=== PATIENT | female | born 1945 | race Caucasian/White ===

== ENCOUNTER 2021-04-21 22:18 | Inpatient (IN) | payer MEDICARE, SELFPAY ==
[2021-04-22 00:30] VITALS: BMI 25.9
[2021-04-22] MEDS: traZODone HCL 50 MG TABLET PO (00:40)
--- NOTE | 2021-04-22 01:36 | PC.ADMIT ---
Admitted a 75 year old female patient dressed in a kimberly per stretcher accompanied by ambulance staff.Patient signs the CV and all other consents.Patient is alert and oriented x4,pleasant on approach and cooperative with the admission process.Patient came from [facility] presented in ED for concern about being home alone and is admitted to hospital.Patient w/ chronic depression and recurring suicidal ideation,although She is currently no active SI and worried if she goes home she would have worse SI and possibly become active.She also doesn't have anyone there to help her at home w/ medication access as it is in a lock box.Patient denies pain or medical concerns.Patient skin is good,no bruises or open areas.No acute SOB, abdomen soft non tender w/ positive bowel sound in 4 quadrants and no edema noted.Patient is independent w/ ADL'S.Patient said she sometimes uses a cane when ambulating since her balance is sometimes not good.She wears eyeglasses and has upper dentures.Patient denies SI/AH/VH.patient contract for safety
[2021-04-22 06:22] LABS: MANUAL DIFF FLAG NO
[2021-04-22 06:24] LABS: Basophils Absolute Auto 0.1 X10*3/uL (0.0-0.2); Basophils Percent Auto 0.8 % (0-2); Eosinophils Absolute Auto 0.3 X10*3/uL (0.0-0.4); Eosinophils Percent Auto 3.3 % (0-4); Hematocrit 41.9 % (37-47); Hemoglobin 14.5 g/dl (12.0-16.0); Imm Gran Abs Auto 0.05 X10*3/uL (0.00-0.03); Imm Gran Pct Auto 0.6 % (0.0-0.4); Lymphocytes Absolute Auto 1.2 X10*3/uL (1.2-4.9); Lymphocytes Percent Auto 15.4 % (20-40); Mean Corpuscular HGB Conc 34.6 g/dl (31.0-35.0); Mean Corpuscular Hemoglobin 30.7 pg (27.0-33.0); Mean Corpuscular Volume 88.8 fL (80-98); Mean Platelet Volume 9.7 fL (9.4-12.3); Monocytes Absolute Auto 0.8 X10*3/uL (0.1-1.2); Monocytes Percent Auto 10.3 % (2-11); Neutrophils Absolute Auto 5.5 X10*3/uL (2.0-8.3); Neutrophils Percent Auto 69.6 % (45-73); Platelet Count 297 X10*3/uL (160-400); Red Blood Count 4.72 X10*6/uL (4.20-5.50); Red Cell Distribution Width 13.8 % (11.0-16.0); White Blood Count 7.9 X10*3/uL (4.8-10.8)
[2021-04-22 06:59] LABS: Alanine Aminotransferase 10 U/L (0-31); Albumin Level 4.1 g/dL (3.5-5.0); Alkaline Phosphatase 53 U/L (39-117); Anion Gap 14 (12-20); Aspartate Amino Transferase 13 U/L (5-31); Bilirubin Total 0.4 mg/dL (0.0-1.0); Blood Urea Nitrogen 14 mg/dL (9-16); Calcium 9.5 mg/dL (8.4-10.2); Carbon Dioxide 22 mmol/L (22-29); Chloride 105 mmol/L (96-108); Cholesterol 167 mg/dL; Creatinine Clr Calc Pharmacy 70.5; Estimated Glomerular Filt Rate > 60; Glucose Fasting 125 mg/dL (60-99); HDL Cholesterol 38 mg/dL; LDL Cholesterol Calculated 103 mg/dl; Potassium 4.1 mmol/L (3.3-5.1); Sodium 137 mmol/L (135-145); Total Protein 6.9 g/dL (6.5-8.0); Triglycerides 132 mg/dL
[2021-04-22 07:19] LABS: Estimated Average Glucose 134 mg/dL; Hemoglobin A1c % 6.3 %
[2021-04-22 07:25] VITALS: BP 184/84; PULSE 66; RESP 17; TEMP 36.4; O2SAT 94
[2021-04-22] MEDS: FLUoxetine HCl 20 MG CAPSULE 60 MG PO (09:48)
[2021-04-22] MEDS: risperiDONE 1 MG TABLET PO (09:50)
[2021-04-22 10:34] VITALS: BP 116/58; PULSE 109
[2021-04-22] MEDS: cloNIDine HCL 0.2 MG TABLET PO (10:34)
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
[2021-04-22 18:00] VITALS: BP 127/93; PULSE 99; RESP 16; TEMP 35.9; O2SAT 97
[2021-04-22] MEDS: Atorvastatin Calcium 20 MG TABLET PO (20:29)
[2021-04-22] MEDS: chlorproMAZINE HCl 25 MG TABLET PO (20:29)
[2021-04-22] MEDS: risperiDONE 2 MG TABLET PO (20:29)
[2021-04-23] MEDS: chlorproMAZINE HCl 25 MG TABLET PO ×3 (03:29→21:12)
[2021-04-23 06:00] VITALS: BP 115/71; PULSE 101; RESP 16; TEMP 37.1; O2SAT 98
[2021-04-23 07:43] LABS: Estimated Average Glucose 137 mg/dL; Hemoglobin A1c % 6.4 %
[2021-04-23 07:48] LABS: Cholesterol 171 mg/dL; HDL Cholesterol 38 mg/dL; LDL Cholesterol Calculated 114 mg/dl; Triglycerides 97 mg/dL
[2021-04-23 08:06] LABS: TSH reflex Free T4 0.53 uIU/mL (0.32-4.0)
[2021-04-23 08:26] LABS: Reflex LDLD? No
[2021-04-23] MEDS: FLUoxetine HCl 20 MG CAPSULE 60 MG PO (09:10)
[2021-04-23] MEDS: risperiDONE 1 MG TABLET PO (09:11)
[2021-04-23 09:12] VITALS: BP 115/71; PULSE 101
[2021-04-23] MEDS: Metoprolol Succinate ER 12.5 MG HALFTAB.ER.24H PO (09:12)
[2021-04-23] MEDS: Fluticasone/Vilanterol 100/25 BLST.W.DEV 1 PUFF INHALE (09:13)
--- NOTE | 2021-04-23 09:51 | P.CNHOSGPS_ITS ---
History of Present Illness Data of Consult Service Date: 04/23/21 Requesting physician: [facility] Psychiatry Primary Care Provider: Josiah Mora MD HPI Reason for consult: medical H+P Medical H+P requested for this 75yo F with COPD, HTN, hx TIA, hx hyperCA/hyperPTH s/p PTX, hx multiple colectomies with eventual reanastomosis for multiple precancerous polyps, s/p PPM for arrhythmia, prediabetes, depression, and PTSD admitted [facility] for SI after her was hospitalized at [facility] for [facility]. Currently denies fever, chills, cough, dyspnea, chest pain, palpitations, abdominal pain, nausea, or vomiting. Review of Systems Review of Systems: Yes all other systems are reviewed and are negative [facility] Medical History COPD (chronic obstructive pulmonary disease) Depression Essential hypertension Hyperlipidemia Prediabetes PTSD (post-traumatic stress disorder) TIA (transient ischemic attack) Tobacco abuse Pertinent family history: mother and father had CHF Surgical History History of colectomy History of parathyroidectomy Social History Household Members: Spouse Housing: Apartment Do you presently have visiting nurse or other home services: No Patient Tobacco Use Status: Current everyday Tobacco user Tobacco use type: Cigarette Smoked in Last 30 Days: Yes e-Cigarette/Vaping Use: Currently Using Patient Interested in Nicotine Replacement: No Patient Given Instructions on How to Stop Smoking: Yes Date Education Initiated: 04/21/21 Second Hand Smoke Exposure: No Use of substances other than those prescribed or required for medical reasons: No Substance Use Type: Prescription Drugs and Caffiene Currently Displaying Signs/Symptoms of Drug Intoxication Withdrawal: No Any prior treatment program specific to substance use: No Have you been hit, kicked, punched, or otherwise hurt by someone within the past year? If so, by whom?: No Do you feel safe in your current relationship?: Yes Is there a partner from a previous relationship who is making you feel unsafe now?: No Are you made to feel afraid or neglected: No Restorationist Healthcare Practices: restoration Advance Directives: No Advance Directives Information Provided: No Do you have thoughts of harming others: None Do you have a plan to hurt others: No Plan Recently lost weight without trying: No How much weight loss: Not applicable Eating poorly because of decreased appetite: No Nutrition screen score: 0 Nutrition Risks: No Nutritional Risk Patient : No : No Poor oral hygiene: No Meds Allergies Allergy/AdvReac Type Severity Reaction Status Date / Time adhesive AdvReac Unknown Verified 04/21/21 23:21 aspirin AdvReac Unknown Verified 04/21/21 23:20 epinephrine AdvReac Unknown Verified 04/21/21 23:21 Active Medications: Current Medications Acetaminophen (Acetaminophen 325 Mg Tablet) 650 mg PO Q6H PRN PRN Reason: Headache/Pain Mild Scale (1-3) Al Hydroxide/Mg Hydroxide (Magnesium Hydrox/Alum Hydrox 30 Ml Oral.Susp) 30 ml PO Q6H PRN PRN Reason: Heartburn/Nausea Atorvastatin Calcium (Atorvastatin Calcium 20 Mg Tablet) 20 mg PO BEDTIME [facility] Last Admin: 04/22/21 20:29 Dose: 20 mg Documented by: Chlorpromazine HCl (Chlorpromazine Hcl 25 Mg Tablet) 25 mg PO Q6H PRN PRN Reason: anxiety Last Admin: 04/23/21 03:29 Dose: 25 mg Documented by: Clonidine HCl (Clonidine Hcl 0.2 Mg Tablet) 0.2 mg PO BID PRN; Protocol PRN Reason: anxiety Last Admin: 04/22/21 10:34 Dose: 0.2 mg Documented by: Fluoxetine HCl (Fluoxetine Hcl 20 Mg Capsule) 60 mg PO DAILY [facility] Last Admin: 04/23/21 09:10 Dose: 60 mg Documented by: Fluticasone/Vilanterol (Fluticasone/Vilanterol 100/25 Blst.W.Dev) 1 puff INHALE RDAILY [facility] Last Admin: 04/23/21 09:13 Dose: 1 puff Documented by: Hydroxyzine HCl (Hydroxyzine Hcl 25 Mg Tablet) 25 mg PO Q6H PRN PRN Reason: Anxiety Magnesium Hydroxide (Milk Of Magnesia 30 Ml Oral.Susp) 30 ml PO DAILY PRN PRN Reason: Constipation Metoprolol Succinate (Metoprolol Succinate Er 12.5 Mg Halftab.Er.24h) 12.5 mg PO DAILY [facility]; Protocol Last Admin: 04/23/21 09:12 Dose: 12.5 mg Documented by: Risperidone (Risperidone 2 Mg Tablet) 2 mg PO BEDTIME [facility] Last Admin: 04/22/21 20:29 Dose: 2 mg Documented by: Risperidone (Risperidone 1 Mg Tablet) 1 mg PO DAILY [facility] Last Admin: 04/23/21 09:11 Dose: 1 mg Documented by: Tiotropium Brady (Tiotropium Brady 18 Mcg Cap.W.Dev) 2 puff INHALE RDAILY [facility] Last Admin: 04/23/21 09:15 Dose: 2 puff Documented by: Trazodone HCl (Trazodone Hcl 50 Mg Tablet) 50 mg PO BEDTIME PRN PRN Reason: Insomnia Last Admin: 04/22/21 00:40 Dose: 50 mg Documented by: Home Medications Medication Instructions Recorded Confirmed Last Taken Type acetaminophen 325 mg tablet 325 mg PO MDD Q 6 HOURS 04/22/21 Unknown History aspirin 81 mg tablet 81 mg PO DAILY 04/22/21 04/22/21 Unknown History clonazepam 0.5 mg tablet 0.5 mg PO DAILY 04/22/21 04/22/21 Unknown History fluoxetine 60 mg tablet 60 mg PO QAM 04/22/21 04/22/21 Unknown History metoprolol tartrate 25 mg tablet 12.5 mg PO DAILY 04/22/21 04/22/21 Unknown History risperidone 1 mg tablet 1 mg PO DAILY 04/22/21 04/22/21 Unknown History risperidone 2 mg tablet 2 mg PO BEDTIME 04/22/21 04/22/21 Unknown History rosuvastatin 10 mg tablet 10 mg PO DAILY 04/22/21 04/22/21 Unknown History tiotropium bromide 1.25 INHALATION DAILY [facility] 2 puffs 04/22/21 Unknown History mcg/actuation mist for inhalation Results Labs CBC and Chem 7: 04/22/21 06:06 04/22/21 06:06 Labs: Laboratory Results - last 24 hr 04/23/21 04/23/21 04/23/21 07:05 07:05 07:05 Estimat Average Glucose 137 Hemoglobin A1c % 6.4 Triglycerides 97 Cholesterol 171 LDL Cholesterol, Calc 114 HDL Cholesterol 38 TSH 0.53 Assessment and Plan (1) COPD (chronic obstructive pulmonary disease): Status: Acute 75yo F with COPD, HTN, hx TIA, hx hyperCA/hyperPTH s/p PTX, hx multiple colectomies with eventual reanastomosis for multiple precancerous polyps, s/p PPM for arrhythmia, prediabetes, depression, and PTSD admitted to [facility] for SI # COPD - continue Spiriva, Breo; add prn albuterol # HTN - continue metoprolol # HLD # hx TIA - continue statin # tobacco abuse - smokes 6-8 cig/d; declines NRT # depression/PTSD - medications as per psychiatry team Thank you for this consultation. We are signing off for now. Please get in touch with us if any new medical issues arise. Physical Exam Vital Signs: Last Vital Signs Temp 96.7 F L 04/22/21 18:00 Pulse 101 H 04/23/21 09:12 Resp 16 04/22/21 18:00 BP 115/71 04/23/21 09:12 Pulse Ox 97 04/22/21 18:00 Body Mass Index 25.9 Gen: in no acute distress HEENT: sclera anicteric, moist mucus membranes Neck: supple, no LAD or goiter Lungs: clear to auscultation bilaterally Heart: regular rate and rhythm, no murmurs Abd: soft, non-tender, non-distended Ext: no edema Skin: warm/well-perfused Neuro: alert and oriented x3, no focal findings Psych: appropriate affect Neuro Cranial nerves: Yes CN's II-XII intact bilaterally
--- NOTE | 2021-04-23 12:58 | P.PNPSI_ITS ---
Subjective Subjective Date of Service: 04/23/21 Reason For Visit: depressive disorder Interim History: Patient seen and discussed with team. Patient evaluated this morning and upon interview she reports she is feeling better. Found out her is now at [facility] and the blood clot is dissipating, he is breathing better. Daughter is coming to visit them both, should be in [place] today. Says the thorazine helps, im feeling okay. Says sleep was poor, I had a rough night, woke up from a terrible dream and felt very disoriented. Discussed that she is adjusting to a new environment, wants to trial melatonin as she has a friend who uses it. Still worrying about her , as he may need surgery. In the milieu, patient is safe and appropriate in behavior. Denies SI/SIB/HI upon inquiry. Denies irritability or assaultive ideation. Says she feels safe. Medication Compliance: Yes Side effects from medications: No Attending Groups: Yes Review of Systems Acute medical concerns: No Medical Review of Systems: unchanged Mental Status Exam Mental Status Exam Narrative: A&O. Well groomed, good hygiene, normal body habitus. Good eye contact, attentive. No Tics or Tremors. No abnormal involuntary movements. Calm, cooperative, engaged. Non-pressured speech, spontaneous with regular rate and rhythm, normal volume and prosody. No prolonged speech latency or dysarthria. Mood is ?depressed,? affect is anxious, nervous. Endorses SI with plan to OD on medications and intent if she is discharged home. Denies SIB/HI upon inquiry. Denies A/VH or delusional thought content. Thoughts are coherent, organized. No known cognitive or memory impairment. Insight/ Judgment fair and adequate. Diagnostics Vital Signs (24Hr): Vital Signs - 24 hr 04/22/21 18:00 04/23/21 06:00 04/23/21 09:12 Temperature 96.7 F L 98.8 F Pulse Rate 99 101 H 101 H Respiratory Rate 16 16 Blood Pressure 127/93 H 115/71 115/71 Pulse Oximetry 97 98 Body Mass Index 25.9 Labs Results: 04/22/21 06:06 04/22/21 06:06 Labs: Laboratory Results - last 48 hr 04/22/21 04/22/21 04/22/21 06:06 06:06 06:06 WBC 7.9 RBC 4.72 Hgb 14.5 Hct 41.9 MCV 88.8 MCH 30.7 MCHC 34.6 RDW 13.8 Plt Count 297 MPV 9.7 Immature Gran % (Auto) 0.6 H Neut % (Auto) 69.6 Lymph % (Auto) 15.4 L Roberts % (Auto) 10.3 Eos % (Auto) 3.3 Baso % (Auto) 0.8 Lymph # (Auto) 1.2 Roberts # (Auto) 0.8 Eos # (Auto) 0.3 Baso # (Auto) 0.1 Abs Immat Gran (auto) 0.05 H Absolute Neuts (auto) 5.5 Absolute Nucleated RBC 0.000 Nucleated RBC % (auto) 0.0 Sodium 137 Potassium 4.1 Chloride 105 Carbon Dioxide 22 Anion Gap 14 BUN 14 Creatinine 0.72 Estim Creat Clear Calc 70.5 Estimated GFR > 60 Fasting Glucose 125 H Estimat Average Glucose 134 Hemoglobin A1c % 6.3 Calcium 9.5 Total Bilirubin 0.4 AST 13 ALT 10 Alkaline Phosphatase 53 Total Protein 6.9 Albumin 4.1 Triglycerides 132 Cholesterol 167 LDL Cholesterol, Calc 103 HDL Cholesterol 38 TSH 04/23/21 04/23/21 04/23/21 07:05 07:05 07:05 WBC RBC Hgb Hct MCV MCH MCHC RDW Plt Count MPV Immature Gran % (Auto) Neut % (Auto) Lymph % (Auto) Roberts % (Auto) Eos % (Auto) Baso % (Auto) Lymph # (Auto) Roberts # (Auto) Eos # (Auto) Baso # (Auto) Abs Immat Gran (auto) Absolute Neuts (auto) Absolute Nucleated RBC Nucleated RBC % (auto) Sodium Potassium Chloride Carbon Dioxide Anion Gap BUN Creatinine Estim Creat Clear Calc Estimated GFR Fasting Glucose Estimat Average Glucose 137 Hemoglobin A1c % 6.4 Calcium Total Bilirubin AST ALT Alkaline Phosphatase Total Protein Albumin Triglycerides 97 Cholesterol 171 LDL Cholesterol, Calc 114 HDL Cholesterol 38 TSH 0.53 Medications Medications Current Medications Acetaminophen (Acetaminophen 325 Mg Tablet) 650 mg PO Q6H PRN PRN Reason: Headache/Pain Mild Scale (1-3) Al Hydroxide/Mg Hydroxide (Magnesium Hydrox/Alum Hydrox 30 Ml Oral.Susp) 30 ml PO Q6H PRN PRN Reason: Heartburn/Nausea Albuterol Sulfate (Albuterol Sulfate 90 Mcg 8 Gm Inhaler) 2 puff INHALE Q4H PRN PRN Reason: Shortness of Breath/Wheezing Atorvastatin Calcium (Atorvastatin Calcium 20 Mg Tablet) 20 mg PO BEDTIME [facility]JA Last Admin: 04/22/21 20:29 Dose: 20 mg Documented by: Chlorpromazine HCl (Chlorpromazine Hcl 25 Mg Tablet) 25 mg PO Q6H PRN PRN Reason: anxiety Last Admin: 04/23/21 03:29 Dose: 25 mg Documented by: Clonidine HCl (Clonidine Hcl 0.2 Mg Tablet) 0.2 mg PO BID PRN; Protocol PRN Reason: anxiety Last Admin: 04/22/21 10:34 Dose: 0.2 mg Documented by: Fluoxetine HCl (Fluoxetine Hcl 20 Mg Capsule) 60 mg PO DAILY [facility] Last Admin: 04/23/21 09:10 Dose: 60 mg Documented by: Fluticasone/Vilanterol (Fluticasone/Vilanterol 100/25 Blst.W.Dev) 1 puff INHALE RDAILY [facility] Last Admin: 04/23/21 09:13 Dose: 1 puff Documented by: Hydroxyzine HCl (Hydroxyzine Hcl 25 Mg Tablet) 25 mg PO Q6H PRN PRN Reason: Anxiety Magnesium Hydroxide (Milk Of Magnesia 30 Ml Oral.Susp) 30 ml PO DAILY PRN PRN Reason: Constipation Melatonin (Melatonin 3 Mg Tablet) 3 mg PO BEDTIME [facility] Metoprolol Succinate (Metoprolol Succinate Er 12.5 Mg Halftab.Er.24h) 12.5 mg PO DAILY [facility]; Protocol Last Admin: 04/23/21 09:12 Dose: 12.5 mg Documented by: Risperidone (Risperidone 2 Mg Tablet) 2 mg PO BEDTIME [facility] Last Admin: 04/22/21 20:29 Dose: 2 mg Documented by: Risperidone (Risperidone 1 Mg Tablet) 1 mg PO DAILY [facility] Last Admin: 04/23/21 09:11 Dose: 1 mg Documented by: Tiotropium [place] (Tiotropium [place] 18 Mcg Cap.W.Dev) 2 puff INHALE RDAILY [facility] Last Admin: 04/23/21 09:15 Dose: 2 puff Documented by: Trazodone HCl (Trazodone Hcl 50 Mg Tablet) 50 mg PO BEDTIME PRN PRN Reason: Insomnia Last Admin: 04/22/21 00:40 Dose: 50 mg Documented by: Allergies Allergies Allergy/AdvReac Type Severity Reaction Status Date / Time adhesive AdvReac Unknown Verified 04/21/21 23:21 aspirin AdvReac Unknown Verified 04/21/21 23:20 epinephrine AdvReac Unknown Verified 04/21/21 23:21 Assessment & Plan Assessment & Plan (1) MDD (major depressive disorder), recurrent episode, moderate: Status: Acute Code(s): F33.1 - Major depressive disorder, recurrent, moderate (2) PTSD (post-traumatic stress disorder): Status: Acute Code(s): F43.10 - Post-traumatic stress disorder, unspecified Assessment and Plan: Pt is a 75 y.o. Who carries a dx of MDD recurrent and PTSD. She presented to [facility] on 04/[facility]21 after her contacted [facility] to do a wellness check on her after he was hospitalized at [place] for thrombosis. Katheryn endorsed sx of SI without plan or intent and increased anxiety. She current presents with sx of anxiety, SI with plan to OD on medication and intent and depressed mood. Has long hx of chronic depression, feelings of guilt and hopelessness. Hx of multiple hospitalizations for SI and plan to OD on medications. Meds are kept in locked box at home. No substance use or alcohol abuse reported. Plan: Continue OP regimen of risperidone, prozac, and PRN clonidine due to reported benefit for mood and anxiety sx. Start thorazine 25 mg Q6H PRN for anxiety, perseverative suicidal thoughts as she reports past benefit on this medication. Pt reports feeling safe in the hospital. Start melatonin 3 mg QHS for sleep maintenance. Monitor response to medications. Monitor for safety in the milieu. Discharge on stabilization. Patient seen. Chart reviewed. Discussed with team. Obtain collateral contact info?as needed Greater than 50% of the session was spent on counseling and/or coordination of care Reason for contiued inpatient stay Substantial Risk for: harm to self, rapid decompensation and med/psych decompensation
[2021-04-23 18:00] VITALS: BP 127/63; PULSE 80; RESP 20; TEMP 36.3; O2SAT 98
[2021-04-23] MEDS: risperiDONE 2 MG TABLET PO (21:08)
[2021-04-23] MEDS: Atorvastatin Calcium 20 MG TABLET PO (21:08)
[2021-04-23] MEDS: Melatonin 3 MG TABLET PO (21:08)
[2021-04-24 06:00] VITALS: BP 130/67; PULSE 104; RESP 14; TEMP 36.7; O2SAT 94
[2021-04-24] MEDS: risperiDONE 1 MG TABLET PO (08:02)
[2021-04-24] MEDS: FLUoxetine HCl 20 MG CAPSULE 60 MG PO (08:03)
[2021-04-24 09:05] VITALS: BP 130/67; PULSE 104
[2021-04-24] MEDS: Metoprolol Succinate ER 12.5 MG HALFTAB.ER.24H PO (09:05)
--- NOTE | 2021-04-24 14:05 | HO.PSYCHPN ---
Subjective Subjective Date of Service: 04/24/21 Reason For Visit: depressive disorder Subjective Notes: Conditional Voluntary Interim History: The nursing staff reported the patient slept well, she was able participating a few groups. On interview, the patient denies new symptoms she feels anxious and dysphoric but she is able to contract for safety. She reported that she is anxious since her is going for a procedure today at [facility]. She agreed to continue treatment. Medication Compliance: Yes Side effects from medications: No Attending Groups: Yes Review of Systems Acute medical concerns: No Medical Review of Systems: unchanged Mental Status Exam Mental Status Exam Patient Appearance: Well Grooomed Patient Orientation: Person and Situation Level of Consciousness: Awake and Appropriate Patient Behavior: Cooperative Mood Description: Depressed Affect Description: Constricted Patient Cognition Impaired: No Ability to Follow Directions: Good Speech Pattern: Clear Hallucinations: None Delusions: Not Present Thought Process: Goal Oriented Thought Content: positive for Circumstantial Depressive Symptoms: Increased Anxiety, Difficulty Sleeping and Changes in Appetite Judgement: Fair Diagnostics Vital Signs (24Hr): Vital Signs - 24 hr 04/23/21 18:00 04/24/21 06:00 04/24/21 09:05 Temperature 97.3 F 98.0 F Pulse Rate 80 104 H 104 H Respiratory Rate 20 14 Blood Pressure 127/63 130/67 130/67 Pulse Oximetry 98 94 Body Mass Index 25.9 Labs Results: 04/22/21 06:06 04/22/21 06:06 Labs: Laboratory Results - last 48 hr 04/23/21 04/23/21 04/23/21 07:05 07:05 07:05 Estimat Average Glucose 137 Hemoglobin A1c % 6.4 Triglycerides 97 Cholesterol 171 LDL Cholesterol, Calc 114 HDL Cholesterol 38 TSH 0.53 Medications Medications Current Medications Acetaminophen (Acetaminophen 325 Mg Tablet) 650 mg PO Q6H PRN PRN Reason: Headache/Pain Mild Scale (1-3) Al Hydroxide/Mg Hydroxide (Magnesium Hydrox/Alum Hydrox 30 Ml Oral.Susp) 30 ml PO Q6H PRN PRN Reason: Heartburn/Nausea Albuterol Sulfate (Albuterol Sulfate 90 Mcg 8 Gm Inhaler) 2 puff INHALE Q4H PRN PRN Reason: Shortness of Breath/Wheezing Atorvastatin Calcium (Atorvastatin Calcium 20 Mg Tablet) 20 mg PO BEDTIME [facility] Last Admin: 04/23/21 21:08 Dose: 20 mg Documented by: Chlorpromazine HCl (Chlorpromazine Hcl 25 Mg Tablet) 25 mg PO Q6H PRN PRN Reason: anxiety Last Admin: 04/23/21 21:12 Dose: 25 mg Documented by: Clonidine HCl (Clonidine Hcl 0.2 Mg Tablet) 0.2 mg PO BID PRN; Protocol PRN Reason: anxiety Last Admin: 04/22/21 10:34 Dose: 0.2 mg Documented by: Fluoxetine HCl (Fluoxetine Hcl 20 Mg Capsule) 60 mg PO DAILY [facility] Last Admin: 04/24/21 08:03 Dose: 60 mg Documented by: Fluticasone/Vilanterol (Fluticasone/Vilanterol 100/25 Blst.W.Dev) 1 puff INHALE RDAILY [facility] Last Admin: 04/23/21 09:13 Dose: 1 puff Documented by: Hydroxyzine HCl (Hydroxyzine Hcl 25 Mg Tablet) 25 mg PO Q6H PRN PRN Reason: Anxiety Magnesium Hydroxide (Milk Of Magnesia 30 Ml Oral.Susp) 30 ml PO DAILY PRN PRN Reason: Constipation Melatonin (Melatonin 3 Mg Tablet) 3 mg PO BEDTIME [facility] Last Admin: 04/23/21 21:08 Dose: 3 mg Documented by: Metoprolol Succinate (Metoprolol Succinate Er 12.5 Mg Halftab.Er.24h) 12.5 mg PO DAILY [facility]; Protocol Last Admin: 04/24/21 09:05 Dose: 12.5 mg Documented by: Risperidone (Risperidone 2 Mg Tablet) 2 mg PO BEDTIME [facility] Last Admin: 04/23/21 21:08 Dose: 2 mg Documented by: Risperidone (Risperidone 1 Mg Tablet) 1 mg PO DAILY [facility] Last Admin: 04/24/21 08:02 Dose: 1 mg Documented by: Tiotropium [place] (Tiotropium [place] 18 Mcg Cap.W.Dev) 2 puff INHALE RDAILY [facility] Last Admin: 04/23/21 09:15 Dose: 2 puff Documented by: Trazodone HCl (Trazodone Hcl 50 Mg Tablet) 50 mg PO BEDTIME PRN PRN Reason: Insomnia Last Admin: 04/22/21 00:40 Dose: 50 mg Documented by: Allergies Allergies Allergy/AdvReac Type Severity Reaction Status Date / Time adhesive AdvReac Unknown Verified 04/21/21 23:21 aspirin AdvReac Unknown Verified 04/21/21 23:20 epinephrine AdvReac Unknown Verified 04/21/21 23:21 Assessment & Plan Assessment & Plan (1) MDD (major depressive disorder), recurrent episode, moderate: Status: Acute Code(s): F33.1 - Major depressive disorder, recurrent, moderate (2) PTSD (post-traumatic stress disorder): Status: Acute Code(s): F43.10 - Post-traumatic stress disorder, unspecified Assessment and Plan: Pt is a 75 y.o. Who carries a dx of MDD recurrent and PTSD. She presented to [facility] crisis on 04/20/21 after her contacted [facility] to do a wellness check on her after he was hospitalized at [place] for thrombosis. Katheryn endorsed sx of SI without plan or intent and increased anxiety. She current presents with sx of anxiety, SI with plan to OD on medication and intent and depressed mood. Has long hx of chronic depression, feelings of guilt and hopelessness. Hx of multiple hospitalizations for SI and plan to OD on medications. Meds are kept in locked box at home. No substance use or alcohol abuse reported. Plan: Continue OP regimen of risperidone, prozac, and PRN clonidine due to reported benefit for mood and anxiety sx. Start thorazine 25 mg Q6H PRN for anxiety, perseverative suicidal thoughts as she reports past benefit on this medication. Pt reports feeling safe in the hospital. Start melatonin 3 mg QHS for sleep maintenance. Monitor response to medications. Monitor for safety in the milieu. Discharge on stabilization. Patient seen. Chart reviewed. Discussed with team. Obtain collateral contact info?as needed Greater than 50% of the session was spent on counseling and/or coordination of care Reason for contiued inpatient stay Substantial Risk for: harm to self, inability to function, rapid decompensation and med/psych decompensation
--- NOTE | 2021-04-24 15:06 | MHC.CLN ---
NUTRITION DIET=REGULAR. DIETARY SUPPLEMENT PER PROVIDER ENSURE BID TO PROVIDE 700 KCAL, 40 G PROTEIN. SUSPECT DECLINE IN RECENT INTAKE WITH 'S HOSPITALIZATION.
[2021-04-24 18:00] VITALS: BP 183/88; PULSE 80; RESP 18; TEMP 36.9; O2SAT 94
[2021-04-24] MEDS: Melatonin 3 MG TABLET PO (20:25)
[2021-04-24] MEDS: Atorvastatin Calcium 20 MG TABLET PO (20:26)
[2021-04-24] MEDS: risperiDONE 2 MG TABLET PO (20:26)
[2021-04-24] MEDS: chlorproMAZINE HCl 25 MG TABLET PO (21:13)
[2021-04-24 23:23] VITALS: BP 174/83; PULSE 76
[2021-04-24] MEDS: traZODone HCL 50 MG TABLET PO (23:23)
[2021-04-24] MEDS: cloNIDine HCL 0.2 MG TABLET PO (23:23)
[2021-04-25] MEDS: risperiDONE 1 MG TABLET PO (07:56)
[2021-04-25] MEDS: FLUoxetine HCl 20 MG CAPSULE 60 MG PO (07:56)
[2021-04-25] MEDS: Metoprolol Succinate ER 12.5 MG HALFTAB.ER.24H PO (07:56)
[2021-04-25] MEDS: Fluticasone/Vilanterol 100/25 BLST.W.DEV 1 PUFF INHALE (08:19)
[2021-04-25 08:27] VITALS: BP 111/60; PULSE 80; RESP 16; TEMP 36.6; O2SAT 99
--- NOTE | 2021-04-25 15:03 | P.PNPSI_ITS ---
Subjective Subjective Date of Service: 04/25/21 Reason For Visit: depressive disorder Interim History: The nursing staff reported that the patient slept well. But later she needed cleaning and trazodone for sleep at 23:30. She was pleasant out for breakfast and apparently historically she did well with ECT at [facility] but she does not want to have this treatment at this facility. On interview the patient denies new symptoms she stated that her is not going through the surgery and she feels relieved. The director of social work reported that the patient is dependent upon her elderly for all her tasks. We will get a family meeting soon Mental Status Exam Mental Status Exam Patient Appearance: Well Grooomed Patient Orientation: Person Level of Consciousness: Awake Patient Behavior: Appropriate Mood Description: Calm Affect Description: Depressed Patient Cognition Impaired: Yes Ability to Follow Directions: Good Speech Pattern: Clear Memory Description: Intact Hallucinations: None Delusions: Not Present Thought Content: positive for Poverty of Content Depressive Symptoms: Increased Anxiety Judgement: Fair Diagnostics Vital Signs (24Hr): Vital Signs - 24 hr 04/24/21 18:00 04/24/21 23:23 04/25/21 08:27 Temperature 98.5 F 97.9 F Pulse Rate 80 76 80 Respiratory Rate 18 16 Blood Pressure 183/88 H 174/83 H 111/60 Pulse Oximetry 94 99 Body Mass Index 25.9 Labs Results: 04/22/21 06:06 04/22/21 06:06 Medications Medications Current Medications Acetaminophen (Acetaminophen 325 Mg Tablet) 650 mg PO Q6H PRN PRN Reason: Headache/Pain Mild Scale (1-3) Al Hydroxide/Mg Hydroxide (Magnesium Hydrox/Alum Hydrox 30 Ml Oral.Susp) 30 ml PO Q6H PRN PRN Reason: Heartburn/Nausea Albuterol Sulfate (Albuterol Sulfate 90 Mcg 8 Gm Inhaler) 2 puff INHALE Q4H PRN PRN Reason: Shortness of Breath/Wheezing Atorvastatin Calcium (Atorvastatin Calcium 20 Mg Tablet) 20 mg PO BEDTIME [facility] Last Admin: 04/24/21 20:26 Dose: 20 mg Documented by: Chlorpromazine HCl (Chlorpromazine Hcl 25 Mg Tablet) 25 mg PO Q6H PRN PRN Reason: anxiety Last Admin: 04/24/21 21:13 Dose: 25 mg Documented by: Clonidine HCl (Clonidine Hcl 0.2 Mg Tablet) 0.2 mg PO BID PRN; Protocol PRN Reason: anxiety Last Admin: 04/24/21 23:23 Dose: 0.2 mg Documented by: Fluoxetine HCl (Fluoxetine Hcl 20 Mg Capsule) 60 mg PO DAILY [facility] Last Admin: 04/25/21 07:56 Dose: 60 mg Documented by: Fluticasone/Vilanterol (Fluticasone/Vilanterol 100/25 Blst.W.Dev) 1 puff INHALE RDAILY [facility] Last Admin: 04/25/21 08:19 Dose: 1 puff Documented by: Hydroxyzine HCl (Hydroxyzine Hcl 25 Mg Tablet) 25 mg PO Q6H PRN PRN Reason: Anxiety Magnesium Hydroxide (Milk Of Magnesia 30 Ml Oral.Susp) 30 ml PO DAILY PRN PRN Reason: Constipation Melatonin (Melatonin 3 Mg Tablet) 3 mg PO BEDTIME [facility] Last Admin: 04/24/21 20:25 Dose: 3 mg Documented by: Metoprolol Succinate (Metoprolol Succinate Er 12.5 Mg Halftab.Er.24h) 12.5 mg PO DAILY [facility]; Protocol Last Admin: 04/25/21 07:56 Dose: 12.5 mg Documented by: Risperidone (Risperidone 2 Mg Tablet) 2 mg PO BEDTIME [facility] Last Admin: 04/24/21 20:26 Dose: 2 mg Documented by: Risperidone (Risperidone 1 Mg Tablet) 1 mg PO DAILY [facility] Last Admin: 04/25/21 07:56 Dose: 1 mg Documented by: Tiotropium [place] (Tiotropium [place] 18 Mcg Cap.W.Dev) 2 puff INHALE RDAILY [facility] Last Admin: 04/25/21 08:19 Dose: 2 puff Documented by: Trazodone HCl (Trazodone Hcl 50 Mg Tablet) 50 mg PO BEDTIME PRN PRN Reason: Insomnia Last Admin: 04/24/21 23:23 Dose: 50 mg Documented by: Allergies Allergies Allergy/AdvReac Type Severity Reaction Status Date / Time adhesive AdvReac Unknown Verified 04/21/21 23:21 aspirin AdvReac Unknown Verified 04/21/21 23:20 epinephrine AdvReac Unknown Verified 04/21/21 23:21 Assessment & Plan Assessment & Plan (1) MDD (major depressive disorder), recurrent episode, moderate: Status: Acute Code(s): F33.1 - Major depressive disorder, recurrent, moderate (2) PTSD (post-traumatic stress disorder): Status: Acute Code(s): F43.10 - Post-traumatic stress disorder, unspecified Assessment and Plan: Pt is a 75 y.o. Who carries a dx of MDD recurrent and PTSD. [facility] after her contacted [place] [employer] to do a wellness check on her after he was hospitalized at [place] for thrombosis. Katheryn endorsed sx of SI without plan or intent and increased anxiety. She current presents with sx of anxiety, SI with plan to OD on medication and intent and depressed mood. Has long hx of chronic depression, feelings of guilt and hopelessness. Hx of multiple hospitalizations for SI and plan to OD on medications. Meds are kept in locked box at home. No substance use or alcohol abuse reported. Plan: Continue OP regimen of risperidone, prozac, and PRN clonidine due to reported benefit for mood and anxiety sx. Start thorazine 25 mg Q6H PRN for anxiety, perseverative suicidal thoughts as she reports past benefit on this medication. Pt reports feeling safe in the hospital. Start melatonin 3 mg QHS for sleep maintenance. Monitor response to medications. Monitor for safety in the milieu. Discharge on stabilization. Patient seen. Chart reviewed. Discussed with team. Obtain collateral contact info?as needed I spent minutes with the patient and/or on the patient floor today, greater than?50% of which was spent counseling/coordinating care. Reason for contiued inpatient stay Substantial Risk for: harm to others, rapid decompensation and med/psych decompensation
[2021-04-25] MEDS: Melatonin 3 MG TABLET PO (20:20)
[2021-04-25] MEDS: Atorvastatin Calcium 20 MG TABLET PO (20:20)
[2021-04-25] MEDS: risperiDONE 2 MG TABLET PO (20:20)
[2021-04-25 20:26] VITALS: PULSE 89; TEMP 37.4; O2SAT 99
[2021-04-25] MEDS: chlorproMAZINE HCl 25 MG TABLET PO (20:54)
[2021-04-26 08:23] VITALS: BP 123/62; PULSE 88; RESP 16; TEMP 36.8; O2SAT 92
[2021-04-26] MEDS: Fluticasone/Vilanterol 100/25 BLST.W.DEV 1 PUFF INHALE (09:31)
[2021-04-26] MEDS: FLUoxetine HCl 20 MG CAPSULE 60 MG PO (09:31)
[2021-04-26] MEDS: risperiDONE 1 MG TABLET PO (09:32)
[2021-04-26 09:33] VITALS: BP 123/62; PULSE 88
[2021-04-26] MEDS: Metoprolol Succinate ER 12.5 MG HALFTAB.ER.24H PO (09:33)
--- NOTE | 2021-04-26 15:18 | HO.PSYCHPN ---
Subjective Subjective Date of Service: 04/26/21 Reason For Visit: depressive disorder Subjective Notes: Conditional Voluntary Interim History: The nursing staff reported that the patient slept well she had Thorazine p.r.n. with for improvement. She also reported that she is a smoker but she does not want to use the nicotine gum. The social services director reported that her daughter was going to come to visit her today. On interview, the patient reports that her mood is better she is worried because she is going to have ECT next Saturday at [facility] and she does not want to miss that appointment. We discussed that in the eventuality that she is not discharged yet we can do the treatment here. We will contact Dr. Mejia at [facility]. Review of Systems Acute medical concerns: No Medical Review of Systems: unchanged Mental Status Exam Mental Status Exam Patient Appearance: Well Grooomed Patient Orientation: Person and Situation Level of Consciousness: Awake and Appropriate Patient Behavior: Cooperative Mood Description: Depressed Affect Description: Constricted Patient Cognition Impaired: Yes Ability to Follow Directions: Good Speech Pattern: Clear Delusions: Not Present Thought Process: Linear Thought Content: positive for Circumstantial and positive for Preoccupation Judgement: Fair Diagnostics Vital Signs (24Hr): Vital Signs - 24 hr 04/25/21 20:26 04/26/21 08:23 04/26/21 09:33 Temperature 99.4 F 98.2 F Pulse Rate 89 88 88 Respiratory Rate 16 Blood Pressure 123/62 123/62 Pulse Oximetry 99 92 Body Mass Index 25.9 Labs Results: 04/22/21 06:06 04/22/21 06:06 Medications Medications Current Medications Acetaminophen (Acetaminophen 325 Mg Tablet) 650 mg PO Q6H PRN PRN Reason: Headache/Pain Mild Scale (1-3) Al Hydroxide/Mg Hydroxide (Magnesium Hydrox/Alum Hydrox 30 Ml Oral.Susp) 30 ml PO Q6H PRN PRN Reason: Heartburn/Nausea Albuterol Sulfate (Albuterol Sulfate 90 Mcg 8 Gm Inhaler) 2 puff INHALE Q4H PRN PRN Reason: Shortness of Breath/Wheezing Atorvastatin Calcium (Atorvastatin Calcium 20 Mg Tablet) 20 mg PO BEDTIME [facility] Last Admin: 04/25/21 20:20 Dose: 20 mg Documented by: Chlorpromazine HCl (Chlorpromazine Hcl 25 Mg Tablet) 25 mg PO Q6H PRN PRN Reason: anxiety Last Admin: 04/25/21 20:54 Dose: 25 mg Documented by: Clonidine HCl (Clonidine Hcl 0.2 Mg Tablet) 0.2 mg PO BID PRN; Protocol PRN Reason: anxiety Last Admin: 04/24/21 23:23 Dose: 0.2 mg Documented by: Fluoxetine HCl (Fluoxetine Hcl 20 Mg Capsule) 60 mg PO DAILY [facility] Last Admin: 04/26/21 09:31 Dose: 60 mg Documented by: Fluticasone/Vilanterol (Fluticasone/Vilanterol 100/25 Blst.W.Dev) 1 puff INHALE RDAILY [facility] Last Admin: 04/26/21 09:31 Dose: 1 puff Documented by: Hydroxyzine HCl (Hydroxyzine Hcl 25 Mg Tablet) 25 mg PO Q6H PRN PRN Reason: Anxiety Magnesium Hydroxide (Milk Of Magnesia 30 Ml Oral.Susp) 30 ml PO DAILY PRN PRN Reason: Constipation Melatonin (Melatonin 3 Mg Tablet) 3 mg PO BEDTIME [facility] Last Admin: 04/25/21 20:20 Dose: 3 mg Documented by: Metoprolol Succinate (Metoprolol Succinate Er 12.5 Mg Halftab.Er.24h) 12.5 mg PO DAILY [facility]; Protocol Last Admin: 04/26/21 09:33 Dose: 12.5 mg Documented by: Risperidone (Risperidone 2 Mg Tablet) 2 mg PO BEDTIME [facility] Last Admin: 04/25/21 20:20 Dose: 2 mg Documented by: Risperidone (Risperidone 1 Mg Tablet) 1 mg PO DAILY [facility] Last Admin: 04/26/21 09:32 Dose: 1 mg Documented by: Tiotropium [place] (Tiotropium [place] 18 Mcg Cap.W.Dev) 2 puff INHALE RDAILY [facility] Last Admin: 04/26/21 09:31 Dose: 2 puff Documented by: Trazodone HCl (Trazodone Hcl 50 Mg Tablet) 50 mg PO BEDTIME PRN PRN Reason: Insomnia Last Admin: 04/24/21 23:23 Dose: 50 mg Documented by: Allergies Allergies Allergy/AdvReac Type Severity Reaction Status Date / Time adhesive AdvReac Unknown Verified 04/21/21 23:21 aspirin AdvReac Unknown Verified 04/21/21 23:20 epinephrine AdvReac Unknown Verified 04/21/21 23:21 Assessment & Plan Assessment & Plan (1) MDD (major depressive disorder), recurrent episode, moderate: Status: Acute Code(s): F33.1 - Major depressive disorder, recurrent, moderate (2) PTSD (post-traumatic stress disorder): Status: Acute Code(s): F43.10 - Post-traumatic stress disorder, unspecified Assessment and Plan: Pt is a 75 y.o. Who carries a dx of MDD recurrent and PTSD. She presented to [facility] on 04/20/21 after her contacted [facility] to do a wellness check on her after he was hospitalized at [place] for thrombosis. Katheryn endorsed sx of SI without plan or intent and increased anxiety. She current presents with sx of anxiety, SI with plan to OD on medication and intent and depressed mood. Has long hx of chronic depression, feelings of guilt and hopelessness. Hx of multiple hospitalizations for SI and plan to OD on medications. Meds are kept in locked box at home. No substance use or alcohol abuse reported. Plan: Continue same treatment. Gather collateral information I spent minutes with the patient and/or on the patient floor today, greater than?50% of which was spent counseling/coordinating care. Reason for contiued inpatient stay Substantial Risk for: harm to self, inability to function, rapid decompensation and med/psych decompensation
[2021-04-26 18:00] VITALS: BP 166/76; PULSE 79; RESP 19; TEMP 36.2; O2SAT 95
[2021-04-26] MEDS: risperiDONE 2 MG TABLET PO (20:46)
[2021-04-26] MEDS: Atorvastatin Calcium 20 MG TABLET PO (20:46)
[2021-04-26] MEDS: Melatonin 3 MG TABLET PO (20:46)
[2021-04-26] MEDS: chlorproMAZINE HCl 25 MG TABLET PO (20:48)
[2021-04-27 06:00] VITALS: BP 141/63; PULSE 94; RESP 16; TEMP 36; O2SAT 97
[2021-04-27 07:00] VITALS: BMI 26.2
[2021-04-27] MEDS: FLUoxetine HCl 20 MG CAPSULE 60 MG PO (09:24)
[2021-04-27 09:25] VITALS: BP 141/63; PULSE 94
[2021-04-27] MEDS: risperiDONE 1 MG TABLET PO (09:25)
[2021-04-27] MEDS: Metoprolol Succinate ER 12.5 MG HALFTAB.ER.24H PO (09:25)
[2021-04-27] MEDS: Fluticasone/Vilanterol 100/25 BLST.W.DEV 1 PUFF INHALE (09:26)
--- NOTE | 2021-04-27 12:02 | P.PNPSI_ITS ---
Subjective Subjective Date of Service: 04/27/21 Reason For Visit: depressive disorder Subjective Notes: Conditional Voluntary Interim History: The nursing staff reported that the patient is pleasant and cooperative, very independent to her ADL less. Last night she to her Thorazine and it helps to sleep. Yesterday, her daughter reported that her will go to rehab and the patient is scheduled for ECT and we [facility] next Saturday but most likely if she is here, will have the procedure here. On interview, the patient denies new symptoms she looks pleasantly confused with minimal dysphoria Medication Compliance: Yes Side effects from medications: No Attending Groups: Yes Review of Systems Acute medical concerns: No Medical Review of Systems: unchanged Mental Status Exam Mental Status Exam Patient Appearance: Well Grooomed Patient Orientation: Person Level of Consciousness: Awake and Appropriate Patient Behavior: Cooperative and Good Eye Contact Mood Description: Depressed Affect Description: Constricted Patient Cognition Impaired: Yes Ability to Follow Directions: Good Speech Pattern: Clear Memory Description: Intact Hallucinations: None Delusions: Not Present Thought Process: Goal Oriented Thought Content: positive for Circumstantial Depressive Symptoms: Increased Anxiety and Insomnia Judgement: Fair Diagnostics Vital Signs (24Hr): Vital Signs - 24 hr 04/26/21 18:00 04/27/21 06:00 04/27/21 09:25 Temperature 97.2 F 96.8 F Pulse Rate 79 94 94 Respiratory Rate 19 16 Blood Pressure 166/76 H 141/63 H 141/63 H Pulse Oximetry 95 97 Body Mass Index 26.2 Labs Results: 04/22/21 06:06 04/22/21 06:06 Medications Medications Current Medications Acetaminophen (Acetaminophen 325 Mg Tablet) 650 mg PO Q6H PRN PRN Reason: Headache/Pain Mild Scale (1-3) Al Hydroxide/Mg Hydroxide (Magnesium Hydrox/Alum Hydrox 30 Ml Oral.Susp) 30 ml PO Q6H PRN PRN Reason: Heartburn/Nausea Albuterol Sulfate (Albuterol Sulfate 90 Mcg 8 Gm Inhaler) 2 puff INHALE Q4H PRN PRN Reason: Shortness of Breath/Wheezing Atorvastatin Calcium (Atorvastatin Calcium 20 Mg Tablet) 20 mg PO BEDTIME [facility] Last Admin: 04/26/21 20:46 Dose: 20 mg Documented by: Chlorpromazine HCl (Chlorpromazine Hcl 25 Mg Tablet) 25 mg PO Q6H PRN PRN Reason: anxiety Last Admin: 04/26/21 20:48 Dose: 25 mg Documented by: Clonidine HCl (Clonidine Hcl 0.2 Mg Tablet) 0.2 mg PO BID PRN; Protocol PRN Reason: anxiety Last Admin: 04/24/21 23:23 Dose: 0.2 mg Documented by: Fluoxetine HCl (Fluoxetine Hcl 20 Mg Capsule) 60 mg PO DAILY [facility] Last Admin: 04/27/21 09:24 Dose: 60 mg Documented by: Fluticasone/Vilanterol (Fluticasone/Vilanterol 100/25 Blst.W.Dev) 1 puff INHALE RDAILY [facility] Last Admin: 04/27/21 09:26 Dose: 1 puff Documented by: Hydroxyzine HCl (Hydroxyzine Hcl 25 Mg Tablet) 25 mg PO Q6H PRN PRN Reason: Anxiety Magnesium Hydroxide (Milk Of Magnesia 30 Ml Oral.Susp) 30 ml PO DAILY PRN PRN Reason: Constipation Melatonin (Melatonin 3 Mg Tablet) 3 mg PO BEDTIME [facility] Last Admin: 04/26/21 20:46 Dose: 3 mg Documented by: Metoprolol Succinate (Metoprolol Succinate Er 12.5 Mg Halftab.Er.24h) 12.5 mg PO DAILY [facility]; Protocol Last Admin: 04/27/21 09:25 Dose: 12.5 mg Documented by: Nicotine Polacrilex (Nicotine Polacrilex 2 Mg Gum) 2 mg BUCCAL Q2H PRN PRN Reason: smoking cravings Risperidone (Risperidone 2 Mg Tablet) 2 mg PO BEDTIME [facility]PL[facility] Last Admin: 04/26/21 20:46 Dose: 2 mg Documented by: Risperidone (Risperidone 1 Mg Tablet) 1 mg PO DAILY [facility] Last Admin: 04/27/21 09:25 Dose: 1 mg Documented by: Tiotropium [place] (Tiotropium [place] 18 Mcg Cap.W.Dev) 2 puff INHALE RDAILY [facility] Last Admin: 04/27/21 09:26 Dose: 2 puff Documented by: Trazodone HCl (Trazodone Hcl 50 Mg Tablet) 50 mg PO BEDTIME PRN PRN Reason: Insomnia Last Admin: 04/24/21 23:23 Dose: 50 mg Documented by: Allergies Allergies Allergy/AdvReac Type Severity Reaction Status Date / Time adhesive AdvReac Unknown Verified 04/21/21 23:21 aspirin AdvReac Unknown Verified 04/21/21 23:20 epinephrine AdvReac Unknown Verified 04/21/21 23:21 Assessment & Plan Assessment & Plan (1) MDD (major depressive disorder), recurrent episode, moderate: Status: Acute Code(s): F33.1 - Major depressive disorder, recurrent, moderate (2) PTSD (post-traumatic stress disorder): Status: Acute Code(s): F43.10 - Post-traumatic stress disorder, unspecified Assessment and Plan: Pt is a 75 y.o. Who carries a dx of MDD recurrent and PTSD. She presented to [facility] on 04/[facility]21 after her contacted [facility] to do a wellness check on her after he was hospitalized at [place] for thrombosis. Katheryn endorsed sx of SI without plan or intent and increased anxiety. She current presents with sx of anxiety, SI with plan to OD on medication and intent and depressed mood. Has long hx of chronic depression, feelings of guilt and hopelessness. Hx of multiple hospitalizations for SI and plan to OD on medications. Meds are kept in locked box at home. No substance use or alcohol abuse reported. Plan: Continue same treatment. Gather collateral information I spent minutes with the patient and/or on the patient floor today, greater than?50% of which was spent counseling/coordinating care. Reason for contiued inpatient stay Substantial Risk for: inability to function, rapid decompensation and med/psych decompensation
[2021-04-27] MEDS: Melatonin 3 MG TABLET PO (20:52)
[2021-04-27] MEDS: risperiDONE 2 MG TABLET PO (20:52)
[2021-04-27] MEDS: chlorproMAZINE HCl 25 MG TABLET PO (20:52)
[2021-04-27] MEDS: Atorvastatin Calcium 20 MG TABLET PO (20:52)
[2021-04-27 22:11] VITALS: BP 131/78; PULSE 82; RESP 18; TEMP 36.8; O2SAT 96
[2021-04-28 06:00] VITALS: BP 131/77; PULSE 84; RESP 16; TEMP 36.6; O2SAT 95
[2021-04-28 10:37] VITALS: BP 131/77; PULSE 84
[2021-04-28] MEDS: FLUoxetine HCl 20 MG CAPSULE 60 MG PO (10:37)
[2021-04-28] MEDS: Metoprolol Succinate ER 12.5 MG HALFTAB.ER.24H PO (10:37)
[2021-04-28] MEDS: risperiDONE 1 MG TABLET PO (10:37)
[2021-04-28] MEDS: Fluticasone/Vilanterol 100/25 BLST.W.DEV 1 PUFF INHALE (10:48)
--- NOTE | 2021-04-28 11:18 | P.PNPSI_ITS ---
Subjective Subjective Date of Service: 04/28/21 Reason For Visit: depressive disorder Subjective Notes: Conditional Voluntary Interim History: The nursing staff reported the patient has been social with the peers pleasant and cooperative. Last night she took Thorazine and it seems that she likes effect of this medication. On interview, the patient denies new symptoms she is future oriented and she is aware that her is better Review of Systems Review of Systems Yes all other systems are reviewed and are negative Mental Status Exam Mental Status Exam Patient Appearance: Well Grooomed and Appropriate Patient Orientation: Person and Situation Level of Consciousness: Awake and Appropriate Patient Behavior: Cooperative Mood Description: Calm Affect Description: Constricted Patient Cognition Impaired: No Ability to Follow Directions: Good Speech Pattern: Clear Hallucinations: None Delusions: Not Present Thought Process: Intact Thought Content: positive for Circumstantial Judgement: Fair Diagnostics Vital Signs (24Hr): Vital Signs - 24 hr 04/27/21 22:11 04/28/21 10:37 Temperature 98.3 F Pulse Rate 82 84 Respiratory Rate 18 Blood Pressure 131/78 131/77 Pulse Oximetry 96 Body Mass Index 26.2 Labs Results: 04/22/21 06:06 04/22/21 06:06 Medications Medications Current Medications Acetaminophen (Acetaminophen 325 Mg Tablet) 650 mg PO Q6H PRN PRN Reason: Headache/Pain Mild Scale (1-3) Al Hydroxide/Mg Hydroxide (Magnesium Hydrox/Alum Hydrox 30 Ml Oral.Susp) 30 ml PO Q6H PRN PRN Reason: Heartburn/Nausea Albuterol Sulfate (Albuterol Sulfate 90 Mcg 8 Gm Inhaler) 2 puff INHALE Q4H PRN PRN Reason: Shortness of Breath/Wheezing Atorvastatin Calcium (Atorvastatin Calcium 20 Mg Tablet) 20 mg PO BEDTIME [facility] Last Admin: 04/27/21 20:52 Dose: 20 mg Documented by: Chlorpromazine HCl (Chlorpromazine Hcl 25 Mg Tablet) 25 mg PO Q6H PRN PRN Reason: anxiety Last Admin: 04/27/21 20:52 Dose: 25 mg Documented by: Clonidine HCl (Clonidine Hcl 0.2 Mg Tablet) 0.2 mg PO BID PRN; Protocol PRN Reason: anxiety Last Admin: 04/24/21 23:23 Dose: 0.2 mg Documented by: Fluoxetine HCl (Fluoxetine Hcl 20 Mg Capsule) 60 mg PO DAILY [facility] Last Admin: 04/28/21 10:37 Dose: 60 mg Documented by: Fluticasone/Vilanterol (Fluticasone/Vilanterol 100/25 Blst.W.Dev) 1 puff INHALE RDAILY [facility] Last Admin: 04/28/21 10:48 Dose: 1 puff Documented by: Hydroxyzine HCl (Hydroxyzine Hcl 25 Mg Tablet) 25 mg PO Q6H PRN PRN Reason: Anxiety Magnesium Hydroxide (Milk Of Magnesia 30 Ml Oral.Susp) 30 ml PO DAILY PRN PRN Reason: Constipation Melatonin (Melatonin 3 Mg Tablet) 3 mg PO BEDTIME [facility] Last Admin: 04/27/21 20:52 Dose: 3 mg Documented by: Metoprolol Succinate (Metoprolol Succinate Er 12.5 Mg Halftab.Er.24h) 12.5 mg PO DAILY [facility]; Protocol Last Admin: 04/28/21 10:37 Dose: 12.5 mg Documented by: Nicotine Polacrilex (Nicotine Polacrilex 2 Mg Gum) 2 mg BUCCAL Q2H PRN PRN Reason: smoking cravings Risperidone (Risperidone 2 Mg Tablet) 2 mg PO BEDTIME [facility] Last Admin: 04/27/21 20:52 Dose: 2 mg Documented by: Risperidone (Risperidone 1 Mg Tablet) 1 mg PO DAILY [facility] Last Admin: 04/28/21 10:37 Dose: 1 mg Documented by: Tiotropium [place] (Tiotropium [place] 18 Mcg Cap.W.Dev) 2 puff INHALE RDAILY [facility] Last Admin: 04/28/21 10:47 Dose: Not Given Documented by: Trazodone HCl (Trazodone Hcl 50 Mg Tablet) 50 mg PO BEDTIME PRN PRN Reason: Insomnia Last Admin: 04/24/21 23:23 Dose: 50 mg Documented by: Allergies Allergies Allergy/AdvReac Type Severity Reaction Status Date / Time adhesive AdvReac Unknown Verified 04/21/21 23:21 aspirin AdvReac Unknown Verified 04/21/21 23:20 epinephrine AdvReac Unknown Verified 04/21/21 23:21 Assessment & Plan Assessment & Plan (1) MDD (major depressive disorder), recurrent episode, moderate: Status: Acute Code(s): F33.1 - Major depressive disorder, recurrent, moderate (2) PTSD (post-traumatic stress disorder): Status: Acute Code(s): F43.10 - Post-traumatic stress disorder, unspecified Assessment and Plan: Pt is a 75 y.o. Who carries a dx of MDD recurrent and PTSD. She presented to [facility] on 04/20/21 after her contacted [facility] to do a wellness check on her after he was hospitalized at [place] for thrombosis. Katheryn endorsed sx of SI without plan or intent and increased anxiety. She current presents with sx of anxiety, SI with plan to OD on medication and intent and depressed mood. Has long hx of chronic depression, feelings of guilt and hopelessness. Hx of multiple hospitalizations for SI and plan to OD on medications. Meds are kept in locked box at home. No substance use or alcohol abuse reported. Plan: Continue same treatment. Gather collateral information Waiting for placement I spent minutes with the patient and/or on the patient floor today, greater than?50% of which was spent counseling/coordinating care. Reason for contiued inpatient stay Substantial Risk for: inability to function, rapid decompensation and med/psych decompensation
[2021-04-28] MEDS: chlorproMAZINE HCl 25 MG TABLET PO (20:14)
[2021-04-28 20:16] VITALS: BP 177/79; PULSE 84
[2021-04-28] MEDS: cloNIDine HCL 0.2 MG TABLET PO (20:16)
[2021-04-28 20:52] VITALS: BP 177/79; PULSE 84; RESP 17; TEMP 36.8; O2SAT 95
[2021-04-28] MEDS: Atorvastatin Calcium 20 MG TABLET PO (21:07)
[2021-04-28] MEDS: Melatonin 3 MG TABLET PO (21:07)
[2021-04-28] MEDS: risperiDONE 2 MG TABLET PO (21:07)
[2021-04-28] MEDS: LORazepam 1 MG TABLET PO (21:35)
[2021-04-28] MEDS: traZODone HCL 50 MG TABLET PO (22:31)
[2021-04-28] MEDS: hydrOXYzine HCL 25 MG TABLET PO (22:31)
[2021-04-29 08:08] VITALS: BP 124/59; PULSE 88
[2021-04-29] MEDS: Metoprolol Succinate ER 12.5 MG HALFTAB.ER.24H PO (08:08)
[2021-04-29] MEDS: FLUoxetine HCl 20 MG CAPSULE 60 MG PO (08:08)
[2021-04-29] MEDS: risperiDONE 1 MG TABLET PO (08:08)
[2021-04-29] MEDS: Fluticasone/Vilanterol 100/25 BLST.W.DEV 1 PUFF INHALE (08:25)
[2021-04-29 08:52] VITALS: BP 124/59; PULSE 88; RESP 14; TEMP 36.5; O2SAT 98
--- NOTE | 2021-04-29 11:59 | HO.PSYCHPN ---
Subjective Subjective Date of Service: 04/29/21 Reason For Visit: depressive disorder Interim History: The nursing staff reported the patient has been social with the peers pleasant and cooperative. She is asking her Thorazine PRN is increased. She still has anxiety at night. On interview, the patient denies new symptoms she is future oriented. Medication Compliance: Yes Side effects from medications: No Attending Groups: Yes Review of Systems Acute medical concerns: No Medical Review of Systems: unchanged Review of Systems Review of Systems CVS: No c/o chest pain, palpitations, no SOB FINANCIAL ANALYSIS ADVISOR: No c/o dizziness, headache GI: No c/o Nausea, Vomiting, diarrhea, constipation or heartburn Yes all other systems are reviewed and are negative Mental Status Exam Mental Status Exam Patient Appearance: Well Grooomed and Appropriate Patient Orientation: Person and Situation Level of Consciousness: Awake and Appropriate Patient Behavior: Appropriate and Cooperative Mood Description: Calm and Anxious Affect Description: Calm, Constricted and Nervous Patient Cognition Impaired: No Ability to Follow Directions: Good Speech Pattern: Clear and Appropriate Memory Description: Intact Hallucinations: None Thought Process: Intact, Goal Oriented and Linear Depressive Symptoms: Increased Anxiety, Feelings of Worthlessness and Unhappiness Judgement: Fair Diagnostics Vital Signs (24Hr): Vital Signs - 24 hr 04/28/21 20:16 04/28/21 20:52 04/29/21 08:08 Temperature 98.2 F Pulse Rate 84 84 88 Respiratory Rate 17 Blood Pressure 177/79 H 177/79 H 124/59 L Pulse Oximetry 95 04/29/21 08:52 Temperature 97.7 F Pulse Rate 88 Respiratory Rate 14 Blood Pressure 124/59 L Pulse Oximetry 98 Body Mass Index 26.2 Labs Results: 04/22/21 06:06 04/22/21 06:06 Medications Medications Current Medications Acetaminophen (Acetaminophen 325 Mg Tablet) 650 mg PO Q6H PRN PRN Reason: Headache/Pain Mild Scale (1-3) Al Hydroxide/Mg Hydroxide (Magnesium Hydrox/Alum Hydrox 30 Ml Oral.Susp) 30 ml PO Q6H PRN PRN Reason: Heartburn/Nausea Albuterol Sulfate (Albuterol Sulfate 90 Mcg 8 Gm Inhaler) 2 puff INHALE Q4H PRN PRN Reason: Shortness of Breath/Wheezing Atorvastatin Calcium (Atorvastatin Calcium 20 Mg Tablet) 20 mg PO BEDTIME [facility] Last Admin: 04/28/21 21:07 Dose: 20 mg Documented by: Chlorpromazine HCl (Chlorpromazine Hcl 25 Mg Tablet) 25 mg PO Q6H PRN PRN Reason: anxiety Last Admin: 04/28/21 20:14 Dose: 25 mg Documented by: Clonidine HCl (Clonidine Hcl 0.2 Mg Tablet) 0.2 mg PO BID PRN; Protocol PRN Reason: anxiety Last Admin: 04/28/21 20:16 Dose: 0.2 mg Documented by: Fluoxetine HCl (Fluoxetine Hcl 20 Mg Capsule) 60 mg PO DAILY [facility] Last Admin: 04/29/21 08:08 Dose: 60 mg Documented by: Fluticasone/Vilanterol (Fluticasone/Vilanterol 100/25 Blst.W.Dev) 1 puff INHALE RDAILY [facility] Last Admin: 04/29/21 08:25 Dose: 1 puff Documented by: Hydroxyzine HCl (Hydroxyzine Hcl 25 Mg Tablet) 25 mg PO Q6H PRN PRN Reason: Anxiety Last Admin: 04/28/21 22:31 Dose: 25 mg Documented by: Magnesium Hydroxide (Milk Of Magnesia 30 Ml Oral.Susp) 30 ml PO DAILY PRN PRN Reason: Constipation Melatonin (Melatonin 3 Mg Tablet) 3 mg PO BEDTIME [facility] Last Admin: 04/28/21 21:07 Dose: 3 mg Documented by: Metoprolol Succinate (Metoprolol Succinate Er 12.5 Mg Halftab.Er.24h) 12.5 mg PO DAILY [facility]; Protocol Last Admin: 04/29/21 08:08 Dose: 12.5 mg Documented by: Nicotine Polacrilex (Nicotine Polacrilex 2 Mg Gum) 2 mg BUCCAL Q2H PRN PRN Reason: smoking cravings Risperidone (Risperidone 2 Mg Tablet) 2 mg PO BEDTIME [facility] Last Admin: 04/28/21 21:07 Dose: 2 mg Documented by: Risperidone (Risperidone 1 Mg Tablet) 1 mg PO DAILY [facility] Last Admin: 04/29/21 08:08 Dose: 1 mg Documented by: Tiotropium [place] (Tiotropium [place] 18 Mcg Cap.W.Dev) 2 puff INHALE RDAILY [facility] Last Admin: 04/28/21 10:47 Dose: Not Given Documented by: Trazodone HCl (Trazodone Hcl 50 Mg Tablet) 50 mg PO BEDTIME PRN PRN Reason: Insomnia Last Admin: 04/28/21 22:31 Dose: 50 mg Documented by: Allergies Allergies Allergy/AdvReac Type Severity Reaction Status Date / Time adhesive AdvReac Unknown Verified 04/21/21 23:21 aspirin AdvReac Unknown Verified 04/21/21 23:20 epinephrine AdvReac Unknown Verified 04/21/21 23:21 Assessment & Plan Assessment & Plan (1) MDD (major depressive disorder), recurrent episode, moderate: Status: Acute Code(s): F33.1 - Major depressive disorder, recurrent, moderate (2) PTSD (post-traumatic stress disorder): Status: Acute Code(s): F43.10 - Post-traumatic stress disorder, unspecified Assessment and Plan: Pt is a 75 y.o. Who carries a dx of MDD recurrent and PTSD. She presented to [facility] on 04/20/21 after her contacted [facility] to do a wellness check on her after he was hospitalized at [place] for thrombosis. Katheryn endorsed sx of SI without plan or intent and increased anxiety. She current presents with sx of anxiety, SI with plan to OD on medication and intent and depressed mood. Has long hx of chronic depression, feelings of guilt and hopelessness. Hx of multiple hospitalizations for SI and plan to OD on medications. Meds are kept in locked box at home. No substance use or alcohol abuse reported. Plan: Continue same treatment. Gather collateral information Waiting for placement Increase HS Thorazine to 50 mg standing dose. I spent minutes with the patient and/or on the patient floor today, greater than?50% of which was spent counseling/coordinating care. Reason for contiued inpatient stay Substantial Risk for: harm to self and rapid decompensation
[2021-04-29 20:29] VITALS: BP 153/70; PULSE 76; RESP 18; TEMP 36.4; O2SAT 96
[2021-04-29] MEDS: Melatonin 3 MG TABLET PO (20:57)
[2021-04-29] MEDS: traZODone HCL 50 MG TABLET PO (20:58)
[2021-04-29] MEDS: Atorvastatin Calcium 20 MG TABLET PO (20:58)
[2021-04-29] MEDS: risperiDONE 2 MG TABLET PO (20:58)
[2021-04-29] MEDS: chlorproMAZINE HCl 25 MG TABLET 50 MG PO (20:59)
[2021-04-30 07:46] VITALS: BP 124/64; PULSE 80
[2021-04-30] MEDS: FLUoxetine HCl 20 MG CAPSULE 60 MG PO (07:46)
[2021-04-30] MEDS: Metoprolol Succinate ER 12.5 MG HALFTAB.ER.24H PO (07:46)
[2021-04-30] MEDS: risperiDONE 1 MG TABLET PO (07:47)
[2021-04-30] MEDS: Fluticasone/Vilanterol 100/25 BLST.W.DEV 1 PUFF INHALE (08:12)
[2021-04-30 08:47] VITALS: BP 124/64; PULSE 80; RESP 18; TEMP 36.7; O2SAT 94
--- NOTE | 2021-04-30 18:00 | HO.PSYCHPN ---
Subjective Subjective Date of Service: 04/30/21 Reason For Visit: depressive disorder Interim History: The nursing staff reported the patient has been social with peers pleasant and cooperative. Feels less anxious today. She reports she is enjoying the company of another patient. On interview, the patient denies new symptoms she is future oriented. 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 Well groomed, good hygiene, normal body habitus. Good eye contact, attentive. No Tics or Tremors. No abnormal involuntary movements. Calm, cooperative, engaged. Non-pressured speech, spontaneous with regular rate and rhythm, normal volume and prosody. No prolonged speech latency or dysarthria. Mood is ?depressed,? affect is anxious, nervous. Endorses SI with plan to OD on medications and intent if she is discharged home. Denies SIB/HI upon inquiry. Denies A/VH or delusional thought content. Thoughts are coherent, organized. No known cognitive or memory impairment. Insight/ Judgment fair and adequate. Patient Appearance: Well Grooomed and Appropriate Patient Orientation: Person and Situation Level of Consciousness: Awake and Appropriate Patient Behavior: Appropriate and Cooperative Mood Description: Calm and Anxious Affect Description: Calm, Constricted and Nervous Patient Cognition Impaired: No Ability to Follow Directions: Good Speech Pattern: Clear and Appropriate Memory Description: Intact Diagnostics Vital Signs (24Hr): Vital Signs - 24 hr 04/29/21 20:29 04/30/21 07:46 04/30/21 08:47 Temperature 97.5 F 98.0 F Pulse Rate 76 80 80 Respiratory Rate 18 18 Blood Pressure 153/70 H 124/64 124/64 Pulse Oximetry 96 94 Body Mass Index 26.2 Labs Results: 04/22/21 06:06 04/22/21 06:06 Medications Medications Current Medications Acetaminophen (Acetaminophen 325 Mg Tablet) 650 mg PO Q6H PRN PRN Reason: Headache/Pain Mild Scale (1-3) Al Hydroxide/Mg Hydroxide (Magnesium Hydrox/Alum Hydrox 30 Ml Oral.Susp) 30 ml PO Q6H PRN PRN Reason: Heartburn/Nausea Albuterol Sulfate (Albuterol Sulfate 90 Mcg 8 Gm Inhaler) 2 puff INHALE Q4H PRN PRN Reason: Shortness of Breath/Wheezing Atorvastatin Calcium (Atorvastatin Calcium 20 Mg Tablet) 20 mg PO BEDTIME [facility] Last Admin: 04/29/21 20:58 Dose: 20 mg Documented by: Chlorpromazine HCl (Chlorpromazine Hcl 25 Mg Tablet) 25 mg PO BID PRN PRN Reason: anxiety Chlorpromazine HCl (Chlorpromazine Hcl 25 Mg Tablet) 50 mg PO BEDTIME [facility] Last Admin: 04/29/21 20:59 Dose: 50 mg Documented by: Clonidine HCl (Clonidine Hcl 0.2 Mg Tablet) 0.2 mg PO BID PRN; Protocol PRN Reason: anxiety Last Admin: 04/28/21 20:16 Dose: 0.2 mg Documented by: Fluoxetine HCl (Fluoxetine Hcl 20 Mg Capsule) 60 mg PO DAILY [facility] Last Admin: 04/30/21 07:46 Dose: 60 mg Documented by: Fluticasone/Vilanterol (Fluticasone/Vilanterol 100/25 Blst.W.Dev) 1 puff INHALE RDAILY [facility] Last Admin: 04/30/21 08:12 Dose: 1 puff Documented by: Hydroxyzine HCl (Hydroxyzine Hcl 25 Mg Tablet) 25 mg PO Q6H PRN PRN Reason: Anxiety Last Admin: 04/28/21 22:31 Dose: 25 mg Documented by: Magnesium Hydroxide (Milk Of Magnesia 30 Ml Oral.Susp) 30 ml PO DAILY PRN PRN Reason: Constipation Melatonin (Melatonin 3 Mg Tablet) 3 mg PO BEDTIME [facility] Last Admin: 04/29/21 20:57 Dose: 3 mg Documented by: Metoprolol Succinate (Metoprolol Succinate Er 12.5 Mg Halftab.Er.24h) 12.5 mg PO DAILY [facility]; Protocol Last Admin: 04/30/21 07:46 Dose: 12.5 mg Documented by: Nicotine Polacrilex (Nicotine Polacrilex 2 Mg Gum) 2 mg BUCCAL Q2H PRN PRN Reason: smoking cravings Risperidone (Risperidone 2 Mg Tablet) 2 mg PO BEDTIME [facility] Last Admin: 04/29/21 20:58 Dose: 2 mg Documented by: Risperidone (Risperidone 1 Mg Tablet) 1 mg PO DAILY [facility] Last Admin: 04/30/21 07:47 Dose: 1 mg Documented by: Tiotropium [place] (Tiotropium [place] 18 Mcg Cap.W.Dev) 2 puff INHALE RDAILY [facility] Last Admin: 04/30/21 08:12 Dose: 2 puff Documented by: Trazodone HCl (Trazodone Hcl 50 Mg Tablet) 50 mg PO BEDTIME PRN PRN Reason: Insomnia Last Admin: 04/29/21 20:58 Dose: 50 mg Documented by: Allergies Allergies Allergy/AdvReac Type Severity Reaction Status Date / Time adhesive AdvReac Unknown Verified 04/21/21 23:21 aspirin AdvReac Unknown Verified 04/21/21 23:20 epinephrine AdvReac Unknown Verified 04/21/21 23:21 Assessment & Plan Assessment & Plan (1) MDD (major depressive disorder), recurrent episode, moderate: Status: Acute Code(s): F33.1 - Major depressive disorder, recurrent, moderate (2) PTSD (post-traumatic stress disorder): Status: Acute Code(s): F43.10 - Post-traumatic stress disorder, unspecified Assessment and Plan: Pt is a 75 y.o. Who carries a dx of MDD recurrent and PTSD. She presented to [facility] crisis on 04/20/21 after her contacted [facility] to do a wellness check on her after he was hospitalized at [place] for thrombosis. Katheryn endorsed sx of SI without plan or intent and increased anxiety. She current presents with sx of anxiety, SI with plan to OD on medication and intent and depressed mood. Has long hx of chronic depression, feelings of guilt and hopelessness. Hx of multiple hospitalizations for SI and plan to OD on medications. Meds are kept in locked box at home. No substance use or alcohol abuse reported. Plan: Continue same treatment. Gather collateral information Waiting for placement Continue Thorazine to 50 mg standing dose. I spent minutes with the patient and/or on the patient floor today, greater than?50% of which was spent counseling/coordinating care. Reason for contiued inpatient stay Substantial Risk for: harm to self and inability to function
[2021-04-30] MEDS: Melatonin 3 MG TABLET PO (19:57)
[2021-04-30] MEDS: Atorvastatin Calcium 20 MG TABLET PO (19:58)
[2021-04-30] MEDS: chlorproMAZINE HCl 25 MG TABLET 50 MG PO (19:58)
[2021-04-30] MEDS: risperiDONE 2 MG TABLET PO (19:58)
[2021-04-30 20:53] VITALS: BP 144/80; PULSE 76; RESP 18; TEMP 36.4; O2SAT 96
--- NOTE | 2021-05-01 | ECG_ITS ---
Test Reason : pre ect Blood Pressure : / mmHG Vent. Rate : 078 BPM Atrial Rate : 078 BPM P-R Int : 164 ms QRS Dur : 130 ms QT Int : 448 ms P-R-T Axes : 054 025 088 degrees QTc Int : 510 ms Sinus rhythm with Premature supraventricular complexes Left bundle branch block Abnormal ECG No previous ECGs available Referred By: James Garcia Electronically Signed By:ROSARIO HERR MD
[2021-05-01 06:00] VITALS: BP 147/80; PULSE 91; RESP 14; TEMP 36.8; O2SAT 94
[2021-05-01 08:06] VITALS: BP 147/80; PULSE 91
[2021-05-01] MEDS: Metoprolol Succinate ER 12.5 MG HALFTAB.ER.24H PO (08:06)
[2021-05-01] MEDS: FLUoxetine HCl 20 MG CAPSULE 60 MG PO (08:06)
[2021-05-01] MEDS: Fluticasone/Vilanterol 100/25 BLST.W.DEV 1 PUFF INHALE (08:24)
[2021-05-01] MEDS: risperiDONE 1 MG TABLET PO (09:52)
--- NOTE | 2021-05-01 12:12 | HO.PSYCHPN ---
Subjective Subjective Date of Service: 05/01/21 Reason For Visit: depressive disorder Subjective Notes: Conditional Voluntary Interim History: The nursing staff reports that the patient is sleeping well, she takes Thorazine 50 mg at HS and she is eating very well. She is very visible in the unit. She feels overwhelmed sings a [place] tries to talk with her all the time. On interview, the patient denies new symptoms she was worried because her next ECT will be on these Saturday and most likely she will not be discharged to that date. Mental Status Exam Mental Status Exam Patient Appearance: Well Grooomed Patient Orientation: Person, Place and Situation Level of Consciousness: Awake and Appropriate Patient Behavior: Cooperative Mood Description: Calm and Constricted Affect Description: Constricted Patient Cognition Impaired: Yes Ability to Follow Directions: Good Speech Pattern: Clear Memory Description: Intact Hallucinations: None Delusions: Not Present Thought Process: Goal Oriented Thought Content: positive for Circumstantial Judgement: Fair Diagnostics Vital Signs (24Hr): Vital Signs - 24 hr 04/30/21 20:53 05/01/21 06:00 05/01/21 08:06 Temperature 97.6 F 98.2 F Pulse Rate 76 91 91 Respiratory Rate 18 14 Blood Pressure 144/80 H 147/80 H 147/80 H Pulse Oximetry 96 94 Body Mass Index 26.2 Labs Results: 04/22/21 06:06 04/22/21 06:06 Medications Medications Current Medications Acetaminophen (Acetaminophen 325 Mg Tablet) 650 mg PO Q6H PRN PRN Reason: Headache/Pain Mild Scale (1-3) Al Hydroxide/Mg Hydroxide (Magnesium Hydrox/Alum Hydrox 30 Ml Oral.Susp) 30 ml PO Q6H PRN PRN Reason: Heartburn/Nausea Albuterol Sulfate (Albuterol Sulfate 90 Mcg 8 Gm Inhaler) 2 puff INHALE Q4H PRN PRN Reason: Shortness of Breath/Wheezing Atorvastatin Calcium (Atorvastatin Calcium 20 Mg Tablet) 20 mg PO BEDTIME [facility] Last Admin: 04/30/21 19:58 Dose: 20 mg Documented by: Chlorpromazine HCl (Chlorpromazine Hcl 25 Mg Tablet) 25 mg PO BID PRN PRN Reason: anxiety Chlorpromazine HCl (Chlorpromazine Hcl 25 Mg Tablet) 50 mg PO BEDTIME [facility] Last Admin: 04/30/21 19:58 Dose: 50 mg Documented by: Clonidine HCl (Clonidine Hcl 0.2 Mg Tablet) 0.2 mg PO BID PRN; Protocol PRN Reason: anxiety Last Admin: 04/28/21 20:16 Dose: 0.2 mg Documented by: Fluoxetine HCl (Fluoxetine Hcl 20 Mg Capsule) 60 mg PO DAILY [facility] Last Admin: 05/01/21 08:06 Dose: 60 mg Documented by: Fluticasone/Vilanterol (Fluticasone/Vilanterol 100/25 Blst.W.Dev) 1 puff INHALE RDAILY [facility] Last Admin: 05/01/21 08:24 Dose: 1 puff Documented by: Hydroxyzine HCl (Hydroxyzine Hcl 25 Mg Tablet) 25 mg PO Q6H PRN PRN Reason: Anxiety Last Admin: 04/28/21 22:31 Dose: 25 mg Documented by: Magnesium Hydroxide (Milk Of Magnesia 30 Ml Oral.Susp) 30 ml PO DAILY PRN PRN Reason: Constipation Melatonin (Melatonin 3 Mg Tablet) 3 mg PO BEDTIME [facility] Last Admin: 04/30/21 19:57 Dose: 3 mg Documented by: Metoprolol Succinate (Metoprolol Succinate Er 12.5 Mg Halftab.Er.24h) 12.5 mg PO DAILY [facility]; Protocol Last Admin: 05/01/21 08:06 Dose: 12.5 mg Documented by: Nicotine Polacrilex (Nicotine Polacrilex 2 Mg Gum) 2 mg BUCCAL Q2H PRN PRN Reason: smoking cravings Risperidone (Risperidone 2 Mg Tablet) 2 mg PO BEDTIME [facility] Last Admin: 04/30/21 19:58 Dose: 2 mg Documented by: Risperidone (Risperidone 1 Mg Tablet) 1 mg PO DAILY [facility] Last Admin: 05/01/21 09:52 Dose: 1 mg Documented by: Tiotropium [place] (Tiotropium [place] 18 Mcg Cap.W.Dev) 2 puff INHALE RDAILY [facility] Last Admin: 05/01/21 08:24 Dose: 2 puff Documented by: Trazodone HCl (Trazodone Hcl 50 Mg Tablet) 50 mg PO BEDTIME PRN PRN Reason: Insomnia Last Admin: 04/29/21 20:58 Dose: 50 mg Documented by: Allergies Allergies Allergy/AdvReac Type Severity Reaction Status Date / Time adhesive AdvReac Unknown Verified 04/21/21 23:21 aspirin AdvReac Unknown Verified 04/21/21 23:20 epinephrine AdvReac Unknown Verified 04/21/21 23:21 Assessment & Plan Assessment & Plan (1) MDD (major depressive disorder), recurrent episode, moderate: Status: Acute Code(s): F33.1 - Major depressive disorder, recurrent, moderate (2) PTSD (post-traumatic stress disorder): Status: Acute Code(s): F43.10 - Post-traumatic stress disorder, unspecified Assessment and Plan: Pt is a 75 y.o. Who carries a dx of MDD recurrent and PTSD. She presented to [facility] on 04/20/21 after her contacted [facility] to do a wellness check on her after he was hospitalized at [place] for thrombosis. Katheryn endorsed sx of SI without plan or intent and increased anxiety. She current presents with sx of anxiety, SI with plan to OD on medication and intent and depressed mood. Has long hx of chronic depression, feelings of guilt and hopelessness. Hx of multiple hospitalizations for SI and plan to OD on medications. Meds are kept in locked box at home. No substance use or alcohol abuse reported. Plan: Continue same treatment. Gather collateral information Waiting for placement Continue Thorazine to 50 mg standing dose. I spent minutes with the patient and/or on the patient floor today, greater than?50% of which was spent counseling/coordinating care. Reason for contiued inpatient stay Substantial Risk for: inability to function, rapid decompensation and med/psych decompensation
--- NOTE | 2021-05-01 15:16 | MHC.CLN ---
F/U PER MD NOTE, PATIENT IS EATING WELL. NUTRITION TO FOLLOW UP IF CONSULT.
[2021-05-01 20:05] VITALS: BP 178/93; PULSE 99; RESP 20; TEMP 37.1; O2SAT 97
[2021-05-01] MEDS: chlorproMAZINE HCl 25 MG TABLET 50 MG PO (21:20)
[2021-05-01] MEDS: risperiDONE 2 MG TABLET PO (21:20)
[2021-05-01] MEDS: Melatonin 3 MG TABLET PO (21:20)
[2021-05-01] MEDS: Atorvastatin Calcium 20 MG TABLET PO (21:20)
[2021-05-01] MEDS: traZODone HCL 50 MG TABLET PO (23:18)
[2021-05-02] MEDS: FLUoxetine HCl 20 MG CAPSULE 60 MG PO (08:23)
[2021-05-02] MEDS: risperiDONE 1 MG TABLET PO (08:24)
[2021-05-02 08:25] VITALS: BP 108/57; PULSE 99
[2021-05-02] MEDS: Metoprolol Succinate ER 12.5 MG HALFTAB.ER.24H PO (08:25)
[2021-05-02] MEDS: Fluticasone/Vilanterol 100/25 BLST.W.DEV 1 PUFF INHALE (08:26)
[2021-05-02 09:22] VITALS: BP 108/57; PULSE 99; RESP 14; TEMP 36.3; O2SAT 92
[2021-05-02] MEDS: chlorproMAZINE HCl 25 MG TABLET PO ×2 (12:03→21:52)
--- NOTE | 2021-05-02 15:40 | HO.PSYCHPN ---
Subjective Subjective Date of Service: 05/02/21 Reason For Visit: depressive disorder Subjective Notes: Conditional Voluntary Interim History: The nursing staff reports the patient slept well, she is fully compliant with medications. On interview the patient reports that she is doing fine, she is waiting for placement Review of Systems Acute medical concerns: No Medical Review of Systems: unchanged Mental Status Exam Mental Status Exam Patient Appearance: Well Grooomed Patient Orientation: Person Level of Consciousness: Awake Patient Behavior: Cooperative Mood Description: Constricted Affect Description: Constricted Patient Cognition Impaired: No Ability to Follow Directions: Good Speech Pattern: Clear Hallucinations: None Delusions: Not Present Thought Process: Intact Thought Content: positive for Circumstantial Depressive Symptoms: Increased Anxiety Judgement: Fair Diagnostics Vital Signs (24Hr): Vital Signs - 24 hr 05/01/21 20:05 05/02/21 08:25 05/02/21 09:22 Temperature 98.7 F 97.3 F Pulse Rate 99 99 99 Respiratory Rate 20 14 Blood Pressure 178/93 H 108/57 L 108/57 L Pulse Oximetry 97 92 Body Mass Index 26.2 Labs Results: 04/22/21 06:06 04/22/21 06:06 Medications Medications Current Medications Acetaminophen (Acetaminophen 325 Mg Tablet) 650 mg PO Q6H PRN PRN Reason: Headache/Pain Mild Scale (1-3) Al Hydroxide/Mg Hydroxide (Magnesium Hydrox/Alum Hydrox 30 Ml Oral.Susp) 30 ml PO Q6H PRN PRN Reason: Heartburn/Nausea Albuterol Sulfate (Albuterol Sulfate 90 Mcg 8 Gm Inhaler) 2 puff INHALE Q4H PRN PRN Reason: Shortness of Breath/Wheezing Atorvastatin Calcium (Atorvastatin Calcium 20 Mg Tablet) 20 mg PO BEDTIME [facility] Last Admin: 05/01/21 21:20 Dose: 20 mg Documented by: Chlorpromazine HCl (Chlorpromazine Hcl 25 Mg Tablet) 25 mg PO BID PRN PRN Reason: anxiety Last Admin: 05/02/21 12:03 Dose: 25 mg Documented by: Chlorpromazine HCl (Chlorpromazine Hcl 25 Mg Tablet) 50 mg PO BEDTIME [facility] Last Admin: 05/01/21 21:20 Dose: 50 mg Documented by: Clonidine HCl (Clonidine Hcl 0.2 Mg Tablet) 0.2 mg PO BID PRN; Protocol PRN Reason: anxiety Last Admin: 04/28/21 20:16 Dose: 0.2 mg Documented by: Fluoxetine HCl (Fluoxetine Hcl 20 Mg Capsule) 60 mg PO DAILY [facility] Last Admin: 05/02/21 08:23 Dose: 60 mg Documented by: Fluticasone/Vilanterol (Fluticasone/Vilanterol 100/25 Blst.W.Dev) 1 puff INHALE RDAILY [facility] Last Admin: 05/02/21 08:26 Dose: 1 puff Documented by: Hydroxyzine HCl (Hydroxyzine Hcl 25 Mg Tablet) 25 mg PO Q6H PRN PRN Reason: Anxiety Last Admin: 04/28/21 22:31 Dose: 25 mg Documented by: Magnesium Hydroxide (Milk Of Magnesia 30 Ml Oral.Susp) 30 ml PO DAILY PRN PRN Reason: Constipation Melatonin (Melatonin 3 Mg Tablet) 3 mg PO BEDTIME [facility] Last Admin: 05/01/21 21:20 Dose: 3 mg Documented by: Metoprolol Succinate (Metoprolol Succinate Er 12.5 Mg Halftab.Er.24h) 12.5 mg PO DAILY [facility]; Protocol Last Admin: 05/02/21 08:25 Dose: 12.5 mg Documented by: Nicotine Polacrilex (Nicotine Polacrilex 2 Mg Gum) 2 mg BUCCAL Q2H PRN PRN Reason: smoking cravings Risperidone (Risperidone 2 Mg Tablet) 2 mg PO BEDTIME [facility] Last Admin: 05/01/21 21:20 Dose: 2 mg Documented by: Risperidone (Risperidone 1 Mg Tablet) 1 mg PO DAILY [facility] Last Admin: 05/02/21 08:24 Dose: 1 mg Documented by: Tiotropium [place] (Tiotropium [place] 18 Mcg Cap.W.Dev) 2 puff INHALE RDAILY [facility] Last Admin: 05/02/21 08:26 Dose: 2 puff Documented by: Trazodone HCl (Trazodone Hcl 50 Mg Tablet) 50 mg PO BEDTIME PRN PRN Reason: Insomnia Last Admin: 05/01/21 23:18 Dose: 50 mg Documented by: Allergies Allergies Allergy/AdvReac Type Severity Reaction Status Date / Time adhesive AdvReac Unknown Verified 04/21/21 23:21 aspirin AdvReac Unknown Verified 04/21/21 23:20 epinephrine AdvReac Unknown Verified 04/21/21 23:21 Assessment & Plan Assessment & Plan (1) MDD (major depressive disorder), recurrent episode, moderate: Status: Acute Code(s): F33.1 - Major depressive disorder, recurrent, moderate (2) PTSD (post-traumatic stress disorder): Status: Acute Code(s): F43.10 - Post-traumatic stress disorder, unspecified Assessment and Plan: Pt is a 75 y.o. Who carries a dx of MDD recurrent and PTSD. She presented to [facility] on 04/20/21 after her contacted [facility] to do a wellness check on her after he was hospitalized at [place] for thrombosis. Katheryn endorsed sx of SI without plan or intent and increased anxiety. She current presents with sx of anxiety, SI with plan to OD on medication and intent and depressed mood. Has long hx of chronic depression, feelings of guilt and hopelessness. Hx of multiple hospitalizations for SI and plan to OD on medications. Meds are kept in locked box at home. No substance use or alcohol abuse reported. Plan: Continue same treatment. Gather collateral information Waiting for placement Continue Thorazine to 50 mg standing dose. I spent minutes with the patient and/or on the patient floor today, greater than?50% of which was spent counseling/coordinating care. Reason for contiued inpatient stay Substantial Risk for: inability to function, rapid decompensation and med/psych decompensation
[2021-05-02 18:00] VITALS: BP 152/75; PULSE 95; TEMP 36.2; O2SAT 96
[2021-05-02] MEDS: chlorproMAZINE HCl 25 MG TABLET 50 MG PO (20:58)
[2021-05-02] MEDS: Melatonin 3 MG TABLET PO (20:59)
[2021-05-02] MEDS: Atorvastatin Calcium 20 MG TABLET PO (20:59)
[2021-05-02] MEDS: risperiDONE 2 MG TABLET PO (20:59)
[2021-05-03] MEDS: Fluticasone/Vilanterol 100/25 BLST.W.DEV 1 PUFF INHALE (08:23)
[2021-05-03 08:24] VITALS: BP 123/63; PULSE 99
[2021-05-03] MEDS: FLUoxetine HCl 20 MG CAPSULE 60 MG PO (08:24)
[2021-05-03] MEDS: Metoprolol Succinate ER 12.5 MG HALFTAB.ER.24H PO (08:24)
[2021-05-03] MEDS: risperiDONE 1 MG TABLET PO (08:25)
[2021-05-03 11:22] VITALS: BP 123/63; PULSE 99; RESP 14; TEMP 35.6; O2SAT 93
--- NOTE | 2021-05-03 11:30 | HO.PSYCHPN ---
Subjective Subjective Date of Service: 05/03/21 Reason For Visit: depressive disorder Subjective Notes: Conditional Voluntary Interim History: The nursing staff reported the patient has been doing well, she is sleeping, she has good appetite. The occupational therapy reported that she attended to groups, at times she feels overwhelmed by appear. I called her ECT psychiatrist at the [facility] and he agreed to reschedule her when she is discharged. On interview, the patient reports that she is doing fine, she is waiting for placement. Review of Systems Acute medical concerns: No Medical Review of Systems: unchanged Mental Status Exam Mental Status Exam Patient Appearance: Well Grooomed Patient Orientation: Person Level of Consciousness: Awake and Appropriate Patient Behavior: Appropriate and Cooperative Mood Description: Constricted Affect Description: Constricted Patient Cognition Impaired: No Ability to Follow Directions: Good Speech Pattern: Clear Memory Description: Intact Hallucinations: None Delusions: Not Present Thought Process: Intact Thought Content: positive for Circumstantial Judgement: Fair Diagnostics Vital Signs (24Hr): Vital Signs - 24 hr 05/02/21 18:00 05/03/21 08:24 05/03/21 11:22 Temperature 97.2 F 96.1 F L Pulse Rate 95 99 99 Respiratory Rate 14 Blood Pressure 152/75 H 123/63 123/63 Pulse Oximetry 96 93 Body Mass Index 26.2 Labs Results: 04/22/21 06:06 04/22/21 06:06 Medications Medications Current Medications Acetaminophen (Acetaminophen 325 Mg Tablet) 650 mg PO Q6H PRN PRN Reason: Headache/Pain Mild Scale (1-3) Al Hydroxide/Mg Hydroxide (Magnesium Hydrox/Alum Hydrox 30 Ml Oral.Susp) 30 ml PO Q6H PRN PRN Reason: Heartburn/Nausea Albuterol Sulfate (Albuterol Sulfate 90 Mcg 8 Gm Inhaler) 2 puff INHALE Q4H PRN PRN Reason: Shortness of Breath/Wheezing Atorvastatin Calcium (Atorvastatin Calcium 20 Mg Tablet) 20 mg PO BEDTIME [facility] Last Admin: 05/02/21 20:59 Dose: 20 mg Documented by: Chlorpromazine HCl (Chlorpromazine Hcl 25 Mg Tablet) 25 mg PO BID PRN PRN Reason: anxiety Last Admin: 05/02/21 21:52 Dose: 25 mg Documented by: Chlorpromazine HCl (Chlorpromazine Hcl 25 Mg Tablet) 50 mg PO BEDTIME [facility] Last Admin: 05/02/21 20:58 Dose: 50 mg Documented by: Clonidine HCl (Clonidine Hcl 0.2 Mg Tablet) 0.2 mg PO BID PRN; Protocol PRN Reason: anxiety Last Admin: 04/28/21 20:16 Dose: 0.2 mg Documented by: Fluoxetine HCl (Fluoxetine Hcl 20 Mg Capsule) 60 mg PO DAILY [facility] Last Admin: 05/03/21 08:24 Dose: 60 mg Documented by: Fluticasone/Vilanterol (Fluticasone/Vilanterol 100/25 Blst.W.Dev) 1 puff INHALE RDAILY [facility] Last Admin: 05/03/21 08:23 Dose: 1 puff Documented by: Hydroxyzine HCl (Hydroxyzine Hcl 25 Mg Tablet) 25 mg PO Q6H PRN PRN Reason: Anxiety Last Admin: 04/28/21 22:31 Dose: 25 mg Documented by: Magnesium Hydroxide (Milk Of Magnesia 30 Ml Oral.Susp) 30 ml PO DAILY PRN PRN Reason: Constipation Melatonin (Melatonin 3 Mg Tablet) 3 mg PO BEDTIME [facility] Last Admin: 05/02/21 20:59 Dose: 3 mg Documented by: Metoprolol Succinate (Metoprolol Succinate Er 12.5 Mg Halftab.Er.24h) 12.5 mg PO DAILY [facility]; Protocol Last Admin: 05/03/21 08:24 Dose: 12.5 mg Documented by: Nicotine Polacrilex (Nicotine Polacrilex 2 Mg Gum) 2 mg BUCCAL Q2H PRN PRN Reason: smoking cravings Risperidone (Risperidone 2 Mg Tablet) 2 mg PO BEDTIME [facility] Last Admin: 05/02/21 20:59 Dose: 2 mg Documented by: Risperidone (Risperidone 1 Mg Tablet) 1 mg PO DAILY [facility] Last Admin: 05/03/21 08:25 Dose: 1 mg Documented by: Tiotropium [place] (Tiotropium [place] 18 Mcg Cap.W.Dev) 2 puff INHALE RDAILY [facility] Last Admin: 05/03/21 08:24 Dose: 2 puff Documented by: Trazodone HCl (Trazodone Hcl 50 Mg Tablet) 50 mg PO BEDTIME PRN PRN Reason: Insomnia Last Admin: 05/01/21 23:18 Dose: 50 mg Documented by: Allergies Allergies Allergy/AdvReac Type Severity Reaction Status Date / Time adhesive AdvReac Unknown Verified 04/21/21 23:21 aspirin AdvReac Unknown Verified 04/21/21 23:20 epinephrine AdvReac Unknown Verified 04/21/21 23:21 Assessment & Plan Assessment & Plan (1) MDD (major depressive disorder), recurrent episode, moderate: Status: Acute Code(s): F33.1 - Major depressive disorder, recurrent, moderate (2) PTSD (post-traumatic stress disorder): Status: Acute Code(s): F43.10 - Post-traumatic stress disorder, unspecified Assessment and Plan: Pt is a 75 y.o. Who carries a dx of MDD recurrent and PTSD. She presented to [facility] on 04/20/21 after her contacted [facility] to do a wellness check on her after he was hospitalized at [place] for thrombosis. Katheryn endorsed sx of SI without plan or intent and increased anxiety. She current presents with sx of anxiety, SI with plan to OD on medication and intent and depressed mood. Has long hx of chronic depression, feelings of guilt and hopelessness. Hx of multiple hospitalizations for SI and plan to OD on medications. Meds are kept in locked box at home. No substance use or alcohol abuse reported. Plan: Continue same treatment. Gather collateral information Waiting for placement Continue Thorazine to 50 mg standing dose. I spent minutes with the patient and/or on the patient floor today, greater than?50% of which was spent counseling/coordinating care. Reason for contiued inpatient stay Substantial Risk for: inability to function, rapid decompensation and med/psych decompensation
[2021-05-03 18:00] VITALS: BP 130/62; PULSE 85; RESP 18; TEMP 36.6; O2SAT 96
[2021-05-03] MEDS: risperiDONE 2 MG TABLET PO (20:47)
[2021-05-03] MEDS: Atorvastatin Calcium 20 MG TABLET PO (20:48)
[2021-05-03] MEDS: chlorproMAZINE HCl 25 MG TABLET 50 MG PO (20:48)
[2021-05-03] MEDS: Melatonin 3 MG TABLET PO (20:48)
[2021-05-03] MEDS: traZODone HCL 50 MG TABLET PO (22:50)
[2021-05-04 06:00] VITALS: BP 113/58; PULSE 77; RESP 16; TEMP 36.1; O2SAT 96
[2021-05-04 07:00] VITALS: BMI 26.2
[2021-05-04] MEDS: FLUoxetine HCl 20 MG CAPSULE 60 MG PO (09:31)
[2021-05-04 09:32] VITALS: BP 113/58; PULSE 77
[2021-05-04] MEDS: Metoprolol Succinate ER 12.5 MG HALFTAB.ER.24H PO (09:32)
[2021-05-04] MEDS: risperiDONE 1 MG TABLET PO (09:32)
[2021-05-04] MEDS: Fluticasone/Vilanterol 100/25 BLST.W.DEV 1 PUFF INHALE (09:32)
--- NOTE | 2021-05-04 15:47 | P.PNPSI_ITS ---
Subjective Subjective Date of Service: 05/04/21 Reason For Visit: depressive disorder Subjective Notes: Conditional Voluntary Interim History: The nursing staff reported that the patient is doing fine, she sleeps well and has good appetite. On interview the patient denies feeling depressed at this moment and she is able to contract for safety. She complained of a sporadic insomnia and I advised her to use p.r.n. trazodone. Mental Status Exam Mental Status Exam Patient Appearance: Well Grooomed Patient Orientation: Person Level of Consciousness: Awake Patient Behavior: Cooperative Mood Description: Calm Affect Description: Constricted Patient Cognition Impaired: No Ability to Follow Directions: Good Speech Pattern: Appropriate Hallucinations: None Delusions: Not Present Thought Process: Goal Oriented Thought Content: positive for Circumstantial Judgement: Fair Diagnostics Vital Signs (24Hr): Vital Signs - 24 hr 05/03/21 18:00 05/04/21 06:00 05/04/21 09:32 Temperature 97.9 F 97.0 F Pulse Rate 85 77 77 Respiratory Rate 18 16 Blood Pressure 130/62 113/58 L 113/58 L Pulse Oximetry 96 96 Body Mass Index 26.2 Labs Results: 04/22/21 06:06 04/22/21 06:06 Medications Medications Current Medications Acetaminophen (Acetaminophen 325 Mg Tablet) 650 mg PO Q6H PRN PRN Reason: Headache/Pain Mild Scale (1-3) Al Hydroxide/Mg Hydroxide (Magnesium Hydrox/Alum Hydrox 30 Ml Oral.Susp) 30 ml PO Q6H PRN PRN Reason: Heartburn/Nausea Albuterol Sulfate (Albuterol Sulfate 90 Mcg 8 Gm Inhaler) 2 puff INHALE Q4H PRN PRN Reason: Shortness of Breath/Wheezing Atorvastatin Calcium (Atorvastatin Calcium 20 Mg Tablet) 20 mg PO BEDTIME [facility] Last Admin: 05/03/21 20:48 Dose: 20 mg Documented by: Chlorpromazine HCl (Chlorpromazine Hcl 25 Mg Tablet) 25 mg PO BID PRN PRN Reason: anxiety Last Admin: 05/02/21 21:52 Dose: 25 mg Documented by: Chlorpromazine HCl (Chlorpromazine Hcl 25 Mg Tablet) 50 mg PO BEDTIME [facility] Last Admin: 05/03/21 20:48 Dose: 50 mg Documented by: Clonidine HCl (Clonidine Hcl 0.2 Mg Tablet) 0.2 mg PO BID PRN; Protocol PRN Reason: anxiety Last Admin: 04/28/21 20:16 Dose: 0.2 mg Documented by: Fluoxetine HCl (Fluoxetine Hcl 20 Mg Capsule) 60 mg PO DAILY [facility] Last Admin: 05/04/21 09:31 Dose: 60 mg Documented by: Fluticasone/Vilanterol (Fluticasone/Vilanterol 100/25 Blst.W.Dev) 1 puff INHALE RDAILY [facility] Last Admin: 05/04/21 09:32 Dose: 1 puff Documented by: Hydroxyzine HCl (Hydroxyzine Hcl 25 Mg Tablet) 25 mg PO Q6H PRN PRN Reason: Anxiety Last Admin: 04/28/21 22:31 Dose: 25 mg Documented by: Magnesium Hydroxide (Milk Of Magnesia 30 Ml Oral.Susp) 30 ml PO DAILY PRN PRN Reason: Constipation Melatonin (Melatonin 3 Mg Tablet) 3 mg PO BEDTIME [facility] Last Admin: 05/03/21 20:48 Dose: 3 mg Documented by: Metoprolol Succinate (Metoprolol Succinate Er 12.5 Mg Halftab.Er.24h) 12.5 mg PO DAILY [facility]; Protocol Last Admin: 05/04/21 09:32 Dose: 12.5 mg Documented by: Nicotine Polacrilex (Nicotine Polacrilex 2 Mg Gum) 2 mg BUCCAL Q2H PRN PRN Reason: smoking cravings Risperidone (Risperidone 2 Mg Tablet) 2 mg PO BEDTIME [facility] Last Admin: 05/03/21 20:47 Dose: 2 mg Documented by: Risperidone (Risperidone 1 Mg Tablet) 1 mg PO DAILY [facility] Last Admin: 05/04/21 09:32 Dose: 1 mg Documented by: Tiotropium [place] (Tiotropium [place] 18 Mcg Cap.W.Dev) 2 puff INHALE RDAILY [facility] Last Admin: 05/04/21 12:10 Dose: 2 puff Documented by: Trazodone HCl (Trazodone Hcl 50 Mg Tablet) 50 mg PO BEDTIME PRN PRN Reason: Insomnia Last Admin: 05/03/21 22:50 Dose: 50 mg Documented by: Allergies Allergies Allergy/AdvReac Type Severity Reaction Status Date / Time adhesive AdvReac Unknown Verified 04/21/21 23:21 aspirin AdvReac Unknown Verified 04/21/21 23:20 epinephrine AdvReac Unknown Verified 04/21/21 23:21 Assessment & Plan Assessment & Plan (1) MDD (major depressive disorder), recurrent episode, moderate: Status: Acute Code(s): F33.1 - Major depressive disorder, recurrent, moderate (2) PTSD (post-traumatic stress disorder): Status: Acute Code(s): F43.10 - Post-traumatic stress disorder, unspecified Assessment and Plan: Pt is a 75 y.o. Who carries a dx of MDD recurrent and PTSD. She presented to [facility] on 04/20/21 after her contacted [facility] to do a wellness check on her after he was hospitalized at [place] for thrombosis. Katheryn endorsed sx of SI without plan or intent and increased anxiety. She current presents with sx of anxiety, SI with plan to OD on medication and intent and depressed mood. Has long hx of chronic depression, feelings of guilt and hopelessness. Hx of multiple hospitalizations for SI and plan to OD on medications. Meds are kept in locked box at home. No substance use or alcohol abuse reported. Plan: Continue same treatment. Gather collateral information Waiting for placement. Most likely discharge on Saturday Continue Thorazine to 50 mg standing dose. I spent minutes with the patient and/or on the patient floor today, greater than?50% of which was spent counseling/coordinating care. Reason for contiued inpatient stay Substantial Risk for: inability to function, rapid decompensation and med/psych decompensation
[2021-05-04] MEDS: chlorproMAZINE HCl 25 MG TABLET PO (17:44)
[2021-05-04 20:00] VITALS: BP 207/104; PULSE 82; RESP 20; TEMP 37.1; O2SAT 95
[2021-05-04] MEDS: Atorvastatin Calcium 20 MG TABLET PO (20:38)
[2021-05-04] MEDS: hydrOXYzine HCL 25 MG TABLET PO (20:38)
[2021-05-04] MEDS: risperiDONE 2 MG TABLET PO (20:38)
[2021-05-04] MEDS: Melatonin 3 MG TABLET PO (20:38)
[2021-05-04 21:00] VITALS: BP 179/83; PULSE 83
[2021-05-04] MEDS: chlorproMAZINE HCl 25 MG TABLET 50 MG PO (21:20)
[2021-05-05 08:15] VITALS: BP 148/69; PULSE 85; RESP 15; TEMP 36.4; O2SAT 94
[2021-05-05] MEDS: Fluticasone/Vilanterol 100/25 BLST.W.DEV 1 PUFF INHALE (08:22)
[2021-05-05 08:23] VITALS: BP 148/69; PULSE 85
[2021-05-05] MEDS: risperiDONE 1 MG TABLET PO (08:23)
[2021-05-05] MEDS: FLUoxetine HCl 20 MG CAPSULE 60 MG PO (08:23)
[2021-05-05] MEDS: Metoprolol Succinate ER 12.5 MG HALFTAB.ER.24H PO (08:23)
--- NOTE | 2021-05-05 13:56 | P.PNPSI_ITS ---
Subjective Subjective Date of Service: 05/05/21 Reason For Visit: depressive disorder Subjective Notes: Conditional Voluntary Interim History: The nursing staff reported the patient had been with normal vital signs, pleasant and cooperative but she gets upset with a peer who follows her everywhere. The social media assistant reported that in the past she had in-home services but she is extremely codependent to her . Today the social media assistant on interview reported that she had chronic suicidal ideation and being discharged to herself could put a risk on her. On interview, the patient reports chronic dysphoria and chronic suicidal ideation and she stated that she has never been alone by herself in her apartment. We will discuss with the team about appropriate discharge plan Medication Compliance: Yes Side effects from medications: No Attending Groups: Yes Review of Systems Acute medical concerns: No Medical Review of Systems: unchanged Mental Status Exam Mental Status Exam Patient Appearance: Well Grooomed Patient Orientation: Person and Situation Level of Consciousness: Awake and Appropriate Patient Behavior: Dependent, Cooperative and Passive Mood Description: Depressed Affect Description: Constricted Patient Cognition Impaired: No Ability to Follow Directions: Good Speech Pattern: Clear Hallucinations: None Delusions: Not Present Thought Process: Linear Thought Content: positive for Circumstantial, positive for Perseveration and positive for Poverty of Content Judgement: Fair Diagnostics Vital Signs (24Hr): Vital Signs - 24 hr 05/04/21 20:00 05/04/21 21:00 05/05/21 08:15 Temperature 98.8 F 97.5 F Pulse Rate 82 83 85 Respiratory Rate 20 15 Blood Pressure 207/104 H 179/83 H 148/69 H Pulse Oximetry 95 94 05/05/21 08:23 Temperature Pulse Rate 85 Respiratory Rate Blood Pressure 148/69 H Pulse Oximetry Body Mass Index 26.2 Labs Results: 04/22/21 06:06 04/22/21 06:06 Medications Medications Current Medications Acetaminophen (Acetaminophen 325 Mg Tablet) 650 mg PO Q6H PRN PRN Reason: Headache/Pain Mild Scale (1-3) Al Hydroxide/Mg Hydroxide (Magnesium Hydrox/Alum Hydrox 30 Ml Oral.Susp) 30 ml PO Q6H PRN PRN Reason: Heartburn/Nausea Albuterol Sulfate (Albuterol Sulfate 90 Mcg 8 Gm Inhaler) 2 puff INHALE Q4H PRN PRN Reason: Shortness of Breath/Wheezing Atorvastatin Calcium (Atorvastatin Calcium 20 Mg Tablet) 20 mg PO BEDTIME [facility] Last Admin: 05/04/21 20:38 Dose: 20 mg Documented by: Chlorpromazine HCl (Chlorpromazine Hcl 25 Mg Tablet) 25 mg PO BID PRN PRN Reason: anxiety Last Admin: 05/04/21 17:44 Dose: 25 mg Documented by: Chlorpromazine HCl (Chlorpromazine Hcl 25 Mg Tablet) 50 mg PO BEDTIME [facility] Last Admin: 05/04/21 21:20 Dose: 50 mg Documented by: Clonidine HCl (Clonidine Hcl 0.2 Mg Tablet) 0.2 mg PO BID PRN; Protocol PRN Reason: anxiety Last Admin: 04/28/21 20:16 Dose: 0.2 mg Documented by: Fluoxetine HCl (Fluoxetine Hcl 20 Mg Capsule) 60 mg PO DAILY [facility] Last Admin: 05/05/21 08:23 Dose: 60 mg Documented by: Fluticasone/Vilanterol (Fluticasone/Vilanterol 100/25 Blst.W.Dev) 1 puff INHALE RDAILY [facility] Last Admin: 05/05/21 08:22 Dose: 1 puff Documented by: Hydroxyzine HCl (Hydroxyzine Hcl 25 Mg Tablet) 25 mg PO Q6H PRN PRN Reason: Anxiety Last Admin: 05/04/21 20:38 Dose: 25 mg Documented by: Magnesium Hydroxide (Milk Of Magnesia 30 Ml Oral.Susp) 30 ml PO DAILY PRN PRN Reason: Constipation Melatonin (Melatonin 3 Mg Tablet) 3 mg PO BEDTIME [facility] Last Admin: 05/04/21 20:38 Dose: 3 mg Documented by: Metoprolol Succinate (Metoprolol Succinate Er 12.5 Mg Halftab.Er.24h) 12.5 mg PO DAILY [facility]; Protocol Last Admin: 05/05/21 08:23 Dose: 12.5 mg Documented by: Nicotine Polacrilex (Nicotine Polacrilex 2 Mg Gum) 2 mg BUCCAL Q2H PRN PRN Reason: smoking cravings Risperidone (Risperidone 2 Mg Tablet) 2 mg PO BEDTIME [facility] Last Admin: 05/04/21 20:38 Dose: 2 mg Documented by: Risperidone (Risperidone 1 Mg Tablet) 1 mg PO DAILY [facility] Last Admin: 05/05/21 08:23 Dose: 1 mg Documented by: Tiotropium [place] (Tiotropium [place] 18 Mcg Cap.W.Dev) 2 puff INHALE RDAILY [facility] Last Admin: 05/05/21 08:22 Dose: 2 puff Documented by: Trazodone HCl (Trazodone Hcl 50 Mg Tablet) 50 mg PO BEDTIME PRN PRN Reason: Insomnia Last Admin: 05/03/21 22:50 Dose: 50 mg Documented by: Allergies Allergies Allergy/AdvReac Type Severity Reaction Status Date / Time adhesive AdvReac Unknown Verified 04/21/21 23:21 aspirin AdvReac Unknown Verified 04/21/21 23:20 epinephrine AdvReac Unknown Verified 04/21/21 23:21 Assessment & Plan Assessment & Plan (1) MDD (major depressive disorder), recurrent episode, moderate: Status: Acute Code(s): F33.1 - Major depressive disorder, recurrent, moderate (2) PTSD (post-traumatic stress disorder): Status: Acute Code(s): F43.10 - Post-traumatic stress disorder, unspecified Assessment and Plan: Pt is a 75 y.o. Who carries a dx of MDD recurrent and PTSD. She presented to [facility] crisis on 04/20/21 after her contacted [facility] to do a wellness check on her after he was hospitalized at [place] for thrombosis. Katheryn endorsed sx of SI without plan or intent and increased anxiety. She current presents with sx of anxiety, SI with plan to OD on medication and intent and depressed mood. Has long hx of chronic depression, feelings of guilt and hopelessness. Hx of multiple hospitalizations for SI and plan to OD on medications. Meds are kept in locked box at home. No substance use or alcohol abuse reported. Plan: Continue same treatment. Gather collateral information Waiting for placement. Most likely discharge on Saturday or early next week Continue Thorazine to 50 mg standing dose. I spent minutes with the patient and/or on the patient floor today, greater than?50% of which was spent counseling/coordinating care. Reason for contiued inpatient stay Substantial Risk for: inability to function, rapid decompensation and med/psych decompensation
[2021-05-05] MEDS: chlorproMAZINE HCl 25 MG TABLET 50 MG PO (20:05)
[2021-05-05] MEDS: Atorvastatin Calcium 20 MG TABLET PO (20:05)
[2021-05-05] MEDS: risperiDONE 2 MG TABLET PO (20:05)
[2021-05-05] MEDS: Melatonin 3 MG TABLET PO (20:05)
[2021-05-05 20:11] VITALS: BP 173/78; PULSE 74; RESP 17; TEMP 36.6; O2SAT 93
[2021-05-05 22:35] VITALS: BP 138/94; PULSE 67
[2021-05-05] MEDS: cloNIDine HCL 0.2 MG TABLET PO (22:35)
[2021-05-06] MEDS: Acetaminophen 325 MG TABLET 650 MG PO (04:16)
[2021-05-06 08:07] VITALS: BP 122/59; PULSE 84; RESP 17; TEMP 36.2; O2SAT 94
[2021-05-06] MEDS: FLUoxetine HCl 20 MG CAPSULE 60 MG PO (08:11)
[2021-05-06 08:12] VITALS: BP 122/59; PULSE 84
[2021-05-06] MEDS: Metoprolol Succinate ER 12.5 MG HALFTAB.ER.24H PO (08:12)
[2021-05-06] MEDS: risperiDONE 1 MG TABLET PO (08:13)
[2021-05-06] MEDS: Fluticasone/Vilanterol 100/25 BLST.W.DEV 1 PUFF INHALE (08:27)
[2021-05-06] MEDS: Throat Lozenge, Medicated LOZENGE 1 LOZENGE MUCOUS MEM ×2 (14:10→21:13)
[2021-05-06] MEDS: chlorproMAZINE HCl 25 MG TABLET PO (16:28)
[2021-05-06] MEDS: hydrOXYzine HCL 25 MG TABLET PO (16:28)
--- NOTE | 2021-05-06 16:58 | HO.PSYCHPN ---
Subjective Subjective Date of Service: 05/06/21 Reason For Visit: depressive disorder Interim History: pt reports her mood is pretty good. she denies SI since yesterday. she has no questions, concerns, or complaints. per staff, pleasant and med-compliant. slept well last night, eating well. expressed SI to hang herself with bed sheet yesterday. Mental Status Exam Mental Status Exam Patient Appearance: Well Grooomed Patient Orientation: Person and Situation Level of Consciousness: Awake and Appropriate Patient Behavior: Dependent, Cooperative and Passive Mood Description: Depressed Affect Description: Constricted Patient Cognition Impaired: No Ability to Follow Directions: Good Speech Pattern: Clear Hallucinations: None Delusions: Not Present Thought Process: Linear Thought Content: positive for Circumstantial, positive for Perseveration and positive for Poverty of Content Judgement: Fair Diagnostics Vital Signs (24Hr): Vital Signs - 24 hr 05/05/21 20:11 05/05/21 22:35 05/06/21 08:07 Temperature 97.8 F 97.1 F Pulse Rate 74 67 84 Respiratory Rate 17 17 Blood Pressure 173/78 H 138/94 H 122/59 L Pulse Oximetry 93 94 05/06/21 08:12 Temperature Pulse Rate 84 Respiratory Rate Blood Pressure 122/59 L Pulse Oximetry Body Mass Index 26.2 Labs Results: 04/22/21 06:06 04/22/21 06:06 Medications Medications Current Medications Acetaminophen (Acetaminophen 325 Mg Tablet) 650 mg PO Q6H PRN PRN Reason: Headache/Pain Mild Scale (1-3) Last Admin: 05/06/21 04:16 Dose: 650 mg Documented by: Al Hydroxide/Mg Hydroxide (Magnesium Hydrox/Alum Hydrox 30 Ml Oral.Susp) 30 ml PO Q6H PRN PRN Reason: Heartburn/Nausea Albuterol Sulfate (Albuterol Sulfate 90 Mcg 8 Gm Inhaler) 2 puff INHALE Q4H PRN PRN Reason: Shortness of Breath/Wheezing Atorvastatin Calcium (Atorvastatin Calcium 20 Mg Tablet) 20 mg PO BEDTIME [facility] Last Admin: 05/05/21 20:05 Dose: 20 mg Documented by: Benzocaine (Throat Lozenge, Medicated Lozenge) 1 lozenge MUCOUS MEM Q2H PRN PRN Reason: Sore Throat Last Admin: 05/06/21 14:10 Dose: 1 lozenge Documented by: Chlorpromazine HCl (Chlorpromazine Hcl 25 Mg Tablet) 25 mg PO BID PRN PRN Reason: anxiety Last Admin: 05/06/21 16:28 Dose: 25 mg Documented by: Chlorpromazine HCl (Chlorpromazine Hcl 25 Mg Tablet) 50 mg PO BEDTIME [facility] Last Admin: 05/05/21 20:05 Dose: 50 mg Documented by: Clonidine HCl (Clonidine Hcl 0.2 Mg Tablet) 0.2 mg PO BID PRN; Protocol PRN Reason: anxiety Last Admin: 05/05/21 22:35 Dose: 0.2 mg Documented by: Fluoxetine HCl (Fluoxetine Hcl 20 Mg Capsule) 60 mg PO DAILY [facility] Last Admin: 05/06/21 08:11 Dose: 60 mg Documented by: Fluticasone/Vilanterol (Fluticasone/Vilanterol 100/25 Blst.W.Dev) 1 puff INHALE RDAILY [facility] Last Admin: 05/06/21 08:27 Dose: 1 puff Documented by: Hydroxyzine HCl (Hydroxyzine Hcl 25 Mg Tablet) 25 mg PO Q6H PRN PRN Reason: Anxiety Last Admin: 05/06/21 16:28 Dose: 25 mg Documented by: Magnesium Hydroxide (Milk Of Magnesia 30 Ml Oral.Susp) 30 ml PO DAILY PRN PRN Reason: Constipation Melatonin (Melatonin 3 Mg Tablet) 3 mg PO BEDTIME [facility] Last Admin: 05/05/21 20:05 Dose: 3 mg Documented by: Metoprolol Succinate (Metoprolol Succinate Er 12.5 Mg Halftab.Er.24h) 12.5 mg PO DAILY [facility]; Protocol Last Admin: 05/06/21 08:12 Dose: 12.5 mg Documented by: Nicotine Polacrilex (Nicotine Polacrilex 2 Mg Gum) 2 mg BUCCAL Q2H PRN PRN Reason: smoking cravings Risperidone (Risperidone 2 Mg Tablet) 2 mg PO BEDTIME [facility] Last Admin: 05/05/21 20:05 Dose: 2 mg Documented by: Risperidone (Risperidone 1 Mg Tablet) 1 mg PO DAILY [facility] Last Admin: 05/06/21 08:13 Dose: 1 mg Documented by: Tiotropium [place] (Tiotropium [place] 18 Mcg Cap.W.Dev) 2 puff INHALE RDAILY [facility] Last Admin: 05/06/21 08:27 Dose: 2 puff Documented by: Trazodone HCl (Trazodone Hcl 50 Mg Tablet) 50 mg PO BEDTIME PRN PRN Reason: Insomnia Last Admin: 05/03/21 22:50 Dose: 50 mg Documented by: Allergies Allergies Allergy/AdvReac Type Severity Reaction Status Date / Time adhesive AdvReac Unknown Verified 04/21/21 23:21 aspirin AdvReac Unknown Verified 04/21/21 23:20 epinephrine AdvReac Unknown Verified 04/21/21 23:21 Assessment & Plan Assessment & Plan (1) MDD (major depressive disorder), recurrent episode, moderate: Status: Acute Code(s): F33.1 - Major depressive disorder, recurrent, moderate (2) PTSD (post-traumatic stress disorder): Status: Acute Code(s): F43.10 - Post-traumatic stress disorder, unspecified Assessment and Plan: Pt is a 75 y.o. Who carries a dx of MDD recurrent and PTSD. She presented to [facility] on 04/20/21 after her contacted [facility] to do a wellness check on her after he was hospitalized at [place] for thrombosis. Katheryn endorsed sx of SI without plan or intent and increased anxiety. She current presents with sx of anxiety, SI with plan to OD on medication and intent and depressed mood. Has long hx of chronic depression, feelings of guilt and hopelessness. Hx of multiple hospitalizations for SI and plan to OD on medications. Meds are kept in locked box at home. No substance use or alcohol abuse reported. Plan: Continue same treatment. Gather collateral information Waiting for placement. Most likely discharge on Saturday or early next week Continue Thorazine to 50 mg standing dose. I spent minutes with the patient and/or on the patient floor today, greater than?50% of which was spent counseling/coordinating care. Reason for contiued inpatient stay Substantial Risk for: harm to self
[2021-05-06 20:50] VITALS: BP 139/77; PULSE 62; RESP 17; TEMP 37.3; O2SAT 92
[2021-05-06] MEDS: risperiDONE 2 MG TABLET PO (21:05)
[2021-05-06] MEDS: chlorproMAZINE HCl 25 MG TABLET 50 MG PO (21:05)
[2021-05-06] MEDS: Melatonin 3 MG TABLET PO (21:05)
[2021-05-06] MEDS: Atorvastatin Calcium 20 MG TABLET PO (21:05)
[2021-05-07] MEDS: FLUoxetine HCl 20 MG CAPSULE 60 MG PO (09:13)
[2021-05-07] MEDS: hydrOXYzine HCL 25 MG TABLET PO (09:13)
[2021-05-07] MEDS: risperiDONE 1 MG TABLET PO (09:13)
[2021-05-07] MEDS: Fluticasone/Vilanterol 100/25 BLST.W.DEV 1 PUFF INHALE (09:22)
[2021-05-07 10:05] VITALS: BP 110/58; PULSE 81; RESP 16; TEMP 36.6; O2SAT 96
[2021-05-07 10:10] VITALS: BP 110/58; PULSE 81
[2021-05-07] MEDS: Metoprolol Succinate ER 12.5 MG HALFTAB.ER.24H PO (10:10)
--- NOTE | 2021-05-07 14:35 | P.PNPSI_ITS ---
Subjective Subjective Date of Service: 05/07/21 Reason For Visit: depressive disorder Interim History: pt reports her mood is OK today. she has had SI sometime in the past 2 days, however. she is interested in discharge as soon as tomorrow. per staff, pt has become distressed regarding an intrusive peer who seems to have fixated upon her. taking meds, eating and sleeping well. Mental Status Exam Mental Status Exam Patient Appearance: Well Grooomed Patient Orientation: Person and Situation Level of Consciousness: Awake and Appropriate Patient Behavior: Dependent, Cooperative and Passive Mood Description: Depressed Affect Description: Constricted Patient Cognition Impaired: No Ability to Follow Directions: Good Speech Pattern: Clear Hallucinations: None Delusions: Not Present Thought Process: Linear Thought Content: positive for Circumstantial, positive for Perseveration and positive for Poverty of Content Judgement: Fair Diagnostics Vital Signs (24Hr): Vital Signs - 24 hr 05/06/21 20:50 05/07/21 10:05 05/07/21 10:10 Temperature 99.1 F 97.8 F Pulse Rate 62 81 81 Respiratory Rate 17 16 Blood Pressure 139/77 110/58 L 110/58 L Pulse Oximetry 92 96 Body Mass Index 26.2 Labs Results: 04/22/21 06:06 04/22/21 06:06 Medications Medications Current Medications Acetaminophen (Acetaminophen 325 Mg Tablet) 650 mg PO Q6H PRN PRN Reason: Headache/Pain Mild Scale (1-3) Last Admin: 05/06/21 04:16 Dose: 650 mg Documented by: Al Hydroxide/Mg Hydroxide (Magnesium Hydrox/Alum Hydrox 30 Ml Oral.Susp) 30 ml PO Q6H PRN PRN Reason: Heartburn/Nausea Albuterol Sulfate (Albuterol Sulfate 90 Mcg 8 Gm Inhaler) 2 puff INHALE Q4H PRN PRN Reason: Shortness of Breath/Wheezing Atorvastatin Calcium (Atorvastatin Calcium 20 Mg Tablet) 20 mg PO BEDTIME [facility] Last Admin: 05/06/21 21:05 Dose: 20 mg Documented by: Benzocaine (Throat Lozenge, Medicated Lozenge) 1 lozenge MUCOUS MEM Q2H PRN PRN Reason: Sore Throat Last Admin: 05/06/21 21:13 Dose: 1 lozenge Documented by: Chlorpromazine HCl (Chlorpromazine Hcl 25 Mg Tablet) 25 mg PO BID PRN PRN Reason: anxiety Last Admin: 05/06/21 16:28 Dose: 25 mg Documented by: Chlorpromazine HCl (Chlorpromazine Hcl 25 Mg Tablet) 50 mg PO BEDTIME [facility] Last Admin: 05/06/21 21:05 Dose: 50 mg Documented by: Clonidine HCl (Clonidine Hcl 0.2 Mg Tablet) 0.2 mg PO BID PRN; Protocol PRN Reason: anxiety Last Admin: 05/05/21 22:35 Dose: 0.2 mg Documented by: Fluoxetine HCl (Fluoxetine Hcl 20 Mg Capsule) 60 mg PO DAILY [facility] Last Admin: 05/07/21 09:13 Dose: 60 mg Documented by: Fluticasone/Vilanterol (Fluticasone/Vilanterol 100/25 Blst.W.Dev) 1 puff INHALE RDAILY [facility] Last Admin: 05/07/21 09:22 Dose: 1 puff Documented by: Hydroxyzine HCl (Hydroxyzine Hcl 25 Mg Tablet) 25 mg PO Q6H PRN PRN Reason: Anxiety Last Admin: 05/07/21 09:13 Dose: 25 mg Documented by: Magnesium Hydroxide (Milk Of Magnesia 30 Ml Oral.Susp) 30 ml PO DAILY PRN PRN Reason: Constipation Melatonin (Melatonin 3 Mg Tablet) 3 mg PO BEDTIME [facility] Last Admin: 05/06/21 21:05 Dose: 3 mg Documented by: Metoprolol Succinate (Metoprolol Succinate Er 12.5 Mg Halftab.Er.24h) 12.5 mg PO DAILY [facility]; Protocol Last Admin: 05/07/21 10:10 Dose: 12.5 mg Documented by: Nicotine Polacrilex (Nicotine Polacrilex 2 Mg Gum) 2 mg BUCCAL Q2H PRN PRN Reason: smoking cravings Risperidone (Risperidone 2 Mg Tablet) 2 mg PO BEDTIME [facility] Last Admin: 05/06/21 21:05 Dose: 2 mg Documented by: Risperidone (Risperidone 1 Mg Tablet) 1 mg PO DAILY [facility] Last Admin: 05/07/21 09:13 Dose: 1 mg Documented by: Tiotropium [place] (Tiotropium [place] 18 Mcg Cap.W.Dev) 2 puff INHALE RDAILY [facility] Last Admin: 05/07/21 09:16 Dose: 2 puff Documented by: Trazodone HCl (Trazodone Hcl 50 Mg Tablet) 50 mg PO BEDTIME PRN PRN Reason: Insomnia Last Admin: 05/03/21 22:50 Dose: 50 mg Documented by: Allergies Allergies Allergy/AdvReac Type Severity Reaction Status Date / Time adhesive AdvReac Unknown Verified 04/21/21 23:21 aspirin AdvReac Unknown Verified 04/21/21 23:20 epinephrine AdvReac Unknown Verified 04/21/21 23:21 Assessment & Plan Assessment & Plan (1) MDD (major depressive disorder), recurrent episode, moderate: Status: Acute Code(s): F33.1 - Major depressive disorder, recurrent, moderate (2) PTSD (post-traumatic stress disorder): Status: Acute Code(s): F43.10 - Post-traumatic stress disorder, unspecified Assessment and Plan: Pt is a 75 y.o. Who carries a dx of MDD recurrent and PTSD. She presented to [facility] crisis on 04/20/21 after her contacted [facility] to do a wellness check on her after he was hospitalized at [place] for thrombosis. Katheryn endorsed sx of SI without plan or intent and increased anxiety. She current presents with sx of anxiety, SI with plan to OD on medication and intent and depressed mood. Has long hx of chronic depression, feelings of guilt and hopelessness. Hx of multiple hospitalizations for SI and plan to OD on medications. Meds are kept in locked box at home. No substance use or alcohol abuse reported. Plan: Continue same treatment. Gather collateral information Waiting for placement. Continue Thorazine to 50 mg standing dose. I spent minutes with the patient and/or on the patient floor today, greater than?50% of which was spent counseling/coordinating care. Reason for contiued inpatient stay Substantial Risk for: inability to function
[2021-05-07] MEDS: Throat Lozenge, Medicated LOZENGE 1 LOZENGE MUCOUS MEM (18:32)
[2021-05-07 20:17] VITALS: BP 133/75; PULSE 69; RESP 18; TEMP 36.4; O2SAT 95
[2021-05-07 20:39] VITALS: BP 133/75; PULSE 69
[2021-05-07] MEDS: risperiDONE 2 MG TABLET PO (20:39)
[2021-05-07] MEDS: cloNIDine HCL 0.2 MG TABLET PO (20:39)
[2021-05-07] MEDS: chlorproMAZINE HCl 25 MG TABLET 50 MG PO (20:39)
[2021-05-07] MEDS: Atorvastatin Calcium 20 MG TABLET PO (20:40)
[2021-05-07] MEDS: Melatonin 3 MG TABLET PO (20:40)
[2021-05-08 06:00] VITALS: BP 126/67; PULSE 73; O2SAT 95
[2021-05-08] MEDS: Metoprolol Succinate ER 12.5 MG HALFTAB.ER.24H PO (08:45)
[2021-05-08] MEDS: FLUoxetine HCl 20 MG CAPSULE 60 MG PO (08:45)
[2021-05-08] MEDS: Fluticasone/Vilanterol 100/25 BLST.W.DEV 1 PUFF INHALE (08:46)
[2021-05-08] MEDS: risperiDONE 1 MG TABLET PO (08:46)
[2021-05-08] MEDS: Throat Lozenge, Medicated LOZENGE 1 LOZENGE MUCOUS MEM ×2 (11:14→15:35)
--- NOTE | 2021-05-08 15:28 | P.PNPSI_ITS ---
Subjective Subjective Date of Service: 05/08/21 Reason For Visit: depressive disorder Subjective Notes: Conditional Voluntary Interim History: The nursing staff reported that over the weekend the patient was actively participating in groups, symptoms she was asked isolated in her room but mostly okay. The family is going to have several meetings regarding disposition. Historically, the patient is very labile and needs support. Last weekend she verbalized ADL hanging herself if she goes by herself alone. On interview, the patient was pleasant. But dysphoric, she would need for ancillary staff for ADL is Mental Status Exam Mental Status Exam Patient Appearance: Well Grooomed Patient Orientation: Person Level of Consciousness: Awake Patient Behavior: Cooperative Mood Description: Constricted Affect Description: Constricted Patient Cognition Impaired: Yes Ability to Follow Directions: Good Speech Pattern: Clear Memory Description: Intact Hallucinations: None Thought Process: Goal Oriented Thought Content: positive for Circumstantial Judgement: Fair Diagnostics Vital Signs (24Hr): Vital Signs - 24 hr 05/07/21 20:17 05/07/21 20:39 05/08/21 06:00 Temperature 97.6 F Pulse Rate 69 69 73 Respiratory Rate 18 Blood Pressure 133/75 133/75 126/67 Pulse Oximetry 95 95 Body Mass Index 26.2 Labs Results: 04/22/21 06:06 04/22/21 06:06 Medications Medications Current Medications Acetaminophen (Acetaminophen 325 Mg Tablet) 650 mg PO Q6H PRN PRN Reason: Headache/Pain Mild Scale (1-3) Last Admin: 05/06/21 04:16 Dose: 650 mg Documented by: Al Hydroxide/Mg Hydroxide (Magnesium Hydrox/Alum Hydrox 30 Ml Oral.Susp) 30 ml PO Q6H PRN PRN Reason: Heartburn/Nausea Albuterol Sulfate (Albuterol Sulfate 90 Mcg 8 Gm Inhaler) 2 puff INHALE Q4H PRN PRN Reason: Shortness of Breath/Wheezing Atorvastatin Calcium (Atorvastatin Calcium 20 Mg Tablet) 20 mg PO BEDTIME [facility] Last Admin: 05/07/21 20:40 Dose: 20 mg Documented by: Benzocaine (Throat Lozenge, Medicated Lozenge) 1 lozenge MUCOUS MEM Q2H PRN PRN Reason: Sore Throat Last Admin: 05/08/21 11:14 Dose: 1 lozenge Documented by: Chlorpromazine HCl (Chlorpromazine Hcl 25 Mg Tablet) 25 mg PO BID PRN PRN Reason: anxiety Last Admin: 05/06/21 16:28 Dose: 25 mg Documented by: Chlorpromazine HCl (Chlorpromazine Hcl 25 Mg Tablet) 50 mg PO BEDTIME [facility] Last Admin: 05/07/21 20:39 Dose: 50 mg Documented by: Clonidine HCl (Clonidine Hcl 0.2 Mg Tablet) 0.2 mg PO BID PRN; Protocol PRN Reason: anxiety Last Admin: 05/07/21 20:39 Dose: 0.2 mg Documented by: Fluoxetine HCl (Fluoxetine Hcl 20 Mg Capsule) 60 mg PO DAILY [facility] Last Admin: 05/08/21 08:45 Dose: 60 mg Documented by: Fluticasone/Vilanterol (Fluticasone/Vilanterol 100/25 Blst.W.Dev) 1 puff INHALE RDAILY [facility] Last Admin: 05/08/21 08:46 Dose: 1 puff Documented by: Hydroxyzine HCl (Hydroxyzine Hcl 25 Mg Tablet) 25 mg PO Q6H PRN PRN Reason: Anxiety Last Admin: 05/07/21 09:13 Dose: 25 mg Documented by: Magnesium Hydroxide (Milk Of Magnesia 30 Ml Oral.Susp) 30 ml PO DAILY PRN PRN Reason: Constipation Melatonin (Melatonin 3 Mg Tablet) 3 mg PO BEDTIME [facility] Last Admin: 05/07/21 20:40 Dose: 3 mg Documented by: Metoprolol Succinate (Metoprolol Succinate Er 12.5 Mg Halftab.Er.24h) 12.5 mg PO DAILY [facility]; Protocol Last Admin: 05/08/21 08:45 Dose: 12.5 mg Documented by: Nicotine Polacrilex (Nicotine Polacrilex 2 Mg Gum) 2 mg BUCCAL Q2H PRN PRN Reason: smoking cravings Risperidone (Risperidone 2 Mg Tablet) 2 mg PO BEDTIME [facility] Last Admin: 05/07/21 20:39 Dose: 2 mg Documented by: Risperidone (Risperidone 1 Mg Tablet) 1 mg PO DAILY [facility] Last Admin: 05/08/21 08:46 Dose: 1 mg Documented by: Tiotropium Calvin (Tiotropium Calvin 18 Mcg Cap.W.Dev) 2 puff INHALE RDAILY [facility] Last Admin: 05/08/21 08:46 Dose: 2 puff Documented by: Trazodone HCl (Trazodone Hcl 50 Mg Tablet) 50 mg PO BEDTIME PRN PRN Reason: Insomnia Last Admin: 05/03/21 22:50 Dose: 50 mg Documented by: Allergies Allergies Allergy/AdvReac Type Severity Reaction Status Date / Time adhesive AdvReac Unknown Verified 04/21/21 23:21 aspirin AdvReac Unknown Verified 04/21/21 23:20 epinephrine AdvReac Unknown Verified 04/21/21 23:21 Assessment & Plan Assessment & Plan (1) MDD (major depressive disorder), recurrent episode, moderate: Status: Acute Code(s): F33.1 - Major depressive disorder, recurrent, moderate (2) PTSD (post-traumatic stress disorder): Status: Acute Code(s): F43.10 - Post-traumatic stress disorder, unspecified Assessment and Plan: Pt is a 75 y.o. Who carries a dx of MDD recurrent and PTSD. She presented to [facility] crisis on 04/20/21 after her contacted [facility] to do a wellness check on her after he was hospitalized at [place] for thrombosis. Katheryn endorsed sx of SI without plan or intent and increased anxiety. She current presents with sx of anxiety, SI with plan to OD on medication and intent and depressed mood. Has long hx of chronic depression, feelings of guilt and hopelessness. Hx of multiple hospitalizations for SI and plan to OD on medications. Meds are kept in locked box at home. No substance use or alcohol abuse reported. Plan: Continue same treatment. Gather collateral information Waiting for placement. Continue Thorazine to 50 mg standing dose. I spent minutes with the patient and/or on the patient floor today, g reater than?50% of which was spent counseling/coordinating care. Reason for contiued inpatient stay Substantial Risk for: harm to self, inability to function, rapid decompensation and med/psych decompensation
[2021-05-08 17:55] VITALS: BP 135/79; PULSE 79; RESP 18; TEMP 36.4; O2SAT 95
[2021-05-08] MEDS: chlorproMAZINE HCl 25 MG TABLET PO (18:17)
[2021-05-08] MEDS: Atorvastatin Calcium 20 MG TABLET PO (20:54)
[2021-05-08] MEDS: chlorproMAZINE HCl 25 MG TABLET 50 MG PO (20:55)
[2021-05-08] MEDS: Melatonin 3 MG TABLET PO (20:58)
[2021-05-08] MEDS: risperiDONE 2 MG TABLET PO (20:58)
[2021-05-08 21:43] VITALS: BP 135/79; PULSE 79
[2021-05-08] MEDS: cloNIDine HCL 0.2 MG TABLET PO (21:43)
[2021-05-09 06:00] VITALS: BP 106/60; PULSE 66; RESP 16; TEMP 36; O2SAT 95
[2021-05-09 08:13] VITALS: BP 106/60; PULSE 66
[2021-05-09] MEDS: FLUoxetine HCl 20 MG CAPSULE 60 MG PO (08:13)
[2021-05-09] MEDS: Metoprolol Succinate ER 12.5 MG HALFTAB.ER.24H PO (08:13)
[2021-05-09] MEDS: risperiDONE 1 MG TABLET PO (08:14)
[2021-05-09] MEDS: Fluticasone/Vilanterol 100/25 BLST.W.DEV 1 PUFF INHALE (08:16)
[2021-05-09] MEDS: Throat Lozenge, Medicated LOZENGE 1 LOZENGE MUCOUS MEM ×2 (13:14→18:15)
--- NOTE | 2021-05-09 14:23 | P.PNPSI_ITS ---
Subjective Subjective Date of Service: 05/09/21 Reason For Visit: depressive disorder Subjective Notes: Conditional Voluntary Interim History: The nursing staff reported that the patient has been compliant with treatment, she is eating her meals and she participated in groups. On interview, the patient reports anxiety, she says scared that her could be see current and she believes. We will be discussing with the high school social studies teacher with the possibility of discharge with services but since she historically tried to commit suicide when she was alone a safe discharge plan is still unclear Review of Systems Acute medical concerns: No Medical Review of Systems: unchanged Mental Status Exam Mental Status Exam Patient Appearance: Well Grooomed Patient Orientation: Person and Situation Level of Consciousness: Appropriate Patient Behavior: Cooperative Mood Description: Constricted Affect Description: Constricted Patient Cognition Impaired: Yes Ability to Follow Directions: Good Speech Pattern: Clear Memory Description: Intact Hallucinations: None Delusions: Paranoid Ideation Thought Process: Intact Thought Content: positive for Circumstantial Depressive Symptoms: Loss of Int. in Activity Judgement: Fair Diagnostics Vital Signs (24Hr): Vital Signs - 24 hr 05/08/21 17:55 05/08/21 21:43 05/09/21 06:00 Temperature 97.6 F 96.8 F Pulse Rate 79 79 66 Respiratory Rate 18 16 Blood Pressure 135/79 135/79 106/60 Pulse Oximetry 95 95 05/09/21 08:13 Temperature Pulse Rate 66 Respiratory Rate Blood Pressure 106/60 Pulse Oximetry Body Mass Index 26.2 Labs Results: 04/22/21 06:06 04/22/21 06:06 Medications Medications Current Medications Acetaminophen (Acetaminophen 325 Mg Tablet) 650 mg PO Q6H PRN PRN Reason: Headache/Pain Mild Scale (1-3) Last Admin: 05/06/21 04:16 Dose: 650 mg Documented by: Al Hydroxide/Mg Hydroxide (Magnesium Hydrox/Alum Hydrox 30 Ml Oral.Susp) 30 ml PO Q6H PRN PRN Reason: Heartburn/Nausea Albuterol Sulfate (Albuterol Sulfate 90 Mcg 8 Gm Inhaler) 2 puff INHALE Q4H PRN PRN Reason: Shortness of Breath/Wheezing Atorvastatin Calcium (Atorvastatin Calcium 20 Mg Tablet) 20 mg PO BEDTIME [facility] Last Admin: 05/08/21 20:54 Dose: 20 mg Documented by: Benzocaine (Throat Lozenge, Medicated Lozenge) 1 lozenge MUCOUS MEM Q2H PRN PRN Reason: Sore Throat Last Admin: 05/09/21 13:14 Dose: 1 lozenge Documented by: Chlorpromazine HCl (Chlorpromazine Hcl 25 Mg Tablet) 25 mg PO BID PRN PRN Reason: anxiety Last Admin: 05/08/21 18:17 Dose: 25 mg Documented by: Chlorpromazine HCl (Chlorpromazine Hcl 25 Mg Tablet) 50 mg PO BEDTIME [facility] Last Admin: 05/08/21 20:55 Dose: 50 mg Documented by: Clonidine HCl (Clonidine Hcl 0.2 Mg Tablet) 0.2 mg PO BID PRN; Protocol PRN Reason: anxiety Last Admin: 05/08/21 21:43 Dose: 0.2 mg Documented by: Fluoxetine HCl (Fluoxetine Hcl 20 Mg Capsule) 60 mg PO DAILY [facility] Last Admin: 05/09/21 08:13 Dose: 60 mg Documented by: Fluticasone/Vilanterol (Fluticasone/Vilanterol 100/25 Blst.W.Dev) 1 puff INHALE RDAILY [facility] Last Admin: 05/09/21 08:16 Dose: 1 puff Documented by: Hydroxyzine HCl (Hydroxyzine Hcl 25 Mg Tablet) 25 mg PO Q6H PRN PRN Reason: Anxiety Last Admin: 05/07/21 09:13 Dose: 25 mg Documented by: Magnesium Hydroxide (Milk Of Magnesia 30 Ml Oral.Susp) 30 ml PO DAILY PRN PRN Reason: Constipation Melatonin (Melatonin 3 Mg Tablet) 3 mg PO BEDTIME [facility] Last Admin: 05/08/21 20:58 Dose: 3 mg Documented by: Metoprolol Succinate (Metoprolol Succinate Er 12.5 Mg Halftab.Er.24h) 12.5 mg PO DAILY [facility]; Protocol Last Admin: 05/09/21 08:13 Dose: 12.5 mg Documented by: Nicotine Polacrilex (Nicotine Polacrilex 2 Mg Gum) 2 mg BUCCAL Q2H PRN PRN Reason: smoking cravings Risperidone (Risperidone 2 Mg Tablet) 2 mg PO BEDTIME [facility] Last Admin: 05/08/21 20:58 Dose: 2 mg Documented by: Risperidone (Risperidone 1 Mg Tablet) 1 mg PO DAILY [facility] Last Admin: 05/09/21 08:14 Dose: 1 mg Documented by: Tiotropium [place] (Tiotropium [place] 18 Mcg Cap.W.Dev) 2 puff INHALE [facility] Last Admin: 05/09/21 08:14 Dose: 2 puff Documented by: Trazodone HCl (Trazodone Hcl 50 Mg Tablet) 50 mg PO BEDTIME PRN PRN Reason: Insomnia Last Admin: 05/03/21 22:50 Dose: 50 mg Documented by: Allergies Allergies Allergy/AdvReac Type Severity Reaction Status Date / Time adhesive AdvReac Unknown Verified 04/21/21 23:21 aspirin AdvReac Unknown Verified 04/21/21 23:20 epinephrine AdvReac Unknown Verified 04/21/21 23:21 Assessment & Plan Assessment & Plan (1) MDD (major depressive disorder), recurrent episode, moderate: Status: Acute Code(s): F33.1 - Major depressive disorder, recurrent, moderate (2) PTSD (post-traumatic stress disorder): Status: Acute Code(s): F43.10 - Post-traumatic stress disorder, unspecified Assessment and Plan: Pt is a 75 y.o. Who carries a dx of MDD recurrent and PTSD. She presented to [facility] crisis on 04/20/21 after her contacted [facility] to do a wellness check on her after he was hospitalized at [place] for thrombosis. Katheryn endorsed sx of SI without plan or intent and increased anxiety. She current presents with sx of anxiety, SI with plan to OD on medication and intent and depressed mood. Has long hx of chronic depression, feelings of guilt and hopelessness. Hx of multiple hospitalizations for SI and plan to OD on medications. Meds are kept in locked box at home. No substance use or alcohol abuse reported. Plan: Continue same treatment. Gather collateral information Waiting for placement. Continue Thorazine to 50 mg standing dose. I spent minutes with the patient and/or on the patient floor today, greater than?50% of which was spent counseling/coordinating care. Reason for contiued inpatient stay Substantial Risk for: inability to function, rapid decompensation and med/psych decompensation
[2021-05-09] MEDS: Atorvastatin Calcium 20 MG TABLET PO (20:57)
[2021-05-09] MEDS: Melatonin 3 MG TABLET PO (20:57)
[2021-05-09] MEDS: risperiDONE 2 MG TABLET PO (20:57)
[2021-05-09] MEDS: chlorproMAZINE HCl 25 MG TABLET 50 MG PO (20:57)
[2021-05-09 21:05] VITALS: BP 128/65; PULSE 67; RESP 16; TEMP 36.6; O2SAT 95
[2021-05-09 21:07] VITALS: BP 128/65; PULSE 67
[2021-05-09] MEDS: cloNIDine HCL 0.2 MG TABLET PO (21:07)
[2021-05-09] MEDS: traZODone HCL 50 MG TABLET PO (22:01)
[2021-05-10 08:24] VITALS: BP 110/55; PULSE 73
[2021-05-10] MEDS: Metoprolol Succinate ER 12.5 MG HALFTAB.ER.24H PO (08:24)
[2021-05-10] MEDS: risperiDONE 1 MG TABLET PO (08:24)
[2021-05-10] MEDS: FLUoxetine HCl 20 MG CAPSULE 60 MG PO (08:24)
[2021-05-10 08:37] VITALS: BP 110/55; PULSE 73; RESP 14; TEMP 36.6; O2SAT 97
[2021-05-10] MEDS: Fluticasone/Vilanterol 100/25 BLST.W.DEV 1 PUFF INHALE (11:10)
--- NOTE | 2021-05-10 12:00 | P.PNPSI_ITS ---
Subjective Subjective Date of Service: 05/10/21 Reason For Visit: depressive disorder Subjective Notes: Conditional Voluntary Interim History: The nursing staff reported that she is doing fine, is sleeping during the night and having all her meals, fully compliant with treatment. On interview the patient denies new symptoms. On team, the social worker clinical reported that she is going to have a VNA who will control her medications upon discharge since she has overdosed on those Mental Status Exam Mental Status Exam Patient Appearance: Well Grooomed Patient Orientation: Person and Situation Level of Consciousness: Awake and Appropriate Patient Behavior: Cooperative Mood Description: Constricted Affect Description: Constricted Patient Cognition Impaired: No Ability to Follow Directions: Good Speech Pattern: Clear Hallucinations: None Delusions: Not Present Thought Process: Linear Thought Content: positive for Circumstantial Judgement: Fair Diagnostics Vital Signs (24Hr): Vital Signs - 24 hr 05/09/21 21:05 05/09/21 21:07 05/10/21 08:24 Temperature 97.9 F Pulse Rate 67 67 73 Respiratory Rate 16 Blood Pressure 128/65 128/65 110/55 L Pulse Oximetry 95 05/10/21 08:37 Temperature 97.8 F Pulse Rate 73 Respiratory Rate 14 Blood Pressure 110/55 L Pulse Oximetry 97 Body Mass Index 26.2 Labs Results: 04/22/21 06:06 04/22/21 06:06 Medications Medications Current Medications Acetaminophen (Acetaminophen 325 Mg Tablet) 650 mg PO Q6H PRN PRN Reason: Headache/Pain Mild Scale (1-3) Last Admin: 05/06/21 04:16 Dose: 650 mg Documented by: Al Hydroxide/Mg Hydroxide (Magnesium Hydrox/Alum Hydrox 30 Ml Oral.Susp) 30 ml PO Q6H PRN PRN Reason: Heartburn/Nausea Albuterol Sulfate (Albuterol Sulfate 90 Mcg 8 Gm Inhaler) 2 puff INHALE Q4H PRN PRN Reason: Shortness of Breath/Wheezing Atorvastatin Calcium (Atorvastatin Calcium 20 Mg Tablet) 20 mg PO BEDTIME [facility] Last Admin: 05/09/21 20:57 Dose: 20 mg Documented by: Benzocaine (Throat Lozenge, Medicated Lozenge) 1 lozenge MUCOUS MEM Q2H PRN PRN Reason: Sore Throat Last Admin: 05/09/21 18:15 Dose: 1 lozenge Documented by: Chlorpromazine HCl (Chlorpromazine Hcl 25 Mg Tablet) 25 mg PO BID PRN PRN Reason: anxiety Last Admin: 05/08/21 18:17 Dose: 25 mg Documented by: Chlorpromazine HCl (Chlorpromazine Hcl 25 Mg Tablet) 50 mg PO BEDTIME [facility] Last Admin: 05/09/21 20:57 Dose: 50 mg Documented by: Clonidine HCl (Clonidine Hcl 0.2 Mg Tablet) 0.2 mg PO BID PRN; Protocol PRN Reason: anxiety Last Admin: 05/09/21 21:07 Dose: 0.2 mg Documented by: Fluoxetine HCl (Fluoxetine Hcl 20 Mg Capsule) 60 mg PO DAILY [facility] Last Admin: 05/10/21 08:24 Dose: 60 mg Documented by: Fluticasone/Vilanterol (Fluticasone/Vilanterol 100/25 Blst.W.Dev) 1 puff INHALE RDAILY [facility] Last Admin: 05/10/21 11:10 Dose: 1 puff Documented by: Hydroxyzine HCl (Hydroxyzine Hcl 25 Mg Tablet) 25 mg PO Q6H PRN PRN Reason: Anxiety Last Admin: 05/07/21 09:13 Dose: 25 mg Documented by: Magnesium Hydroxide (Milk Of Magnesia 30 Ml Oral.Susp) 30 ml PO DAILY PRN PRN Reason: Constipation Melatonin (Melatonin 3 Mg Tablet) 3 mg PO BEDTIME [facility] Last Admin: 05/09/21 20:57 Dose: 3 mg Documented by: Metoprolol Succinate (Metoprolol Succinate Er 12.5 Mg Halftab.Er.24h) 12.5 mg PO DAILY [facility]; Protocol Last Admin: 05/10/21 08:24 Dose: 12.5 mg Documented by: Nicotine Polacrilex (Nicotine Polacrilex 2 Mg Gum) 2 mg BUCCAL Q2H PRN PRN Reason: smoking cravings Risperidone (Risperidone 2 Mg Tablet) 2 mg PO BEDTIME [facility] Last Admin: 05/09/21 20:57 Dose: 2 mg Documented by: Risperidone (Risperidone 1 Mg Tablet) 1 mg PO DAILY [facility] Last Admin: 05/10/21 08:24 Dose: 1 mg Documented by: Tiotropium [place] (Tiotropium [place] 18 Mcg Cap.W.Dev) 2 puff INHALE RDAILY [facility] Last Admin: 05/09/21 08:14 Dose: 2 puff Documented by: Trazodone HCl (Trazodone Hcl 50 Mg Tablet) 50 mg PO BEDTIME PRN PRN Reason: Insomnia Last Admin: 05/09/21 22:01 Dose: 50 mg Documented by: Allergies Allergies Allergy/AdvReac Type Severity Reaction Status Date / Time adhesive AdvReac Unknown Verified 04/21/21 23:21 aspirin AdvReac Unknown Verified 04/21/21 23:20 epinephrine AdvReac Unknown Verified 04/21/21 23:21 Assessment & Plan Assessment & Plan (1) MDD (major depressive disorder), recurrent episode, moderate: Status: Acute Code(s): F33.1 - Major depressive disorder, recurrent, moderate (2) PTSD (post-traumatic stress disorder): Status: Acute Code(s): F43.10 - Post-traumatic stress disorder, unspecified Assessment and Plan: Pt is a 75 y.o. Who carries a dx of MDD recurrent and PTSD. She presented to [facility] on 04/20/21 after her contacted [facility] to do a wellness check on her after he was hospitalized at [place] for thrombosis. Katheryn endorsed sx of SI without plan or intent and increased anxiety. She current presents with sx of anxiety, SI with plan to OD on medication and intent and depressed mood. Has long hx of chronic depression, feelings of guilt and hopelessness. Hx of multiple hospitalizations for SI and plan to OD on medications. Meds are kept in locked box at home. No substance use or alcohol abuse reported. Plan: Continue same treatment. Gather collateral information Waiting for placement. Continue Thorazine to 50 mg standing dose. Possible discharge by the end of the week I spent minutes with the patient and/or on the patient floor today, greater than?50% of which was spent counseling/coordinating care. Reason for contiued inpatient stay Substantial Risk for: inability to function, rapid decompensation and med/psych decompensation
[2021-05-10] MEDS: hydrOXYzine HCL 25 MG TABLET PO (16:45)
[2021-05-10 20:29] VITALS: BP 140/64; PULSE 70; RESP 17; TEMP 36.8; O2SAT 96
[2021-05-10 20:36] VITALS: BP 140/64; PULSE 70
[2021-05-10] MEDS: Atorvastatin Calcium 20 MG TABLET PO (20:36)
[2021-05-10] MEDS: risperiDONE 2 MG TABLET PO (20:36)
[2021-05-10] MEDS: Melatonin 3 MG TABLET PO (20:36)
[2021-05-10] MEDS: cloNIDine HCL 0.2 MG TABLET PO (20:36)
[2021-05-10] MEDS: chlorproMAZINE HCl 25 MG TABLET 50 MG PO (20:36)
[2021-05-11 06:00] VITALS: BP 118/65; PULSE 68; RESP 14; TEMP 36.9; O2SAT 97
[2021-05-11 07:00] VITALS: BMI 26.1
[2021-05-11] MEDS: FLUoxetine HCl 20 MG CAPSULE 60 MG PO (10:08)
[2021-05-11 10:09] VITALS: BP 118/65; PULSE 68
[2021-05-11] MEDS: Metoprolol Succinate ER 12.5 MG HALFTAB.ER.24H PO (10:09)
[2021-05-11] MEDS: risperiDONE 1 MG TABLET PO (10:09)
[2021-05-11] MEDS: Fluticasone/Vilanterol 100/25 BLST.W.DEV 1 PUFF INHALE (10:09)
[2021-05-11] MEDS: Throat Lozenge, Medicated LOZENGE 1 LOZENGE MUCOUS MEM (12:21)
--- NOTE | 2021-05-11 14:47 | HO.PSYCHPN ---
Subjective Subjective Date of Service: 05/11/21 Reason For Visit: depressive disorder Subjective Notes: Conditional Voluntary Interim History: The nursing staff reports the patient is cooperative and pleasant, she is still depressed and dysphoric at times but she is fully compliant with treatment and she eats her meals in the common areas. The family welfare social work professor has pointed out to the patient is totally dependent on her and he is actively seek. Discharging her to home without services will be unsafe since she historically has tried to commit suicide. On interview, the patient denies new symptoms she is waiting for placement Mental Status Exam Mental Status Exam Patient Appearance: Well Grooomed Patient Orientation: Person and Situation Level of Consciousness: Awake and Appropriate Patient Behavior: Cooperative and Passive Mood Description: Depressed Affect Description: Constricted Patient Cognition Impaired: No Ability to Follow Directions: Good Speech Pattern: Clear Hallucinations: None Delusions: Not Present Thought Process: Evasive Thought Content: positive for [place], positive for Circumstantial and positive for Poverty of Content Judgement: Fair Diagnostics Vital Signs (24Hr): Vital Signs - 24 hr 05/10/21 20:29 05/10/21 20:36 05/11/21 06:00 Temperature 98.2 F 98.4 F Pulse Rate 70 70 68 Respiratory Rate 17 14 Blood Pressure 140/64 H 140/64 H 118/65 Pulse Oximetry 96 97 05/11/21 10:09 Temperature Pulse Rate 68 Respiratory Rate Blood Pressure 118/65 Pulse Oximetry Body Mass Index 26.2 Labs Results: 04/22/21 06:06 04/22/21 06:06 Medications Medications Current Medications Acetaminophen (Acetaminophen 325 Mg Tablet) 650 mg PO Q6H PRN PRN Reason: Headache/Pain Mild Scale (1-3) Last Admin: 05/06/21 04:16 Dose: 650 mg Documented by: Al Hydroxide/Mg Hydroxide (Magnesium Hydrox/Alum Hydrox 30 Ml Oral.Susp) 30 ml PO Q6H PRN PRN Reason: Heartburn/Nausea Albuterol Sulfate (Albuterol Sulfate 90 Mcg 8 Gm Inhaler) 2 puff INHALE Q4H PRN PRN Reason: Shortness of Breath/Wheezing Atorvastatin Calcium (Atorvastatin Calcium 20 Mg Tablet) 20 mg PO BEDTIME [facility] Last Admin: 05/10/21 20:36 Dose: 20 mg Documented by: Benzocaine (Throat Lozenge, Medicated Lozenge) 1 lozenge MUCOUS MEM Q2H PRN PRN Reason: Sore Throat Last Admin: 05/11/21 12:21 Dose: 1 lozenge Documented by: Chlorpromazine HCl (Chlorpromazine Hcl 25 Mg Tablet) 25 mg PO BID PRN PRN Reason: anxiety Last Admin: 05/08/21 18:17 Dose: 25 mg Documented by: Chlorpromazine HCl (Chlorpromazine Hcl 25 Mg Tablet) 50 mg PO BEDTIME [facility] Last Admin: 05/10/21 20:36 Dose: 50 mg Documented by: Clonidine HCl (Clonidine Hcl 0.2 Mg Tablet) 0.2 mg PO BID PRN; Protocol PRN Reason: anxiety Last Admin: 05/10/21 20:36 Dose: 0.2 mg Documented by: Fluoxetine HCl (Fluoxetine Hcl 20 Mg Capsule) 60 mg PO DAILY [facility] Last Admin: 05/11/21 10:08 Dose: 60 mg Documented by: Fluticasone/Vilanterol (Fluticasone/Vilanterol 100/25 Blst.W.Dev) 1 puff INHALE RDAILY [facility] Last Admin: 05/11/21 10:09 Dose: 1 puff Documented by: Hydroxyzine HCl (Hydroxyzine Hcl 25 Mg Tablet) 25 mg PO Q6H PRN PRN Reason: Anxiety Last Admin: 05/10/21 16:45 Dose: 25 mg Documented by: Magnesium Hydroxide (Milk Of Magnesia 30 Ml Oral.Susp) 30 ml PO DAILY PRN PRN Reason: Constipation Melatonin (Melatonin 3 Mg Tablet) 3 mg PO BEDTIME [facility] Last Admin: 05/10/21 20:36 Dose: 3 mg Documented by: Metoprolol Succinate (Metoprolol Succinate Er 12.5 Mg Halftab.Er.24h) 12.5 mg PO DAILY [facility]; Protocol Last Admin: 05/11/21 10:09 Dose: 12.5 mg Documented by: Nicotine Polacrilex (Nicotine Polacrilex 2 Mg Gum) 2 mg BUCCAL Q2H PRN PRN Reason: smoking cravings Risperidone (Risperidone 2 Mg Tablet) 2 mg PO BEDTIME [facility] Last Admin: 05/10/21 20:36 Dose: 2 mg Documented by: Risperidone (Risperidone 1 Mg Tablet) 1 mg PO DAILY [facility] Last Admin: 05/11/21 10:09 Dose: 1 mg Documented by: Tiotropium Springer (Tiotropium [place] 18 Mcg Cap.W.Dev) 2 puff INHALE [facility]DRAP[facility]EL [facility] Last Admin: 05/11/21 10:09 Dose: 2 puff Documented by: Trazodone HCl (Trazodone Hcl 50 Mg Tablet) 50 mg PO BEDTIME PRN PRN Reason: Insomnia Last Admin: 05/09/21 22:01 Dose: 50 mg Documented by: Allergies Allergies Allergy/AdvReac Type Severity Reaction Status Date / Time adhesive AdvReac Unknown Verified 04/21/21 23:21 aspirin AdvReac Unknown Verified 04/21/21 23:20 epinephrine AdvReac Unknown Verified 04/21/21 23:21 Assessment & Plan Assessment & Plan (1) MDD (major depressive disorder), recurrent episode, moderate: Status: Acute Code(s): F33.1 - Major depressive disorder, recurrent, moderate (2) PTSD (post-traumatic stress disorder): Status: Acute Code(s): F43.10 - Post-traumatic stress disorder, unspecified Assessment and Plan: Pt is a 75 y.o. Who carries a dx of MDD recurrent and PTSD. She presented to [facility] crisis on 04/20/21 after her contacted [facility] to do a wellness check on her after he was hospitalized at [place] for thrombosis. Katheryn endorsed sx of SI without plan or intent and increased anxiety. She current presents with sx of anxiety, SI with plan to OD on medication and intent and depressed mood. Has long hx of chronic depression, feelings of guilt and hopelessness. Hx of multiple hospitalizations for SI and plan to OD on medications. Meds are kept in locked box at home. No substance use or alcohol abuse reported. Plan: Continue same treatment. Gather collateral information Waiting for placement. Continue Thorazine to 50 mg standing dose. Possible discharge by the end of the week I spent minutes with the patient and/or on the patient floor today, greater than?50% of which was spent counseling/coordinating care. Reason for contiued inpatient stay Substantial Risk for: inability to function, rapid decompensation and med/psych decompensation
[2021-05-11] MEDS: chlorproMAZINE HCl 25 MG TABLET 50 MG PO (20:48)
[2021-05-11] MEDS: Melatonin 3 MG TABLET PO (20:48)
[2021-05-11] MEDS: Atorvastatin Calcium 20 MG TABLET PO (20:48)
[2021-05-11] MEDS: risperiDONE 2 MG TABLET PO (20:49)
[2021-05-11 21:30] VITALS: BP 123/69; PULSE 60; RESP 17; TEMP 36.4; O2SAT 96
[2021-05-11 21:54] VITALS: BP 123/69; PULSE 60
[2021-05-11] MEDS: cloNIDine HCL 0.2 MG TABLET PO (21:54)
[2021-05-12 06:00] VITALS: BP 120/60; PULSE 66; RESP 12; TEMP 36.9; O2SAT 94
[2021-05-12] MEDS: FLUoxetine HCl 20 MG CAPSULE 60 MG PO (08:19)
[2021-05-12] MEDS: risperiDONE 1 MG TABLET PO (08:19)
[2021-05-12] MEDS: Metoprolol Succinate ER 12.5 MG HALFTAB.ER.24H PO (08:19)
[2021-05-12] MEDS: Fluticasone/Vilanterol 100/25 BLST.W.DEV 1 PUFF INHALE (08:19)
--- NOTE | 2021-05-12 12:04 | P.DS_ITS ---
DS: Providers Provider Date of Service: 05/12/21 Date of admission: 04/21/21 22:18 Date of discharge: 05/12/21 Primary care physician: Josiah Mroa MD Consults: 04/22/21 15:26 Consult to Hospitalist Routine Consulting Provider: Hospitalist Reason For Exam: new admit from [place], untreated COPD Attending physician on discharge: James Garcia DS: Diagnosis Discharge Diagnosis (1) MDD (major depressive disorder), recurrent episode, moderate: Status: Acute (2) PTSD (post-traumatic stress disorder): Status: Acute DS: Medications Discharge Medications Home Medications: Home Medications Medication Instructions Recorded Confirmed acetaminophen 325 mg tablet (Pain 325 mg PO DIRECTED PRN MDD Q 6 04/22/21 04/25/21 Reliever (acetaminophen)) HOURS aspirin 81 mg tablet 81 mg PO DAILY 04/22/21 04/22/21 clonazepam 0.5 mg tablet 0.5 mg PO DAILY 04/22/21 04/22/21 fluoxetine 60 mg tablet 60 mg PO QAM 04/22/21 04/22/21 metoprolol tartrate 25 mg tablet 12.5 mg PO DAILY 04/22/21 04/22/21 risperidone 1 mg tablet 1 mg PO DAILY 04/22/21 04/22/21 risperidone 2 mg tablet 2 mg PO BEDTIME 04/22/21 04/22/21 rosuvastatin 10 mg tablet 10 mg PO DAILY 04/22/21 04/22/21 tiotropium bromide 1.25 18 mcg INHALATION DAILY MDD 2 puffs 04/22/21 04/25/21 mcg/actuation mist for inhalation (Spiriva Respimat) Mental Status Exam Mental Status Exam Patient Appearance: Well Grooomed Patient Orientation: Person Level of Consciousness: Awake Patient Behavior: Cooperative Mood Description: Calm Affect Description: Constricted Patient Cognition Impaired: Yes Ability to Follow Directions: Good Speech Pattern: Clear Hallucinations: None Delusions: Not Present Thought Process: Goal Oriented Thought Content: positive for Intact and positive for Poverty of Content Judgement: Fair DS: Summary Hospital Course Hospital Course: The patient was initially admitted for exacerbation of depressive symptoms in the context of acute illness of her has meant that needed to be admitted into [facility]. Please see HPI over the admission note for more details. On intake, the patient was restarted on her regular medications. She was very dysphoric and stressed out due to the condition of her . She complained of depressed mood, anhedonia, lack of energy, feelings of hopelessness and worthlessness and passive suicidal ideation. She was able to contract for safety. We continue with her regular medications since her dysphoria was on correlation with her acute stressors. Eventually, her mood improved, she was able to contract for safety and she was able to participate in group activities. Since there were no safety concerns, discharge planning was discussed. The director social service found out that the patient was totally dependent on her . She has previously tried to commit suicide whenever she is alone and dysphoric. We arranged ancillary services such as VNA to avoid the possibility of overdosing. At the moment of the discharge, there were no safety concerns Time spent discussing smoking cessation with patient: 3 to 10 minutes Status at Discharge Cognitive/behavioral status at discharge: At baseline Functional status at discharge: independent ambulation Overall status at discharge: patient is back to baseline Time Spent with Patient Time attestation: Total time spent providing and/or coordinating discharge services: Time spent: Less than 30 minutes Discharge Plan Discharge Patient Disposition: Home, Self-Care Discharge Diagnosis: Major depressive disorder recurrent episode severe Referrals: BHUPINDER WARE, MEDICATION PERSCRIBER [Other] - 06/07/21 2:30 pm (TELEHEALTH appointment scheduled for Monday, June 07, 2021 @ 2:30 pm.) [facility] Billy Bee (therapists) [Other] - 05/19/21 10:00 am (Appointment scheduled for 05/19/21 @ 10 AM telehealth.) Tara Kelly RN [Other] - 05/13/21 ( ) [facility] [Other] - 05/16/21 (Please call and follow up in three days if nurse case manager has not contacted you or if you have not received meals on wheels.) Jorge Mora MD [Primary Care Provider] - 1 Week Discharge Medications: New albuterol sulfate [Ventolin HFA] 90 mcg/actuation Hfa Aerosol Inhaler 2 puff inhalation Q4H PRN (Reason: Shortness Of Breath/Wheezing) 30 Days Qty: 1 RF: 0 trazodone 50 mg Tablet 50 mg PO BEDTIME PRN (Reason: Insomnia) 30 Days Qty: 30 RF: 0 melatonin 3 mg Tablet 3 mg PO BEDTIME 30 Days Qty: 30 RF: 0 clonidine HCl 0.2 mg Tablet 0.2 mg PO BID PRN (Reason: anxiety) 30 Days Qty: 60 RF: 0 Breo Ellipta 100-25 mcg/dose Blister With Device 1 puff inhalation RDAILY 30 Days Qty: 1 RF: 0 chlorpromazine 50 mg tablet 50 mg PO .qhs 30 Days Qty: 30 RF: 0 Continued Spiriva Respimat 1.25 mcg/actuation Mist 18 mcg inhalation DAILY MDD 2 puffs RF: 0 risperidone 2 mg Tablet 2 mg PO BEDTIME RF: 0 risperidone 1 mg Tablet 1 mg PO DAILY RF: 0 aspirin 81 mg Tablet 81 mg PO DAILY RF: 0 acetaminophen [Pain Reliever (acetaminophen)] 325 mg Tablet 325 mg PO DIRECTED MDD Q 6 HOURS PRN (Reason: Pain, Mild) 30 Days Qty: 30 RF: 0 clonazepam 0.5 mg Tablet 0.5 mg PO DAILY 30 Days Qty: 30 RF: 0 rosuvastatin 10 mg Tablet 10 mg PO DAILY 30 Days Qty: 30 RF: 0 metoprolol tartrate 25 mg Tablet 12.5 mg PO DAILY 30 Days Qty: 15 RF: 0 fluoxetine 60 mg Tablet 60 mg PO QAM 30 Days Qty: 30 RF: 0 Discharge Orders: Discharge Order (Routine); Ordered 05/12/21 Ordered By: James Garcia Diet: advance to usual diet Activity on Discharge: As tolerated Stand Alone Forms: Patient Portal Discharge page Care Plan Goals: Care plan goals achieved in the unit Health Concerns: Continue treatment with primary care physician Plan of Treatment: Medication management by prescriber at [facility] Assessment: Elderly female with a long history of major depressive disorder admitted for exacerbation of depression. Currently stable and she is safe in the community
== END 2021-05-12 16:20 | disposition home or self-care (01) | DRG 885 ==
PROVIDERS: Registered Nurse; Admitting Provider Psychiatry & Neurology Psychiatry; PCP Internal Medicine; Visit Provider Psychiatry & Neurology Psychiatry
DX: F33.1 Major depressive disorder, recurrent, moderate (principal); R45.851 Suicidal ideations; E78.5 Hyperlipidemia, unspecified; F43.10 Post-traumatic stress disorder, unspecified; F17.210 Nicotine dependence, cigarettes, uncomplicated; Z71.6 Tobacco abuse counseling; G47.30 Sleep apnea, unspecified; Z95.0 Presence of cardiac pacemaker; J44.9 Chronic obstructive pulmonary disease, unspecified; Z86.73 Personal history of transient ischemic attack (TIA), and cerebral infarction without residual deficits; Z88.6 Allergy status to analgesic agent; Z79.82 Long term (current) use of aspirin; Z79.51 Long term (current) use of inhaled steroids; Z79.899 Other long term (current) drug therapy
CPT/HCPCS: 36415; 80053; 80061; 83036; 84443; 85025; 93005

== ENCOUNTER 2021-11-24 23:16 | Inpatient (IN) | payer MEDICARE, SELFPAY ==
--- NOTE | ~2021-11-24 | CT_ITS ---
EXAMINATION: CT HEAD WITHOUT CONTRAST CLINICAL INFORMATION: TIA. Transient facial weakness. COMPARISON: None TECHNIQUE: Contiguous axial imaging was performed from the skull base to vertex without intravenous administration of contrast. This CT examination was performed using dose optimization techniques as appropriate, variously including the following: *Automated exposure control *Adjustment of mA and/or kV according to patient size (this includes techniques or standardized protocols for targeted exams where dose is matched to indication/reason for exam; i.e. extremities or head) *Use of iterative reconstruction technique DLP: 655 mGy-cm FINDINGS: There is no evidence of acute intracranial hemorrhage or territorial infarction. No abnormal mass effect or midline shift is seen. Melissa to white matter differentiation is well preserved. No extra-axial fluid collections are identified. The ventricles are normal in size. There is no abnormal attenuation within the brain parenchyma. The osseous structures and soft tissues are normal. The mastoid air cells and visualized portions of the paranasal sinuses are well aerated. CT/CT head/brain wo con IMPRESSION: No acute intracranial process seen
--- NOTE | ~2021-11-24 | US_ITS ---
EXAMINATION: US EXTRACRANIAL CAROTID DUPLEX, BILATERAL CLINICAL INFORMATION: Recent TIA COMPARISON: None TECHNIQUE: Real-time ultrasound and Doppler techniques (integrating B-mode 2-D vascular images, Doppler spectral analysis and color-flow Doppler imaging) were utilized to interrogate the extracranial carotid arteries, the vertebral arteries and proximal subclavian arteries bilaterally. The degree of stenosis is determined by criteria similar to NASCET. FINDINGS: Right Side: 1. There is mild atherosclerotic plaque seen in the bifurcation/proximal ICA region. 2. The common carotid artery PSV proximally is 58 cm/s and distally 59 cm/s. 3. The proximal internal carotid artery velocities are 116 cm/s systolic and 30 cm/s diastolic. 4. The proximal external carotid artery PSV is 121 cm/s. 5. The vertebral artery shows antegrade flow. 6. The subclavian artery waveforms are normal. Left Side: 1. There is mild atherosclerotic plaque seen in the bifurcation/proximal ICA region. 2. The common carotid artery PSV proximally is 58 cm/s and distally 56 cm/s. 3. The proximal internal carotid artery velocities are 82 cm/s systolic and 22 cm/s diastolic. 4. The proximal external carotid artery PSV is 80 cm/s. 5. The vertebral artery shows antegrade flow. 6. The subclavian artery waveforms are normal. US/US carotid duplex BI IMPRESSION: 1. RIGHT: Minimal, non-hemodynamically significant stenosis of the proximal right internal carotid artery corresponding to a 0-49% stenosis by velocity criteria. 2. LEFT: Minimal, non-hemodynamically significant stenosis of the proximal left internal carotid artery corresponding to a 0-49% stenosis by velocity criteria.
[2021-11-25 01:20] VITALS: BMI 25.9
--- NOTE | 2021-11-25 02:40 | PC.ADMIT ---
Admitted these 76 female patient from [facility] per stretcher accompanied by ambulance staff with presenting problem of Depression and SI w/ plan to overdose medication. She has history of a Major depressive disorder, several suicide attempts and has found relief with ECT.Upon arrival in the unit, patient is alert and oriented x4, Memory appears intact.Patient signed the CV and all consents to release information.Patient is very pleasant and cooperative w/ admission process.Skin is warm,no open areas or bruises. W/ old scar on L. forearm and mid abdomen.Patient wears eyeglasses for reading but not w/ patient.Patient has upper dentures and has a skin tag on the right face.Patient has a pacemaker in the upper l side of chest.Patient has no edema and said she is incontinent at times and wears depends.Patient is independent in ambulation.Patient said she has medical hx of HTN and COPD and smokes cigarettes but refused Nicotine patch. Patient at present denies SI/pain and contract for safety.Rubi Choe informed and made the orders.Chelly WEBSTER informed for hospitalist consult.
[2021-11-25 07:37] LABS: MANUAL DIFF FLAG NO
[2021-11-25 07:42] LABS: Basophils Absolute Auto 0.1 X10*3/uL (0.0-0.2); Basophils Percent Auto 0.6 % (0-2); Eosinophils Absolute Auto 0.2 X10*3/uL (0.0-0.4); Eosinophils Percent Auto 2.6 % (0-4); Hematocrit 41.5 % (37.0-47.0); Hemoglobin 13.9 g/dl (12.0-16.0); Imm Gran Abs Auto 0.04 X10*3/uL (0.00-0.03); Imm Gran Pct Auto 0.4 % (0.0-0.4); Lymphocytes Absolute Auto 1.5 X10*3/uL (1.2-4.9); Lymphocytes Percent Auto 16.3 % (20-40); Mean Corpuscular HGB Conc 33.5 g/dl (31.0-35.0); Mean Corpuscular Hemoglobin 30.3 pg (27.0-33.0); Mean Corpuscular Volume 90.4 fL (80.0-98.0); Mean Platelet Volume 9.9 fL (9.4-12.3); Monocytes Absolute Auto 0.8 X10*3/uL (0.1-1.2); Monocytes Percent Auto 8.3 % (2-11); Neutrophils Absolute Auto 6.7 x10*3/uL (2.0-8.3); Neutrophils Percent Auto 71.8 % (45-73); Platelet Count 282 X10*3/uL (160-400); Red Blood Count 4.59 X10*6/uL (4.20-5.50); Red Cell Distribution Width 13.9 % (11.0-16.0); White Blood Count 9.3 X10*3/uL (4.8-10.8)
[2021-11-25 08:06] LABS: Alanine Aminotransferase 11 U/L (0-31); Albumin Level 3.9 g/dL (3.5-5.0); Alkaline Phosphatase 56 U/L (39-117); Anion Gap 15 (12-20); Aspartate Amino Transferase 15 U/L (5-31); Bilirubin Direct < 0.2 mg/dL (0.0-0.5); Bilirubin Total 0.3 mg/dL (0.0-1.0); Blood Urea Nitrogen 14 mg/dL (9-16); Calcium 9.2 mg/dL (8.4-10.2); Carbon Dioxide 25 mmol/L (22-29); Chloride 105 mmol/L (96-108); Cholesterol 175 mg/dL; Creatinine Clr Calc Pharmacy 64.1; Estimated Glomerular Filt Rate > 60; Glucose Fasting 120 mg/dL (60-99); HDL Cholesterol 41 mg/dL; LDL Cholesterol Calculated 103 mg/dl; Magnesium 2.1 mg/dL (1.6-2.6); Potassium 4.7 mmol/L (3.3-5.1); Sodium 140 mmol/L (135-145); Total Protein 6.6 g/dL (6.5-8.0); Triglycerides 155 mg/dL
[2021-11-25 08:13] LABS: Estimated Average Glucose 137 mg/dL; Hemoglobin A1c % 6.4 %
[2021-11-25 08:28] LABS: Free T4 (Free Thyroxine) 1.02 ng/dL (0.71-1.85); Thyroid Stimulating Hormone 0.63 uIU/mL (0.32-4.0)
[2021-11-25 08:41] VITALS: BP 139/59; PULSE 103; RESP 17; TEMP 36.4; O2SAT 92
[2021-11-25] MEDS: cloNIDine HCL 0.1 MG TABLET PO ×2 (08:42→20:58)
[2021-11-25] MEDS: Pravastatin Sodium 20 MG TABLET PO (08:42)
[2021-11-25] MEDS: risperiDONE 1 MG TABLET PO (08:42)
[2021-11-25] MEDS: FLUoxetine HCl Oral Solution 20 MG/5 ML SOLUTION 60 MG PO (08:42)
[2021-11-25] MEDS: Fluticasone/Vilanterol 100/25 BLST.W.DEV 1 PUFF INHALE (08:43)
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
--- NOTE | 2021-11-25 14:14 | P.CNHOSGPS_ITS ---
History of Present Illness Data of Consult Service Date: 11/25/21 Requesting physician: Rubi Choe Primary Care Provider: Unknown Physician HPI Reason for consult: new admission from [place] This is a 76 year female was admitted to the geriatric psychiatric unit for management of depression with suicidal ideation. The hospitalists were asked to see her in consultation for routine medical consult as she was transferred from outside facility. Patient reports an episode of chest pain yesterday while at [facility], she thinks this was secondary to stress. Note from [place] was reviewed and does not indicate any report of chest pain. She has had no further episodes since. She denies any shortness of breath, cough, abdominal pain, nausea, vomiting. She has had ECT in the past with no adverse effects. Review of Systems Review of Systems: Yes all other systems are reviewed and are negative Constitutional: Constitutional: Denies chills and Denies fever(s) ENT: Denies dizziness Cardiovascular: Cardiovascular: Denies chest pain, Denies palpitations and Denies dyspnea Respiratory: Respiratory: Denies cough and Denies dyspnea Gastrointestinal: Gastrointestinal: Denies abdominal pain, Denies nausea and Denies vomiting Neurologic: Denies dizziness Endocrine: Endocrine: Denies palpitations [facility] Medical History (Updated 11/25/21 @ 14:33 by BRANDI Irvin) COPD (chronic obstructive pulmonary disease) Depression Essential hypertension Hyperlipidemia Mitral valve prolapse Prediabetes PTSD (post-traumatic stress disorder) TIA (transient ischemic attack) Tobacco abuse Functional capacity: independent ambulation Pertinent family history: pt reports family history of heart disease, DM and mental illness Surgical History History of colectomy History of parathyroidectomy Social History Household Members: Spouse Housing: Apartment Do you presently have visiting nurse or other home services: No Patient Tobacco Use Status: Current everyday Tobacco user Tobacco use type: Cigarette Cigarettes Per Day: 6 Years Smoked: 25 yrs. Smoked in Last 30 Days: Yes e-Cigarette/Vaping Use: Never Used Patient Interested in Nicotine Replacement: No Patient Given Instructions on How to Stop Smoking: Yes Date Education Initiated: 11/25/21 Second Hand Smoke Exposure: Yes Use of substances other than those prescribed or required for medical reasons: No Substance Use Type: Prescription Drugs and Caffiene Currently Displaying Signs/Symptoms of Drug Intoxication Withdrawal: No Any prior treatment program specific to substance use: No Have you been hit, kicked, punched, or otherwise hurt by someone within the past year? If so, by whom?: No Do you feel safe in your current relationship?: Yes Is there a partner from a previous relationship who is making you feel unsafe now?: No Advance Directives: No Advance Directives Information Provided: No Advance Directives on File: No Do you have thoughts of harming others: None Do you have a plan to hurt others: No Plan Recently lost weight without trying: No Eating poorly because of decreased appetite: No Nutrition Risks: No Nutritional Risk Patient : No : No Poor oral hygiene: No service: No Sexual orientation: Straight/Heterosexual Meds Allergies Allergy/AdvReac Type Severity Reaction Status Date / Time adhesive AdvReac Unknown Verified 04/21/21 23:21 aspirin AdvReac Unknown Verified 04/21/21 23:20 epinephrine AdvReac Unknown Verified 04/21/21 23:21 Active Medications: Current Medications Acetaminophen (Acetaminophen 325 Mg Tablet) 650 mg PO Q6H PRN PRN Reason: Headache/Pain Mild Scale (1-3) Al Hydroxide/Mg Hydroxide (Magnesium Hydrox/Alum Hydrox 30 Ml Oral.Susp) 30 ml PO Q6H PRN PRN Reason: Heartburn/Nausea Clonazepam (Clonazepam 0.5 Mg Tablet) 0.5 mg PO BID PRN PRN Reason: anxiety Clonidine HCl (Clonidine Hcl 0.1 Mg Tablet) 0.1 mg PO BID [facility]; Protocol Last Admin: 11/25/21 08:42 Dose: 0.1 mg Documented by: Fluoxetine HCl (Fluoxetine Hcl Oral Solution 20 Mg/5 Ml Solution) 60 mg PO DAILY [facility] Last Admin: 11/25/21 08:42 Dose: 60 mg Documented by: Fluticasone/Vilanterol (Fluticasone/Vilanterol 100/25 Blst.W.Dev) 1 puff INHALE RDAILY [facility] Last Admin: 11/25/21 08:43 Dose: 1 puff Documented by: Hydroxyzine HCl (Hydroxyzine Hcl 25 Mg Tablet) 25 mg PO BEDTIME PRN PRN Reason: Anxiety Magnesium Hydroxide (Milk Of Magnesia 30 Ml Oral.Susp) 30 ml PO DAILY PRN PRN Reason: Constipation Melatonin (Melatonin 3 Mg Tablet) 3 mg PO BEDTIME [facility] Mirtazapine (Mirtazapine 15 Mg Tablet) 15 mg PO BEDTIME [facility] Pravastatin Sodium (Pravastatin Sodium 20 Mg Tablet) 20 mg PO DAILY [facility] Last Admin: 11/25/21 08:42 Dose: 20 mg Documented by: Risperidone (Risperidone 2 Mg Tablet) 2 mg PO BEDTIME [facility] Risperidone (Risperidone 1 Mg Tablet) 1 mg PO DAILY [facility] Last Admin: 11/25/21 08:42 Dose: 1 mg Documented by: Trazodone HCl (Trazodone Hcl 50 Mg Tablet) 50 mg PO BEDTIME PRN PRN Reason: Insomnia Home Medications Medication Instructions Recorded Confirmed Last Taken Type aspirin 81 mg tablet 81 mg PO DAILY 04/22/21 04/22/21 Unknown History risperidone 1 mg tablet 1 mg PO DAILY 04/22/21 04/22/21 Unknown History risperidone 2 mg tablet 2 mg PO BEDTIME 04/22/21 04/22/21 Unknown History tiotropium bromide 1.25 18 mcg INHALATION DAILY MDD 2 puffs 04/22/21 04/25/21 Unknown History mcg/actuation mist for inhalation (Spiriva Respimat) Results Labs CBC and Chem 7: 11/25/21 06:52 11/25/21 06:52 Labs: Laboratory Results - last 24 hr 11/25/21 11/25/21 11/25/21 06:52 06:52 06:52 MCV 90.4 MCH 30.3 MCHC 33.5 RDW 13.9 Plt Count 282 MPV 9.9 Immature Gran % (Auto) 0.4 Neut % (Auto) 71.8 Lymph % (Auto) 16.3 L [place] % (Auto) 8.3 Eos % (Auto) 2.6 Baso % (Auto) 0.6 Lymph # (Auto) 1.5 [place] # (Auto) 0.8 Eos # (Auto) 0.2 Baso # (Auto) 0.1 Abs Immat Gran (auto) 0.04 H Absolute Neuts (auto) 6.7 Absolute Nucleated RBC 0.000 Nucleated RBC % (auto) 0.0 Anion Gap 15 Estim Creat Clear Calc 64.1 Estimated GFR > 60 Fasting Glucose 120 H Estimat Average Glucose 137 Hemoglobin A1c % 6.4 Calcium 9.2 Magnesium 2.1 Total Bilirubin 0.3 Direct Bilirubin < 0.2 AST 15 ALT 11 Alkaline Phosphatase 56 Total Protein 6.6 Albumin 3.9 Triglycerides 155 Cholesterol 175 LDL Cholesterol, Calc 103 HDL Cholesterol 41 TSH 0.63 Free T4 1.02 Assessment and Plan (1) MDD (major depressive disorder), recurrent episode, moderate: Status: Acute Plan This is a?75yo F with COPD, HTN, hx TIA, hx hyperCA/hyperPTH s/p PTX, hx multiple colectomies with eventual reanastomosis for multiple precancerous polyps, s/p PPM for arrhythmia, prediabetes, depression, and PTSD admitted to [facility] ECT - patient has had ECT before with no previous adverse outcomes. benefits likely outweigh any risks given depression/SI. Obtain EKG prior to any planned ECT No medication reconciliation has been done at this point. COPD continue Breo, previously on spiriva but no med rec done prn albuterol HTN previously on metoprolol ? d/c due to starting clonidine follow blood pressure HLD/hx TIA - continue statin tobacco abuse - smokes 6 cig/d; declines NRT depression/PTSD - medications as per psychiatry team Thank you for allowing us to participate in the care of this patient. Attending - dr. briones Physical Exam Vital Signs: Last Vital Signs Temp 97.5 F 11/25/21 08:41 Pulse 103 H 11/25/21 08:41 Resp 17 11/25/21 08:41 BP 139/59 L 11/25/21 08:41 Pulse Ox 92 11/25/21 08:41 BMI result Body Mass Index 25.9 Const General: cooperative, comfortable, no acute distress, alert and awake Resp Effort & Inspection: normal respiratory effort and able to speak in complete sentences Auscultation: clear to auscultation bilaterally Neuro Cranial nerves: Yes CN's II-XII intact bilaterally
[2021-11-25 18:00] VITALS: BP 152/74; PULSE 79; RESP 19; TEMP 36.9; O2SAT 94
[2021-11-25] MEDS: Melatonin 3 MG TABLET PO (20:59)
[2021-11-25] MEDS: risperiDONE 2 MG TABLET PO (20:59)
[2021-11-25] MEDS: Mirtazapine 15 MG TABLET PO (20:59)
[2021-11-26 09:19] VITALS: BP 111/59; PULSE 98; RESP 17; TEMP 36.8; O2SAT 94
[2021-11-26] MEDS: cloNIDine HCL 0.1 MG TABLET PO ×2 (09:21→19:47)
[2021-11-26] MEDS: Fluticasone/Vilanterol 100/25 BLST.W.DEV 1 PUFF INHALE (09:21)
[2021-11-26] MEDS: FLUoxetine HCl Oral Solution 20 MG/5 ML SOLUTION 60 MG PO (09:22)
[2021-11-26] MEDS: Pravastatin Sodium 20 MG TABLET PO (09:22)
[2021-11-26] MEDS: risperiDONE 1 MG TABLET PO (09:22)
[2021-11-26 13:51] VITALS: BP 101/55; PULSE 70
--- NOTE | 2021-11-26 14:38 | P.PNPSI_ITS ---
Subjective Subjective Date of Service: 11/26/21 Reason For Visit: depression and thoughts of Medical Problems Affecting Mental Status: No Interim History: overall continues to report concerns regarding anxiety and depression. Intermittent hopelessness. No active SI. Hopeful she can be evaluated for ECT as this has been helpful in the past. She did discuss having some physical symptoms when stressed and give the example of talking with her who was at [facility] yesterday and that feeling dizzy. Otherwise slept okay. Appetite okay. No medication concerns. Medication Compliance: Yes Side effects from medications: No Attending Groups: Yes Review of Systems Acute medical concerns: No Review of Systems Review of Systems Yes all other systems are reviewed and are negative Mental Status Exam Mental Status Exam Narrative: pleasant and engaged. Appropriately dressed. Fair hygiene. Anxious. Organized. Articulate. Depressed. Hopeless with thoughts of . No active SI. No HI. No agitation. No psychosis. Insight judgment okay Diagnostics Vital Signs (24Hr): Vital Signs - 24 hr 11/25/21 18:00 11/26/21 09:19 11/26/21 13:51 Temperature 98.4 F 98.2 F Pulse Rate 79 98 70 Respiratory Rate 19 17 Blood Pressure 152/74 H 111/59 L 101/55 L Pulse Oximetry 94 94 BMI result Body Mass Index 25.9 Labs Results: 11/25/21 06:52 11/25/21 06:52 Labs: Laboratory Results - last 48 hr 11/25/21 11/25/21 11/25/21 06:52 06:52 06:52 WBC 9.3 RBC 4.59 Hgb 13.9 Hct 41.5 MCV 90.4 MCH 30.3 MCHC 33.5 RDW 13.9 Plt Count 282 MPV 9.9 Immature Gran % (Auto) 0.4 Neut % (Auto) 71.8 Lymph % (Auto) 16.3 L [place] % (Auto) 8.3 Eos % (Auto) 2.6 Baso % (Auto) 0.6 Lymph # (Auto) 1.5 [place] # (Auto) 0.8 Eos # (Auto) 0.2 Baso # (Auto) 0.1 Abs Immat Gran (auto) 0.04 H Absolute Neuts (auto) 6.7 Absolute Nucleated RBC 0.000 Nucleated RBC % (auto) 0.0 Sodium 140 Potassium 4.7 Chloride 105 Carbon Dioxide 25 Anion Gap 15 BUN 14 Creatinine 0.78 Estim Creat Clear Calc 64.1 Estimated GFR > 60 Fasting Glucose 120 H Estimat Average Glucose 137 Hemoglobin A1c % 6.4 Calcium 9.2 Magnesium 2.1 Total Bilirubin 0.3 Direct Bilirubin < 0.2 AST 15 ALT 11 Alkaline Phosphatase 56 Total Protein 6.6 Albumin 3.9 Triglycerides 155 Cholesterol 175 LDL Cholesterol, Calc 103 HDL Cholesterol 41 TSH 0.63 Free T4 1.02 Medications Medications Current Medications Acetaminophen (Acetaminophen 325 Mg Tablet) 650 mg PO Q6H PRN PRN Reason: Headache/Pain Mild Scale (1-3) Al Hydroxide/Mg Hydroxide (Magnesium Hydrox/Alum Hydrox 30 Ml Oral.Susp) 30 ml PO Q6H PRN PRN Reason: Heartburn/Nausea Albuterol Sulfate (Albuterol Sulfate (0.083%) 2.5 Mg/3 Ml Vial.Neb) 2.5 mg INHALE Q6H PRN PRN Reason: Shortness of Breath/Wheezing Clonazepam (Clonazepam 0.5 Mg Tablet) 0.5 mg PO BID PRN PRN Reason: anxiety Clonidine HCl (Clonidine Hcl 0.1 Mg Tablet) 0.1 mg PO BID [facility]; Protocol Last Admin: 11/26/21 09:21 Dose: 0.1 mg Documented by: Fluoxetine HCl (Fluoxetine Hcl Oral Solution 20 Mg/5 Ml Solution) 60 mg PO DAILY [facility] Last Admin: 11/26/21 09:22 Dose: 60 mg Documented by: Fluticasone/Vilanterol (Fluticasone/Vilanterol 100/25 Blst.W.Dev) 1 puff INHALE RDAILY [facility] Last Admin: 11/26/21 09:21 Dose: 1 puff Documented by: Hydroxyzine HCl (Hydroxyzine Hcl 25 Mg Tablet) 25 mg PO BEDTIME PRN PRN Reason: Anxiety Magnesium Hydroxide (Milk Of Magnesia 30 Ml Oral.Susp) 30 ml PO DAILY PRN PRN Reason: Constipation Melatonin (Melatonin 3 Mg Tablet) 3 mg PO BEDTIME [facility] Last Admin: 11/25/21 20:59 Dose: 3 mg Documented by: Metoprolol Succinate (Metoprolol Succinate Er 12.5 Mg Halftab.Er.24h) 12.5 mg PO DAILY [facility]; Protocol Last Admin: 11/26/21 13:51 Dose: Not Given Documented by: Mirtazapine (Mirtazapine 15 Mg Tablet) 15 mg PO BEDTIME [facility] Last Admin: 11/25/21 20:59 Dose: 15 mg Documented by: Pravastatin Sodium (Pravastatin Sodium 20 Mg Tablet) 20 mg PO DAILY [facility] Last Admin: 11/26/21 09:22 Dose: 20 mg Documented by: Risperidone (Risperidone 2 Mg Tablet) 2 mg PO BEDTIME [facility] Last Admin: 11/25/21 20:59 Dose: 2 mg Documented by: Risperidone (Risperidone 1 Mg Tablet) 1 mg PO DAILY [facility] Last Admin: 11/26/21 09:22 Dose: 1 mg Documented by: Trazodone HCl (Trazodone Hcl 50 Mg Tablet) 50 mg PO BEDTIME PRN PRN Reason: Insomnia Allergies Allergies Allergy/AdvReac Type Severity Reaction Status Date / Time adhesive AdvReac Unknown Verified 04/21/21 23:21 aspirin AdvReac Unknown Verified 04/21/21 23:20 epinephrine AdvReac Unknown Verified 04/21/21 23:21 Assessment & Plan Assessment & Plan (1) MDD (major depressive disorder), recurrent episode, moderate: Status: Acute Code(s): F33.1 - Major depressive disorder, recurrent, moderate Assessment and Plan: Presents with major depression without psychosis. Significant impact on ability to function. Stress around 's well-being and support. will discuss with primary team potential for starting ECT again. Noted hospitalist consult. No med changes for now Plan This is a?75yo F with COPD, HTN, hx TIA, hx hyperCA/hyperPTH s/p PTX, hx multiple colectomies with eventual reanastomosis for multiple precancerous polyps, s/p PPM for arrhythmia, prediabetes, depression, and PTSD admitted to [facility] for SI ECT - patient has had ECT before with no previous adverse outcomes. benefits likely outweigh any risks given depression/SI. Obtain EKG prior to any planned ECT No medication reconciliation has been done at this point. COPD continue Breo, previously on spiriva but no med rec done prn albuterol HTN previously on metoprolol ? d/c due to starting clonidine follow blood pressure HLD/hx TIA - continue statin tobacco abuse - smokes 6 cig/d; declines NRT depression/PTSD - medications as per psychiatry team Thank you for allowing us to participate in the care of this patient. Attending - dr. briones I spent minutes with the patient and/or on the patient floor today, greater than?50% of which was spent counseling/coordinating care. Reason for contiued inpatient stay Substantial Risk for: inability to function
[2021-11-26 18:00] VITALS: BP 135/76; PULSE 71; RESP 14; TEMP 36.3; O2SAT 95
[2021-11-26] MEDS: Acetaminophen 325 MG TABLET 650 MG PO (19:46)
[2021-11-26] MEDS: risperiDONE 2 MG TABLET PO (19:47)
[2021-11-26] MEDS: Melatonin 3 MG TABLET PO (19:47)
[2021-11-26] MEDS: Mirtazapine 15 MG TABLET PO (19:47)
[2021-11-27 05:57] LABS: Folate 13.6 ng/mL (> or = 4.0); Vitamin B12 412 pg/mL (200-900)
[2021-11-27 08:00] VITALS: BP 140/77; PULSE 92; RESP 18; TEMP 36.3; O2SAT 94
[2021-11-27] MEDS: Fluticasone/Vilanterol 100/25 BLST.W.DEV 1 PUFF INHALE (08:16)
[2021-11-27] MEDS: FLUoxetine HCl Oral Solution 20 MG/5 ML SOLUTION 60 MG PO (08:17)
[2021-11-27] MEDS: cloNIDine HCL 0.1 MG TABLET PO ×2 (08:19→20:48)
[2021-11-27] MEDS: risperiDONE 1 MG TABLET PO (08:19)
[2021-11-27] MEDS: Metoprolol Succinate ER 12.5 MG HALFTAB.ER.24H PO (08:20)
[2021-11-27] MEDS: Pravastatin Sodium 20 MG TABLET PO (08:20)
[2021-11-27] MEDS: Acetaminophen 325 MG TABLET 650 MG PO (09:03)
--- NOTE | 2021-11-27 09:09 | P.PNPSI_ITS ---
Subjective Subjective Date of Service: 11/27/21 Reason For Visit: depression and thoughts of Subjective Notes: Conditional Voluntary Guardianship: No Interim History: previously. Review with staff reveals patient very reactively changing to be alone fears of abandonment unclear if ECT beneficial need to clarify patient is asking for active ECT Mental Status Exam Mental Status Exam Patient Appearance: Well Grooomed Patient Orientation: Person Level of Consciousness: Awake Patient Behavior: Cooperative Mood Description: Calm Affect Description: Constricted Patient Cognition Impaired: Yes Ability to Follow Directions: Good Speech Pattern: Clear Hallucinations: None Delusions: Not Present Thought Process: Goal Oriented Thought Content: positive for Intact and positive for Poverty of Content Judgement: Fair Diagnostics Vital Signs (24Hr): Vital Signs - 24 hr 11/26/21 09:19 11/26/21 13:51 11/26/21 18:00 Temperature 98.2 F 97.4 F Pulse Rate 98 70 71 Respiratory Rate 17 14 Blood Pressure 111/59 L 101/55 L 135/76 Pulse Oximetry 94 95 BMI result Body Mass Index 25.9 Labs Results: 11/25/21 06:52 11/25/21 06:52 Labs: Laboratory Results - last 48 hr 11/25/21 06:52 Vitamin B12 412 Folate 13.6 Medications Medications Current Medications Acetaminophen (Acetaminophen 325 Mg Tablet) 650 mg PO Q6H PRN PRN Reason: Headache/Pain Mild Scale (1-3) Last Admin: 11/27/21 09:03 Dose: 650 mg Documented by: Al Hydroxide/Mg Hydroxide (Magnesium Hydrox/Alum Hydrox 30 Ml Oral.Susp) 30 ml PO Q6H PRN PRN Reason: Heartburn/Nausea Albuterol Sulfate (Albuterol Sulfate (0.083%) 2.5 Mg/3 Ml Vial.Neb) 2.5 mg INHALE Q6H PRN PRN Reason: Shortness of Breath/Wheezing Clonazepam (Clonazepam 0.5 Mg Tablet) 0.5 mg PO BID PRN PRN Reason: anxiety Clonidine HCl (Clonidine Hcl 0.1 Mg Tablet) 0.1 mg PO BID [facility]; Protocol Last Admin: 11/27/21 08:19 Dose: 0.1 mg Documented by: Fluoxetine HCl (Fluoxetine Hcl Oral Solution 20 Mg/5 Ml Solution) 60 mg PO DAILY [facility] Last Admin: 11/27/21 08:17 Dose: 60 mg Documented by: Fluticasone/Vilanterol (Fluticasone/Vilanterol 100/25 Blst.W.Dev) 1 puff INHALE RDAILY [facility] Last Admin: 11/27/21 08:16 Dose: 1 puff Documented by: Hydroxyzine HCl (Hydroxyzine Hcl 25 Mg Tablet) 25 mg PO BEDTIME PRN PRN Reason: Anxiety Magnesium Hydroxide (Milk Of Magnesia 30 Ml Oral.Susp) 30 ml PO DAILY PRN PRN Reason: Constipation Melatonin (Melatonin 3 Mg Tablet) 3 mg PO BEDTIME [facility] Last Admin: 11/26/21 19:47 Dose: 3 mg Documented by: Metoprolol Succinate (Metoprolol Succinate Er 12.5 Mg Halftab.Er.24h) 12.5 mg PO DAILY [facility]; Protocol Last Admin: 11/27/21 08:20 Dose: 12.5 mg Documented by: Mirtazapine (Mirtazapine 15 Mg Tablet) 15 mg PO BEDTIME [facility] Last Admin: 11/26/21 19:47 Dose: 15 mg Documented by: Pravastatin Sodium (Pravastatin Sodium 20 Mg Tablet) 20 mg PO DAILY [facility] Last Admin: 11/27/21 08:20 Dose: 20 mg Documented by: Risperidone (Risperidone 2 Mg Tablet) 2 mg PO BEDTIME [facility] Last Admin: 11/26/21 19:47 Dose: 2 mg Documented by: Risperidone (Risperidone 1 Mg Tablet) 1 mg PO DAILY [facility] Last Admin: 11/27/21 08:19 Dose: 1 mg Documented by: Trazodone HCl (Trazodone Hcl 50 Mg Tablet) 50 mg PO BEDTIME PRN PRN Reason: Insomnia Allergies Allergies Allergy/AdvReac Type Severity Reaction Status Date / Time adhesive AdvReac Unknown Verified 04/21/21 23:21 aspirin AdvReac Unknown Verified 04/21/21 23:20 epinephrine AdvReac Unknown Verified 04/21/21 23:21 Assessment & Plan Assessment & Plan (1) MDD (major depressive disorder), recurrent episode, moderate: Status: Acute Code(s): F33.1 - Major depressive disorder, recurrent, moderate Assessment and Plan: Presents with major depression without psychosis. Significant impact on ability to function. Stress around 's well-being and support. will discuss with primary team potential for starting ECT again. Noted hospitalist consult. No med changes for now 11/27/2021 will discuss with treatment team consider ECT question of recurrent depression question of addition of borderline pathology Plan This is a?75yo F with COPD, HTN, hx TIA, hx hyperCA/hyperPTH s/p PTX, hx multiple colectomies with eventual reanastomosis for multiple precancerous polyps, s/p PPM for arrhythmia, prediabetes, depression, and PTSD admitted to [facility] for SI ECT - patient has had ECT before with no previous adverse outcomes. benefits likely outweigh any risks given depression/SI. Obtain EKG prior to any planned ECT No medication reconciliation has been done at this point. COPD continue Breo, previously on spiriva but no med rec done prn albuterol HTN previously on metoprolol ? d/c due to starting clonidine follow blood pressure HLD/hx TIA - continue statin tobacco abuse - smokes 6 cig/d; declines NRT depression/PTSD - medications as per psychiatry team Thank you for allowing us to participate in the care of this patient. Attending - dr. briones I spent minutes with the patient and/or on the patient floor today, greater than?50% of which was spent counseling/coordinating care. Reason for contiued inpatient stay Substantial Risk for: harm to self
[2021-11-27 18:00] VITALS: BP 135/80; PULSE 62; RESP 16; TEMP 36.5; O2SAT 96
[2021-11-27] MEDS: Loperamide HCl 2 MG CAPSULE 4 MG PO (20:47)
[2021-11-27] MEDS: Melatonin 3 MG TABLET PO (20:49)
[2021-11-27] MEDS: Mirtazapine 15 MG TABLET PO (20:52)
[2021-11-27] MEDS: risperiDONE 2 MG TABLET PO (20:52)
[2021-11-27] MEDS: clonazePAM 0.5 MG TABLET PO (23:22)
[2021-11-28 07:30] VITALS: BP 122/78; PULSE 81; RESP 17; TEMP 36.2; O2SAT 96
[2021-11-28] MEDS: Pravastatin Sodium 20 MG TABLET PO (08:57)
[2021-11-28] MEDS: Metoprolol Succinate ER 12.5 MG HALFTAB.ER.24H PO (08:57)
[2021-11-28] MEDS: cloNIDine HCL 0.1 MG TABLET PO ×2 (08:57→21:05)
[2021-11-28] MEDS: FLUoxetine HCl Oral Solution 20 MG/5 ML SOLUTION 60 MG PO (08:57)
[2021-11-28] MEDS: risperiDONE 1 MG TABLET PO (08:57)
--- NOTE | 2021-11-28 11:31 | PM.EVENT ---
Event Note Date of Service: 11/28/21 Event Note: EKG reviewed. Chronic left bundle branch block noted since last Apr 2021. can go ahead with planned ECT unless other concerns.
--- NOTE | 2021-11-28 11:43 | P.PNPSI_ITS ---
Subjective Subjective Date of Service: 11/28/21 Reason For Visit: depression and thoughts of Subjective Notes: Conditional Voluntary Guardianship: No Medical Problems Affecting Mental Status: No Interim History: pt depressed hopeless helpless wishes to proceed with ect reviewed with hospitalist servive ekg Mental Status Exam Mental Status Exam Patient Appearance: Well Grooomed Patient Orientation: Person Level of Consciousness: Awake Patient Behavior: Cooperative Mood Description: Withdrawn, Constricted and Depressed Affect Description: Constricted and Depressed Patient Cognition Impaired: Yes Ability to Follow Directions: Good Speech Pattern: Clear Hallucinations: None Delusions: Not Present Thought Process: Goal Oriented Thought Content: positive for Intact and positive for Poverty of Content Depressive Symptoms: Hopelessness and Thoughts of /Suicide (denies active si) Judgement: Fair Diagnostics Vital Signs (24Hr): Vital Signs - 24 hr 11/27/21 18:00 11/28/21 07:30 Temperature 97.7 F 97.1 F Pulse Rate 62 81 Respiratory Rate 16 17 Blood Pressure 135/80 122/78 Pulse Oximetry 96 96 BMI result Body Mass Index 25.9 Labs Results: 11/25/21 06:52 11/25/21 06:52 Labs: Laboratory Results - last 48 hr 11/25/21 06:52 Vitamin B12 412 Folate 13.6 Medications Medications Current Medications Acetaminophen (Acetaminophen 325 Mg Tablet) 650 mg PO Q6H PRN PRN Reason: Headache/Pain Mild Scale (1-3) Last Admin: 11/27/21 09:03 Dose: 650 mg Documented by: Al Hydroxide/Mg Hydroxide (Magnesium Hydrox/Alum Hydrox 30 Ml Oral.Susp) 30 ml PO Q6H PRN PRN Reason: Heartburn/Nausea Albuterol Sulfate (Albuterol Sulfate (0.083%) 2.5 Mg/3 Ml Vial.Neb) 2.5 mg INHALE Q6H PRN PRN Reason: Shortness of Breath/Wheezing Clonazepam (Clonazepam 0.5 Mg Tablet) 0.5 mg PO BID PRN PRN Reason: anxiety Last Admin: 11/27/21 23:22 Dose: 0.5 mg Documented by: Clonidine HCl (Clonidine Hcl 0.1 Mg Tablet) 0.1 mg PO BID [facility]; Protocol Last Admin: 11/28/21 08:57 Dose: 0.1 mg Documented by: Fluoxetine HCl (Fluoxetine Hcl Oral Solution 20 Mg/5 Ml Solution) 60 mg PO DAILY [facility] Last Admin: 11/28/21 08:57 Dose: 60 mg Documented by: Fluticasone/Vilanterol (Fluticasone/Vilanterol 100/25 Blst.W.Dev) 1 puff INHALE RDAILY [facility] Last Admin: 11/27/21 08:16 Dose: 1 puff Documented by: Hydroxyzine HCl (Hydroxyzine Hcl 25 Mg Tablet) 25 mg PO BEDTIME PRN PRN Reason: Anxiety Loperamide HCl (Loperamide Hcl 2 Mg Capsule) 2 mg PO Q6H PRN PRN Reason: diarrhea Magnesium Hydroxide (Milk Of Magnesia 30 Ml Oral.Susp) 30 ml PO DAILY PRN PRN Reason: Constipation Melatonin (Melatonin 3 Mg Tablet) 3 mg PO BEDTIME [facility] Last Admin: 11/27/21 20:49 Dose: 3 mg Documented by: Metoprolol Succinate (Metoprolol Succinate Er 12.5 Mg Halftab.Er.24h) 12.5 mg PO DAILY [facility]; Protocol Last Admin: 11/28/21 08:57 Dose: 12.5 mg Documented by: Mirtazapine (Mirtazapine 15 Mg Tablet) 15 mg PO BEDTIME [facility] Last Admin: 11/27/21 20:52 Dose: 15 mg Documented by: Pravastatin Sodium (Pravastatin Sodium 20 Mg Tablet) 20 mg PO DAILY [facility] Last Admin: 11/28/21 08:57 Dose: 20 mg Documented by: Risperidone (Risperidone 2 Mg Tablet) 2 mg PO BEDTIME [facility] Last Admin: 11/27/21 20:52 Dose: 2 mg Documented by: Risperidone (Risperidone 1 Mg Tablet) 1 mg PO DAILY [facility] Last Admin: 11/28/21 08:57 Dose: 1 mg Documented by: Trazodone HCl (Trazodone Hcl 50 Mg Tablet) 50 mg PO BEDTIME PRN PRN Reason: Insomnia Allergies Allergies Allergy/AdvReac Type Severity Reaction Status Date / Time adhesive AdvReac Unknown Verified 04/21/21 23:21 aspirin AdvReac Unknown Verified 04/21/21 23:20 epinephrine AdvReac Unknown Verified 04/21/21 23:21 Assessment & Plan Assessment & Plan (1) MDD (major depressive disorder), recurrent episode, moderate: Status: Acute Code(s): F33.1 - Major depressive disorder, recurrent, moderate Assessment and Plan: Presents with major depression without psychosis. Significant impact on ability to function. Stress around 's well-being and support. will discuss with primary team potential for starting ECT again. Noted hospitalist consult. No med changes for now 11/27/2021 will discuss with treatment team consider ECT question of recurrent depression question of addition of borderline pathology 11/28/21 Pt seen chart reviewed mood severely depressed has responded to ect but also has severe anxiety re being alone ekg rbbb Plan This is a?75yo F with COPD, HTN, hx TIA, hx hyperCA/hyperPTH s/p PTX, hx multiple colectomies with eventual reanastomosis for multiple precancerous polyps, s/p PPM for arrhythmia, prediabetes, depression, and PTSD admitted to [facility] for SI ECT - patient has had ECT before with no previous adverse outcomes. benefits likely outweigh any risks given depression/SI. Obtain EKG prior to any planned ECT No medication reconciliation has been done at this point. COPD continue Breo, previously on spiriva but no med rec done prn albuterol HTN previously on metoprolol ? d/c due to starting clonidine follow blood pressure HLD/hx TIA - continue statin tobacco abuse - smokes 6 cig/d; declines NRT depression/PTSD - medications as per psychiatry team Thank you for allowing us to participate in the care of this patient. Attending - dr. briones I spent minutes with the patient and/or on the patient floor today, greater than?50% of which was spent counseling/coordinating care. Reason for contiued inpatient stay Substantial Risk for: harm to self
[2021-11-28] MEDS: clonazePAM 0.5 MG TABLET PO ×2 (12:30→21:04)
[2021-11-28 16:25] VITALS: BP 123/61; PULSE 62; RESP 16; TEMP 36.4; O2SAT 95
[2021-11-28 16:26] VITALS: BP 103/55; PULSE 61; RESP 16; O2SAT 96
--- NOTE | 2021-11-28 17:36 | P.PNPSI_ITS ---
Subjective Subjective Date of Service: 11/28/21 Reason For Visit: depression and thoughts of Subjective Notes: Conditional Voluntary Guardianship: No Medical Problems Affecting Mental Status: Yes Interim History: pt states had transient fascial weakness transient confusion remains depressed hopeless helpless asking about ect Medication Compliance: Yes Attending Groups: Yes Review of Systems Acute medical concerns: Yes Mental Status Exam Mental Status Exam Patient Appearance: Well Grooomed Patient Orientation: Person Level of Consciousness: Awake Patient Behavior: Appropriate and Cooperative Mood Description: Withdrawn, Constricted and Depressed Affect Description: Constricted and Depressed Patient Cognition Impaired: Yes Ability to Follow Directions: Good Speech Pattern: Clear Hallucinations: None Delusions: Not Present Thought Process: Goal Oriented Thought Content: positive for Intact and positive for Poverty of Content Depressive Symptoms: Hopelessness and Thoughts of /Suicide (denies active si) Judgement: Fair Diagnostics Vital Signs (24Hr): Vital Signs - 24 hr 11/27/21 18:00 11/28/21 07:30 11/28/21 16:25 Temperature 97.7 F 97.1 F 97.6 F Pulse Rate 62 81 62 Respiratory Rate 16 17 16 Blood Pressure 135/80 122/78 123/61 Pulse Oximetry 96 96 95 11/28/21 16:26 Temperature Pulse Rate 61 Respiratory Rate 16 Blood Pressure 103/55 L Pulse Oximetry 96 BMI result Body Mass Index 25.9 Labs Results: 11/25/21 06:52 11/25/21 06:52 Labs: Laboratory Results - last 48 hr 11/25/21 06:52 Vitamin B12 412 Folate 13.6 EKG EKG: reviewed EKG Comment: LBBB Medications Medications Current Medications Acetaminophen (Acetaminophen 325 Mg Tablet) 650 mg PO Q6H PRN PRN Reason: Headache/Pain Mild Scale (1-3) Last Admin: 11/27/21 09:03 Dose: 650 mg Documented by: Al Hydroxide/Mg Hydroxide (Magnesium Hydrox/Alum Hydrox 30 Ml Oral.Susp) 30 ml PO Q6H PRN PRN Reason: Heartburn/Nausea Albuterol Sulfate (Albuterol Sulfate (0.083%) 2.5 Mg/3 Ml Vial.Neb) 2.5 mg INHALE Q6H PRN PRN Reason: Shortness of Breath/Wheezing Clonazepam (Clonazepam 0.5 Mg Tablet) 0.5 mg PO BID PRN PRN Reason: anxiety Last Admin: 11/28/21 12:30 Dose: 0.5 mg Documented by: Clonidine HCl (Clonidine Hcl 0.1 Mg Tablet) 0.1 mg PO BID [facility]; Protocol Last Admin: 11/28/21 08:57 Dose: 0.1 mg Documented by: Fluoxetine HCl (Fluoxetine Hcl Oral Solution 20 Mg/5 Ml Solution) 60 mg PO DAILY [facility] Last Admin: 11/28/21 08:57 Dose: 60 mg Documented by: Fluticasone/Vilanterol (Fluticasone/Vilanterol 100/25 Blst.W.Dev) 1 puff INHALE RDAILY [facility] Last Admin: 11/27/21 08:16 Dose: 1 puff Documented by: Hydroxyzine HCl (Hydroxyzine Hcl 25 Mg Tablet) 25 mg PO BEDTIME PRN PRN Reason: Anxiety Loperamide HCl (Loperamide Hcl 2 Mg Capsule) 2 mg PO Q6H PRN PRN Reason: diarrhea Magnesium Hydroxide (Milk Of Magnesia 30 Ml Oral.Susp) 30 ml PO DAILY PRN PRN Reason: Constipation Melatonin (Melatonin 3 Mg Tablet) 3 mg PO BEDTIME [facility] Last Admin: 11/27/21 20:49 Dose: 3 mg Documented by: Metoprolol Succinate (Metoprolol Succinate Er 12.5 Mg Halftab.Er.24h) 12.5 mg PO DAILY [facility]; Protocol Last Admin: 11/28/21 08:57 Dose: 12.5 mg Documented by: Mirtazapine (Mirtazapine 30 Mg Tablet) 30 mg PO BEDTIME [facility] Pravastatin Sodium (Pravastatin Sodium 20 Mg Tablet) 20 mg PO DAILY [facility] Last Admin: 11/28/21 08:57 Dose: 20 mg Documented by: Risperidone (Risperidone 2 Mg Tablet) 2 mg PO BEDTIME [facility] Last Admin: 11/27/21 20:52 Dose: 2 mg Documented by: Risperidone (Risperidone 1 Mg Tablet) 1 mg PO DAILY [facility] Last Admin: 11/28/21 08:57 Dose: 1 mg Documented by: Trazodone HCl (Trazodone Hcl 50 Mg Tablet) 50 mg PO BEDTIME PRN PRN Reason: Insomnia Allergies Allergies Allergy/AdvReac Type Severity Reaction Status Date / Time adhesive AdvReac Unknown Verified 04/21/21 23:21 aspirin AdvReac Unknown Verified 04/21/21 23:20 epinephrine AdvReac Unknown Verified 10/15/21 23:21 Assessment & Plan Assessment & Plan (1) MDD (major depressive disorder), recurrent episode, moderate: Status: Acute Code(s): F33.1 - Major depressive disorder, recurrent, moderate Assessment and Plan: Presents with major depression without psychosis. Significant impact on ability to function. Stress around 's well-being and support. will discuss with primary team potential for starting ECT again. Noted hospitalist consult. No med changes for now 11/27/2021 will discuss with treatment team consider ECT question of recurrent depression question of addition of borderline pathology 11/28/21 Pt seen chart reviewed mood severely depressed has responded to ect but also has severe anxiety re being alone ekg rbbb Has c/o transient weakness confusion ? tia neuro consult head ct hold ect till neuro eval consider change risp to abilify Plan This is a?75yo F with COPD, HTN, hx TIA, hx hyperCA/hyperPTH s/p PTX, hx multiple colectomies with eventual reanastomosis for multiple precancerous polyps, s/p PPM for arrhythmia, prediabetes, depression, and PTSD admitted to [facility] for SI ECT - patient has had ECT before with no previous adverse outcomes. benefits likely outweigh any risks given depression/SI. Obtain EKG prior to any planned ECT No medication reconciliation has been done at this point. COPD continue Breo, previously on spiriva but no med rec done prn albuterol HTN previously on metoprolol ? d/c due to starting clonidine follow blood pressure HLD/hx TIA - continue statin tobacco abuse - smokes 6 cig/d; declines NRT depression/PTSD - medications as per psychiatry team Thank you for allowing us to participate in the care of this patient. Attending - dr. briones I spent minutes with the patient and/or on the patient floor today, greater than?50% of which was spent counseling/coordinating care. Reason for contiued inpatient stay Substantial Risk for: harm to self
--- NOTE | 2021-11-28 18:52 | PM.EVENT ---
Event Note Date of Service: 11/28/21 Event Note: spoke with nurse regarding Odessa Caryl there is a concern that patient had neurological deficit therefore CT head was ordered by Dr. Moore no new neuro deficit at this time, they recommended us to follow CT head report.
[2021-11-28 21:00] VITALS: BP 125/66; PULSE 60; RESP 16; TEMP 36.4; O2SAT 95
[2021-11-28] MEDS: Melatonin 3 MG TABLET PO (21:04)
[2021-11-28] MEDS: Sulfamethox/Trimeth 800/160 TABLET 1 TAB PO (21:05)
[2021-11-28] MEDS: Mirtazapine 30 MG TABLET PO (21:05)
[2021-11-28] MEDS: risperiDONE 2 MG TABLET PO (21:05)
[2021-11-28 22:15] VITALS: BP 127/61; PULSE 55
[2021-11-29 08:00] VITALS: BP 113/67; PULSE 75; RESP 17; TEMP 36; O2SAT 94
[2021-11-29] MEDS: FLUoxetine HCl Oral Solution 20 MG/5 ML SOLUTION 60 MG PO (08:24)
[2021-11-29] MEDS: Pravastatin Sodium 20 MG TABLET PO (08:25)
[2021-11-29] MEDS: cloNIDine HCL 0.1 MG TABLET PO ×2 (08:25→21:17)
[2021-11-29] MEDS: Metoprolol Succinate ER 12.5 MG HALFTAB.ER.24H PO (08:25)
[2021-11-29] MEDS: Sulfamethox/Trimeth 800/160 TABLET 1 TAB PO ×2 (08:25→21:17)
[2021-11-29] MEDS: risperiDONE 1 MG TABLET PO (08:25)
[2021-11-29] MEDS: Fluticasone/Vilanterol 100/25 BLST.W.DEV 1 PUFF INHALE (11:24)
[2021-11-29 13:00] VITALS: BP 126/65; PULSE 71
--- NOTE | 2021-11-29 15:50 | HO.PSYCHPN ---
Subjective Subjective Date of Service: 11/29/21 Reason For Visit: depression and thoughts of Subjective Notes: Conditional Voluntary Healthcare Proxy: Yes Interim History: pt carotid us not significant thyroid nodules noted pt depressed ruminating wishes to reconsider ect passive si anxious ruminating Medication Compliance: Yes Mental Status Exam Mental Status Exam Patient Appearance: Well Grooomed Patient Orientation: Person Level of Consciousness: Awake Patient Behavior: Appropriate and Cooperative Mood Description: Withdrawn, Constricted and Depressed Affect Description: Constricted and Depressed Patient Cognition Impaired: Yes Ability to Follow Directions: Good Speech Pattern: Clear Hallucinations: None Delusions: Not Present Thought Process: Goal Oriented Thought Content: positive for Intact and positive for Poverty of Content Depressive Symptoms: Hopelessness and Thoughts of /Suicide (denies active si) Judgement: Fair Diagnostics Vital Signs (24Hr): Vital Signs - 24 hr 11/28/21 16:25 11/28/21 16:26 11/28/21 21:00 Temperature 97.6 F 97.6 F Pulse Rate 62 61 60 Respiratory Rate 16 16 16 Blood Pressure 123/61 103/55 L 125/66 Pulse Oximetry 95 96 95 11/28/21 22:15 11/29/21 08:00 11/29/21 13:00 Temperature 96.8 F Pulse Rate 55 75 71 Respiratory Rate 17 Blood Pressure 127/61 113/67 126/65 Pulse Oximetry 94 BMI result Body Mass Index 25.9 Labs Results: 11/25/21 06:52 11/25/21 06:52 Imaging Radiology Impressions: ITS Impressions Head CT 11/28/21 20:53 IMPRESSION: No acute intracranial process seen Carotid Doppler Study 11/29/21 11:47 IMPRESSION: 1. RIGHT: Minimal, non-hemodynamically significant stenosis of the proximal right internal carotid artery corresponding to a 0-49% stenosis by velocity criteria. 2. LEFT: Minimal, non-hemodynamically significant stenosis of the proximal left internal carotid artery corresponding to a 0-49% stenosis by velocity criteria. Medications Medications Current Medications Acetaminophen (Acetaminophen 325 Mg Tablet) 650 mg PO Q6H PRN PRN Reason: Headache/Pain Mild Scale (1-3) Last Admin: 11/27/21 09:03 Dose: 650 mg Documented by: Al Hydroxide/Mg Hydroxide (Magnesium Hydrox/Alum Hydrox 30 Ml Oral.Susp) 30 ml PO Q6H PRN PRN Reason: Heartburn/Nausea Albuterol Sulfate (Albuterol Sulfate (0.083%) 2.5 Mg/3 Ml Vial.Neb) 2.5 mg INHALE Q6H PRN PRN Reason: Shortness of Breath/Wheezing Clonazepam (Clonazepam 0.5 Mg Tablet) 0.5 mg PO BID PRN PRN Reason: anxiety Last Admin: 11/28/21 21:04 Dose: 0.5 mg Documented by: Clonidine HCl (Clonidine Hcl 0.1 Mg Tablet) 0.1 mg PO BID [facility]; Protocol Last Admin: 11/29/21 08:25 Dose: 0.1 mg Documented by: Fluoxetine HCl (Fluoxetine Hcl Oral Solution 20 Mg/5 Ml Solution) 60 mg PO DAILY [facility] Last Admin: 11/29/21 08:24 Dose: 60 mg Documented by: Fluticasone/Vilanterol (Fluticasone/Vilanterol 100/25 Blst.W.Dev) 1 puff INHALE RDAILY [facility] Last Admin: 11/29/21 11:24 Dose: 1 puff Documented by: Hydroxyzine HCl (Hydroxyzine Hcl 25 Mg Tablet) 25 mg PO BEDTIME PRN PRN Reason: Anxiety Loperamide HCl (Loperamide Hcl 2 Mg Capsule) 2 mg PO Q6H PRN PRN Reason: diarrhea Magnesium Hydroxide (Milk Of Magnesia 30 Ml Oral.Susp) 30 ml PO DAILY PRN PRN Reason: Constipation Melatonin (Melatonin 3 Mg Tablet) 3 mg PO BEDTIME [facility] Last Admin: 11/28/21 21:04 Dose: 3 mg Documented by: Metoprolol Succinate (Metoprolol Succinate Er 12.5 Mg Halftab.Er.24h) 12.5 mg PO DAILY [facility]; Protocol Last Admin: 11/29/21 08:25 Dose: 12.5 mg Documented by: Mirtazapine (Mirtazapine 30 Mg Tablet) 30 mg PO BEDTIME [facility] Last Admin: 11/28/21 21:05 Dose: 30 mg Documented by: Pravastatin Sodium (Pravastatin Sodium 20 Mg Tablet) 20 mg PO DAILY [facility] Last Admin: 11/29/21 08:25 Dose: 20 mg Documented by: Risperidone (Risperidone 2 Mg Tablet) 2 mg PO BEDTIME [facility] Last Admin: 11/28/21 21:05 Dose: 2 mg Documented by: Risperidone (Risperidone 1 Mg Tablet) 1 mg PO DAILY [facility] Last Admin: 11/29/21 08:25 Dose: 1 mg Documented by: Trazodone HCl (Trazodone Hcl 50 Mg Tablet) 50 mg PO BEDTIME PRN PRN Reason: Insomnia Trimethoprim/Sulfamethoxazole (Sulfamethox/Trimeth 800/160 Tablet) 1 tab PO Q12H [facility] Stop: 12/01/21 08:01 Last Admin: 11/29/21 08:25 Dose: 1 tab Documented by: Allergies Allergies Allergy/AdvReac Type Severity Reaction Status Date / Time adhesive AdvReac Unknown Verified 04/21/21 23:21 aspirin AdvReac Unknown Verified 04/21/21 23:20 epinephrine AdvReac Unknown Verified 04/21/21 23:21 Assessment & Plan Assessment & Plan (1) MDD (major depressive disorder), recurrent episode, moderate: Status: Acute Code(s): F33.1 - Major depressive disorder, recurrent, moderate Assessment and Plan: Presents with major depression without psychosis. Significant impact on ability to function. Stress around 's well-being and support. will discuss with primary team potential for starting ECT again. Noted hospitalist consult. No med changes for now 11/27/2021 will discuss with treatment team consider ECT question of recurrent depression question of addition of borderline pathology 11/28/21 Pt seen chart reviewed mood severely depressed has responded to ect but also has severe anxiety re being alone ekg rbbb Has c/o transient weakness confusion ? tia neuro consult head ct hold ect till neuro eval consider change risp to abilify 11/29/21 ect restart abilify 2 mg daily Plan This is a?75yo F with COPD, HTN, hx TIA, hx hyperCA/hyperPTH s/p PTX, hx multiple colectomies with eventual reanastomosis for multiple precancerous polyps, s/p PPM for arrhythmia, prediabetes, depression, and PTSD admitted to [facility] for SI ECT - patient has had ECT before with no previous adverse outcomes. benefits likely outweigh any risks given depression/SI. Obtain EKG prior to any planned ECT No medication reconciliation has been done at this point. COPD continue Breo, previously on spiriva but no med rec done prn albuterol HTN previously on metoprolol ? d/c due to starting clonidine follow blood pressure HLD/hx TIA - continue statin tobacco abuse - smokes 6 cig/d; declines NRT depression/PTSD - medications as per psychiatry team Thank you for allowing us to participate in the care of this patient. Attending - dr. briones I spent minutes with the patient and/or on the patient floor today, greater than?50% of which was spent counseling/coordinating care. Reason for contiued inpatient stay Substantial Risk for: harm to self
--- NOTE | 2021-11-29 15:50 | PM.NEUROCN ---
History of Present Illness Data of Consult Service Date: 11/29/21 Primary Care Provider: Unknown Physician HPI Reason for consult: ?TIA 76 yr woman admitted for possible ECT as she was getting more depressed, thoughts of not wanting to continue with life.? Motivation and energy low.? Not caring for herself.? Appetite was getting poor.? Was getting some paranoia.? Reports Risperdal normally helps with this.? Sleep has been okay.? Reports her main stressor is her 's physical well-being and her needing to care for him at home and him being unable to drive her.? Reports this has limited her ability to have outpatient ECT- reported getting ECT back in the fall of 2020.?I was asked to see her as she thought she had a few second TIA 48 hrs earlier. She was talking to another patient when suddenly she felt that her face moved and her eyes momentarily weren't focused. There was no dizziness she was able to continue talking. Her face did not droop and there was no lateralized weakness or numbness. There was no slurring of her speech. It cleared within 5 seconds. She's never had a stroke or TIA in the past. Stroke risk factors include cardiaac pacemaker, hypertension and hyperlipidemia Review of Systems Review of Systems: Yes all other systems are reviewed and are negative Constitutional: Constitutional: Denies chills and Denies fever(s) ENT: Denies dizziness Cardiovascular: Cardiovascular: Denies chest pain, Denies palpitations and Denies dyspnea Respiratory: Respiratory: Denies cough and Denies dyspnea Gastrointestinal: Gastrointestinal: Denies abdominal pain, Denies nausea and Denies vomiting Neurologic: Denies dizziness Endocrine: Endocrine: Denies palpitations [facility] Past Medical History Medical History (Updated 11/25/21 @ 14:33 by BRANDI Irvin) COPD (chronic obstructive pulmonary disease) Depression Essential hypertension Hyperlipidemia Mitral valve prolapse Prediabetes PTSD (post-traumatic stress disorder) TIA (transient ischemic attack) Tobacco abuse Functional capacity: independent ambulation Family History Pertinent family history: pt reports family history of heart disease, DM and mental illness Surgical History Surgical History History of colectomy History of parathyroidectomy Social History Social History Household Members: Spouse Housing: Apartment Do you presently have visiting nurse or other home services: No Patient Tobacco Use Status: Current everyday Tobacco user Tobacco use type: Cigarette Cigarettes Per Day: 6 Years Smoked: 25 yrs. Smoked in Last 30 Days: Yes e-Cigarette/Vaping Use: Never Used Patient Interested in Nicotine Replacement: No Patient Given Instructions on How to Stop Smoking: Yes Date Education Initiated: 11/25/21 Second Hand Smoke Exposure: Yes Use of substances other than those prescribed or required for medical reasons: No Substance Use Type: Prescription Drugs and Caffiene Currently Displaying Signs/Symptoms of Drug Intoxication Withdrawal: No Any prior treatment program specific to substance use: No Have you been hit, kicked, punched, or otherwise hurt by someone within the past year? If so, by whom?: No Do you feel safe in your current relationship?: Yes Is there a partner from a previous relationship who is making you feel unsafe now?: No Advance Directives: No Advance Directives Information Provided: No Advance Directives on File: No [place] Symptoms: Anxiety and Hopelessness Access to Firearms: No Do you have thoughts of harming others: None Do you have a plan to hurt others: No Plan Recently lost weight without trying: No Eating poorly because of decreased appetite: No Nutrition Risks: No Nutritional Risk Patient : No : No Poor oral hygiene: No service: No Sexual orientation: Straight/Heterosexual Meds Allergies Allergy/AdvReac Type Severity Reaction Status Date / Time adhesive AdvReac Unknown Verified 04/21/21 23:21 aspirin AdvReac Unknown Verified 04/21/21 23:20 epinephrine AdvReac Unknown Verified 04/21/21 23:21 Active Medications: Current Medications Acetaminophen (Acetaminophen 325 Mg Tablet) 650 mg PO Q6H PRN PRN Reason: Headache/Pain Mild Scale (1-3) Last Admin: 11/27/21 09:03 Dose: 650 mg Documented by: Al Hydroxide/Mg Hydroxide (Magnesium Hydrox/Alum Hydrox 30 Ml Oral.Susp) 30 ml PO Q6H PRN PRN Reason: Heartburn/Nausea Albuterol Sulfate (Albuterol Sulfate (0.083%) 2.5 Mg/3 Ml Vial.Neb) 2.5 mg INHALE Q6H PRN PRN Reason: Shortness of Breath/Wheezing Clonazepam (Clonazepam 0.5 Mg Tablet) 0.5 mg PO BID PRN PRN Reason: anxiety Last Admin: 11/28/21 21:04 Dose: 0.5 mg Documented by: Clonidine HCl (Clonidine Hcl 0.1 Mg Tablet) 0.1 mg PO BID [facility]; Protocol Last Admin: 11/29/21 08:25 Dose: 0.1 mg Documented by: Fluoxetine HCl (Fluoxetine Hcl Oral Solution 20 Mg/5 Ml Solution) 60 mg PO DAILY [facility] Last Admin: 11/29/21 08:24 Dose: 60 mg Documented by: Fluticasone/Vilanterol (Fluticasone/Vilanterol 100/25 Blst.W.Dev) 1 puff INHALE RDAILY [facility] Last Admin: 11/29/21 11:24 Dose: 1 puff Documented by: Hydroxyzine HCl (Hydroxyzine Hcl 25 Mg Tablet) 25 mg PO BEDTIME PRN PRN Reason: Anxiety Loperamide HCl (Loperamide Hcl 2 Mg Capsule) 2 mg PO Q6H PRN PRN Reason: diarrhea Magnesium Hydroxide (Milk Of Magnesia 30 Ml Oral.Susp) 30 ml PO DAILY PRN PRN Reason: Constipation Melatonin (Melatonin 3 Mg Tablet) 3 mg PO BEDTIME [facility] Last Admin: 11/28/21 21:04 Dose: 3 mg Documented by: Metoprolol Succinate (Metoprolol Succinate Er 12.5 Mg Halftab.Er.24h) 12.5 mg PO DAILY [facility]; Protocol Last Admin: 11/29/21 08:25 Dose: 12.5 mg Documented by: Mirtazapine (Mirtazapine 30 Mg Tablet) 30 mg PO BEDTIME [facility] Last Admin: 11/28/21 21:05 Dose: 30 mg Documented by: Pravastatin Sodium (Pravastatin Sodium 20 Mg Tablet) 20 mg PO DAILY [facility] Last Admin: 11/29/21 08:25 Dose: 20 mg Documented by: Risperidone (Risperidone 2 Mg Tablet) 2 mg PO BEDTIME [facility] Last Admin: 11/28/21 21:05 Dose: 2 mg Documented by: Risperidone (Risperidone 1 Mg Tablet) 1 mg PO DAILY [facility] Last Admin: 11/29/21 08:25 Dose: 1 mg Documented by: Trazodone HCl (Trazodone Hcl 50 Mg Tablet) 50 mg PO BEDTIME PRN PRN Reason: Insomnia Trimethoprim/Sulfamethoxazole (Sulfamethox/Trimeth 800/160 Tablet) 1 tab PO Q12H [facility] Stop: 12/01/21 08:01 Last Admin: 11/29/21 08:25 Dose: 1 tab Documented by: Home Medications Medication Instructions Recorded Confirmed Last Taken Type aspirin 81 mg tablet 81 mg PO DAILY 04/22/21 04/22/21 Unknown History risperidone 1 mg tablet 1 mg PO DAILY 04/22/21 04/22/21 Unknown History risperidone 2 mg tablet 2 mg PO BEDTIME 04/22/21 04/22/21 Unknown History tiotropium bromide 1.25 18 mcg INHALATION DAILY MDD 2 puffs 04/22/21 04/25/21 Unknown History mcg/actuation mist for inhalation (Spiriva Respimat) Physical Exam Vital Signs: Vital Signs: Last Vital Signs Temp 96.8 F 11/29/21 08:00 Pulse 71 11/29/21 13:00 Resp 17 11/29/21 08:00 BP 126/65 11/29/21 13:00 Pulse Ox 94 11/29/21 08:00 BMI result Body Mass Index 25.9 Const: General: cooperative, comfortable, no acute distress, alert and awake Resp: Effort & Inspection: normal respiratory effort and able to speak in complete sentences Auscultation: clear to auscultation bilaterally Neuro: Other: Normal neurological examination Cranial nerves: Yes CN's II-XII intact bilaterally Results Labs CBC & Chem 7: 11/25/21 06:52 11/25/21 06:52 Microbiology Microbiology Results: Microbiology 11/25/21 09:30 Urine clean catch - Urine ceron top Urine Culture - Final Escherichia coli Assessment and Plan (1) MDD (major depressive disorder), recurrent episode, moderate: Status: Acute Presents with major depression without psychosis. Significant impact on ability to function. Stress around 's well-being and support. will discuss with primary team potential for starting ECT again. Noted hospitalist consult. No med changes for now 11/27/2021 will discuss with treatment team consider ECT question of recurrent depression question of addition of borderline pathology 11/28/21 Pt seen chart reviewed mood severely depressed has responded to ect but also has severe anxiety re being alone ekg rbbb Has c/o transient weakness confusion ? tia neuro consult head ct hold ect till neuro eval consider change risp to abilify (2) TIA (transient ischemic attack): Status: Acute Her symptoms are atypical and unlikely to be a TIA, however, in view of her stroke risk factors it is appropriate to do a carotid Doppler. CT scan of the brain was normal. Procedures Date of Service Date of Service: 11/29/21
[2021-11-29 18:00] VITALS: BP 128/66; PULSE 58
[2021-11-29 21:15] VITALS: BP 122/60; PULSE 63; TEMP 36.4; O2SAT 95
[2021-11-29] MEDS: Melatonin 3 MG TABLET PO (21:17)
[2021-11-29] MEDS: risperiDONE 2 MG TABLET PO (21:17)
[2021-11-29] MEDS: Mirtazapine 30 MG TABLET PO (21:17)
[2021-11-29] MEDS: clonazePAM 0.5 MG TABLET PO (21:20)
[2021-11-29] MEDS: Acetaminophen 325 MG TABLET 650 MG PO (23:01)
[2021-11-30] MEDS: Pravastatin Sodium 20 MG TABLET PO (08:41)
[2021-11-30] MEDS: Metoprolol Succinate ER 12.5 MG HALFTAB.ER.24H PO (08:41)
[2021-11-30] MEDS: ARIPiprazole 2 MG TABLET PO (08:41)
[2021-11-30] MEDS: Sulfamethox/Trimeth 800/160 TABLET 1 TAB PO ×2 (08:41→21:50)
[2021-11-30] MEDS: FLUoxetine HCl Oral Solution 20 MG/5 ML SOLUTION 60 MG PO (08:41)
[2021-11-30] MEDS: cloNIDine HCL 0.1 MG TABLET PO ×2 (08:42→21:50)
[2021-11-30] MEDS: Fluticasone/Vilanterol 100/25 BLST.W.DEV 1 PUFF INHALE (10:16)
[2021-11-30 14:54] LABS: COVID-19 Test Positive (Negative)
[2021-11-30 16:00] VITALS: BP 110/73; PULSE 66; RESP 18; TEMP 36.4; O2SAT 95
--- NOTE | 2021-11-30 18:21 | PM.EVENT ---
Event Note Date of Service: 11/30/21 Event Note: Tested positive for covid before ECT, has some cough but no shortness of breah and otherwise feels fine, lungs CTA, O2 sat 95 room air. At moment no indication of r steroid, remdesevir. Will monitor clinically
--- NOTE | 2021-11-30 18:26 | PC.NURSE ---
pt to dayroom today with c/o increased coughing and pain during db and cough. pt sat in day room. lungs evaluated and clear bilat. o2 sat 95% on room air States having productive cough of yellow thick secretions and nasal congestion. tc to dr mitchell with orders received for covid testing which returned test was positive. Pt placed to room for isolation and given increased fluids. dr hanna here to see pt. orders received pt to have q4 vs and resp assessment
[2021-11-30 21:00] VITALS: BP 175/81; PULSE 63; RESP 18; TEMP 36.6; O2SAT 96
[2021-11-30] MEDS: risperiDONE 2 MG TABLET PO (21:50)
[2021-11-30] MEDS: Albuterol Sulfate 90 MCG 8 GM INHALER 2 PUFF INHALE (21:50)
[2021-11-30] MEDS: Melatonin 3 MG TABLET PO (21:50)
[2021-11-30] MEDS: Mirtazapine 30 MG TABLET PO (21:50)
--- NOTE | 2021-11-30 22:01 | HO.PSYCHPN ---
Subjective Subjective Date of Service: 11/30/21 Reason For Visit: depression and thoughts of Subjective Notes: Conditional Voluntary Healthcare Proxy: Yes (not activated ) Guardianship: No Interim History: Patient seen in psychiatric follow-up. Patient was scheduled for ECT in a.m. unfortunately developed cough productive sputum COVID tested and was positive. Patient on isolation. Patient not actively suicidal not in physical distress outside of cough sputum tolerated abilify 2 mg Mental Status Exam Mental Status Exam Patient Appearance: Well Grooomed Patient Orientation: Person Level of Consciousness: Awake Patient Behavior: Appropriate and Cooperative Mood Description: Withdrawn, Constricted and Depressed Affect Description: Constricted and Depressed Patient Cognition Impaired: Yes Ability to Follow Directions: Good Speech Pattern: Clear Hallucinations: None Delusions: Not Present Thought Process: Goal Oriented Thought Content: positive for Intact and positive for Poverty of Content Depressive Symptoms: Hopelessness and Thoughts of /Suicide (denies active si) Judgement: Fair Diagnostics Vital Signs (24Hr): Vital Signs - 24 hr 11/30/21 16:00 Temperature 97.5 F Pulse Rate 66 Respiratory Rate 18 Blood Pressure 110/73 Pulse Oximetry 95 BMI result Body Mass Index 25.9 Labs Results: 11/25/21 06:52 11/25/21 06:52 Labs: Laboratory Results - last 48 hr 11/30/21 14:40 COVID-19 (LANE) Positive A COVID-19 Clin Com See Note Imaging Radiology Impressions: ITS Impressions Head CT 11/28/21 20:53 IMPRESSION: No acute intracranial process seen Carotid Doppler Study 11/29/21 11:47 IMPRESSION: 1. RIGHT: Minimal, non-hemodynamically significant stenosis of the proximal right internal carotid artery corresponding to a 0-49% stenosis by velocity criteria. 2. LEFT: Minimal, non-hemodynamically significant stenosis of the proximal left internal carotid artery corresponding to a 0-49% stenosis by velocity criteria. Medications Medications Current Medications Acetaminophen (Acetaminophen 325 Mg Tablet) 650 mg PO Q6H PRN PRN Reason: Headache/Pain Mild Scale (1-3) Last Admin: 11/29/21 23:01 Dose: 650 mg Documented by: Al Hydroxide/Mg Hydroxide (Magnesium Hydrox/Alum Hydrox 30 Ml Oral.Susp) 30 ml PO Q6H PRN PRN Reason: Heartburn/Nausea Albuterol Sulfate (Albuterol Sulfate (0.083%) 2.5 Mg/3 Ml Vial.Neb) 2.5 mg INHALE Q6H PRN PRN Reason: Shortness of Breath/Wheezing Albuterol Sulfate (Albuterol Sulfate 90 Mcg 8 Gm Inhaler) 2 puff INHALE RQ4H PRN PRN Reason: shortness of breath or wheezin Aripiprazole (Aripiprazole 2 Mg Tablet) 2 mg PO DAILY [facility] Last Admin: 11/30/21 08:41 Dose: 2 mg Documented by: Clonidine HCl (Clonidine Hcl 0.1 Mg Tablet) 0.1 mg PO BID [facility]; Protocol Last Admin: 11/30/21 08:42 Dose: 0.1 mg Documented by: Fluoxetine HCl (Fluoxetine Hcl Oral Solution 20 Mg/5 Ml Solution) 60 mg PO DAILY [facility] Last Admin: 11/30/21 08:41 Dose: 60 mg Documented by: Fluticasone/Vilanterol (Fluticasone/Vilanterol 100/25 Blst.W.Dev) 1 puff INHALE RDAILY [facility] Last Admin: 11/30/21 10:16 Dose: 1 puff Documented by: Guaifenesin (Guaifenesin 100 Mg/5 Ml Liquid) 5 ml PO Q4H PRN PRN Reason: Cough Hydroxyzine HCl (Hydroxyzine Hcl 25 Mg Tablet) 25 mg PO BEDTIME PRN PRN Reason: Anxiety Loperamide HCl (Loperamide Hcl 2 Mg Capsule) 2 mg PO Q6H PRN PRN Reason: diarrhea Magnesium Hydroxide (Milk Of Magnesia 30 Ml Oral.Susp) 30 ml PO DAILY PRN PRN Reason: Constipation Melatonin (Melatonin 3 Mg Tablet) 3 mg PO BEDTIME [facility] Last Admin: 11/29/21 21:17 Dose: 3 mg Documented by: Metoprolol Succinate (Metoprolol Succinate Er 12.5 Mg Halftab.Er.24h) 12.5 mg PO DAILY [facility]; Protocol Last Admin: 11/30/21 08:41 Dose: 12.5 mg Documented by: Mirtazapine (Mirtazapine 30 Mg Tablet) 30 mg PO BEDTIME [facility] Last Admin: 11/29/21 21:17 Dose: 30 mg Documented by: Pravastatin Sodium (Pravastatin Sodium 20 Mg Tablet) 20 mg PO DAILY [facility] Last Admin: 11/30/21 08:41 Dose: 20 mg Documented by: Risperidone (Risperidone 2 Mg Tablet) 2 mg PO BEDTIME [facility] Last Admin: 11/29/21 21:17 Dose: 2 mg Documented by: Trazodone HCl (Trazodone Hcl 50 Mg Tablet) 50 mg PO BEDTIME PRN PRN Reason: Insomnia Trimethoprim/Sulfamethoxazole (Sulfamethox/Trimeth 800/160 Tablet) 1 tab PO Q12H [facility] Stop: 12/01/21 08:01 Last Admin: 11/30/21 08:41 Dose: 1 tab Documented by: Allergies Allergies Allergy/AdvReac Type Severity Reaction Status Date / Time adhesive AdvReac Unknown Verified 04/21/21 23:21 aspirin AdvReac Unknown Verified 04/21/21 23:20 epinephrine AdvReac Unknown Verified 04/21/21 23:21 Assessment & Plan Assessment & Plan (1) MDD (major depressive disorder), recurrent episode, moderate: Status: Acute Code(s): F33.1 - Major depressive disorder, recurrent, moderate Assessment and Plan: Presents with major depression without psychosis. Significant impact on ability to function. Stress around 's well-being and support. will discuss with primary team potential for starting ECT again. Noted hospitalist consult. No med changes for now 11/27/2021 will discuss with treatment team consider ECT question of recurrent depression question of addition of borderline pathology 11/28/21 Pt seen chart reviewed mood severely depressed has responded to ect but also has severe anxiety re being alone ekg rbbb Has c/o transient weakness confusion ? tia neuro consult head ct hold ect till neuro eval consider change risp to abilify 11/29/21 ect restart abilify 2 mg daily 11/30/2021 COVID positive patient on isolation hospitalist consult id. Monitor for exacerbation of symptoms so to 95% continue Abilify lower Prozac increase mirtazapine as tolerated. Hold off on ECT currently Plan This is a?75yo F with COPD, HTN, hx TIA, hx hyperCA/hyperPTH s/p PTX, hx multiple colectomies with eventual reanastomosis for multiple precancerous polyps, s/p PPM for arrhythmia, prediabetes, depression, and PTSD admitted to [facility] for SI ECT - patient has had ECT before with no previous adverse outcomes. benefits likely outweigh any risks given depression/SI. Obtain EKG prior to any planned ECT No medication reconciliation has been done at this point. COPD continue Breo, previously on spiriva but no med rec done prn albuterol HTN previously on metoprolol ? d/c due to starting clonidine follow blood pressure HLD/hx TIA - continue statin tobacco abuse - smokes 6 cig/d; declines NRT depression/PTSD - medications as per psychiatry team Thank you for allowing us to participate in the care of this patient. Attending - dr. briones I spent minutes with the patient and/or on the patient floor today, greater than?50% of which was spent counseling/coordinating care. Reason for contiued inpatient stay Substantial Risk for: harm to self and rapid decompensation
--- NOTE | 2021-11-30 22:27 | HO.PSYCHPN ---
Subjective Subjective Date of Service: 11/30/21 Reason For Visit: depression and thoughts of Diagnostics Vital Signs (24Hr): Vital Signs - 24 hr 11/30/21 16:00 Temperature 97.5 F Pulse Rate 66 Respiratory Rate 18 Blood Pressure 110/73 Pulse Oximetry 95 BMI result Body Mass Index 25.9 Labs Results: 11/25/21 06:52 11/25/21 06:52 Labs: Laboratory Results - last 48 hr 11/30/21 14:40 COVID-19 (LANE) Positive A COVID-19 Clin Com See Note Imaging Radiology Impressions: ITS Impressions Head CT 11/28/21 20:53 IMPRESSION: No acute intracranial process seen Carotid Doppler Study 11/29/21 11:47 IMPRESSION: 1. RIGHT: Minimal, non-hemodynamically significant stenosis of the proximal right internal carotid artery corresponding to a 0-49% stenosis by velocity criteria. 2. LEFT: Minimal, non-hemodynamically significant stenosis of the proximal left internal carotid artery corresponding to a 0-49% stenosis by velocity criteria. Medications Medications Current Medications Acetaminophen (Acetaminophen 325 Mg Tablet) 650 mg PO Q6H PRN PRN Reason: Headache/Pain Mild Scale (1-3) Last Admin: 11/29/21 23:01 Dose: 650 mg Documented by: Al Hydroxide/Mg Hydroxide (Magnesium Hydrox/Alum Hydrox 30 Ml Oral.Susp) 30 ml PO Q6H PRN PRN Reason: Heartburn/Nausea Albuterol Sulfate (Albuterol Sulfate (0.083%) 2.5 Mg/3 Ml Vial.Neb) 2.5 mg INHALE Q6H PRN PRN Reason: Shortness of Breath/Wheezing Albuterol Sulfate (Albuterol Sulfate 90 Mcg 8 Gm Inhaler) 2 puff INHALE RQ4H PRN PRN Reason: shortness of breath or wheezin Last Admin: 11/30/21 21:50 Dose: 2 puff Documented by: Aripiprazole (Aripiprazole 2 Mg Tablet) 2 mg PO DAILY [facility] Last Admin: 11/30/21 08:41 Dose: 2 mg Documented by: Clonidine HCl (Clonidine Hcl 0.1 Mg Tablet) 0.1 mg PO BID [facility]; Protocol Last Admin: 11/30/21 21:50 Dose: 0.1 mg Documented by: Fluoxetine HCl (Fluoxetine Hcl Oral Solution 20 Mg/5 Ml Solution) 40 mg PO DAILY [facility] Fluticasone/Vilanterol (Fluticasone/Vilanterol 100/25 Blst.W.Dev) 1 puff INHALE RDAILY [facility] Last Admin: 11/30/21 10:16 Dose: 1 puff Documented by: Guaifenesin (Guaifenesin 100 Mg/5 Ml Liquid) 5 ml PO Q4H PRN PRN Reason: Cough Hydroxyzine HCl (Hydroxyzine Hcl 25 Mg Tablet) 25 mg PO BEDTIME PRN PRN Reason: Anxiety Loperamide HCl (Loperamide Hcl 2 Mg Capsule) 2 mg PO Q6H PRN PRN Reason: diarrhea Magnesium Hydroxide (Milk Of Magnesia 30 Ml Oral.Susp) 30 ml PO DAILY PRN PRN Reason: Constipation Melatonin (Melatonin 3 Mg Tablet) 3 mg PO BEDTIME [facility] Last Admin: 11/30/21 21:50 Dose: 3 mg Documented by: Metoprolol Succinate (Metoprolol Succinate Er 12.5 Mg Halftab.Er.24h) 12.5 mg PO DAILY [facility]; Protocol Last Admin: 11/30/21 08:41 Dose: 12.5 mg Documented by: Mirtazapine (Mirtazapine 30 Mg Tablet) 30 mg PO BEDTIME [facility] Last Admin: 11/30/21 21:50 Dose: 30 mg Documented by: Pravastatin Sodium (Pravastatin Sodium 20 Mg Tablet) 20 mg PO DAILY [facility] Last Admin: 11/30/21 08:41 Dose: 20 mg Documented by: Risperidone (Risperidone 2 Mg Tablet) 2 mg PO BEDTIME [facility] Last Admin: 11/30/21 21:50 Dose: 2 mg Documented by: Trazodone HCl (Trazodone Hcl 50 Mg Tablet) 50 mg PO BEDTIME PRN PRN Reason: Insomnia Trimethoprim/Sulfamethoxazole (Sulfamethox/Trimeth 800/160 Tablet) 1 tab PO Q12H [facility] Stop: 12/01/21 08:01 Last Admin: 11/30/21 21:50 Dose: 1 tab Documented by: Allergies Allergies Allergy/AdvReac Type Severity Reaction Status Date / Time adhesive AdvReac Unknown Verified 04/21/21 23:21 aspirin AdvReac Unknown Verified 04/21/21 23:20 epinephrine AdvReac Unknown Verified 04/21/21 23:21 Assessment & Plan Assessment & Plan (1) MDD (major depressive disorder), recurrent episode, moderate: Status: Acute Code(s): F33.1 - Major depressive disorder, recurrent, moderate Assessment and Plan: Presents with major depression without psychosis. Significant impact on ability to function. Stress around 's well-being and support. will discuss with primary team potential for starting ECT again. Noted hospitalist consult. No med changes for now 11/27/2021 will discuss with treatment team consider ECT question of recurrent depression question of addition of borderline pathology 11/28/21 Pt seen chart reviewed mood severely depressed has responded to ect but also has severe anxiety re being alone ekg rbbb Has c/o transient weakness confusion ? tia neuro consult head ct hold ect till neuro eval consider change risp to abilify 11/29/21 ect restart abilify 2 mg daily 11/30/2021 COVID positive patient on isolation hospitalist consult id. Monitor for exacerbation of symptoms so to 95% continue Abilify lower Prozac increase mirtazapine as tolerated. Hold off on ECT currently Plan This is a?75yo F with COPD, HTN, hx TIA, hx hyperCA/hyperPTH s/p PTX, hx multiple colectomies with eventual reanastomosis for multiple precancerous polyps, s/p PPM for arrhythmia, prediabetes, depression, and PTSD admitted to [facility] for SI ECT - patient has had ECT before with no previous adverse outcomes. benefits likely outweigh any risks given depression/SI. Obtain EKG prior to any planned ECT No medication reconciliation has been done at this point. COPD continue Breo, previously on spiriva but no med rec done prn albuterol HTN previously on metoprolol ? d/c due to starting clonidine follow blood pressure HLD/hx TIA - continue statin tobacco abuse - smokes 6 cig/d; declines NRT depression/PTSD - medications as per psychiatry team Thank you for allowing us to participate in the care of this patient. Attending - dr. briones I spent minutes with the patient and/or on the patient floor today, greater than?50% of which was spent counseling/coordinating care. Reason for contiued inpatient stay Substantial Risk for: harm to self and rapid decompensation
[2021-12-01 05:00] VITALS: BP 130/71; PULSE 58; RESP 18; TEMP 35.7; O2SAT 93
[2021-12-01 09:00] VITALS: BP 130/61; PULSE 70; RESP 18; TEMP 35.9; O2SAT 94
[2021-12-01] MEDS: FLUoxetine HCl Oral Solution 20 MG/5 ML SOLUTION 40 MG PO (09:10)
[2021-12-01] MEDS: Pravastatin Sodium 20 MG TABLET PO (09:11)
[2021-12-01] MEDS: Metoprolol Succinate ER 12.5 MG HALFTAB.ER.24H PO (09:11)
[2021-12-01] MEDS: Albuterol Sulfate 90 MCG 8 GM INHALER 2 PUFF INHALE (09:11)
[2021-12-01] MEDS: cloNIDine HCL 0.1 MG TABLET PO ×2 (09:11→20:44)
[2021-12-01] MEDS: ARIPiprazole 2 MG TABLET PO (09:11)
[2021-12-01] MEDS: Sulfamethox/Trimeth 800/160 TABLET 1 TAB PO (09:11)
[2021-12-01] MEDS: Fluticasone/Vilanterol 100/25 BLST.W.DEV 1 PUFF INHALE (09:13)
[2021-12-01 13:00] VITALS: BP 149/67; PULSE 59; RESP 18; TEMP 36.1; O2SAT 97
[2021-12-01 18:04] VITALS: BP 148/68; PULSE 66; RESP 18; TEMP 36.2; O2SAT 96
[2021-12-01] MEDS: risperiDONE 2 MG TABLET PO (20:44)
[2021-12-01] MEDS: Melatonin 3 MG TABLET PO (20:44)
[2021-12-01] MEDS: Mirtazapine 30 MG TABLET PO (20:45)
[2021-12-01 22:00] VITALS: BP 156/70; PULSE 64; RESP 16; TEMP 36.3; O2SAT 94
--- NOTE | 2021-12-01 22:25 | P.PNPSI_ITS ---
Subjective Subjective Date of Service: 12/01/21 Reason For Visit: depression and thoughts of Subjective Notes: Conditional Voluntary Guardianship: No Medical Problems Affecting Mental Status: No Interim History: pt covid pos in isolation but not overly ill patient depressed but improved from admission denies active self-harm some cough but no significant shortness of breath agreeable to increasing Abilify tolerating 2 mg some decrease anxiety with mirtazapine 30 mg Mental Status Exam Mental Status Exam Patient Appearance: Well Grooomed Patient Orientation: Person, Place, Time and Situation Level of Consciousness: Awake Patient Behavior: Appropriate and Cooperative Mood Description: Withdrawn, Constricted, Depressed and Apprehensive Affect Description: Constricted and Depressed Patient Cognition Impaired: Yes Ability to Follow Directions: Good Speech Pattern: Clear Hallucinations: None Delusions: Not Present Thought Process: Goal Oriented Thought Content: positive for Intact and positive for Poverty of Content Depressive Symptoms: Increased Anxiety, Hopelessness and Thoughts of /Suicide (denies active si) Judgement: Fair Diagnostics Vital Signs (24Hr): Vital Signs - 24 hr 12/01/21 05:00 12/01/21 09:00 12/01/21 13:00 Temperature 96.2 F L 96.6 F L 97 F Pulse Rate 58 70 59 Respiratory Rate 18 18 18 Blood Pressure 130/71 130/61 149/67 H Pulse Oximetry 93 94 97 12/01/21 18:04 Temperature 97.2 F Pulse Rate 66 Respiratory Rate 18 Blood Pressure 148/68 H Pulse Oximetry 96 BMI result Body Mass Index 25.9 Labs Results: 11/25/21 06:52 11/25/21 06:52 Labs: Laboratory Results - last 48 hr 11/30/21 14:40 COVID-19 (LANE) Positive A COVID-19 Clin Com See Note Imaging Radiology Impressions: ITS Impressions Head CT 11/28/21 20:53 IMPRESSION: No acute intracranial process seen Carotid Doppler Study 11/29/21 11:47 IMPRESSION: 1. RIGHT: Minimal, non-hemodynamically significant stenosis of the proximal right internal carotid artery corresponding to a 0-49% stenosis by velocity criteria. 2. LEFT: Minimal, non-hemodynamically significant stenosis of the proximal left internal carotid artery corresponding to a 0-49% stenosis by velocity criteria. Medications Medications Current Medications Acetaminophen (Acetaminophen 325 Mg Tablet) 650 mg PO Q6H PRN PRN Reason: Headache/Pain Mild Scale (1-3) Last Admin: 11/29/21 23:01 Dose: 650 mg Documented by: Al Hydroxide/Mg Hydroxide (Magnesium Hydrox/Alum Hydrox 30 Ml Oral.Susp) 30 ml PO Q6H PRN PRN Reason: Heartburn/Nausea Albuterol Sulfate (Albuterol Sulfate (0.083%) 2.5 Mg/3 Ml Vial.Neb) 2.5 mg INHALE Q6H PRN PRN Reason: Shortness of Breath/Wheezing Albuterol Sulfate (Albuterol Sulfate 90 Mcg 8 Gm Inhaler) 2 puff INHALE RQ4H PRN PRN Reason: shortness of breath or wheezin Last Admin: 12/01/21 09:11 Dose: 2 puff Documented by: Aripiprazole (Aripiprazole 2 Mg Tablet) 2 mg PO DAILY [facility] Last Admin: 12/01/21 09:11 Dose: 2 mg Documented by: Clonidine HCl (Clonidine Hcl 0.1 Mg Tablet) 0.1 mg PO BID [facility]; Protocol Last Admin: 12/01/21 20:44 Dose: 0.1 mg Documented by: Fluoxetine HCl (Fluoxetine Hcl Oral Solution 20 Mg/5 Ml Solution) 40 mg PO DAILY [facility] Last Admin: 12/01/21 09:10 Dose: 40 mg Documented by: Fluticasone/Vilanterol (Fluticasone/Vilanterol 100/25 Blst.W.Dev) 1 puff INHALE RDAILY [facility] Last Admin: 12/01/21 09:13 Dose: 1 puff Documented by: Guaifenesin (Guaifenesin 100 Mg/5 Ml Liquid) 5 ml PO Q4H PRN PRN Reason: Cough Hydroxyzine HCl (Hydroxyzine Hcl 25 Mg Tablet) 25 mg PO BEDTIME PRN PRN Reason: Anxiety Loperamide HCl (Loperamide Hcl 2 Mg Capsule) 2 mg PO Q6H PRN PRN Reason: diarrhea Magnesium Hydroxide (Milk Of Magnesia 30 Ml Oral.Susp) 30 ml PO DAILY PRN PRN Reason: Constipation Melatonin (Melatonin 3 Mg Tablet) 3 mg PO BEDTIME [facility] Last Admin: 12/01/21 20:44 Dose: 3 mg Documented by: Metoprolol Succinate (Metoprolol Succinate Er 12.5 Mg Halftab.Er.24h) 12.5 mg PO DAILY [facility]; Protocol Last Admin: 12/01/21 09:11 Dose: 12.5 mg Documented by: Mirtazapine (Mirtazapine 30 Mg Tablet) 30 mg PO BEDTIME [facility] Last Admin: 12/01/21 20:45 Dose: 30 mg Documented by: Pravastatin Sodium (Pravastatin Sodium 20 Mg Tablet) 20 mg PO DAILY [facility] Last Admin: 12/01/21 09:11 Dose: 20 mg Documented by: Risperidone (Risperidone 2 Mg Tablet) 2 mg PO BEDTIME [facility] Last Admin: 12/01/21 20:44 Dose: 2 mg Documented by: Trazodone HCl (Trazodone Hcl 50 Mg Tablet) 50 mg PO BEDTIME PRN PRN Reason: Insomnia Allergies Allergies Allergy/AdvReac Type Severity Reaction Status Date / Time adhesive AdvReac Unknown Verified 04/21/21 23:21 aspirin AdvReac Unknown Verified 04/21/21 23:20 epinephrine AdvReac Unknown Verified 04/21/21 23:21 Assessment & Plan Assessment & Plan (1) MDD (major depressive disorder), recurrent episode, moderate: Status: Acute Code(s): F33.1 - Major depressive disorder, recurrent, moderate Assessment and Plan: Presents with major depression without psychosis. Significant impact on ability to function. Stress around 's well-being and support. will discuss with primary team potential for starting ECT again. Noted hospitalist consult. No med changes for now 11/27/2021 will discuss with treatment team consider ECT question of recurrent depression question of addition of borderline pathology 11/28/21 Pt seen chart reviewed mood severely depressed has responded to ect but also has severe anxiety re being alone ekg rbbb Has c/o transient weakness confusion ? tia neuro consult head ct hold ect till neuro eval consider change risp to abilify 11/29/21 ect restart abilify 2 mg daily 11/30/2021 COVID positive patient on isolation hospitalist consult id. Monitor for exacerbation of symptoms so to 95% continue Abilify lower Prozac increase mirtazapine as tolerated. Hold off on ECT currently 12/01/2021 Patient seen in psychiatric follow-up patient isolation secondary to COVID has been tolerating this. No fever shortness of breath pulse oxygen remains stable. Increase Abilify to 4 mg daily ECT on hold continue to encourage coping strategies regarding managing her feelings about being isolated while at home feeling dependent on her who was in a rehab setting denies active self- harm Plan This is a?75yo F with COPD, HTN, hx TIA, hx hyperCA/hyperPTH s/p PTX, hx multiple colectomies with eventual reanastomosis for multiple precancerous poly ps, s/p PPM for arrhythmia, prediabetes, depression, and PTSD admitted to [facility] for SI ECT - patient has had ECT before with no previous adverse outcomes. benefits likely outweigh any risks given depression/SI. Obtain EKG prior to any planned ECT No medication reconciliation has been done at this point. COPD continue Breo, previously on spiriva but no med rec done prn albuterol HTN previously on metoprolol ? d/c due to starting clonidine follow blood pressure HLD/hx TIA - continue statin tobacco abuse - smokes 6 cig/d; declines NRT depression/PTSD - medications as per psychiatry team Thank you for allowing us to participate in the care of this patient. Attending - dr. briones I spent minutes with the patient and/or on the patient floor today, greater than?50% of which was spent counseling/coordinating care. Reason for contiued inpatient stay Substantial Risk for: harm to self, inability to function and rapid decompensation
[2021-12-02 02:00] VITALS: RESP 16
[2021-12-02 06:00] VITALS: BP 142/66; PULSE 58; RESP 16; TEMP 36.6; O2SAT 94
--- NOTE | 2021-12-02 08:16 | P.PNPSI_ITS ---
Subjective Subjective Date of Service: 12/02/21 Reason For Visit: depression and thoughts of Subjective Notes: Conditional Voluntary Interim History: The nursing staff reported the patient has been pleasant and cooperative. Her vital signs have been stable, afebrile with mild symptoms of COVID-19. On interview the patient denies new symptoms she feels okay, no side effects with increase of Abilify yesterday. She looked on good spirits. Medication Compliance: Yes Side effects from medications: No Review of Systems Acute medical concerns: Yes COVID-19 positive, with symptoms but stable Medical Review of Systems: changed Review of Systems: Upper respiratory symptoms Mental Status Exam Mental Status Exam Patient Appearance: Appropriate Patient Orientation: Person and Situation Level of Consciousness: Awake Patient Behavior: Cooperative Mood Description: Withdrawn Affect Description: Constricted Ability to Follow Directions: Good Speech Pattern: Clear Hallucinations: None Delusions: Not Present Thought Process: Linear Thought Content: positive for [place] and positive for Poverty of Content Judgement: Fair Diagnostics Vital Signs (24Hr): Vital Signs - 24 hr 12/01/21 09:00 12/01/21 13:00 12/01/21 18:04 Temperature 96.6 F L 97 F 97.2 F Pulse Rate 70 59 66 Respiratory Rate 18 18 18 Blood Pressure 130/61 149/67 H 148/68 H Pulse Oximetry 94 97 96 12/01/21 22:00 12/02/21 02:00 12/02/21 06:00 Temperature 97.4 F 97.8 F Pulse Rate 64 58 Respiratory Rate 16 16 16 Blood Pressure 156/70 H 142/66 H Pulse Oximetry 94 94 BMI result Body Mass Index 25.9 Labs Results: 11/25/21 06:52 11/25/21 06:52 Labs: Laboratory Results - last 48 hr 11/30/21 14:40 COVID-19 (LANE) Positive A COVID-19 Clin Com See Note Imaging Radiology Impressions: ITS Impressions Head CT 11/28/21 20:53 IMPRESSION: No acute intracranial process seen Carotid Doppler Study 11/29/21 11:47 IMPRESSION: 1. RIGHT: Minimal, non-hemodynamically significant stenosis of the proximal right internal carotid artery corresponding to a 0-49% stenosis by velocity criteria. 2. LEFT: Minimal, non-hemodynamically significant stenosis of the proximal left internal carotid artery corresponding to a 0-49% stenosis by velocity criteria. Medications Medications Current Medications Acetaminophen (Acetaminophen 325 Mg Tablet) 650 mg PO Q6H PRN PRN Reason: Headache/Pain Mild Scale (1-3) Last Admin: 11/29/21 23:01 Dose: 650 mg Documented by: Al Hydroxide/Mg Hydroxide (Magnesium Hydrox/Alum Hydrox 30 Ml Oral.Susp) 30 ml PO Q6H PRN PRN Reason: Heartburn/Nausea Albuterol Sulfate (Albuterol Sulfate (0.083%) 2.5 Mg/3 Ml Vial.Neb) 2.5 mg INHALE Q6H PRN PRN Reason: Shortness of Breath/Wheezing Albuterol Sulfate (Albuterol Sulfate 90 Mcg 8 Gm Inhaler) 2 puff INHALE RQ4H PRN PRN Reason: shortness of breath or wheezin Last Admin: 12/01/21 09:11 Dose: 2 puff Documented by: Aripiprazole (Aripiprazole 2 Mg Tablet) 4 mg PO DAILY [facility] Clonidine HCl (Clonidine Hcl 0.1 Mg Tablet) 0.1 mg PO BID [facility]; Protocol Last Admin: 12/01/21 20:44 Dose: 0.1 mg Documented by: Fluoxetine HCl (Fluoxetine Hcl Oral Solution 20 Mg/5 Ml Solution) 40 mg PO DAILY [facility] Last Admin: 12/01/21 09:10 Dose: 40 mg Documented by: Fluticasone/Vilanterol (Fluticasone/Vilanterol 100/25 Blst.W.Dev) 1 puff INHALE RDAILY [facility] Last Admin: 12/01/21 09:13 Dose: 1 puff Documented by: Guaifenesin (Guaifenesin 100 Mg/5 Ml Liquid) 5 ml PO Q4H PRN PRN Reason: Cough Hydroxyzine HCl (Hydroxyzine Hcl 25 Mg Tablet) 25 mg PO BEDTIME PRN PRN Reason: Anxiety Loperamide HCl (Loperamide Hcl 2 Mg Capsule) 2 mg PO Q6H PRN PRN Reason: diarrhea Magnesium Hydroxide (Milk Of Magnesia 30 Ml Oral.Susp) 30 ml PO DAILY PRN PRN Reason: Constipation Melatonin (Melatonin 3 Mg Tablet) 3 mg PO BEDTIME [facility] Last Admin: 12/01/21 20:44 Dose: 3 mg Documented by: Metoprolol Succinate (Metoprolol Succinate Er 12.5 Mg Halftab.Er.24h) 12.5 mg PO DAILY [facility]; Protocol Last Admin: 12/01/21 09:11 Dose: 12.5 mg Documented by: Mirtazapine (Mirtazapine 30 Mg Tablet) 30 mg PO BEDTIME [facility] Last Admin: 12/01/21 20:45 Dose: 30 mg Documented by: Pravastatin Sodium (Pravastatin Sodium 20 Mg Tablet) 20 mg PO DAILY [facility] Last Admin: 12/01/21 09:11 Dose: 20 mg Documented by: Risperidone (Risperidone 2 Mg Tablet) 2 mg PO BEDTIME [facility] Last Admin: 12/01/21 20:44 Dose: 2 mg Documented by: Trazodone HCl (Trazodone Hcl 50 Mg Tablet) 50 mg PO BEDTIME PRN PRN Reason: Insomnia Allergies Allergies Allergy/AdvReac Type Severity Reaction Status Date / Time adhesive AdvReac Unknown Verified 04/21/21 23:21 aspirin AdvReac Unknown Verified 04/21/21 23:20 epinephrine AdvReac Unknown Verified 04/21/21 23:21 Assessment & Plan Assessment & Plan (1) MDD (major depressive disorder), recurrent episode, moderate: Status: Acute Code(s): F33.1 - Major depressive disorder, recurrent, moderate Assessment and Plan: Presents with major depression without psychosis. Significant impact on ability to function. Stress around 's well-being and support. will discuss with primary team potential for starting ECT again. Noted hospitalist consult. No med changes for now 11/27/2021 will discuss with treatment team consider ECT question of recurrent depression question of addition of borderline pathology 11/28/21 Pt seen chart reviewed mood severely depressed has responded to ect but also has severe anxiety re being alone ekg rbbb Has c/o transient weakness confusion ? tia neuro consult head ct hold ect till neuro eval consider change risp to abilify 11/29/21 ect restart abilify 2 mg daily 11/30/2021 COVID positive patient on isolation hospitalist consult id. Monitor for exacerbation of symptoms so to 95% continue Abilify lower Prozac increase mirtazapine as tolerated. Hold off on ECT currently 12/01/2021 Patient seen in psychiatric follow-up patient isolation secondary to COVID has been tolerating this. No fever shortness of breath pulse oxygen remains stable. Increase Abilify to 4 mg daily ECT on hold continue to encourage coping strategies regarding managing her feelings about being isolated while at home feeling dependent on her who was in a rehab setting denies active self- harm Plan This is a?75yo F with COPD, HTN, hx TIA, hx hyperCA/hyperPTH s/p PTX, hx multiple colectomies with eventual reanastomosis for multiple precancerous polyps, s/p PPM for arrhythmia, prediabetes, depression, and PTSD admitted to [facility] for SI ECT - patient has had ECT before with no previous adverse outcomes. benefits likely outweigh any risks given depression/SI. Obtain EKG prior to any planned ECT No medication reconciliation has been done at this point. COPD continue Breo, previously on spiriva but no med rec done prn albuterol HTN previously on metoprolol ? d/c due to starting clonidine follow blood pressure HLD/hx TIA - continue statin tobacco abuse - smokes 6 cig/d; declines NRT depression/PTSD - medications as per psychiatry team Plan: 1. Keep same treatment. 2. ECT on hold until she clears of COVID-19. I spent ___20___ minutes with the patient and/or on the patient floor today, greater than?50% of which was spent counseling/coordinating care. Reason for contiued inpatient stay Substantial Risk for: inability to function, rapid decompensation and med/psych decompensation
[2021-12-02] MEDS: Albuterol Sulfate 90 MCG 8 GM INHALER 2 PUFF INHALE (09:05)
[2021-12-02] MEDS: Fluticasone/Vilanterol 100/25 BLST.W.DEV 1 PUFF INHALE (09:05)
[2021-12-02] MEDS: cloNIDine HCL 0.1 MG TABLET PO ×2 (09:06→21:19)
[2021-12-02] MEDS: ARIPiprazole 2 MG TABLET 4 MG PO (09:06)
[2021-12-02] MEDS: FLUoxetine HCl Oral Solution 20 MG/5 ML SOLUTION 40 MG PO (09:06)
[2021-12-02] MEDS: Pravastatin Sodium 20 MG TABLET PO (09:06)
[2021-12-02] MEDS: Metoprolol Succinate ER 12.5 MG HALFTAB.ER.24H PO (09:06)
[2021-12-02 10:00] VITALS: BP 146/67; PULSE 60; RESP 16; TEMP 36.1; O2SAT 95
[2021-12-02 14:00] VITALS: BP 160/74; PULSE 54; RESP 18; TEMP 35.5; O2SAT 93
[2021-12-02 18:00] VITALS: BP 147/78; PULSE 56; RESP 16; TEMP 36.1; O2SAT 95
[2021-12-02] MEDS: hydrOXYzine HCL 25 MG TABLET PO (21:19)
[2021-12-02] MEDS: risperiDONE 2 MG TABLET PO (21:19)
[2021-12-02] MEDS: Melatonin 3 MG TABLET PO (21:20)
[2021-12-02] MEDS: Mirtazapine 30 MG TABLET PO (21:20)
[2021-12-02] MEDS: guaiFENesin 100 MG/5 ML LIQUID PO (21:26)
[2021-12-02 22:00] VITALS: RESP 16
[2021-12-03 02:00] VITALS: RESP 14
[2021-12-03] MEDS: Acetaminophen 325 MG TABLET 650 MG PO (02:55)
[2021-12-03 09:15] VITALS: BP 140/67; PULSE 60; RESP 18; TEMP 35.9; O2SAT 95
[2021-12-03] MEDS: FLUoxetine HCl Oral Solution 20 MG/5 ML SOLUTION 40 MG PO (09:16)
[2021-12-03] MEDS: Albuterol Sulfate 90 MCG 8 GM INHALER 2 PUFF INHALE (09:16)
[2021-12-03] MEDS: Metoprolol Succinate ER 12.5 MG HALFTAB.ER.24H PO (09:16)
[2021-12-03] MEDS: Fluticasone/Vilanterol 100/25 BLST.W.DEV 1 PUFF INHALE (09:16)
[2021-12-03] MEDS: guaiFENesin 100 MG/5 ML LIQUID PO ×3 (09:17→16:37)
[2021-12-03] MEDS: Pravastatin Sodium 20 MG TABLET PO (09:17)
[2021-12-03] MEDS: ARIPiprazole 2 MG TABLET 4 MG PO (09:17)
[2021-12-03] MEDS: cloNIDine HCL 0.1 MG TABLET PO ×2 (09:17→20:35)
--- NOTE | 2021-12-03 09:56 | HO.PSYCHPN ---
Subjective Subjective Date of Service: 12/03/21 Reason For Visit: depression and thoughts of Subjective Notes: Conditional Voluntary Interim History: The nursing staff reported the patient starts feeling better, she still have upper respiratory symptoms. She slept well last night her vital signs and saturations are okay. On interview the patient reports that she is feeling fine, she stated that she is worried about her and her other duties when she is in the community. Mental Status Exam Mental Status Exam Patient Appearance: Well Grooomed Patient Orientation: Person and Situation Level of Consciousness: Awake Patient Behavior: Guarded Mood Description: Constricted Affect Description: Calm Ability to Follow Directions: Good Speech Pattern: Clear Hallucinations: None Delusions: Not Present Thought Process: Distracted and Linear Thought Content: positive for Goal Oriented Judgement: Fair Diagnostics Vital Signs (24Hr): Vital Signs - 24 hr 12/02/21 10:00 12/02/21 14:00 12/02/21 18:00 Temperature 97 F 96 F L 97 F Pulse Rate 60 54 56 Respiratory Rate 16 18 16 Blood Pressure 146/67 H 160/74 H 147/78 H Pulse Oximetry 95 93 95 12/02/21 22:00 12/03/21 02:00 Temperature Pulse Rate Respiratory Rate 16 14 Blood Pressure Pulse Oximetry BMI result Body Mass Index 25.9 Labs Results: 11/25/21 06:52 11/25/21 06:52 Imaging Radiology Impressions: ITS Impressions Head CT 11/28/21 20:53 IMPRESSION: No acute intracranial process seen Carotid Doppler Study 11/29/21 11:47 IMPRESSION: 1. RIGHT: Minimal, non-hemodynamically significant stenosis of the proximal right internal carotid artery corresponding to a 0-49% stenosis by velocity criteria. 2. LEFT: Minimal, non-hemodynamically significant stenosis of the proximal left internal carotid artery corresponding to a 0-49% stenosis by velocity criteria. Medications Medications Current Medications Acetaminophen (Acetaminophen 325 Mg Tablet) 650 mg PO Q6H PRN PRN Reason: Headache/Pain Mild Scale (1-3) Last Admin: 12/03/21 02:55 Dose: 650 mg Documented by: Al Hydroxide/Mg Hydroxide (Magnesium Hydrox/Alum Hydrox 30 Ml Oral.Susp) 30 ml PO Q6H PRN PRN Reason: Heartburn/Nausea Albuterol Sulfate (Albuterol Sulfate 90 Mcg 8 Gm Inhaler) 2 puff INHALE RQ4H PRN PRN Reason: shortness of breath or wheezin Last Admin: 12/02/21 09:05 Dose: 2 puff Documented by: Aripiprazole (Aripiprazole 2 Mg Tablet) 4 mg PO DAILY [facility] Last Admin: 12/02/21 09:06 Dose: 4 mg Documented by: Clonidine HCl (Clonidine Hcl 0.1 Mg Tablet) 0.1 mg PO BID [facility]; Protocol Last Admin: 12/02/21 21:19 Dose: 0.1 mg Documented by: Fluoxetine HCl (Fluoxetine Hcl Oral Solution 20 Mg/5 Ml Solution) 40 mg PO DAILY [facility] Last Admin: 12/02/21 09:06 Dose: 40 mg Documented by: Fluticasone/Vilanterol (Fluticasone/Vilanterol 100/25 Blst.W.Dev) 1 puff INHALE RDAILY [facility] Last Admin: 12/02/21 09:05 Dose: 1 puff Documented by: Guaifenesin (Guaifenesin 100 Mg/5 Ml Liquid) 5 ml PO Q4H PRN PRN Reason: Cough Last Admin: 12/02/21 21:26 Dose: 5 ml Documented by: Hydroxyzine HCl (Hydroxyzine Hcl 25 Mg Tablet) 25 mg PO BEDTIME PRN PRN Reason: Anxiety Last Admin: 12/02/21 21:19 Dose: 25 mg Documented by: Loperamide HCl (Loperamide Hcl 2 Mg Capsule) 2 mg PO Q6H PRN PRN Reason: diarrhea Magnesium Hydroxide (Milk Of Magnesia 30 Ml Oral.Susp) 30 ml PO DAILY PRN PRN Reason: Constipation Melatonin (Melatonin 3 Mg Tablet) 3 mg PO BEDTIME [facility] Last Admin: 12/02/21 21:20 Dose: 3 mg Documented by: Metoprolol Succinate (Metoprolol Succinate Er 12.5 Mg Halftab.Er.24h) 12.5 mg PO DAILY [facility]; Protocol Last Admin: 12/02/21 09:06 Dose: 12.5 mg Documented by: Mirtazapine (Mirtazapine 30 Mg Tablet) 30 mg PO BEDTIME [facility] Last Admin: 12/02/21 21:20 Dose: 30 mg Documented by: Pravastatin Sodium (Pravastatin Sodium 20 Mg Tablet) 20 mg PO DAILY [facility] Last Admin: 12/02/21 09:06 Dose: 20 mg Documented by: Risperidone (Risperidone 2 Mg Tablet) 2 mg PO BEDTIME [facility] Last Admin: 12/02/21 21:19 Dose: 2 mg Documented by: Trazodone HCl (Trazodone Hcl 50 Mg Tablet) 50 mg PO BEDTIME PRN PRN Reason: Insomnia Allergies Allergies Allergy/AdvReac Type Severity Reaction Status Date / Time adhesive AdvReac Unknown Verified 04/21/21 23:21 aspirin AdvReac Unknown Verified 04/21/21 23:20 epinephrine AdvReac Unknown Verified 04/21/21 23:21 Assessment & Plan Assessment & Plan (1) MDD (major depressive disorder), recurrent episode, moderate: Status: Acute Code(s): F33.1 - Major depressive disorder, recurrent, moderate Assessment and Plan: Presents with major depression without psychosis. Significant impact on ability to function. Stress around 's well-being and support. will discuss with primary team potential for starting ECT again. Noted hospitalist consult. No med changes for now 11/27/2021 will discuss with treatment team consider ECT question of recurrent depression question of addition of borderline pathology 11/28/21 Pt seen chart reviewed mood severely depressed has responded to ect but also has severe anxiety re being alone ekg rbbb Has c/o transient weakness confusion ? tia neuro consult head ct hold ect till neuro eval consider change risp to abilify 11/29/21 ect restart abilify 2 mg daily 11/30/2021 COVID positive patient on isolation hospitalist consult id. Monitor for exacerbation of symptoms so to 95% continue Abilify lower Prozac increase mirtazapine as tolerated. Hold off on ECT currently 12/01/2021 Patient seen in psychiatric follow-up patient isolation secondary to COVID has been tolerating this. No fever shortness of breath pulse oxygen remains stable. Increase Abilify to 4 mg daily ECT on hold continue to encourage coping strategies regarding managing her feelings about being isolated while at home feeling dependent on her who was in a rehab setting denies active self-harm Plan This is a?75yo F with COPD, HTN, hx TIA, hx hyperCA/hyperPTH s/p PTX, hx multiple colectomies with eventual reanastomosis for multiple precancerous polyps, s/p PPM for arrhythmia, prediabetes, depression, and PTSD admitted to [facility] for SI ECT - patient has had ECT before with no previous adverse outcomes. benefits likely outweigh any risks given depression/SI. Obtain EKG prior to any planned ECT No medication reconciliation has been done at this point. COPD continue Breo, previously on spiriva but no med rec done prn albuterol HTN previously on metoprolol ? d/c due to starting clonidine follow blood pressure HLD/hx TIA - continue statin tobacco abuse - smokes 6 cig/d; declines NRT depression/PTSD - medications as per psychiatry team Plan: 1. Keep same treatment. 2. ECT on hold until she clears of COVID-19. I spent __20____ minutes with the patient and/or on the patient floor today, greater than?50% of which was spent counseling/coordinating care. Reason for contiued inpatient stay Substantial Risk for: inability to function, rapid decompensation and med/psych decompensation
[2021-12-03] MEDS: hydrOXYzine HCL 25 MG TABLET PO ×2 (12:48→20:35)
[2021-12-03 15:00] VITALS: BP 148/74; PULSE 55; RESP 16; TEMP 36.5; O2SAT 95
[2021-12-03 19:00] VITALS: BP 130/77; PULSE 60; RESP 16; TEMP 36.1; O2SAT 95
[2021-12-03] MEDS: Melatonin 3 MG TABLET PO (20:34)
[2021-12-03] MEDS: Mirtazapine 30 MG TABLET PO (20:34)
[2021-12-03] MEDS: risperiDONE 2 MG TABLET PO (20:35)
--- NOTE | 2021-12-04 08:11 | HO.PSYCHPN ---
Subjective Subjective Date of Service: 12/04/21 Reason For Visit: depression and thoughts of Subjective Notes: Conditional Voluntary Interim History: The nursing staff reported the patient has been pleasant and cooperative, she denies suicidal ideation, she reports that her mood is better. It was seen by the staff that she has very mild productive cough, her vital signs are stable her saturation is over 98%. On interview the patient complains of mild dysphoria but she feels better since Abilify was increased. She stated that yesterday that she spoke with her over the phone and he is doing much better. She feels happy that he is doing better. Review of Systems Medical Review of Systems: unchanged Mental Status Exam Mental Status Exam Patient Appearance: Well Grooomed Patient Orientation: Person and Situation Level of Consciousness: Awake Patient Behavior: Cooperative Mood Description: Appropriate Affect Description: Constricted Patient Cognition Impaired: No Ability to Follow Directions: Good Speech Pattern: Clear Hallucinations: None Delusions: Not Present Thought Process: Distracted Thought Content: positive for [place] and positive for Circumstantial Judgement: Fair Diagnostics Vital Signs (24Hr): Vital Signs - 24 hr 12/03/21 09:15 12/03/21 15:00 12/03/21 19:00 Temperature 96.6 F L 97.7 F 96.9 F Pulse Rate 60 55 60 Respiratory Rate 18 16 16 Blood Pressure 140/67 H 148/74 H 130/77 Pulse Oximetry 95 95 95 BMI result Body Mass Index 25.9 Labs Results: 11/25/21 06:52 11/25/21 06:52 Imaging Radiology Impressions: ITS Impressions Head CT 11/28/21 20:53 IMPRESSION: No acute intracranial process seen Carotid Doppler Study 11/29/21 11:47 IMPRESSION: 1. RIGHT: Minimal, non-hemodynamically significant stenosis of the proximal right internal carotid artery corresponding to a 0-49% stenosis by velocity criteria. 2. LEFT: Minimal, non-hemodynamically significant stenosis of the proximal left internal carotid artery corresponding to a 0-49% stenosis by velocity criteria. Medications Medications Current Medications Acetaminophen (Acetaminophen 325 Mg Tablet) 650 mg PO Q6H PRN PRN Reason: Headache/Pain Mild Scale (1-3) Last Admin: 12/03/21 02:55 Dose: 650 mg Documented by: Al Hydroxide/Mg Hydroxide (Magnesium Hydrox/Alum Hydrox 30 Ml Oral.Susp) 30 ml PO Q6H PRN PRN Reason: Heartburn/Nausea Albuterol Sulfate (Albuterol Sulfate 90 Mcg 8 Gm Inhaler) 2 puff INHALE RQ4H PRN PRN Reason: shortness of breath or wheezin Last Admin: 12/03/21 09:16 Dose: 2 puff Documented by: Aripiprazole (Aripiprazole 2 Mg Tablet) 4 mg PO DAILY [facility] Last Admin: 12/03/21 09:17 Dose: 4 mg Documented by: Clonidine HCl (Clonidine Hcl 0.1 Mg Tablet) 0.1 mg PO BID [facility]; Protocol Last Admin: 12/03/21 20:35 Dose: 0.1 mg Documented by: Fluoxetine HCl (Fluoxetine Hcl 20 Mg Capsule) 40 mg PO DAILY [facility] Fluticasone/Vilanterol (Fluticasone/Vilanterol 100/25 Blst.W.Dev) 1 puff INHALE RDAILY [facility] Last Admin: 12/03/21 09:16 Dose: 1 puff Documented by: Guaifenesin (Guaifenesin 100 Mg/5 Ml Liquid) 5 ml PO Q4H PRN PRN Reason: Cough Last Admin: 12/03/21 16:37 Dose: 5 ml Documented by: Hydroxyzine HCl (Hydroxyzine Hcl 25 Mg Tablet) 25 mg PO BEDTIME PRN PRN Reason: Anxiety Last Admin: 12/03/21 20:35 Dose: 25 mg Documented by: Loperamide HCl (Loperamide Hcl 2 Mg Capsule) 2 mg PO Q6H PRN PRN Reason: diarrhea Magnesium Hydroxide (Milk Of Magnesia 30 Ml Oral.Susp) 30 ml PO DAILY PRN PRN Reason: Constipation Melatonin (Melatonin 3 Mg Tablet) 3 mg PO BEDTIME [facility] Last Admin: 12/03/21 20:34 Dose: 3 mg Documented by: Metoprolol Succinate (Metoprolol Succinate Er 12.5 Mg Halftab.Er.24h) 12.5 mg PO DAILY [facility]; Protocol Last Admin: 12/03/21 09:16 Dose: 12.5 mg Documented by: Mirtazapine (Mirtazapine 30 Mg Tablet) 30 mg PO BEDTIME [facility] Last Admin: 12/03/21 20:34 Dose: 30 mg Documented by: Pravastatin Sodium (Pravastatin Sodium 20 Mg Tablet) 20 mg PO DAILY [facility] Last Admin: 12/03/21 09:17 Dose: 20 mg Documented by: Risperidone (Risperidone 2 Mg Tablet) 2 mg PO BEDTIME [facility] Last Admin: 12/03/21 20:35 Dose: 2 mg Documented by: Trazodone HCl (Trazodone Hcl 50 Mg Tablet) 50 mg PO BEDTIME PRN PRN Reason: Insomnia Allergies Allergies Allergy/AdvReac Type Severity Reaction Status Date / Time adhesive AdvReac Unknown Verified 04/21/21 23:21 aspirin AdvReac Unknown Verified 04/21/21 23:20 epinephrine AdvReac Unknown Verified 04/21/21 23:21 Assessment & Plan Assessment & Plan (1) MDD (major depressive disorder), recurrent episode, moderate: Status: Acute Code(s): F33.1 - Major depressive disorder, recurrent, moderate Assessment and Plan: Presents with major depression without psychosis. Significant impact on ability to function. Stress around 's well-being and support. will discuss with primary team potential for starting ECT again. Noted hospitalist consult. No med changes for now 11/27/2021 will discuss with treatment team consider ECT question of recurrent depression question of addition of borderline pathology 11/28/21 Pt seen chart reviewed mood severely depressed has responded to ect but also has severe anxiety re being alone ekg rbbb Has c/o transient weakness confusion ? tia neuro consult head ct hold ect till neuro eval consider change risp to abilify 11/29/21 ect restart abilify 2 mg daily 11/30/2021 COVID positive patient on isolation hospitalist consult id. Monitor for exacerbation of symptoms so to 95% continue Abilify lower Prozac increase mirtazapine as tolerated. Hold off on ECT currently 12/01/2021 Patient seen in psychiatric follow-up patient isolation secondary to COVID has been tolerating this. No fever shortness of breath pulse oxygen remains stable. Increase Abilify to 4 mg daily ECT on hold continue to encourage coping strategies regarding managing her feelings about being isolated while at home feeling dependent on her who was in a rehab setting denies active self-harm Over the weekned of 12/01 - 12/04, she remained in good spirits, the increase of Abilify helped her. Physically, she is healing of COVID-19 infection without any problems. Plan This is a?75yo F with COPD, HTN, hx TIA, hx hyperCA/hyperPTH s/p PTX, hx multiple colectomies with eventual reanastomosis for multiple precancerous polyps, s/p PPM for arrhythmia, prediabetes, depression, and PTSD admitted to [facility] for [facility] ECT - patient has had ECT before with no previous adverse outcomes. benefits likely outweigh any risks given depression/SI. Obtain EKG prior to any planned ECT No medication reconciliation has been done at this point. COPD continue Breo, previously on spiriva but no med rec done prn albuterol HTN previously on metoprolol ? d/c due to starting clonidine follow blood pressure HLD/hx TIA - continue statin tobacco abuse - smokes 6 cig/d; declines NRT depression/PTSD - medications as per psychiatry team Plan: 1. Keep same treatment. 2. ECT on hold until she clears of COVID-19. I spent ___20___ minutes with the patient and/or on the patient floor today, greater than?50% of which was spent counseling/coordinating care. Reason for contiued inpatient stay Substantial Risk for: inability to function, rapid decompensation and med/psych decompensation
[2021-12-04] MEDS: Fluticasone/Vilanterol 100/25 BLST.W.DEV 1 PUFF INHALE (09:25)
[2021-12-04] MEDS: FLUoxetine HCl 20 MG CAPSULE 40 MG PO (09:25)
[2021-12-04] MEDS: ARIPiprazole 2 MG TABLET 4 MG PO (09:25)
[2021-12-04] MEDS: Metoprolol Succinate ER 12.5 MG HALFTAB.ER.24H PO (09:25)
[2021-12-04] MEDS: cloNIDine HCL 0.1 MG TABLET PO ×2 (09:26→21:09)
[2021-12-04 09:45] VITALS: BP 139/69; PULSE 67; RESP 16; TEMP 36.6; O2SAT 95
[2021-12-04] MEDS: Pravastatin Sodium 20 MG TABLET PO (10:29)
[2021-12-04] MEDS: hydrOXYzine HCL 25 MG TABLET PO (11:36)
[2021-12-04 14:44] VITALS: BP 141/67; PULSE 61; RESP 16; TEMP 36.8; O2SAT 96
[2021-12-04 18:00] VITALS: BP 141/64; PULSE 52; RESP 18; TEMP 36.2; O2SAT 96
[2021-12-04] MEDS: Mirtazapine 30 MG TABLET PO (21:09)
[2021-12-04] MEDS: Melatonin 3 MG TABLET PO (21:09)
[2021-12-04] MEDS: risperiDONE 2 MG TABLET PO (21:10)
[2021-12-04 21:52] VITALS: BP 141/64; PULSE 52; RESP 18; TEMP 36.2; O2SAT 96
[2021-12-05 07:50] VITALS: BP 114/57; PULSE 65; RESP 16; O2SAT 95
[2021-12-05] MEDS: ARIPiprazole 2 MG TABLET 4 MG PO (08:45)
[2021-12-05] MEDS: cloNIDine HCL 0.1 MG TABLET PO ×2 (08:45→20:02)
[2021-12-05] MEDS: Metoprolol Succinate ER 12.5 MG HALFTAB.ER.24H PO (08:45)
[2021-12-05] MEDS: Pravastatin Sodium 20 MG TABLET PO (08:46)
[2021-12-05] MEDS: FLUoxetine HCl 20 MG CAPSULE 40 MG PO (08:46)
[2021-12-05 11:00] VITALS: BP 146/63; PULSE 55; RESP 18; TEMP 36.6; O2SAT 93
[2021-12-05 15:00] VITALS: BP 143/86; PULSE 67; RESP 18; TEMP 36.4; O2SAT 97
--- NOTE | 2021-12-05 17:03 | P.PNPSI_ITS ---
Subjective Subjective Date of Service: 12/05/21 Reason For Visit: depression and thoughts of Subjective Notes: Conditional Voluntary Guardianship: No Interim History: pt anxious dysphoric but improving some nausea with abilify on isolation with covid Medication Compliance: Yes Side effects from medications: No Attending Groups: No (isolation) Mental Status Exam Mental Status Exam Patient Appearance: Well Grooomed Patient Orientation: Person and Situation Level of Consciousness: Awake Patient Behavior: Cooperative Mood Description: Appropriate Affect Description: Constricted Patient Cognition Impaired: No Ability to Follow Directions: Good Speech Pattern: Clear Hallucinations: None Delusions: Not Present Thought Process: Distracted Thought Content: positive for [place], positive for Circumstantial and positive for [place] Depressive Symptoms: Increased Anxiety and Hopelessness (improved) Judgement: Fair Diagnostics Vital Signs (24Hr): Vital Signs - 24 hr 12/04/21 18:00 12/04/21 21:52 12/05/21 07:50 Temperature 97.1 F 97.1 F Pulse Rate 52 52 65 Respiratory Rate 18 18 16 Blood Pressure 141/64 H 141/64 H 114/57 L Pulse Oximetry 96 96 95 12/05/21 11:00 12/05/21 15:00 Temperature 97.9 F 97.5 F Pulse Rate 55 67 Respiratory Rate 18 18 Blood Pressure 146/63 H 143/86 H Pulse Oximetry 93 97 BMI result Body Mass Index 25.9 Labs Results: 11/25/21 06:52 11/25/21 06:52 Imaging Radiology Impressions: ITS Impressions Head CT 11/28/21 20:53 IMPRESSION: No acute intracranial process seen Carotid Doppler Study 11/29/21 11:47 IMPRESSION: 1. RIGHT: Minimal, non-hemodynamically significant stenosis of the proximal right internal carotid artery corresponding to a 0-49% stenosis by velocity criteria. 2. LEFT: Minimal, non-hemodynamically significant stenosis of the proximal left internal carotid artery corresponding to a 0-49% stenosis by velocity criteria. Medications Medications Current Medications Acetaminophen (Acetaminophen 325 Mg Tablet) 650 mg PO Q6H PRN PRN Reason: Headache/Pain Mild Scale (1-3) Last Admin: 12/03/21 02:55 Dose: 650 mg Documented by: Al Hydroxide/Mg Hydroxide (Magnesium Hydrox/Alum Hydrox 30 Ml Oral.Susp) 30 ml PO Q6H PRN PRN Reason: Heartburn/Nausea Albuterol Sulfate (Albuterol Sulfate 90 Mcg 8 Gm Inhaler) 2 puff INHALE RQ4H PRN PRN Reason: shortness of breath or wheezin Last Admin: 12/03/21 09:16 Dose: 2 puff Documented by: Aripiprazole (Aripiprazole 5 Mg Tablet) 5 mg PO DAILY [facility] Clonidine HCl (Clonidine Hcl 0.1 Mg Tablet) 0.1 mg PO BID [facility]; Protocol Last Admin: 12/05/21 08:45 Dose: 0.1 mg Documented by: Fluoxetine HCl (Fluoxetine Hcl 20 Mg Capsule) 20 mg PO DAILY [facility] Fluticasone/Vilanterol (Fluticasone/Vilanterol 100/25 Blst.W.Dev) 1 puff INHALE RDAILY [facility] Last Admin: 12/05/21 10:51 Dose: Not Given Documented by: Guaifenesin (Guaifenesin 100 Mg/5 Ml Liquid) 5 ml PO Q4H PRN PRN Reason: Cough Last Admin: 12/03/21 16:37 Dose: 5 ml Documented by: Hydroxyzine HCl (Hydroxyzine Hcl 25 Mg Tablet) 25 mg PO BEDTIME PRN PRN Reason: Anxiety Last Admin: 12/03/21 20:35 Dose: 25 mg Documented by: Hydroxyzine HCl (Hydroxyzine Hcl 25 Mg Tablet) 25 mg PO TID PRN PRN Reason: Anxiety Last Admin: 12/04/21 11:36 Dose: 25 mg Documented by: Loperamide HCl (Loperamide Hcl 2 Mg Capsule) 2 mg PO Q6H PRN PRN Reason: diarrhea Magnesium Hydroxide (Milk Of Magnesia 30 Ml Oral.Susp) 30 ml PO DAILY PRN PRN Reason: Constipation Melatonin (Melatonin 3 Mg Tablet) 3 mg PO BEDTIME [facility] Last Admin: 12/04/21 21:09 Dose: 3 mg Documented by: Metoprolol Succinate (Metoprolol Succinate Er 12.5 Mg Halftab.Er.24h) 12.5 mg PO DAILY [facility]; Protocol Last Admin: 12/05/21 08:45 Dose: 12.5 mg Documented by: Mirtazapine (Mirtazapine 30 Mg Tablet) 30 mg PO BEDTIME [facility] Last Admin: 12/04/21 21:09 Dose: 30 mg Documented by: Pravastatin Sodium (Pravastatin Sodium 20 Mg Tablet) 20 mg PO DAILY [facility] Last Admin: 12/05/21 08:46 Dose: 20 mg Documented by: Risperidone (Risperidone 1 Mg Tablet) 1 mg PO BEDTIME [facility] Trazodone HCl (Trazodone Hcl 50 Mg Tablet) 50 mg PO BEDTIME PRN PRN Reason: Insomnia Allergies Allergies Allergy/AdvReac Type Severity Reaction Status Date / Time adhesive AdvReac Unknown Verified 04/21/21 23:21 aspirin AdvReac Unknown Verified 04/21/21 23:20 epinephrine AdvReac Unknown Verified 04/21/21 23:21 Assessment & Plan Assessment & Plan (1) MDD (major depressive disorder), recurrent episode, moderate: Status: Acute Code(s): F33.1 - Major depressive disorder, recurrent, moderate Assessment and Plan: Presents with major depression without psychosis. Significant impact on ability to function. Stress around 's well-being and support. will discuss with primary team potential for starting ECT again. Noted hospitalist consult. No med changes for now 11/27/2021 will discuss with treatment team consider ECT question of recurrent depression question of addition of borderline pathology 11/28/21 Pt seen chart reviewed mood severely depressed has responded to ect but also has severe anxiety re being alone ekg rbbb Has c/o transient weakness confusion ? tia neuro consult head ct hold ect till neuro eval consider change risp to abilify 11/29/21 ect restart abilify 2 mg daily 11/30/2021 COVID positive patient on isolation hospitalist consult id. Monitor for exacerbation of symptoms so to 95% continue Abilify lower Prozac increase mirtazapine as tolerated. Hold off on ECT currently 12/01/2021 Patient seen in psychiatric follow-up patient isolation secondary to COVID has been tolerating this. No fever shortness of breath pulse oxygen remains stable. Increase Abilify to 4 mg daily ECT on hold continue to encourage coping strategies regarding managing her feelings about being isolated while at home feeling dependent on her who was in a rehab setting denies active self- harm 12/05/21 Pt without serious med consequences to covid pulse ox ok doing better with abilify taper risperadol hold off ect for now coping skills for isolation fears Plan This is a?75yo F with COPD, HTN, hx TIA, hx hyperCA/hyperPTH s/p PTX, hx multiple colectomies with eventual reanastomosis for multiple precancerous polyps, s/p PPM for arrhythmia, prediabetes, depression, and PTSD admitted to [facility] for SI ECT - patient has had ECT before with no previous adverse outcomes. benefits likely outweigh any risks given depression/SI. Obtain EKG prior to any planned ECT No medication reconciliation has been done at this point. COPD continue Breo, previously on spiriva but no med rec done prn albuterol HTN previously on metoprolol ? d/c due to starting clonidine follow blood pressure HLD/hx TIA - continue statin tobacco abuse - smokes 6 cig/d; declines NRT depression/PTSD - medications as per psychiatry team Thank you for allowing us to participate in the care of this patient. Attending - dr. briones I spent minutes with the patient and/or on the patient floor today, greater than?50% of which was spent counseling/coordinating care. Reason for contiued inpatient stay Substantial Risk for: harm to self and rapid decompensation
[2021-12-05 20:01] VITALS: BP 140/66; PULSE 59; RESP 16; TEMP 36.8; O2SAT 92
[2021-12-05] MEDS: Melatonin 3 MG TABLET PO (20:02)
[2021-12-05] MEDS: Mirtazapine 30 MG TABLET PO (20:03)
[2021-12-05] MEDS: risperiDONE 1 MG TABLET PO (20:03)
[2021-12-05] MEDS: hydrOXYzine HCL 25 MG TABLET PO (21:17)
[2021-12-06] MEDS: traZODone HCL 50 MG TABLET PO (03:50)
[2021-12-06 04:00] VITALS: O2SAT 93
[2021-12-06 08:00] VITALS: BP 116/89; PULSE 73; RESP 16; TEMP 36.7; O2SAT 95
[2021-12-06] MEDS: Pravastatin Sodium 20 MG TABLET PO (09:45)
[2021-12-06] MEDS: cloNIDine HCL 0.1 MG TABLET PO ×2 (09:45→20:03)
[2021-12-06] MEDS: ARIPiprazole 5 MG TABLET PO (09:45)
[2021-12-06] MEDS: FLUoxetine HCl 20 MG CAPSULE PO (09:45)
[2021-12-06] MEDS: Metoprolol Succinate ER 12.5 MG HALFTAB.ER.24H PO (09:45)
[2021-12-06] MEDS: Fluticasone/Vilanterol 100/25 BLST.W.DEV 1 PUFF INHALE (09:49)
--- NOTE | 2021-12-06 14:22 | MHC.SHP ---
Pre-Procedural Eval Section A Date of Service: 12/06/21 The patient is an INPATIENT: Yes Changes since office visit: Yes Cold of Flu in the past 2 weeks The History & Physical has been completed within 30 days and I have reviewed it.: Yes Section B Chief Complaint: depression and thoughts of Details of Present Illness: Admitted for exacerbation of depression. Slightly better since Abily was increased. Relevant Family History (Specify if Yes): No Relevant Social History: None Present Medications: see Short Stay Collaborative assessment Medical History: No relevant PMH History of Previous Operations: No relevant previous surgery Allergies: Allergies Allergy/AdvReac Type Severity Reaction Status Date / Time adhesive AdvReac Unknown Verified 04/21/21 23:21 aspirin AdvReac Unknown Verified 04/21/21 23:20 epinephrine AdvReac Unknown Verified 04/21/21 23:21 Review of Systems Sugical H&P ROS: Negative: Constitution, Cardiovascular, Respiratory, Neurological, Psychiatric, Hem-Onc, Allergic/Immunologic, Gastrointestinal, Genitourinary, Musculoskeletal, Integumentary, Endocrine and Eyes/Ears/Nose/Throat Exam Surgical H&P Exam: Normal: HEENT, Normal: Heart, Normal: Lungs, Normal: Extremities, Normal: Abdomen, Normal: Skin and Normal: Neurological Plan Diagnosis/Plan: Unchanged I have reviewed the history and physical and performed a pertinent physical examination on my patient. No changes have occurred unless specified.
[2021-12-06 16:00] VITALS: BP 143/67; PULSE 61; RESP 16; TEMP 36.5; O2SAT 96
[2021-12-06 20:00] VITALS: BP 119/57; PULSE 59; RESP 18; TEMP 36.3; O2SAT 96
[2021-12-06] MEDS: Melatonin 3 MG TABLET PO (20:03)
[2021-12-06] MEDS: Mirtazapine 15 MG TABLET 45 MG PO (20:04)
[2021-12-06] MEDS: risperiDONE 1 MG TABLET PO (20:04)
--- NOTE | 2021-12-06 22:25 | HO.PSYCHPN ---
Subjective Subjective Date of Service: 12/06/21 Reason For Visit: depression and thoughts of Subjective Notes: Conditional Voluntary Healthcare Proxy: No Guardianship: No Medical Problems Affecting Mental Status: Yes (covid) Interim History: Patient cooperative with isolation protocols. No worsening of respiratory status. Does feel fatigued. Patient feeling somewhat more blue ruminating Mental Status Exam Mental Status Exam Patient Appearance: Well Grooomed Patient Orientation: Person and Situation Level of Consciousness: Awake Patient Behavior: Cooperative Mood Description: Appropriate and Depressed Affect Description: Withdrawn, Constricted and Apprehensive Patient Cognition Impaired: No Ability to Follow Directions: Good Speech Pattern: Clear Hallucinations: None Delusions: Not Present Thought Process: Distracted Thought Content: positive for [place], positive for Circumstantial and positive for Perseveration Depressive Symptoms: Increased Anxiety and Hopelessness (improved) Judgement: Good Diagnostics Vital Signs (24Hr): Vital Signs - 24 hr 12/06/21 04:00 12/06/21 08:00 12/06/21 16:00 Temperature 98.0 F 97.7 F Pulse Rate 73 61 Respiratory Rate 16 16 Blood Pressure 116/89 143/67 H Pulse Oximetry 93 95 96 12/06/21 20:00 Temperature 97.3 F Pulse Rate 59 Respiratory Rate 18 Blood Pressure 119/57 L Pulse Oximetry 96 BMI result Body Mass Index 25.9 Labs Results: 11/25/21 06:52 11/25/21 06:52 Imaging Radiology Impressions: ITS Impressions Head CT 11/28/21 20:53 IMPRESSION: No acute intracranial process seen Carotid Doppler Study 11/29/21 11:47 IMPRESSION: 1. RIGHT: Minimal, non-hemodynamically significant stenosis of the proximal right internal carotid artery corresponding to a 0-49% stenosis by velocity criteria. 2. LEFT: Minimal, non-hemodynamically significant stenosis of the proximal left internal carotid artery corresponding to a 0-49% stenosis by velocity criteria. Medications Medications Current Medications Acetaminophen (Acetaminophen 325 Mg Tablet) 650 mg PO Q6H PRN PRN Reason: Headache/Pain Mild Scale (1-3) Last Admin: 12/03/21 02:55 Dose: 650 mg Documented by: Al Hydroxide/Mg Hydroxide (Magnesium Hydrox/Alum Hydrox 30 Ml Oral.Susp) 30 ml PO Q6H PRN PRN Reason: Heartburn/Nausea Albuterol Sulfate (Albuterol Sulfate 90 Mcg 8 Gm Inhaler) 2 puff INHALE RQ4H PRN PRN Reason: shortness of breath or wheezin Last Admin: 12/03/21 09:16 Dose: 2 puff Documented by: Aripiprazole (Aripiprazole 5 Mg Tablet) 5 mg PO DAILY [facility] Last Admin: 12/06/21 09:45 Dose: 5 mg Documented by: Clonidine HCl (Clonidine Hcl 0.1 Mg Tablet) 0.1 mg PO BID [facility]; Protocol Last Admin: 12/06/21 20:03 Dose: 0.1 mg Documented by: Fluoxetine HCl (Fluoxetine Hcl 20 Mg Capsule) 20 mg PO DAILY [facility] Last Admin: 12/06/21 09:45 Dose: 20 mg Documented by: Fluticasone/Vilanterol (Fluticasone/Vilanterol 100/25 Blst.W.Dev) 1 puff INHALE RDAILY [facility] Last Admin: 12/06/21 09:49 Dose: 1 puff Documented by: Guaifenesin (Guaifenesin 100 Mg/5 Ml Liquid) 5 ml PO Q4H PRN PRN Reason: Cough Last Admin: 12/03/21 16:37 Dose: 5 ml Documented by: Hydroxyzine HCl (Hydroxyzine Hcl 25 Mg Tablet) 25 mg PO BEDTIME PRN PRN Reason: Anxiety Last Admin: 12/05/21 21:17 Dose: 25 mg Documented by: Hydroxyzine HCl (Hydroxyzine Hcl 25 Mg Tablet) 25 mg PO TID PRN PRN Reason: Anxiety Last Admin: 12/04/21 11:36 Dose: 25 mg Documented by: Loperamide HCl (Loperamide Hcl 2 Mg Capsule) 2 mg PO Q6H PRN PRN Reason: diarrhea Magnesium Hydroxide (Milk Of Magnesia 30 Ml Oral.Susp) 30 ml PO DAILY PRN PRN Reason: Constipation Melatonin (Melatonin 3 Mg Tablet) 3 mg PO BEDTIME [facility] Last Admin: 12/06/21 20:03 Dose: 3 mg Documented by: Metoprolol Succinate (Metoprolol Succinate Er 12.5 Mg Halftab.Er.24h) 12.5 mg PO DAILY [facility]; Protocol Last Admin: 12/06/21 09:45 Dose: 12.5 mg Documented by: Mirtazapine (Mirtazapine 15 Mg Tablet) 45 mg PO BEDTIME [facility] Last Admin: 12/06/21 20:04 Dose: 45 mg Documented by: Pravastatin Sodium (Pravastatin Sodium 20 Mg Tablet) 20 mg PO DAILY [facility] Last Admin: 12/06/21 09:45 Dose: 20 mg Documented by: Risperidone (Risperidone 1 Mg Tablet) 1 mg PO BEDTIME [facility] Last Admin: 12/06/21 20:04 Dose: 1 mg Documented by: Trazodone HCl (Trazodone Hcl 50 Mg Tablet) 50 mg PO BEDTIME PRN PRN Reason: Insomnia Last Admin: 12/06/21 03:50 Dose: 50 mg Documented by: Allergies Allergies Allergy/AdvReac Type Severity Reaction Status Date / Time adhesive AdvReac Unknown Verified 04/21/21 23:21 aspirin AdvReac Unknown Verified 04/21/21 23:20 epinephrine AdvReac Unknown Verified 04/21/21 23:21 Assessment & Plan Assessment & Plan (1) MDD (major depressive disorder), recurrent episode, moderate: Status: Acute Code(s): F33.1 - Major depressive disorder, recurrent, moderate Assessment and Plan: Presents with major depression without psychosis. Significant impact on ability to function. Stress around 's well-being and support. will discuss with primary team potential for starting ECT again. Noted hospitalist consult. No med changes for now 11/27/2021 will discuss with treatment team consider ECT question of recurrent depression question of addition of borderline pathology 11/28/21 Pt seen chart reviewed mood severely depressed has responded to ect but also has severe anxiety re being alone ekg rbbb Has c/o transient weakness confusion ? tia neuro consult head ct hold ect till neuro eval consider change risp to abilify 11/29/21 ect restart abilify 2 mg daily 11/30/2021 COVID positive patient on isolation hospitalist consult id. Monitor for exacerbation of symptoms so to 95% continue Abilify lower Prozac increase mirtazapine as tolerated. Hold off on ECT currently 12/01/2021 Patient seen in psychiatric follow-up patient isolation secondary to COVID has been tolerating this. No fever shortness of breath pulse oxygen remains stable. Increase Abilify to 4 mg daily ECT on hold continue to encourage coping strategies regarding managing her feelings about being isolated while at home feeling dependent on her who was in a rehab setting denies active self-harm 12/05/21 Pt without serious med consequences to covid pulse ox ok doing better with abilify taper risperadol hold off ect for now coping skills for isolation fears 12/06/2021 Patient seen in psychiatric follow-up. Patient withdrawn somewhat flatter in more depressed. Has been more ruminating again worried about what life be like without her . Abilify increased to 5 mg mirtazapine increased to 45 mg some degree of passive SI and hopelessness pleasant cooperative has good psychological understanding but remains fearful and despondent Plan This is a?75yo F with COPD, HTN, hx TIA, hx hyperCA/hyperPTH s/p PTX, hx multiple colectomies with eventual reanastomosis for multiple precancerous polyps, s/p PPM for arrhythmia, prediabetes, depression, and PTSD admitted to [facility] for SI ECT - patient has had ECT before with no previous adverse outcomes. benefits likely outweigh any risks given depression/SI. Obtain EKG prior to any planned ECT No medication reconciliation has been done at this point. COPD continue Breo, previously on spiriva but no med rec done prn albuterol HTN previously on metoprolol ? d/c due to starting clonidine follow blood pressure HLD/hx TIA - continue statin tobacco abuse - smokes 6 cig/d; declines NRT depression/PTSD - medications as per psychiatry team Thank you for allowing us to participate in the care of this patient. Attending - dr. briones I spent minutes with the patient and/or on the patient floor today, greater than?50% of which was spent counseling/coordinating care. Reason for contiued inpatient stay Substantial Risk for: harm to self and rapid decompensation
[2021-12-07 08:00] VITALS: BP 133/61; PULSE 60; RESP 17; TEMP 36.2; O2SAT 96
[2021-12-07] MEDS: Pravastatin Sodium 20 MG TABLET PO (08:35)
[2021-12-07] MEDS: Metoprolol Succinate ER 12.5 MG HALFTAB.ER.24H PO (08:35)
[2021-12-07] MEDS: ARIPiprazole 5 MG TABLET PO (08:35)
[2021-12-07] MEDS: cloNIDine HCL 0.1 MG TABLET PO ×2 (08:35→20:31)
[2021-12-07] MEDS: FLUoxetine HCl 20 MG CAPSULE PO (08:35)
[2021-12-07] MEDS: Fluticasone/Vilanterol 100/25 BLST.W.DEV 1 PUFF INHALE (08:36)
[2021-12-07 12:00] VITALS: BP 116/57; PULSE 63; RESP 16; TEMP 36.4; O2SAT 95
--- NOTE | 2021-12-07 12:36 | PC.NURSE ---
Pt seen this date for individual OT tx session with focus on building coping skills for combating depression pt engages in worksheet Coping with major depressive disorder . Pt is able to appropriately identify and differentiate between toxic and supportive relationships in her life and strategies for coping. Pt reports deep breathing, water coloring, and talking with supportive friends as three coping mechanisms that she often uses. Pt is provided with additional educational material or healthy habits and coping skills. Pt is receptive, pleasant, and an active participant in tx session this date.
--- NOTE | 2021-12-07 18:09 | P.PNPSI_ITS ---
Subjective Subjective Date of Service: 12/07/21 Reason For Visit: depression and thoughts of Interim History: Patient seen and discussed with team. Non-adherent with BP medication. Patient evaluated today and upon interview she reports she feels Pretty good. Likewise says her sleep is pretty good. Pt says she feels depressed because her is in the hospital, worried about him. Talked to him on the phone tonight. Eating okay. Energy is not so good, feels weary. ? In the milieu, patient is safe in behavior. Says she feels safe. Mental Status Exam Mental Status Exam Narrative: Patient Appearance:?Well Grooomed Patient Orientation:?Person and Situation Level of Consciousness:?Awake Patient Behavior:?Cooperative Mood Description:?Appropriate and Depressed Affect Description:?Withdrawn, Constricted and Apprehensive Patient Cognition Impaired:?No Ability to Follow Directions:?Good Speech Pattern:?Clear Hallucinations:?None Delusions:?Not Present Thought Process:?Distracted Thought Content:?positive for [place], positive for Circumstantial and positive for Perseveration Depressive Symptoms:?Increased Anxiety and Hopelessness (improved) Judgment:?Good Diagnostics Vital Signs (24Hr): Vital Signs - 24 hr 12/06/21 20:00 12/07/21 08:00 12/07/21 12:00 Temperature 97.3 F 97.1 F 97.5 F Pulse Rate 59 60 63 Respiratory Rate 18 17 16 Blood Pressure 119/57 L 133/61 116/57 L Pulse Oximetry 96 96 95 BMI result Body Mass Index 25.9 Labs Results: 11/25/21 06:52 11/25/21 06:52 Imaging Radiology Impressions: ITS Impressions Head CT 11/28/21 20:53 IMPRESSION: No acute intracranial process seen Carotid Doppler Study 11/29/21 11:47 IMPRESSION: 1. RIGHT: Minimal, non-hemodynamically significant stenosis of the proximal right internal carotid artery corresponding to a 0-49% stenosis by velocity criteria. 2. LEFT: Minimal, non-hemodynamically significant stenosis of the proximal left internal carotid artery corresponding to a 0-49% stenosis by velocity criteria. Medications Medications Current Medications Acetaminophen (Acetaminophen 325 Mg Tablet) 650 mg PO Q6H PRN PRN Reason: Headache/Pain Mild Scale (1-3) Last Admin: 12/03/21 02:55 Dose: 650 mg Documented by: Al Hydroxide/Mg Hydroxide (Magnesium Hydrox/Alum Hydrox 30 Ml Oral.Susp) 30 ml PO Q6H PRN PRN Reason: Heartburn/Nausea Albuterol Sulfate (Albuterol Sulfate 90 Mcg 8 Gm Inhaler) 2 puff INHALE RQ4H PRN PRN Reason: shortness of breath or wheezin Last Admin: 12/03/21 09:16 Dose: 2 puff Documented by: Aripiprazole (Aripiprazole 5 Mg Tablet) 5 mg PO DAILY [facility] Last Admin: 12/07/21 08:35 Dose: 5 mg Documented by: Clonidine HCl (Clonidine Hcl 0.1 Mg Tablet) 0.1 mg PO BID [facility]; Protocol Last Admin: 12/07/21 08:35 Dose: 0.1 mg Documented by: Fluoxetine HCl (Fluoxetine Hcl 20 Mg Capsule) 20 mg PO DAILY [facility] Last Admin: 12/07/21 08:35 Dose: 20 mg Documented by: Fluticasone/Vilanterol (Fluticasone/Vilanterol 100/25 Blst.W.Dev) 1 puff INHALE RDAILY [facility] Last Admin: 12/07/21 08:36 Dose: 1 puff Documented by: Guaifenesin (Guaifenesin 100 Mg/5 Ml Liquid) 5 ml PO Q4H PRN PRN Reason: Cough Last Admin: 12/03/21 16:37 Dose: 5 ml Documented by: Hydroxyzine HCl (Hydroxyzine Hcl 25 Mg Tablet) 25 mg PO BEDTIME PRN PRN Reason: Anxiety Last Admin: 12/05/21 21:17 Dose: 25 mg Documented by: Hydroxyzine HCl (Hydroxyzine Hcl 25 Mg Tablet) 25 mg PO TID PRN PRN Reason: Anxiety Last Admin: 12/04/21 11:36 Dose: 25 mg Documented by: Loperamide HCl (Loperamide Hcl 2 Mg Capsule) 2 mg PO Q6H PRN PRN Reason: diarrhea Magnesium Hydroxide (Milk Of Magnesia 30 Ml Oral.Susp) 30 ml PO DAILY PRN PRN Reason: Constipation Melatonin (Melatonin 3 Mg Tablet) 3 mg PO BEDTIME [facility] Last Admin: 12/06/21 20:03 Dose: 3 mg Documented by: Metoprolol Succinate (Metoprolol Succinate Er 12.5 Mg Halftab.Er.24h) 12.5 mg PO DAILY [facility]; Protocol Last Admin: 12/07/21 08:35 Dose: 12.5 mg Documented by: Mirtazapine (Mirtazapine 15 Mg Tablet) 45 mg PO BEDTIME [facility] Last Admin: 12/06/21 20:04 Dose: 45 mg Documented by: Pravastatin Sodium (Pravastatin Sodium 20 Mg Tablet) 20 mg PO DAILY [facility] Last Admin: 12/07/21 08:35 Dose: 20 mg Documented by: Risperidone (Risperidone 1 Mg Tablet) 1 mg PO BEDTIME [facility] Last Admin: 12/06/21 20:04 Dose: 1 mg Documented by: Trazodone HCl (Trazodone Hcl 50 Mg Tablet) 50 mg PO BEDTIME PRN PRN Reason: Insomnia Last Admin: 12/06/21 03:50 Dose: 50 mg Documented by: Allergies Allergies Allergy/AdvReac Type Severity Reaction Status Date / Time adhesive AdvReac Unknown Verified 04/21/21 23:21 aspirin AdvReac Unknown Verified 04/21/21 23:20 epinephrine AdvReac Unknown Verified 04/21/21 23:21 Assessment & Plan Assessment & Plan (1) MDD (major depressive disorder), recurrent episode, moderate: Status: Acute Code(s): F33.1 - Major depressive disorder, recurrent, moderate Assessment and Plan: Presents with major depression without psychosis. Significant impact on ability to function. Stress around 's well-being and support. will discuss with primary team potential for starting ECT again. Noted hospitalist consult. No med changes for now 11/27/2021 will discuss with treatment team consider ECT question of recurrent depression question of addition of borderline pathology 11/28/21 Pt seen chart reviewed mood severely depressed has responded to ect but also has severe anxiety re being alone ekg rbbb Has c/o transient weakness confusion ? tia neuro consult head ct hold ect till neuro eval consider change risp to abilify 11/29/21 ect restart abilify 2 mg daily 11/30/2021 COVID positive patient on isolation hospitalist consult id. Monitor for exacerbation of symptoms so to 95% continue Abilify lower Prozac increase mirtazapine as tolerated. Hold off on ECT currently 12/01/2021 Patient seen in psychiatric follow-up patient isolation secondary to COVID has been tolerating this. No fever shortness of breath pulse oxygen remains stable. Increase Abilify to 4 mg daily ECT on hold continue to encourage coping strategies regarding managing her feelings about being isolated while at home feeling dependent on her who was in a rehab setting denies active self- harm 12/05/21 Pt without serious med consequences to covid pulse ox ok doing better with abilify taper risperadol hold off ect for now coping skills for isolation fears 12/06/2021 Patient seen in psychiatric follow-up. Patient withdrawn somewhat flatter in more depressed. Has been more ruminating again worried about what life be like without her . Abilify increased to 5 mg mirtazapine increased to 45 mg some degree of passive SI and hopelessness pleasant cooperative has good psychological understanding but remains fearful and despondent 12/07/2021 Continue medication regimen, no changes, will monitor for benefit, ECT held Plan This is a?75yo F with COPD, HTN, hx TIA, hx hyperCA/hyperPTH s/p PTX, hx multiple colectomies with eventual reanastomosis for multiple precancerous polyps, s/p PPM for arrhythmia, prediabetes, depression, and PTSD admitted to [facility] for SI ECT - patient has had ECT before with no previous adverse outcomes. benefits likely outweigh any risks given depression/SI. Obtain EKG prior to any planned ECT No medication reconciliation has been done at this point. COPD continue Breo, previously on spiriva but no med rec done prn albuterol HTN previously on metoprolol ? d/c due to starting clonidine follow blood pressure HLD/hx TIA - continue statin tobacco abuse - smokes 6 cig/d; declines NRT depression/PTSD - medications as per psychiatry team Thank you for allowing us to participate in the care of this patient. Attending - dr. briones I spent minutes with the patient and/or on the patient floor today, greater than?50% of which was spent counseling/coordinating care. Reason for contiued inpatient stay Substantial Risk for: harm to self, inability to function, rapid decompensation and med/psych decompensation
[2021-12-07 20:00] VITALS: BP 118/58; PULSE 58; RESP 18; TEMP 36.4; O2SAT 96
[2021-12-07] MEDS: Mirtazapine 15 MG TABLET 45 MG PO (20:32)
[2021-12-07] MEDS: Melatonin 3 MG TABLET PO (20:32)
[2021-12-07] MEDS: risperiDONE 1 MG TABLET PO (20:32)
[2021-12-08 08:00] VITALS: BP 121/58; PULSE 62; RESP 17; TEMP 36.1; O2SAT 95
[2021-12-08] MEDS: Fluticasone/Vilanterol 100/25 BLST.W.DEV 1 PUFF INHALE (08:01)
[2021-12-08] MEDS: FLUoxetine HCl 20 MG CAPSULE PO (08:01)
[2021-12-08] MEDS: ARIPiprazole 5 MG TABLET PO (08:01)
[2021-12-08] MEDS: Pravastatin Sodium 20 MG TABLET PO (08:01)
[2021-12-08] MEDS: cloNIDine HCL 0.1 MG TABLET PO ×2 (08:01→20:22)
[2021-12-08] MEDS: guaiFENesin 100 MG/5 ML LIQUID PO ×2 (08:11→14:33)
--- NOTE | 2021-12-08 10:23 | P.PNPSI_ITS ---
Subjective Subjective Date of Service: 12/08/21 Reason For Visit: depression and thoughts of Subjective Notes: Conditional Voluntary Interim History: the nursing staff reported the patient has been pleasant and cooperative, no new symptoms. She acknowledged mild depression. The social services assistant reported they will have a family meeting for next Saturday. On interview the patient reports feeling fine no new symptoms Mental Status Exam Mental Status Exam Patient Appearance: Well Grooomed Patient Orientation: Person and Situation Level of Consciousness: Awake and Alert Patient Behavior: Cooperative Mood Description: Constricted Affect Description: Calm Patient Cognition Impaired: No Ability to Follow Directions: Good Speech Pattern: Clear Hallucinations: None Delusions: Not Present Thought Process: Linear Thought Content: positive for Circumstantial Judgement: Fair Diagnostics Vital Signs (24Hr): Vital Signs - 24 hr 12/07/21 12:00 12/07/21 20:00 12/08/21 08:00 Temperature 97.5 F 97.6 F 96.9 F Pulse Rate 63 58 62 Respiratory Rate 16 18 17 Blood Pressure 116/57 L 118/58 L 121/58 L Pulse Oximetry 95 96 95 BMI result Body Mass Index 25.9 Labs Results: 11/25/21 06:52 11/25/21 06:52 Imaging Radiology Impressions: ITS Impressions Head CT 11/28/21 20:53 IMPRESSION: No acute intracranial process seen Carotid Doppler Study 11/29/21 11:47 IMPRESSION: 1. RIGHT: Minimal, non-hemodynamically significant stenosis of the proximal right internal carotid artery corresponding to a 0-49% stenosis by velocity criteria. 2. LEFT: Minimal, non-hemodynamically significant stenosis of the proximal left internal carotid artery corresponding to a 0-49% stenosis by velocity criteria. Medications Medications Current Medications Acetaminophen (Acetaminophen 325 Mg Tablet) 650 mg PO Q6H PRN PRN Reason: Headache/Pain Mild Scale (1-3) Last Admin: 12/03/21 02:55 Dose: 650 mg Documented by: Al Hydroxide/Mg Hydroxide (Magnesium Hydrox/Alum Hydrox 30 Ml Oral.Susp) 30 ml PO Q6H PRN PRN Reason: Heartburn/Nausea Albuterol Sulfate (Albuterol Sulfate 90 Mcg 8 Gm Inhaler) 2 puff INHALE RQ4H PRN PRN Reason: shortness of breath or wheezin Last Admin: 12/03/21 09:16 Dose: 2 puff Documented by: Aripiprazole (Aripiprazole 5 Mg Tablet) 5 mg PO DAILY [facility] Last Admin: 12/08/21 08:01 Dose: 5 mg Documented by: Clonidine HCl (Clonidine Hcl 0.1 Mg Tablet) 0.1 mg PO BID [facility]; Protocol Last Admin: 12/08/21 08:01 Dose: 0.1 mg Documented by: Fluoxetine HCl (Fluoxetine Hcl 20 Mg Capsule) 20 mg PO DAILY [facility] Last Admin: 12/08/21 08:01 Dose: 20 mg Documented by: Fluticasone/Vilanterol (Fluticasone/Vilanterol 100/25 Blst.W.Dev) 1 puff INHALE RDAILY [facility] Last Admin: 12/08/21 08:01 Dose: 1 puff Documented by: Guaifenesin (Guaifenesin 100 Mg/5 Ml Liquid) 5 ml PO Q4H PRN PRN Reason: Cough Last Admin: 12/08/21 08:11 Dose: 5 ml Documented by: Hydroxyzine HCl (Hydroxyzine Hcl 25 Mg Tablet) 25 mg PO BEDTIME PRN PRN Reason: Anxiety Last Admin: 12/05/21 21:17 Dose: 25 mg Documented by: Hydroxyzine HCl (Hydroxyzine Hcl 25 Mg Tablet) 25 mg PO TID PRN PRN Reason: Anxiety Last Admin: 12/04/21 11:36 Dose: 25 mg Documented by: Loperamide HCl (Loperamide Hcl 2 Mg Capsule) 2 mg PO Q6H PRN PRN Reason: diarrhea Magnesium Hydroxide (Milk Of Magnesia 30 Ml Oral.Susp) 30 ml PO DAILY PRN PRN Reason: Constipation Melatonin (Melatonin 3 Mg Tablet) 3 mg PO BEDTIME [facility] Last Admin: 12/07/21 20:32 Dose: 3 mg Documented by: Metoprolol Succinate (Metoprolol Succinate Er 12.5 Mg Halftab.Er.24h) 12.5 mg PO DAILY [facility]; Protocol Last Admin: 12/08/21 08:38 Dose: Not Given Documented by: Mirtazapine (Mirtazapine 15 Mg Tablet) 45 mg PO BEDTIME [facility] Last Admin: 12/07/21 20:32 Dose: 45 mg Documented by: Pravastatin Sodium (Pravastatin Sodium 20 Mg Tablet) 20 mg PO DAILY [facility] Last Admin: 12/08/21 08:01 Dose: 20 mg Documented by: Risperidone (Risperidone 1 Mg Tablet) 1 mg PO BEDTIME [facility] Last Admin: 12/07/21 20:32 Dose: 1 mg Documented by: Trazodone HCl (Trazodone Hcl 50 Mg Tablet) 50 mg PO BEDTIME PRN PRN Reason: Insomnia Last Admin: 12/06/21 03:50 Dose: 50 mg Documented by: Allergies Allergies Allergy/AdvReac Type Severity Reaction Status Date / Time adhesive AdvReac Unknown Verified 04/21/21 23:21 aspirin AdvReac Unknown Verified 04/21/21 23:20 epinephrine AdvReac Unknown Verified 04/21/21 23:21 Assessment & Plan Assessment & Plan (1) MDD (major depressive disorder), recurrent episode, moderate: Status: Acute Code(s): F33.1 - Major depressive disorder, recurrent, moderate Assessment and Plan: Presents with major depression without psychosis. Significant impact on ability to function. Stress around 's well-being and support. will discuss with primary team potential for starting ECT again. Noted hospitalist consult. No med changes for now 11/27/2021 will discuss with treatment team consider ECT question of recurrent depression question of addition of borderline pathology 11/28/21 Pt seen chart reviewed mood severely depressed has responded to ect but also has severe anxiety re being alone ekg rbbb Has c/o transient weakness confusion ? tia neuro consult head ct hold ect till neuro eval consider change risp to abilify 11/29/21 ect restart abilify 2 mg daily 11/30/2021 COVID positive patient on isolation hospitalist consult id. Monitor for exacerbation of symptoms so to 95% continue Abilify lower Prozac increase mirtazapine as tolerated. Hold off on ECT currently 12/01/2021 Patient seen in psychiatric follow-up patient isolation secondary to COVID has been tolerating this. No fever shortness of breath pulse oxygen remains stable. Increase Abilify to 4 mg daily ECT on hold continue to encourage coping strategies regarding managing her feelings about being isolated while at home feeling dependent on her who was in a rehab setting denies active self- harm 12/05/21 Pt without serious med consequences to covid pulse ox ok doing better with abilify taper risperadol hold off ect for now coping skills for isolation fears 12/06/2021 Patient seen in psychiatric follow-up. Patient withdrawn somewhat flatter in more depressed. Has been more ruminating again worried about what life be like without her . Abilify increased to 5 mg mirtazapine increased to 45 mg some degree of passive SI and hopelessness pleasant cooperative has good psychological understanding but remains fearful and despondent 12/07/2021 Continue medication regimen, no changes, will monitor for benefit, ECT held Plan This is a?75yo F with COPD, HTN, hx TIA, hx hyperCA/hyperPTH s/p PTX, hx multiple colectomies with eventual reanastomosis for multiple precancerous polyps, s/p PPM for arrhythmia, prediabetes, depression, and PTSD admitted to [facility] for SI ECT - patient has had ECT before with no previous adverse outcomes. benefits likely outweigh any risks given depression/SI. Obtain EKG prior to any planned ECT No medication reconciliation has been done at this point. COPD continue Breo, previously on spiriva but no med rec done prn albuterol HTN previously on metoprolol ? d/c due to starting clonidine follow blood pressure HLD/hx TIA - continue statin tobacco abuse - smokes 6 cig/d; declines NRT depression/PTSD - medications as per psychiatry team Thank you for allowing us to participate in the care of this patient. Attending - dr. briones I spent __20____ minutes with the patient and/or on the patient floor today, greater than?50% of which was spent counseling/coordinating care. Reason for contiued inpatient stay Substantial Risk for: inability to function, rapid decompensation and med/psych decompensation
[2021-12-08 12:00] VITALS: BP 132/70; PULSE 59; RESP 16; TEMP 36; O2SAT 95
[2021-12-08 16:00] VITALS: BP 127/76; PULSE 60; RESP 14; TEMP 36.9; O2SAT 96
[2021-12-08 20:00] VITALS: RESP 20; TEMP 36.1; O2SAT 96
[2021-12-08] MEDS: Mirtazapine 15 MG TABLET 45 MG PO (20:22)
[2021-12-08] MEDS: risperiDONE 1 MG TABLET PO (20:22)
[2021-12-08] MEDS: Melatonin 3 MG TABLET PO (20:22)
[2021-12-08] MEDS: hydrOXYzine HCL 25 MG TABLET PO (20:27)
[2021-12-09 08:06] VITALS: BP 138/65; PULSE 86; RESP 16; TEMP 35.8; O2SAT 95
[2021-12-09] MEDS: Metoprolol Succinate ER 12.5 MG HALFTAB.ER.24H PO (08:08)
[2021-12-09] MEDS: Pravastatin Sodium 20 MG TABLET PO (08:08)
[2021-12-09] MEDS: ARIPiprazole 5 MG TABLET PO (08:08)
[2021-12-09] MEDS: FLUoxetine HCl 20 MG CAPSULE PO (08:08)
[2021-12-09] MEDS: Fluticasone/Vilanterol 100/25 BLST.W.DEV 1 PUFF INHALE (08:09)
[2021-12-09] MEDS: cloNIDine HCL 0.1 MG TABLET PO ×2 (08:09→20:56)
--- NOTE | 2021-12-09 10:57 | HO.PSYCHPN ---
Subjective Subjective Date of Service: 12/09/21 Reason For Visit: depression and thoughts of Subjective Notes: Conditional Voluntary Healthcare Proxy: No Guardianship: No Medical Problems Affecting Mental Status: Yes (COVID positive) Interim History: Patient was seen and discussed in rounds today. She has been visible in pleasant. She is on 15 minute checks. Some anxiety over her 's medical problems and recent diagnoses. Eating and sleeping adequately. No complaints or side effects. No changes were made. Still having some mild depression. Review of Systems Review of Systems Yes all other systems are reviewed and are negative Mental Status Exam Mental Status Exam Narrative: In today's visit she is alert, pleasant and interactive. Oriented to person and place. Speech is normal. Moderate eye contact. Affect is constricted. No signs of psychosis. Cognitively impaired. Judgment is marginal Diagnostics Vital Signs (24Hr): Vital Signs - 24 hr 12/08/21 12:00 12/08/21 16:00 12/08/21 20:00 Temperature 96.8 F 98.4 F 97 F Pulse Rate 59 60 Respiratory Rate 16 14 20 Blood Pressure 132/70 127/76 Pulse Oximetry 95 96 96 12/09/21 08:06 Temperature 96.4 F L Pulse Rate 86 Respiratory Rate 16 Blood Pressure 138/65 Pulse Oximetry 95 BMI result Body Mass Index 25.9 Labs Results: 11/25/21 06:52 11/25/21 06:52 Imaging Radiology Impressions: ITS Impressions Head CT 11/28/21 20:53 IMPRESSION: No acute intracranial process seen Carotid Doppler Study 11/29/21 11:47 IMPRESSION: 1. RIGHT: Minimal, non-hemodynamically significant stenosis of the proximal right internal carotid artery corresponding to a 0-49% stenosis by velocity criteria. 2. LEFT: Minimal, non-hemodynamically significant stenosis of the proximal left internal carotid artery corresponding to a 0-49% stenosis by velocity criteria. Medications Medications Current Medications Acetaminophen (Acetaminophen 325 Mg Tablet) 650 mg PO Q6H PRN PRN Reason: Headache/Pain Mild Scale (1-3) Last Admin: 12/03/21 02:55 Dose: 650 mg Documented by: Al Hydroxide/Mg Hydroxide (Magnesium Hydrox/Alum Hydrox 30 Ml Oral.Susp) 30 ml PO Q6H PRN PRN Reason: Heartburn/Nausea Albuterol Sulfate (Albuterol Sulfate 90 Mcg 8 Gm Inhaler) 2 puff INHALE RQ4H PRN PRN Reason: shortness of breath or wheezin Last Admin: 12/03/21 09:16 Dose: 2 puff Documented by: Aripiprazole (Aripiprazole 5 Mg Tablet) 5 mg PO DAILY [facility] Last Admin: 12/09/21 08:08 Dose: 5 mg Documented by: Clonidine HCl (Clonidine Hcl 0.1 Mg Tablet) 0.1 mg PO BID [facility]; Protocol Last Admin: 12/09/21 08:09 Dose: 0.1 mg Documented by: Fluoxetine HCl (Fluoxetine Hcl 20 Mg Capsule) 20 mg PO DAILY [facility] Last Admin: 12/09/21 08:08 Dose: 20 mg Documented by: Fluticasone/Vilanterol (Fluticasone/Vilanterol 100/25 Blst.W.Dev) 1 puff INHALE RDAILY [facility] Last Admin: 12/09/21 08:09 Dose: 1 puff Documented by: Guaifenesin (Guaifenesin 100 Mg/5 Ml Liquid) 5 ml PO Q4H PRN PRN Reason: Cough Last Admin: 12/08/21 14:33 Dose: 5 ml Documented by: Hydroxyzine HCl (Hydroxyzine Hcl 25 Mg Tablet) 25 mg PO BEDTIME PRN PRN Reason: Anxiety Last Admin: 12/08/21 20:27 Dose: 25 mg Documented by: Hydroxyzine HCl (Hydroxyzine Hcl 25 Mg Tablet) 25 mg PO TID PRN PRN Reason: Anxiety Last Admin: 12/04/21 11:36 Dose: 25 mg Documented by: Loperamide HCl (Loperamide Hcl 2 Mg Capsule) 2 mg PO Q6H PRN PRN Reason: diarrhea Magnesium Hydroxide (Milk Of Magnesia 30 Ml Oral.Susp) 30 ml PO DAILY PRN PRN Reason: Constipation Melatonin (Melatonin 3 Mg Tablet) 3 mg PO BEDTIME [facility] Last Admin: 12/08/21 20:22 Dose: 3 mg Documented by: Metoprolol Succinate (Metoprolol Succinate Er 12.5 Mg Halftab.Er.24h) 12.5 mg PO DAILY [facility]; Protocol Last Admin: 12/09/21 08:08 Dose: 12.5 mg Documented by: Mirtazapine (Mirtazapine 15 Mg Tablet) 45 mg PO BEDTIME [facility] Last Admin: 12/08/21 20:22 Dose: 45 mg Documented by: Pravastatin Sodium (Pravastatin Sodium 20 Mg Tablet) 20 mg PO DAILY [facility] Last Admin: 12/09/21 08:08 Dose: 20 mg Documented by: Risperidone (Risperidone 1 Mg Tablet) 1 mg PO BEDTIME [facility] Last Admin: 12/08/21 20:22 Dose: 1 mg Documented by: Trazodone HCl (Trazodone Hcl 50 Mg Tablet) 50 mg PO BEDTIME PRN PRN Reason: Insomnia Last Admin: 12/06/21 03:50 Dose: 50 mg Documented by: Allergies Allergies Allergy/AdvReac Type Severity Reaction Status Date / Time adhesive AdvReac Unknown Verified 04/21/21 23:21 aspirin AdvReac Unknown Verified 04/21/21 23:20 epinephrine AdvReac Unknown Verified 04/21/21 23:21 Assessment & Plan Assessment & Plan (1) MDD (major depressive disorder), recurrent episode, moderate: Status: Acute Code(s): F33.1 - Major depressive disorder, recurrent, moderate Assessment and Plan: Presents with major depression without psychosis. Significant impact on ability to function. Stress around 's well-being and support. will discuss with primary team potential for starting ECT again. Noted hospitalist consult. No med changes for now 11/27/2021 will discuss with treatment team consider ECT question of recurrent depression question of addition of borderline pathology 11/28/21 Pt seen chart reviewed mood severely depressed has responded to ect but also has severe anxiety re being alone ekg rbbb Has c/o transient weakness confusion ? tia neuro consult head ct hold ect till neuro eval consider change risp to abilify 11/29/21 ect restart abilify 2 mg daily 11/30/2021 COVID positive patient on isolation hospitalist consult id. Monitor for exacerbation of symptoms so to 95% continue Abilify lower Prozac increase mirtazapine as tolerated. Hold off on ECT currently 12/01/2021 Patient seen in psychiatric follow-up patient isolation secondary to COVID has been tolerating this. No fever shortness of breath pulse oxygen remains stable. Increase Abilify to 4 mg daily ECT on hold continue to encourage coping strategies regarding managing her feelings about being isolated while at home feeling dependent on her who was in a rehab setting denies active self-harm 12/05/21 Pt without serious med consequences to covid pulse ox ok doing better with abilify taper risperadol hold off ect for now coping skills for isolation fears 12/06/2021 Patient seen in psychiatric follow-up. Patient withdrawn somewhat flatter in more depressed. Has been more ruminating again worried about what life be like without her . Abilify increased to 5 mg mirtazapine increased to 45 mg some degree of passive SI and hopelessness pleasant cooperative has good psychological understanding but remains fearful and despondent 12/07/2021 Continue medication regimen, no changes, will monitor for benefit, ECT held 12/09: Continue current regimen and plans Plan This is a?75yo F with COPD, HTN, hx TIA, hx hyperCA/hyperPTH s/p PTX, hx multiple colectomies with eventual reanastomosis for multiple precancerous polyps, s/p PPM for arrhythmia, prediabetes, depression, and PTSD admitted to [facility] for SI ECT - patient has had ECT before with no previous adverse outcomes. benefits likely outweigh any risks given depression/SI. Obtain EKG prior to any planned ECT No medication reconciliation has been done at this point. COPD continue Breo, previously on spiriva but no med rec done prn albuterol HTN previously on metoprolol ? d/c due to starting clonidine follow blood pressure HLD/hx TIA - continue statin tobacco abuse - smokes 6 cig/d; declines NRT depression/PTSD - medications as per psychiatry team Thank you for allowing us to participate in the care of this patient. Attending - dr. briones I spent minutes with the patient and/or on the patient floor today, greater than?50% of which was spent counseling/coordinating care. Reason for contiued inpatient stay Substantial Risk for: inability to function
[2021-12-09 12:00] VITALS: BP 137/66; PULSE 70; RESP 16; TEMP 36.4; O2SAT 94
[2021-12-09] MEDS: Acetaminophen 325 MG TABLET 650 MG PO (15:59)
[2021-12-09 16:00] VITALS: PULSE 64; TEMP 36.1; O2SAT 96
[2021-12-09] MEDS: hydrOXYzine HCL 25 MG TABLET PO (19:22)
[2021-12-09 20:00] VITALS: BP 158/107; PULSE 62; RESP 16; TEMP 36.7; O2SAT 96
[2021-12-09] MEDS: risperiDONE 1 MG TABLET PO (20:56)
[2021-12-09] MEDS: Melatonin 3 MG TABLET PO (20:56)
[2021-12-09] MEDS: Mirtazapine 15 MG TABLET 45 MG PO (20:56)
[2021-12-10 04:00] VITALS: BP 147/73; PULSE 72; RESP 14; TEMP 36.6; O2SAT 96
[2021-12-10] MEDS: hydrOXYzine HCL 25 MG TABLET PO (04:32)
--- NOTE | 2021-12-10 05:40 | PC.NURSE ---
The pt was anxious and tearful through the shift and occasionally woke up from sleep,the pt endorsed anxiiety 02/14 d/t having found out that the had been intubated at another hospital, pt told t/w, If only I can hear his voice one more time! Pt was given some assurance,requested/received Atarax with some effectiveness.
[2021-12-10 08:00] VITALS: BP 149/70; PULSE 81; RESP 17; TEMP 36.5; O2SAT 96
[2021-12-10] MEDS: ARIPiprazole 5 MG TABLET PO (08:02)
[2021-12-10] MEDS: Fluticasone/Vilanterol 100/25 BLST.W.DEV 1 PUFF INHALE (08:02)
[2021-12-10] MEDS: FLUoxetine HCl 20 MG CAPSULE PO (08:02)
[2021-12-10] MEDS: Metoprolol Succinate ER 12.5 MG HALFTAB.ER.24H PO (08:02)
[2021-12-10] MEDS: Pravastatin Sodium 20 MG TABLET PO (08:02)
[2021-12-10] MEDS: cloNIDine HCL 0.1 MG TABLET PO ×2 (08:06→20:59)
--- NOTE | 2021-12-10 09:03 | HO.PSYCHPN ---
Subjective Subjective Date of Service: 12/10/21 Reason For Visit: depression and thoughts of Subjective Notes: Conditional Voluntary Healthcare Proxy: No Guardianship: No Medical Problems Affecting Mental Status: No Interim History: Patient was seen and discussed in rounds today. Records and plans were reviewed. She continues to be preoccupied and anxious about her who was taken to [facility] and is in the ICU, intubated. She is coping adequately. She is med compliant, pleasant and cooperative. She denies any side effects. No complaints. Eating and sleeping adequately. No changes were made Diagnostics Vital Signs (24Hr): Vital Signs - 24 hr 12/09/21 12:00 12/09/21 16:00 12/09/21 20:00 Temperature 97.5 F 97.0 F 98.0 F Pulse Rate 70 64 62 Respiratory Rate 16 16 Blood Pressure 137/66 158/107 H Pulse Oximetry 94 96 96 12/10/21 04:00 Temperature 97.9 F Pulse Rate 72 Respiratory Rate 14 Blood Pressure 147/73 H Pulse Oximetry 96 BMI result Body Mass Index 25.9 Labs Results: 11/25/21 06:52 11/25/21 06:52 Imaging Radiology Impressions: ITS Impressions Head CT 11/28/21 20:53 IMPRESSION: No acute intracranial process seen Carotid Doppler Study 11/29/21 11:47 IMPRESSION: 1. RIGHT: Minimal, non-hemodynamically significant stenosis of the proximal right internal carotid artery corresponding to a 0-49% stenosis by velocity criteria. 2. LEFT: Minimal, non-hemodynamically significant stenosis of the proximal left internal carotid artery corresponding to a 0-49% stenosis by velocity criteria. Medications Medications Current Medications Acetaminophen (Acetaminophen 325 Mg Tablet) 650 mg PO Q6H PRN PRN Reason: Headache/Pain Mild Scale (1-3) Last Admin: 12/09/21 15:59 Dose: 650 mg Documented by: Al Hydroxide/Mg Hydroxide (Magnesium Hydrox/Alum Hydrox 30 Ml Oral.Susp) 30 ml PO Q6H PRN PRN Reason: Heartburn/Nausea Albuterol Sulfate (Albuterol Sulfate 90 Mcg 8 Gm Inhaler) 2 puff INHALE RQ4H PRN PRN Reason: shortness of breath or wheezin Last Admin: 12/03/21 09:16 Dose: 2 puff Documented by: Aripiprazole (Aripiprazole 5 Mg Tablet) 5 mg PO DAILY [facility] Last Admin: 12/10/21 08:02 Dose: 5 mg Documented by: Clonidine HCl (Clonidine Hcl 0.1 Mg Tablet) 0.1 mg PO BID [facility]; Protocol Last Admin: 12/10/21 08:06 Dose: 0.1 mg Documented by: Fluoxetine HCl (Fluoxetine Hcl 20 Mg Capsule) 20 mg PO DAILY [facility] Last Admin: 12/10/21 08:02 Dose: 20 mg Documented by: Fluticasone/Vilanterol (Fluticasone/Vilanterol 100/25 Blst.W.Dev) 1 puff INHALE RDAILY [facility] Last Admin: 12/10/21 08:02 Dose: 1 puff Documented by: Guaifenesin (Guaifenesin 100 Mg/5 Ml Liquid) 5 ml PO Q4H PRN PRN Reason: Cough Last Admin: 12/08/21 14:33 Dose: 5 ml Documented by: Hydroxyzine HCl (Hydroxyzine Hcl 25 Mg Tablet) 25 mg PO BEDTIME PRN PRN Reason: Anxiety Last Admin: 12/10/21 04:32 Dose: 25 mg Documented by: Hydroxyzine HCl (Hydroxyzine Hcl 25 Mg Tablet) 25 mg PO TID PRN PRN Reason: Anxiety Last Admin: 12/09/21 19:22 Dose: 25 mg Documented by: Loperamide HCl (Loperamide Hcl 2 Mg Capsule) 2 mg PO Q6H PRN PRN Reason: diarrhea Magnesium Hydroxide (Milk Of Magnesia 30 Ml Oral.Susp) 30 ml PO DAILY PRN PRN Reason: Constipation Melatonin (Melatonin 3 Mg Tablet) 3 mg PO BEDTIME [facility] Last Admin: 12/09/21 20:56 Dose: 3 mg Documented by: Metoprolol Succinate (Metoprolol Succinate Er 12.5 Mg Halftab.Er.24h) 12.5 mg PO DAILY [facility]; Protocol Last Admin: 12/10/21 08:02 Dose: 12.5 mg Documented by: Mirtazapine (Mirtazapine 15 Mg Tablet) 45 mg PO BEDTIME [facility] Last Admin: 12/09/21 20:56 Dose: 45 mg Documented by: Pravastatin Sodium (Pravastatin Sodium 20 Mg Tablet) 20 mg PO DAILY [facility] Last Admin: 12/10/21 08:02 Dose: 20 mg Documented by: Risperidone (Risperidone 1 Mg Tablet) 1 mg PO BEDTIME [facility] Last Admin: 12/09/21 20:56 Dose: 1 mg Documented by: Trazodone HCl (Trazodone Hcl 50 Mg Tablet) 50 mg PO BEDTIME PRN PRN Reason: Insomnia Last Admin: 12/06/21 03:50 Dose: 50 mg Documented by: Allergies Allergies Allergy/AdvReac Type Severity Reaction Status Date / Time adhesive AdvReac Unknown Verified 04/21/21 23:21 aspirin AdvReac Unknown Verified 04/21/21 23:20 epinephrine AdvReac Unknown Verified 04/21/21 23:21 Assessment & Plan Assessment & Plan (1) MDD (major depressive disorder), recurrent episode, moderate: Status: Acute Code(s): F33.1 - Major depressive disorder, recurrent, moderate Assessment and Plan: Presents with major depression without psychosis. Significant impact on ability to function. Stress around 's well-being and support. will discuss with primary team potential for starting ECT again. Noted hospitalist consult. No med changes for now 11/27/2021 will discuss with treatment team consider ECT question of recurrent depression question of addition of borderline pathology 11/28/21 Pt seen chart reviewed mood severely depressed has responded to ect but also has severe anxiety re being alone ekg rbbb Has c/o transient weakness confusion ? tia neuro consult head ct hold ect till neuro eval consider change risp to abilify 11/29/21 ect restart abilify 2 mg daily 11/30/2021 COVID positive patient on isolation hospitalist consult id. Monitor for exacerbation of symptoms so to 95% continue Abilify lower Prozac increase mirtazapine as tolerated. Hold off on ECT currently 12/01/2021 Patient seen in psychiatric follow-up patient isolation secondary to COVID has been tolerating this. No fever shortness of breath pulse oxygen remains stable. Increase Abilify to 4 mg daily ECT on hold continue to encourage coping strategies regarding managing her feelings about being isolated while at home feeling dependent on her who was in a rehab setting denies active self-harm 12/05/21 Pt without serious med consequences to covid pulse ox ok doing better with abilify taper risperadol hold off ect for now coping skills for isolation fears 12/06/2021 Patient seen in psychiatric follow-up. Patient withdrawn somewhat flatter in more depressed. Has been more ruminating again worried about what life be like without her . Abilify increased to 5 mg mirtazapine increased to 45 mg some degree of passive SI and hopelessness pleasant cooperative has good psychological understanding but remains fearful and despondent 12/07/2021 Continue medication regimen, no changes, will monitor for benefit, ECT held 12/09: Continue current regimen and plans 12/10: Continue current plans and regimen Plan This is a?75yo F with COPD, HTN, hx TIA, hx hyperCA/hyperPTH s/p PTX, hx multiple colectomies with eventual reanastomosis for multiple precancerous polyps, s/p PPM for arrhythmia, prediabetes, depression, and PTSD admitted to [facility] for SI ECT - patient has had ECT before with no previous adverse outcomes. benefits likely outweigh any risks given depression/SI. Obtain EKG prior to any planned ECT No medication reconciliation has been done at this point. COPD continue Breo, previously on spiriva but no med rec done prn albuterol HTN previously on metoprolol ? d/c due to starting clonidine follow blood pressure HLD/hx TIA - continue statin tobacco abuse - smokes 6 cig/d; declines NRT depression/PTSD - medications as per psychiatry team Thank you for allowing us to participate in the care of this patient. Attending - dr. briones I spent minutes with the patient and/or on the patient floor today, greater than?50% of which was spent counseling/coordinating care. Reason for contiued inpatient stay Substantial Risk for: other
[2021-12-10 13:00] VITALS: PULSE 61; RESP 16; TEMP 37.1; O2SAT 95
[2021-12-10 17:00] VITALS: PULSE 80; RESP 16; TEMP 36.6; O2SAT 96
[2021-12-10 21:00] VITALS: BP 133/73; PULSE 70; RESP 19; TEMP 36.3; O2SAT 95
[2021-12-10] MEDS: Mirtazapine 15 MG TABLET 45 MG PO (21:00)
[2021-12-10] MEDS: Melatonin 3 MG TABLET PO (21:00)
[2021-12-10] MEDS: risperiDONE 1 MG TABLET PO (21:00)
[2021-12-11] MEDS: Pravastatin Sodium 20 MG TABLET PO (08:08)
[2021-12-11] MEDS: FLUoxetine HCl 20 MG CAPSULE PO (08:08)
[2021-12-11] MEDS: cloNIDine HCL 0.1 MG TABLET PO ×2 (08:08→20:24)
[2021-12-11] MEDS: Metoprolol Succinate ER 12.5 MG HALFTAB.ER.24H PO (08:08)
[2021-12-11] MEDS: ARIPiprazole 5 MG TABLET PO (08:09)
[2021-12-11] MEDS: Fluticasone/Vilanterol 100/25 BLST.W.DEV 1 PUFF INHALE (08:10)
[2021-12-11 09:00] VITALS: BP 132/64; PULSE 73; RESP 17; TEMP 35.8; O2SAT 95
[2021-12-11 13:00] VITALS: BP 99/51; PULSE 73; RESP 17; TEMP 37.7; O2SAT 96
--- NOTE | 2021-12-11 13:24 | P.PNPSI_ITS ---
Subjective Subjective Date of Service: 12/11/21 Reason For Visit: depression and thoughts of Subjective Notes: Conditional Voluntary Interim History: The nursing staff reported the patient has been pleasant, cooperative, attended a few groups. Today she has of COVID-19 precautions. The nursing staff also reported that her vital signs were stable no active symptoms of cough at this moment. The social media marketing analyst reported that we will have a family meeting pretty soon to discuss discharge planning. On interview the patient denies new symptoms she is pleasant and cooperative, she is aware that her has been extubated that he is doing fine. She feels better and she doesn't want to have ECT at this moment. Mental Status Exam Mental Status Exam Patient Appearance: Well Grooomed Patient Orientation: Person and Situation Level of Consciousness: Awake Patient Behavior: Cooperative Mood Description: Withdrawn Affect Description: Constricted Patient Cognition Impaired: No Ability to Follow Directions: Good Speech Pattern: Clear Hallucinations: None Delusions: Not Present Thought Process: Linear Thought Content: positive for [place] and positive for Circumstantial Judgement: Fair Diagnostics Vital Signs (24Hr): Vital Signs - 24 hr 12/10/21 17:00 12/10/21 21:00 Temperature 97.8 F 97.3 F Pulse Rate 80 70 Respiratory Rate 16 19 Blood Pressure 133/73 Pulse Oximetry 96 95 BMI result Body Mass Index 25.9 Labs Results: 11/25/21 06:52 11/25/21 06:52 Imaging Radiology Impressions: ITS Impressions Head CT 11/28/21 20:53 IMPRESSION: No acute intracranial process seen Carotid Doppler Study 11/29/21 11:47 IMPRESSION: 1. RIGHT: Minimal, non-hemodynamically significant stenosis of the proximal right internal carotid artery corresponding to a 0-49% stenosis by velocity criteria. 2. LEFT: Minimal, non-hemodynamically significant stenosis of the proximal left internal carotid artery corresponding to a 0-49% stenosis by velocity criteria. Medications Medications Current Medications Acetaminophen (Acetaminophen 325 Mg Tablet) 650 mg PO Q6H PRN PRN Reason: Headache/Pain Mild Scale (1-3) Last Admin: 12/09/21 15:59 Dose: 650 mg Documented by: Al Hydroxide/Mg Hydroxide (Magnesium Hydrox/Alum Hydrox 30 Ml Oral.Susp) 30 ml PO Q6H PRN PRN Reason: Heartburn/Nausea Albuterol Sulfate (Albuterol Sulfate 90 Mcg 8 Gm Inhaler) 2 puff INHALE RQ4H PRN PRN Reason: shortness of breath or wheezin Last Admin: 12/03/21 09:16 Dose: 2 puff Documented by: Aripiprazole (Aripiprazole 5 Mg Tablet) 5 mg PO DAILY [facility] Last Admin: 12/11/21 08:09 Dose: 5 mg Documented by: Clonidine HCl (Clonidine Hcl 0.1 Mg Tablet) 0.1 mg PO BID [facility]; Protocol Last Admin: 12/11/21 08:08 Dose: 0.1 mg Documented by: Fluoxetine HCl (Fluoxetine Hcl 20 Mg Capsule) 20 mg PO DAILY [facility] Last Admin: 12/11/21 08:08 Dose: 20 mg Documented by: Fluticasone/Vilanterol (Fluticasone/Vilanterol 100/25 Blst.W.Dev) 1 puff INHALE RDAILY [facility] Last Admin: 12/11/21 08:10 Dose: 1 puff Documented by: Guaifenesin (Guaifenesin 100 Mg/5 Ml Liquid) 5 ml PO Q4H PRN PRN Reason: Cough Last Admin: 12/08/21 14:33 Dose: 5 ml Documented by: Hydroxyzine HCl (Hydroxyzine Hcl 25 Mg Tablet) 25 mg PO BEDTIME PRN PRN Reason: Anxiety Last Admin: 12/10/21 04:32 Dose: 25 mg Documented by: Hydroxyzine HCl (Hydroxyzine Hcl 25 Mg Tablet) 25 mg PO TID PRN PRN Reason: Anxiety Last Admin: 12/09/21 19:22 Dose: 25 mg Documented by: Loperamide HCl (Loperamide Hcl 2 Mg Capsule) 2 mg PO Q6H PRN PRN Reason: diarrhea Magnesium Hydroxide (Milk Of Magnesia 30 Ml Oral.Susp) 30 ml PO DAILY PRN PRN Reason: Constipation Melatonin (Melatonin 3 Mg Tablet) 3 mg PO BEDTIME [facility] Last Admin: 12/10/21 21:00 Dose: 3 mg Documented by: Metoprolol Succinate (Metoprolol Succinate Er 12.5 Mg Halftab.Er.24h) 12.5 mg PO DAILY [facility]; Protocol Last Admin: 12/11/21 08:08 Dose: 12.5 mg Documented by: Mirtazapine (Mirtazapine 15 Mg Tablet) 45 mg PO BEDTIME [facility] Last Admin: 12/10/21 21:00 Dose: 45 mg Documented by: Pravastatin Sodium (Pravastatin Sodium 20 Mg Tablet) 20 mg PO DAILY [facility] Last Admin: 12/11/21 08:08 Dose: 20 mg Documented by: Risperidone (Risperidone 1 Mg Tablet) 1 mg PO BEDTIME [facility] Last Admin: 12/10/21 21:00 Dose: 1 mg Documented by: Trazodone HCl (Trazodone Hcl 50 Mg Tablet) 50 mg PO BEDTIME PRN PRN Reason: Insomnia Last Admin: 12/06/21 03:50 Dose: 50 mg Documented by: Allergies Allergies Allergy/AdvReac Type Severity Reaction Status Date / Time adhesive AdvReac Unknown Verified 04/21/21 23:21 aspirin AdvReac Unknown Verified 04/21/21 23:20 epinephrine AdvReac Unknown Verified 04/21/21 23:21 Assessment & Plan Assessment & Plan (1) MDD (major depressive disorder), recurrent episode, moderate: Status: Acute Code(s): F33.1 - Major depressive disorder, recurrent, moderate Assessment and Plan: Presents with major depression without psychosis. Significant impact on ability to function. Stress around 's well-being and support. will discuss with primary team potential for starting ECT again. Noted hospitalist consult. No med changes for now 11/27/2021 will discuss with treatment team consider ECT question of recurrent depression question of addition of borderline pathology 11/28/21 Pt seen chart reviewed mood severely depressed has responded to ect but also has severe anxiety re being alone ekg rbbb Has c/o transient weakness confusion ? tia neuro consult head ct hold ect till neuro eval consider change risp to abilify 11/29/21 ect restart abilify 2 mg daily 11/30/2021 COVID positive patient on isolation hospitalist consult id. Monitor for exacerbation of symptoms so to 95% continue Abilify lower Prozac increase mirtazapine as tolerated. Hold off on ECT currently 12/01/2021 Patient seen in psychiatric follow-up patient isolation secondary to COVID has been tolerating this. No fever shortness of breath pulse oxygen remains stable. Increase Abilify to 4 mg daily ECT on hold continue to encourage coping strategies regarding managing her feelings about being isolated while at home feeling dependent on her who was in a rehab setting denies active self- harm 12/05/21 Pt without serious med consequences to covid pulse ox ok doing better with abilify taper risperadol hold off ect for now coping skills for isolation fears 12/06/2021 Patient seen in psychiatric follow-up. Patient withdrawn somewhat flatter in more depressed. Has been more ruminating again worried about what life be like without her . Abilify increased to 5 mg mirtazapine increased to 45 mg some degree of passive SI and hopelessness pleasant cooperative has good psychological understanding but remains fearful and despondent 12/07/2021 Continue medication regimen, no changes, will monitor for benefit, ECT held 12/09: Continue current regimen and plans 12/10: Continue current plans and regimen. 12/11: Continue current plans and regimen Plan This is a?75yo F with COPD, HTN, hx TIA, hx hyperCA/hyperPTH s/p PTX, hx multiple colectomies with eventual reanastomosis for multiple precancerous polyps, s/p PPM for arrhythmia, prediabetes, depression, and PTSD admitted to [facility] for SI ECT - patient has had ECT before with no previous adverse outcomes. benefits likely outweigh any risks given depression/SI. Obtain EKG prior to any planned ECT No medication reconciliation has been done at this point. COPD continue Breo, previously on spiriva but no med rec done prn albuterol HTN previously on metoprolol ? d/c due to starting clonidine follow blood pressure HLD/hx TIA - continue statin tobacco abuse - smokes 6 cig/d; declines NRT depression/PTSD - medications as per psychiatry team Thank you for allowing us to participate in the care of this patient. Attending - dr. briones I spent __20____ minutes with the patient and/or on the patient floor today, greater than?50% of which was spent counseling/coordinating care. Reason for contiued inpatient stay Substantial Risk for: inability to function, rapid decompensation and med/psych decompensation
[2021-12-11 17:00] VITALS: BP 109/53; PULSE 71; RESP 18; TEMP 36.2; O2SAT 94
[2021-12-11 20:05] VITALS: BP 132/71; PULSE 77; RESP 17; TEMP 36.3; O2SAT 95
[2021-12-11] MEDS: risperiDONE 1 MG TABLET PO (20:23)
[2021-12-11] MEDS: hydrOXYzine HCL 25 MG TABLET PO (20:23)
[2021-12-11] MEDS: Mirtazapine 15 MG TABLET 45 MG PO (20:24)
[2021-12-11] MEDS: Melatonin 3 MG TABLET PO (20:25)
[2021-12-12] MEDS: Fluticasone/Vilanterol 100/25 BLST.W.DEV 1 PUFF INHALE (08:13)
[2021-12-12] MEDS: ARIPiprazole 5 MG TABLET PO (08:13)
[2021-12-12] MEDS: FLUoxetine HCl 20 MG CAPSULE PO (08:14)
[2021-12-12] MEDS: cloNIDine HCL 0.1 MG TABLET PO ×2 (08:14→20:04)
[2021-12-12] MEDS: Metoprolol Succinate ER 12.5 MG HALFTAB.ER.24H PO (08:14)
[2021-12-12] MEDS: Pravastatin Sodium 20 MG TABLET PO (08:14)
[2021-12-12 09:00] VITALS: BP 140/65; PULSE 73; RESP 17; TEMP 36.3; O2SAT 95
--- NOTE | 2021-12-12 15:22 | HO.PSYCHPN ---
Subjective Subjective Date of Service: 12/12/21 Reason For Visit: depression and thoughts of Subjective Notes: Conditional Voluntary Interim History: The nursing reported the patient has been isolative in her room. The nursing staff of the [address] [place] [id number] reported that the patient verbalized suicidal ideation. She was being telling us that she was doing well but she does not want to be discharged and be alone without her . We had a family meeting with her daughter and she stated that she does not feel suicidal here, she feels safe in this unit but she states that she is scared to go back to her home. She also admitted mood lability. We discussed risks, benefits, side-effects and alternatives and she agreed to titrate Abilify is a mood stabilizer. Mental Status Exam Mental Status Exam Patient Appearance: Well Grooomed Patient Orientation: Person and Situation Level of Consciousness: Awake Patient Behavior: Cooperative Mood Description: Withdrawn Affect Description: Constricted Patient Cognition Impaired: No Ability to Follow Directions: Good Speech Pattern: Clear Hallucinations: None Delusions: Not Present Thought Process: Linear Thought Content: positive for Circumstantial Depressive Symptoms: Increased Anxiety Judgement: Fair Diagnostics Vital Signs (24Hr): Vital Signs - 24 hr 12/11/21 17:00 12/11/21 20:05 12/12/21 09:00 Temperature 97.2 F 97.4 F 97.4 F Pulse Rate 71 77 73 Respiratory Rate 18 17 17 Blood Pressure 109/53 L 132/71 140/65 H Pulse Oximetry 94 95 95 BMI result Body Mass Index 25.9 Labs Results: 11/25/21 06:52 11/25/21 06:52 Imaging Radiology Impressions: ITS Impressions Head CT 11/28/21 20:53 IMPRESSION: No acute intracranial process seen Carotid Doppler Study 11/29/21 11:47 IMPRESSION: 1. RIGHT: Minimal, non-hemodynamically significant stenosis of the proximal right internal carotid artery corresponding to a 0-49% stenosis by velocity criteria. 2. LEFT: Minimal, non-hemodynamically significant stenosis of the proximal left internal carotid artery corresponding to a 0-49% stenosis by velocity criteria. Medications Medications Current Medications Acetaminophen (Acetaminophen 325 Mg Tablet) 650 mg PO Q6H PRN PRN Reason: Headache/Pain Mild Scale (1-3) Last Admin: 12/09/21 15:59 Dose: 650 mg Documented by: Al Hydroxide/Mg Hydroxide (Magnesium Hydrox/Alum Hydrox 30 Ml Oral.Susp) 30 ml PO Q6H PRN PRN Reason: Heartburn/Nausea Albuterol Sulfate (Albuterol Sulfate 90 Mcg 8 Gm Inhaler) 2 puff INHALE RQ4H PRN PRN Reason: shortness of breath or wheezin Last Admin: 12/03/21 09:16 Dose: 2 puff Documented by: Aripiprazole (Aripiprazole 5 Mg Tablet) 5 mg PO DAILY [facility] Last Admin: 12/12/21 08:13 Dose: 5 mg Documented by: Clonidine HCl (Clonidine Hcl 0.1 Mg Tablet) 0.1 mg PO BID [facility]; Protocol Last Admin: 12/12/21 08:14 Dose: 0.1 mg Documented by: Fluoxetine HCl (Fluoxetine Hcl 20 Mg Capsule) 20 mg PO DAILY [facility] Last Admin: 12/12/21 08:14 Dose: 20 mg Documented by: Fluticasone/Vilanterol (Fluticasone/Vilanterol 100/25 Blst.W.Dev) 1 puff INHALE RDAILY [facility] Last Admin: 12/12/21 08:13 Dose: 1 puff Documented by: Guaifenesin (Guaifenesin 100 Mg/5 Ml Liquid) 5 ml PO Q4H PRN PRN Reason: Cough Last Admin: 12/08/21 14:33 Dose: 5 ml Documented by: Hydroxyzine HCl (Hydroxyzine Hcl 25 Mg Tablet) 25 mg PO BEDTIME PRN PRN Reason: Anxiety Last Admin: 12/11/21 20:23 Dose: 25 mg Documented by: Hydroxyzine HCl (Hydroxyzine Hcl 25 Mg Tablet) 25 mg PO TID PRN PRN Reason: Anxiety Last Admin: 12/09/21 19:22 Dose: 25 mg Documented by: Loperamide HCl (Loperamide Hcl 2 Mg Capsule) 2 mg PO Q6H PRN PRN Reason: diarrhea Magnesium Hydroxide (Milk Of Magnesia 30 Ml Oral.Susp) 30 ml PO DAILY PRN PRN Reason: Constipation Melatonin (Melatonin 3 Mg Tablet) 3 mg PO BEDTIME [facility] Last Admin: 12/11/21 20:25 Dose: 3 mg Documented by: Metoprolol Succinate (Metoprolol Succinate Er 12.5 Mg Halftab.Er.24h) 12.5 mg PO DAILY [facility]; Protocol Last Admin: 06/07/22 08:14 Dose: 12.5 mg Documented by: Mirtazapine (Mirtazapine 15 Mg Tablet) 45 mg PO BEDTIME [facility] Last Admin: 12/11/21 20:24 Dose: 45 mg Documented by: Pravastatin Sodium (Pravastatin Sodium 20 Mg Tablet) 20 mg PO DAILY [facility] Last Admin: 12/12/21 08:14 Dose: 20 mg Documented by: Risperidone (Risperidone 1 Mg Tablet) 1 mg PO BEDTIME [facility] Last Admin: 12/11/21 20:23 Dose: 1 mg Documented by: Trazodone HCl (Trazodone Hcl 50 Mg Tablet) 50 mg PO BEDTIME PRN PRN Reason: Insomnia Last Admin: 12/06/21 03:50 Dose: 50 mg Documented by: Allergies Allergies Allergy/AdvReac Type Severity Reaction Status Date / Time adhesive AdvReac Unknown Verified 04/21/21 23:21 aspirin AdvReac Unknown Verified 04/21/21 23:20 epinephrine AdvReac Unknown Verified 04/21/21 23:21 Assessment & Plan Assessment & Plan (1) MDD (major depressive disorder), recurrent episode, moderate: Status: Acute Code(s): F33.1 - Major depressive disorder, recurrent, moderate Assessment and Plan: Presents with major depression without psychosis. Significant impact on ability to function. Stress around 's well-being and support. will discuss with primary team potential for starting ECT again. Noted hospitalist consult. No med changes for now 11/27/2021 will discuss with treatment team consider ECT question of recurrent depression question of addition of borderline pathology 11/28/21 Pt seen chart reviewed mood severely depressed has responded to ect but also has severe anxiety re being alone ekg rbbb Has c/o transient weakness confusion ? tia neuro consult head ct hold ect till neuro eval consider change risp to abilify 11/29/21 ect restart abilify 2 mg daily 11/30/2021 COVID positive patient on isolation hospitalist consult id. Monitor for exacerbation of symptoms so to 95% continue Abilify lower Prozac increase mirtazapine as tolerated. Hold off on ECT currently 12/01/2021 Patient seen in psychiatric follow-up patient isolation secondary to COVID has been tolerating this. No fever shortness of breath pulse oxygen remains stable. Increase Abilify to 4 mg daily ECT on hold continue to encourage coping strategies regarding managing her feelings about being isolated while at home feeling dependent on her who was in a rehab setting denies active self-harm 12/05/21 Pt without serious med consequences to covid pulse ox ok doing better with abilify taper risperadol hold off ect for now coping skills for isolation fears 12/06/2021 Patient seen in psychiatric follow-up. Patient withdrawn somewhat flatter in more depressed. Has been more ruminating again worried about what life be like without her . Abilify increased to 5 mg mirtazapine increased to 45 mg some degree of passive SI and hopelessness pleasant cooperative has good psychological understanding but remains fearful and despondent 12/07/2021 Continue medication regimen, no changes, will monitor for benefit, ECT held 12/09: Continue current regimen and plans 12/10: Continue current plans and regimen. 12/11: Continue current plans and regimen. 12/12 Increase Abilify up to 5 mg po daily. Plan This is a?75yo F with COPD, HTN, hx TIA, hx hyperCA/hyperPTH s/p PTX, hx multiple colectomies with eventual reanastomosis for multiple precancerous polyps, s/p PPM for arrhythmia, prediabetes, depression, and PTSD admitted to [facility] for SI ECT - patient has had ECT before with no previous adverse outcomes. benefits likely outweigh any risks given depression/SI. Obtain EKG prior to any planned ECT No medication reconciliation has been done at this point. COPD continue Breo, previously on spiriva but no med rec done prn albuterol HTN previously on metoprolol ? d/c due to starting clonidine follow blood pressure HLD/hx TIA - continue statin tobacco abuse - smokes 6 cig/d; declines NRT depression/PTSD - medications as per psychiatry team Thank you for allowing us to participate in the care of this patient. Attending - dr. briones I spent ___20___ minutes with the patient and/or on the patient floor today, greater than?50% of which was spent counseling/coordinating care. Reason for contiued inpatient stay Substantial Risk for: inability to function, rapid decompensation and med/psych decompensation
[2021-12-12 17:00] VITALS: BP 140/68; PULSE 80; TEMP 36.7; O2SAT 95
[2021-12-12] MEDS: Mirtazapine 15 MG TABLET 45 MG PO (20:04)
[2021-12-12] MEDS: risperiDONE 1 MG TABLET PO (20:04)
[2021-12-12] MEDS: Melatonin 3 MG TABLET PO (20:04)
[2021-12-12 21:00] VITALS: BP 141/83; PULSE 64; RESP 16; TEMP 37.1; O2SAT 95
[2021-12-13] MEDS: hydrOXYzine HCL 25 MG TABLET PO ×2 (03:02→20:56)
[2021-12-13] MEDS: traZODone HCL 50 MG TABLET PO (03:02)
[2021-12-13] MEDS: cloNIDine HCL 0.1 MG TABLET PO ×2 (08:35→20:50)
[2021-12-13] MEDS: Fluticasone/Vilanterol 100/25 BLST.W.DEV 1 PUFF INHALE (08:35)
[2021-12-13] MEDS: Metoprolol Succinate ER 12.5 MG HALFTAB.ER.24H PO (08:35)
[2021-12-13] MEDS: FLUoxetine HCl 20 MG CAPSULE PO (08:35)
[2021-12-13] MEDS: ARIPiprazole 5 MG TABLET PO (08:35)
[2021-12-13] MEDS: Pravastatin Sodium 20 MG TABLET PO (08:35)
[2021-12-13 08:45] VITALS: BP 146/75; PULSE 72; RESP 16; TEMP 36.3; O2SAT 99
--- NOTE | 2021-12-13 13:49 | HO.PSYCHPN ---
Subjective Subjective Date of Service: 12/13/21 Reason For Visit: depression and thoughts of Subjective Notes: Conditional Voluntary Interim History: the nursing staff reported the patient has verbalized that she does not feel ready for discharge. She woke up today at 03:00 o'clock in the morning needed. Medication to go back to sleep. Yesterday with have a family meeting with her daughter and we discussed aftercare. On interview the patient denies new symptoms but she reports that she is chronically dysphoric. She is willing to wait effect of Abilify to see if she will need ECT next week. Mental Status Exam Mental Status Exam Patient Appearance: Well Grooomed Patient Orientation: Person and Situation Level of Consciousness: Awake Patient Behavior: Cooperative Mood Description: Suspicious Affect Description: Labile Patient Cognition Impaired: No Ability to Follow Directions: Good Speech Pattern: Clear Hallucinations: None Delusions: Not Present Thought Process: Distracted and Linear Thought Content: positive for [place] and positive for Poverty of Content Judgement: Fair Diagnostics Vital Signs (24Hr): Vital Signs - 24 hr 12/12/21 17:00 12/12/21 21:00 12/13/21 08:45 Temperature 98.0 F 98.8 F 97.4 F Pulse Rate 80 64 72 Respiratory Rate 16 16 Blood Pressure 140/68 H 141/83 H 146/75 H Pulse Oximetry 95 95 99 BMI result Body Mass Index 25.9 Labs Results: 11/25/21 06:52 11/25/21 06:52 Imaging Radiology Impressions: ITS Impressions Head CT 11/28/21 20:53 IMPRESSION: No acute intracranial process seen Carotid Doppler Study 11/29/21 11:47 IMPRESSION: 1. RIGHT: Minimal, non-hemodynamically significant stenosis of the proximal right internal carotid artery corresponding to a 0-49% stenosis by velocity criteria. 2. LEFT: Minimal, non-hemodynamically significant stenosis of the proximal left internal carotid artery corresponding to a 0-49% stenosis by velocity criteria. Medications Medications Current Medications Acetaminophen (Acetaminophen 325 Mg Tablet) 650 mg PO Q6H PRN PRN Reason: Headache/Pain Mild Scale (1-3) Last Admin: 12/09/21 15:59 Dose: 650 mg Al Hydroxide/Mg Hydroxide (Magnesium Hydrox/Alum Hydrox 30 Ml Oral.Susp) 30 ml PO Q6H PRN PRN Reason: Heartburn/Nausea Albuterol Sulfate (Albuterol Sulfate 90 Mcg 8 Gm Inhaler) 2 puff INHALE RQ4H PRN PRN Reason: shortness of breath or wheezin Last Admin: 12/03/21 09:16 Dose: 2 puff Aripiprazole (Aripiprazole 5 Mg Tablet) 5 mg PO DAILY [facility] Last Admin: 12/13/21 08:35 Dose: 5 mg Clonidine HCl (Clonidine Hcl 0.1 Mg Tablet) 0.1 mg PO BID [facility]; Protocol Last Admin: 12/13/21 08:35 Dose: 0.1 mg Fluoxetine HCl (Fluoxetine Hcl 20 Mg Capsule) 20 mg PO DAILY [facility] Last Admin: 12/13/21 08:35 Dose: 20 mg Fluticasone/Vilanterol (Fluticasone/Vilanterol 100/25 Blst.W.Dev) 1 puff INHALE RDAILY [facility] Last Admin: 12/13/21 08:35 Dose: 1 puff Guaifenesin (Guaifenesin 100 Mg/5 Ml Liquid) 5 ml PO Q4H PRN PRN Reason: Cough Last Admin: 12/08/21 14:33 Dose: 5 ml Hydroxyzine HCl (Hydroxyzine Hcl 25 Mg Tablet) 25 mg PO BEDTIME PRN PRN Reason: Anxiety Last Admin: 12/11/21 20:23 Dose: 25 mg Hydroxyzine HCl (Hydroxyzine Hcl 25 Mg Tablet) 25 mg PO TID PRN PRN Reason: Anxiety Last Admin: 12/13/21 03:02 Dose: 25 mg Loperamide HCl (Loperamide Hcl 2 Mg Capsule) 2 mg PO Q6H PRN PRN Reason: diarrhea Magnesium Hydroxide (Milk Of Magnesia 30 Ml Oral.Susp) 30 ml PO DAILY PRN PRN Reason: Constipation Melatonin (Melatonin 3 Mg Tablet) 3 mg PO BEDTIME [facility] Last Admin: 12/12/21 20:04 Dose: 3 mg Metoprolol Succinate (Metoprolol Succinate Er 12.5 Mg Halftab.Er.24h) 12.5 mg PO DAILY [facility]; Protocol Last Admin: 12/13/21 08:35 Dose: 12.5 mg Mirtazapine (Mirtazapine 15 Mg Tablet) 45 mg PO BEDTIME [facility] Last Admin: 12/12/21 20:04 Dose: 45 mg Pravastatin Sodium (Pravastatin Sodium 20 Mg Tablet) 20 mg PO DAILY [facility] Last Admin: 12/13/21 08:35 Dose: 20 mg Risperidone (Risperidone 1 Mg Tablet) 1 mg PO BEDTIME [facility] Last Admin: 12/12/21 20:04 Dose: 1 mg Trazodone HCl (Trazodone Hcl 50 Mg Tablet) 50 mg PO BEDTIME PRN PRN Reason: Insomnia Last Admin: 12/13/21 03:02 Dose: 50 mg Allergies Allergies Allergy/AdvReac Type Severity Reaction Status Date / Time adhesive AdvReac Unknown Verified 04/21/21 23:21 aspirin AdvReac Unknown Verified 04/21/21 23:20 epinephrine AdvReac Unknown Verified 04/21/21 23:21 Assessment & Plan Assessment & Plan (1) MDD (major depressive disorder), recurrent episode, moderate: Status: Acute Code(s): F33.1 - Major depressive disorder, recurrent, moderate Assessment and Plan: Presents with major depression without psychosis. Significant impact on ability to function. Stress around 's well-being and support. will discuss with primary team potential for starting ECT again. Noted hospitalist consult. No med changes for now 11/27/2021 will discuss with treatment team consider ECT question of recurrent depression question of addition of borderline pathology 11/28/21 Pt seen chart reviewed mood severely depressed has responded to ect but also has severe anxiety re being alone ekg rbbb Has c/o transient weakness confusion ? tia neuro consult head ct hold ect till neuro eval consider change risp to abilify 11/29/21 ect restart abilify 2 mg daily 11/30/2021 COVID positive patient on isolation hospitalist consult id. Monitor for exacerbation of symptoms so to 95% continue Abilify lower Prozac increase mirtazapine as tolerated. Hold off on ECT currently 12/01/2021 Patient seen in psychiatric follow-up patient isolation secondary to COVID has been tolerating this. No fever shortness of breath pulse oxygen remains stable. Increase Abilify to 4 mg daily ECT on hold continue to encourage coping strategies regarding managing her feelings about being isolated while at home feeling dependent on her who was in a rehab setting denies active self-harm 12/05/21 Pt without serious med consequences to covid pulse ox ok doing better with abilify taper risperadol hold off ect for now coping skills for isolation fears 12/06/2021 Patient seen in psychiatric follow-up. Patient withdrawn somewhat flatter in more depressed. Has been more ruminating again worried about what life be like without her . Abilify increased to 5 mg mirtazapine increased to 45 mg some degree of passive SI and hopelessness pleasant cooperative has good psychological understanding but remains fearful and despondent 12/07/2021 Continue medication regimen, no changes, will monitor for benefit, ECT held 12/09: Continue current regimen and plans 12/10: Continue current plans and regimen. 12/11: Continue current plans and regimen. 12/12 Increase Abilify up to 5 mg po daily. 12/13: Keep same treatment. Plan This is a?75yo F with COPD, HTN, hx TIA, hx hyperCA/hyperPTH s/p PTX, hx multiple colectomies with eventual reanastomosis for multiple precancerous polyps, s/p PPM for arrhythmia, prediabetes, depression, and PTSD admitted to [facility] for SI ECT - patient has had ECT before with no previous adverse outcomes. benefits likely outweigh any risks given depression/SI. Obtain EKG prior to any planned ECT No medication reconciliation has been done at this point. COPD continue Breo, previously on spiriva but no med rec done prn albuterol HTN previously on metoprolol ? d/c due to starting clonidine follow blood pressure HLD/hx TIA - continue statin tobacco abuse - smokes 6 cig/d; declines NRT depression/PTSD - medications as per psychiatry team Thank you for allowing us to participate in the care of this patient. Attending - dr. briones I spent ___20___ minutes with the patient and/or on the patient floor today, greater than?50% of which was spent counseling/coordinating care. Reason for contiued inpatient stay Substantial Risk for: inability to function, rapid decompensation and med/psych decompensation
[2021-12-13 14:00] VITALS: BP 126/60; PULSE 68; RESP 16; TEMP 36.3; O2SAT 95
[2021-12-13 18:00] VITALS: BP 137/60; PULSE 69; RESP 18; TEMP 36.2; O2SAT 95
[2021-12-13] MEDS: risperiDONE 1 MG TABLET PO (20:50)
[2021-12-13] MEDS: Mirtazapine 15 MG TABLET 45 MG PO (20:50)
[2021-12-13] MEDS: Melatonin 3 MG TABLET PO (20:50)
[2021-12-14 07:45] VITALS: BP 137/63; PULSE 64; RESP 16; TEMP 36.8; O2SAT 96
[2021-12-14] MEDS: Pravastatin Sodium 20 MG TABLET PO (08:50)
[2021-12-14] MEDS: cloNIDine HCL 0.1 MG TABLET PO ×2 (08:50→20:34)
[2021-12-14] MEDS: ARIPiprazole 5 MG TABLET PO (08:50)
[2021-12-14] MEDS: FLUoxetine HCl 20 MG CAPSULE PO (08:50)
[2021-12-14] MEDS: Fluticasone/Vilanterol 100/25 BLST.W.DEV 1 PUFF INHALE (08:51)
[2021-12-14] MEDS: Metoprolol Succinate ER 12.5 MG HALFTAB.ER.24H PO (08:51)
[2021-12-14] MEDS: hydrOXYzine HCL 25 MG TABLET PO ×2 (12:12→22:28)
[2021-12-14 13:50] VITALS: BP 130/59; PULSE 66; RESP 16; TEMP 36.5; O2SAT 94
--- NOTE | 2021-12-14 15:13 | HO.PSYCHPN ---
Subjective Subjective Date of Service: 12/14/21 Reason For Visit: depression and thoughts of Subjective Notes: Conditional Voluntary Interim History: the nursing staff reported the patient has been fully compliant with treatment. She has been a stable reports that increase of Abilify has helped her. We will observe he will need to increased or at ECT Mental Status Exam Mental Status Exam Patient Appearance: Well Grooomed Patient Orientation: Person and Situation Level of Consciousness: Appropriate Patient Behavior: Cooperative Mood Description: Constricted Affect Description: Constricted Patient Cognition Impaired: Yes Ability to Follow Directions: Good Speech Pattern: Clear Hallucinations: None Delusions: Paranoid Ideation Thought Process: Distracted Thought Content: positive for Circumstantial Judgement: Fair Diagnostics Vital Signs (24Hr): Vital Signs - 24 hr 12/13/21 18:00 12/14/21 07:45 12/14/21 13:50 Temperature 97.1 F 98.3 F 97.7 F Pulse Rate 69 64 66 Respiratory Rate 18 16 16 Blood Pressure 137/60 137/63 130/59 L Pulse Oximetry 95 96 94 BMI result Body Mass Index 25.9 Labs Results: 11/25/21 06:52 11/25/21 06:52 Imaging Radiology Impressions: ITS Impressions Head CT 11/28/21 20:53 IMPRESSION: No acute intracranial process seen Carotid Doppler Study 11/29/21 11:47 IMPRESSION: 1. RIGHT: Minimal, non-hemodynamically significant stenosis of the proximal right internal carotid artery corresponding to a 0-49% stenosis by velocity criteria. 2. LEFT: Minimal, non-hemodynamically significant stenosis of the proximal left internal carotid artery corresponding to a 0-49% stenosis by velocity criteria. Medications Medications Current Medications Acetaminophen (Acetaminophen 325 Mg Tablet) 650 mg PO Q6H PRN PRN Reason: Headache/Pain Mild Scale (1-3) Last Admin: 12/09/21 15:59 Dose: 650 mg Al Hydroxide/Mg Hydroxide (Magnesium Hydrox/Alum Hydrox 30 Ml Oral.Susp) 30 ml PO Q6H PRN PRN Reason: Heartburn/Nausea Albuterol Sulfate (Albuterol Sulfate 90 Mcg 8 Gm Inhaler) 2 puff INHALE RQ4H PRN PRN Reason: shortness of breath or wheezin Last Admin: 12/03/21 09:16 Dose: 2 puff Aripiprazole (Aripiprazole 5 Mg Tablet) 5 mg PO DAILY [facility] Last Admin: 12/14/21 08:50 Dose: 5 mg Clonidine HCl (Clonidine Hcl 0.1 Mg Tablet) 0.1 mg PO BID [facility]; Protocol Last Admin: 12/14/21 08:50 Dose: 0.1 mg Fluoxetine HCl (Fluoxetine Hcl 20 Mg Capsule) 20 mg PO DAILY [facility] Last Admin: 12/14/21 08:50 Dose: 20 mg Fluticasone/Vilanterol (Fluticasone/Vilanterol 100/25 Blst.W.Dev) 1 puff INHALE RDAILY [facility] Last Admin: 12/14/21 08:51 Dose: 1 puff Guaifenesin (Guaifenesin 100 Mg/5 Ml Liquid) 5 ml PO Q4H PRN PRN Reason: Cough Last Admin: 12/08/21 14:33 Dose: 5 ml Hydroxyzine HCl (Hydroxyzine Hcl 25 Mg Tablet) 25 mg PO BEDTIME PRN PRN Reason: Anxiety Last Admin: 12/13/21 20:56 Dose: 25 mg Hydroxyzine HCl (Hydroxyzine Hcl 25 Mg Tablet) 25 mg PO TID PRN PRN Reason: Anxiety Last Admin: 12/14/21 12:12 Dose: 25 mg Loperamide HCl (Loperamide Hcl 2 Mg Capsule) 2 mg PO Q6H PRN PRN Reason: diarrhea Magnesium Hydroxide (Milk Of Magnesia 30 Ml Oral.Susp) 30 ml PO DAILY PRN PRN Reason: Constipation Melatonin (Melatonin 3 Mg Tablet) 3 mg PO BEDTIME [facility] Last Admin: 12/13/21 20:50 Dose: 3 mg Metoprolol Succinate (Metoprolol Succinate Er 12.5 Mg Halftab.Er.24h) 12.5 mg PO DAILY [facility]; Protocol Last Admin: 12/14/21 08:51 Dose: 12.5 mg Mirtazapine (Mirtazapine 15 Mg Tablet) 45 mg PO BEDTIME [facility] Last Admin: 12/13/21 20:50 Dose: 45 mg Pravastatin Sodium (Pravastatin Sodium 20 Mg Tablet) 20 mg PO DAILY [facility] Last Admin: 12/14/21 08:50 Dose: 20 mg Risperidone (Risperidone 1 Mg Tablet) 1 mg PO BEDTIME [facility] Last Admin: 12/13/21 20:50 Dose: 1 mg Trazodone HCl (Trazodone Hcl 50 Mg Tablet) 50 mg PO BEDTIME PRN PRN Reason: Insomnia Last Admin: 12/13/21 03:02 Dose: 50 mg Allergies Allergies Allergy/AdvReac Type Severity Reaction Status Date / Time adhesive AdvReac Unknown Verified 04/21/21 23:21 aspirin AdvReac Unknown Verified 04/21/21 23:20 epinephrine AdvReac Unknown Verified 04/21/21 23:21 Assessment & Plan Assessment & Plan (1) MDD (major depressive disorder), recurrent episode, moderate: Status: Acute Code(s): F33.1 - Major depressive disorder, recurrent, moderate Assessment and Plan: Presents with major depression without psychosis. Significant impact on ability to function. Stress around 's well-being and support. will discuss with primary team potential for starting ECT again. Noted hospitalist consult. No med changes for now 11/27/2021 will discuss with treatment team consider ECT question of recurrent depression question of addition of borderline pathology 11/28/21 Pt seen chart reviewed mood severely depressed has responded to ect but also has severe anxiety re being alone ekg rbbb Has c/o transient weakness confusion ? tia neuro consult head ct hold ect till neuro eval consider change risp to abilify 11/29/21 ect restart abilify 2 mg daily 11/30/2021 COVID positive patient on isolation hospitalist consult id. Monitor for exacerbation of symptoms so to 95% continue Abilify lower Prozac increase mirtazapine as tolerated. Hold off on ECT currently 12/01/2021 Patient seen in psychiatric follow-up patient isolation secondary to COVID has been tolerating this. No fever shortness of breath pulse oxygen remains stable. Increase Abilify to 4 mg daily ECT on hold continue to encourage coping strategies regarding managing her feelings about being isolated while at home feeling dependent on her who was in a rehab setting denies active self-harm 12/05/21 Pt without serious med consequences to covid pulse ox ok doing better with abilify taper risperadol hold off ect for now coping skills for isolation fears 12/06/2021 Patient seen in psychiatric follow-up. Patient withdrawn somewhat flatter in more depressed. Has been more ruminating again worried about what life be like without her . Abilify increased to 5 mg mirtazapine increased to 45 mg some degree of passive SI and hopelessness pleasant cooperative has good psychological understanding but remains fearful and despondent 12/07/2021 Continue medication regimen, no changes, will monitor for benefit, ECT held 12/09: Continue current regimen and plans 12/10: Continue current plans and regimen. 12/11: Continue current plans and regimen. 12/12 Increase Abilify up to 5 mg po daily. 12/13: Keep same treatment. 12/14: Keep same treatment. Plan This is a?75yo F with COPD, HTN, hx TIA, hx hyperCA/hyperPTH s/p PTX, hx multiple colectomies with eventual reanastomosis for multiple precancerous polyps, s/p PPM for arrhythmia, prediabetes, depression, and PTSD admitted to [facility] for SI ECT - patient has had ECT before with no previous adverse outcomes. benefits likely outweigh any risks given depression/SI. Obtain EKG prior to any planned ECT No medication reconciliation has been done at this point. COPD continue Breo, previously on spiriva but no med rec done prn albuterol HTN previously on metoprolol ? d/c due to starting clonidine follow blood pressure HLD/hx TIA - continue statin tobacco abuse - smokes 6 cig/d; declines NRT depression/PTSD - medications as per psychiatry team Thank you for allowing us to participate in the care of this patient. Attending - dr. briones I spent __20____ minutes with the patient and/or on the patient floor today, greater than?50% of which was spent counseling/coordinating care. Reason for contiued inpatient stay Substantial Risk for: inability to function, rapid decompensation and med/psych decompensation
[2021-12-14 17:00] VITALS: BP 124/58; PULSE 60; RESP 14; TEMP 36.4; O2SAT 96
[2021-12-14] MEDS: Mirtazapine 15 MG TABLET 45 MG PO (20:35)
[2021-12-14] MEDS: risperiDONE 1 MG TABLET PO (20:35)
[2021-12-14] MEDS: Melatonin 3 MG TABLET PO (20:35)
[2021-12-15 05:00] VITALS: BP 110/52; PULSE 62; RESP 18; TEMP 36.2; O2SAT 94
[2021-12-15] MEDS: Fluticasone/Vilanterol 100/25 BLST.W.DEV 1 PUFF INHALE (07:47)
[2021-12-15] MEDS: ARIPiprazole 5 MG TABLET PO (07:48)
[2021-12-15] MEDS: FLUoxetine HCl 20 MG CAPSULE PO (07:48)
[2021-12-15] MEDS: Metoprolol Succinate ER 12.5 MG HALFTAB.ER.24H PO (07:48)
[2021-12-15] MEDS: cloNIDine HCL 0.1 MG TABLET PO ×2 (07:49→20:41)
[2021-12-15] MEDS: Pravastatin Sodium 20 MG TABLET PO (07:49)
[2021-12-15 07:52] VITALS: BP 128/73; PULSE 61; RESP 15; TEMP 36.3; O2SAT 96
--- NOTE | 2021-12-15 11:41 | P.PNPSI_ITS ---
Subjective Subjective Date of Service: 12/15/21 Reason For Visit: depression and thoughts of Subjective Notes: Conditional Voluntary Interim History: the nursing staff reported the patient has been fully compliant with treatment, she reports that she is feeling better. Today we interview with the manager social responsibility she reports that she is feeling safe, we will discuss of discharge planning next week. Mental Status Exam Mental Status Exam Patient Appearance: Well Grooomed Patient Orientation: Person and Situation Level of Consciousness: Awake Patient Behavior: Cooperative Mood Description: Withdrawn Affect Description: Constricted Patient Cognition Impaired: No Ability to Follow Directions: Good Speech Pattern: Clear Hallucinations: None Delusions: Not Present Thought Process: Distracted Thought Content: positive for Circumstantial Judgement: Fair Diagnostics Vital Signs (24Hr): Vital Signs - 24 hr 12/14/21 13:50 12/14/21 17:00 12/15/21 05:00 Temperature 97.7 F 97.6 F 97.2 F Pulse Rate 66 60 62 Respiratory Rate 16 14 18 Blood Pressure 130/59 L 124/58 L 110/52 L Pulse Oximetry 94 96 94 12/15/21 07:52 Temperature 97.3 F Pulse Rate 61 Respiratory Rate 15 Blood Pressure 128/73 Pulse Oximetry 96 BMI result Body Mass Index 25.9 Labs Results: 11/25/21 06:52 11/25/21 06:52 Imaging Radiology Impressions: ITS Impressions Head CT 11/28/21 20:53 IMPRESSION: No acute intracranial process seen Carotid Doppler Study 11/29/21 11:47 IMPRESSION: 1. RIGHT: Minimal, non-hemodynamically significant stenosis of the proximal right internal carotid artery corresponding to a 0-49% stenosis by velocity criteria. 2. LEFT: Minimal, non-hemodynamically significant stenosis of the proximal left internal carotid artery corresponding to a 0-49% stenosis by velocity criteria. Medications Medications Current Medications Acetaminophen (Acetaminophen 325 Mg Tablet) 650 mg PO Q6H PRN PRN Reason: Headache/Pain Mild Scale (1-3) Last Admin: 12/09/21 15:59 Dose: 650 mg Al Hydroxide/Mg Hydroxide (Magnesium Hydrox/Alum Hydrox 30 Ml Oral.Susp) 30 ml PO Q6H PRN PRN Reason: Heartburn/Nausea Albuterol Sulfate (Albuterol Sulfate 90 Mcg 8 Gm Inhaler) 2 puff INHALE RQ4H PRN PRN Reason: shortness of breath or wheezin Last Admin: 12/03/21 09:16 Dose: 2 puff Aripiprazole (Aripiprazole 5 Mg Tablet) 5 mg PO DAILY [facility] Last Admin: 12/15/21 07:48 Dose: 5 mg Clonidine HCl (Clonidine Hcl 0.1 Mg Tablet) 0.1 mg PO BID [facility]; Protocol Last Admin: 12/15/21 07:49 Dose: 0.1 mg Fluoxetine HCl (Fluoxetine Hcl 20 Mg Capsule) 20 mg PO DAILY [facility] Last Admin: 12/15/21 07:48 Dose: 20 mg Fluticasone/Vilanterol (Fluticasone/Vilanterol 100/25 Blst.W.Dev) 1 puff INHALE RDAILY [facility] Last Admin: 12/15/21 07:47 Dose: 1 puff Guaifenesin (Guaifenesin 100 Mg/5 Ml Liquid) 5 ml PO Q4H PRN PRN Reason: Cough Last Admin: 12/08/21 14:33 Dose: 5 ml Hydroxyzine HCl (Hydroxyzine Hcl 25 Mg Tablet) 25 mg PO BEDTIME PRN PRN Reason: Anxiety Last Admin: 12/14/21 22:28 Dose: 25 mg Hydroxyzine HCl (Hydroxyzine Hcl 25 Mg Tablet) 25 mg PO TID PRN PRN Reason: Anxiety Last Admin: 12/14/21 12:12 Dose: 25 mg Loperamide HCl (Loperamide Hcl 2 Mg Capsule) 2 mg PO Q6H PRN PRN Reason: diarrhea Magnesium Hydroxide (Milk Of Magnesia 30 Ml Oral.Susp) 30 ml PO DAILY PRN PRN Reason: Constipation Melatonin (Melatonin 3 Mg Tablet) 3 mg PO BEDTIME [facility] Last Admin: 12/14/21 20:35 Dose: 3 mg Metoprolol Succinate (Metoprolol Succinate Er 12.5 Mg Halftab.Er.24h) 12.5 mg PO DAILY [facility]; Protocol Last Admin: 12/15/21 07:48 Dose: 12.5 mg Mirtazapine (Mirtazapine 15 Mg Tablet) 45 mg PO BEDTIME [facility] Last Admin: 12/14/21 20:35 Dose: 45 mg Pravastatin Sodium (Pravastatin Sodium 20 Mg Tablet) 20 mg PO DAILY [facility] Last Admin: 12/15/21 07:49 Dose: 20 mg Risperidone (Risperidone 1 Mg Tablet) 1 mg PO BEDTIME [facility] Last Admin: 12/14/21 20:35 Dose: 1 mg Trazodone HCl (Trazodone Hcl 50 Mg Tablet) 50 mg PO BEDTIME PRN PRN Reason: Insomnia Last Admin: 12/13/21 03:02 Dose: 50 mg Allergies Allergies Allergy/AdvReac Type Severity Reaction Status Date / Time adhesive AdvReac Unknown Verified 04/21/21 23:21 aspirin AdvReac Unknown Verified 04/21/21 23:20 epinephrine AdvReac Unknown Verified 04/21/21 23:21 Assessment & Plan Assessment & Plan (1) MDD (major depressive disorder), recurrent episode, moderate: Status: Acute Code(s): F33.1 - Major depressive disorder, recurrent, moderate Assessment and Plan: Presents with major depression without psychosis. Significant impact on ability to function. Stress around 's well-being and support. will discuss with primary team potential for starting ECT again. Noted hospitalist consult. No med changes for now 11/27/2021 will discuss with treatment team consider ECT question of recurrent depression question of addition of borderline pathology 11/28/21 Pt seen chart reviewed mood severely depressed has responded to ect but also has severe anxiety re being alone ekg rbbb Has c/o transient weakness confusion ? tia neuro consult head ct hold ect till neuro eval consider change risp to abilify 11/29/21 ect restart abilify 2 mg daily 11/30/2021 COVID positive patient on isolation hospitalist consult id. Monitor for exacerbation of symptoms so to 95% continue Abilify lower Prozac increase mirtazapine as tolerated. Hold off on ECT currently 12/01/2021 Patient seen in psychiatric follow-up patient isolation secondary to COVID has been tolerating this. No fever shortness of breath pulse oxygen remains stable. Increase Abilify to 4 mg daily ECT on hold continue to encourage coping strategies regarding managing her feelings about being isolated while at home feeling dependent on her who was in a rehab setting denies active self- harm 12/05/21 Pt without serious med consequences to covid pulse ox ok doing better with abilify taper risperadol hold off ect for now coping skills for isolation fears 12/06/2021 Patient seen in psychiatric follow-up. Patient withdrawn somewhat flatter in more depressed. Has been more ruminating again worried about what life be like without her . Abilify increased to 5 mg mirtazapine increased to 45 mg some degree of passive SI and hopelessness pleasant cooperative has good psychological understanding but remains fearful and despondent 12/07/2021 Continue medication regimen, no changes, will monitor for benefit, ECT held 12/09: Continue current regimen and plans 12/10: Continue current plans and regimen. 12/11: Continue current plans and regimen. 12/12 Increase Abilify up to 5 mg po daily. 12/13: Keep same treatment. 12/14: Keep same treatment. 12/15: Keep same treatment. Plan This is a?75yo F with COPD, HTN, hx TIA, hx hyperCA/hyperPTH s/p PTX, hx multiple colectomies with eventual reanastomosis for multiple precancerous polyps, s/p PPM for arrhythmia, prediabetes, depression, and PTSD admitted to [facility] for SI ECT - patient has had ECT before with no previous adverse outcomes. benefits likely outweigh any risks given depression/SI. Obtain EKG prior to any planned ECT No medication reconciliation has been done at this point. COPD continue Breo, previously on spiriva but no med rec done prn albuterol HTN previously on metoprolol ? d/c due to starting clonidine follow blood pressure HLD/hx TIA - continue statin tobacco abuse - smokes 6 cig/d; declines NRT depression/PTSD - medications as per psychiatry team Thank you for allowing us to participate in the care of this patient. Attending - dr. briones I spent ___20___ minutes with the patient and/or on the patient floor today, g reater than?50% of which was spent counseling/coordinating care. Reason for contiued inpatient stay Substantial Risk for: inability to function, rapid decompensation and med/psych decompensation
[2021-12-15 13:49] VITALS: BP 145/58; PULSE 66; RESP 16; TEMP 36.8; O2SAT 94
[2021-12-15 20:16] VITALS: PULSE 65; RESP 18; TEMP 36.4; O2SAT 96
[2021-12-15 20:32] VITALS: BP 139/63
[2021-12-15] MEDS: Mirtazapine 15 MG TABLET 45 MG PO (20:41)
[2021-12-15] MEDS: Melatonin 3 MG TABLET PO (20:42)
[2021-12-15] MEDS: risperiDONE 1 MG TABLET PO (20:42)
[2021-12-15] MEDS: hydrOXYzine HCL 25 MG TABLET PO (20:45)
[2021-12-16 08:00] VITALS: BP 159/70; PULSE 95; RESP 17; TEMP 36.8; O2SAT 97
[2021-12-16] MEDS: cloNIDine HCL 0.1 MG TABLET PO ×2 (08:43→21:02)
[2021-12-16] MEDS: ARIPiprazole 5 MG TABLET PO (08:43)
[2021-12-16] MEDS: FLUoxetine HCl 20 MG CAPSULE PO (08:43)
[2021-12-16] MEDS: Metoprolol Succinate ER 12.5 MG HALFTAB.ER.24H PO (08:43)
[2021-12-16] MEDS: Pravastatin Sodium 20 MG TABLET PO (08:43)
[2021-12-16] MEDS: Fluticasone/Vilanterol 100/25 BLST.W.DEV 1 PUFF INHALE (08:44)
--- NOTE | 2021-12-16 10:12 | HO.PSYCHPN ---
Subjective Subjective Date of Service: 12/16/21 Reason For Visit: depression and thoughts of Interim History: Pt reports feeling anxious. She reports her was at [facility], now transfer to [facility] care facility. She states she spoke with today and he sounded confused. Pt expresses sadness and anxiety thinking that she will be alone in her house without . She denies SI/HI. She states she is planned to be discharge early next week but now unsure of how she feels about it. Medication Compliance: Yes Side effects from medications: No Review of Systems Review of Systems Yes all other systems are reviewed and are negative Constitutional: Denies chills and Denies fever(s) Denies dizziness Cardiovascular: Denies chest pain, Denies palpitations and Denies dyspnea Respiratory: Denies cough and Denies dyspnea Gastrointestinal: Denies abdominal pain, Denies nausea and Denies vomiting Denies dizziness Endocrine: Denies palpitations Mental Status Exam Mental Status Exam Patient Appearance: Well Grooomed Patient Orientation: Person and Situation Level of Consciousness: Awake Patient Behavior: Cooperative Mood Description: Withdrawn Affect Description: Constricted Patient Cognition Impaired: No Ability to Follow Directions: Good Speech Pattern: Clear Diagnostics Vital Signs (24Hr): Vital Signs - 24 hr 12/17/21 08:00 12/17/21 20:45 Temperature 97.2 F 96.9 F Pulse Rate 63 59 Respiratory Rate 17 18 Blood Pressure 173/77 H 149/67 H Pulse Oximetry 96 96 BMI result Body Mass Index 25.9 Labs Results: 11/25/21 06:52 11/25/21 06:52 Imaging Radiology Impressions: ITS Impressions Head CT 11/28/21 20:53 IMPRESSION: No acute intracranial process seen Carotid Doppler Study 11/29/21 11:47 IMPRESSION: 1. RIGHT: Minimal, non-hemodynamically significant stenosis of the proximal right internal carotid artery corresponding to a 0-49% stenosis by velocity criteria. 2. LEFT: Minimal, non-hemodynamically significant stenosis of the proximal left internal carotid artery corresponding to a 0-49% stenosis by velocity criteria. Medications Medications Current Medications Acetaminophen (Acetaminophen 325 Mg Tablet) 650 mg PO Q6H PRN PRN Reason: Headache/Pain Mild Scale (1-3) Last Admin: 12/09/21 15:59 Dose: 650 mg Al Hydroxide/Mg Hydroxide (Magnesium Hydrox/Alum Hydrox 30 Ml Oral.Susp) 30 ml PO Q6H PRN PRN Reason: Heartburn/Nausea Albuterol Sulfate (Albuterol Sulfate 90 Mcg 8 Gm Inhaler) 2 puff INHALE RQ4H PRN PRN Reason: shortness of breath or wheezin Last Admin: 12/03/21 09:16 Dose: 2 puff Aripiprazole (Aripiprazole 5 Mg Tablet) 5 mg PO DAILY [facility] Last Admin: 12/17/21 08:32 Dose: 5 mg Clonidine HCl (Clonidine Hcl 0.1 Mg Tablet) 0.1 mg PO BID [facility]; Protocol Last Admin: 12/17/21 21:15 Dose: 0.1 mg Fluoxetine HCl (Fluoxetine Hcl 20 Mg Capsule) 20 mg PO DAILY [facility] Last Admin: 12/17/21 08:32 Dose: 20 mg Fluticasone/Vilanterol (Fluticasone/Vilanterol 100/25 Blst.W.Dev) 1 puff INHALE RDAILY [facility] Last Admin: 12/17/21 08:31 Dose: 1 puff Guaifenesin (Guaifenesin 100 Mg/5 Ml Liquid) 5 ml PO Q4H PRN PRN Reason: Cough Last Admin: 12/08/21 14:33 Dose: 5 ml Hydroxyzine HCl (Hydroxyzine Hcl 25 Mg Tablet) 25 mg PO BEDTIME PRN PRN Reason: Anxiety Last Admin: 12/17/21 21:16 Dose: 25 mg Hydroxyzine HCl (Hydroxyzine Hcl 25 Mg Tablet) 25 mg PO TID PRN PRN Reason: Anxiety Last Admin: 12/16/21 14:04 Dose: 25 mg Loperamide HCl (Loperamide Hcl 2 Mg Capsule) 2 mg PO Q6H PRN PRN Reason: diarrhea Magnesium Hydroxide (Milk Of Magnesia 30 Ml Oral.Susp) 30 ml PO DAILY PRN PRN Reason: Constipation Melatonin (Melatonin 3 Mg Tablet) 3 mg PO BEDTIME [facility] Last Admin: 12/17/21 21:16 Dose: 3 mg Metoprolol Succinate (Metoprolol Succinate Er 12.5 Mg Halftab.Er.24h) 12.5 mg PO DAILY [facility]; Protocol Last Admin: 12/17/21 08:32 Dose: 12.5 mg Mirtazapine (Mirtazapine 15 Mg Tablet) 45 mg PO BEDTIME [facility] Last Admin: 12/17/21 21:15 Dose: 45 mg Pravastatin Sodium (Pravastatin Sodium 20 Mg Tablet) 20 mg PO DAILY [facility] Last Admin: 12/17/21 08:32 Dose: 20 mg Risperidone (Risperidone 1 Mg Tablet) 1 mg PO BEDTIME [facility] Last Admin: 12/17/21 21:15 Dose: 1 mg Trazodone HCl (Trazodone Hcl 50 Mg Tablet) 50 mg PO BEDTIME PRN PRN Reason: Insomnia Last Admin: 12/13/21 03:02 Dose: 50 mg Allergies Allergies Allergy/AdvReac Type Severity Reaction Status Date / Time adhesive AdvReac Unknown Verified 04/21/21 23:21 aspirin AdvReac Unknown Verified 04/21/21 23:20 epinephrine AdvReac Unknown Verified 04/21/21 23:21 Assessment & Plan Assessment & Plan (1) MDD (major depressive disorder), recurrent episode, moderate: Status: Acute Code(s): F33.1 - Major depressive disorder, recurrent, moderate Assessment and Plan: Presents with major depression without psychosis. Significant impact on ability to function. Stress around 's well-being and support. will discuss with primary team potential for starting ECT again. Noted hospitalist consult. No med changes for now 11/27/2021 will discuss with treatment team consider ECT question of recurrent depression question of addition of borderline pathology 11/28/21 Pt seen chart reviewed mood severely depressed has responded to ect but also has severe anxiety re being alone ekg rbbb Has c/o transient weakness confusion ? tia neuro consult head ct hold ect till neuro eval consider change risp to abilify 11/29/21 ect restart abilify 2 mg daily 11/30/2021 COVID positive patient on isolation hospitalist consult id. Monitor for exacerbation of symptoms so to 95% continue Abilify lower Prozac increase mirtazapine as tolerated. Hold off on ECT currently 12/01/2021 Patient seen in psychiatric follow-up patient isolation secondary to COVID has been tolerating this. No fever shortness of breath pulse oxygen remains stable. Increase Abilify to 4 mg daily ECT on hold continue to encourage coping strategies regarding managing her feelings about being isolated while at home feeling dependent on her who was in a rehab setting denies active self-harm 12/05/21 Pt without serious med consequences to covid pulse ox ok doing better with abilify taper risperadol hold off ect for now coping skills for isolation fears 12/06/2021 Patient seen in psychiatric follow-up. Patient withdrawn somewhat flatter in more depressed. Has been more ruminating again worried about what life be like without her . Abilify increased to 5 mg mirtazapine increased to 45 mg some degree of passive SI and hopelessness pleasant cooperative has good psychological understanding but remains fearful and despondent 12/07/2021 Continue medication regimen, no changes, will monitor for benefit, ECT held 12/09: Continue current regimen and plans 12/10: Continue current plans and regimen. 12/11: Continue current plans and regimen. 12/12 Increase Abilify up to 5 mg po daily. 12/13: Keep same treatment. 12/14: Keep same treatment. 12/15: Keep same treatment. 12/16: continue current medications. Plan This is a?75yo F with COPD, HTN, hx TIA, hx hyperCA/hyperPTH s/p PTX, hx multiple colectomies with eventual reanastomosis for multiple precancerous polyps, s/p PPM for arrhythmia, prediabetes, depression, and PTSD admitted to [facility] for SI ECT - patient has had ECT before with no previous adverse outcomes. benefits likely outweigh any risks given depression/SI. Obtain EKG prior to any planned ECT No medication reconciliation has been done at this point. COPD continue Breo, previously on spiriva but no med rec done prn albuterol HTN previously on metoprolol ? d/c due to starting clonidine follow blood pressure HLD/hx TIA - continue statin tobacco abuse - smokes 6 cig/d; declines NRT depression/PTSD - medications as per psychiatry team Thank you for allowing us to participate in the care of this patient. Attending - dr. briones I spent minutes with the patient and/or on the patient floor today, greater than?50% of which was spent counseling/coordinating care. Reason for contiued inpatient stay Substantial Risk for: harm to self
[2021-12-16] MEDS: hydrOXYzine HCL 25 MG TABLET PO ×2 (14:04→21:01)
[2021-12-16 19:32] VITALS: BP 154/72; PULSE 59; RESP 16; TEMP 36.4; O2SAT 98
[2021-12-16] MEDS: Mirtazapine 15 MG TABLET 45 MG PO (21:00)
[2021-12-16] MEDS: risperiDONE 1 MG TABLET PO (21:00)
[2021-12-16] MEDS: Melatonin 3 MG TABLET PO (21:01)
[2021-12-17 08:00] VITALS: BP 173/77; PULSE 63; RESP 17; TEMP 36.2; O2SAT 96
[2021-12-17] MEDS: Fluticasone/Vilanterol 100/25 BLST.W.DEV 1 PUFF INHALE (08:31)
[2021-12-17] MEDS: Pravastatin Sodium 20 MG TABLET PO (08:32)
[2021-12-17] MEDS: Metoprolol Succinate ER 12.5 MG HALFTAB.ER.24H PO (08:32)
[2021-12-17] MEDS: cloNIDine HCL 0.1 MG TABLET PO ×2 (08:32→21:15)
[2021-12-17] MEDS: FLUoxetine HCl 20 MG CAPSULE PO (08:32)
[2021-12-17] MEDS: ARIPiprazole 5 MG TABLET PO (08:32)
--- NOTE | 2021-12-17 09:15 | HO.PSYCHPN ---
Subjective Subjective Date of Service: 12/17/21 Reason For Visit: depression and thoughts of Subjective Notes: Conditional Voluntary Interim History: Pt reports feeling less anxious. She reports sleeping and eating well. She continues to express concern about her whether or not he will return home or not. She denies SI/HI. Per nursing, pt visible on the unit. no behavioral concerns. Medication Compliance: Yes Side effects from medications: No Review of Systems Review of Systems Yes all other systems are reviewed and are negative Constitutional: Denies chills and Denies fever(s) Denies dizziness Cardiovascular: Denies chest pain, Denies palpitations and Denies dyspnea Respiratory: Denies cough and Denies dyspnea Gastrointestinal: Denies abdominal pain, Denies nausea and Denies vomiting Denies dizziness Endocrine: Denies palpitations Mental Status Exam Mental Status Exam Patient Appearance: Well Grooomed Patient Orientation: Person and Situation Level of Consciousness: Awake Patient Behavior: Cooperative Mood Description: Withdrawn Affect Description: Constricted Patient Cognition Impaired: No Ability to Follow Directions: Good Speech Pattern: Clear Diagnostics Vital Signs (24Hr): Vital Signs - 24 hr 12/17/21 08:00 12/17/21 20:45 Temperature 97.2 F 96.9 F Pulse Rate 63 59 Respiratory Rate 17 18 Blood Pressure 173/77 H 149/67 H Pulse Oximetry 96 96 BMI result Body Mass Index 25.9 Labs Results: 11/25/21 06:52 11/25/21 06:52 Imaging Radiology Impressions: ITS Impressions Head CT 11/28/21 20:53 IMPRESSION: No acute intracranial process seen Carotid Doppler Study 11/29/21 11:47 IMPRESSION: 1. RIGHT: Minimal, non-hemodynamically significant stenosis of the proximal right internal carotid artery corresponding to a 0-49% stenosis by velocity criteria. 2. LEFT: Minimal, non-hemodynamically significant stenosis of the proximal left internal carotid artery corresponding to a 0-49% stenosis by velocity criteria. Medications Medications Current Medications Acetaminophen (Acetaminophen 325 Mg Tablet) 650 mg PO Q6H PRN PRN Reason: Headache/Pain Mild Scale (1-3) Last Admin: 12/09/21 15:59 Dose: 650 mg Al Hydroxide/Mg Hydroxide (Magnesium Hydrox/Alum Hydrox 30 Ml Oral.Susp) 30 ml PO Q6H PRN PRN Reason: Heartburn/Nausea Albuterol Sulfate (Albuterol Sulfate 90 Mcg 8 Gm Inhaler) 2 puff INHALE RQ4H PRN PRN Reason: shortness of breath or wheezin Last Admin: 12/03/21 09:16 Dose: 2 puff Aripiprazole (Aripiprazole 5 Mg Tablet) 5 mg PO DAILY [facility] Last Admin: 12/17/21 08:32 Dose: 5 mg Clonidine HCl (Clonidine Hcl 0.1 Mg Tablet) 0.1 mg PO BID [facility]; Protocol Last Admin: 12/17/21 21:15 Dose: 0.1 mg Fluoxetine HCl (Fluoxetine Hcl 20 Mg Capsule) 20 mg PO DAILY [facility] Last Admin: 12/17/21 08:32 Dose: 20 mg Fluticasone/Vilanterol (Fluticasone/Vilanterol 100/25 Blst.W.Dev) 1 puff INHALE RDAILY [facility] Last Admin: 12/17/21 08:31 Dose: 1 puff Guaifenesin (Guaifenesin 100 Mg/5 Ml Liquid) 5 ml PO Q4H PRN PRN Reason: Cough Last Admin: 12/08/21 14:33 Dose: 5 ml Hydroxyzine HCl (Hydroxyzine Hcl 25 Mg Tablet) 25 mg PO BEDTIME PRN PRN Reason: Anxiety Last Admin: 12/17/21 21:16 Dose: 25 mg Hydroxyzine HCl (Hydroxyzine Hcl 25 Mg Tablet) 25 mg PO TID PRN PRN Reason: Anxiety Last Admin: 12/16/21 14:04 Dose: 25 mg Loperamide HCl (Loperamide Hcl 2 Mg Capsule) 2 mg PO Q6H PRN PRN Reason: diarrhea Magnesium Hydroxide (Milk Of Magnesia 30 Ml Oral.Susp) 30 ml PO DAILY PRN PRN Reason: Constipation Melatonin (Melatonin 3 Mg Tablet) 3 mg PO BEDTIME [facility] Last Admin: 12/17/21 21:16 Dose: 3 mg Metoprolol Succinate (Metoprolol Succinate Er 12.5 Mg Halftab.Er.24h) 12.5 mg PO DAILY [facility]; Protocol Last Admin: 12/17/21 08:32 Dose: 12.5 mg Mirtazapine (Mirtazapine 15 Mg Tablet) 45 mg PO BEDTIME [facility] Last Admin: 12/17/21 21:15 Dose: 45 mg Pravastatin Sodium (Pravastatin Sodium 20 Mg Tablet) 20 mg PO DAILY [facility] Last Admin: 06/12/22 08:32 Dose: 20 mg Risperidone (Risperidone 1 Mg Tablet) 1 mg PO BEDTIME [facility] Last Admin: 12/17/21 21:15 Dose: 1 mg Trazodone HCl (Trazodone Hcl 50 Mg Tablet) 50 mg PO BEDTIME PRN PRN Reason: Insomnia Last Admin: 12/13/21 03:02 Dose: 50 mg Allergies Allergies Allergy/AdvReac Type Severity Reaction Status Date / Time adhesive AdvReac Unknown Verified 04/21/21 23:21 aspirin AdvReac Unknown Verified 04/21/21 23:20 epinephrine AdvReac Unknown Verified 04/21/21 23:21 Assessment & Plan Assessment & Plan (1) MDD (major depressive disorder), recurrent episode, moderate: Status: Acute Code(s): F33.1 - Major depressive disorder, recurrent, moderate Assessment and Plan: Presents with major depression without psychosis. Significant impact on ability to function. Stress around 's well-being and support. will discuss with primary team potential for starting ECT again. Noted hospitalist consult. No med changes for now 11/27/2021 will discuss with treatment team consider ECT question of recurrent depression question of addition of borderline pathology 11/28/21 Pt seen chart reviewed mood severely depressed has responded to ect but also has severe anxiety re being alone ekg rbbb Has c/o transient weakness confusion ? tia neuro consult head ct hold ect till neuro eval consider change risp to abilify 11/29/21 ect restart abilify 2 mg daily 11/30/2021 COVID positive patient on isolation hospitalist consult id. Monitor for exacerbation of symptoms so to 95% continue Abilify lower Prozac increase mirtazapine as tolerated. Hold off on ECT currently 12/01/2021 Patient seen in psychiatric follow-up patient isolation secondary to COVID has been tolerating this. No fever shortness of breath pulse oxygen remains stable. Increase Abilify to 4 mg daily ECT on hold continue to encourage coping strategies regarding managing her feelings about being isolated while at home feeling dependent on her who was in a rehab setting denies active self-harm 12/05/21 Pt without serious med consequences to covid pulse ox ok doing better with abilify taper risperadol hold off ect for now coping skills for isolation fears 12/06/2021 Patient seen in psychiatric follow-up. Patient withdrawn somewhat flatter in more depressed. Has been more ruminating again worried about what life be like without her . Abilify increased to 5 mg mirtazapine increased to 45 mg some degree of passive SI and hopelessness pleasant cooperative has good psychological understanding but remains fearful and despondent 12/07/2021 Continue medication regimen, no changes, will monitor for benefit, ECT held 12/09: Continue current regimen and plans 12/10: Continue current plans and regimen. 12/11: Continue current plans and regimen. 12/12 Increase Abilify up to 5 mg po daily. 12/13: Keep same treatment. 12/14: Keep same treatment. 12/15: Keep same treatment. 12/16: continue current medications. continue current tx plan. Plan This is a?75yo F with COPD, HTN, hx TIA, hx hyperCA/hyperPTH s/p PTX, hx multiple colectomies with eventual reanastomosis for multiple precancerous polyps, s/p PPM for arrhythmia, prediabetes, depression, and PTSD admitted to [facility] for SI ECT - patient has had ECT before with no previous adverse outcomes. benefits likely outweigh any risks given depression/SI. Obtain EKG prior to any planned ECT No medication reconciliation has been done at this point. COPD continue Breo, previously on spiriva but no med rec done prn albuterol HTN previously on metoprolol ? d/c due to starting clonidine follow blood pressure HLD/hx TIA - continue statin tobacco abuse - smokes 6 cig/d; declines NRT depression/PTSD - medications as per psychiatry team Thank you for allowing us to participate in the care of this patient. Attending - dr. briones I spent minutes with the patient and/or on the patient floor today, greater than?50% of which was spent counseling/coordinating care. Reason for contiued inpatient stay Substantial Risk for: harm to self
[2021-12-17 20:45] VITALS: BP 149/67; PULSE 59; RESP 18; TEMP 36.1; O2SAT 96
[2021-12-17] MEDS: risperiDONE 1 MG TABLET PO (21:15)
[2021-12-17] MEDS: Mirtazapine 15 MG TABLET 45 MG PO (21:15)
[2021-12-17] MEDS: Melatonin 3 MG TABLET PO (21:16)
[2021-12-17] MEDS: hydrOXYzine HCL 25 MG TABLET PO (21:16)
[2021-12-18 08:00] VITALS: BP 148/78; PULSE 54; RESP 16; TEMP 36.2; O2SAT 95
[2021-12-18] MEDS: ARIPiprazole 5 MG TABLET PO (08:15)
[2021-12-18] MEDS: Fluticasone/Vilanterol 100/25 BLST.W.DEV 1 PUFF INHALE (08:15)
[2021-12-18] MEDS: FLUoxetine HCl 20 MG CAPSULE PO (08:15)
[2021-12-18] MEDS: Pravastatin Sodium 20 MG TABLET PO (08:15)
[2021-12-18] MEDS: cloNIDine HCL 0.1 MG TABLET PO ×2 (08:16→20:41)
--- NOTE | 2021-12-18 13:39 | P.PNPSI_ITS ---
Subjective Subjective Date of Service: 12/18/21 Reason For Visit: depression and thoughts of Subjective Notes: Conditional Voluntary Interim History: the nursing staff reported the patient has been compliant with treatment. The administrator social welfare reported that her has been transferred to [facility] nursing facility. The patient denies new symptoms, she denies active suicidal ideation. Mental Status Exam Mental Status Exam Patient Appearance: Well Grooomed Patient Orientation: Person and Situation Level of Consciousness: Awake Patient Behavior: Cooperative Mood Description: Constricted Affect Description: Depressed Patient Cognition Impaired: No Ability to Follow Directions: Good Speech Pattern: Clear Hallucinations: None Delusions: Not Present Thought Process: Linear Thought Content: positive for Intact Judgement: Fair Diagnostics Vital Signs (24Hr): Vital Signs - 24 hr 12/17/21 20:45 12/18/21 08:00 Temperature 96.9 F 97.2 F Pulse Rate 59 54 Respiratory Rate 18 16 Blood Pressure 149/67 H 148/78 H Pulse Oximetry 96 95 BMI result Body Mass Index 25.9 Labs Results: 11/25/21 06:52 11/25/21 06:52 Imaging Radiology Impressions: ITS Impressions Head CT 11/28/21 20:53 IMPRESSION: No acute intracranial process seen Carotid Doppler Study 11/29/21 11:47 IMPRESSION: 1. RIGHT: Minimal, non-hemodynamically significant stenosis of the proximal right internal carotid artery corresponding to a 0-49% stenosis by velocity criteria. 2. LEFT: Minimal, non-hemodynamically significant stenosis of the proximal left internal carotid artery corresponding to a 0-49% stenosis by velocity criteria. Medications Medications Current Medications Acetaminophen (Acetaminophen 325 Mg Tablet) 650 mg PO Q6H PRN PRN Reason: Headache/Pain Mild Scale (1-3) Last Admin: 12/09/21 15:59 Dose: 650 mg Al Hydroxide/Mg Hydroxide (Magnesium Hydrox/Alum Hydrox 30 Ml Oral.Susp) 30 ml PO Q6H PRN PRN Reason: Heartburn/Nausea Albuterol Sulfate (Albuterol Sulfate 90 Mcg 8 Gm Inhaler) 2 puff INHALE RQ4H PRN PRN Reason: shortness of breath or wheezin Last Admin: 12/03/21 09:16 Dose: 2 puff Aripiprazole (Aripiprazole 5 Mg Tablet) 5 mg PO DAILY [facility] Last Admin: 12/18/21 08:15 Dose: 5 mg Clonidine HCl (Clonidine Hcl 0.1 Mg Tablet) 0.1 mg PO BID [facility]; Protocol Last Admin: 12/18/21 08:16 Dose: 0.1 mg Fluoxetine HCl (Fluoxetine Hcl 20 Mg Capsule) 20 mg PO DAILY [facility] Last Admin: 12/18/21 08:15 Dose: 20 mg Fluticasone/Vilanterol (Fluticasone/Vilanterol 100/25 Blst.W.Dev) 1 puff INHALE RDAILY [facility] Last Admin: 12/18/21 08:15 Dose: 1 puff Guaifenesin (Guaifenesin 100 Mg/5 Ml Liquid) 5 ml PO Q4H PRN PRN Reason: Cough Last Admin: 12/08/21 14:33 Dose: 5 ml Hydroxyzine HCl (Hydroxyzine Hcl 25 Mg Tablet) 25 mg PO BEDTIME PRN PRN Reason: Anxiety Last Admin: 12/17/21 21:16 Dose: 25 mg Hydroxyzine HCl (Hydroxyzine Hcl 25 Mg Tablet) 25 mg PO TID PRN PRN Reason: Anxiety Last Admin: 12/16/21 14:04 Dose: 25 mg Loperamide HCl (Loperamide Hcl 2 Mg Capsule) 2 mg PO Q6H PRN PRN Reason: diarrhea Magnesium Hydroxide (Milk Of Magnesia 30 Ml Oral.Susp) 30 ml PO DAILY PRN PRN Reason: Constipation Melatonin (Melatonin 3 Mg Tablet) 3 mg PO BEDTIME [facility] Last Admin: 12/17/21 21:16 Dose: 3 mg Metoprolol Succinate (Metoprolol Succinate Er 12.5 Mg Halftab.Er.24h) 12.5 mg PO DAILY [facility]; Protocol Last Admin: 12/18/21 08:17 Dose: Not Given Mirtazapine (Mirtazapine 15 Mg Tablet) 45 mg PO BEDTIME [facility] Last Admin: 12/17/21 21:15 Dose: 45 mg Pravastatin Sodium (Pravastatin Sodium 20 Mg Tablet) 20 mg PO DAILY [facility] Last Admin: 12/18/21 08:15 Dose: 20 mg Risperidone (Risperidone 1 Mg Tablet) 1 mg PO BEDTIME [facility] Last Admin: 12/17/21 21:15 Dose: 1 mg Trazodone HCl (Trazodone Hcl 50 Mg Tablet) 50 mg PO BEDTIME PRN PRN Reason: Insomnia Last Admin: 12/13/21 03:02 Dose: 50 mg Allergies Allergies Allergy/AdvReac Type Severity Reaction Status Date / Time adhesive AdvReac Unknown Verified 04/21/21 23:21 aspirin AdvReac Unknown Verified 04/21/21 23:20 epinephrine AdvReac Unknown Verified 04/21/21 23:21 Assessment & Plan Assessment & Plan (1) MDD (major depressive disorder), recurrent episode, moderate: Status: Acute Code(s): F33.1 - Major depressive disorder, recurrent, moderate Assessment and Plan: Presents with major depression without psychosis. Significant impact on ability to function. Stress around 's well-being and support. will discuss with primary team potential for starting ECT again. Noted hospitalist consult. No med changes for now Plan Keep same treatment Plan This is a?75yo F with COPD, HTN, hx TIA, hx hyperCA/hyperPTH s/p PTX, hx multiple colectomies with eventual reanastomosis for multiple precancerous polyps, s/p PPM for arrhythmia, prediabetes, depression, and PTSD admitted to [facility] for SI ECT - patient has had ECT before with no previous adverse outcomes. benefits likely outweigh any risks given depression/SI. Obtain EKG prior to any planned ECT No medication reconciliation has been done at this point. COPD continue Breo, previously on spiriva but no med rec done prn albuterol HTN previously on metoprolol ? d/c due to starting clonidine follow blood pressure HLD/hx TIA - continue statin tobacco abuse - smokes 6 cig/d; declines NRT depression/PTSD - medications as per psychiatry team Thank you for allowing us to participate in the care of this patient. Attending - dr. briones I spent minutes with the patient and/or on the patient floor today, greater than?50% of which was spent counseling/coordinating care. Reason for contiued inpatient stay Substantial Risk for: inability to function, rapid decompensation and med/psych decompensation
[2021-12-18] MEDS: hydrOXYzine HCL 25 MG TABLET PO ×2 (15:59→21:14)
[2021-12-18 20:00] VITALS: BP 168/80; PULSE 68; TEMP 36.8; O2SAT 96
[2021-12-18] MEDS: Melatonin 3 MG TABLET PO (20:41)
[2021-12-18] MEDS: risperiDONE 1 MG TABLET PO (20:42)
[2021-12-18] MEDS: Mirtazapine 15 MG TABLET 45 MG PO (20:42)
[2021-12-19 07:30] VITALS: BP 133/63; PULSE 71; RESP 14; TEMP 36.4; O2SAT 93
[2021-12-19] MEDS: Metoprolol Succinate ER 12.5 MG HALFTAB.ER.24H PO (08:02)
[2021-12-19] MEDS: Fluticasone/Vilanterol 100/25 BLST.W.DEV 1 PUFF INHALE (08:02)
[2021-12-19] MEDS: Pravastatin Sodium 20 MG TABLET PO (08:02)
[2021-12-19] MEDS: cloNIDine HCL 0.1 MG TABLET PO ×2 (08:02→21:38)
[2021-12-19] MEDS: ARIPiprazole 5 MG TABLET PO (08:02)
[2021-12-19] MEDS: FLUoxetine HCl 20 MG CAPSULE PO (08:02)
[2021-12-19] MEDS: hydrOXYzine HCL 25 MG TABLET PO ×2 (13:54→21:39)
--- NOTE | 2021-12-19 16:00 | HO.PSYCHPN ---
Subjective Subjective Date of Service: 12/19/21 Reason For Visit: depression and thoughts of Subjective Notes: Conditional Voluntary Interim History: The nursing staff reported that the patient has been fully compliant with treatment. She denies active suicidal ideation. On interview the patient denies new symptoms, we start discussing about discharge planning. Mental Status Exam Mental Status Exam Patient Appearance: Well Grooomed Patient Orientation: Person and Situation Level of Consciousness: Awake Patient Behavior: Cooperative Mood Description: Constricted Affect Description: Depressed Patient Cognition Impaired: No Ability to Follow Directions: Good Speech Pattern: Clear Hallucinations: None Delusions: Not Present Thought Process: Linear Thought Content: positive for [place] Judgement: Fair Diagnostics Vital Signs (24Hr): Vital Signs - 24 hr 12/18/21 20:00 12/19/21 07:30 Temperature 98.2 F 97.5 F Pulse Rate 68 71 Respiratory Rate 14 Blood Pressure 168/80 H 133/63 Pulse Oximetry 96 93 BMI result Body Mass Index 25.9 Labs Results: 11/25/21 06:52 11/25/21 06:52 Imaging Radiology Impressions: ITS Impressions Head CT 11/28/21 20:53 IMPRESSION: No acute intracranial process seen Carotid Doppler Study 11/29/21 11:47 IMPRESSION: 1. RIGHT: Minimal, non-hemodynamically significant stenosis of the proximal right internal carotid artery corresponding to a 0-49% stenosis by velocity criteria. 2. LEFT: Minimal, non-hemodynamically significant stenosis of the proximal left internal carotid artery corresponding to a 0-49% stenosis by velocity criteria. Medications Medications Current Medications Acetaminophen (Acetaminophen 325 Mg Tablet) 650 mg PO Q6H PRN PRN Reason: Headache/Pain Mild Scale (1-3) Last Admin: 12/09/21 15:59 Dose: 650 mg Al Hydroxide/Mg Hydroxide (Magnesium Hydrox/Alum Hydrox 30 Ml Oral.Susp) 30 ml PO Q6H PRN PRN Reason: Heartburn/Nausea Albuterol Sulfate (Albuterol Sulfate 90 Mcg 8 Gm Inhaler) 2 puff INHALE RQ4H PRN PRN Reason: shortness of breath or wheezin Last Admin: 12/03/21 09:16 Dose: 2 puff Aripiprazole (Aripiprazole 5 Mg Tablet) 5 mg PO DAILY [facility] Last Admin: 12/19/21 08:02 Dose: 5 mg Clonidine HCl (Clonidine Hcl 0.1 Mg Tablet) 0.1 mg PO BID [facility]; Protocol Last Admin: 12/19/21 08:02 Dose: 0.1 mg Fluoxetine HCl (Fluoxetine Hcl 20 Mg Capsule) 20 mg PO DAILY [facility] Last Admin: 12/19/21 08:02 Dose: 20 mg Fluticasone/Vilanterol (Fluticasone/Vilanterol 100/25 Blst.W.Dev) 1 puff INHALE RDAILY [facility] Last Admin: 12/19/21 08:02 Dose: 1 puff Guaifenesin (Guaifenesin 100 Mg/5 Ml Liquid) 5 ml PO Q4H PRN PRN Reason: Cough Last Admin: 12/08/21 14:33 Dose: 5 ml Hydroxyzine HCl (Hydroxyzine Hcl 25 Mg Tablet) 25 mg PO BEDTIME PRN PRN Reason: Anxiety Last Admin: 12/18/21 21:14 Dose: 25 mg Hydroxyzine HCl (Hydroxyzine Hcl 25 Mg Tablet) 25 mg PO TID PRN PRN Reason: Anxiety Last Admin: 12/19/21 13:54 Dose: 25 mg Loperamide HCl (Loperamide Hcl 2 Mg Capsule) 2 mg PO Q6H PRN PRN Reason: diarrhea Magnesium Hydroxide (Milk Of Magnesia 30 Ml Oral.Susp) 30 ml PO DAILY PRN PRN Reason: Constipation Melatonin (Melatonin 3 Mg Tablet) 3 mg PO BEDTIME [facility] Last Admin: 12/18/21 20:41 Dose: 3 mg Metoprolol Succinate (Metoprolol Succinate Er 12.5 Mg Halftab.Er.24h) 12.5 mg PO DAILY [facility]; Protocol Last Admin: 12/19/21 08:02 Dose: 12.5 mg Mirtazapine (Mirtazapine 15 Mg Tablet) 45 mg PO BEDTIME [facility] Last Admin: 12/18/21 20:42 Dose: 45 mg Pravastatin Sodium (Pravastatin Sodium 20 Mg Tablet) 20 mg PO DAILY [facility] Last Admin: 12/19/21 08:02 Dose: 20 mg Risperidone (Risperidone 1 Mg Tablet) 1 mg PO BEDTIME [facility] Last Admin: 12/18/21 20:42 Dose: 1 mg Trazodone HCl (Trazodone Hcl 50 Mg Tablet) 50 mg PO BEDTIME PRN PRN Reason: Insomnia Last Admin: 12/13/21 03:02 Dose: 50 mg Allergies Allergies Allergy/AdvReac Type Severity Reaction Status Date / Time adhesive AdvReac Unknown Verified 04/21/21 23:21 aspirin AdvReac Unknown Verified 04/21/21 23:20 epinephrine AdvReac Unknown Verified 04/21/21 23:21 Assessment & Plan Assessment & Plan (1) MDD (major depressive disorder), recurrent episode, moderate: Status: Acute Code(s): F33.1 - Major depressive disorder, recurrent, moderate Assessment and Plan: Presents with major depression without psychosis. Significant impact on ability to function. Stress around 's well-being and support. will discuss with primary team potential for starting ECT again. Noted hospitalist consult. No med changes for now Plan Keep same treatment Plan This is a?75yo F with COPD, HTN, hx TIA, hx hyperCA/hyperPTH s/p PTX, hx multiple colectomies with eventual reanastomosis for multiple precancerous polyps, s/p PPM for arrhythmia, prediabetes, depression, and PTSD admitted [facility] ECT - patient has had ECT before with no previous adverse outcomes. benefits likely outweigh any risks given depression/SI. Obtain EKG prior to any planned ECT No medication reconciliation has been done at this point. COPD continue Breo, previously on spiriva but no med rec done prn albuterol HTN previously on metoprolol ? d/c due to starting clonidine follow blood pressure HLD/hx TIA - continue statin tobacco abuse - smokes 6 cig/d; declines NRT depression/PTSD - medications as per psychiatry team Thank you for allowing us to participate in the care of this patient. Attending - dr. briones I spent __20____ minutes with the patient and/or on the patient floor today, greater than?50% of which was spent counseling/coordinating care. Reason for contiued inpatient stay Substantial Risk for: inability to function, rapid decompensation and med/psych decompensation
[2021-12-19 20:00] VITALS: BP 135/65; PULSE 60; RESP 16; TEMP 35.9; O2SAT 94
[2021-12-19] MEDS: risperiDONE 1 MG TABLET PO (21:40)
[2021-12-19] MEDS: Mirtazapine 15 MG TABLET 45 MG PO (21:40)
[2021-12-19] MEDS: Melatonin 3 MG TABLET PO (21:41)
[2021-12-20 07:45] VITALS: BP 148/62; PULSE 72; RESP 17; TEMP 36.4; O2SAT 94
[2021-12-20] MEDS: Fluticasone/Vilanterol 100/25 BLST.W.DEV 1 PUFF INHALE (08:39)
[2021-12-20] MEDS: Metoprolol Succinate ER 12.5 MG HALFTAB.ER.24H PO (08:39)
[2021-12-20] MEDS: cloNIDine HCL 0.1 MG TABLET PO ×2 (08:39→21:28)
[2021-12-20] MEDS: ARIPiprazole 5 MG TABLET PO (08:40)
[2021-12-20] MEDS: Pravastatin Sodium 20 MG TABLET PO (08:40)
[2021-12-20] MEDS: FLUoxetine HCl 20 MG CAPSULE PO (08:40)
[2021-12-20] MEDS: hydrOXYzine HCL 25 MG TABLET PO ×3 (12:23→23:11)
--- NOTE | 2021-12-20 15:37 | PC.NURSE ---
Pt seen this day for individual OT session with focus on discharge planning. Pt states feeling Good about returning to home environment. She is to have VNA services as well as automatic medication dispenser, pt education provided with regard to keeping a 'medication diary for her own peace of mind pt is receptive and agreeable. Pt also intends to reconnect with her [facility] for social and volunteer opportunities.
--- NOTE | 2021-12-20 16:29 | P.PNPSI_ITS ---
Subjective Subjective Date of Service: 12/20/21 Reason For Visit: depression and thoughts of Subjective Notes: Conditional Voluntary Interim History: the nursing staff reported the patient has been compliant with treatment. She was seen in the common areas participating in group activities. On interview the patient denies suicidal ideation she is looking for a discharge pretty soon since there is no safety concerns at this moment Mental Status Exam Mental Status Exam Patient Appearance: Well Grooomed Patient Orientation: Person, Place and Situation Level of Consciousness: Awake Patient Behavior: Guarded and Cooperative Mood Description: Withdrawn Affect Description: Constricted Patient Cognition Impaired: No Ability to Follow Directions: Good Speech Pattern: Clear Hallucinations: None Delusions: Not Present Thought Process: Linear Thought Content: positive for [place] Judgement: Fair Diagnostics Vital Signs (24Hr): Vital Signs - 24 hr 12/19/21 20:00 12/20/21 07:45 Temperature 96.6 F L 97.5 F Pulse Rate 60 72 Respiratory Rate 16 17 Blood Pressure 135/65 148/62 H Pulse Oximetry 94 94 BMI result Body Mass Index 25.9 Labs Results: 11/25/21 06:52 11/25/21 06:52 Imaging Radiology Impressions: ITS Impressions Head CT 11/28/21 20:53 IMPRESSION: No acute intracranial process seen Carotid Doppler Study 11/29/21 11:47 IMPRESSION: 1. RIGHT: Minimal, non-hemodynamically significant stenosis of the proximal right internal carotid artery corresponding to a 0-49% stenosis by velocity criteria. 2. LEFT: Minimal, non-hemodynamically significant stenosis of the proximal left internal carotid artery corresponding to a 0-49% stenosis by velocity criteria. Medications Medications Current Medications Acetaminophen (Acetaminophen 325 Mg Tablet) 650 mg PO Q6H PRN PRN Reason: Headache/Pain Mild Scale (1-3) Last Admin: 12/09/21 15:59 Dose: 650 mg Al Hydroxide/Mg Hydroxide (Magnesium Hydrox/Alum Hydrox 30 Ml Oral.Susp) 30 ml PO Q6H PRN PRN Reason: Heartburn/Nausea Albuterol Sulfate (Albuterol Sulfate 90 Mcg 8 Gm Inhaler) 2 puff INHALE RQ4H PRN PRN Reason: shortness of breath or wheezin Last Admin: 12/03/21 09:16 Dose: 2 puff Aripiprazole (Aripiprazole 5 Mg Tablet) 5 mg PO DAILY [facility] Last Admin: 12/20/21 08:40 Dose: 5 mg Clonidine HCl (Clonidine Hcl 0.1 Mg Tablet) 0.1 mg PO BID [facility]; Protocol Last Admin: 12/20/21 08:39 Dose: 0.1 mg Fluoxetine HCl (Fluoxetine Hcl 20 Mg Capsule) 20 mg PO DAILY [facility] Last Admin: 12/20/21 08:40 Dose: 20 mg Fluticasone/Vilanterol (Fluticasone/Vilanterol 100/25 Blst.W.Dev) 1 puff INHALE RDAILY [facility] Last Admin: 12/20/21 08:39 Dose: 1 puff Guaifenesin (Guaifenesin 100 Mg/5 Ml Liquid) 5 ml PO Q4H PRN PRN Reason: Cough Last Admin: 12/08/21 14:33 Dose: 5 ml Hydroxyzine HCl (Hydroxyzine Hcl 25 Mg Tablet) 25 mg PO BEDTIME PRN PRN Reason: Anxiety Last Admin: 12/18/21 21:14 Dose: 25 mg Hydroxyzine HCl (Hydroxyzine Hcl 25 Mg Tablet) 25 mg PO TID PRN PRN Reason: Anxiety Last Admin: 12/20/21 12:23 Dose: 25 mg Loperamide HCl (Loperamide Hcl 2 Mg Capsule) 2 mg PO Q6H PRN PRN Reason: diarrhea Magnesium Hydroxide (Milk Of Magnesia 30 Ml Oral.Susp) 30 ml PO DAILY PRN PRN Reason: Constipation Melatonin (Melatonin 3 Mg Tablet) 3 mg PO BEDTIME [facility] Last Admin: 12/19/21 21:41 Dose: 3 mg Metoprolol Succinate (Metoprolol Succinate Er 12.5 Mg Halftab.Er.24h) 12.5 mg PO DAILY [facility]; Protocol Last Admin: 12/20/21 08:39 Dose: 12.5 mg Mirtazapine (Mirtazapine 15 Mg Tablet) 45 mg PO BEDTIME [facility] Last Admin: 12/19/21 21:40 Dose: 45 mg Pravastatin Sodium (Pravastatin Sodium 20 Mg Tablet) 20 mg PO DAILY [facility] Last Admin: 12/20/21 08:40 Dose: 20 mg Risperidone (Risperidone 1 Mg Tablet) 1 mg PO BEDTIME [facility] Last Admin: 12/19/21 21:40 Dose: 1 mg Trazodone HCl (Trazodone Hcl 50 Mg Tablet) 50 mg PO BEDTIME PRN PRN Reason: Insomnia Last Admin: 12/13/21 03:02 Dose: 50 mg Allergies Allergies Allergy/AdvReac Type Severity Reaction Status Date / Time adhesive AdvReac Unknown Verified 04/21/21 23:21 aspirin AdvReac Unknown Verified 04/21/21 23:20 epinephrine AdvReac Unknown Verified 04/21/21 23:21 Assessment & Plan Assessment & Plan (1) MDD (major depressive disorder), recurrent episode, moderate: Status: Acute Code(s): F33.1 - Major depressive disorder, recurrent, moderate Assessment and Plan: Presents with major depression without psychosis. Significant impact on ability to function. Stress around 's well-being and support. will discuss with primary team potential for starting ECT again. Noted hospitalist consult. No med changes for now Plan Keep same treatment Plan This is a?75yo F with COPD, HTN, hx TIA, hx hyperCA/hyperPTH s/p PTX, hx multiple colectomies with eventual reanastomosis for multiple precancerous polyps, s/p PPM for arrhythmia, prediabetes, depression, and PTSD admitted to [facility] for [facility] ECT - patient has had ECT before with no previous adverse outcomes. benefits likely outweigh any risks given depression/SI. Obtain EKG prior to any planned ECT No medication reconciliation has been done at this point. COPD continue Breo, previously on spiriva but no med rec done prn albuterol HTN previously on metoprolol ? d/c due to starting clonidine follow blood pressure HLD/hx TIA - continue statin tobacco abuse - smokes 6 cig/d; declines NRT depression/PTSD - medications as per psychiatry team Thank you for allowing us to participate in the care of this patient. Attending - dr. briones I spent ___20___ minutes with the patient and/or on the patient floor today, greater than?50% of which was spent counseling/coordinating care. Reason for contiued inpatient stay Substantial Risk for: inability to function, rapid decompensation and med/psych decompensation
[2021-12-20 20:00] VITALS: BP 178/90; PULSE 59; RESP 16; TEMP 36.4; O2SAT 97
[2021-12-20] MEDS: risperiDONE 1 MG TABLET PO (21:27)
[2021-12-20] MEDS: Melatonin 3 MG TABLET PO (21:27)
[2021-12-20] MEDS: Mirtazapine 15 MG TABLET 45 MG PO (21:29)
[2021-12-21 06:24] VITALS: BMI 26.2
[2021-12-21 08:00] VITALS: BP 143/71; PULSE 72; RESP 16; TEMP 36.2; O2SAT 97
[2021-12-21] MEDS: Metoprolol Succinate ER 12.5 MG HALFTAB.ER.24H PO (08:18)
[2021-12-21] MEDS: cloNIDine HCL 0.1 MG TABLET PO (08:18)
[2021-12-21] MEDS: Pravastatin Sodium 20 MG TABLET PO (08:18)
[2021-12-21] MEDS: ARIPiprazole 5 MG TABLET PO (08:20)
[2021-12-21] MEDS: Fluticasone/Vilanterol 100/25 BLST.W.DEV 1 PUFF INHALE (09:55)
--- NOTE | 2021-12-21 10:50 | P.DS_ITS ---
DS: Providers Provider Date of Service: 12/21/21 Date of admission: 11/24/21 23:16 Date of discharge: 12/21/21 Primary care physician: Unknown Physician Consults: 11/24/21 23:53 Consult to Hospitalist Routine Consulting Provider: Hospitalist Reason For Exam: new admit from [facility] 11/28/21 11:04 Consult to Hospitalist Routine Consulting Provider: Hospitalist Reason For Exam: med eval ect see ekg and prior eval 11/28/21 12:57 Consult to Neurology Routine Consulting Provider: [facility] Reason for consultation: ? tia unclear please advise pt pre opo for ect 11/30/21 10:58 Consult to Hospitalist NOW Consulting Provider: Hospitalist Reason For Exam: COVID-19 positive symptomatic 11/30/21 15:13 Consult to Hospitalist Routine Consulting Provider: Hospitalist Reason For Exam: covid pos cough productive sputum please advise tx Attending physician on discharge: James Garcia DS: Diagnosis Discharge Diagnosis (1) MDD (major depressive disorder), recurrent episode, moderate: Status: Acute DS: Medications Discharge Medications Home Medications: Home Medications Medication Instructions Recorded Confirmed aspirin 81 mg tablet 81 mg PO DAILY 04/22/21 04/22/21 risperidone 1 mg tablet 1 mg PO DAILY 04/22/21 04/22/21 risperidone 2 mg tablet 2 mg PO BEDTIME 04/22/21 04/22/21 tiotropium bromide 1.25 18 mcg inhalation DAILY asthma 04/22/21 04/25/21 mcg/actuation mist for inhalation (Spiriva Respimat) Previous Rx's Medication Instructions Recorded acetaminophen 325 mg tablet (Pain 325 mg PO DIRECTED PRN Pain, 05/12/21 Reliever (acetaminophen)) Mild 30 days #30 tabs albuterol sulfate 90 mcg/actuation 2 puff inhalation Q4H PRN 05/12/21 aerosol inhaler (Ventolin HFA) Shortness Of Breath/Wheezing 30 days #1 g chlorpromazine 50 mg tablet 50 mg PO .qhs 30 days #30 tabs 05/12/21 clonazepam 0.5 mg tablet 0.5 mg PO DAILY 30 days #30 tabs 05/12/21 clonidine HCl 0.2 mg tablet 0.2 mg PO BID PRN anxiety 30 days 05/12/21 #60 tabs fluoxetine 60 mg tablet 60 mg PO QAM 30 days #30 tabs 05/12/21 fluticasone furoate 100 1 puff inhalation RDAILY 30 days 05/12/21 mcg-vilanterol 25 mcg/dose #1 ea inhalation powder (Breo Ellipta) melatonin 3 mg tablet 3 mg PO BEDTIME 30 days #30 tabs 05/12/21 metoprolol tartrate 25 mg tablet 12.5 mg PO DAILY 30 days #15 tabs 05/12/21 rosuvastatin 10 mg tablet 10 mg PO DAILY 30 days #30 tabs 05/12/21 trazodone 50 mg tablet 50 mg PO BEDTIME PRN Insomnia 30 05/12/21 days #30 tabs chlorpromazine 50 mg tablet 50 mg PO .QHS #30 tabs 05/13/21 Mental Status Exam Mental Status Exam Patient Appearance: Well Grooomed Patient Orientation: Person, Place and Situation Level of Consciousness: Awake Patient Behavior: Appropriate Mood Description: Calm Affect Description: Constricted Patient Cognition Impaired: No Ability to Follow Directions: Good Speech Pattern: Clear Hallucinations: None Delusions: Not Present Thought Process: Linear Thought Content: positive for [place] and positive for [place] Judgement: Fair Data Data Completed and Pending Completed studies during hospitalization [Text1]: 11/25/21 09:30 Urine clean catch - Urine ceron top Urine Culture - Final Escherichia coli Imaging Diagnostic Imaging Impressions Head CT 11/28/21 20:53 IMPRESSION: No acute intracranial process seen Carotid Doppler Study 11/29/21 11:47 IMPRESSION: 1. RIGHT: Minimal, non-hemodynamically significant stenosis of the proximal right internal carotid artery corresponding to a 0-49% stenosis by velocity criteria. 2. LEFT: Minimal, non-hemodynamically significant stenosis of the proximal left internal carotid artery corresponding to a 0-49% stenosis by velocity criteria. DS: Summary Hospital Course Hospital Course: the patient was admitted for suicidal ideation and exacerbation of depression. She was admitted with the possibility of having the ECT. Please see HPI of the admission note for further details. The patient was continued on her regular antidepressants and Abilify was started as adjunctive therapy for depression. It was slowly titrated up to 5 mg p.o. daily. The patient's mood improved with the increase of Abilify. The patient later refused to have ECT. While she was admitted, she got infected with COVID- 19 and she was on COVID-19 restrictions that she coped well very assertively. While she was admitted 1 of the many stressors was the health of her who fortunately, improved after surgery and now he is in a subacute rehab. we discussed at length safety discharge plan in the community and since there were no safety concerns discharge plan was discussed. Time spent discussing smoking cessation with patient: 3 to 10 minutes Status at Discharge Cognitive/behavioral status at discharge: At baseline Functional status at discharge: independent ambulation Overall status at discharge: patient is back to baseline Time Spent with Patient Time attestation: Total time spent providing and/or coordinating discharge services: Time spent: Less than 30 minutes Discharge Plan Discharge Patient Disposition: Home, Self-Care Discharge Diagnosis: major depressive disorder recurrent episode severe without psychosis Referrals: Gage Amado. [employer]PERATIONS DIRECTOR [facility] [Other] - 01/01/22 3:15 pm (Your next appointment with Gage Amado is 01/01/22 at 3:15pm and this appointment is telehealth. ) Billy Bee [Other] - 12/28/21 10:00 am (Your next appointment with Dk is 12/28/21 at 10am. If you need to speak with him sooner please feel free to call him for phone check ins as needed. ) [facility] [Other] - 3-5 Days (Your services through [facility] services to resume on date of discharge. Your rehabilitation case coordinator will contact you at home. You have been referred for homemaking ad personal care services, and also once a week RN visits and med-minder box. RN to set up med minder once per week. ) Physician,Unknown J [Primary Care Provider] - 1 Week Discharge Medications: New clonidine HCl 0.1 mg Tablet 0.1 mg PO BID 30 Days Qty: 60 0RF Protocol: Hold for SBP< HOLD for SBP < : 90 albuterol sulfate [Ventolin HFA] 90 mcg/actuation Hfa Aerosol Inhaler 2 puff inhalation RQ4H PRN (Reason: shortness of breath or wheezin) 30 Days Qty: 1 0RF melatonin 3 mg Tablet 3 mg PO BEDTIME 30 Days Qty: 30 0RF hydroxyzine HCl 25 mg Tablet 25 mg PO TID PRN (Reason: Anxiety) 30 Days Qty: 90 0RF mirtazapine 15 mg Tablet 45 mg PO BEDTIME 30 Days Qty: 90 0RF fluoxetine 20 mg Capsule 20 mg PO DAILY 30 Days Qty: 30 0RF risperidone 1 mg Tablet 1 mg PO BEDTIME 30 Days Qty: 30 0RF aripiprazole [Abilify] 5 mg Tablet 5 mg PO DAILY 30 Days Qty: 30 0RF fluticasone furoate-vilanterol [Breo Ellipta] 100-25 mcg/dose Blister With Device 1 puff inhalation RDAILY 30 Days Qty: 1 0RF Continued rosuvastatin 10 mg Tablet 10 mg PO DAILY 30 Days Qty: 30 0RF metoprolol tartrate 25 mg Tablet 12.5 mg PO DAILY 30 Days Qty: 15 0RF Discontinued Spiriva Respimat 1.25 mcg/actuation Mist 18 mcg inhalation DAILY MDD 2 puffs Rx Instructions: 2 puffs daily risperidone 2 mg Tablet 2 mg PO BEDTIME risperidone 1 mg Tablet 1 mg PO DAILY aspirin 81 mg Tablet 81 mg PO DAILY albuterol sulfate [Ventolin HFA] 90 mcg/actuation Hfa Aerosol Inhaler 2 puff inhalation Q4H PRN (Reason: Shortness Of Breath/Wheezing) 30 Days Qty: 1 0RF trazodone 50 mg Tablet 50 mg PO BEDTIME PRN (Reason: Insomnia) 30 Days Qty: 30 0RF melatonin 3 mg Tablet 3 mg PO BEDTIME 30 Days Qty: 30 0RF clonidine HCl 0.2 mg Tablet 0.2 mg PO BID PRN (Reason: anxiety) 30 Days Qty: 60 0RF Protocol: Hold for SBP< HOLD for SBP < : 90 fluticasone furoate-vilanterol [Breo Ellipta] 100-25 mcg/dose Blister With Device 1 puff inhalation RDAILY 30 Days Qty: 1 0RF chlorpromazine 50 mg tablet 50 mg PO .qhs 30 Days Qty: 30 0RF acetaminophen [Pain Reliever (acetaminophen)] 325 mg Tablet 325 mg PO DIRECTED MDD Q 6 HOURS PRN (Reason: Pain, Mild) 30 Days Qty: 30 0RF clonazepam 0.5 mg Tablet 0.5 mg PO DAILY 30 Days Qty: 30 0RF fluoxetine 60 mg Tablet 60 mg PO QAM 30 Days Qty: 30 0RF chlorpromazine 50 mg tablet 50 mg PO .QHS Qty: 30 0RF Discharge Orders: Discharge Order (Routine); Ordered 12/21/21 Ordered By: James Garcia Diet: advance to usual diet Activity on Discharge: As tolerated Stand Alone Forms: Patient Portal Discharge page Care Plan Goals: care plan goals achieved in this admission Health Concerns: continue treatment as an outpatient with primary care physician Plan of Treatment: continue outpatient med treatment Assessment: elderly female with a long history of major depressive disorder admitted for exacerbation of symptoms in the context of several psychosocial stressors. At this moment safe for discharge
[2021-12-21] MEDS: FLUoxetine HCl 20 MG CAPSULE PO (12:58)
[2021-12-21] MEDS: hydrOXYzine HCL 25 MG TABLET PO (13:12)
== END 2021-12-21 16:45 | disposition home or self-care (01) | DRG 885 ==
PROVIDERS: Psychiatry & Neurology Psychiatry; Registered Nurse; Admitting Provider Psychiatry & Neurology Psychiatry; Visit Provider Psychiatry & Neurology Psychiatry
DX: F33.1 Major depressive disorder, recurrent, moderate (principal); U07.1 COVID-19; R45.851 Suicidal ideations; F43.10 Post-traumatic stress disorder, unspecified; Z86.73 Personal history of transient ischemic attack (TIA), and cerebral infarction without residual deficits; J44.9 Chronic obstructive pulmonary disease, unspecified; I10 Essential (primary) hypertension; E78.5 Hyperlipidemia, unspecified; F17.210 Nicotine dependence, cigarettes, uncomplicated; Z71.6 Tobacco abuse counseling; Z88.6 Allergy status to analgesic agent; Z88.8 Allergy status to other drugs, medicaments and biological substances; Z79.51 Long term (current) use of inhaled steroids; Z79.899 Other long term (current) drug therapy
CPT/HCPCS: 36415; 70450; 80053; 80061; 80076; 82607; 82746; 83036; 83735; 84439; 84443; 85025; 87086; 87088; 87186; 87635; 93880

== ENCOUNTER 2022-02-07 14:36 | Inpatient (IN) | payer MEDICARE, SELFPAY ==
[2022-02-07 14:49] VITALS: BP 158/90; PULSE 88; O2SAT 97
--- NOTE | 2022-02-07 15:13 | PC.NURSE ---
Pt is a section 12 bed search from the community by [facility]. Transported by [facility] on 12. Pt has had sPMH of 7 SI attempts in past with one requiring ICU hospitalization. Pt was recently D/c from . Per Andree from [facility], pt has access to home meds that she ?previously attempted on. No VNA services in place. Andree from [facility] evaluated pt on scene and wrote section 12. Contact phone number [phone]
[2022-02-07 15:21] LABS: MANUAL DIFF FLAG NO
[2022-02-07 15:38] LABS: IDNOW Serial# 16C4AD1C
[2022-02-07 15:39] LABS: Basophils Percent Auto 0.4 % (0-2); COVID-19 Test Negative (Negative); Eosinophils Absolute Auto 0.2 X10*3/uL (0.0-0.4); Eosinophils Percent Auto 1.9 % (0-4); Hematocrit 38.2 % (37.0-47.0); Hemoglobin 12.9 g/dl (12.0-16.0); Imm Gran Abs Auto 0.05 X10*3/uL (0.00-0.03); Imm Gran Pct Auto 0.5 % (0.0-0.4); Lymphocytes Absolute Auto 2.1 X10*3/uL (1.2-4.9); Lymphocytes Percent Auto 21.7 % (20-40); Mean Corpuscular HGB Conc 33.8 g/dl (31.0-35.0); Mean Corpuscular Hemoglobin 30.4 pg (27.0-33.0); Mean Corpuscular Volume 89.9 fL (80.0-98.0); Mean Platelet Volume 9.8 fL (9.4-12.3); Monocytes Absolute Auto 0.6 X10*3/uL (0.1-1.2); Monocytes Percent Auto 6.3 % (2-11); Neutrophils Absolute Auto 6.7 x10*3/uL (2.0-8.3); Neutrophils Percent Auto 69.2 % (45-73); Platelet Count 273 X10*3/uL (160-400); Red Blood Count 4.25 X10*6/uL (4.20-5.50); Red Cell Distribution Width 13.4 % (11.0-16.0); White Blood Count 9.6 X10*3/uL (4.8-10.8)
[2022-02-07 15:41] LABS: Alanine Aminotransferase 13 U/L (0-31); Albumin Level 4.1 g/dL (3.5-5.0); Alkaline Phosphatase 55 U/L (39-117); Anion Gap 15 (12-20); Aspartate Amino Transferase 17 U/L (5-31); Bilirubin Direct < 0.2 mg/dL (0.0-0.5); Bilirubin Total 0.3 mg/dL (0.0-1.0); Blood Urea Nitrogen 11 mg/dL (9-16); Carbon Dioxide 24 mmol/L (22-29); Chloride 106 mmol/L (96-108); Estimated Glomerular Filt Rate > 60; Ethanol < 10 mg/dL; Glucose Random 102 mg/dL (60-115); Potassium 4.2 mmol/L (3.3-5.1); Sodium 141 mmol/L (135-145); Total Protein 6.8 g/dL (6.5-8.0)
[2022-02-07 15:42] VITALS: BP 141/77; PULSE 77; RESP 18; TEMP 36.6; O2SAT 95; BMI 21.9
--- NOTE | 2022-02-07 15:44 | ED_ITS ---
HPI - Psych General Chief Complaint: Psychiatric Symptoms Stated Complaint: CRISIS Time Seen by Provider: 02/07/22 15:00 Source: patient and EMS Limitations: no limitations History of Present Illness HPI Narrative: Patient comes emergency room complaining of suicidal ideation. Patient was Section 12 in the community by [facility]. Patient has contemplated committing suicide by overdosing on pills or stabbing herself in the abdomen with scissors. Patient does have history of suicide attempts. Patient was recently discharged in December of this year for Behavioral Health. Patient states that she is not doing well at home, she is very overwhelmed taking care of her who was recently discharged from a hospital for a heart attack. Yesterday, patient's was incontinent of urine and stool, patient was very overwhelmed cleaning everything in the house. Related Data Previous Rx's Medication Instructions Recorded albuterol sulfate 90 mcg/actuation 2 puff inhalation RQ4H PRN 12/21/21 aerosol inhaler (Ventolin HFA) shortness of breath or wheezin 30 days #1 g aripiprazole 5 mg tablet (Abilify) 5 mg PO DAILY 30 days #30 tabs 12/21/21 clonidine HCl 0.1 mg tablet 0.1 mg PO BID 30 days #60 tabs 12/21/21 fluoxetine 20 mg capsule 20 mg PO DAILY 30 days #30 caps 12/21/21 fluticasone furoate 100 1 puff inhalation RDAILY 30 days 12/21/21 mcg-vilanterol 25 mcg/dose #1 ea inhalation powder (Breo Ellipta) hydroxyzine HCl 25 mg tablet 25 mg PO TID PRN Anxiety 30 days 12/21/21 #90 tabs melatonin 3 mg tablet 3 mg PO BEDTIME 30 days #30 tabs 12/21/21 metoprolol tartrate 25 mg tablet 12.5 mg PO DAILY 30 days #15 tabs 12/21/21 mirtazapine 15 mg tablet 45 mg PO BEDTIME 30 days #90 tabs 12/21/21 risperidone 1 mg tablet 1 mg PO BEDTIME 30 days #30 tabs 12/21/21 rosuvastatin 10 mg tablet 10 mg PO DAILY 30 days #30 tabs 12/21/21 Allergies Allergy/AdvReac Type Severity Reaction Status Date / Time adhesive AdvReac Unknown Verified 04/21/21 23:21 aspirin AdvReac Unknown Verified 04/21/21 23:20 epinephrine AdvReac Unknown Verified 04/21/21 23:21 Review of Systems Review of Systems: Constitutional : No Weight loss, No Fever, No Chills, No Night Sweats, No Fatigue, No Malaise ENT/Mouth : No Hearing loss, No Ear Pain, No Nasal Congestion, No Sinus Pain, No Hoarseness, No sore throat, No Rhinorrhea, No Swallowing Difficulty Eyes: No Eye Pain, No Swelling, No Redness, No Foreign Body, No Discharge, No Vision Changes Cardiovascular : No Chest Pain, No SOB, No Dyspnea on Exertion, No Orthopnea, No Edema, No Palpitations Respiratory : No Cough, No Sputum, No Wheezing, No Smoke Exposure, No Dyspnea Gastrointestinal : No Nausea, No Vomiting, No Diarrhea, No Constipation, No abdominal Pain, No Hematochezia, No Melena Genitourinary : no irregular bleeding, No Dysuria, No Urinary Frequency, No Hematuria, No Urinary Incontinence, No Urgency, No Flank Pain, No Urinary Flow Changes, No Hesitancy Musculoskeletal : No joint pain, No Myalgias, No Joint Swelling Skin : No Skin Lesions, No rash Neuro : No Weakness, No Numbness, No Paresthesias, No Loss of Consciousness, No Dizziness, No Headache Psych : Complaining of anxiety, depression, suicidal ideation, no homicidal ideation Heme/Lymph: No Bruising, No Bleeding,No Lymphadenopathy Endocrine : No Polyuria, No Polydipsia, No Temperature Intolerance PMFSH Past Medical History Medical History COPD (chronic obstructive pulmonary disease) Depression Essential hypertension Hyperlipidemia Mitral valve prolapse Prediabetes PTSD (post-traumatic stress disorder) TIA (transient ischemic attack) Tobacco abuse Surgical History History of colectomy History of parathyroidectomy Social History Social History Household Members: Spouse Housing: Apartment Do you presently have visiting nurse or other home services: No Alcohol intake: never Patient Tobacco Use Status: Current everyday Tobacco user Tobacco use type: Cigarette Cigarettes Per Day: 6 Years Smoked: 25 yrs. e-Cigarette/Vaping Use: Never Used Second Hand Smoke Exposure: Yes Use of substances other than those prescribed or required for medical reasons: No Substance Use Type: Prescription Drugs and Caffiene Advance Directives: No Advance Directives Information Provided: No service: No Sexual orientation: Straight/Heterosexual Physical Exam Vital Signs: Vital Signs: Last Vital Signs Temp 97.9 F 02/07/22 15:42 Pulse 77 02/07/22 15:42 Resp 18 02/07/22 15:42 BP 141/77 H 02/07/22 15:42 Pulse Ox 95 02/07/22 15:42 O2 Del Method 02/07/22 15:42 BMI result Body Mass Index 21.9 Const: Other: Appearance: Alert. Oriented X3. No acute distress. Eyes: Pupils equal, round and reactive to light. ENT: Pharynx normal. Neck: Normal inspection. Neck supple. No lymph nodes noted. No crepitus CVS: Normal heart rate and rhythm. Pulses normal. Normal S1 and S2 Respiratory: No respiratory distress. Breath sounds normal. No Wheezing. No rales Abdomen: Soft and nontender. No rigidity. No distention. Skin: Skin warm and dry. Normal skin color. Normal skin turgor. Extremities: No lower extremity edema. No Lacerations. No Rash Neuro: Oriented X 3. No motor deficit. No sensory deficit. Moving all extremities. No slurred speech. CN 2 through 12 grossly intact Psych: calm, cooperative, normal affect Course Course Course Narrative: Getting routine labs for the patient. Behavioral health network consult pending. Patient's is in the hospital as well the patient has, looking for placement for himself. N pending Physician observation started at 15:50 Patient's urine has +2 leukocyte esterase, also has squamous epithelial cells. At this time, will not be treating urinary tract infection. MDM - Psych Lab Data Result diagrams: 02/07/22 15:17 02/07/22 15:17 Labs: Lab Results 02/07/22 02/07/22 02/07/22 Range/Units 15:17 15:17 15:17 WBC 9.6 (4.8-10.8) X10*3/uL RBC 4.25 (4.20-5.50) X10*6/uL Hgb 12.9 (12.0-16.0) g/dl Hct 38.2 (37.0-47.0) % MCV 89.9 (80.0-98.0) fL MCH 30.4 (27.0-33.0) pg MCHC 33.8 (31.0-35.0) g/dl RDW 13.4 (11.0-16.0) % Plt Count 273 (160-400) X10*3/uL MPV 9.8 (9.4-12.3) fL Immature Gran % (Auto) 0.5 H (0.0-0.4) % Neut % (Auto) 69.2 (45-73) % Lymph % (Auto) 21.7 (20-40) % [place] % (Auto) 6.3 (2-11) % Eos % (Auto) 1.9 (0-4) % Baso % (Auto) 0.4 (0-2) % Lymph # (Auto) 2.1 (1.2-4.9) X10*3/uL [place] # (Auto) 0.6 (0.1-1.2) X10*3/uL Eos # (Auto) 0.2 (0.0-0.4) X10*3/uL Baso # (Auto) 0.0 (0.0-0.2) X10*3/uL Abs Immat Gran (auto) 0.05 H (0.00-0.03) X10*3/uL Absolute Neuts (auto) 6.7 (2.0-8.3) x10*3/uL Absolute Nucleated RBC 0.000 (0.0-0.012) X10*3/uL Nucleated RBC % (auto) 0.0 (0.0-0.2) /100WBC Sodium 141 (135-145) mmol/L Potassium 4.2 (3.3-5.1) mmol/L Chloride 106 (96-108) mmol/L Carbon Dioxide 24 (22-29) mmol/L Anion Gap 15 (12-20) BUN 11 (9-16) mg/dL Creatinine 0.90 (0.5-1.4) mg/dL Estim Creat Clear Calc TNP Estimated GFR > 60 Random Glucose 102 (60-115) mg/dL Calcium 9.0 (8.4-10.2) mg/dL Total Bilirubin 0.3 (0.0-1.0) mg/dL Direct Bilirubin < 0.2 (0.0-0.5) mg/dL AST 17 (5-31) U/L ALT 13 (0-31) U/L Alkaline Phosphatase 55 (39-117) U/L Total Protein 6.8 (6.5-8.0) g/dL Albumin 4.1 (3.5-5.0) g/dL Urine Color Urine Appearance Urine pH (5.0-8.0) Ur Specific [place] (1.005-1.025) Urine Protein (NEG-TRACE) MG/DL Urine Glucose (UA) (NEG) MG/DL Urine Ketones (NEG) MG/DL Urine Blood (NEG) Urine Nitrite (NEG) Ur Leukocyte Esterase (NEG) Urine RBC (0) /HPF Urine WBC (0-4) /HPF Ur Squamous Epith Cells /LPF Urine Bacteria /LPF Urine Opiates Screen (Not Detect) Urine Fentanyl Screen (Not Detect) Ur Barbiturates Screen (Not Detect) Ur Phencyclidine Scrn (Not Detect) Ur Amphetamines Screen (Not Detect) U Benzodiazepines Scrn (Not Detect) Urine Cocaine Screen (Not Detect) U Marijuana (THC) Screen (Not Detect) Ethyl Alcohol < 10 mg/dL COVID-19 (LANE) Negative (Negative) COVID-19 Clin Com See Note 02/07/22 02/07/22 Range/Units 17:16 17:16 WBC (4.8-10.8) X10*3/uL RBC (4.20-5.50) X10*6/uL Hgb (12.0-16.0) g/dl Hct (37.0-47.0) % MCV (80.0-98.0) fL MCH (27.0-33.0) pg MCHC (31.0-35.0) g/dl RDW (11.0-16.0) % Plt Count (160-400) X10*3/uL MPV (9.4-12.3) fL Immature Gran % (Auto) (0.0-0.4) % Neut % (Auto) (45-73) % Lymph % (Auto) (20-40) % [place] % (Auto) (2-11) % Eos % (Auto) (0-4) % Baso % (Auto) (0-2) % Lymph # (Auto) (1.2-4.9) X10*3/uL [place] # (Auto) (0.1-1.2) X10*3/uL Eos # (Auto) (0.0-0.4) X10*3/uL Baso # (Auto) (0.0-0.2) X10*3/uL Abs Immat Gran (auto) (0.00-0.03) X10*3/uL Absolute Neuts (auto) (2.0-8.3) x10*3/uL Absolute Nucleated RBC (0.0-0.012) X10*3/uL Nucleated RBC % (auto) (0.0-0.2) /100WBC Sodium (135-145) mmol/L Potassium (3.3-5.1) mmol/L Chloride (96-108) mmol/L Carbon Dioxide (22-29) mmol/L Anion Gap (12-20) BUN (9-16) mg/dL Creatinine (0.5-1.4) mg/dL Estim Creat Clear Calc Estimated GFR Random Glucose (60-115) mg/dL Calcium (8.4-10.2) mg/dL Total Bilirubin (0.0-1.0) mg/dL Direct Bilirubin (0.0-0.5) mg/dL AST (5-31) U/L ALT (0-31) U/L Alkaline Phosphatase (39-117) U/L Total Protein (6.5-8.0) g/dL Albumin (3.5-5.0) g/dL Urine Color YELLOW Urine Appearance CLEAR Urine pH 6.0 (5.0-8.0) Ur Specific [place] <= 1.005 (1.005-1.025) Urine Protein NEG (NEG-TRACE) MG/DL Urine Glucose (UA) NEG (NEG) MG/DL Urine Ketones NEG (NEG) MG/DL Urine Blood NEG (NEG) Urine Nitrite NEG (NEG) Ur Leukocyte Esterase 2+ H (NEG) Urine RBC 1-4 (0) /HPF Urine WBC 1-4 (0-4) /HPF Ur Squamous Epith Cells 1+ /LPF Urine Bacteria 1+ /LPF Urine Opiates Screen Not Detected (Not Detect) Urine Fentanyl Screen Not Detected (Not Detect) Ur Barbiturates Screen Not Detected (Not Detect) Ur Phencyclidine Scrn Not Detected (Not Detect) Ur Amphetamines Screen Not Detected (Not Detect) U Benzodiazepines Scrn Not Detected (Not Detect) Urine Cocaine Screen Not Detected (Not Detect) U Marijuana (THC) Screen Not Detected (Not Detect) Ethyl Alcohol mg/dL COVID-19 (LANE) (Negative) COVID-19 Clin Com Discharge Plan Discharge Clinical Impression: Suicidal ideation Patient Disposition: Still a Patient Prescriptions: No Action clonidine HCl 0.1 mg Tablet 0.1 mg PO BID 30 Days Qty: 60 0RF Protocol: Hold for SBP< HOLD for SBP < : 90 albuterol sulfate [Ventolin HFA] 90 mcg/actuation Hfa Aerosol Inhaler 2 puff inhalation RQ4H PRN (Reason: shortness of breath or wheezin) 30 Days Qty: 1 0RF melatonin 3 mg Tablet 3 mg PO BEDTIME 30 Days Qty: 30 0RF hydroxyzine HCl 25 mg Tablet 25 mg PO TID PRN (Reason: Anxiety) 30 Days Qty: 90 0RF mirtazapine 15 mg Tablet 45 mg PO BEDTIME 30 Days Qty: 90 0RF fluoxetine 20 mg Capsule 20 mg PO DAILY 30 Days Qty: 30 0RF risperidone 1 mg Tablet 1 mg PO BEDTIME 30 Days Qty: 30 0RF aripiprazole [Abilify] 5 mg Tablet 5 mg PO DAILY 30 Days Qty: 30 0RF fluticasone furoate-vilanterol [Breo Ellipta] 100-25 mcg/dose Blister With Device 1 puff inhalation RDAILY 30 Days Qty: 1 0RF rosuvastatin 10 mg Tablet 10 mg PO DAILY 30 Days Qty: 30 0RF metoprolol tartrate 25 mg Tablet 12.5 mg PO DAILY 30 Days Qty: 15 0RF
[2022-02-07 17:26] LABS: Appearance Urine CLEAR; Color Urine YELLOW; Glucose Urine UA NEG (NEG); Leukocyte Esterase Urine 2+ (NEG); Nitrite Urine NEG (NEG); Specific Gravity - Urine <= 1.005 (1.005-1.025); UACC Culture Trigger YES; Urine Blood NEG (NEG); Urine Ketones NEG (NEG); Urine Protein NEG (NEG-TRACE)
[2022-02-07 17:34] LABS: Amphetamine Screen Urine Not Detected (Not Detect); Barbiturates, Urine Not Detected (Not Detect); Benzodiazepines Screen Urine Not Detected (Not Detect); Cannabinoid Screen Urine Not Detected (Not Detect); Cocaine Screen Urine Not Detected (Not Detect); Fentanyl, urine Not Detected (Not Detect); Opiate Screen Urine Not Detected (Not Detect); Phencyclidine Screen Urine Not Detected (Not Detect)
[2022-02-07 17:36] LABS: Bacteria Urine 1+ /LPF; Squamous Epithelial Cell Urine 1+ /LPF
--- NOTE | 2022-02-07 17:45 | MHC.CM.ED ---
CM met with patient pending N crisis evaluation for SI/depression as patients is also a pt in the ED. Pt feels she needs inpatient psych hospitalization and her will need placement while she is hospitalized, as she is the primary caregiver. Pt tells CM that her has many medical issues and needs constant care. She has been considering the [facility], but has not reached out to the facility. Tells CM her is vet connected. Pt tells CM her has been at [facility], facilities in [place], and [facility] in the past. Has requested these facilities for her . Vax/boosted/ Moderna. HCP is daughter, Lindsey Cali ([phone]), but she lives in [place] and is unable to provide any assistance. Pt is awaiting [facility] evaluation. CM will provide updates regarding husbands work-up and placement.
[2022-02-07 20:00] VITALS: RESP 16
[2022-02-07] MEDS: Melatonin 3 MG TABLET PO (23:32)
[2022-02-07] MEDS: Atorvastatin Calcium 40 MG TABLET PO (23:32)
[2022-02-07] MEDS: Mirtazapine 15 MG TABLET PO (23:32)
--- NOTE | 2022-02-08 | ECG_ITS ---
Test Reason : MEDICAL CLEARANCE Blood Pressure : / mmHG Vent. Rate : 076 BPM Atrial Rate : 076 BPM P-R Int : 152 ms QRS Dur : 128 ms QT Int : 442 ms P-R-T Axes : -12 037 -01 degrees QTc Int : 497 ms Normal sinus rhythm Left bundle branch block Abnormal ECG When compared with ECG of 25-NOV-2021 17:38, T wave amplitude has decreased in Anterior leads T wave inversion no longer evident in Lateral leads Referred By: Nery Villalba Electronically Signed By:CEDRIC ZHANG MD
[2022-02-08 03:29] VITALS: BP 132/76; PULSE 81; RESP 15; TEMP 36.4; O2SAT 95
--- NOTE | 2022-02-08 06:12 | PC.NURSE ---
Patient slept through the night, no distress observed/reported, behavior pleasant and non concerning, medication compliant, disposition per [facility] from community is section 12 inpatient bed search, will continue to monitor.
--- NOTE | 2022-02-08 07:19 | PC.NURSE ---
patient appears to remain asleep at present respirations are even and [id number] patient appears in no distress
[2022-02-08] MEDS: Metoprolol Succinate ER 12.5 MG HALFTAB.ER.24H PO (08:44)
[2022-02-08] MEDS: risperiDONE 1 MG TABLET PO (08:48)
[2022-02-08] MEDS: FLUoxetine HCl 20 MG CAPSULE 60 MG PO (08:48)
[2022-02-08 10:03] VITALS: BP 115/68; PULSE 85; RESP 16; TEMP 36.3; O2SAT 97
[2022-02-08 15:55] VITALS: BP 136/68; PULSE 85; RESP 16; TEMP 36.2; O2SAT 95
--- NOTE | 2022-02-08 17:55 | PC.NURSE ---
Pt is a COVID-negative 76-year-old female who presented to [facility] ED with depression/SI with no plan. Recent life stressors, hx PTSD. During assessment pt is A&O, INAD, very pleasant and cooperative, responds appropriately, uses humor. Appears depressed; affect appropriate to context. Pt at home has been caring for who requires total care and experiencing caregiver role strain. Poor sleep and appetite.? MedicalHx: Major abdominal surgery, has no large intestine or colon, leading to intermittent incontinence; degenerative disk disease; one fall in last six months; HIGH fall risk. PsycheHx: MDD, SI, PTSD, history of trauma.
[2022-02-08] MEDS: Atorvastatin Calcium 40 MG TABLET PO (20:31)
[2022-02-08] MEDS: clonazePAM 0.5 MG TABLET PO (20:31)
[2022-02-08] MEDS: Melatonin 3 MG TABLET PO (20:31)
[2022-02-08] MEDS: Mirtazapine 15 MG TABLET PO (20:31)
[2022-02-08 20:35] VITALS: BP 134/64
[2022-02-09] MEDS: Metoprolol Succinate ER 12.5 MG HALFTAB.ER.24H PO (08:05)
[2022-02-09] MEDS: FLUoxetine HCl 20 MG CAPSULE 60 MG PO (08:05)
[2022-02-09] MEDS: risperiDONE 1 MG TABLET PO (08:05)
[2022-02-09 08:08] VITALS: BP 139/71; PULSE 76; RESP 17; TEMP 36.3; O2SAT 95
[2022-02-09 09:32] LABS: Estimated Average Glucose 131 mg/dL; Hemoglobin A1c % 6.2 %
[2022-02-09 10:02] LABS: Alanine Aminotransferase 12 U/L (0-31); Albumin Level 4.1 g/dL (3.5-5.0); Alkaline Phosphatase 59 U/L (39-117); Anion Gap 16 (12-20); Aspartate Amino Transferase 15 U/L (5-31); Bilirubin Total 0.5 mg/dL (0.0-1.0); Blood Urea Nitrogen 12 mg/dL (9-16); Calcium 9.1 mg/dL (8.4-10.2); Carbon Dioxide 24 mmol/L (22-29); Chloride 104 mmol/L (96-108); Cholesterol 170 mg/dL; Creatinine Clr Calc Pharmacy 55.6; Estimated Glomerular Filt Rate > 60; Glucose Fasting 144 mg/dL (60-99); HDL Cholesterol 48 mg/dL; LDL Cholesterol Calculated 93 mg/dl; Sodium 139 mmol/L (135-145); Total Protein 6.9 g/dL (6.5-8.0); Triglycerides 146 mg/dL
[2022-02-09 10:24] LABS: Thyroid Stimulating Hormone 0.68 uIU/mL (0.32-4.0)
[2022-02-09 11:07] LABS: Folate 9.2 ng/mL (> or = 4.0); Vitamin B12 401 pg/mL (200-900)
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
[2022-02-09] MEDS: clonazePAM 0.5 MG TABLET PO ×2 (17:35→21:46)
[2022-02-09 18:00] VITALS: BP 151/83; PULSE 80; RESP 18; TEMP 36.1; O2SAT 96
[2022-02-09 18:55] VITALS: BMI 25.4
[2022-02-09 21:41] VITALS: BP 173/82; PULSE 80; RESP 16; TEMP 35.9; O2SAT 97
[2022-02-09] MEDS: Melatonin 3 MG TABLET PO (21:42)
[2022-02-09] MEDS: Atorvastatin Calcium 40 MG TABLET PO (21:42)
[2022-02-09] MEDS: Mirtazapine 30 MG TABLET PO (21:42)
[2022-02-09] MEDS: cloNIDine HCL 0.1 MG TABLET PO (21:43)
--- NOTE | 2022-02-10 | ECG_ITS ---
Test Reason : ABNORMAL QTC Blood Pressure : / mmHG Vent. Rate : 073 BPM Atrial Rate : 073 BPM P-R Int : 180 ms QRS Dur : 130 ms QT Int : 460 ms P-R-T Axes : 117 059 063 degrees QTc Int : 506 ms Normal sinus rhythm Left bundle branch block Abnormal ECG When compared with ECG of 08-FEB-2022 10:21, No significant change was found Referred By: Jaime Ayala Electronically Signed By:CEDRIC ZHANG MD
[2022-02-10] MEDS: hydrOXYzine HCL 25 MG TABLET PO (04:25)
[2022-02-10 08:45] VITALS: BP 132/70; PULSE 72; RESP 20; TEMP 36.3; O2SAT 95
[2022-02-10] MEDS: FLUoxetine HCl 20 MG CAPSULE 60 MG PO (08:51)
[2022-02-10] MEDS: Metoprolol Succinate ER 12.5 MG HALFTAB.ER.24H PO (08:51)
[2022-02-10] MEDS: cloNIDine HCL 0.1 MG TABLET PO ×2 (08:52→20:35)
[2022-02-10] MEDS: risperiDONE 1 MG TABLET PO (08:52)
--- NOTE | 2022-02-10 14:32 | PC.NURSE ---
Late entry: 1420- EKG completed and sent to .
--- NOTE | 2022-02-10 14:53 | HO.PSYCHPN ---
Subjective Subjective Date of Service: 02/10/22 Reason For Visit: SI Interim History: Patient seen. She reports she feels somewhat agitated today. She reports she didn't sleep well last night. She woke up a couple of times. She took PRN medications when she woke up in the middle of the night. She repots she is otherwise well. Denies SI. Denies AVH. Her QTc was prolonged to 497ms. Will repeat. Medication Compliance: Yes Review of Systems Review of Systems Constitutional : No Weight loss, No Fever, No Chills, No Night Sweats, No Fatigue, No Malaise ENT/Mouth : No Hearing loss, No Ear Pain, No Nasal Congestion, No Sinus Pain, No Hoarseness, No sore throat, No Rhinorrhea, No Swallowing Difficulty Eyes: No Eye Pain, No Swelling, No Redness, No Foreign Body, No Discharge, No Vision Changes Cardiovascular : No Chest Pain, No SOB, No Dyspnea on Exertion, No Orthopnea, No Edema, No Palpitations Respiratory : No Cough, No Sputum, No Wheezing, No Smoke Exposure, No Dyspnea Gastrointestinal : No Nausea, No Vomiting, No Diarrhea, No Constipation, No abdominal Pain, No Hematochezia, No Melena Genitourinary : no irregular bleeding, No Dysuria, No Urinary Frequency, No Hematuria, No Urinary Incontinence, No Urgency, No Flank Pain, No Urinary Flow Changes, No Hesitancy Musculoskeletal : No joint pain, No Myalgias, No Joint Swelling Skin : No Skin Lesions, No rash Neuro : No Weakness, No Numbness, No Paresthesias, No Loss of Consciousness, No Dizziness, No Headache Psych : Complaining of anxiety, depression, suicidal ideation, no homicidal ideation Heme/Lymph: No Bruising, No Bleeding,No Lymphadenopathy Endocrine : No Polyuria, No Polydipsia, No Temperature Intolerance Mental Status Exam Mental Status Exam Narrative: Appearance: casually groomed, fair hygiene in NAD Behavior:cooperative psychomotor: no agitation or retardation noted Speech:clear, normal rate/rhythm/volume, spontaneous Thought process:linear Thought content: no signs of psychosis, thinking is better for to go to facility accepting this. Mood: overwhelmed Affect: congruent SI:passive no plan or intent HI:none VH/AH:none Delusions:none Insight/judgment:fair x 2. Memory/cog: alert, oriented x 3. not formally tested. grossly intact to conversational testing. Diagnostics Vital Signs (24Hr): Vital Signs - 24 hr 02/09/22 21:41 02/10/22 08:45 02/10/22 18:00 Temperature 96.7 F L 97.4 F 97.8 F Pulse Rate 80 72 61 Respiratory Rate 16 20 16 Blood Pressure 173/82 H 132/70 119/58 L Pulse Oximetry 97 95 97 Oxygen Delivery Method Room Air Room Air Room Air BMI result Body Mass Index 25.4 Labs Results: 02/07/22 15:17 02/09/22 08:18 Labs: Laboratory Results - last 48 hr 02/09/22 02/09/22 02/09/22 08:18 08:18 08:18 Sodium 139 Potassium 5.0 Chloride 104 Carbon Dioxide 24 Anion Gap 16 BUN 12 Creatinine 0.85 Estim Creat Clear Calc 55.6 Estimated GFR > 60 Fasting Glucose 144 H Estimat Average Glucose 131 Hemoglobin A1c % 6.2 Calcium 9.1 Total Bilirubin 0.5 AST 15 ALT 12 Alkaline Phosphatase 59 Total Protein 6.9 Albumin 4.1 Triglycerides 146 Cholesterol 170 LDL Cholesterol, Calc 93 HDL Cholesterol 48 Vitamin B12 401 Folate 9.2 TSH 0.68 Free T4 1.00 Medications Medications Current Medications Acetaminophen (Acetaminophen 325 Mg Tablet) 650 mg PO Q6H PRN PRN Reason: Headache/Pain Mild Scale (1-3) Al Hydroxide/Mg Hydroxide (Magnesium Hydrox/Alum Hydrox 30 Ml Oral.Susp) 30 ml PO Q6H PRN PRN Reason: Heartburn/Nausea Atorvastatin Calcium (Atorvastatin Calcium 40 Mg Tablet) 40 mg PO BEDTIME [facility] Last Admin: 02/09/22 21:42 Dose: 40 mg Clonazepam (Clonazepam 0.5 Mg Tablet) 0.5 mg PO BID PRN PRN Reason: anxiety attack Last Admin: 02/09/22 21:46 Dose: 0.5 mg Clonidine HCl (Clonidine Hcl 0.1 Mg Tablet) 0.1 mg PO BID [facility]; Protocol Last Admin: 02/10/22 08:52 Dose: 0.1 mg Fluoxetine HCl (Fluoxetine Hcl 20 Mg Capsule) 60 mg PO DAILY [facility] Last Admin: 02/10/22 08:51 Dose: 60 mg Hydroxyzine HCl (Hydroxyzine Hcl 25 Mg Tablet) 25 mg PO Q6H PRN PRN Reason: Anxiety Last Admin: 02/10/22 04:25 Dose: 25 mg Magnesium Hydroxide (Milk Of Magnesia 30 Ml Oral.Susp) 30 ml PO DAILY PRN PRN Reason: Constipation Melatonin (Melatonin 3 Mg Tablet) 3 mg PO BEDTIME [facility] Last Admin: 02/09/22 21:42 Dose: 3 mg Metoprolol Succinate (Metoprolol Succinate Er 12.5 Mg Halftab.Er.24h) 12.5 mg PO DAILY [facility]; Protocol Last Admin: 02/10/22 08:51 Dose: 12.5 mg Mirtazapine (Mirtazapine 30 Mg Tablet) 30 mg PO BEDTIME [facility] Last Admin: 02/09/22 21:42 Dose: 30 mg Risperidone (Risperidone 1 Mg Tablet) 1 mg PO DAILY [facility] Last Admin: 02/10/22 08:52 Dose: 1 mg Allergies Allergies Allergy/AdvReac Type Severity Reaction Status Date / Time adhesive AdvReac Unknown Verified 04/21/21 23:21 aspirin AdvReac Unknown Verified 04/21/21 23:20 epinephrine AdvReac Unknown Verified 04/21/21 23:21 Assessment & Plan Assessment & Plan (1) MDD (major depressive disorder), recurrent episode, moderate: Status: Acute Code(s): F33.1 - Major depressive disorder, recurrent, moderate Plan Mrs. Hutson is a 76 year-old woman with hx of MDD, and suicide attempts, and ECT. Came to hospital at suggestion of disability case manager from [facility] due to pt reporting feeling more overwhelm due to caring for who requires 24/7 care. Pt in agreement to have go to long distance operator facility. Pt reports although overwhelmed and depressed, not as severe at other times. She has done well with ECT. At this time, she reports she wants to wait before deciding on ECT as depression situational. We discussed risks, benefits and alternative treatment options and she agrees to increase remeron from 15mg po qhs to 30mg po qhs. PLAN 1. Admit to M3, 15 minutes checks for safety. 2. increase remeron 30mg po qhs- pt also on prozac, will monitor for execissive serotonin avoid trazodone. 3. obtain collateral information 4. aftercare planning. 02/10: Repeat EKG shows QTc 506. Will consider med adjustments and consulting with cardiology. I spent minutes with the patient and/or on the patient floor today, greater than?50% of which was spent counseling/coordinating care. Reason for contiued inpatient stay Substantial Risk for: inability to function and rapid decompensation
--- NOTE | 2022-02-10 15:22 | PC.NURSE ---
report to DEBRA Arce
[2022-02-10 18:00] VITALS: BP 119/58; PULSE 61; RESP 16; TEMP 36.6; O2SAT 97
[2022-02-10] MEDS: Melatonin 3 MG TABLET PO (20:35)
[2022-02-10] MEDS: Mirtazapine 30 MG TABLET PO (20:35)
[2022-02-10] MEDS: Atorvastatin Calcium 40 MG TABLET PO (20:35)
[2022-02-11] MEDS: hydrOXYzine HCL 25 MG TABLET PO ×2 (03:57→21:28)
[2022-02-11] MEDS: Metoprolol Succinate ER 12.5 MG HALFTAB.ER.24H PO (09:04)
[2022-02-11] MEDS: cloNIDine HCL 0.1 MG TABLET PO ×2 (09:04→20:35)
[2022-02-11 09:05] VITALS: BP 144/64; PULSE 64; RESP 20; TEMP 36.4; O2SAT 95
[2022-02-11] MEDS: FLUoxetine HCl 20 MG CAPSULE 60 MG PO (09:05)
[2022-02-11] MEDS: risperiDONE 1 MG TABLET PO (09:05)
--- NOTE | 2022-02-11 14:55 | HO.PSYCHPN ---
Subjective Subjective Date of Service: 02/11/22 Reason For Visit: SI Interim History: Patient seen. She reports she is feeling well today. Repeat EKG showed a QTc of 506 ms. Patient reports she sees a process controller for mitral valve prolapse and also has a pacemaker. Dr. Dejesus is her process controller. Denies SI. Denies AVH. Review of Systems Review of Systems Constitutional : No Weight loss, No Fever, No Chills, No Night Sweats, No Fatigue, No Malaise ENT/Mouth : No Hearing loss, No Ear Pain, No Nasal Congestion, No Sinus Pain, No Hoarseness, No sore throat, No Rhinorrhea, No Swallowing Difficulty Eyes: No Eye Pain, No Swelling, No Redness, No Foreign Body, No Discharge, No Vision Changes Cardiovascular : No Chest Pain, No SOB, No Dyspnea on Exertion, No Orthopnea, No Edema, No Palpitations Respiratory : No Cough, No Sputum, No Wheezing, No Smoke Exposure, No Dyspnea Gastrointestinal : No Nausea, No Vomiting, No Diarrhea, No Constipation, No abdominal Pain, No Hematochezia, No Melena Genitourinary : no irregular bleeding, No Dysuria, No Urinary Frequency, No Hematuria, No Urinary Incontinence, No Urgency, No Flank Pain, No Urinary Flow Changes, No Hesitancy Musculoskeletal : No joint pain, No Myalgias, No Joint Swelling Skin : No Skin Lesions, No rash Neuro : No Weakness, No Numbness, No Paresthesias, No Loss of Consciousness, No Dizziness, No Headache Psych : Complaining of anxiety, depression, suicidal ideation, no homicidal ideation Heme/Lymph: No Bruising, No Bleeding,No Lymphadenopathy Endocrine : No Polyuria, No Polydipsia, No Temperature Intolerance Mental Status Exam Mental Status Exam Narrative: Appearance: casually groomed, fair hygiene in NAD Behavior:cooperative psychomotor: no agitation or retardation noted Speech:clear, normal rate/rhythm/volume, spontaneous Thought process:linear Thought content: no signs of psychosis, thinking is better for to go to facility accepting this. Mood: OK Affect: congruent SI:passive no plan or intent HI:none VH/AH:none Delusions:none Insight/judgment:fair x 2. Memory/cog: alert, oriented x 3. not formally tested. grossly intact to conversational testing. Diagnostics Vital Signs (24Hr): Vital Signs - 24 hr 02/11/22 09:05 02/11/22 18:00 02/11/22 20:42 Temperature 97.5 F 97.8 F Pulse Rate 64 76 Respiratory Rate 20 16 Blood Pressure 144/64 H 123/58 L 150/72 H Pulse Oximetry 95 96 Oxygen Delivery Method Room Air Room Air BMI result Body Mass Index 25.4 Labs Results: 02/07/22 15:17 02/09/22 08:18 Medications Medications Current Medications Acetaminophen (Acetaminophen 325 Mg Tablet) 650 mg PO Q6H PRN PRN Reason: Headache/Pain Mild Scale (1-3) Al Hydroxide/Mg Hydroxide (Magnesium Hydrox/Alum Hydrox 30 Ml Oral.Susp) 30 ml PO Q6H PRN PRN Reason: Heartburn/Nausea Atorvastatin Calcium (Atorvastatin Calcium 40 Mg Tablet) 40 mg PO BEDTIME [facility] Last Admin: 02/11/22 20:34 Dose: 40 mg Clonazepam (Clonazepam 0.5 Mg Tablet) 0.5 mg PO BID PRN PRN Reason: anxiety attack Last Admin: 02/09/22 21:46 Dose: 0.5 mg Clonidine HCl (Clonidine Hcl 0.1 Mg Tablet) 0.1 mg PO BID [facility]; Protocol Last Admin: 02/11/22 20:35 Dose: 0.1 mg Fluoxetine HCl (Fluoxetine Hcl 20 Mg Capsule) 60 mg PO DAILY [facility] Last Admin: 02/11/22 09:05 Dose: 60 mg Hydroxyzine HCl (Hydroxyzine Hcl 25 Mg Tablet) 25 mg PO Q6H PRN PRN Reason: Anxiety Last Admin: 02/11/22 03:57 Dose: 25 mg Magnesium Hydroxide (Milk Of Magnesia 30 Ml Oral.Susp) 30 ml PO DAILY PRN PRN Reason: Constipation Melatonin (Melatonin 3 Mg Tablet) 3 mg PO BEDTIME [facility] Last Admin: 02/11/22 20:34 Dose: 3 mg Metoprolol Succinate (Metoprolol Succinate Er 12.5 Mg Halftab.Er.24h) 12.5 mg PO DAILY [facility]; Protocol Last Admin: 02/11/22 09:04 Dose: 12.5 mg Mirtazapine (Mirtazapine 30 Mg Tablet) 30 mg PO BEDTIME [facility] Last Admin: 02/10/22 20:35 Dose: 30 mg Risperidone (Risperidone 1 Mg Tablet) 1 mg PO DAILY [facility] Last Admin: 02/11/22 09:05 Dose: 1 mg Allergies Allergies Allergy/AdvReac Type Severity Reaction Status Date / Time adhesive AdvReac Unknown Verified 04/21/21 23:21 aspirin AdvReac Unknown Verified 04/21/21 23:20 epinephrine AdvReac Unknown Verified 04/21/21 23:21 Assessment & Plan Assessment & Plan (1) MDD (major depressive disorder), recurrent episode, moderate: Status: Acute Code(s): F33.1 - Major depressive disorder, recurrent, moderate Plan Mrs. Hutson is a 76 year-old woman with hx of MDD, and suicide attempts, and ECT. Came to hospital at suggestion of manager rn case from [facility] due to pt reporting feeling more overwhelm due to caring for who requires /7 care. Pt in agreement to have go to intermediate facility. Pt reports although overwhelmed and depressed, not as severe at other times. She has done well with ECT. At this time, she reports she wants to wait before deciding on ECT as depression situational. We discussed risks, benefits and alternative treatment options and she agrees to increase remeron from 15mg po qhs to 30mg po qhs. PLAN 1. Admit to M3, 15 minutes checks for safety. 2. increase remeron 30mg po qhs- pt also on prozac, will monitor for execissive serotonin avoid trazodone. 3. obtain collateral information 4. aftercare planning. 02/10: Repeat EKG shows QTc 506. Will consider med adjustments and consulting with cardiology. 02/11: Hold Risperidone. Would recommend contact with patient's OP process controller and discussing vs switching to an alternative antipsychotic. I spent minutes with the patient and/or on the patient floor today, greater than?50% of which was spent counseling/coordinating care. Patient educated on: medication risk/benefits Informed Consent: understands Reason for contiued inpatient stay Substantial Risk for: inability to function and rapid decompensation
--- NOTE | 2022-02-11 15:28 | PC.NURSE ---
Report to DEBRA Arce
[2022-02-11 18:00] VITALS: BP 123/58; PULSE 76; RESP 16; TEMP 36.6; O2SAT 96
[2022-02-11] MEDS: Atorvastatin Calcium 40 MG TABLET PO (20:34)
[2022-02-11] MEDS: Melatonin 3 MG TABLET PO (20:34)
[2022-02-11 20:42] VITALS: BP 150/72
[2022-02-11] MEDS: clonazePAM 0.5 MG TABLET PO (21:28)
[2022-02-11] MEDS: Mirtazapine 30 MG TABLET PO (22:26)
[2022-02-12 08:28] VITALS: BP 129/71; PULSE 74; RESP 16; TEMP 36.1; O2SAT 97
[2022-02-12] MEDS: FLUoxetine HCl 20 MG CAPSULE 60 MG PO (08:30)
[2022-02-12] MEDS: Metoprolol Succinate ER 12.5 MG HALFTAB.ER.24H PO (08:31)
[2022-02-12] MEDS: Acetaminophen 325 MG TABLET 650 MG PO (08:31)
[2022-02-12] MEDS: cloNIDine HCL 0.1 MG TABLET PO ×2 (08:32→20:03)
--- NOTE | 2022-02-12 14:03 | HO.PSYCHPN ---
Subjective Subjective Date of Service: 02/12/22 Reason For Visit: SI Subjective Notes: Conditional Voluntary Interim History: The patient was transfer from [address] and [facility] psychiatry unit for continuation of care. On interview the patient denies active suicidal ideation, she reports anxiety and depression due to her who severely seeking she cannot take care of him. We discussed treatment options and she agreed to continue with the current regimen. Mental Status Exam Mental Status Exam Patient Appearance: Well Grooomed Patient Orientation: Person and Situation Level of Consciousness: Awake Patient Behavior: Cooperative Mood Description: Calm Affect Description: Constricted Patient Cognition Impaired: No Ability to Follow Directions: Good Speech Pattern: Clear Memory Description: Intact Hallucinations: None Delusions: Not Present Thought Process: Distracted Thought Content: positive for [place] and positive for Circumstantial Judgement: Fair Diagnostics Vital Signs (24Hr): Vital Signs - 24 hr 02/11/22 18:00 02/11/22 20:42 02/12/22 08:28 Temperature 97.8 F 97 F Pulse Rate 76 74 Respiratory Rate 16 16 Blood Pressure 123/58 L 150/72 H 129/71 Pulse Oximetry 96 97 Oxygen Delivery Method Room Air Room Air BMI result Body Mass Index 25.4 Labs Results: 02/07/22 15:17 02/09/22 08:18 Medications Medications Current Medications Acetaminophen (Acetaminophen 325 Mg Tablet) 650 mg PO Q6H PRN PRN Reason: Headache/Pain Mild Scale (1-3) Last Admin: 02/12/22 08:31 Dose: 650 mg Al Hydroxide/Mg Hydroxide (Magnesium Hydrox/Alum Hydrox 30 Ml Oral.Susp) 30 ml PO Q6H PRN PRN Reason: Heartburn/Nausea Atorvastatin Calcium (Atorvastatin Calcium 40 Mg Tablet) 40 mg PO BEDTIME [facility] Last Admin: 02/11/22 20:34 Dose: 40 mg Clonazepam (Clonazepam 0.5 Mg Tablet) 0.5 mg PO BID PRN PRN Reason: anxiety attack Last Admin: 02/11/22 21:28 Dose: 0.5 mg Clonidine HCl (Clonidine Hcl 0.1 Mg Tablet) 0.1 mg PO BID [facility]; Protocol Last Admin: 02/12/22 08:32 Dose: 0.1 mg Fluoxetine HCl (Fluoxetine Hcl 20 Mg Capsule) 60 mg PO DAILY [facility] Last Admin: 02/12/22 08:30 Dose: 60 mg Hydroxyzine HCl (Hydroxyzine Hcl 25 Mg Tablet) 25 mg PO Q6H PRN PRN Reason: Anxiety Last Admin: 02/11/22 21:28 Dose: 25 mg Magnesium Hydroxide (Milk Of Magnesia 30 Ml Oral.Susp) 30 ml PO DAILY PRN PRN Reason: Constipation Melatonin (Melatonin 3 Mg Tablet) 3 mg PO BEDTIME [facility] Last Admin: 02/11/22 20:34 Dose: 3 mg Metoprolol Succinate (Metoprolol Succinate Er 12.5 Mg Halftab.Er.24h) 12.5 mg PO DAILY [facility]; Protocol Last Admin: 02/12/22 08:31 Dose: 12.5 mg Mirtazapine (Mirtazapine 30 Mg Tablet) 30 mg PO BEDTIME [facility] Last Admin: 02/11/22 22:26 Dose: 30 mg Risperidone (Risperidone 1 Mg Tablet) 1 mg PO DAILY [facility] Last Admin: 02/11/22 09:05 Dose: 1 mg Allergies Allergies Allergy/AdvReac Type Severity Reaction Status Date / Time adhesive AdvReac Unknown Verified 04/21/21 23:21 aspirin AdvReac Unknown Verified 04/21/21 23:20 epinephrine AdvReac Unknown Verified 04/21/21 23:21 Assessment & Plan Assessment & Plan (1) MDD (major depressive disorder), recurrent episode, moderate: Status: Acute Code(s): F33.1 - Major depressive disorder, recurrent, moderate Plan Mrs. Hutson is a 76 year-old woman with hx of MDD, and suicide attempts, and ECT. Came to hospital at suggestion of special education case manager from [facility] due to pt reporting feeling more overwhelm due to caring for who requires 24/7 care. Pt in agreement to have go to long term care administrator facility. Pt reports although overwhelmed and depressed, not as severe at other times. She has done well with ECT. At this time, she reports she wants to wait before deciding on ECT as depression situational. We discussed risks, benefits and alternative treatment options and she agrees to increase remeron from 15mg po qhs to 30mg po qhs. PLAN 1. Transferred to Geriatric Psychiatry. 2. Continue with the same treatment I spent _20 minutes with the patient and/or on the patient floor today, greater than?50% of which was spent counseling/coordinating care. Reason for contiued inpatient stay Substantial Risk for: inability to function, rapid decompensation and med/psych decompensation
[2022-02-12 18:00] VITALS: BP 135/62; PULSE 61; TEMP 36.7; O2SAT 98
[2022-02-12] MEDS: Atorvastatin Calcium 40 MG TABLET PO (20:02)
[2022-02-12] MEDS: Mirtazapine 30 MG TABLET PO (20:03)
[2022-02-12] MEDS: Melatonin 3 MG TABLET PO (20:03)
[2022-02-13 07:38] VITALS: BP 162/71; PULSE 70; RESP 18; TEMP 36.4; O2SAT 93
[2022-02-13] MEDS: Metoprolol Succinate ER 12.5 MG HALFTAB.ER.24H PO (07:40)
[2022-02-13] MEDS: FLUoxetine HCl 20 MG CAPSULE 60 MG PO (07:41)
[2022-02-13] MEDS: cloNIDine HCL 0.1 MG TABLET PO ×2 (07:41→21:06)
--- NOTE | 2022-02-13 12:20 | HO.PSYCHPN ---
Subjective Subjective Date of Service: 02/13/22 Reason For Visit: SI Subjective Notes: Conditional Voluntary Interim History: The nursing staff reported the patient has been compliant with treatment, she slept well but apparently she woke up at 04:00 o'clock in the morning. Her appetite is normal. On interview the patient reports that she has not self destructive as before but still she is dysphoric due to her several psychosocial stressors, no new symptoms Mental Status Exam Mental Status Exam Patient Appearance: Well Grooomed Patient Orientation: Person and Situation Level of Consciousness: Awake Patient Behavior: Cooperative Mood Description: Depressed Affect Description: Constricted Patient Cognition Impaired: No Ability to Follow Directions: Good Speech Pattern: Clear Hallucinations: None Delusions: Not Present Thought Process: Linear Thought Content: positive for Circumstantial Judgement: Fair Diagnostics Vital Signs (24Hr): Vital Signs - 24 hr 02/12/22 18:00 02/13/22 07:38 Temperature 98.0 F 97.6 F Pulse Rate 61 70 Respiratory Rate 18 Blood Pressure 135/62 162/71 H Pulse Oximetry 98 93 Oxygen Delivery Method Room Air BMI result Body Mass Index 25.4 Labs Results: 02/07/22 15:17 02/09/22 08:18 Medications Medications Current Medications Acetaminophen (Acetaminophen 325 Mg Tablet) 650 mg PO Q6H PRN PRN Reason: Headache/Pain Mild Scale (1-3) Last Admin: 02/12/22 08:31 Dose: 650 mg Al Hydroxide/Mg Hydroxide (Magnesium Hydrox/Alum Hydrox 30 Ml Oral.Susp) 30 ml PO Q6H PRN PRN Reason: Heartburn/Nausea Atorvastatin Calcium (Atorvastatin Calcium 40 Mg Tablet) 40 mg PO BEDTIME [facility] Last Admin: 02/12/22 20:02 Dose: 40 mg Clonazepam (Clonazepam 0.5 Mg Tablet) 0.5 mg PO BID PRN PRN Reason: anxiety attack Last Admin: 02/11/22 21:28 Dose: 0.5 mg Clonidine HCl (Clonidine Hcl 0.1 Mg Tablet) 0.1 mg PO BID [facility]; Protocol Last Admin: 02/13/22 07:41 Dose: 0.1 mg Fluoxetine HCl (Fluoxetine Hcl 20 Mg Capsule) 60 mg PO DAILY [facility] Last Admin: 02/13/22 07:41 Dose: 60 mg Hydroxyzine HCl (Hydroxyzine Hcl 25 Mg Tablet) 25 mg PO Q6H PRN PRN Reason: Anxiety Last Admin: 02/11/22 21:28 Dose: 25 mg Magnesium Hydroxide (Milk Of Magnesia 30 Ml Oral.Susp) 30 ml PO DAILY PRN PRN Reason: Constipation Melatonin (Melatonin 3 Mg Tablet) 3 mg PO BEDTIME [facility] Last Admin: 02/12/22 20:03 Dose: 3 mg Metoprolol Succinate (Metoprolol Succinate Er 12.5 Mg Halftab.Er.24h) 12.5 mg PO DAILY [facility]; Protocol Last Admin: 02/13/22 07:40 Dose: 12.5 mg Mirtazapine (Mirtazapine 30 Mg Tablet) 30 mg PO BEDTIME [facility] Last Admin: 02/12/22 20:03 Dose: 30 mg Risperidone (Risperidone 1 Mg Tablet) 1 mg PO DAILY [facility] Last Admin: 02/11/22 09:05 Dose: 1 mg Allergies Allergies Allergy/AdvReac Type Severity Reaction Status Date / Time adhesive AdvReac Unknown Verified 04/21/21 23:21 aspirin AdvReac Unknown Verified 04/21/21 23:20 epinephrine AdvReac Unknown Verified 04/21/21 23:21 Assessment & Plan Assessment & Plan (1) MDD (major depressive disorder), recurrent episode, moderate: Status: Acute Code(s): F33.1 - Major depressive disorder, recurrent, moderate Plan Mrs. Hutson is a 76 year-old woman with hx of MDD, and suicide attempts, and ECT. Came to hospital at suggestion of case packer from [facility] due to pt reporting feeling more overwhelm due to caring for who requires 24/7 care. Pt in agreement to have go to skilled nursing facility. Pt reports although overwhelmed and depressed, not as severe at other times. She has done well with ECT. At this time, she reports she wants to wait before deciding on ECT as depression situational. We discussed risks, benefits and alternative treatment options and she agrees to increase remeron from 15mg po qhs to 30mg po qhs. PLAN 1. Continue with the same treatment I spent ___20___ minutes with the patient and/or on the patient floor today, greater than?50% of which was spent counseling/coordinating care. Reason for contiued inpatient stay Substantial Risk for: inability to function, rapid decompensation and med/psych decompensation
[2022-02-13] MEDS: Acetaminophen 325 MG TABLET 650 MG PO (14:31)
[2022-02-13] MEDS: hydrOXYzine HCL 25 MG TABLET PO (18:32)
[2022-02-13 20:07] VITALS: BP 149/72; PULSE 61; RESP 15; TEMP 36.4; O2SAT 97
[2022-02-13] MEDS: Mirtazapine 30 MG TABLET PO (21:06)
[2022-02-13] MEDS: Atorvastatin Calcium 40 MG TABLET PO (21:06)
[2022-02-13] MEDS: Melatonin 3 MG TABLET PO (21:06)
[2022-02-14] MEDS: traZODone HCL 50 MG TABLET PO (03:33)
[2022-02-14 07:44] VITALS: BP 127/60; PULSE 61; RESP 17; TEMP 36.7; O2SAT 96
[2022-02-14] MEDS: FLUoxetine HCl 20 MG CAPSULE 60 MG PO (08:08)
[2022-02-14] MEDS: Metoprolol Succinate ER 12.5 MG HALFTAB.ER.24H PO (08:09)
[2022-02-14] MEDS: cloNIDine HCL 0.1 MG TABLET PO ×2 (08:10→20:06)
[2022-02-14] MEDS: Acetaminophen 325 MG TABLET 650 MG PO ×2 (10:46→20:04)
--- NOTE | 2022-02-14 13:01 | HO.PSYCHPN ---
Subjective Subjective Date of Service: 02/14/22 Reason For Visit: SI Subjective Notes: Conditional Voluntary Interim History: The nursing staff reported that the patient slept poorly last night. The secondary social studies teacher explained that the patient wants to go back to her apartment, she is fully aware that her needs more help. On interview the patient denies active suicidal ideation but she looks dysphoric, needs encouragement for ADLs. Mental Status Exam Mental Status Exam Patient Appearance: Well Grooomed Patient Orientation: Person and Situation Level of Consciousness: Awake Patient Behavior: Cooperative Mood Description: Constricted Affect Description: Constricted Patient Cognition Impaired: Yes Ability to Follow Directions: Good Speech Pattern: Clear Hallucinations: None Delusions: Not Present Thought Process: Goal Oriented Thought Content: positive for [place] and positive for Circumstantial Judgement: Fair Diagnostics Vital Signs (24Hr): Vital Signs - 24 hr 02/13/22 20:07 02/14/22 07:44 Temperature 97.6 F 98.0 F Pulse Rate 61 61 Respiratory Rate 15 17 Blood Pressure 149/72 H 127/60 Pulse Oximetry 97 96 Oxygen Delivery Method Room Air Room Air BMI result Body Mass Index 25.4 Labs Results: 02/07/22 15:17 02/09/22 08:18 Medications Medications Current Medications Acetaminophen (Acetaminophen 325 Mg Tablet) 650 mg PO Q6H PRN PRN Reason: Headache/Pain Mild Scale (1-3) Last Admin: 02/14/22 10:46 Dose: 650 mg Al Hydroxide/Mg Hydroxide (Magnesium Hydrox/Alum Hydrox 30 Ml Oral.Susp) 30 ml PO Q6H PRN PRN Reason: Heartburn/Nausea Atorvastatin Calcium (Atorvastatin Calcium 40 Mg Tablet) 40 mg PO BEDTIME [facility] Last Admin: 02/13/22 21:06 Dose: 40 mg Clonazepam (Clonazepam 0.5 Mg Tablet) 0.5 mg PO BID PRN PRN Reason: anxiety attack Last Admin: 02/11/22 21:28 Dose: 0.5 mg Clonidine HCl (Clonidine Hcl 0.1 Mg Tablet) 0.1 mg PO BID [facility]; Protocol Last Admin: 02/14/22 08:10 Dose: 0.1 mg Fluoxetine HCl (Fluoxetine Hcl 20 Mg Capsule) 60 mg PO DAILY [facility] Last Admin: 02/14/22 08:08 Dose: 60 mg Hydroxyzine HCl (Hydroxyzine Hcl 25 Mg Tablet) 25 mg PO Q6H PRN PRN Reason: Anxiety Last Admin: 02/13/22 18:32 Dose: 25 mg Magnesium Hydroxide (Milk Of Magnesia 30 Ml Oral.Susp) 30 ml PO DAILY PRN PRN Reason: Constipation Melatonin (Melatonin 3 Mg Tablet) 3 mg PO BEDTIME [facility] Last Admin: 02/13/22 21:06 Dose: 3 mg Metoprolol Succinate (Metoprolol Succinate Er 12.5 Mg Halftab.Er.24h) 12.5 mg PO DAILY [facility]; Protocol Last Admin: 02/14/22 08:09 Dose: 12.5 mg Mirtazapine (Mirtazapine 30 Mg Tablet) 30 mg PO BEDTIME [facility] Last Admin: 02/13/22 21:06 Dose: 30 mg Risperidone (Risperidone 1 Mg Tablet) 1 mg PO DAILY [facility] Last Admin: 02/11/22 09:05 Dose: 1 mg Trazodone HCl (Trazodone Hcl 50 Mg Tablet) 50 mg PO BEDTIME PRN PRN Reason: insomnia Last Admin: 02/14/22 03:33 Dose: 50 mg Allergies Allergies Allergy/AdvReac Type Severity Reaction Status Date / Time adhesive AdvReac Unknown Verified 04/21/21 23:21 aspirin AdvReac Unknown Verified 04/21/21 23:20 epinephrine AdvReac Unknown Verified 04/21/21 23:21 Assessment & Plan Assessment & Plan (1) MDD (major depressive disorder), recurrent episode, moderate: Status: Acute Code(s): F33.1 - Major depressive disorder, recurrent, moderate Plan Mrs. Hutson is a 76 year-old woman with hx of MDD, and suicide attempts, and ECT. Came to hospital at suggestion of hospice case manager from [facility] due to pt reporting feeling more overwhelm due to caring for who requires 24/7 care. Pt in agreement to have go to terminal supervisor facility. Pt reports although overwhelmed and depressed, not as severe at other times. She has done well with ECT. At this time, she reports she wants to wait before deciding on ECT as depression situational. We discussed risks, benefits and alternative treatment options and she agrees to increase remeron from 15mg po qhs to 30mg po qhs. PLAN 1. Continue with the same treatment I spent ___20___ minutes with the patient and/or on the patient floor today, greater than?50% of which was spent counseling/coordinating care. Reason for contiued inpatient stay Substantial Risk for: inability to function, rapid decompensation and med/psych decompensation
[2022-02-14 18:00] VITALS: BP 129/63; PULSE 60; RESP 16; TEMP 36.8; O2SAT 95
[2022-02-14] MEDS: Melatonin 3 MG TABLET PO (20:04)
[2022-02-14] MEDS: Atorvastatin Calcium 40 MG TABLET PO (20:04)
[2022-02-14] MEDS: Mirtazapine 30 MG TABLET PO (20:06)
[2022-02-14] MEDS: traZODone HCL 100 MG TABLET PO (20:25)
[2022-02-15 07:35] VITALS: BP 116/60; PULSE 60; RESP 17; TEMP 36.3; O2SAT 93
[2022-02-15] MEDS: Metoprolol Succinate ER 12.5 MG HALFTAB.ER.24H PO (08:37)
[2022-02-15] MEDS: cloNIDine HCL 0.1 MG TABLET PO ×2 (08:37→20:49)
[2022-02-15] MEDS: FLUoxetine HCl 20 MG CAPSULE 60 MG PO (08:37)
[2022-02-15 13:04] LABS: Appearance Urine CLEAR; Color Urine YELLOW; Glucose Urine UA NEG (NEG); Leukocyte Esterase Urine NEG (NEG); Nitrite Urine NEG (NEG); Urine Blood NEG (NEG); Urine Ketones NEG (NEG); Urine Protein NEG (NEG-TRACE)
--- NOTE | 2022-02-15 13:11 | P.PNPSI_ITS ---
Subjective Subjective Date of Service: 02/15/22 Reason For Visit: SI Subjective Notes: Conditional Voluntary Interim History: The nursing staff reported the patient slept well she has been compliant with medications. She was incontinent of urine, but something that is very unusual in her since she is highly functional. The social media community manager contact her daughter and probably they will be working on an early discharge plan on Saturday. OT did a [place] test and she scored 25/30 and he has an cognitive test is 4.8. On interview the patient denies new symptoms she states that she has not self destructive as before. Still dysphoric. New UA came back negative Mental Status Exam Mental Status Exam Patient Appearance: Well Grooomed Patient Orientation: Person and Situation Level of Consciousness: Awake Patient Behavior: Cooperative Mood Description: Calm Affect Description: Constricted Patient Cognition Impaired: No Ability to Follow Directions: Good Speech Pattern: Clear Hallucinations: None Delusions: Not Present Thought Process: Linear Thought Content: positive for Intact Judgement: Fair Diagnostics Vital Signs (24Hr): Vital Signs - 24 hr 02/14/22 18:00 02/15/22 07:35 Temperature 98.2 F 97.3 F Pulse Rate 60 60 Respiratory Rate 16 17 Blood Pressure 129/63 116/60 Pulse Oximetry 95 93 Oxygen Delivery Method Room Air Room Air BMI result Body Mass Index 25.4 Labs Results: 02/07/22 15:17 02/09/22 08:18 Labs: Laboratory Results - last 48 hr 02/15/22 12:30 Urine Color YELLOW Urine Appearance CLEAR Urine pH 6.0 Ur Specific [place] 1.020 Urine Protein NEG Urine Glucose (UA) NEG Urine Ketones NEG Urine Blood NEG Urine Nitrite NEG Ur Leukocyte Esterase NEG Medications Medications Current Medications Acetaminophen (Acetaminophen 325 Mg Tablet) 650 mg PO Q6H PRN PRN Reason: Headache/Pain Mild Scale (1-3) Last Admin: 02/14/22 20:04 Dose: 650 mg Al Hydroxide/Mg Hydroxide (Magnesium Hydrox/Alum Hydrox 30 Ml Oral.Susp) 30 ml PO Q6H PRN PRN Reason: Heartburn/Nausea Atorvastatin Calcium (Atorvastatin Calcium 40 Mg Tablet) 40 mg PO BEDTIME [facility] Last Admin: 02/14/22 20:04 Dose: 40 mg Clonazepam (Clonazepam 0.5 Mg Tablet) 0.5 mg PO BID PRN PRN Reason: anxiety attack Last Admin: 02/11/22 21:28 Dose: 0.5 mg Clonidine HCl (Clonidine Hcl 0.1 Mg Tablet) 0.1 mg PO BID [facility]; Protocol Last Admin: 02/15/22 08:37 Dose: 0.1 mg Fluoxetine HCl (Fluoxetine Hcl 20 Mg Capsule) 60 mg PO DAILY [facility] Last Admin: 02/15/22 08:37 Dose: 60 mg Hydroxyzine HCl (Hydroxyzine Hcl 25 Mg Tablet) 25 mg PO Q6H PRN PRN Reason: Anxiety Last Admin: 02/13/22 18:32 Dose: 25 mg Magnesium Hydroxide (Milk Of Magnesia 30 Ml Oral.Susp) 30 ml PO DAILY PRN PRN Reason: Constipation Melatonin (Melatonin 3 Mg Tablet) 3 mg PO BEDTIME [facility] Last Admin: 02/14/22 20:04 Dose: 3 mg Metoprolol Succinate (Metoprolol Succinate Er 12.5 Mg Halftab.Er.24h) 12.5 mg PO DAILY [facility]; Protocol Last Admin: 02/15/22 08:37 Dose: 12.5 mg Mirtazapine (Mirtazapine 30 Mg Tablet) 30 mg PO BEDTIME [facility] Last Admin: 02/14/22 20:06 Dose: 30 mg Risperidone (Risperidone 1 Mg Tablet) 1 mg PO DAILY [facility] Last Admin: 02/11/22 09:05 Dose: 1 mg Trazodone HCl (Trazodone Hcl 100 Mg Tablet) 100 mg PO BEDTIME PRN PRN Reason: insomnia Last Admin: 02/14/22 20:25 Dose: 100 mg Allergies Allergies Allergy/AdvReac Type Severity Reaction Status Date / Time adhesive AdvReac Unknown Verified 04/21/21 23:21 aspirin AdvReac Unknown Verified 04/21/21 23:20 epinephrine AdvReac Unknown Verified 04/21/21 23:21 Assessment & Plan Assessment & Plan (1) MDD (major depressive disorder), recurrent episode, moderate: Status: Acute Code(s): F33.1 - Major depressive disorder, recurrent, moderate Plan Mrs. Hutson is a 76 year-old woman with hx of MDD, and suicide attempts, and ECT. Came to hospital at suggestion of correctional counselor/case manager from [facility] due to pt reporting feeling more overwhelm due to caring for who requires 24/7 care. Pt in agreement to have go to alf facility. Pt reports although overwhelmed and depressed, not as severe at other times. She has done well with ECT. At this time, she reports she wants to wait before deciding on ECT as depression situational. We discussed risks, benefits and alternative treatment options and she agrees to increase remeron from 15mg po qhs to 30mg po qhs. PLAN 1. Continue with the same treatment. 2. Start working on discharge planning I spent ___20___ minutes with the patient and/or on the patient floor today, gr eater than?50% of which was spent counseling/coordinating care. Reason for contiued inpatient stay Substantial Risk for: inability to function, rapid decompensation and med/psych decompensation
[2022-02-15] MEDS: Acetaminophen 325 MG TABLET 650 MG PO (15:46)
[2022-02-15 19:30] VITALS: BP 141/63; PULSE 63; TEMP 37.1
[2022-02-15] MEDS: Melatonin 3 MG TABLET PO (20:48)
[2022-02-15] MEDS: Mirtazapine 30 MG TABLET PO (20:48)
[2022-02-15] MEDS: Atorvastatin Calcium 40 MG TABLET PO (20:48)
[2022-02-15] MEDS: traZODone HCL 100 MG TABLET PO (20:48)
[2022-02-16] MEDS: hydrOXYzine HCL 25 MG TABLET PO (02:29)
[2022-02-16 08:10] VITALS: BP 111/55; PULSE 79; RESP 16; TEMP 36.3; O2SAT 94
[2022-02-16] MEDS: FLUoxetine HCl 20 MG CAPSULE 60 MG PO (08:11)
[2022-02-16] MEDS: Metoprolol Succinate ER 12.5 MG HALFTAB.ER.24H PO (08:12)
[2022-02-16] MEDS: cloNIDine HCL 0.1 MG TABLET PO ×2 (08:12→20:21)
[2022-02-16 13:53] VITALS: BMI 25.8
[2022-02-16] MEDS: Acetaminophen 325 MG TABLET 650 MG PO (16:06)
--- NOTE | 2022-02-16 17:33 | P.PNPSI_ITS ---
Subjective Subjective Date of Service: 02/16/22 Reason For Visit: SI Subjective Notes: Nielsen Warning Interim History: Pt seen and spoke with team. She is discharging on Saturday. Her will be discharging from his hospital as well, there for medical issues. I spoke with pt and she reports her mood has been good. Says she hasnt been eating too well, no appetite, but this has been going on for a while. drinks ensure. No GI concerns. Has a toothache, acting up every afternoon, tylenol helps. Sleep is not that good lately, will wake up about 2-3am in the morning and takes atarax and then goes back to sleep. Says trazodone helps. Daytime energy has been okay. Says anxiety today is okay. No med changes made today. Medication Compliance: Yes Side effects from medications: No Attending Groups: Yes Review of Systems Acute medical concerns: No Medical Review of Systems: unchanged Mental Status Exam Mental Status Exam Narrative: Patient Appearance: Well Grooomed Patient Orientation: Person and Situation Level of Consciousness: Awake Patient Behavior: Cooperative Mood Description: Calm Affect Description: Constricted Patient Cognition Impaired: No Ability to Follow Directions: Good Speech Pattern: Clear Hallucinations: None Delusions: Not Present Thought Process: Linear Thought Content: positive for Intact Judgement: Fair Diagnostics Vital Signs (24Hr): Vital Signs - 24 hr 02/15/22 19:30 02/16/22 08:10 Temperature 98.7 F 97.3 F Pulse Rate 63 79 Respiratory Rate 16 Blood Pressure 141/63 H 111/55 L Pulse Oximetry 94 Oxygen Delivery Method Room Air BMI result Body Mass Index 25.8 Labs Results: 02/07/22 15:17 02/09/22 08:18 Labs: Laboratory Results - last 48 hr 02/15/22 12:30 Urine Color YELLOW Urine Appearance CLEAR Urine pH 6.0 Ur Specific [place] 1.020 Urine Protein NEG Urine Glucose (UA) NEG Urine Ketones NEG Urine Blood NEG Urine Nitrite NEG Ur Leukocyte Esterase NEG Medications Medications Current Medications Acetaminophen (Acetaminophen 325 Mg Tablet) 650 mg PO Q6H PRN PRN Reason: Headache/Pain Mild Scale (1-3) Last Admin: 02/16/22 16:06 Dose: 650 mg Al Hydroxide/Mg Hydroxide (Magnesium Hydrox/Alum Hydrox 30 Ml Oral.Susp) 30 ml PO Q6H PRN PRN Reason: Heartburn/Nausea Atorvastatin Calcium (Atorvastatin Calcium 40 Mg Tablet) 40 mg PO BEDTIME [facility] Last Admin: 02/15/22 20:48 Dose: 40 mg Clonazepam (Clonazepam 0.5 Mg Tablet) 0.5 mg PO BID PRN PRN Reason: anxiety attack Last Admin: 02/11/22 21:28 Dose: 0.5 mg Clonidine HCl (Clonidine Hcl 0.1 Mg Tablet) 0.1 mg PO BID [facility]; Protocol Last Admin: 02/16/22 08:12 Dose: 0.1 mg Fluoxetine HCl (Fluoxetine Hcl 20 Mg Capsule) 60 mg PO DAILY [facility] Last Admin: 02/16/22 08:11 Dose: 60 mg Hydroxyzine HCl (Hydroxyzine Hcl 25 Mg Tablet) 25 mg PO Q6H PRN PRN Reason: Anxiety Last Admin: 02/16/22 02:29 Dose: 25 mg Magnesium Hydroxide (Milk Of Magnesia 30 Ml Oral.Susp) 30 ml PO DAILY PRN PRN Reason: Constipation Melatonin (Melatonin 3 Mg Tablet) 3 mg PO BEDTIME [facility] Last Admin: 02/15/22 20:48 Dose: 3 mg Metoprolol Succinate (Metoprolol Succinate Er 12.5 Mg Halftab.Er.24h) 12.5 mg PO DAILY [facility]; Protocol Last Admin: 02/16/22 08:12 Dose: 12.5 mg Mirtazapine (Mirtazapine 30 Mg Tablet) 30 mg PO BEDTIME [facility] Last Admin: 02/15/22 20:48 Dose: 30 mg Risperidone (Risperidone 1 Mg Tablet) 1 mg PO DAILY [facility] Last Admin: 02/11/22 09:05 Dose: 1 mg Trazodone HCl (Trazodone Hcl 100 Mg Tablet) 100 mg PO BEDTIME PRN PRN Reason: insomnia Last Admin: 02/15/22 20:48 Dose: 100 mg Allergies Allergies Allergy/AdvReac Type Severity Reaction Status Date / Time adhesive AdvReac Unknown Verified 04/21/21 23:21 aspirin AdvReac Unknown Verified 04/21/21 23:20 epinephrine AdvReac Unknown Verified 04/21/21 23:21 Assessment & Plan Assessment & Plan (1) MDD (major depressive disorder), recurrent episode, moderate: Status: Acute Code(s): F33.1 - Major depressive disorder, recurrent, moderate Plan Mrs. Hutson is a 76 year-old woman with hx of MDD, and suicide attempts, and ECT. Came to hospital at suggestion of medical case worker from [facility] due to pt reporting feeling more overwhelm due to caring for who req uires 28/01 care. Pt in agreement to have go to director of math facility. Pt reports although overwhelmed and depressed, not as severe at other times. She has done well with ECT. At this time, she reports she wants to wait before deciding on ECT as depression situational. We discussed risks, benefits and alternative treatment options and she agrees to increase remeron from 15mg po qhs to 30mg po qhs. PLAN 1. Continue with the same treatment. 2. Start working on discharge planning I spent minutes with the patient and/or on the patient floor today, greater than?50% of which was spent counseling/coordinating care. Patient educated on: therapeutic strategies Reason for contiued inpatient stay Substantial Risk for: med/psych decompensation
[2022-02-16 18:00] VITALS: BP 131/60; PULSE 58; RESP 18; TEMP 35.8; O2SAT 93
[2022-02-16] MEDS: Mirtazapine 30 MG TABLET PO (20:21)
[2022-02-16] MEDS: Melatonin 3 MG TABLET PO (20:21)
[2022-02-16] MEDS: traZODone HCL 100 MG TABLET PO (20:21)
[2022-02-16] MEDS: Atorvastatin Calcium 40 MG TABLET PO (20:21)
[2022-02-17 06:00] VITALS: BP 118/70; PULSE 56; RESP 18; TEMP 36.1; O2SAT 96
[2022-02-17] MEDS: cloNIDine HCL 0.1 MG TABLET PO ×2 (08:30→20:49)
[2022-02-17] MEDS: Metoprolol Succinate ER 12.5 MG HALFTAB.ER.24H PO (08:30)
[2022-02-17] MEDS: FLUoxetine HCl 20 MG CAPSULE 60 MG PO (08:30)
--- NOTE | 2022-02-17 13:46 | P.PNPSI_ITS ---
Subjective Subjective Date of Service: 02/17/22 Reason For Visit: SI Subjective Notes: Conditional Voluntary Medical Problems Affecting Mental Status: No Interim History: Pleasant and engaged. Reports relief that her is at [facility] getting cared for. Reports feeling overwhelmed when he is at home with 24 hour care needs and limited assistance. Feels supported in the hospital and feels that mood is gradually improving and hopeful for discharge after the weekend. sleep energy and appetite good. No medication concerns. Has been communicating with her 's by a clergy. Looking forward to visiting him in person after the weekend with the help of her daughter. Medication Compliance: Yes Side effects from medications: No Attending Groups: Yes Review of Systems Review of Systems Nothing acute Mental Status Exam Mental Status Exam Narrative: pleasant. Engaged. Watching television. Fairly presented. Euthymic. No SI. No HI. No agitation. No psychosis. Insight and judgment good Diagnostics Vital Signs (24Hr): Vital Signs - 24 hr 02/16/22 18:00 02/17/22 06:00 Temperature 96.5 F L 96.9 F Pulse Rate 58 56 Respiratory Rate 18 18 Blood Pressure 131/60 118/70 Pulse Oximetry 93 96 Oxygen Delivery Method Room Air Room Air BMI result Body Mass Index 25.8 Labs Results: 02/07/22 15:17 02/09/22 08:18 Medications Medications Current Medications Acetaminophen (Acetaminophen 325 Mg Tablet) 650 mg PO Q6H PRN PRN Reason: Headache/Pain Mild Scale (1-3) Last Admin: 02/16/22 16:06 Dose: 650 mg Al Hydroxide/Mg Hydroxide (Magnesium Hydrox/Alum Hydrox 30 Ml Oral.Susp) 30 ml PO Q6H PRN PRN Reason: Heartburn/Nausea Atorvastatin Calcium (Atorvastatin Calcium 40 Mg Tablet) 40 mg PO BEDTIME [facility] Last Admin: 02/16/22 20:21 Dose: 40 mg Clonazepam (Clonazepam 0.5 Mg Tablet) 0.5 mg PO BID PRN PRN Reason: anxiety attack Last Admin: 02/11/22 21:28 Dose: 0.5 mg Clonidine HCl (Clonidine Hcl 0.1 Mg Tablet) 0.1 mg PO BID [facility]; Protocol Last Admin: 02/17/22 08:30 Dose: 0.1 mg Fluoxetine HCl (Fluoxetine Hcl 20 Mg Capsule) 60 mg PO DAILY [facility] Last Admin: 02/17/22 08:30 Dose: 60 mg Hydroxyzine HCl (Hydroxyzine Hcl 25 Mg Tablet) 25 mg PO Q6H PRN PRN Reason: Anxiety Last Admin: 02/16/22 02:29 Dose: 25 mg Magnesium Hydroxide (Milk Of Magnesia 30 Ml Oral.Susp) 30 ml PO DAILY PRN PRN Reason: Constipation Melatonin (Melatonin 3 Mg Tablet) 3 mg PO BEDTIME [facility] Last Admin: 02/16/22 20:21 Dose: 3 mg Metoprolol Succinate (Metoprolol Succinate Er 12.5 Mg Halftab.Er.24h) 12.5 mg PO DAILY [facility]; Protocol Last Admin: 02/17/22 08:30 Dose: 12.5 mg Mirtazapine (Mirtazapine 30 Mg Tablet) 30 mg PO BEDTIME [facility] Last Admin: 02/16/22 20:21 Dose: 30 mg Risperidone (Risperidone 1 Mg Tablet) 1 mg PO DAILY [facility] Last Admin: 02/11/22 09:05 Dose: 1 mg Trazodone HCl (Trazodone Hcl 100 Mg Tablet) 100 mg PO BEDTIME PRN PRN Reason: insomnia Last Admin: 02/16/22 20:21 Dose: 100 mg Allergies Allergies Allergy/AdvReac Type Severity Reaction Status Date / Time adhesive AdvReac Unknown Verified 04/21/21 23:21 aspirin AdvReac Unknown Verified 04/21/21 23:20 epinephrine AdvReac Unknown Verified 04/21/21 23:21 Assessment & Plan Assessment & Plan (1) MDD (major depressive disorder), recurrent episode, moderate: Status: Acute Code(s): F33.1 - Major depressive disorder, recurrent, moderate Plan Mrs. Hutson is a 76 year-old woman with hx of MDD, and suicide attempts, and ECT. Came to hospital at suggestion of case operator from [facility] due to pt reporting feeling more overwhelm due to caring for who requires 24/7 care. Pt in agreement to have go to long-term facility. Pt reports although overwhelmed and depressed, not as severe at other times. She has done well with ECT. At this time, she reports she wants to wait before deciding on ECT as depression situational. We discussed risks, benefits and alternative treatment options and she agrees to increase remeron from 15mg po qhs to 30mg po qhs. PLAN 1. Continue with the same treatment. 2. Start working on discharge planning 02/17/2022: No changes. Planned discharge Saturday I spent minutes with the patient and/or on the patient floor today, grea ter than?50% of which was spent counseling/coordinating care. Reason for contiued inpatient stay Substantial Risk for: rapid decompensation
[2022-02-17 18:00] VITALS: BP 144/70; PULSE 61; RESP 16; TEMP 36.1; O2SAT 94
[2022-02-17] MEDS: traZODone HCL 100 MG TABLET PO (20:49)
[2022-02-17] MEDS: Melatonin 3 MG TABLET PO (20:49)
[2022-02-17] MEDS: Atorvastatin Calcium 40 MG TABLET PO (20:49)
[2022-02-17] MEDS: Mirtazapine 30 MG TABLET PO (20:49)
[2022-02-18 06:00] VITALS: BP 133/58; PULSE 63; RESP 18; TEMP 36.4; O2SAT 92
[2022-02-18] MEDS: Metoprolol Succinate ER 12.5 MG HALFTAB.ER.24H PO (07:57)
[2022-02-18] MEDS: cloNIDine HCL 0.1 MG TABLET PO ×2 (07:58→20:14)
[2022-02-18] MEDS: FLUoxetine HCl 20 MG CAPSULE 60 MG PO (07:58)
--- NOTE | 2022-02-18 09:58 | P.PNPSI_ITS ---
Subjective Subjective Date of Service: 02/18/22 Reason For Visit: SI Subjective Notes: Conditional Voluntary Interim History: Pleasant and engaged. Continues to feel supported in the hospital and mood is gradually improving and hopeful for discharge after the weekend- looks forward to visiting him in person after the weekend with the help of her daughter. Sleep and mood good. No concerns. Education given around trazodone- pt enquired about same. Medication Compliance: Yes Side effects from medications: No Attending Groups: Yes Review of Systems Acute medical concerns: No Review of Systems Review of Systems Nothing acute Mental Status Exam Mental Status Exam Narrative: Pleasant. Engaged. Watching television/attending groups. Fairly presented. Euthymic. No SI. No HI. No agitation. No psychosis. Insight and judgment good Diagnostics Vital Signs (24Hr): Vital Signs - 24 hr 02/17/22 18:00 02/18/22 06:00 Temperature 97 F 97.5 F Pulse Rate 61 63 Respiratory Rate 16 18 Blood Pressure 144/70 H 133/58 L Pulse Oximetry 94 92 Oxygen Delivery Method Room Air Room Air BMI result Body Mass Index 25.8 Labs Results: 02/07/22 15:17 02/09/22 08:18 Medications Medications Current Medications Acetaminophen (Acetaminophen 325 Mg Tablet) 650 mg PO Q6H PRN PRN Reason: Headache/Pain Mild Scale (1-3) Last Admin: 02/16/22 16:06 Dose: 650 mg Al Hydroxide/Mg Hydroxide (Magnesium Hydrox/Alum Hydrox 30 Ml Oral.Susp) 30 ml PO Q6H PRN PRN Reason: Heartburn/Nausea Atorvastatin Calcium (Atorvastatin Calcium 40 Mg Tablet) 40 mg PO BEDTIME [facility] Last Admin: 02/17/22 20:49 Dose: 40 mg Clonazepam (Clonazepam 0.5 Mg Tablet) 0.5 mg PO BID PRN PRN Reason: anxiety attack Last Admin: 02/11/22 21:28 Dose: 0.5 mg Clonidine HCl (Clonidine Hcl 0.1 Mg Tablet) 0.1 mg PO BID [facility]; Protocol Last Admin: 02/18/22 07:58 Dose: 0.1 mg Fluoxetine HCl (Fluoxetine Hcl 20 Mg Capsule) 60 mg PO DAILY [facility] Last Admin: 02/18/22 07:58 Dose: 60 mg Hydroxyzine HCl (Hydroxyzine Hcl 25 Mg Tablet) 25 mg PO Q6H PRN PRN Reason: Anxiety Last Admin: 02/16/22 02:29 Dose: 25 mg Magnesium Hydroxide (Milk Of Magnesia 30 Ml Oral.Susp) 30 ml PO DAILY PRN PRN Reason: Constipation Melatonin (Melatonin 3 Mg Tablet) 3 mg PO BEDTIME [facility] Last Admin: 02/17/22 20:49 Dose: 3 mg Metoprolol Succinate (Metoprolol Succinate Er 12.5 Mg Halftab.Er.24h) 12.5 mg PO DAILY [facility]; Protocol Last Admin: 02/18/22 07:57 Dose: 12.5 mg Mirtazapine (Mirtazapine 30 Mg Tablet) 30 mg PO BEDTIME [facility] Last Admin: 02/17/22 20:49 Dose: 30 mg Risperidone (Risperidone 1 Mg Tablet) 1 mg PO DAILY [facility] Last Admin: 02/11/22 09:05 Dose: 1 mg Trazodone HCl (Trazodone Hcl 100 Mg Tablet) 100 mg PO BEDTIME PRN PRN Reason: insomnia Last Admin: 02/17/22 20:49 Dose: 100 mg Allergies Allergies Allergy/AdvReac Type Severity Reaction Status Date / Time adhesive AdvReac Unknown Verified 04/21/21 23:21 aspirin AdvReac Unknown Verified 04/21/21 23:20 epinephrine AdvReac Unknown Verified 04/21/21 23:21 Assessment & Plan Assessment & Plan (1) MDD (major depressive disorder), recurrent episode, moderate: Status: Acute Code(s): F33.1 - Major depressive disorder, recurrent, moderate Plan Mrs. Hutson is a 76 year-old woman with hx of MDD, and suicide attempts, and ECT. Came to hospital at suggestion of comp field case manager from [facility] due to pt reporting feeling more overwhelm due to caring for who requires 24/7 care. Pt in agreement to have go to alf facility. Pt reports although overwhelmed and depressed, not as severe at other times. She has done well with ECT. At this time, she reports she wants to wait before deciding on ECT as depression situational. We discussed risks, benefits and alternative treatment options and she agrees to increase remeron from 15mg po qhs to 30mg po qhs. PLAN 1. Continue with the same treatment. 2. Start working on discharge planning 02/18/2022: No changes. Planned discharge Saturday I spent minutes with the patient and/or on the patient floor today, greater than?50% of which was spent counseling/coordinating care. Reason for contiued inpatient stay Substantial Risk for: rapid decompensation
[2022-02-18 20:05] VITALS: BP 124/54; PULSE 64; RESP 18; TEMP 36.3; O2SAT 94
[2022-02-18] MEDS: Mirtazapine 30 MG TABLET PO (20:14)
[2022-02-18] MEDS: traZODone HCL 100 MG TABLET PO (20:14)
[2022-02-18] MEDS: Atorvastatin Calcium 40 MG TABLET PO (20:14)
[2022-02-18] MEDS: Melatonin 3 MG TABLET PO (20:14)
[2022-02-19 07:30] VITALS: BP 113/60; PULSE 60; RESP 17; TEMP 36.1; O2SAT 96
--- NOTE | 2022-02-19 08:17 | P.DS_ITS ---
DS: Providers Provider Date of Service: 02/19/22 Date of admission: 02/08/22 15:28 Date of discharge: 02/19/22 Primary care physician: Josiah Mora MD Attending physician on discharge: James Garcia DS: Diagnosis Discharge Diagnosis (1) MDD (major depressive disorder), recurrent episode, moderate: Status: Acute DS: Medications Discharge Medications Home Medications: Home Medications Medication Instructions Recorded Confirmed clonazepam 0.5 mg tablet 1 tab PO BID PRN anxiety attack 02/07/22 02/07/22 fluoxetine 20 mg capsule 3 cap PO DAILY 02/07/22 02/07/22 melatonin 3 mg tablet 1 tab PO BEDTIME 02/07/22 02/07/22 metoprolol succinate 25 mg 0.5 tab PO DAILY 02/07/22 02/07/22 tablet,extended release 24 hr mirtazapine 15 mg tablet 1 tab PO BEDTIME 02/07/22 02/07/22 risperidone 1 mg tablet 1 tab PO QAM 02/07/22 02/07/22 rosuvastatin 10 mg tablet 1 tab PO BEDTIME 02/07/22 02/07/22 clonidine HCl 0.1 mg tablet 1 tab PO BID PRN panic attack 02/08/22 02/08/22 hydroxyzine HCl 1 caplet TID PRN Anxiety 02/08/22 02/08/22 risperidone 2 mg tablet 1 tab PO BEDTIME 02/08/22 02/08/22 Mental Status Exam Mental Status Exam Patient Appearance: Well Grooomed and Appropriate Patient Orientation: Person and Situation Level of Consciousness: Awake Patient Behavior: Cooperative Mood Description: Calm Affect Description: Calm Patient Cognition Impaired: No Ability to Follow Directions: Good Speech Pattern: Clear Memory Description: Intact Hallucinations: None Delusions: Not Present Thought Process: Intact and Goal Oriented Thought Content: positive for [place] and positive for Circumstantial Judgement: Fair Data Data Completed and Pending Completed studies during hospitalization [Text1]: 02/15/22 12:30 Urine Color YELLOW Urine Appearance CLEAR Urine pH 6.0 Ur Specific [place] 1.020 Urine Protein NEG Urine Glucose (UA) NEG Urine Ketones NEG Urine Blood NEG Urine Nitrite NEG Ur Leukocyte Esterase NEG 02/07/22 17:35 Urine clean catch - Urine ceron top Urine Culture - Final DS: Summary Hospital Course Hospital Course: The patient is very well known by the service since she has been admitted several times for exacerbation of depression with suicidal ideation. The patient carries a diagnosis of major depressive disorder recurrent episode severe without psychosis and usually the main stressor is her who has poor health. Please see the HPI on the admission note for further details. On admission will review her medications and we continue her antidepressants. We encouraged compliance and she was able to participate in therapeutic activities and groups. The patient's mood improved and since there were no safety concerns discharge planning was started. We discussed with the patient the possibility of transfer to a long-term facility but she decided to go back home. Time spent discussing smoking cessation with patient: 3 to 10 minutes Status at Discharge Cognitive/behavioral status at discharge: At baseline [place] 25/30 Functional status at discharge: independent ambulation Overall status at discharge: patient is back to baseline Time Spent with Patient Time attestation: Total time spent providing and/or coordinating discharge services: Time spent: Less than 30 minutes Discharge Plan Discharge Patient Disposition: Home, Self-Care Discharge Diagnosis: Major depressive disorder recurrent episode severe Referrals: Billy Bee [facility] [Other] - 02/23/22 10:00 am (Your next appointment with you therapist is scheduled for 02/23/22 at 10AM, via telehealth visit. ) Gage Amado APRN [facility] [Other] - 03/08/22 11:30 am (Your hospital discharge follow up appointment with baljinder Shaw [facility] in scheduled for 03/08/22 at 11:30am. ) [facility] [Other] - 02/19/22 (Your disease case manager rn Shirley will follow up with you following discharge and your personal care and homemaking with RN visits will resume from [facility] care following discharge as well as your home delivered meals. ) [facility] [Physician] - 02/20/22 10:00 am (Your appointment with DR Flores is scheduled for 02/20/22 at 10am via phone. ) Discharge Medications: New clonidine HCl 0.1 mg Tablet 30 mg PO BID Qty: 60 0RF Protocol: Hold for SBP< HOLD for SBP < : 90 trazodone 100 mg Tablet 100 mg PO BEDTIME PRN (Reason: insomnia) 30 Days Qty: 30 0RF Continued clonazepam 0.5 mg tablet 1 tab PO BID PRN (Reason: anxiety attack) 30 Days Qty: 60 0RF melatonin 3 mg tablet 1 tab PO BEDTIME 30 Days Qty: 30 0RF mirtazapine 15 mg tablet 1 tab PO BEDTIME 30 Days Qty: 30 0RF metoprolol succinate 25 mg tablet extended release 24 hr 0.5 tab PO DAILY 30 Days Qty: 15 0RF fluoxetine 20 mg capsule 3 cap PO DAILY 30 Days Qty: 90 0RF risperidone 1 mg tablet 1 tab PO QAM 30 Days Qty: 30 0RF rosuvastatin 10 mg tablet 1 tab PO BEDTIME 30 Days Qty: 30 0RF Changed hydroxyzine HCl 25 mg capsule 1 caplet PO TID PRN (Reason: Anxiety) 30 Days Qty: 90 0RF Discontinued clonidine HCl 0.1 mg tablet 1 tab PO BID PRN (Reason: panic attack) risperidone 2 mg tablet 1 tab PO BEDTIME Discharge Orders: Discharge Order (Routine); Ordered 02/19/22 Ordered By: James Garcia Diet: Advance to usual diet Activity on Discharge: As tolerated Stand Alone Forms: Patient Portal Discharge page Care Plan Goals: Care plan goals achieved and this admission Health Concerns: Continue treatment at the primary care physician Plan of Treatment: Continue treatment as an outpatient Assessment: Elderly female with a long history of major depressive disorder recurrent episode severe admitted for suicidal ideation currently stable ready for discharge.
[2022-02-19] MEDS: Metoprolol Succinate ER 12.5 MG HALFTAB.ER.24H PO (09:14)
[2022-02-19] MEDS: FLUoxetine HCl 20 MG CAPSULE 60 MG PO (09:15)
== END 2022-02-19 16:40 | disposition home or self-care (01) | DRG 885 ==
LOC: HO.ED 02-08 11:10 → HO.PADLT16 02-08 15:40 → HO.PGERI 02-12 13:43
PROVIDERS: Admitting Provider Psychiatry & Neurology Psychiatry; Emergency Provider Emergency Medicine; PCP Internal Medicine; Visit Provider Psychiatry & Neurology Psychiatry
DX: F33.1 Major depressive disorder, recurrent, moderate (principal); R45.851 Suicidal ideations; F17.210 Nicotine dependence, cigarettes, uncomplicated; Z71.6 Tobacco abuse counseling; Z20.822 Contact with and (suspected) exposure to COVID-19; Z86.73 Personal history of transient ischemic attack (TIA), and cerebral infarction without residual deficits; Z88.8 Allergy status to other drugs, medicaments and biological substances; Z79.899 Other long term (current) drug therapy
CPT/HCPCS: 36415; 80048; 80053; 80061; 80076; 80307; 81001; 81003; 82077; 82607; 82746; 83036; 84439; 84443; 85025; 87086; 87635; 93005; 99285

== ENCOUNTER 2022-02-26 19:27 | Inpatient (IN) | payer MEDICARE, SELFPAY ==
--- NOTE | ~2022-02-26 | US_ITS ---
EXAMINATION: US VENOUS ULTRASOUND WITH DOPPLER LOWER EXTREMITY, BILATERAL CLINICAL INFORMATION: Calf pain. COMPARISON: None TECHNIQUE: Ultrasound of the deep veins is performed from the hip to the calf with compression sonography and color and pulse Doppler assessment. Spectral analysis with color-flow imaging is performed. FINDINGS: RIGHT: There is normal venous compression and respiratory variation and augmented flow. The visualized common femoral vein, superficial femoral vein, profunda femoral vein, popliteal vein, and the trifurcation region shows no evidence of deep venous thrombosis. No popliteal cyst. The subcutaneous soft tissues are unremarkable. LEFT: There is normal venous compression and respiratory variation and augmented flow. The visualized common femoral vein, superficial femoral vein, profunda femoral vein, popliteal vein, and the trifurcation region shows no evidence of deep venous thrombosis. No popliteal cyst. The subcutaneous soft tissues are unremarkable. If the patient's symptoms persist, followup ultrasound in 5 days 7 days might be of value to exclude proximal propagation from a non-visualized calf vein. US/US venous duplex LE BI IMPRESSION: No evidence for deep venous thrombosis in the visualized veins of the bilateral lower extremities.
--- NOTE | ~2022-02-26 | US_ITS ---
EXAMINATION: COLOR-FLOW DUPLEX IMAGING OF THE BILATERAL LOWER EXTREMITY ARTERIAL SYSTEM. VELOCITY MEASUREMENTS THROUGHOUT THE FEMORAL ARTERIES WITH ANKLE-BRACHIAL PERIPHERAL ARTERIAL TESTING. Interventional Radiologist: Nima Motley M.D., F.S.I.R., F.A.C.R. CLINICAL INFORMATION: This is a 76-year-old female with bilateral claudication. Hypertension. Smoking. Hyperlipidemia. RIGHT FEMORAL RUNOFF VELOCITIES: The right common femoral artery measures 215 cm/s and triphasic. The right profunda femoral artery is 75 cm/s and is monophasic. Right proximal superficial femoral artery measures 114 cm/s and biphasic. Mid superficial femoral artery is 147 cm/s and triphasic. Distal right superficial femoral artery measures 84 cm/s and is biphasic. Right popliteal velocity measures 80 cm/s and is biphasic. The posterior tibial artery velocity measures 93 cm/s and was biphasic. LEFT FEMORAL RUNOFF VELOCITIES: The left common femoral artery measures 116 cm/s and monophasic. The left profunda femoral artery is 23 cm/s and is monophasic. Left proximal superficial femoral artery measures 62 cm/s and monophasic. Mid superficial femoral artery is 67 cm/s and monophasic. Distal left superficial femoral artery measures 34 cm/s and is monophasic. Left popliteal velocity measures 27 cm/s and is monophasic. The posterior tibial artery velocity measures 30 cm/s and was monophasic. US/US arterial duplex LE BI IMPRESSION: 1 RIGHT SIDE: There are elevated velocities in the right common femoral artery consistent with hemodynamically significant stenosis. The stenosis could be within the right external iliac artery. 2. LEFT SIDE: There are monophasic waveforms and low velocities throughout the left lower extremity. This is suspicious for an aortoiliac inflow stenosis. 3. This could be evaluated with a CAT scan angiogram of the pelvis.
--- NOTE | 2022-02-26 19:35 | ED_ITS ---
HPI - Psych General Stated Complaint: Section 12 Time Seen by Provider: 02/26/22 19:35 Source: patient, EMS and old records reviewed Mode of arrival: EMS Limitations: no limitations History of Present Illness HPI Narrative: 76 yo female with history of major depressive disorder, PTSD, COPD, HTN with recent admission here for recurrent depression/SI presents to the ER from home with suicidal ideation. She arrives on a section 12 from [facility] in the community. During her recent admission there was discussion of patient possibly transferring to a custodial care facility but she ultimately decided to go back home. complaint: suicidal ideation and feels depressed Duration: changing over time History of same: Yes Relieving factors: medication and therapy Exacerbating factors: none Associated psychiatric symptoms: depression and suicidal ideation Treatments prior to arrival: none and placed on mental health hold If self harm: admits thoughts of self harm Related Data Previous Rx's Medication Instructions Recorded clonazepam 0.5 mg tablet 1 tab PO BID PRN anxiety attack 30 02/19/22 days #60 tabs clonidine HCl 0.1 mg tablet 30 mg PO BID #60 tabs 02/19/22 fluoxetine 20 mg capsule 3 cap PO DAILY 30 days #90 caps 02/19/22 hydroxyzine HCl 1 caplet PO TID PRN Anxiety 30 02/19/22 days #90 caps melatonin 3 mg tablet 1 tab PO BEDTIME 30 days #30 tabs 02/19/22 metoprolol succinate 25 mg 0.5 tab PO DAILY 30 days #15 tabs 02/19/22 tablet,extended release 24 hr mirtazapine 15 mg tablet 1 tab PO BEDTIME 30 days #30 tabs 02/19/22 risperidone 1 mg tablet 1 tab PO QAM 30 days #30 tabs 02/19/22 rosuvastatin 10 mg tablet 1 tab PO BEDTIME 30 days #30 tabs 02/19/22 trazodone 100 mg tablet 100 mg PO BEDTIME PRN insomnia 30 02/19/22 days #30 tabs Allergies Allergy/AdvReac Type Severity Reaction Status Date / Time adhesive AdvReac Unknown Verified 04/21/21 23:21 aspirin AdvReac Unknown Verified 04/21/21 23:20 epinephrine AdvReac Unknown Verified 04/21/21 23:21 [facility] Past Medical History Medical History COPD (chronic obstructive pulmonary disease) Depression Essential hypertension Hyperlipidemia Mitral valve prolapse Prediabetes PTSD (post-traumatic stress disorder) TIA (transient ischemic attack) Tobacco abuse Surgical History History of colectomy History of parathyroidectomy Social History Social History Household Members: Spouse Housing: Apartment Do you presently have visiting nurse or other home services: Yes Alcohol intake: never Patient Tobacco Use Status: Current everyday Tobacco user Tobacco use type: Cigarette Cigarettes Per Day: 6 Years Smoked: 20 e-Cigarette/Vaping Use: Never Used Second Hand Smoke Exposure: Yes Substance Use Type: Prescription Drugs and Caffiene Advance Directives Date on File: 02/08/22 service: No Sexual orientation: Straight/Heterosexual Discharge Plan Discharge Prescriptions: No Action clonidine HCl 0.1 mg Tablet 30 mg PO BID Qty: 60 0RF Protocol: Hold for SBP< HOLD for SBP < : 90 trazodone 100 mg Tablet 100 mg PO BEDTIME PRN (Reason: insomnia) 30 Days Qty: 30 0RF clonazepam 0.5 mg tablet 1 tab PO BID PRN (Reason: anxiety attack) 30 Days Qty: 60 0RF melatonin 3 mg tablet 1 tab PO BEDTIME 30 Days Qty: 30 0RF mirtazapine 15 mg tablet 1 tab PO BEDTIME 30 Days Qty: 30 0RF metoprolol succinate 25 mg tablet extended release 24 hr 0.5 tab PO DAILY 30 Days Qty: 15 0RF fluoxetine 20 mg capsule 3 cap PO DAILY 30 Days Qty: 90 0RF risperidone 1 mg tablet 1 tab PO QAM 30 Days Qty: 30 0RF rosuvastatin 10 mg tablet 1 tab PO BEDTIME 30 Days Qty: 30 0RF hydroxyzine HCl 25 mg capsule 1 caplet PO TID PRN (Reason: Anxiety) 30 Days Qty: 90 0RF
[2022-02-26 19:39] VITALS: BMI 25.8
--- NOTE | 2022-02-26 19:40 | ED_ITS ---
HPI - Psych General Stated Complaint: Section 12 Time Seen by Provider: 02/26/22 19:35 Source: patient and EMS Mode of arrival: EMS Limitations: no limitations History of Present Illness HPI Narrative: Patient comes to the emergency room via ambulance on a Section 12. Patient called [facility], she was evaluated in her home, patient was Section 12, now an inpatient bed search. Patient has history of suicidal ideation and previous suicide attempts. Patient was discharged from this hospital, on 02/19/2022. Patient comes back this time, stating that yesterday she took for clonidine tablets and 1 Klonopin tablet with intention of hurting herself. Patient states that her lives currently at [facility]. She was informed today that her will be going home on hospice care possibly this week. Patient states that this is too much for her, she became overwhelmed and suicidal. Last time that patient was here, patient was overwhelmed about taking care of her at home and came to emergency room for evaluation for suicidal ideation. Patient states that her healthcare proxy and her 's health care proxy is stair daughter. At this time, they are not sure if the patient will be returning home on home hospice versus going to a place in as a warm for hospice. Patient states that her returning home is not an option since she cannot take care of him Related Data Home Medications Medication Instructions Recorded Confirmed clonidine HCl 0.1 mg tablet 0.1 mg PO BID 02/26/22 02/26/22 Previous Rx's Medication Instructions Recorded clonazepam 0.5 mg tablet 1 tab PO BID PRN anxiety attack 30 02/19/22 days #60 tabs fluoxetine 20 mg capsule 3 cap PO DAILY 30 days #90 caps 02/19/22 hydroxyzine HCl 1 caplet PO TID PRN Anxiety 30 02/19/22 days #90 caps melatonin 3 mg tablet 1 tab PO BEDTIME 30 days #30 tabs 02/19/22 metoprolol succinate 25 mg 0.5 tab PO DAILY 30 days #15 tabs 02/19/22 tablet,extended release 24 hr mirtazapine 15 mg tablet 1 tab PO BEDTIME 30 days #30 tabs 02/19/22 risperidone 1 mg tablet 1 tab PO QAM 30 days #30 tabs 02/19/22 rosuvastatin 10 mg tablet 1 tab PO BEDTIME 30 days #30 tabs 08/15/22 trazodone 100 mg tablet 100 mg PO BEDTIME PRN insomnia 30 02/19/22 days #30 tabs Allergies Allergy/AdvReac Type Severity Reaction Status Date / Time adhesive AdvReac Unknown Verified 04/21/21 23:21 aspirin AdvReac Unknown Verified 04/21/21 23:20 epinephrine AdvReac Unknown Verified 04/21/21 23:21 Review of Systems Review of Systems: Constitutional : No Weight loss, No Fever, No Chills, No Night Sweats, No Fatigue, No Malaise ENT/Mouth : No Hearing loss, No Ear Pain, No Nasal Congestion, No Sinus Pain, No Hoarseness, No sore throat, No Rhinorrhea, No Swallowing Difficulty Eyes: No Eye Pain, No Swelling, No Redness, No Foreign Body, No Discharge, No Vision Changes Cardiovascular : No Chest Pain, No SOB, No Dyspnea on Exertion, No Orthopnea, No Edema, No Palpitations Respiratory : No Cough, No Sputum, No Wheezing, No Smoke Exposure, No Dyspnea Gastrointestinal : No Nausea, No Vomiting, No Diarrhea, No Constipation, No abdominal Pain, No Hematochezia, No Melena Genitourinary : no irregular bleeding, No Dysuria, No Urinary Frequency, No Hematuria, No Urinary Incontinence, No Urgency, No Flank Pain, No Urinary Flow Changes, No Hesitancy Musculoskeletal : No joint pain, No Myalgias, No Joint Swelling Skin : No Skin Lesions, No rash Neuro : No Weakness, No Numbness, No Paresthesias, No Loss of Consciousness, No Dizziness, No Headache Psych : Complaining of anxiety, depression, suicidal ideation, no homicidal ideation Heme/Lymph: No Bruising, No Bleeding,No Lymphadenopathy Endocrine : No Polyuria, No Polydipsia, No Temperature Intolerance [facility] Past Medical History Medical History COPD (chronic obstructive pulmonary disease) Depression Essential hypertension Hyperlipidemia Mitral valve prolapse Prediabetes PTSD (post-traumatic stress disorder) TIA (transient ischemic attack) Tobacco abuse Surgical History History of colectomy History of parathyroidectomy Social History Social History Household Members: Spouse Housing: Apartment Do you presently have visiting nurse or other home services: Yes Alcohol intake: never Patient Tobacco Use Status: Current everyday Tobacco user Tobacco use type: Cigarette Cigarettes Per Day: 6 Years Smoked: 20 e-Cigarette/Vaping Use: Never Used Second Hand Smoke Exposure: Yes Substance Use Type: Prescription Drugs and Caffiene Advance Directives Date on File: 02/08/22 service: No Sexual orientation: Straight/Heterosexual Physical Exam Const: Other: Appearance: Alert. Oriented X3. No acute distress. Eyes: Pupils equal, round and reactive to light. ENT: Pharynx normal. Neck: Normal inspection. Neck supple. No lymph nodes noted. No crepitus CVS: Normal heart rate and rhythm. Pulses normal. Normal S1 and S2 Respiratory: No respiratory distress. Breath sounds normal. No Wheezing. No rales Abdomen: Soft and nontender. No rigidity. No distention. Skin: Skin warm and dry. Normal skin color. Normal skin turgor. Extremities: No lower extremity edema. No Lacerations. No Rash Neuro: Oriented X 3. No motor deficit. No sensory deficit. Moving all extremities. No slurred speech. CN 2 through 12 grossly intact Psych: calm, cooperative, normal affect, coherent Course Course Course Narrative: Patient is now on a Section 12 which was signed by [facility] in the community. Patient is in inpatient bed search. All labs pending. Physician observation started at 19:45 Discharge Plan Discharge Clinical Impression: MDD (major depressive disorder), recurrent episode, moderate, Suicidal ideation Patient Disposition: Still a Patient Prescriptions: No Action clonidine HCl 0.1 mg Tablet 30 mg PO BID Qty: 60 0RF Protocol: Hold for SBP< HOLD for SBP < : 90 trazodone 100 mg Tablet 100 mg PO BEDTIME PRN (Reason: insomnia) 30 Days Qty: 30 0RF clonazepam 0.5 mg tablet 1 tab PO BID PRN (Reason: anxiety attack) 30 Days Qty: 60 0RF melatonin 3 mg tablet 1 tab PO BEDTIME 30 Days Qty: 30 0RF mirtazapine 15 mg tablet 1 tab PO BEDTIME 30 Days Qty: 30 0RF metoprolol succinate 25 mg tablet extended release 24 hr 0.5 tab PO DAILY 30 Days Qty: 15 0RF fluoxetine 20 mg capsule 3 cap PO DAILY 30 Days Qty: 90 0RF risperidone 1 mg tablet 1 tab PO QAM 30 Days Qty: 30 0RF rosuvastatin 10 mg tablet 1 tab PO BEDTIME 30 Days Qty: 30 0RF hydroxyzine HCl 25 mg capsule 1 caplet PO TID PRN (Reason: Anxiety) 30 Days Qty: 90 0RF
--- NOTE | 2022-02-26 19:43 | ECG_ITS ---
Test Reason : CLEARANCE Blood Pressure : / mmHG Vent. Rate : 059 BPM Atrial Rate : 059 BPM P-R Int : 166 ms QRS Dur : 138 ms QT Int : 492 ms P-R-T Axes : -19 061 025 degrees QTc Int : 487 ms Sinus bradycardia Left bundle branch block Abnormal ECG When compared with ECG of 10-FEB-2022 14:12, Heart rate has decreased Referred By: Isadora Lui Electronically Signed By:ZACH CRAIG
[2022-02-26 19:49] VITALS: BP 142/61; PULSE 64; RESP 16; TEMP 36.6; O2SAT 96
--- NOTE | 2022-02-26 20:44 | MHC.CARE ---
CHAR evaluated pt in the community prior to arrival and she is a Section 12 in[facility] psych bedsearch.
[2022-02-26 20:47] LABS: COVID-19 Test Negative (Negative)
[2022-02-26 21:23] LABS: Basophils Absolute Auto 0.1 X10*3/uL (0.0-0.2); Basophils Percent Auto 0.7 % (0-2); Hemoglobin 12.6 g/dl (12.0-16.0); Mean Corpuscular Hemoglobin 30.3 pg (27.0-33.0); PLT CLUMP 1; Red Blood Count 4.16 X10*6/uL (4.20-5.50); SCAN SMEAR FLAG 1
[2022-02-26 21:25] LABS: Eosinophils Absolute Auto 0.3 X10*3/uL (0.0-0.4); Eosinophils Percent Auto 2.9 % (0-4); Hematocrit 37.2 % (37.0-47.0); Imm Gran Abs Auto 0.05 X10*3/uL (0.00-0.03); Imm Gran Pct Auto 0.5 % (0.0-0.4); Lymphocytes Absolute Auto 2.2 X10*3/uL (1.2-4.9); MANUAL DIFF FLAG SCAN; Mean Corpuscular HGB Conc 33.9 g/dl (31.0-35.0); Mean Corpuscular Volume 89.4 fL (80.0-98.0); Monocytes Absolute Auto 0.7 X10*3/uL (0.1-1.2); Monocytes Percent Auto 7.6 % (2-11); Neutrophils Absolute Auto 6.2 x10*3/uL (2.0-8.3); Neutrophils Percent Auto 65.3 % (45-73); Red Cell Distribution Width 13.3 % (11.0-16.0)
[2022-02-26 21:30] LABS: Prothrombin Time 11.8 SEC (10.0-13.1)
[2022-02-26 21:41] LABS: Ethanol < 10 mg/dL
[2022-02-26 22:09] LABS: Alanine Aminotransferase 12 U/L (0-31); Albumin Level 3.9 g/dL (3.5-5.0); Alkaline Phosphatase 68 U/L (39-117); Anion Gap 15 (12-20); Aspartate Amino Transferase 16 U/L (5-31); Bilirubin Direct < 0.2 mg/dL (0.0-0.5); Bilirubin Total 0.3 mg/dL (0.0-1.0); Blood Urea Nitrogen 17 mg/dL (9-16); Calcium 9.7 mg/dL (8.4-10.2); Carbon Dioxide 24 mmol/L (22-29); Chloride 101 mmol/L (96-108); Creatinine Clr Calc Pharmacy 52.4; Estimated Glomerular Filt Rate 55; Glucose Random 143 mg/dL (60-115); Potassium 5.1 mmol/L (3.3-5.1); Sodium 135 mmol/L (135-145); Total Protein 6.6 g/dL (6.5-8.0)
[2022-02-26 22:21] LABS: SLIDE REVIEW VERIFIED; White Blood Count 9.6 X10*3/uL (4.8-10.8)
[2022-02-26 22:25] LABS: Acetaminophen LAB < 1 mcg/mL (<30); Salicylate < 5.0 mg/dL (15-30)
[2022-02-27 02:08] VITALS: BP 120/53; PULSE 53; RESP 15; TEMP 36.6; O2SAT 95
[2022-02-27] MEDS: clonazePAM 1 MG TABLET PO (05:44)
--- NOTE | 2022-02-27 06:37 | PC.NURSE ---
Patient slept through the night, woke up at 0530 and reported feeling anxious Klonopin 1 mg PO administered as ordered at 0544 with + effect, behavior pleasant and non concerning, disposition per [facility] is section 12 inpatient bed search from the [facility], med rec completed/pending provider's approval, VSS, will continue to monitor.
--- NOTE | 2022-02-27 07:18 | PC.NURSE ---
patient appears to remain asleep at present respirations are even and unlabored patient appears in no distress
[2022-02-27 12:15] VITALS: BP 138/80; PULSE 67; RESP 18; TEMP 36.7; O2SAT 96
--- NOTE | 2022-02-27 12:37 | PC.ADMIT ---
Addendum entered by Arcelia Beard RN 02/27/22 17:09: PCP and daughter updated about pt.'s admission 1150. Original Note: Pt. escorted to unit from ED pod via WC accompanied by this medical writer and security. Pt. familiar to unit. Pt. rights, no smoking policy, and visitor policy explained. Pt. is A & O X 4 with intact memory. She ambulates independently without assistive devices, but reports she is having difficulty walking long distances. Pt had been evaluated by [facility] at her apartment for SI and brought to ED. Pt had been discharged home from unit for same 02/19, and had found it increasingly overwhelming to manage at home. Her is anticipated to return home on Hospice tomorrow and needs total care. She reports the apartment is in disarray due in part to her inability to housekeep as well as still having stacked unpacked boxes from last year when they had to pack everything due to bedbugs. She reports she sustained a fall a few days ago due to tripping over one of these boxes. Pt. reports she overmedicated herself the night before with thoughts of ending her life, but knew that what she was taking was not enough to kill her. She endorses continued feelings of hopelessness, but denies active SI at this time.
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
[2022-02-27 18:00] VITALS: BP 141/67; PULSE 62; RESP 15; TEMP 36.6; O2SAT 93
[2022-02-27] MEDS: cloNIDine HCL 0.1 MG TABLET PO (19:51)
[2022-02-27] MEDS: Atorvastatin Calcium 40 MG TABLET PO (19:52)
[2022-02-27] MEDS: Mirtazapine 15 MG TABLET PO (19:52)
[2022-02-27] MEDS: traZODone HCL 100 MG TABLET PO (20:10)
[2022-02-28 07:30] VITALS: BP 129/85; PULSE 62; RESP 17; TEMP 35.9; O2SAT 96
[2022-02-28] MEDS: risperiDONE 1 MG TABLET PO (08:09)
[2022-02-28] MEDS: Metoprolol Succinate ER 12.5 MG HALFTAB.ER.24H PO (08:09)
[2022-02-28] MEDS: FLUoxetine HCl 20 MG CAPSULE 60 MG PO (08:09)
[2022-02-28] MEDS: cloNIDine HCL 0.1 MG TABLET PO ×2 (08:10→20:16)
--- NOTE | 2022-02-28 14:11 | HO.PSYCHPN ---
Subjective Subjective Date of Service: 02/28/22 Reason For Visit: Depression/ SI Subjective Notes: Conditional Voluntary Interim History: The nursing staff reported the patient was crying last night. She had been fully compliant with treatment. On interview the patient reports that she feels very dysphoric, depressed and sad but able to contract for safety in the facility. I encourage her to attend to all the groups if she can. Mental Status Exam Mental Status Exam Patient Appearance: Well Grooomed Patient Orientation: Person and Situation Level of Consciousness: Awake Patient Behavior: Cooperative Mood Description: Withdrawn Affect Description: Depressed Patient Cognition Impaired: Yes Ability to Follow Directions: Good Speech Pattern: Clear Hallucinations: None Delusions: Not Present Thought Process: Distracted Thought Content: positive for [place] Judgement: Fair Diagnostics Vital Signs (24Hr): Vital Signs - 24 hr 02/27/22 18:00 02/28/22 07:30 Temperature 98 F 96.6 F L Pulse Rate 62 62 Respiratory Rate 15 17 Blood Pressure 141/67 H 129/85 Pulse Oximetry 93 96 Oxygen Delivery Method Room Air Room Air BMI result Body Mass Index 25.8 Labs Results: 02/26/22 21:15 02/26/22 21:15 Labs: Laboratory Results - last 48 hr 02/26/22 02/26/22 02/26/22 19:57 21:14 21:15 WBC 9.6 RBC 4.16 L Hgb 12.6 Hct 37.2 MCV 89.4 MCH 30.3 MCHC 33.9 RDW 13.3 Plt Count Not Reportable MPV Not Reportable Immature Gran % (Auto) 0.5 H Neut % (Auto) 65.3 Lymph % (Auto) 23.0 [place] % (Auto) 7.6 Eos % (Auto) 2.9 Baso % (Auto) 0.7 Lymph # (Auto) 2.2 [place] # (Auto) 0.7 Eos # (Auto) 0.3 Baso # (Auto) 0.1 Abs Immat Gran (auto) 0.05 H Absolute Neuts (auto) 6.2 Absolute Nucleated RBC 0.000 Nucleated RBC % (auto) 0.0 Smear Tech's Comments VERIFIED PT INR Sodium Potassium Chloride Carbon Dioxide Anion Gap BUN Creatinine Estim Creat Clear Calc Estimated GFR Random Glucose Calcium Total Bilirubin Direct Bilirubin AST ALT Alkaline Phosphatase Total Protein Albumin Salicylates Acetaminophen Ethyl Alcohol < 10 COVID-19 (LANE) Negative COVID-19 Clin Com See Note 02/26/22 02/26/22 21:15 21:15 WBC RBC Hgb Hct MCV MCH MCHC RDW Plt Count MPV Immature Gran % (Auto) Neut % (Auto) Lymph % (Auto) [place] % (Auto) Eos % (Auto) Baso % (Auto) Lymph # (Auto) [place] # (Auto) Eos # (Auto) Baso # (Auto) Abs Immat Gran (auto) Absolute Neuts (auto) Absolute Nucleated RBC Nucleated RBC % (auto) Smear Tech's Comments PT 11.8 INR 1.0 Sodium 135 Potassium 5.1 Chloride 101 Carbon Dioxide 24 Anion Gap 15 BUN 17 H Creatinine 0.98 Estim Creat Clear Calc 52.4 Estimated GFR 55 Random Glucose 143 H Calcium 9.7 D Total Bilirubin 0.3 Direct Bilirubin < 0.2 AST 16 ALT 12 Alkaline Phosphatase 68 Total Protein 6.6 Albumin 3.9 Salicylates < 5.0 L Acetaminophen < 1 Ethyl Alcohol COVID-19 (LANE) COVID-19 Clin Com Medications Medications Current Medications Acetaminophen (Acetaminophen 325 Mg Tablet) 650 mg PO Q6H PRN PRN Reason: Headache/Pain Mild Scale (1-3) Al Hydroxide/Mg Hydroxide (Magnesium Hydrox/Alum Hydrox 30 Ml Oral.Susp) 30 ml PO Q6H PRN PRN Reason: Heartburn/Nausea Atorvastatin Calcium (Atorvastatin Calcium 40 Mg Tablet) 40 mg PO BEDTIME [facility] Last Admin: 02/27/22 19:52 Dose: 40 mg Clonazepam (Clonazepam 0.5 Mg Tablet) 0.5 mg PO BID PRN PRN Reason: anxiety attack Clonidine HCl (Clonidine Hcl 0.1 Mg Tablet) 0.1 mg PO BID [facility]; Protocol Last Admin: 02/28/22 08:10 Dose: 0.1 mg Fluoxetine HCl (Fluoxetine Hcl 20 Mg Capsule) 60 mg PO DAILY [facility] Last Admin: 02/28/22 08:09 Dose: 60 mg Hydroxyzine HCl (Hydroxyzine Hcl 25 Mg Tablet) 25 mg PO Q6H PRN PRN Reason: Anxiety Magnesium Hydroxide (Milk Of Magnesia 30 Ml Oral.Susp) 30 ml PO DAILY PRN PRN Reason: Constipation Metoprolol Succinate (Metoprolol Succinate Er 12.5 Mg Halftab.Er.24h) 12.5 mg PO DAILY [facility]; Protocol Last Admin: 02/28/22 08:09 Dose: 12.5 mg Mirtazapine (Mirtazapine 15 Mg Tablet) 15 mg PO BEDTIME [facility] Last Admin: 02/27/22 19:52 Dose: 15 mg Risperidone (Risperidone 2 Mg Tablet) 2 mg PO BEDTIME [facility] Last Admin: 02/27/22 19:55 Dose: Not Given Risperidone (Risperidone 1 Mg Tablet) 1 mg PO DAILY [facility] Last Admin: 02/28/22 08:09 Dose: 1 mg Trazodone HCl (Trazodone Hcl 100 Mg Tablet) 100 mg PO BEDTIME PRN PRN Reason: insomnia Last Admin: 02/27/22 20:10 Dose: 100 mg Trazodone HCl (Trazodone Hcl 50 Mg Tablet) 50 mg PO BEDTIME PRN PRN Reason: Insomnia Allergies Allergies Allergy/AdvReac Type Severity Reaction Status Date / Time adhesive AdvReac Unknown Verified 04/21/21 23:21 aspirin AdvReac Unknown Verified 04/21/21 23:20 epinephrine AdvReac Unknown Verified 04/21/21 23:21 Assessment & Plan Assessment & Plan (1) MDD (major depressive disorder), recurrent episode, moderate: Status: Acute Code(s): F33.1 - Major depressive disorder, recurrent, moderate (2) COPD (chronic obstructive pulmonary disease): Status: Acute Code(s): J44.9 - Chronic obstructive pulmonary disease, unspecified (3) Tobacco abuse: Status: Acute Code(s): Z72.0 - Tobacco use (4) Prediabetes: Status: Acute Code(s): R73.03 - Prediabetes (5) Hyperlipidemia: Status: Acute Code(s): E78.5 - Hyperlipidemia, unspecified Plan Elderly female with a long history of 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 Plan 1. Gather collateral information. 2. Continue with the same treatment. 3. Continue with medical treatment I spent __20____ minutes with the patient and/or on the patient floor today, greater than?50% of which was spent counseling/coordinating care. Reason for contiued inpatient stay Substantial Risk for: harm to self, inability to function, rapid decompensation and med/psych decompensation
[2022-02-28 18:00] VITALS: BP 142/61; PULSE 67; RESP 16; TEMP 36.6; O2SAT 93
[2022-02-28] MEDS: Atorvastatin Calcium 40 MG TABLET PO (20:15)
[2022-02-28] MEDS: clonazePAM 0.5 MG TABLET PO (20:15)
[2022-02-28] MEDS: Mirtazapine 15 MG TABLET PO (20:15)
[2022-02-28] MEDS: traZODone HCL 100 MG TABLET PO (20:16)
[2022-02-28] MEDS: Acetaminophen 325 MG TABLET 650 MG PO (22:31)
[2022-02-28] MEDS: traZODone HCL 50 MG TABLET PO (22:32)
[2022-03-01 06:00] VITALS: BP 132/67; PULSE 66; RESP 17; TEMP 36; O2SAT 96
--- NOTE | 2022-03-01 09:22 | P.PNPSI_ITS ---
Subjective Subjective Date of Service: 03/01/22 Reason For Visit: Depression/ SI Subjective Notes: Conditional Voluntary Interim History: Pt reports feeling slightly less depressed, reports still intermittent suicidal ideation. Pt reports sleeping and eating well. She denies any physical concerns. Per nursing, pt has been visible, social with peers. No behavioral concerns. Medication Compliance: Yes Side effects from medications: No Attending Groups: Yes Review of Systems Review of Systems Constitutional : No Weight loss, No Fever, No Chills, No Night Sweats, No Fatigue, No Malaise ENT/Mouth : No Hearing loss, No Ear Pain, No Nasal Congestion, No Sinus Pain, No Hoarseness, No sore throat, No Rhinorrhea, No Swallowing Difficulty Eyes: No Eye Pain, No Swelling, No Redness, No Foreign Body, No Discharge, No Vi laine Changes Cardiovascular : No Chest Pain, No SOB, No Dyspnea on Exertion, No Orthopnea, No Edema, No Palpitations Respiratory : No Cough, No Sputum, No Wheezing, No Smoke Exposure, No Dyspnea Gastrointestinal : No Nausea, No Vomiting, No Diarrhea, No Constipation, No abdominal Pain, No Hematochezia, No Melena Genitourinary : no irregular bleeding, No Dysuria, No Urinary Frequency, No Hematuria, No Urinary Incontinence, No Urgency, No Flank Pain, No Urinary Flow Changes, No Hesitancy Musculoskeletal : No joint pain, No Myalgias, No Joint Swelling Skin : No Skin Lesions, No rash Neuro : No Weakness, No Numbness, No Paresthesias, No Loss of Consciousness, No Dizziness, No Headache Psych : Complaining of anxiety, depression, suicidal ideation, no homicidal ideation Heme/Lymph: No Bruising, No Bleeding,No Lymphadenopathy Endocrine : No Polyuria, No Polydipsia, No Temperature Intolerance Yes all other systems are reviewed and are negative Mental Status Exam Mental Status Exam Patient Appearance: Well Grooomed Patient Orientation: Person and Situation Level of Consciousness: Awake Patient Behavior: Cooperative Mood Description: Withdrawn Affect Description: Depressed Patient Cognition Impaired: Yes Ability to Follow Directions: Good Speech Pattern: Clear Diagnostics Vital Signs (24Hr): Vital Signs - 24 hr 03/01/22 18:00 03/02/22 08:17 Temperature 98.2 F 96.5 F L Pulse Rate 58 81 Respiratory Rate 17 17 Blood Pressure 123/58 L 104/57 L Pulse Oximetry 97 92 Oxygen Delivery Method Room Air Room Air BMI result Body Mass Index 25.8 Labs Results: 02/26/22 21:15 02/26/22 21:15 Medications Medications Current Medications Acetaminophen (Acetaminophen 325 Mg Tablet) 650 mg PO Q6H PRN PRN Reason: Headache/Pain Mild Scale (1-3) Last Admin: 02/28/22 22:31 Dose: 650 mg Al Hydroxide/Mg Hydroxide (Magnesium Hydrox/Alum Hydrox 30 Ml Oral.Susp) 30 ml PO Q6H PRN PRN Reason: Heartburn/Nausea Atorvastatin Calcium (Atorvastatin Calcium 40 Mg Tablet) 40 mg PO BEDTIME [facility] Last Admin: 03/01/22 20:23 Dose: 40 mg Clonazepam (Clonazepam 0.5 Mg Tablet) 0.5 mg PO BID PRN PRN Reason: anxiety attack Last Admin: 02/28/22 20:15 Dose: 0.5 mg Clonidine HCl (Clonidine Hcl 0.1 Mg Tablet) 0.1 mg PO BID [facility]; Protocol Last Admin: 03/02/22 09:05 Dose: Not Given Fluoxetine HCl (Fluoxetine Hcl 20 Mg Capsule) 60 mg PO DAILY [facility] Last Admin: 03/02/22 08:21 Dose: 60 mg Hydroxyzine HCl (Hydroxyzine Hcl 25 Mg Tablet) 25 mg PO Q6H PRN PRN Reason: Anxiety Magnesium Hydroxide (Milk Of Magnesia 30 Ml Oral.Susp) 30 ml PO DAILY PRN PRN Reason: Constipation Metoprolol Succinate (Metoprolol Succinate Er 12.5 Mg Halftab.Er.24h) 12.5 mg PO DAILY [facility]; Protocol Last Admin: 03/02/22 09:04 Dose: 12.5 mg Mirtazapine (Mirtazapine 15 Mg Tablet) 15 mg PO BEDTIME [facility] Last Admin: 03/01/22 20:23 Dose: 15 mg Risperidone (Risperidone 2 Mg Tablet) 2 mg PO BEDTIME [facility] Last Admin: 03/01/22 20:24 Dose: 2 mg Risperidone (Risperidone 1 Mg Tablet) 1 mg PO DAILY [facility] Last Admin: 03/02/22 08:22 Dose: 1 mg Trazodone HCl (Trazodone Hcl 100 Mg Tablet) 100 mg PO BEDTIME PRN PRN Reason: insomnia Last Admin: 03/01/22 20:30 Dose: 100 mg Trazodone HCl (Trazodone Hcl 50 Mg Tablet) 50 mg PO BEDTIME PRN PRN Reason: Insomnia Last Admin: 02/28/22 22:32 Dose: 50 mg Allergies Allergies Allergy/AdvReac Type Severity Reaction Status Date / Time adhesive AdvReac Unknown Verified 04/21/21 23:21 aspirin AdvReac Unknown Verified 04/21/21 23:20 epinephrine AdvReac Unknown Verified 04/21/21 23:21 Assessment & Plan Assessment & Plan (1) MDD (major depressive disorder), recurrent episode, moderate: Status: Acute Code(s): F33.1 - Major depressive disorder, recurrent, moderate (2) COPD (chronic obstructive pulmonary disease): Status: Acute Code(s): J44.9 - Chronic obstructive pulmonary disease, unspecified (3) Tobacco abuse: Status: Acute Code(s): Z72.0 - Tobacco use (4) Prediabetes: Status: Acute Code(s): R73.03 - Prediabetes (5) Hyperlipidemia: Status: Acute Code(s): E78.5 - Hyperlipidemia, unspecified Plan Elderly female with a long history of 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 Plan 1. Gather collateral information. 2. Continue with the same treatment. 3. Continue with medical treatment 03/01 continue current medications. I spent minutes with the patient and/or on the patient floor today, greater than?50% of which was spent counseling/coordinating care. Reason for contiued inpatient stay Substantial Risk for: harm to self
[2022-03-01] MEDS: risperiDONE 1 MG TABLET PO (09:45)
[2022-03-01] MEDS: FLUoxetine HCl 20 MG CAPSULE 60 MG PO (09:46)
[2022-03-01] MEDS: cloNIDine HCL 0.1 MG TABLET PO ×2 (09:46→20:23)
[2022-03-01] MEDS: Metoprolol Succinate ER 12.5 MG HALFTAB.ER.24H PO (09:46)
[2022-03-01 18:00] VITALS: BP 123/58; PULSE 58; RESP 17; TEMP 36.8; O2SAT 97
[2022-03-01] MEDS: Mirtazapine 15 MG TABLET PO (20:23)
[2022-03-01] MEDS: Atorvastatin Calcium 40 MG TABLET PO (20:23)
[2022-03-01] MEDS: risperiDONE 2 MG TABLET PO (20:24)
[2022-03-01] MEDS: traZODone HCL 100 MG TABLET PO (20:30)
[2022-03-02 08:17] VITALS: BP 104/57; PULSE 81; RESP 17; TEMP 35.8; O2SAT 92
[2022-03-02] MEDS: FLUoxetine HCl 20 MG CAPSULE 60 MG PO (08:21)
[2022-03-02] MEDS: risperiDONE 1 MG TABLET PO (08:22)
[2022-03-02] MEDS: Metoprolol Succinate ER 12.5 MG HALFTAB.ER.24H PO (09:04)
--- NOTE | 2022-03-02 11:17 | P.PNPSI_ITS ---
Subjective Subjective Date of Service: 03/02/22 Reason For Visit: Depression/ SI Subjective Notes: Conditional Voluntary Interim History: P.t Is depressed withdrawn anxious preoccupied hopeless hopeless denies active SI Medication Compliance: Yes Side effects from medications: No Attending Groups: Yes Mental Status Exam Mental Status Exam Patient Appearance: Well Grooomed Patient Orientation: Person and Situation Level of Consciousness: Awake Patient Behavior: Cooperative Mood Description: Withdrawn Affect Description: Depressed Patient Cognition Impaired: Yes Ability to Follow Directions: Good Speech Pattern: Clear Diagnostics Vital Signs (24Hr): Vital Signs - 24 hr 03/01/22 18:00 03/02/22 08:17 Temperature 98.2 F 96.5 F L Pulse Rate 58 81 Respiratory Rate 17 17 Blood Pressure 123/58 L 104/57 L Pulse Oximetry 97 92 Oxygen Delivery Method Room Air Room Air BMI result Body Mass Index 25.8 Labs Results: 02/26/22 21:15 02/26/22 21:15 Medications Medications Current Medications Acetaminophen (Acetaminophen 325 Mg Tablet) 650 mg PO Q6H PRN PRN Reason: Headache/Pain Mild Scale (1-3) Last Admin: 02/28/22 22:31 Dose: 650 mg Al Hydroxide/Mg Hydroxide (Magnesium Hydrox/Alum Hydrox 30 Ml Oral.Susp) 30 ml PO Q6H PRN PRN Reason: Heartburn/Nausea Atorvastatin Calcium (Atorvastatin Calcium 40 Mg Tablet) 40 mg PO BEDTIME [facility] Last Admin: 03/01/22 20:23 Dose: 40 mg Clonazepam (Clonazepam 0.5 Mg Tablet) 0.5 mg PO BID PRN PRN Reason: anxiety attack Last Admin: 02/28/22 20:15 Dose: 0.5 mg Clonidine HCl (Clonidine Hcl 0.1 Mg Tablet) 0.1 mg PO BID [facility]; Protocol Last Admin: 03/02/22 09:05 Dose: Not Given Fluoxetine HCl (Fluoxetine Hcl 20 Mg Capsule) 60 mg PO DAILY [facility] Last Admin: 03/02/22 08:21 Dose: 60 mg Hydroxyzine HCl (Hydroxyzine Hcl 25 Mg Tablet) 25 mg PO Q6H PRN PRN Reason: Anxiety Magnesium Hydroxide (Milk Of Magnesia 30 Ml Oral.Susp) 30 ml PO DAILY PRN PRN Reason: Constipation Metoprolol Succinate (Metoprolol Succinate Er 12.5 Mg Halftab.Er.24h) 12.5 mg PO DAILY [facility]; Protocol Last Admin: 03/02/22 09:04 Dose: 12.5 mg Mirtazapine (Mirtazapine 15 Mg Tablet) 15 mg PO BEDTIME [facility] Last Admin: 03/01/22 20:23 Dose: 15 mg Risperidone (Risperidone 2 Mg Tablet) 2 mg PO BEDTIME [facility] Last Admin: 03/01/22 20:24 Dose: 2 mg Risperidone (Risperidone 1 Mg Tablet) 1 mg PO DAILY [facility] Last Admin: 03/02/22 08:22 Dose: 1 mg Trazodone HCl (Trazodone Hcl 100 Mg Tablet) 100 mg PO BEDTIME PRN PRN Reason: insomnia Last Admin: 03/01/22 20:30 Dose: 100 mg Trazodone HCl (Trazodone Hcl 50 Mg Tablet) 50 mg PO BEDTIME PRN PRN Reason: Insomnia Last Admin: 02/28/22 22:32 Dose: 50 mg Allergies Allergies Allergy/AdvReac Type Severity Reaction Status Date / Time adhesive AdvReac Unknown Verified 04/21/21 23:21 aspirin AdvReac Unknown Verified 04/21/21 23:20 epinephrine AdvReac Unknown Verified 04/21/21 23:21 Assessment & Plan Assessment & Plan (1) MDD (major depressive disorder), recurrent episode, moderate: Status: Acute Code(s): F33.1 - Major depressive disorder, recurrent, moderate Assessment and Plan: Current note for 03/02/2022 Patient depressed withdrawn anxious and preoccupied. 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 Plan 1. Gather collateral information. 2. Continue with the same treatment. 3. Continue with medical treatment 03/01 continue current medications. I spent minutes with the patient and/or on the patient floor today, greater than?50% of which was spent counseling/coordinating care. Reason for contiued inpatient stay Substantial Risk for: harm to self
[2022-03-02 18:00] VITALS: BP 124/78; PULSE 58; RESP 16; TEMP 36.6; O2SAT 95
[2022-03-02] MEDS: Mirtazapine 15 MG TABLET PO (20:07)
[2022-03-02] MEDS: Atorvastatin Calcium 40 MG TABLET PO (20:07)
[2022-03-02] MEDS: cloNIDine HCL 0.1 MG TABLET PO (20:07)
[2022-03-02] MEDS: traZODone HCL 100 MG TABLET PO (20:07)
[2022-03-02] MEDS: risperiDONE 2 MG TABLET PO (20:07)
[2022-03-03 06:00] VITALS: BP 144/62; PULSE 62; RESP 16; TEMP 36.6; O2SAT 92
[2022-03-03] MEDS: FLUoxetine HCl 20 MG CAPSULE 60 MG PO (08:17)
[2022-03-03] MEDS: Metoprolol Succinate ER 12.5 MG HALFTAB.ER.24H PO (08:17)
[2022-03-03] MEDS: cloNIDine HCL 0.1 MG TABLET PO ×2 (08:18→20:36)
[2022-03-03] MEDS: Brexpiprazole 1 MG TABLET 0.5 MG PO (11:13)
--- NOTE | 2022-03-03 12:28 | HO.PSYCHPN ---
Subjective Subjective Date of Service: 03/03/22 Reason For Visit: Depression/ SI Subjective Notes: Conditional Voluntary Interim History: Patient was seen and discussed in rounds today. Records and plans were reviewed. She has been stable and continues to be cooperative. Placement continues to be an issue. Eating and sleeping adequately. No complaints. No changes were made today Medication Compliance: Yes Side effects from medications: No Review of Systems Review of Systems Yes all other systems are reviewed and are negative Diagnostics Vital Signs (24Hr): Vital Signs - 24 hr 03/02/22 18:00 03/03/22 06:00 Temperature 97.9 F 97.8 F Pulse Rate 58 62 Respiratory Rate 16 16 Blood Pressure 124/78 144/62 H Pulse Oximetry 95 92 Oxygen Delivery Method Room Air Room Air BMI result Body Mass Index 25.8 Labs Results: 02/26/22 21:15 02/26/22 21:15 Medications Medications Current Medications Acetaminophen (Acetaminophen 325 Mg Tablet) 650 mg PO Q6H PRN PRN Reason: Headache/Pain Mild Scale (1-3) Last Admin: 02/28/22 22:31 Dose: 650 mg Al Hydroxide/Mg Hydroxide (Magnesium Hydrox/Alum Hydrox 30 Ml Oral.Susp) 30 ml PO Q6H PRN PRN Reason: Heartburn/Nausea Atorvastatin Calcium (Atorvastatin Calcium 40 Mg Tablet) 40 mg PO BEDTIME [facility] Last Admin: 03/02/22 20:07 Dose: 40 mg Brexpiprazole (Brexpiprazole 1 Mg Tablet) 0.5 mg PO DAILY [facility] Last Admin: 03/03/22 11:13 Dose: 0.5 mg Clonazepam (Clonazepam 0.5 Mg Tablet) 0.5 mg PO BID PRN PRN Reason: anxiety attack Last Admin: 02/28/22 20:15 Dose: 0.5 mg Clonidine HCl (Clonidine Hcl 0.1 Mg Tablet) 0.1 mg PO BID [facility]; Protocol Last Admin: 03/03/22 08:18 Dose: 0.1 mg Fluoxetine HCl (Fluoxetine Hcl 20 Mg Capsule) 60 mg PO DAILY [facility] Last Admin: 03/03/22 08:17 Dose: 60 mg Hydroxyzine HCl (Hydroxyzine Hcl 25 Mg Tablet) 25 mg PO Q6H PRN PRN Reason: Anxiety Magnesium Hydroxide (Milk Of Magnesia 30 Ml Oral.Susp) 30 ml PO DAILY PRN PRN Reason: Constipation Metoprolol Succinate (Metoprolol Succinate Er 12.5 Mg Halftab.Er.24h) 12.5 mg PO DAILY [facility]; Protocol Last Admin: 03/03/22 08:17 Dose: 12.5 mg Mirtazapine (Mirtazapine 15 Mg Tablet) 15 mg PO BEDTIME [facility] Last Admin: 03/02/22 20:07 Dose: 15 mg Risperidone (Risperidone 2 Mg Tablet) 2 mg PO BEDTIME [facility] Last Admin: 03/02/22 20:07 Dose: 2 mg Trazodone HCl (Trazodone Hcl 100 Mg Tablet) 100 mg PO BEDTIME PRN PRN Reason: insomnia Last Admin: 03/02/22 20:07 Dose: 100 mg Trazodone HCl (Trazodone Hcl 50 Mg Tablet) 50 mg PO BEDTIME PRN PRN Reason: Insomnia Last Admin: 02/28/22 22:32 Dose: 50 mg Allergies Allergies Allergy/AdvReac Type Severity Reaction Status Date / Time adhesive AdvReac Unknown Verified 04/21/21 23:21 aspirin AdvReac Unknown Verified 04/21/21 23:20 epinephrine AdvReac Unknown Verified 04/21/21 23:21 Assessment & Plan Assessment & Plan (1) MDD (major depressive disorder), recurrent episode, moderate: Status: Acute Code(s): F33.1 - Major depressive disorder, recurrent, moderate Assessment and Plan: Current note for 03/02/2022 Patient depressed withdrawn anxious and preoccupied. Recurrent admission much of it related to stress being from her who is in a assisted facility (2) COPD (chronic obstructive pulmonary disease): Status: Acute Code(s): J44.9 - Chronic obstructive pulmonary disease, unspecified (3) Tobacco abuse: Status: Acute Code(s): Z72.0 - Tobacco use (4) Prediabetes: Status: Acute Code(s): R73.03 - Prediabetes (5) Hyperlipidemia: Status: Acute Code(s): E78.5 - Hyperlipidemia, unspecified Plan Elderly female with a long history of 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 Plan 1. Gather collateral information. 2. Continue with the same treatment. 3. Continue with medical treatment 03/01 continue current medications. 03/03: Continue current regimen and plans I spent minutes with the patient and/or on the patient floor today, greater than?50% of which was spent counseling/coordinating care. Reason for contiued inpatient stay Substantial Risk for: inability to function
[2022-03-03 18:00] VITALS: BP 140/65; PULSE 60; RESP 18; TEMP 35.8; O2SAT 95
[2022-03-03] MEDS: Mirtazapine 15 MG TABLET PO (20:36)
[2022-03-03] MEDS: traZODone HCL 100 MG TABLET PO (20:37)
[2022-03-03] MEDS: risperiDONE 2 MG TABLET PO (20:37)
[2022-03-03] MEDS: Atorvastatin Calcium 40 MG TABLET PO (20:37)
[2022-03-04 06:00] VITALS: BP 113/55; PULSE 63; RESP 14; TEMP 36; O2SAT 92
[2022-03-04] MEDS: Brexpiprazole 1 MG TABLET 0.5 MG PO (08:05)
[2022-03-04] MEDS: cloNIDine HCL 0.1 MG TABLET PO ×2 (08:06→20:28)
[2022-03-04] MEDS: Metoprolol Succinate ER 12.5 MG HALFTAB.ER.24H PO (08:06)
--- NOTE | 2022-03-04 10:27 | P.PNPSI_ITS ---
Subjective Subjective Date of Service: 03/04/22 Reason For Visit: Depression/ SI Subjective Notes: Conditional Voluntary Interim History: Patient was seen and discussed in rounds today. Records and plans were reviewed. She has been doing fairly well with no incidents. She is med compliant. Sleeping and eating adequately. No complaints. No changes were made. No dangerous behaviors reported. Medication Compliance: Yes Side effects from medications: No Review of Systems Review of Systems Yes all other systems are reviewed and are negative Diagnostics Vital Signs (24Hr): Vital Signs - 24 hr 03/03/22 18:00 03/04/22 06:00 Temperature 96.5 F L 96.8 F Pulse Rate 60 63 Respiratory Rate 18 14 Blood Pressure 140/65 H 113/55 L Pulse Oximetry 95 92 Oxygen Delivery Method Room Air Room Air BMI result Body Mass Index 25.8 Labs Results: 02/26/22 21:15 02/26/22 21:15 Medications Medications Current Medications Acetaminophen (Acetaminophen 325 Mg Tablet) 650 mg PO Q6H PRN PRN Reason: Headache/Pain Mild Scale (1-3) Last Admin: 02/28/22 22:31 Dose: 650 mg Al Hydroxide/Mg Hydroxide (Magnesium Hydrox/Alum Hydrox 30 Ml Oral.Susp) 30 ml PO Q6H PRN PRN Reason: Heartburn/Nausea Atorvastatin Calcium (Atorvastatin Calcium 40 Mg Tablet) 40 mg PO BEDTIME [facility] Last Admin: 03/03/22 20:37 Dose: 40 mg Brexpiprazole (Brexpiprazole 1 Mg Tablet) 0.5 mg PO DAILY [facility] Last Admin: 03/04/22 08:05 Dose: 0.5 mg Clonazepam (Clonazepam 0.5 Mg Tablet) 0.5 mg PO BID PRN PRN Reason: anxiety attack Last Admin: 02/28/22 20:15 Dose: 0.5 mg Clonidine HCl (Clonidine Hcl 0.1 Mg Tablet) 0.1 mg PO BID [facility]; Protocol Last Admin: 03/04/22 08:06 Dose: 0.1 mg Fluoxetine HCl (Fluoxetine Hcl 20 Mg Capsule) 60 mg PO DAILY [facility] Last Admin: 03/03/22 08:17 Dose: 60 mg Hydroxyzine HCl (Hydroxyzine Hcl 25 Mg Tablet) 25 mg PO Q6H PRN PRN Reason: Anxiety Magnesium Hydroxide (Milk Of Magnesia 30 Ml Oral.Susp) 30 ml PO DAILY PRN PRN Reason: Constipation Metoprolol Succinate (Metoprolol Succinate Er 12.5 Mg Halftab.Er.24h) 12.5 mg PO DAILY [facility]; Protocol Last Admin: 03/04/22 08:06 Dose: 12.5 mg Mirtazapine (Mirtazapine 15 Mg Tablet) 15 mg PO BEDTIME [facility] Last Admin: 03/03/22 20:36 Dose: 15 mg Risperidone (Risperidone 2 Mg Tablet) 2 mg PO BEDTIME [facility] Last Admin: 03/03/22 20:37 Dose: 2 mg Trazodone HCl (Trazodone Hcl 100 Mg Tablet) 100 mg PO BEDTIME PRN PRN Reason: insomnia Last Admin: 03/03/22 20:37 Dose: 100 mg Trazodone HCl (Trazodone Hcl 50 Mg Tablet) 50 mg PO BEDTIME PRN PRN Reason: Insomnia Last Admin: 02/28/22 22:32 Dose: 50 mg Allergies Allergies Allergy/AdvReac Type Severity Reaction Status Date / Time adhesive AdvReac Unknown Verified 04/21/21 23:21 aspirin AdvReac Unknown Verified 04/21/21 23:20 epinephrine AdvReac Unknown Verified 04/21/21 23:21 Assessment & Plan Assessment & Plan (1) MDD (major depressive disorder), recurrent episode, moderate: Status: Acute Code(s): F33.1 - Major depressive disorder, recurrent, moderate Assessment and Plan: Current note for 03/02/2022 Patient depressed withdrawn anxious and preoccupied. Recurrent admission much of it related to stress being from her who is in a prison facility (2) COPD (chronic obstructive pulmonary disease): Status: Acute Code(s): J44.9 - Chronic obstructive pulmonary disease, unspecified (3) Tobacco abuse: Status: Acute Code(s): Z72.0 - Tobacco use (4) Prediabetes: Status: Acute Code(s): R73.03 - Prediabetes (5) Hyperlipidemia: Status: Acute Code(s): E78.5 - Hyperlipidemia, unspecified Plan Elderly female with a long history of 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 Plan 1. Gather collateral information. 2. Continue with the same treatment. 3. Continue with medical treatment 03/01 continue current medications. 03/03: Continue current regimen and plans 03/04: Continue current plans and regimen I spent minutes with the patient and/or on the patient floor today, greater than?50% of which was spent counseling/coordinating care. Reason for contiued inpatient stay Substantial Risk for: inability to function
[2022-03-04] MEDS: FLUoxetine HCl 20 MG CAPSULE 60 MG PO (11:23)
[2022-03-04 18:00] VITALS: BP 143/66; PULSE 60; RESP 17; TEMP 36.4; O2SAT 97
[2022-03-04] MEDS: traZODone HCL 100 MG TABLET PO (20:26)
[2022-03-04] MEDS: Atorvastatin Calcium 40 MG TABLET PO (20:26)
[2022-03-04] MEDS: risperiDONE 2 MG TABLET PO (20:27)
[2022-03-04] MEDS: Mirtazapine 15 MG TABLET PO (20:28)
[2022-03-04] MEDS: clonazePAM 0.5 MG TABLET PO (20:28)
[2022-03-05 08:00] VITALS: BP 121/61; PULSE 88; RESP 16; TEMP 36.5; O2SAT 93
[2022-03-05] MEDS: Brexpiprazole 1 MG TABLET 0.5 MG PO (08:01)
[2022-03-05] MEDS: Metoprolol Succinate ER 12.5 MG HALFTAB.ER.24H PO (08:02)
[2022-03-05] MEDS: cloNIDine HCL 0.1 MG TABLET PO ×2 (08:02→21:33)
[2022-03-05] MEDS: FLUoxetine HCl 20 MG CAPSULE 60 MG PO (08:02)
--- NOTE | 2022-03-05 13:29 | HO.PSYCHPN ---
Subjective Subjective Date of Service: 03/05/22 Reason For Visit: Depression/ SI Subjective Notes: Conditional Voluntary Interim History: pt depressed insight that has difficulty with unstructured time passive si c/o calf bilat discomfort Medication Compliance: Yes Mental Status Exam Mental Status Exam Patient Appearance: Well Grooomed Patient Orientation: Person and Situation Level of Consciousness: Awake Patient Behavior: Cooperative Mood Description: Withdrawn Affect Description: Depressed, Anxious and Nervous Patient Cognition Impaired: Yes Ability to Follow Directions: Good Speech Pattern: Clear Diagnostics Vital Signs (24Hr): Vital Signs - 24 hr 03/04/22 18:00 03/05/22 08:00 Temperature 97.6 F 97.7 F Pulse Rate 60 88 Respiratory Rate 17 16 Blood Pressure 143/66 H 121/61 Pulse Oximetry 97 93 Oxygen Delivery Method Room Air Room Air BMI result Body Mass Index 25.8 Labs Results: 02/26/22 21:15 02/26/22 21:15 Medications Medications Current Medications Acetaminophen (Acetaminophen 325 Mg Tablet) 650 mg PO Q6H PRN PRN Reason: Headache/Pain Mild Scale (1-3) Last Admin: 02/28/22 22:31 Dose: 650 mg Al Hydroxide/Mg Hydroxide (Magnesium Hydrox/Alum Hydrox 30 Ml Oral.Susp) 30 ml PO Q6H PRN PRN Reason: Heartburn/Nausea Atorvastatin Calcium (Atorvastatin Calcium 40 Mg Tablet) 40 mg PO BEDTIME [facility] Last Admin: 03/04/22 20:26 Dose: 40 mg Brexpiprazole (Brexpiprazole 1 Mg Tablet) 1 mg PO DAILY [facility] Clonazepam (Clonazepam 0.5 Mg Tablet) 0.5 mg PO BID PRN PRN Reason: anxiety attack Last Admin: 03/04/22 20:28 Dose: 0.5 mg Clonidine HCl (Clonidine Hcl 0.1 Mg Tablet) 0.1 mg PO BID [facility]; Protocol Last Admin: 03/05/22 08:02 Dose: 0.1 mg Fluoxetine HCl (Fluoxetine Hcl 20 Mg Capsule) 60 mg PO DAILY [facility] Last Admin: 03/05/22 08:02 Dose: 60 mg Hydroxyzine HCl (Hydroxyzine Hcl 25 Mg Tablet) 25 mg PO Q6H PRN PRN Reason: Anxiety Magnesium Hydroxide (Milk Of Magnesia 30 Ml Oral.Susp) 30 ml PO DAILY PRN PRN Reason: Constipation Metoprolol Succinate (Metoprolol Succinate Er 12.5 Mg Halftab.Er.24h) 12.5 mg PO DAILY [facility]; Protocol Last Admin: 03/05/22 08:02 Dose: 12.5 mg Mirtazapine (Mirtazapine 15 Mg Tablet) 15 mg PO BEDTIME [facility] Last Admin: 03/04/22 20:28 Dose: 15 mg Risperidone (Risperidone 2 Mg Tablet) 2 mg PO BEDTIME [facility] Last Admin: 03/04/22 20:27 Dose: 2 mg Trazodone HCl (Trazodone Hcl 100 Mg Tablet) 100 mg PO BEDTIME PRN PRN Reason: insomnia Last Admin: 03/04/22 20:26 Dose: 100 mg Trazodone HCl (Trazodone Hcl 50 Mg Tablet) 50 mg PO BEDTIME PRN PRN Reason: Insomnia Last Admin: 02/28/22 22:32 Dose: 50 mg Allergies Allergies Allergy/AdvReac Type Severity Reaction Status Date / Time adhesive AdvReac Unknown Verified 04/21/21 23:21 aspirin AdvReac Unknown Verified 04/21/21 23:20 epinephrine AdvReac Unknown Verified 04/21/21 23:21 Assessment & Plan Assessment & Plan (1) MDD (major depressive disorder), recurrent episode, moderate: Status: Acute Code(s): F33.1 - Major depressive disorder, recurrent, moderate Assessment and Plan: Current note for 03/02/2022 Patient depressed withdrawn anxious and preoccupied. Recurrent admission much of it related to stress being from her who is in a jail facility 03/05/22 Pt depressed withdrawn c/o muscle discomfort x months will try cogentin (2) COPD (chronic obstructive pulmonary disease): Status: Acute Code(s): J44.9 - Chronic obstructive pulmonary disease, unspecified (3) Tobacco abuse: Status: Acute Code(s): Z72.0 - Tobacco use (4) Prediabetes: Status: Acute Code(s): R73.03 - Prediabetes (5) Hyperlipidemia: Status: Acute Code(s): E78.5 - Hyperlipidemia, unspecified Plan Elderly female with a long history of 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 Plan 1. Gather collateral information. 2. Continue with the same treatment. 3. Continue with medical treatment 03/01 continue current medications. 03/03: Continue current regimen and plans 03/04: Continue current plans and regimen I spent minutes with the patient and/or on the patient floor today, greater than?50% of which was spent counseling/coordinating care. Reason for contiued inpatient stay Substantial Risk for: harm to self, inability to function and rapid decompensation
[2022-03-05] MEDS: traZODone HCL 100 MG TABLET PO (21:32)
[2022-03-05] MEDS: Mirtazapine 15 MG TABLET PO (21:34)
[2022-03-05] MEDS: clonazePAM 0.5 MG TABLET PO (21:34)
[2022-03-05] MEDS: Atorvastatin Calcium 40 MG TABLET PO (21:35)
[2022-03-05 23:12] VITALS: BP 150/76; PULSE 101; RESP 18; TEMP 36.6; O2SAT 94
[2022-03-06] MEDS: cloNIDine HCL 0.1 MG TABLET PO ×2 (08:32→20:23)
[2022-03-06] MEDS: FLUoxetine HCl 20 MG CAPSULE 40 MG PO (08:33)
[2022-03-06] MEDS: Metoprolol Succinate ER 12.5 MG HALFTAB.ER.24H PO (08:33)
[2022-03-06] MEDS: Benztropine Mesylate 0.5 MG TABLET PO ×2 (08:33→20:22)
[2022-03-06] MEDS: Brexpiprazole 1 MG TABLET PO (08:33)
[2022-03-06 18:00] VITALS: BP 136/66; PULSE 55; RESP 18; TEMP 36.7; O2SAT 94
[2022-03-06] MEDS: Atorvastatin Calcium 40 MG TABLET PO (20:22)
[2022-03-06] MEDS: Mirtazapine 15 MG TABLET PO (20:23)
[2022-03-06] MEDS: risperiDONE 1 MG TABLET PO (20:23)
[2022-03-06] MEDS: Acetaminophen 325 MG TABLET 650 MG PO (20:24)
[2022-03-06] MEDS: traZODone HCL 50 MG TABLET PO (20:25)
[2022-03-06] MEDS: clonazePAM 0.5 MG TABLET PO (20:25)
--- NOTE | 2022-03-06 21:21 | P.PNPSI_ITS ---
Subjective Subjective Date of Service: 03/06/22 Reason For Visit: Depression/ SI Subjective Notes: Conditional Voluntary Healthcare Proxy: No Interim History: Patient is a 76-year-old female depressed ruminating feeling somewhat lost helpless hopeless difficulty seeing how she can not live without her discuss fear when going home overdosing not want to try rest home setting but depressed overwhelmed thought she would be better off . Reported past response to ECT. Was able to take information regarding TMS Describes intermittent claudication Review of Systems Intermittent claudication Mental Status Exam Mental Status Exam Patient Appearance: Well Grooomed Patient Orientation: Person and Situation Level of Consciousness: Awake Patient Behavior: Cooperative Mood Description: Withdrawn Affect Description: Depressed, Anxious and Nervous Patient Cognition Impaired: Yes Ability to Follow Directions: Good Speech Pattern: Clear Hallucinations: None Delusions: Not Present Depressive Symptoms: Increased Anxiety, Feelings of Worthlessness and Thoughts of /Suicide Diagnostics Vital Signs (24Hr): Vital Signs - 24 hr 03/05/22 23:12 03/06/22 18:00 Temperature 97.8 F 98.1 F Pulse Rate 101 H 55 Respiratory Rate 18 18 Blood Pressure 150/76 H 136/66 Pulse Oximetry 94 94 Oxygen Delivery Method Room Air Room Air BMI result Body Mass Index 25.8 Labs Results: 02/26/22 21:15 02/26/22 21:15 Medications Medications Current Medications Acetaminophen (Acetaminophen 325 Mg Tablet) 650 mg PO Q6H PRN PRN Reason: Headache/Pain Mild Scale (1-3) Last Admin: 03/06/22 20:24 Dose: 650 mg Al Hydroxide/Mg Hydroxide (Magnesium Hydrox/Alum Hydrox 30 Ml Oral.Susp) 30 ml PO Q6H PRN PRN Reason: Heartburn/Nausea Atorvastatin Calcium (Atorvastatin Calcium 40 Mg Tablet) 40 mg PO BEDTIME [facility] Last Admin: 03/06/22 20:22 Dose: 40 mg Benztropine Mesylate (Benztropine Mesylate 0.5 Mg Tablet) 0.5 mg PO BID [facility] Last Admin: 03/06/22 20:22 Dose: 0.5 mg Brexpiprazole (Brexpiprazole 1 Mg Tablet) 1 mg PO DAILY [facility] Last Admin: 03/06/22 08:33 Dose: 1 mg Clonazepam (Clonazepam 0.5 Mg Tablet) 0.5 mg PO BID PRN PRN Reason: anxiety attack Last Admin: 03/06/22 20:25 Dose: 0.5 mg Clonidine HCl (Clonidine Hcl 0.1 Mg Tablet) 0.1 mg PO BID [facility]; Protocol Last Admin: 03/06/22 20:23 Dose: 0.1 mg Fluoxetine HCl (Fluoxetine Hcl 20 Mg Capsule) 40 mg PO DAILY [facility] Last Admin: 03/06/22 08:33 Dose: 40 mg Hydroxyzine HCl (Hydroxyzine Hcl 25 Mg Tablet) 25 mg PO Q6H PRN PRN Reason: Anxiety Magnesium Hydroxide (Milk Of Magnesia 30 Ml Oral.Susp) 30 ml PO DAILY PRN PRN Reason: Constipation Metoprolol Succinate (Metoprolol Succinate Er 12.5 Mg Halftab.Er.24h) 12.5 mg PO DAILY [facility]; Protocol Last Admin: 03/06/22 08:33 Dose: 12.5 mg Mirtazapine (Mirtazapine 15 Mg Tablet) 15 mg PO BEDTIME [facility] Last Admin: 03/06/22 20:23 Dose: 15 mg Risperidone (Risperidone 1 Mg Tablet) 1 mg PO BEDTIME [facility] Last Admin: 03/06/22 20:23 Dose: 1 mg Trazodone HCl (Trazodone Hcl 50 Mg Tablet) 50 mg PO BEDTIME PRN PRN Reason: Insomnia Last Admin: 03/06/22 20:25 Dose: 50 mg Allergies Allergies Allergy/AdvReac Type Severity Reaction Status Date / Time adhesive AdvReac Unknown Verified 04/21/21 23:21 aspirin AdvReac Unknown Verified 04/21/21 23:20 epinephrine AdvReac Unknown Verified 04/21/21 23:21 Assessment & Plan Assessment & Plan (1) MDD (major depressive disorder), recurrent episode, moderate: Status: Acute Code(s): F33.1 - Major depressive disorder, recurrent, moderate Assessment and Plan: Current note for 03/02/2022 Patient depressed withdrawn anxious and preoccupied. Recurrent admission much of it related to stress being from her who is in a shelter facility 03/05/22 Pt depressed withdrawn c/o muscle discomfort x months will try cogentin 03/06/22 inc rexulti as tolerated ck LE flow sec to claudication ?tms outpt monitor safety limited executive fx (2) COPD (chronic obstructive pulmonary disease): Status: Acute Code(s): J44.9 - Chronic obstructive pulmonary disease, unspecified (3) Tobacco abuse: Status: Acute Code(s): Z72.0 - Tobacco use (4) Prediabetes: Status: Acute Code(s): R73.03 - Prediabetes (5) Hyperlipidemia: Status: Acute Code(s): E78.5 - Hyperlipidemia, unspecified Plan Elderly female with a long history of 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 Plan 1. Gather collateral information. 2. Continue with the same treatment. 3. Continue with medical treatment 03/01 continue current medications. 03/03: Continue current regimen and plans 03/04: Continue current plans and regimen I spent minutes with the patient and/or on the patient floor today, greater than?50% of which was spent counseling/coordinating care. Reason for contiued inpatient stay Substantial Risk for: harm to self, inability to function and rapid dec ompensation
[2022-03-07 06:00] VITALS: BP 143/71; PULSE 57; RESP 16; TEMP 37; O2SAT 93
[2022-03-07] MEDS: FLUoxetine HCl 20 MG CAPSULE 40 MG PO (08:10)
[2022-03-07] MEDS: Brexpiprazole 1 MG TABLET PO (08:10)
[2022-03-07] MEDS: Metoprolol Succinate ER 12.5 MG HALFTAB.ER.24H PO (08:10)
[2022-03-07] MEDS: Benztropine Mesylate 0.5 MG TABLET PO ×2 (08:11→21:17)
[2022-03-07] MEDS: cloNIDine HCL 0.1 MG TABLET PO ×2 (08:11→21:17)
--- NOTE | 2022-03-07 08:59 | HO.PSYCHPN ---
Subjective Subjective Date of Service: 03/07/22 Reason For Visit: Depression/ SI Subjective Notes: Conditional Voluntary Healthcare Proxy: Yes (Not invoke) Interim History: The patient has flat somewhat dysphoric feel safe in this setting does not feel safe to go home. Mentation is slowed difficulty with balance pain in her legs Feels sluggish sedated during the day. Patient does relate a few weeks ago she did have a concussion falling in the parking lot Medication Compliance: Yes Mental Status Exam Mental Status Exam Patient Appearance: Well Grooomed Patient Orientation: Person, Place and Situation Level of Consciousness: Awake Patient Behavior: Cooperative Behavior Comments: slowed Mood Description: Withdrawn Affect Description: Depressed, Anxious and Nervous Patient Cognition Impaired: Yes Ability to Follow Directions: Good Speech Pattern: Clear Hallucinations: None Delusions: Not Present Depressive Symptoms: Increased Anxiety, Feelings of Worthlessness and Thoughts of /Suicide Diagnostics Vital Signs (24Hr): Vital Signs - 24 hr 03/06/22 18:00 03/07/22 06:00 Temperature 98.1 F 98.6 F Pulse Rate 55 57 Respiratory Rate 18 16 Blood Pressure 136/66 143/71 H Pulse Oximetry 94 93 Oxygen Delivery Method Room Air Room Air BMI result Body Mass Index 25.8 Labs Results: 02/26/22 21:15 02/26/22 21:15 Medications Medications Current Medications Acetaminophen (Acetaminophen 325 Mg Tablet) 650 mg PO Q6H PRN PRN Reason: Headache/Pain Mild Scale (1-3) Last Admin: 03/06/22 20:24 Dose: 650 mg Al Hydroxide/Mg Hydroxide (Magnesium Hydrox/Alum Hydrox 30 Ml Oral.Susp) 30 ml PO Q6H PRN PRN Reason: Heartburn/Nausea Atorvastatin Calcium (Atorvastatin Calcium 40 Mg Tablet) 40 mg PO BEDTIME [facility] Last Admin: 03/06/22 20:22 Dose: 40 mg Benztropine Mesylate (Benztropine Mesylate 0.5 Mg Tablet) 0.5 mg PO BID [facility] Last Admin: 03/07/22 08:11 Dose: 0.5 mg Brexpiprazole (Brexpiprazole 1 Mg Tablet) 1 mg PO DAILY [facility] Last Admin: 03/07/22 08:10 Dose: 1 mg Clonazepam (Clonazepam 0.5 Mg Tablet) 0.5 mg PO BID PRN PRN Reason: anxiety attack Last Admin: 03/06/22 20:25 Dose: 0.5 mg Clonidine HCl (Clonidine Hcl 0.1 Mg Tablet) 0.1 mg PO BID [facility]; Protocol Last Admin: 03/07/22 08:11 Dose: 0.1 mg Fluoxetine HCl (Fluoxetine Hcl 20 Mg Capsule) 40 mg PO DAILY [facility] Last Admin: 03/07/22 08:10 Dose: 40 mg Hydroxyzine HCl (Hydroxyzine Hcl 25 Mg Tablet) 25 mg PO Q6H PRN PRN Reason: Anxiety Magnesium Hydroxide (Milk Of Magnesia 30 Ml Oral.Susp) 30 ml PO DAILY PRN PRN Reason: Constipation Metoprolol Succinate (Metoprolol Succinate Er 12.5 Mg Halftab.Er.24h) 12.5 mg PO DAILY [facility]; Protocol Last Admin: 03/07/22 08:10 Dose: 12.5 mg Mirtazapine (Mirtazapine 15 Mg Tablet) 15 mg PO BEDTIME [facility] Last Admin: 03/06/22 20:23 Dose: 15 mg Risperidone (Risperidone 1 Mg Tablet) 1 mg PO BEDTIME [facility] Last Admin: 03/06/22 20:23 Dose: 1 mg Trazodone HCl (Trazodone Hcl 50 Mg Tablet) 50 mg PO BEDTIME PRN PRN Reason: Insomnia Last Admin: 03/06/22 20:25 Dose: 50 mg Allergies Allergies Allergy/AdvReac Type Severity Reaction Status Date / Time adhesive AdvReac Unknown Verified 04/21/21 23:21 aspirin AdvReac Unknown Verified 04/21/21 23:20 epinephrine AdvReac Unknown Verified 04/21/21 23:21 Assessment & Plan Assessment & Plan (1) MDD (major depressive disorder), recurrent episode, moderate: Status: Acute Code(s): F33.1 - Major depressive disorder, recurrent, moderate Assessment and Plan: Current note for 03/02/2022 Patient depressed withdrawn anxious and preoccupied. Recurrent admission much of it related to stress being from her who is in a long term facility 03/05/22 Pt depressed withdrawn c/o muscle discomfort x months will try cogentin 03/06/22 inc rexulti as tolerated ck LE flow sec to claudication ?tms outpt monitor safety limited executive fx 03/07/2022 Patient depressed cognitively slowed question recent concussion. Check lower extremity Doppler change Rexulti to the evening in case sedating (2) COPD (chronic obstructive pulmonary disease): Status: Acute Code(s): J44.9 - Chronic obstructive pulmonary disease, unspecified (3) Tobacco abuse: Status: Acute Code(s): Z72.0 - Tobacco use (4) Prediabetes: Status: Acute Code(s): R73.03 - Prediabetes (5) Hyperlipidemia: Status: Acute Code(s): E78.5 - Hyperlipidemia, unspecified Plan Elderly female with a long history of 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 Plan 1. Gather collateral information. 2. Continue with the same treatment. 3. Continue with medical treatment 03/01 continue current medications. 03/03: Continue current regimen and plans 03/04: Continue current plans and regimen I spent minutes with the patient and/or on the patient floor today, greater than?50% of which was spent counseling/coordinating care. Reason for contiued inpatient stay Substantial Risk for: harm to self and inability to function
[2022-03-07 18:00] VITALS: BP 168/74; PULSE 61; RESP 18; TEMP 36.5; O2SAT 98
[2022-03-07] MEDS: Atorvastatin Calcium 40 MG TABLET PO (21:17)
[2022-03-07] MEDS: Mirtazapine 15 MG TABLET PO (21:18)
[2022-03-07] MEDS: risperiDONE 0.5 MG TABLET PO (21:18)
[2022-03-07] MEDS: traZODone HCL 50 MG TABLET PO (21:40)
[2022-03-07] MEDS: hydrOXYzine HCL 25 MG TABLET PO (21:40)
[2022-03-08 06:00] VITALS: BP 136/61; PULSE 62; RESP 14; TEMP 36.4; O2SAT 93
[2022-03-08] MEDS: FLUoxetine HCl 20 MG CAPSULE 40 MG PO (08:06)
[2022-03-08] MEDS: Benztropine Mesylate 0.5 MG TABLET PO ×2 (08:06→20:28)
[2022-03-08] MEDS: Metoprolol Succinate ER 12.5 MG HALFTAB.ER.24H PO (08:06)
[2022-03-08 08:16] VITALS: BP 168/74; PULSE 61; O2SAT 98
[2022-03-08] MEDS: Brexpiprazole 1 MG TABLET PO (16:31)
[2022-03-08] MEDS: Atorvastatin Calcium 40 MG TABLET PO (20:27)
[2022-03-08] MEDS: risperiDONE 0.5 MG TABLET PO (20:28)
[2022-03-08] MEDS: cloNIDine HCL 0.1 MG TABLET PO (20:28)
[2022-03-08] MEDS: Mirtazapine 15 MG TABLET PO (20:28)
[2022-03-08] MEDS: hydrOXYzine HCL 25 MG TABLET PO (20:32)
[2022-03-08] MEDS: traZODone HCL 50 MG TABLET PO (20:33)
[2022-03-08 20:45] VITALS: BMI 25.9
[2022-03-08 20:46] VITALS: BP 148/72; PULSE 62; RESP 18; TEMP 36.8; O2SAT 97
--- NOTE | 2022-03-08 22:20 | P.PNPSI_ITS ---
Subjective Subjective Date of Service: 03/08/22 Reason For Visit: Depression/ SI Subjective Notes: Conditional Voluntary Interim History: Unclear if she can be safe to return home although wishes to give it a try. The patient was noted to have continue the auction difficulty in the lower extremities Medication Compliance: Intermittent Mental Status Exam Mental Status Exam Patient Appearance: Well Grooomed Patient Orientation: Person, Place and Situation Level of Consciousness: Awake Patient Behavior: Cooperative Behavior Comments: slowed Mood Description: Withdrawn Affect Description: Depressed, Anxious and Nervous Patient Cognition Impaired: Yes Ability to Follow Directions: Good Speech Pattern: Clear Hallucinations: None Delusions: Not Present Depressive Symptoms: Increased Anxiety, Feelings of Worthlessness and Thoughts of /Suicide Diagnostics Vital Signs (24Hr): Vital Signs - 24 hr 03/08/22 08:16 03/08/22 06:00 03/08/22 20:46 Temperature 97.5 F 98.2 F Pulse Rate 61 62 62 Respiratory Rate 14 18 Blood Pressure 168/74 H 136/61 148/72 H Pulse Oximetry 98 93 97 Oxygen Delivery Method Room Air Room Air BMI result Body Mass Index 25.9 Labs Results: 02/26/22 21:15 02/26/22 21:15 Imaging Radiology Impressions: ITS Impressions Duplex Scan Lower Extremity Artery 03/07/22 19:45 IMPRESSION: 1 RIGHT SIDE: There are elevated velocities in the right common femoral artery consistent with hemodynamically significant stenosis. The stenosis could be within the right external iliac artery. 2. LEFT SIDE: There are monophasic waveforms and low velocities throughout the left lower extremity. This is suspicious for an aortoiliac inflow stenosis. 3. This could be evaluated with a CAT scan angiogram of the pelvis. Venous Duplex 03/07/22 19:45 IMPRESSION: No evidence for deep venous thrombosis in the visualized veins of the bilateral lower extremities. Medications Medications Current Medications Acetaminophen (Acetaminophen 325 Mg Tablet) 650 mg PO Q6H PRN PRN Reason: Headache/Pain Mild Scale (1-3) Last Admin: 03/06/22 20:24 Dose: 650 mg Al Hydroxide/Mg Hydroxide (Magnesium Hydrox/Alum Hydrox 30 Ml Oral.Susp) 30 ml PO Q6H PRN PRN Reason: Heartburn/Nausea Atorvastatin Calcium (Atorvastatin Calcium 40 Mg Tablet) 40 mg PO BEDTIME [facility] Last Admin: 03/08/22 20:27 Dose: 40 mg Benztropine Mesylate (Benztropine Mesylate 0.5 Mg Tablet) 0.5 mg PO BID [facility] Last Admin: 03/08/22 20:28 Dose: 0.5 mg Brexpiprazole (Brexpiprazole 1 Mg Tablet) 1 mg PO DAILY@1700 [facility] Last Admin: 03/08/22 16:31 Dose: 1 mg Clonidine HCl (Clonidine Hcl 0.1 Mg Tablet) 0.1 mg PO BEDTIME [facility]; Protocol Last Admin: 03/08/22 20:28 Dose: 0.1 mg Fluoxetine HCl (Fluoxetine Hcl 20 Mg Capsule) 40 mg PO DAILY [facility] Last Admin: 03/08/22 08:06 Dose: 40 mg Hydroxyzine HCl (Hydroxyzine Hcl 25 Mg Tablet) 25 mg PO Q6H PRN PRN Reason: Anxiety Last Admin: 03/08/22 20:32 Dose: 25 mg Magnesium Hydroxide (Milk Of Magnesia 30 Ml Oral.Susp) 30 ml PO DAILY PRN PRN Reason: Constipation Metoprolol Succinate (Metoprolol Succinate Er 12.5 Mg Halftab.Er.24h) 12.5 mg PO DAILY [facility]; Protocol Last Admin: 03/08/22 08:06 Dose: 12.5 mg Mirtazapine (Mirtazapine 15 Mg Tablet) 15 mg PO BEDTIME [facility] Last Admin: 03/08/22 20:28 Dose: 15 mg Risperidone (Risperidone 0.5 Mg Tablet) 0.5 mg PO BEDTIME [facility] Last Admin: 03/08/22 20:28 Dose: 0.5 mg Trazodone HCl (Trazodone Hcl 50 Mg Tablet) 50 mg PO BEDTIME PRN PRN Reason: Insomnia Last Admin: 03/08/22 20:33 Dose: 50 mg Allergies Allergies Allergy/AdvReac Type Severity Reaction Status Date / Time adhesive AdvReac Unknown Verified 04/21/21 23:21 aspirin AdvReac Unknown Verified 04/21/21 23:20 epinephrine AdvReac Unknown Verified 04/21/21 23:21 Assessment & Plan Assessment & Plan (1) MDD (major depressive disorder), recurrent episode, moderate: Status: Acute Code(s): F33.1 - Major depressive disorder, recurrent, moderate Assessment and Plan: Current note for 03/02/2022 Patient depressed withdrawn anxious and preoccupied. Recurrent admission much of it related to stress being from her who is in a [facility] facility 03/05/22 Pt depressed withdrawn c/o muscle discomfort x months will try cogentin 03/06/22 inc rexulti as tolerated ck LE flow sec to claudication ?tms outpt monitor safety limited executive fx 03/07/2022 Patient depressed cognitively slowed question recent concussion. Check lower extremity Doppler change Rexulti to the evening in case sedating 03/08/2022 Results of vascular study reviewed with patient. She also relates a history of post concussive syndrome and balance difficulties Pt consult ordered Risperdal tapered will discontinue Rexulti changed to evenings (2) COPD (chronic obstructive pulmonary disease): Status: Acute Code(s): J44.9 - Chronic obstructive pulmonary disease, unspecified (3) Tobacco abuse: Status: Acute Code(s): Z72.0 - Tobacco use (4) Prediabetes: Status: Acute Code(s): R73.03 - Prediabetes (5) Hyperlipidemia: Status: Acute Code(s): E78.5 - Hyperlipidemia, unspecified Plan Elderly female with a long history of 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 Plan 1. Gather collateral information. 2. Continue with the same treatment. 3. Continue with medical treatment 03/01 continue current medications. 03/03: Continue current regimen and plans 03/04: Continue current plans and regimen I spent minutes with the patient and/or on the patient floor today, greater than?50% of which was spent counseling/coordinating care. Reason for contiued inpatient stay Substantial Risk for: harm to self, inability to function and rapid decompensa tion
[2022-03-09 06:00] VITALS: BP 133/96; PULSE 71; RESP 16; TEMP 36.1; O2SAT 93
[2022-03-09] MEDS: Metoprolol Succinate ER 12.5 MG HALFTAB.ER.24H PO (08:12)
[2022-03-09] MEDS: Benztropine Mesylate 0.5 MG TABLET PO ×2 (08:12→21:21)
[2022-03-09] MEDS: FLUoxetine HCl 20 MG CAPSULE 40 MG PO (08:12)
[2022-03-09] MEDS: Brexpiprazole 1 MG TABLET PO (17:32)
[2022-03-09] MEDS: Atorvastatin Calcium 40 MG TABLET PO (21:21)
[2022-03-09] MEDS: cloNIDine HCL 0.1 MG TABLET PO (21:21)
[2022-03-09] MEDS: Mirtazapine 15 MG TABLET PO (21:21)
[2022-03-09] MEDS: risperiDONE 0.5 MG TABLET PO (21:26)
--- NOTE | 2022-03-09 22:17 | P.PNPSI_ITS ---
Subjective Subjective Date of Service: 03/09/22 Reason For Visit: Depression/ SI Subjective Notes: Conditional Voluntary Healthcare Proxy: Yes (Not invoked) Guardianship: No Interim History: Patient is flat dysphoric were realistic about concerns about living alone at home an open to more options including looking at living with daughter in [facility] [employer] or rest home setting. Patient does seem improved on Rexulti Risperdal discontinued Medication Compliance: Yes Review of Systems Lower extremity vascular insufficiency Medical Review of Systems: unchanged Mental Status Exam Mental Status Exam Narrative: Patient Appearance: Well Grooomed Patient Orientation: Person, Place and Situation Level of Consciousness: Awake Patient Behavior: Cooperative Behavior Comments: slowed Mood Description: Withdrawn Affect Description: Depressed, Anxious and Nervous Patient Cognition Impaired: Yes Ability to Follow Directions: Good Speech Pattern: Clear Hallucinations: None Delusions: Not Present Depressive Symptoms: Increased Anxiety, Feelings of Worthlessness and Thoughts of /Suicide Diagnostics Vital Signs (24Hr): Vital Signs - 24 hr 03/09/22 06:00 Temperature 96.9 F Pulse Rate 71 Respiratory Rate 16 Blood Pressure 133/96 H Pulse Oximetry 93 Oxygen Delivery Method Room Air BMI result Body Mass Index 25.9 Labs Results: 02/26/22 21:15 02/26/22 21:15 Imaging Radiology Impressions: ITS Impressions Duplex Scan Lower Extremity Artery 03/07/22 19:45 IMPRESSION: 1 RIGHT SIDE: There are elevated velocities in the right common femoral artery consistent with hemodynamically significant stenosis. The stenosis could be within the right external iliac artery. 2. LEFT SIDE: There are monophasic waveforms and low velocities throughout the left lower extremity. This is suspicious for an aortoiliac inflow stenosis. 3. This could be evaluated with a CAT scan angiogram of the pelvis. Venous Duplex 03/07/22 19:45 IMPRESSION: No evidence for deep venous thrombosis in the visualized veins of the bilateral lower extremities. Medications Medications Current Medications Acetaminophen (Acetaminophen 325 Mg Tablet) 650 mg PO Q6H PRN PRN Reason: Headache/Pain Mild Scale (1-3) Last Admin: 03/06/22 20:24 Dose: 650 mg Al Hydroxide/Mg Hydroxide (Magnesium Hydrox/Alum Hydrox 30 Ml Oral.Susp) 30 ml PO Q6H PRN PRN Reason: Heartburn/Nausea Atorvastatin Calcium (Atorvastatin Calcium 40 Mg Tablet) 40 mg PO BEDTIME [facility] Last Admin: 03/09/22 21:21 Dose: 40 mg Brexpiprazole (Brexpiprazole 1 Mg Tablet) 1 mg PO DAILY@1700 [facility] Last Admin: 03/09/22 17:32 Dose: 1 mg Clonidine HCl (Clonidine Hcl 0.1 Mg Tablet) 0.1 mg PO BEDTIME [facility]; Protocol Last Admin: 03/09/22 21:21 Dose: 0.1 mg Fluoxetine HCl (Fluoxetine Hcl 20 Mg Capsule) 40 mg PO DAILY [facility] Last Admin: 03/09/22 08:12 Dose: 40 mg Hydroxyzine HCl (Hydroxyzine Hcl 25 Mg Tablet) 25 mg PO Q6H PRN PRN Reason: Anxiety Last Admin: 03/08/22 20:32 Dose: 25 mg Magnesium Hydroxide (Milk Of Magnesia 30 Ml Oral.Susp) 30 ml PO DAILY PRN PRN Reason: Constipation Metoprolol Succinate (Metoprolol Succinate Er 12.5 Mg Halftab.Er.24h) 12.5 mg PO DAILY [facility]; Protocol Last Admin: 03/09/22 08:12 Dose: 12.5 mg Mirtazapine (Mirtazapine 15 Mg Tablet) 15 mg PO BEDTIME [facility] Last Admin: 03/09/22 21:21 Dose: 15 mg Trazodone HCl (Trazodone Hcl 50 Mg Tablet) 50 mg PO BEDTIME PRN PRN Reason: Insomnia Last Admin: 03/08/22 20:33 Dose: 50 mg Allergies Allergies Allergy/AdvReac Type Severity Reaction Status Date / Time adhesive AdvReac Unknown Verified 04/21/21 23:21 aspirin AdvReac Unknown Verified 04/21/21 23:20 epinephrine AdvReac Unknown Verified 04/21/21 23:21 Assessment & Plan Assessment & Plan (1) MDD (major depressive disorder), recurrent episode, moderate: Status: Acute Code(s): F33.1 - Major depressive disorder, recurrent, moderate Assessment and Plan: Current note for 03/02/2022 Patient depressed withdrawn anxious and preoccupied. Recurrent admission much of it related to stress being from her who is in a alf facility 03/05/22 Pt depressed withdrawn c/o muscle discomfort x months will try cogentin 03/06/22 inc rexulti as tolerated ck LE flow sec to claudication ?tms outpt monitor safety limited executive fx 03/07/2022 Patient depressed cognitively slowed question recent concussion. Check lower extremity Doppler change Rexulti to the evening in case sedating 03/08/2022 Results of vascular study reviewed with patient. She also relates a history of post concussive syndrome and balance difficulties Pt consult ordered Risperdal tapered will discontinue Rexulti changed to evenings -08/29 Patient seen in psychiatric follow-up case reviewed in treatment planning. Case also reviewed extensively with social work. Patient more open to change in discharge setting which have a lot to do with her frequent readmissions. Increase Rexulti. Risperdal monitor mood and safety consider ECT consider TMS but no clear practical way to get to the hospital on a regular basis (2) COPD (chronic obstructive pulmonary disease): Status: Acute Code(s): J44.9 - Chronic obstructive pulmonary disease, unspecified (3) Tobacco abuse: Status: Acute Code(s): Z72.0 - Tobacco use (4) Prediabetes: Status: Acute Code(s): R73.03 - Prediabetes (5) Hyperlipidemia: Status: Acute Code(s): E78.5 - Hyperlipidemia, unspecified Plan Elderly female with a long history of 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 Plan 1. Gather collateral information. 2. Continue with the same treatment. 3. Continue with medical treatment 03/01 continue current medications. 03/03: Continue current regimen and plans 03/04: Continue current plans and regimen I spent minutes with the patient and/or on the patient floor today, greater than?50% of which was spent counseling/coordinating care. Reason for contiued inpatient stay Substantial Risk for: harm to self, inability to function and rapid decompensation
[2022-03-09] MEDS: traZODone HCL 50 MG TABLET PO (23:23)
[2022-03-10 06:00] VITALS: BP 118/84; PULSE 60; RESP 17; TEMP 37.1; O2SAT 96
[2022-03-10] MEDS: Metoprolol Succinate ER 12.5 MG HALFTAB.ER.24H PO (09:06)
[2022-03-10] MEDS: FLUoxetine HCl 20 MG CAPSULE 40 MG PO (09:06)
--- NOTE | 2022-03-10 09:19 | HO.PSYCHPN ---
Subjective Subjective Date of Service: 03/10/22 Reason For Visit: Depression/ SI Subjective Notes: Nielsen Warning and Conditional Voluntary Interim History: I spoke with pt, she says her is going to have stay in detention, this will be an adjustment. She feels safe, says she feels better. She is considering assisted living, [facility]. She would like to go home but acknowledges im isolated where im at. Sleep is pretty good, but wakes up in the night, will add melatonin prn. Appetite is low, can only eat half a sandwich, feels she is getting enough nourishment. Has noticed SE of dry mouth, will continue to monitor. Medication Compliance: Yes Attending Groups: Yes Review of Systems Acute medical concerns: No Medical Review of Systems: unchanged Mental Status Exam Mental Status Exam Narrative: Patient Appearance: Well Grooomed Patient Orientation: Person, Place and Situation Level of Consciousness: Awake Patient Behavior: Cooperative Behavior Comments: slowed Mood Description: Withdrawn Affect Description: Depressed, Anxious and Nervous Patient Cognition Impaired: Yes Ability to Follow Directions: Good Speech Pattern: Clear Hallucinations: None Delusions: Not Present Depressive Symptoms: Increased Anxiety, Feelings of Worthlessness and Thoughts of /Suicide Diagnostics Vital Signs (24Hr): BMI result Body Mass Index 25.9 Labs Results: 02/26/22 21:15 02/26/22 21:15 Imaging Radiology Impressions: ITS Impressions Duplex Scan Lower Extremity Artery 03/07/22 19:45 IMPRESSION: 1 RIGHT SIDE: There are elevated velocities in the right common femoral artery consistent with hemodynamically significant stenosis. The stenosis could be within the right external iliac artery. 2. LEFT SIDE: There are monophasic waveforms and low velocities throughout the left lower extremity. This is suspicious for an aortoiliac inflow stenosis. 3. This could be evaluated with a CAT scan angiogram of the pelvis. Venous Duplex 03/07/22 19:45 IMPRESSION: No evidence for deep venous thrombosis in the visualized veins of the bilateral lower extremities. Medications Medications Current Medications Acetaminophen (Acetaminophen 325 Mg Tablet) 650 mg PO Q6H PRN PRN Reason: Headache/Pain Mild Scale (1-3) Last Admin: 03/06/22 20:24 Dose: 650 mg Al Hydroxide/Mg Hydroxide (Magnesium Hydrox/Alum Hydrox 30 Ml Oral.Susp) 30 ml PO Q6H PRN PRN Reason: Heartburn/Nausea Atorvastatin Calcium (Atorvastatin Calcium 40 Mg Tablet) 40 mg PO BEDTIME [facility] Last Admin: 03/09/22 21:21 Dose: 40 mg Brexpiprazole (Brexpiprazole 1 Mg Tablet) 1 mg PO DAILY@1700 [facility] Last Admin: 03/09/22 17:32 Dose: 1 mg Clonidine HCl (Clonidine Hcl 0.1 Mg Tablet) 0.1 mg PO BEDTIME [facility]; Protocol Last Admin: 03/09/22 21:21 Dose: 0.1 mg Fluoxetine HCl (Fluoxetine Hcl 20 Mg Capsule) 40 mg PO DAILY [facility] Last Admin: 03/10/22 09:06 Dose: 40 mg Hydroxyzine HCl (Hydroxyzine Hcl 25 Mg Tablet) 25 mg PO Q6H PRN PRN Reason: Anxiety Last Admin: 03/08/22 20:32 Dose: 25 mg Magnesium Hydroxide (Milk Of Magnesia 30 Ml Oral.Susp) 30 ml PO DAILY PRN PRN Reason: Constipation Metoprolol Succinate (Metoprolol Succinate Er 12.5 Mg Halftab.Er.24h) 12.5 mg PO DAILY [facility]; Protocol Last Admin: 03/10/22 09:06 Dose: 12.5 mg Mirtazapine (Mirtazapine 15 Mg Tablet) 15 mg PO BEDTIME [facility] Last Admin: 03/09/22 21:21 Dose: 15 mg Trazodone HCl (Trazodone Hcl 50 Mg Tablet) 50 mg PO BEDTIME PRN PRN Reason: Insomnia Last Admin: 03/09/22 23:23 Dose: 50 mg Allergies Allergies Allergy/AdvReac Type Severity Reaction Status Date / Time adhesive AdvReac Unknown Verified 04/21/21 23:21 aspirin AdvReac Unknown Verified 04/21/21 23:20 epinephrine AdvReac Unknown Verified 04/21/21 23:21 Assessment & Plan Assessment & Plan (1) MDD (major depressive disorder), recurrent episode, moderate: Status: Acute Code(s): F33.1 - Major depressive disorder, recurrent, moderate Assessment and Plan: Current note for 03/02/2022 Patient depressed withdrawn anxious and preoccupied. Recurrent admission much of it related to stress being from her who is in a snf facility 03/05/22 Pt depressed withdrawn c/o muscle discomfort x months will try cogentin 03/06/22 inc rexulti as tolerated ck LE flow sec to claudication ?tms outpt monitor safety limited executive fx 03/07/2022 Patient depressed cognitively slowed question recent concussion. Check lower extremity Doppler change Rexulti to the evening in case sedating 03/08/2022 Results of vascular study reviewed with patient. She also relates a history of post concussive syndrome and balance difficulties Pt consult ordered Risperdal tapered will discontinue Rexulti changed to evenings 03/10/2022 No medication changes (2) COPD (chronic obstructive pulmonary disease): Status: Acute Code(s): J44.9 - Chronic obstructive pulmonary disease, unspecified (3) Tobacco abuse: Status: Acute Code(s): Z72.0 - Tobacco use (4) Prediabetes: Status: Acute Code(s): R73.03 - Prediabetes (5) Hyperlipidemia: Status: Acute Code(s): E78.5 - Hyperlipidemia, unspecified Plan Elderly female with a long history of 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 Plan 1. Gather collateral information. 2. Continue with the same treatment. 3. Continue with medical treatment 03/01 continue current medications. 03/03: Continue current regimen and plans 03/04: Continue current plans and regimen I spent minutes with the patient and/or on the patient floor today, greater than?50% of which was spent counseling/coordinating care. Patient educated on: therapeutic strategies Reason for contiued inpatient stay Substantial Risk for: rapid decompensation and med/psych decompensation
[2022-03-10] MEDS: Brexpiprazole 1 MG TABLET PO (17:16)
[2022-03-10 21:05] VITALS: BP 126/62; PULSE 68; RESP 17; TEMP 36.1; O2SAT 95
[2022-03-10] MEDS: Melatonin 3 MG TABLET PO (21:20)
[2022-03-10] MEDS: Atorvastatin Calcium 40 MG TABLET PO (21:20)
[2022-03-10] MEDS: traZODone HCL 50 MG TABLET PO (21:20)
[2022-03-10] MEDS: cloNIDine HCL 0.1 MG TABLET PO (21:20)
[2022-03-10] MEDS: Mirtazapine 15 MG TABLET PO (21:20)
[2022-03-11 06:00] VITALS: BP 117/51; PULSE 61; RESP 17; TEMP 35.9; O2SAT 94
[2022-03-11] MEDS: Metoprolol Succinate ER 12.5 MG HALFTAB.ER.24H PO (08:15)
[2022-03-11] MEDS: FLUoxetine HCl 20 MG CAPSULE 40 MG PO (08:15)
--- NOTE | 2022-03-11 10:49 | P.PNPSI_ITS ---
Subjective Subjective Date of Service: 03/11/22 Reason For Visit: Depression/ SI Subjective Notes: Nielsen Warning and Conditional Voluntary Healthcare Proxy: No Guardianship: No Medical Problems Affecting Mental Status: No Interim History: I spoke with pt's team, she is pleasant, isolative at times but visible in milieu. I spoke with pt, she says she is anxious, making lists of where she wa nts to live and weighing benefits, slept well, energy is low, feels sedated, unsteady on my feet. Will continue to monitor and wait out potential SE on rexulti. Appetite is low, food doesnt appeal to me, eating a lot of sandwiches though and making sure she is eating enough. Has ensure ordered. Medication Compliance: Yes Attending Groups: Yes Review of Systems Acute medical concerns: No Medical Review of Systems: unchanged Mental Status Exam Mental Status Exam Narrative: Patient Appearance: Well Grooomed Patient Orientation: Person, Place and Situation Level of Consciousness: Awake Patient Behavior: Cooperative Behavior Comments: slowed Mood Description: Withdrawn Affect Description: Depressed, Anxious and Nervous Patient Cognition Impaired: Yes Ability to Follow Directions: Good Speech Pattern: Clear Hallucinations: None Delusions: Not Present Depressive Symptoms: Increased Anxiety, Feelings of Worthlessness and Thoughts of /Suicide Diagnostics Vital Signs (24Hr): Vital Signs - 24 hr 03/10/22 21:05 Temperature 96.9 F Pulse Rate 68 Respiratory Rate 17 Blood Pressure 126/62 Pulse Oximetry 95 Oxygen Delivery Method Room Air BMI result Body Mass Index 25.9 Labs Results: 02/26/22 21:15 02/26/22 21:15 Imaging Radiology Impressions: ITS Impressions Duplex Scan Lower Extremity Artery 03/07/22 19:45 IMPRESSION: 1 RIGHT SIDE: There are elevated velocities in the right common femoral artery consistent with hemodynamically significant stenosis. The stenosis could be within the right external iliac artery. 2. LEFT SIDE: There are monophasic waveforms and low velocities throughout the left lower extremity. This is suspicious for an aortoiliac inflow stenosis. 3. This could be evaluated with a CAT scan angiogram of the pelvis. Venous Duplex 03/07/22 19:45 IMPRESSION: No evidence for deep venous thrombosis in the visualized veins of the bilateral lower extremities. Medications Medications Current Medications Acetaminophen (Acetaminophen 325 Mg Tablet) 650 mg PO Q6H PRN PRN Reason: Headache/Pain Mild Scale (1-3) Last Admin: 03/06/22 20:24 Dose: 650 mg Al Hydroxide/Mg Hydroxide (Magnesium Hydrox/Alum Hydrox 30 Ml Oral.Susp) 30 ml PO Q6H PRN PRN Reason: Heartburn/Nausea Atorvastatin Calcium (Atorvastatin Calcium 40 Mg Tablet) 40 mg PO BEDTIME [facility] Last Admin: 03/10/22 21:20 Dose: 40 mg Brexpiprazole (Brexpiprazole 1 Mg Tablet) 1 mg PO DAILY@1700 [facility] Last Admin: 03/10/22 17:16 Dose: 1 mg Clonidine HCl (Clonidine Hcl 0.1 Mg Tablet) 0.1 mg PO BEDTIME [facility]; Protocol Last Admin: 03/10/22 21:20 Dose: 0.1 mg Fluoxetine HCl (Fluoxetine Hcl 20 Mg Capsule) 40 mg PO DAILY [facility] Last Admin: 03/11/22 08:15 Dose: 40 mg Hydroxyzine HCl (Hydroxyzine Hcl 25 Mg Tablet) 25 mg PO Q6H PRN PRN Reason: Anxiety Last Admin: 03/08/22 20:32 Dose: 25 mg Magnesium Hydroxide (Milk Of Magnesia 30 Ml Oral.Susp) 30 ml PO DAILY PRN PRN Reason: Constipation Melatonin (Melatonin 3 Mg Tablet) 3 mg PO BEDTIME PRN PRN Reason: insomnia Last Admin: 03/10/22 21:20 Dose: 3 mg Metoprolol Succinate (Metoprolol Succinate Er 12.5 Mg Halftab.Er.24h) 12.5 mg PO DAILY [facility]; Protocol Last Admin: 03/11/22 08:15 Dose: 12.5 mg Mirtazapine (Mirtazapine 15 Mg Tablet) 15 mg PO BEDTIME [facility] Last Admin: 03/10/22 21:20 Dose: 15 mg Trazodone HCl (Trazodone Hcl 50 Mg Tablet) 50 mg PO BEDTIME PRN PRN Reason: Insomnia Last Admin: 03/10/22 21:20 Dose: 50 mg Allergies Allergies Allergy/AdvReac Type Severity Reaction Status Date / Time adhesive AdvReac Unknown Verified 04/21/21 23:21 aspirin AdvReac Unknown Verified 04/21/21 23:20 epinephrine AdvReac Unknown Verified 04/21/21 23:21 Assessment & Plan Assessment & Plan (1) MDD (major depressive disorder), recurrent episode, moderate: Status: Acute Code(s): F33.1 - Major depressive disorder, recurrent, moderate Assessment and Plan: Current note for 03/02/2022 Patient depressed withdrawn anxious and preoccupied. Recurrent admission much of it related to stress being from her who is in a senior care facility 03/05/22 Pt depressed withdrawn c/o muscle discomfort x months will try cogentin 03/06/22 inc rexulti as tolerated ck LE flow sec to claudication ?tms outpt monitor safety limited executive fx 03/07/2022 Patient depressed cognitively slowed question recent concussion. Check lower extremity Doppler change Rexulti to the evening in case sedating 03/08/2022 Results of vascular study reviewed with patient. She also relates a history of post concussive syndrome and balance difficulties Pt consult ordered Risperdal tapered will discontinue Rexulti changed to evenings 03/10/2022 No changes except PRN melatonin 03/11/2022 No changes, monitor tolerability on rexulti (2) COPD (chronic obstructive pulmonary disease): Status: Acute Code(s): J44.9 - Chronic obstructive pulmonary disease, unspecified (3) Tobacco abuse: Status: Acute Code(s): Z72.0 - Tobacco use (4) Prediabetes: Status: Acute Code(s): R73.03 - Prediabetes (5) Hyperlipidemia: Status: Acute Code(s): E78.5 - Hyperlipidemia, unspecified Plan Elderly female with a long history of major depressive disorder recurrent episode severe without psychosis, admitted for exacerbation of depress ion in the context of psychosocial stressors, now with active suicidal ideation. Plan 1. Gather collateral information. 2. Continue with the same treatment. 3. Continue with medical treatment 03/01 continue current medications. 03/03: Continue current regimen and plans 03/04: Continue current plans and regimen I spent minutes with the patient and/or on the patient floor today, greater than?50% of which was spent counseling/coordinating care. Patient educated on: therapeutic strategies Reason for contiued inpatient stay Substantial Risk for: rapid decompensation and med/psych decompensation
[2022-03-11 18:00] VITALS: BP 116/71; PULSE 63; RESP 18; TEMP 35.8; O2SAT 95
[2022-03-11] MEDS: Atorvastatin Calcium 40 MG TABLET PO (20:26)
[2022-03-11] MEDS: cloNIDine HCL 0.1 MG TABLET PO (20:26)
[2022-03-11] MEDS: Mirtazapine 15 MG TABLET PO (20:26)
[2022-03-11] MEDS: traZODone HCL 50 MG TABLET PO (20:26)
[2022-03-12 06:00] VITALS: BP 132/67; PULSE 89; RESP 17; TEMP 36.1; O2SAT 95
[2022-03-12] MEDS: Metoprolol Succinate ER 12.5 MG HALFTAB.ER.24H PO (08:08)
[2022-03-12] MEDS: FLUoxetine HCl 20 MG CAPSULE 40 MG PO (08:08)
--- NOTE | 2022-03-12 14:14 | HO.PSYCHPN ---
Subjective Subjective Date of Service: 03/10/22 Reason For Visit: Depression/ SI Interim History: slept good until about 3 or 4 then I got up, went to bed early. spoke with her . medications help. where we're gonna be living, everything that is involved, moving is the worst. wants to go back home, i can see their point, i dont want to be in this position again and back to the hospital. interested in VNA. trying to digest that, [place] and [place], makes me anxious. Mental Status Exam Mental Status Exam Narrative: Patient Appearance: Well Grooomed Patient Orientation: Person, Place and Situation Level of Consciousness: Awake Patient Behavior: Cooperative Behavior Comments: slowed Mood Description: Withdrawn Affect Description: Depressed, Anxious and Nervous Patient Cognition Impaired: Yes Ability to Follow Directions: Good Speech Pattern: Clear Hallucinations: None Delusions: Not Present Depressive Symptoms: Increased Anxiety, Feelings of Worthlessness and Thoughts of /Suicide Diagnostics Vital Signs (24Hr): Vital Signs - 24 hr 03/11/22 18:00 03/12/22 06:00 Temperature 96.5 F L 97 F Pulse Rate 63 89 Respiratory Rate 18 17 Blood Pressure 116/71 132/67 Pulse Oximetry 95 95 Oxygen Delivery Method Room Air Room Air BMI result Body Mass Index 25.9 Labs Results: 02/26/22 21:15 02/26/22 21:15 Imaging Radiology Impressions: ITS Impressions Duplex Scan Lower Extremity Artery 03/07/22 19:45 IMPRESSION: 1 RIGHT SIDE: There are elevated velocities in the right common femoral artery consistent with hemodynamically significant stenosis. The stenosis could be within the right external iliac artery. 2. LEFT SIDE: There are monophasic waveforms and low velocities throughout the left lower extremity. This is suspicious for an aortoiliac inflow stenosis. 3. This could be evaluated with a CAT scan angiogram of the pelvis. Venous Duplex 03/07/22 19:45 IMPRESSION: No evidence for deep venous thrombosis in the visualized veins of the bilateral lower extremities. Medications Medications Current Medications Acetaminophen (Acetaminophen 325 Mg Tablet) 650 mg PO Q6H PRN PRN Reason: Headache/Pain Mild Scale (1-3) Last Admin: 03/06/22 20:24 Dose: 650 mg Al Hydroxide/Mg Hydroxide (Magnesium Hydrox/Alum Hydrox 30 Ml Oral.Susp) 30 ml PO Q6H PRN PRN Reason: Heartburn/Nausea Atorvastatin Calcium (Atorvastatin Calcium 40 Mg Tablet) 40 mg PO BEDTIME [facility] Last Admin: 03/11/22 20:26 Dose: 40 mg Brexpiprazole (Brexpiprazole 1 Mg Tablet) 1 mg PO DAILY@1700 [facility] Last Admin: 03/11/22 18:27 Dose: Not Given Clonidine HCl (Clonidine Hcl 0.1 Mg Tablet) 0.1 mg PO BEDTIME [facility]; Protocol Last Admin: 03/11/22 20:26 Dose: 0.1 mg Fluoxetine HCl (Fluoxetine Hcl 20 Mg Capsule) 40 mg PO DAILY [facility] Last Admin: 03/12/22 08:08 Dose: 40 mg Hydroxyzine HCl (Hydroxyzine Hcl 25 Mg Tablet) 25 mg PO Q6H PRN PRN Reason: Anxiety Last Admin: 03/08/22 20:32 Dose: 25 mg Magnesium Hydroxide (Milk Of Magnesia 30 Ml Oral.Susp) 30 ml PO DAILY PRN PRN Reason: Constipation Melatonin (Melatonin 3 Mg Tablet) 3 mg PO BEDTIME PRN PRN Reason: insomnia Last Admin: 03/10/22 21:20 Dose: 3 mg Metoprolol Succinate (Metoprolol Succinate Er 12.5 Mg Halftab.Er.24h) 12.5 mg PO DAILY [facility]; Protocol Last Admin: 03/12/22 08:08 Dose: 12.5 mg Mirtazapine (Mirtazapine 15 Mg Tablet) 15 mg PO BEDTIME [facility] Last Admin: 03/11/22 20:26 Dose: 15 mg Trazodone HCl (Trazodone Hcl 50 Mg Tablet) 50 mg PO BEDTIME PRN PRN Reason: Insomnia Last Admin: 03/11/22 20:26 Dose: 50 mg Allergies Allergies Allergy/AdvReac Type Severity Reaction Status Date / Time adhesive AdvReac Unknown Verified 04/21/21 23:21 aspirin AdvReac Unknown Verified 04/21/21 23:20 epinephrine AdvReac Unknown Verified 04/21/21 23:21 Assessment & Plan Assessment & Plan (1) MDD (major depressive disorder), recurrent episode, moderate: Status: Acute Code(s): F33.1 - Major depressive disorder, recurrent, moderate Assessment and Plan: Current note for 03/02/2022 Patient depressed withdrawn anxious and preoccupied. Recurrent admission much of it related to stress being from her who is in a group home facility 03/05/22 Pt depressed withdrawn c/o muscle discomfort x months will try cogentin 03/06/22 inc rexulti as tolerated ck LE flow sec to claudication ?tms outpt monitor safety limited executive fx 03/07/2022 Patient depressed cognitively slowed question recent concussion. Check lower extremity Doppler change Rexulti to the evening in case sedating 03/08/2022 Results of vascular study reviewed with patient. She also relates a history of post concussive syndrome and balance difficulties Pt consult ordered Risperdal tapered will discontinue Rexulti changed to evenings 03/10/2022 No changes to above plan other than add PRN melatonin (2) COPD (chronic obstructive pulmonary disease): Status: Acute Code(s): J44.9 - Chronic obstructive pulmonary disease, unspecified (3) Tobacco abuse: Status: Acute Code(s): Z72.0 - Tobacco use (4) Prediabetes: Status: Acute Code(s): R73.03 - Prediabetes (5) Hyperlipidemia: Status: Acute Code(s): E78.5 - Hyperlipidemia, unspecified Plan Elderly female with a long history of 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 Plan 1. Gather collateral information. 2. Continue with the same treatment. 3. Continue with medical treatment 03/01 continue current medications. 03/03: Continue current regimen and plans 03/04: Continue current plans and regimen I spent minutes with the patient and/or on the patient floor today, greater than?50% of which was spent counseling/coordinating care. Patient educated on: medication risk/benefits and therapeutic strategies Reason for contiued inpatient stay Substantial Risk for: med/psych decompensation
[2022-03-12] MEDS: Brexpiprazole 1 MG TABLET PO (14:43)
[2022-03-12] MEDS: hydrOXYzine HCL 25 MG TABLET PO (14:43)
[2022-03-12 19:37] VITALS: BP 174/74; PULSE 66; RESP 16; TEMP 36.6; O2SAT 95
[2022-03-12] MEDS: Atorvastatin Calcium 40 MG TABLET PO (19:38)
[2022-03-12] MEDS: Mirtazapine 15 MG TABLET PO (19:38)
[2022-03-12] MEDS: cloNIDine HCL 0.1 MG TABLET PO (19:38)
[2022-03-12] MEDS: traZODone HCL 50 MG TABLET PO (19:47)
[2022-03-13] MEDS: hydrOXYzine HCL 25 MG TABLET PO (03:13)
[2022-03-13 08:00] VITALS: BP 103/51; PULSE 62; RESP 16; TEMP 35.9; O2SAT 92
[2022-03-13] MEDS: FLUoxetine HCl 20 MG CAPSULE 40 MG PO (08:15)
[2022-03-13] MEDS: Metoprolol Succinate ER 12.5 MG HALFTAB.ER.24H PO (08:15)
--- NOTE | 2022-03-13 13:49 | P.PNPSI_ITS ---
Subjective Subjective Date of Service: 03/13/22 Reason For Visit: Depression/ SI Subjective Notes: Conditional Voluntary Interim History: The nursing staff reported that her affect was brighter after she spoke with her over the phone. She admitted that she has some anxiety she used p.r.n. medication. The drug abuse social worker reported the main concern and then most important were rear for discharge he is compliance. On interview the patient denies new symptoms she feels that she is feeling slightly better. Mental Status Exam Mental Status Exam Patient Appearance: Well Grooomed Patient Orientation: Person and Situation Level of Consciousness: Awake Patient Behavior: Appropriate and Cooperative Mood Description: Calm Affect Description: Anxious Patient Cognition Impaired: Yes Ability to Follow Directions: Good Speech Pattern: Clear Hallucinations: None Delusions: Not Present Thought Process: Linear Thought Content: positive for Circumstantial Judgement: Fair Diagnostics Vital Signs (24Hr): Vital Signs - 24 hr 03/12/22 19:37 03/13/22 08:00 Temperature 97.9 F 96.7 F L Pulse Rate 66 62 Respiratory Rate 16 16 Blood Pressure 174/74 H 103/51 L Pulse Oximetry 95 92 Oxygen Delivery Method Room Air Room Air BMI result Body Mass Index 25.9 Labs Results: 02/26/22 21:15 02/26/22 21:15 Imaging Radiology Impressions: ITS Impressions Duplex Scan Lower Extremity Artery 03/07/22 19:45 IMPRESSION: 1 RIGHT SIDE: There are elevated velocities in the right common femoral artery consistent with hemodynamically significant stenosis. The stenosis could be within the right external iliac artery. 2. LEFT SIDE: There are monophasic waveforms and low velocities throughout the left lower extremity. This is suspicious for an aortoiliac inflow stenosis. 3. This could be evaluated with a CAT scan angiogram of the pelvis. Venous Duplex 03/07/22 19:45 IMPRESSION: No evidence for deep venous thrombosis in the visualized veins of the bilateral lower extremities. Medications Medications Current Medications Acetaminophen (Acetaminophen 325 Mg Tablet) 650 mg PO Q6H PRN PRN Reason: Headache/Pain Mild Scale (1-3) Last Admin: 03/06/22 20:24 Dose: 650 mg Al Hydroxide/Mg Hydroxide (Magnesium Hydrox/Alum Hydrox 30 Ml Oral.Susp) 30 ml PO Q6H PRN PRN Reason: Heartburn/Nausea Atorvastatin Calcium (Atorvastatin Calcium 40 Mg Tablet) 40 mg PO BEDTIME [facility] Last Admin: 03/12/22 19:38 Dose: 40 mg Brexpiprazole (Brexpiprazole 1 Mg Tablet) 1 mg PO DAILY@1700 [facility] Last Admin: 03/12/22 14:43 Dose: 1 mg Clonidine HCl (Clonidine Hcl 0.1 Mg Tablet) 0.1 mg PO BEDTIME [facility]; Protocol Last Admin: 03/12/22 19:38 Dose: 0.1 mg Fluoxetine HCl (Fluoxetine Hcl 20 Mg Capsule) 40 mg PO DAILY [facility] Last Admin: 03/13/22 08:15 Dose: 40 mg Hydroxyzine HCl (Hydroxyzine Hcl 25 Mg Tablet) 25 mg PO Q6H PRN PRN Reason: Anxiety Last Admin: 03/13/22 03:13 Dose: 25 mg Magnesium Hydroxide (Milk Of Magnesia 30 Ml Oral.Susp) 30 ml PO DAILY PRN PRN Reason: Constipation Melatonin (Melatonin 3 Mg Tablet) 3 mg PO BEDTIME PRN PRN Reason: insomnia Last Admin: 03/10/22 21:20 Dose: 3 mg Metoprolol Succinate (Metoprolol Succinate Er 12.5 Mg Halftab.Er.24h) 12.5 mg PO DAILY [facility]; Protocol Last Admin: 03/13/22 08:15 Dose: 12.5 mg Mirtazapine (Mirtazapine 15 Mg Tablet) 15 mg PO BEDTIME [facility] Last Admin: 03/12/22 19:38 Dose: 15 mg Trazodone HCl (Trazodone Hcl 50 Mg Tablet) 50 mg PO BEDTIME PRN PRN Reason: Insomnia Last Admin: 03/12/22 19:47 Dose: 50 mg Allergies Allergies Allergy/AdvReac Type Severity Reaction Status Date / Time adhesive AdvReac Unknown Verified 04/21/21 23:21 aspirin AdvReac Unknown Verified 04/21/21 23:20 epinephrine AdvReac Unknown Verified 04/21/21 23:21 Assessment & Plan Assessment & Plan (1) MDD (major depressive disorder), recurrent episode, moderate: Status: Acute Code(s): F33.1 - Major depressive disorder, recurrent, moderate Assessment and Plan: Current note for 03/02/2022 Patient depressed withdrawn anxious and preoccupied. Recurrent admission much of it related to stress being from her who is in a senior living facility 03/05/22 Pt depressed withdrawn c/o muscle discomfort x months will try cogentin 03/06/22 inc rexulti as tolerated ck LE flow sec to claudication ?tms outpt monitor safety limited executive fx 03/07/2022 Patient depressed cognitively slowed question recent concussion. Check lower extremity Doppler change Rexulti to the evening in case sedating 03/08/2022 Results of vascular study reviewed with patient. She also relates a history of post concussive syndrome and balance difficulties Pt consult ordered Risperdal tapered will discontinue Rexulti changed to evenings 03/10/2022 No changes except PRN melatonin 03/11/2022 No changes, monitor tolerability on rexulti (2) COPD (chronic obstructive pulmonary disease): Status: Acute Code(s): J44.9 - Chronic obstructive pulmonary disease, unspecified (3) Tobacco abuse: Status: Acute Code(s): Z72.0 - Tobacco use (4) Prediabetes: Status: Acute Code(s): R73.03 - Prediabetes (5) Hyperlipidemia: Status: Acute Code(s): E78.5 - Hyperlipidemia, unspecified Plan Elderly female with a long history of 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 Plan 1. Gather collateral information. 2. Continue with the same treatment. 3. Continue with the same treatment now with the addition of Rexulti I spent ___20___ minutes with the patient and/or on the patient floor today, greater than?50% of which was spent counseling/coordinating care. Reason for contiued inpatient stay Substantial Risk for: harm to self, inability to function, rapid decompensation and med/psych decompensation
[2022-03-13] MEDS: Brexpiprazole 1 MG TABLET PO (16:47)
[2022-03-13 18:00] VITALS: BP 151/66; PULSE 58; RESP 18; TEMP 36.3; O2SAT 96
[2022-03-13] MEDS: Mirtazapine 15 MG TABLET PO (20:00)
[2022-03-13] MEDS: Melatonin 3 MG TABLET PO (20:00)
[2022-03-13] MEDS: Atorvastatin Calcium 40 MG TABLET PO (20:00)
[2022-03-13] MEDS: traZODone HCL 50 MG TABLET PO (20:01)
[2022-03-13] MEDS: cloNIDine HCL 0.1 MG TABLET PO (20:02)
[2022-03-14 07:30] VITALS: BP 120/65; PULSE 67; RESP 17; TEMP 36.2; O2SAT 93
[2022-03-14] MEDS: Metoprolol Succinate ER 12.5 MG HALFTAB.ER.24H PO (07:50)
[2022-03-14] MEDS: FLUoxetine HCl 20 MG CAPSULE 40 MG PO (07:51)
--- NOTE | 2022-03-14 15:01 | P.PNPSI_ITS ---
Subjective Subjective Date of Service: 03/14/22 Reason For Visit: Depression/ SI Subjective Notes: Conditional Voluntary Interim History: The nursing staff reported the patient has been fully compliant with treatment. She stated that she is worried about discharge for next week. On interview the patient denies side effects she is pleasant and cooperative slightly dysphoric. Mental Status Exam Mental Status Exam Patient Appearance: Well Grooomed Patient Orientation: Person and Situation Level of Consciousness: Awake Patient Behavior: Cooperative Mood Description: Constricted Affect Description: Withdrawn Patient Cognition Impaired: Yes Ability to Follow Directions: Good Speech Pattern: Clear Hallucinations: None Delusions: Not Present Thought Process: Distracted Thought Content: positive for Elroy and positive for Circumstantial Judgement: Fair Diagnostics Vital Signs (24Hr): Vital Signs - 24 hr 03/13/22 18:00 03/14/22 07:30 Temperature 97.4 F 97.1 F Pulse Rate 58 67 Respiratory Rate 18 17 Blood Pressure 151/66 H 120/65 Pulse Oximetry 96 93 Oxygen Delivery Method Room Air Room Air BMI result Body Mass Index 25.9 Labs Results: 02/26/22 21:15 02/26/22 21:15 Imaging Radiology Impressions: ITS Impressions Duplex Scan Lower Extremity Artery 03/07/22 19:45 IMPRESSION: 1 RIGHT SIDE: There are elevated velocities in the right common femoral artery consistent with hemodynamically significant stenosis. The stenosis could be within the right external iliac artery. 2. LEFT SIDE: There are monophasic waveforms and low velocities throughout the left lower extremity. This is suspicious for an aortoiliac inflow stenosis. 3. This could be evaluated with a CAT scan angiogram of the pelvis. Venous Duplex 03/07/22 19:45 IMPRESSION: No evidence for deep venous thrombosis in the visualized veins of the bilateral lower extremities. Medications Medications Current Medications Acetaminophen (Acetaminophen 325 Mg Tablet) 650 mg PO Q6H PRN PRN Reason: Headache/Pain Mild Scale (1-3) Last Admin: 03/06/22 20:24 Dose: 650 mg Al Hydroxide/Mg Hydroxide (Magnesium Hydrox/Alum Hydrox 30 Ml Oral.Susp) 30 ml PO Q6H PRN PRN Reason: Heartburn/Nausea Atorvastatin Calcium (Atorvastatin Calcium 40 Mg Tablet) 40 mg PO BEDTIME [facility] Last Admin: 03/13/22 20:00 Dose: 40 mg Brexpiprazole (Brexpiprazole 1 Mg Tablet) 1 mg PO DAILY@1700 [facility] Last Admin: 03/13/22 16:47 Dose: 1 mg Clonidine HCl (Clonidine Hcl 0.1 Mg Tablet) 0.1 mg PO BEDTIME [facility]; Protocol Last Admin: 03/13/22 20:02 Dose: 0.1 mg Fluoxetine HCl (Fluoxetine Hcl 20 Mg Capsule) 40 mg PO DAILY [facility] Last Admin: 03/14/22 07:51 Dose: 40 mg Hydroxyzine HCl (Hydroxyzine Hcl 25 Mg Tablet) 25 mg PO Q6H PRN PRN Reason: Anxiety Last Admin: 03/13/22 03:13 Dose: 25 mg Magnesium Hydroxide (Milk Of Magnesia 30 Ml Oral.Susp) 30 ml PO DAILY PRN PRN Reason: Constipation Melatonin (Melatonin 3 Mg Tablet) 3 mg PO BEDTIME PRN PRN Reason: insomnia Last Admin: 03/13/22 20:00 Dose: 3 mg Metoprolol Succinate (Metoprolol Succinate Er 12.5 Mg Halftab.Er.24h) 12.5 mg PO DAILY [facility]; Protocol Last Admin: 03/14/22 07:50 Dose: 12.5 mg Mirtazapine (Mirtazapine 15 Mg Tablet) 15 mg PO BEDTIME [facility] Last Admin: 03/13/22 20:00 Dose: 15 mg Trazodone HCl (Trazodone Hcl 50 Mg Tablet) 50 mg PO BEDTIME PRN PRN Reason: Insomnia Last Admin: 03/13/22 20:01 Dose: 50 mg Allergies Allergies Allergy/AdvReac Type Severity Reaction Status Date / Time adhesive AdvReac Unknown Verified 04/21/21 23:21 aspirin AdvReac Unknown Verified 04/21/21 23:20 epinephrine AdvReac Unknown Verified 04/21/21 23:21 Assessment & Plan Assessment & Plan (1) MDD (major depressive disorder), recurrent episode, moderate: Status: Acute Code(s): F33.1 - Major depressive disorder, recurrent, moderate Assessment and Plan: Current note for 03/02/2022 Patient depressed withdrawn anxious and preoccupied. Recurrent admission much of it related to stress being from her who is in a assisted facility 03/05/22 Pt depressed withdrawn c/o muscle discomfort x months will try cogentin 03/06/22 inc rexulti as tolerated ck LE flow sec to claudication ?tms outpt monitor safety limited executive fx 03/07/2022 Patient depressed cognitively slowed question recent concussion. Check lower extremity Doppler change Rexulti to the evening in case sedating 03/08/2022 Results of vascular study reviewed with patient. She also relates a history of post concussive syndrome and balance difficulties Pt consult ordered Risperdal tapered will discontinue Rexulti changed to evenings 03/10/2022 No changes except PRN melatonin 03/11/2022 No changes, monitor tolerability on rexulti (2) COPD (chronic obstructive pulmonary disease): Status: Acute Code(s): J44.9 - Chronic obstructive pulmonary disease, unspecified (3) Tobacco abuse: Status: Acute Code(s): Z72.0 - Tobacco use (4) Prediabetes: Status: Acute Code(s): R73.03 - Prediabetes (5) Hyperlipidemia: Status: Acute Code(s): E78.5 - Hyperlipidemia, unspecified Plan Elderly female with a long history of 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 Plan 1. Gather collateral information. 2. Continue with the same treatment. 3. Continue with the same treatment now with the addition of Rexulti I spent ___20___ minutes with the patient and/or on the patient floor today, greater than?50% of which was spent counseling/coordinating care. Reason for contiued inpatient stay Substantial Risk for: inability to function, rapid decompensation and med/psych decompensation
[2022-03-14] MEDS: Brexpiprazole 1 MG TABLET PO (16:48)
[2022-03-14] MEDS: Mirtazapine 15 MG TABLET PO (19:52)
[2022-03-14] MEDS: cloNIDine HCL 0.1 MG TABLET PO (19:52)
[2022-03-14] MEDS: Atorvastatin Calcium 40 MG TABLET PO (19:52)
[2022-03-14] MEDS: traZODone HCL 50 MG TABLET PO (19:53)
[2022-03-14 19:54] VITALS: BP 134/72; PULSE 64; RESP 16; TEMP 36.6; O2SAT 94
[2022-03-15 06:00] VITALS: BP 118/57; PULSE 70; RESP 17; TEMP 36.6; O2SAT 94
[2022-03-15] MEDS: Acetaminophen 325 MG TABLET 650 MG PO (06:15)
[2022-03-15 07:00] VITALS: BMI 25.5
[2022-03-15] MEDS: Metoprolol Succinate ER 12.5 MG HALFTAB.ER.24H PO (09:24)
[2022-03-15] MEDS: FLUoxetine HCl 20 MG CAPSULE 40 MG PO (09:24)
--- NOTE | 2022-03-15 13:10 | P.PNPSI_ITS ---
Subjective Subjective Date of Service: 03/15/22 Reason For Visit: Depression/ SI Subjective Notes: Conditional Voluntary Interim History: The nursing staff reported the patient has been sleeping very well, she has been anxious but able to cope with that. She has attended several groups. On interview the patient denies new symptoms she feels slightly better. Mental Status Exam Mental Status Exam Patient Appearance: Well Grooomed Patient Orientation: Person, Place and Situation Level of Consciousness: Awake and Appropriate Patient Behavior: Cooperative Mood Description: Constricted Affect Description: Calm Patient Cognition Impaired: Yes Ability to Follow Directions: Good Speech Pattern: Clear Hallucinations: None Delusions: Not Present Thought Process: Distracted and Linear Thought Content: positive for Intact Judgement: Fair Diagnostics Vital Signs (24Hr): Vital Signs - 24 hr 03/14/22 19:54 03/15/22 06:00 Temperature 97.8 F 97.8 F Pulse Rate 64 70 Respiratory Rate 16 17 Blood Pressure 134/72 118/57 L Pulse Oximetry 94 94 Oxygen Delivery Method Room Air Room Air BMI result Body Mass Index 25.9 Labs Results: 02/26/22 21:15 02/26/22 21:15 Imaging Radiology Impressions: ITS Impressions Duplex Scan Lower Extremity Artery 03/07/22 19:45 IMPRESSION: 1 RIGHT SIDE: There are elevated velocities in the right common femoral artery consistent with hemodynamically significant stenosis. The stenosis could be within the right external iliac artery. 2. LEFT SIDE: There are monophasic waveforms and low velocities throughout the left lower extremity. This is suspicious for an aortoiliac inflow stenosis. 3. This could be evaluated with a CAT scan angiogram of the pelvis. Venous Duplex 03/07/22 19:45 IMPRESSION: No evidence for deep venous thrombosis in the visualized veins of the bilateral lower extremities. Medications Medications Current Medications Acetaminophen (Acetaminophen 325 Mg Tablet) 650 mg PO Q6H PRN PRN Reason: Headache/Pain Mild Scale (1-3) Last Admin: 03/15/22 06:15 Dose: 650 mg Al Hydroxide/Mg Hydroxide (Magnesium Hydrox/Alum Hydrox 30 Ml Oral.Susp) 30 ml PO Q6H PRN PRN Reason: Heartburn/Nausea Atorvastatin Calcium (Atorvastatin Calcium 40 Mg Tablet) 40 mg PO BEDTIME [facility] Last Admin: 03/14/22 19:52 Dose: 40 mg Brexpiprazole (Brexpiprazole 1 Mg Tablet) 1 mg PO DAILY@1700 [facility] Last Admin: 03/14/22 16:48 Dose: 1 mg Clonidine HCl (Clonidine Hcl 0.1 Mg Tablet) 0.1 mg PO BEDTIME [facility]; Protocol Last Admin: 03/14/22 19:52 Dose: 0.1 mg Fluoxetine HCl (Fluoxetine Hcl 20 Mg Capsule) 40 mg PO DAILY [facility] Last Admin: 03/15/22 09:24 Dose: 40 mg Hydroxyzine HCl (Hydroxyzine Hcl 25 Mg Tablet) 25 mg PO Q6H PRN PRN Reason: Anxiety Last Admin: 03/13/22 03:13 Dose: 25 mg Magnesium Hydroxide (Milk Of Magnesia 30 Ml Oral.Susp) 30 ml PO DAILY PRN PRN Reason: Constipation Melatonin (Melatonin 3 Mg Tablet) 3 mg PO BEDTIME PRN PRN Reason: insomnia Last Admin: 03/13/22 20:00 Dose: 3 mg Metoprolol Succinate (Metoprolol Succinate Er 12.5 Mg Halftab.Er.24h) 12.5 mg PO DAILY [facility]; Protocol Last Admin: 03/15/22 09:24 Dose: 12.5 mg Mirtazapine (Mirtazapine 15 Mg Tablet) 15 mg PO BEDTIME [facility] Last Admin: 03/14/22 19:52 Dose: 15 mg Trazodone HCl (Trazodone Hcl 50 Mg Tablet) 50 mg PO BEDTIME PRN PRN Reason: Insomnia Last Admin: 03/14/22 19:53 Dose: 50 mg Allergies Allergies Allergy/AdvReac Type Severity Reaction Status Date / Time adhesive AdvReac Unknown Verified 04/21/21 23:21 aspirin AdvReac Unknown Verified 04/21/21 23:20 epinephrine AdvReac Unknown Verified 04/21/21 23:21 Assessment & Plan Assessment & Plan (1) MDD (major depressive disorder), recurrent episode, moderate: Status: Acute Code(s): F33.1 - Major depressive disorder, recurrent, moderate Assessment and Plan: The patient is a 76-year-old female, , admitted into the facility for major depressive disorder with suicidal ideation. The patient has been admitted into the hospital several times mostly due to suicidality no clear correlation with psychosocial stressors. Plan 1. Continue with the same treatment. 2. Start discharge planning for early next week (2) COPD (chronic obstructive pulmonary disease): Status: Acute Code(s): J44.9 - Chronic obstructive pulmonary disease, unspecified (3) Tobacco abuse: Status: Acute Code(s): Z72.0 - Tobacco use (4) Prediabetes: Status: Acute Code(s): R73.03 - Prediabetes (5) Hyperlipidemia: Status: Acute Code(s): E78.5 - Hyperlipidemia, unspecified Plan Elderly female with a long history of 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 Plan 1. Gather collateral information. 2. Continue with the same treatment. 3. Continue with the same treatment now with the addition of Rexulti I spent _20 minutes with the patient and/or on the patient floor today, greater than?50% of which was spent counseling/coordinating care. Reason for contiued inpatient stay Substantial Risk for: inability to function, rapid decompensation and med/psych decompensation
[2022-03-15] MEDS: Brexpiprazole 1 MG TABLET PO (17:07)
[2022-03-15] MEDS: hydrOXYzine HCL 25 MG TABLET PO (17:09)
[2022-03-15 18:00] VITALS: BP 178/81; PULSE 61; RESP 16; TEMP 36.8; O2SAT 94
[2022-03-15] MEDS: Atorvastatin Calcium 40 MG TABLET PO (20:29)
[2022-03-15] MEDS: Mirtazapine 15 MG TABLET PO (20:29)
[2022-03-15] MEDS: cloNIDine HCL 0.1 MG TABLET PO (20:29)
[2022-03-15] MEDS: traZODone HCL 50 MG TABLET PO (21:25)
[2022-03-15] MEDS: Melatonin 3 MG TABLET PO (21:25)
[2022-03-16 06:00] VITALS: BP 102/55; PULSE 60; RESP 17; TEMP 36.5; O2SAT 95
[2022-03-16] MEDS: FLUoxetine HCl 20 MG CAPSULE 40 MG PO (08:30)
[2022-03-16] MEDS: Metoprolol Succinate ER 12.5 MG HALFTAB.ER.24H PO (08:30)
--- NOTE | 2022-03-16 10:33 | P.PNPSI_ITS ---
Subjective Subjective Date of Service: 03/16/22 Reason For Visit: Depression/ SI Subjective Notes: Conditional Voluntary Interim History: The nursing staff reported that the patient was anxious yesterday and she reported 04/16. Apparently her was being moved to a different facility due to his medical problems. The patient needed p.r.n. and slept well last night. On interview the patient reports that she is feeling anxious but safe in the facility. Mental Status Exam Mental Status Exam Patient Appearance: Well Grooomed Patient Orientation: Person and Situation Level of Consciousness: Awake Patient Behavior: Cooperative Mood Description: Calm Affect Description: Constricted Patient Cognition Impaired: Yes Ability to Follow Directions: Good Speech Pattern: Clear Hallucinations: None Delusions: Not Present Thought Process: Linear Thought Content: positive for [place], positive for Obsessional Thoughts and positive for Circumstantial Judgement: Fair Diagnostics Vital Signs (24Hr): Vital Signs - 24 hr 03/15/22 18:00 Temperature 98.3 F Pulse Rate 61 Respiratory Rate 16 Blood Pressure 178/81 H Pulse Oximetry 94 Oxygen Delivery Method Room Air BMI result Body Mass Index 25.5 Labs Results: 02/26/22 21:15 02/26/22 21:15 Imaging Radiology Impressions: ITS Impressions Duplex Scan Lower Extremity Artery 03/07/22 19:45 IMPRESSION: 1 RIGHT SIDE: There are elevated velocities in the right common femoral artery consistent with hemodynamically significant stenosis. The stenosis could be within the right external iliac artery. 2. LEFT SIDE: There are monophasic waveforms and low velocities throughout the left lower extremity. This is suspicious for an aortoiliac inflow stenosis. 3. This could be evaluated with a CAT scan angiogram of the pelvis. Venous Duplex 03/07/22 19:45 IMPRESSION: No evidence for deep venous thrombosis in the visualized veins of the bilateral lower extremities. Medications Medications Current Medications Acetaminophen (Acetaminophen 325 Mg Tablet) 650 mg PO Q6H PRN PRN Reason: Headache/Pain Mild Scale (1-3) Last Admin: 03/15/22 06:15 Dose: 650 mg Al Hydroxide/Mg Hydroxide (Magnesium Hydrox/Alum Hydrox 30 Ml Oral.Susp) 30 ml PO Q6H PRN PRN Reason: Heartburn/Nausea Atorvastatin Calcium (Atorvastatin Calcium 40 Mg Tablet) 40 mg PO BEDTIME [facility] Last Admin: 03/15/22 20:29 Dose: 40 mg Brexpiprazole (Brexpiprazole 1 Mg Tablet) 1 mg PO DAILY@1700 [facility] Last Admin: 03/15/22 17:07 Dose: 1 mg Clonidine HCl (Clonidine Hcl 0.1 Mg Tablet) 0.1 mg PO BEDTIME [facility]; Protocol Last Admin: 03/15/22 20:29 Dose: 0.1 mg Fluoxetine HCl (Fluoxetine Hcl 20 Mg Capsule) 40 mg PO DAILY [facility] Last Admin: 03/16/22 08:30 Dose: 40 mg Hydroxyzine HCl (Hydroxyzine Hcl 25 Mg Tablet) 25 mg PO Q6H PRN PRN Reason: Anxiety Last Admin: 03/15/22 17:09 Dose: 25 mg Magnesium Hydroxide (Milk Of Magnesia 30 Ml Oral.Susp) 30 ml PO DAILY PRN PRN Reason: Constipation Melatonin (Melatonin 3 Mg Tablet) 3 mg PO BEDTIME PRN PRN Reason: insomnia Last Admin: 03/15/22 21:25 Dose: 3 mg Metoprolol Succinate (Metoprolol Succinate Er 12.5 Mg Halftab.Er.24h) 12.5 mg PO DAILY [facility]; Protocol Last Admin: 03/16/22 08:30 Dose: 12.5 mg Mirtazapine (Mirtazapine 15 Mg Tablet) 15 mg PO BEDTIME [facility] Last Admin: 03/15/22 20:29 Dose: 15 mg Trazodone HCl (Trazodone Hcl 50 Mg Tablet) 50 mg PO BEDTIME PRN PRN Reason: Insomnia Last Admin: 03/15/22 21:25 Dose: 50 mg Allergies Allergies Allergy/AdvReac Type Severity Reaction Status Date / Time adhesive AdvReac Unknown Verified 04/21/21 23:21 aspirin AdvReac Unknown Verified 04/21/21 23:20 epinephrine AdvReac Unknown Verified 04/21/21 23:21 Assessment & Plan Assessment & Plan (1) MDD (major depressive disorder), recurrent episode, moderate: Status: Acute Code(s): F33.1 - Major depressive disorder, recurrent, moderate Assessment and Plan: The patient is a 76-year-old female, , admitted into the facility for major depressive disorder with suicidal ideation. The patient has been admitted into the hospital several times mostly due to suicidality no clear correlation with psychosocial stressors. Plan 1. Continue with the same treatment. 2. Start discharge planning for early next week (2) COPD (chronic obstructive pulmonary disease): Status: Acute Code(s): J44.9 - Chronic obstructive pulmonary disease, unspecified (3) Tobacco abuse: Status: Acute Code(s): Z72.0 - Tobacco use (4) Prediabetes: Status: Acute Code(s): R73.03 - Prediabetes (5) Hyperlipidemia: Status: Acute Code(s): E78.5 - Hyperlipidemia, unspecified Plan Elderly female with a long history of 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 Plan 1. Gather collateral information. 2. Continue with the same treatment. 3. Continue with the same treatment now with the addition of Rexulti I spent ___20___ minutes with the patient and/or on the patient floor today, greater than?50% of which was spent counseling/coordinating care. Reason for contiued inpatient stay Substantial Risk for: inability to function, rapid decompensation and med/psych decompensation
[2022-03-16] MEDS: Brexpiprazole 1 MG TABLET PO (17:12)
[2022-03-16 20:10] VITALS: BP 133/63; PULSE 96; RESP 16; TEMP 36.6; O2SAT 91
[2022-03-16] MEDS: Mirtazapine 15 MG TABLET PO (20:10)
[2022-03-16] MEDS: Atorvastatin Calcium 40 MG TABLET PO (20:11)
[2022-03-16] MEDS: cloNIDine HCL 0.1 MG TABLET PO (20:11)
[2022-03-16] MEDS: traZODone HCL 50 MG TABLET PO (20:11)
[2022-03-16 22:47] VITALS: BP 133/63; PULSE 91; RESP 16; O2SAT 96
[2022-03-17 08:00] VITALS: BP 119/58; PULSE 64; RESP 14; TEMP 36.6; O2SAT 93
[2022-03-17] MEDS: FLUoxetine HCl 20 MG CAPSULE 40 MG PO (08:16)
[2022-03-17] MEDS: Metoprolol Succinate ER 12.5 MG HALFTAB.ER.24H PO (08:16)
--- NOTE | 2022-03-17 12:00 | P.PNPSI_ITS ---
Subjective Subjective Date of Service: 03/17/22 Reason For Visit: Depression/ SI Subjective Notes: Conditional Voluntary Interim History: The patient school strict anxious ruminating appropriately concerned about her who she is realizing is terminally ill and not able to come home. She has concerns about her own ability to function alone and fearful of self-harming behaviors she were to return home. Seems more accepting different living situation. Medication Compliance: Yes Mental Status Exam Mental Status Exam Patient Appearance: Well Grooomed Patient Orientation: Person and Situation Level of Consciousness: Awake Patient Behavior: Cooperative Mood Description: Calm and Depressed Affect Description: Constricted and Apprehensive Patient Cognition Impaired: Yes Ability to Follow Directions: Good Speech Pattern: Clear Hallucinations: None Delusions: Not Present Thought Process: Linear Thought Content: positive for [place], positive for Obsessional Thoughts and positive for Circumstantial Judgement: Fair Diagnostics Vital Signs (24Hr): Vital Signs - 24 hr 03/16/22 20:10 03/16/22 22:47 Temperature 97.9 F Pulse Rate 96 91 Respiratory Rate 16 16 Blood Pressure 133/63 133/63 Pulse Oximetry 91 L 96 Oxygen Delivery Method Room Air Room Air BMI result Body Mass Index 25.5 Labs Results: 02/26/22 21:15 02/26/22 21:15 Imaging Radiology Impressions: ITS Impressions Duplex Scan Lower Extremity Artery 03/07/22 19:45 IMPRESSION: 1 RIGHT SIDE: There are elevated velocities in the right common femoral artery consistent with hemodynamically significant stenosis. The stenosis could be within the right external iliac artery. 2. LEFT SIDE: There are monophasic waveforms and low velocities throughout the left lower extremity. This is suspicious for an aortoiliac inflow stenosis. 3. This could be evaluated with a CAT scan angiogram of the pelvis. Venous Duplex 03/07/22 19:45 IMPRESSION: No evidence for deep venous thrombosis in the visualized veins of the bilateral lower extremities. Medications Medications Current Medications Acetaminophen (Acetaminophen 325 Mg Tablet) 650 mg PO Q6H PRN PRN Reason: Headache/Pain Mild Scale (1-3) Last Admin: 03/15/22 06:15 Dose: 650 mg Al Hydroxide/Mg Hydroxide (Magnesium Hydrox/Alum Hydrox 30 Ml Oral.Susp) 30 ml PO Q6H PRN PRN Reason: Heartburn/Nausea Atorvastatin Calcium (Atorvastatin Calcium 40 Mg Tablet) 40 mg PO BEDTIME [facility] Last Admin: 03/16/22 20:11 Dose: 40 mg Brexpiprazole (Brexpiprazole 1 Mg Tablet) 1 mg PO DAILY@1700 [facility] Last Admin: 03/16/22 17:12 Dose: 1 mg Clonidine HCl (Clonidine Hcl 0.1 Mg Tablet) 0.1 mg PO BEDTIME [facility]; Protocol Last Admin: 03/16/22 20:11 Dose: 0.1 mg Fluoxetine HCl (Fluoxetine Hcl 20 Mg Capsule) 40 mg PO DAILY [facility] Last Admin: 03/17/22 08:16 Dose: 40 mg Hydroxyzine HCl (Hydroxyzine Hcl 25 Mg Tablet) 25 mg PO Q6H PRN PRN Reason: Anxiety Last Admin: 03/15/22 17:09 Dose: 25 mg Magnesium Hydroxide (Milk Of Magnesia 30 Ml Oral.Susp) 30 ml PO DAILY PRN PRN Reason: Constipation Melatonin (Melatonin 3 Mg Tablet) 3 mg PO BEDTIME PRN PRN Reason: insomnia Last Admin: 03/15/22 21:25 Dose: 3 mg Metoprolol Succinate (Metoprolol Succinate Er 12.5 Mg Halftab.Er.24h) 12.5 mg PO DAILY [facility]; Protocol Last Admin: 03/17/22 08:16 Dose: 12.5 mg Mirtazapine (Mirtazapine 15 Mg Tablet) 15 mg PO BEDTIME [facility] Last Admin: 03/16/22 20:10 Dose: 15 mg Trazodone HCl (Trazodone Hcl 50 Mg Tablet) 50 mg PO BEDTIME PRN PRN Reason: Insomnia Last Admin: 03/16/22 20:11 Dose: 50 mg Allergies Allergies Allergy/AdvReac Type Severity Reaction Status Date / Time adhesive AdvReac Unknown Verified 04/21/21 23:21 aspirin AdvReac Unknown Verified 04/21/21 23:20 epinephrine AdvReac Unknown Verified 04/21/21 23:21 Assessment & Plan Assessment & Plan (1) MDD (major depressive disorder), recurrent episode, moderate: Status: Acute Code(s): F33.1 - Major depressive disorder, recurrent, moderate Assessment and Plan: The patient is a 76-year-old female, , admitted into the facility for major depressive disorder with suicidal ideation. The patient has been admitted into the hospital several times mostly due to suicidality no clear correlation with psychosocial stressors. Plan 1. Continue with the same treatment. 2. Start discharge planning for early next week 03/17/2022 . Fluoxetine increase mirtazapine 30 mg at bedtime increase Rexulti 1.5 mg. Patient more insightful realize is her home situation not structured fearful of isolation fearful of self-harming behavior if she were to return home alone more open to it alternative discharge plans patient courage to speak with her daughter's (2) COPD (chronic obstructive pulmonary disease): Status: Acute Code(s): J44.9 - Chronic obstructive pulmonary disease, unspecified (3) Tobacco abuse: Status: Acute Code(s): Z72.0 - Tobacco use (4) Prediabetes: Status: Acute Code(s): R73.03 - Prediabetes (5) Hyperlipidemia: Status: Acute Code(s): E78.5 - Hyperlipidemia, unspecified Plan Elderly female with a long history of major depressive disorder r ecurrent episode severe without psychosis, admitted for exacerbation of depression in the context of psychosocial stressors, now with active suicidal ideation. Plan 1. Gather collateral information. 2. Continue with the same treatment. 3. Continue with the same treatment now with the addition of Rexulti I spent minutes with the patient and/or on the patient floor today, greater than?50% of which was spent counseling/coordinating care. Reason for contiued inpatient stay Substantial Risk for: harm to self
[2022-03-17] MEDS: Brexpiprazole 1 MG TABLET 1.5 MG PO (16:57)
[2022-03-17 18:00] VITALS: BP 150/73; PULSE 63; RESP 18; TEMP 36.9; O2SAT 93
[2022-03-17] MEDS: Atorvastatin Calcium 40 MG TABLET PO (20:32)
[2022-03-17] MEDS: Aspirin Enteric Coated 81 MG TABLET.DR PO (20:32)
[2022-03-17] MEDS: cloNIDine HCL 0.1 MG TABLET PO (20:32)
[2022-03-17] MEDS: Mirtazapine 30 MG TABLET PO (20:33)
[2022-03-17] MEDS: Melatonin 3 MG TABLET PO (20:38)
[2022-03-17] MEDS: traZODone HCL 50 MG TABLET PO (20:38)
[2022-03-17] MEDS: hydrOXYzine HCL 25 MG TABLET PO (20:39)
[2022-03-18 08:00] VITALS: BP 115/59; PULSE 74; RESP 16; TEMP 36.8; O2SAT 92
[2022-03-18] MEDS: Metoprolol Succinate ER 12.5 MG HALFTAB.ER.24H PO (08:11)
--- NOTE | 2022-03-18 16:05 | P.PNPSI_ITS ---
Subjective Subjective Date of Service: 03/18/22 Reason For Visit: Depression/ SI Subjective Notes: Conditional Voluntary Interim History: Pt seen feeling somewhat better does not fdeel she needs ect Mental Status Exam Mental Status Exam Patient Appearance: Well Grooomed Patient Orientation: Person, Place, Time and Situation Level of Consciousness: Awake Patient Behavior: Cooperative Mood Description: Constricted Affect Description: Calm Patient Cognition Impaired: Yes Ability to Follow Directions: Good Speech Pattern: Clear Hallucinations: None Delusions: Not Present Thought Process: Distracted Thought Content: positive for [place] and positive for Circumstantial Judgement: Fair Diagnostics Vital Signs (24Hr): Vital Signs - 24 hr 03/17/22 18:00 03/18/22 08:00 Temperature 98.5 F 98.3 F Pulse Rate 63 74 Respiratory Rate 18 16 Blood Pressure 150/73 H 115/59 L Pulse Oximetry 93 92 Oxygen Delivery Method Room Air Room Air BMI result Body Mass Index 25.5 Labs Results: 02/26/22 21:15 02/26/22 21:15 Imaging Radiology Impressions: ITS Impressions Duplex Scan Lower Extremity Artery 03/07/22 19:45 IMPRESSION: 1 RIGHT SIDE: There are elevated velocities in the right common femoral artery consistent with hemodynamically significant stenosis. The stenosis could be within the right external iliac artery. 2. LEFT SIDE: There are monophasic waveforms and low velocities throughout the left lower extremity. This is suspicious for an aortoiliac inflow stenosis. 3. This could be evaluated with a CAT scan angiogram of the pelvis. Venous Duplex 03/07/22 19:45 IMPRESSION: No evidence for deep venous thrombosis in the visualized veins of the bilateral lower extremities. Medications Medications Current Medications Acetaminophen (Acetaminophen 325 Mg Tablet) 650 mg PO Q6H PRN PRN Reason: Headache/Pain Mild Scale (1-3) Last Admin: 03/15/22 06:15 Dose: 650 mg Al Hydroxide/Mg Hydroxide (Magnesium Hydrox/Alum Hydrox 30 Ml Oral.Susp) 30 ml PO Q6H PRN PRN Reason: Heartburn/Nausea Aspirin (Aspirin Enteric Coated 81 Mg Tablet.Dr) 81 mg PO BEDTIME [facility] Last Admin: 03/17/22 20:32 Dose: 81 mg Atorvastatin Calcium (Atorvastatin Calcium 40 Mg Tablet) 40 mg PO BEDTIME [facility] Last Admin: 03/17/22 20:32 Dose: 40 mg Brexpiprazole (Brexpiprazole 1 Mg Tablet) 1.5 mg PO DAILY@1700 [facility] Last Admin: 03/17/22 16:57 Dose: 1.5 mg Clonidine HCl (Clonidine Hcl 0.1 Mg Tablet) 0.1 mg PO BEDTIME [facility]; Protocol Last Admin: 03/17/22 20:32 Dose: 0.1 mg Hydroxyzine HCl (Hydroxyzine Hcl 25 Mg Tablet) 25 mg PO Q6H PRN PRN Reason: Anxiety Last Admin: 03/17/22 20:39 Dose: 25 mg Magnesium Hydroxide (Milk Of Magnesia 30 Ml Oral.Susp) 30 ml PO DAILY PRN PRN Reason: Constipation Melatonin (Melatonin 3 Mg Tablet) 3 mg PO BEDTIME PRN PRN Reason: insomnia Last Admin: 03/17/22 20:38 Dose: 3 mg Metoprolol Succinate (Metoprolol Succinate Er 12.5 Mg Halftab.Er.24h) 12.5 mg PO DAILY [facility]; Protocol Last Admin: 03/18/22 08:11 Dose: 12.5 mg Mirtazapine (Mirtazapine 30 Mg Tablet) 30 mg PO BEDTIME [facility] Last Admin: 03/17/22 20:33 Dose: 30 mg Trazodone HCl (Trazodone Hcl 50 Mg Tablet) 50 mg PO BEDTIME PRN PRN Reason: Insomnia Last Admin: 03/17/22 20:38 Dose: 50 mg Allergies Allergies Allergy/AdvReac Type Severity Reaction Status Date / Time adhesive AdvReac Unknown Verified 04/21/21 23:21 aspirin AdvReac Unknown Verified 04/21/21 23:20 epinephrine AdvReac Unknown Verified 04/21/21 23:21 Assessment & Plan Assessment & Plan (1) MDD (major depressive disorder), recurrent episode, moderate: Status: Acute Code(s): F33.1 - Major depressive disorder, recurrent, moderate Assessment and Plan: The patient is a 76-year-old female, , admitted into the facility for major depressive disorder with suicidal ideation. The patient has been admitted into the hospital several times mostly due to suicidality no clear correlation with psychosocial stressors. Plan 1. Continue with the same treatment. 2. Start discharge planning for early next week 03/17/2022 . Fluoxetine increase mirtazapine 30 mg at bedtime increase Rexulti 1.5 mg. Patient more insightful realize is her home situation not structured fearful of isolation fearful of self-harming behavior if she were to return home alone more open to it alternative discharge plans patient courage to speak with her daughter's 03/18/22 continue plan of care (2) COPD (chronic obstructive pulmonary disease): Status: Acute Code(s): J44.9 - Chronic obstructive pulmonary disease, unspecified (3) Tobacco abuse: Status: Acute Code(s): Z72.0 - Tobacco use (4) Prediabetes: Status: Acute Code(s): R73.03 - Prediabetes (5) Hyperlipidemia: Status: Acute Code(s): E78.5 - Hyperlipidemia, unspecified Plan Elderly female with a long history of 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 Plan 1. Gather collateral information. 2. Continue with the same treatment. 3. Continue with the same treatment now with the addition of Rexulti I spent minutes with the patient and/or on the patient floor today, greater than?50% of which was spent counseling/coordinating care. Reason for contiued inpatient stay Substantial Risk for: harm to self
[2022-03-18] MEDS: Brexpiprazole 1 MG TABLET 1.5 MG PO (16:54)
[2022-03-18 20:05] VITALS: BP 129/82; PULSE 72; TEMP 36.7; O2SAT 92
[2022-03-18] MEDS: Mirtazapine 30 MG TABLET PO (20:18)
[2022-03-18] MEDS: cloNIDine HCL 0.1 MG TABLET PO (20:18)
[2022-03-18] MEDS: Atorvastatin Calcium 40 MG TABLET PO (20:18)
[2022-03-18] MEDS: traZODone HCL 50 MG TABLET PO ×2 (20:18→22:26)
[2022-03-18] MEDS: Aspirin Enteric Coated 81 MG TABLET.DR PO (20:19)
[2022-03-18] MEDS: Melatonin 3 MG TABLET PO (22:26)
[2022-03-19 06:00] VITALS: BP 112/59; PULSE 67; RESP 17; TEMP 36.2; O2SAT 97
[2022-03-19] MEDS: Metoprolol Succinate ER 12.5 MG HALFTAB.ER.24H PO (09:24)
--- NOTE | 2022-03-19 16:18 | P.PNPSI_ITS ---
Subjective Subjective Date of Service: 03/19/22 Reason For Visit: Depression/ SI Subjective Notes: Conditional Voluntary Interim History: The nursing staff reported the patient slept with trazodone last night. Apparently she spoke with the staff at the facility that her is and she is concerned. The social media content manager reported that they have spoken with even [facility] in probably discharge soon. On interview the patient denies new symptoms Mental Status Exam Mental Status Exam Patient Appearance: Well Grooomed Patient Orientation: Person and Situation Level of Consciousness: Awake Patient Behavior: Cooperative Mood Description: Constricted Affect Description: Calm Patient Cognition Impaired: Yes Ability to Follow Directions: Good Speech Pattern: Clear Hallucinations: None Delusions: Not Present Thought Process: Linear Thought Content: positive for Circumstantial Judgement: Fair Diagnostics Vital Signs (24Hr): Vital Signs - 24 hr 03/18/22 20:05 03/19/22 06:00 Temperature 98.1 F 97.1 F Pulse Rate 72 67 Respiratory Rate 17 Blood Pressure 129/82 112/59 L Pulse Oximetry 92 97 Oxygen Delivery Method Room Air Room Air BMI result Body Mass Index 25.5 Labs Results: 02/26/22 21:15 02/26/22 21:15 Imaging Radiology Impressions: ITS Impressions Duplex Scan Lower Extremity Artery 03/07/22 19:45 IMPRESSION: 1 RIGHT SIDE: There are elevated velocities in the right common femoral artery consistent with hemodynamically significant stenosis. The stenosis could be within the right external iliac artery. 2. LEFT SIDE: There are monophasic waveforms and low velocities throughout the left lower extremity. This is suspicious for an aortoiliac inflow stenosis. 3. This could be evaluated with a CAT scan angiogram of the pelvis. Venous Duplex 03/07/22 19:45 IMPRESSION: No evidence for deep venous thrombosis in the visualized veins of the bilateral lower extremities. Medications Medications Current Medications Acetaminophen (Acetaminophen 325 Mg Tablet) 650 mg PO Q6H PRN PRN Reason: Headache/Pain Mild Scale (1-3) Last Admin: 03/15/22 06:15 Dose: 650 mg Al Hydroxide/Mg Hydroxide (Magnesium Hydrox/Alum Hydrox 30 Ml Oral.Susp) 30 ml PO Q6H PRN PRN Reason: Heartburn/Nausea Aspirin (Aspirin Enteric Coated 81 Mg Tablet.Dr) 81 mg PO BEDTIME [facility] Last Admin: 03/18/22 20:19 Dose: 81 mg Atorvastatin Calcium (Atorvastatin Calcium 40 Mg Tablet) 40 mg PO BEDTIME [facility] Last Admin: 03/18/22 20:18 Dose: 40 mg Brexpiprazole (Brexpiprazole 1 Mg Tablet) 1.5 mg PO DAILY@1700 [facility] Last Admin: 03/18/22 16:54 Dose: 1.5 mg Clonidine HCl (Clonidine Hcl 0.1 Mg Tablet) 0.1 mg PO BEDTIME [facility]; Protocol Last Admin: 03/18/22 20:18 Dose: 0.1 mg Hydroxyzine HCl (Hydroxyzine Hcl 25 Mg Tablet) 25 mg PO Q6H PRN PRN Reason: Anxiety Last Admin: 03/17/22 20:39 Dose: 25 mg Magnesium Hydroxide (Milk Of Magnesia 30 Ml Oral.Susp) 30 ml PO DAILY PRN PRN Reason: Constipation Melatonin (Melatonin 3 Mg Tablet) 3 mg PO BEDTIME PRN PRN Reason: insomnia Last Admin: 03/18/22 22:26 Dose: 3 mg Metoprolol Succinate (Metoprolol Succinate Er 12.5 Mg Halftab.Er.24h) 12.5 mg PO DAILY [facility]; Protocol Last Admin: 03/19/22 09:24 Dose: 12.5 mg Mirtazapine (Mirtazapine 30 Mg Tablet) 30 mg PO BEDTIME [facility] Last Admin: 03/18/22 20:18 Dose: 30 mg Trazodone HCl (Trazodone Hcl 50 Mg Tablet) 50 mg PO BEDTIME PRN PRN Reason: Insomnia Last Admin: 03/18/22 22:26 Dose: 50 mg Allergies Allergies Allergy/AdvReac Type Severity Reaction Status Date / Time adhesive AdvReac Unknown Verified 04/21/21 23:21 aspirin AdvReac Unknown Verified 04/21/21 23:20 epinephrine AdvReac Unknown Verified 04/21/21 23:21 Assessment & Plan Assessment & Plan (1) MDD (major depressive disorder), recurrent episode, moderate: Status: Acute Code(s): F33.1 - Major depressive disorder, recurrent, moderate Assessment and Plan: The patient is a 76-year-old female, , admitted into the facility for major depressive disorder with suicidal ideation. The patient has been admitted into the hospital several times mostly due to suicidality no clear correlation with psychosocial stressors. Plan 1. Continue with the same treatment. 2. Start discharge planning for early next week 03/17/2022 . Fluoxetine increase mirtazapine 30 mg at bedtime increase Rexulti 1.5 mg. Patient more insightful realize is her home situation not structured fearful of isolation fearful of self-harming behavior if she were to return home alone more open to it alternative discharge plans patient courage to speak with her daughter's (2) COPD (chronic obstructive pulmonary disease): Status: Acute Code(s): J44.9 - Chronic obstructive pulmonary disease, unspecified (3) Tobacco abuse: Status: Acute Code(s): Z72.0 - Tobacco use (4) Prediabetes: Status: Acute Code(s): R73.03 - Prediabetes (5) Hyperlipidemia: Status: Acute Code(s): E78.5 - Hyperlipidemia, unspecified Plan Elderly female with a long history of 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 Plan 1. Gather collateral information. 2. Continue with the same treatment. 3. Continue with the same treatment now with the addition of Rexulti I spent ___20___ minutes with the patient and/or on the patient floor today, greater than?50% of which was spent counseling/coordinating care. Reason for contiued inpatient stay Substantial Risk for: inability to function, rapid decompensation and med/psych decompensation
[2022-03-19] MEDS: Brexpiprazole 1 MG TABLET 1.5 MG PO (17:40)
[2022-03-19 19:20] VITALS: BP 135/63; PULSE 73; RESP 16; TEMP 36.3; O2SAT 96
[2022-03-19] MEDS: Atorvastatin Calcium 40 MG TABLET PO (20:41)
[2022-03-19] MEDS: cloNIDine HCL 0.1 MG TABLET PO (20:41)
[2022-03-19] MEDS: Aspirin Enteric Coated 81 MG TABLET.DR PO (20:41)
[2022-03-19] MEDS: Mirtazapine 30 MG TABLET PO (20:41)
[2022-03-19] MEDS: Melatonin 3 MG TABLET PO (21:22)
[2022-03-19] MEDS: traZODone HCL 50 MG TABLET PO ×2 (21:22→22:46)
[2022-03-20 07:45] VITALS: BP 103/53; PULSE 69; RESP 17; TEMP 35.9; O2SAT 93
[2022-03-20] MEDS: Metoprolol Succinate ER 12.5 MG HALFTAB.ER.24H PO (07:52)
--- NOTE | 2022-03-20 11:57 | HO.PSYCHPN ---
Subjective Subjective Date of Service: 03/20/22 Reason For Visit: Depression/ SI Subjective Notes: Conditional Voluntary Interim History: The nursing staff reported the patient has been fully compliant with treatment. On interview the patient reports mild dysphoria she feels safe at this moment. Mental Status Exam Mental Status Exam Patient Appearance: Well Grooomed Patient Orientation: Person and Situation Level of Consciousness: Awake Patient Behavior: Cooperative Mood Description: Calm Affect Description: Constricted Patient Cognition Impaired: Yes Ability to Follow Directions: Good Speech Pattern: Clear Hallucinations: None Delusions: Not Present Thought Process: Distracted Thought Content: positive for [place] Judgement: Good Diagnostics Vital Signs (24Hr): Vital Signs - 24 hr 03/19/22 19:20 03/20/22 07:45 Temperature 97.4 F 96.7 F L Pulse Rate 73 69 Respiratory Rate 16 17 Blood Pressure 135/63 103/53 L Pulse Oximetry 96 93 Oxygen Delivery Method Room Air Room Air BMI result Body Mass Index 25.5 Labs Results: 02/26/22 21:15 02/26/22 21:15 Imaging Radiology Impressions: ITS Impressions Duplex Scan Lower Extremity Artery 03/07/22 19:45 IMPRESSION: 1 RIGHT SIDE: There are elevated velocities in the right common femoral artery consistent with hemodynamically significant stenosis. The stenosis could be within the right external iliac artery. 2. LEFT SIDE: There are monophasic waveforms and low velocities throughout the left lower extremity. This is suspicious for an aortoiliac inflow stenosis. 3. This could be evaluated with a CAT scan angiogram of the pelvis. Venous Duplex 03/07/22 19:45 IMPRESSION: No evidence for deep venous thrombosis in the visualized veins of the bilateral lower extremities. Medications Medications Current Medications Acetaminophen (Acetaminophen 325 Mg Tablet) 650 mg PO Q6H PRN PRN Reason: Headache/Pain Mild Scale (1-3) Last Admin: 03/15/22 06:15 Dose: 650 mg Al Hydroxide/Mg Hydroxide (Magnesium Hydrox/Alum Hydrox 30 Ml Oral.Susp) 30 ml PO Q6H PRN PRN Reason: Heartburn/Nausea Aspirin (Aspirin Enteric Coated 81 Mg Tablet.Dr) 81 mg PO BEDTIME HAJA Last Admin: 03/19/22 20:41 Dose: 81 mg Atorvastatin Calcium (Atorvastatin Calcium 40 Mg Tablet) 40 mg PO BEDTIME HAJA Last Admin: 03/19/22 20:41 Dose: 40 mg Brexpiprazole (Brexpiprazole 1 Mg Tablet) 1.5 mg PO DAILY@1700 HAJA Last Admin: 03/19/22 17:40 Dose: 1.5 mg Clonidine HCl (Clonidine Hcl 0.1 Mg Tablet) 0.1 mg PO BEDTIME HAJA; Protocol Last Admin: 03/19/22 20:41 Dose: 0.1 mg Hydroxyzine HCl (Hydroxyzine Hcl 25 Mg Tablet) 25 mg PO Q6H PRN PRN Reason: Anxiety Last Admin: 03/17/22 20:39 Dose: 25 mg Magnesium Hydroxide (Milk Of Magnesia 30 Ml Oral.Susp) 30 ml PO DAILY PRN PRN Reason: Constipation Melatonin (Melatonin 3 Mg Tablet) 3 mg PO BEDTIME PRN PRN Reason: insomnia Last Admin: 03/19/22 21:22 Dose: 3 mg Metoprolol Succinate (Metoprolol Succinate Er 12.5 Mg Halftab.Er.24h) 12.5 mg PO DAILY HAJA; Protocol Last Admin: 03/20/22 07:52 Dose: 12.5 mg Mirtazapine (Mirtazapine 30 Mg Tablet) 30 mg PO BEDTIME HAJA Last Admin: 03/19/22 20:41 Dose: 30 mg Trazodone HCl (Trazodone Hcl 50 Mg Tablet) 50 mg PO BEDTIME PRN PRN Reason: Insomnia Last Admin: 03/19/22 22:46 Dose: 50 mg Allergies Allergies Allergy/AdvReac Type Severity Reaction Status Date / Time adhesive AdvReac Unknown Verified 04/21/21 23:21 aspirin AdvReac Unknown Verified 04/21/21 23:20 epinephrine AdvReac Unknown Verified 04/21/21 23:21 Assessment & Plan Assessment & Plan (1) MDD (major depressive disorder), recurrent episode, moderate: Status: Acute Code(s): F33.1 - Major depressive disorder, recurrent, moderate Assessment and Plan: The patient is a 76-year-old female, , admitted into the facility for major depressive disorder with suicidal ideation. The patient has been admitted into the hospital several times mostly due to suicidality no clear correlation with psychosocial stressors. Plan 1. Continue with the same treatment. 2. Start discharge planning for early next week 03/17/2022 . Fluoxetine increase mirtazapine 30 mg at bedtime increase Rexulti 1.5 mg. Patient more insightful realize is her home situation not structured fearful of isolation fearful of self-harming behavior if she were to return home alone more open to it alternative discharge plans patient courage to speak with her daughter's (2) COPD (chronic obstructive pulmonary disease): Status: Acute Code(s): J44.9 - Chronic obstructive pulmonary disease, unspecified (3) Tobacco abuse: Status: Acute Code(s): Z72.0 - Tobacco use (4) Prediabetes: Status: Acute Code(s): R73.03 - Prediabetes (5) Hyperlipidemia: Status: Acute Code(s): E78.5 - Hyperlipidemia, unspecified Plan Elderly female with a long history of 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 Plan 1. Gather collateral information. 2. Continue with the same treatment. 3. Continue with the same treatment now with the addition of Rexulti I spent ___20___ minutes with the patient and/or on the patient floor today, greater than?50% of which was spent counseling/coordinating care. Reason for contiued inpatient stay Substantial Risk for: inability to function, rapid decompensation and med/psych decompensation
[2022-03-20 18:00] VITALS: BP 115/55; PULSE 70; RESP 16; TEMP 36.6; O2SAT 95
[2022-03-20] MEDS: Brexpiprazole 1 MG TABLET 1.5 MG PO (18:01)
[2022-03-20] MEDS: Atorvastatin Calcium 40 MG TABLET PO (20:25)
[2022-03-20] MEDS: Aspirin Enteric Coated 81 MG TABLET.DR PO (20:25)
[2022-03-20] MEDS: traZODone HCL 50 MG TABLET PO (20:26)
[2022-03-20] MEDS: Mirtazapine 30 MG TABLET PO (20:26)
[2022-03-20] MEDS: Melatonin 3 MG TABLET PO (20:26)
[2022-03-20] MEDS: cloNIDine HCL 0.1 MG TABLET PO (20:26)
[2022-03-21 07:45] VITALS: BP 125/62; PULSE 60; RESP 17; TEMP 35.8; O2SAT 96
[2022-03-21] MEDS: Metoprolol Succinate ER 12.5 MG HALFTAB.ER.24H PO (07:53)
--- NOTE | 2022-03-21 13:05 | HO.PSYCHPN ---
Subjective Subjective Date of Service: 03/21/22 Reason For Visit: Depression/ SI Subjective Notes: Conditional Voluntary Interim History: The nursing staff reported the patient has been apprehensive and slightly anxious but she slept 8 hours. She is anxious since her stay case willing discharge is for tomorrow and her daughter will pick her up. On interview the patient denies new symptoms. Anxious for discharge tomorrow. Mental Status Exam Mental Status Exam Patient Appearance: Well Grooomed Patient Orientation: Person and Situation Level of Consciousness: Awake Patient Behavior: Appropriate Mood Description: Withdrawn Affect Description: Constricted Patient Cognition Impaired: Yes Ability to Follow Directions: Good Speech Pattern: Clear Hallucinations: None Delusions: Not Present Thought Process: Distracted Thought Content: positive for [place] Judgement: Fair Diagnostics Vital Signs (24Hr): Vital Signs - 24 hr 03/20/22 18:00 03/21/22 07:45 Temperature 97.8 F 96.4 F L Pulse Rate 70 60 Respiratory Rate 16 17 Blood Pressure 115/55 L 125/62 Pulse Oximetry 95 96 Oxygen Delivery Method Room Air Room Air BMI result Body Mass Index 25.5 Labs Results: 02/26/22 21:15 02/26/22 21:15 Imaging Radiology Impressions: ITS Impressions Duplex Scan Lower Extremity Artery 03/07/22 19:45 IMPRESSION: 1 RIGHT SIDE: There are elevated velocities in the right common femoral artery consistent with hemodynamically significant stenosis. The stenosis could be within the right external iliac artery. 2. LEFT SIDE: There are monophasic waveforms and low velocities throughout the left lower extremity. This is suspicious for an aortoiliac inflow stenosis. 3. This could be evaluated with a CAT scan angiogram of the pelvis. Venous Duplex 03/07/22 19:45 IMPRESSION: No evidence for deep venous thrombosis in the visualized veins of the bilateral lower extremities. Medications Medications Current Medications Acetaminophen (Acetaminophen 325 Mg Tablet) 650 mg PO Q6H PRN PRN Reason: Headache/Pain Mild Scale (1-3) Last Admin: 03/15/22 06:15 Dose: 650 mg Al Hydroxide/Mg Hydroxide (Magnesium Hydrox/Alum Hydrox 30 Ml Oral.Susp) 30 ml PO Q6H PRN PRN Reason: Heartburn/Nausea Aspirin (Aspirin Enteric Coated 81 Mg Tablet.Dr) 81 mg PO BEDTIME HAJA Last Admin: 03/20/22 20:25 Dose: 81 mg Atorvastatin Calcium (Atorvastatin Calcium 40 Mg Tablet) 40 mg PO BEDTIME HAJA Last Admin: 03/20/22 20:25 Dose: 40 mg Brexpiprazole (Brexpiprazole 1 Mg Tablet) 1.5 mg PO DAILY@1700 HAJA Last Admin: 03/20/22 18:01 Dose: 1.5 mg Clonidine HCl (Clonidine Hcl 0.1 Mg Tablet) 0.1 mg PO BEDTIME HAJA; Protocol Last Admin: 03/20/22 20:26 Dose: 0.1 mg Hydroxyzine HCl (Hydroxyzine Hcl 25 Mg Tablet) 25 mg PO Q6H PRN PRN Reason: Anxiety Last Admin: 03/17/22 20:39 Dose: 25 mg Magnesium Hydroxide (Milk Of Magnesia 30 Ml Oral.Susp) 30 ml PO DAILY PRN PRN Reason: Constipation Melatonin (Melatonin 3 Mg Tablet) 3 mg PO BEDTIME PRN PRN Reason: insomnia Last Admin: 03/20/22 20:26 Dose: 3 mg Metoprolol Succinate (Metoprolol Succinate Er 12.5 Mg Halftab.Er.24h) 12.5 mg PO DAILY [facility]; Protocol Last Admin: 03/21/22 07:53 Dose: 12.5 mg Mirtazapine (Mirtazapine 30 Mg Tablet) 30 mg PO BEDTIME HAJA Last Admin: 03/20/22 20:26 Dose: 30 mg Trazodone HCl (Trazodone Hcl 50 Mg Tablet) 50 mg PO BEDTIME PRN PRN Reason: Insomnia Last Admin: 03/20/22 20:26 Dose: 50 mg Allergies Allergies Allergy/AdvReac Type Severity Reaction Status Date / Time adhesive AdvReac Unknown Verified 04/21/21 23:21 aspirin AdvReac Unknown Verified 04/21/21 23:20 epinephrine AdvReac Unknown Verified 04/21/21 23:21 Assessment & Plan Assessment & Plan (1) MDD (major depressive disorder), recurrent episode, moderate: Status: Acute Code(s): F33.1 - Major depressive disorder, recurrent, moderate Assessment and Plan: The patient is a 76-year-old female, , admitted into the facility for major depressive disorder with suicidal ideation. The patient has been admitted into the hospital several times mostly due to suicidality no clear correlation with psychosocial stressors. Plan 1. Continue with the same treatment. 2. Start discharge planning for early next week 03/17/2022 . Fluoxetine increase mirtazapine 30 mg at bedtime increase Rexulti 1.5 mg. Patient more insightful realize is her home situation not structured fearful of isolation fearful of self-harming behavior if she were to return home alone more open to it alternative discharge plans patient courage to speak with her daughter's (2) COPD (chronic obstructive pulmonary disease): Status: Acute Code(s): J44.9 - Chronic obstructive pulmonary disease, unspecified (3) Tobacco abuse: Status: Acute Code(s): Z72.0 - Tobacco use (4) Prediabetes: Status: Acute Code(s): R73.03 - Prediabetes (5) Hyperlipidemia: Status: Acute Code(s): E78.5 - Hyperlipidemia, unspecified Plan Elderly female with a long history of 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 Plan 1. Gather collateral information. 2. Continue with the same treatment. 3. Continue with the same treatment now with the addition of Rexulti I spent minutes with the patient and/or on the patient floor today, greater than?50% of which was spent counseling/coordinating care. Reason for contiued inpatient stay Substantial Risk for: inability to function, rapid decompensation and med/psych decompensation
[2022-03-21 18:00] VITALS: BP 148/67; PULSE 64; RESP 16; TEMP 36.3; O2SAT 94
[2022-03-21] MEDS: Brexpiprazole 1 MG TABLET 1.5 MG PO (18:38)
[2022-03-21] MEDS: Atorvastatin Calcium 40 MG TABLET PO (20:02)
[2022-03-21] MEDS: Mirtazapine 30 MG TABLET PO (20:02)
[2022-03-21] MEDS: traZODone HCL 50 MG TABLET PO (20:03)
[2022-03-21] MEDS: cloNIDine HCL 0.1 MG TABLET PO (20:03)
[2022-03-21] MEDS: Aspirin Enteric Coated 81 MG TABLET.DR PO (20:03)
[2022-03-22 07:00] VITALS: BMI 25.0
[2022-03-22 07:30] VITALS: BP 140/60; PULSE 68; TEMP 36.1; O2SAT 93
[2022-03-22] MEDS: Metoprolol Succinate ER 12.5 MG HALFTAB.ER.24H PO (08:15)
--- NOTE | 2022-03-22 11:38 | P.DS_ITS ---
DS: Providers Provider Date of Service: 03/22/22 Date of admission: 02/27/22 10:11 Date of discharge: 03/22/22 Primary care physician: Unknown Physician Consults: 02/26/22 19:52 BHN [Consult to Crisis] Stat Reason for consultation: si 03/12/22 19:56 Consult to Vascular Surgery Routine Consulting Provider: Sheng Valladares Reason for consultation: claudication/see flow studies ? rec Has provider been notified: No DS: Diagnosis Discharge Diagnosis (1) MDD (major depressive disorder), recurrent episode, moderate: Status: Acute (2) COPD (chronic obstructive pulmonary disease): Status: Acute (3) Tobacco abuse: Status: Acute (4) Prediabetes: Status: Acute (5) Hyperlipidemia: Status: Acute DS: Medications Discharge Medications Home Medications: Home Medications Medication Instructions Recorded Confirmed clonidine HCl 0.1 mg tablet 0.1 mg PO BID 02/26/22 02/26/22 risperidone 2 mg tablet 1 tab PO BEDTIME 02/27/22 02/27/22 Previous Rx's Medication Instructions Recorded clonazepam 0.5 mg tablet 1 tab PO BID PRN anxiety attack 30 02/19/22 days #60 tabs fluoxetine 20 mg capsule 3 cap PO DAILY 30 days #90 caps 02/19/22 hydroxyzine HCl 1 caplet PO TID PRN Anxiety 30 02/19/22 days #90 caps metoprolol succinate 25 mg 0.5 tab PO DAILY 30 days #15 tabs 02/19/22 tablet,extended release 24 hr mirtazapine 15 mg tablet 1 tab PO BEDTIME 30 days #30 tabs 02/19/22 risperidone 1 mg tablet 1 tab PO QAM 30 days #30 tabs 02/19/22 rosuvastatin 10 mg tablet 1 tab PO BEDTIME 30 days #30 tabs 02/19/22 trazodone 100 mg tablet 100 mg PO BEDTIME PRN insomnia 30 02/19/22 days #30 tabs Mental Status Exam Mental Status Exam Patient Appearance: Well Grooomed Patient Orientation: Person, Place, Time and Situation Level of Consciousness: Awake Patient Behavior: Cooperative Mood Description: Constricted Affect Description: Calm Patient Cognition Impaired: Yes Ability to Follow Directions: Good Speech Pattern: Clear Hallucinations: None Delusions: Not Present Thought Process: Distracted Thought Content: positive for [place] and positive for Circumstantial Judgement: Fair Data Imaging Diagnostic Imaging Impressions Duplex Scan Lower Extremity Artery 03/07/22 19:45 IMPRESSION: 1 RIGHT SIDE: There are elevated velocities in the right common femoral artery consistent with hemodynamically significant stenosis. The stenosis could be within the right external iliac artery. 2. LEFT SIDE: There are monophasic waveforms and low velocities throughout the left lower extremity. This is suspicious for an aortoiliac inflow stenosis. 3. This could be evaluated with a CAT scan angiogram of the pelvis. Venous Duplex 03/07/22 19:45 IMPRESSION: No evidence for deep venous thrombosis in the visualized veins of the bilateral lower extremities. DS: Summary Hospital Course Hospital Course: The patient was admitted for exacerbation of depressive symptoms in the context of psychosocial stressors such as the worsen health of her . Please see the H b.i.d. note for further details. On admission, we continue with her regular antidepressants. The patient remained depressive with neurovegetative symptoms of Rexulti was added up to 1.5 mg p.o. daily in order to address her dysphoria. She slowly improved with resolution of poor sleep and poor appetite. The patient was able to attend groups she was future oriented and there was no evidence of safety concerns. We discussed discharge planning since she improved. Time spent discussing smoking cessation with patient: 3 to 10 minutes Status at Discharge Cognitive/behavioral status at discharge: At baseline Functional status at discharge: independent ambulation Overall status at discharge: patient is back to baseline Time Spent with Patient Time attestation: Total time spent providing and/or coordinating discharge services: Time spent: Less than 30 minutes Discharge Plan Discharge Patient Disposition: Home, Self-Care Discharge Diagnosis: Major depressive disorder Referrals: [facility] [Other] - 03/23/22 (Referral for [facility] made and they will schedule home visit for assessment to enroll. Krys Marcos from [facility]'s enrollment will contact you on 03/23/22 to schedule home visit. ) Billy Bee [facility] [Other] - 03/23/22 10:00 am (Your next appointment with your therapist for telehealth is 03/23/22 at 10am. ) Gage Amado APRN [Other] - 04/06/22 11:45 am [facility] [Other] - 03/23/22 (Your binder caser's name is Krista Huang and her number is [phone]. She will reach out to you following discharge and your personal care and homemaking hours and weekly RN visits for med minder set up will resume once you are discharged. You have one hours of personal care on Mondays and 2 hours of Homemaking on Mondays, and home delivered meals. RN willl provide visit on Saturday for med minder set up. ) Dr Kim PCP [Other] - 1 Week (Your PCP s office will contact you directly to schedule appointment. ) Discharge Medications: New clonidine HCl 0.1 mg Tablet 0.1 mg PO BEDTIME 30 Days Qty: 30 0RF Protocol: Hold for SBP< HOLD for SBP < : 90 aspirin 81 mg Tablet,Delayed Release (Dr/Ec) 81 mg PO BEDTIME 30 Days Qty: 30 0RF mirtazapine 30 mg Tablet 30 mg PO BEDTIME 30 Days Qty: 30 0RF Rexulti 1 mg Tablet 1.5 mg PO DAILY@1700 30 Days Qty: 45 0RF melatonin 3 mg Tablet 3 mg PO BEDTIME PRN (Reason: insomnia) 30 Days Qty: 30 0RF Continued clonazepam 0.5 mg tablet 1 tab PO BID PRN (Reason: anxiety attack) 30 Days Qty: 60 0RF trazodone 100 mg Tablet 100 mg PO BEDTIME PRN (Reason: insomnia) 30 Days Qty: 30 0RF metoprolol succinate 25 mg tablet extended release 24 hr 0.5 tab PO DAILY 30 Days Qty: 15 0RF rosuvastatin 10 mg tablet 1 tab PO BEDTIME 30 Days Qty: 30 0RF hydroxyzine HCl 25 mg capsule 1 caplet PO TID PRN (Reason: Anxiety) 30 Days Qty: 90 0RF Discontinued clonidine HCl 0.1 mg tablet 0.1 mg PO BID Protocol: Hold for SBP< HOLD for SBP < : 90 risperidone 2 mg tablet 1 tab PO BEDTIME mirtazapine 15 mg tablet 1 tab PO BEDTIME 30 Days Qty: 30 0RF fluoxetine 20 mg capsule 3 cap PO DAILY 30 Days Qty: 90 0RF risperidone 1 mg tablet 1 tab PO QAM 30 Days Qty: 30 0RF Discharge Orders: Discharge Order (Routine); Ordered 03/22/22 Ordered By: James Garcia Diet: Advance to usual diet Activity on Discharge: As tolerated Stand Alone Forms: Patient Portal Discharge page Care Plan Goals: Care plan goals achieved in this admission Health Concerns: Continue treatment by primary care physician Plan of Treatment: Continue treatment with outpatient provider Assessment: Elderly female with major depressive disorder readmitted after suicidal ideation in the context of psychosocial stressors, currently safe to be discharged in the community.
== END 2022-03-22 14:20 | disposition home or self-care (01) | DRG 885 ==
LOC: HO.ED 21:00 → HO.PGERI 02-27 10:13
PROVIDERS: Admitting Provider Psychiatry & Neurology Psychiatry; Emergency Provider Emergency Medicine; Visit Provider Psychiatry & Neurology Psychiatry
DX: F33.1 Major depressive disorder, recurrent, moderate (principal); R45.851 Suicidal ideations; J44.9 Chronic obstructive pulmonary disease, unspecified; I10 Essential (primary) hypertension; E78.5 Hyperlipidemia, unspecified; F43.10 Post-traumatic stress disorder, unspecified; Z86.73 Personal history of transient ischemic attack (TIA), and cerebral infarction without residual deficits; R73.03 Prediabetes; F17.210 Nicotine dependence, cigarettes, uncomplicated; Z71.6 Tobacco abuse counseling; Z91.51 Personal history of suicidal behavior; Z20.822 Contact with and (suspected) exposure to COVID-19; Z88.6 Allergy status to analgesic agent; Z88.8 Allergy status to other drugs, medicaments and biological substances; Z79.82 Long term (current) use of aspirin; Z79.899 Other long term (current) drug therapy
CPT/HCPCS: 36415; 80048; 80076; 80143; 80179; 82077; 85025; 85610; 87635; 93005; 93925; 93970; 97161; 99285

== ENCOUNTER 2022-05-02 12:15 | Inpatient (IN) | payer MEDICARE, SELFPAY ==
[2022-05-02 12:36] VITALS: BP 119/64; PULSE 71; RESP 16; TEMP 36.7; O2SAT 96; BMI 24.2
--- NOTE | 2022-05-02 12:51 | ED.PSYCH ---
HPI - Psych General Chief Complaint: Psychiatric Symptoms Stated Complaint: DOES NOT KNOW IF SHE TOOK ALL HER MEDS THIS AM Time Seen by Provider: 05/02/22 12:18 Source: patient and EMS Mode of arrival: EMS Limitations: no limitations History of Present Illness HPI Narrative: This is a 76-year-old female with a history of depression, PTSD, COPD who presents with complaints of increasing depression over the last few weeks with suicidal thoughts to overdose on her home medications. Patient reports history of suicide attempt in the past with taking home medications. Patient has had several hospitalizations on M 5 most recently in March. She was discharged home on rexulti which she said helped but has she ran out of this medication about a week ago. She tells me that her daughter has been trying to get in contact with the pharmacist today and the prescriber in regards to this. No homicidal ideations. No hallucinations. No substance use. Patient reports depression because her is currently very ill. Patient had a total colectomy and has some diarrhea at baseline. However over the last few weeks she has had increasing diarrhea up to 10 episodes daily since being released from the hospital with no associated abdominal pain, fevers, nausea or vomiting. Related Data Home Medications Medication Instructions Recorded Confirmed aspirin 81 mg tablet,delayed 1 tab PO BEDTIME 05/02/22 05/02/22 release clonazepam 0.5 mg tablet 1 tab PO BID PRN anxiety attack 05/02/22 05/02/22 clonidine HCl 0.1 mg tablet 1 tab PO BID PRN panic attack 05/02/22 05/02/22 hydroxyzine pamoate 25 mg capsule 1 cap PO TID PRN anxiety 05/02/22 05/02/22 melatonin 3 mg tablet 1 tab PO BEDTIME 05/02/22 05/02/22 metoprolol succinate 25 mg 0.5 tab PO DAILY 05/02/22 05/02/22 tablet,extended release 24 hr mirtazapine 15 mg tablet 30 mg PO BEDTIME 05/02/22 05/02/22 rosuvastatin 10 mg tablet 1 tab PO BEDTIME 05/02/22 05/02/22 trazodone 100 mg tablet 1 tab PO BEDTIME PRN insomnia 05/02/22 05/02/22 Previous Rx's Medication Instructions Recorded brexpiprazole 1 mg tablet (Rexulti) 1.5 mg PO DAILY@1700 30 days #45 03/22/22 tabs Allergies Allergy/AdvReac Type Severity Reaction Status Date / Time adhesive AdvReac Unknown Verified 04/21/21 23:21 aspirin AdvReac Unknown Verified 04/21/21 23:20 epinephrine AdvReac Unknown Verified 04/21/21 23:21 Review of Systems Review of Systems: Yes all other systems are reviewed and are negative Constitutional: Constitutional: Reports no additional constitutional complaints, Denies body ache(s), Denies chills, Denies fever(s), Denies headache(s) and Denies weakness Eyes: Eyes: Reports no additional eye complaints and Denies change in vision ENT: Reports system reviewed and no additional complaints, except as documented, Denies dizziness, Denies headache(s), Denies nasal congestion, Denies nasal discharge and Denies neck pain Cardiovascular: Cardiovascular: Reports no additional cardiovascular complaints, Denies chest pain, Denies leg edema and Denies dyspnea Respiratory: Respiratory: Reports no additional respiratory complaints, Denies cough and Denies dyspnea Gastrointestinal: Gastrointestinal: Reports no additional gastrointestinal complaints, Denies abdominal pain, Denies diarrhea, Denies nausea and Denies vomiting Genitourinary: Genitourinary: Reports no additional female genitourinary complaints and Denies urinary incontinence Musculoskeletal: Musculoskeletal: Reports no additional musculoskeletal complaints, Denies back pain, Denies arthralgias, Denies joint swelling, Denies neck pain, Denies numbness and Denies tingling Integumentary/Breasts: Skin/Breast: Reports system reviewed and no additional complaints, except as docu and Denies rash Neurologic: Reports system reviewed and no additional complaints, except as documented, Denies Abnormal speech present, Denies dizziness, Denies headache(s), Denies numbness, Denies tingling and Denies weakness Psychiatric: Psychiatric: Reports depression, Denies visual hallucinations, Denies hallucinations, Denies homicidal ideation and Reports suicidal ideation [facility] Past Medical History Attestation statement: The following information was validated with the patient. Source: old records reviewed and nursing notes reviewed Medical History COPD (chronic obstructive pulmonary disease) Depression Essential hypertension Hyperlipidemia Mitral valve prolapse Prediabetes PTSD (post-traumatic stress disorder) TIA (transient ischemic attack) Tobacco abuse Surgical History History of colectomy History of parathyroidectomy Social History Social History Household Members: Spouse Housing: Apartment Do you presently have visiting nurse or other home services: Yes Alcohol intake: never Patient Tobacco Use Status: Current everyday Tobacco user Tobacco use type: Cigarette Cigarette Packs Per Day: 0.1 Cigarettes Per Day: 6 Years Smoked: 20 e-Cigarette/Vaping Use: Never Used Second Hand Smoke Exposure: Yes Substance Use Type: Prescription Drugs and Caffiene Advance Directives: Yes Advance Directives on File: Yes Advance Directives Date on File: 02/08/22 Healthcare Proxy: No Guardian: No service: No Sexual orientation: Straight/Heterosexual Physical Exam Vital Signs: Vital Signs: Last Vital Signs Temp 97.6 F 05/03/22 00:47 Pulse 69 05/03/22 00:47 Resp 16 05/03/22 00:47 BP 127/70 05/03/22 00:47 Pulse Ox 94 05/03/22 00:47 O2 Del Method 05/03/22 00:47 BMI result Body Mass Index 24.2 Const: General: cooperative, healthy appearing, comfortable and no acute distress Orientation/consciousness: patient oriented x3 Limitations: no limitations HEENT: Head: Yes normal to inspection Ears: hearing grossly normal bilaterally General nose exam: Normal external nose present Face and sinus: Yes normal facial exam Mouth: Normal oral and palatal mucosa present Throat: Yes posterior oropharynx normal Eyes: General: appearance normal, both eyes and all related structures Pupils: Equal, round and reactive pupils present Neck: Neck: Yes normal visual inspection Chest: Chest palpation & inspection: normal inspection of the chest Resp: Effort & Inspection: normal respiratory effort Auscultation: clear to auscultation bilaterally Cardio: Rate: regular rate Rhythm: regular rhythm Peripheral pulses: Peripheral pulses 2+ throughout GI: Inspection: Yes normal to inspection Palpation (GI): Soft to palpation and nontender Auscultation: normal bowel sounds Back/Spine/Pelvis: Thoracic/Lumbar Spine: thoracic and lumbar spine normal to inspection Skin: General skin exam: no rashes or lesions noted Neuro: General: patient oriented x3, no focal motor deficits and normal sensation to monofilament Cranial nerves: Yes CN's II-XII intact bilaterally and Yes Equal, round and reactive pupils present Cognition (Neuro): normal cognition Speech: No Abnormal speech present Gait exam (Neuro): Normal gait present Motor exam (neuro): 5/5 motor strength present throughout Extrem: General: Yes normal to inspection Course Course Course Narrative: Patient seen by care team. Plan for Section 12 bed search. This was signed and placed in chart Reevaluation(s) Reevaluation #1: 1800-patient placed in physician observation pending disposition. Sign at to night team pending above MDM - Psych MDM Narrative Medical decision making narrative: This is a 76-year-old female with a longstanding history of depression here with suicidal thoughts and plan to overdose on her home medications. Will sign Section 12 Patient will need labs including toxicology, COVID screen and a crisis consultation She is complaining of some diarrhea. She does have a history of a total colectomy and has some chronic diarrhea but this seems worse. Will check GI panel and C diff panel Medical Records Attestation: I reviewed the patient's medical records. Lab Data Attestation: I reviewed the patient's lab results. Result diagrams: 05/02/22 13:29 05/02/22 13:29 Labs: Lab Results 05/02/22 05/02/22 05/02/22 Range/Units 13:29 13:29 13:29 WBC 7.0 (4.8-10.8) X10*3/uL RBC 4.61 (4.20-5.50) X10*6/uL Hgb 13.7 (12.0-16.0) g/dl Hct 40.0 (37.0-47.0) % MCV 86.8 (80.0-98.0) fL MCH 29.7 (27.0-33.0) pg MCHC 34.3 (31.0-35.0) g/dl RDW 13.6 (11.0-16.0) % Plt Count 286 (160-400) X10*3/uL MPV 9.2 L (9.4-12.3) fL Immature Gran % (Auto) 0.4 (0.0-0.4) % Neut % (Auto) 56.2 (45-73) % Lymph % (Auto) 30.4 (20-40) % Reagan % (Auto) 8.6 (2-11) % Eos % (Auto) 3.4 (0-4) % Baso % (Auto) 1.0 (0-2) % Lymph # (Auto) 2.1 (1.2-4.9) X10*3/uL Reagan # (Auto) 0.6 (0.1-1.2) X10*3/uL Eos # (Auto) 0.2 (0.0-0.4) X10*3/uL Baso # (Auto) 0.1 (0.0-0.2) X10*3/uL Abs Immat Gran (auto) 0.03 (0.00-0.03) X10*3/uL Absolute Neuts (auto) 3.9 (2.0-8.3) x10*3/uL Absolute Nucleated RBC 0.000 (0.0-0.012) X10*3/uL Nucleated RBC % (auto) 0.0 (0.0-0.2) /100WBC Sodium 136 (135-145) mmol/L Potassium 4.8 (3.3-5.1) mmol/L Chloride 101 (96-108) mmol/L Carbon Dioxide 25 (22-29) mmol/L Anion Gap 15 (12-20) BUN 10 (9-16) mg/dL Creatinine 0.79 (0.5-1.4) mg/dL Estim Creat Clear Calc 59.8 Estimated GFR > 60 Random Glucose 98 (60-115) mg/dL Calcium 9.7 (8.4-10.2) mg/dL Total Bilirubin 0.3 (0.0-1.0) mg/dL Direct Bilirubin < 0.2 (0.0-0.5) mg/dL AST 14 (5-31) U/L ALT 10 (0-31) U/L Alkaline Phosphatase 57 (39-117) U/L Total Protein 6.7 (6.5-8.0) g/dL Albumin 4.0 (3.5-5.0) g/dL Urine Color Urine Appearance Urine pH (5.0-9.0) Ur Specific [place] (1.005-1.025) Urine Protein (Neg-Trace) mg/dL Urine Glucose (UA) (Negative) mg/dL Urine Ketones (Negative) mg/dL Urine Blood (Negative) Urine Nitrite (Negative) Ur Leukocyte Esterase (Negative) Urine RBC (0-2) /HPF Urine WBC (0-5) /HPF Ur Squamous Epith Cells (0-2) /HPF Urine Bacteria (None Seen) Hyaline Casts (0-2) /LPF Salicylates < 5.0 L (15-30) mg/dL Urine Opiates Screen (Not Detect) Urine Fentanyl Screen (Not Detect) Acetaminophen < 1 (<30) mcg/mL Ur Barbiturates Screen (Not Detect) Ur Phencyclidine Scrn (Not Detect) Ur Amphetamines Screen (Not Detect) U Benzodiazepines Scrn (Not Detect) Urine Cocaine Screen (Not Detect) U Marijuana (THC) Screen (Not Detect) Ethyl Alcohol < 10 mg/dL COVID-19 (LANE) Negative (Negative) COVID-19 Clin Com See Note 05/03/22 05/03/22 Range/Units 00:55 00:55 WBC (4.8-10.8) X10*3/uL RBC (4.20-5.50) X10*6/uL Hgb (12.0-16.0) g/dl Hct (37.0-47.0) % MCV (80.0-98.0) fL MCH (27.0-33.0) pg MCHC (31.0-35.0) g/dl RDW (11.0-16.0) % Plt Count (160-400) X10*3/uL MPV (9.4-12.3) fL Immature Gran % (Auto) (0.0-0.4) % Neut % (Auto) (45-73) % Lymph % (Auto) (20-40) % Reagan % (Auto) (2-11) % Eos % (Auto) (0-4) % Baso % (Auto) (0-2) % Lymph # (Auto) (1.2-4.9) X10*3/uL Reagan # (Auto) (0.1-1.2) X10*3/uL Eos # (Auto) (0.0-0.4) X10*3/uL Baso # (Auto) (0.0-0.2) X10*3/uL Abs Immat Gran (auto) (0.00-0.03) X10*3/uL Absolute Neuts (auto) (2.0-8.3) x10*3/uL Absolute Nucleated RBC (0.0-0.012) X10*3/uL Nucleated RBC % (auto) (0.0-0.2) /100WBC Sodium (135-145) mmol/L Potassium (3.3-5.1) mmol/L Chloride (96-108) mmol/L Carbon Dioxide (22-29) mmol/L Anion Gap (12-20) BUN (9-16) mg/dL Creatinine (0.5-1.4) mg/dL Estim Creat Clear Calc Estimated GFR Random Glucose (60-115) mg/dL Calcium (8.4-10.2) mg/dL Total Bilirubin (0.0-1.0) mg/dL Direct Bilirubin (0.0-0.5) mg/dL AST (5-31) U/L ALT (0-31) U/L Alkaline Phosphatase (39-117) U/L Total Protein (6.5-8.0) g/dL Albumin (3.5-5.0) g/dL Urine Color Yellow Urine Appearance Cloudy Urine pH 5.5 (5.0-9.0) Ur Specific [place] 1.010 (1.005-1.025) Urine Protein Negative (Neg-Trace) mg/dL Urine Glucose (UA) Negative (Negative) mg/dL Urine Ketones Negative (Negative) mg/dL Urine Blood Small (1+) H (Negative) Urine Nitrite Negative (Negative) Ur Leukocyte Esterase Large (3+) H (Negative) Urine RBC 0-2 (0-2) /HPF Urine WBC >50 H (0-5) /HPF Ur Squamous Epith Cells 3-5 (0-2) /HPF Urine Bacteria 1+ (None Seen) Hyaline Casts 0-2 (0-2) /LPF Salicylates (15-30) mg/dL Urine Opiates Screen Not Detected (Not Detect) Urine Fentanyl Screen Not Detected (Not Detect) Acetaminophen (<30) mcg/mL Ur Barbiturates Screen Not Detected (Not Detect) Ur Phencyclidine Scrn Not Detected (Not Detect) Ur Amphetamines Screen Not Detected (Not Detect) U Benzodiazepines Scrn Not Detected (Not Detect) Urine Cocaine Screen Not Detected (Not Detect) U Marijuana (THC) Screen Not Detected (Not Detect) Ethyl Alcohol mg/dL COVID-19 (LANE) (Negative) COVID-19 Clin Com Discharge Plan Discharge Clinical Impression: Depression Patient Disposition: Still a Patient Prescriptions: No Action Rexulti 1 mg Tablet 1.5 mg PO DAILY@1700 30 Days Qty: 45 0RF clonidine HCl 0.1 mg tablet 1 tab PO BID PRN (Reason: panic attack) clonazepam 0.5 mg tablet 1 tab PO BID PRN (Reason: anxiety attack) melatonin 3 mg tablet 1 tab PO BEDTIME aspirin 81 mg tablet,delayed release (DR/EC) 1 tab PO BEDTIME trazodone 100 mg tablet 1 tab PO BEDTIME PRN (Reason: insomnia) mirtazapine 15 mg tablet 30 mg PO BEDTIME metoprolol succinate 25 mg tablet extended release 24 hr 0.5 tab PO DAILY hydroxyzine pamoate 25 mg capsule 1 cap PO TID PRN (Reason: anxiety) rosuvastatin 10 mg tablet 1 tab PO BEDTIME
[2022-05-02 13:35] LABS: MANUAL DIFF FLAG NO
[2022-05-02 13:42] LABS: Basophils Absolute Auto 0.1 X10*3/uL (0.0-0.2); Eosinophils Absolute Auto 0.2 X10*3/uL (0.0-0.4); Eosinophils Percent Auto 3.4 % (0-4); Hemoglobin 13.7 g/dl (12.0-16.0); Imm Gran Abs Auto 0.03 X10*3/uL (0.00-0.03); Imm Gran Pct Auto 0.4 % (0.0-0.4); Lymphocytes Absolute Auto 2.1 X10*3/uL (1.2-4.9); Lymphocytes Percent Auto 30.4 % (20-40); Mean Corpuscular HGB Conc 34.3 g/dl (31.0-35.0); Mean Corpuscular Hemoglobin 29.7 pg (27.0-33.0); Mean Corpuscular Volume 86.8 fL (80.0-98.0); Mean Platelet Volume 9.2 fL (9.4-12.3); Monocytes Absolute Auto 0.6 X10*3/uL (0.1-1.2); Monocytes Percent Auto 8.6 % (2-11); Neutrophils Absolute Auto 3.9 x10*3/uL (2.0-8.3); Neutrophils Percent Auto 56.2 % (45-73); Platelet Count 286 X10*3/uL (160-400); Red Blood Count 4.61 X10*6/uL (4.20-5.50); Red Cell Distribution Width 13.6 % (11.0-16.0)
[2022-05-02 14:00] LABS: Alanine Aminotransferase 10 U/L (0-31); Alkaline Phosphatase 57 U/L (39-117); Anion Gap 15 (12-20); Aspartate Amino Transferase 14 U/L (5-31); Bilirubin Direct < 0.2 mg/dL (0.0-0.5); Bilirubin Total 0.3 mg/dL (0.0-1.0); Blood Urea Nitrogen 10 mg/dL (9-16); Calcium 9.7 mg/dL (8.4-10.2); Carbon Dioxide 25 mmol/L (22-29); Chloride 101 mmol/L (96-108); Creatinine Clr Calc Pharmacy 59.8; Estimated Glomerular Filt Rate > 60; Ethanol < 10 mg/dL; Glucose Random 98 mg/dL (60-115); Potassium 4.8 mmol/L (3.3-5.1); Sodium 136 mmol/L (135-145); Total Protein 6.7 g/dL (6.5-8.0)
[2022-05-02 14:05] LABS: COVID-19 Test Negative (Negative)
[2022-05-02 14:13] LABS: Acetaminophen LAB < 1 mcg/mL (<30); Salicylate < 5.0 mg/dL (15-30)
--- NOTE | 2022-05-02 14:50 | MHC.CARE ---
Care Team met with pt in ED 09. Pt stated her is currently at [facility] and resides alone. Pt stated she wants to and will attempt to kill her by overdosing on medications. Pt reported her gave there dtr [employer] debit card to purchase gas, however, it has been used inappropriately as the dtr has used $1300 to $2000 in purchases from [employer], [employer] and special dog food. Care Team filled online with [facility].
[2022-05-02 21:12] VITALS: BP 121/72; PULSE 70; RESP 18; TEMP 36.1; O2SAT 95
[2022-05-02] MEDS: Mirtazapine 30 MG TABLET PO (21:32)
[2022-05-02] MEDS: traZODone HCL 100 MG TABLET PO (21:32)
[2022-05-02] MEDS: clonazePAM 0.5 MG TABLET PO (21:32)
[2022-05-02] MEDS: Melatonin 3 MG TABLET PO (21:32)
--- NOTE | 2022-05-03 | ECG_ITS ---
Test Reason : MED CLEARANCE Blood Pressure : / mmHG Vent. Rate : 076 BPM Atrial Rate : 076 BPM P-R Int : 190 ms QRS Dur : 140 ms QT Int : 444 ms P-R-T Axes : -27 019 093 degrees QTc Int : 499 ms Normal sinus rhythm Left bundle branch block Abnormal ECG When compared with ECG of 26-FEB-2022 19:53, ST more depressed Lateral leads Referred By: Mary Zhang Electronically Signed By:ROSARIO HERR MD
[2022-05-03 00:47] VITALS: BP 127/70; PULSE 69; RESP 16; TEMP 36.4; O2SAT 94
[2022-05-03 01:08] LABS: Appearance Urine Cloudy; Color Urine Yellow; Glucose Urine UA Negative (Negative); Leukocyte Esterase Urine Large (3+) (Negative); Nitrite Urine Negative (Negative); PH 5.5 (5.0-9.0); UMIC TRIGGER UACC YES; Urine Blood Small (1+) (Negative); Urine Ketones Negative (Negative); Urine Protein Negative (Neg-Trace)
[2022-05-03 01:18] LABS: Amphetamine Screen Urine Not Detected (Not Detect); Barbiturates, Urine Not Detected (Not Detect); Benzodiazepines Screen Urine Not Detected (Not Detect); Cannabinoid Screen Urine Not Detected (Not Detect); Cocaine Screen Urine Not Detected (Not Detect); Fentanyl, urine Not Detected (Not Detect); Opiate Screen Urine Not Detected (Not Detect); Phencyclidine Screen Urine Not Detected (Not Detect)
[2022-05-03 01:23] LABS: Bacteria Urine 1+ (None Seen); Hyaline Casts Urine 0-2 /LPF (0-2); RBC Urine 0-2 /HPF (0-2); UACC Culture Trigger YES; WBC Urine >50 /HPF (0-5)
[2022-05-03] MEDS: cloNIDine HCL 0.1 MG TABLET PO ×2 (01:30→20:18)
--- NOTE | 2022-05-03 07:18 | PC.NURSE ---
Patient slept through the night, no distress observed/reported, medication compliant, patient is positive for UTI and she is being treated with ceftin 500 mg BID, Cdiff and GI panel lab order pending day shift RN made aware, dispostion per N is section 12 inpatient bed search, VSS, will continue to monitor.
[2022-05-03] MEDS: Metoprolol Succinate ER 12.5 MG HALFTAB.ER.24H PO (09:25)
--- NOTE | 2022-05-03 10:14 | PC.NURSE ---
PT resting quietly, medication given as documented. No apparent distress, no complaints.
[2022-05-03 11:21] VITALS: BP 153/74; PULSE 69; TEMP 36.6; O2SAT 94
--- NOTE | 2022-05-03 12:03 | PC.NURSE ---
Nurse to nurse given to Joy RN. PT aware of plan.
[2022-05-03 12:51] LABS: Campylobacter Not Detected (Not Detect.); E. coli EAEC Not Detected (Not Detect.); E. coli EPEC Not Detected (Not Detect.); E. coli ETEC Not Detected (Not Detect.); E. coli STEC Not Detected (Not Detect.); Plesiomonas shigelloides Not Detected (Not Detect.); Salmonella Not Detected (Not Detect.); Vibrio Not Detected (Not Detect.); Vibrio Cholerae Not Detected (Not Detect.); Yersinia enterocolitica Not Detected (Not Detect.)
[2022-05-03 12:52] LABS: Adenovirus F 40/41 Not Detected (Not Detect.); Astrovirus Not Detected (Not Detect.); Cryptosporidium Not Detected (Not Detect.); Cyclospora cayetanensis Not Detected (Not Detect.); Entamoeba histolytica Not Detected (Not Detect.); Giardia lamblia Not Detected (Not Detect.); Norovirus GI/GII Not Detected (Not Detect.); Rotavirus A Not Detected (Not Detect.); Sapovirus Not Detected (Not Detect.); Shigella sp./EIEC Not Detected (Not Detect.)
--- NOTE | 2022-05-03 13:39 | PC.NURSE ---
PT reports SI no plan while here, contracted for safety. Denies HI. States feeling very depressed . Meds given as documented. PT in shower at this time.
[2022-05-03 16:37] VITALS: BP 130/72; PULSE 71; RESP 16; TEMP 36.4; O2SAT 93
[2022-05-03] MEDS: Brexpiprazole 1 MG TABLET 1.5 MG PO (17:38)
--- NOTE | 2022-05-03 17:56 | PC.ADMIT ---
Patient admitted to on CV from ED via WC with diagnosis of Major Depressive Disorder. Patient known to this unit from previous admissions. Alert and oriented x4. Patient pleasant and cooperative. Affect is congruent with mood. Patient states she is depressed and wants to to be with her . Her is not yet . Patient endorses feeling overwhelmed at home and unable to attend to ADL's. Patient also endorses feelings of isolation due to having no means to leave the home. Insight, judgement, memory, focus and impulse control appear WNL. Patient is slightly disheveled. Engaged easily in admission process. PMH includes pacemaker, COPD (1 pack a day smoker with no intent to quit), HTN. Patient is being treated for UtI. Patient states her [employer] application is pending and should be in place by May 08, 2022. Patient reports she is compliant with her meds at home but is unable to manage them at this time. Patient also reports services that were put in place for her following last admission didn't work out. Patient resting comfortably in her room at this time.
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
[2022-05-03] MEDS: Melatonin 3 MG TABLET PO (20:17)
[2022-05-03] MEDS: Mirtazapine 30 MG TABLET PO (20:18)
[2022-05-03] MEDS: clonazePAM 0.5 MG TABLET PO (20:18)
[2022-05-03] MEDS: traZODone HCL 100 MG TABLET PO (20:22)
[2022-05-04 06:00] VITALS: BP 140/65; PULSE 64; RESP 17; TEMP 36.6; O2SAT 93
[2022-05-04 08:33] LABS: CDiff Gene PCR POSITIVE (Negative)
[2022-05-04] MEDS: Metoprolol Succinate ER 12.5 MG HALFTAB.ER.24H PO (08:57)
[2022-05-04 09:03] LABS: Alanine Aminotransferase 8 U/L (0-31); Albumin Level 3.9 g/dL (3.5-5.0); Alkaline Phosphatase 59 U/L (39-117); Anion Gap 15 (12-20); Aspartate Amino Transferase 14 U/L (5-31); Bilirubin Total 0.3 mg/dL (0.0-1.0); Blood Urea Nitrogen 10 mg/dL (9-16); Calcium 9.4 mg/dL (8.4-10.2); Carbon Dioxide 23 mmol/L (22-29); Chloride 104 mmol/L (96-108); Cholesterol 310 mg/dL; Creatinine Clr Calc Pharmacy 60.5; Estimated Glomerular Filt Rate > 60; Glucose Fasting 114 mg/dL (60-99); HDL Cholesterol 37 mg/dL; LDL Cholesterol Calculated 242 mg/dl; Potassium 4.5 mmol/L (3.3-5.1); Sodium 137 mmol/L (135-145); Total Protein 6.7 g/dL (6.5-8.0); Triglycerides 158 mg/dL
[2022-05-04] MEDS: clonazePAM 0.5 MG TABLET PO ×2 (09:16→23:29)
[2022-05-04 09:23] LABS: CDiff Toxin Negative (Negative)
[2022-05-04 09:24] LABS: CDIFF Internal ctrl Dots and bkg OK (V)
[2022-05-04] MEDS: cloNIDine HCL 0.1 MG TABLET PO (10:46)
--- NOTE | 2022-05-04 14:15 | P.PNPSI_ITS ---
Subjective Subjective Date of Service: 05/04/22 Reason For Visit: depression Subjective Notes: Conditional Voluntary Interim History: The patient was admitted for suicidal ideation and exacerbation of symptoms in the context of noncompliance of treatment. According to the nursing staff she slept well. The nephrology social worker reported that will try to contact collateral information to find details about her symptoms and circumstances. On interview, the patient reports that she is feeling dysphoric. She came positive to C diff and she will be started on antibiotics. She is aware that she has to be on isolation in the meantime. No side effects with current medications. Mental Status Exam Mental Status Exam Patient Appearance: Well Grooomed Patient Orientation: Person Level of Consciousness: Awake Patient Behavior: Cooperative Mood Description: Withdrawn Affect Description: Constricted Patient Cognition Impaired: Yes Ability to Follow Directions: Good Speech Pattern: Clear Hallucinations: None Delusions: Not Present Thought Process: Distracted Thought Content: positive for [place] Judgement: Fair Diagnostics Vital Signs (24Hr): Vital Signs - 24 hr 05/03/22 16:37 05/04/22 06:00 Temperature 97.5 F 97.8 F Pulse Rate 71 64 Respiratory Rate 16 17 Blood Pressure 130/72 140/65 H Pulse Oximetry 93 93 Oxygen Delivery Method Room Air Room Air BMI result Body Mass Index 24.2 Labs Results: 05/02/22 13:29 05/04/22 07:55 Labs: Laboratory Results - last 48 hr 05/03/22 05/03/22 05/03/22 00:55 00:55 08:17 Sodium Potassium Chloride Carbon Dioxide Anion Gap BUN Creatinine Estim Creat Clear Calc Estimated GFR Fasting Glucose Calcium Total Bilirubin AST ALT Alkaline Phosphatase Total Protein Albumin Triglycerides Cholesterol LDL Cholesterol, Calc HDL Cholesterol Urine Color Yellow Urine Appearance Cloudy Urine pH 5.5 Ur Specific [place] 1.010 Urine Protein Negative Urine Glucose (UA) Negative Urine Ketones Negative Urine Blood Small (1+) H Urine Nitrite Negative Ur Leukocyte Esterase Large (3+) H Urine RBC 0-2 Urine WBC >50 H Ur Squamous Epith Cells 3-5 Urine Bacteria 1+ Hyaline Casts 0-2 Stl C. cayetanensis PCR Not Detected Stool Rotavirus A PCR Not Detected Stl Adenov F 40/41 PCR Not Detected Stool Astrovirus (PCR) Not Detected Stool Campylobacter PCR Not Detected Stool Cryptosporidium PCR Not Detected Stl Sh Tox Pr E STEC PCR Not Detected Stool E coli O157 PCR Not applicable Stl Enterotoxigenic E PCR Not Detected Stool EPEC (PCR) Not Detected Stool EAEC (PCR) Not Detected Stl E. histolytica PCR Not Detected Stool Giardia Lamblia PCR Not Detected Stl P. shigelloides PCR Not Detected Stool Salmonella PCR Not Detected Stool Sapovirus (PCR) Not Detected Stl Shigella/EIEC PCR Not Detected St Y.enterocolitica PCR Not Detected Stool Vibrio (PCR) Not Detected Stl Vibrio cholerae PCR Not Detected Stl Norovirus GI/GII PCR Not Detected Urine Opiates Screen Not Detected Urine Fentanyl Screen Not Detected Ur Barbiturates Screen Not Detected Ur Phencyclidine Scrn Not Detected Ur Amphetamines Screen Not Detected U Benzodiazepines Scrn Not Detected Urine Cocaine Screen Not Detected U Marijuana (THC) Screen Not Detected C. difficile Tox B Gene C. difficile Toxin A&B C. difficile Interpret 05/03/22 05/04/22 Unknown 07:55 Sodium 137 Potassium 4.5 Chloride 104 Carbon Dioxide 23 Anion Gap 15 BUN 10 Creatinine 0.78 Estim Creat Clear Calc 60.5 Estimated GFR > 60 Fasting Glucose 114 H Calcium 9.4 Total Bilirubin 0.3 AST 14 ALT 8 Alkaline Phosphatase 59 Total Protein 6.7 Albumin 3.9 Triglycerides 158 Cholesterol 310 D LDL Cholesterol, Calc 242 HDL Cholesterol 37 D Urine Color Urine Appearance Urine pH Ur Specific [place] Urine Protein Urine Glucose (UA) Urine Ketones Urine Blood Urine Nitrite Ur Leukocyte Esterase Urine RBC Urine WBC Ur Squamous Epith Cells Urine Bacteria Hyaline Casts Stl C. cayetanensis PCR Stool Rotavirus A PCR Stl Adenov F 40/41 PCR Stool Astrovirus (PCR) Stool Campylobacter PCR Stool Cryptosporidium PCR Stl Sh Tox Pr E STEC PCR Stool E coli O157 PCR Stl Enterotoxigenic E PCR Stool EPEC (PCR) Stool EAEC (PCR) Stl E. histolytica PCR Stool Giardia Lamblia PCR Stl P. shigelloides PCR Stool Salmonella PCR Stool Sapovirus (PCR) Stl Shigella/EIEC PCR St Y.enterocolitica PCR Stool Vibrio (PCR) Stl Vibrio cholerae PCR Stl Norovirus GI/GII PCR Urine Opiates Screen Urine Fentanyl Screen Ur Barbiturates Screen Ur Phencyclidine Scrn Ur Amphetamines Screen U Benzodiazepines Scrn Urine Cocaine Screen U Marijuana (THC) Screen C. difficile Tox B Gene POSITIVE A* C. difficile Toxin A&B Negative C. difficile Interpret SEE NOTE Medications Medications Current Medications Acetaminophen (Acetaminophen 325 Mg Tablet) 650 mg PO Q6H PRN PRN Reason: Headache/Pain Mild Scale (1-3) Al Hydroxide/Mg Hydroxide (Magnesium Hydrox/Alum Hydrox 30 Ml Oral.Susp) 30 ml PO Q6H PRN PRN Reason: Heartburn/Nausea Brexpiprazole (Brexpiprazole 1 Mg Tablet) 1.5 mg PO DAILY@1700 [facility] Last Admin: 05/03/22 17:38 Dose: 1.5 mg Cefuroxime Axetil (Cefuroxime Axetil 500 Mg Tablet) 500 mg PO Q12H [facility] Last Admin: 05/04/22 01:28 Dose: 500 mg Clonazepam (Clonazepam 0.5 Mg Tablet) 0.5 mg PO BID PRN PRN Reason: anxiety attack Last Admin: 05/04/22 09:16 Dose: 0.5 mg Clonidine HCl (Clonidine Hcl 0.1 Mg Tablet) 0.1 mg PO BID PRN; Protocol PRN Reason: panic attack Last Admin: 05/04/22 10:46 Dose: 0.1 mg Hydroxyzine HCl (Hydroxyzine Hcl 25 Mg Tablet) 25 mg PO TID PRN PRN Reason: anxiety Hydroxyzine HCl (Hydroxyzine Hcl 25 Mg Tablet) 25 mg PO Q6H PRN PRN Reason: Anxiety Magnesium Hydroxide (Milk Of Magnesia 30 Ml Oral.Susp) 30 ml PO DAILY PRN PRN Reason: Constipation Melatonin (Melatonin 3 Mg Tablet) 3 mg PO BEDTIME [facility] Last Admin: 05/03/22 20:17 Dose: 3 mg Metoprolol Succinate (Metoprolol Succinate Er 12.5 Mg Halftab.Er.24h) 12.5 mg P O DAILY [facility]; Protocol Last Admin: 05/04/22 08:57 Dose: 12.5 mg Mirtazapine (Mirtazapine 30 Mg Tablet) 30 mg PO BEDTIME [facility] Last Admin: 05/03/22 20:18 Dose: 30 mg Pharmacy Consult (Consult Rx Perform Med Rec) 1 each MISCELLANE ONCE PRN PRN Reason: Consult order Trazodone HCl (Trazodone Hcl 100 Mg Tablet) 100 mg PO BEDTIME PRN PRN Reason: Insomnia Last Admin: 05/03/22 20:22 Dose: 100 mg Allergies Allergies Allergy/AdvReac Type Severity Reaction Status Date / Time adhesive AdvReac Unknown Verified 04/21/21 23:21 aspirin AdvReac Unknown Verified 04/21/21 23:20 epinephrine AdvReac Unknown Verified 04/21/21 23:21 Assessment & Plan Assessment & Plan (1) MDD (major depressive disorder), recurrent episode, moderate: Status: Acute Code(s): F33.1 - Major depressive disorder, recurrent, moderate (2) PTSD (post-traumatic stress disorder): Status: Acute Code(s): F43.10 - Post-traumatic stress disorder, unspecified Plan Katheryn is a 76 y.o. female with a history of MDD recurrent and PTSD. She presen teetee to [facility] ED on 05/02/22 worsening depression over the last few weeks and SI with plan to overdose on her home medications. She has been non-adherent with some of her meds, ran out of her rexulti a week ago. Hx of recent discharge from [facility]. She has not been attending to her ADLs. Precipitating factors include that her is dying and she is not sure if she will be able to see him prior to his passing. She is isolated and has limited supports. In the ED pt was found to have a UTI. Plan: Will continue home meds, pt contemplating [facility] facility at this time as she has not been attending to ADLs or managing her medications, has limited supports. Q15 min safety checks, CV Monitor response to medications. Monitor for safety in the milieu. Discharge on stabilization. Patient seen. Chart reviewed. Discussed with team. Obtain collateral contact info?as needed I spent __20____ minutes with the patient and/or on the patient floor today, greater than?50% of which was spent counseling/coordinating care. Reason for contiued inpatient stay Substantial Risk for: inability to function, rapid decompensation and med/psych decompensation
--- NOTE | 2022-05-04 15:08 | HO.PM.IMCN ---
History of Present Illness Data of Consult Service Date: 05/04/22 Primary Care Provider: Unknown Physician HPI Reason for consult: Positive C dif 76-year-old female with a history of depression, PTSD, COPD who was admitted through [facility] with depression and SI. Patient has history of total colectomy and some baseline diarrhea but over the last few weeks has been having incerasing diarrhea at times more than 10 a day. Stool sample is now positive for C dif. She is not hypotensive and recent electrolytes were within normal. It is of note that she has been treated for UTI with Cefuroxime. No known prior history of C dif Review of Systems Review of Systems: Gen: no fever Resp: no sob, no cough CV: no chest, no NEGRON, no leg edema GI: No n/v, no abd pain Neuro: No confusion Yes all other systems are reviewed and are negative [facility] Medical History (Updated 05/04/22 @ 15:43 by Balta Kern MD) C. difficile diarrhea COPD (chronic obstructive pulmonary disease) Depression Essential hypertension Hyperlipidemia Mitral valve prolapse Prediabetes PTSD (post-traumatic stress disorder) TIA (transient ischemic attack) Tobacco abuse Surgical History History of colectomy History of parathyroidectomy Social History Household Members: None Housing: Apartment Do you presently have visiting nurse or other home services: No Alcohol intake: never Patient Tobacco Use Status: Current everyday Tobacco user Tobacco use type: Cigarette Cigarette Packs Per Day: 0.1 Cigarettes Per Day: 6 Years Smoked: 20 Smoked in Last 30 Days: Yes e-Cigarette/Vaping Use: Currently Using Patient Interested in Nicotine Replacement: No Patient Given Instructions on How to Stop Smoking: No Second Hand Smoke Exposure: No Use of substances other than those prescribed or required for medical reasons: No Substance Use Type: Prescription Drugs and Caffiene Have you been hit, kicked, punched, or otherwise hurt by someone within the past year? If so, by whom?: No Do you feel safe in your current relationship?: Yes Is there a partner from a previous relationship who is making you feel unsafe now?: No Are you made to feel afraid or neglected: No Advance Directives: Yes Advance Directives on File: Yes Advance Directives Date on File: 02/08/22 Healthcare Proxy: No Guardian: No Do you have thoughts of harming others: None Do you have a plan to hurt others: No Plan Recently lost weight without trying: Yes How much weight loss: 2-13 pounds Eating poorly because of decreased appetite: Yes Nutrition screen score: 4 Nutrition Risks: No Nutritional Risk Patient : No : No Poor oral hygiene: No service: No Sexual orientation: Straight/Heterosexual Meds Allergies Allergy/AdvReac Type Severity Reaction Status Date / Time adhesive AdvReac Unknown Verified 04/21/21 23:21 aspirin AdvReac Unknown Verified 04/21/21 23:20 epinephrine AdvReac Unknown Verified 04/21/21 23:21 Active Medications: Current Medications Acetaminophen (Acetaminophen 325 Mg Tablet) 650 mg PO Q6H PRN PRN Reason: Headache/Pain Mild Scale (1-3) Al Hydroxide/Mg Hydroxide (Magnesium Hydrox/Alum Hydrox 30 Ml Oral.Susp) 30 ml PO Q6H PRN PRN Reason: Heartburn/Nausea Brexpiprazole (Brexpiprazole 1 Mg Tablet) 1.5 mg PO DAILY@1700 [facility] Last Admin: 05/03/22 17:38 Dose: 1.5 mg Cefuroxime Axetil (Cefuroxime Axetil 500 Mg Tablet) 500 mg PO Q12H [facility] Last Admin: 05/04/22 14:53 Dose: 500 mg Clonazepam (Clonazepam 0.5 Mg Tablet) 0.5 mg PO BID PRN PRN Reason: anxiety attack Last Admin: 05/04/22 09:16 Dose: 0.5 mg Clonidine HCl (Clonidine Hcl 0.1 Mg Tablet) 0.1 mg PO BID PRN; Protocol PRN Reason: panic attack Last Admin: 05/04/22 10:46 Dose: 0.1 mg Hydroxyzine HCl (Hydroxyzine Hcl 25 Mg Tablet) 25 mg PO TID PRN PRN Reason: anxiety Hydroxyzine HCl (Hydroxyzine Hcl 25 Mg Tablet) 25 mg PO Q6H PRN PRN Reason: Anxiety Magnesium Hydroxide (Milk Of Magnesia 30 Ml Oral.Susp) 30 ml PO DAILY PRN PRN Reason: Constipation Melatonin (Melatonin 3 Mg Tablet) 3 mg PO BEDTIME [facility] Last Admin: 05/03/22 20:17 Dose: 3 mg Metoprolol Succinate (Metoprolol Succinate Er 12.5 Mg Halftab.Er.24h) 12.5 mg PO DAILY [facility]; Protocol Last Admin: 05/04/22 08:57 Dose: 12.5 mg Mirtazapine (Mirtazapine 30 Mg Tablet) 30 mg PO BEDTIME [facility] Last Admin: 05/03/22 20:18 Dose: 30 mg Pharmacy Consult (Consult Rx Perform Med Rec) 1 each MISCELLANE ONCE PRN PRN Reason: Consult order Trazodone HCl (Trazodone Hcl 100 Mg Tablet) 100 mg PO BEDTIME PRN PRN Reason: Insomnia Last Admin: 05/03/22 20:22 Dose: 100 mg Home Medications Medication Instructions Recorded Confirmed Last Taken Type aspirin 81 mg tablet,delayed 1 tab PO BEDTIME 05/02/22 05/02/22 Unknown History release clonazepam 0.5 mg tablet 1 tab PO BID PRN anxiety attack 05/02/22 05/02/22 Unknown History clonidine HCl 0.1 mg tablet 1 tab PO BID PRN panic attack 05/02/22 05/02/22 Unknown History hydroxyzine pamoate 25 mg capsule 1 cap PO TID PRN anxiety 05/02/22 05/02/22 Unknown History melatonin 3 mg tablet 1 tab PO BEDTIME 05/02/22 05/02/22 Unknown History metoprolol succinate 25 mg 0.5 tab PO DAILY 05/02/22 05/02/22 Unknown History tablet,extended release 24 hr mirtazapine 15 mg tablet 30 mg PO BEDTIME 05/02/22 05/02/22 Unknown History rosuvastatin 10 mg tablet 1 tab PO BEDTIME 05/02/22 05/02/22 Unknown History trazodone 100 mg tablet 1 tab PO BEDTIME PRN insomnia 05/02/22 05/02/22 Unknown History Physical Exam Vital Signs and Narrative: Vital Signs: Last Vital Signs Temp 97.8 F 05/04/22 06:00 Pulse 64 05/04/22 06:00 Resp 17 05/04/22 06:00 BP 140/65 H 05/04/22 06:00 Pulse Ox 93 05/04/22 06:00 O2 Del Method 05/04/22 06:00 BMI result Body Mass Index 24.2 Const: Other: Constitutional: Alert, in no distress Mental Status: Oriented to person, place and time. Eyes: Pupils are equal, round and reactive to light. Ear, Nose and Throat: Oropharynx clear, mucous membranes moist. Ears and nose without eformities. Respiratory: Clear to auscultation. No wheezing, rales or rhonchi. Cardiovascular: S1 S2 regular. No murmurs, rubs or gallops. Gastrointestinal: Abdomen soft, non-tender, non-distended. Normal bowel sounds.? Neurologic: Cranial nerves II-XII grossly intact. No focal neurological deficits. Moves all extremities spontaneously.? Skin: No rashes or lesions.? Musculoskeletal: No cyanosis or clubbing. Psychiatric: Normal mood and affect? Results Labs CBC and Chem 7: 05/02/22 13:29 05/04/22 07:55 Labs: Laboratory Results - last 24 hr 05/03/22 05/04/22 Unknown 07:55 Anion Gap 15 Estim Creat Clear Calc 60.5 Estimated GFR > 60 Fasting Glucose 114 H Calcium 9.4 Total Bilirubin 0.3 AST 14 ALT 8 Alkaline Phosphatase 59 Total Protein 6.7 Albumin 3.9 Triglycerides 158 Cholesterol 310 D LDL Cholesterol, Calc 242 HDL Cholesterol 37 D C. difficile Tox B Gene POSITIVE A* C. difficile Toxin A&B Negative C. difficile Interpret SEE NOTE Assessment and Plan (1) C. difficile diarrhea: Status: Acute Plan 76 yo F with COPD, HTN, hx TIA, hx hyperCA/hyperPTH s/p PTX, hx total colectomies with eventual reanastomosis for multiple precancerous polyps, s/p PPM for arrhythmia, prediabetes, depression, and PTSD admitted to [facility] for Depression with SI and now found to hav C dif # C dif associated diarrhea--Present on admission -Start oral Vancomycin 250 mg QID -Contact precaution and Hand hygien (should use water and soap to watch hand before exiting room # h/o COPD - continue inhalers # HTN - continue metoprolol # HLD # hx TIA - continue statin #UTI--reduce Ceftin to 250 bid and stop aft 3 days # depression/PTSD - medications as per psychiatry team
[2022-05-04] MEDS: vancomycin HCL 125 MG CAPSULE 250 MG PO ×2 (17:33→23:22)
[2022-05-04] MEDS: Brexpiprazole 1 MG TABLET 1.5 MG PO (17:33)
[2022-05-04 18:00] VITALS: BP 119/94; PULSE 72; RESP 16; TEMP 36.6; O2SAT 95
[2022-05-04] MEDS: Melatonin 3 MG TABLET PO (21:33)
[2022-05-04] MEDS: Mirtazapine 30 MG TABLET PO (21:33)
[2022-05-04] MEDS: traZODone HCL 100 MG TABLET PO ×2 (21:33→23:31)
[2022-05-05] MEDS: vancomycin HCL 125 MG CAPSULE 250 MG PO ×4 (05:20→21:50)
[2022-05-05 06:00] VITALS: BP 119/54; PULSE 78; RESP 16; TEMP 36.6; O2SAT 96
[2022-05-05] MEDS: Metoprolol Succinate ER 12.5 MG HALFTAB.ER.24H PO (09:04)
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
[2022-05-05] MEDS: cloNIDine HCL 0.1 MG TABLET PO (14:45)
[2022-05-05] MEDS: Brexpiprazole 1 MG TABLET 1.5 MG PO (17:21)
[2022-05-05 18:00] VITALS: BP 137/75; PULSE 66; RESP 18; TEMP 36.4; O2SAT 92
[2022-05-05] MEDS: traZODone HCL 100 MG TABLET PO (21:50)
[2022-05-05] MEDS: clonazePAM 0.5 MG TABLET PO (21:50)
[2022-05-05] MEDS: hydrOXYzine HCL 25 MG TABLET PO (21:51)
[2022-05-05] MEDS: Melatonin 3 MG TABLET PO (21:51)
[2022-05-05] MEDS: Mirtazapine 30 MG TABLET PO (21:51)
[2022-05-06 06:00] VITALS: BP 141/73; PULSE 64; RESP 17; TEMP 36.5; O2SAT 94
[2022-05-06] MEDS: vancomycin HCL 125 MG CAPSULE 250 MG PO ×3 (06:07→17:49)
[2022-05-06] MEDS: Metoprolol Succinate ER 12.5 MG HALFTAB.ER.24H PO (08:21)
--- NOTE | 2022-05-06 12:01 | P.PNPSI_ITS ---
Subjective Subjective Date of Service: 05/06/22 Reason For Visit: depression Subjective Notes: Conditional Voluntary Interim History: Pt continues to report feeling depressed, hopeless, overhwelmed by fact that of 66 years is dying and she is not by his side. Pt reports passive SI, no plan or intent. Per staff she slept through the night. No behavioral co ncerns. Medication Compliance: Yes Side effects from medications: No Review of Systems Review of Systems Gen: no fever Resp: no sob, no cough CV: no chest, no NEGRON, no leg edema GI: No n/v, no abd pain Neuro: No confusion Yes all other systems are reviewed and are negative Constitutional: Reports no additional constitutional complaints, Denies body ache(s), Denies chills, Denies fever(s), Denies headache(s) and Denies weakness Eyes: Reports no additional eye complaints and Denies change in vision Reports system reviewed and no additional complaints, except as documented, Denies dizziness, Denies headache(s), Denies nasal congestion, Denies nasal discharge and Denies neck pain Cardiovascular: Reports no additional cardiovascular complaints, Denies chest pain, Denies leg edema and Denies dyspnea Respiratory: Reports no additional respiratory complaints, Denies cough and Denies dyspnea Gastrointestinal: Reports no additional gastrointestinal complaints, Denies abdominal pain, Denies diarrhea, Denies nausea and Denies vomiting Musculoskeletal: Reports no additional musculoskeletal complaints, Denies back pain, Denies arthralgias, Denies joint swelling, Denies neck pain, Denies numbness and Denies tingling Skin/Breast: Reports system reviewed and no additional complaints, except as docu and Denies rash Reports system reviewed and no additional complaints, except as documented, Denies Abnormal speech present, Denies dizziness, Denies headache(s), Denies numbness, Denies tingling and Denies weakness Psychiatric: Reports depression, Denies visual hallucinations, Denies hallucinations, Denies homicidal ideation and Reports suicidal ideation Mental Status Exam Mental Status Exam Narrative: Appearance: wearing hospital gown, fair hygiene in NAD Behavior:cooperative psychomotor: no agitation or retardation noted Speech: clear, normal rate/rhythm/volume, spontaneous Thought process:linear Thought content:no signs of psychosis, worried and saddened by thought of losing her of 66 years. Mood: depressed Affect: blunted SI:passive HI:none VH/AH:none Delusions:none Insight/judgment: fair x 2. Memory/cog: alert, oriented x 3. not formally tested. Diagnostics Vital Signs (24Hr): Vital Signs - 24 hr 05/06/22 18:00 Temperature 96.7 F L Pulse Rate 73 Respiratory Rate 18 Blood Pressure 129/75 Pulse Oximetry 94 Oxygen Delivery Method Room Air BMI result Body Mass Index 24.2 Labs Results: 05/02/22 13:29 05/04/22 07:55 Medications Medications Current Medications Acetaminophen (Acetaminophen 325 Mg Tablet) 650 mg PO Q6H PRN PRN Reason: Headache/Pain Mild Scale (1-3) Al Hydroxide/Mg Hydroxide (Magnesium Hydrox/Alum Hydrox 30 Ml Oral.Susp) 30 ml PO Q6H PRN PRN Reason: Heartburn/Nausea Brexpiprazole (Brexpiprazole 1 Mg Tablet) 1.5 mg PO DAILY@1700 [facility] Last Admin: 05/06/22 16:36 Dose: 1.5 mg Cefuroxime Axetil (Cefuroxime Axetil 500 Mg Tablet) 500 mg PO Q12H [facility] Last Admin: 05/06/22 20:50 Dose: 500 mg Clonazepam (Clonazepam 0.5 Mg Tablet) 0.5 mg PO BID PRN PRN Reason: anxiety attack Last Admin: 05/06/22 20:49 Dose: 0.5 mg Clonidine HCl (Clonidine Hcl 0.1 Mg Tablet) 0.1 mg PO BID PRN; Protocol PRN Reason: panic attack Last Admin: 05/06/22 16:36 Dose: 0.1 mg Hydroxyzine HCl (Hydroxyzine Hcl 25 Mg Tablet) 25 mg PO TID PRN PRN Reason: anxiety Last Admin: 05/06/22 20:50 Dose: 25 mg Hydroxyzine HCl (Hydroxyzine Hcl 25 Mg Tablet) 25 mg PO Q6H PRN PRN Reason: Anxiety Magnesium Hydroxide (Milk Of Magnesia 30 Ml Oral.Susp) 30 ml PO DAILY PRN PRN Reason: Constipation Melatonin (Melatonin 3 Mg Tablet) 3 mg PO BEDTIME [facility] Last Admin: 05/06/22 20:49 Dose: 3 mg Metoprolol Succinate (Metoprolol Succinate Er 12.5 Mg Halftab.Er.24h) 12.5 mg PO DAILY [facility]; Protocol Last Admin: 05/06/22 08:21 Dose: 12.5 mg Mirtazapine (Mirtazapine 30 Mg Tablet) 30 mg PO BEDTIME [facility] Last Admin: 05/06/22 20:49 Dose: 30 mg Pharmacy Consult (Consult Rx Perform Med Rec) 1 each MISCELLANE ONCE PRN PRN Reason: Consult order Trazodone HCl (Trazodone Hcl 100 Mg Tablet) 100 mg PO BEDTIME PRN PRN Reason: Insomnia Last Admin: 05/06/22 20:50 Dose: 100 mg Vancomycin HCl (Vancomycin Hcl 125 Mg Capsule) 250 mg PO Q6H [facility] Last Admin: 05/07/22 05:55 Dose: 250 mg Allergies Allergies Allergy/AdvReac Type Severity Reaction Status Date / Time adhesive AdvReac Unknown Verified 04/21/21 23:21 aspirin AdvReac Unknown Verified 04/21/21 23:20 epinephrine AdvReac Unknown Verified 04/21/21 23:21 Assessment & Plan Assessment & Plan (1) MDD (major depressive disorder), recurrent episode, moderate: Status: Acute Code(s): F33.1 - Major depressive disorder, recurrent, moderate Plan 76 yo F with COPD, HTN, hx TIA, hx hyperCA/hyperPTH s/p PTX, hx total colectomies with eventual reanastomosis for multiple precancerous polyps, s/p PPM for arrhythmia, prediabetes, depression, and PTSD admitted to [facility] for Depression with SI and now found to hav C dif # C dif associated diarrhea--Present on admission -Start oral Vancomycin 250 mg QID -Contact precaution and Hand hygien (should use water and soap to watch hand before exiting room # h/o COPD - continue inhalers # HTN - continue metoprolol # HLD # hx TIA - continue statin #UTI--reduce Ceftin to 250 bid and stop aft 3 days # depression/PTSD - medications as per psychiatry team PSYCH 05/05 continue current medications. 05/06 continue tx. I spent minutes with the patient and/or on the patient floor today, greater than?50% of which was spent counseling/coordinating care. Reason for contiued inpatient stay Substantial Risk for: harm to self
[2022-05-06] MEDS: Brexpiprazole 1 MG TABLET 1.5 MG PO (16:36)
[2022-05-06] MEDS: cloNIDine HCL 0.1 MG TABLET PO (16:36)
[2022-05-06 18:00] VITALS: BP 129/75; PULSE 73; RESP 18; TEMP 35.9; O2SAT 94
[2022-05-06] MEDS: Melatonin 3 MG TABLET PO (20:49)
[2022-05-06] MEDS: clonazePAM 0.5 MG TABLET PO (20:49)
[2022-05-06] MEDS: Mirtazapine 30 MG TABLET PO (20:49)
[2022-05-06] MEDS: hydrOXYzine HCL 25 MG TABLET PO (20:50)
[2022-05-06] MEDS: traZODone HCL 100 MG TABLET PO (20:50)
[2022-05-07] MEDS: vancomycin HCL 125 MG CAPSULE 250 MG PO ×4 (00:30→17:07)
[2022-05-07 06:00] VITALS: BP 144/65; PULSE 63; RESP 16; TEMP 36.6; O2SAT 92
[2022-05-07] MEDS: Metoprolol Succinate ER 12.5 MG HALFTAB.ER.24H PO (10:30)
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
[2022-05-07] MEDS: Brexpiprazole 1 MG TABLET 1.5 MG PO (16:15)
[2022-05-07 18:00] VITALS: BP 158/73; PULSE 84; RESP 16; TEMP 36.1; O2SAT 93
[2022-05-07] MEDS: Melatonin 3 MG TABLET PO (20:58)
[2022-05-07] MEDS: clonazePAM 0.5 MG TABLET PO (20:59)
[2022-05-07] MEDS: traZODone HCL 100 MG TABLET PO (20:59)
[2022-05-07] MEDS: hydrOXYzine HCL 25 MG TABLET PO (20:59)
[2022-05-07] MEDS: Mirtazapine 30 MG TABLET PO (20:59)
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
[2022-05-08] MEDS: vancomycin HCL 125 MG CAPSULE 250 MG PO ×5 (00:15→22:41)
[2022-05-08 08:30] VITALS: BP 116/76; PULSE 94; RESP 16; TEMP 36.2; O2SAT 94
[2022-05-08] MEDS: Metoprolol Succinate ER 12.5 MG HALFTAB.ER.24H PO (10:01)
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
[2022-05-08] MEDS: Brexpiprazole 1 MG TABLET 1.5 MG PO (17:47)
[2022-05-08 22:00] VITALS: BP 214/110; PULSE 90; RESP 16; TEMP 36.2; O2SAT 95
[2022-05-08 22:05] VITALS: BP 215/104; PULSE 90; RESP 16; TEMP 36.2; O2SAT 95
[2022-05-08] MEDS: clonazePAM 0.5 MG TABLET PO ×2 (22:20→22:54)
[2022-05-08] MEDS: Mirtazapine 30 MG TABLET PO (22:21)
[2022-05-08] MEDS: Melatonin 3 MG TABLET PO (22:21)
[2022-05-08] MEDS: hydrOXYzine HCL 25 MG TABLET PO (22:40)
[2022-05-08] MEDS: traZODone HCL 100 MG TABLET PO (22:41)
[2022-05-08 22:58] VITALS: BP 153/87; PULSE 90; RESP 16
[2022-05-08 23:42] VITALS: BP 124/64; PULSE 82; RESP 16
[2022-05-09] MEDS: cloNIDine HCL 0.2 MG TABLET PO (00:08)
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
[2022-05-09 06:00] VITALS: BP 97/68; PULSE 83; RESP 14; TEMP 36.4; O2SAT 95
[2022-05-09] MEDS: vancomycin HCL 125 MG CAPSULE 250 MG PO ×4 (07:38→23:52)
[2022-05-09] MEDS: Metoprolol Succinate ER 12.5 MG HALFTAB.ER.24H PO (08:01)
--- NOTE | 2022-05-09 11:44 | HO.PSYCHPN ---
Subjective Subjective Date of Service: 05/09/22 Reason For Visit: depression Subjective Notes: Conditional Voluntary Interim History: The nursing staff reported the patient slept well. She still contact isolation due to Clostridium diff easily, currently on vancomycin since May 06. The nursing staff reported the patient was apologetic after the day before yesterday she threw a tray to the staff because she was angry and frustrated. The staff reported that the patient has stated that she can get a gun when she is discharged and kill herself. She had been provocative and stating that she could have easy access to gun. On interview, we discussed that she still on contact precautions, we have spoken with infection control to seek when we can discontinue the contact precautions and they advised 24 hours without diarrhea. Today she had a loose stool at AM. She asked me if she can go visit her who is currently admitted in the ICU of this hospital I will ask the nursing harvest supervisor about this but I doubt that the visit will be feasible. Mental Status Exam Mental Status Exam Patient Appearance: Appropriate Patient Orientation: Person and Situation Level of Consciousness: Awake Patient Behavior: Guarded Mood Description: Withdrawn Affect Description: Calm Patient Cognition Impaired: Yes Ability to Follow Directions: Good Speech Pattern: Clear Hallucinations: None Delusions: Paranoid Ideation Thought Process: Distracted Thought Content: positive for Intact Judgement: Fair Diagnostics Vital Signs (24Hr): Vital Signs - 24 hr 05/08/22 22:00 05/08/22 22:05 05/08/22 22:58 Temperature 97.1 F 97.1 F Pulse Rate 90 90 90 Respiratory Rate 16 16 16 Blood Pressure 214/110 H 215/104 H 153/87 H Pulse Oximetry 95 95 Oxygen Delivery Method Room Air Room Air 05/08/22 23:42 05/09/22 06:00 Temperature 97.6 F Pulse Rate 82 83 Respiratory Rate 16 14 Blood Pressure 124/64 97/68 Pulse Oximetry 95 Oxygen Delivery Method Room Air BMI result Body Mass Index 24.2 Labs Results: 05/02/22 13:29 05/04/22 07:55 Medications Medications Current Medications Acetaminophen (Acetaminophen 325 Mg Tablet) 650 mg PO Q6H PRN PRN Reason: Headache/Pain Mild Scale (1-3) Al Hydroxide/Mg Hydroxide (Magnesium Hydrox/Alum Hydrox 30 Ml Oral.Susp) 30 ml PO Q6H PRN PRN Reason: Heartburn/Nausea Brexpiprazole (Brexpiprazole 1 Mg Tablet) 1.5 mg PO DAILY@1700 [facility] Last Admin: 05/08/22 17:47 Dose: 1.5 mg Cefuroxime Axetil (Cefuroxime Axetil 500 Mg Tablet) 500 mg PO Q12H [facility] Last Admin: 05/09/22 08:01 Dose: 500 mg Clonazepam (Clonazepam 0.5 Mg Tablet) 0.5 mg PO BID PRN PRN Reason: Anxiety Last Admin: 05/08/22 22:20 Dose: 0.5 mg Clonidine HCl (Clonidine Hcl 0.1 Mg Tablet) 0.1 mg PO BID PRN; Protocol PRN Reason: panic attack Last Admin: 05/06/22 16:36 Dose: 0.1 mg Hydroxyzine HCl (Hydroxyzine Hcl 25 Mg Tablet) 25 mg PO TID PRN PRN Reason: anxiety Last Admin: 05/08/22 22:40 Dose: 25 mg Hydroxyzine HCl (Hydroxyzine Hcl 25 Mg Tablet) 25 mg PO Q6H PRN PRN Reason: Anxiety Magnesium Hydroxide (Milk Of Magnesia 30 Ml Oral.Susp) 30 ml PO DAILY PRN PRN Reason: Constipation Melatonin (Melatonin 3 Mg Tablet) 3 mg PO BEDTIME [facility] Last Admin: 05/08/22 22:21 Dose: 3 mg Metoprolol Succinate (Metoprolol Succinate Er 12.5 Mg Halftab.Er.24h) 12.5 mg PO DAILY [facility]; Protocol Last Admin: 05/09/22 08:01 Dose: 12.5 mg Mirtazapine (Mirtazapine 30 Mg Tablet) 30 mg PO BEDTIME [facility] Last Admin: 05/08/22 22:21 Dose: 30 mg Pharmacy Consult (Consult Rx Perform Med Rec) 1 each MISCELLANE ONCE PRN PRN Reason: Consult order Trazodone HCl (Trazodone Hcl 100 Mg Tablet) 100 mg PO BEDTIME PRN PRN Reason: Insomnia Last Admin: 05/08/22 22:41 Dose: 100 mg Vancomycin HCl (Vancomycin Hcl 125 Mg Capsule) 250 mg PO Q6H [facility] Last Admin: 05/09/22 11:43 Dose: 250 mg Allergies Allergies Allergy/AdvReac Type Severity Reaction Status Date / Time adhesive AdvReac Unknown Verified 04/21/21 23:21 aspirin AdvReac Unknown Verified 04/21/21 23:20 epinephrine AdvReac Unknown Verified 04/21/21 23:21 Assessment & Plan Assessment & Plan (1) MDD (major depressive disorder), recurrent episode, moderate: Status: Acute Code(s): F33.1 - Major depressive disorder, recurrent, moderate Plan 76 yo F with COPD, HTN, hx TIA, hx hyperCA/hyperPTH s/p PTX, hx total colectomies with eventual reanastomosis for multiple precancerous polyps, s/p PPM for arrhythmia, prediabetes, depression, and PTSD admitted [facility] for Depression with SI and now found to hav C dif # C dif associated diarrhea--Present on admission -Start oral Vancomycin 250 mg QID -Contact precaution and Hand hygien (should use water and soap to watch hand before exiting room # h/o COPD - continue inhalers # HTN - continue metoprolol # HLD # hx TIA - continue statin #UTI--reduce Ceftin to 250 bid and stop aft 3 days # depression/PTSD - medications as per psychiatry team PSYCH Continue with current antidepressants and mood stabilizers. Contact precautions until tomorrow. Last diarrhea today AM. I spent ___20___ minutes with the patient and/or on the patient floor today, greater than?50% of which was spent counseling/coordinating care. Reason for contiued inpatient stay Substantial Risk for: inability to function, rapid decompensation and med/psych decompensation
[2022-05-09] MEDS: Brexpiprazole 1 MG TABLET 1.5 MG PO (16:49)
[2022-05-09 18:00] VITALS: BP 141/64; PULSE 67; RESP 16; TEMP 36.6; O2SAT 94
[2022-05-09] MEDS: traZODone HCL 100 MG TABLET PO (21:35)
[2022-05-09] MEDS: clonazePAM 0.5 MG TABLET PO (21:35)
[2022-05-09] MEDS: Mirtazapine 30 MG TABLET PO (21:35)
[2022-05-09] MEDS: Melatonin 3 MG TABLET PO (21:36)
[2022-05-10] MEDS: vancomycin HCL 125 MG CAPSULE 250 MG PO ×4 (06:10→23:28)
[2022-05-10] MEDS: Metoprolol Succinate ER 12.5 MG HALFTAB.ER.24H PO (07:43)
--- NOTE | 2022-05-10 13:08 | HO.PSYCHPN ---
Subjective Subjective Date of Service: 05/10/22 Reason For Visit: depression Subjective Notes: Conditional Voluntary Interim History: The nursing staff reported the patient looks much better. Medically, she had only 2 loose stools and her appetite is well. She slept well last night. Infections control came and took out of contact precautions. On interview the patient reports that she is feeling sad, she knows that her is admitted in the intensive care unit of this hospital and we will try to arrange the possibility to visit her because he is terminal. On interview the patient denies new symptoms she is dysphoric but redirectable. Mental Status Exam Mental Status Exam Patient Appearance: Well Grooomed Patient Orientation: Person and Situation Level of Consciousness: Awake Patient Behavior: Cooperative Mood Description: Constricted Affect Description: Calm Patient Cognition Impaired: Yes Ability to Follow Directions: Good Speech Pattern: Clear Hallucinations: None Delusions: Not Present Thought Process: Linear Thought Content: positive for [place] and positive for Circumstantial Judgement: Fair Diagnostics Vital Signs (24Hr): Vital Signs - 24 hr 05/09/22 18:00 Temperature 97.8 F Pulse Rate 67 Respiratory Rate 16 Blood Pressure 141/64 H Pulse Oximetry 94 Oxygen Delivery Method Room Air BMI result Body Mass Index 24.2 Labs Results: 05/02/22 13:29 05/04/22 07:55 Medications Medications Current Medications Acetaminophen (Acetaminophen 325 Mg Tablet) 650 mg PO Q6H PRN PRN Reason: Headache/Pain Mild Scale (1-3) Al Hydroxide/Mg Hydroxide (Magnesium Hydrox/Alum Hydrox 30 Ml Oral.Susp) 30 ml PO Q6H PRN PRN Reason: Heartburn/Nausea Brexpiprazole (Brexpiprazole 1 Mg Tablet) 1.5 mg PO DAILY@1700 [facility] Last Admin: 05/09/22 16:49 Dose: 1.5 mg Cefuroxime Axetil (Cefuroxime Axetil 500 Mg Tablet) 500 mg PO Q12H [facility] Last Admin: 05/10/22 07:43 Dose: 500 mg Clonazepam (Clonazepam 0.5 Mg Tablet) 0.5 mg PO BID PRN PRN Reason: Anxiety Last Admin: 05/09/22 21:35 Dose: 0.5 mg Clonidine HCl (Clonidine Hcl 0.1 Mg Tablet) 0.1 mg PO BID PRN; Protocol PRN Reason: panic attack Last Admin: 05/06/22 16:36 Dose: 0.1 mg Hydroxyzine HCl (Hydroxyzine Hcl 25 Mg Tablet) 25 mg PO TID PRN PRN Reason: anxiety Last Admin: 05/08/22 22:40 Dose: 25 mg Hydroxyzine HCl (Hydroxyzine Hcl 25 Mg Tablet) 25 mg PO Q6H PRN PRN Reason: Anxiety Magnesium Hydroxide (Milk Of Magnesia 30 Ml Oral.Susp) 30 ml PO DAILY PRN PRN Reason: Constipation Melatonin (Melatonin 3 Mg Tablet) 3 mg PO BEDTIME [facility] Last Admin: 05/09/22 21:36 Dose: 3 mg Metoprolol Succinate (Metoprolol Succinate Er 12.5 Mg Halftab.Er.24h) 12.5 mg PO DAILY [facility]; Protocol Last Admin: 05/10/22 07:43 Dose: 12.5 mg Mirtazapine (Mirtazapine 30 Mg Tablet) 30 mg PO BEDTIME [facility] Last Admin: 05/09/22 21:35 Dose: 30 mg Pharmacy Consult (Consult Rx Perform Med Rec) 1 each MISCELLANE ONCE PRN PRN Reason: Consult order Trazodone HCl (Trazodone Hcl 100 Mg Tablet) 100 mg PO BEDTIME PRN PRN Reason: Insomnia Last Admin: 05/09/22 21:35 Dose: 100 mg Vancomycin HCl (Vancomycin Hcl 125 Mg Capsule) 250 mg PO Q6H [facility] Last Admin: 05/10/22 12:02 Dose: 250 mg Allergies Allergies Allergy/AdvReac Type Severity Reaction Status Date / Time adhesive AdvReac Unknown Verified 04/21/21 23:21 aspirin AdvReac Unknown Verified 04/21/21 23:20 epinephrine AdvReac Unknown Verified 04/21/21 23:21 Assessment & Plan Assessment & Plan (1) MDD (major depressive disorder), recurrent episode, moderate: Status: Acute Code(s): F33.1 - Major depressive disorder, recurrent, moderate Plan 76 yo F with COPD, HTN, hx TIA, hx hyperCA/hyperPTH s/p PTX, hx total colectomies with eventual reanastomosis for multiple precancerous polyps, s/p PPM for arrhythmia, prediabetes, depression, and PTSD admitted [facility] for Depression with SI and now found to hav C dif # C dif associated diarrhea--Present on admission -Start oral Vancomycin 250 mg QID -Contact precaution and Hand hygien (should use water and soap to watch hand before exiting room # h/o COPD - continue inhalers # HTN - continue metoprolol # HLD # hx TIA - continue statin #UTI--reduce Ceftin to 250 bid and stop aft 3 days # depression/PTSD - medications as per psychiatry team PSYCH Continue with current antidepressants and mood stabilizers. Contact precautions relieved today by Infectious control. I spent ___20___ minutes with the patient and/or on the patient floor today, greater than?50% of which was spent counseling/coordinating care. Reason for contiued inpatient stay Substantial Risk for: inability to function, rapid decompensation and med/psych decompensation
[2022-05-10] MEDS: Brexpiprazole 1 MG TABLET 1.5 MG PO (17:13)
[2022-05-10 18:00] VITALS: BP 116/71; PULSE 75; RESP 19; TEMP 36.4; O2SAT 94
[2022-05-10] MEDS: LORazepam 1 MG TABLET 2 MG PO (19:59)
[2022-05-10] MEDS: Melatonin 3 MG TABLET PO (20:00)
[2022-05-10] MEDS: Mirtazapine 30 MG TABLET PO (20:00)
[2022-05-11] MEDS: traZODone HCL 100 MG TABLET PO (00:52)
[2022-05-11] MEDS: vancomycin HCL 125 MG CAPSULE 250 MG PO ×3 (06:16→17:29)
[2022-05-11 08:00] VITALS: BP 102/60; PULSE 107; RESP 16; O2SAT 93
[2022-05-11] MEDS: Metoprolol Succinate ER 12.5 MG HALFTAB.ER.24H PO (08:27)
--- NOTE | 2022-05-11 13:52 | P.PNPSI_ITS ---
Subjective Subjective Date of Service: 05/11/22 Reason For Visit: depression Subjective Notes: Conditional Voluntary Interim History: The nursing staff reported the patient could not sleep well even though that we prescribed last night lorazepam 2 mg. She is sedated distraught since her is very sick. According to the medical team he is terminal at this point. She reports anxiety and depression 04/16. On interview the patient was very grateful that we were allowed to have the visited she felt even relieved that she could see him. She is sure that he is going to tonight and she feels very sad. No active suicidal ideation at this moment. Mental Status Exam Mental Status Exam Patient Appearance: Appropriate Patient Orientation: Person and Situation Level of Consciousness: Awake Patient Behavior: Guarded and Passive Mood Description: Depressed Affect Description: Constricted Patient Cognition Impaired: Yes Ability to Follow Directions: Good Speech Pattern: Clear Hallucinations: None Delusions: Not Present Thought Process: Distracted Thought Content: positive for Circumstantial Judgement: Poor Diagnostics Vital Signs (24Hr): Vital Signs - 24 hr 05/10/22 18:00 05/11/22 08:00 Temperature 97.5 F Pulse Rate 75 107 H Respiratory Rate 19 16 Blood Pressure 116/71 102/60 Pulse Oximetry 94 93 Oxygen Delivery Method Room Air Room Air BMI result Body Mass Index 24.2 Labs Results: 05/02/22 13:29 05/04/22 07:55 Medications Medications Current Medications Acetaminophen (Acetaminophen 325 Mg Tablet) 650 mg PO Q6H PRN PRN Reason: Headache/Pain Mild Scale (1-3) Al Hydroxide/Mg Hydroxide (Magnesium Hydrox/Alum Hydrox 30 Ml Oral.Susp) 30 ml PO Q6H PRN PRN Reason: Heartburn/Nausea Brexpiprazole (Brexpiprazole 1 Mg Tablet) 1.5 mg PO DAILY@1700 [facility] Last Admin: 05/10/22 17:13 Dose: 1.5 mg Cefuroxime Axetil (Cefuroxime Axetil 500 Mg Tablet) 500 mg PO Q12H [facility] Last Admin: 05/11/22 08:27 Dose: 500 mg Clonazepam (Clonazepam 0.5 Mg Tablet) 0.5 mg PO BID PRN PRN Reason: Anxiety Last Admin: 05/09/22 21:35 Dose: 0.5 mg Clonidine HCl (Clonidine Hcl 0.1 Mg Tablet) 0.1 mg PO BID PRN; Protocol PRN Reason: panic attack Last Admin: 05/06/22 16:36 Dose: 0.1 mg Hydroxyzine HCl (Hydroxyzine Hcl 25 Mg Tablet) 25 mg PO TID PRN PRN Reason: anxiety Last Admin: 05/08/22 22:40 Dose: 25 mg Hydroxyzine HCl (Hydroxyzine Hcl 25 Mg Tablet) 25 mg PO Q6H PRN PRN Reason: Anxiety Magnesium Hydroxide (Milk Of Magnesia 30 Ml Oral.Susp) 30 ml PO DAILY PRN PRN Reason: Constipation Melatonin (Melatonin 3 Mg Tablet) 3 mg PO BEDTIME [facility] Last Admin: 05/10/22 20:00 Dose: 3 mg Metoprolol Succinate (Metoprolol Succinate Er 12.5 Mg Halftab.Er.24h) 12.5 mg PO DAILY [facility]; Protocol Last Admin: 05/11/22 08:27 Dose: 12.5 mg Mirtazapine (Mirtazapine 30 Mg Tablet) 30 mg PO BEDTIME [facility] Last Admin: 05/10/22 20:00 Dose: 30 mg Pharmacy Consult (Consult Rx Perform Med Rec) 1 each MISCELLANE ONCE PRN PRN Reason: Consult order Trazodone HCl (Trazodone Hcl 100 Mg Tablet) 100 mg PO BEDTIME PRN PRN Reason: Insomnia Last Admin: 05/11/22 00:52 Dose: 100 mg Vancomycin HCl (Vancomycin Hcl 125 Mg Capsule) 250 mg PO Q6H [facility] Last Admin: 05/11/22 11:49 Dose: 250 mg Allergies Allergies Allergy/AdvReac Type Severity Reaction Status Date / Time adhesive AdvReac Unknown Verified 04/21/21 23:21 aspirin AdvReac Unknown Verified 04/21/21 23:20 epinephrine AdvReac Unknown Verified 04/21/21 23:21 Assessment & Plan Assessment & Plan (1) MDD (major depressive disorder), recurrent episode, moderate: Status: Acute Code(s): F33.1 - Major depressive disorder, recurrent, moderate Plan 76 yo F with COPD, HTN, hx TIA, hx hyperCA/hyperPTH s/p PTX, hx total colectomies with eventual reanastomosis for multiple precancerous polyps, s/p PPM for arrhythmia, prediabetes, depression, and PTSD admitted to [facility] for Depression with SI and now found to hav C dif # C dif associated diarrhea--Present on admission -Start oral Vancomycin 250 mg QID -Contact precaution and Hand hygien (should use water and soap to watch hand before exiting room # h/o COPD - continue inhalers # HTN - continue metoprolol # HLD # hx TIA - continue statin #UTI--reduce Ceftin to 250 bid and stop aft 3 days # depression/PTSD - medications as per psychiatry team PSYCH Continue with current antidepressants and mood stabilizers. Contact precautions relieved today by Infectious control. Increase Remeron up to 45 mg p.o. q.h.s. on 05/11. Start Klonopin 2 mg p.o. q.h.s. on 05/11 to target insomnia and anxiety. I spent ___20___ minutes with the patient and/or on the patient floor today, greater than?50% of which was spent counseling/coordinating care. Reason for contiued inpatient stay Substantial Risk for: inability to function, rapid decompensation and med/psych decompensation
[2022-05-11] MEDS: Brexpiprazole 1 MG TABLET 1.5 MG PO (16:51)
[2022-05-11 18:00] VITALS: BP 140/67; PULSE 78; RESP 16; TEMP 37; O2SAT 95
[2022-05-11] MEDS: clonazePAM 1 MG TABLET 2 MG PO (19:47)
[2022-05-11] MEDS: Mirtazapine 15 MG TABLET 45 MG PO (19:48)
[2022-05-11] MEDS: Melatonin 3 MG TABLET PO (19:49)
[2022-05-12] MEDS: vancomycin HCL 125 MG CAPSULE 250 MG PO ×3 (06:23→16:51)
[2022-05-12 07:30] VITALS: BP 178/91; PULSE 78; RESP 16; TEMP 36; O2SAT 92
[2022-05-12] MEDS: Metoprolol Succinate ER 12.5 MG HALFTAB.ER.24H PO (08:28)
--- NOTE | 2022-05-12 11:49 | HO.PSYCHPN ---
Subjective Subjective Date of Service: 05/12/22 Reason For Visit: depression Interim History: The nursing staff report patient slept 8 hours last night.Remeron up to 45 mg p.o. q.h.s. on 05/11 with good effect and Klonopin 2 mg p.o. q.h.s. started on 05/11 to target insomnia and anxiet with good effect Pt still reports high depression She reports anxiety and depression 04/16. Pt was able to see this week and was grateful that we were allowed to have the visited she feels relieved that she could see him. She is sure that he is going to soon and she feels very sad. No active suicidal ideation at this moment. Medication Compliance: Yes Side effects from medications: No Review of Systems Acute medical concerns: No Medical Review of Systems: unchanged Review of Systems Review of Systems Gen: no fever Resp: no sob, no cough CV: no chest, no NEGRON, no leg edema GI: No n/v, no abd pain Neuro: No confusion Yes all other systems are reviewed and are negative Constitutional: Reports no additional constitutional complaints, Denies body ache(s), Denies chills, Denies fever(s), Denies headache(s) and Denies weakness Eyes: Reports no additional eye complaints and Denies change in vision Reports system reviewed and no additional complaints, except as documented, Denies dizziness, Denies headache(s), Denies nasal congestion, Denies nasal discharge and Denies neck pain Cardiovascular: Reports no additional cardiovascular complaints, Denies chest pain, Denies leg edema and Denies dyspnea Respiratory: Reports no additional respiratory complaints, Denies cough and Denies dyspnea Gastrointestinal: Reports no additional gastrointestinal complaints, Denies abdominal pain, Denies diarrhea, Denies nausea and Denies vomiting Musculoskeletal: Reports no additional musculoskeletal complaints, Denies back pain, Denies arthralgias, Denies joint swelling, Denies neck pain, Denies numbness and Denies tingling Skin/Breast: Reports system reviewed and no additional complaints, except as docu and Denies rash Reports system reviewed and no additional complaints, except as documented, Denies Abnormal speech present, Denies dizziness, Denies headache(s), Denies numbness, Denies tingling and Denies weakness Psychiatric: Reports depression, Denies visual hallucinations, Denies hallucinations, Denies homicidal ideation and Reports suicidal ideation Mental Status Exam Mental Status Exam Narrative: Appearance: wearing hospital gown, fair hygiene in NAD Behavior:cooperative psychomotor: no agitation or retardation noted Speech: clear, normal rate/rhythm/volume, spontaneous Thought process:linear Thought content:no signs of psychosis, worried and saddened by thought of losing her of 67 years. Mood: depressed Affect: blunted SI:passive HI:none VH/AH:none Delusions:none Insight/judgment: fair x 2. Memory/cog: alert, oriented x 3. not formally tested. Patient Appearance: Appropriate Patient Orientation: Person and Situation Level of Consciousness: Awake Patient Behavior: Guarded and Passive Mood Description: Depressed Affect Description: Constricted Patient Cognition Impaired: Yes Ability to Follow Directions: Good Speech Pattern: Clear Diagnostics Vital Signs (24Hr): Vital Signs - 24 hr 05/11/22 18:00 05/12/22 07:30 Temperature 98.6 F 96.8 F Pulse Rate 78 78 Respiratory Rate 16 16 Blood Pressure 140/67 H 178/91 H Pulse Oximetry 95 92 Oxygen Delivery Method Room Air Room Air BMI result Body Mass Index 24.2 Labs Results: 05/02/22 13:29 05/04/22 07:55 Medications Medications Current Medications Acetaminophen (Acetaminophen 325 Mg Tablet) 650 mg PO Q6H PRN PRN Reason: Headache/Pain Mild Scale (1-3) Al Hydroxide/Mg Hydroxide (Magnesium Hydrox/Alum Hydrox 30 Ml Oral.Susp) 30 ml PO Q6H PRN PRN Reason: Heartburn/Nausea Brexpiprazole (Brexpiprazole 1 Mg Tablet) 1.5 mg PO DAILY@1700 [facility] Last Admin: 05/11/22 16:51 Dose: 1.5 mg Cefuroxime Axetil (Cefuroxime Axetil 500 Mg Tablet) 500 mg PO Q12H [facility] Last Admin: 05/12/22 08:28 Dose: 500 mg Clonazepam (Clonazepam 0.5 Mg Tablet) 0.5 mg PO BID PRN PRN Reason: Anxiety Last Admin: 05/09/22 21:35 Dose: 0.5 mg Clonazepam (Clonazepam 1 Mg Tablet) 2 mg PO BEDTIME [facility] Last Admin: 05/11/22 19:47 Dose: 2 mg Clonidine HCl (Clonidine Hcl 0.1 Mg Tablet) 0.1 mg PO BID PRN; Protocol PRN Reason: panic attack Last Admin: 05/06/22 16:36 Dose: 0.1 mg Hydroxyzine HCl (Hydroxyzine Hcl 25 Mg Tablet) 25 mg PO Q6H PRN PRN Reason: Anxiety Magnesium Hydroxide (Milk Of Magnesia 30 Ml Oral.Susp) 30 ml PO DAILY PRN PRN Reason: Constipation Melatonin (Melatonin 3 Mg Tablet) 3 mg PO BEDTIME [facility] Last Admin: 05/11/22 19:49 Dose: 3 mg Metoprolol Succinate (Metoprolol Succinate Er 12.5 Mg Halftab.Er.24h) 12.5 mg PO DAILY [facility]; Protocol Last Admin: 05/12/22 08:28 Dose: 12.5 mg Mirtazapine (Mirtazapine 15 Mg Tablet) 45 mg PO BEDTIME [facility] Last Admin: 05/11/22 19:48 Dose: 45 mg Trazodone HCl (Trazodone Hcl 100 Mg Tablet) 100 mg PO BEDTIME PRN PRN Reason: Insomnia Last Admin: 05/11/22 00:52 Dose: 100 mg Vancomycin HCl (Vancomycin Hcl 125 Mg Capsule) 250 mg PO Q6H [facility] Last Admin: 05/12/22 06:23 Dose: 250 mg Allergies Allergies Allergy/AdvReac Type Severity Reaction Status Date / Time adhesive AdvReac Unknown Verified 04/21/21 23:21 aspirin AdvReac Unknown Verified 04/21/21 23:20 epinephrine AdvReac Unknown Verified 04/21/21 23:21 Assessment & Plan Assessment & Plan (1) MDD (major depressive disorder), recurrent episode, moderate: Status: Acute Code(s): F33.1 - Major depressive disorder, recurrent, moderate Plan 76 yo F with COPD, HTN, hx TIA, hx hyperCA/hyperPTH s/p PTX, hx total colectomies with eventual reanastomosis for multiple precancerous polyps, s/p PPM for arrhythmia, prediabetes, depression, and PTSD admitted to [facility] for Depression with SI and now found to hav C dif # C dif associated diarrhea--Present on admission -Start oral Vancomycin 250 mg QID -Contact precaution and Hand hygien (should use water and soap to watch hand before exiting room # h/o COPD - continue inhalers # HTN - continue metoprolol # HLD # hx TIA - continue statin #UTI--reduce Ceftin to 250 bid and stop aft 3 days # depression/PTSD - medications as per psychiatry team PSYCH Continue with current antidepressants and mood stabilizers. Contact precautions discontinued Remeron up to 45 mg p.o. q.h.s. on 05/11 with good effect Klonopin 2 mg p.o. q.h.s. started on 05/11 to target insomnia and anxiet with good effect I spent ___10___ minutes with the patient and/or on the patient floor today, greater than?50% of which was spent counseling/coordinating care. Reason for contiued inpatient stay Substantial Risk for: harm to self, inability to function and rapid decompensation
[2022-05-12] MEDS: clonazePAM 0.5 MG TABLET PO (14:30)
[2022-05-12] MEDS: Brexpiprazole 1 MG TABLET 1.5 MG PO (16:51)
[2022-05-12 18:00] VITALS: BP 134/73; PULSE 77; RESP 20; TEMP 36.8; O2SAT 93
[2022-05-12] MEDS: Mirtazapine 15 MG TABLET 45 MG PO (20:18)
[2022-05-12] MEDS: Melatonin 3 MG TABLET PO (20:18)
[2022-05-12] MEDS: clonazePAM 1 MG TABLET 2 MG PO (20:18)
[2022-05-13 06:00] VITALS: BP 150/67; PULSE 59; RESP 18; TEMP 36.7; O2SAT 94
[2022-05-13] MEDS: vancomycin HCL 125 MG CAPSULE 250 MG PO ×3 (06:14→16:51)
[2022-05-13] MEDS: Metoprolol Succinate ER 12.5 MG HALFTAB.ER.24H PO (08:28)
[2022-05-13] MEDS: hydrOXYzine HCL 25 MG TABLET PO (14:34)
--- NOTE | 2022-05-13 16:17 | P.PNPSI_ITS ---
Subjective Subjective Date of Service: 05/13/22 Reason For Visit: depression Interim History: The nursing staff report patient slept 8 hours last night. She is visiting with on medical floor and aware he is dying. She is sad and distressed at times. says she is going to go back to visist but then does. Remeron up to 45 mg p.o. q.h.s. on 05/11 with good effect and Klonopin 2 mg p.o. q.h.s. started on 05/11 to target insomnia and anxiety with good effect. Pt still reports high d epression She reports anxiety and depression 04/16. Pt denies active suicidal ideation at this moment. Medication Compliance: Yes Side effects from medications: No Attending Groups: Intermittent Review of Systems Acute medical concerns: No Review of Systems Review of Systems Gen: no fever Resp: no sob, no cough CV: no chest, no NEGRON, no leg edema GI: No n/v, no abd pain Neuro: No confusion Yes all other systems are reviewed and are negative Constitutional: Reports no additional constitutional complaints, Denies body ache(s), Denies chills, Denies fever(s), Denies headache(s) and Denies weakness Eyes: Reports no additional eye complaints and Denies change in vision Reports system reviewed and no additional complaints, except as documented, Denies dizziness, Denies headache(s), Denies nasal congestion, Denies nasal d ischarge and Denies neck pain Cardiovascular: Reports no additional cardiovascular complaints, Denies chest pain, Denies leg edema and Denies dyspnea Respiratory: Reports no additional respiratory complaints, Denies cough and Denies dyspnea Gastrointestinal: Reports no additional gastrointestinal complaints, Denies abdominal pain, Denies diarrhea, Denies nausea and Denies vomiting Musculoskeletal: Reports no additional musculoskeletal complaints, Denies back pain, Denies arthralgias, Denies joint swelling, Denies neck pain, Denies numbness and Denies tingling Skin/Breast: Reports system reviewed and no additional complaints, except as docu and Denies rash Reports system reviewed and no additional complaints, except as documented, Denies Abnormal speech present, Denies dizziness, Denies headache(s), Denies numbness, Denies tingling and Denies weakness Psychiatric: Reports depression, Denies visual hallucinations, Denies hallucinations, Denies homicidal ideation and Reports suicidal ideation Mental Status Exam Mental Status Exam Narrative: Appearance: wearing hospital gown, fair hygiene in NAD Behavior:cooperative psychomotor: no agitation or retardation noted Speech: clear, normal rate/rhythm/volume, spontaneous Thought process:linear Thought content:no signs of psychosis, worried and saddened by thought of losing her of 67 years. Mood: depressed Affect: blunted SI:passive HI:none VH/AH:none Delusions:none Insight/judgment: fair x 2. Memory/cog: alert, oriented x 3. not formally tested. Patient Appearance: Appropriate Patient Orientation: Person and Situation Level of Consciousness: Awake Patient Behavior: Guarded and Passive Mood Description: Depressed Affect Description: Constricted Patient Cognition Impaired: Yes Ability to Follow Directions: Good Speech Pattern: Clear Diagnostics Vital Signs (24Hr): Vital Signs - 24 hr 05/12/22 18:00 05/13/22 06:00 Temperature 98.3 F 98.1 F Pulse Rate 77 59 Respiratory Rate 20 18 Blood Pressure 134/73 150/67 H Pulse Oximetry 93 94 Oxygen Delivery Method Room Air Room Air BMI result Body Mass Index 24.2 Labs Results: 05/02/22 13:29 05/04/22 07:55 Medications Medications Current Medications Acetaminophen (Acetaminophen 325 Mg Tablet) 650 mg PO Q6H PRN PRN Reason: Headache/Pain Mild Scale (1-3) Al Hydroxide/Mg Hydroxide (Magnesium Hydrox/Alum Hydrox 30 Ml Oral.Susp) 30 ml PO Q6H PRN PRN Reason: Heartburn/Nausea Brexpiprazole (Brexpiprazole 1 Mg Tablet) 1.5 mg PO DAILY@1700 [facility] Last Admin: 05/12/22 16:51 Dose: 1.5 mg Cefuroxime Axetil (Cefuroxime Axetil 500 Mg Tablet) 500 mg PO Q12H [facility] Last Admin: 05/13/22 08:29 Dose: 500 mg Clonazepam (Clonazepam 1 Mg Tablet) 2 mg PO BEDTIME [facility] Last Admin: 05/12/22 20:18 Dose: 2 mg Clonidine HCl (Clonidine Hcl 0.1 Mg Tablet) 0.1 mg PO BID PRN; Protocol PRN Reason: panic attack Last Admin: 05/06/22 16:36 Dose: 0.1 mg Hydroxyzine HCl (Hydroxyzine Hcl 25 Mg Tablet) 25 mg PO Q6H PRN PRN Reason: Anxiety Last Admin: 05/13/22 14:34 Dose: 25 mg Magnesium Hydroxide (Milk Of Magnesia 30 Ml Oral.Susp) 30 ml PO DAILY PRN PRN Reason: Constipation Melatonin (Melatonin 3 Mg Tablet) 3 mg PO BEDTIME [facility] Last Admin: 05/12/22 20:18 Dose: 3 mg Metoprolol Succinate (Metoprolol Succinate Er 12.5 Mg Halftab.Er.24h) 12.5 mg PO DAILY [facility]; Protocol Last Admin: 05/13/22 08:28 Dose: 12.5 mg Mirtazapine (Mirtazapine 15 Mg Tablet) 45 mg PO BEDTIME [facility] Last Admin: 05/12/22 20:18 Dose: 45 mg Trazodone HCl (Trazodone Hcl 100 Mg Tablet) 100 mg PO BEDTIME PRN PRN Reason: Insomnia Last Admin: 05/11/22 00:52 Dose: 100 mg Vancomycin HCl (Vancomycin Hcl 125 Mg Capsule) 250 mg PO Q6H [facility] Last Admin: 05/13/22 12:03 Dose: 250 mg Allergies Allergies Allergy/AdvReac Type Severity Reaction Status Date / Time adhesive AdvReac Unknown Verified 04/21/21 23:21 aspirin AdvReac Unknown Verified 04/21/21 23:20 epinephrine AdvReac Unknown Verified 04/21/21 23:21 Assessment & Plan Assessment & Plan (1) MDD (major depressive disorder), recurrent episode, moderate: Status: Acute Code(s): F33.1 - Major depressive disorder, recurrent, moderate Plan 76 yo F with COPD, HTN, hx TIA, hx hyperCA/hyperPTH s/p PTX, hx total colectomies with eventual reanastomosis for multiple precancerous polyps, s/p PPM for arrhythmia, prediabetes, depression, and PTSD admitted to [facility] for Depression with SI and now found to hav C dif # C dif associated diarrhea--Present on admission -Start oral Vancomycin 250 mg QID -Contact precaution and Hand hygien (should use water and soap to watch hand before exiting room # h/o COPD - continue inhalers # HTN - continue metoprolol # HLD # hx TIA - continue statin #UTI--reduce Ceftin to 250 bid and stop aft 3 days # depression/PTSD - medications as per psychiatry team PSYCH Continue with current treatment plan: Remeron up to 45 mg p.o. q.h.s. on 05/11 with good effect Klonopin 2 mg p.o. q.h.s. started on 05/11 to target insomnia and anxiet with good effect I spent ___10___ minutes with the patient and/or on the patient floor today, greater than?50% of which was spent counseling/coordinating care. Guardian/Caregiver educated on: therapeutic strategies Informed Consent: understands and further education needed Reason for contiued inpatient stay Substantial Risk for: harm to self and rapid decompensation
[2022-05-13] MEDS: Brexpiprazole 1 MG TABLET 1.5 MG PO (16:51)
[2022-05-13 18:00] VITALS: BP 145/72; PULSE 93; RESP 14; TEMP 36.2; O2SAT 95
[2022-05-13] MEDS: cloNIDine HCL 0.1 MG TABLET PO (18:55)
[2022-05-13] MEDS: Mirtazapine 15 MG TABLET 45 MG PO (20:15)
[2022-05-13] MEDS: Melatonin 3 MG TABLET PO (20:15)
[2022-05-13] MEDS: clonazePAM 1 MG TABLET 2 MG PO (20:16)
[2022-05-14] MEDS: vancomycin HCL 125 MG CAPSULE 250 MG PO ×4 (01:39→17:11)
[2022-05-14 06:00] VITALS: BP 123/73; PULSE 60; RESP 16; TEMP 36.7; O2SAT 96
[2022-05-14] MEDS: Metoprolol Succinate ER 12.5 MG HALFTAB.ER.24H PO (08:56)
--- NOTE | 2022-05-14 11:28 | HO.PSYCHPN ---
Subjective Subjective Date of Service: 05/14/22 Reason For Visit: depression Subjective Notes: Conditional Voluntary Interim History: The nursing staff reported the patient remains depressed and anxious, her still alive and she had been visit today frequently. So far her appetite is for and she could sleep at night. She continue taking antibiotics for UTI and Clostridium difficile day. On interview the patient reports that she still dysphoric but no active suicidal ideation. Unsure of what it will be of her after the passing of her . Mental Status Exam Mental Status Exam Patient Appearance: Well Grooomed Patient Orientation: Person and Situation Level of Consciousness: Awake Patient Behavior: Guarded and Passive Mood Description: Withdrawn Affect Description: Constricted Patient Cognition Impaired: Yes Ability to Follow Directions: Good Speech Pattern: Clear Hallucinations: None Delusions: Not Present Thought Process: Distracted Thought Content: positive for [place] and positive for Circumstantial Judgement: Fair Diagnostics Vital Signs (24Hr): Vital Signs - 24 hr 05/13/22 18:00 Temperature 97.1 F Pulse Rate 93 Respiratory Rate 14 Blood Pressure 145/72 H Pulse Oximetry 95 Oxygen Delivery Method Room Air BMI result Body Mass Index 24.2 Labs Results: 05/02/22 13:29 05/04/22 07:55 Medications Medications Current Medications Acetaminophen (Acetaminophen 325 Mg Tablet) 650 mg PO Q6H PRN PRN Reason: Headache/Pain Mild Scale (1-3) Al Hydroxide/Mg Hydroxide (Magnesium Hydrox/Alum Hydrox 30 Ml Oral.Susp) 30 ml PO Q6H PRN PRN Reason: Heartburn/Nausea Brexpiprazole (Brexpiprazole 1 Mg Tablet) 1.5 mg PO DAILY@1700 [facility] Last Admin: 05/13/22 16:51 Dose: 1.5 mg Cefuroxime Axetil (Cefuroxime Axetil 500 Mg Tablet) 500 mg PO Q12H [facility] Last Admin: 05/14/22 08:56 Dose: 500 mg Clonazepam (Clonazepam 1 Mg Tablet) 2 mg PO BEDTIME [facility] Last Admin: 05/13/22 20:16 Dose: 2 mg Clonidine HCl (Clonidine Hcl 0.1 Mg Tablet) 0.1 mg PO BID PRN; Protocol PRN Reason: panic attack Last Admin: 05/13/22 18:55 Dose: 0.1 mg Hydroxyzine HCl (Hydroxyzine Hcl 25 Mg Tablet) 25 mg PO Q6H PRN PRN Reason: Anxiety Last Admin: 05/13/22 14:34 Dose: 25 mg Magnesium Hydroxide (Milk Of Magnesia 30 Ml Oral.Susp) 30 ml PO DAILY PRN PRN Reason: Constipation Melatonin (Melatonin 3 Mg Tablet) 3 mg PO BEDTIME [facility] Last Admin: 05/13/22 20:15 Dose: 3 mg Metoprolol Succinate (Metoprolol Succinate Er 12.5 Mg Halftab.Er.24h) 12.5 mg PO DAILY [facility]; Protocol Last Admin: 05/14/22 08:56 Dose: 12.5 mg Mirtazapine (Mirtazapine 15 Mg Tablet) 45 mg PO BEDTIME [facility] Last Admin: 05/13/22 20:15 Dose: 45 mg Trazodone HCl (Trazodone Hcl 100 Mg Tablet) 100 mg PO BEDTIME PRN PRN Reason: Insomnia Last Admin: 05/11/22 00:52 Dose: 100 mg Vancomycin HCl (Vancomycin Hcl 125 Mg Capsule) 250 mg PO Q6H [facility] Last Admin: 05/14/22 05:53 Dose: 250 mg Allergies Allergies Allergy/AdvReac Type Severity Reaction Status Date / Time adhesive AdvReac Unknown Verified 04/21/21 23:21 aspirin AdvReac Unknown Verified 04/21/21 23:20 epinephrine AdvReac Unknown Verified 04/21/21 23:21 Assessment & Plan Assessment & Plan (1) MDD (major depressive disorder), recurrent episode, moderate: Status: Acute Code(s): F33.1 - Major depressive disorder, recurrent, moderate Plan 76 yo F with COPD, HTN, hx TIA, hx hyperCA/hyperPTH s/p PTX, hx total colectomies with eventual reanastomosis for multiple precancerous polyps, s/p PPM for arrhythmia, prediabetes, depression, and PTSD admitted to [facility] for Depression with SI and now found to hav C dif # C dif associated diarrhea--Present on admission -Start oral Vancomycin 250 mg QID -Contact precaution and Hand hygien (should use water and soap to watch hand before exiting room # h/o COPD - continue inhalers # HTN - continue metoprolol # HLD # hx TIA - continue statin #UTI--reduce Ceftin to 250 bid and stop aft 3 days # depression/PTSD - medications as per psychiatry team PSYCH Continue with current treatment plan: Remeron up to 45 mg p.o. q.h.s. on 05/11 with good effect Klonopin 2 mg p.o. q.h.s. started on 05/11 to target insomnia and anxiet with good effect I spent ___20___ minutes with the patient and/or on the patient floor today, greater than?50% of which was spent counseling/coordinating care. Reason for contiued inpatient stay Substantial Risk for: inability to function, rapid decompensation and med/psych decompensation
[2022-05-14] MEDS: Brexpiprazole 1 MG TABLET 1.5 MG PO (16:01)
[2022-05-14] MEDS: Acetaminophen 325 MG TABLET 650 MG PO (16:01)
[2022-05-14 20:00] VITALS: BP 135/65; PULSE 71; RESP 18; TEMP 36; O2SAT 95
[2022-05-14] MEDS: Mirtazapine 15 MG TABLET 45 MG PO (20:32)
[2022-05-14] MEDS: Melatonin 3 MG TABLET PO (20:33)
[2022-05-14] MEDS: clonazePAM 1 MG TABLET 2 MG PO (20:33)
[2022-05-14] MEDS: traZODone HCL 100 MG TABLET PO (20:36)
[2022-05-15 06:00] VITALS: BP 120/76; PULSE 91; RESP 17; TEMP 36; O2SAT 95
[2022-05-15] MEDS: vancomycin HCL 125 MG CAPSULE 250 MG PO ×4 (06:20→17:05)
[2022-05-15] MEDS: Metoprolol Succinate ER 12.5 MG HALFTAB.ER.24H PO (08:38)
--- NOTE | 2022-05-15 16:01 | P.PNPSI_ITS ---
Subjective Subjective Date of Service: 05/15/22 Reason For Visit: depression Subjective Notes: Conditional Voluntary Interim History: The nursing staff reported the patient had been new tearful, she is aware that her is terminal. Today on interview, the patient reported that her today in the morning. She stated that now he is resting that he has suffered a lot. The patient is dysphoric but able to process her loss. Medically, she reported mucocyst since she has been on vancomycin and Ceftin. I explained her that I am going to give her Diflucan for that. No new symptoms Mental Status Exam Mental Status Exam Patient Appearance: Well Grooomed Patient Orientation: Person and Situation Level of Consciousness: Awake Patient Behavior: Cooperative Mood Description: Withdrawn and Depressed Affect Description: Constricted Patient Cognition Impaired: Yes Ability to Follow Directions: Good Speech Pattern: Clear Hallucinations: None Delusions: Not Present Thought Process: Linear and Evasive Thought Content: positive for Circumstantial Judgement: Fair Diagnostics Vital Signs (24Hr): Vital Signs - 24 hr 05/14/22 20:00 Temperature 96.8 F Pulse Rate 71 Respiratory Rate 18 Blood Pressure 135/65 Pulse Oximetry 95 Oxygen Delivery Method Room Air BMI result Body Mass Index 24.2 Labs Results: 05/02/22 13:29 05/04/22 07:55 Medications Medications Current Medications Acetaminophen (Acetaminophen 325 Mg Tablet) 650 mg PO Q6H PRN PRN Reason: Headache/Pain Mild Scale (1-3) Last Admin: 05/14/22 16:01 Dose: 650 mg Al Hydroxide/Mg Hydroxide (Magnesium Hydrox/Alum Hydrox 30 Ml Oral.Susp) 30 ml PO Q6H PRN PRN Reason: Heartburn/Nausea Brexpiprazole (Brexpiprazole 1 Mg Tablet) 1.5 mg PO DAILY@1700 [facility] Last Admin: 05/14/22 16:01 Dose: 1.5 mg Cefuroxime Axetil (Cefuroxime Axetil 500 Mg Tablet) 500 mg PO Q12H [facility] Last Admin: 05/15/22 08:38 Dose: 500 mg Clonazepam (Clonazepam 1 Mg Tablet) 2 mg PO BEDTIME [facility] Last Admin: 05/14/22 20:33 Dose: 2 mg Clonidine HCl (Clonidine Hcl 0.1 Mg Tablet) 0.1 mg PO BID PRN; Protocol PRN Reason: panic attack Last Admin: 05/13/22 18:55 Dose: 0.1 mg Hydroxyzine HCl (Hydroxyzine Hcl 25 Mg Tablet) 25 mg PO Q6H PRN PRN Reason: Anxiety Last Admin: 05/13/22 14:34 Dose: 25 mg Magnesium Hydroxide (Milk Of Magnesia 30 Ml Oral.Susp) 30 ml PO DAILY PRN PRN Reason: Constipation Melatonin (Melatonin 3 Mg Tablet) 3 mg PO BEDTIME [facility] Last Admin: 05/14/22 20:33 Dose: 3 mg Metoprolol Succinate (Metoprolol Succinate Er 12.5 Mg Halftab.Er.24h) 12.5 mg PO DAILY [facility]; Protocol Last Admin: 05/15/22 08:38 Dose: 12.5 mg Mirtazapine (Mirtazapine 15 Mg Tablet) 45 mg PO BEDTIME [facility] Last Admin: 05/14/22 20:32 Dose: 45 mg Trazodone HCl (Trazodone Hcl 100 Mg Tablet) 100 mg PO BEDTIME PRN PRN Reason: Insomnia Last Admin: 05/14/22 20:36 Dose: 100 mg Vancomycin HCl (Vancomycin Hcl 125 Mg Capsule) 250 mg PO Q6H [facility] Last Admin: 05/15/22 12:22 Dose: 250 mg Allergies Allergies Allergy/AdvReac Type Severity Reaction Status Date / Time adhesive AdvReac Unknown Verified 04/21/21 23:21 aspirin AdvReac Unknown Verified 04/21/21 23:20 epinephrine AdvReac Unknown Verified 04/21/21 23:21 Assessment & Plan Assessment & Plan (1) MDD (major depressive disorder), recurrent episode, moderate: Status: Acute Code(s): F33.1 - Major depressive disorder, recurrent, moderate Plan 76 yo F with COPD, HTN, hx TIA, hx hyperCA/hyperPTH s/p PTX, hx total colectomies with eventual reanastomosis for multiple precancerous polyps, s/p PPM for arrhythmia, prediabetes, depression, and PTSD admitted [facility] for Depression with SI and now found to hav C dif # C dif associated diarrhea--Present on admission -Start oral Vancomycin 250 mg QID -Contact precaution and Hand hygien (should use water and soap to watch hand before exiting room # h/o COPD - continue inhalers # HTN - continue metoprolol # HLD # hx TIA - continue statin #UTI--reduce Ceftin to 250 bid and stop aft 3 days # depression/PTSD - medications as per psychiatry team PSYCH Continue with current treatment plan: Remeron up to 45 mg p.o. q.h.s. on 05/11 with good effect Klonopin 2 mg p.o. q.h.s. started on 05/11 to target insomnia and anxiet with good effect Diflucan 1 dose po I spent ___20___ minutes with the patient and/or on the patient floor today, greater than?50% of which was spent counseling/coordinating care. Reason for contiued inpatient stay Substantial Risk for: inability to function, rapid decompensation and med/psych decompensation
[2022-05-15] MEDS: Brexpiprazole 1 MG TABLET 1.5 MG PO (17:05)
[2022-05-15 19:00] VITALS: BP 132/69; PULSE 84; RESP 14; TEMP 37; O2SAT 97
[2022-05-15] MEDS: traZODone HCL 100 MG TABLET PO (20:57)
[2022-05-15] MEDS: clonazePAM 1 MG TABLET 2 MG PO (20:57)
[2022-05-15] MEDS: Mirtazapine 15 MG TABLET 45 MG PO (20:57)
[2022-05-15] MEDS: Melatonin 3 MG TABLET PO (20:57)
[2022-05-16] MEDS: vancomycin HCL 125 MG CAPSULE 250 MG PO (00:53)
[2022-05-16] MEDS: Metoprolol Succinate ER 12.5 MG HALFTAB.ER.24H PO (08:45)
[2022-05-16] MEDS: cloNIDine HCL 0.1 MG TABLET PO (12:39)
--- NOTE | 2022-05-16 13:19 | P.PNPSI_ITS ---
Subjective Subjective Date of Service: 05/16/22 Reason For Visit: depression Subjective Notes: Conditional Voluntary Interim History: The nursing staff reported that the patient looks more stable than expected since her yesterday. She denies suicidal ideation she wants to go to the in person. The social welfare administrator spoke with the patient and she is willing to enroll to the [facility] in June. At this moment we have the same very years of discharge, there is no supervision of her medications and she has limited resources outside. On interview, the patient reports that she is feeling dysphoric but no suicidal able to contract for safety in the facility. Mental Status Exam Mental Status Exam Patient Appearance: Well Grooomed Patient Orientation: Person and Situation Level of Consciousness: Awake Patient Behavior: Cooperative Mood Description: Withdrawn Affect Description: Constricted Patient Cognition Impaired: Yes Ability to Follow Directions: Good Speech Pattern: Clear Hallucinations: None Delusions: Not Present Thought Process: Distracted Thought Content: positive for Circumstantial Judgement: Fair Diagnostics Vital Signs (24Hr): Vital Signs - 24 hr 05/15/22 19:00 Temperature 98.6 F Pulse Rate 84 Respiratory Rate 14 Blood Pressure 132/69 Pulse Oximetry 97 Oxygen Delivery Method Room Air BMI result Body Mass Index 24.2 Labs Results: 05/02/22 13:29 05/04/22 07:55 Medications Medications Current Medications Acetaminophen (Acetaminophen 325 Mg Tablet) 650 mg PO Q6H PRN PRN Reason: Headache/Pain Mild Scale (1-3) Last Admin: 05/14/22 16:01 Dose: 650 mg Al Hydroxide/Mg Hydroxide (Magnesium Hydrox/Alum Hydrox 30 Ml Oral.Susp) 30 ml PO Q6H PRN PRN Reason: Heartburn/Nausea Brexpiprazole (Brexpiprazole 1 Mg Tablet) 1.5 mg PO DAILY@1700 [facility] Last Admin: 05/15/22 17:05 Dose: 1.5 mg Clonazepam (Clonazepam 1 Mg Tablet) 2 mg PO BEDTIME [facility] Last Admin: 05/15/22 20:57 Dose: 2 mg Clonidine HCl (Clonidine Hcl 0.1 Mg Tablet) 0.1 mg PO BID PRN; Protocol PRN Reason: panic attack Last Admin: 05/16/22 12:39 Dose: 0.1 mg Hydroxyzine HCl (Hydroxyzine Hcl 25 Mg Tablet) 25 mg PO Q6H PRN PRN Reason: Anxiety Last Admin: 05/13/22 14:34 Dose: 25 mg Magnesium Hydroxide (Milk Of Magnesia 30 Ml Oral.Susp) 30 ml PO DAILY PRN PRN Reason: Constipation Melatonin (Melatonin 3 Mg Tablet) 3 mg PO BEDTIME [facility] Last Admin: 05/15/22 20:57 Dose: 3 mg Metoprolol Succinate (Metoprolol Succinate Er 12.5 Mg Halftab.Er.24h) 12.5 mg PO DAILY [facility]; Protocol Last Admin: 05/16/22 08:45 Dose: 12.5 mg Mirtazapine (Mirtazapine 15 Mg Tablet) 45 mg PO BEDTIME [facility] Last Admin: 05/15/22 20:57 Dose: 45 mg Trazodone HCl (Trazodone Hcl 100 Mg Tablet) 100 mg PO BEDTIME PRN PRN Reason: Insomnia Last Admin: 05/15/22 20:57 Dose: 100 mg Allergies Allergies Allergy/AdvReac Type Severity Reaction Status Date / Time adhesive AdvReac Unknown Verified 04/21/21 23:21 aspirin AdvReac Unknown Verified 04/21/21 23:20 epinephrine AdvReac Unknown Verified 04/21/21 23:21 Assessment & Plan Assessment & Plan (1) MDD (major depressive disorder), recurrent episode, moderate: Status: Acute Code(s): F33.1 - Major depressive disorder, recurrent, moderate Plan 76 yo F with COPD, HTN, hx TIA, hx hyperCA/hyperPTH s/p PTX, hx total colectomies with eventual reanastomosis for multiple precancerous polyps, s/p PPM for arrhythmia, prediabetes, depression, and PTSD admitted [facility] for Depression with SI and now found to hav C dif # C dif associated diarrhea--Present on admission -Start oral Vancomycin 250 mg QID -Contact precaution and Hand hygien (should use water and soap to watch hand before exiting room # h/o COPD - continue inhalers # HTN - continue metoprolol # HLD # hx TIA - continue statin #UTI--reduce Ceftin to 250 bid and stop aft 3 days # depression/PTSD - medications as per psychiatry team PSYCH Continue with current treatment plan: Remeron up to 45 mg p.o. q.h.s. on 05/11 with good effect Klonopin 2 mg p.o. q.h.s. started on 05/11 to target insomnia and anxiet with good effect Diflucan 1 dose po I spent ___20___ minutes with the patient and/or on the patient floor today, greater than?50% of which was spent counseling/coordinating care. Reason for contiued inpatient stay Substantial Risk for: inability to function, rapid decompensation and med/psych decompensation
[2022-05-16] MEDS: Brexpiprazole 1 MG TABLET 1.5 MG PO (16:48)
[2022-05-16 18:00] VITALS: BP 140/74; PULSE 80; RESP 16; TEMP 36.6; O2SAT 96
[2022-05-16] MEDS: Mirtazapine 15 MG TABLET 45 MG PO (20:28)
[2022-05-16] MEDS: clonazePAM 1 MG TABLET 2 MG PO (20:28)
[2022-05-16] MEDS: Melatonin 3 MG TABLET PO (20:28)
[2022-05-17 07:00] VITALS: BMI 24.0
[2022-05-17 08:30] VITALS: BP 115/67; PULSE 87; TEMP 36.2; O2SAT 93
[2022-05-17] MEDS: Metoprolol Succinate ER 12.5 MG HALFTAB.ER.24H PO (09:40)
--- NOTE | 2022-05-17 10:35 | HO.PSYCHPN ---
Subjective Subjective Date of Service: 05/17/22 Reason For Visit: depression Interim History: The nursing staff reported the patient had been fully compliant with treatment. She understands that there are some rules regarding discharged and passes, she is fully aware that with on 2 passes for home. She slept well last night. The case management social worker will talk with her daughter regarding the arrangements of her . On interview, the patient reports that she is feeling sad but she feels relieved since she knows that her is and he is not suffering anymore. We will try to find out the arrangements of the . At this moment, the patient is not suicidal, she is able to contract for safety. Mental Status Exam Mental Status Exam Patient Appearance: Well Grooomed Patient Orientation: Person and Situation Level of Consciousness: Awake Patient Behavior: Cooperative Mood Description: Withdrawn Affect Description: Constricted Patient Cognition Impaired: Yes Ability to Follow Directions: Good Speech Pattern: Clear Hallucinations: None Delusions: Not Present Thought Process: Distracted Thought Content: positive for Circumstantial Judgement: Fair Diagnostics Vital Signs (24Hr): Vital Signs - 24 hr 05/16/22 18:00 Temperature 97.9 F Pulse Rate 80 Respiratory Rate 16 Blood Pressure 140/74 H Pulse Oximetry 96 Oxygen Delivery Method Room Air BMI result Body Mass Index 24.2 Labs Results: 05/02/22 13:29 05/04/22 07:55 Medications Medications Current Medications Acetaminophen (Acetaminophen 325 Mg Tablet) 650 mg PO Q6H PRN PRN Reason: Headache/Pain Mild Scale (1-3) Last Admin: 05/14/22 16:01 Dose: 650 mg Al Hydroxide/Mg Hydroxide (Magnesium Hydrox/Alum Hydrox 30 Ml Oral.Susp) 30 ml PO Q6H PRN PRN Reason: Heartburn/Nausea Brexpiprazole (Brexpiprazole 1 Mg Tablet) 1.5 mg PO DAILY@1700 [facility] Last Admin: 05/16/22 16:48 Dose: 1.5 mg Clonidine HCl (Clonidine Hcl 0.1 Mg Tablet) 0.1 mg PO BID PRN; Protocol PRN Reason: panic attack Last Admin: 05/16/22 12:39 Dose: 0.1 mg Hydroxyzine HCl (Hydroxyzine Hcl 25 Mg Tablet) 25 mg PO Q6H PRN PRN Reason: Anxiety Last Admin: 05/13/22 14:34 Dose: 25 mg Magnesium Hydroxide (Milk Of Magnesia 30 Ml Oral.Susp) 30 ml PO DAILY PRN PRN Reason: Constipation Melatonin (Melatonin 3 Mg Tablet) 3 mg PO BEDTIME [facility] Last Admin: 05/16/22 20:28 Dose: 3 mg Metoprolol Succinate (Metoprolol Succinate Er 12.5 Mg Halftab.Er.24h) 12.5 mg PO DAILY [facility]; Protocol Last Admin: 05/17/22 09:40 Dose: 12.5 mg Mirtazapine (Mirtazapine 15 Mg Tablet) 45 mg PO BEDTIME [facility] Last Admin: 05/16/22 20:28 Dose: 45 mg Trazodone HCl (Trazodone Hcl 100 Mg Tablet) 100 mg PO BEDTIME PRN PRN Reason: Insomnia Last Admin: 05/15/22 20:57 Dose: 100 mg Allergies Allergies Allergy/AdvReac Type Severity Reaction Status Date / Time adhesive AdvReac Unknown Verified 04/21/21 23:21 aspirin AdvReac Unknown Verified 04/21/21 23:20 epinephrine AdvReac Unknown Verified 04/21/21 23:21 Assessment & Plan Assessment & Plan (1) MDD (major depressive disorder), recurrent episode, moderate: Status: Acute Code(s): F33.1 - Major depressive disorder, recurrent, moderate Plan 76 yo F with COPD, HTN, hx TIA, hx hyperCA/hyperPTH s/p PTX, hx total colectomies with eventual reanastomosis for multiple precancerous polyps, s/p PPM for arrhythmia, prediabetes, depression, and PTSD admitted [facility] for Depression with SI and now found to hav C dif # C dif associated diarrhea--Present on admission -Start oral Vancomycin 250 mg QID -Contact precaution and Hand hygien (should use water and soap to watch hand before exiting room # h/o COPD - continue inhalers # HTN - continue metoprolol # HLD # hx TIA - continue statin #UTI--reduce Ceftin to 250 bid and stop aft 3 days # depression/PTSD - medications as per psychiatry team PSYCH Continue with current treatment plan: Remeron up to 45 mg p.o. q.h.s. on 05/11 with good effect Klonopin 2 mg p.o. q.h.s. started on 05/11 to target insomnia and anxiet with good effect Diflucan 1 dose po I spent __20____ minutes with the patient and/or on the patient floor today, greater than?50% of which was spent counseling/coordinating care. Reason for contiued inpatient stay Substantial Risk for: inability to function, rapid decompensation and med/psych decompensation
[2022-05-17 11:07] VITALS: BP 130/80
[2022-05-17] MEDS: cloNIDine HCL 0.1 MG TABLET PO (11:08)
[2022-05-17] MEDS: Brexpiprazole 1 MG TABLET 1.5 MG PO (17:44)
[2022-05-17 19:00] VITALS: BP 119/56; PULSE 68; RESP 17; TEMP 36.7; O2SAT 93
[2022-05-17] MEDS: Melatonin 3 MG TABLET PO (20:44)
[2022-05-17] MEDS: clonazePAM 1 MG TABLET 2 MG PO (20:44)
[2022-05-17] MEDS: Mirtazapine 15 MG TABLET 45 MG PO (20:44)
[2022-05-17] MEDS: traZODone HCL 100 MG TABLET PO (21:02)
[2022-05-18 09:45] VITALS: BP 133/78; PULSE 86; RESP 18; TEMP 36.8; O2SAT 94
[2022-05-18] MEDS: Metoprolol Succinate ER 12.5 MG HALFTAB.ER.24H PO (10:10)
[2022-05-18] MEDS: Acetaminophen 325 MG TABLET 650 MG PO (13:11)
--- NOTE | 2022-05-18 14:33 | HO.PSYCHPN ---
Subjective Subjective Date of Service: 05/18/22 Reason For Visit: depression Subjective Notes: Conditional Voluntary Interim History: The nursing staff reported the patient has denies suicidal ideation. She remains dysphoric but mostly she feels relieved that her is not suffering anymore. The social media marketer contact her daughter and they are doing arrangements for the . Historically, the family has not gone through with the plans that we did for discharge. On interview, the patient denies new symptoms she still dysphoric but future oriented. Mental Status Exam Mental Status Exam Patient Appearance: Well Grooomed Patient Orientation: Person and Situation Level of Consciousness: Awake Patient Behavior: Appropriate Mood Description: Withdrawn Affect Description: Constricted Patient Cognition Impaired: Yes Ability to Follow Directions: Good Speech Pattern: Clear Hallucinations: None Delusions: Not Present Thought Process: Distracted Thought Content: positive for [place] and positive for Circumstantial Judgement: Fair Diagnostics Vital Signs (24Hr): Vital Signs - 24 hr 05/17/22 19:00 05/18/22 09:45 Temperature 98.1 F 98.3 F Pulse Rate 68 86 Respiratory Rate 17 18 Blood Pressure 119/56 L 133/78 Pulse Oximetry 93 94 Oxygen Delivery Method Room Air Room Air BMI result Body Mass Index 24.0 Labs Results: 05/02/22 13:29 05/04/22 07:55 Medications Medications Current Medications Acetaminophen (Acetaminophen 325 Mg Tablet) 650 mg PO Q6H PRN PRN Reason: Headache/Pain Mild Scale (1-3) Last Admin: 05/18/22 13:11 Dose: 650 mg Al Hydroxide/Mg Hydroxide (Magnesium Hydrox/Alum Hydrox 30 Ml Oral.Susp) 30 ml PO Q6H PRN PRN Reason: Heartburn/Nausea Brexpiprazole (Brexpiprazole 1 Mg Tablet) 1.5 mg PO DAILY@1700 [facility] Last Admin: 05/17/22 17:44 Dose: 1.5 mg Clonazepam (Clonazepam 1 Mg Tablet) 2 mg PO BEDTIME [facility] Last Admin: 05/17/22 20:44 Dose: 2 mg Clonazepam (Clonazepam 0.5 Mg Tablet) 0.5 mg PO BID PRN PRN Reason: Anxiety Clonidine HCl (Clonidine Hcl 0.1 Mg Tablet) 0.1 mg PO BID PRN; Protocol PRN Reason: panic attack Last Admin: 05/17/22 11:08 Dose: 0.1 mg Hydroxyzine HCl (Hydroxyzine Hcl 25 Mg Tablet) 25 mg PO Q6H PRN PRN Reason: Anxiety Last Admin: 05/13/22 14:34 Dose: 25 mg Magnesium Hydroxide (Milk Of Magnesia 30 Ml Oral.Susp) 30 ml PO DAILY PRN PRN Reason: Constipation Melatonin (Melatonin 3 Mg Tablet) 3 mg PO BEDTIME [facility] Last Admin: 05/17/22 20:44 Dose: 3 mg Metoprolol Succinate (Metoprolol Succinate Er 12.5 Mg Halftab.Er.24h) 12.5 mg PO DAILY [facility]; Protocol Last Admin: 05/18/22 10:10 Dose: 12.5 mg Mirtazapine (Mirtazapine 15 Mg Tablet) 45 mg PO BEDTIME [facility] Last Admin: 05/17/22 20:44 Dose: 45 mg Trazodone HCl (Trazodone Hcl 100 Mg Tablet) 100 mg PO BEDTIME PRN PRN Reason: Insomnia Last Admin: 05/17/22 21:02 Dose: 100 mg Allergies Allergies Allergy/AdvReac Type Severity Reaction Status Date / Time adhesive AdvReac Unknown Verified 04/21/21 23:21 aspirin AdvReac Unknown Verified 04/21/21 23:20 epinephrine AdvReac Unknown Verified 04/21/21 23:21 Assessment & Plan Assessment & Plan (1) MDD (major depressive disorder), recurrent episode, moderate: Status: Acute Code(s): F33.1 - Major depressive disorder, recurrent, moderate Plan 76 yo F with COPD, HTN, hx TIA, hx hyperCA/hyperPTH s/p PTX, hx total colectomies with eventual reanastomosis for multiple precancerous polyps, s/p PPM for arrhythmia, prediabetes, depression, and PTSD admitted to [facility] for Depression with SI and now found to hav C dif # C dif associated diarrhea--Present on admission -Start oral Vancomycin 250 mg QID -Contact precaution and Hand hygien (should use water and soap to watch hand before exiting room # h/o COPD - continue inhalers # HTN - continue metoprolol # HLD # hx TIA - continue statin #UTI--reduce Ceftin to 250 bid and stop aft 3 days # depression/PTSD - medications as per psychiatry team PSYCH Continue with current treatment plan: Remeron up to 45 mg p.o. q.h.s. on 05/11 with good effect Klonopin 2 mg p.o. q.h.s. started on 05/11 to target insomnia and anxiet with good effect Diflucan 1 dose po I spent __20____ minutes with the patient and/or on the patient floor today, greater than?50% of which was spent counseling/coordinating care. Reason for contiued inpatient stay Substantial Risk for: inability to function, rapid decompensation and med/psych decompensation
[2022-05-18] MEDS: Brexpiprazole 1 MG TABLET 1.5 MG PO (16:51)
[2022-05-18 19:00] VITALS: BP 162/83; PULSE 77; RESP 17; TEMP 36.6; O2SAT 95
[2022-05-18] MEDS: Melatonin 3 MG TABLET PO (20:46)
[2022-05-18] MEDS: Mirtazapine 15 MG TABLET 45 MG PO (20:46)
[2022-05-18] MEDS: clonazePAM 1 MG TABLET 2 MG PO (20:46)
[2022-05-18] MEDS: traZODone HCL 100 MG TABLET PO (21:15)
[2022-05-19 08:00] VITALS: BP 126/58; PULSE 86; RESP 17; TEMP 35.8; O2SAT 96
[2022-05-19] MEDS: Metoprolol Succinate ER 12.5 MG HALFTAB.ER.24H PO (08:35)
--- NOTE | 2022-05-19 11:20 | P.PNPSI_ITS ---
Subjective Subjective Date of Service: 05/19/22 Reason For Visit: depression Interim History: calm, cooperative. lucid, logical. states her several days ago, awaiting word from her children about arrangements. planning to attend the . states she has not had any SI in the hospital and now realizes she has wonderful family to live for, specifically mentioning her grandchildren. she states she won't do anything stupid after leaving the hospital. per staff, earlier in the week. planning to discharge home with supportive services, no concrete plan yet in place. Mental Status Exam Mental Status Exam Patient Appearance: Well Grooomed Patient Orientation: Person and Situation Level of Consciousness: Awake Patient Behavior: Appropriate Mood Description: Withdrawn Affect Description: Constricted Patient Cognition Impaired: Yes Ability to Follow Directions: Good Speech Pattern: Clear Hallucinations: None Delusions: Not Present Thought Process: Distracted Thought Content: positive for [place] and positive for Circumstantial Judgement: Fair Diagnostics Vital Signs (24Hr): Vital Signs - 24 hr 05/18/22 19:00 05/19/22 08:00 Temperature 97.9 F 96.5 F L Pulse Rate 77 86 Respiratory Rate 17 17 Blood Pressure 162/83 H 126/58 L Pulse Oximetry 95 96 Oxygen Delivery Method Room Air Room Air BMI result Body Mass Index 24.0 Labs Results: 05/02/22 13:29 05/04/22 07:55 Medications Medications Current Medications Acetaminophen (Acetaminophen 325 Mg Tablet) 650 mg PO Q6H PRN PRN Reason: Headache/Pain Mild Scale (1-3) Last Admin: 05/18/22 13:11 Dose: 650 mg Al Hydroxide/Mg Hydroxide (Magnesium Hydrox/Alum Hydrox 30 Ml Oral.Susp) 30 ml PO Q6H PRN PRN Reason: Heartburn/Nausea Brexpiprazole (Brexpiprazole 1 Mg Tablet) 1.5 mg PO DAILY@1700 [facility] Last Admin: 05/18/22 16:51 Dose: 1.5 mg Clonazepam (Clonazepam 1 Mg Tablet) 2 mg PO BEDTIME [facility] Last Admin: 05/18/22 20:46 Dose: 2 mg Clonazepam (Clonazepam 0.5 Mg Tablet) 0.5 mg PO BID PRN PRN Reason: Anxiety Clonidine HCl (Clonidine Hcl 0.1 Mg Tablet) 0.1 mg PO BID PRN; Protocol PRN Reason: panic attack Last Admin: 05/17/22 11:08 Dose: 0.1 mg Hydroxyzine HCl (Hydroxyzine Hcl 25 Mg Tablet) 25 mg PO Q6H PRN PRN Reason: Anxiety Last Admin: 05/13/22 14:34 Dose: 25 mg Magnesium Hydroxide (Milk Of Magnesia 30 Ml Oral.Susp) 30 ml PO DAILY PRN PRN Reason: Constipation Melatonin (Melatonin 3 Mg Tablet) 3 mg PO BEDTIME [facility] Last Admin: 05/18/22 20:46 Dose: 3 mg Metoprolol Succinate (Metoprolol Succinate Er 12.5 Mg Halftab.Er.24h) 12.5 mg PO DAILY [facility]; Protocol Last Admin: 05/19/22 08:35 Dose: 12.5 mg Mirtazapine (Mirtazapine 15 Mg Tablet) 45 mg PO BEDTIME [facility] Last Admin: 05/18/22 20:46 Dose: 45 mg Trazodone HCl (Trazodone Hcl 100 Mg Tablet) 100 mg PO BEDTIME PRN PRN Reason: Insomnia Last Admin: 05/18/22 21:15 Dose: 100 mg Allergies Allergies Allergy/AdvReac Type Severity Reaction Status Date / Time adhesive AdvReac Unknown Verified 04/21/21 23:21 aspirin AdvReac Unknown Verified 04/21/21 23:20 epinephrine AdvReac Unknown Verified 04/21/21 23:21 Assessment & Plan Assessment & Plan (1) MDD (major depressive disorder), recurrent episode, moderate: Status: Acute Code(s): F33.1 - Major depressive disorder, recurrent, moderate Plan 76 yo F with COPD, HTN, hx TIA, hx hyperCA/hyperPTH s/p PTX, hx total colectomies with eventual reanastomosis for multiple precancerous polyps, s/p PPM for arrhythmia, prediabetes, depression, and PTSD admitted [facility] for Depression with SI and now found to hav C dif # C dif associated diarrhea--Present on admission -Start oral Vancomycin 250 mg QID -Contact precaution and Hand hygien (should use water and soap to watch hand before exiting room # h/o COPD - continue inhalers # HTN - continue metoprolol # HLD # hx TIA - continue statin #UTI--reduce Ceftin to 250 bid and stop aft 3 days # depression/PTSD - medications as per psychiatry team PSYCH Continue with current treatment plan: Remeron up to 45 mg p.o. q.h.s. on 05/11 with good effect Klonopin 2 mg p.o. q.h.s. started on 05/11 to target insomnia and anxiet with good effect Diflucan 1 dose po 05/19: stable. continue current mgmt. I spent __20____ minutes with the patient and/or on the patient floor today, greater than?50% of which was spent counseling/coordinating care. Reason for contiued inpatient stay Substantial Risk for: inability to function and rapid decompensation
[2022-05-19] MEDS: Brexpiprazole 1 MG TABLET 1.5 MG PO (17:00)
[2022-05-19 19:00] VITALS: BP 138/63; PULSE 72; RESP 16; TEMP 36.3; O2SAT 94
[2022-05-19] MEDS: Mirtazapine 15 MG TABLET 45 MG PO (20:42)
[2022-05-19] MEDS: traZODone HCL 100 MG TABLET PO (20:42)
[2022-05-19] MEDS: Melatonin 3 MG TABLET PO (20:42)
[2022-05-19] MEDS: clonazePAM 1 MG TABLET 2 MG PO (20:42)
[2022-05-20 08:00] VITALS: BP 134/66; PULSE 96; RESP 17; TEMP 35.8; O2SAT 93
[2022-05-20] MEDS: Metoprolol Succinate ER 12.5 MG HALFTAB.ER.24H PO (08:20)
--- NOTE | 2022-05-20 12:08 | HO.PSYCHPN ---
Subjective Subjective Date of Service: 05/20/22 Reason For Visit: depression Interim History: pt calm, cooperative. feeling detached today. no word on arrangements yet, although she did speak with her daughter last night. per staff, not in pain. oriented. doing OK. Mental Status Exam Mental Status Exam Patient Appearance: Well Grooomed Patient Orientation: Person and Situation Level of Consciousness: Awake Patient Behavior: Appropriate Mood Description: Withdrawn Affect Description: Constricted Patient Cognition Impaired: Yes Ability to Follow Directions: Good Speech Pattern: Clear Hallucinations: None Delusions: Not Present Thought Process: Distracted Thought Content: positive for [place] and positive for Circumstantial Judgement: Fair Diagnostics Vital Signs (24Hr): Vital Signs - 24 hr 05/19/22 19:00 05/20/22 08:00 Temperature 97.3 F 96.5 F L Pulse Rate 72 96 Respiratory Rate 16 17 Blood Pressure 138/63 134/66 Pulse Oximetry 94 93 Oxygen Delivery Method Room Air Room Air BMI result Body Mass Index 24.0 Labs Results: 05/02/22 13:29 05/04/22 07:55 Medications Medications Current Medications Acetaminophen (Acetaminophen 325 Mg Tablet) 650 mg PO Q6H PRN PRN Reason: Headache/Pain Mild Scale (1-3) Last Admin: 05/18/22 13:11 Dose: 650 mg Al Hydroxide/Mg Hydroxide (Magnesium Hydrox/Alum Hydrox 30 Ml Oral.Susp) 30 ml PO Q6H PRN PRN Reason: Heartburn/Nausea Brexpiprazole (Brexpiprazole 1 Mg Tablet) 1.5 mg PO DAILY@1700 [facility] Last Admin: 05/19/22 17:00 Dose: 1.5 mg Clonazepam (Clonazepam 1 Mg Tablet) 2 mg PO BEDTIME [facility] Last Admin: 05/19/22 20:42 Dose: 2 mg Clonazepam (Clonazepam 0.5 Mg Tablet) 0.5 mg PO BID PRN PRN Reason: Anxiety Clonidine HCl (Clonidine Hcl 0.1 Mg Tablet) 0.1 mg PO BID PRN; Protocol PRN Reason: panic attack Last Admin: 05/17/22 11:08 Dose: 0.1 mg Hydroxyzine HCl (Hydroxyzine Hcl 25 Mg Tablet) 25 mg PO Q6H PRN PRN Reason: Anxiety Last Admin: 05/13/22 14:34 Dose: 25 mg Magnesium Hydroxide (Milk Of Magnesia 30 Ml Oral.Susp) 30 ml PO DAILY PRN PRN Reason: Constipation Melatonin (Melatonin 3 Mg Tablet) 3 mg PO BEDTIME [facility] Last Admin: 05/19/22 20:42 Dose: 3 mg Metoprolol Succinate (Metoprolol Succinate Er 12.5 Mg Halftab.Er.24h) 12.5 mg PO DAILY [facility]; Protocol Last Admin: 05/20/22 08:20 Dose: 12.5 mg Mirtazapine (Mirtazapine 15 Mg Tablet) 45 mg PO BEDTIME [facility] Last Admin: 05/19/22 20:42 Dose: 45 mg Trazodone HCl (Trazodone Hcl 100 Mg Tablet) 100 mg PO BEDTIME PRN PRN Reason: Insomnia Last Admin: 05/19/22 20:42 Dose: 100 mg Allergies Allergies Allergy/AdvReac Type Severity Reaction Status Date / Time adhesive AdvReac Unknown Verified 04/21/21 23:21 aspirin AdvReac Unknown Verified 04/21/21 23:20 epinephrine AdvReac Unknown Verified 04/21/21 23:21 Assessment & Plan Assessment & Plan (1) MDD (major depressive disorder), recurrent episode, moderate: Status: Acute Code(s): F33.1 - Major depressive disorder, recurrent, moderate Plan 76 yo F with COPD, HTN, hx TIA, hx hyperCA/hyperPTH s/p PTX, hx total colectomies with eventual reanastomosis for multiple precancerous polyps, s/p PPM for arrhythmia, prediabetes, depression, and PTSD admitted [facility] for Depression with SI and now found to hav C dif # C dif associated diarrhea--Present on admission -Start oral Vancomycin 250 mg QID -Contact precaution and Hand hygien (should use water and soap to watch hand before exiting room # h/o COPD - continue inhalers # HTN - continue metoprolol # HLD # hx TIA - continue statin #UTI--reduce Ceftin to 250 bid and stop aft 3 days # depression/PTSD - medications as per psychiatry team PSYCH Continue with current treatment plan: Remeron up to 45 mg p.o. q.h.s. on 05/11 with good effect Klonopin 2 mg p.o. q.h.s. started on 05/11 to target insomnia and anxiet with good effect Diflucan 1 dose po 05/19: stable. continue current mgmt. 11/13: no change. I spent ___20___ minutes with the patient and/or on the patient floor today, greater than?50% of which was spent counseling/coordinating care. Reason for contiued inpatient stay Substantial Risk for: inability to function and rapid decompensation
[2022-05-20] MEDS: Brexpiprazole 1 MG TABLET 1.5 MG PO (17:53)
[2022-05-20 18:00] VITALS: BP 175/83; PULSE 90; RESP 18; TEMP 36.2; O2SAT 97
[2022-05-20] MEDS: Mirtazapine 15 MG TABLET 45 MG PO (20:33)
[2022-05-20] MEDS: clonazePAM 1 MG TABLET 2 MG PO (20:33)
[2022-05-20] MEDS: traZODone HCL 100 MG TABLET PO (21:38)
[2022-05-20] MEDS: Melatonin 3 MG TABLET PO (22:49)
[2022-05-21 06:00] VITALS: BP 131/60; PULSE 74; RESP 14; TEMP 36.4; O2SAT 91
[2022-05-21] MEDS: Metoprolol Succinate ER 12.5 MG HALFTAB.ER.24H PO (08:27)
[2022-05-21] MEDS: Acetaminophen 325 MG TABLET 650 MG PO (14:08)
--- NOTE | 2022-05-21 15:04 | HO.PSYCHPN ---
Subjective Subjective Date of Service: 05/21/22 Reason For Visit: depression Subjective Notes: Conditional Voluntary Interim History: The nursing staff reported the patient had been dysphoric, morning her loss and grieving. She reported that she wanted to smoke and refused later on tobacco replacement treatment. The social service director reported that the daughter had asked surgery last Saturday and we could not check with her regarding the date of the .. On interview the patient denies active suicidal ideation she is dysphoric but able to contract for safety in the facility. We discussed at length and it seems that attending to the would give her closure. Mental Status Exam Mental Status Exam Patient Appearance: Well Grooomed Patient Orientation: Person and Situation Level of Consciousness: Awake Patient Behavior: Cooperative and Passive Mood Description: Withdrawn and Depressed Affect Description: Constricted Patient Cognition Impaired: Yes Ability to Follow Directions: Good Speech Pattern: Clear Hallucinations: None Delusions: Not Present Thought Process: Slowed Thinking Thought Content: positive for [place] and positive for Circumstantial Judgement: Fair Diagnostics Vital Signs (24Hr): Vital Signs - 24 hr 05/20/22 18:00 05/21/22 06:00 Temperature 97.1 F 97.6 F Pulse Rate 90 74 Respiratory Rate 18 14 Blood Pressure 175/83 H 131/60 Pulse Oximetry 97 91 L Oxygen Delivery Method Room Air Room Air BMI result Body Mass Index 24.0 Labs Results: 05/02/22 13:29 05/04/22 07:55 Medications Medications Current Medications Acetaminophen (Acetaminophen 325 Mg Tablet) 650 mg PO Q6H PRN PRN Reason: Headache/Pain Mild Scale (1-3) Last Admin: 05/21/22 14:08 Dose: 650 mg Al Hydroxide/Mg Hydroxide (Magnesium Hydrox/Alum Hydrox 30 Ml Oral.Susp) 30 ml PO Q6H PRN PRN Reason: Heartburn/Nausea Brexpiprazole (Brexpiprazole 1 Mg Tablet) 1.5 mg PO DAILY@1700 [facility] Last Admin: 05/20/22 17:53 Dose: 1.5 mg Clonazepam (Clonazepam 1 Mg Tablet) 2 mg PO BEDTIME [facility] Last Admin: 05/20/22 20:33 Dose: 2 mg Clonazepam (Clonazepam 0.5 Mg Tablet) 0.5 mg PO BID PRN PRN Reason: Anxiety Clonidine HCl (Clonidine Hcl 0.1 Mg Tablet) 0.1 mg PO BID PRN; Protocol PRN Reason: panic attack Last Admin: 05/17/22 11:08 Dose: 0.1 mg Hydroxyzine HCl (Hydroxyzine Hcl 25 Mg Tablet) 25 mg PO Q6H PRN PRN Reason: Anxiety Last Admin: 05/13/22 14:34 Dose: 25 mg Magnesium Hydroxide (Milk Of Magnesia 30 Ml Oral.Susp) 30 ml PO DAILY PRN PRN Reason: Constipation Melatonin (Melatonin 3 Mg Tablet) 3 mg PO BEDTIME [facility] Last Admin: 05/20/22 22:49 Dose: 3 mg Metoprolol Succinate (Metoprolol Succinate Er 12.5 Mg Halftab.Er.24h) 12.5 mg PO DAILY [facility]; Protocol Last Admin: 05/21/22 08:27 Dose: 12.5 mg Mirtazapine (Mirtazapine 15 Mg Tablet) 45 mg PO BEDTIME [facility] Last Admin: 05/20/22 20:33 Dose: 45 mg Trazodone HCl (Trazodone Hcl 100 Mg Tablet) 100 mg PO BEDTIME PRN PRN Reason: Insomnia Last Admin: 05/20/22 21:38 Dose: 100 mg Allergies Allergies Allergy/AdvReac Type Severity Reaction Status Date / Time adhesive AdvReac Unknown Verified 04/21/21 23:21 aspirin AdvReac Unknown Verified 04/21/21 23:20 epinephrine AdvReac Unknown Verified 04/21/21 23:21 Assessment & Plan Assessment & Plan (1) MDD (major depressive disorder), recurrent episode, moderate: Status: Acute Code(s): F33.1 - Major depressive disorder, recurrent, moderate Plan 76 yo F with COPD, HTN, hx TIA, hx hyperCA/hyperPTH s/p PTX, hx total colectomies with eventual reanastomosis for multiple precancerous polyps, s/p PPM for arrhythmia, prediabetes, depression, and PTSD admitted [facility] for Depression with SI and now found to hav C dif # C dif associated diarrhea--Present on admission -Start oral Vancomycin 250 mg QID -Contact precaution and Hand hygien (should use water and soap to watch hand before exiting room # h/o COPD - continue inhalers # HTN - continue metoprolol # HLD # hx TIA - continue statin #UTI--reduce Ceftin to 250 bid and stop aft 3 days # depression/PTSD - medications as per psychiatry team PSYCH Continue with current treatment plan: Remeron up to 45 mg p.o. q.h.s. on 05/11 with good effect Klonopin 2 mg p.o. q.h.s. started on 05/11 to target insomnia and anxiet with good effect Diflucan 1 dose po I spent __20____ minutes with the patient and/or on the patient floor today, greater than?50% of which was spent counseling/coordinating care. Reason for contiued inpatient stay Substantial Risk for: inability to function, rapid decompensation and med/psych decompensation
[2022-05-21] MEDS: Brexpiprazole 1 MG TABLET 1.5 MG PO (17:10)
[2022-05-21 19:00] VITALS: BP 138/68; PULSE 79; RESP 16; TEMP 36.8; O2SAT 93
[2022-05-21] MEDS: clonazePAM 1 MG TABLET 2 MG PO (20:19)
[2022-05-21] MEDS: Melatonin 3 MG TABLET PO (20:19)
[2022-05-21] MEDS: Mirtazapine 15 MG TABLET 45 MG PO (20:19)
[2022-05-21] MEDS: traZODone HCL 100 MG TABLET PO (20:19)
[2022-05-22 07:40] VITALS: BP 100/61; PULSE 106; RESP 16; TEMP 36.7; O2SAT 95
[2022-05-22] MEDS: Metoprolol Succinate ER 12.5 MG HALFTAB.ER.24H PO (07:43)
[2022-05-22 10:13] LABS: CDiff Gene PCR NEGATIVE (Negative)
--- NOTE | 2022-05-22 13:32 | HO.PSYCHPN ---
Subjective Subjective Date of Service: 05/22/22 Reason For Visit: depression Subjective Notes: Conditional Voluntary Interim History: The nursing staff reported the patient has been sad but pleasant and cooperative. Yesterday she had a shower and she attended a few groups. The social science research assistant spoke with her daughter and apparently there on agreement of discharge in next for the . Today in the morning the patient complained of diarrhea and we took a sample for Clostridium difficile. On interview the patient denies new symptoms she still dysphoric but future oriented. No evidence of suicidal ideation at this moment. Mental Status Exam Mental Status Exam Patient Appearance: Appropriate Patient Orientation: Person and Situation Level of Consciousness: Appropriate Patient Behavior: Cooperative and Passive Mood Description: Withdrawn Affect Description: Constricted Patient Cognition Impaired: Yes Ability to Follow Directions: Good Speech Pattern: Clear Hallucinations: None Delusions: Not Present Thought Process: Slowed Thinking Thought Content: positive for [place], positive for Circumstantial and positive for [place] of Content Judgement: Fair Diagnostics Vital Signs (24Hr): Vital Signs - 24 hr 05/21/22 19:00 05/22/22 07:40 Temperature 98.2 F 98.0 F Pulse Rate 79 106 H Respiratory Rate 16 16 Blood Pressure 138/68 100/61 Pulse Oximetry 93 95 Oxygen Delivery Method Room Air Room Air BMI result Body Mass Index 24.0 Labs Results: 05/02/22 13:29 05/04/22 07:55 Labs: Laboratory Results - last 48 hr 05/22/22 08:25 C. difficile Tox B Gene NEGATIVE Medications Medications Current Medications Acetaminophen (Acetaminophen 325 Mg Tablet) 650 mg PO Q6H PRN PRN Reason: Headache/Pain Mild Scale (1-3) Last Admin: 05/21/22 14:08 Dose: 650 mg Al Hydroxide/Mg Hydroxide (Magnesium Hydrox/Alum Hydrox 30 Ml Oral.Susp) 30 ml PO Q6H PRN PRN Reason: Heartburn/Nausea Brexpiprazole (Brexpiprazole 1 Mg Tablet) 1.5 mg PO DAILY@1700 [facility] Last Admin: 05/21/22 17:10 Dose: 1.5 mg Clonazepam (Clonazepam 1 Mg Tablet) 2 mg PO BEDTIME [facility] Last Admin: 05/21/22 20:19 Dose: 2 mg Clonidine HCl (Clonidine Hcl 0.1 Mg Tablet) 0.1 mg PO BID PRN; Protocol PRN Reason: panic attack Last Admin: 05/17/22 11:08 Dose: 0.1 mg Hydroxyzine HCl (Hydroxyzine Hcl 25 Mg Tablet) 25 mg PO Q6H PRN PRN Reason: Anxiety Last Admin: 05/13/22 14:34 Dose: 25 mg Magnesium Hydroxide (Milk Of Magnesia 30 Ml Oral.Susp) 30 ml PO DAILY PRN PRN Reason: Constipation Melatonin (Melatonin 3 Mg Tablet) 3 mg PO BEDTIME [facility] Last Admin: 05/21/22 20:19 Dose: 3 mg Metoprolol Succinate (Metoprolol Succinate Er 12.5 Mg Halftab.Er.24h) 12.5 mg PO DAILY [facility]; Protocol Last Admin: 05/22/22 07:43 Dose: 12.5 mg Mirtazapine (Mirtazapine 15 Mg Tablet) 45 mg PO BEDTIME [facility] Last Admin: 05/21/22 20:19 Dose: 45 mg Trazodone HCl (Trazodone Hcl 100 Mg Tablet) 100 mg PO BEDTIME PRN PRN Reason: Insomnia Last Admin: 05/21/22 20:19 Dose: 100 mg Allergies Allergies Allergy/AdvReac Type Severity Reaction Status Date / Time adhesive AdvReac Unknown Verified 04/21/21 23:21 aspirin AdvReac Unknown Verified 04/21/21 23:20 epinephrine AdvReac Unknown Verified 04/21/21 23:21 Assessment & Plan Assessment & Plan (1) MDD (major depressive disorder), recurrent episode, moderate: Status: Acute Code(s): F33.1 - Major depressive disorder, recurrent, moderate Plan 76 yo F with COPD, HTN, hx TIA, hx hyperCA/hyperPTH s/p PTX, hx total colectomies with eventual reanastomosis for multiple precancerous polyps, s/p PPM for arrhythmia, prediabetes, depression, and PTSD admitted [facility] for Depression with SI and now found to hav C dif # C dif associated diarrhea--Present on admission -Start oral Vancomycin 250 mg QID -Contact precaution and Hand hygien (should use water and soap to watch hand before exiting room # h/o COPD - continue inhalers # HTN - continue metoprolol # HLD # hx TIA - continue statin #UTI--reduce Ceftin to 250 bid and stop aft 3 days # depression/PTSD - medications as per psychiatry team PSYCH Continue with current treatment plan: Remeron up to 45 mg p.o. q.h.s. on 05/11 with good effect Klonopin 2 mg p.o. q.h.s. started on 05/11 to target insomnia and anxiet with good effect Diflucan 1 dose po Cluster in the facility test for today May 22. I spent ___20___ minutes with the patient and/or on the patient floor today, greater than?50% of which was spent counseling/coordinating care. Reason for contiued inpatient stay Substantial Risk for: inability to function, rapid decompensation and med/psych decompensation
[2022-05-22] MEDS: Brexpiprazole 1 MG TABLET 1.5 MG PO (17:34)
[2022-05-22 18:00] VITALS: BP 120/69; PULSE 78; RESP 16; TEMP 36.6; O2SAT 91
[2022-05-22] MEDS: Mirtazapine 15 MG TABLET 45 MG PO (20:45)
[2022-05-22] MEDS: Melatonin 3 MG TABLET PO (20:45)
[2022-05-22] MEDS: clonazePAM 1 MG TABLET 2 MG PO (20:45)
[2022-05-22] MEDS: traZODone HCL 100 MG TABLET PO (20:45)
[2022-05-23 06:00] VITALS: BP 132/66; PULSE 87; RESP 17; TEMP 35.7; O2SAT 97
[2022-05-23] MEDS: Metoprolol Succinate ER 12.5 MG HALFTAB.ER.24H PO (10:12)
[2022-05-23] MEDS: cloNIDine HCL 0.1 MG TABLET PO (12:35)
--- NOTE | 2022-05-23 15:46 | P.PNPSI_ITS ---
Subjective Subjective Date of Service: 05/23/22 Reason For Visit: depression Subjective Notes: Conditional Voluntary Interim History: The nursing staff reported the patient had been seen in common areas participating in groups. The neonatal social worker reported the [facility] case managing will help her and she will be discharged tomorrow with 34 On interview, the patient denies suicidal ideation, she is dysphoric but able to cope with the stressors of losing her . We discussed treatment options and she agreed to be discharged tomorrow. Mental Status Exam Mental Status Exam Patient Appearance: Well Grooomed Patient Orientation: Person, Place and Situation Level of Consciousness: Awake Patient Behavior: Cooperative Mood Description: Withdrawn and Depressed Affect Description: Constricted Patient Cognition Impaired: Yes Ability to Follow Directions: Good Speech Pattern: Clear Hallucinations: None Delusions: Not Present Thought Process: Distracted and Slowed Thinking Thought Content: positive for [place] and positive for Circumstantial Depressive Symptoms: Increased Anxiety and Crying Spells Judgement: Fair Diagnostics Vital Signs (24Hr): Vital Signs - 24 hr 05/22/22 18:00 05/23/22 06:00 Temperature 98 F 96.3 F L Pulse Rate 78 87 Respiratory Rate 16 17 Blood Pressure 120/69 132/66 Pulse Oximetry 91 L 97 Oxygen Delivery Method Room Air Room Air BMI result Body Mass Index 24.0 Labs Results: 05/02/22 13:29 05/04/22 07:55 Labs: Laboratory Results - last 48 hr 05/22/22 08:25 C. difficile Tox B Gene NEGATIVE Medications Medications Current Medications Acetaminophen (Acetaminophen 325 Mg Tablet) 650 mg PO Q6H PRN PRN Reason: Headache/Pain Mild Scale (1-3) Last Admin: 05/21/22 14:08 Dose: 650 mg Al Hydroxide/Mg Hydroxide (Magnesium Hydrox/Alum Hydrox 30 Ml Oral.Susp) 30 ml PO Q6H PRN PRN Reason: Heartburn/Nausea Brexpiprazole (Brexpiprazole 1 Mg Tablet) 1.5 mg PO DAILY@1700 [facility] Last Admin: 05/22/22 17:34 Dose: 1.5 mg Clonidine HCl (Clonidine Hcl 0.1 Mg Tablet) 0.1 mg PO BID PRN; Protocol PRN Reason: panic attack Last Admin: 05/17/22 11:08 Dose: 0.1 mg Hydroxyzine HCl (Hydroxyzine Hcl 25 Mg Tablet) 25 mg PO Q6H PRN PRN Reason: Anxiety Last Admin: 05/13/22 14:34 Dose: 25 mg Magnesium Hydroxide (Milk Of Magnesia 30 Ml Oral.Susp) 30 ml PO DAILY PRN PRN Reason: Constipation Melatonin (Melatonin 3 Mg Tablet) 3 mg PO BEDTIME [facility] Last Admin: 05/22/22 20:45 Dose: 3 mg Metoprolol Succinate (Metoprolol Succinate Er 12.5 Mg Halftab.Er.24h) 12.5 mg PO DAILY [facility]; Protocol Last Admin: 05/23/22 10:12 Dose: 12.5 mg Mirtazapine (Mirtazapine 15 Mg Tablet) 45 mg PO BEDTIME [facility] Last Admin: 05/22/22 20:45 Dose: 45 mg Trazodone HCl (Trazodone Hcl 100 Mg Tablet) 100 mg PO BEDTIME PRN PRN Reason: Insomnia Last Admin: 05/22/22 20:45 Dose: 100 mg Allergies Allergies Allergy/AdvReac Type Severity Reaction Status Date / Time adhesive AdvReac Unknown Verified 04/21/21 23:21 aspirin AdvReac Unknown Verified 04/21/21 23:20 epinephrine AdvReac Unknown Verified 04/21/21 23:21 Assessment & Plan Assessment & Plan (1) MDD (major depressive disorder), recurrent episode, moderate: Status: Acute Code(s): F33.1 - Major depressive disorder, recurrent, moderate Plan 76 yo F with COPD, HTN, hx TIA, hx hyperCA/hyperPTH s/p PTX, hx total colectomies with eventual reanastomosis for multiple precancerous polyps, s/p PPM for arrhythmia, prediabetes, depression, and PTSD admitted [facility] for Depression with SI and now found to hav C dif # C dif associated diarrhea--Present on admission -Start oral Vancomycin 250 mg QID -Contact precaution and Hand hygien (should use water and soap to watch hand before exiting room # h/o COPD - continue inhalers # HTN - continue metoprolol # HLD # hx TIA - continue statin #UTI--reduce Ceftin to 250 bid and stop aft 3 days # depression/PTSD - medications as per psychiatry team PSYCH Continue with current treatment plan: Remeron up to 45 mg p.o. q.h.s. on 05/11 with good effect Klonopin 2 mg p.o. q.h.s. started on 05/11 to target insomnia and anxiet with good effect Diflucan 1 dose po Discharge tomorrow I spent ___20___ minutes with the patient and/or on the patient floor today, greater than?50% of which was spent counseling/coordinating care. Reason for contiued inpatient stay Substantial Risk for: inability to function, rapid decompensation and med/psych decompensation
--- NOTE | 2022-05-23 15:49 | P.DS_ITS ---
DS: Providers Provider Date of Service: 05/24/22 Date of admission: 05/03/22 15:25 Date of discharge: 05/24/22 Primary care physician: Unknown Physician Consults: 05/04/22 15:00 Consult to Hospitalist Routine Consulting Provider: Hospitalist Reason For Exam: C.diff positive DS: Diagnosis Discharge Diagnosis (1) MDD (major depressive disorder), recurrent episode, moderate: Status: Acute DS: Medications Discharge Medications Home Medications: Home Medications Medication Instructions Recorded Confirmed aspirin 81 mg tablet,delayed 1 tab PO BEDTIME 05/02/22 05/02/22 release clonazepam 0.5 mg tablet 1 tab PO BID PRN anxiety attack 05/02/22 05/02/22 clonidine HCl 0.1 mg tablet 1 tab PO BID PRN panic attack 05/02/22 05/02/22 hydroxyzine pamoate 25 mg capsule 1 cap PO TID PRN anxiety 05/02/22 05/02/22 melatonin 3 mg tablet 1 tab PO BEDTIME 05/02/22 05/02/22 metoprolol succinate 25 mg 0.5 tab PO DAILY 05/02/22 05/02/22 tablet,extended release 24 hr mirtazapine 15 mg tablet 30 mg PO BEDTIME 05/02/22 05/02/22 rosuvastatin 10 mg tablet 1 tab PO BEDTIME 05/02/22 05/02/22 trazodone 100 mg tablet 1 tab PO BEDTIME PRN insomnia 05/02/22 05/02/22 Previous Rx's Medication Instructions Recorded brexpiprazole 1 mg tablet (Rexulti) 1.5 mg PO DAILY@1700 30 days #45 03/22/22 tabs Mental Status Exam Mental Status Exam Patient Appearance: Well Grooomed Patient Orientation: Person and Situation Level of Consciousness: Awake Patient Behavior: Cooperative Mood Description: Withdrawn and Depressed Affect Description: Constricted Patient Cognition Impaired: Yes Ability to Follow Directions: Good Speech Pattern: Clear Hallucinations: None Delusions: Not Present Thought Process: Distracted Thought Content: positive for [place] and positive for Circumstantial Depressive Symptoms: Increased Anxiety and Feelings of Worthlessness Judgement: Fair Data Data Completed and Pending Completed studies during hospitalization [Text1]: 05/22/22 08:25 C. difficile Tox B Gene NEGATIVE 05/03/22 00:00 Urine clean catch - Clean Catch Midstream Urine Culture - Final DS: Summary Hospital Course Hospital Course: The patient was admitted for exacerbation of depression with suicidal ideation in the context of her being more sick and at this moment terminal. Please see the HPI of the admission note for further details. The patient is very well known by this team since she has been admitted several times with a similar presentation. When she was in the unit, the patient admitted that she was feeling more dysphoric since her has been admitted to this facility and most likely he would thigh. Eventually her and she was able to visit him. The patient received psychotherapy and supportive treatment by the staff, even though that she was sad and depressed, mourning her loss, she was future oriented. She felt relieved that her was not suffering anymore. We increase Remeron up to 45 mg p.o. q.h.s. to target depression with for improvement and no evidence of side effects. We also added Klonopin 2 mg p.o. q.h.s. for sleep and anxiety. The patient was able to contract for safety and since there were no safety concerns discharge planning was discussed. The social work associate involved the family and Elder protective Services and other ancillary services for safety plan. [place] [facility] [place] mood depressed but donato affecrt will be with daugters help make arrangements pt to consider TMS Time spent discussing smoking cessation with patient: 3 to 10 minutes Status at Discharge Cognitive/behavioral status at discharge: At baseline Functional status at discharge: independent ambulation Overall status at discharge: patient is back to baseline Time Spent with Patient Time attestation: Total time spent providing and/or coordinating discharge services: Time spent: Less than 30 minutes Discharge Plan Discharge Anticipated Discharge Date/Time: 05/24/22 14:00 Patient Disposition: Home, Self-Care Discharge Diagnosis: Major depressive disorder recurrent episode severe without psychosis Referrals: Billy Bee [facility] [Other] - 05/25/22 10:00 am Gage Amado APRN [facility] [Other] - 06/21/22 11:30 am (Your next appointment with Gage Amado is scheduled for 06/21/22 at 11:30am. ) Dr Kim [Other] - 05/30/22 10:30 am [email or web address] [Other] - 1 Week ([facility] to follow up with you regarding enrollment and date for enrollment once requested documents have been received by [employer] ([email or web address]). ) [facility] [Other] - 05/24/22 3:30 pm Discharge Medications: New acetaminophen 325 mg Tablet 650 mg PO Q6H PRN (Reason: Headache/Pain Mild Scale (1-3)) 30 Days Qty: 60 0RF trazodone 100 mg Tablet 100 mg PO BEDTIME PRN (Reason: Insomnia) 30 Days Qty: 30 0RF mirtazapine 15 mg Tablet 45 mg PO BEDTIME 30 Days Qty: 90 0RF clonazepam [Klonopin] 2 mg tablet 2 mg PO BEDTIME Qty: 30 0RF Rx Instructions: administer 30 minutes before bedtime Continued clonidine HCl 0.1 mg tablet 1 tab PO BID PRN (Reason: panic attack) 30 Days Qty: 60 0RF clonazepam 0.5 mg tablet 1 tab PO BID PRN (Reason: anxiety attack) 30 Days Qty: 60 0RF melatonin 3 mg tablet 1 tab PO BEDTIME 30 Days Qty: 30 0RF aspirin 81 mg tablet,delayed release (DR/EC) 1 tab PO BEDTIME 30 Days Qty: 30 0RF metoprolol succinate 25 mg tablet extended release 24 hr 0.5 tab PO DAILY 30 Days Qty: 15 0RF rosuvastatin 10 mg tablet 1 tab PO BEDTIME 30 Days Qty: 30 0RF Rexulti 1 mg Tablet 1.5 mg PO DAILY@1700 30 Days Qty: 45 0RF Discontinued trazodone 100 mg tablet 1 tab PO BEDTIME PRN (Reason: insomnia) mirtazapine 15 mg tablet 30 mg PO BEDTIME hydroxyzine pamoate 25 mg capsule 1 cap PO TID PRN (Reason: anxiety) Discharge Orders: Discharge Order (Routine); Ordered 05/24/22 Ordered By: James Santos Diet: Advance to usual diet Activity on Discharge: As tolerated Stand Alone Forms: Patient Portal Discharge page Care Plan Goals: Care plan goals achieved in this admission Health Concerns: Continue treatment by primary care physician Plan of Treatment: Continue treatment as an outpatient Assessment: The patient is an elderly female very well known by the services she had been admitted several times to this facility who carries a diagnosis of major depressive disorder recurrent episode severe. She was admitted since she was more dysphoric and suicidal in the context of her being severely s ick. Eventually her but she was able to cope with the loss in assertive manner. Since there were no safety concerns discharge planning was discussed Discharge Date/Time: 05/24/22 13:00
[2022-05-23] MEDS: Brexpiprazole 1 MG TABLET 1.5 MG PO (16:54)
[2022-05-23 18:00] VITALS: BP 117/64; PULSE 86; RESP 12; TEMP 36.3; O2SAT 94
[2022-05-23] MEDS: Mirtazapine 15 MG TABLET 45 MG PO (20:12)
[2022-05-23] MEDS: Melatonin 3 MG TABLET PO (20:12)
[2022-05-23] MEDS: traZODone HCL 100 MG TABLET PO (20:52)
[2022-05-24] MEDS: Metoprolol Succinate ER 12.5 MG HALFTAB.ER.24H PO (09:27)
--- NOTE | 2022-05-24 13:26 | PC.NURSE ---
Patient alert and oriented. Expresses readiness for discharge. Denies SI/HI/AH/VH. Follow up appointments made. Patient verbalized understanding of instructions. All belongings accounted for. Patient escorted to front of hospital by staff.
== END 2022-05-24 13:00 | disposition home or self-care (01) | DRG 885 ==
LOC: HO.ED 05-03 10:00 → HO.PGERI 05-03 15:38
PROVIDERS: Nurse Practitioner Family; Admitting Provider Psychiatry & Neurology Psychiatry; Emergency Provider Emergency Medicine; PCP Internal Medicine; Visit Provider Psychiatry & Neurology Psychiatry
DX: F33.1 Major depressive disorder, recurrent, moderate (principal); R45.851 Suicidal ideations; N39.0 Urinary tract infection, site not specified; A04.72 Enterocolitis due to Clostridium difficile, not specified as recurrent; J44.9 Chronic obstructive pulmonary disease, unspecified; E78.5 Hyperlipidemia, unspecified; F43.10 Post-traumatic stress disorder, unspecified; F17.210 Nicotine dependence, cigarettes, uncomplicated; Z71.6 Tobacco abuse counseling; Z20.822 Contact with and (suspected) exposure to COVID-19; Z88.6 Allergy status to analgesic agent; Z88.8 Allergy status to other drugs, medicaments and biological substances; Z79.82 Long term (current) use of aspirin; Z79.899 Other long term (current) drug therapy
CPT/HCPCS: 36415; 80048; 80053; 80061; 80076; 80143; 80179; 80307; 81001; 81003; 82077; 85025; 87086; 87324; 87493; 87507; 87635; 90792; 93005; 99285

== ENCOUNTER 2022-05-29 20:20 | Emergency (ER) | payer MEDICARE, SELFPAY ==
--- NOTE | 2022-05-29 | ECG_ITS ---
Test Reason : MED CLEARANCE Blood Pressure : / mmHG Vent. Rate : 088 BPM Atrial Rate : 088 BPM P-R Int : 182 ms QRS Dur : 132 ms QT Int : 418 ms P-R-T Axes : -25 028 240 degrees QTc Int : 505 ms Normal sinus rhythm Left bundle branch block T-wave inversion in Inferior leads Abnormal ECG When compared with ECG of 03-MAY-2022 14:36, T wave inversion now evident in Inferior leads Referred By: Krista Alvarado Electronically Signed By:ROSARIO HERR MD
[2022-05-29 20:30] VITALS: BP 103/60; PULSE 93; RESP 16; TEMP 36.6; O2SAT 96; BMI 25.0
[2022-05-29 20:52] LABS: Appearance Urine Clear; Color Urine Yellow; Glucose Urine UA Negative (Negative); Leukocyte Esterase Urine Large (3+) (Negative); Nitrite Urine Negative (Negative); UMIC TRIGGER UA YES; Urine Blood Negative (Negative); Urine Ketones Negative (Negative); Urine Protein Negative (Neg-Trace)
[2022-05-29 20:54] LABS: Bacteria Urine None Seen (None Seen); Hyaline Casts Urine 0-2 /LPF (0-2); RBC Urine 0-2 /HPF (0-2); WBC Urine >50 /HPF (0-5)
--- NOTE | 2022-05-29 20:55 | ED_ITS ---
HPI - Psych General Chief Complaint: Psychiatric Symptoms Stated Complaint: crisis Time Seen by Provider: 05/29/22 20:36 Source: patient and EMS Mode of arrival: EMS Limitations: no limitations History of Present Illness HPI Narrative: 77 yo female with history of major depression, COPD, PTSD, C. diff, HTN, HLD who is been admitted to our psychiatric unit several times, most recently discharged on 05/23 who presents back to the ER for evaluation of worsening depression and suicidal ideation. She has a plan to overdose on her medications. During her last admission her . She has felt very overwhelmed and depressed. She was discharged on May 23 with plan for multiple services at home and multiple appointments in the community. She states a lot of them have fallen through and does not know why. She had a nurse come to the house today to set up her electronic pill legal office administrator, meds were refilled into the machine and the additional bottles with medications that could not fit were left under counter. She felt this was very tempting as a means for overdose. She went to her neighbor for help. She states she would never actually overdose on her medications because she would not want to cause her family the heart break, she has 2 daughters and a granddaughter. complaint: suicidal ideation and feels depressed Onset (ago): week(s) Duration: constant and changing over time History of same: Yes Relieving factors: none Exacerbating factors: none Associated psychiatric symptoms: depression and suicidal ideation Associated symptoms: denies other symptoms Treatments prior to arrival: placed on mental health hold If self harm: admits thoughts of self harm and has plan Details of plan: Overdose on her medications Related Data Home Medications Medication Instructions Recorded Confirmed fluoxetine 20 mg capsule 3 cap PO DAILY 05/29/22 05/29/22 risperidone 1 mg tablet 1 tab PO QAM 05/29/22 05/29/22 risperidone 2 mg tablet 1 tab PO BEDTIME 05/29/22 05/29/22 Previous Rx's Medication Instructions Recorded acetaminophen 325 mg tablet 650 mg PO Q6H PRN Headache/Pain 05/23/22 Mild Scale (1-3) 30 days #60 tabs aspirin 81 mg tablet,delayed 1 tab PO BEDTIME 30 days #30 tabs 05/23/22 release brexpiprazole 1 mg tablet (Rexulti) 1.5 mg PO DAILY@1700 30 days #45 05/23/22 tabs clonazepam 0.5 mg tablet 1 tab PO BID PRN anxiety attack 30 05/23/22 days #60 tabs clonazepam 2 mg tablet (Klonopin) 2 mg PO BEDTIME #30 tabs 05/23/22 clonidine HCl 0.1 mg tablet 1 tab PO BID PRN panic attack 30 05/23/22 days #60 tabs melatonin 3 mg tablet 1 tab PO BEDTIME 30 days #30 tabs 05/23/22 metoprolol succinate 25 mg 0.5 tab PO DAILY 30 days #15 tabs 05/23/22 tablet,extended release 24 hr mirtazapine 15 mg tablet 45 mg PO BEDTIME 30 days #90 tabs 05/23/22 rosuvastatin 10 mg tablet 1 tab PO BEDTIME 30 days #30 tabs 05/23/22 trazodone 100 mg tablet 100 mg PO BEDTIME PRN Insomnia 30 05/23/22 days #30 tabs Allergies Allergy/AdvReac Type Severity Reaction Status Date / Time adhesive AdvReac Unknown Verified 04/21/21 23:21 aspirin AdvReac Unknown Verified 04/21/21 23:20 epinephrine AdvReac Unknown Verified 04/21/21 23:21 Review of Systems Review of Systems: Constitutional: No Fever, No Chills ENT/Mouth: No sore throat, No Rhinorrhea, No Swallowing Difficulty Eyes: No Eye Pain, No Swelling, No Redness Cardiovascular: No Chest Pain, No SOB, No Orthopnea, No Edema Respiratory: No Cough, No Sputum, No Wheezing, No dyspnea Gastrointestinal: No Nausea, No Vomiting, No Diarrhea, No abdominal Pain Genitourinary: No Dysuria, No Urinary Frequency, No Hematuria Musculoskeletal: No joint pain, No Myalgias Skin: No Skin Lesions, No rash Neuro: No Weakness, No Numbness, No Dizziness, No Headache Psych: + Anxiety/Panic, +Depression, +SI, No HI, No VH, No AH Heme/Lymph: No Bruising, No Lymphadenopathy Endocrine: No Polyuria, No Polydipsia PMFSH Past Medical History Medical History (Updated 05/29/22 @ 22:54 by BRANDI Huff) C. difficile diarrhea COPD (chronic obstructive pulmonary disease) Depression Essential hypertension Hyperlipidemia Mitral valve prolapse Prediabetes PTSD (post-traumatic stress disorder) TIA (transient ischemic attack) Tobacco abuse Surgical History History of colectomy History of parathyroidectomy Social History Social History Household Members: None Housing: Apartment Do you presently have visiting nurse or other home services: No Alcohol intake: never Patient Tobacco Use Status: Current everyday Tobacco user Tobacco use type: Cigarette Cigarette Packs Per Day: 0.1 Cigarettes Per Day: 6 Years Smoked: 20 e-Cigarette/Vaping Use: Currently Using Second Hand Smoke Exposure: No Substance Use Type: Prescription Drugs and Caffiene Advance Directives: Yes Advance Directives on File: Yes Advance Directives Date on File: 02/08/22 service: No Sexual orientation: Straight/Heterosexual Physical Exam Vital Signs: Vital Signs: Last Vital Signs Temp 98 F 05/29/22 20:30 Pulse 93 05/29/22 20:30 Resp 16 05/29/22 20:30 BP 103/60 05/29/22 20:30 Pulse Ox 96 05/29/22 20:30 O2 Del Method 05/29/22 20:30 BMI result Body Mass Index 25.0 Appearance: Alert. Oriented X3. No acute distress. Eyes: Pupils equal, round and reactive to light. ENT: Pharynx normal. Neck: Normal inspection. Neck supple. CVS: Normal heart rate and rhythm. Pulses normal. Respiratory: No respiratory distress. Breath sounds normal. Abdomen: Soft and nontender. +BS x4 Skin: Skin warm and dry. Normal skin color. Normal skin turgor. No rashes. Extremities: No lower extremity edema. Neuro/psych: Oriented X 3. No motor deficit. No sensory deficit. CN II-XII intact. Depressed. answers questions appropriately. Course Course Course Narrative: 77-year-old female with history of major depressive disorder and recent admission for suicidal ideation in the setting of losing her of 62 years who presents to the ER with ongoing depression and suicidal ideation. She did have services in appointments fall through which have had a negative impact. Will get basic lab workup, UA, U tox and have crisis team evaluate her. Reevaluation(s) Reevaluation #1: Patient has a positive urinalysis. No dysuria, hematuria, urgency or frequency. Will empirically treat with Ceftin. She has a history of pansensitive E coli in the past. Lab workup was otherwise unremarkable. Patient seen and evaluated by the care team. Plan for re-evaluation in the morning. Hope is to talk to the S1 transition social worker to help arrange services outpatient. Hoping to avoid inpatient psych admission again but will reassess in the morning. Will place patient in physician observation at this time. Physician observation started at 10:51pm. Patient placed in physician observation because patient is awaiting re-evaluation by CARE team, transition social worker and family preservation caseworker involvement.. At the time observation was started patient's vital signs were stable. Patient is alert and oriented. Neuro exam is non-focal. CV: RRR and lungs are clear. Will continue to monitor. Medications Administered Generic Name Dose Route Start Last Admin Trade Name Freq PRN Reason Stop Dose Admin Cefuroxime Axetil 250 mg 05/29/22 21:00 05/29/22 21:14 Cefuroxime Axetil 250 Mg Tablet PO 250 mg BID HAJA Administration MDM - Psych Medical Records Attestation: I reviewed the patient's medical records. Lab Data Attestation: I reviewed the patient's lab results. Result diagrams: 05/29/22 21:26 05/29/22 21:26 Labs: Lab Results 05/29/22 05/29/22 05/29/22 Range/Units 20:45 20:45 20:45 WBC (4.8-10.8) X10*3/uL RBC (4.20-5.50) X10*6/uL Hgb (12.0-16.0) g/dl Hct (37.0-47.0) % MCV (80.0-98.0) fL MCH (27.0-33.0) pg MCHC (31.0-35.0) g/dl RDW (11.0-16.0) % Plt Count (160-400) X10*3/uL MPV (9.4-12.3) fL Immature Gran % (Auto) (0.0-0.4) % Neut % (Auto) (45-73) % Lymph % (Auto) (20-40) % [place] % (Auto) (2-11) % Eos % (Auto) (0-4) % Baso % (Auto) (0-2) % Lymph # (Auto) (1.2-4.9) X10*3/uL [place] # (Auto) (0.1-1.2) X10*3/uL Eos # (Auto) (0.0-0.4) X10*3/uL Baso # (Auto) (0.0-0.2) X10*3/uL Abs Immat Gran (auto) (0.00-0.03) X10*3/uL Absolute Neuts (auto) (2.0-8.3) x10*3/uL Absolute Nucleated RBC (0.0-0.012) X10*3/uL Nucleated RBC % (auto) (0.0-0.2) /100WBC Sodium (135-145) mmol/L Potassium (3.3-5.1) mmol/L Chloride (96-108) mmol/L Carbon Dioxide (22-29) mmol/L Anion Gap (12-20) BUN (9-16) mg/dL Creatinine (0.5-1.4) mg/dL Estim Creat Clear Calc Estimated GFR Random Glucose (60-115) mg/dL Calcium (8.4-10.2) mg/dL Total Bilirubin (0.0-1.0) mg/dL AST (5-31) U/L ALT (0-31) U/L Alkaline Phosphatase (39-117) U/L Total Protein (6.5-8.0) g/dL Albumin (3.5-5.0) g/dL Urine Color Yellow Urine Appearance Clear Urine pH 5.0 (5.0-9.0) Ur Specific [place] 1.010 (1.005-1.025) Urine Protein Negative (Neg-Trace) mg/dL Urine Glucose (UA) Negative (Negative) mg/dL Urine Ketones Negative (Negative) mg/dL Urine Blood Negative (Negative) Urine Nitrite Negative (Negative) Ur Leukocyte Esterase Large (3+) H (Negative) Urine RBC 0-2 (0-2) /HPF Urine WBC >50 H (0-5) /HPF Ur Squamous Epith Cells 3-5 (0-2) /HPF Urine Bacteria None Seen (None Seen) Hyaline Casts 0-2 (0-2) /LPF Urine Opiates Screen Not Detected (Not Detect) Urine Fentanyl Screen Not Detected (Not Detect) Ur Barbiturates Screen Not Detected (Not Detect) Ur Phencyclidine Scrn Not Detected (Not Detect) Ur Amphetamines Screen Not Detected (Not Detect) U Benzodiazepines Scrn Not Detected (Not Detect) Urine Cocaine Screen Not Detected (Not Detect) U Marijuana (THC) Screen Not Detected (Not Detect) COVID-19 (LANE) Negative (Negative) COVID-19 Clin Com See Note 05/29/22 05/29/22 Range/Units 21:26 21:26 WBC 9.3 (4.8-10.8) X10*3/uL RBC 4.03 L (4.20-5.50) X10*6/uL Hgb 12.2 (12.0-16.0) g/dl Hct 35.4 L (37.0-47.0) % MCV 87.8 (80.0-98.0) fL MCH 30.3 (27.0-33.0) pg MCHC 34.5 (31.0-35.0) g/dl RDW 13.8 (11.0-16.0) % Plt Count 280 (160-400) X10*3/uL MPV 9.9 (9.4-12.3) fL Immature Gran % (Auto) 0.3 (0.0-0.4) % Neut % (Auto) 61.1 (45-73) % Lymph % (Auto) 25.5 (20-40) % [place] % (Auto) 9.5 (2-11) % Eos % (Auto) 3.0 (0-4) % Baso % (Auto) 0.6 (0-2) % Lymph # (Auto) 2.4 (1.2-4.9) X10*3/uL [place] # (Auto) 0.9 (0.1-1.2) X10*3/uL Eos # (Auto) 0.3 (0.0-0.4) X10*3/uL Baso # (Auto) 0.1 (0.0-0.2) X10*3/uL Abs Immat Gran (auto) 0.03 (0.00-0.03) X10*3/uL Absolute Neuts (auto) 5.6 (2.0-8.3) x10*3/uL Absolute Nucleated RBC 0.000 (0.0-0.012) X10*3/uL Nucleated RBC % (auto) 0.0 (0.0-0.2) /100WBC Sodium 139 (135-145) mmol/L Potassium 3.5 D (3.3-5.1) mmol/L Chloride 105 (96-108) mmol/L Carbon Dioxide 23 (22-29) mmol/L Anion Gap 15 (12-20) BUN 11 (9-16) mg/dL Creatinine 0.81 (0.5-1.4) mg/dL Estim Creat Clear Calc 57.4 Estimated GFR > 60 Random Glucose 155 H (60-115) mg/dL Calcium 9.0 (8.4-10.2) mg/dL Total Bilirubin 0.3 (0.0-1.0) mg/dL AST 13 (5-31) U/L ALT 11 (0-31) U/L Alkaline Phosphatase 59 (39-117) U/L Total Protein 5.8 L (6.5-8.0) g/dL Albumin 3.5 (3.5-5.0) g/dL Urine Color Urine Appearance Urine pH (5.0-9.0) Ur Specific [place] (1.005-1.025) Urine Protein (Neg-Trace) mg/dL Urine Glucose (UA) (Negative) mg/dL Urine Ketones (Negative) mg/dL Urine Blood (Negative) Urine Nitrite (Negative) Ur Leukocyte Esterase (Negative) Urine RBC (0-2) /HPF Urine WBC (0-5) /HPF Ur Squamous Epith Cells (0-2) /HPF Urine Bacteria (None Seen) Hyaline Casts (0-2) /LPF Urine Opiates Screen (Not Detect) Urine Fentanyl Screen (Not Detect) Ur Barbiturates Screen (Not Detect) Ur Phencyclidine Scrn (Not Detect) Ur Amphetamines Screen (Not Detect) U Benzodiazepines Scrn (Not Detect) Urine Cocaine Screen (Not Detect) U Marijuana (THC) Screen (Not Detect) COVID-19 (LANE) (Negative) COVID-19 Clin Com ECG Data Attestation: I personally reviewed and interpreted this ECG as follows: ECG interpretation date: 05/29/22 ECG interpretation time: 22:52 Prior ECG tracings: available for review Interpretation: normal sinus rhythm, HR 88 bpm, normla PA interval, LBBB, T-wave inversions in lateral leads that were present on prior in April Critical Care Time Critical Care Time Critical Care Time: No Discharge Plan Discharge Clinical Impression: MDD (major depressive disorder), recurrent episode, moderate, Suicidal ideation Patient Disposition: Still a Patient Prescriptions: No Action acetaminophen 325 mg Tablet 650 mg PO Q6H PRN (Reason: Headache/Pain Mild Scale (1-3)) 30 Days Qty: 60 0 RF trazodone 100 mg Tablet 100 mg PO BEDTIME PRN (Reason: Insomnia) 30 Days Qty: 30 0RF mirtazapine 15 mg Tablet 45 mg PO BEDTIME 30 Days Qty: 90 0RF clonidine HCl 0.1 mg tablet 1 tab PO BID PRN (Reason: panic attack) 30 Days Qty: 60 0RF clonazepam 0.5 mg tablet 1 tab PO BID PRN (Reason: anxiety attack) 30 Days Qty: 60 0RF melatonin 3 mg tablet 1 tab PO BEDTIME 30 Days Qty: 30 0RF aspirin 81 mg tablet,delayed release (DR/EC) 1 tab PO BEDTIME 30 Days Qty: 30 0RF metoprolol succinate 25 mg tablet extended release 24 hr 0.5 tab PO DAILY 30 Days Qty: 15 0RF rosuvastatin 10 mg tablet 1 tab PO BEDTIME 30 Days Qty: 30 0RF Rexulti 1 mg Tablet 1.5 mg PO DAILY@1700 30 Days Qty: 45 0RF clonazepam [Klonopin] 2 mg tablet 2 mg PO BEDTIME Qty: 30 0RF Rx Instructions: administer 30 minutes before bedtime risperidone 2 mg tablet 1 tab PO BEDTIME fluoxetine 20 mg capsule 3 cap PO DAILY risperidone 1 mg tablet 1 tab PO QAM
[2022-05-29 21:03] LABS: COVID-19 Test Negative (Negative); IDNOW Serial# 16C4AD1C
[2022-05-29 21:13] LABS: Amphetamine Screen Urine Not Detected (Not Detect); Barbiturates, Urine Not Detected (Not Detect); Benzodiazepines Screen Urine Not Detected (Not Detect); Cannabinoid Screen Urine Not Detected (Not Detect); Cocaine Screen Urine Not Detected (Not Detect); Fentanyl, urine Not Detected (Not Detect); Opiate Screen Urine Not Detected (Not Detect); Phencyclidine Screen Urine Not Detected (Not Detect)
[2022-05-29 21:31] LABS: MANUAL DIFF FLAG NO
[2022-05-29 21:32] LABS: Basophils Absolute Auto 0.1 X10*3/uL (0.0-0.2); Basophils Percent Auto 0.6 % (0-2); Eosinophils Absolute Auto 0.3 X10*3/uL (0.0-0.4); Hematocrit 35.4 % (37.0-47.0); Hemoglobin 12.2 g/dl (12.0-16.0); Imm Gran Abs Auto 0.03 X10*3/uL (0.00-0.03); Imm Gran Pct Auto 0.3 % (0.0-0.4); Lymphocytes Absolute Auto 2.4 X10*3/uL (1.2-4.9); Lymphocytes Percent Auto 25.5 % (20-40); Mean Corpuscular HGB Conc 34.5 g/dl (31.0-35.0); Mean Corpuscular Hemoglobin 30.3 pg (27.0-33.0); Mean Corpuscular Volume 87.8 fL (80.0-98.0); Mean Platelet Volume 9.9 fL (9.4-12.3); Monocytes Absolute Auto 0.9 X10*3/uL (0.1-1.2); Monocytes Percent Auto 9.5 % (2-11); Neutrophils Absolute Auto 5.6 x10*3/uL (2.0-8.3); Neutrophils Percent Auto 61.1 % (45-73); Platelet Count 280 X10*3/uL (160-400); Red Blood Count 4.03 X10*6/uL (4.20-5.50); Red Cell Distribution Width 13.8 % (11.0-16.0); White Blood Count 9.3 X10*3/uL (4.8-10.8)
[2022-05-29 21:51] LABS: Alanine Aminotransferase 11 U/L (0-31); Albumin Level 3.5 g/dL (3.5-5.0); Alkaline Phosphatase 59 U/L (39-117); Anion Gap 15 (12-20); Aspartate Amino Transferase 13 U/L (5-31); Bilirubin Total 0.3 mg/dL (0.0-1.0); Blood Urea Nitrogen 11 mg/dL (9-16); Carbon Dioxide 23 mmol/L (22-29); Chloride 105 mmol/L (96-108); Creatinine Clr Calc Pharmacy 57.4; Estimated Glomerular Filt Rate > 60; Glucose Random 155 mg/dL (60-115); Potassium 3.5 mmol/L (3.3-5.1); Sodium 139 mmol/L (135-145); Total Protein 5.8 g/dL (6.5-8.0)
--- NOTE | 2022-05-30 05:09 | PC.NURSE ---
Patient slept through the night, no distress observed/reported, behavior non concerning at this time, med rec completed/SEP active, + UTI Ceftin 250 mg BID started/received her first dose yesterday evening, patient engaged well with care team, disposition elva follow up/patient will be reevaluated in the morning by care team, VSS, will continue to monitor.
[2022-05-30 05:38] VITALS: BP 132/75; PULSE 86; RESP 15; TEMP 36.3; O2SAT 95
[2022-05-30] MEDS: clonazePAM 0.5 MG TABLET PO (06:07)
--- NOTE | 2022-05-30 06:08 | PC.NURSE ---
Patient just woke up reported having racing thought, PRN Klonopin 0.5 mg administered at 0607/pending effect, will continue to monitor.
[2022-05-30 08:02] VITALS: BP 122/64; PULSE 70; RESP 16; TEMP 37.1; O2SAT 98
[2022-05-30] MEDS: FLUoxetine HCl 20 MG CAPSULE 60 MG PO (08:53)
[2022-05-30] MEDS: risperiDONE 1 MG TABLET PO (08:53)
[2022-05-30] MEDS: Metoprolol Succinate ER 12.5 MG HALFTAB.ER.24H PO (08:53)
--- NOTE | 2022-05-30 11:35 | MHC.CARE ---
Care Team left a voice message for [facility] Carpenter Apprentice Shirley ext [phone]. Purpose of call was to gain insight into pt services and if any concerns. Care Team had a telephonic encounter with [facility] Protective Washing Machine Repairer Keisha Vásquezkvngselma ext [phone]. Purpose of call was to gain insight onto pt and if any concerns. She reported not being aware of any concerns and stated pt's and pt's dtr reported they will provide missing documentation for [facility] application. which its required for the [facility] application.
--- NOTE | 2022-05-30 16:02 | MHC.CARE ---
Care Team received a call from [facility] ALIDA Watson and she reported pt receives HDM 5 days/wk for lunch and supper, Personal alarm (PERS), Be Safer at Home Visiting Nurses for medication management. Pt was referred to money management but its been difficult to schedule a visit with pt. CM reported visiting pt on May 24 to follow up with pt. She reported she discussed getting rid of 's medication due to recently passing away. She reported pt's dtr reported she will be helping pt with submitting financial documentation for [employer] application. She also stated pt meets once per week with therapist and WET MACHINE OPERATOR at [facility].
== END 2022-05-30 13:53 | disposition home or self-care (01) ==
PROVIDERS: Emergency Provider Emergency Medicine; PCP Internal Medicine
DX: F33.1 Major depressive disorder, recurrent, moderate (principal); R45.851 Suicidal ideations; I10 Essential (primary) hypertension; Z20.822 Contact with and (suspected) exposure to COVID-19; Z79.899 Other long term (current) drug therapy
CPT/HCPCS: 36415; 80053; 80307; 81001; 85025; 87635; 93005; 99284

== ENCOUNTER 2022-10-14 03:59 | Inpatient (IN) | payer MEDICARE, SELFPAY ==
--- NOTE | ~2022-10-14 | CT_ITS ---
CT HEAD WITHOUT CONTRAST CLINICAL INFORMATION: New onset kaylie. Question recent stroke. COMPARISON: Head CT 11/28/2021. TECHNIQUE: Contiguous axial imaging was performed from the skull base to vertex without intravenous administration of contrast. This CT examination was performed using dose optimization techniques as appropriate, variously including the following: *Automated exposure control *Adjustment of mA and/or kV according to patient size (this includes techniques or standardized protocols for targeted exams where dose is matched to indication/reason for exam; i.e. extremities or head) *Use of iterative reconstruction technique FINDINGS: There is global cerebral volume loss, there is mild to moderate chronic microangiopathy, and there is atherosclerotic calcification throughout the intracranial arterial vasculature. There is no intracranial hemorrhage, hydrocephalus, extra-axial surface collection, midline shift, or other herniation pattern. Melissa to white matter differentiation is diffusely maintained without evidence of an evolved acute territorial infarct. The basilar cisterns are preserved. No significant soft tissue abnormality. No acute osseous abnormality. The paranasal sinuses and the mastoid air cells are well aerated. CT/CT head/brain wo IV con IMPRESSION: - No acute intracranial abnormality. 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
--- NOTE | 2022-10-14 04:02 | ECG_ITS ---
Test Reason : WEAKNESS Blood Pressure : / mmHG Vent. Rate : 114 BPM Atrial Rate : 114 BPM P-R Int : 162 ms QRS Dur : 120 ms QT Int : 356 ms P-R-T Axes : -14 035 066 degrees QTc Int : 490 ms Sinus tachycardia Left ventricular hypertrophy with QRS widening and repolarization abnormality ( [place] product ) Abnormal ECG When compared with ECG of 29-MAY-2022 20:49, Left bundle branch block is no longer Present Referred By: Rachna Avila Electronically Signed By:Mati Emmanuel
[2022-10-14 04:09] VITALS: BP 120/80; BP 166/108; PULSE 104; PULSE 120; RESP 14; TEMP 36.6; O2SAT 96; O2SAT 98; BMI 22.7
[2022-10-14 04:39] LABS: Basophils Absolute Auto 0.1 X10*3/uL (0.0-0.2); Basophils Percent Auto 0.5 % (0-2); Eosinophils Absolute Auto 0.1 X10*3/uL (0.0-0.4); Hematocrit 44.2 % (37.0-47.0); Hemoglobin 15.7 g/dl (12.0-16.0); Imm Gran Abs Auto 0.04 X10*3/uL (0.00-0.03); Imm Gran Pct Auto 0.4 % (0.0-0.4); Lymphocytes Absolute Auto 1.9 X10*3/uL (1.2-4.9); Lymphocytes Percent Auto 17.6 % (20-40); MANUAL DIFF FLAG NO; Mean Corpuscular HGB Conc 35.5 g/dl (31.0-35.0); Mean Corpuscular Volume 84.4 fL (80.0-98.0); Mean Platelet Volume 9.4 fL (9.4-12.3); Monocytes Absolute Auto 0.9 X10*3/uL (0.1-1.2); Monocytes Percent Auto 8.3 % (2-11); Neutrophils Absolute Auto 7.8 x10*3/uL (2.0-8.3); Neutrophils Percent Auto 72.2 % (45-73); Platelet Count 292 X10*3/uL (160-400); Red Blood Count 5.24 X10*6/uL (4.20-5.50); Red Cell Distribution Width 13.2 % (11.0-16.0); White Blood Count 10.8 X10*3/uL (4.8-10.8)
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
[2022-10-14 04:55] LABS: Anion Gap 15 (12-20); Blood Urea Nitrogen 14 mg/dL (9-16); Calcium 9.6 mg/dL (8.4-10.2); Carbon Dioxide 22 mmol/L (22-29); Chloride 104 mmol/L (96-108); Creatinine Clr Calc Pharmacy 61.4; Estimated Glomerular Filt Rate > 60; Glucose Random 113 mg/dL (60-115); Sodium 137 mmol/L (135-145)
[2022-10-14 05:15] LABS: COVID-19 Test Negative (Negative); IDNOW Serial# 6674DD1D
[2022-10-14 05:26] LABS: Ethanol < 10 mg/dL
--- NOTE | 2022-10-14 05:42 | PC.NURSE ---
Patient just got transferred from main ED, no distress observed/reported, gait independent, med rec completed/pending provider's approval, patient unable to provide urine sample at this time but agreed to provide one when she needs to go, care consult ordered/pending care team evaluation, alert and oriented, coherent but depressed, behavior non concerning, will continue to monitor.
[2022-10-14] MEDS: clonazePAM 1 MG TABLET 2 MG PO ×2 (08:16→20:20)
--- NOTE | 2022-10-14 08:23 | PC.NURSE ---
pt reports a lot of anxiety, requesting med to help with this, klonopin 1mg given, 2mg ordered as she never got her night dose last night but 1mg given as she reports drunk when she takes 2mg , pt had episode of not being able to speak and was stuttering uncontrolled, this lasted for a few minutes and then passed, drinking her breakfast coffee,
--- NOTE | 2022-10-14 08:29 | PC.NURSE ---
pt states she was taken off the prozac retuxi and the remeron
--- NOTE | 2022-10-14 09:47 | PHA.MEDREC ---
Pharmacy Consult ? Medication Reconciliation Pharmacy has completed the medication reconciliation. Spoke to patient to confirm meds. Patient states that they stopped taking Mirtazapine 45mg, rosuvastatin 10mg, and fluoxetine 60mg for quite some time now. Patient states that Dr. Plascencia was made aware of patient's decision to stop these meds.
[2022-10-14 13:47] LABS: Appearance Urine Clear; Color Urine Yellow; Glucose Urine UA Negative (Negative); Leukocyte Esterase Urine Trace (Negative); Nitrite Urine Negative (Negative); Specific Gravity - Urine 1.015 (1.005-1.025); UMIC TRIGGER UACC YES; Urine Blood Negative (Negative); Urine Ketones 15 mg/dL (Negative); Urine Protein 30 (1+) mg/dL (Neg-Trace)
[2022-10-14] MEDS: clonazePAM 0.5 MG TABLET PO (13:48)
[2022-10-14 13:52] LABS: Bacteria Urine None Seen (None Seen); Hyaline Casts Urine 0-2 /LPF (0-2); RBC Urine 0-2 /HPF (0-2); Squamous Epithelial Cell Urine 0-2 /HPF (0-2); WBC Urine 0-5 /HPF (0-5)
[2022-10-14 13:56] LABS: Amphetamine Screen Urine Not Detected (Not Detect); Barbiturates, Urine Not Detected (Not Detect); Benzodiazepines Screen Urine Not Detected (Not Detect); Cannabinoid Screen Urine Not Detected (Not Detect); Cocaine Screen Urine Not Detected (Not Detect); Fentanyl, urine Not Detected (Not Detect); Opiate Screen Urine Not Detected (Not Detect); Phencyclidine Screen Urine Not Detected (Not Detect)
--- NOTE | 2022-10-14 14:09 | PC.NURSE ---
alert, steady gait, states that klonopin helped this morning but anxiety is back, prn klonopin given, pt spent some time talking about some recent stressful life events and back to room
[2022-10-14] MEDS: Brexpiprazole 1 MG TABLET 1.5 MG PO (17:07)
[2022-10-14 18:17] VITALS: BP 191/116; PULSE 103; RESP 18; TEMP 36.9; O2SAT 96
--- NOTE | 2022-10-14 18:17 | PC.NURSE ---
blood pressure continues to be high ,MD aware no new orders at this time
--- NOTE | 2022-10-14 19:01 | PC.NURSE ---
patient is resting comfortably on bed at this time, denies pain, no apparent distress. Eating dinner at this time
--- NOTE | 2022-10-14 19:09 | PC.NURSE ---
pts daughter called and spoke with this RN, wanted to pass message along to pt. Pt refused to speak with daughter on the phone
[2022-10-14] MEDS: Mirtazapine 15 MG TABLET 45 MG PO (20:20)
--- NOTE | 2022-10-14 21:42 | PC.NURSE ---
pt resting comfortably on bed at this time, denies pain, respirations even and unlabored, skin pwd
[2022-10-14 21:49] VITALS: BP 157/111; PULSE 114; RESP 18; TEMP 36.9; O2SAT 95
[2022-10-14] MEDS: Metoprolol Succinate ER 12.5 MG HALFTAB.ER.24H PO (22:05)
--- NOTE | 2022-10-14 22:09 | PC.NURSE ---
blood pressure continues to be high, this RN spoke with Malachi PAZ who decided to start pts metoprolol again to see if it helps bring the pressure and heart rate again
[2022-10-15 01:08] VITALS: BP 147/91; PULSE 101; RESP 18; O2SAT 94
--- NOTE | 2022-10-15 01:16 | PC.NURSE ---
vital signs have improved post metoprolol, patient is now sleeping, respirations even and unlabored, skin pwd, no apparent distress. continue plan of care for leroy-psych bedsearch
[2022-10-15 06:08] VITALS: BP 127/86; PULSE 94; TEMP 36.1; O2SAT 97
[2022-10-15] MEDS: Metoprolol Succinate ER 12.5 MG HALFTAB.ER.24H PO (09:30)
[2022-10-15] MEDS: FLUoxetine HCl 20 MG CAPSULE 60 MG PO (09:30)
[2022-10-15] MEDS: clonazePAM 0.5 MG TABLET PO (09:30)
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
--- NOTE | 2022-10-15 16:08 | PC.ADMIT ---
this is one of multiple admission to S[facility], arrived on unit at 1345 and placed on 5 minute safety checks, referred by [facility] team with diagnosis of Major depressive disorder, recurrent severe without psych features. Pt pleasant and cooperative during admission process. signed a CV. oriented to unit, presenting event: pt feeling suicidal due to missing late who in Jun 2022. pt is not at her baseline in functioning, not sleeping and eating, pt reports over 50LB weight loss. pt stated she looks for her around the house and even calls out his name. pt reports conflict with daughter Lindsey Cali, who is HCP, she rahman not want her to come visit or continue to be her HCP. Pt doesn't want her neighbor Trent Bautista to visit Cement Worker will update mold worker. Pt denies SI/HI/AVH,
[2022-10-15] MEDS: Brexpiprazole 1 MG TABLET 1.5 MG PO (17:58)
[2022-10-15 18:00] VITALS: BP 137/95; PULSE 98; RESP 18; TEMP 36.1; O2SAT 95
[2022-10-15] MEDS: Mirtazapine 15 MG TABLET 45 MG PO (20:40)
[2022-10-15] MEDS: clonazePAM 1 MG TABLET 2 MG PO (20:40)
[2022-10-15] MEDS: traZODone HCL 100 MG TABLET PO (20:41)
[2022-10-15] MEDS: Acetaminophen 325 MG TABLET 650 MG PO (20:41)
[2022-10-16 08:00] VITALS: BP 125/58; PULSE 99; RESP 16; TEMP 35.8; O2SAT 96
--- NOTE | 2022-10-16 08:02 | MHC.CARE ---
10/15/22:? CARE Team spoke with pt?s daughter, Lindsey Cali, who returned an earlier call made by the CARE Team. She reports that this is the first Easter without her Father and it has been difficult for pt.? She reports that after her inpatient stay, pt was doing ?very well?.? Pt was performing her ADLs, going out shopping a couple of days a week with a friend, socializing more, was taking music classes, painting with water colors, and had been experimenting with [place] language classes.? Pt .even had a trip planned which is coming up in the near future. Ms. Cali stated that pt has never been outgoing and has been engaging in solitary activities because of that but she is trying new things.? She reports her Father was ?Controlling? and now pt has far more freedom and has enjoyed shopping and exploring new past times. Ms. Cali reports that pt began acting ?manic? over the last week and then ?crashed?.? She reports that pt was ?compulsively shopping?, cleaning the house at 2:00AM, and went 2 days without sleep. Pt spoke to her prescriber regarding her medications as she believed that her medications were not working.? Her Doctor increased her dosage of Trazedone because she wasn?t sleeping.? Pt is also not eating well and has experienced weight loss.? By Ms. Cali?s report, pt?s doctore attributes this to lingering Covid. Pt was recently discharged from [facility] approximately 4 weeks ago for an alleged stroke.?
[2022-10-16] MEDS: FLUoxetine HCl 20 MG CAPSULE 60 MG PO (08:12)
[2022-10-16] MEDS: Metoprolol Succinate ER 12.5 MG HALFTAB.ER.24H PO (08:13)
[2022-10-16] MEDS: clonazePAM 0.5 MG TABLET PO (08:14)
[2022-10-16 08:26] LABS: Estimated Average Glucose 137 mg/dL; Hemoglobin A1c % 6.4 %
[2022-10-16 09:07] LABS: Alanine Aminotransferase 12 U/L (0-31); Alkaline Phosphatase 70 U/L (39-117); Anion Gap 16 (12-20); Aspartate Amino Transferase 21 U/L (5-31); Bilirubin Total 0.6 mg/dL (0.0-1.0); Blood Urea Nitrogen 17 mg/dL (9-16); Calcium 9.6 mg/dL (8.4-10.2); Carbon Dioxide 19 mmol/L (22-29); Chloride 104 mmol/L (96-108); Cholesterol 265 mg/dL; Creatinine Clr Calc Pharmacy 57.4; Estimated Glomerular Filt Rate > 60; Glucose Fasting 135 mg/dL (60-99); HDL Cholesterol 48 mg/dL; LDL Cholesterol Calculated 200 mg/dl; Potassium 4.7 mmol/L (3.3-5.1); Sodium 134 mmol/L (135-145); Thyroid Stimulating Hormone 0.65 uIU/mL (0.32-4.0); Total Protein 7.1 g/dL (6.5-8.0); Triglycerides 89 mg/dL
[2022-10-16 12:24] VITALS: BMI 22.7
--- NOTE | 2022-10-16 16:14 | PC.NURSE ---
Dr Garcia notified of abnormal labs.
--- NOTE | 2022-10-16 16:41 | HO.PSYCHPN ---
Subjective Subjective Date of Service: 10/16/22 Reason For Visit: SI Subjective Notes: Conditional Voluntary Interim History: The nursing staff reported the patient had been pleasant and cooperative, she reported weight loss. Apparently the patient was admitted at [facility] last month probably due to a stroke. On interview the patient reported that she slept well last night and she has been compliant with medications. We are ordering a new CT scan to figure it out if she had further neurological damage. According to collateral information the patient have shown manic symptoms in the community but we will try to gather collateral information. Mental Status Exam Mental Status Exam Patient Appearance: Well Grooomed and Appropriate Patient Orientation: Person and Situation Level of Consciousness: Awake and Appropriate Patient Behavior: Guarded and Passive Mood Description: Withdrawn Affect Description: Calm Patient Cognition Impaired: Yes Ability to Follow Directions: Good Speech Pattern: Clear and Spontaneous Speech Hallucinations: None Delusions: Not Present Thought Process: Distracted and Slowed Thinking Thought Content: positive for [place] and positive for Circumstantial Judgement: Fair Diagnostics Vital Signs (24Hr): Vital Signs - 24 hr 10/15/22 18:00 10/16/22 08:00 Temperature 96.9 F 96.4 F L Pulse Rate 98 99 Respiratory Rate 18 16 Blood Pressure 137/95 H 125/58 L Pulse Oximetry 95 96 Oxygen Delivery Method Room Air Room Air BMI result Body Mass Index 22.7 Labs 10/14/22 04:35 10/16/22 07:46 Labs: Laboratory Results - last 48 hr 10/16/22 10/16/22 10/16/22 07:46 07:46 08:54 Sodium 134 L Cancelled Potassium 4.7 Cancelled Chloride 104 Cancelled Carbon Dioxide 19 L Cancelled Anion Gap 16 Cancelled BUN 17 H Cancelled Creatinine 0.78 Cancelled Estim Creat Clear Calc 57.4 Cancelled Estimated GFR > 60 Cancelled Fasting Glucose 135 H Cancelled Estimat Average Glucose 137 Hemoglobin A1c % 6.4 Calcium 9.6 Cancelled Total Bilirubin 0.6 Cancelled AST 21 Cancelled ALT 12 Cancelled Alkaline Phosphatase 70 Cancelled Total Protein 7.1 Cancelled Albumin 4.0 Cancelled Triglycerides 89 Cancelled Cholesterol 265 Cancelled LDL Cholesterol, Calc 200 Cancelled HDL Cholesterol 48 Cancelled TSH 0.65 Imaging Radiology Impressions: ITS Impressions Head CT 10/16/22 09:26 IMPRESSION: - No acute intracranial abnormality. 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 Medications Medications Current Medications Acetaminophen (Acetaminophen 325 Mg Tablet) 650 mg PO Q6H PRN PRN Reason: Headache/Pain Mild Scale (1-3) Last Admin: 10/15/22 20:41 Dose: 650 mg Al Hydroxide/Mg Hydroxide (Magnesium Hydrox/Alum Hydrox 30 Ml Oral.Susp) 30 ml PO Q6H PRN PRN Reason: Heartburn/Nausea Brexpiprazole (Brexpiprazole 1 Mg Tablet) 1.5 mg PO DAILY@1700 [facility] Last Admin: 10/15/22 17:58 Dose: 1.5 mg Clonazepam (Clonazepam 0.5 Mg Tablet) 0.5 mg PO BID PRN PRN Reason: anxiety attack Last Admin: 10/16/22 08:14 Dose: 0.5 mg Clonazepam (Clonazepam 1 Mg Tablet) 2 mg PO BEDTIME [facility] Last Admin: 10/15/22 20:40 Dose: 2 mg Clonidine HCl (Clonidine Hcl 0.1 Mg Tablet) 0.1 mg PO BID PRN; Protocol PRN Reason: panic attack Fluoxetine HCl (Fluoxetine Hcl 20 Mg Capsule) 60 mg PO DAILY [facility] Last Admin: 10/16/22 08:12 Dose: 60 mg Hydroxyzine HCl (Hydroxyzine Hcl 25 Mg Tablet) 25 mg PO Q6H PRN PRN Reason: Anxiety Loperamide HCl (Loperamide Hcl 2 Mg Capsule) 2 mg PO Q6H PRN PRN Reason: Diarrhea Magnesium Hydroxide (Milk Of Magnesia 30 Ml Oral.Susp) 30 ml PO DAILY PRN PRN Reason: Constipation Metoprolol Succinate (Metoprolol Succinate Er 12.5 Mg Halftab.Er.24h) 12.5 mg PO DAILY [facility]; Protocol Last Admin: 10/16/22 08:13 Dose: 12.5 mg Mirtazapine (Mirtazapine 15 Mg Tablet) 45 mg PO BEDTIME [facility] Last Admin: 10/15/22 20:40 Dose: 45 mg Trazodone HCl (Trazodone Hcl 100 Mg Tablet) 100 mg PO BEDTIME PRN PRN Reason: Insomnia Trazodone HCl (Trazodone Hcl 100 Mg Tablet) 100 mg PO BEDTIME [facility] Last Admin: 10/15/22 20:41 Dose: 100 mg Allergies Allergies Allergy/AdvReac Type Severity Reaction Status Date / Time adhesive AdvReac Unknown Verified 10/14/22 04:34 aspirin AdvReac Unknown Verified 10/14/22 04:34 epinephrine AdvReac Unknown Verified 10/14/22 04:34 Assessment & Plan Assessment & Plan (1) COPD (chronic obstructive pulmonary disease): Status: Acute Code(s): J44.9 - Chronic obstructive pulmonary disease, unspecified (2) PTSD (post-traumatic stress disorder): Status: Acute Code(s): F43.10 - Post-traumatic stress disorder, unspecified (3) MDD (major depressive disorder), recurrent episode, moderate: Status: Acute Code(s): F33.1 - Major depressive disorder, recurrent, moderate (4) Suicidal ideation: Status: Acute Code(s): R45.851 - Suicidal ideations (5) Hyperlipidemia: Status: Acute Code(s): E78.5 - Hyperlipidemia, unspecified Plan The patient is an elderly female with a long history of major depressive disorder recurrent episode severe without psychosis, PTSD and other medical comorbidities, very well known by this team since she had been admitted several times for suicidal ideation. She recently lost her on June of 2022 and since then she had been more dysphoric. She is admitted for suicidal ideation in the context of inconsistent compliance. Plan 1. Gather collateral information. 2. Continue with Remeron Prozac and other medications. 3. Lipid panel, TSH, hemoglobin A1c and blood work for tomorrow a.m.. 4. Reassessment with results. 5. 5 minutes check for the 1st [address] scan head without contrast. 7. We will try to gather records from [facility] Reason for contiued inpatient stay Substantial Risk for: inability to function, rapid decompensation and med/psych decompensation Time Spent With Patient Time: Total time managing care of this patient today __20__ minutes.
[2022-10-16] MEDS: Brexpiprazole 1 MG TABLET 1.5 MG PO (17:07)
[2022-10-16 18:00] VITALS: BP 140/70; PULSE 86; RESP 18; TEMP 36.7; O2SAT 95
[2022-10-16] MEDS: clonazePAM 1 MG TABLET 2 MG PO (20:46)
[2022-10-16] MEDS: Mirtazapine 15 MG TABLET 45 MG PO (20:47)
[2022-10-16] MEDS: traZODone HCL 100 MG TABLET PO (20:47)
[2022-10-17 08:12] VITALS: BP 117/63; PULSE 106; RESP 20; TEMP 36.9; O2SAT 92
[2022-10-17] MEDS: FLUoxetine HCl 20 MG CAPSULE 60 MG PO (08:13)
[2022-10-17] MEDS: Metoprolol Succinate ER 12.5 MG HALFTAB.ER.24H PO (08:13)
--- NOTE | 2022-10-17 12:24 | HO.PSYCHPN ---
Subjective Subjective Date of Service: 10/17/22 Reason For Visit: SI Subjective Notes: Conditional Voluntary Interim History: The nursing staff reported the patient has been compliant with treatment, her sodium yesterday was 134. The nursing staff has also noticed that her appetite has improved since she is here and she has attended a few groups. Yesterday the secondary social studies teacher reported the patient did not want her daughter to be involved but later on she agreed to sign consent to release information. The occupational therapist will do a Estill test today and an Hari test for cognition. On interview, the patient reports some dysphoria, I ask about manic symptoms and she confirmed them. We will consider to increase of Rexulti Mental Status Exam Mental Status Exam Patient Appearance: Well Grooomed and Appropriate Patient Orientation: Person and Situation Level of Consciousness: Awake and Appropriate Patient Behavior: Guarded and Passive Mood Description: Calm Affect Description: Calm Patient Cognition Impaired: Yes Ability to Follow Directions: Good Speech Pattern: Clear Hallucinations: None Delusions: Not Present Thought Process: Linear Thought Content: positive for Circumstantial Judgement: Fair Diagnostics Vital Signs (24Hr): Vital Signs - 24 hr 10/16/22 18:00 10/17/22 08:12 Temperature 98.1 F 98.4 F Pulse Rate 86 106 H Respiratory Rate 18 20 Blood Pressure 140/70 H 117/63 Pulse Oximetry 95 92 Oxygen Delivery Method Room Air Room Air BMI result Body Mass Index 22.7 Labs 10/14/22 04:35 10/16/22 07:46 Labs: Laboratory Results - last 48 hr 10/16/22 10/16/22 10/16/22 07:46 07:46 08:54 Sodium 134 L Cancelled Potassium 4.7 Cancelled Chloride 104 Cancelled Carbon Dioxide 19 L Cancelled Anion Gap 16 Cancelled BUN 17 H Cancelled Creatinine 0.78 Cancelled Estim Creat Clear Calc 57.4 Cancelled Estimated GFR > 60 Cancelled Fasting Glucose 135 H Cancelled Estimat Average Glucose 137 Hemoglobin A1c % 6.4 Calcium 9.6 Cancelled Total Bilirubin 0.6 Cancelled AST 21 Cancelled ALT 12 Cancelled Alkaline Phosphatase 70 Cancelled Total Protein 7.1 Cancelled Albumin 4.0 Cancelled Triglycerides 89 Cancelled Cholesterol 265 Cancelled LDL Cholesterol, Calc 200 Cancelled HDL Cholesterol 48 Cancelled TSH 0.65 Imaging Radiology Impressions: ITS Impressions Head CT 10/16/22 09:26 IMPRESSION: - No acute intracranial abnormality. 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 Medications Medications Current Medications Acetaminophen (Acetaminophen 325 Mg Tablet) 650 mg PO Q6H PRN PRN Reason: Headache/Pain Mild Scale (1-3) Last Admin: 10/15/22 20:41 Dose: 650 mg Al Hydroxide/Mg Hydroxide (Magnesium Hydrox/Alum Hydrox 30 Ml Oral.Susp) 30 ml PO Q6H PRN PRN Reason: Heartburn/Nausea Brexpiprazole (Brexpiprazole 1 Mg Tablet) 1.5 mg PO DAILY@1700 [facility] Last Admin: 10/16/22 17:07 Dose: 1.5 mg Clonazepam (Clonazepam 0.5 Mg Tablet) 0.5 mg PO BID PRN PRN Reason: anxiety attack Last Admin: 10/16/22 08:14 Dose: 0.5 mg Clonazepam (Clonazepam 1 Mg Tablet) 2 mg PO BEDTIME [facility] Last Admin: 10/16/22 20:46 Dose: 2 mg Clonidine HCl (Clonidine Hcl 0.1 Mg Tablet) 0.1 mg PO BID PRN; Protocol PRN Reason: panic attack Fluoxetine HCl (Fluoxetine Hcl 20 Mg Capsule) 60 mg PO DAILY [facility] Last Admin: 10/17/22 08:13 Dose: 60 mg Hydroxyzine HCl (Hydroxyzine Hcl 25 Mg Tablet) 25 mg PO Q6H PRN PRN Reason: Anxiety Loperamide HCl (Loperamide Hcl 2 Mg Capsule) 2 mg PO Q6H PRN PRN Reason: Diarrhea Magnesium Hydroxide (Milk Of Magnesia 30 Ml Oral.Susp) 30 ml PO DAILY PRN PRN Reason: Constipation Metoprolol Succinate (Metoprolol Succinate Er 12.5 Mg Halftab.Er.24h) 12.5 mg PO DAILY [facility]; Protocol Last Admin: 10/17/22 08:13 Dose: 12.5 mg Mirtazapine (Mirtazapine 15 Mg Tablet) 45 mg PO BEDTIME [facility] Last Admin: 10/16/22 20:47 Dose: 45 mg Trazodone HCl (Trazodone Hcl 100 Mg Tablet) 100 mg PO BEDTIME PRN PRN Reason: Insomnia Trazodone HCl (Trazodone Hcl 100 Mg Tablet) 100 mg PO BEDTIME [facility] Last Admin: 04/11/23 20:47 Dose: 100 mg Allergies Allergies Allergy/AdvReac Type Severity Reaction Status Date / Time adhesive AdvReac Unknown Verified 10/14/22 04:34 aspirin AdvReac Unknown Verified 10/14/22 04:34 epinephrine AdvReac Unknown Verified 10/14/22 04:34 Assessment & Plan Assessment & Plan (1) COPD (chronic obstructive pulmonary disease): Status: Acute Code(s): J44.9 - Chronic obstructive pulmonary disease, unspecified (2) PTSD (post-traumatic stress disorder): Status: Acute Code(s): F43.10 - Post-traumatic stress disorder, unspecified (3) MDD (major depressive disorder), recurrent episode, moderate: Status: Acute Code(s): F33.1 - Major depressive disorder, recurrent, moderate (4) Suicidal ideation: Status: Acute Code(s): R45.851 - Suicidal ideations (5) Hyperlipidemia: Status: Acute Code(s): E78.5 - Hyperlipidemia, unspecified Plan The patient is an elderly female with a long history of major depressive disorder recurrent episode severe without psychosis, PTSD and other medical comorbidities, very well known by this team since she had been admitted several times for suicidal ideation. She recently lost her on June of 2022 and since then she had been more dysphoric. She is admitted for suicidal ideation in the context of inconsistent compliance. Plan 1. Gather collateral information. 2. Continue with Remeron Prozac and other medications. 3. Lipid panel, TSH, hemoglobin A1c and blood work for tomorrow a.m.. 4. Reassessment with results. 5. 5 minutes check for the 1st [address] scan head without contrast. No evidence of recent stroke as per CT scan of October 16, probably she had a TIA. 7. We will try to gather records from [facility] 8. Increase RExulti Reason for contiued inpatient stay Substantial Risk for: inability to function, rapid decompensation and med/psych decompensation Time Spent With Patient Time: Total time managing care of this patient today __20__ minutes.
[2022-10-17] MEDS: Brexpiprazole 2 MG TABLET PO (17:52)
[2022-10-17 18:00] VITALS: BP 151/72; PULSE 87; RESP 20; TEMP 36.3; O2SAT 94
[2022-10-17] MEDS: traZODone HCL 100 MG TABLET PO (21:06)
[2022-10-17] MEDS: Mirtazapine 15 MG TABLET 45 MG PO (21:06)
[2022-10-17] MEDS: clonazePAM 1 MG TABLET 2 MG PO (21:07)
[2022-10-17] MEDS: Acetaminophen 325 MG TABLET 650 MG PO (21:07)
[2022-10-18 07:00] VITALS: BMI 21.7
[2022-10-18] MEDS: FLUoxetine HCl 20 MG CAPSULE 60 MG PO (09:14)
[2022-10-18] MEDS: Metoprolol Succinate ER 12.5 MG HALFTAB.ER.24H PO (09:14)
[2022-10-18 09:43] VITALS: BP 132/66; PULSE 96; RESP 16; TEMP 36.6; O2SAT 93
--- NOTE | 2022-10-18 12:00 | PC.NURSE ---
Pt. with good balance and steady gait with wheeled walker. Safety awareness is good and bed alarm is not indicated.
--- NOTE | 2022-10-18 14:13 | HO.PSYCHPN ---
Subjective Subjective Date of Service: 10/18/22 Reason For Visit: SI Subjective Notes: Conditional Voluntary Interim History: the nursing staff reported the patient had been compliant with treatment, attending to groups, she denies pain. She looks depressed but she is not feeling as bad as before. The occupational therapist has assessed her. On interview the patient reports dysphoria but less anxiety. Mental Status Exam Mental Status Exam Patient Appearance: Well Grooomed and Appropriate Patient Orientation: Person and Situation Level of Consciousness: Awake and Appropriate Patient Behavior: Cooperative Mood Description: Withdrawn Affect Description: Depressed Patient Cognition Impaired: No Ability to Follow Directions: Good Speech Pattern: Clear Hallucinations: None Delusions: Not Present Thought Process: Linear Thought Content: positive for [place] and positive for Goal Oriented Judgement: Fair Diagnostics Vital Signs (24Hr): Vital Signs - 24 hr 10/17/22 18:00 10/18/22 09:43 Temperature 97.4 F 97.8 F Pulse Rate 87 96 Respiratory Rate 20 16 Blood Pressure 151/72 H 132/66 Pulse Oximetry 94 93 Oxygen Delivery Method Room Air Room Air BMI result Body Mass Index 21.7 Labs 10/14/22 04:35 10/16/22 07:46 Imaging Radiology Impressions: ITS Impressions Head CT 10/16/22 09:26 IMPRESSION: - No acute intracranial abnormality. 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 Medications Medications Current Medications Acetaminophen (Acetaminophen 325 Mg Tablet) 650 mg PO Q6H PRN PRN Reason: Headache/Pain Mild Scale (1-3) Last Admin: 10/17/22 21:07 Dose: 650 mg Al Hydroxide/Mg Hydroxide (Magnesium Hydrox/Alum Hydrox 30 Ml Oral.Susp) 30 ml PO Q6H PRN PRN Reason: Heartburn/Nausea Brexpiprazole (Brexpiprazole 2 Mg Tablet) 2 mg PO DAILY@1700 [facility] Last Admin: 10/17/22 17:52 Dose: 2 mg Clonazepam (Clonazepam 0.5 Mg Tablet) 0.5 mg PO BID PRN PRN Reason: anxiety attack Last Admin: 10/16/22 08:14 Dose: 0.5 mg Clonazepam (Clonazepam 1 Mg Tablet) 2 mg PO BEDTIME [facility] Last Admin: 10/17/22 21:07 Dose: 2 mg Clonidine HCl (Clonidine Hcl 0.1 Mg Tablet) 0.1 mg PO BID PRN; Protocol PRN Reason: panic attack Fluoxetine HCl (Fluoxetine Hcl 20 Mg Capsule) 60 mg PO DAILY [facility] Last Admin: 10/18/22 09:14 Dose: 60 mg Hydroxyzine HCl (Hydroxyzine Hcl 25 Mg Tablet) 25 mg PO Q6H PRN PRN Reason: Anxiety Loperamide HCl (Loperamide Hcl 2 Mg Capsule) 2 mg PO Q6H PRN PRN Reason: Diarrhea Magnesium Hydroxide (Milk Of Magnesia 30 Ml Oral.Susp) 30 ml PO DAILY PRN PRN Reason: Constipation Metoprolol Succinate (Metoprolol Succinate Er 12.5 Mg Halftab.Er.24h) 12.5 mg PO DAILY [facility]; Protocol Last Admin: 10/18/22 09:14 Dose: 12.5 mg Mirtazapine (Mirtazapine 15 Mg Tablet) 45 mg PO BEDTIME [facility] Last Admin: 10/17/22 21:06 Dose: 45 mg Nicotine Polacrilex (Nicotine Polacrilex 2 Mg Gum) 2 mg BUCCAL Q2H PRN PRN Reason: craving Trazodone HCl (Trazodone Hcl 100 Mg Tablet) 100 mg PO BEDTIME PRN PRN Reason: Insomnia Trazodone HCl (Trazodone Hcl 100 Mg Tablet) 100 mg PO BEDTIME [facility] Last Admin: 10/17/22 21:06 Dose: 100 mg Allergies Allergies Allergy/AdvReac Type Severity Reaction Status Date / Time adhesive AdvReac Unknown Verified 10/14/22 04:34 aspirin AdvReac Unknown Verified 10/14/22 04:34 epinephrine AdvReac Unknown Verified 10/14/22 04:34 Assessment & Plan Assessment & Plan (1) COPD (chronic obstructive pulmonary disease): Status: Acute Code(s): J44.9 - Chronic obstructive pulmonary disease, unspecified (2) PTSD (post-traumatic stress disorder): Status: Acute Code(s): F43.10 - Post-traumatic stress disorder, unspecified (3) MDD (major depressive disorder), recurrent episode, moderate: Status: Acute Code(s): F33.1 - Major depressive disorder, recurrent, moderate (4) Suicidal ideation: Status: Acute Code(s): R45.851 - Suicidal ideations (5) Hyperlipidemia: Status: Acute Code(s): E78.5 - Hyperlipidemia, unspecified Plan The patient is an elderly female with a long history of major depressive disorder recurrent episode severe without psychosis, PTSD and other medical comorbidities, very well known by this team since she had been admitted several times for suicidal ideation. She recently lost her on June of 2022 and since then she had been more dysphoric. She is admitted for suicidal ideation in the context of inconsistent compliance. Plan 1. Gather collateral information. 2. Continue with Remeron Prozac and other medications. 3. Lipid panel, TSH, hemoglobin A1c and blood work for tomorrow a.m.. 4. Reassessment with results. 5. 5 minutes check for the 1st [address] scan head without contrast. No evidence of recent stroke as per CT scan of October 16, probably she had a TIA. 7. We will try to gather records from [facility] 8. Increase RExulti Up to 2 mg p.o. daily Reason for contiued inpatient stay Substantial Risk for: inability to function, rapid decompensation and med/psych decompensation Time Spent With Patient Time: Total time managing care of this patient today __20__ minutes.
[2022-10-18] MEDS: Brexpiprazole 2 MG TABLET PO (17:18)
[2022-10-18 18:00] VITALS: BP 145/66; PULSE 78; TEMP 36.3; O2SAT 96
[2022-10-18] MEDS: traZODone HCL 100 MG TABLET PO (21:02)
[2022-10-18] MEDS: Mirtazapine 15 MG TABLET 45 MG PO (21:02)
[2022-10-18] MEDS: clonazePAM 1 MG TABLET 2 MG PO (21:02)
[2022-10-19 08:25] VITALS: BP 126/79; PULSE 87; RESP 16; TEMP 36.2; O2SAT 95
[2022-10-19] MEDS: Metoprolol Succinate ER 12.5 MG HALFTAB.ER.24H PO (08:27)
[2022-10-19] MEDS: FLUoxetine HCl 20 MG CAPSULE 60 MG PO (08:27)
--- NOTE | 2022-10-19 14:05 | HO.PSYCHPN ---
Subjective Subjective Date of Service: 10/19/22 Reason For Visit: SI Subjective Notes: Conditional Voluntary Interim History: The nursing staff reported the patient has been compliant with medications, eating well. The occupational therapist reported that on groups she reported that she feels more grounded. On interview the patient reports mild improvement of depression, she is in agreement of keeping Rexulti at this dose. Mental Status Exam Mental Status Exam Patient Appearance: Well Grooomed and Appropriate Patient Orientation: Person and Situation Level of Consciousness: Awake and Appropriate Patient Behavior: Appropriate and Passive Mood Description: Withdrawn and Depressed Affect Description: Constricted Patient Cognition Impaired: Yes Ability to Follow Directions: Good Speech Pattern: Clear Hallucinations: None Delusions: Not Present Thought Process: Distracted and Evasive Thought Content: positive for [place] and positive for Circumstantial Judgement: Fair Diagnostics Vital Signs (24Hr): Vital Signs - 24 hr 10/18/22 18:00 10/19/22 08:25 Temperature 97.4 F 97.1 F Pulse Rate 78 87 Respiratory Rate 16 Blood Pressure 145/66 H 126/79 Pulse Oximetry 96 95 Oxygen Delivery Method Room Air Room Air BMI result Body Mass Index 21.7 Labs 10/14/22 04:35 10/16/22 07:46 Imaging Radiology Impressions: ITS Impressions Head CT 10/16/22 09:26 IMPRESSION: - No acute intracranial abnormality. 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 Medications Medications Current Medications Acetaminophen (Acetaminophen 325 Mg Tablet) 650 mg PO Q6H PRN PRN Reason: Headache/Pain Mild Scale (1-3) Last Admin: 10/17/22 21:07 Dose: 650 mg Al Hydroxide/Mg Hydroxide (Magnesium Hydrox/Alum Hydrox 30 Ml Oral.Susp) 30 ml PO Q6H PRN PRN Reason: Heartburn/Nausea Brexpiprazole (Brexpiprazole 2 Mg Tablet) 2 mg PO DAILY@1700 [facility] Last Admin: 10/18/22 17:18 Dose: 2 mg Clonazepam (Clonazepam 0.5 Mg Tablet) 0.5 mg PO BID PRN PRN Reason: anxiety attack Last Admin: 10/16/22 08:14 Dose: 0.5 mg Clonazepam (Clonazepam 1 Mg Tablet) 2 mg PO BEDTIME [facility] Last Admin: 10/18/22 21:02 Dose: 2 mg Clonidine HCl (Clonidine Hcl 0.1 Mg Tablet) 0.1 mg PO BID PRN; Protocol PRN Reason: panic attack Fluoxetine HCl (Fluoxetine Hcl 20 Mg Capsule) 60 mg PO DAILY [facility] Last Admin: 10/19/22 08:27 Dose: 60 mg Hydroxyzine HCl (Hydroxyzine Hcl 25 Mg Tablet) 25 mg PO Q6H PRN PRN Reason: Anxiety Loperamide HCl (Loperamide Hcl 2 Mg Capsule) 2 mg PO Q6H PRN PRN Reason: Diarrhea Magnesium Hydroxide (Milk Of Magnesia 30 Ml Oral.Susp) 30 ml PO DAILY PRN PRN Reason: Constipation Metoprolol Succinate (Metoprolol Succinate Er 12.5 Mg Halftab.Er.24h) 12.5 mg PO DAILY [facility]; Protocol Last Admin: 10/19/22 08:27 Dose: 12.5 mg Mirtazapine (Mirtazapine 15 Mg Tablet) 45 mg PO BEDTIME [facility] Last Admin: 10/18/22 21:02 Dose: 45 mg Nicotine Polacrilex (Nicotine Polacrilex 2 Mg Gum) 2 mg BUCCAL Q2H PRN PRN Reason: craving Trazodone HCl (Trazodone Hcl 100 Mg Tablet) 100 mg PO BEDTIME PRN PRN Reason: Insomnia Trazodone HCl (Trazodone Hcl 100 Mg Tablet) 100 mg PO BEDTIME [facility] Last Admin: 10/18/22 21:02 Dose: 100 mg Allergies Allergies Allergy/AdvReac Type Severity Reaction Status Date / Time adhesive AdvReac Unknown Verified 10/14/22 04:34 aspirin AdvReac Unknown Verified 10/14/22 04:34 epinephrine AdvReac Unknown Verified 10/14/22 04:34 Assessment & Plan Assessment & Plan (1) COPD (chronic obstructive pulmonary disease): Status: Acute Code(s): J44.9 - Chronic obstructive pulmonary disease, unspecified (2) PTSD (post-traumatic stress disorder): Status: Acute Code(s): F43.10 - Post-traumatic stress disorder, unspecified (3) MDD (major depressive disorder), recurrent episode, moderate: Status: Acute Code(s): F33.1 - Major depressive disorder, recurrent, moderate (4) Suicidal ideation: Status: Acute Code(s): R45.851 - Suicidal ideations (5) Hyperlipidemia: Status: Acute Code(s): E78.5 - Hyperlipidemia, unspecified Plan The patient is an elderly female with a long history of major depressive disorder recurrent episode severe without psychosis, PTSD and other medical comorbidities, very well known by this team since she had been admitted several times for suicidal ideation. She recently lost her on June of 2022 and since then she had been more dysphoric. She is admitted for suicidal ideation in the context of inconsistent compliance. Plan 1. Gather collateral information. 2. Continue with Remeron Prozac and other medications. 3. Lipid panel, TSH, hemoglobin A1c and blood work for tomorrow a.m.. 4. Reassessment with results. 5. 5 minutes check for the 1st [address] scan head without contrast. No evidence of recent stroke as per CT scan of October 16, probably she had a TIA. 7. We will try to gather records from [facility] 8. Increase RExulti Up to 2 mg p.o. daily Reason for continued inpatient stay Substantial Risk for: inability to function, rapid decompensation and med/psych decompensation Time Spent With Patient Time: Total time managing care of this patient today __20__ minutes.
[2022-10-19] MEDS: Brexpiprazole 2 MG TABLET PO (15:37)
[2022-10-19 18:00] VITALS: BP 148/71; PULSE 81; RESP 17; TEMP 36.2; O2SAT 94
[2022-10-19] MEDS: clonazePAM 1 MG TABLET 2 MG PO (20:53)
[2022-10-19] MEDS: Mirtazapine 15 MG TABLET 45 MG PO (20:54)
[2022-10-19] MEDS: traZODone HCL 100 MG TABLET PO (20:54)
[2022-10-20 06:00] VITALS: BP 115/59; PULSE 91; RESP 16; TEMP 35.7; O2SAT 92
[2022-10-20] MEDS: Metoprolol Succinate ER 12.5 MG HALFTAB.ER.24H PO (08:40)
[2022-10-20] MEDS: FLUoxetine HCl 20 MG CAPSULE 60 MG PO (08:40)
--- NOTE | 2022-10-20 11:22 | HO.PSYCHPN ---
Subjective Subjective Date of Service: 10/20/22 Reason For Visit: SI Subjective Notes: Conditional Voluntary Interim History: The patient seems somewhat sedated depressed withdrawn. Denies current active self-harming thoughts Medication Compliance: Yes Mental Status Exam Mental Status Exam Patient Appearance: Well Grooomed and Appropriate Patient Orientation: Person and Situation Level of Consciousness: Awake and Appropriate Patient Behavior: Appropriate and Passive Mood Description: Withdrawn and Depressed Affect Description: Constricted Patient Cognition Impaired: Yes Ability to Follow Directions: Good Speech Pattern: Clear Hallucinations: None Delusions: Not Present Thought Process: Distracted and Evasive Thought Content: positive for [place] and positive for Circumstantial Judgement: Fair Diagnostics Vital Signs (24Hr): Vital Signs - 24 hr 10/19/22 18:00 10/20/22 06:00 Temperature 97.2 F 96.2 F L Pulse Rate 81 91 Respiratory Rate 17 16 Blood Pressure 148/71 H 115/59 L Pulse Oximetry 94 92 Oxygen Delivery Method Room Air Room Air BMI result Body Mass Index 21.7 Labs 10/14/22 04:35 10/16/22 07:46 Imaging Radiology Impressions: ITS Impressions Head CT 10/16/22 09:26 IMPRESSION: - No acute intracranial abnormality. 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 Medications Medications Current Medications Acetaminophen (Acetaminophen 325 Mg Tablet) 650 mg PO Q6H PRN PRN Reason: Headache/Pain Mild Scale (1-3) Last Admin: 10/17/22 21:07 Dose: 650 mg Al Hydroxide/Mg Hydroxide (Magnesium Hydrox/Alum Hydrox 30 Ml Oral.Susp) 30 ml PO Q6H PRN PRN Reason: Heartburn/Nausea Brexpiprazole (Brexpiprazole 2 Mg Tablet) 2 mg PO DAILY@1700 [facility] Last Admin: 10/19/22 15:37 Dose: 2 mg Clonazepam (Clonazepam 0.5 Mg Tablet) 0.5 mg PO BID PRN PRN Reason: anxiety attack Last Admin: 10/16/22 08:14 Dose: 0.5 mg Clonazepam (Clonazepam 1 Mg Tablet) 2 mg PO BEDTIME [facility] Last Admin: 10/19/22 20:53 Dose: 2 mg Clonidine HCl (Clonidine Hcl 0.1 Mg Tablet) 0.1 mg PO BID PRN; Protocol PRN Reason: panic attack Fluoxetine HCl (Fluoxetine Hcl 20 Mg Capsule) 60 mg PO DAILY [facility] Last Admin: 10/20/22 08:40 Dose: 60 mg Hydroxyzine HCl (Hydroxyzine Hcl 25 Mg Tablet) 25 mg PO Q6H PRN PRN Reason: Anxiety Loperamide HCl (Loperamide Hcl 2 Mg Capsule) 2 mg PO Q6H PRN PRN Reason: Diarrhea Magnesium Hydroxide (Milk Of Magnesia 30 Ml Oral.Susp) 30 ml PO DAILY PRN PRN Reason: Constipation Metoprolol Succinate (Metoprolol Succinate Er 12.5 Mg Halftab.Er.24h) 12.5 mg PO DAILY [facility]; Protocol Last Admin: 10/20/22 08:40 Dose: 12.5 mg Mirtazapine (Mirtazapine 15 Mg Tablet) 45 mg PO BEDTIME [facility] Last Admin: 10/19/22 20:54 Dose: 45 mg Nicotine Polacrilex (Nicotine Polacrilex 2 Mg Gum) 2 mg BUCCAL Q2H PRN PRN Reason: craving Trazodone HCl (Trazodone Hcl 100 Mg Tablet) 100 mg PO BEDTIME PRN PRN Reason: Insomnia Trazodone HCl (Trazodone Hcl 100 Mg Tablet) 100 mg PO BEDTIME [facility] Last Admin: 10/19/22 20:54 Dose: 100 mg Allergies Allergies Allergy/AdvReac Type Severity Reaction Status Date / Time adhesive AdvReac Unknown Verified 10/14/22 04:34 aspirin AdvReac Unknown Verified 10/14/22 04:34 epinephrine AdvReac Unknown Verified 10/14/22 04:34 Assessment & Plan Assessment & Plan (1) COPD (chronic obstructive pulmonary disease): Status: Acute Code(s): J44.9 - Chronic obstructive pulmonary disease, unspecified (2) PTSD (post-traumatic stress disorder): Status: Acute Code(s): F43.10 - Post-traumatic stress disorder, unspecified (3) MDD (major depressive disorder), recurrent episode, moderate: Status: Acute Code(s): F33.1 - Major depressive disorder, recurrent, moderate (4) Suicidal ideation: Status: Acute Code(s): R45.851 - Suicidal ideations (5) Hyperlipidemia: Status: Acute Code(s): E78.5 - Hyperlipidemia, unspecified Plan The patient is an elderly female with a long history of major depressive disorder recurrent episode severe without psychosis, PTSD and other medical comorbidities, very well known by this team since she had been admitted several times for suicidal ideation. She recently lost her on June of 2022 and since then she had been more dysphoric. She is admitted for suicidal ideation in the context of inconsistent compliance. Plan 1. Gather collateral information. 2. Continue with Remeron Prozac and other medications. 3. Lipid panel, TSH, hemoglobin A1c and blood work for tomorrow a.m.. 4. Reassessment with results. 5. 5 minutes check for the 1st [address] scan head without contrast. No evidence of recent stroke as per CT scan of October 16, probably she had a TIA. 7. We will try to gather records from [facility] 8. Increase RExulti Up to 2 mg p.o. daily 10/20/2022 Continue Rexulti fluoxetine encourage out of bed behavioral activity monitor for suicidality Patient educated on: medication risk/benefits Informed Consent: understands Reason for continued inpatient stay Substantial Risk for: harm to self, inability to function and rapid decompensation Time Spent With Patient Time: Total time managing care of this patient today ____ minutes.
[2022-10-20] MEDS: Brexpiprazole 2 MG TABLET PO (16:18)
[2022-10-20 18:00] VITALS: BP 114/59; PULSE 79; RESP 18; TEMP 37; O2SAT 94
[2022-10-20] MEDS: clonazePAM 1 MG TABLET 2 MG PO (20:33)
[2022-10-20] MEDS: Mirtazapine 15 MG TABLET 45 MG PO (20:33)
[2022-10-20] MEDS: traZODone HCL 100 MG TABLET PO (20:34)
[2022-10-21 08:05] VITALS: BP 116/69; PULSE 87; RESP 20; TEMP 36.6; O2SAT 97
[2022-10-21] MEDS: Metoprolol Succinate ER 12.5 MG HALFTAB.ER.24H PO (08:52)
[2022-10-21] MEDS: FLUoxetine HCl 20 MG CAPSULE 60 MG PO (08:52)
[2022-10-21] MEDS: Brexpiprazole 2 MG TABLET PO (17:12)
[2022-10-21 18:00] VITALS: BP 112/58; PULSE 80; RESP 18; TEMP 36.1; O2SAT 94
[2022-10-21] MEDS: clonazePAM 0.5 MG TABLET 1.5 MG PO (20:26)
[2022-10-21] MEDS: traZODone HCL 50 MG TABLET PO (20:26)
[2022-10-21] MEDS: Mirtazapine 15 MG TABLET 45 MG PO (20:27)
--- NOTE | 2022-10-21 22:56 | HO.PSYCHPN ---
Subjective Subjective Date of Service: 10/21/22 Reason For Visit: SI Subjective Notes: Conditional Voluntary Interim History: Patient somewhat flat and dysphoric patient has had increase sedation during the day Mental Status Exam Mental Status Exam Patient Appearance: Well Grooomed and Appropriate Patient Orientation: Person and Situation Level of Consciousness: Awake and Appropriate Patient Behavior: Guarded and Passive Mood Description: Withdrawn and Constricted Affect Description: Blunted Patient Cognition Impaired: Yes Ability to Follow Directions: Good Speech Pattern: Clear Hallucinations: None Delusions: Not Present Thought Content: positive for [place] Judgement: Fair Diagnostics Vital Signs (24Hr): Vital Signs - 24 hr 10/21/22 08:05 10/21/22 18:00 Temperature 97.9 F 96.9 F Pulse Rate 87 80 Respiratory Rate 20 18 Blood Pressure 116/69 112/58 L Pulse Oximetry 97 94 Oxygen Delivery Method Room Air Room Air BMI result Body Mass Index 21.7 Labs 10/14/22 04:35 10/16/22 07:46 Imaging Radiology Impressions: ITS Impressions Head CT 10/16/22 09:26 IMPRESSION: - No acute intracranial abnormality. 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 Medications Medications Current Medications Acetaminophen (Acetaminophen 325 Mg Tablet) 650 mg PO Q6H PRN PRN Reason: Headache/Pain Mild Scale (1-3) Last Admin: 10/17/22 21:07 Dose: 650 mg Al Hydroxide/Mg Hydroxide (Magnesium Hydrox/Alum Hydrox 30 Ml Oral.Susp) 30 ml PO Q6H PRN PRN Reason: Heartburn/Nausea Brexpiprazole (Brexpiprazole 2 Mg Tablet) 2 mg PO DAILY@1700 [facility] Last Admin: 10/21/22 17:12 Dose: 2 mg Clonazepam (Clonazepam 0.5 Mg Tablet) 0.5 mg PO BID PRN PRN Reason: anxiety attack Last Admin: 10/16/22 08:14 Dose: 0.5 mg Clonazepam (Clonazepam 0.5 Mg Tablet) 1.5 mg PO BEDTIME [facility] Last Admin: 10/21/22 20:26 Dose: 1.5 mg Clonidine HCl (Clonidine Hcl 0.1 Mg Tablet) 0.1 mg PO BID PRN; Protocol PRN Reason: panic attack Fluoxetine HCl (Fluoxetine Hcl 20 Mg Capsule) 60 mg PO DAILY [facility] Last Admin: 10/21/22 08:52 Dose: 60 mg Hydroxyzine HCl (Hydroxyzine Hcl 25 Mg Tablet) 25 mg PO Q6H PRN PRN Reason: Anxiety Loperamide HCl (Loperamide Hcl 2 Mg Capsule) 2 mg PO Q6H PRN PRN Reason: Diarrhea Magnesium Hydroxide (Milk Of Magnesia 30 Ml Oral.Susp) 30 ml PO DAILY PRN PRN Reason: Constipation Metoprolol Succinate (Metoprolol Succinate Er 12.5 Mg Halftab.Er.24h) 12.5 mg PO DAILY [facility]; Protocol Last Admin: 10/21/22 08:52 Dose: 12.5 mg Mirtazapine (Mirtazapine 15 Mg Tablet) 45 mg PO BEDTIME [facility] Last Admin: 10/21/22 20:27 Dose: 45 mg Nicotine Polacrilex (Nicotine Polacrilex 2 Mg Gum) 2 mg BUCCAL Q2H PRN PRN Reason: craving Trazodone HCl (Trazodone Hcl 100 Mg Tablet) 100 mg PO BEDTIME PRN PRN Reason: Insomnia Trazodone HCl (Trazodone Hcl 50 Mg Tablet) 50 mg PO BEDTIME [facility] Last Admin: 10/21/22 20:26 Dose: 50 mg Allergies Allergies Allergy/AdvReac Type Severity Reaction Status Date / Time adhesive AdvReac Unknown Verified 10/14/22 04:34 aspirin AdvReac Unknown Verified 10/14/22 04:34 epinephrine AdvReac Unknown Verified 10/14/22 04:34 Assessment & Plan Assessment & Plan (1) COPD (chronic obstructive pulmonary disease): Status: Acute Code(s): J44.9 - Chronic obstructive pulmonary disease, unspecified (2) PTSD (post-traumatic stress disorder): Status: Acute Code(s): F43.10 - Post-traumatic stress disorder, unspecified (3) MDD (major depressive disorder), recurrent episode, moderate: Status: Acute Code(s): F33.1 - Major depressive disorder, recurrent, moderate (4) Suicidal ideation: Status: Acute Code(s): R45.851 - Suicidal ideations (5) Hyperlipidemia: Status: Acute Code(s): E78.5 - Hyperlipidemia, unspecified Plan The patient is an elderly female with a long history of major depressive disorder recurrent episode severe without psychosis, PTSD and other medical comorbidities, very well known by this team since she had been admitted several times for suicidal ideation. She recently lost her on June of 2022 and since then she had been more dysphoric. She is admitted for suicidal ideation in the context of inconsistent compliance. Plan 1. Gather collateral information. 2. Continue with Remeron Prozac and other medications. 3. Lipid panel, TSH, hemoglobin A1c and blood work for tomorrow a.m.. 4. Reassessment with results. 5. 5 minutes check for the 1st [address] scan head without contrast. No evidence of recent stroke as per CT scan of October 16, probably she had a TIA. 7. We will try to gather records from [facility] 8. Increase RExulti Up to 2 mg p.o. daily 10/20/2022 Continue Rexulti fluoxetine encourage out of bed behavioral activity monitor for suicidality 10/21/2022 Patient sedated state excessive sleepiness during the day lower Klonopin lower trazodone Patient educated on: diagnosis and medication risk/benefits Informed Consent: understands Reason for continued inpatient stay Substantial Risk for: harm to self Time Spent With Patient Time: Total time managing care of this patient today ____ minutes.
[2022-10-22 08:10] VITALS: BP 126/73; PULSE 85; RESP 16; TEMP 36.2; O2SAT 96
[2022-10-22] MEDS: FLUoxetine HCl 20 MG CAPSULE 60 MG PO (08:34)
[2022-10-22] MEDS: Metoprolol Succinate ER 12.5 MG HALFTAB.ER.24H PO (08:36)
--- NOTE | 2022-10-22 10:09 | HO.PSYCHPN ---
Subjective Subjective Date of Service: 10/22/22 Reason For Visit: SI Subjective Notes: Conditional Voluntary Interim History: the nursing staff reported the patient was over-sedated so her Klonopin was lowered to 1.5 mg at night. The nursing staff also reported the patient looks weak care and sleepy isolative to her room. On interview the patient reports that she is feeling over-sedated. We will continue with the med changes done over the week Mental Status Exam Mental Status Exam Patient Appearance: Well Grooomed and Appropriate Patient Orientation: Person and Situation Level of Consciousness: Awake and Appropriate Patient Behavior: Guarded and Passive Mood Description: Withdrawn and Constricted Affect Description: Blunted Patient Cognition Impaired: Yes Ability to Follow Directions: Good Speech Pattern: Clear Hallucinations: None Delusions: Not Present Thought Content: positive for [place] Judgement: Fair Diagnostics Vital Signs (24Hr): Vital Signs - 24 hr 10/21/22 18:00 10/22/22 08:10 Temperature 96.9 F 97.2 F Pulse Rate 80 85 Respiratory Rate 18 16 Blood Pressure 112/58 L 126/73 Pulse Oximetry 94 96 Oxygen Delivery Method Room Air Room Air BMI result Body Mass Index 21.7 Labs 10/14/22 04:35 10/16/22 07:46 Imaging Radiology Impressions: ITS Impressions Head CT 10/16/22 09:26 IMPRESSION: - No acute intracranial abnormality. 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 Medications Medications Current Medications Acetaminophen (Acetaminophen 325 Mg Tablet) 650 mg PO Q6H PRN PRN Reason: Headache/Pain Mild Scale (1-3) Last Admin: 10/17/22 21:07 Dose: 650 mg Al Hydroxide/Mg Hydroxide (Magnesium Hydrox/Alum Hydrox 30 Ml Oral.Susp) 30 ml PO Q6H PRN PRN Reason: Heartburn/Nausea Brexpiprazole (Brexpiprazole 2 Mg Tablet) 2 mg PO DAILY@1700 [facility] Last Admin: 10/21/22 17:12 Dose: 2 mg Clonazepam (Clonazepam 0.5 Mg Tablet) 0.5 mg PO BID PRN PRN Reason: anxiety attack Last Admin: 10/16/22 08:14 Dose: 0.5 mg Clonazepam (Clonazepam 0.5 Mg Tablet) 1.5 mg PO BEDTIME [facility] Last Admin: 10/21/22 20:26 Dose: 1.5 mg Clonidine HCl (Clonidine Hcl 0.1 Mg Tablet) 0.1 mg PO BID PRN; Protocol PRN Reason: panic attack Fluoxetine HCl (Fluoxetine Hcl 20 Mg Capsule) 60 mg PO DAILY [facility] Last Admin: 10/22/22 08:34 Dose: 60 mg Hydroxyzine HCl (Hydroxyzine Hcl 25 Mg Tablet) 25 mg PO Q6H PRN PRN Reason: Anxiety Loperamide HCl (Loperamide Hcl 2 Mg Capsule) 2 mg PO Q6H PRN PRN Reason: Diarrhea Magnesium Hydroxide (Milk Of Magnesia 30 Ml Oral.Susp) 30 ml PO DAILY PRN PRN Reason: Constipation Metoprolol Succinate (Metoprolol Succinate Er 12.5 Mg Halftab.Er.24h) 12.5 mg PO DAILY [facility]; Protocol Last Admin: 10/22/22 08:36 Dose: 12.5 mg Mirtazapine (Mirtazapine 15 Mg Tablet) 45 mg PO BEDTIME [facility] Last Admin: 10/21/22 20:27 Dose: 45 mg Nicotine Polacrilex (Nicotine Polacrilex 2 Mg Gum) 2 mg BUCCAL Q2H PRN PRN Reason: craving Trazodone HCl (Trazodone Hcl 100 Mg Tablet) 100 mg PO BEDTIME PRN PRN Reason: Insomnia Trazodone HCl (Trazodone Hcl 50 Mg Tablet) 50 mg PO BEDTIME [facility] Last Admin: 10/21/22 20:26 Dose: 50 mg Allergies Allergies Allergy/AdvReac Type Severity Reaction Status Date / Time adhesive AdvReac Unknown Verified 10/14/22 04:34 aspirin AdvReac Unknown Verified 10/14/22 04:34 epinephrine AdvReac Unknown Verified 10/14/22 04:34 Assessment & Plan Assessment & Plan (1) COPD (chronic obstructive pulmonary disease): Status: Acute Code(s): J44.9 - Chronic obstructive pulmonary disease, unspecified (2) PTSD (post-traumatic stress disorder): Status: Acute Code(s): F43.10 - Post-traumatic stress disorder, unspecified (3) MDD (major depressive disorder), recurrent episode, moderate: Status: Acute Code(s): F33.1 - Major depressive disorder, recurrent, moderate (4) Suicidal ideation: Status: Acute Code(s): R45.851 - Suicidal ideations (5) Hyperlipidemia: Status: Acute Code(s): E78.5 - Hyperlipidemia, unspecified Plan The patient is an elderly female with a long history of major depressive disorder recurrent episode severe without psychosis, PTSD and other medical comorbidities, very well known by this team since she had been admitted several times for suicidal ideation. She recently lost her on June of 2022 and since then she had been more dysphoric. She is admitted for suicidal ideation in the context of inconsistent compliance. Plan 1. Gather collateral information. 2. Continue with Remeron Prozac and other medications. 3. Lipid panel, TSH, hemoglobin A1c and blood work for tomorrow a.m.. 4. Reassessment with results. 5. 5 minutes check for the 1st [address] scan head without contrast. No evidence of recent stroke as per CT scan of October 16, probably she had a TIA. 7. We will try to gather records from [facility] 8. Increase RExulti Up to 2 mg p.o. daily Reason for continued inpatient stay Substantial Risk for: inability to function, rapid decompensation and med/psych decompensation Time Spent With Patient Time: Total time managing care of this patient today __20__ minutes.
--- NOTE | 2022-10-22 14:19 | MHC.CLN ---
NUTRITION DIET=REGULAR WITH ENSURE BID. SUPPLEMENT PROVIDES ADDITIONAL 700 KCALS, 40 G PROTEIN. PATIENT REPORTED THAT SHE ATE WELL AT LUNCH TODAY. WEIGHT LOSS -4.5% SINCE ADMISSION. FOLLOW WEEKLY WEIGHTS. ENCOURAGE INTAKE OF MEALS, SNACKS, SUPPLEMENTS ABLE.
[2022-10-22] MEDS: Brexpiprazole 2 MG TABLET PO (17:08)
[2022-10-22 18:00] VITALS: BP 145/70; PULSE 82; RESP 18; TEMP 36.3; O2SAT 96
[2022-10-22] MEDS: traZODone HCL 50 MG TABLET PO (21:57)
[2022-10-22] MEDS: Mirtazapine 15 MG TABLET 45 MG PO (21:57)
[2022-10-22] MEDS: clonazePAM 0.5 MG TABLET 1.5 MG PO (21:58)
[2022-10-23 07:30] VITALS: BP 123/69; PULSE 80; RESP 18; TEMP 36.5; O2SAT 94
[2022-10-23] MEDS: Metoprolol Succinate ER 12.5 MG HALFTAB.ER.24H PO (07:59)
[2022-10-23] MEDS: FLUoxetine HCl 20 MG CAPSULE 60 MG PO (07:59)
--- NOTE | 2022-10-23 11:59 | P.PNPSI_ITS ---
Subjective Subjective Date of Service: 10/23/22 Reason For Visit: SI Subjective Notes: Conditional Voluntary Interim History: the nursing staff reported the patient had been compliant with treatment, she was seen in the common areas. She looks tired but she had been social and she have attended to groups. On interview the patient reports that she is feeling slightly better but still dysphoric, no new symptoms. So far we have lowered the Klonopin that made her too sedated. Mental Status Exam Mental Status Exam Patient Appearance: Appropriate Patient Orientation: Person and Situation Level of Consciousness: Awake and Appropriate Patient Behavior: Guarded and Passive Mood Description: Suspicious and Withdrawn Affect Description: Constricted Patient Cognition Impaired: Yes Ability to Follow Directions: Good Speech Pattern: Clear Hallucinations: None Delusions: Not Present Thought Process: Distracted and Evasive Thought Content: positive for [place], positive for [place]um[place] and positive for [place] of Content Judgement: Fair Diagnostics Vital Signs (24Hr): Vital Signs - 24 hr 10/22/22 18:00 10/22/22 18:00 10/23/22 07:30 Temperature 97.3 F 97.3 F 97.7 F Pulse Rate 82 82 80 Respiratory Rate 18 18 18 Blood Pressure 145/70 H 145/70 H 123/69 Pulse Oximetry 96 96 94 Oxygen Delivery Method Room Air Room Air Room Air BMI result Body Mass Index 21.7 Labs 10/14/22 04:35 10/16/22 07:46 Imaging Radiology Impressions: ITS Impressions Head CT 10/16/22 09:26 IMPRESSION: - No acute intracranial abnormality. 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 Medications Medications Current Medications Acetaminophen (Acetaminophen 325 Mg Tablet) 650 mg PO Q6H PRN PRN Reason: Headache/Pain Mild Scale (1-3) Last Admin: 10/17/22 21:07 Dose: 650 mg Al Hydroxide/Mg Hydroxide (Magnesium Hydrox/Alum Hydrox 30 Ml Oral.Susp) 30 ml PO Q6H PRN PRN Reason: Heartburn/Nausea Brexpiprazole (Brexpiprazole 2 Mg Tablet) 2 mg PO DAILY@1700 [facility] Last Admin: 10/22/22 17:08 Dose: 2 mg Clonazepam (Clonazepam 0.5 Mg Tablet) 0.5 mg PO BID PRN PRN Reason: anxiety attack Last Admin: 10/16/22 08:14 Dose: 0.5 mg Clonazepam (Clonazepam 0.5 Mg Tablet) 1.5 mg PO BEDTIME [facility] Last Admin: 10/22/22 21:58 Dose: 1.5 mg Clonidine HCl (Clonidine Hcl 0.1 Mg Tablet) 0.1 mg PO BID PRN; Protocol PRN Reason: panic attack Fluoxetine HCl (Fluoxetine Hcl 20 Mg Capsule) 60 mg PO DAILY [facility] Last Admin: 10/23/22 07:59 Dose: 60 mg Hydroxyzine HCl (Hydroxyzine Hcl 25 Mg Tablet) 25 mg PO Q6H PRN PRN Reason: Anxiety Loperamide HCl (Loperamide Hcl 2 Mg Capsule) 2 mg PO Q6H PRN PRN Reason: Diarrhea Magnesium Hydroxide (Milk Of Magnesia 30 Ml Oral.Susp) 30 ml PO DAILY PRN PRN Reason: Constipation Metoprolol Succinate (Metoprolol Succinate Er 12.5 Mg Halftab.Er.24h) 12.5 mg PO DAILY [facility]; Protocol Last Admin: 10/23/22 07:59 Dose: 12.5 mg Mirtazapine (Mirtazapine 15 Mg Tablet) 45 mg PO BEDTIME [facility] Last Admin: 10/22/22 21:57 Dose: 45 mg Nicotine Polacrilex (Nicotine Polacrilex 2 Mg Gum) 2 mg BUCCAL Q2H PRN PRN Reason: craving Trazodone HCl (Trazodone Hcl 100 Mg Tablet) 100 mg PO BEDTIME PRN PRN Reason: Insomnia Trazodone HCl (Trazodone Hcl 50 Mg Tablet) 50 mg PO BEDTIME [facility] Last Admin: 10/22/22 21:57 Dose: 50 mg Allergies Allergies Allergy/AdvReac Type Severity Reaction Status Date / Time adhesive AdvReac Unknown Verified 10/14/22 04:34 aspirin AdvReac Unknown Verified 10/14/22 04:34 epinephrine AdvReac Unknown Verified 10/14/22 04:34 Assessment & Plan Assessment & Plan (1) COPD (chronic obstructive pulmonary disease): Status: Acute Code(s): J44.9 - Chronic obstructive pulmonary disease, unspecified (2) PTSD (post-traumatic stress disorder): Status: Acute Code(s): F43.10 - Post-traumatic stress disorder, unspecified (3) MDD (major depressive disorder), recurrent episode, moderate: Status: Acute Code(s): F33.1 - Major depressive disorder, recurrent, moderate (4) Suicidal ideation: Status: Acute Code(s): R45.851 - Suicidal ideations (5) Hyperlipidemia: Status: Acute Code(s): E78.5 - Hyperlipidemia, unspecified Plan The patient is an elderly female with a long history of major depressive disorder recurrent episode severe without psychosis, PTSD and other medical comorbidities, very well known by this team since she had been admitted several times for suicidal ideation. She recently lost her on June of 2022 and since then she had been more dysphoric. She is admitted for suicidal ideation in the context of inconsistent compliance. Plan 1. Gather collateral information. 2. Continue with Remeron Prozac and other medications. 3. Lipid panel, TSH, hemoglobin A1c and blood work for tomorrow a.m.. 4. Reassessment with results. 5. 5 minutes check for the 1st [address] scan head without contrast. No evidence of recent stroke as per CT scan of October 16, probably she had a TIA. 7. We will try to gather records from [facility] 8. Increase RExulti Up to 2 mg p.o. daily 9. Klonopin was lowered to 1.5 p.o. q.h.s. due to over-sedation Reason for continued inpatient stay Substantial Risk for: inability to function, rapid decompensation and med/psych decompensation Time Spent With Patient Time: Total time managing care of this patient today _20___ minutes.
[2022-10-23] MEDS: Brexpiprazole 2 MG TABLET PO (16:14)
[2022-10-23 18:00] VITALS: BP 131/61; PULSE 77; RESP 16; TEMP 36.4; O2SAT 95
[2022-10-23] MEDS: Mirtazapine 15 MG TABLET 45 MG PO (20:52)
[2022-10-23] MEDS: clonazePAM 0.5 MG TABLET 1.5 MG PO (20:52)
[2022-10-23] MEDS: traZODone HCL 50 MG TABLET PO (20:53)
[2022-10-24 08:11] VITALS: BP 123/59; PULSE 80; RESP 16; TEMP 36.1; O2SAT 92
[2022-10-24] MEDS: FLUoxetine HCl 20 MG CAPSULE 60 MG PO (08:20)
[2022-10-24] MEDS: Metoprolol Succinate ER 12.5 MG HALFTAB.ER.24H PO (08:20)
--- NOTE | 2022-10-24 13:29 | P.PNPSI_ITS ---
Subjective Subjective Date of Service: 10/24/22 Reason For Visit: SI Subjective Notes: Conditional Voluntary Interim History: The nursing staff reported the patient had been compliant with treatment, yesterday she took a shower and she has attended to groups. The occupational therapist reported that even that she looks less depressed she still anxious in groups. On interview the patient reports mild improvement of dysphoria but still anxiety. Mental Status Exam Mental Status Exam Patient Appearance: Well Grooomed and Appropriate Patient Orientation: Person and Situation Level of Consciousness: Awake and Appropriate Patient Behavior: Guarded and Passive Mood Description: Withdrawn Affect Description: Constricted Patient Cognition Impaired: Yes Ability to Follow Directions: Good Speech Pattern: Clear Hallucinations: None Delusions: Not Present Thought Process: Distracted and Linear Thought Content: positive for [place] and positive for Circumstantial Judgement: Fair Diagnostics Vital Signs (24Hr): Vital Signs - 24 hr 10/23/22 18:00 10/24/22 08:11 Temperature 97.5 F 97.0 F Pulse Rate 77 80 Respiratory Rate 16 16 Blood Pressure 131/61 123/59 L Pulse Oximetry 95 92 Oxygen Delivery Method Room Air Room Air BMI result Body Mass Index 21.7 Labs 10/14/22 04:35 10/16/22 07:46 Imaging Radiology Impressions: ITS Impressions Head CT 10/16/22 09:26 IMPRESSION: - No acute intracranial abnormality. 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 Medications Medications Current Medications Acetaminophen (Acetaminophen 325 Mg Tablet) 650 mg PO Q6H PRN PRN Reason: Headache/Pain Mild Scale (1-3) Last Admin: 10/17/22 21:07 Dose: 650 mg Al Hydroxide/Mg Hydroxide (Magnesium Hydrox/Alum Hydrox 30 Ml Oral.Susp) 30 ml PO Q6H PRN PRN Reason: Heartburn/Nausea Brexpiprazole (Brexpiprazole 2 Mg Tablet) 2 mg PO DAILY@1700 [facility] Last Admin: 10/23/22 16:14 Dose: 2 mg Clonazepam (Clonazepam 0.5 Mg Tablet) 0.5 mg PO BID PRN PRN Reason: anxiety attack Last Admin: 10/16/22 08:14 Dose: 0.5 mg Clonazepam (Clonazepam 0.5 Mg Tablet) 1.5 mg PO BEDTIME [facility]JA Last Admin: 10/23/22 20:52 Dose: 1.5 mg Clonidine HCl (Clonidine Hcl 0.1 Mg Tablet) 0.1 mg PO BID PRN; Protocol PRN Reason: panic attack Fluoxetine HCl (Fluoxetine Hcl 20 Mg Capsule) 60 mg PO DAILY [facility] Last Admin: 10/24/22 08:20 Dose: 60 mg Hydroxyzine HCl (Hydroxyzine Hcl 25 Mg Tablet) 25 mg PO Q6H PRN PRN Reason: Anxiety Loperamide HCl (Loperamide Hcl 2 Mg Capsule) 2 mg PO Q6H PRN PRN Reason: Diarrhea Magnesium Hydroxide (Milk Of Magnesia 30 Ml Oral.Susp) 30 ml PO DAILY PRN PRN Reason: Constipation Metoprolol Succinate (Metoprolol Succinate Er 12.5 Mg Halftab.Er.24h) 12.5 mg PO DAILY [facility]; Protocol Last Admin: 10/24/22 08:20 Dose: 12.5 mg Mirtazapine (Mirtazapine 15 Mg Tablet) 45 mg PO BEDTIME [facility]JA Last Admin: 10/23/22 20:52 Dose: 45 mg Nicotine Polacrilex (Nicotine Polacrilex 2 Mg Gum) 2 mg BUCCAL Q2H PRN PRN Reason: craving Trazodone HCl (Trazodone Hcl 100 Mg Tablet) 100 mg PO BEDTIME PRN PRN Reason: Insomnia Trazodone HCl (Trazodone Hcl 50 Mg Tablet) 50 mg PO BEDTIME [facility] Last Admin: 10/23/22 20:53 Dose: 50 mg Allergies Allergies Allergy/AdvReac Type Severity Reaction Status Date / Time adhesive AdvReac Unknown Verified 10/14/22 04:34 aspirin AdvReac Unknown Verified 10/14/22 04:34 epinephrine AdvReac Unknown Verified 10/14/22 04:34 Assessment & Plan Assessment & Plan (1) COPD (chronic obstructive pulmonary disease): Status: Acute Code(s): J44.9 - Chronic obstructive pulmonary disease, unspecified (2) PTSD (post-traumatic stress disorder): Status: Acute Code(s): F43.10 - Post-traumatic stress disorder, unspecified (3) MDD (major depressive disorder), recurrent episode, moderate: Status: Acute Code(s): F33.1 - Major depressive disorder, recurrent, moderate (4) Suicidal ideation: Status: Acute Code(s): R45.851 - Suicidal ideations (5) Hyperlipidemia: Status: Acute Code(s): E78.5 - Hyperlipidemia, unspecified Plan The patient is an elderly female with a long history of major depres sive disorder recurrent episode severe without psychosis, PTSD and other medical comorbidities, very well known by this team since she had been admitted several times for suicidal ideation. She recently lost her on June of 2022 and since then she had been more dysphoric. She is admitted for suicidal ideation in the context of inconsistent compliance. Plan 1. Gather collateral information. 2. Continue with Remeron Prozac and other medications. 3. Lipid panel, TSH, hemoglobin A1c and blood work for tomorrow a.m.. 4. Reassessment with results. 5. 5 minutes check for the 1st [address] scan head without contrast. No evidence of recent stroke as per CT scan of October 16, probably she had a TIA. 7. We will try to gather records from [facility] 8. Increase RExulti Up to 2 mg p.o. daily 9. Klonopin was lowered to 1.5 p.o. q.h.s. due to over-sedation Reason for continued inpatient stay Substantial Risk for: inability to function, rapid decompensation and med/psych decompensation Time Spent With Patient Time: Total time managing care of this patient today __20__ minutes.
[2022-10-24] MEDS: Brexpiprazole 2 MG TABLET PO (17:08)
[2022-10-24 18:00] VITALS: BP 136/63; PULSE 75; RESP 18; TEMP 37; O2SAT 94
[2022-10-24] MEDS: Mirtazapine 15 MG TABLET 45 MG PO (20:23)
[2022-10-24] MEDS: traZODone HCL 50 MG TABLET PO (20:23)
[2022-10-24] MEDS: clonazePAM 0.5 MG TABLET 1.5 MG PO (20:23)
[2022-10-24] MEDS: Acetaminophen 325 MG TABLET 650 MG PO (20:24)
[2022-10-25 08:00] VITALS: BP 118/58; PULSE 86; RESP 18; TEMP 36.7; O2SAT 92
[2022-10-25] MEDS: FLUoxetine HCl 20 MG CAPSULE 60 MG PO (08:20)
[2022-10-25] MEDS: Metoprolol Succinate ER 12.5 MG HALFTAB.ER.24H PO (08:25)
[2022-10-25 11:01] VITALS: BMI 22.1
--- NOTE | 2022-10-25 13:56 | P.PNPSI_ITS ---
Subjective Subjective Date of Service: 10/25/22 Reason For Visit: SI Subjective Notes: Conditional Voluntary Interim History: THE NURSING STAFF REPORTED THE PATIENT HAS BEEN VISIBLE IN THE UNIT, ATTENDED TO GROUPS, SHE SLEPT WELL. SHE HAD BEEN 100% COMPLIANT WITH MEDICATIONS AND SHE LOOKS SLIGHTLY BETTER. ON INTERVIEW THE PATIENT REPORTS THAT SHE IS FEELING MUCH BETTER AND SHE IS WILLING TO BE DISCHARGED SOON. Mental Status Exam Mental Status Exam Patient Appearance: Well Grooomed and Appropriate Patient Orientation: Person, Place and Situation Level of Consciousness: Awake and Appropriate Patient Behavior: Guarded and Passive Mood Description: Constricted Affect Description: Calm Patient Cognition Impaired: Yes Ability to Follow Directions: Good Speech Pattern: Clear and Appropriate Hallucinations: None Delusions: Not Present Thought Process: Linear Thought Content: positive for [place] and positive for Circumstantial Judgement: Fair Diagnostics Vital Signs (24Hr): Vital Signs - 24 hr 10/24/22 18:00 10/25/22 08:00 Temperature 98.6 F 98.1 F Pulse Rate 75 86 Respiratory Rate 18 18 Blood Pressure 136/63 118/58 L Pulse Oximetry 94 92 Oxygen Delivery Method Room Air Room Air BMI result Body Mass Index 22.1 Labs 10/14/22 04:35 10/16/22 07:46 Imaging Radiology Impressions: ITS Impressions Head CT 10/16/22 09:26 IMPRESSION: - No acute intracranial abnormality. 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 Medications Medications Current Medications Acetaminophen (Acetaminophen 325 Mg Tablet) 650 mg PO Q6H PRN PRN Reason: Headache/Pain Mild Scale (1-3) Last Admin: 10/24/22 20:24 Dose: 650 mg Al Hydroxide/Mg Hydroxide (Magnesium Hydrox/Alum Hydrox 30 Ml Oral.Susp) 30 ml PO Q6H PRN PRN Reason: Heartburn/Nausea Brexpiprazole (Brexpiprazole 2 Mg Tablet) 2 mg PO DAILY@1700 [facility] Last Admin: 10/24/22 17:08 Dose: 2 mg Clonazepam (Clonazepam 0.5 Mg Tablet) 0.5 mg PO BID PRN PRN Reason: anxiety attack Last Admin: 10/16/22 08:14 Dose: 0.5 mg Clonazepam (Clonazepam 0.5 Mg Tablet) 1.5 mg PO BEDTIME [facility]JA Last Admin: 10/24/22 20:23 Dose: 1.5 mg Clonidine HCl (Clonidine Hcl 0.1 Mg Tablet) 0.1 mg PO BID PRN; Protocol PRN Reason: panic attack Fluoxetine HCl (Fluoxetine Hcl 20 Mg Capsule) 60 mg PO DAILY [facility] Last Admin: 10/25/22 08:20 Dose: 60 mg Hydroxyzine HCl (Hydroxyzine Hcl 25 Mg Tablet) 25 mg PO Q6H PRN PRN Reason: Anxiety Loperamide HCl (Loperamide Hcl 2 Mg Capsule) 2 mg PO Q6H PRN PRN Reason: Diarrhea Magnesium Hydroxide (Milk Of Magnesia 30 Ml Oral.Susp) 30 ml PO DAILY PRN PRN Reason: Constipation Metoprolol Succinate (Metoprolol Succinate Er 12.5 Mg Halftab.Er.24h) 12.5 mg PO DAILY [facility]; Protocol Last Admin: 10/25/22 08:25 Dose: 12.5 mg Mirtazapine (Mirtazapine 15 Mg Tablet) 45 mg PO BEDTIME [facility] Last Admin: 10/24/22 20:23 Dose: 45 mg Nicotine Polacrilex (Nicotine Polacrilex 2 Mg Gum) 2 mg BUCCAL Q2H PRN PRN Reason: craving Trazodone HCl (Trazodone Hcl 100 Mg Tablet) 100 mg PO BEDTIME PRN PRN Reason: Insomnia Trazodone HCl (Trazodone Hcl 50 Mg Tablet) 50 mg PO BEDTIME [facility] Last Admin: 10/24/22 20:23 Dose: 50 mg Allergies Allergies Allergy/AdvReac Type Severity Reaction Status Date / Time adhesive AdvReac Unknown Verified 10/14/22 04:34 aspirin AdvReac Unknown Verified 10/14/22 04:34 epinephrine AdvReac Unknown Verified 10/14/22 04:34 Assessment & Plan Assessment & Plan (1) COPD (chronic obstructive pulmonary disease): Status: Acute Code(s): J44.9 - Chronic obstructive pulmonary disease, unspecified (2) PTSD (post-traumatic stress disorder): Status: Acute Code(s): F43.10 - Post-traumatic stress disorder, unspecified (3) MDD (major depressive disorder), recurrent episode, moderate: Status: Acute Code(s): F33.1 - Major depressive disorder, recurrent, moderate (4) Suicidal ideation: Status: Acute Code(s): R45.851 - Suicidal ideations (5) Hyperlipidemia: Status: Acute Code(s): E78.5 - Hyperlipidemia, unspecified Plan The patient is an elderly female with a long history of major depressive disorder recurrent episode severe without psychosis, PTSD and other medical comorbidities, very well known by this team since she had been admitted several times for suicidal ideation. She recently lost her on June of 2022 and since then she had been more dysphoric. She is admitted for suicidal ideation in the context of inconsistent compliance. Plan 1. Gather collateral information. 2. Continue with Remeron Prozac and other medications. 3. Lipid panel, TSH, hemoglobin A1c and blood work for tomorrow a.m.. 4. Reassessment with results. 5. 5 minutes check for the 1st [address] scan head without contrast. No evidence of recent stroke as per CT scan of October 16, probably she had a TIA. 7. We will try to gather records from [facility] 8. Increase RExulti Up to 2 mg p.o. daily 9. Klonopin was lowered to 1.5 p.o. q.h.s. due to over-sedation Reason for continued inpatient stay Substantial Risk for: inability to function, rapid decompensation and med/psych decompensation Time Spent With Patient Time: Total time managing care of this patient today __20__ minutes.
[2022-10-25] MEDS: clonazePAM 0.5 MG TABLET PO (15:05)
[2022-10-25] MEDS: Brexpiprazole 2 MG TABLET PO (17:49)
[2022-10-25 18:00] VITALS: BP 153/79; PULSE 97; RESP 18; TEMP 36.6; O2SAT 95
[2022-10-25] MEDS: Mirtazapine 15 MG TABLET 45 MG PO (21:10)
[2022-10-25] MEDS: clonazePAM 0.5 MG TABLET 1.5 MG PO (21:11)
[2022-10-25] MEDS: traZODone HCL 50 MG TABLET PO (21:11)
[2022-10-25] MEDS: Acetaminophen 325 MG TABLET 650 MG PO (21:21)
[2022-10-26 07:50] VITALS: BP 144/87; PULSE 75; RESP 14; TEMP 36.7; O2SAT 94
--- NOTE | 2022-10-26 08:19 | PM.PSYDC ---
DS: Providers Provider Date of Service: 10/26/22 Date of admission: 10/15/22 13:05 Date of discharge: 10/26/22 Primary care physician: Naty Physician Attending physician on discharge: James Garcia DS: Diagnosis Discharge Diagnosis (1) MDD (major depressive disorder), recurrent episode, moderate: Status: Acute (2) PTSD (post-traumatic stress disorder): Status: Acute (3) Suicidal ideation: Status: Acute (4) COPD (chronic obstructive pulmonary disease): Status: Acute (5) Hyperlipidemia: Status: Acute DS: Medications Discharge Medications Home Medications: Home Medications Medication Instructions Recorded Confirmed acetaminophen 325 mg tablet 650 mg PO Q6H PRN Pain 10/14/22 10/14/22 aspirin 81 mg tablet,delayed 81 mg PO BEDTIME 10/14/22 10/14/22 release loperamide 2 mg capsule 2 mg PO Q6H PRN Diarrhea 10/14/22 10/14/22 metoprolol succinate 25 mg 12.5 mg PO DAILY 10/14/22 10/14/22 tablet,extended release 24 hr trazodone 100 mg tablet 100 mg PO BEDTIME 10/14/22 10/14/22 Previous Rx's Medication Instructions Recorded brexpiprazole 1 mg tablet (Rexulti) 1.5 mg PO DAILY@1700 30 days #45 05/23/22 tabs clonazepam 0.5 mg tablet 1 tab PO BID PRN anxiety attack 30 05/23/22 days #60 tabs clonazepam 2 mg tablet (Klonopin) 2 mg PO BEDTIME #30 tabs 05/23/22 clonidine HCl 0.1 mg tablet 1 tab PO BID PRN panic attack 30 05/23/22 days #60 tabs Mental Status Exam Mental Status Exam Patient Appearance: Well Grooomed and Appropriate Patient Orientation: Person, Place and Situation Level of Consciousness: Awake and Appropriate Patient Behavior: Appropriate, Cooperative and Passive Mood Description: Appropriate Affect Description: Constricted Patient Cognition Impaired: No Ability to Follow Directions: Good Speech Pattern: Clear Hallucinations: None Delusions: Not Present Thought Process: Linear Thought Content: positive for [place] and positive for Circumstantial Judgement: Fair Data Imaging Diagnostic Imaging Impressions Head CT 10/16/22 09:26 IMPRESSION: - No acute intracranial abnormality. 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 DS: Summary Hospital Course Hospital Course: The patient is a 77-year-old female with a long history of major depressive disorder and PTSD, very well known by the service. The patient was brought to the emergency room since she complained of suicidal ideation, she had been poorly compliant with her outpatient medications. Please see the HPI of the admission note for further details. On admission, we assessed her medications and also, we reviewed her medical problems. She reported, besides her chronic symptoms of dysphoria, sporadic episodes of increased energy, elated mood, shopping sprees and irritability. Usually, the patient does not have hypomanic symptoms and she stated the a few weeks ago she was diagnosed with a vascular problem and she was admitted at [facility]. New CT scans were ordered, no evidence of a new stroke but chronic microvascular disease. The patient was restarted on her regular medications, we increased her a typical antipsychotic that was used as augmentation for depression to a therapeutic dose as a mood stabilizer. Also, we lowered her Klonopin from 2 mg p.o. q.h.s. to 1.5 mg p.o. q.h.s. due to over-sedation. The patient was able to participate in groups, she was future oriented and she was able to contract for safety. Since there were no safety concerns discharge planning was discussed. Time spent discussing smoking cessation with patient: 3 to 10 minutes Status at Discharge Cognitive/behavioral status at discharge: At baseline Functional status at discharge: independent ambulation Overall status at discharge: patient is back to baseline Time Spent with Patient Time attestation: Total time managing care of this patient today __30__ minutes. Time spent: Less than 30 minutes Discharge Plan Discharge Anticipated Discharge Date/Time: 10/26/22 11:00 Patient Disposition: Home, Self-Care Discharge Diagnosis: Major depressive disorder recurrent severe without psychotic features. PTSD Referrals: Dk Bee [facility] [Other] - 10/30/22 10:00 am (Your next appointment is scheduled with your therapist on Saturday10/30/22 at 1000. Continue weekly therapy sessions.) Gage Amado APRN [facility] [Other] - 11/14/22 3:30 pm (Your next appointment with Gage Amado is scheduled for 11/14/22 at 3:30pm by telehealth. ) Dr. Josiah Mora [Other] - 1 Week [facility] [Other] - 10/30/22 (Please contact [facility] to restart laundry service.) Discharge Medications: New Rexulti 2 mg Tablet 2 mg PO DAILY@1700 30 Days Qty: 30 0RF trazodone 50 mg Tablet 50 mg PO BEDTIME 30 Days Qty: 30 0RF clonazepam 0.5 mg Tablet 1.5 mg PO BEDTIME 30 Days Qty: 90 0RF trazodone 100 mg Tablet 100 mg PO BEDTIME PRN (Reason: Insomnia) 30 Days Qty: 30 0RF mirtazapine 15 mg Tablet 45 mg PO BEDTIME 30 Days Qty: 90 0RF fluoxetine 20 mg Capsule 60 mg PO DAILY 30 Days Qty: 90 0RF Continued clonidine HCl 0.1 mg tablet 1 tab PO BID PRN (Reason: panic attack) 30 Days Qty: 60 0RF acetaminophen 325 mg tablet 650 mg PO Q6H PRN (Reason: Pain) 30 Days Qty: 30 0RF loperamide 2 mg Capsule 2 mg PO Q6H PRN (Reason: Diarrhea) 30 Days Qty: 30 0RF clonazepam 0.5 mg tablet 1 tab PO BID PRN (Reason: anxiety attack) 30 Days Qty: 60 0RF aspirin 81 mg tablet,delayed release (DR/EC) 81 mg PO BEDTIME 30 Days Qty: 30 0RF metoprolol succinate 25 mg tablet extended release 24 hr 12.5 mg PO DAILY 30 Days Qty: 15 0RF Discontinued Rexulti 1 mg Tablet 1.5 mg PO DAILY@1700 30 Days Qty: 45 0RF clonazepam [Klonopin] 2 mg tablet 2 mg PO BEDTIME Qty: 30 0RF Rx Instructions: administer 30 minutes before bedtime trazodone 100 mg tablet 100 mg PO BEDTIME Discharge Orders: Discharge Order (Routine); Ordered 10/26/22 Ordered By: James Garcia Diet: Advance to usual diet Activity on Discharge: As tolerated Stand Alone Forms: Patient Portal Discharge page Care Plan Goals: Care plan goals achieved in this admission Health Concerns: Continue treatment with primary care physician Plan of Treatment: Continue with outpatient providers for medication management and psychotherapy. Assessment: Elderly female with a long history of major depressive disorder and PTSD admitted for exacerbation of depression with suicidal ideation in the context of limited compliance. The patient was restarted on her medications, and she lytics were changed and Rexulti increased with for improvement. At this moment future oriented able to contract for safety, no safety concerns
[2022-10-26] MEDS: FLUoxetine HCl 20 MG CAPSULE 60 MG PO (09:33)
[2022-10-26] MEDS: Metoprolol Succinate ER 12.5 MG HALFTAB.ER.24H PO (09:33)
== END 2022-10-26 11:15 | disposition home or self-care (01) | DRG 885 ==
LOC: HO.ED 10-15 12:40 → HO.PGERI 10-15 13:20
PROVIDERS: Admitting Provider Psychiatry & Neurology Psychiatry; Emergency Provider Student in an Organized Health Care Education/Training Program; Visit Provider Psychiatry & Neurology Psychiatry
DX: F33.1 Major depressive disorder, recurrent, moderate (principal); R45.851 Suicidal ideations; J44.9 Chronic obstructive pulmonary disease, unspecified; E78.5 Hyperlipidemia, unspecified; F43.10 Post-traumatic stress disorder, unspecified; F17.210 Nicotine dependence, cigarettes, uncomplicated; Z20.822 Contact with and (suspected) exposure to COVID-19; Z71.6 Tobacco abuse counseling; Z86.73 Personal history of transient ischemic attack (TIA), and cerebral infarction without residual deficits; Z88.6 Allergy status to analgesic agent; Z88.8 Allergy status to other drugs, medicaments and biological substances; Z79.82 Long term (current) use of aspirin; Z79.899 Other long term (current) drug therapy
CPT/HCPCS: 36415; 70450; 80048; 80053; 80061; 80307; 81001; 82077; 83036; 84443; 85025; 87635; 93005; 99285; S9485

== ENCOUNTER 2023-04-24 10:46 | Inpatient (IN) | payer MEDICARE, SELFPAY ==
[2023-04-24 10:49] VITALS: BP 138/72; PULSE 92; O2SAT 96
--- NOTE | 2023-04-24 10:49 | ED.GENADULT ---
HPI - General Adult General Chief complaint: Psychiatric Symptoms Stated complaint: CRISIS EVAL/?MED ADUSTMENT PER EMS Time Seen by Provider: 04/24/23 10:49 Source: patient and EMS Mode of arrival: EMS Limitations: no limitations History of Present Illness HPI narrative: Patient is a 77 year old assigned female at with a history of MDD, PTSD, HTN, and COPD presenting to the emergency department today with chronic suicidal ideation and requesting medication adjustments. Patient states that she has an extensive psychiatric history and recently, multiple of her medications were stopped. Patient states that she wants to be admitted to our psychiatric unit to get her medications adjusted again. Patient states that she is suicidal all the time and this is not new for her. Patient denies any dizziness, lightheadedness, abdominal pain, nausea, vomiting, fever, chills, blurry vision, double vision, loss of vision, chest pain, difficulty breathing, shortness of breath, back pain, night sweats, pain with urination, increased urinary frequency, increased urinary urgency, blood in her urine or stool, syncope or a near syncopal episode, recent trauma or falls, bowel incontinence, bladder incontinence, bowel retention, bladder retention, or any other complaints at this time. Relieving factors: none Exacerbating factors: none Associated symptoms: denies other symptoms Treatments prior to arrival: none Related Data Previous Rx's Medication Instructions Recorded acetaminophen 325 mg tablet 650 mg (2 x 325 mg) PO Q6H PRN 10/26/22 Pain 30 days #30 tabs aspirin 81 mg tablet,delayed 81 mg PO BEDTIME 30 days #30 tabs 10/26/22 release brexpiprazole 2 mg tablet (Rexulti) 2 mg PO DAILY@1700 30 days #30 tabs 10/26/22 clonazepam 0.5 mg tablet 1 tab PO BID PRN anxiety attack 10/26/22 days #60 tabs clonazepam 0.5 mg tablet 1.5 mg (3 x 0.5 mg) PO BEDTIME 30 10/26/22 days #90 tabs clonidine HCl 0.1 mg tablet 1 tab PO BID PRN panic attack 30 10/26/22 days #60 tabs fluoxetine 20 mg capsule 60 mg (3 x 20 mg) PO DAILY 30 days 10/26/22 #90 caps loperamide 2 mg capsule 2 mg PO Q6H PRN Diarrhea 30 days 10/26/22 #30 caps metoprolol succinate 25 mg 12.5 mg (1/2 x 25 mg) PO DAILY 30 10/26/22 tablet,extended release 24 hr days #15 tabs mirtazapine 15 mg tablet 45 mg (3 x 15 mg) PO BEDTIME 30 10/26/22 days #90 tabs trazodone 100 mg tablet 100 mg PO BEDTIME PRN Insomnia 30 10/26/22 days #30 tabs trazodone 50 mg tablet 50 mg PO BEDTIME 30 days #30 tabs 10/26/22 Allergies Allergy/AdvReac Type Severity Reaction Status Date / Time adhesive AdvReac Unknown Verified 10/14/22 04:34 aspirin AdvReac Unknown Verified 10/14/22 04:34 epinephrine AdvReac Unknown Verified 10/14/22 04:34 Review of Systems Constitutional: Constitutional: Reports no additional constitutional complaints, Denies chills, Denies fever(s) and Denies night sweats Eyes: Eyes: Reports no additional eye complaints, Denies blurry vision, Denies change in vision, Denies diplopia, Denies eye discharge, Denies loss of vision and Denies eye pain ENT: Denies dizziness Cardiovascular: Cardiovascular: Reports no additional cardiovascular complaints, Denies chest pain, Denies lightheadedness, Denies Loss of Consciousness and Denies dyspnea Respiratory: Respiratory: Reports no additional respiratory complaints and Denies dyspnea Gastrointestinal: Gastrointestinal: Reports no additional gastrointestinal complaints, Denies abdominal pain, Denies melena, Denies hematochezia, Denies change in bowel habits and Denies change in stool character Genitourinary: Genitourinary: Denies hematuria, Denies urinary frequency, Denies dysuria, Denies urinary incontinence, Denies urinary hesitancy and Denies urinary urgency Musculoskeletal: Musculoskeletal: Reports no additional musculoskeletal complaints, Denies numbness and Denies tingling Neurologic: Denies dizziness, Denies loss of vision, Denies numbness and Denies tingling Psychiatric: Psychiatric: Reports depression and Reports suicidal ideation (chronically) Endocrine: Endocrine: Reports no additional endocrine complaints Hematologic/Lymphatic: Hematologic/Lymphatic: Reports no additional hematologic/lymphatic complaints Allergic/Immunologic: Allergic/Immunologic: Reports no additional allergic/immunologic complaints PMFSH Past Medical History Attestation statement: The following information was validated with the patient. Source: old records reviewed and nursing notes reviewed Medical History C. difficile diarrhea Mitral valve prolapse Tobacco abuse TIA (transient ischemic attack) Prediabetes Hyperlipidemia Depression PTSD (post-traumatic stress disorder) Essential hypertension COPD (chronic obstructive pulmonary disease) Surgical History History of parathyroidectomy History of colectomy Social History Social History Household Members: None Housing: Apartment Do you presently have visiting nurse or other home services: No Alcohol intake: current Alcohol intake frequency: a few times a month Patient Tobacco Use Status: Current everyday Tobacco user Tobacco use type: Cigarette Cigarette Packs Per Day: 0.1 Cigarettes Per Day: 10 Years Smoked: 15 years Smoked in Last 30 Days: Yes e-Cigarette/Vaping Use: Never Used Second Hand Smoke Exposure: Yes Use of substances other than those prescribed or required for medical reasons: No Substance Use Type: Prescription Drugs and Caffiene Advance Directives: Yes Advance Directives on File: Yes Advance Directives Date on File: 02/08/22 service: No Sexual orientation: Straight/Heterosexual Physical Exam ED Vital Signs: Vital Signs - 24 hr 04/24/23 10:59 04/24/23 12:13 Temperature 98.1 F 98.2 F Pulse Rate 88 87 Respiratory Rate 18 20 Blood Pressure 112/57 L 163/97 H Pulse Oximetry 95 Oxygen Delivery Method Room Air Room Air BMI result Body Mass Index 24.5 Const General: cooperative, no acute distress, alert and awake Nutritional Appearance: well nourished Orientation/consciousness: patient oriented x3 Limitations: no limitations HENMT Head: Yes normal to inspection and Yes atraumatic Ears: hearing grossly normal bilaterally and external ears normal General nose exam: Normal external nose present, no nasal discharge noted and no epistaxis Face and sinus: Yes normal facial exam, No abrasion and No laceration Mouth: Normal oral and palatal mucosa present, no drooling and no muffled voice Eyes General: appearance normal, both eyes and all related structures Periorbital: periorbital findings normal Eyelids: Yes eyelids normal Conjunctivae: conjunctivae normal Pupils: Equal, round and reactive pupils present EOM: EOMs intact bilaterally Neck Neck: Yes normal visual inspection, Yes full ROM and Yes no lymphadenopathy Chest Chest palpation & inspection: normal inspection of the chest Resp Effort & Inspection: normal respiratory effort and able to speak in complete sentences GI Inspection: Yes normal to inspection Neuro General: patient oriented x3 and moves all extremities Cranial nerves: Yes Equal, round and reactive pupils present Cognition (Neuro): normal cognition Motor exam (neuro): 5/5 motor strength present throughout Sensory Exam: Normal double simultaneous stimulation for sensation Coordination: [id number] test normal Extrem General: Yes normal to inspection, Yes full ROM and Yes capillary refill normal Psych Appearance: grossly normal Mental Status: mental status grossly normal Affect: normal affect Attitude: cooperative Thought process: Normal thought process present Thought content: Suicidality present Course Reevaluation(s) Reevaluation #1: CARE team has evaluated the patient and recommends psychiatric admission. Time: 15:39 Medical Decision Making Medical Decision Making [facility] Narrative: Patient is a 77 year old assigned female at with a history of PTSD, MDD, and COPD presenting to the emergency department today requesting psychiatric admission. Patient's physical exam was unremarkable. Patient's blood work was unremarkable. Patient's urine showed a possible urinary tract infection however, the patient denies any symptoms at this time. Will await culture result before initiating treatment. Patient's EKG was unremarkable. I explained my physical exam findings as well as all test results to the patient. I answered all questions asked by the patient. Patient is awaiting CARE team evaluation for disposition to be determined. Differential Diagnosis Differential Diagnoses: The differential diagnosis associated with the presentation includes Psychiatric evaluation Depression Suicidal ideation (chronic) Admission/Observation Consideration of admission/observation: Escalation of care including admission/observation considered Patient to be psychiatrically admitted. Consult Healthcare Provider Management of the patient was discussed with: Behavioral Health Provider (spoke with CARE team who recommended psychiatric admission.) Lab Data [facility] Lab Attestation statement: I reviewed the patient's lab results. My interpretation of these results are in the MDM Rationale portion of this note. 04/24/23 11:46 04/24/23 11:46 Labs: Lab Results 04/24/23 Range/Units 11:46 WBC 8.6 (4.8-10.8) X10*3/uL RBC 4.30 (4.20-5.50) X10*6/uL Hgb 13.2 (12.0-16.0) g/dl Hct 37.7 (37.0-47.0) % MCV 87.7 (80.0-98.0) fL MCH 30.7 (27.0-33.0) pg MCHC 35.0 (31.0-35.0) g/dl RDW 14.5 (11.0-16.0) % Plt Count 297 (160-400) X10*3/uL MPV 9.2 L (9.4-12.3) fL Immature Gran % (Auto) 0.5 H (0.0-0.4) % Neut % (Auto) 66.5 (45-73) % Lymph % (Auto) 21.2 (20-40) % [place] % (Auto) 8.8 (2-11) % Eos % (Auto) 2.3 (0-4) % Baso % (Auto) 0.7 (0-2) % Lymph # (Auto) 1.8 (1.2-4.9) X10*3/uL [place] # (Auto) 0.8 (0.1-1.2) X10*3/uL Eos # (Auto) 0.2 (0.0-0.4) X10*3/uL Baso # (Auto) 0.1 (0.0-0.2) X10*3/uL Abs Immat Gran (auto) 0.04 H (0.00-0.03) X10*3/uL Absolute Neuts (auto) 5.7 (2.0-8.3) x10*3/uL Absolute Nucleated RBC 0.000 (0.0-0.012) X10*3/uL Nucleated RBC % (auto) 0.0 (0.0-0.2) /100WBC Sodium 139 (135-145) mmol/L Potassium 3.8 (3.3-5.1) mmol/L Chloride 108 (96-108) mmol/L Carbon Dioxide 20 L (22-29) mmol/L Anion Gap 15 (12-20) BUN 13 (9-16) mg/dL Creatinine 0.74 (0.5-1.4) mg/dL Estim Creat Clear Calc 58.1 Estimated GFR > 60 Random Glucose 112 (60-115) mg/dL Calcium 9.6 (8.4-10.2) mg/dL Total Bilirubin 0.2 (0.0-1.0) mg/dL AST 22 (5-31) U/L ALT 13 (0-31) U/L Alkaline Phosphatase 81 (39-117) U/L Total Protein 7.2 (6.5-8.0) g/dL Albumin 3.9 (3.5-5.0) g/dL Urine Color Yellow Urine Appearance Clear Urine pH 6.0 (5.0-9.0) Ur Specific [place] 1.015 (1.005-1.025) Urine Protein 30 (1+) H (Neg-Trace) mg/dL Urine Glucose (UA) Negative (Negative) mg/dL Urine Ketones Negative (Negative) mg/dL Urine Blood Negative (Negative) Urine Nitrite Negative (Negative) Ur Leukocyte Esterase Moderate (2+) H (Negative) Urine RBC 3-5 H (0-2) /HPF Urine WBC 11-20 H (0-5) /HPF Ur Squamous Epith Cells 3-5 (0-2) /HPF Urine Bacteria 1+ (None Seen) Hyaline Casts 0-2 (0-2) /LPF Salicylates < 5.0 L (15-30) mg/dL Urine Opiates Screen Not Detected (Not Detect) Urine Fentanyl Screen Not Detected (Not Detect) Acetaminophen < 17 (<30) mcg/mL Ur Barbiturates Screen Not Detected (Not Detect) Ur Phencyclidine Scrn Not Detected (Not Detect) Ur Amphetamines Screen Not Detected (Not Detect) U Benzodiazepines Scrn Not Detected (Not Detect) Urine Cocaine Screen Not Detected (Not Detect) U Marijuana (THC) Screen Not Detected (Not Detect) Ethyl Alcohol < 10 mg/dL COVID-19 (LANE) Negative (Negative) COVID-19 Clin Com See Note Independent Interpretation I performed an independent interpretation of an: EKG Interpretation: Vent. Rate: 083 BPM Atrial Rate: 083 BPM P-R Int: 140 ms QRS Dur: 126 ms QT Int: 454 ms P-R-T Axes: -46 011 054 degrees QTc Int: 533 ms Unusual P axis, possible ectopic atrial rhythm with occasional Premature ventricular complexes in a pattern of bigeminy Left bundle branch block Abnormal ECG When compared with ECG of 14-OCT-2022 04:20, Ectopic atrial rhythm has replaced Sinus rhythm Left bundle branch block is now Present DD/ [id number] Independent Historian Clinical information obtained from an independent historian. History obtained from or confirmed by: EMS (EMS provided additional history and confirmed the history provided by the patient.) External Record Review External record reviewed: Inpatient record Critical Care Time Critical Care Time Critical Care Time: Yes Total Critical Care Time: 40 Attestation: I spent 40 minutes of Critical Care Time with this patient. This does not include time spent on separately reported billable procedures. Discharge Plan Discharge Clinical Impression: Depression, Suicidal ideation Patient Disposition: Still a Patient Prescriptions: No Action Rexulti 2 mg Tablet 2 mg PO DAILY@1700 30 Days Qty: 30 0RF trazodone 50 mg Tablet 50 mg PO BEDTIME 30 Days Qty: 30 0RF clonazepam 0.5 mg Tablet 1.5 mg PO BEDTIME 30 Days Qty: 90 0RF trazodone 100 mg Tablet 100 mg PO BEDTIME PRN (Reason: Insomnia) 30 Days Qty: 30 0RF mirtazapine 15 mg Tablet 45 mg PO BEDTIME 30 Days Qty: 90 0RF fluoxetine 20 mg Capsule 60 mg PO DAILY 30 Days Qty: 90 0RF clonidine HCl 0.1 mg tablet 1 tab PO BID PRN (Reason: panic attack) 30 Days Qty: 60 0RF acetaminophen 325 mg tablet 650 mg PO Q6H PRN (Reason: Pain) 30 Days Qty: 30 0RF loperamide 2 mg Capsule 2 mg PO Q6H PRN (Reason: Diarrhea) 30 Days Qty: 30 0RF clonazepam 0.5 mg tablet 1 tab PO BID PRN (Reason: anxiety attack) 30 Days Qty: 60 0RF aspirin 81 mg tablet,delayed release (DR/EC) 81 mg PO BEDTIME 30 Days Qty: 30 0RF metoprolol succinate 25 mg tablet extended release 24 hr 12.5 mg PO DAILY 30 Days Qty: 15 0RF
[2023-04-24 10:59] VITALS: BP 112/57; BP 180/87; PULSE 88; RESP 18; RESP 84; TEMP 36.7; O2SAT 93; O2SAT 95; BMI 24.5
--- NOTE | 2023-04-24 10:59 | ECG_ITS ---
Test Reason : Polypharmacy / Medical Clearance Blood Pressure : / mmHG Vent. Rate : 083 BPM Atrial Rate : 083 BPM P-R Int : 140 ms QRS Dur : 126 ms QT Int : 454 ms P-R-T Axes : -46 011 054 degrees QTc Int : 533 ms Unusual P axis, possible ectopic atrial rhythm with occasional Premature ventricular complexes in a pattern of bigeminy Left bundle branch block Abnormal ECG When compared with ECG of 14-OCT-2022 04:20, Ectopic atrial rhythm has replaced Sinus rhythm Left bundle branch block is now Present Heart rate has decreased Referred By: Nathalie Howell Electronically Signed By:ROSARIO HERR MD
[2023-04-24 11:51] LABS: MANUAL DIFF FLAG NO
[2023-04-24 11:53] LABS: Basophils Absolute Auto 0.1 X10*3/uL (0.0-0.2); Basophils Percent Auto 0.7 % (0-2); Eosinophils Absolute Auto 0.2 X10*3/uL (0.0-0.4); Eosinophils Percent Auto 2.3 % (0-4); Hematocrit 37.7 % (37.0-47.0); Hemoglobin 13.2 g/dl (12.0-16.0); Imm Gran Abs Auto 0.04 X10*3/uL (0.00-0.03); Imm Gran Pct Auto 0.5 % (0.0-0.4); Lymphocytes Absolute Auto 1.8 X10*3/uL (1.2-4.9); Lymphocytes Percent Auto 21.2 % (20-40); Mean Corpuscular Hemoglobin 30.7 pg (27.0-33.0); Mean Corpuscular Volume 87.7 fL (80.0-98.0); Mean Platelet Volume 9.2 fL (9.4-12.3); Monocytes Absolute Auto 0.8 X10*3/uL (0.1-1.2); Monocytes Percent Auto 8.8 % (2-11); Neutrophils Absolute Auto 5.7 x10*3/uL (2.0-8.3); Neutrophils Percent Auto 66.5 % (45-73); Platelet Count 297 X10*3/uL (160-400); Red Cell Distribution Width 14.5 % (11.0-16.0); White Blood Count 8.6 X10*3/uL (4.8-10.8)
[2023-04-24 11:54] LABS: Appearance Urine Clear; Color Urine Yellow; Glucose Urine UA Negative (Negative); Leukocyte Esterase Urine Moderate (2+) (Negative); Nitrite Urine Negative (Negative); Specific Gravity - Urine 1.015 (1.005-1.025); UMIC TRIGGER UA YES; Urine Blood Negative (Negative); Urine Ketones Negative (Negative); Urine Protein 30 (1+) mg/dL (Neg-Trace)
[2023-04-24 11:59] LABS: Bacteria Urine 1+ (None Seen); Hyaline Casts Urine 0-2 /LPF (0-2)
[2023-04-24 12:08] LABS: Acetaminophen LAB < 17 mcg/mL (<30); Alanine Aminotransferase 13 U/L (0-31); Albumin Level 3.9 g/dL (3.5-5.0); Alkaline Phosphatase 81 U/L (39-117); Anion Gap 15 (12-20); Aspartate Amino Transferase 22 U/L (5-31); Bilirubin Total 0.2 mg/dL (0.0-1.0); Blood Urea Nitrogen 13 mg/dL (9-16); Calcium 9.6 mg/dL (8.4-10.2); Carbon Dioxide 20 mmol/L (22-29); Chloride 108 mmol/L (96-108); Creatinine Clr Calc Pharmacy 58.1; Estimated Glomerular Filt Rate > 60; Ethanol < 10 mg/dL; Glucose Random 112 mg/dL (60-115); Potassium 3.8 mmol/L (3.3-5.1); Salicylate < 5.0 mg/dL (15-30); Sodium 139 mmol/L (135-145); Total Protein 7.2 g/dL (6.5-8.0)
[2023-04-24 12:13] VITALS: BP 163/97; PULSE 87; RESP 20; TEMP 36.8
[2023-04-24 12:16] LABS: COVID-19 Test Negative (Negative); IDNOW Serial# BCCEAD1C
[2023-04-24 15:06] LABS: Amphetamine Screen Urine Not Detected (Not Detect); Barbiturates, Urine Not Detected (Not Detect); Benzodiazepines Screen Urine Not Detected (Not Detect); Cannabinoid Screen Urine Not Detected (Not Detect); Cocaine Screen Urine Not Detected (Not Detect); Fentanyl, urine Not Detected (Not Detect); Opiate Screen Urine Not Detected (Not Detect); Phencyclidine Screen Urine Not Detected (Not Detect)
[2023-04-24 15:39] VITALS: BP 141/64; PULSE 79; RESP 18; O2SAT 95
--- NOTE | 2023-04-24 16:08 | PC.NURSE ---
patient has remained calm and cooperative, in hallway bed. denies HI/SI. patient has rings on her fingers due to not being able to take them off.
--- NOTE | 2023-04-24 16:43 | PC.NURSE ---
patient belongings in [place] [id number]
[2023-04-24] MEDS: LORazepam 1 MG TABLET 2 MG PO (16:53)
--- NOTE | 2023-04-24 17:04 | PC.NURSE ---
patient is hyper verbal, requested medication to help calm her. medicated pt per MAR, patient states she is not SI/HI, awaiting bed on [facility]
[2023-04-24 21:25] VITALS: BP 175/85; RESP 16; TEMP 36.9; O2SAT 93
[2023-04-24] MEDS: clonazePAM 1 MG TABLET PO (22:56)
[2023-04-24] MEDS: hydrOXYzine HCL 25 MG TABLET PO (22:57)
[2023-04-24] MEDS: OLANZapine ODT 10 MG TAB.RAPDIS TRANSLINGU (22:57)
[2023-04-24] MEDS: cloNIDine HCL 0.2 MG TABLET PO (22:57)
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
[2023-04-25 08:00] VITALS: BP 140/91; PULSE 84; RESP 18; TEMP 36; O2SAT 96
[2023-04-25 08:15] LABS: Alanine Aminotransferase 13 U/L (0-31); Albumin Level 3.7 g/dL (3.5-5.0); Alkaline Phosphatase 63 U/L (39-117); Anion Gap 13 (12-20); Aspartate Amino Transferase 20 U/L (5-31); Bilirubin Total 0.4 mg/dL (0.0-1.0); Blood Urea Nitrogen 16 mg/dL (9-16); Calcium 9.6 mg/dL (8.4-10.2); Carbon Dioxide 21 mmol/L (22-29); Chloride 108 mmol/L (96-108); Cholesterol 248 mg/dL (<200); Creatinine Clr Calc Pharmacy 59.8; Estimated Glomerular Filt Rate > 60; Glucose Fasting 102 mg/dL (60-99); HDL Cholesterol 57 mg/dL (>40); LDL Cholesterol Calculated 174 mg/dL (<100); Potassium 4.2 mmol/L (3.3-5.1); Sodium 138 mmol/L (135-145); Triglycerides 88 mg/dL (<150)
[2023-04-25 08:30] VITALS: BMI 23.1
[2023-04-25] MEDS: FLUoxetine HCl 20 MG CAPSULE 60 MG PO (09:17)
[2023-04-25] MEDS: Nicotine 14 MG PATCH.TD24 TRANSDERMA (09:45)
[2023-04-25 10:06] VITALS: BP 147/102; PULSE 88; RESP 17; TEMP 36.8
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
--- NOTE | 2023-04-25 13:35 | MHC.CLN ---
RE: CONSULT FOR WT LOSS CURRENT WT 63KG PREVIOUS WT HX 64KG (10/16/22) PT DOES NOT QUALIFY FOR SIGNIFICANT WT LOSS MONITOR PO INTAKE CLOSELY NO NEW ORDERS
[2023-04-25] MEDS: hydrOXYzine HCL 25 MG TABLET PO (16:48)
[2023-04-25 18:00] VITALS: BP 172/72; PULSE 99; RESP 18; TEMP 37.2; O2SAT 95
--- NOTE | 2023-04-25 18:02 | PC.NURSE ---
Patient became very anxius at dinner time when talking about her past. She was irritated and requested something for anxiety. Atarax given with good effect. Patient now relaxed in the kitchen area.
[2023-04-25] MEDS: clonazePAM 0.5 MG TABLET PO (21:21)
[2023-04-25] MEDS: OLANZapine 10 MG TABLET PO (21:21)
[2023-04-25] MEDS: Acetaminophen 325 MG TABLET 650 MG PO (21:22)
[2023-04-25] MEDS: traZODone HCL 50 MG TABLET PO (21:22)
[2023-04-25] MEDS: cloNIDine HCL 0.2 MG TABLET PO (22:11)
[2023-04-25 22:13] VITALS: BP 166/92
[2023-04-26 01:58] VITALS: BP 124/68; PULSE 82; RESP 16; O2SAT 93
[2023-04-26] MEDS: hydrOXYzine HCL 25 MG TABLET PO ×2 (02:14→19:56)
[2023-04-26 07:55] VITALS: BP 178/98; PULSE 80; RESP 18; TEMP 37; O2SAT 96
[2023-04-26] MEDS: FLUoxetine HCl 20 MG CAPSULE 40 MG PO (08:10)
[2023-04-26] MEDS: Nicotine 14 MG PATCH.TD24 TRANSDERMA (08:21)
[2023-04-26] MEDS: OLANZapine 5 MG TABLET PO ×2 (11:14→15:20)
--- NOTE | 2023-04-26 12:36 | P.PNPSI_ITS ---
Subjective Subjective Date of Service: 04/26/23 Reason For Visit: Mood disorder Subjective Notes: Conditional Voluntary Interim History: The nursing staff reported the patient had been hyperverbal, his blood pressure has been on the 170s but no symptoms. She slept well with the last intervention of medications. On interview remains manic, hyperverbal, with racing thoughts and some dysphoria. We review her list of medications and we continue the taper of Prozac up to 20 mg daily since she does not want more in at this moment she is manic. We discussed options and she requested an increase of Zyprexa. Mental Status Exam Mental Status Exam Patient Appearance: Well Grooomed and Appropriate Patient Orientation: Person and Situation Level of Consciousness: Awake and Appropriate Patient Behavior: Guarded and Passive Mood Description: Cheerful and Elated Affect Description: Labile Ability to Follow Directions: Good Speech Pattern: Clear Hallucinations: None Delusions: Grandiose Thought Process: Racing Judgement: Fair Diagnostics Vital Signs (24Hr): Vital Signs - 24 hr 04/25/23 18:00 04/25/23 22:13 04/26/23 01:58 Temperature 98.9 F Pulse Rate 99 82 Respiratory Rate 18 16 Blood Pressure 172/72 H 166/92 H 124/68 Pulse Oximetry 95 93 Oxygen Delivery Method Room Air Room Air 04/26/23 07:55 Temperature 98.6 F Pulse Rate 80 Respiratory Rate 18 Blood Pressure 178/98 H Pulse Oximetry 96 Oxygen Delivery Method Room Air BMI result Body Mass Index 23.1 Labs 04/24/23 11:46 04/25/23 07:46 Labs: Laboratory Results - last 48 hr 04/24/23 04/25/23 11:46 07:46 Sodium 138 Potassium 4.2 Chloride 108 Carbon Dioxide 21 L Anion Gap 13 BUN 16 Creatinine 0.72 Estim Creat Clear Calc 59.8 Estimated GFR > 60 Fasting Glucose 102 H Calcium 9.6 Total Bilirubin 0.4 AST 20 ALT 13 Alkaline Phosphatase 63 Total Protein 7.0 Albumin 3.7 Triglycerides 88 Cholesterol 248 H LDL Cholesterol, Calc 174 H HDL Cholesterol 57 Urine Opiates Screen Not Detected Urine Fentanyl Screen Not Detected Ur Barbiturates Screen Not Detected Ur Phencyclidine Scrn Not Detected Ur Amphetamines Screen Not Detected U Benzodiazepines Scrn Not Detected Urine Cocaine Screen Not Detected U Marijuana (THC) Screen Not Detected Medications Medications Current Medications Acetaminophen (Acetaminophen 325 Mg Tablet) 650 mg PO Q6H PRN PRN Reason: Headache/Pain Mild Scale (1-3) Last Admin: 04/25/23 21:22 Dose: 650 mg Al Hydroxide/Mg Hydroxide (Magnesium Hydrox/Alum Hydrox 30 Ml Oral.Susp) 30 ml PO Q6H PRN PRN Reason: Heartburn/Nausea Clonazepam (Clonazepam 0.5 Mg Tablet) 0.5 mg PO BEDTIME HAJA Last Admin: 04/25/23 21:21 Dose: 0.5 mg Clonidine HCl (Clonidine Hcl 0.2 Mg Tablet) 0.2 mg PO BID PRN; Protocol PRN Reason: panic attack Last Admin: 04/25/23 22:11 Dose: 0.2 mg Fluoxetine HCl (Fluoxetine Hcl 20 Mg Capsule) 20 mg PO DAILY HAJA Hydroxyzine HCl (Hydroxyzine Hcl 25 Mg Tablet) 25 mg PO Q6H PRN PRN Reason: Anxiety Last Admin: 04/26/23 02:14 Dose: 25 mg Magnesium Hydroxide (Milk Of Magnesia 30 Ml Oral.Susp) 30 ml PO DAILY PRN PRN Reason: Constipation Nicotine (Nicotine 14 Mg Patch.Td24) 14 mg TRANSDERMA DAILY [facility] Last Admin: 04/26/23 08:21 Dose: 14 mg Nicotine Polacrilex (Nicotine Polacrilex 2 Mg Gum) 2 mg BUCCAL Q2H PRN PRN Reason: Nicotine Cravings Olanzapine (Olanzapine 10 Mg Tablet) 10 mg PO BEDTIME [facility] Last Admin: 04/25/23 21:21 Dose: 10 mg Olanzapine (Olanzapine 5 Mg Tablet) 5 mg PO Q4H PRN PRN Reason: racing thoughts Last Admin: 04/26/23 11:14 Dose: 5 mg Trazodone HCl (Trazodone Hcl 50 Mg Tablet) 50 mg PO BEDTIME MRX1 PRN PRN Reason: Insomnia Last Admin: 04/25/23 21:22 Dose: 50 mg Allergies Allergies Allergy/AdvReac Type Severity Reaction Status Date / Time adhesive AdvReac Unknown Verified 10/14/22 04:34 aspirin AdvReac Unknown Verified 10/14/22 04:34 epinephrine AdvReac Unknown Verified 10/14/22 04:34 Assessment & Plan Assessment & Plan (1) Bipolar disorder: Status: Acute Code(s): F31.9 - Bipolar disorder, unspecified Plan The patient is an elderly female who was admitted into this facility several times due to depression but no presents with a mixed episode elicited by manic symptoms and depression with suicidal ideation, unable to contract for safety. Also the patient is poorly compliant with treatment. We discussed at length risks, benefits, side-effects and alternatives and she agreed on the plan below. Plan 1. Gather collateral information. 2. Start Zyprexa 10 mg p.o. q.h.s. to target kaylie. On April 26, we increased up to 15 mg po qhs. 3. Start tapering of Prozac, this moment on 20 mg daily. We will discontinue completely next Saturday 4. Continue Klonopin 0.5 p.o. q.h.s.. 5. P.r.n. Zyprexa 5 mg p.o. b.i.d. p.r.n. racing thoughts. 6. Continue medical workout. 7. Reassessment with results. 8. Continue 15 minute checks Reason for continued inpatient stay Substantial Risk for: inability to function, rapid decompensation and med/psych decompensation Time Spent With Patient Time: Total time managing care of this patient today __20__ minutes.
[2023-04-26 18:00] VITALS: BP 139/89; PULSE 94; RESP 18; TEMP 36.6; O2SAT 99
[2023-04-26] MEDS: traZODone HCL 50 MG TABLET PO (19:56)
[2023-04-26] MEDS: cloNIDine HCL 0.2 MG TABLET PO (19:57)
[2023-04-26] MEDS: OLANZapine 7.5 MG TABLET 15 MG PO (19:57)
[2023-04-26] MEDS: clonazePAM 0.5 MG TABLET PO (19:57)
[2023-04-27 08:46] VITALS: BP 141/67; PULSE 93; RESP 18; TEMP 36.3; O2SAT 95
[2023-04-27] MEDS: FLUoxetine HCl 20 MG CAPSULE PO (08:54)
[2023-04-27] MEDS: Nicotine 14 MG PATCH.TD24 TRANSDERMA (08:54)
[2023-04-27] MEDS: cloNIDine HCL 0.2 MG TABLET PO ×2 (08:57→14:31)
--- NOTE | 2023-04-27 10:07 | P.PNPSI_ITS ---
Subjective Subjective Date of Service: 04/27/23 Reason For Visit: Mood disorder Interim History: The nursing staff reported the patient had been hyperverbal, her blood pressure is slightly elevated. She says I feel hyper. She is noted to be verbose. She says I am having diarrhea of the mouth. She is insightful to feeling hypomanic and pressured. She talks about her therapist, her trauma past, her hospitalization and being taken off medications when she was hospitalized at [place]. She She slept well with the last intervention of medications. Her affect is labile and she cries at times. She is tolerating Zyprexa increase. Review of Systems Review of Systems Yes all other systems are reviewed and are negative Constitutional: Reports no additional constitutional complaints, Denies chills, Denies fever(s) and Denies night sweats Eyes: Reports no additional eye complaints, Denies blurry vision, Denies change in vision, Denies diplopia, Denies eye discharge, Denies loss of vision and Denies eye pain Denies dizziness Cardiovascular: Reports no additional cardiovascular complaints, Denies chest pain, Denies lightheadedness, Denies Loss of Consciousness and Denies dyspnea Respiratory: Reports no additional respiratory complaints and Denies dyspnea Gastrointestinal: Reports no additional gastrointestinal complaints, Denies abdominal pain, Denies melena, Denies hematochezia, Denies change in bowel habits and Denies change in stool character Musculoskeletal: Reports no additional musculoskeletal complaints, Denies numbness and Denies tingling Denies dizziness, Denies loss of vision, Denies numbness and Denies tingling Psychiatric: Reports depression and Reports suicidal ideation (chronically) Endocrine: Reports no additional endocrine complaints Hematologic/Lymphatic: Reports no additional hematologic/lymphatic complaints Allergic/Immunologic: Reports no additional allergic/immunologic complaints Mental Status Exam Mental Status Exam Patient Appearance: Well Grooomed and Appropriate Patient Orientation: Person and Situation Level of Consciousness: Awake and Appropriate Patient Behavior: Guarded and Passive Mood Description: Cheerful and Elated Affect Description: Labile Patient Cognition Impaired: Yes Ability to Follow Directions: Good Speech Pattern: Clear Diagnostics Vital Signs (24Hr): Vital Signs - 24 hr 04/26/23 18:00 04/27/23 08:46 Temperature 97.9 F 97.4 F Pulse Rate 94 93 Respiratory Rate 18 18 Blood Pressure 139/89 141/67 H Pulse Oximetry 99 95 Oxygen Delivery Method Room Air Room Air BMI result Body Mass Index 23.1 Labs 04/24/23 11:46 04/25/23 07:46 Medications Medications Current Medications Acetaminophen (Acetaminophen 325 Mg Tablet) 650 mg PO Q6H PRN PRN Reason: Headache/Pain Mild Scale (1-3) Last Admin: 04/25/23 21:22 Dose: 650 mg Al Hydroxide/Mg Hydroxide (Magnesium Hydrox/Alum Hydrox 30 Ml Oral.Susp) 30 ml PO Q6H PRN PRN Reason: Heartburn/Nausea Clonazepam (Clonazepam 0.5 Mg Tablet) 0.5 mg PO BEDTIME HAJA Last Admin: 04/26/23 19:57 Dose: 0.5 mg Clonidine HCl (Clonidine Hcl 0.2 Mg Tablet) 0.2 mg PO BID PRN; Protocol PRN Reason: panic attack Last Admin: 04/27/23 08:57 Dose: 0.2 mg Fluoxetine HCl (Fluoxetine Hcl 20 Mg Capsule) 20 mg PO DAILY [facility] Last Admin: 04/27/23 08:54 Dose: 20 mg Hydroxyzine HCl (Hydroxyzine Hcl 25 Mg Tablet) 25 mg PO Q6H PRN PRN Reason: Anxiety Last Admin: 04/26/23 19:56 Dose: 25 mg Magnesium Hydroxide (Milk Of Magnesia 30 Ml Oral.Susp) 30 ml PO DAILY PRN PRN Reason: Constipation Nicotine (Nicotine 14 Mg Patch.Td24) 14 mg TRANSDERMA DAILY [facility] Last Admin: 04/27/23 08:54 Dose: 14 mg Nicotine Polacrilex (Nicotine Polacrilex 2 Mg Gum) 2 mg BUCCAL Q2H PRN PRN Reason: Nicotine Cravings Olanzapine (Olanzapine 5 Mg Tablet) 5 mg PO Q4H PRN PRN Reason: racing thoughts Last Admin: 04/26/23 15:20 Dose: 5 mg Olanzapine (Olanzapine 7.5 Mg Tablet) 15 mg PO BEDTIME HAJA Last Admin: 04/26/23 19:57 Dose: 15 mg Trazodone HCl (Trazodone Hcl 50 Mg Tablet) 50 mg PO BEDTIME MRX1 PRN PRN Reason: Insomnia Last Admin: 04/26/23 19:56 Dose: 50 mg Allergies Allergies Allergy/AdvReac Type Severity Reaction Status Date / Time adhesive AdvReac Unknown Verified 10/14/22 04:34 aspirin AdvReac Unknown Verified 10/14/22 04:34 epinephrine AdvReac Unknown Verified 10/14/22 04:34 Assessment & Plan Assessment & Plan (1) Bipolar disorder: Status: Acute Code(s): F31.9 - Bipolar disorder, unspecified Plan The patient is an elderly female who was admitted into this facility several times due to depression but no presents with a mixed episode elicited by manic symptoms and depression with suicidal ideation, unable to contract for safety. Also the patient is poorly compliant with treatment. We discussed at length risks, benefits, side-effects and alternatives and she agreed on the plan below. Plan 1. Gather collateral information. 2. Start Zyprexa 10 mg p.o. q.h.s. to target kaylie. On April 26, we increased up to 15 mg po qhs. 3. Start tapering of Prozac, this moment on 20 mg daily. We will discontinue completely next Saturday 4. Continue Klonopin 0.5 p.o. q.h.s.. 5. P.r.n. Zyprexa 5 mg p.o. b.i.d. p.r.n. racing thoughts. 6. Continue medical workout. 7. Reassessment with results. 8. Continue 15 minute checks 04/27: Continue monitoring response to increase Zyprexa to 15 mg over next day or 2. Reason for continued inpatient stay Substantial Risk for: inability to function and rapid decompensation Time Spent With Patient Time: Total time managing care of this patient today ____ minutes.
[2023-04-27] MEDS: hydrOXYzine HCL 25 MG TABLET PO (13:26)
[2023-04-27 14:25] VITALS: BP 159/87
[2023-04-27] MEDS: guaiFENesin DM 200/20/10 ML 10 ML SYRUP PO (15:53)
[2023-04-27] MEDS: OLANZapine 5 MG TABLET PO (18:07)
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
[2023-04-27 20:13] VITALS: BP 120/71; PULSE 76; RESP 18; TEMP 36.4; O2SAT 94
[2023-04-27] MEDS: Acetaminophen 325 MG TABLET 650 MG PO (20:44)
[2023-04-27] MEDS: OLANZapine 7.5 MG TABLET 15 MG PO (20:45)
[2023-04-27] MEDS: clonazePAM 0.5 MG TABLET PO (20:45)
--- NOTE | 2023-04-28 | ECG_ITS ---
Test Reason : dizziness Blood Pressure : / mmHG Vent. Rate : 067 BPM Atrial Rate : 067 BPM P-R Int : 160 ms QRS Dur : 128 ms QT Int : 464 ms P-R-T Axes : -23 038 018 degrees QTc Int : 490 ms Normal sinus rhythm Left bundle branch block Abnormal ECG When compared with ECG of 24-APR-2023 11:57, Sinus rhythm has replaced Ectopic atrial rhythm Referred By: Jaime Ayala Electronically Signed By:ROSARIO HERR MD
--- NOTE | 2023-04-28 04:48 | PC.NURSE ---
At approximately 0445, patient awake in milieu, sitting at dining room table. Patient dozed off in chair and slipped out of chair onto floor and onto knees. Did not hit head. VSS. Patient assisted to chair. No injuries noted or reported. Appropriate parties notified.
--- NOTE | 2023-04-28 08:13 | HO.PSYCHPN ---
Subjective Subjective Date of Service: 04/28/23 Reason For Visit: Mood disorder Interim History: She was complaining of some dizziness and tiredness and not feeling well. She had taken Clonidine 0.2 mg in AM before our meeting. She said she was anxious. Feels Zyprexa has been helping her slow her thoughts. She however remains verbose and pressured, difficult to interrupt with some racing thoughts. 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 She said she was at [facility] and had hyponatremia and feels like she did then. Cough improved. She slept well with the last intervention of medications. Her affect is labile and she cries at times. She is tolerating Zyprexa increase. Review of Systems Review of Systems Yes all other systems are reviewed and are negative Constitutional: Reports no additional constitutional complaints, Denies chills, Denies fever(s) and Denies night sweats Eyes: Reports no additional eye complaints, Denies blurry vision, Denies change in vision, Denies diplopia, Denies eye discharge, Denies loss of vision and Denies eye pain Denies dizziness Cardiovascular: Reports no additional cardiovascular complaints, Denies chest pain, Denies lightheadedness, Denies Loss of Consciousness and Denies dyspnea Respiratory: Reports no additional respiratory complaints and Denies dyspnea Gastrointestinal: Reports no additional gastrointestinal complaints, Denies abdominal pain, Denies melena, Denies hematochezia, Denies change in bowel habits and Denies change in stool character Musculoskeletal: Reports no additional musculoskeletal complaints, Denies numbness and Denies tingling Denies dizziness, Denies loss of vision, Denies numbness and Denies tingling Psychiatric: Reports depression and Reports suicidal ideation (chronically) Endocrine: Reports no additional endocrine complaints Hematologic/Lymphatic: Reports no additional hematologic/lymphatic complaints Allergic/Immunologic: Reports no additional allergic/immunologic complaints Mental Status Exam Mental Status Exam Patient Appearance: Well Grooomed and Appropriate Patient Orientation: Person and Situation Level of Consciousness: Awake and Appropriate Patient Behavior: Guarded and Passive Mood Description: Cheerful and Elated Affect Description: Labile Patient Cognition Impaired: Yes Ability to Follow Directions: Good Speech Pattern: Clear Diagnostics Vital Signs (24Hr): Vital Signs - 24 hr 04/27/23 08:46 04/27/23 14:25 04/27/23 20:13 Temperature 97.4 F 97.6 F Pulse Rate 93 76 Respiratory Rate 18 18 Blood Pressure 141/67 H 159/87 H 120/71 Pulse Oximetry 95 94 Oxygen Delivery Method Room Air Room Air BMI result Body Mass Index 23.1 Labs 04/24/23 11:46 04/28/23 11:37 Medications Medications Current Medications Acetaminophen (Acetaminophen 325 Mg Tablet) 650 mg PO Q6H PRN PRN Reason: Headache/Pain Mild Scale (1-3) Last Admin: 04/27/23 20:44 Dose: 650 mg Al Hydroxide/Mg Hydroxide (Magnesium Hydrox/Alum Hydrox 30 Ml Oral.Susp) 30 ml PO Q6H PRN PRN Reason: Heartburn/Nausea Clonazepam (Clonazepam 0.5 Mg Tablet) 0.5 mg PO BEDTIME HAJA Last Admin: 04/27/23 20:45 Dose: 0.5 mg Clonidine HCl (Clonidine Hcl 0.2 Mg Tablet) 0.2 mg PO BID PRN; Protocol PRN Reason: panic attack Last Admin: 04/27/23 14:31 Dose: 0.2 mg Fluoxetine HCl (Fluoxetine Hcl 20 Mg Capsule) 20 mg PO DAILY HAJA Last Admin: 04/27/23 08:54 Dose: 20 mg Guaifenesin/Dextromethorphan (Guaifenesin Dm 200/20/10 Ml 10 Ml Syrup) 10 ml PO Q4H PRN PRN Reason: Cough Last Admin: 04/27/23 15:53 Dose: 10 ml Hydroxyzine HCl (Hydroxyzine Hcl 25 Mg Tablet) 25 mg PO Q6H PRN PRN Reason: Anxiety Last Admin: 04/27/23 13:26 Dose: 25 mg Magnesium Hydroxide (Milk Of Magnesia 30 Ml Oral.Susp) 30 ml PO DAILY PRN PRN Reason: Constipation Nicotine (Nicotine 14 Mg Patch.Td24) 14 mg TRANSDERMA DAILY HAJA Last Admin: 04/27/23 08:54 Dose: 14 mg Nicotine Polacrilex (Nicotine Polacrilex 2 Mg Gum) 2 mg BUCCAL Q2H PRN PRN Reason: Nicotine Cravings Olanzapine (Olanzapine 5 Mg Tablet) 5 mg PO Q4H PRN PRN Reason: racing thoughts Last Admin: 04/27/23 18:07 Dose: 5 mg Olanzapine (Olanzapine 7.5 Mg Tablet) 15 mg PO BEDTIME HAJA Last Admin: 04/27/23 20:45 Dose: 15 mg Trazodone HCl (Trazodone Hcl 50 Mg Tablet) 50 mg PO BEDTIME MRX1 PRN PRN Reason: Insomnia Last Admin: 04/26/23 19:56 Dose: 50 mg Allergies Allergies Allergy/AdvReac Type Severity Reaction Status Date / Time adhesive AdvReac Unknown Verified 10/14/22 04:34 aspirin AdvReac Unknown Verified 10/14/22 04:34 epinephrine AdvReac Unknown Verified 10/14/22 04:34 Assessment & Plan Assessment & Plan (1) Bipolar disorder: Status: Acute Code(s): F31.9 - Bipolar disorder, unspecified Plan The patient is an elderly female who was admitted into this facility several times due to depression but no presents with a mixed episode elicited by manic symptoms and depression with suicidal ideation, unable to contract for safety. Also the patient is poorly compliant with treatment. We discussed at length risks, benefits, side-effects and alternatives and she agreed on the plan below. Plan 1. Gather collateral information. 2. Start Zyprexa 10 mg p.o. q.h.s. to target kaylie. On April 26, we increased up to 15 mg po qhs. 3. Start tapering of Prozac, this moment on 20 mg daily. We will discontinue completely next Saturday 4. Continue Klonopin 0.5 p.o. q.h.s.. 5. P.r.n. Zyprexa 5 mg p.o. b.i.d. p.r.n. racing thoughts. 6. Continue medical workout. 7. Reassessment with results. 8. Continue 15 minute checks 04/27: Guaifenesin for cough ordered. Continue monitoring response to increase Zyprexa to 15 mg over next day or 2. 04/28: Checked EKG, checked chemistries, lowered Clonidine to 0.1 mg BID PRN and added Klonopin 0.125 mg TID PRN anxiety. Reason for continued inpatient stay Substantial Risk for: inability to function, rapid decompensation and med/psych decompensation Time Spent With Patient Time: Total time managing care of this patient today ____ minutes.
[2023-04-28 08:14] VITALS: BP 134/63; PULSE 75; RESP 18; TEMP 36.4; O2SAT 94
[2023-04-28] MEDS: guaiFENesin DM 200/20/10 ML 10 ML SYRUP PO (08:19)
[2023-04-28] MEDS: cloNIDine HCL 0.2 MG TABLET PO (08:19)
[2023-04-28] MEDS: FLUoxetine HCl 20 MG CAPSULE PO (08:19)
[2023-04-28] MEDS: Nicotine 14 MG PATCH.TD24 TRANSDERMA (08:19)
[2023-04-28] MEDS: OLANZapine 5 MG TABLET PO (11:22)
[2023-04-28 12:08] LABS: Anion Gap 15 (12-20); Blood Urea Nitrogen 18 mg/dL (9-16); Calcium 9.8 mg/dL (8.4-10.2); Carbon Dioxide 19 mmol/L (22-29); Chloride 109 mmol/L (96-108); Creatinine Clr Calc Pharmacy 51.9; Estimated Glomerular Filt Rate > 60; Glucose Random 126 mg/dL (60-115); Potassium 4.1 mmol/L (3.3-5.1); Sodium 139 mmol/L (135-145)
--- NOTE | 2023-04-28 12:39 | PC.NURSE ---
EKG ordered and nursing traffic supervisor Bailee Anne notified. Bailee stated to this medical underwriter that she would try and get ahold of tech to complete EKG.
[2023-04-28 19:45] VITALS: BP 153/67; PULSE 89; RESP 18; TEMP 36.6; O2SAT 93
[2023-04-28] MEDS: OLANZapine 7.5 MG TABLET 15 MG PO (20:22)
[2023-04-28] MEDS: cloNIDine HCL 0.1 MG TABLET PO (20:23)
[2023-04-28] MEDS: clonazePAM 0.5 MG TABLET PO (20:23)
[2023-04-29 08:00] VITALS: BP 178/91; PULSE 77; RESP 18; TEMP 36.6; O2SAT 92
[2023-04-29 08:15] VITALS: BP 150/74
[2023-04-29] MEDS: Nicotine 14 MG PATCH.TD24 TRANSDERMA (08:36)
[2023-04-29] MEDS: FLUoxetine HCl 20 MG CAPSULE PO (08:41)
[2023-04-29] MEDS: guaiFENesin DM 200/20/10 ML 10 ML SYRUP PO (10:23)
--- NOTE | 2023-04-29 10:53 | PC.NURSE ---
Dr Leonard notified of increased BP 178/91, and re-check of 150/74. No s/s of CV issues reported or noted. No new orders at this time.
--- NOTE | 2023-04-29 11:19 | HO.PSYCHPN ---
Subjective Subjective Date of Service: 04/29/23 Reason For Visit: Mood disorder Subjective Notes: Conditional Voluntary Interim History: The nursing staff reported the patient slept well last night she still anxious and she needed clonidine and Klonopin. She remains grandiose at times with manic symptoms. She used p.r.n. Zyprexa yesterday. On interview the patient remains with fast speech she agreed to lower Prozac to 10 mg p.o. daily. The delinquency prevention social worker spoke with her daughter and the plan is to going back home. Still manic not ready for discharge yet. Mental Status Exam Mental Status Exam Patient Appearance: Well Grooomed and Appropriate Patient Orientation: Person and Situation Level of Consciousness: Awake and Appropriate Patient Behavior: Guarded and Passive Mood Description: Withdrawn Affect Description: Constricted Patient Cognition Impaired: Yes Ability to Follow Directions: Good Speech Pattern: Clear Hallucinations: None Delusions: Grandiose Thought Process: Racing Thought Content: positive for [place] [employer], positive for [place] and positive for Circumstantial Judgement: Fair Diagnostics Vital Signs (24Hr): Vital Signs - 24 hr 04/28/23 19:45 04/29/23 08:00 04/29/23 08:15 Temperature 97.8 F 97.9 F Pulse Rate 89 77 Respiratory Rate 18 18 Blood Pressure 153/67 H 178/91 H 150/74 H Pulse Oximetry 93 92 Oxygen Delivery Method Room Air Room Air BMI result Body Mass Index 23.1 Labs 04/24/23 11:46 04/28/23 11:37 Labs: Laboratory Results - last 48 hr 04/28/23 11:37 Sodium 139 Potassium 4.1 Chloride 109 H Carbon Dioxide 19 L Anion Gap 15 BUN 18 H Creatinine 0.83 Estim Creat Clear Calc 51.9 Estimated GFR > 60 Random Glucose 126 H Calcium 9.8 Medications Medications Current Medications Acetaminophen (Acetaminophen 325 Mg Tablet) 650 mg PO Q6H PRN PRN Reason: Headache/Pain Mild Scale (1-3) Last Admin: 04/27/23 20:44 Dose: 650 mg Al Hydroxide/Mg Hydroxide (Magnesium Hydrox/Alum Hydrox 30 Ml Oral.Susp) 30 ml PO Q6H PRN PRN Reason: Heartburn/Nausea Clonazepam (Clonazepam 0.5 Mg Tablet) 0.5 mg PO BEDTIME HAJA Last Admin: 04/28/23 20:23 Dose: 0.5 mg Clonazepam (Clonazepam 0.125 Mg Tab.Rapdis) 0.125 mg PO TID PRN PRN Reason: anxiety/restlessness Last Admin: 04/29/23 04:37 Dose: 0.125 mg Clonidine HCl (Clonidine Hcl 0.1 Mg Tablet) 0.1 mg PO BID PRN; Protocol PRN Reason: panic attack Last Admin: 04/28/23 20:23 Dose: 0.1 mg Fluoxetine HCl (Fluoxetine Hcl 10 Mg Capsule) 10 mg PO DAILY [facility] Last Admin: 04/29/23 10:03 Dose: Not Given Guaifenesin/Dextromethorphan (Guaifenesin Dm 200/20/10 Ml 10 Ml Syrup) 10 ml PO Q4H PRN PRN Reason: Cough Last Admin: 04/29/23 10:23 Dose: 10 ml Magnesium Hydroxide (Milk Of Magnesia 30 Ml Oral.Susp) 30 ml PO DAILY PRN PRN Reason: Constipation Nicotine (Nicotine 14 Mg Patch.Td24) 14 mg TRANSDERMA DAILY [facility] Last Admin: 04/29/23 08:36 Dose: 14 mg Nicotine Polacrilex (Nicotine Polacrilex 2 Mg Gum) 2 mg BUCCAL Q2H PRN PRN Reason: Nicotine Cravings Olanzapine (Olanzapine 5 Mg Tablet) 5 mg PO Q4H PRN PRN Reason: racing thoughts Last Admin: 04/28/23 11:22 Dose: 5 mg Olanzapine (Olanzapine 7.5 Mg Tablet) 15 mg PO BEDTIME HAJA Last Admin: 04/28/23 20:22 Dose: 15 mg Trazodone HCl (Trazodone Hcl 50 Mg Tablet) 50 mg PO BEDTIME MRX1 PRN PRN Reason: Insomnia Last Admin: 04/26/23 19:56 Dose: 50 mg Allergies Allergies Allergy/AdvReac Type Severity Reaction Status Date / Time adhesive AdvReac Unknown Verified 10/14/22 04:34 aspirin AdvReac Unknown Verified 10/14/22 04:34 epinephrine AdvReac Unknown Verified 10/14/22 04:34 Assessment & Plan Assessment & Plan (1) Bipolar disorder: Status: Acute Code(s): F31.9 - Bipolar disorder, unspecified Plan The patient is an elderly female who was admitted into this facility several times due to depression but no presents with a mixed episode elicited by manic symptoms and depression with suicidal ideation, unable to contract for safety. Also the patient is poorly compliant with treatment. We discussed at length risks, benefits, side-effects and alternatives and she agreed on the plan below. Plan 1. Gather collateral information. 2. Start Zyprexa 10 mg p.o. q.h.s. to target kaylie. On April 26, we increased up to 15 mg po qhs. 3. Start tapering of Prozac, this moment on 20 mg daily. We will discontinue completely next Saturday 4. Continue Klonopin 0.5 p.o. q.h.s.. 5. P.r.n. Zyprexa 5 mg p.o. b.i.d. p.r.n. racing thoughts. 6. Continue medical workout. 7. Reassessment with results. 8. Continue 15 minute checks Reason for continued inpatient stay Substantial Risk for: inability to function, rapid decompensation and med/psych decompensation Time Spent With Patient Time: Total time managing care of this patient today __20__ minutes.
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
[2023-04-29 14:50] VITALS: BP 158/86; PULSE 95
[2023-04-29] MEDS: cloNIDine HCL 0.1 MG TABLET PO (14:58)
--- NOTE | 2023-04-29 17:11 | PC.NURSE ---
Pt seen by Jennifer PAZ. New order for compression stockings and leg elevation when laying in bed for slight luan foot edema. Denies pain or tenderness. No redness. No SOB or respiratory distress noted or reported. Will continue to monitor.
--- NOTE | 2023-04-29 17:28 | PC.NURSE ---
PRN Clonidine for anxiety at 15:00 per pt's request. BP 158/86, P 95. Medication was effective per pt report. BP re-check 144/85. Pt in the common area socializing with peers. Appears comfortable. Denies pain or discomfort. Will continue to monitor.
[2023-04-29 19:35] VITALS: BP 137/82; PULSE 90; RESP 17; TEMP 36.4; O2SAT 93
[2023-04-29] MEDS: OLANZapine 7.5 MG TABLET 15 MG PO (20:19)
[2023-04-29] MEDS: clonazePAM 0.5 MG TABLET PO (20:20)
[2023-04-30 07:50] VITALS: BP 174/82; PULSE 94; RESP 18; TEMP 36.8; O2SAT 97
[2023-04-30] MEDS: FLUoxetine HCl 10 MG CAPSULE PO (08:28)
[2023-04-30] MEDS: Nicotine 14 MG PATCH.TD24 TRANSDERMA (08:28)
--- NOTE | 2023-04-30 11:33 | HO.PSYCHPN ---
Subjective Subjective Date of Service: 04/30/23 Reason For Visit: Mood disorder Subjective Notes: Conditional Voluntary Interim History: The nursing staff reported the patient had been pleasant and cooperative but hyperverbal. She has attended to groups but she still manic. On interview the patient reports that she had a very bad night still with racing thoughts and she requested increase Zyprexa to 20 mg p.o. q.h.s.. Today we are discontinuing Prozac, we started the slow taper. Mental Status Exam Mental Status Exam Patient Appearance: Well Grooomed Patient Orientation: Person and Situation Level of Consciousness: Awake and Appropriate Patient Behavior: Restless Mood Description: Elated Affect Description: Labile Patient Cognition Impaired: Yes Ability to Follow Directions: Good Speech Pattern: Rapid Hallucinations: None Delusions: Grandiose Thought Process: Racing and Distracted Thought Content: positive for [place] and positive for Circumstantial Judgement: Fair Diagnostics Vital Signs (24Hr): Vital Signs - 24 hr 04/29/23 14:50 04/29/23 19:35 04/30/23 07:50 Temperature 97.6 F 98.2 F Pulse Rate 95 90 94 Respiratory Rate 17 18 Blood Pressure 158/86 H 137/82 174/82 H Pulse Oximetry 93 97 Oxygen Delivery Method Room Air Room Air BMI result Body Mass Index 23.1 Labs 04/24/23 11:46 04/28/23 11:37 Labs: Laboratory Results - last 48 hr 04/28/23 11:37 Sodium 139 Potassium 4.1 Chloride 109 H Carbon Dioxide 19 L Anion Gap 15 BUN 18 H Creatinine 0.83 Estim Creat Clear Calc 51.9 Estimated GFR > 60 Random Glucose 126 H Calcium 9.8 Medications Medications Current Medications Acetaminophen (Acetaminophen 325 Mg Tablet) 650 mg PO Q6H PRN PRN Reason: Headache/Pain Mild Scale (1-3) Last Admin: 04/27/23 20:44 Dose: 650 mg Al Hydroxide/Mg Hydroxide (Magnesium Hydrox/Alum Hydrox 30 Ml Oral.Susp) 30 ml PO Q6H PRN PRN Reason: Heartburn/Nausea Clonazepam (Clonazepam 0.5 Mg Tablet) 0.5 mg PO BEDTIME HAJA Last Admin: 04/29/23 20:20 Dose: 0.5 mg Clonazepam (Clonazepam 0.125 Mg Tab.Rapdis) 0.125 mg PO TID PRN PRN Reason: anxiety/restlessness Last Admin: 04/30/23 10:07 Dose: 0.125 mg Clonidine HCl (Clonidine Hcl 0.1 Mg Tablet) 0.1 mg PO BID PRN; Protocol PRN Reason: panic attack Last Admin: 04/29/23 14:58 Dose: 0.1 mg Guaifenesin/Dextromethorphan (Guaifenesin Dm 200/20/10 Ml 10 Ml Syrup) 10 ml PO Q4H PRN PRN Reason: Cough Last Admin: 04/29/23 10:23 Dose: 10 ml Magnesium Hydroxide (Milk Of Magnesia 30 Ml Oral.Susp) 30 ml PO DAILY PRN PRN Reason: Constipation Nicotine (Nicotine 14 Mg Patch.Td24) 14 mg TRANSDERMA DAILY HAJA Last Admin: 04/30/23 08:28 Dose: 14 mg Nicotine Polacrilex (Nicotine Polacrilex 2 Mg Gum) 2 mg BUCCAL Q2H PRN PRN Reason: Nicotine Cravings Olanzapine (Olanzapine 5 Mg Tablet) 5 mg PO Q4H PRN PRN Reason: racing thoughts Last Admin: 04/28/23 11:22 Dose: 5 mg Trazodone HCl (Trazodone Hcl 50 Mg Tablet) 50 mg PO BEDTIME MRX1 PRN PRN Reason: Insomnia Last Admin: 04/26/23 19:56 Dose: 50 mg Allergies Allergies Allergy/AdvReac Type Severity Reaction Status Date / Time adhesive AdvReac Unknown Verified 10/14/22 04:34 aspirin AdvReac Unknown Verified 10/14/22 04:34 epinephrine AdvReac Unknown Verified 10/14/22 04:34 Assessment & Plan Assessment & Plan (1) Bipolar disorder: Status: Acute Code(s): F31.9 - Bipolar disorder, unspecified Plan The patient is an elderly female who was admitted into this facility several times due to depression but no presents with a mixed episode elicited by manic symptoms and depression with suicidal ideation, unable to contract for safety. Also the patient is poorly compliant with treatment. We discussed at length risks, benefits, side-effects and alternatives and she agreed on the plan below. Plan 1. Gather collateral information. 2. Start Zyprexa 10 mg p.o. q.h.s. to target kaylie. On April 26, we increased up to 15 mg po qhs. On April 30 we are increasing up to 20 mg p.o. q.h.s. since she remains manic 3. Start tapering of Prozac, this moment on 20 mg daily. We discontinue Prozac after slow taper April 30. 4. Continue Klonopin 0.5 p.o. q.h.s.. 5. P.r.n. Zyprexa 5 mg p.o. b.i.d. p.r.n. racing thoughts. 6. Continue medical workout. 7. Reassessment with results. 8. Continue 15 minute checks Reason for continued inpatient stay Substantial Risk for: inability to function, rapid decompensation and med/psych decompensation Time Spent With Patient Time: Total time managing care of this patient today __20__ minutes.
[2023-04-30] MEDS: OLANZapine 5 MG TABLET PO (13:06)
[2023-04-30] MEDS: OLANZapine 10 MG TABLET 20 MG PO (19:55)
[2023-04-30] MEDS: clonazePAM 0.5 MG TABLET PO (19:55)
[2023-04-30 20:00] VITALS: BP 186/107; PULSE 118; RESP 18; TEMP 36.7; O2SAT 93
[2023-04-30] MEDS: cloNIDine HCL 0.1 MG TABLET PO (21:05)
[2023-04-30 21:07] VITALS: BP 181/95; PULSE 116
[2023-04-30 22:30] VITALS: BP 134/60; PULSE 97
[2023-05-01] MEDS: OLANZapine 5 MG TABLET PO ×2 (01:51→18:37)
[2023-05-01 06:00] VITALS: BP 120/66; PULSE 101; RESP 18; TEMP 36.8; O2SAT 95
[2023-05-01] MEDS: Nicotine 14 MG PATCH.TD24 TRANSDERMA (09:06)
[2023-05-01 15:40] VITALS: BP 181/77; PULSE 98
[2023-05-01] MEDS: cloNIDine HCL 0.1 MG TABLET PO (15:46)
--- NOTE | 2023-05-01 15:52 | HO.PSYCHPN ---
Subjective Subjective Date of Service: 05/01/23 Reason For Visit: Mood disorder Subjective Notes: Conditional Voluntary Interim History: Patient seen in psychiatric hospitalization chart reviewed case reviewed in treatment planning Patient in elevated mood state with racing thoughts some yarsanism preoccupations Prozac discontinued Medication Compliance: Yes Attending Groups: Yes Mental Status Exam Mental Status Exam Patient Appearance: Well Grooomed Patient Orientation: Person and Situation Level of Consciousness: Awake and Appropriate Patient Behavior: Talkative, Restless and Impulsive Mood Description: Elated Affect Description: Labile Patient Cognition Impaired: Yes Ability to Follow Directions: Good Speech Pattern: Rapid Hallucinations: None Delusions: Grandiose Thought Process: Racing and Distracted Thought Content: positive for [place] and positive for Circumstantial Judgement: Fair Diagnostics Vital Signs (24Hr): Vital Signs - 24 hr 04/30/23 20:00 04/30/23 21:07 04/30/23 22:30 Temperature 98.0 F Pulse Rate 118 H 116 H 97 Respiratory Rate 18 Blood Pressure 186/107 H 181/95 H 134/60 Pulse Oximetry 93 Oxygen Delivery Method Room Air 05/01/23 06:00 05/01/23 15:40 Temperature 98.2 F Pulse Rate 101 H 98 Respiratory Rate 18 Blood Pressure 120/66 181/77 H Pulse Oximetry 95 Oxygen Delivery Method Room Air BMI result Body Mass Index 23.1 Labs 04/24/23 11:46 04/28/23 11:37 Medications Medications Current Medications Acetaminophen (Acetaminophen 325 Mg Tablet) 650 mg PO Q6H PRN PRN Reason: Headache/Pain Mild Scale (1-3) Last Admin: 04/27/23 20:44 Dose: 650 mg Al Hydroxide/Mg Hydroxide (Magnesium Hydrox/Alum Hydrox 30 Ml Oral.Susp) 30 ml PO Q6H PRN PRN Reason: Heartburn/Nausea Clonazepam (Clonazepam 0.5 Mg Tablet) 0.5 mg PO BEDTIME HAJA Last Admin: 04/30/23 19:55 Dose: 0.5 mg Clonazepam (Clonazepam 0.125 Mg Tab.Rapdis) 0.125 mg PO TID PRN PRN Reason: anxiety/restlessness Last Admin: 05/01/23 15:46 Dose: 0.125 mg Clonidine HCl (Clonidine Hcl 0.1 Mg Tablet) 0.1 mg PO BID PRN; Protocol PRN Reason: panic attack Last Admin: 05/01/23 15:46 Dose: 0.1 mg Guaifenesin/Dextromethorphan (Guaifenesin Dm 200/20/10 Ml 10 Ml Syrup) 10 ml PO Q4H PRN PRN Reason: Cough Last Admin: 04/29/23 10:23 Dose: 10 ml Magnesium Hydroxide (Milk Of Magnesia 30 Ml Oral.Susp) 30 ml PO DAILY PRN PRN Reason: Constipation Nicotine (Nicotine 14 Mg Patch.Td24) 14 mg TRANSDERMA DAILY [facility] Last Admin: 05/01/23 09:06 Dose: 14 mg Nicotine Polacrilex (Nicotine Polacrilex 2 Mg Gum) 2 mg BUCCAL Q2H PRN PRN Reason: Nicotine Cravings Olanzapine (Olanzapine 5 Mg Tablet) 5 mg PO Q4H PRN PRN Reason: racing thoughts Last Admin: 05/01/23 01:51 Dose: 5 mg Olanzapine (Olanzapine 10 Mg Tablet) 20 mg PO BEDTIME HAJA Last Admin: 04/30/23 19:55 Dose: 20 mg Trazodone HCl (Trazodone Hcl 50 Mg Tablet) 50 mg PO BEDTIME MRX1 PRN PRN Reason: Insomnia Last Admin: 04/26/23 19:56 Dose: 50 mg Allergies Allergies Allergy/AdvReac Type Severity Reaction Status Date / Time adhesive AdvReac Unknown Verified 10/14/22 04:34 aspirin AdvReac Unknown Verified 10/14/22 04:34 epinephrine AdvReac Unknown Verified 10/14/22 04:34 Assessment & Plan Assessment & Plan (1) Bipolar disorder: Status: Acute Code(s): F31.9 - Bipolar disorder, unspecified Plan The patient is an elderly female who was admitted into this facility several times due to depression but no presents with a mixed episode elicited by manic symptoms and depression with suicidal ideation, unable to contract for safety. Also the patient is poorly compliant with treatment. We discussed at length risks, benefits, side-effects and alternatives and she agreed on the plan below. Plan 1. Gather collateral information. 2. Start Zyprexa 10 mg p.o. q.h.s. to target kaylie. On April 26, we increased up to 15 mg po qhs. On April 30 we are increasing up to 20 mg p.o. q.h.s. since she remains manic 3. Start tapering of Prozac, this moment on 20 mg daily. We discontinue Prozac after slow taper April 30. 4. Continue Klonopin 0.5 p.o. q.h.s.. 5. P.r.n. Zyprexa 5 mg p.o. b.i.d. p.r.n. racing thoughts. 6. Continue medical workout. 7. Reassessment with results. 8. Continue 15 minute checks 05/01/2023 Patient remains manic continue olanzapine Prozac discontinued Patient educated on: diagnosis and medication risk/benefits Informed Consent: further education needed Reason for continued inpatient stay Substantial Risk for: inability to function and rapid decompensation Time Spent With Patient Time: Total time managing care of this patient today ____ minutes.
[2023-05-01 18:00] VITALS: BP 124/64; PULSE 96; RESP 18; TEMP 36.6; O2SAT 95
[2023-05-01] MEDS: clonazePAM 0.5 MG TABLET PO (20:42)
[2023-05-01] MEDS: OLANZapine 10 MG TABLET 20 MG PO (20:42)
[2023-05-02 07:00] VITALS: BMI 23.2
[2023-05-02 07:58] VITALS: BP 133/85; PULSE 104; RESP 18; TEMP 36.8; O2SAT 98
[2023-05-02] MEDS: Nicotine 14 MG PATCH.TD24 TRANSDERMA (08:00)
[2023-05-02] MEDS: lamoTRIgine 25 MG TABLET PO ×2 (10:11→21:13)
[2023-05-02] MEDS: OLANZapine 5 MG TABLET PO (10:14)
--- NOTE | 2023-05-02 16:00 | P.PNPSI_ITS ---
Subjective Subjective Date of Service: 05/02/23 Reason For Visit: Mood disorder Subjective Notes: Conditional Voluntary and 3 Day Interim History: The nursing staff reported the patient signed a 3 day notice. She had been visible in the unit, attending to groups but hyperverbal. She slept 5 hours. The occupational therapist reported that in groups she can be even disruptive due to his hyperverbal. On interview the patient denies depression she is slightly hypomanic but less restless than before. She agreed to increased mood stabilizers with Lamictal. She wants to be discharged as soon as possible Mental Status Exam Mental Status Exam Patient Appearance: Well Grooomed and Appropriate Patient Orientation: Person and Situation Level of Consciousness: Awake and Appropriate Patient Behavior: Appropriate Mood Description: Elated Affect Description: Constricted Patient Cognition Impaired: Yes Ability to Follow Directions: Good Speech Pattern: Rapid Hallucinations: None Delusions: Grandiose Thought Process: Racing, Distracted and Evasive Thought Content: positive for [place] and positive for Circumstantial Judgement: Fair Diagnostics Vital Signs (24Hr): Vital Signs - 24 hr 05/01/23 18:00 05/02/23 07:58 Temperature 97.9 F 98.3 F Pulse Rate 96 104 H Respiratory Rate 18 18 Blood Pressure 124/64 133/85 Pulse Oximetry 95 98 Oxygen Delivery Method Room Air Room Air BMI result Body Mass Index 23.2 Labs 04/24/23 11:46 04/28/23 11:37 Medications Medications Current Medications Acetaminophen (Acetaminophen 325 Mg Tablet) 650 mg PO Q6H PRN PRN Reason: Headache/Pain Mild Scale (1-3) Last Admin: 04/27/23 20:44 Dose: 650 mg Al Hydroxide/Mg Hydroxide (Magnesium Hydrox/Alum Hydrox 30 Ml Oral.Susp) 30 ml PO Q6H PRN PRN Reason: Heartburn/Nausea Clonazepam (Clonazepam 0.5 Mg Tablet) 0.5 mg PO BEDTIME HAJA Last Admin: 05/01/23 20:42 Dose: 0.5 mg Clonazepam (Clonazepam 0.125 Mg Tab.Rapdis) 0.125 mg PO TID PRN PRN Reason: anxiety/restlessness Last Admin: 05/02/23 14:41 Dose: 0.125 mg Clonidine HCl (Clonidine Hcl 0.1 Mg Tablet) 0.1 mg PO BID PRN; Protocol PRN Reason: panic attack Last Admin: 05/01/23 15:46 Dose: 0.1 mg Guaifenesin/Dextromethorphan (Guaifenesin Dm 200/20/10 Ml 10 Ml Syrup) 10 ml PO Q4H PRN PRN Reason: Cough Last Admin: 04/29/23 10:23 Dose: 10 ml Lamotrigine (Lamotrigine 25 Mg Tablet) 25 mg PO BID [facility] Last Admin: 05/02/23 10:11 Dose: 25 mg Magnesium Hydroxide (Milk Of Magnesia 30 Ml Oral.Susp) 30 ml PO DAILY PRN PRN Reason: Constipation Nicotine (Nicotine 14 Mg Patch.Td24) 14 mg TRANSDERMA DAILY [facility] Last Admin: 05/02/23 08:00 Dose: 14 mg Nicotine Polacrilex (Nicotine Polacrilex 2 Mg Gum) 2 mg BUCCAL Q2H PRN PRN Reason: Nicotine Cravings Olanzapine (Olanzapine 5 Mg Tablet) 5 mg PO Q4H PRN PRN Reason: racing thoughts Last Admin: 05/02/23 10:14 Dose: 5 mg Olanzapine (Olanzapine 10 Mg Tablet) 20 mg PO BEDTIME [facility] Last Admin: 05/01/23 20:42 Dose: 20 mg Trazodone HCl (Trazodone Hcl 50 Mg Tablet) 50 mg PO BEDTIME MRX1 PRN PRN Reason: Insomnia Last Admin: 04/26/23 19:56 Dose: 50 mg Allergies Allergies Allergy/AdvReac Type Severity Reaction Status Date / Time adhesive AdvReac Unknown Verified 10/14/22 04:34 aspirin AdvReac Unknown Verified 10/14/22 04:34 epinephrine AdvReac Unknown Verified 10/14/22 04:34 Assessment & Plan Assessment & Plan (1) Bipolar disorder: Status: Acute Code(s): F31.9 - Bipolar disorder, unspecified Plan The patient is an elderly female who was admitted into this facility several times due to depression but no presents with a mixed episode elicited by manic symptoms and depression with suicidal ideation, unable to contract for safety. Also the patient is poorly compliant with treatment. We discussed at length risks, benefits, side-effects and alternatives and she agreed on the plan below. Plan 1. Gather collateral information. 2. Start Zyprexa 10 mg p.o. q.h.s. to target kaylie. On April 26, we increased up to 15 mg po qhs. On April 30 we are increasing up to 20 mg p.o. q.h.s. since she remains manic 3. Start tapering of Prozac, this moment on 20 mg daily. We discontinue Prozac after slow taper April 30. 4. Continue Klonopin 0.5 p.o. q.h.s.. 5. P.r.n. Zyprexa 5 mg p.o. b.i.d. p.r.n. racing thoughts. 6. Continue medical workout. 7. Reassessment with results. 8. Continue 15 minute checks 9. Start Lamictal 25 p.o. b.i.d. on May 02 Reason for continued inpatient stay Substantial Risk for: inability to function, rapid decompensation and med/psych decompensation Time Spent With Patient Time: Total time managing care of this patient today __20__ minutes.
[2023-05-02 18:00] VITALS: BP 130/86; PULSE 101; RESP 18; TEMP 37.1; O2SAT 93
[2023-05-02] MEDS: OLANZapine 10 MG TABLET 20 MG PO (21:13)
[2023-05-02] MEDS: clonazePAM 0.5 MG TABLET PO (21:14)
[2023-05-03] MEDS: traZODone HCL 50 MG TABLET PO (02:06)
[2023-05-03 08:00] VITALS: BP 127/72; PULSE 96; RESP 18; TEMP 36.4; O2SAT 96
[2023-05-03] MEDS: lamoTRIgine 25 MG TABLET PO ×2 (08:14→21:06)
[2023-05-03] MEDS: Nicotine 14 MG PATCH.TD24 TRANSDERMA (08:14)
--- NOTE | 2023-05-03 11:56 | P.PNPSI_ITS ---
Subjective Subjective Date of Service: 05/03/23 Reason For Visit: Mood disorder Subjective Notes: Conditional Voluntary and 3 Day Interim History: The nursing staff reported the patient has been pleasant, cooperative compliant with her medications. Last night she slept only 3 hours even though that she took trazodone and she had been seeing still manic. On interview I explained her that her 3 day notice next Saturday and still she is not sleeping well. We decided to increase Klonopin up to 1 mg p.o. q.h.s. and start melatonin 6 mg p.o. She agreed to stay until Saturday. Mental Status Exam Mental Status Exam Patient Appearance: Appropriate Patient Orientation: Person, Place and Situation Level of Consciousness: Restless Patient Behavior: Guarded Mood Description: Calm and Anxious Affect Description: Elated Patient Cognition Impaired: Yes Ability to Follow Directions: Good Speech Pattern: Clear Hallucinations: None Delusions: Grandiose Thought Process: Racing Thought Content: positive for [place] and positive for Circumstantial Judgement: Poor Diagnostics Vital Signs (24Hr): Vital Signs - 24 hr 05/02/23 18:00 05/03/23 08:00 Temperature 98.8 F 97.5 F Pulse Rate 101 H 96 Respiratory Rate 18 18 Blood Pressure 130/86 127/72 Pulse Oximetry 93 96 Oxygen Delivery Method Room Air Room Air BMI result Body Mass Index 23.2 Labs 04/24/23 11:46 04/28/23 11:37 Medications Medications Current Medications Acetaminophen (Acetaminophen 325 Mg Tablet) 650 mg PO Q6H PRN PRN Reason: Headache/Pain Mild Scale (1-3) Last Admin: 04/27/23 20:44 Dose: 650 mg Al Hydroxide/Mg Hydroxide (Magnesium Hydrox/Alum Hydrox 30 Ml Oral.Susp) 30 ml PO Q6H PRN PRN Reason: Heartburn/Nausea Clonazepam (Clonazepam 0.125 Mg Tab.Rapdis) 0.125 mg PO TID PRN PRN Reason: anxiety/restlessness Last Admin: 05/02/23 14:41 Dose: 0.125 mg Clonazepam (Clonazepam 1 Mg Tablet) 1 mg PO BEDTIME HAJA Clonidine HCl (Clonidine Hcl 0.1 Mg Tablet) 0.1 mg PO BID PRN; Protocol PRN Reason: panic attack Last Admin: 05/01/23 15:46 Dose: 0.1 mg Guaifenesin/Dextromethorphan (Guaifenesin Dm 200/20/10 Ml 10 Ml Syrup) 10 ml PO Q4H PRN PRN Reason: Cough Last Admin: 04/29/23 10:23 Dose: 10 ml Lamotrigine (Lamotrigine 25 Mg Tablet) 25 mg PO BID [facility] Last Admin: 05/03/23 08:14 Dose: 25 mg Magnesium Hydroxide (Milk Of Magnesia 30 Ml Oral.Susp) 30 ml PO DAILY PRN PRN Reason: Constipation Melatonin (Melatonin 3 Mg Tablet) 6 mg PO BEDTIME HAJA Nicotine (Nicotine 14 Mg Patch.Td24) 14 mg TRANSDERMA DAILY [facility] Last Admin: 05/03/23 08:14 Dose: 14 mg Nicotine Polacrilex (Nicotine Polacrilex 2 Mg Gum) 2 mg BUCCAL Q2H PRN PRN Reason: Nicotine Cravings Olanzapine (Olanzapine 5 Mg Tablet) 5 mg PO Q4H PRN PRN Reason: racing thoughts Last Admin: 05/02/23 10:14 Dose: 5 mg Olanzapine (Olanzapine 10 Mg Tablet) 20 mg PO BEDTIME [facility] Last Admin: 05/02/23 21:13 Dose: 20 mg Trazodone HCl (Trazodone Hcl 50 Mg Tablet) 50 mg PO BEDTIME MRX1 PRN PRN Reason: Insomnia Last Admin: 05/03/23 02:06 Dose: 50 mg Allergies Allergies Allergy/AdvReac Type Severity Reaction Status Date / Time adhesive AdvReac Unknown Verified 10/14/22 04:34 aspirin AdvReac Unknown Verified 10/14/22 04:34 epinephrine AdvReac Unknown Verified 10/14/22 04:34 Assessment & Plan Assessment & Plan (1) Bipolar disorder: Status: Acute Code(s): F31.9 - Bipolar disorder, unspecified Plan The patient is an elderly female who was admitted into this facility several times due to depression but no presents with a mixed episode elicited by manic symptoms and depression with suicidal ideation, unable to contract for safety. Also the patient is poorly compliant with treatment. We discussed at length risks, benefits, side-effects and alternatives and she agreed on the plan below. Plan 1. Gather collateral information. 2. Start Zyprexa 10 mg p.o. q.h.s. to target kaylie. On April 26, we increased up to 15 mg po qhs. On April 30 we are increasing up to 20 mg p.o. q.h.s. since she remains manic 3. Start tapering of Prozac, this moment on 20 mg daily. We discontinue Prozac after slow taper April 30. 4. Continue Klonopin 0.5 p.o. q.h.s.. 5. P.r.n. Zyprexa 5 mg p.o. b.i.d. p.r.n. racing thoughts. 6. Continue medical workout. 7. Reassessment with results. 8. Continue 15 minute checks 9. Start Lamictal 25 p.o. b.i.d. on May 02. 10. Increase Klonopin to 1 mg p.o. q.h.s. on May 03. 11. And start melatonin 6 mg p.o. q.h.s. in over 27 point. 12. Most likely discharge for next Saturday Reason for continued inpatient stay Substantial Risk for: inability to function, rapid decompensation and med/psych decompensation Time Spent With Patient Time: Total time managing care of this patient today __20__ minutes.
[2023-05-03 19:00] VITALS: BP 159/80; PULSE 103; RESP 20; TEMP 36.6; O2SAT 96
[2023-05-03 21:00] VITALS: BP 102/63; PULSE 84; RESP 16
[2023-05-03] MEDS: OLANZapine 10 MG TABLET 20 MG PO (21:07)
[2023-05-03] MEDS: cloNIDine HCL 0.1 MG TABLET PO (21:07)
[2023-05-03] MEDS: clonazePAM 1 MG TABLET PO (21:08)
[2023-05-03] MEDS: Melatonin 3 MG TABLET 6 MG PO (21:08)
[2023-05-04 07:55] VITALS: BP 122/72; PULSE 91; RESP 18; TEMP 36.8; O2SAT 92
[2023-05-04] MEDS: Nicotine 14 MG PATCH.TD24 TRANSDERMA (08:17)
[2023-05-04] MEDS: lamoTRIgine 25 MG TABLET PO ×2 (08:18→21:35)
--- NOTE | 2023-05-04 11:52 | P.PNPSI_ITS ---
Subjective Subjective Date of Service: 05/04/23 Reason For Visit: Mood disorder Subjective Notes: Conditional Voluntary and 3 Day Interim History: Patient was seen and discussed in rounds today. Records and plans were reviewed. She continues to be hyper talkative at times. She has a 3 day notice and. Eating and sleeping better. No complaints. No changes were made Review of Systems Review of Systems Yes all other systems are reviewed and are negative Mental Status Exam Mental Status Exam Patient Appearance: Appropriate Patient Orientation: Person, Place and Situation Level of Consciousness: Restless Patient Behavior: Guarded Mood Description: Calm and Anxious Affect Description: Elated Patient Cognition Impaired: Yes Ability to Follow Directions: Good Speech Pattern: Clear Hallucinations: None Delusions: Grandiose Thought Process: Racing Thought Content: positive for [place] and positive for Circumstantial Judgement: Poor Diagnostics Vital Signs (24Hr): Vital Signs - 24 hr 05/03/23 19:00 05/03/23 21:00 05/04/23 07:55 Temperature 97.9 F 98.2 F Pulse Rate 103 H 84 91 Respiratory Rate 20 16 18 Blood Pressure 159/80 H 102/63 122/72 Pulse Oximetry 96 92 Oxygen Delivery Method Room Air Room Air BMI result Body Mass Index 23.2 Labs 04/24/23 11:46 04/28/23 11:37 Medications Medications Current Medications Acetaminophen (Acetaminophen 325 Mg Tablet) 650 mg PO Q6H PRN PRN Reason: Headache/Pain Mild Scale (1-3) Last Admin: 04/27/23 20:44 Dose: 650 mg Al Hydroxide/Mg Hydroxide (Magnesium Hydrox/Alum Hydrox 30 Ml Oral.Susp) 30 ml PO Q6H PRN PRN Reason: Heartburn/Nausea Clonazepam (Clonazepam 0.125 Mg Tab.Rapdis) 0.125 mg PO TID PRN PRN Reason: anxiety/restlessness Last Admin: 05/03/23 12:51 Dose: 0.125 mg Clonazepam (Clonazepam 1 Mg Tablet) 1 mg PO BEDTIME HAJA Last Admin: 05/03/23 21:08 Dose: 1 mg Clonidine HCl (Clonidine Hcl 0.1 Mg Tablet) 0.1 mg PO BID PRN; Protocol PRN Reason: panic attack Last Admin: 05/03/23 21:07 Dose: 0.1 mg Guaifenesin/Dextromethorphan (Guaifenesin Dm 200/20/10 Ml 10 Ml Syrup) 10 ml PO Q4H PRN PRN Reason: Cough Last Admin: 04/29/23 10:23 Dose: 10 ml Lamotrigine (Lamotrigine 25 Mg Tablet) 25 mg PO BID [facility] Last Admin: 05/04/23 08:18 Dose: 25 mg Magnesium Hydroxide (Milk Of Magnesia 30 Ml Oral.Susp) 30 ml PO DAILY PRN PRN Reason: Constipation Melatonin (Melatonin 3 Mg Tablet) 6 mg PO BEDTIME [facility] Last Admin: 05/03/23 21:08 Dose: 6 mg Nicotine (Nicotine 14 Mg Patch.Td24) 14 mg TRANSDERMA DAILY [facility] Last Admin: 05/04/23 08:17 Dose: 14 mg Nicotine Polacrilex (Nicotine Polacrilex 2 Mg Gum) 2 mg BUCCAL Q2H PRN PRN Reason: Nicotine Cravings Olanzapine (Olanzapine 5 Mg Tablet) 5 mg PO Q4H PRN PRN Reason: racing thoughts Last Admin: 05/02/23 10:14 Dose: 5 mg Olanzapine (Olanzapine 10 Mg Tablet) 20 mg PO BEDTIME [facility] Last Admin: 05/03/23 21:07 Dose: 20 mg Trazodone HCl (Trazodone Hcl 50 Mg Tablet) 50 mg PO BEDTIME MRX1 PRN PRN Reason: Insomnia Last Admin: 05/03/23 02:06 Dose: 50 mg Allergies Allergies Allergy/AdvReac Type Severity Reaction Status Date / Time adhesive AdvReac Unknown Verified 10/14/22 04:34 aspirin AdvReac Unknown Verified 10/14/22 04:34 epinephrine AdvReac Unknown Verified 10/14/22 04:34 Assessment & Plan Assessment & Plan (1) Bipolar disorder: Status: Acute Code(s): F31.9 - Bipolar disorder, unspecified Plan The patient is an elderly female who was admitted into this facility several times due to depression but no presents with a mixed episode elicited by manic symptoms and depression with suicidal ideation, unable to contract for safety. Also the patient is poorly compliant with treatment. We discussed at length risks, benefits, side-effects and alternatives and she agreed on the plan below. Plan 1. Gather collateral information. 2. Start Zyprexa 10 mg p.o. q.h.s. to target kaylie. On April 26, we increased up to 15 mg po qhs. On April 30 we are increasing up to 20 mg p.o. q.h.s. since she remains manic 3. Start tapering of Prozac, this moment on 20 mg daily. We discontinue Prozac after slow taper April 30. 4. Continue Klonopin 0.5 p.o. q.h.s.. 5. P.r.n. Zyprexa 5 mg p.o. b.i.d. p.r.n. racing thoughts. 6. Continue medical workout. 7. Reassessment with results. 8. Continue 15 minute checks 9. Start Lamictal 25 p.o. b.i.d. on May 02. 10. Increase Klonopin to 1 mg p.o. q.h.s. on May 03. 11. And start melatonin 6 mg p.o. q.h.s. in over 27 point. 12. Most likely discharge for next Friday 05/04: Continue current plans and regimen Reason for continued inpatient stay Substantial Risk for: inability to function Time Spent With Patient Time: Total time managing care of this patient today ____ minutes.
[2023-05-04 18:00] VITALS: BP 161/84; PULSE 90; RESP 16; TEMP 36.9; O2SAT 95
[2023-05-04] MEDS: Melatonin 3 MG TABLET 6 MG PO (21:34)
[2023-05-04] MEDS: traZODone HCL 50 MG TABLET PO (21:34)
[2023-05-04] MEDS: cloNIDine HCL 0.1 MG TABLET PO (21:34)
[2023-05-04] MEDS: clonazePAM 1 MG TABLET PO (21:36)
[2023-05-04] MEDS: OLANZapine 10 MG TABLET 20 MG PO (21:36)
[2023-05-05 08:38] VITALS: BP 147/70; PULSE 79; RESP 15; TEMP 36.9; O2SAT 95
[2023-05-05] MEDS: Nicotine 14 MG PATCH.TD24 TRANSDERMA (08:39)
[2023-05-05] MEDS: lamoTRIgine 25 MG TABLET PO ×2 (08:40→21:29)
--- NOTE | 2023-05-05 10:05 | HO.PSYCHPN ---
Subjective Subjective Date of Service: 05/05/23 Reason For Visit: Mood disorder Subjective Notes: Conditional Voluntary and 3 Day Interim History: Patient was seen and discussed in rounds today. Records and plans were reviewed. She is mostly cooperative and pleasant but hyperverbal. Eating and sleeping adequately. She has been mostly cooperative. She has a 3 day notice which expires tomorrow. Plans are unknown at this time Review of Systems Review of Systems Yes all other systems are reviewed and are negative Mental Status Exam Mental Status Exam Patient Appearance: Appropriate Patient Orientation: Person, Place and Situation Level of Consciousness: Restless Patient Behavior: Guarded Mood Description: Calm and Anxious Affect Description: Elated Patient Cognition Impaired: Yes Ability to Follow Directions: Good Speech Pattern: Clear Hallucinations: None Delusions: Grandiose Thought Process: Racing Thought Content: positive for [place] and positive for Circumstantial Judgement: Poor Diagnostics Vital Signs (24Hr): Vital Signs - 24 hr 05/04/23 18:00 05/05/23 08:38 Temperature 98.4 F 98.4 F Pulse Rate 90 79 Respiratory Rate 16 15 Blood Pressure 161/84 H 147/70 H Pulse Oximetry 95 95 Oxygen Delivery Method Room Air Room Air BMI result Body Mass Index 23.2 Labs 04/24/23 11:46 04/28/23 11:37 Medications Medications Current Medications Acetaminophen (Acetaminophen 325 Mg Tablet) 650 mg PO Q6H PRN PRN Reason: Headache/Pain Mild Scale (1-3) Last Admin: 04/27/23 20:44 Dose: 650 mg Al Hydroxide/Mg Hydroxide (Magnesium Hydrox/Alum Hydrox 30 Ml Oral.Susp) 30 ml PO Q6H PRN PRN Reason: Heartburn/Nausea Clonazepam (Clonazepam 0.125 Mg Tab.Rapdis) 0.125 mg PO TID PRN PRN Reason: anxiety/restlessness Last Admin: 05/04/23 15:45 Dose: 0.125 mg Clonazepam (Clonazepam 1 Mg Tablet) 1 mg PO BEDTIME HAJA Last Admin: 05/04/23 21:36 Dose: 1 mg Clonidine HCl (Clonidine Hcl 0.1 Mg Tablet) 0.1 mg PO BID PRN; Protocol PRN Reason: panic attack Last Admin: 05/04/23 21:34 Dose: 0.1 mg Guaifenesin/Dextromethorphan (Guaifenesin Dm 200/20/10 Ml 10 Ml Syrup) 10 ml PO Q4H PRN PRN Reason: Cough Last Admin: 04/29/23 10:23 Dose: 10 ml Lamotrigine (Lamotrigine 25 Mg Tablet) 25 mg PO BID [facility] Last Admin: 05/05/23 08:40 Dose: 25 mg Magnesium Hydroxide (Milk Of Magnesia 30 Ml Oral.Susp) 30 ml PO DAILY PRN PRN Reason: Constipation Melatonin (Melatonin 3 Mg Tablet) 6 mg PO BEDTIME [facility] Last Admin: 05/04/23 21:34 Dose: 6 mg Nicotine (Nicotine 14 Mg Patch.Td24) 14 mg TRANSDERMA DAILY [facility] Last Admin: 05/05/23 08:39 Dose: 14 mg Nicotine Polacrilex (Nicotine Polacrilex 2 Mg Gum) 2 mg BUCCAL Q2H PRN PRN Reason: Nicotine Cravings Olanzapine (Olanzapine 5 Mg Tablet) 5 mg PO Q4H PRN PRN Reason: racing thoughts Last Admin: 05/02/23 10:14 Dose: 5 mg Olanzapine (Olanzapine 10 Mg Tablet) 20 mg PO BEDTIME [facility] Last Admin: 05/04/23 21:36 Dose: 20 mg Trazodone HCl (Trazodone Hcl 50 Mg Tablet) 50 mg PO BEDTIME MRX1 PRN PRN Reason: Insomnia Last Admin: 05/04/23 21:34 Dose: 50 mg Allergies Allergies Allergy/AdvReac Type Severity Reaction Status Date / Time adhesive AdvReac Unknown Verified 10/14/22 04:34 aspirin AdvReac Unknown Verified 10/14/22 04:34 epinephrine AdvReac Unknown Verified 10/14/22 04:34 Assessment & Plan Assessment & Plan (1) Bipolar disorder: Status: Acute Code(s): F31.9 - Bipolar disorder, unspecified Plan The patient is an elderly female who was admitted into this facility several times due to depression but no presents with a mixed episode elicited by manic symptoms and depression with suicidal ideation, unable to contract for safety. Also the patient is poorly compliant with treatment. We discussed at length risks, benefits, side-effects and alternatives and she agreed on the plan below. Plan 1. Gather collateral information. 2. Start Zyprexa 10 mg p.o. q.h.s. to target kaylie. On April 26, we increased up to 15 mg po qhs. On April 30 we are increasing up to 20 mg p.o. q.h.s. since she remains manic 3. Start tapering of Prozac, this moment on 20 mg daily. We discontinue Prozac after slow taper April 30. 4. Continue Klonopin 0.5 p.o. q.h.s.. 5. P.r.n. Zyprexa 5 mg p.o. b.i.d. p.r.n. racing thoughts. 6. Continue medical workout. 7. Reassessment with results. 8. Continue 15 minute checks 9. Start Lamictal 25 p.o. b.i.d. on May 02. 10. Increase Klonopin to 1 mg p.o. q.h.s. on May 03. 11. And start melatonin 6 mg p.o. q.h.s. in over 27 point. 12. Most likely discharge for next Friday 05/04: Continue current plans and regimen 05/05: Continue current plans and regimen Reason for continued inpatient stay Substantial Risk for: med/psych decompensation Time Spent With Patient Time: Total time managing care of this patient today ____ minutes.
[2023-05-05 17:58] VITALS: BP 132/74
[2023-05-05] MEDS: cloNIDine HCL 0.1 MG TABLET PO (17:59)
[2023-05-05 18:00] VITALS: BP 134/70; PULSE 62; RESP 18; TEMP 36.6; O2SAT 96
[2023-05-05] MEDS: OLANZapine 10 MG TABLET 20 MG PO (21:29)
[2023-05-05] MEDS: Melatonin 3 MG TABLET 6 MG PO (21:29)
[2023-05-05] MEDS: clonazePAM 1 MG TABLET PO (21:29)
[2023-05-06 07:45] VITALS: BP 151/68; PULSE 90; RESP 18; TEMP 36.3; O2SAT 94
[2023-05-06] MEDS: Nicotine 14 MG PATCH.TD24 TRANSDERMA (07:55)
[2023-05-06] MEDS: lamoTRIgine 25 MG TABLET PO (07:56)
--- NOTE | 2023-05-06 11:41 | PM.PSYDC ---
DS: Providers Provider Date of Service: 05/06/23 Date of admission: 04/24/23 20:47 Date of discharge: 05/06/23 Primary care physician: Unknown Physician Attending physician on discharge: James Garcia DS: Diagnosis Discharge Diagnosis (1) Bipolar disorder: Status: Acute DS: Medications Discharge Medications Home Medications: Home Medications Medication Instructions Recorded Confirmed clonidine HCl 0.2 mg tablet 0.2 mg PO BID PRN panic attack 04/24/23 04/24/23 fluoxetine 20 mg capsule 60 mg PO DAILY 04/24/23 04/24/23 Mental Status Exam Mental Status Exam Patient Appearance: Well Grooomed and Appropriate Patient Orientation: Person and Situation Level of Consciousness: Awake and Appropriate Patient Behavior: Appropriate and Cooperative Mood Description: Calm Affect Description: Labile Patient Cognition Impaired: Yes Ability to Follow Directions: Good Speech Pattern: Clear Hallucinations: None Delusions: Not Present Thought Process: Distracted and Linear Thought Content: positive for [place] and positive for Circumstantial Judgement: Fair DS: Summary Hospital Course Hospital Course: The patient is a 77-year-old female, very well known by this team since she had been admitted several times for exacerbation of depression with suicidal ideation. The patient was brought to the emergency room since her mood was manic. She was assessed by crisis and transferring to this facility for psychiatric stabilization. Please see the HPI of the admission note for further details. On interview, the patient admitted manic symptoms elicited by racing thoughts, hyperverbal, flight of ideas and also she admitted some depressive symptoms but she was in agreement to start mood stabilizers. We discussed risks, benefits, side-effects and alternatives and she agreed to start Zyprexa titrated up to 15 mg p.o. q.h.s.. The patient was able to participate in groups but she was grossly manic. Eventually she signed a 3 day notice and we added Lamictal to target mood lability and dysphoria. Also we increased her Klonopin at 1 mg p.o. q.h.s. to target insomnia. The patient reported improvement of her mood, less racing thoughts and improved sleep. Since there were no safety concerns discharge planning was discussed. Time spent discussing smoking cessation with patient: 3 to 10 minutes Status at Discharge Cognitive/behavioral status at discharge: At baseline Functional status at discharge: independent ambulation Overall status at discharge: patient is back to baseline Time Spent with Patient Time attestation: Total time managing care of this patient today __30__ minutes. Time spent: Less than 30 minutes Discharge Plan Discharge Anticipated Discharge Date/Time: 05/06/23 13:00 Patient Disposition: Home, Self-Care Discharge Diagnosis: bipolar disorder Referrals: Gage Copeland APRN - Prescriber [Other] - 05/09/23 10:15 am Billy Bee - Therapist [Other] - 05/07/23 9:00 am Physician,Unknown J [Primary Care Provider] - 1 Week Discharge Medications: New clonazepam 1 mg Tablet 1 mg PO BEDTIME 30 Days Qty: 30 0RF olanzapine 10 mg Tablet 20 mg PO BEDTIME Qty: 30 0RF lamotrigine 25 mg Tablet 25 mg PO BID 30 Days Qty: 60 0RF clonazepam 0.125 mg Tablet,Disintegrating 0.125 mg PO TID PRN (Reason: Anxiety/Restlessness) 30 Days Qty: 60 0RF trazodone 50 mg Tablet 50 mg PO BEDTIME MRX1 PRN (Reason: Insomnia) 30 Days Qty: 60 0RF melatonin 3 mg Tablet 6 mg PO BEDTIME 30 Days Qty: 60 0RF Continued clonidine HCl 0.2 mg tablet 0.2 mg PO BID PRN (Reason: panic attack) 30 Days Qty: 60 0RF Discontinued fluoxetine 20 mg capsule 60 mg PO DAILY Discharge Orders: Discharge Order (Routine); Ordered 05/06/23 Ordered By: James Garcia Diet: Advance to usual diet Activity on Discharge: As tolerated Stand Alone Forms: Patient Portal Discharge page Care Plan Goals: care plan goals achieved in this admission Health Concerns: continue treatment by primary care physician Plan of Treatment: Continue treatment by outpatient providers Assessment: elderly female with a past history of bipolar disorder who was admitted for an episode of kaylie with some dysphoria. She was started on Zyprexa titrated up 20 mg p.o. q.h.s., increase of Klonopin up to 1 mg p.o. q.h.s. and melatonin for sleep. Her mood improved and she is able to be in the community safe.
[2023-05-06] MEDS: cloNIDine HCL 0.1 MG TABLET PO (12:18)
--- NOTE | 2023-05-06 13:28 | PC.NURSE ---
Pt aware of discharge, reported readiness for discharge. D/C instructions given to the patient. Katheryn educated about her medications and appointments. VSS. Ambulates independently with steady gait. Denies pain, denies SI/HI. Pt discharged with her belongings. Left the unit at 13:00. Picked up by Daniele to her appartment.
== END 2023-05-06 13:00 | disposition home or self-care (01) | DRG 885 ==
LOC: HO.ED 17:37 → HO.PGERI 20:56
PROVIDERS: Physician Assistant Medical; Psychiatry & Neurology Psychiatry; Admitting Provider Psychiatry & Neurology Psychiatry; Emergency Provider Emergency Medicine Emergency Medical Services; Visit Provider Psychiatry & Neurology Psychiatry
DX: F31.9 Bipolar disorder, unspecified (principal); R45.851 Suicidal ideations; F17.210 Nicotine dependence, cigarettes, uncomplicated; Z71.6 Tobacco abuse counseling; Z20.822 Contact with and (suspected) exposure to COVID-19; Z62.810 Personal history of physical and sexual abuse in childhood; Z79.899 Other long term (current) drug therapy
CPT/HCPCS: 36415; 80048; 80053; 80061; 80143; 80179; 80307; 81001; 85025; 87635; 93005; 99285; S9485

== ENCOUNTER → 2023-04-24 20:47 | Outpatient (BNV) | payer MEDICARE, SELFPAY | PROVIDERS: Admitting Provider Psychiatry & Neurology Psychiatry; Emergency Provider Emergency Medicine Emergency Medical Services; Visit Provider Psychiatry & Neurology Psychiatry | DX: F31.63 Bipolar disorder, current episode mixed, severe, without psychotic features (principal) | CPT/HCPCS: 99232 ==

== ENCOUNTER → 2023-04-24 20:47 | Outpatient (BNV) | payer MEDICARE, SELFPAY | PROVIDERS: Admitting Provider Psychiatry & Neurology Psychiatry; Emergency Provider Emergency Medicine Emergency Medical Services; Visit Provider Psychiatry & Neurology Psychiatry | DX: F31.78 Bipolar disorder, in full remission, most recent episode mixed (principal) | CPT/HCPCS: 90792; 99231; 99232; 99238 ==

== ENCOUNTER 2023-05-19 00:50 | Emergency (ER) | payer MEDICARE, SELFPAY ==
--- NOTE | ~2023-05-19 | XR_ITS ---
EXAMINATION: XR CHEST CLINICAL INFORMATION: Dizziness. COMPARISON: None available. TECHNIQUE: Frontal view of the chest was obtained. FINDINGS: The cardiomediastinal silhouette is stable. Pacer leads in place. There is no focal lung consolidation or pleural effusion. The bony structures and soft tissues are unremarkable. XR/XR chest 1V IMPRESSION: No active cardiopulmonary disease.
--- NOTE | ~2023-05-19 | CT_ITS ---
EXAMINATION: CT HEAD WITHOUT CONTRAST CLINICAL INFORMATION: Dizziness. COMPARISON: 10/16/2022 TECHNIQUE: Contiguous axial imaging was performed from the skull base to vertex without intravenous administration of contrast. This CT examination was performed using dose optimization techniques as appropriate, variously including the following: *Automated exposure control *Adjustment of mA and/or kV according to patient size (this includes techniques or standardized protocols for targeted exams where dose is matched to indication/reason for exam; i.e. extremities or head) *Use of iterative reconstruction technique DLP: 603 mGy-cm FINDINGS: There is mild cerebral volume loss with prominence of the lateral and the third ventricles. The cortical sulci are widened appropriately. The fourth ventricle and basal cisterns are normally outlined. There is mild bilateral periventricular and central white matter diminished attenuation. There is no acute territorial defect, hemorrhage or midline shift. The extra-axial spaces are Calvarium: Intact. Maxillofacial sinuses and mastoids: Clear as visualized CT/CT head/brain wo IV con IMPRESSION: Mild cerebral volume loss and mild bilateral periventricular and central white matter diminished attenuation which is nonspecific but likely to represent microvascular disease. No acute intracranial abnormality.
[2023-05-19 00:57] VITALS: BP 104/66; BP 99/44; PULSE 52; PULSE 56; RESP 18; TEMP 36.4; O2SAT 93; O2SAT 96; BMI 25.0
--- NOTE | 2023-05-19 01:06 | ECG_ITS ---
Test Reason : DIZZINESS Blood Pressure : / mmHG Vent. Rate : 059 BPM Atrial Rate : 059 BPM P-R Int : 190 ms QRS Dur : 132 ms QT Int : 544 ms P-R-T Axes : 015 039 068 degrees QTc Int : 538 ms Sinus bradycardia with occasional Premature ventricular complexes Left bundle branch block with occasional Electronic ventricular pacemaker Abnormal ECG When compared with ECG of 28-APR-2023 14:34, Premature ventricular complexes are now Present Nonspecific T wave abnormality, worse in Anterolateral leads Electronic ventricular pacemaker is new Referred By: Bartolo Nelson Electronically Signed By:ROSARIO HERR MD
--- NOTE | 2023-05-19 01:23 | ED_ITS ---
HPI - Dizziness General Chief Complaint: Dizziness Stated Complaint: dizziness Time Seen by Provider: 05/19/23 01:04 Source: patient and EMS Mode of arrival: EMS Limitations: no limitations History of Present Illness HPI Narrative: 78-year-old female came in by ambulance for evaluation of dizziness and the room is spinning, patient stated that she has been having chronic dizziness for many months but tonight felt that dizziness is more pronounced and patient was afraid to take her own home medication. otherwise no weakness, no numbness, no speech abnormality, no CP, no SOB, no abdominal pain. Related Data Previous Rx's Medication Instructions Recorded clonazepam 0.125 mg disintegrating 0.125 mg PO TID PRN 05/06/23 tablet Anxiety/Restlessness 30 days #60 tabs clonazepam 1 mg tablet 1 mg PO BEDTIME 30 days #30 tabs 05/06/23 clonidine HCl 0.2 mg tablet 0.2 mg PO BID PRN panic attack 30 05/06/23 days #60 tabs lamotrigine 25 mg tablet 25 mg PO BID 30 days #60 tabs 05/06/23 melatonin 3 mg tablet 6 mg (2 x 3 mg) PO BEDTIME 30 days 05/06/23 #60 tabs olanzapine 10 mg tablet 20 mg (2 x 10 mg) PO BEDTIME #30 05/06/23 tabs trazodone 50 mg tablet 50 mg PO BEDTIME MRX1 PRN Insomnia 05/06/23 30 days #60 tabs meclizine 25 mg tablet 25 mg PO BID PRN dizziness #14 tabs 05/19/23 Allergies Allergy/AdvReac Type Severity Reaction Status Date / Time adhesive AdvReac Unknown Verified 10/14/22 04:34 aspirin AdvReac Unknown Verified 10/14/22 04:34 epinephrine AdvReac Unknown Verified 10/14/22 04:34 Review of Systems 2 Review of Systems: All other systems are reviewed and are negative Constitutional: Reports as per HPI and Reports no additional constitutional complaints Eyes: Reports as per HPI and Reports no additional eye complaints Reports system reviewed and no additional complaints, except as documented Cardiovascular: Reports as per HPI and Reports no additional cardiovascular complaints Respiratory: Reports as per HPI and Reports no additional respiratory complaints Gastrointestinal: Reports as per HPI and Reports no additional gastrointestinal complaints Genitourinary: Reports no additional female genitourinary complaints Musculoskeletal: Reports no additional musculoskeletal complaints Skin/Breast: Reports system reviewed and no additional complaints, except as docu Psychiatric: Reports no additional psychiatric complaints Endocrine: Reports no additional endocrine complaints Hematologic/Lymphatic: Reports no additional hematologic/lymphatic complaints Allergic/Immunologic: Reports no additional allergic/immunologic complaints Reports system reviewed and no additional complaints, except as documented and Reports Abnormal speech present [facility] Past Medical History Medical History C. difficile diarrhea Mitral valve prolapse Tobacco abuse TIA (transient ischemic attack) Prediabetes Hyperlipidemia Depression PTSD (post-traumatic stress disorder) Essential hypertension COPD (chronic obstructive pulmonary disease) Surgical History History of parathyroidectomy History of colectomy Social History Social History Household Members: None Housing: Apartment Do you presently have visiting nurse or other home services: No Alcohol intake: current Alcohol intake frequency: a few times a month Patient Tobacco Use Status: Current everyday Tobacco user Tobacco use type: Cigarette Cigarette Packs Per Day: 3 Cigarettes Per Day: 60.0 Years Smoked: 15 years Smoked in Last 30 Days: Yes e-Cigarette/Vaping Use: Currently Using Second Hand Smoke Exposure: Yes Use of substances other than those prescribed or required for medical reasons: No Substance Use Type: Prescription Drugs and Caffiene Advance Directives: Yes Advance Directives on File: Yes Advance Directives Date on File: 02/08/22 service: No Sexual orientation: Straight/Heterosexual Physical Exam 2 Vital Signs: Vital Signs: Last Vital Signs Temp 97.9 F 05/19/23 03:59 Pulse 54 05/19/23 03:59 Resp 15 05/19/23 03:59 BP 103/49 L 05/19/23 03:59 Pulse Ox 94 05/19/23 03:59 O2 Del Method Room Air 05/19/23 03:59 BMI result Body Mass Index 25.0 Vital signs have been reviewed and appear to be correct. Blood pressure elevated. Heart rate normal. Respiratory rate normal. Temperature normal. Oxygen saturation normal. Appearance: Alert. Oriented X3. No acute distress. Head: Normal external exam. Normocephalic. Atraumatic. No Fink signs noted. No raccoon eyes noted Eyes: PERRLA. EOMI. Conjunctiva and sclera normal. Eyelids normal. ENT: TM's Normal. Pharynx normal. Uvula midline. Moist mucous membranes. No trismus noted. No drooling noted. No muffled voice noted. Neck: Normal inspection. Neck supple. FROM. No adenopathy. Thyroid Normal. No meningeal signs. No neck mass noted. CVS: Normal heart rate and rhythm. Heart sound normal. No murmurs noted. Pulses normal throughout. Respiratory: No respiratory distress. Painless inspiration. Breath sounds normal. No wheezes/rales/rhonchi noted. Chest nontender. No accessory muscle usage noted or decreased air movement noted. Abdomen: Soft and nontender. Bowel sounds normal in all 4 quadrants. No distention noted. No organomegaly noted. No visible injury noted. Back: No CVA tenderness. Full range of motion noted. Skin: Skin warm and dry. Normal skin color. Normal skin turgor. No rashes/lesions/lacerations noted. Extremities: No lower extremity edema. Extremities exhibit normal range of motion. Extremities nontender. Neuro: Oriented X 3. Cranial nerve exam: II-XII are grossly intact No motor deficit. No sensory deficit. Reflexes normal. NIH Stroke Scale Time: 01:26 Level of Consciousness: Alert Level of Consciousness Questions: Answers both questions correctly Level of Consciousness Commands: Performs both tasks correctly Best Gaze: Normal Visual: No visual loss Facial Palsy: Normal Motor Arm (Right): No drift Motor Arm (Left): No drift Motor Leg (Right): No drift Motor Leg (Left): No drift Limb Ataxia: Absent Sensory: Normal Best Language: No aphasia Dysarthia: Normal Extinction and Inattention: No abnormality Score: 0 Course Reevaluation(s) Reevaluation #1: normal neuro exam, head CT is unremarkable, patient been having a chronic vertigo for many months but with just more pronounced yesterday. Will discharge to follow-up with PCP. Time: 06:00 Medications Administered Discontinued Medications Generic Name Dose Route Start Last Admin Trade Name Freq PRN Reason Stop Dose Admin Sodium Chloride 1,000 mls @ 999 mls/hr 05/19/23 01:05 05/19/23 03:04 Ns IV 05/19/23 02:05 Infused .Q1H1M ONE Infusion Sodium Chloride 1,000 mls @ 999 mls/hr 05/19/23 01:19 05/19/23 02:19 Ns IV 05/19/23 02:19 Not Given .Q1H1M ONE Meclizine HCl 25 mg 05/19/23 01:19 05/19/23 02:06 Meclizine Hcl 25 Mg Tablet PO 05/19/23 01:20 25 mg ONCE ONE Administration Medical Decision Making Differential Diagnosis Differential Diagnoses: The differential diagnosis associated with the presentation includes ( Chronic vertigo, intracranial bleed, CVA, electrolyte abnormality, dehydration, severe anemia , UTI.) Admission/Observation Consideration of admission/observation: Escalation of care including admission/observation considered Lab Data MDM Lab Attestation statement: I reviewed the patient's lab results. 05/19/23 01:19 05/19/23 01:18 Labs: Lab Results 05/19/23 05/19/23 Range/Units 01:18 01:19 WBC 7.4 (4.8-10.8) X10*3/uL RBC 3.86 L (4.20-5.50) X10*6/uL Hgb 12.0 (12.0-16.0) g/dl Hct 35.0 L (37.0-47.0) % MCV 90.7 (80.0-98.0) fL MCH 31.1 (27.0-33.0) pg MCHC 34.3 (31.0-35.0) g/dl RDW 14.5 (11.0-16.0) % Plt Count 244 (160-400) X10*3/uL MPV 9.4 (9.4-12.3) fL Immature Gran % (Auto) 1.1 H (0.0-0.4) % Neut % (Auto) 61.2 (45-73) % Lymph % (Auto) 21.5 (20-40) % [place] % (Auto) 9.9 (2-11) % Eos % (Auto) 5.4 H (0-4) % Baso % (Auto) 0.9 (0-2) % Lymph # (Auto) 1.6 (1.2-4.9) X10*3/uL [place] # (Auto) 0.7 (0.1-1.2) X10*3/uL Eos # (Auto) 0.4 (0.0-0.4) X10*3/uL Baso # (Auto) 0.1 (0.0-0.2) X10*3/uL Abs Immat Gran (auto) 0.08 H (0.00-0.03) X10*3/uL Absolute Neuts (auto) 4.5 (2.0-8.3) x10*3/uL Absolute Nucleated RBC 0.000 (0.0-0.012) X10*3/uL Nucleated RBC % (auto) 0.0 (0.0-0.2) /100WBC Sodium 134 L (135-145) mmol/L Potassium 4.3 (3.3-5.1) mmol/L Chloride 103 (96-108) mmol/L Carbon Dioxide 23 (22-29) mmol/L Anion Gap 12 (12-20) BUN 16 (9-16) mg/dL Creatinine 0.77 (0.5-1.4) mg/dL Estim Creat Clear Calc 57.2 Estimated GFR > 60 Random Glucose 132 H (60-115) mg/dL Calcium 9.0 D (8.4-10.2) mg/dL Total Bilirubin 0.2 (0.0-1.0) mg/dL Direct Bilirubin < 0.2 (0.0-0.5) mg/dL AST 16 (5-31) U/L ALT 9 (0-31) U/L Alkaline Phosphatase 84 (39-117) U/L Troponin I High Sens 15.0 (<3.5-17.0) ng/L B-Natriuretic Peptide 106 H (<100) pg/mL Total Protein 6.6 (6.5-8.0) g/dL Albumin 3.5 (3.5-5.0) g/dL Lipase 30 (8-78) U/L Influenza Type A (PCR) NEGATIVE (Negative) Influenza Type B (PCR) NEGATIVE (Negative) RSV RNA Qual (PCR) NEGATIVE (Negative) SARS-CoV-2 RNA (RT-PCR) NEGATIVE (Negative) Independent Interpretation I performed an independent interpretation of an: EKG ( normal sinus rhythm at 60 beats per minute, occasional PVCs, LBBB, no ST-T changes.), Plain X-Ray ( Chest: No active cardiopulmonary disease.) and CT Scan ( Head: No acute intracranial abnormality.) Radiology Impression Discussion of test interpretation with radiology: I have reviewed the radiologist's reading. Chronic Conditions Patient?s care impacted by: Other ( Chronic vertigo) Discharge Plan Discharge Clinical Impression: Vertigo Patient Disposition: Home, Self-Care Instructions: Vertigo (ED) Prescriptions: New meclizine 25 mg tablet 25 mg PO BID PRN (Reason: dizziness) Qty: 14 0RF No Action clonazepam 1 mg Tablet 1 mg PO BEDTIME 30 Days Qty: 30 0RF olanzapine 10 mg Tablet 20 mg PO BEDTIME Qty: 30 0RF lamotrigine 25 mg Tablet 25 mg PO BID 30 Days Qty: 60 0RF clonazepam 0.125 mg Tablet,Disintegrating 0.125 mg PO TID PRN (Reason: Anxiety/Restlessness) 30 Days Qty: 60 0RF trazodone 50 mg Tablet 50 mg PO BEDTIME MRX1 PRN (Reason: Insomnia) 30 Days Qty: 60 0RF melatonin 3 mg Tablet 6 mg PO BEDTIME 30 Days Qty: 60 0RF clonidine HCl 0.2 mg tablet 0.2 mg PO BID PRN (Reason: panic attack) 30 Days Qty: 60 0RF
[2023-05-19 01:24] LABS: MANUAL DIFF FLAG NO
[2023-05-19 01:25] LABS: Basophils Absolute Auto 0.1 X10*3/uL (0.0-0.2); Basophils Percent Auto 0.9 % (0-2); Eosinophils Absolute Auto 0.4 X10*3/uL (0.0-0.4); Eosinophils Percent Auto 5.4 % (0-4); Imm Gran Abs Auto 0.08 X10*3/uL (0.00-0.03); Imm Gran Pct Auto 1.1 % (0.0-0.4); Lymphocytes Absolute Auto 1.6 X10*3/uL (1.2-4.9); Lymphocytes Percent Auto 21.5 % (20-40); Mean Corpuscular HGB Conc 34.3 g/dl (31.0-35.0); Mean Corpuscular Hemoglobin 31.1 pg (27.0-33.0); Mean Corpuscular Volume 90.7 fL (80.0-98.0); Mean Platelet Volume 9.4 fL (9.4-12.3); Monocytes Absolute Auto 0.7 X10*3/uL (0.1-1.2); Monocytes Percent Auto 9.9 % (2-11); Neutrophils Absolute Auto 4.5 x10*3/uL (2.0-8.3); Neutrophils Percent Auto 61.2 % (45-73); Platelet Count 244 X10*3/uL (160-400); Red Blood Count 3.86 X10*6/uL (4.20-5.50); Red Cell Distribution Width 14.5 % (11.0-16.0); White Blood Count 7.4 X10*3/uL (4.8-10.8)
[2023-05-19 01:44] LABS: Alanine Aminotransferase 9 U/L (0-31); Albumin Level 3.5 g/dL (3.5-5.0); Alkaline Phosphatase 84 U/L (39-117); Anion Gap 12 (12-20); Aspartate Amino Transferase 16 U/L (5-31); Bilirubin Direct < 0.2 mg/dL (0.0-0.5); Bilirubin Total 0.2 mg/dL (0.0-1.0); Blood Urea Nitrogen 16 mg/dL (9-16); Carbon Dioxide 23 mmol/L (22-29); Chloride 103 mmol/L (96-108); Creatinine Clr Calc Pharmacy 57.2; Estimated Glomerular Filt Rate > 60; Glucose Random 132 mg/dL (60-115); Lipase 30 U/L (8-78); Potassium 4.3 mmol/L (3.3-5.1); Sodium 134 mmol/L (135-145); Total Protein 6.6 g/dL (6.5-8.0)
[2023-05-19 01:46] LABS: B Type Natriuretic Peptide 106 pg/mL (<100)
[2023-05-19 02:02] LABS: Influenza A PCR NEGATIVE (Negative); Influenza B PCR NEGATIVE (Negative); Resp Syncy Virus RNA Qual PCR NEGATIVE (Negative); SARS COV2 PCR INHOUSE NEGATIVE (Negative)
[2023-05-19] MEDS: 0.9 % Sodium Chloride 1,000 ML 999 ML IV (02:03)
[2023-05-19] MEDS: Meclizine HCl 25 MG TABLET PO (02:06)
[2023-05-19 03:59] VITALS: BP 103/49; PULSE 54; RESP 15; TEMP 36.6; O2SAT 94
[2023-05-19 06:19] LABS: Appearance Urine Clear; Color Urine Yellow; Glucose Urine UA Negative (Negative); Leukocyte Esterase Urine Moderate (2+) (Negative); Nitrite Urine Negative (Negative); UMIC TRIGGER UACC YES; Urine Blood Negative (Negative); Urine Ketones Negative (Negative); Urine Protein Negative (Neg-Trace)
[2023-05-19 06:48] LABS: Bacteria Urine None Seen (None Seen); Hyaline Casts Urine 0-2 /LPF (0-2); RBC Urine 0-2 /HPF (0-2); Squamous Epithelial Cell Urine 0-2 /HPF (0-2); WBC Urine 0-5 /HPF (0-5)
--- NOTE | 2023-05-19 08:25 | PC.NURSE ---
Pt awake and conversational states she is unable to secure a ride home as her discharge has been up for several hours. She was offered breakfast-declined, she was given a coffee.
== END 2023-05-19 09:48 | disposition home or self-care (01) ==
PROVIDERS: Emergency Provider Emergency Medicine
DX: R42 Dizziness and giddiness (principal); R00.1 Bradycardia, unspecified; R06.02 Shortness of breath; F17.210 Nicotine dependence, cigarettes, uncomplicated; Z71.6 Tobacco abuse counseling; Z79.899 Other long term (current) drug therapy; Z20.822 Contact with and (suspected) exposure to COVID-19; Z20.828 Contact with and (suspected) exposure to other viral communicable diseases
CPT/HCPCS: 0241U; 70450; 71045; 80048; 80076; 81001; 83690; 83880; 84484; 85025; 93005; 96360; 96361; 99285

== ENCOUNTER 2023-06-11 22:30 | Emergency (ER) | payer MEDICARE, SELFPAY ==
[2023-06-11 22:42] VITALS: BP 154/85; BP 166/81; PULSE 96; PULSE 97; RESP 18; TEMP 36.8; O2SAT 93; O2SAT 97; BMI 31.3
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
--- NOTE | 2023-06-11 22:56 | MHC.EDTECH ---
Patient came in by EMS and changed into hospital attire, Belonging list completed and placed in [facility].
--- NOTE | 2023-06-11 23:26 | MHC.EDTECH ---
Patient ambulated to bathroom with a steady gait,was able to give a small urine sample,labs were obtained and sent to lab. call florence within reach
[2023-06-11 23:30] LABS: MANUAL DIFF FLAG NO
[2023-06-11 23:31] LABS: Basophils Absolute Auto 0.1 X10*3/uL (0.0-0.2); Basophils Percent Auto 0.7 % (0-2); Eosinophils Absolute Auto 0.2 X10*3/uL (0.0-0.4); Eosinophils Percent Auto 2.3 % (0-4); Hematocrit 40.7 % (37.0-47.0); Hemoglobin 14.3 g/dl (12.0-16.0); Imm Gran Abs Auto 0.04 X10*3/uL (0.00-0.03); Imm Gran Pct Auto 0.5 % (0.0-0.4); Lymphocytes Absolute Auto 1.7 X10*3/uL (1.2-4.9); Lymphocytes Percent Auto 19.8 % (20-40); Mean Corpuscular HGB Conc 35.1 g/dl (31.0-35.0); Mean Corpuscular Hemoglobin 30.8 pg (27.0-33.0); Mean Corpuscular Volume 87.5 fL (80.0-98.0); Mean Platelet Volume 9.5 fL (9.4-12.3); Monocytes Absolute Auto 0.7 X10*3/uL (0.1-1.2); Neutrophils Percent Auto 68.7 % (45-73); Platelet Count 281 X10*3/uL (160-400); Red Blood Count 4.65 X10*6/uL (4.20-5.50); Red Cell Distribution Width 13.5 % (11.0-16.0); White Blood Count 8.7 X10*3/uL (4.8-10.8)
[2023-06-11 23:44] LABS: Amphetamine Screen Urine Not Detected (Not Detect); Barbiturates, Urine Not Detected (Not Detect); Benzodiazepines Screen Urine Not Detected (Not Detect); Cannabinoid Screen Urine Not Detected (Not Detect); Cocaine Screen Urine Not Detected (Not Detect); Fentanyl, urine Not Detected (Not Detect); Opiate Screen Urine Not Detected (Not Detect); Phencyclidine Screen Urine Not Detected (Not Detect)
[2023-06-11 23:48] LABS: Alanine Aminotransferase 9 U/L (0-31); Albumin Level 3.9 g/dL (3.5-5.0); Alkaline Phosphatase 73 U/L (39-117); Anion Gap 14 (12-20); Aspartate Amino Transferase 17 U/L (5-31); Bilirubin Total 0.3 mg/dL (0.0-1.0); Blood Urea Nitrogen 12 mg/dL (9-16); Calcium 10.3 mg/dL (8.4-10.2); Carbon Dioxide 23 mmol/L (22-29); Chloride 106 mmol/L (96-108); Creatinine Clr Calc Pharmacy 73.6; Estimated Glomerular Filt Rate > 60; Ethanol < 10 mg/dL; Glucose Random 137 mg/dL (60-115); Potassium 3.8 mmol/L (3.3-5.1); Sodium 139 mmol/L (135-145); Total Protein 7.4 g/dL (6.5-8.0)
--- NOTE | 2023-06-12 00:03 | PC.NURSE ---
Med req completed.
[2023-06-12 01:02] VITALS: BP 171/85; PULSE 91; RESP 18; TEMP 36.7; O2SAT 98
[2023-06-12] MEDS: lamoTRIgine 25 MG TABLET PO ×2 (01:05→08:49)
--- NOTE | 2023-06-12 01:10 | MHC.EDTECH ---
Patient ambulated to the bathroom with a steady gait,hourly rounds and vitals completed and warm blanket giving for comfort. call florence within reach
[2023-06-12 01:14] LABS: Appearance Urine Clear; Color Urine Yellow; Glucose Urine UA Negative (Negative); Leukocyte Esterase Urine Moderate (2+) (Negative); Nitrite Urine Negative (Negative); PH 6.5 (5.0-9.0); UMIC TRIGGER UACC YES; Urine Blood Negative (Negative); Urine Ketones Negative (Negative); Urine Protein Negative (Neg-Trace)
[2023-06-12 01:19] LABS: Bacteria Urine None Seen (None Seen); Hyaline Casts Urine 0-2 /LPF (0-2); RBC Urine 0-2 /HPF (0-2); Squamous Epithelial Cell Urine 0-2 /HPF (0-2); UACC Culture Trigger YES; WBC Urine 21-50 /HPF (0-5)
[2023-06-12 04:22] VITALS: BP 148/77; PULSE 80; RESP 18; TEMP 36.8; O2SAT 98
--- NOTE | 2023-06-12 04:22 | MHC.EDTECH ---
Hourly rounds and vitals completed
[2023-06-12 06:37] VITALS: BP 160/79; PULSE 80; RESP 18; TEMP 36.7; O2SAT 98
--- NOTE | 2023-06-12 09:53 | PC.NURSE ---
CARE honest john rocket crew member at bedside to evaluate patient.
== END 2023-06-12 11:34 | disposition home or self-care (01) ==
PROVIDERS: Nurse Practitioner Family; Student in an Organized Health Care Education/Training Program; Emergency Provider Emergency Medicine Emergency Medical Services
DX: F33.1 Major depressive disorder, recurrent, moderate (principal); F17.210 Nicotine dependence, cigarettes, uncomplicated; Z71.6 Tobacco abuse counseling; Z79.899 Other long term (current) drug therapy
CPT/HCPCS: 36415; 80053; 80307; 81001; 85025; 87086; 99284; 99285; S9485

== ENCOUNTER 2023-06-26 10:52 | Inpatient (IN) | payer MEDICARE, SELFPAY ==
--- NOTE | ~2023-06-26 | XR_ITS ---
EXAMINATION: XR LUMBOSACRAL SPINE CLINICAL INFORMATION: Low back pain COMPARISON: None available. TECHNIQUE: Three views of the lumbosacral spine. FINDINGS: There is normal lumbar lordosis. The vertebral heights, alignment and disc heights are normal. There is no visible acute fracture, dislocation or subluxation. No aggressive lytic or sclerotic process. SI joints are symmetrical and normal. XR/XR lumbar spine 2-3V IMPRESSION: Unremarkable lumbar spine exam.
[2023-06-26 11:13] VITALS: BP 126/61; PULSE 74; RESP 18; TEMP 36.6; O2SAT 97; BMI 26.6
[2023-06-26 11:36] LABS: Appearance Urine Clear; Color Urine Yellow; Glucose Urine UA Negative (Negative); Leukocyte Esterase Urine Negative (Negative); Nitrite Urine Negative (Negative); PH 6.5 (5.0-9.0); Specific Gravity - Urine <= 1.005 (1.005-1.025); Urine Blood Negative (Negative); Urine Ketones Negative (Negative); Urine Protein Negative (Neg-Trace)
[2023-06-26 11:38] LABS: Bacteria Urine None Seen (None Seen); Hyaline Casts Urine 0-2 /LPF (0-2); RBC Urine 0-2 /HPF (0-2); Squamous Epithelial Cell Urine 0-2 /HPF (0-2); WBC Urine 0-5 /HPF (0-5)
[2023-06-26 11:41] LABS: Amphetamine Screen Urine Not Detected (Not Detect); Barbiturates, Urine Not Detected (Not Detect); Benzodiazepines Screen Urine Not Detected (Not Detect); Cannabinoid Screen Urine Not Detected (Not Detect); Cocaine Screen Urine Not Detected (Not Detect); Fentanyl, urine Not Detected (Not Detect); Opiate Screen Urine Not Detected (Not Detect); Phencyclidine Screen Urine Not Detected (Not Detect)
[2023-06-26 11:49] LABS: MANUAL DIFF FLAG NO
[2023-06-26 11:52] LABS: Basophils Absolute Auto 0.1 X10*3/uL (0.0-0.2); Basophils Percent Auto 0.8 % (0-2); Eosinophils Absolute Auto 0.2 X10*3/uL (0.0-0.4); Eosinophils Percent Auto 2.6 % (0-4); Hematocrit 41.1 % (37.0-47.0); Hemoglobin 14.5 g/dl (12.0-16.0); Imm Gran Abs Auto 0.02 X10*3/uL (0.00-0.03); Imm Gran Pct Auto 0.3 % (0.0-0.4); Lymphocytes Absolute Auto 1.8 X10*3/uL (1.2-4.9); Lymphocytes Percent Auto 24.2 % (20-40); Mean Corpuscular HGB Conc 35.3 g/dl (31.0-35.0); Mean Corpuscular Hemoglobin 30.9 pg (27.0-33.0); Mean Corpuscular Volume 87.4 fL (80.0-98.0); Mean Platelet Volume 9.6 fL (9.4-12.3); Monocytes Absolute Auto 0.5 X10*3/uL (0.1-1.2); Monocytes Percent Auto 7.1 % (2-11); Neutrophils Absolute Auto 4.8 x10*3/uL (2.0-8.3); Platelet Count 230 X10*3/uL (160-400); Red Cell Distribution Width 13.1 % (11.0-16.0); White Blood Count 7.3 X10*3/uL (4.8-10.8)
--- NOTE | 2023-06-26 12:02 | PC.NURSE ---
Katheryn was BIBA on a section 12 after making suicidal statements in the community and taking too much of her clonidine last night. Katheryn reports she is unsteady with her gait at baseline. Walker and red socks given. training program assistant aware. PT high fall risk. Changed over without incident. Denies current SI but doesn't want to be here anymore . Labs pending. Home medications in locker. Per wire charger Clonazepam placed in sealed envelope signed by 2 staff in patients locker. Currently resting in bed.
[2023-06-26 12:05] LABS: COVID-19 Test Negative (Negative); IDNOW Serial# 08D9AD1C
[2023-06-26 12:06] LABS: Acetaminophen LAB < 3 mcg/mL (<30); Salicylate < 5.0 mg/dL (15-30)
[2023-06-26 12:07] VITALS: RESP 18
[2023-06-26 12:07] LABS: Alanine Aminotransferase 9 U/L (0-31); Albumin Level 3.9 g/dL (3.5-5.0); Alkaline Phosphatase 71 U/L (39-117); Anion Gap 12 (12-20); Aspartate Amino Transferase 16 U/L (5-31); Bilirubin Total 0.3 mg/dL (0.0-1.0); Blood Urea Nitrogen 13 mg/dL (9-16); Calcium 9.5 mg/dL (8.4-10.2); Carbon Dioxide 23 mmol/L (22-29); Chloride 102 mmol/L (96-108); Creatinine Clr Calc Pharmacy 71.7; Estimated Glomerular Filt Rate > 60; Ethanol < 10 mg/dL; Glucose Random 100 mg/dL (60-115); Potassium 3.8 mmol/L (3.3-5.1); Sodium 133 mmol/L (135-145); Total Protein 7.2 g/dL (6.5-8.0)
--- NOTE | 2023-06-26 12:27 | ED_ITS ---
HPI - General Adult General Chief complaint: Psychiatric Symptoms Stated complaint: CHAR SEC12 DEPRESSED,WANTS TO HARM SELF PER EMS Time Seen by Provider: 06/26/23 12:27 Source: patient and EMS Mode of arrival: EMS Limitations: no limitations History of Present Illness HPI narrative: Patient is a 78 year old assigned female at with a history of bipolar disorder presenting to the emergency department today with suicidal ideation. Patient states that she is feeling like killing herself. Patient denies any dizziness, lightheadedness, abdominal pain, nausea, vomiting, fever, chills, blurry vision, double vision, loss of vision, chest pain, difficulty breathing, shortness of breath, back pain, night sweats, pain with urination, increased urinary frequency, increased urinary urgency, blood in her urine or stool, syncope or a near syncopal episode, recent trauma or falls, bowel incontinence, bladder incontinence, bowel retention, bladder retention, or any other complaints at this time. Relieving factors: none Exacerbating factors: none Associated symptoms: denies other symptoms Treatments prior to arrival: none Related Data Home Medications Medication Instructions Recorded Confirmed clonazepam 0.5 mg tablet 0.5 mg PO BID PRN anxiety attack 06/26/23 06/26/23 clonidine HCl 0.2 mg tablet 0.2 mg PO BID PRN panic attack 06/26/23 06/26/23 fluoxetine 20 mg capsule 60 mg PO DAILY 06/26/23 06/26/23 meclizine 25 mg tablet 25 mg PO BID PRN dizziness 06/26/23 06/26/23 melatonin 3 mg tablet 3 mg PO BEDTIME 06/26/23 06/26/23 mirtazapine 45 mg tablet 45 mg PO BEDTIME 06/26/23 06/26/23 quetiapine 50 mg tablet 50 - 100 mg PO BEDTIME 06/26/23 06/26/23 Allergies Allergy/AdvReac Type Severity Reaction Status Date / Time adhesive AdvReac Unknown Verified 10/14/22 04:34 aspirin AdvReac Unknown Verified 10/14/22 04:34 epinephrine AdvReac Unknown Verified 10/14/22 04:34 Review of Systems 2 Constitutional: Constitutional: Reports no additional constitutional complaints, Denies chills, Denies fever(s) and Denies night sweats Eyes: Eyes: Reports no additional eye complaints, Denies blurry vision, Denies change in vision, Denies diplopia, Denies eye discharge, Denies loss of vision and Denies eye pain ENT: Denies dizziness Cardiovascular: Cardiovascular: Reports no additional cardiovascular complaints, Denies chest pain, Denies lightheadedness, Denies Loss of Consciousness and Denies dyspnea Respiratory: Respiratory: Reports no additional respiratory complaints and Denies dyspnea Gastrointestinal: Gastrointestinal: Reports no additional gastrointestinal complaints, Denies abdominal pain, Denies melena, Denies hematochezia, Denies change in bowel habits and Denies change in stool character Genitourinary: Genitourinary: Denies hematuria, Denies urinary frequency, Denies dysuria, Denies urinary incontinence, Denies urinary hesitancy and Denies urinary urgency Musculoskeletal: Musculoskeletal: Reports no additional musculoskeletal complaints, Denies numbness and Denies tingling Neurologic: Denies dizziness, Denies loss of vision, Denies numbness and Denies tingling Psychiatric: Psychiatric: Reports no additional psychiatric complaints, Denies homicidal ideation and Reports suicidal ideation Endocrine: Endocrine: Reports no additional endocrine complaints Hematologic/Lymphatic: Hematologic/Lymphatic: Reports no additional hematologic/lymphatic complaints Allergic/Immunologic: Allergic/Immunologic: Reports no additional allergic/immunologic complaints [facility] Past Medical History Attestation statement: The following information was validated with the patient. Source: old records reviewed and nursing notes reviewed Medical History C. difficile diarrhea Mitral valve prolapse Tobacco abuse TIA (transient ischemic attack) Prediabetes Hyperlipidemia Depression PTSD (post-traumatic stress disorder) Essential hypertension COPD (chronic obstructive pulmonary disease) Surgical History History of parathyroidectomy History of colectomy Social History Social History Household Members: None Housing: Apartment Do you presently have visiting nurse or other home services: No Alcohol intake: current Alcohol intake frequency: does not drink Comment: Fall risk wristband. Patient Tobacco Use Status: Current everyday Tobacco user Tobacco use type: Cigarette Cigarette Packs Per Day: 3 Cigarettes Per Day: 60.0 Years Smoked: 15 years e-Cigarette/Vaping Use: Currently Using Second Hand Smoke Exposure: Yes Substance Use Type: Prescription Drugs and Caffiene Advance Directives: Yes Advance Directives on File: Yes Advance Directives Date on File: 02/08/22 service: No Sexual orientation: Straight/Heterosexual Physical Exam ED Vital Signs: Vital Signs - 24 hr 06/26/23 11:13 06/26/23 12:07 Temperature 97.8 F Pulse Rate 74 Respiratory Rate 18 18 Blood Pressure 126/61 Pulse Oximetry 97 Oxygen Delivery Method Room Air BMI result Body Mass Index 26.6 Const General: cooperative, no acute distress, alert and awake Nutritional Appearance: well nourished Orientation/consciousness: patient oriented x3 Limitations: no limitations HENMT Head: Yes normal to inspection and Yes atraumatic Ears: hearing grossly normal bilaterally and external ears normal General nose exam: Normal external nose present, no nasal discharge noted and no epistaxis Face and sinus: Yes normal facial exam, No abrasion and No laceration Mouth: Normal oral and palatal mucosa present, no drooling and no muffled voice Eyes General: appearance normal, both eyes and all related structures Periorbital: periorbital findings normal Eyelids: Yes eyelids normal Conjunctivae: conjunctivae normal Pupils: Equal, round and reactive pupils present EOM: EOMs intact bilaterally Neck Neck: Yes normal visual inspection, Yes full ROM and Yes no lymphadenopathy Chest Chest palpation & inspection: normal inspection of the chest Resp Effort & Inspection: normal respiratory effort and able to speak in complete sentences GI Inspection: Yes normal to inspection Neuro General: patient oriented x3 and moves all extremities Cranial nerves: Yes Equal, round and reactive pupils present Cognition (Neuro): normal cognition Motor exam (neuro): 5/5 motor strength present throughout Sensory Exam: Normal double simultaneous stimulation for sensation Coordination: [id number] test normal Extrem General: Yes normal to inspection, Yes full ROM and Yes capillary refill normal Psych Affect: Labile affect present Thought content: Suicidality present Medical Decision Making Medical Decision Making [facility] Narrative: Patient is a 78 year old assigned female at with a history of bipolar disorder presenting to the emergency department today with suicidal ideation. Patient's physical exam was as noted in the physical exam portion of this note. Patient's blood work was unremarkable. Patient's urine showed no acute process. I explained my physical exam findings as well as all test results to the patient. I answered all questions asked by the patient. Patient currently awaiting CARE team eval. Differential Diagnosis Differential Diagnoses: The differential diagnosis associated with the presentation includes Suicidal ideation Admission/Observation Consideration of admission/observation: Escalation of care including admission/observation considered Patient's disposition will be determined after CARE team evaluation. Lab Data [facility] Lab Attestation statement: I reviewed the patient's lab results. My interpretation of these studies and their corresponding values is that they are grossly normal. 06/26/23 11:42 06/26/23 11:42 Labs: Lab Results 06/26/23 06/26/23 Range/Units 11:26 11:42 WBC 7.3 (4.8-10.8) X10*3/uL RBC 4.70 (4.20-5.50) X10*6/uL Hgb 14.5 (12.0-16.0) g/dl Hct 41.1 (37.0-47.0) % MCV 87.4 (80.0-98.0) fL MCH 30.9 (27.0-33.0) pg MCHC 35.3 H (31.0-35.0) g/dl RDW 13.1 (11.0-16.0) % Plt Count 230 (160-400) X10*3/uL MPV 9.6 (9.4-12.3) fL Immature Gran % (Auto) 0.3 (0.0-0.4) % Neut % (Auto) 65.0 (45-73) % Lymph % (Auto) 24.2 (20-40) % [place] % (Auto) 7.1 (2-11) % Eos % (Auto) 2.6 (0-4) % Baso % (Auto) 0.8 (0-2) % Lymph # (Auto) 1.8 (1.2-4.9) X10*3/uL [place] # (Auto) 0.5 (0.1-1.2) X10*3/uL Eos # (Auto) 0.2 (0.0-0.4) X10*3/uL Baso # (Auto) 0.1 (0.0-0.2) X10*3/uL Abs Immat Gran (auto) 0.02 (0.00-0.03) X10*3/uL Absolute Neuts (auto) 4.8 (2.0-8.3) x10*3/uL Absolute Nucleated RBC 0.000 (0.0-0.012) X10*3/uL Nucleated RBC % (auto) 0.0 (0.0-0.2) /100WBC Sodium 133 L (135-145) mmol/L Potassium 3.8 (3.3-5.1) mmol/L Chloride 102 (96-108) mmol/L Carbon Dioxide 23 (22-29) mmol/L Anion Gap 12 (12-20) BUN 13 (9-16) mg/dL Creatinine 0.68 (0.5-1.4) mg/dL Estim Creat Clear Calc 71.7 Estimated GFR > 60 Random Glucose 100 (60-115) mg/dL Calcium 9.5 D (8.4-10.2) mg/dL Total Bilirubin 0.3 (0.0-1.0) mg/dL AST 16 (5-31) U/L ALT 9 (0-31) U/L Alkaline Phosphatase 71 (39-117) U/L Total Protein 7.2 (6.5-8.0) g/dL Albumin 3.9 (3.5-5.0) g/dL Urine Color Yellow Urine Appearance Clear Urine pH 6.5 (5.0-9.0) Ur Specific [place] <= 1.005 (1.005-1.025) Urine Protein Negative (Neg-Trace) mg/dL Urine Glucose (UA) Negative (Negative) mg/dL Urine Ketones Negative (Negative) mg/dL Urine Blood Negative (Negative) Urine Nitrite Negative (Negative) Ur Leukocyte Esterase Negative (Negative) Urine RBC 0-2 (0-2) /HPF Urine WBC 0-5 (0-5) /HPF Ur Squamous Epith Cells 0-2 (0-2) /HPF Urine Bacteria None Seen (None Seen) Hyaline Casts 0-2 (0-2) /LPF Salicylates < 5.0 L (15-30) mg/dL Urine Opiates Screen Not Detected (Not Detect) Urine Fentanyl Screen Not Detected (Not Detect) Acetaminophen < 3 (<30) mcg/mL Ur Barbiturates Screen Not Detected (Not Detect) Ur Phencyclidine Scrn Not Detected (Not Detect) Ur Amphetamines Screen Not Detected (Not Detect) U Benzodiazepines Scrn Not Detected (Not Detect) Urine Cocaine Screen Not Detected (Not Detect) U Marijuana (THC) Screen Not Detected (Not Detect) Ethyl Alcohol < 10 mg/dL COVID-19 (LANE) Negative (Negative) COVID-19 Clin Com See Note Independent Historian Clinical information obtained from an independent historian. History obtained from or confirmed by: EMS (EMS provided additional history and confirmed the history provided by the patient.) External Record Review External record reviewed: Inpatient record Discharge Plan Discharge Clinical Impression: Bipolar disorder, Feeling suicidal Patient Disposition: Still a Patient Prescriptions: No Action clonazepam 0.5 mg tablet 0.5 mg PO BID PRN (Reason: anxiety attack) melatonin 3 mg tablet 3 mg PO BEDTIME clonidine HCl 0.2 mg tablet 0.2 mg PO BID PRN (Reason: panic attack) meclizine 25 mg tablet 25 mg PO BID PRN (Reason: dizziness) mirtazapine 45 mg tablet 45 mg PO BEDTIME fluoxetine 20 mg capsule 60 mg PO DAILY quetiapine 50 mg tablet 50 - 100 mg PO BEDTIME Interventions: [place]-Suicide Risk Severity Scale Last Done: 06/26/23 12:07
[2023-06-26 16:34] VITALS: RESP 16
--- NOTE | 2023-06-26 19:32 | PC.NURSE ---
Assumed care of patient at 1900. Pt is sleeping at this time, respirations even and unlabored, skin pwd, no apparent distress. Pt has walker at bedside and red fall risk socks in place
[2023-06-26 20:14] VITALS: BP 129/72; PULSE 75; RESP 18; TEMP 36.8; O2SAT 95
[2023-06-26] MEDS: Mirtazapine 15 MG TABLET 45 MG PO (20:49)
[2023-06-26] MEDS: Melatonin 3 MG TABLET PO (20:49)
[2023-06-26] MEDS: QUEtiapine Fumarate 100 MG TABLET PO (20:49)
[2023-06-26] MEDS: clonazePAM 0.5 MG TABLET PO (22:13)
--- NOTE | 2023-06-26 22:14 | PC.NURSE ---
pt reports I am feeling the heeby jeebies and I'm anxious . This RN offered BIANCA scales, pt accepted with no issue and is now laying back in bed, respirations even and unlabored
--- NOTE | 2023-06-26 23:52 | PC.NURSE ---
care assumed of patient at this time; she is ambulating w/ steady gait and use of her walker around the pod; pt rpts other than inability to sleep during the night she has no complaints at this time.
[2023-06-27 04:30] VITALS: BP 127/86; PULSE 87; RESP 16; TEMP 36.7; O2SAT 96
--- NOTE | 2023-06-27 07:36 | PC.NURSE ---
Initial contact with pt. pt provided breakfast. calm and cooperative, ambulatory on unit with walker.
--- NOTE | 2023-06-27 08:04 | PC.NURSE ---
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
--- NOTE | 2023-06-27 09:00 | ECG_ITS ---
Test Reason : check for prolong qt Blood Pressure : / mmHG Vent. Rate : 073 BPM Atrial Rate : 073 BPM P-R Int : 180 ms QRS Dur : 136 ms QT Int : 438 ms P-R-T Axes : -26 -14 093 degrees QTc Int : 482 ms Normal sinus rhythm Left bundle branch block Abnormal ECG When compared with ECG of 19-MAY-2023 04:07, No significant changes seen Referred By: Yaya Hernandes Electronically Signed By:CEDRIC ZHANG MD
--- NOTE | 2023-06-27 11:06 | PC.NURSE ---
this rn assumed care of pt. pt resting in bed at this time, no acute distress.
--- NOTE | 2023-06-27 11:49 | PC.NURSE ---
nurse to nurse report done with Shital RICHARDSON at this time, no questions at this time.
--- NOTE | 2023-06-27 13:20 | PC.NURSE ---
Shital RICHARDSON and security at bedside to transport pt to floor.
[2023-06-27 14:00] VITALS: BP 176/79; PULSE 93; RESP 16; TEMP 36.7; O2SAT 96
[2023-06-27] MEDS: cloNIDine HCL 0.2 MG TABLET PO (16:49)
--- NOTE | 2023-06-27 17:17 | PC.NURSE ---
pt declines flu shot and NRT
--- NOTE | 2023-06-27 17:46 | PC.ADMIT ---
Addendum entered by Amy Loza RN 06/27/23 18:15: Pt reports PMH of TIA, pacer maker due to mitral valve prolapse, colectomy which has left her incontinent of stool at times to which she wears briefs for, and thyroidectomy Original Note: Pt arrived on the unit at 14:25 via wheelchair. Skin check complete, vitals obtained and WNL, pt placed on 15min checks for safety. During admission pt reports she asked her engineering manager electronics after she said I want to . Pt reports she lost her of 61 years last year and relied on him for support and curently wants to jump of a bridge . Pt reports numerous past psychiatric hospitalizations with over 7 past suicide attempts. Pt reports her daughter Sara Guidry is her health care proxy.
[2023-06-27 19:40] VITALS: BP 138/78; PULSE 77; RESP 18; TEMP 36.6; O2SAT 96
[2023-06-27] MEDS: Mirtazapine 15 MG TABLET 45 MG PO (20:11)
[2023-06-27] MEDS: QUEtiapine Fumarate 100 MG TABLET PO (20:11)
[2023-06-27] MEDS: hydrOXYzine HCL 25 MG TABLET PO (21:33)
[2023-06-28] MEDS: Acetaminophen 325 MG TABLET 650 MG PO (03:51)
[2023-06-28] MEDS: hydrOXYzine HCL 25 MG TABLET PO (03:51)
[2023-06-28 08:00] VITALS: BP 136/76; PULSE 70; RESP 16; TEMP 36.3; O2SAT 96
[2023-06-28 10:03] LABS: Cholesterol 257 mg/dL (<200); HDL Cholesterol 51 mg/dL (>40); LDL Cholesterol Calculated 187 mg/dL (<100); Triglycerides 99 mg/dL (<150)
[2023-06-28 10:21] LABS: Free T4 (Free Thyroxine) 0.95 ng/dL (0.71-1.85); Thyroid Stimulating Hormone 0.65 uIU/mL (0.32-4.0)
[2023-06-28] MEDS: cloNIDine HCL 0.2 MG TABLET PO (10:22)
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
[2023-06-28 10:33] LABS: Folate 12.7 ng/mL (> or = 4.0); Vitamin B12 574 pg/mL (200-900)
[2023-06-28 10:55] LABS: Estimated Average Glucose 126 mg/dL
[2023-06-28] MEDS: clonazePAM 0.5 MG TABLET PO (12:53)
[2023-06-28 19:18] VITALS: BP 130/63; PULSE 71; TEMP 36.6; O2SAT 97
[2023-06-28] MEDS: Mirtazapine 15 MG TABLET 45 MG PO (22:28)
[2023-06-28] MEDS: Melatonin 3 MG TABLET PO (22:30)
[2023-06-28] MEDS: QUEtiapine Fumarate 100 MG TABLET PO (22:30)
[2023-06-29 08:15] VITALS: BP 140/73; PULSE 79; RESP 16; TEMP 36.6; O2SAT 97
--- NOTE | 2023-06-29 10:07 | HO.PSYCHPN ---
Subjective Subjective Date of Service: 06/29/23 Reason For Visit: Bipolar Disorder II SI Subjective Notes: Nielsen Warning, Conditional Voluntary and 3 Day Interim History: Patient was seen and discussed in rounds today Pt has been irritable easily agitated focused on her daughter feeling betrayed by her daughter in [place] depressed anxious racing thoughts irritability needs much encouragement seems to be mixed state Mental Status Exam Mental Status Exam Patient Appearance: Appropriate Patient Orientation: Person, Place, Time and Situation Patient Behavior: Talkative and Good Eye Contact Mood Description: Depressed Affect Description: Flat Patient Cognition Impaired: No Ability to Follow Directions: Good Speech Pattern: Spontaneous Speech Memory Description: Intact Hallucinations: None Delusions: Not Present Thought Process: Goal Oriented Thought Content: positive for Goal Oriented and positive for Suicidal Ideation Depressive Symptoms: Thoughts of /Suicide Judgement: Fair Diagnostics Vital Signs (24Hr): Vital Signs - 24 hr 06/28/23 19:18 06/29/23 08:15 Temperature 97.8 F 97.9 F Pulse Rate 71 79 Respiratory Rate 16 Blood Pressure 130/63 140/73 H Pulse Oximetry 97 97 Oxygen Delivery Method Room Air Room Air BMI result Body Mass Index 26.6 Labs 06/26/23 11:42 06/26/23 11:42 Labs: Laboratory Results - last 48 hr 06/28/23 09:13 Estimat Average Glucose 126 Hemoglobin A1c % 6.0 Magnesium 2.0 Triglycerides 99 Cholesterol 257 H LDL Cholesterol, Calc 187 H HDL Cholesterol 51 Vitamin B12 574 Folate 12.7 TSH 0.65 Free T4 0.95 Medications Medications Current Medications Acetaminophen (Acetaminophen 325 Mg Tablet) 650 mg PO Q6H PRN PRN Reason: Headache/Pain Mild Scale (1-3) Last Admin: 06/28/23 03:51 Dose: 650 mg Al Hydroxide/Mg Hydroxide (Magnesium Hydrox/Alum Hydrox 30 Ml Oral.Susp) 30 ml PO Q6H PRN PRN Reason: Heartburn/Nausea Clonazepam (Clonazepam 0.5 Mg Tablet) 0.5 mg PO BID PRN PRN Reason: anxiety attack Last Admin: 06/28/23 12:53 Dose: 0.5 mg Clonidine HCl (Clonidine Hcl 0.2 Mg Tablet) 0.2 mg PO BID PRN; Protocol PRN Reason: panic attack Last Admin: 06/28/23 10:22 Dose: 0.2 mg Hydroxyzine HCl (Hydroxyzine Hcl 25 Mg Tablet) 25 mg PO Q6H PRN PRN Reason: Anxiety Last Admin: 06/28/23 03:51 Dose: 25 mg Magnesium Hydroxide (Milk Of Magnesia 30 Ml Oral.Susp) 30 ml PO DAILY PRN PRN Reason: Constipation Meclizine HCl (Meclizine Hcl 25 Mg Tablet) 25 mg PO BID PRN PRN Reason: dizziness Melatonin (Melatonin 3 Mg Tablet) 3 mg PO BEDTIME HAJA Last Admin: 06/28/23 22:30 Dose: 3 mg Mirtazapine (Mirtazapine 15 Mg Tablet) 45 mg PO BEDTIME HAJA Last Admin: 06/28/23 22:28 Dose: 45 mg Quetiapine Fumarate (Quetiapine Fumarate 100 Mg Tablet) 100 mg PO BEDTIME HAJA Last Admin: 06/28/23 22:30 Dose: 100 mg Trazodone HCl (Trazodone Hcl 50 Mg Tablet) 50 mg PO BEDTIME MRX1 PRN PRN Reason: Insomnia Allergies Allergies Allergy/AdvReac Type Severity Reaction Status Date / Time adhesive AdvReac Unknown Verified 10/14/22 04:34 aspirin AdvReac Unknown Verified 10/14/22 04:34 epinephrine AdvReac Unknown Verified 10/14/22 04:34 Assessment & Plan Assessment & Plan (1) Bipolar disorder: Status: Acute Code(s): F31.9 - Bipolar disorder, unspecified (2) Feeling suicidal: Status: Acute Code(s): R45.851 - Suicidal ideations (3) PTSD (post-traumatic stress disorder): Status: Acute Code(s): F43.10 - Post-traumatic stress disorder, unspecified Plan 78 yo female, hx of PTSD, Bipolar Disorder with depression, reports an increase in depression, SI in the context of several losses and pt attempting to change her focus to forgiveness and letting go of toxic family . States if we can listen to her, attempt to understand and encourage her she jazmyn be grateful. Reports medications are stable and asks to initially focus on the talking piece of work to help her to clear, decrease SI and move ahead. Of note, therapist has been away and not available to pt. Plan: Continue current regime Sx mgt with needed adjustments Encouarge full milieu. 06/29/2023 Monitor safety patient cycling restart olanzapine. Mirtazapine discontinue Patient educated on: diagnosis and medication risk/benefits Informed Consent: further education needed Reason for continued inpatient stay Substantial Risk for: harm to self Time Spent With Patient Time: Total time managing care of this patient today ____ minutes.
[2023-06-29] MEDS: clonazePAM 0.5 MG TABLET PO (14:32)
[2023-06-29] MEDS: OLANZapine 2.5 MG TABLET PO (15:02)
[2023-06-29] MEDS: Acetaminophen 325 MG TABLET 650 MG PO (16:41)
[2023-06-29 17:00] VITALS: BP 175/89; PULSE 89; TEMP 36.7
[2023-06-29 19:02] VITALS: BP 159/88; PULSE 77; RESP 16; TEMP 36.2; O2SAT 96
[2023-06-29] MEDS: Melatonin 3 MG TABLET PO (20:02)
[2023-06-29] MEDS: hydrOXYzine HCL 25 MG TABLET PO (20:02)
[2023-06-29] MEDS: OLANZapine 5 MG TABLET PO (20:02)
[2023-06-29] MEDS: lamoTRIgine 25 MG TABLET PO (20:03)
[2023-06-29] MEDS: Ibuprofen 200 MG TABLET PO (22:05)
[2023-06-29] MEDS: Omeprazole 40 MG CAPSULE.DR PO (22:05)
[2023-06-29] MEDS: Lidocaine 4 % Patch ADH..PATCH 1 PATCH TRANSDERMA (22:07)
[2023-06-30] MEDS: Acetaminophen 325 MG TABLET 650 MG PO (01:00)
[2023-06-30] MEDS: Omeprazole 40 MG CAPSULE.DR PO ×2 (05:55→15:51)
[2023-06-30] MEDS: Ibuprofen 200 MG TABLET PO ×3 (05:55→20:32)
[2023-06-30 06:00] VITALS: BP 175/83; PULSE 87; TEMP 36.7; O2SAT 96
[2023-06-30] MEDS: cloNIDine HCL 0.2 MG TABLET PO (08:38)
[2023-06-30] MEDS: Lidocaine 4 % Patch ADH..PATCH 1 PATCH TRANSDERMA (08:39)
[2023-06-30 10:00] VITALS: BP 123/58; PULSE 89; RESP 16
--- NOTE | 2023-06-30 11:36 | HO.PSYCHPN ---
Subjective Subjective Date of Service: 06/30/23 Reason For Visit: Bipolar Disorder II SI Subjective Notes: Conditional Voluntary Interim History: Patient depressed withdrawn irritable and anxious ruminating about the past very upset at her sister appears to be having recent thoughts regarding the past. Agreeable to restart olanzapine and discontinue mirtazapine Low-dose beta-ashwini started for hypertension and anxiety Mental Status Exam Mental Status Exam Patient Appearance: Appropriate Patient Orientation: Person, Place, Time and Situation Patient Behavior: Talkative and Good Eye Contact Mood Description: Depressed Affect Description: Flat Patient Cognition Impaired: No Ability to Follow Directions: Good Speech Pattern: Spontaneous Speech Memory Description: Intact Hallucinations: None Delusions: Not Present Thought Process: Goal Oriented Thought Content: positive for Goal Oriented and positive for Suicidal Ideation Depressive Symptoms: Thoughts of /Suicide Judgement: Fair Diagnostics Vital Signs (24Hr): Vital Signs - 24 hr 06/29/23 17:00 06/29/23 19:02 06/30/23 06:00 Temperature 98.0 F 97.2 F 98.0 F Pulse Rate 89 77 87 Respiratory Rate 16 Blood Pressure 175/89 H 159/88 H 175/83 H Pulse Oximetry 96 96 Oxygen Delivery Method Room Air Room Air 06/30/23 10:00 Temperature Pulse Rate 89 Respiratory Rate 16 Blood Pressure 123/58 L Pulse Oximetry Oxygen Delivery Method BMI result Body Mass Index 26.6 Labs 06/26/23 11:42 06/26/23 11:42 Medications Medications Current Medications Acetaminophen (Acetaminophen 325 Mg Tablet) 650 mg PO Q6H PRN PRN Reason: Headache/Pain Mild Scale (1-3) Last Admin: 06/30/23 01:00 Dose: 650 mg Al Hydroxide/Mg Hydroxide (Magnesium Hydrox/Alum Hydrox 30 Ml Oral.Susp) 30 ml PO Q6H PRN PRN Reason: Heartburn/Nausea Clonazepam (Clonazepam 0.5 Mg Tablet) 0.5 mg PO BID PRN PRN Reason: anxiety attack Last Admin: 06/29/23 14:32 Dose: 0.5 mg Clonidine HCl (Clonidine Hcl 0.2 Mg Tablet) 0.2 mg PO BID PRN; Protocol PRN Reason: panic attack Last Admin: 06/30/23 08:38 Dose: 0.2 mg Hydroxyzine HCl (Hydroxyzine Hcl 25 Mg Tablet) 25 mg PO Q6H PRN PRN Reason: Anxiety Last Admin: 06/29/23 20:02 Dose: 25 mg Ibuprofen (Ibuprofen 200 Mg Tablet) 200 mg PO Q8H [facility] Last Admin: 06/30/23 05:55 Dose: 200 mg Lamotrigine (Lamotrigine 25 Mg Tablet) 25 mg PO BEDTIME [facility] Last Admin: 06/29/23 20:03 Dose: 25 mg Lidocaine (Lidocaine 4 % Patch Adh..Patch) 1 patch TRANSDERMA DAILY [facility]; Protocol Last Admin: 06/30/23 08:39 Dose: 1 patch Magnesium Hydroxide (Milk Of Magnesia 30 Ml Oral.Susp) 30 ml PO DAILY PRN PRN Reason: Constipation Meclizine HCl (Meclizine Hcl 25 Mg Tablet) 25 mg PO BID PRN PRN Reason: dizziness Melatonin (Melatonin 3 Mg Tablet) 3 mg PO BEDTIME [facility] Last Admin: 06/29/23 20:02 Dose: 3 mg Olanzapine (Olanzapine 5 Mg Tablet) 5 mg PO BEDTIME [facility] Last Admin: 06/29/23 20:02 Dose: 5 mg Omeprazole (Omeprazole 40 Mg Capsule.) 40 mg PO BID@0630,1630 [facility] Last Admin: 06/30/23 05:55 Dose: 40 mg Allergies Allergies Allergy/AdvReac Type Severity Reaction Status Date / Time adhesive AdvReac Unknown Verified 10/14/22 04:34 aspirin AdvReac Unknown Verified 10/14/22 04:34 epinephrine AdvReac Unknown Verified 10/14/22 04:34 Assessment & Plan Assessment & Plan (1) Bipolar disorder: Status: Acute Code(s): F31.9 - Bipolar disorder, unspecified (2) Feeling suicidal: Status: Acute Code(s): R45.851 - Suicidal ideations (3) PTSD (post-traumatic stress disorder): Status: Acute Code(s): F43.10 - Post-traumatic stress disorder, unspecified Plan 78 yo female, hx of PTSD, Bipolar Disorder with depression, reports an increase in depression, SI in the context of several losses and pt attempting to change her focus to forgiveness and letting go of toxic family . States if we can listen to her, attempt to understand and encourage her she jazmyn be grateful. Reports medications are stable and asks to initially focus on the talking piece of work to help her to clear, decrease SI and move ahead. Of note, therapist has been away and not available to pt. Plan: Continue current regime Sx mgt with needed adjustments Encouarge full milieu. 06/29/2023 Monitor safety patient cycling restart olanzapine. Mirtazapine discontinue 06/30/2023 Responds well to redirection discussed trying not to over focus on trauma which can be quite triggering in the stabilized Lamictal started olanzapine at bedtime patient seems less labile more stable Reason for continued inpatient stay Substantial Risk for: harm to self and rapid decompensation Time Spent With Patient Time: Total time managing care of this patient today ____ minutes.
[2023-06-30] MEDS: clonazePAM 0.5 MG TABLET PO (15:51)
[2023-06-30 16:22] VITALS: BP 163/83; PULSE 79; RESP 18
[2023-06-30] MEDS: Metoprolol Succinate ER 12.5 MG HALFTAB.ER.24H PO (16:25)
[2023-06-30 16:27] VITALS: BP 159/75; PULSE 64; RESP 16; TEMP 36.3; O2SAT 97
[2023-06-30] MEDS: hydrOXYzine HCL 25 MG TABLET PO (19:59)
[2023-06-30] MEDS: OLANZapine 5 MG TABLET PO (19:59)
[2023-06-30] MEDS: lamoTRIgine 25 MG TABLET PO (19:59)
[2023-06-30] MEDS: Melatonin 3 MG TABLET PO (19:59)
[2023-07-01] MEDS: Acetaminophen 325 MG TABLET 650 MG PO ×3 (00:23→20:54)
[2023-07-01] MEDS: Omeprazole 40 MG CAPSULE.DR PO ×2 (05:51→16:32)
[2023-07-01] MEDS: Ibuprofen 200 MG TABLET PO ×3 (05:51→20:55)
[2023-07-01 08:47] VITALS: BP 147/94; PULSE 78; RESP 16; TEMP 36.5; O2SAT 98
[2023-07-01] MEDS: Lidocaine 4 % Patch ADH..PATCH 1 PATCH TRANSDERMA (08:52)
[2023-07-01] MEDS: clonazePAM 0.5 MG TABLET PO ×2 (08:52→20:54)
[2023-07-01] MEDS: Metoprolol Succinate ER 12.5 MG HALFTAB.ER.24H PO (08:52)
[2023-07-01 18:00] VITALS: BP 153/97; PULSE 72; RESP 18; TEMP 36.7; O2SAT 97
[2023-07-01] MEDS: Melatonin 3 MG TABLET PO (20:54)
[2023-07-01] MEDS: lamoTRIgine 25 MG TABLET PO (20:54)
[2023-07-01] MEDS: OLANZapine 10 MG TABLET PO (20:54)
--- NOTE | 2023-07-01 23:53 | HO.PSYCHPN ---
Subjective Subjective Date of Service: 06/24/23 Reason For Visit: Bipolar Disorder II SI Subjective Notes: Conditional Voluntary Interim History: Patient feeling somewhat calmer on beta-ashwini mirtazapine discontinued olanzapine at bedtime patient does well with reassurance seems to get confused perhaps regarding her medicine at home more reflective less intense affect Mental Status Exam Mental Status Exam Patient Appearance: Appropriate Patient Orientation: Person, Place, Time and Situation Patient Behavior: Talkative and Good Eye Contact Mood Description: Depressed Affect Description: Flat Patient Cognition Impaired: No Ability to Follow Directions: Good Speech Pattern: Spontaneous Speech Memory Description: Intact Hallucinations: None Delusions: Not Present Thought Process: Goal Oriented Thought Content: positive for Goal Oriented and positive for Suicidal Ideation Depressive Symptoms: Thoughts of /Suicide Judgement: Fair Diagnostics Vital Signs (24Hr): Vital Signs - 24 hr 07/01/23 08:47 07/01/23 18:00 Temperature 97.7 F 98.1 F Pulse Rate 78 72 Respiratory Rate 16 18 Blood Pressure 147/94 H 153/97 H Pulse Oximetry 98 97 Oxygen Delivery Method Room Air Room Air BMI result Body Mass Index 26.6 Labs 06/26/23 11:42 06/26/23 11:42 Imaging Radiology Impressions: ITS Impressions Lumbar Spine X-Ray 06/30/23 13:35 IMPRESSION: Unremarkable lumbar spine exam. Medications Medications Current Medications Acetaminophen (Acetaminophen 325 Mg Tablet) 650 mg PO Q6H PRN PRN Reason: Headache/Pain Mild Scale (1-3) Last Admin: 07/01/23 20:54 Dose: 650 mg Al Hydroxide/Mg Hydroxide (Magnesium Hydrox/Alum Hydrox 30 Ml Oral.Susp) 30 ml PO Q6H PRN PRN Reason: Heartburn/Nausea Atorvastatin Calcium (Atorvastatin Calcium 10 Mg Tablet) 10 mg PO DAILY [facility] Clonazepam (Clonazepam 0.5 Mg Tablet) 0.5 mg PO BID PRN PRN Reason: anxiety attack Last Admin: 07/01/23 20:54 Dose: 0.5 mg Clonidine HCl (Clonidine Hcl 0.1 Mg Tablet) 0.1 mg PO BID PRN; Protocol PRN Reason: panic attack Hydroxyzine HCl (Hydroxyzine Hcl 25 Mg Tablet) 25 mg PO Q6H PRN PRN Reason: Anxiety Last Admin: 06/30/23 19:59 Dose: 25 mg Ibuprofen (Ibuprofen 200 Mg Tablet) 200 mg PO Q8H [facility] Last Admin: 07/01/23 20:55 Dose: 200 mg Lamotrigine (Lamotrigine 25 Mg Tablet) 25 mg PO BID [facility] Last Admin: 07/01/23 20:54 Dose: 25 mg Lidocaine (Lidocaine 4 % Patch Adh..Patch) 1 patch TRANSDERMA DAILY [facility]; Protocol Last Admin: 07/01/23 08:52 Dose: 1 patch Magnesium Hydroxide (Milk Of Magnesia 30 Ml Oral.Susp) 30 ml PO DAILY PRN PRN Reason: Constipation Meclizine HCl (Meclizine Hcl 25 Mg Tablet) 25 mg PO BID PRN PRN Reason: dizziness Melatonin (Melatonin 3 Mg Tablet) 3 mg PO BEDTIME [facility] Last Admin: 07/01/23 20:54 Dose: 3 mg Metoprolol Succinate (Metoprolol Succinate Er 12.5 Mg Halftab.Er.24h) 12.5 mg PO DAILY [facility]; Protocol Last Admin: 07/01/23 08:52 Dose: 12.5 mg Olanzapine (Olanzapine 10 Mg Tablet) 10 mg PO BEDTIME [facility] Last Admin: 07/01/23 20:54 Dose: 10 mg Omeprazole (Omeprazole 40 Mg Capsule.Dr) 40 mg PO BID@0630,1630 [facility] Last Admin: 07/01/23 16:32 Dose: 40 mg Allergies Allergies Allergy/AdvReac Type Severity Reaction Status Date / Time adhesive AdvReac Unknown Verified 10/14/22 04:34 aspirin AdvReac Unknown Verified 10/14/22 04:34 epinephrine AdvReac Unknown Verified 10/14/22 04:34 Assessment & Plan Assessment & Plan (1) Bipolar disorder: Status: Acute Code(s): F31.9 - Bipolar disorder, unspecified (2) Feeling suicidal: Status: Acute Code(s): R45.851 - Suicidal ideations (3) PTSD (post-traumatic stress disorder): Status: Acute Code(s): F43.10 - Post-traumatic stress disorder, unspecified Plan 78 yo female, hx of PTSD, Bipolar Disorder with depression, reports an increase in depression, SI in the context of several losses and pt attempting to change her focus to forgiveness and letting go of toxic family . States if we can listen to her, attempt to understand and encourage her she jazmyn be grateful. Reports medications are stable and asks to initially focus on the talking piece of work to help her to clear, decrease SI and move ahead. Of note, therapist has been away and not available to pt. Plan: Continue current regime Sx mgt with needed adjustments Encouarge full milieu. 06/29/2023 Monitor safety patient cycling restart olanzapine. Mirtazapine discontinue 06/30/2023 Responds well to redirection discussed trying not to over focus on trauma which can be quite triggering in the stabilized Lamictal started olanzapine at bedtime patient seems less labile more stable 07/01/2023 Continue plan of care patient did ask for potential geriatric transfer when it if possible. Seems like she might benefit from more outpatient supports Reason for continued inpatient stay Substantial Risk for: harm to self, inability to function and med/psych decompensation Time Spent With Patient Time: Total time managing care of this patient today ____ minutes.
[2023-07-02] MEDS: traMADoL HCL 50 MG TABLET PO (01:38)
[2023-07-02] MEDS: Acetaminophen 325 MG TABLET 650 MG PO ×3 (01:39→15:08)
[2023-07-02] MEDS: Omeprazole 40 MG CAPSULE.DR PO ×2 (06:06→16:52)
[2023-07-02] MEDS: Ibuprofen 200 MG TABLET PO ×3 (06:06→21:12)
[2023-07-02 08:44] VITALS: BP 164/82; PULSE 76; RESP 16; TEMP 36.5; O2SAT 96
[2023-07-02] MEDS: Atorvastatin Calcium 10 MG TABLET PO (08:55)
[2023-07-02] MEDS: Lidocaine 4 % Patch ADH..PATCH 1 PATCH TRANSDERMA (08:55)
[2023-07-02] MEDS: Metoprolol Succinate ER 12.5 MG HALFTAB.ER.24H PO (08:55)
[2023-07-02] MEDS: lamoTRIgine 25 MG TABLET PO ×2 (08:55→20:22)
[2023-07-02] MEDS: clonazePAM 0.5 MG TABLET PO ×2 (09:00→20:22)
[2023-07-02] MEDS: cloNIDine HCL 0.1 MG TABLET PO (13:29)
[2023-07-02 13:31] VITALS: BP 142/70
--- NOTE | 2023-07-02 16:09 | HO.PSYCHPN ---
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 Pt had discussed with team a transfer to [facility]. Discussed with pt. She reports a change in her decision as there is active COVID on that unit. She prefers to remain on [facility]. Napping when seen. Reports feeling tired- denies current issues of concern and reports she is attempting increased connection in the milieu. Reports intermittent SI. Medication Compliance: Yes Side effects from medications: No Attending Groups: Intermittent Review of Systems Acute medical concerns: No Medical Review of Systems: unchanged Review of Systems Review of Systems Yes all other systems are reviewed and are negative (denies current concerns) Mental Status Exam Mental Status Exam Patient Appearance: Appropriate Patient Orientation: Person, Place, Time and Situation Patient Behavior: Talkative and Good Eye Contact Mood Description: Depressed Affect Description: Flat Patient Cognition Impaired: No Ability to Follow Directions: Good Speech Pattern: Spontaneous Speech Memory Description: Intact Hallucinations: None Delusions: Not Present Thought Process: Goal Oriented Thought Content: positive for Goal Oriented and positive for Suicidal Ideation Depressive Symptoms: Thoughts of /Suicide Judgement: Fair Diagnostics Vital Signs (24Hr): Vital Signs - 24 hr 07/01/23 18:00 07/02/23 08:44 07/02/23 13:31 Temperature 98.1 F 97.7 F Pulse Rate 72 76 Respiratory Rate 18 16 Blood Pressure 153/97 H 164/82 H 142/70 H Pulse Oximetry 97 96 Oxygen Delivery Method Room Air Room Air Room Air BMI result Body Mass Index 26.6 Labs 06/26/23 11:42 06/26/23 11:42 Imaging Radiology Impressions: ITS Impressions Lumbar Spine X-Ray 06/30/23 13:35 IMPRESSION: Unremarkable lumbar spine exam. Medications Medications Current Medications Acetaminophen (Acetaminophen 325 Mg Tablet) 650 mg PO Q6H PRN PRN Reason: Headache/Pain Mild Scale (1-3) Last Admin: 07/02/23 15:08 Dose: 650 mg Al Hydroxide/Mg Hydroxide (Magnesium Hydrox/Alum Hydrox 30 Ml Oral.Susp) 30 ml PO Q6H PRN PRN Reason: Heartburn/Nausea Atorvastatin Calcium (Atorvastatin Calcium 10 Mg Tablet) 10 mg PO DAILY [facility] Last Admin: 07/02/23 08:55 Dose: 10 mg Clonazepam (Clonazepam 0.5 Mg Tablet) 0.5 mg PO BID PRN PRN Reason: anxiety attack Last Admin: 07/02/23 09:00 Dose: 0.5 mg Clonidine HCl (Clonidine Hcl 0.1 Mg Tablet) 0.1 mg PO BID PRN; Protocol PRN Reason: panic attack Last Admin: 07/02/23 13:29 Dose: 0.1 mg Hydroxyzine HCl (Hydroxyzine Hcl 25 Mg Tablet) 25 mg PO Q6H PRN PRN Reason: Anxiety Last Admin: 06/30/23 19:59 Dose: 25 mg Ibuprofen (Ibuprofen 200 Mg Tablet) 200 mg PO Q8H [facility] Last Admin: 07/02/23 13:26 Dose: 200 mg Lamotrigine (Lamotrigine 25 Mg Tablet) 25 mg PO BID [facility] Last Admin: 07/02/23 08:55 Dose: 25 mg Lidocaine (Lidocaine 4 % Patch Adh..Patch) 1 patch TRANSDERMA DAILY [facility]; Protocol Last Admin: 07/02/23 08:55 Dose: 1 patch Magnesium Hydroxide (Milk Of Magnesia 30 Ml Oral.Susp) 30 ml PO DAILY PRN PRN Reason: Constipation Meclizine HCl (Meclizine Hcl 25 Mg Tablet) 25 mg PO BID PRN PRN Reason: dizziness Melatonin (Melatonin 3 Mg Tablet) 3 mg PO BEDTIME [facility] Last Admin: 07/01/23 20:54 Dose: 3 mg Metoprolol Succinate (Metoprolol Succinate Er 12.5 Mg Halftab.Er.24h) 12.5 mg PO DAILY [facility]; Protocol Last Admin: 07/02/23 08:55 Dose: 12.5 mg Olanzapine (Olanzapine 10 Mg Tablet) 10 mg PO BEDTIME [facility] Last Admin: 07/01/23 20:54 Dose: 10 mg Omeprazole (Omeprazole 40 Mg Capsule.Dr) 40 mg PO BID@0630,1630 [facility] Last Admin: 07/02/23 06:06 Dose: 40 mg Allergies Allergies Allergy/AdvReac Type Severity Reaction Status Date / Time adhesive AdvReac Unknown Verified 10/14/22 04:34 aspirin AdvReac Unknown Verified 10/14/22 04:34 epinephrine AdvReac Unknown Verified 10/14/22 04:34 Assessment & Plan Assessment & Plan (1) Bipolar disorder: Status: Acute Code(s): F31.9 - Bipolar disorder, unspecified (2) Feeling suicidal: Status: Acute Code(s): R45.851 - Suicidal ideations (3) PTSD (post-traumatic stress disorder): Status: Acute Code(s): F43.10 - Post-traumatic stress disorder, unspecified Plan 78 yo female, hx of PTSD, Bipolar Disorder with depression, reports an increase in depression, SI in the context of several losses and pt attempting to change her focus to forgiveness and letting go of toxic family . States if we can listen to her, attempt to understand and encourage her she jazmyn be grateful. Reports medications are stable and asks to initially focus on the talking piece of work to help her to clear, decrease SI and move ahead. Of note, therapist has been away and not available to pt. Plan: Continue current regime Sx mgt with needed adjustments Encouarge full milieu. 06/29/2023 Monitor safety patient cycling restart olanzapine. Mirtazapine discontinue 06/30/2023 Responds well to redirection discussed trying not to over focus on trauma which can be quite triggering in the stabilized Lamictal started olanzapine at bedtime patient seems less labile more stable 07/01/2023 Continue plan of care patient did ask for potential geriatric transfer when it if possible. Seems like she might benefit from more outpatient supports 07/02/23 Continue current regime and plan. Pt has declined a transfer offer to [facility] at this time. Informed Consent: understands Reason for continued inpatient stay Substantial Risk for: rapid decompensation Time Spent With Patient Time: Total time managing care of this patient today ____ minutes.
[2023-07-02 18:00] VITALS: BP 144/74; PULSE 81; RESP 18; TEMP 36.4; O2SAT 97
[2023-07-02] MEDS: OLANZapine 10 MG TABLET PO (20:22)
[2023-07-02] MEDS: traMADoL HCL 50 MG TABLET 25 MG PO (21:15)
[2023-07-03] MEDS: Ibuprofen 200 MG TABLET PO ×3 (05:44→22:16)
[2023-07-03] MEDS: Omeprazole 40 MG CAPSULE.DR PO ×2 (05:44→17:39)
[2023-07-03 08:00] VITALS: BP 117/66; PULSE 71; TEMP 36.1; O2SAT 95
[2023-07-03] MEDS: Atorvastatin Calcium 10 MG TABLET PO (08:37)
[2023-07-03] MEDS: Metoprolol Succinate ER 12.5 MG HALFTAB.ER.24H PO (08:37)
[2023-07-03] MEDS: lamoTRIgine 25 MG TABLET PO ×2 (08:37→22:16)
[2023-07-03] MEDS: clonazePAM 0.5 MG TABLET PO ×2 (08:49→22:16)
[2023-07-03] MEDS: traMADoL HCL 50 MG TABLET 25 MG PO ×2 (08:51→22:29)
[2023-07-03] MEDS: Lidocaine 4 % Patch ADH..PATCH 1 PATCH TRANSDERMA (11:39)
--- NOTE | 2023-07-03 14:07 | P.PNPSI_ITS ---
Subjective Subjective Date of Service: 07/03/23 Reason For Visit: Bipolar Disorder II SI Subjective Notes: Conditional Voluntary Interim History: Patient seen chart reviewed case reviewed with nursing staff. Patient calmer less reactive less depressed she is clear that at times she can become confused regarding her medications. She is on Lamictal 25 b.i.d. olanzapine 10 at bedtime beta-ashwini started 12.5 mg XL monitor response patient does have a pacemaker Medication Compliance: Yes Mental Status Exam Mental Status Exam Patient Appearance: Appropriate Patient Orientation: Person, Place, Time and Situation Patient Behavior: Talkative and Good Eye Contact Mood Description: Depressed Affect Description: Flat Patient Cognition Impaired: No Ability to Follow Directions: Good Speech Pattern: Spontaneous Speech Memory Description: Intact Hallucinations: None Delusions: Not Present Thought Process: Goal Oriented Thought Content: positive for Goal Oriented and positive for Suicidal Ideation Depressive Symptoms: Thoughts of /Suicide Judgement: Fair Diagnostics Vital Signs (24Hr): Vital Signs - 24 hr 07/02/23 18:00 07/03/23 08:00 Temperature 97.5 F 97.0 F Pulse Rate 81 71 Respiratory Rate 18 Blood Pressure 144/74 H 117/66 Pulse Oximetry 97 95 Oxygen Delivery Method Room Air Room Air BMI result Body Mass Index 26.6 Labs 06/26/23 11:42 06/26/23 11:42 Imaging Radiology Impressions: ITS Impressions Lumbar Spine X-Ray 06/30/23 13:35 IMPRESSION: Unremarkable lumbar spine exam. Medications Medications Current Medications Acetaminophen (Acetaminophen 325 Mg Tablet) 650 mg PO Q6H PRN PRN Reason: Headache/Pain Mild Scale (1-3) Last Admin: 07/02/23 15:08 Dose: 650 mg Al Hydroxide/Mg Hydroxide (Magnesium Hydrox/Alum Hydrox 30 Ml Oral.Susp) 30 ml PO Q6H PRN PRN Reason: Heartburn/Nausea Atorvastatin Calcium (Atorvastatin Calcium 10 Mg Tablet) 10 mg PO DAILY [facility] Last Admin: 07/03/23 08:37 Dose: 10 mg Clonazepam (Clonazepam 0.5 Mg Tablet) 0.5 mg PO BID PRN PRN Reason: anxiety attack Last Admin: 07/03/23 08:49 Dose: 0.5 mg Clonidine HCl (Clonidine Hcl 0.1 Mg Tablet) 0.1 mg PO BID PRN; Protocol PRN Reason: panic attack Last Admin: 07/02/23 13:29 Dose: 0.1 mg Hydroxyzine HCl (Hydroxyzine Hcl 25 Mg Tablet) 25 mg PO Q6H PRN PRN Reason: Anxiety Last Admin: 06/30/23 19:59 Dose: 25 mg Ibuprofen (Ibuprofen 200 Mg Tablet) 200 mg PO Q8H [facility] Last Admin: 07/03/23 05:44 Dose: 200 mg Lamotrigine (Lamotrigine 25 Mg Tablet) 25 mg PO BID [facility] Last Admin: 07/03/23 08:37 Dose: 25 mg Lidocaine (Lidocaine 4 % Patch Adh..Patch) 1 patch TRANSDERMA DAILY [facility]; Protocol Last Admin: 07/03/23 11:39 Dose: 1 patch Magnesium Hydroxide (Milk Of Magnesia 30 Ml Oral.Susp) 30 ml PO DAILY PRN PRN Reason: Constipation Meclizine HCl (Meclizine Hcl 25 Mg Tablet) 25 mg PO BID PRN PRN Reason: dizziness Melatonin (Melatonin 3 Mg Tablet) 3 mg PO BEDTIME [facility] Last Admin: 07/02/23 20:22 Dose: Not Given Metoprolol Succinate (Metoprolol Succinate Er 12.5 Mg Halftab.Er.24h) 12.5 mg PO DAILY [facility]; Protocol Last Admin: 07/03/23 08:37 Dose: 12.5 mg Olanzapine (Olanzapine 10 Mg Tablet) 10 mg PO BEDTIME [facility] Last Admin: 07/02/23 20:22 Dose: 10 mg Omeprazole (Omeprazole 40 Mg Capsule.Dr) 40 mg PO BID@0630,1630 [facility] Last Admin: 07/03/23 05:44 Dose: 40 mg Tramadol HCl (Tramadol Hcl 50 Mg Tablet) 25 mg PO Q8H PRN PRN Reason: Pain, Moderate(Pain Scale 4-6) Last Admin: 07/03/23 08:51 Dose: 25 mg Allergies Allergies Allergy/AdvReac Type Severity Reaction Status Date / Time adhesive AdvReac Unknown Verified 10/14/22 04:34 aspirin AdvReac Unknown Verified 10/14/22 04:34 epinephrine AdvReac Unknown Verified 10/14/22 04:34 Assessment & Plan Assessment & Plan (1) Bipolar disorder: Status: Acute Code(s): F31.9 - Bipolar disorder, unspecified (2) Feeling suicidal: Status: Acute Code(s): R45.851 - Suicidal ideations (3) PTSD (post-traumatic stress disorder): Status: Acute Code(s): F43.10 - Post-traumatic stress disorder, unspecified Plan 78 yo female, hx of PTSD, Bipolar Disorder with depression, reports an increase in depression, SI in the context of several losses and pt attempting to change her focus to forgiveness and letting go of toxic family . States if we can listen to her, attempt to understand and encourage her she jazmyn be grateful. Reports medications are stable and asks to initially focus on the talking piece of work to help her to clear, decrease SI and move ahead. Of note, therapist has been away and not available to pt. Plan: Continue current regime Sx mgt with needed adjustments Encouarge full milieu. 06/29/2023 Monitor safety patient cycling restart olanzapine. Mirtazapine discontinue 06/30/2023 Responds well to redirection discussed trying not to over focus on trauma which can be quite triggering in the stabilized Lamictal started olanzapine at bedtime patient seems less labile more stable 07/01/2023 Continue plan of care patient did ask for potential geriatric transfer when it if possible. Seems like she might benefit from more outpatient supports 07/02/23 Continue current regime and plan. Pt has declined a transfer offer to [facility] at this time. 07/03/2023 Continue olanzapine and Lamictal monitor response to beta-ashwini patient gradually improving discussed need to not overwhelm herself with psychotherapy that is just uncovering and triggering. She has been dealing with a lot of of trauma related memories related to her childhood and also regarding 1 of her daughters Reason for continued inpatient stay Substantial Risk for: harm to self and rapid decompensation Time Spent With Patient Time: Total time managing care of this patient today ____ minutes.
[2023-07-03 18:00] VITALS: BP 118/61; PULSE 74; RESP 16; TEMP 36.3; O2SAT 95
[2023-07-03] MEDS: OLANZapine 10 MG TABLET PO (22:16)
[2023-07-04] MEDS: Ibuprofen 200 MG TABLET PO ×2 (05:24→15:34)
[2023-07-04] MEDS: Omeprazole 40 MG CAPSULE.DR PO (05:24)
[2023-07-04 07:00] VITALS: BMI 23.1
[2023-07-04 08:15] VITALS: BP 145/76; PULSE 85; RESP 16; TEMP 36.1; O2SAT 96
[2023-07-04] MEDS: Metoprolol Succinate ER 12.5 MG HALFTAB.ER.24H PO (08:33)
[2023-07-04] MEDS: lamoTRIgine 25 MG TABLET PO ×2 (08:33→19:59)
[2023-07-04] MEDS: Lidocaine 4 % Patch ADH..PATCH 1 PATCH TRANSDERMA (08:33)
[2023-07-04] MEDS: Atorvastatin Calcium 10 MG TABLET PO (08:33)
[2023-07-04] MEDS: Acetaminophen 325 MG TABLET 650 MG PO ×2 (08:36→20:05)
[2023-07-04] MEDS: clonazePAM 0.5 MG TABLET PO ×2 (08:36→20:00)
[2023-07-04] MEDS: traMADoL HCL 50 MG TABLET 25 MG PO ×2 (11:01→20:05)
[2023-07-04] MEDS: hydrOXYzine HCL 25 MG TABLET PO (20:00)
[2023-07-04] MEDS: OLANZapine 10 MG TABLET PO (20:00)
[2023-07-04] MEDS: Melatonin 3 MG TABLET PO (20:00)
[2023-07-05] MEDS: traMADoL HCL 50 MG TABLET 25 MG PO (03:34)
[2023-07-05] MEDS: Omeprazole 40 MG CAPSULE.DR PO (06:41)
[2023-07-05] MEDS: Ibuprofen 200 MG TABLET PO ×2 (06:41→14:31)
--- NOTE | 2023-07-05 07:50 | P.PNPSI_ITS ---
Subjective Subjective Date of Service: 07/04/23 Reason For Visit: Bipolar Disorder II SI Subjective Notes: Conditional Voluntary Healthcare Proxy: No Guardianship: No Medical Problems Affecting Mental Status: No Interim History: Katheryn discussed her thoughts about discharge. She continues with depressive sx, denies SI. She focused on her children and self care today. She is interested in attending [place] 2023 which we discussed. She discussed the role music has played in her healing, mgt of sx. She reports she is tolerating regime. Denies SE. Medication Compliance: Yes Side effects from medications: No Attending Groups: Intermittent Review of Systems Acute medical concerns: No Medical Review of Systems: unchanged Review of Systems Musculoskeletal: Reports back pain and Reports stiffness Mental Status Exam Mental Status Exam Patient Appearance: Appropriate Patient Orientation: Person, Place, Time and Situation Patient Behavior: Talkative and Good Eye Contact Mood Description: Depressed Affect Description: Flat Patient Cognition Impaired: No Ability to Follow Directions: Good Speech Pattern: Spontaneous Speech Memory Description: Intact Hallucinations: None Delusions: Not Present Thought Process: Goal Oriented Thought Content: positive for Goal Oriented and positive for Suicidal Ideation (denies) Depressive Symptoms: Thoughts of /Suicide (denies) Judgement: Fair Diagnostics Vital Signs (24Hr): Vital Signs - 24 hr 07/04/23 08:15 Temperature 97.0 F Pulse Rate 85 Respiratory Rate 16 Blood Pressure 145/76 H Pulse Oximetry 96 Oxygen Delivery Method Room Air BMI result Body Mass Index 23.1 Labs 06/26/23 11:42 06/26/23 11:42 Imaging Radiology Impressions: ITS Impressions Lumbar Spine X-Ray 06/30/23 13:35 IMPRESSION: Unremarkable lumbar spine exam. Medications Medications Current Medications Acetaminophen (Acetaminophen 325 Mg Tablet) 650 mg PO Q6H PRN PRN Reason: Headache/Pain Mild Scale (1-3) Last Admin: 07/04/23 20:05 Dose: 650 mg Al Hydroxide/Mg Hydroxide (Magnesium Hydrox/Alum Hydrox 30 Ml Oral.Susp) 30 ml PO Q6H PRN PRN Reason: Heartburn/Nausea Atorvastatin Calcium (Atorvastatin Calcium 10 Mg Tablet) 10 mg PO DAILY [facility] Last Admin: 07/04/23 08:33 Dose: 10 mg Clonazepam (Clonazepam 0.5 Mg Tablet) 0.5 mg PO BID PRN PRN Reason: anxiety attack Last Admin: 07/04/23 20:00 Dose: 0.5 mg Clonidine HCl (Clonidine Hcl 0.1 Mg Tablet) 0.1 mg PO BID PRN; Protocol PRN Reason: panic attack Last Admin: 07/02/23 13:29 Dose: 0.1 mg Hydroxyzine HCl (Hydroxyzine Hcl 25 Mg Tablet) 25 mg PO Q6H PRN PRN Reason: Anxiety Last Admin: 07/04/23 20:00 Dose: 25 mg Ibuprofen (Ibuprofen 200 Mg Tablet) 200 mg PO Q8H [facility] Last Admin: 07/05/23 06:41 Dose: 200 mg Lamotrigine (Lamotrigine 25 Mg Tablet) 25 mg PO BID [facility] Last Admin: 07/04/23 19:59 Dose: 25 mg Lidocaine (Lidocaine 4 % Patch Adh..Patch) 1 patch TRANSDERMA DAILY [facility]; Protocol Last Admin: 07/04/23 08:33 Dose: 1 patch Magnesium Hydroxide (Milk Of Magnesia 30 Ml Oral.Susp) 30 ml PO DAILY PRN PRN Reason: Constipation Meclizine HCl (Meclizine Hcl 25 Mg Tablet) 25 mg PO BID PRN PRN Reason: dizziness Melatonin (Melatonin 3 Mg Tablet) 3 mg PO BEDTIME [facility] Last Admin: 07/04/23 20:00 Dose: 3 mg Metoprolol Succinate (Metoprolol Succinate Er 12.5 Mg Halftab.Er.24h) 12.5 mg PO DAILY [facility]; Protocol Last Admin: 07/04/23 08:33 Dose: 12.5 mg Olanzapine (Olanzapine 10 Mg Tablet) 10 mg PO BEDTIME [facility] Last Admin: 07/04/23 20:00 Dose: 10 mg Omeprazole (Omeprazole 40 Mg Capsule.Dr) 40 mg PO BID@0630,1630 [facility] Last Admin: 07/05/23 06:41 Dose: 40 mg Tramadol HCl (Tramadol Hcl 50 Mg Tablet) 25 mg PO Q8H PRN PRN Reason: Pain, Moderate(Pain Scale 4-6) Last Admin: 07/05/23 03:34 Dose: 25 mg Allergies Allergies Allergy/AdvReac Type Severity Reaction Status Date / Time adhesive AdvReac Unknown Verified 10/14/22 04:34 aspirin AdvReac Unknown Verified 10/14/22 04:34 epinephrine AdvReac Unknown Verified 10/14/22 04:34 Assessment & Plan Assessment & Plan (1) Bipolar disorder: Status: Acute Code(s): F31.9 - Bipolar disorder, unspecified (2) Feeling suicidal: Status: Acute Code(s): R45.851 - Suicidal ideations (3) PTSD (post-traumatic stress disorder): Status: Acute Code(s): F43.10 - Post-traumatic stress disorder, unspecified Plan 78 yo female, hx of PTSD, Bipolar Disorder with depression, reports an increase in depression, SI in the context of several losses and pt attempting to change her focus to forgiveness and letting go of toxic family . States if we can listen to her, attempt to understand and encourage her she jazmyn be grateful. Reports medications are stable and asks to initially focus on the talking piece of work to help her to clear, decrease SI and move ahead. Of note, therapist has been away and not available to pt. Plan: Continue current regime Sx mgt with needed adjustments Encouarge full milieu. 06/29/2023 Monitor safety patient cycling restart olanzapine. Mirtazapine discontinue 06/30/2023 Responds well to redirection discussed trying not to over focus on trauma which can be quite triggering in the stabilized Lamictal started olanzapine at bedtime patient seems less labile more stable 07/01/2023 Continue plan of care patient did ask for potential geriatric transfer when it if possible. Seems like she might benefit from more outpatient supports 07/02/23 Continue current regime and plan. Pt has declined a transfer offer to at this time. 07/03/2023 Continue olanzapine and Lamictal monitor response to beta-ashwini patient gradually improving discussed need to not overwhelm herself with psychotherapy that is just uncovering and triggering. She has been dealing with a lot of of trauma related memories related to her childhood and also regarding 1 of her daughters 07/04/23 Continue regime and plan of care Patient educated on: medication risk/benefits and therapeutic strategies Informed Consent: understands and further education needed Reason for continued inpatient stay Substantial Risk for: harm to self and rapid decompensation Time Spent With Patient Time: Total time managing care of this patient today ____ minutes.
[2023-07-05 08:00] VITALS: BP 187/84; PULSE 79; RESP 16; TEMP 36.4; O2SAT 95
[2023-07-05 09:30] VITALS: BP 147/84
[2023-07-05] MEDS: Metoprolol Succinate ER 12.5 MG HALFTAB.ER.24H PO (09:34)
[2023-07-05] MEDS: lamoTRIgine 25 MG TABLET PO ×2 (09:34→20:54)
[2023-07-05] MEDS: Atorvastatin Calcium 10 MG TABLET PO (09:34)
[2023-07-05] MEDS: Lidocaine 4 % Patch ADH..PATCH 1 PATCH TRANSDERMA (09:36)
[2023-07-05] MEDS: cloNIDine HCL 0.1 MG TABLET PO ×2 (09:47→20:54)
--- NOTE | 2023-07-05 16:21 | P.PNPSI_ITS ---
Subjective Subjective Date of Service: 07/05/23 Reason For Visit: Bipolar Disorder II SI Subjective Notes: Conditional Voluntary Healthcare Proxy: No Guardianship: No Medical Problems Affecting Mental Status: No Interim History: Pt interactive with peers in the milieu. She is reporting mood improvement today. Medication Compliance: Yes Side effects from medications: No Attending Groups: Intermittent Review of Systems Acute medical concerns: No Decrease in pain today she states Medical Review of Systems: unchanged Review of Systems Review of Systems Yes all other systems are reviewed and are negative Mental Status Exam Mental Status Exam Patient Appearance: Appropriate Patient Orientation: Person, Place, Time and Situation Level of Consciousness: Alert Patient Behavior: Talkative and Good Eye Contact Mood Description: Depressed Affect Description: Flat Patient Cognition Impaired: No Ability to Follow Directions: Good Speech Pattern: Spontaneous Speech Memory Description: Intact Hallucinations: None Delusions: Not Present Thought Process: Goal Oriented Thought Content: positive for Goal Oriented and positive for Suicidal Ideation (denies) Depressive Symptoms: Thoughts of /Suicide (denies) Judgement: Fair Diagnostics Vital Signs (24Hr): Vital Signs - 24 hr 07/05/23 08:00 07/05/23 09:30 Temperature 97.6 F Pulse Rate 79 Respiratory Rate 16 Blood Pressure 187/84 H 147/84 H Pulse Oximetry 95 Oxygen Delivery Method Room Air BMI result Body Mass Index 23.1 Labs 06/26/23 11:42 06/26/23 11:42 Imaging Radiology Impressions: ITS Impressions Lumbar Spine X-Ray 06/30/23 13:35 IMPRESSION: Unremarkable lumbar spine exam. Medications Medications Current Medications Acetaminophen (Acetaminophen 325 Mg Tablet) 650 mg PO Q6H PRN PRN Reason: Headache/Pain Mild Scale (1-3) Last Admin: 07/04/23 20:05 Dose: 650 mg Al Hydroxide/Mg Hydroxide (Magnesium Hydrox/Alum Hydrox 30 Ml Oral.Susp) 30 ml PO Q6H PRN PRN Reason: Heartburn/Nausea Atorvastatin Calcium (Atorvastatin Calcium 10 Mg Tablet) 10 mg PO DAILY [facility] Last Admin: 07/05/23 09:34 Dose: 10 mg Clonazepam (Clonazepam 0.5 Mg Tablet) 0.5 mg PO BID PRN PRN Reason: anxiety attack Last Admin: 07/04/23 20:00 Dose: 0.5 mg Clonidine HCl (Clonidine Hcl 0.1 Mg Tablet) 0.1 mg PO BID PRN; Protocol PRN Reason: panic attack Last Admin: 07/05/23 09:47 Dose: 0.1 mg Hydroxyzine HCl (Hydroxyzine Hcl 25 Mg Tablet) 25 mg PO Q6H PRN PRN Reason: Anxiety Last Admin: 07/04/23 20:00 Dose: 25 mg Ibuprofen (Ibuprofen 200 Mg Tablet) 200 mg PO Q8H [facility] Last Admin: 07/05/23 14:31 Dose: 200 mg Lamotrigine (Lamotrigine 25 Mg Tablet) 25 mg PO BID [facility] Last Admin: 07/05/23 09:34 Dose: 25 mg Lidocaine (Lidocaine 4 % Patch Adh..Patch) 1 patch TRANSDERMA DAILY [facility]; Protocol Last Admin: 07/05/23 09:36 Dose: 1 patch Magnesium Hydroxide (Milk Of Magnesia 30 Ml Oral.Susp) 30 ml PO DAILY PRN PRN Reason: Constipation Meclizine HCl (Meclizine Hcl 25 Mg Tablet) 25 mg PO BID PRN PRN Reason: dizziness Melatonin (Melatonin 3 Mg Tablet) 3 mg PO BEDTIME [facility] Last Admin: 07/04/23 20:00 Dose: 3 mg Metoprolol Succinate (Metoprolol Succinate Er 12.5 Mg Halftab.Er.24h) 12.5 mg PO DAILY [facility]; Protocol Last Admin: 07/05/23 09:34 Dose: 12.5 mg Olanzapine (Olanzapine 10 Mg Tablet) 10 mg PO BEDTIME [facility] Last Admin: 07/04/23 20:00 Dose: 10 mg Omeprazole (Omeprazole 40 Mg Capsule.Dr) 40 mg PO BID@0630,1630 [facility] Last Admin: 07/05/23 06:41 Dose: 40 mg Tramadol HCl (Tramadol Hcl 50 Mg Tablet) 25 mg PO Q8H PRN PRN Reason: Pain, Moderate(Pain Scale 4-6) Last Admin: 07/05/23 03:34 Dose: 25 mg Allergies Allergies Allergy/AdvReac Type Severity Reaction Status Date / Time adhesive AdvReac Unknown Verified 10/14/22 04:34 aspirin AdvReac Unknown Verified 10/14/22 04:34 epinephrine AdvReac Unknown Verified 10/14/22 04:34 Assessment & Plan Assessment & Plan (1) Bipolar disorder: Status: Acute Code(s): F31.9 - Bipolar disorder, unspecified (2) Feeling suicidal: Status: Acute Code(s): R45.851 - Suicidal ideations (3) PTSD (post-traumatic stress disorder): Status: Acute Code(s): F43.10 - Post-traumatic stress disorder, unspecified Plan 78 yo female, hx of PTSD, Bipolar Disorder with depression, reports an increase in depression, SI in the context of several losses and pt attempting to change her focus to forgiveness and letting go of toxic family . States if we can listen to her, attempt to understand and encourage her she jazmyn be grateful. Reports medications are stable and asks to initially focus on the talking piece of work to help her to clear, decrease SI and move ahead. Of note, therapist has been away and not available to pt. Plan: Continue current regime Sx mgt with needed adjustments Encouarge full milieu. 06/29/2023 Monitor safety patient cycling restart olanzapine. Mirtazapine discontinue 06/30/2023 Responds well to redirection discussed trying not to over focus on trauma which can be quite triggering in the stabilized Lamictal started olanzapine at bedtime patient seems less labile more stable 07/01/2023 Continue plan of care patient did ask for potential geriatric transfer when it if possible. Seems like she might benefit from more outpatient supports 07/02/23 Continue current regime and plan. Pt has declined a transfer offer to [facility] at this time. 07/03/2023 Continue olanzapine and Lamictal monitor response to beta-ashwini patient gradually improving discussed need to not overwhelm herself with psychotherapy that is just uncovering and triggering. She has been dealing with a lot of of trauma related memories related to her childhood and also regarding 1 of her daughters 07/04/23 Continue regime and plan of care 07/05/23 Continue current plan/regime Informed Consent: understands Reason for continued inpatient stay Substantial Risk for: rapid decompensation Time Spent With Patient Time: Total time managing care of this patient today ____ minutes.
[2023-07-05] MEDS: clonazePAM 0.5 MG TABLET PO ×2 (16:56→20:54)
[2023-07-05 18:00] VITALS: BP 142/85; PULSE 78; RESP 18; TEMP 36.3; O2SAT 96
[2023-07-05] MEDS: OLANZapine 10 MG TABLET PO (20:54)
[2023-07-06] MEDS: Ibuprofen 200 MG TABLET PO ×3 (06:41→22:21)
[2023-07-06] MEDS: Omeprazole 40 MG CAPSULE.DR PO (06:41)
[2023-07-06 08:00] VITALS: BP 141/75; PULSE 65; RESP 16; TEMP 36.4; O2SAT 92
[2023-07-06] MEDS: Atorvastatin Calcium 10 MG TABLET PO (09:37)
[2023-07-06] MEDS: cloNIDine HCL 0.1 MG TABLET PO (09:37)
[2023-07-06] MEDS: Metoprolol Succinate ER 12.5 MG HALFTAB.ER.24H PO (09:37)
[2023-07-06] MEDS: lamoTRIgine 25 MG TABLET PO ×2 (09:37→22:22)
[2023-07-06] MEDS: Lidocaine 4 % Patch ADH..PATCH 1 PATCH TRANSDERMA (09:37)
[2023-07-06] MEDS: clonazePAM 0.5 MG TABLET PO ×2 (14:45→21:32)
[2023-07-06 18:00] VITALS: BP 134/64; PULSE 67; RESP 18; TEMP 36.4; O2SAT 97
[2023-07-06] MEDS: hydrOXYzine HCL 25 MG TABLET PO (21:31)
[2023-07-06] MEDS: OLANZapine 10 MG TABLET PO (22:22)
[2023-07-06] MEDS: Melatonin 3 MG TABLET PO (22:22)
--- NOTE | 2023-07-06 23:15 | HO.PSYCHPN ---
Subjective Subjective Date of Service: 07/06/23 Reason For Visit: Bipolar Disorder II SI Interim History: Patient seen sitting in TV room, in robe and slippers. Appears comfortable. She is soft-spoken. SHe reports mood is upbeat today. Doing better, still some passive suicidal thoughts but no intention or plan. She has some back pain from recently carrying a heavy cast iron webb and is taking PRNs for this. Sleep is better, appetite stable. Denies AH or VH. Mental Status Exam Mental Status Exam Narrative: Alert, oriented, in no acute distress. Dressed in blue robe, utililing walker. Calm, cooperative, forthcoming. Eye contact. Mood depressed, affect constricted. Normal speech. No evidence of thought disorder. Thought content relevant to stressors. Passive SI thoughts without intent or plan. Denies any aggressive ideation or HI on inquiry. No evidence of kaylie or psychosis. Cognition grossly intact. Sensorium clear. Insight and judgment fair. Diagnostics Vital Signs (24Hr): Vital Signs - 24 hr 07/06/23 08:00 07/06/23 18:00 Temperature 97.6 F 97.6 F Pulse Rate 65 67 Respiratory Rate 16 18 Blood Pressure 141/75 H 134/64 Pulse Oximetry 92 97 Oxygen Delivery Method Room Air Room Air BMI result Body Mass Index 23.1 Labs 06/26/23 11:42 06/26/23 11:42 Imaging Radiology Impressions: ITS Impressions Lumbar Spine X-Ray 06/30/23 13:35 IMPRESSION: Unremarkable lumbar spine exam. Medications Medications Current Medications Acetaminophen (Acetaminophen 325 Mg Tablet) 650 mg PO Q6H PRN PRN Reason: Headache/Pain Mild Scale (1-3) Last Admin: 07/04/23 20:05 Dose: 650 mg Al Hydroxide/Mg Hydroxide (Magnesium Hydrox/Alum Hydrox 30 Ml Oral.Susp) 30 ml PO Q6H PRN PRN Reason: Heartburn/Nausea Atorvastatin Calcium (Atorvastatin Calcium 10 Mg Tablet) 10 mg PO DAILY [facility] Last Admin: 07/06/23 09:37 Dose: 10 mg Clonazepam (Clonazepam 0.5 Mg Tablet) 0.5 mg PO BID PRN PRN Reason: anxiety attack Last Admin: 07/06/23 21:32 Dose: 0.5 mg Clonidine HCl (Clonidine Hcl 0.1 Mg Tablet) 0.1 mg PO BID PRN; Protocol PRN Reason: panic attack Last Admin: 07/06/23 09:37 Dose: 0.1 mg Hydroxyzine HCl (Hydroxyzine Hcl 25 Mg Tablet) 25 mg PO Q6H PRN PRN Reason: Anxiety Last Admin: 07/06/23 21:31 Dose: 25 mg Ibuprofen (Ibuprofen 200 Mg Tablet) 200 mg PO Q8H [facility] Last Admin: 07/06/23 22:21 Dose: 200 mg Lamotrigine (Lamotrigine 25 Mg Tablet) 25 mg PO BID [facility] Last Admin: 07/06/23 22:22 Dose: 25 mg Lidocaine (Lidocaine 4 % Patch Adh..Patch) 1 patch TRANSDERMA DAILY [facility]; Protocol Last Admin: 07/06/23 09:37 Dose: 1 patch Magnesium Hydroxide (Milk Of Magnesia 30 Ml Oral.Susp) 30 ml PO DAILY PRN PRN Reason: Constipation Meclizine HCl (Meclizine Hcl 25 Mg Tablet) 25 mg PO BID PRN PRN Reason: dizziness Melatonin (Melatonin 3 Mg Tablet) 3 mg PO BEDTIME [facility] Last Admin: 07/06/23 22:22 Dose: 3 mg Metoprolol Succinate (Metoprolol Succinate Er 12.5 Mg Halftab.Er.24h) 12.5 mg PO DAILY [facility]; Protocol Last Admin: 07/06/23 09:37 Dose: 12.5 mg Olanzapine (Olanzapine 10 Mg Tablet) 10 mg PO BEDTIME [facility] Last Admin: 07/06/23 22:22 Dose: 10 mg Omeprazole (Omeprazole 40 Mg Capsule.Dr) 40 mg PO BID@0630,1630 [facility] Last Admin: 07/06/23 16:45 Dose: Not Given Tramadol HCl (Tramadol Hcl 50 Mg Tablet) 25 mg PO Q8H PRN PRN Reason: Pain, Moderate(Pain Scale 4-6) Last Admin: 07/05/23 03:34 Dose: 25 mg Allergies Allergies Allergy/AdvReac Type Severity Reaction Status Date / Time adhesive AdvReac Unknown Verified 10/14/22 04:34 aspirin AdvReac Unknown Verified 10/14/22 04:34 epinephrine AdvReac Unknown Verified 10/14/22 04:34 Assessment & Plan Assessment & Plan (1) Bipolar disorder: Status: Acute Code(s): F31.9 - Bipolar disorder, unspecified (2) Feeling suicidal: Status: Acute Code(s): R45.851 - Suicidal ideations (3) PTSD (post-traumatic stress disorder): Status: Acute Code(s): F43.10 - Post-traumatic stress disorder, unspecified Plan 78 yo female, hx of PTSD, Bipolar Disorder with depression, reports an increase in depression, SI in the context of several losses and pt attempting to change her focus to forgiveness and letting go of toxic family . States if we can listen to her, attempt to understand and encourage her she jazmyn be grateful. Reports medications are stable and asks to initially focus on the talking piece of work to help her to clear, decrease SI and move ahead. Of note, therapist has been away and not available to pt. Plan: Continue current regime Sx mgt with needed adjustments Encouarge full milieu. 06/29/2023 Monitor safety patient cycling restart olanzapine. Mirtazapine discontinue 06/30/2023 Responds well to redirection discussed trying not to over focus on trauma which can be quite triggering in the stabilized Lamictal started olanzapine at bedtime patient seems less labile more stable 07/01/2023 Continue plan of care patient did ask for potential geriatric transfer when it if possible. Seems like she might benefit from more outpatient supports 07/02/23 Continue current regime and plan. Pt has declined a transfer offer to [facility] at this time. 07/03/2023 Continue olanzapine and Lamictal monitor response to beta-ashwini patient gradually improving discussed need to not overwhelm herself with psychotherapy that is just uncovering and triggering. She has been dealing with a lot of of trauma related memories related to her childhood and also regarding 1 of her daughters 07/04/23 Continue regime and plan of care 07/05/23 Continue current plan/regime Reason for continued inpatient stay Substantial Risk for: harm to self, inability to function, rapid decompensation and med/psych decompensation Time Spent With Patient Time: Total time managing care of this patient today ____ minutes.
[2023-07-07] MEDS: Ibuprofen 200 MG TABLET PO ×3 (06:40→21:33)
[2023-07-07 08:26] VITALS: BP 159/70; PULSE 62; RESP 16; TEMP 36.4; O2SAT 98
[2023-07-07] MEDS: Atorvastatin Calcium 10 MG TABLET PO (09:28)
[2023-07-07] MEDS: lamoTRIgine 25 MG TABLET PO ×2 (09:28→21:35)
[2023-07-07] MEDS: cloNIDine HCL 0.1 MG TABLET PO (09:28)
[2023-07-07] MEDS: Metoprolol Succinate ER 12.5 MG HALFTAB.ER.24H PO (09:28)
[2023-07-07] MEDS: Omeprazole 40 MG CAPSULE.DR PO (16:21)
[2023-07-07 18:00] VITALS: BP 170/74; PULSE 63; RESP 18; TEMP 37.1; O2SAT 98
[2023-07-07] MEDS: hydrOXYzine HCL 25 MG TABLET PO (21:33)
[2023-07-07] MEDS: OLANZapine 10 MG TABLET PO (21:34)
--- NOTE | 2023-07-07 22:53 | P.PNPSI_ITS ---
Subjective Subjective Date of Service: 07/07/23 Reason For Visit: Bipolar Disorder II SI Interim History: cc: My pain is almost gone in my back She reports she is still depressed but managing . Some passive SI thought comes and goes. She is grateful to have companions on the unit, has been spending most of the day walking and conversing with another female peer and seem get along well, similar temperament. She has been getting around part of the dayw ithout a walker. She feels she only needs it for longer disctances, and uses the [facility]mings as support. Mental Status Exam Mental Status Exam Narrative: MSE:? Alert, oriented, in no acute distress. Casually dressed. Calm, cooperative, forthcoming. Eye contact. Mood depressed, affect constricted. Normal speech. No evidence of thought disorder. Thought content relevant to stressors. Passive SI, no HI on inquiry. No evidence of kaylie or psychosis. Cognition grossly intact. Sensorium clear. Insight and judgment fair. Diagnostics Vital Signs (24Hr): Vital Signs - 24 hr 07/07/23 08:26 07/07/23 18:00 Temperature 97.5 F 98.8 F Pulse Rate 62 63 Respiratory Rate 16 18 Blood Pressure 159/70 H 170/74 H Pulse Oximetry 98 98 Oxygen Delivery Method Room Air Room Air BMI result Body Mass Index 23.1 Labs 06/26/23 11:42 06/26/23 11:42 Imaging Radiology Impressions: ITS Impressions Lumbar Spine X-Ray 06/30/23 13:35 IMPRESSION: Unremarkable lumbar spine exam. Medications Medications Current Medications Acetaminophen (Acetaminophen 325 Mg Tablet) 650 mg PO Q6H PRN PRN Reason: Headache/Pain Mild Scale (1-3) Last Admin: 07/04/23 20:05 Dose: 650 mg Al Hydroxide/Mg Hydroxide (Magnesium Hydrox/Alum Hydrox 30 Ml Oral.Susp) 30 ml PO Q6H PRN PRN Reason: Heartburn/Nausea Atorvastatin Calcium (Atorvastatin Calcium 10 Mg Tablet) 10 mg PO DAILY [facility] Last Admin: 07/07/23 09:28 Dose: 10 mg Clonazepam (Clonazepam 0.5 Mg Tablet) 0.5 mg PO BID PRN PRN Reason: anxiety attack Last Admin: 07/06/23 21:32 Dose: 0.5 mg Clonidine HCl (Clonidine Hcl 0.1 Mg Tablet) 0.1 mg PO BID PRN; Protocol PRN Reason: panic attack Last Admin: 07/07/23 09:28 Dose: 0.1 mg Hydroxyzine HCl (Hydroxyzine Hcl 25 Mg Tablet) 25 mg PO Q6H PRN PRN Reason: Anxiety Last Admin: 07/07/23 21:33 Dose: 25 mg Ibuprofen (Ibuprofen 200 Mg Tablet) 200 mg PO Q8H [facility] Last Admin: 07/07/23 21:33 Dose: 200 mg Lamotrigine (Lamotrigine 25 Mg Tablet) 25 mg PO BID [facility] Last Admin: 07/07/23 21:35 Dose: 25 mg Lidocaine (Lidocaine 4 % Patch Adh..Patch) 1 patch TRANSDERMA DAILY [facility]; Protocol Last Admin: 07/07/23 09:51 Dose: Not Given Magnesium Hydroxide (Milk Of Magnesia 30 Ml Oral.Susp) 30 ml PO DAILY PRN PRN Reason: Constipation Meclizine HCl (Meclizine Hcl 25 Mg Tablet) 25 mg PO BID PRN PRN Reason: dizziness Melatonin (Melatonin 3 Mg Tablet) 3 mg PO BEDTIME [facility] Last Admin: 07/07/23 21:36 Dose: Not Given Metoprolol Succinate (Metoprolol Succinate Er 12.5 Mg Halftab.Er.24h) 12.5 mg PO DAILY [facility]; Protocol Last Admin: 07/07/23 09:28 Dose: 12.5 mg Olanzapine (Olanzapine 10 Mg Tablet) 10 mg PO BEDTIME [facility] Last Admin: 07/07/23 21:34 Dose: 10 mg Omeprazole (Omeprazole 40 Mg Capsule.Dr) 40 mg PO BID@0630,1630 [facility] Last Admin: 07/07/23 16:21 Dose: 40 mg Allergies Allergies Allergy/AdvReac Type Severity Reaction Status Date / Time adhesive AdvReac Unknown Verified 10/14/22 04:34 aspirin AdvReac Unknown Verified 10/14/22 04:34 epinephrine AdvReac Unknown Verified 10/14/22 04:34 Assessment & Plan Assessment & Plan (1) Bipolar disorder: Status: Acute Code(s): F31.9 - Bipolar disorder, unspecified (2) Feeling suicidal: Status: Acute Code(s): R45.851 - Suicidal ideations (3) PTSD (post-traumatic stress disorder): Status: Acute Code(s): F43.10 - Post-traumatic stress disorder, unspecified Plan 78 yo female, hx of PTSD, Bipolar Disorder with depression, reports an increase in depression, SI in the context of several losses and pt attempting to change her focus to forgiveness and letting go of toxic family . States if we can listen to her, attempt to understand and encourage her she jazmyn be grateful. Reports medications are stable and asks to initially focus on the talking piece of work to help her to clear, decrease SI and move ahead. Of note, therapist has been away and not available to pt. Plan: Continue current regime Sx mgt with needed adjustments Encouarge full milieu. 06/29/2023 Monitor safety patient cycling restart olanzapine. Mirtazapine discontinue 06/30/2023 Responds well to redirection discussed trying not to over focus on trauma which can be quite triggering in the stabilized Lamictal started olanzapine at bedtime patient seems less labile more stable 07/01/2023 Continue plan of care patient did ask for potential geriatric transfer when it if possible. Seems like she might benefit from more outpatient supports 07/02/23 Continue current regime and plan. Pt has declined a transfer offer to at this time. 07/03/2023 Continue olanzapine and Lamictal monitor response to beta-ashwini patient gradually improving discussed need to not overwhelm herself with psychotherapy that is just uncovering and triggering. She has been dealing with a lot of of trauma related memories related to her childhood and also regarding 1 of her daughters 07/04/23 Continue regime and plan of care 07/05/23 Continue current plan/regime Reason for continued inpatient stay Substantial Risk for: inability to function, rapid decompensation and med/psych decompensation Time Spent With Patient Time: Total time managing care of this patient today ____ minutes.
[2023-07-08] MEDS: hydrOXYzine HCL 25 MG TABLET PO (01:40)
[2023-07-08] MEDS: clonazePAM 0.5 MG TABLET PO ×2 (01:41→15:43)
[2023-07-08] MEDS: Ibuprofen 200 MG TABLET PO ×2 (06:15→21:49)
[2023-07-08] MEDS: Omeprazole 40 MG CAPSULE.DR PO ×2 (06:17→17:00)
[2023-07-08] MEDS: lamoTRIgine 25 MG TABLET PO ×2 (08:16→21:50)
[2023-07-08] MEDS: Atorvastatin Calcium 10 MG TABLET PO (08:16)
[2023-07-08] MEDS: Metoprolol Succinate ER 12.5 MG HALFTAB.ER.24H PO (08:16)
[2023-07-08 08:20] VITALS: BP 161/77; PULSE 68; RESP 16; TEMP 36.1; O2SAT 93
[2023-07-08 18:00] VITALS: BP 132/76; PULSE 75; RESP 16; TEMP 36.9
[2023-07-08] MEDS: OLANZapine 10 MG TABLET PO (21:49)
[2023-07-08] MEDS: Melatonin 3 MG TABLET PO (21:50)
--- NOTE | 2023-07-08 22:09 | HO.PSYCHPN ---
Subjective Subjective Date of Service: 07/08/23 Reason For Visit: Bipolar Disorder II SI Interim History: Patient spending entire weekend with same 2 peers. With walker, she also was strolling hallway with peers and has been pleasant and socialable. She reports looking forward to speaking with SW tomorrow. She enjoyed the [email or web address] last night and appreicated that there was no drama or trouble. She reports her mood is better but still feels some persistent sadness that probably is just there. Dneies any SI, HI, AVH. Sleep, appetite intact. Med compliant. SHe denies any adverse effects. No changes to treatment regime. Review of Systems Review of Systems MSE:? Alert, oriented, in no acute distress. Casually dressed. Calm, cooperative, forthcoming. Eye contact. Mood depressed, affect subdued. Normal speech. No evidence of thought disorder. Thought content relevant to stressors. No SI or HI on inquiry. No evidence of kaylie or psychosis. Cognition grossly intact. Sensorium clear. Insight and judgment fair. Diagnostics Vital Signs (24Hr): Vital Signs - 24 hr 07/08/23 08:20 07/08/23 18:00 Temperature 97 F 98.5 F Pulse Rate 68 75 Respiratory Rate 16 16 Blood Pressure 161/77 H 132/76 Pulse Oximetry 93 Oxygen Delivery Method Room Air BMI result Body Mass Index 23.1 Labs 06/26/23 11:42 06/26/23 11:42 Imaging Radiology Impressions: ITS Impressions Lumbar Spine X-Ray 06/30/23 13:35 IMPRESSION: Unremarkable lumbar spine exam. Medications Medications Current Medications Acetaminophen (Acetaminophen 325 Mg Tablet) 650 mg PO Q6H PRN PRN Reason: Headache/Pain Mild Scale (1-3) Last Admin: 07/04/23 20:05 Dose: 650 mg Al Hydroxide/Mg Hydroxide (Magnesium Hydrox/Alum Hydrox 30 Ml Oral.Susp) 30 ml PO Q6H PRN PRN Reason: Heartburn/Nausea Atorvastatin Calcium (Atorvastatin Calcium 10 Mg Tablet) 10 mg PO DAILY [facility] Last Admin: 07/08/23 08:16 Dose: 10 mg Clonazepam (Clonazepam 0.5 Mg Tablet) 0.5 mg PO BID PRN PRN Reason: anxiety attack Last Admin: 07/08/23 15:43 Dose: 0.5 mg Clonidine HCl (Clonidine Hcl 0.1 Mg Tablet) 0.1 mg PO BID PRN; Protocol PRN Reason: panic attack Last Admin: 07/07/23 09:28 Dose: 0.1 mg Hydroxyzine HCl (Hydroxyzine Hcl 25 Mg Tablet) 25 mg PO Q6H PRN PRN Reason: Anxiety Last Admin: 07/08/23 01:40 Dose: 25 mg Ibuprofen (Ibuprofen 200 Mg Tablet) 200 mg PO Q8H [facility] Last Admin: 07/08/23 21:49 Dose: 200 mg Lamotrigine (Lamotrigine 25 Mg Tablet) 25 mg PO BID [facility] Last Admin: 07/08/23 21:50 Dose: 25 mg Lidocaine (Lidocaine 4 % Patch Adh..Patch) 1 patch TRANSDERMA DAILY [facility]; Protocol Last Admin: 07/08/23 08:22 Dose: Not Given Magnesium Hydroxide (Milk Of Magnesia 30 Ml Oral.Susp) 30 ml PO DAILY PRN PRN Reason: Constipation Meclizine HCl (Meclizine Hcl 25 Mg Tablet) 25 mg PO BID PRN PRN Reason: dizziness Melatonin (Melatonin 3 Mg Tablet) 3 mg PO BEDTIME [facility] Last Admin: 07/08/23 21:50 Dose: 3 mg Metoprolol Succinate (Metoprolol Succinate Er 12.5 Mg Halftab.Er.24h) 12.5 mg PO DAILY [facility]; Protocol Last Admin: 07/08/23 08:16 Dose: 12.5 mg Olanzapine (Olanzapine 10 Mg Tablet) 10 mg PO BEDTIME [facility] Last Admin: 07/08/23 21:49 Dose: 10 mg Omeprazole (Omeprazole 40 Mg Capsule.Dr) 40 mg PO BID@0630,1630 [facility] Last Admin: 07/08/23 17:00 Dose: 40 mg Allergies Allergies Allergy/AdvReac Type Severity Reaction Status Date / Time adhesive AdvReac Unknown Verified 10/14/22 04:34 aspirin AdvReac Unknown Verified 10/14/22 04:34 epinephrine AdvReac Unknown Verified 10/14/22 04:34 Assessment & Plan Assessment & Plan (1) Bipolar disorder: Status: Acute Code(s): F31.9 - Bipolar disorder, unspecified (2) Feeling suicidal: Status: Acute Code(s): R45.851 - Suicidal ideations (3) PTSD (post-traumatic stress disorder): Status: Acute Code(s): F43.10 - Post-traumatic stress disorder, unspecified Plan 78 yo female, hx of PTSD, Bipolar Disorder with depression, reports an increase in depression, SI in the context of several losses and pt attempting to change her focus to forgiveness and letting go of toxic family . States if we can listen to her, attempt to understand and encourage her she jazmyn be grateful. Reports medications are stable and asks to initially focus on the talking piece of work to help her to clear, decrease SI and move ahead. Of note, therapist has been away and not available to pt. Plan: Continue current regime Sx mgt with needed adjustments Encouarge full milieu. 06/29/2023 Monitor safety patient cycling restart olanzapine. Mirtazapine discontinue 06/30/2023 Responds well to redirection discussed trying not to over focus on trauma which can be quite triggering in the stabilized Lamictal started olanzapine at bedtime patient seems less labile more stable 07/01/2023 Continue plan of care patient did ask for potential geriatric transfer when it if possible. Seems like she might benefit from more outpatient supports 07/02/23 Continue current regime and plan. Pt has declined a transfer offer to at this time. 07/03/2023 Continue olanzapine and Lamictal monitor response to beta-ashwini patient gradually improving discussed need to not overwhelm herself with psychotherapy that is just uncovering and triggering. She has been dealing with a lot of of trauma related memories related to her childhood and also regarding 1 of her daughters 07/04/23 Continue regime and plan of care 07/05/23 Continue current plan/regime Reason for continued inpatient stay Substantial Risk for: inability to function, rapid decompensation and med/psych decompensation Time Spent With Patient Time: Total time managing care of this patient today ____ minutes.
[2023-07-09] MEDS: Omeprazole 40 MG CAPSULE.DR PO ×2 (06:23→17:47)
[2023-07-09] MEDS: Ibuprofen 200 MG TABLET PO ×2 (06:23→20:42)
[2023-07-09 08:08] VITALS: BP 137/68; PULSE 73; RESP 16; TEMP 36.4; O2SAT 96
[2023-07-09] MEDS: Atorvastatin Calcium 10 MG TABLET PO (08:39)
[2023-07-09] MEDS: lamoTRIgine 25 MG TABLET PO ×2 (08:39→20:44)
[2023-07-09] MEDS: Metoprolol Succinate ER 12.5 MG HALFTAB.ER.24H PO (08:39)
--- NOTE | 2023-07-09 17:19 | HO.PSYCHPN ---
Subjective Subjective Date of Service: 07/09/23 Reason For Visit: Bipolar Disorder II SI Subjective Notes: Conditional Voluntary and 3 Day Healthcare Proxy: No Guardianship: No Medical Problems Affecting Mental Status: No Interim History: Pt filed a three day notice over the weekend. I feel ready to return to my life and home . Discussed her work on the unit, issues she faces upon discharge and her plans to address issues including her decision to terminate a relationship with one of her daughters, her daughter Sara and Sara's support of pt in doing this, financial issues, and reconnecting with her therapist. Reports sleep and appetite are improved. Pt does appear improved, looking calmer, rested, more interactive with milieu peers. She denies SI, HI, AH, VH and feels prepared and supported in going home. States she has no self-destructive thoughts or plans and I am not a danger to myself. She continues to discuss wanting to go to [place] for the 2023 concert as this has been a goal of hers for many years. Medication Compliance: Yes Side effects from medications: No Attending Groups: Yes Review of Systems Acute medical concerns: No Medical Review of Systems: unchanged Review of Systems Review of Systems Yes all other systems are reviewed and are negative (denies) Mental Status Exam Mental Status Exam Patient Appearance: Appropriate Patient Orientation: Person, Place, Time and Situation Level of Consciousness: Alert Patient Behavior: Appropriate, Talkative and Good Eye Contact Mood Description: Depressed Affect Description: Flat Patient Cognition Impaired: No Ability to Follow Directions: Good Speech Pattern: Spontaneous Speech Memory Description: Intact Hallucinations: None Delusions: Not Present Thought Process: Intact and Goal Oriented Thought Content: positive for Intact, positive for Goal Oriented, positive for Suicidal Ideation (denies) and positive for Homicidal Ideation (denies) Depressive Symptoms: Thoughts of /Suicide (denies) Judgement: Good Diagnostics Vital Signs (24Hr): Vital Signs - 24 hr 07/08/23 18:00 07/09/23 08:08 Temperature 98.5 F 97.6 F Pulse Rate 75 73 Respiratory Rate 16 16 Blood Pressure 132/76 137/68 Pulse Oximetry 96 Oxygen Delivery Method Room Air BMI result Body Mass Index 23.1 Labs 06/26/23 11:42 06/26/23 11:42 Imaging Radiology Impressions: ITS Impressions Lumbar Spine X-Ray 06/30/23 13:35 IMPRESSION: Unremarkable lumbar spine exam. Medications Medications Current Medications Acetaminophen (Acetaminophen 325 Mg Tablet) 650 mg PO Q6H PRN PRN Reason: Headache/Pain Mild Scale (1-3) Last Admin: 07/04/23 20:05 Dose: 650 mg Al Hydroxide/Mg Hydroxide (Magnesium Hydrox/Alum Hydrox 30 Ml Oral.Susp) 30 ml PO Q6H PRN PRN Reason: Heartburn/Nausea Atorvastatin Calcium (Atorvastatin Calcium 10 Mg Tablet) 10 mg PO DAILY [facility] Last Admin: 07/09/23 08:39 Dose: 10 mg Clonazepam (Clonazepam 0.5 Mg Tablet) 0.5 mg PO BID PRN PRN Reason: anxiety attack Last Admin: 07/08/23 15:43 Dose: 0.5 mg Clonidine HCl (Clonidine Hcl 0.1 Mg Tablet) 0.1 mg PO BID PRN; Protocol PRN Reason: panic attack Last Admin: 07/07/23 09:28 Dose: 0.1 mg Hydroxyzine HCl (Hydroxyzine Hcl 25 Mg Tablet) 25 mg PO Q6H PRN PRN Reason: Anxiety Last Admin: 07/08/23 01:40 Dose: 25 mg Ibuprofen (Ibuprofen 200 Mg Tablet) 200 mg PO Q8H HAJA Last Admin: 07/09/23 14:03 Dose: Not Given Lamotrigine (Lamotrigine 25 Mg Tablet) 25 mg PO BID [facility] Last Admin: 07/09/23 08:39 Dose: 25 mg Lidocaine (Lidocaine 4 % Patch Adh..Patch) 1 patch TRANSDERMA DAILY [facility]; Protocol Last Admin: 07/09/23 08:43 Dose: Not Given Magnesium Hydroxide (Milk Of Magnesia 30 Ml Oral.Susp) 30 ml PO DAILY PRN PRN Reason: Constipation Meclizine HCl (Meclizine Hcl 25 Mg Tablet) 25 mg PO BID PRN PRN Reason: dizziness Melatonin (Melatonin 3 Mg Tablet) 3 mg PO BEDTIME [facility] Last Admin: 07/08/23 21:50 Dose: 3 mg Metoprolol Succinate (Metoprolol Succinate Er 12.5 Mg Halftab.Er.24h) 12.5 mg PO DAILY [facility]; Protocol Last Admin: 07/09/23 08:39 Dose: 12.5 mg Olanzapine (Olanzapine 10 Mg Tablet) 10 mg PO BEDTIME [facility] Last Admin: 07/08/23 21:49 Dose: 10 mg Omeprazole (Omeprazole 40 Mg Capsule.Dr) 40 mg PO BID@4377,1451 [facility] Last Admin: 07/09/23 06:23 Dose: 40 mg Allergies Allergies Allergy/AdvReac Type Severity Reaction Status Date / Time adhesive AdvReac Unknown Verified 10/14/22 04:34 aspirin AdvReac Unknown Verified 10/14/22 04:34 epinephrine AdvReac Unknown Verified 10/14/22 04:34 Assessment & Plan Assessment & Plan (1) Bipolar disorder: Status: Acute Code(s): F31.9 - Bipolar disorder, unspecified (2) Feeling suicidal: Status: Acute Code(s): R45.851 - Suicidal ideations (3) PTSD (post-traumatic stress disorder): Status: Acute Code(s): F43.10 - Post-traumatic stress disorder, unspecified Plan 78 yo female, hx of PTSD, Bipolar Disorder with depression, reports an increase in depression, SI in the context of several losses and pt attempting to change her focus to forgiveness and letting go of toxic family . States if we can listen to her, attempt to understand and encourage her she jazmyn be grateful. Reports medications are stable and asks to initially focus on the talking piece of work to help her to clear, decrease SI and move ahead. Of note, therapist has been away and not available to pt. Plan: Continue current regime Sx mgt with needed adjustments Encouarge full milieu. 06/29/2023 Monitor safety patient cycling restart olanzapine. Mirtazapine discontinue 06/30/2023 Responds well to redirection discussed trying not to over focus on trauma which can be quite triggering in the stabilized Lamictal started olanzapine at bedtime patient seems less labile more stable 07/01/2023 Continue plan of care patient did ask for potential geriatric transfer when it if possible. Seems like she might benefit from more outpatient supports 07/02/23 Continue current regime and plan. Pt has declined a transfer offer to [facility] at this time. 07/03/2023 Continue olanzapine and Lamictal monitor response to beta-ashwini patient gradually improving discussed need to not overwhelm herself with psychotherapy that is just uncovering and triggering. She has been dealing with a lot of of trauma related memories related to her childhood and also regarding 1 of her daughters 07/04/23 Continue regime and plan of care 07/05/23 Continue current plan/regime 07/09/23 Discharge on 07/10/23. Patient educated on: medication risk/benefits and therapeutic strategies Informed Consent: understands Reason for continued inpatient stay Substantial Risk for: rapid decompensation Time Spent With Patient Time: Total time managing care of this patient today ____ minutes.
[2023-07-09 20:20] VITALS: BP 171/81; PULSE 94; TEMP 36.4
[2023-07-09] MEDS: Melatonin 3 MG TABLET PO (20:41)
[2023-07-09] MEDS: OLANZapine 10 MG TABLET PO (20:41)
[2023-07-09] MEDS: cloNIDine HCL 0.1 MG TABLET PO (20:43)
[2023-07-10] MEDS: Omeprazole 40 MG CAPSULE.DR PO (06:21)
[2023-07-10 08:38] VITALS: BP 108/63; PULSE 95; RESP 16; TEMP 36.4; O2SAT 95
[2023-07-10] MEDS: Atorvastatin Calcium 10 MG TABLET PO (08:39)
[2023-07-10] MEDS: Metoprolol Succinate ER 12.5 MG HALFTAB.ER.24H PO (08:40)
[2023-07-10] MEDS: lamoTRIgine 25 MG TABLET PO (08:40)
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
== END 2023-07-10 11:50 | disposition home or self-care (01) | DRG 885 ==
LOC: HO.ED 06-27 10:39 → HO.PM5 06-27 12:20
PROVIDERS: Admitting Provider Clinical Nurse Specialist Psychiatric/Mental Health, Adult; Emergency Provider Emergency Medicine Emergency Medical Services; Visit Provider Clinical Nurse Specialist Psychiatric/Mental Health, Adult
DX: F31.9 Bipolar disorder, unspecified (principal); R45.851 Suicidal ideations; F17.210 Nicotine dependence, cigarettes, uncomplicated; Z71.6 Tobacco abuse counseling; F43.10 Post-traumatic stress disorder, unspecified; Z20.822 Contact with and (suspected) exposure to COVID-19; Z79.899 Other long term (current) drug therapy
CPT/HCPCS: 36415; 72100; 80053; 80061; 80143; 80179; 80307; 81001; 82607; 82746; 83036; 83735; 84439; 84443; 85025; 87635; 93005; 99285; S9485

== ENCOUNTER → 2023-06-27 09:00 | Outpatient (BNV) | payer MEDICARE, SELFPAY | PROVIDERS: Admitting Provider Clinical Nurse Specialist Psychiatric/Mental Health, Adult; Emergency Provider Emergency Medicine Emergency Medical Services; Visit Provider Internal Medicine Cardiovascular Disease | DX: I44.7 Left bundle-branch block, unspecified (principal) | CPT/HCPCS: 93010 ==

== ENCOUNTER → 2023-06-27 12:18 | Outpatient (BNV) | payer MEDICARE, SELFPAY | PROVIDERS: Admitting Provider Clinical Nurse Specialist Psychiatric/Mental Health, Adult; Emergency Provider Emergency Medicine Emergency Medical Services; Visit Provider Psychiatry & Neurology Psychiatry | DX: F31.4 Bipolar disorder, current episode depressed, severe, without psychotic features (principal); R45.851 Suicidal ideations; F43.11 Post-traumatic stress disorder, acute | CPT/HCPCS: 99231; 99232 ==

== ENCOUNTER → 2023-06-27 12:18 | Outpatient (BNV) | payer MEDICARE, SELFPAY | PROVIDERS: Admitting Provider Clinical Nurse Specialist Psychiatric/Mental Health, Adult; Emergency Provider Emergency Medicine Emergency Medical Services; Visit Provider Clinical Nurse Specialist Psychiatric/Mental Health, Adult | DX: F31.4 Bipolar disorder, current episode depressed, severe, without psychotic features (principal); R45.851 Suicidal ideations; F43.11 Post-traumatic stress disorder, acute | CPT/HCPCS: 90792; 99231; 99238 ==

== ENCOUNTER 2023-07-21 13:27 | Emergency (ER) | payer MEDICARE, SELFPAY ==
[2023-07-21 14:11] VITALS: BP 110/49; BP 114/61; PULSE 55; PULSE 59; RESP 18; TEMP 36.6; O2SAT 94; O2SAT 97; BMI 22.6
--- NOTE | 2023-07-21 14:55 | PC.NURSE ---
pt denies SI/HI
--- NOTE | 2023-07-21 15:08 | ECG_ITS ---
Test Reason : ALTERED MENTAL Blood Pressure : / mmHG Vent. Rate : 056 BPM Atrial Rate : 056 BPM P-R Int : 182 ms QRS Dur : 144 ms QT Int : 488 ms P-R-T Axes : 102 003 086 degrees QTc Int : 470 ms Sinus bradycardia Left bundle branch block Abnormal ECG When compared with ECG of 27-JUN-2023 10:28, No significant change was found Referred By: Generic ED Physician Electronically Signed By:BROOKE AGUILAR
[2023-07-21 16:20] VITALS: BP 133/59; PULSE 57
[2023-07-21 16:22] VITALS: BP 111/57; PULSE 52
[2023-07-21 16:24] VITALS: BP 90/58; PULSE 60
--- NOTE | 2023-07-21 16:29 | PC.NURSE ---
pt comes from home. aox4. reporting dizziness x several months which she has unable to get help for. pt has hx of PTSD and depression, denies SI/HI. no focal neuro deficits, speaking in full and complete sentences, no facial droop, strength equal bilaterally. Pt walked to bathroom with one assist. Reports feeling wobbly, and weak. Pt walks steadily with standby. EKG done, orthostatic vitals done.
[2023-07-21 16:33] LABS: COVID-19 Test Negative (Negative); IDNOW Serial# 152EDE1D
[2023-07-21 16:36] LABS: Appearance Urine Clear; Color Urine Yellow; Glucose Urine UA Negative (Negative); Leukocyte Esterase Urine Large (3+) (Negative); Nitrite Urine Negative (Negative); UMIC TRIGGER UACC YES; Urine Blood Negative (Negative); Urine Ketones Negative (Negative); Urine Protein Negative (Neg-Trace)
[2023-07-21 16:51] LABS: MANUAL DIFF FLAG NO
[2023-07-21 16:57] LABS: Basophils Absolute Auto 0.1 X10*3/uL (0.0-0.2); Basophils Percent Auto 0.6 % (0-2); Eosinophils Absolute Auto 0.3 X10*3/uL (0.0-0.4); Eosinophils Percent Auto 3.6 % (0-4); Hematocrit 36.9 % (37.0-47.0); Hemoglobin 13.1 g/dl (12.0-16.0); Imm Gran Abs Auto 0.04 X10*3/uL (0.00-0.03); Imm Gran Pct Auto 0.5 % (0.0-0.4); Lymphocytes Absolute Auto 2.1 X10*3/uL (1.2-4.9); Lymphocytes Percent Auto 24.5 % (20-40); Mean Corpuscular HGB Conc 35.5 g/dl (31.0-35.0); Mean Corpuscular Hemoglobin 30.9 pg (27.0-33.0); Mean Platelet Volume 9.4 fL (9.4-12.3); Monocytes Absolute Auto 0.6 X10*3/uL (0.1-1.2); Monocytes Percent Auto 6.7 % (2-11); Neutrophils Absolute Auto 5.5 x10*3/uL (2.0-8.3); Neutrophils Percent Auto 64.1 % (45-73); Platelet Count 279 X10*3/uL (160-400); Red Blood Count 4.24 X10*6/uL (4.20-5.50); Red Cell Distribution Width 13.6 % (11.0-16.0); White Blood Count 8.5 X10*3/uL (4.8-10.8)
[2023-07-21 17:07] LABS: Alanine Aminotransferase 10 U/L (0-31); Albumin Level 3.6 g/dL (3.5-5.0); Alkaline Phosphatase 73 U/L (39-117); Anion Gap 11 (12-20); Aspartate Amino Transferase 13 U/L (5-31); Bilirubin Total 0.3 mg/dL (0.0-1.0); Blood Urea Nitrogen 13 mg/dL (9-16); Calcium 9.5 mg/dL (8.4-10.2); Carbon Dioxide 23 mmol/L (22-29); Chloride 106 mmol/L (96-108); Creatinine Clr Calc Pharmacy 54.4; Estimated Glomerular Filt Rate > 60; Glucose Random 149 mg/dL (60-115); Magnesium 1.8 mg/dL (1.6-2.6); Potassium 3.7 mmol/L (3.3-5.1); Sodium 136 mmol/L (135-145); Total Protein 6.7 g/dL (6.5-8.0)
[2023-07-21 17:14] LABS: Troponin-I High Sensitivity 7.6 ng/L (<3.5-17.0)
--- NOTE | 2023-07-21 17:20 | PC.NURSE ---
pt sleeping, resp even and unlabored, no distress noted. awaiting ED provider pickup. labs drawn and sent.
--- NOTE | 2023-07-21 17:34 | ED_ITS ---
HPI - Dizziness General Chief Complaint: Dizziness Stated Complaint: DIZZY,SEEN FOR SAME RECENTLY PER EMS Time Seen by Provider: 07/21/23 17:32 Source: patient Mode of arrival: EMS Limitations: no limitations History of Present Illness HPI Narrative: Patient is 78 years old with history of COPD depression hypertension PTSD status post total colectomy just discharged from 2 days ago after overnight stay for weakness and depression where she broke her right wrist after she hit the wall. Comes here as she is still feeling weak feels dehydrated. No nausea no vomiting has occasional diarrhea no fever no chills no cough patient does not think her PTSD/depression causing the main problem at this time Related Data Previous Rx's Medication Instructions Recorded acetaminophen 325 mg tablet 650 mg (2 x 325 mg) PO Q6H PRN 07/10/23 Headache/Pain Mild Scale (1-3) #0 tabs atorvastatin 10 mg tablet 10 mg PO DAILY #14 tabs 07/10/23 clonazepam 0.5 mg tablet 0.5 mg PO BID PRN anxiety attack 07/10/23 #14 tabs clonidine HCl 0.1 mg tablet 0.1 mg PO BID PRN panic attack #14 07/10/23 tabs hydroxyzine HCl 25 mg tablet 25 mg PO Q6H PRN Anxiety #14 tabs 07/10/23 ibuprofen 200 mg tablet 200 mg PO Q8H #0 tabs 07/10/23 lamotrigine 25 mg tablet 25 mg PO BID #14 tabs 07/10/23 lidocaine 4 % topical patch 1 patch transdermal DAILY #7 ea 07/10/23 (Lidocaine Pain Relief) meclizine 25 mg tablet 25 mg PO BID PRN dizziness #14 tabs 07/10/23 metoprolol succinate 25 mg 12.5 mg (1/2 x 25 mg) PO DAILY #7 07/10/23 tablet,extended release 24 hr tabs (Toprol XL) olanzapine 10 mg tablet 10 mg PO BEDTIME #7 tabs 07/10/23 omeprazole 40 mg capsule,delayed 40 mg PO BID@0630,1630 #14 caps 07/10/23 release cefuroxime axetil 250 mg tablet 250 mg PO BID 7 days #14 tabs 07/21/23 Allergies Allergy/AdvReac Type Severity Reaction Status Date / Time adhesive AdvReac Unknown Verified 10/14/22 04:34 aspirin AdvReac Unknown Verified 10/14/22 04:34 epinephrine AdvReac Unknown Verified 10/14/22 04:34 Review of Systems 2 Review of Systems: Yes all other systems are reviewed and are negative PMFSH Past Medical History Onset Date is defined in the Problem List Problems that require an onset date and time if occurred within 24 hrs of arrival to the ED Aortic Dissection and Rupture; Neurologic impairment; Cardiopulmonary Arrest; Endotracheal Intubation; Insertion or Replacement of Mechanical Circulatory Assist Device Medical History C. difficile diarrhea Mitral valve prolapse Tobacco abuse TIA (transient ischemic attack) Prediabetes Hyperlipidemia Depression PTSD (post-traumatic stress disorder) Essential hypertension COPD (chronic obstructive pulmonary disease) Surgical History History of parathyroidectomy History of colectomy Social History Social History Household Members: None Household Members Other:: lives with self Housing: Apartment Do you presently have visiting nurse or other home services: No Alcohol intake: current Alcohol intake frequency: does not drink Comment: Fall risk wristband. Patient Tobacco Use Status: Current everyday Tobacco user Tobacco use type: Cigarette Cigarette Packs Per Day: 3 Cigarettes Per Day: 60.0 Years Smoked: 20 e-Cigarette/Vaping Use: Never Used Second Hand Smoke Exposure: Yes Use of substances other than those prescribed or required for medical reasons: No Substance Use Type: Prescription Drugs and Caffiene Advance Directives: Yes Advance Directives on File: Yes Advance Directives Date on File: 02/08/22 service: No Sexual orientation: Straight/Heterosexual Physical Exam 2 Vital Signs: Vital Signs: Last Vital Signs Temp 98.0 F 07/21/23 22:31 Pulse 55 07/21/23 22:31 Resp 15 07/21/23 22:31 BP 129/60 07/21/23 22:31 Pulse Ox 94 07/21/23 22:31 O2 Del Method Room Air 07/21/23 22:31 BMI result Body Mass Index 22.6 Appearance: Alert. Oriented X3. No acute distress. Eyes: PERRLA, No Nystagmus ENT: Pharynx normal. Oral Mucosa dry Neck: Normal inspection. Neck supple. CVS: Normal heart rate and rhythm. Pulses normal. Respiratory: No respiratory distress. Equal air entry bilateral, no wheezing/rales/rhonchi Abdomen: Soft and nontender. Bowel sounds are present, no mass palpable, no CVA tenderness Skin: Skin warm and dry. Normal skin color. Normal skin turgor. Extremities: No lower extremity edema. No calf tenderness Neuro: Oriented X 3. No motor deficit. No sensory deficit.No cerebellar signs , cranial nerves II-XII intact Medications Administered Discontinued Medications Generic Name Dose Route Start Last Admin Trade Name Freq PRN Reason Stop Dose Admin Cefuroxime Axetil 250 mg 07/21/23 21:59 07/21/23 22:48 Cefuroxime Axetil 250 Mg Tablet PO 07/21/23 22:00 250 mg ONCE ONE Administration Sodium Chloride 1,000 mls @ 999 mls/hr 07/21/23 17:42 07/21/23 21:50 Ns IV 07/21/23 18:42 Infused .Q1H1M ONE Infusion Medical Decision Making Medical Decision Making [facility] Narrative: Patient is stable labs except more than 50 wbc's in the urine with leuko esterase positive although bacteria was not seen will treat patient with Ceftin for 7 days advised to drink plenty of fluid Differential Diagnosis Differential Diagnoses: The differential diagnosis associated with the presentation includes Dehydration/UTI Lab Data [facility] Lab Attestation statement: I reviewed the patient's lab results. 07/21/23 16:46 07/21/23 16:46 Labs: Lab Results 07/21/23 07/21/23 07/21/23 Range/Units 16:09 16:26 16:46 WBC 8.5 (4.8-10.8) X10*3/uL RBC 4.24 (4.20-5.50) X10*6/uL Hgb 13.1 (12.0-16.0) g/dl Hct 36.9 L (37.0-47.0) % MCV 87.0 (80.0-98.0) fL MCH 30.9 (27.0-33.0) pg MCHC 35.5 H (31.0-35.0) g/dl RDW 13.6 (11.0-16.0) % Plt Count 279 (160-400) X10*3/uL MPV 9.4 (9.4-12.3) fL Immature Gran % (Auto) 0.5 H (0.0-0.4) % Neut % (Auto) 64.1 (45-73) % Lymph % (Auto) 24.5 (20-40) % [place] % (Auto) 6.7 (2-11) % Eos % (Auto) 3.6 (0-4) % Baso % (Auto) 0.6 (0-2) % Lymph # (Auto) 2.1 (1.2-4.9) X10*3/uL [place] # (Auto) 0.6 (0.1-1.2) X10*3/uL Eos # (Auto) 0.3 (0.0-0.4) X10*3/uL Baso # (Auto) 0.1 (0.0-0.2) X10*3/uL Abs Immat Gran (auto) 0.04 H (0.00-0.03) X10*3/uL Absolute Neuts (auto) 5.5 (2.0-8.3) x10*3/uL Absolute Nucleated RBC 0.000 (0.0-0.012) X10*3/uL Nucleated RBC % (auto) 0.0 (0.0-0.2) /100WBC Sodium 136 (135-145) mmol/L Potassium 3.7 (3.3-5.1) mmol/L Chloride 106 (96-108) mmol/L Carbon Dioxide 23 (22-29) mmol/L Anion Gap 11 L (12-20) BUN 13 (9-16) mg/dL Creatinine 0.81 (0.5-1.4) mg/dL Estim Creat Clear Calc 54.4 Estimated GFR > 60 Random Glucose 149 H (60-115) mg/dL Calcium 9.5 (8.4-10.2) mg/dL Phosphorus 4.4 (2.7-4.5) mg/dL Magnesium 1.8 (1.6-2.6) mg/dL Total Bilirubin 0.3 (0.0-1.0) mg/dL AST 13 (5-31) U/L ALT 10 (0-31) U/L Alkaline Phosphatase 73 (39-117) U/L Troponin I High Sens 7.6 (<3.5-17.0) ng/L Total Protein 6.7 (6.5-8.0) g/dL Albumin 3.6 (3.5-5.0) g/dL Urine Color Yellow Urine Appearance Clear Urine pH 7.0 (5.0-9.0) Ur Specific [place] 1.010 (1.005-1.025) Urine Protein Negative (Neg-Trace) mg/dL Urine Glucose (UA) Negative (Negative) mg/dL Urine Ketones Negative (Negative) mg/dL Urine Blood Negative (Negative) Urine Nitrite Negative (Negative) Ur Leukocyte Esterase Large (3+) H (Negative) Urine RBC 0-2 (0-2) /HPF Urine WBC >50 H (0-5) /HPF Ur Squamous Epith Cells 0-2 (0-2) /HPF Urine Bacteria None Seen (None Seen) Hyaline Casts 0-2 (0-2) /LPF COVID-19 (LANE) Negative (Negative) COVID-19 Clin Com See Note Discharge Plan Discharge Clinical Impression: Acute UTI (urinary tract infection), Weakness Patient Disposition: Home, Self-Care Instructions: Urinary Tract Infection in Women (ED), Weakness (ED) Additional Instructions: Drink plenty of fluids Take antibiotic as prescribed for possible urinary tract infection Follow with PCP if not better Prescriptions: New cefuroxime axetil 250 mg tablet 250 mg PO BID 7 Days Qty: 14 0RF No Action clonidine HCl 0.1 mg Tablet 0.1 mg PO BID PRN (Reason: panic attack) Qty: 14 0RF Protocol: Hold for SBP< HOLD for SBP < : 90 acetaminophen 325 mg Tablet 650 mg PO Q6H PRN (Reason: Headache/Pain Mild Scale (1-3)) Qty: 0 0RF atorvastatin 10 mg Tablet 10 mg PO DAILY Qty: 14 0RF hydroxyzine HCl 25 mg Tablet 25 mg PO Q6H PRN (Reason: Anxiety) Qty: 14 0RF olanzapine 10 mg Tablet 10 mg PO BEDTIME Qty: 7 0RF lamotrigine 25 mg Tablet 25 mg PO BID Qty: 14 0RF ibuprofen 200 mg Tablet 200 mg PO Q8H Qty: 0 0RF lidocaine [Lidocaine Pain Relief] 4 % Adhesive Patch,Medicated 1 patch transdermal DAILY Qty: 7 0RF Protocol: Apply to: Apply to: lower back omeprazole 40 mg Capsule,Delayed Release(Dr/Ec) 40 mg PO BID@0630,1630 Qty: 14 0RF clonazepam 0.5 mg tablet 0.5 mg PO BID PRN (Reason: anxiety attack) Qty: 14 0RF meclizine 25 mg tablet 25 mg PO BID PRN (Reason: dizziness) Qty: 14 0RF metoprolol succinate [Toprol XL] 25 mg tablet extended release 24 hr 12.5 mg PO DAILY Qty: 7 0RF
[2023-07-21] MEDS: 0.9 % Sodium Chloride 1,000 ML 999 ML IV (18:10)
[2023-07-21 18:22] LABS: Phosphorus 4.4 mg/dL (2.7-4.5)
[2023-07-21 19:23] LABS: Bacteria Urine None Seen (None Seen); Hyaline Casts Urine 0-2 /LPF (0-2); RBC Urine 0-2 /HPF (0-2); Squamous Epithelial Cell Urine 0-2 /HPF (0-2); UACC Culture Trigger YES; WBC Urine >50 /HPF (0-5)
[2023-07-21 22:31] VITALS: BP 129/60; PULSE 55; RESP 15; TEMP 36.7; O2SAT 94
[2023-07-21] MEDS: cefuroxime axetiL 250 MG TABLET PO (22:48)
--- NOTE | 2023-07-22 00:10 | PC.NURSE ---
pt up for discharge. pt pkay by charge attendant to sleep till am to find ride in am. pt states last time pt was here and discharged need lyft services. per charge attendant lyft unavailable at this time
[2023-07-22 06:14] VITALS: BP 137/66; PULSE 61; RESP 14; TEMP 35.9; O2SAT 94
== END 2023-07-22 10:38 | disposition home or self-care (01) ==
PROVIDERS: Emergency Medicine; Emergency Provider Internal Medicine
DX: N39.0 Urinary tract infection, site not specified (principal); R42 Dizziness and giddiness; R53.1 Weakness; R41.82 Altered mental status, unspecified; R00.1 Bradycardia, unspecified; I44.7 Left bundle-branch block, unspecified; R19.7 Diarrhea, unspecified; F17.210 Nicotine dependence, cigarettes, uncomplicated; Z79.899 Other long term (current) drug therapy; Z86.73 Personal history of transient ischemic attack (TIA), and cerebral infarction without residual deficits; Z11.52 Encounter for screening for COVID-19
CPT/HCPCS: 36415; 80053; 81001; 81003; 83735; 84100; 84484; 85025; 87086; 87635; 93005; 96360; 96361; 99285

== ENCOUNTER → 2023-07-21 15:08 | Outpatient (BNV) | payer MEDICARE, SELFPAY | PROVIDERS: Emergency Provider Internal Medicine; Visit Provider Internal Medicine | DX: R00.1 Bradycardia, unspecified (principal); R94.31 Abnormal electrocardiogram [ECG] [EKG] | CPT/HCPCS: 93010 ==

== ENCOUNTER 2023-08-26 15:10 | Inpatient (IN) | payer MEDICARE, SELFPAY ==
--- OUTSIDE RECORDS SUMMARY | 2023-08-26 15:14 | XMS_ITS | Continuity of Care Document ---
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 Role Phone Morgan FREITAS, Josiah Primary Care Physici an Encounter [facility] Date(s): 03/29/21 - 03/29/[address] [address] Discharge Disposition: A-D/C Home Attending Physician: Fabian Mejia MD Admitting Physician: Fabian Mejia MD Referring Physician: Fabian Mejia MD Allergies, Adverse Reactions, Alerts Substance Reaction Severity Status aspirin petechiae -skin Active epinephrine fainting,rapid heartbeat Act deanna Adhesive Bandage Hives Hives Active Immunizations Given and Recorded Vaccine Date Status Refusal Reason SARS-CoV-2 (COVID-19) mRNA-1273 vaccine 10/13/20 R ecorded SARS-CoV-2 (COVID-19) mRNA-1273 vaccine 09/16/20 R ecorded pneumococcal 23-valent vaccine 06/13/18 Recorded pneumococcal 23-valent vaccine 06/13/18 Recorded pneumococcal 23-valent vaccine 03/07/09 Recorded Influenza Virus Vaccine (oldterm) 06/13/18 Recorde d Influenza Virus Vaccine (oldterm) 06/13/18 Recorde d pneumococcal 13-valent vaccine 06/25/17 Recorded pneumococcal 13-valent vaccine 06/25/17 Recorded influ virus vac, H1N1, inactive(oldterm) 11/10/09 Recorded influ virus vac, H1N1, inactive(oldterm) 11/10/09 Recorded Medications acetaminophen 325 mg oral tablet 650 mg, By Mouth, Every 6 hours, PRN, /Headache, Refills 0, Maintenance, Pain , Mild, 01/20/21 15:09:00 EDT, Partial fill upon patient request if the prescription is for a schedule II opioid drug. Start Date: 01/20/21 Status: Ordered aspirin 81 mg oral delayed release tablet 81 mg, 1, tablet, By Mouth, Daily, Refills 0, Maintenance, 05/18/20 13:45:00 EST Start Date: 05/18/20 Status: Ordered FLUoxetine 60 mg oral tablet 1 tablet = 60 mg, By Mouth, Daily in AM, # 30 tablet, 0 Refills, Maintenance, 01/20/21 15:10:00 EDT, Tablet, Partial fill upon patient request if the prescription is for a schedule II opioid drug., 168, cm, 01/20/21 15:04:00 EDT, Height, 74.6, kg, 07... Start Date: 01/20/21 Status: Ordered fluticasone-vilanterol Inhalation, Daily, 0 Refills, Maintenance, 01/20/21 15:07:00 EDT, Inhaler, Partial fill upon patient request if the prescription is for a schedule II opioid drug. Start Date: 01/20/21 Status: Ordered KlonoPIN 0.5 mg oral tablet 0.5 tablet = 0.25 mg, By Mouth, 2 times a day, give at 0700 and 1700, # 30 tablet, 0 Refills, Maintenance, 01/20/21 15:09:00 EDT, Tablet, Partial fill upon patient request if the prescription is for a schedule II opioid drug., 168, cm, 01/20/21 15:04:... Start Date: 01/20/21 Status: Ordered Maalox Plus Liquid 30 mL, By Mouth, Every 4 hours, PRN Dyspepsia, 0 Refills, Maintenance, 01/20/21 15:09:00 EDT, Suspension, Partial fill upon patient request if the prescription is for a schedule II opioid drug. Start Date: 01/20/21 Status: Ordered metoprolol 25 mg oral tablet 12.5 mg, 0.5, tablet, By Mouth, Daily, # 180 tablet, Refills 0, Maintenance, 09/20/16 8:52:44 Start Date: 09/20/16 Status: Ordered RisperDAL 1 mg oral tablet 1 mg, 1, tablet, By Mouth, Daily in AM, # 30 tablet, Refills 0, Tot. Refills 0, Maintenance, 01/20/21 15:10:00 EDT, Do Not Route, Partial fill upon patient request if the prescription is for a schedule II opioid drug., 168, cm, 01/20/21 15:04:00 EDT,... Start Date: 01/20/21 Status: Ordered risperiDONE 2 mg oral tablet 2 mg, 1, tablet, By Mouth, Daily at bedtime, # 30 tablet, Refills 0, Tot. Refills 0, Maintenance, 01/20/21 15:11:00 EDT, Do Not Route, Partial fill upon patient request if the prescription is for a schedule II opioid drug., 168, cm, 01/20/21 15:04:00... Start Date: 01/20/21 Status: Ordered rosuvastatin 10 mg oral tablet 1 tablet = 10 mg, By Mouth, Daily, # 30 tablet, 0 Refills, Maintenance, 01/20/21 15:12:00 EDT, Tablet, Partial fill upon patient request if the prescription is for a schedule II opioid drug., 168, cm, 01/20/21 15:04:00 EDT, Height, 74.6, kg, 01/10/21... Start Date: 01/20/21 Status: Ordered tiotropium 1.25 mcg/inh inhalation aerosol 2 puffs, Inhalation, Daily, # 2 each, 0 Refills, Maintenance, 01/20/21 15:13:00 EDT, Aerosol, Partial fill upon patient request if the prescription is for a schedule II opioid drug., 168, cm, 01/20/21 15:04:00 EDT, Height, 74.6, kg, 01/10/21 18:29:00... Start Date: 01/20/21 Status: Ordered Problem List Condition Effective Dates Status Health Status Inform ant Bipolar 1 disorder(Confirmed) Active Bradycardia(Confirmed) 1 Active Pacemaker(Confirmed) Active Chronic obstructive lung disease(Confirmed) 2 Active Coronary atherosclerosis(Confirmed) Active Diabetes(Confirmed) Active Hypercalcemia(Confirmed) Active Hyperlipidemia(Confirmed) Active Hyperparathyroidism(Confirmed) Active Hypertensive disorder(Confirmed) Active Balance problem(Confirmed) Active Osteopenia(Confirmed) Active Posttraumatic stress disorder(Confirmed) Active Major depression, recurrent(Confirmed) Active Smokes tobacco daily(Confirmed) Active Solitary nodule of lung(Confirmed) Active TIA (transient ischemic attack)(Confirmed) Active 1severe: resulted in pacemaker placement. 2managed by Dr Gomez Vital Signs Most recent to oldest [Reference Range]: 1 2 3 Height 169 cm (03/29/21 7:28 AM) Oxygen Saturation [94-100 %] 96 % (03/29/21 10:10 AM) 95 % (03/29/21 9:47 AM) 94 % (03/29/21 9:41 AM) Pulse Rate [55-90 bpm] 73 bpm (03/29/21 7:28 AM) Blood Pressure [90-138/55-84 mm Hg] 156/76mm Hg *H* (03/29/21 10:10 AM) 164/86mm Hg *H* (03/29/21 9:41 AM) 161/77mm Hg *H* (03/29/21 9:36 AM) Respiratory Rate [16-30 br/min] 18 br/min (03/29/21 10:10 AM) 24 br/min (03/29/21 9:47 AM) 16 br/min (03/29/21 9:41 AM) Temperature [96.8-100.4 DegF] 97.8 DegF (03/29/21 9:13 AM) 98.6 DegF (03/29/21 7:28 AM) Mode of Delivery (Oxygen) Room air (03/29/21 10:10 AM) Room air (03/29/21 9:47 AM) Room air (03/29/21 9:41 AM) Blood pressure sites Arm, right (03/29/21 10:10 AM) Arm, right (03/29/21 9:41 AM) Arm, right (03/29/21 9:36 AM) Temperature Route Temporal (03/29/21 9:13 AM) Temporal (03/29/21 7:28 AM) Dry Weight 74 kg (03/29/21 7:28 AM) Social History Social History Type Response Smoking Status 10 or more cigarette s (1/2 pack or more)/day in last 30 days; Other: 21 yr; entered on: 11/21/18 Sex
--- OUTSIDE RECORDS SUMMARY | 2023-08-26 15:14 | XMS_ITS | Continuity of Care Document ---
Author Name Unknown Organization [facility] Address [address] [place] [address]- Care Team Providers Care Adzing And Boring Machine Feeder Name Role Phone Morgan FREITAS, Josiah Primary Care Physici an Encounter [facility] Date(s): 03/30/21 - 06/02/[address] [id number] Attending Physician: Fabian Mejia MD Admitting Physician: Fabian Mejia MD Allergies, Adverse Reactions, [...] 13:45:00 EST Start Date: 05/18/20 Status: Ordered chlorproMAZINE 50 mg oral tablet TAKE ONE TABLET BY MOUTH AT BEDTIME Start Date: 05/24/21 Status: Ordered clonazePAM 0.5 mg oral tablet 0.5 tablet = 0.25 mg, By Mouth, 2 times a day, PRN Anxiety, 0 Refills, Maintenance, 04/20/21 9:58:00 EDT, Tablet, Partial fill upon patient request if the prescription is for a schedule II opioid drug. Start Date: 04/20/21 Status: Ordered cloNIDine 0.2 mg oral tablet 0.2 mg, 1, tablet, By Mouth, 2 times a day, PRN, Refills 0, Maintenance, Anxiety, 04/20/21 9:55:00 EDT, Partial fill upon patient request if the prescription is for a schedule II opioid drug. Start Date: 04/20/21 Status: Ordered FLUoxetine 60 mg oral tablet 1 tablet = 60 mg, By Mouth, Daily in AM, # 30 tablet, 0 Refills, Maintenance, 01/20/21 15:10:00 EDT, Tablet, Partial fill upon patient request if the prescription is for a schedule II opioid drug., 168, cm, 01/20/21 15:04:00 EDT, Height, 74.6, kg, ... Start Date: 01/20/21 Status: Ordered fluticasone-vilanterol Inhalation, Daily, 0 Refills, Maintenance, 01/20/21 15:07:00 EDT, Inhaler, Partial fill upon patient request if the prescription is for a schedule II opioid drug. Start Date: 01/20/21 Status: Ordered Lidoderm 5% film 1 patch, Topically, Daily, # 14 patch, 0 Refills, Maintenance, 05/17/21 19:53:00 EST, [facility], Partial fill upon patient request if the prescription is for a schedule II opioid drug., 1 patch Topically Daily,x14 days, 169, cm, ... Start Date: 05/17/21 Stop Date: 05/31/21 Status: Ordered Maalox Plus Liquid 30 mL, [...] is for a schedule II opioid drug., 168 cm, 01/20/21 15:04:00 EDT,... Start Date: 01/20/21 Status: Ordered risperiDONE 2 mg oral tablet 2 mg, 1, tablet, By Mouth, Daily at bedtime, # 30 tablet, Refills 0, Tot. Refills 0, Maintenance, 01/20/21 15:11:00 EDT, Do Not Route, Partial fill upon patient request if the prescription is for a schedule II opioid drug., Toya, cm, 01/20/21 15:04:00... Start Date: 01/20/21 Status: [...] is for a schedule II opioid drug., Toya cm, 01/20/21 15:04:00 EDT, Height, 74.6, kg, 01/10/21 18:29:00... Start Date: 01/20/21 Status: Ordered traZODone 50 mg oral tablet Refills 0, Maintenance, 05/24/21 11:16:00 EST, Partial fill upon patient request if the prescription is for a schedule II opioid drug. Start Date: 05/24/21 Status: Ordered Problem List Condition Effective Dates [...] in pacemaker placement. 2managed by Dr Gomez Social History Social History Type Response Smoking Status 10 or more cigarette s (1/2 pack or more)/day in last 30 days; Other: 21 yr; entered on: 11/21/18 Sex
--- OUTSIDE RECORDS SUMMARY | 2023-08-26 15:14 | XMS_ITS | Continuity of Care Document ---
Author Name Unknown Organization [facility] Address [address], [address], [address] [place] [address]- Care Team Providers Care Consulting Solution Manager Name Role Phone Morgan FREITAS, Josiah Primary Care Physici an Encounter [facility] Date(s): 05/18/20 - 06/17/20 [facility] [address], [address], [address] [place] [id number]- Attending Physician: Admkimberly, [id number] Admitting Physician: Admtr, Ar8 Referring Physician: Admtr, Ar8 Allergies, Adverse Reactions, Alerts Substance Reaction Severity Status aspirin petechiae -skin Active Adhesive Bandage Hives Hives Active epinephrine fainting,rapid heartbeat Act deanna Immunizations Given and Recorded Vaccine Date Status Refusal Reason pneumococcal 23-valent vaccine 06/13/18 Recorded pneumococcal 23-valent vaccine 06/13/18 Recorded pneumococcal 23-valent vaccine 03/07/09 Recorded Influenza Virus Vaccine (oldterm) 06/13/18 Recorde d Influenza Virus Vaccine (oldterm) 06/13/18 Recorde d pneumococcal 13-valent vaccine 06/25/17 Recorded pneumococcal 13-valent vaccine 06/25/17 Recorded influ virus vac, H1N1, inactive(oldterm) 11/10/09 Recorded influ virus vac, H1N1, inactive(oldterm) 11/10/09 Recorded Medications aspirin 81 mg oral delayed release tablet 81 mg, 1, tablet, By Mouth, Daily, Refills 0, Maintenance, 05/18/20 13:45:00 EST Start Date: 05/18/20 Status: Ordered Breo Ellipta 100 mcg-25 mcg/inh inhalation powder RESPIRATORY (INHALATION), POWDER, METERED, 2 Refill(s),, 0 Refills, 11/18/18 8:56:00 EDT Start Date: 11/18/18 Status: Ordered clonazePAM 0.5 mg oral tablet TAKE 1 TABLET BY MOUTH EVERY MORNING AND AT BEDTIME. Start Date: 03/03/20 Status: Ordered cloNIDine 0.1 mg oral tablet 0.1 mg, 1, tablet, By Mouth, 2 times a day, Refills 0, Maintenance, 05/18/20 13:45:00 EST Start Date: 05/18/20 Status: Ordered FLUoxetine 20 mg oral capsule 20 mg, 1, capsule, By Mouth, Daily Start Date: 09/14/19 Status: Ordered Incruse Ellipta 62.5 mcg/inh inhalation powder 1 each, Inhalation, Every 24 hours, doses should be taken at least 24 hours apart, # 30 each, 0 Refills, Maintenance, 06/06/17 16:00:29 EST, Powder Start Date: 06/06/17 Status: Ordered metoprolol 25 mg oral tablet 12.5 mg, 0.5, tablet, By Mouth, Daily, # 180 tablet, Refills 0, Maintenance, 09/20/16 8:52:44 Start Date: 09/20/16 Status: Ordered RisperDAL 1 mg oral tablet 2 mg, 2, tablet, By Mouth, Daily at bedtime, ORAL, TABLET, 0 Refill(s),, Refills 0, 02/04/19 21:16:00 EDT Start Date: 02/04/19 Status: Ordered risperiDONE 1 mg oral tablet 1 mg, 1, tablet, By Mouth, Daily, Refills 0, Maintenance, 03/07/20 11:22:00 EDT Start Date: 03/07/20 Status: Ordered rosuvastatin 10 mg oral tablet 1 tablet = 10 mg, By Mouth, Daily, # 90 tablet, 1 Refills, Maintenance, 12/24/19 9:33:00 EDT, Tablet, [facility], 169, cm, 12/15/19 13:44:00 EDT, Height, 79, kg, 11/25/19 2:03:00 EDT, Dry Weight Start Date: 12/24/19 Stop Date: 06/21/20 Status: Ordered Wheeled walker Wheeled walker, See Instructions, # 1 each, Refills 0, Tot. Refills 0, Maintenance, Use as directed, 10/28/19 9:17:00 EDT, Supply Start Date: 4/22/20 Status: Ordered Problem List Condition Effective Dates Status Health Status Inform ant Bipolar 1 disorder(Confirmed) Active Bradycardia(Confirmed) 1 Active Pacemaker(Confirmed) Active Chronic obstructive lung disease(Confirmed) 2 Active Coronary atherosclerosis(Confirmed) Active Diabetes(Confirmed) Active Hypercalcemia(Confirmed) Active Hyperlipidemia(Confirmed) Active Hyperparathyroidism(Confirmed) Active Hypertensive disorder(Confirmed) Active Balance problem(Confirmed) Active Mammography abnormal(Confirmed) Active Osteopenia(Confirmed) Active Posttraumatic stress disorder(Confirmed) Active [...]
--- OUTSIDE RECORDS SUMMARY | 2023-08-26 15:14 | XMS_ITS | Continuity of Care Document ---
Author Name Unknown Organization [facility] Address [address] [place] [address]- Care Team Providers Care Global Recruiter Name Role Phone Morgan FREITAS, Josiah Primary Care Physici an Encounter [facility] Date(s): 02/01/21 - 02/01/[address] [id number] Discharge Disposition: A-D/C Home Attending Physician: [...] Range]: 1 2 3 Height 169 cm (02/01/21 8:47 AM) Weight 74.5 kg (02/01/21 8:47 AM) Oxygen Saturation [94-100 %] 92 % *L* (02/01/21 10:23 AM) 93 % *L* (02/01/21 10:08 AM) 91 % *L* (02/01/21 9:53 AM) Pulse Rate [55-90 bpm] 54 bpm *L* (02/01/21 8:47 AM) Body Mass Index [18.5-24.99] 26.08 *H* (02/01/21 8:47 AM) Blood Pressure [90-138/55-84 mm Hg] 149/72mm Hg *H* (02/01/21 10:23 AM) 137/66mm Hg (02/01/21 10:08 AM) 171/81mm Hg *H* (02/01/21 9:53 AM) Respiratory Rate [16-30 br/min] 16 br/min (02/01/21 10:23 AM) 16 br/min (02/01/21 10:08 AM) 21 br/min (02/01/21 9:53 AM) Temperature [96.8-100.4 DegF] 98.4 DegF (02/01/21 9:53 AM) 97.2 DegF (02/01/21 8:47 AM) Mode of Delivery (Oxygen) Room air (02/01/21 9:53 AM) Room air (02/01/21 8:47 AM) Blood pressure sites Arm, left (02/01/21 8:47 AM) Temperature Route Temporal (02/01/21 9:53 AM) Temporal (02/01/21 8:47 AM) Social History Social History Type Response Smoking Status 10 or more cigarette s (1/2 pack or more)/day in last 30 days; Other: 21 yr; entered on: 11/21/18 Sex
--- OUTSIDE RECORDS SUMMARY | 2023-08-26 15:14 | XMS_ITS | Continuity of Care Document ---
Author Name Unknown Organization [facility] Address [address] [place] [address]- Care Team Providers Care Mexican Food Maker Hand Name Role Phone Morgan FREITAS, Josiah Primary Care Physici an Encounter [facility] Date(s): 03/01/21 - 03/01/[address] [id number] Discharge Disposition: A-D/C Home Attending Physician: [...] Range]: 1 2 3 Height 169 cm (03/01/21 6:59 AM) Oxygen Saturation [94-100 %] 92 % *L* (03/01/21 9:00 AM) 96 % (03/01/21 8:45 AM) 95 % (03/01/21 8:30 AM) Pulse Rate [55-90 bpm] 72 bpm (03/01/21 6:59 AM) Blood Pressure [90-138/55-84 mm Hg] 153/85mm Hg *H* (03/01/21 9:00 AM) 133/78mm Hg (03/01/21 8:45 AM) 135/77mm Hg (03/01/21 8:30 AM) Respiratory Rate [16-30 br/min] 23 br/min (03/01/21 9:00 AM) 17 br/min (03/01/21 8:45 AM) 13 br/min *L* (03/01/21 8:30 AM) Temperature [96.8-100.4 DegF] 98.2 DegF (03/01/21 8:30 AM) 97.8 DegF (03/01/21 6:59 AM) Liters per Minute 6 L/min (03/01/21 8:30 AM) Mode of Delivery (Oxygen) Room air (03/01/21 9:00 AM) Simple face mask (03/01/21 8:30 AM) Room air (03/01/21 6:59 AM) Blood pressure sites Arm, left (03/01/21 6:59 AM) Temperature Route Temporal (03/01/21 6:59 AM) Dry Weight 74 kg (03/01/21 6:59 AM) Social History Social History Type Response Smoking Status 10 or more cigarette s (1/2 pack or more)/day in last 30 days; Other: 21 yr; entered on: 11/21/18 Sex
[2023-08-26 15:45] VITALS: BP 174/91; PULSE 95; RESP 18; TEMP 36.2; O2SAT 97
[2023-08-26 15:46] VITALS: BP 174/91; PULSE 95; RESP 18; TEMP 36.2; O2SAT 97
[2023-08-26 16:29] VITALS: BMI 21.6
[2023-08-26 17:00] VITALS: BP 138/76; PULSE 98; RESP 18
--- NOTE | 2023-08-26 18:13 | HO.PM.IMCN ---
History of Present Illness Data of Consult Service Date: 08/26/23 Requesting physician: Shahida Azevedo Primary Care Provider: Josiah Mora MD HPI Reason for consult: medical H&P 76-year-old female with a history of depression, PTSD, COPD who was [place] [facility] with depression and SI. Patient has history of total colectomy and some baseline diarrhea PMFSH Medical History C. difficile diarrhea Mitral valve prolapse Tobacco abuse TIA (transient ischemic attack) Prediabetes Hyperlipidemia Depression PTSD (post-traumatic stress disorder) Essential hypertension COPD (chronic obstructive pulmonary disease) Surgical History History of parathyroidectomy History of colectomy Social History Household Members: None Household Members Other:: lives with self Housing: Apartment Do you presently have visiting nurse or other home services: No Alcohol intake: current Alcohol intake frequency: does not drink Comment: Fall risk wristband. Patient Tobacco Use Status: Current everyday Tobacco user Tobacco use type: Cigarette Cigarette Packs Per Day: 3 Cigarettes Per Day: 60.0 Years Smoked: 20 e-Cigarette/Vaping Use: Never Used Second Hand Smoke Exposure: Yes Substance Use Type: Prescription Drugs and Caffiene Advance Directives: Yes Advance Directives on File: Yes Advance Directives Date on File: 02/08/22 service: No Sexual orientation: Straight/Heterosexual Meds Allergies Allergy/AdvReac Type Severity Reaction Status Date / Time adhesive AdvReac Unknown Verified 10/14/22 04:34 aspirin AdvReac Unknown Verified 10/14/22 04:34 epinephrine AdvReac Unknown Verified 10/14/22 04:34 Active Medications: Current Medications Acetaminophen (Acetaminophen 325 Mg Tablet) 650 mg PO Q6H PRN PRN Reason: Headache/Pain Mild Scale (1-3) Al Hydroxide/Mg Hydroxide (Magnesium Hydrox/Alum Hydrox 30 Ml Oral.Susp) 30 ml PO Q6H PRN PRN Reason: Heartburn/Nausea Hydroxyzine HCl (Hydroxyzine Hcl 25 Mg Tablet) 25 mg PO Q6H PRN PRN Reason: Anxiety Magnesium Hydroxide (Milk Of Magnesia 30 Ml Oral.Susp) 30 ml PO DAILY PRN PRN Reason: Constipation Trazodone HCl (Trazodone Hcl 50 Mg Tablet) 50 mg PO BEDTIME PRN PRN Reason: Insomnia Home Medications Medication Instructions Recorded Confirmed Last Taken Type clonazepam 0.5 mg tablet (Klonopin) 0.5 mg PO BID PRN anxiety attack 08/26/23 08/26/23 Unknown History Physical Exam Vital Signs and Narrative: Vital Signs: Last Vital Signs Temp 97.2 F 08/26/23 15:46 Pulse 95 08/26/23 15:46 Resp 18 08/26/23 15:46 BP 174/91 H 08/26/23 15:46 Pulse Ox 97 08/26/23 15:46 O2 Del Method Room Air 08/26/23 15:46 BMI result Body Mass Index 21.6
--- NOTE | 2023-08-26 19:20 | PC.ADMIT ---
Addendum entered by Nicholas White RN 08/26/23 22:45: pt arrived on unit 08/26/23 at 1515 per [facility] report. legal status: CV, Psych Diagnosis: Bipolar, Hx Depression and PTSD, pt was A&O(3), pleasant and cooperative, pt confused and disorganized thought process at times, pt hyperverbal. pt makes good eye contact, pt contracts for safety, denies SI, HI, AH, VH, med Hx Mitral Valve Prolapse, TIA, HTN, COPD, Prediabetes, Hyperlipidemia, pt reports having a walker at home but declined to use one here, pt ambulates independently with a steady gait at this time. Pt denies ETOH or elicit drug use Original Note: Odessa arrived to the unit via stretcher from ED/C, prior ED, from [facility]. She said she went to the ED for increased confusion and thought she was having a stroke. Odessa was medically cleared, no signs of stroke noted. On initial assessment pt oriented to self, date, day, situation, c/o poor sleeping at night. VS: 174/91, P 95, R 18, T 97.2, O2sat 97% on RA. BP re-check 138/76, P 98. Skin check completed. Pt has sling with strings to right forearm. Denies suicidal thoughts. Denies psych symptoms, denies pain. Had BM today. C/o poor appetite, but consumed 100% for supper. Ambulates independently, gait steady.
[2023-08-26] MEDS: hydrOXYzine HCL 25 MG TABLET PO (22:25)
[2023-08-26] MEDS: traZODone HCL 50 MG TABLET PO (22:25)
[2023-08-27 08:01] LABS: Alanine Aminotransferase 16 U/L (0-31); Alkaline Phosphatase 84 U/L (39-117); Anion Gap 14 (12-20); Aspartate Amino Transferase 26 U/L (5-31); Bilirubin Total 0.3 mg/dL (0.0-1.0); Blood Urea Nitrogen 19 mg/dL (9-16); Calcium 9.4 mg/dL (8.4-10.2); Carbon Dioxide 26 mmol/L (22-29); Chloride 101 mmol/L (96-108); Cholesterol 231 mg/dL (<200); Creatinine Clr Calc Pharmacy 52.4; Estimated Glomerular Filt Rate > 60; Glucose Fasting 102 mg/dL (60-99); HDL Cholesterol 59 mg/dL (>40); LDL Cholesterol Calculated 140 mg/dL (<100); Potassium 4.4 mmol/L (3.3-5.1); Sodium 137 mmol/L (135-145); Total Protein 7.6 g/dL (6.5-8.0); Triglycerides 160 mg/dL (<150)
[2023-08-27 08:05] VITALS: BP 144/65; PULSE 87; RESP 18; TEMP 36.4; O2SAT 97
[2023-08-27 08:13] LABS: Thyroid Stimulating Hormone 1.76 uIU/mL (0.32-4.0)
[2023-08-27 08:19] LABS: Vitamin B12 435 pg/mL (200-900)
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
--- NOTE | 2023-08-27 11:09 | P.CONHOSP_ITS ---
History of Present Illness Data of Consult Service Date: 08/27/23 Primary Care Provider: Josiah Mora MD HPI 78-year-old woman with a history of COPD, tobacco use, prediabetes, hyperlipidemia, depression, anxiety admitted to [facility] for mental health care. Patient has no acute medical complaints. Labs within acceptable limits, vital signs stable. She denied chest pain, shortness breast, nausea, vomiting, diarrhea. She was transferred from [facility] to [facility] for further treatment of depression and anxiety. Review of Systems 2 Review of Systems: Denies any recent fever chills or decrease in appetite respiratory denies any shortness of breath or cough cardiovascular denied chest pain gastrointestinal denies any dysphagia abdominal pain nausea vomiting or diarrhea genitourinary denies any dysuria frequency or hematuria musculoskeletal denies any joint pain or swelling neuropsych denies any weakness or seizures all other systems reviewed are negative [facility] Medical History Pacemaker FH: cholecystectomy Lung nodule Syncope Osteopenia Hyperparathyroidism Bipolar disorder C. difficile diarrhea Mitral valve prolapse Tobacco abuse TIA (transient ischemic attack) Prediabetes Hyperlipidemia Depression PTSD (post-traumatic stress disorder) Essential hypertension COPD (chronic obstructive pulmonary disease) Surgical History History of appendectomy History of parathyroidectomy History of colectomy Social History Household Members: None Household Members Other:: lives with self Housing: Apartment Do you presently have visiting nurse or other home services: No Alcohol intake: current Alcohol intake frequency: does not drink Comment: Fall risk wristband. Patient Tobacco Use Status: Current everyday Tobacco user Tobacco use type: Cigarette Cigarette Packs Per Day: 3 Cigarettes Per Day: 4 Years Smoked: >30 years Smoked in Last 30 Days: Yes e-Cigarette/Vaping Use: Never Used Patient Interested in Nicotine Replacement: No Patient Given Instructions on How to Stop Smoking: No Second Hand Smoke Exposure: No Use of substances other than those prescribed or required for medical reasons: No Substance Use Type: Prescription Drugs and Caffiene Currently Displaying Signs/Symptoms of Drug Intoxication Withdrawal: No Any prior treatment program specific to substance use: No Have you been hit, kicked, punched, or otherwise hurt by someone within the past year? If so, by whom?: No Do you feel safe in your current relationship?: No Current Relationship Is there a partner from a previous relationship who is making you feel unsafe now?: No Are you made to feel afraid or neglected: No Spiritual Healthcare Practices: generally spiritual Advance Directives: Yes Advance Directives on File: Yes Advance Directives Date on File: 02/08/22 Do you have thoughts of harming others: None Do you have a plan to hurt others: No Plan Recently lost weight without trying: No Eating poorly because of decreased appetite: No Nutrition Risks: No Nutritional Risk Patient : No : No Poor oral hygiene: No service: No Sexual orientation: Straight/Heterosexual Meds Allergies Allergy/AdvReac Type Severity Reaction Status Date / Time adhesive AdvReac Unknown Verified 10/14/22 04:34 aspirin AdvReac Unknown Verified 10/14/22 04:34 epinephrine AdvReac Unknown Verified 10/14/22 04:34 Active Medications: Current Medications Acetaminophen (Acetaminophen 325 Mg Tablet) 650 mg PO Q6H PRN PRN Reason: Headache/Pain Mild Scale (1-3) Al Hydroxide/Mg Hydroxide (Magnesium Hydrox/Alum Hydrox 30 Ml Oral.Susp) 30 ml PO Q6H PRN PRN Reason: Heartburn/Nausea Hydroxyzine HCl (Hydroxyzine Hcl 25 Mg Tablet) 25 mg PO Q6H PRN PRN Reason: Anxiety Last Admin: 08/26/23 22:25 Dose: 25 mg Magnesium Hydroxide (Milk Of Magnesia 30 Ml Oral.Susp) 30 ml PO DAILY PRN PRN Reason: Constipation Trazodone HCl (Trazodone Hcl 50 Mg Tablet) 50 mg PO BEDTIME PRN PRN Reason: Insomnia Last Admin: 08/26/23 22:25 Dose: 50 mg Home Medications Medication Instructions Recorded Confirmed Last Taken Type clonazepam 0.5 mg tablet 0.5 mg PO BID Anxiety 08/26/23 08/26/23 08/25/23 History clonazepam 0.5 mg tablet (Klonopin) 0.5 mg PO BID PRN anxiety attack 08/26/23 08/26/23 Unknown History nicotine 21 mg transdermal 1XD smoking 08/26/23 08/26/23 08/25/23 History cessation Physical Exam 2 Vital Signs and Narrative: Vital Signs: Last Vital Signs Temp 97.2 F 08/26/23 15:46 Pulse 98 08/26/23 17:00 Resp 18 08/26/23 17:00 BP 138/76 08/26/23 17:00 Pulse Ox 97 08/26/23 15:46 O2 Del Method Room Air 08/26/23 15:46 BMI result Body Mass Index 21.6 78-year-old woman Results Labs 08/27/23 07:32 Labs: Laboratory Results - last 24 hr 08/27/23 07:32 Anion Gap 14 Estim Creat Clear Calc 52.4 Estimated GFR > 60 Fasting Glucose 102 H Calcium 9.4 Total Bilirubin 0.3 AST 26 ALT 16 Alkaline Phosphatase 84 Total Protein 7.6 Albumin 4.0 Triglycerides 160 H Cholesterol 231 H LDL Cholesterol, Calc 140 H HDL Cholesterol 59 Vitamin B12 435 TSH 1.76 Assessment and Plan (1) Bipolar disorder: Status: Acute Plan 78-year-old woman with a history of COPD, tobacco use, prediabetes, hyperlipidemia, depression, anxiety admitted to [facility] psych Depression anxiety Management as per psychiatric team COPD No exacerbation Not on albuterol at home or supplemental oxygen Hyperlipidemia May continue statin History of coronary artery disease May continue metoprolol GERD May continue PPI Smoker Reports smoking 3 packs of cigarettes a day Offered nicotine replacement but declined
[2023-08-27] MEDS: Omeprazole 40 MG CAPSULE.DR PO (17:01)
[2023-08-27 19:30] VITALS: BP 165/82; PULSE 82; RESP 16; TEMP 36.2; O2SAT 98
[2023-08-27] MEDS: hydrOXYzine HCL 25 MG TABLET PO (21:43)
[2023-08-27] MEDS: OLANZapine 10 MG TABLET PO (21:43)
[2023-08-27] MEDS: traZODone HCL 50 MG TABLET PO (21:43)
[2023-08-27] MEDS: cloNIDine HCL 0.1 MG TABLET PO (22:29)
[2023-08-27] MEDS: LORazepam 1 MG TABLET PO (22:30)
[2023-08-28] MEDS: Omeprazole 40 MG CAPSULE.DR PO ×2 (06:16→16:20)
[2023-08-28 07:45] VITALS: BP 121/67; PULSE 81; RESP 18; TEMP 36.4; O2SAT 96
[2023-08-28] MEDS: Lidocaine 4 % Patch ADH..PATCH 1 PATCH TRANSDERMA (08:35)
[2023-08-28] MEDS: Metoprolol Succinate ER 12.5 MG HALFTAB.ER.24H PO (08:35)
[2023-08-28] MEDS: Atorvastatin Calcium 10 MG TABLET PO (08:35)
--- NOTE | 2023-08-28 12:20 | HO.PSYCHPN ---
Subjective Subjective Date of Service: 08/28/23 Reason For Visit: F31.9,43.1 Subjective Notes: Conditional Voluntary and 3 Day Interim History: The nursing staff reported the patient had been visible, she attended groups and she had been compliant with medications. The staff has noticed that she has come grandiose statements and she had been hyperverbal mostly in the evening. She slept 8 hours since we restarted Zyprexa last night. On interview the patient remains with fast speech, hypomanic. She denies active suicidal ideation at this moment. Mental Status Exam Mental Status Exam Patient Appearance: Well Grooomed and Appropriate Patient Orientation: Person and Situation Level of Consciousness: Awake and Appropriate Patient Behavior: Guarded and Passive Mood Description: Calm Affect Description: Constricted Patient Cognition Impaired: Yes Ability to Follow Directions: Good Speech Pattern: Rapid Hallucinations: None Delusions: Grandiose Thought Process: Racing and Distracted Thought Content: positive for [place] and positive for P[place] of Content Judgement: Poor Diagnostics Vital Signs (24Hr): Vital Signs - 24 hr 08/27/23 19:30 08/28/23 07:45 Temperature 97.1 F 97.6 F Pulse Rate 82 81 Respiratory Rate 16 18 Blood Pressure 165/82 H 121/67 Pulse Oximetry 98 96 Oxygen Delivery Method Room Air Room Air BMI result Body Mass Index 21.6 Labs 08/27/23 07:32 Labs: Laboratory Results - last 48 hr 08/27/23 07:32 Sodium 137 Potassium 4.4 Chloride 101 Carbon Dioxide 26 Anion Gap 14 BUN 19 H Creatinine 0.84 Estim Creat Clear Calc 52.4 Estimated GFR > 60 Fasting Glucose 102 H Calcium 9.4 Total Bilirubin 0.3 AST 26 ALT 16 Alkaline Phosphatase 84 Total Protein 7.6 Albumin 4.0 Triglycerides 160 H Cholesterol 231 H LDL Cholesterol, Calc 140 H HDL Cholesterol 59 Vitamin B12 435 TSH 1.76 Medications Medications Current Medications Acetaminophen (Acetaminophen 325 Mg Tablet) 650 mg PO Q6H PRN PRN Reason: Headache/Pain Mild Scale (1-3) Al Hydroxide/Mg Hydroxide (Magnesium Hydrox/Alum Hydrox 30 Ml Oral.Susp) 30 ml PO Q6H PRN PRN Reason: Heartburn/Nausea Atorvastatin Calcium (Atorvastatin Calcium 10 Mg Tablet) 10 mg PO DAILY HAJA Last Admin: 08/28/23 08:35 Dose: 10 mg Clonidine HCl (Clonidine Hcl 0.1 Mg Tablet) 0.1 mg PO BID PRN; Protocol PRN Reason: panic attack Last Admin: 08/27/23 22:29 Dose: 0.1 mg Hydroxyzine HCl (Hydroxyzine Hcl 25 Mg Tablet) 25 mg PO Q6H PRN PRN Reason: Anxiety Last Admin: 08/27/23 21:43 Dose: 25 mg Lidocaine (Lidocaine 4 % Patch Adh..Patch) 1 patch TRANSDERMA DAILY HAJA; Protocol Last Admin: 08/28/23 08:35 Dose: 1 patch Magnesium Hydroxide (Milk Of Magnesia 30 Ml Oral.Susp) 30 ml PO DAILY PRN PRN Reason: Constipation Metoprolol Succinate (Metoprolol Succinate Er 12.5 Mg Halftab.Er.24h) 12.5 mg PO DAILY HAJA; Protocol Last Admin: 08/28/23 08:35 Dose: 12.5 mg Nicotine (Nicotine 21 Mg Patch.Td24) 21 mg TRANSDERMA DAILY HAJA Last Admin: 08/28/23 08:35 Dose: Not Given Olanzapine (Olanzapine 10 Mg Tablet) 10 mg PO BEDTIME HAJA Last Admin: 08/27/23 21:43 Dose: 10 mg Omeprazole (Omeprazole 40 Mg Capsule.Dr) 40 mg PO BID@0630,1630 HAJA Last Admin: 08/28/23 06:16 Dose: 40 mg Trazodone HCl (Trazodone Hcl 50 Mg Tablet) 50 mg PO BEDTIME PRN PRN Reason: Insomnia Last Admin: 08/27/23 21:43 Dose: 50 mg Allergies Allergies Allergy/AdvReac Type Severity Reaction Status Date / Time adhesive AdvReac Unknown Verified 10/14/22 04:34 aspirin AdvReac Unknown Verified 10/14/22 04:34 epinephrine AdvReac Unknown Verified 10/14/22 04:34 Assessment & Plan Assessment & Plan (1) Bipolar disorder: Status: Acute Code(s): F31.9 - Bipolar disorder, unspecified (2) COPD (chronic obstructive pulmonary disease): Status: Acute Code(s): J44.9 - Chronic obstructive pulmonary disease, unspecified (3) Tobacco abuse: Status: Acute Code(s): Z72.0 - Tobacco use (4) Hyperlipidemia: Status: Acute Code(s): E78.5 - Hyperlipidemia, unspecified (5) History of parathyroidectomy: Status: Acute Code(s): E89.2 - Postprocedural hypoparathyroidism (6) History of colectomy: Status: Acute Code(s): Z90.49 - Acquired absence of other specified parts of digestive tract Plan The patient is an elderly female with a past history of bipolar disorder who was admitted for manic symptoms, she stated that she was having a stroke but she was medically cleared. It is clear that the patient had been on compliant with mood stabilizers. We decided to restart her medications and historically she responded fairly well to olanzapine. Plan 1. Gather collateral information. 2. Start olanzapine and other mood stabilizers. 3. Continue with medical workout. 4. Reassessment with results Reason for continued inpatient stay Substantial Risk for: inability to function, rapid decompensation and med/psych decompensation Time Spent With Patient Time: Total time managing care of this patient today __20__ minutes.
--- NOTE | 2023-08-28 16:48 | PC.ADMIT ---
Pt has pace maker on left upper chest.
[2023-08-28 18:00] VITALS: BP 126/67; PULSE 103; RESP 18; TEMP 36.1; O2SAT 95
[2023-08-28] MEDS: hydrOXYzine HCL 25 MG TABLET PO (18:22)
[2023-08-28] MEDS: OLANZapine 10 MG TABLET PO (19:39)
[2023-08-28] MEDS: traZODone HCL 50 MG TABLET PO ×2 (19:39→22:46)
[2023-08-28] MEDS: cloNIDine HCL 0.1 MG TABLET PO (19:39)
[2023-08-29] MEDS: hydrOXYzine HCL 25 MG TABLET PO ×2 (04:04→14:59)
--- NOTE | 2023-08-29 05:09 | PC.NURSE ---
at around 2:30 PT was sitting in common area having a cup of tea when she accidentally spilled the hot drink onto her lap. Right upper thigh was red, ice was applied to red area showed less redness after 20 min PT had no c/o of pain or discomfort. continue to monitor.
[2023-08-29] MEDS: Omeprazole 40 MG CAPSULE.DR PO ×2 (06:51→16:50)
[2023-08-29 07:00] VITALS: BMI 22.2
[2023-08-29 07:50] VITALS: BP 136/60; PULSE 82; RESP 16; TEMP 36.8; O2SAT 97
[2023-08-29] MEDS: Metoprolol Succinate ER 12.5 MG HALFTAB.ER.24H PO (08:45)
[2023-08-29] MEDS: Atorvastatin Calcium 10 MG TABLET PO (08:45)
--- NOTE | 2023-08-29 11:54 | HO.PSYCHPN ---
Subjective Subjective Date of Service: 08/29/23 Reason For Visit: F31.9,43.1 Subjective Notes: Conditional Voluntary Interim History: The nursing staff reported the patient had been compliant with treatment, she took p.r.n. Atarax for anxiety. On interview the patient denies new symptoms she feels much better with episodic anxiety but able to cope with it. Mental Status Exam Mental Status Exam Patient Appearance: Well Grooomed and Appropriate Patient Orientation: Person and Situation Level of Consciousness: Awake and Appropriate Patient Behavior: Guarded and Passive Mood Description: Withdrawn Affect Description: Labile Patient Cognition Impaired: Yes Ability to Follow Directions: Good Speech Pattern: Clear Hallucinations: None Delusions: Not Present Thought Process: Racing and Distracted Thought Content: positive for Circumstantial Judgement: Fair Diagnostics Vital Signs (24Hr): Vital Signs - 24 hr 08/28/23 18:00 08/29/23 07:50 Temperature 97.0 F 98.2 F Pulse Rate 103 H 82 Respiratory Rate 18 16 Blood Pressure 126/67 136/60 Pulse Oximetry 95 97 Oxygen Delivery Method Room Air Room Air BMI result Body Mass Index 21.6 Labs 08/27/23 07:32 Medications Medications Current Medications Acetaminophen (Acetaminophen 325 Mg Tablet) 650 mg PO Q6H PRN PRN Reason: Headache/Pain Mild Scale (1-3) Al Hydroxide/Mg Hydroxide (Magnesium Hydrox/Alum Hydrox 30 Ml Oral.Susp) 30 ml PO Q6H PRN PRN Reason: Heartburn/Nausea Atorvastatin Calcium (Atorvastatin Calcium 10 Mg Tablet) 10 mg PO DAILY ON LICENSE OF [facility] Last Admin: 08/29/23 08:45 Dose: 10 mg Clonidine HCl (Clonidine Hcl 0.1 Mg Tablet) 0.1 mg PO BID PRN; Protocol PRN Reason: panic attack Last Admin: 08/28/23 19:39 Dose: 0.1 mg Hydroxyzine HCl (Hydroxyzine Hcl 25 Mg Tablet) 25 mg PO Q6H PRN PRN Reason: Anxiety Last Admin: 08/29/23 04:04 Dose: 25 mg Lidocaine (Lidocaine 4 % Patch Adh..Patch) 1 patch TRANSDERMA DAILY ON LICENSE OF [facility]; Protocol Last Admin: 08/29/23 08:46 Dose: Not Given Magnesium Hydroxide (Milk Of Magnesia 30 Ml Oral.Susp) 30 ml PO DAILY PRN PRN Reason: Constipation Metoprolol Succinate (Metoprolol Succinate Er 12.5 Mg Halftab.Er.24h) 12.5 mg PO DAILY ON LICENSE OF [facility]; Protocol Last Admin: 08/29/23 08:45 Dose: 12.5 mg Nicotine (Nicotine 21 Mg Patch.Td24) 21 mg TRANSDERMA DAILY ON LICENSE OF [facility] Last Admin: 08/29/23 08:46 Dose: Not Given Olanzapine (Olanzapine 10 Mg Tablet) 10 mg PO BEDTIME ON LICENSE OF [facility] Last Admin: 08/28/23 19:39 Dose: 10 mg Omeprazole (Omeprazole 40 Mg Capsule.Dr) 40 mg PO BID@0630,1630 ON LICENSE OF [facility] Last Admin: 08/29/23 06:51 Dose: 40 mg Trazodone HCl (Trazodone Hcl 50 Mg Tablet) 50 mg PO BEDTIME PRN PRN Reason: Insomnia Last Admin: 08/28/23 22:46 Dose: 50 mg Allergies Allergies Allergy/AdvReac Type Severity Reaction Status Date / Time adhesive AdvReac Unknown Verified 10/14/22 04:34 aspirin AdvReac Unknown Verified 10/14/22 04:34 epinephrine AdvReac Unknown Verified 10/14/22 04:34 Assessment & Plan Assessment & Plan (1) Bipolar disorder: Status: Acute Code(s): F31.9 - Bipolar disorder, unspecified Plan 78-year-old woman with a history of COPD, tobacco use, prediabetes, hyperlipidemia, depression, anxiety admitted to [facility] psych Depression anxiety Management as per psychiatric team COPD No exacerbation Not on albuterol at home or supplemental oxygen Hyperlipidemia May continue statin History of coronary artery disease May continue metoprolol GERD May continue PPI Smoker Reports smoking 3 packs of cigarettes a day Offered nicotine replacement but declined Reason for continued inpatient stay Substantial Risk for: inability to function, rapid decompensation and med/psych decompensation Time Spent With Patient Time: Total time managing care of this patient today ___20_ minutes.
[2023-08-29 18:00] VITALS: BP 167/94; PULSE 113; TEMP 35.4; O2SAT 96
[2023-08-29] MEDS: OLANZapine 10 MG TABLET PO (20:44)
[2023-08-29] MEDS: traZODone HCL 50 MG TABLET PO (20:46)
[2023-08-30] MEDS: hydrOXYzine HCL 25 MG TABLET PO ×3 (00:02→18:49)
[2023-08-30] MEDS: Omeprazole 40 MG CAPSULE.DR PO (05:45)
[2023-08-30 08:28] VITALS: BP 128/74; PULSE 90; RESP 15; TEMP 36.7; O2SAT 95
[2023-08-30] MEDS: Metoprolol Succinate ER 12.5 MG HALFTAB.ER.24H PO (08:30)
[2023-08-30] MEDS: Atorvastatin Calcium 10 MG TABLET PO (08:30)
[2023-08-30] MEDS: Nicotine 21 MG PATCH.TD24 TRANSDERMA (08:32)
--- NOTE | 2023-08-30 14:57 | P.PNPSI_ITS ---
Subjective Subjective Date of Service: 08/30/23 Reason For Visit: F31.9,43.1 Subjective Notes: Conditional Voluntary Interim History: The nursing staff reported no changes in her mental status, she had been fully compliant with treatment. She slept only 4 hours last night. On interview the patient denies no new panic attacks she feels much better since Zyprexa was restarted. Mental Status Exam Mental Status Exam Patient Appearance: Appropriate Patient Orientation: Person and Situation Level of Consciousness: Awake and Appropriate Patient Behavior: Guarded and Passive Mood Description: Calm Affect Description: Constricted Patient Cognition Impaired: Yes Ability to Follow Directions: Good Speech Pattern: Clear Hallucinations: None Delusions: Not Present Thought Process: Distracted Thought Content: positive for [place] and positive for Circumstantial Judgement: Fair Diagnostics Vital Signs (24Hr): Vital Signs - 24 hr 08/29/23 18:00 08/30/23 08:28 Temperature 95.8 F L 98.1 F Pulse Rate 113 H 90 Respiratory Rate 15 Blood Pressure 167/94 H 128/74 Pulse Oximetry 96 95 Oxygen Delivery Method Room Air Room Air BMI result Body Mass Index 22.2 Labs 08/27/23 07:32 Medications Medications Current Medications Acetaminophen (Acetaminophen 325 Mg Tablet) 650 mg PO Q6H PRN PRN Reason: Headache/Pain Mild Scale (1-3) Al Hydroxide/Mg Hydroxide (Magnesium Hydrox/Alum Hydrox 30 Ml Oral.Susp) 30 ml PO Q6H PRN PRN Reason: Heartburn/Nausea Atorvastatin Calcium (Atorvastatin Calcium 10 Mg Tablet) 10 mg PO DAILY [facility] Last Admin: 08/30/23 08:30 Dose: 10 mg Clonidine HCl (Clonidine Hcl 0.1 Mg Tablet) 0.1 mg PO BID PRN; Protocol PRN Reason: panic attack Last Admin: 08/28/23 19:39 Dose: 0.1 mg Hydroxyzine HCl (Hydroxyzine Hcl 25 Mg Tablet) 25 mg PO Q6H PRN PRN Reason: Anxiety Last Admin: 08/30/23 12:13 Dose: 25 mg Lidocaine (Lidocaine 4 % Patch Adh..Patch) 1 patch TRANSDERMA DAILY [facility]; Protocol Last Admin: 08/30/23 08:30 Dose: Not Given Magnesium Hydroxide (Milk Of Magnesia 30 Ml Oral.Susp) 30 ml PO DAILY PRN PRN Reason: Constipation Metoprolol Succinate (Metoprolol Succinate Er 12.5 Mg Halftab.Er.24h) 12.5 mg PO DAILY [facility]; Protocol Last Admin: 08/30/23 08:30 Dose: 12.5 mg Nicotine (Nicotine 21 Mg Patch.Td24) 21 mg TRANSDERMA DAILY [facility] Last Admin: 08/30/23 08:32 Dose: 21 mg Olanzapine (Olanzapine 10 Mg Tablet) 10 mg PO BEDTIME [facility] Last Admin: 08/29/23 20:44 Dose: 10 mg Omeprazole (Omeprazole 40 Mg Capsule.Dr) 40 mg PO BID@0630,1630 [facility] Last Admin: 08/30/23 05:45 Dose: 40 mg Trazodone HCl (Trazodone Hcl 50 Mg Tablet) 50 mg PO BEDTIME PRN PRN Reason: Insomnia Last Admin: 08/29/23 20:46 Dose: 50 mg Allergies Allergies Allergy/AdvReac Type Severity Reaction Status Date / Time adhesive AdvReac Unknown Verified 10/14/22 04:34 aspirin AdvReac Unknown Verified 10/14/22 04:34 epinephrine AdvReac Unknown Verified 10/14/22 04:34 Assessment & Plan Assessment & Plan (1) Bipolar disorder: Status: Acute Code(s): F31.9 - Bipolar disorder, unspecified Plan 78-year-old woman with a history of COPD, tobacco use, prediabetes, hyperlipidemia, depression, anxiety admitted [facility] Depression anxiety Management as per psychiatric team COPD No exacerbation Not on albuterol at home or supplemental oxygen Hyperlipidemia May continue statin History of coronary artery disease May continue metoprolol GERD May continue PPI Smoker Reports smoking 3 packs of cigarettes a day Offered nicotine replacement but declined Reason for continued inpatient stay Substantial Risk for: inability to function, rapid decompensation and med/psych decompensation Time Spent With Patient Time: Total time managing care of this patient today __20__ minutes.
[2023-08-30 18:00] VITALS: BP 184/97; PULSE 99; RESP 20; TEMP 35.9; O2SAT 97
[2023-08-30] MEDS: OLANZapine 10 MG TABLET PO (20:31)
[2023-08-30] MEDS: cloNIDine HCL 0.1 MG TABLET PO (20:32)
[2023-08-30] MEDS: traZODone HCL 50 MG TABLET PO (20:32)
[2023-08-31] VITALS: BP 112/69; PULSE 92; RESP 20
[2023-08-31] MEDS: hydrOXYzine HCL 25 MG TABLET PO ×3 (00:44→21:40)
[2023-08-31] MEDS: Omeprazole 40 MG CAPSULE.DR PO ×2 (06:15→16:33)
[2023-08-31 08:00] VITALS: BP 129/66; PULSE 94; RESP 18; TEMP 36.3; O2SAT 97
[2023-08-31] MEDS: Atorvastatin Calcium 10 MG TABLET PO (08:18)
[2023-08-31] MEDS: Lidocaine 4 % Patch ADH..PATCH 1 PATCH TRANSDERMA (08:18)
[2023-08-31] MEDS: Nicotine 21 MG PATCH.TD24 TRANSDERMA (08:22)
[2023-08-31] MEDS: Metoprolol Succinate ER 12.5 MG HALFTAB.ER.24H PO (08:22)
--- NOTE | 2023-08-31 09:16 | HO.PSYCHPN ---
Subjective Subjective Date of Service: 08/31/23 Reason For Visit: F31.9,43.1 Subjective Notes: Conditional Voluntary Interim History: The nursing staff reported the patient slept only 2 hours last night, she had been compliant with medications she took p.r.n. medications. On interview the patient remains pleasant cooperative slightly hypomanic are going to increase Zyprexa to 15 mg p.o. q.h.s.. Mental Status Exam Mental Status Exam Patient Appearance: Well Grooomed and Appropriate Patient Orientation: Person and Situation Level of Consciousness: Awake and Appropriate Patient Behavior: Guarded and Passive Mood Description: Withdrawn Affect Description: Calm Patient Cognition Impaired: Yes Ability to Follow Directions: Good Speech Pattern: Clear Hallucinations: None Delusions: Grandiose Thought Process: Distracted Thought Content: positive for Circumstantial Judgement: Fair Diagnostics Vital Signs (24Hr): Vital Signs - 24 hr 08/30/23 18:00 08/31/23 00:00 08/31/23 08:00 Temperature 96.7 F L 97.3 F Pulse Rate 99 92 94 Respiratory Rate 20 20 18 Blood Pressure 184/97 H 112/69 129/66 Pulse Oximetry 97 97 Oxygen Delivery Method Room Air Room Air BMI result Body Mass Index 22.2 Labs 08/27/23 07:32 Medications Medications Current Medications Acetaminophen (Acetaminophen 325 Mg Tablet) 650 mg PO Q6H PRN PRN Reason: Headache/Pain Mild Scale (1-3) Al Hydroxide/Mg Hydroxide (Magnesium Hydrox/Alum Hydrox 30 Ml Oral.Susp) 30 ml PO Q6H PRN PRN Reason: Heartburn/Nausea Atorvastatin Calcium (Atorvastatin Calcium 10 Mg Tablet) 10 mg PO DAILY [facility] Last Admin: 08/31/23 08:18 Dose: 10 mg Clonidine HCl (Clonidine Hcl 0.1 Mg Tablet) 0.1 mg PO BID PRN; Protocol PRN Reason: panic attack Last Admin: 08/30/23 20:32 Dose: 0.1 mg Hydroxyzine HCl (Hydroxyzine Hcl 25 Mg Tablet) 25 mg PO Q6H PRN PRN Reason: Anxiety Last Admin: 08/31/23 00:44 Dose: 25 mg Lidocaine (Lidocaine 4 % Patch Adh..Patch) 1 patch TRANSDERMA DAILY [facility]; Protocol Last Admin: 08/31/23 08:18 Dose: 1 patch Magnesium Hydroxide (Milk Of Magnesia 30 Ml Oral.Susp) 30 ml PO DAILY PRN PRN Reason: Constipation Metoprolol Succinate (Metoprolol Succinate Er 12.5 Mg Halftab.Er.24h) 12.5 mg PO DAILY [facility]; Protocol Last Admin: 08/31/23 08:22 Dose: 12.5 mg Nicotine (Nicotine 21 Mg Patch.Td24) 21 mg TRANSDERMA DAILY [facility] Last Admin: 08/31/23 08:22 Dose: 21 mg Olanzapine (Olanzapine 10 Mg Tablet) 10 mg PO BEDTIME [facility] Last Admin: 08/30/23 20:31 Dose: 10 mg Omeprazole (Omeprazole 40 Mg Capsule.Dr) 40 mg PO BID@0630,1630 [facility] Last Admin: 08/31/23 06:15 Dose: 40 mg Trazodone HCl (Trazodone Hcl 50 Mg Tablet) 50 mg PO BEDTIME PRN PRN Reason: Insomnia Last Admin: 08/30/23 20:32 Dose: 50 mg Allergies Allergies Allergy/AdvReac Type Severity Reaction Status Date / Time adhesive AdvReac Unknown Verified 10/14/22 04:34 aspirin AdvReac Unknown Verified 10/14/22 04:34 epinephrine AdvReac Unknown Verified 10/14/22 04:34 Assessment & Plan Assessment & Plan (1) Bipolar disorder: Status: Acute Code(s): F31.9 - Bipolar disorder, unspecified Plan 78-year-old woman with a history of COPD, tobacco use, prediabetes, hyperlipidemia, depression, anxiety admitted to [facility] psych Depression anxiety Management as per psychiatric team COPD No exacerbation Not on albuterol at home or supplemental oxygen Hyperlipidemia May continue statin History of coronary artery disease May continue metoprolol GERD May continue PPI Smoker Reports smoking 3 packs of cigarettes a day Offered nicotine replacement but declined Plan 1. Continue with regular medications. 2. Increase Zyprexa up to 15 mg p.o. q.h.s. to target kaylie on August 31. Reason for continued inpatient stay Substantial Risk for: inability to function, rapid decompensation and med/psych decompensation Time Spent With Patient Time: Total time managing care of this patient today _20___ minutes.
[2023-08-31 18:00] VITALS: BP 107/68; PULSE 98; RESP 20; TEMP 36.6; O2SAT 96
[2023-08-31] MEDS: OLANZapine 7.5 MG TABLET 15 MG PO (21:40)
[2023-08-31] MEDS: cloNIDine HCL 0.1 MG TABLET PO (21:41)
[2023-09-01] MEDS: Omeprazole 40 MG CAPSULE.DR PO ×2 (05:06→16:47)
[2023-09-01 08:16] VITALS: BP 127/93; PULSE 94; RESP 16; TEMP 36.2; O2SAT 97
[2023-09-01] MEDS: Metoprolol Succinate ER 12.5 MG HALFTAB.ER.24H PO (08:19)
[2023-09-01] MEDS: Atorvastatin Calcium 10 MG TABLET PO (08:19)
[2023-09-01] MEDS: hydrOXYzine HCL 25 MG TABLET PO ×2 (08:20→20:00)
[2023-09-01] MEDS: cloNIDine HCL 0.1 MG TABLET PO ×3 (08:20→20:00)
[2023-09-01] MEDS: Nicotine 21 MG PATCH.TD24 TRANSDERMA (08:20)
--- NOTE | 2023-09-01 10:19 | HO.PSYCHPN ---
Subjective Subjective Date of Service: 09/01/23 Reason For Visit: F31.9,43.1 Subjective Notes: Conditional Voluntary Interim History: The nursing staff reported the patient slept poorly. She needed p.r.n. medication at night. On interview the patient denies new symptoms no over-sedation with Zyprexa increased. Mental Status Exam Mental Status Exam Patient Appearance: Well Grooomed Patient Orientation: Person Level of Consciousness: Awake Patient Behavior: Guarded and Passive Mood Description: Withdrawn Affect Description: Constricted Patient Cognition Impaired: Yes Ability to Follow Directions: Good Speech Pattern: Clear Hallucinations: None Delusions: Not Present Thought Process: Distracted and Evasive Thought Content: positive for Circumstantial Judgement: Poor Diagnostics Vital Signs (24Hr): Vital Signs - 24 hr 08/31/23 18:00 09/01/23 08:16 Temperature 97.8 F 97.1 F Pulse Rate 98 94 Respiratory Rate 20 16 Blood Pressure 107/68 127/93 H Pulse Oximetry 96 97 Oxygen Delivery Method Room Air Room Air BMI result Body Mass Index 22.2 Labs 08/27/23 07:32 Medications Medications Current Medications Acetaminophen (Acetaminophen 325 Mg Tablet) 650 mg PO Q6H PRN PRN Reason: Headache/Pain Mild Scale (1-3) Al Hydroxide/Mg Hydroxide (Magnesium Hydrox/Alum Hydrox 30 Ml Oral.Susp) 30 ml PO Q6H PRN PRN Reason: Heartburn/Nausea Atorvastatin Calcium (Atorvastatin Calcium 10 Mg Tablet) 10 mg PO DAILY [facility] Last Admin: 09/01/23 08:19 Dose: 10 mg Clonidine HCl (Clonidine Hcl 0.1 Mg Tablet) 0.1 mg PO BID PRN; Protocol PRN Reason: panic attack Last Admin: 09/01/23 08:20 Dose: 0.1 mg Hydroxyzine HCl (Hydroxyzine Hcl 25 Mg Tablet) 25 mg PO Q6H PRN PRN Reason: Anxiety Last Admin: 09/01/23 08:20 Dose: 25 mg Lidocaine (Lidocaine 4 % Patch Adh..Patch) 1 patch TRANSDERMA DAILY [facility]; Protocol Last Admin: 09/01/23 08:24 Dose: Not Given Magnesium Hydroxide (Milk Of Magnesia 30 Ml Oral.Susp) 30 ml PO DAILY PRN PRN Reason: Constipation Metoprolol Succinate (Metoprolol Succinate Er 12.5 Mg Halftab.Er.24h) 12.5 mg PO DAILY [facility]; Protocol Last Admin: 09/01/23 08:19 Dose: 12.5 mg Nicotine (Nicotine 21 Mg Patch.Td24) 21 mg TRANSDERMA DAILY [facility] Last Admin: 09/01/23 08:20 Dose: 21 mg Olanzapine (Olanzapine 7.5 Mg Tablet) 15 mg PO BEDTIME [facility] Last Admin: 08/31/23 21:40 Dose: 15 mg Omeprazole (Omeprazole 40 Mg Capsule.Dr) 40 mg PO BID@0630,1630 [facility] Last Admin: 09/01/23 05:06 Dose: 40 mg Trazodone HCl (Trazodone Hcl 50 Mg Tablet) 50 mg PO BEDTIME PRN PRN Reason: Insomnia Last Admin: 08/30/23 20:32 Dose: 50 mg Allergies Allergies Allergy/AdvReac Type Severity Reaction Status Date / Time adhesive AdvReac Unknown Verified 10/14/22 04:34 aspirin AdvReac Unknown Verified 10/14/22 04:34 epinephrine AdvReac Unknown Verified 10/14/22 04:34 Assessment & Plan Assessment & Plan (1) Bipolar disorder: Status: Acute Code(s): F31.9 - Bipolar disorder, unspecified Plan 78-year-old woman with a history of COPD, tobacco use, prediabetes, hyperlipidemia, depression, anxiety admitted [facility] Depression anxiety Management as per psychiatric team COPD No exacerbation Not on albuterol at home or supplemental oxygen Hyperlipidemia May continue statin History of coronary artery disease May continue metoprolol GERD May continue PPI Smoker Reports smoking 3 packs of cigarettes a day Offered nicotine replacement but declined Plan 1. Continue with regular medications. 2. Increase Zyprexa up to 15 mg p.o. q.h.s. to target kaylie on August 31. Reason for continued inpatient stay Substantial Risk for: inability to function, rapid decompensation and med/psych decompensation Time Spent With Patient Time: Total time managing care of this patient today __20__ minutes.
[2023-09-01 12:16] VITALS: BP 132/62; PULSE 86
[2023-09-01 18:00] VITALS: BP 114/61; PULSE 77; RESP 18; TEMP 36.6; O2SAT 95
[2023-09-01] MEDS: OLANZapine 7.5 MG TABLET 15 MG PO (20:00)
[2023-09-02] MEDS: Acetaminophen 325 MG TABLET 650 MG PO (00:33)
[2023-09-02] MEDS: Omeprazole 40 MG CAPSULE.DR PO ×2 (05:45→16:58)
[2023-09-02 08:01] VITALS: BP 130/68; PULSE 80; RESP 18; TEMP 36.4; O2SAT 95
[2023-09-02] MEDS: Atorvastatin Calcium 10 MG TABLET PO (08:04)
[2023-09-02] MEDS: Metoprolol Succinate ER 12.5 MG HALFTAB.ER.24H PO (08:04)
[2023-09-02] MEDS: Nicotine 21 MG PATCH.TD24 TRANSDERMA (08:07)
[2023-09-02] MEDS: hydrOXYzine HCL 25 MG TABLET PO ×2 (08:10→16:58)
[2023-09-02 12:12] VITALS: BP 143/67; PULSE 93
[2023-09-02] MEDS: cloNIDine HCL 0.1 MG TABLET PO (12:14)
--- NOTE | 2023-09-02 15:07 | HO.PSYCHPN ---
Subjective Subjective Date of Service: 09/02/23 Reason For Visit: F31.9,43.1 Subjective Notes: Conditional Voluntary Interim History: The nursing staff reported the patient had been pleasant and cooperative but she slept only 5 hours. On interview the patient reports that she is feeling much better and she is willing to be discharged tomorrow. Mental Status Exam Mental Status Exam Patient Appearance: Well Grooomed and Appropriate Patient Orientation: Person and Situation Level of Consciousness: Awake and Appropriate Patient Behavior: Cooperative Mood Description: Calm Affect Description: Labile Ability to Follow Directions: Good Speech Pattern: Clear Hallucinations: None Delusions: Not Present Thought Process: Distracted Thought Content: positive for [place] and positive for Poverty of Content Judgement: Fair Diagnostics Vital Signs (24Hr): Vital Signs - 24 hr 09/01/23 18:00 09/02/23 08:01 09/02/23 12:12 Temperature 97.9 F 97.6 F Pulse Rate 77 80 93 Respiratory Rate 18 18 Blood Pressure 114/61 130/68 143/67 H Pulse Oximetry 95 95 Oxygen Delivery Method Room Air Room Air BMI result Body Mass Index 22.2 Labs 08/27/23 07:32 Medications Medications Current Medications Acetaminophen (Acetaminophen 325 Mg Tablet) 650 mg PO Q6H PRN PRN Reason: Headache/Pain Mild Scale (1-3) Last Admin: 09/02/23 00:33 Dose: 650 mg Al Hydroxide/Mg Hydroxide (Magnesium Hydrox/Alum Hydrox 30 Ml Oral.Susp) 30 ml PO Q6H PRN PRN Reason: Heartburn/Nausea Atorvastatin Calcium (Atorvastatin Calcium 10 Mg Tablet) 10 mg PO DAILY [facility] Last Admin: 09/02/23 08:04 Dose: 10 mg Clonidine HCl (Clonidine Hcl 0.1 Mg Tablet) 0.1 mg PO BID PRN; Protocol PRN Reason: panic attack Last Admin: 09/02/23 12:14 Dose: 0.1 mg Hydroxyzine HCl (Hydroxyzine Hcl 25 Mg Tablet) 25 mg PO Q6H PRN PRN Reason: Anxiety Last Admin: 09/02/23 08:10 Dose: 25 mg Lidocaine (Lidocaine 4 % Patch Adh..Patch) 1 patch TRANSDERMA DAILY [facility]; Protocol Last Admin: 09/02/23 08:08 Dose: Not Given Magnesium Hydroxide (Milk Of Magnesia 30 Ml Oral.Susp) 30 ml PO DAILY PRN PRN Reason: Constipation Metoprolol Succinate (Metoprolol Succinate Er 12.5 Mg Halftab.Er.24h) 12.5 mg PO DAILY [facility]; Protocol Last Admin: 09/02/23 08:04 Dose: 12.5 mg Nicotine (Nicotine 21 Mg Patch.Td24) 21 mg TRANSDERMA DAILY [facility] Last Admin: 09/02/23 08:07 Dose: 21 mg Olanzapine (Olanzapine 7.5 Mg Tablet) 15 mg PO BEDTIME [facility] Last Admin: 09/01/23 20:00 Dose: 15 mg Omeprazole (Omeprazole 40 Mg Capsule.Dr) 40 mg PO BID@0630,1630 [facility] Last Admin: 09/02/23 05:45 Dose: 40 mg Trazodone HCl (Trazodone Hcl 50 Mg Tablet) 50 mg PO BEDTIME PRN PRN Reason: Insomnia Last Admin: 08/30/23 20:32 Dose: 50 mg Allergies Allergies Allergy/AdvReac Type Severity Reaction Status Date / Time adhesive AdvReac Unknown Verified 10/14/22 04:34 aspirin AdvReac Unknown Verified 10/14/22 04:34 epinephrine AdvReac Unknown Verified 10/14/22 04:34 Assessment & Plan Assessment & Plan (1) Bipolar disorder: Status: Acute Code(s): F31.9 - Bipolar disorder, unspecified Plan 78-year-old woman with a history of COPD, tobacco use, prediabetes, hyperlipidemia, depression, anxiety admitted to [facility] psych Depression anxiety Management as per psychiatric team COPD No exacerbation Not on albuterol at home or supplemental oxygen Hyperlipidemia May continue statin History of coronary artery disease May continue metoprolol GERD May continue PPI Smoker Reports smoking 3 packs of cigarettes a day Offered nicotine replacement but declined Plan 1. Continue with regular medications. 2. Increase Zyprexa up to 15 mg p.o. q.h.s. to target kaylie on August 31. 3. Add melatonin 9 mg at night. Reason for continued inpatient stay Substantial Risk for: inability to function, rapid decompensation and med/psych decompensation Time Spent With Patient Time: Total time managing care of this patient today __20__ minutes.
[2023-09-02 19:35] VITALS: BP 149/66; PULSE 84; RESP 18; TEMP 36.5; O2SAT 96
[2023-09-02] MEDS: OLANZapine 7.5 MG TABLET 15 MG PO (19:55)
[2023-09-02] MEDS: Melatonin 3 MG TABLET 9 MG PO (19:55)
[2023-09-03] MEDS: Omeprazole 40 MG CAPSULE.DR PO (05:25)
[2023-09-03] MEDS: hydrOXYzine HCL 25 MG TABLET PO (05:29)
[2023-09-03 08:10] VITALS: BP 134/67; PULSE 89; RESP 18; TEMP 36.6; O2SAT 95
[2023-09-03] MEDS: Atorvastatin Calcium 10 MG TABLET PO (08:15)
[2023-09-03] MEDS: Metoprolol Succinate ER 12.5 MG HALFTAB.ER.24H PO (08:15)
[2023-09-03] MEDS: cloNIDine HCL 0.1 MG TABLET PO (08:16)
--- NOTE | 2023-09-03 10:01 | PM.PSYDC ---
DS: Providers Provider Date of Service: 09/03/23 Date of admission: 08/26/23 15:10 Date of discharge: 09/03/23 Primary care physician: Josiah Mora MD Consults: 08/26/23 15:34 Consult to Hospitalist Routine Comment: Consulting Provider: Hospitalist Reason For Exam: medical H&P Attending physician on discharge: James Garcia DS: Diagnosis Discharge Diagnosis (1) Bipolar disorder: Status: Acute DS: Medications Discharge Medications Home Medications: Home Medications Medication Instructions Recorded Confirmed clonazepam 0.5 mg tablet 0.5 mg PO BID Anxiety 08/26/23 08/26/23 clonazepam 0.5 mg tablet (Klonopin) 0.5 mg PO BID PRN anxiety attack 08/26/23 08/26/23 nicotine 21 mg transdermal 1XD smoking 08/26/23 08/26/23 cessation Previous Rx's Medication Instructions Recorded acetaminophen 325 mg tablet 650 mg (2 x 325 mg) PO Q6H PRN 07/10/23 Headache/Pain Mild Scale (1-3) #0 tabs atorvastatin 10 mg tablet 10 mg PO DAILY #14 tabs 07/10/23 clonidine HCl 0.1 mg tablet 0.1 mg PO BID PRN panic attack #14 07/10/23 tabs hydroxyzine HCl 25 mg tablet 25 mg PO Q6H PRN Anxiety #14 tabs 07/10/23 ibuprofen 200 mg tablet 200 mg PO Q8H #0 tabs 07/10/23 lamotrigine 25 mg tablet 25 mg PO BID #14 tabs 07/10/23 lidocaine 4 % topical patch 1 patch transdermal DAILY #7 ea 07/10/23 (Lidocaine Pain Relief) meclizine 25 mg tablet 25 mg PO BID PRN dizziness #14 tabs 07/10/23 metoprolol succinate 25 mg 12.5 mg (1/2 x 25 mg) PO DAILY #7 07/10/23 tablet,extended release 24 hr tabs (Toprol XL) olanzapine 10 mg tablet 10 mg PO BEDTIME #7 tabs 07/10/23 omeprazole 40 mg capsule,delayed 40 mg PO BID@0630,1630 #14 caps 07/10/23 release cefuroxime axetil 250 mg tablet 250 mg PO BID 7 days #14 tabs 07/21/23 Mental Status Exam Mental Status Exam Patient Appearance: Well Grooomed and Appropriate Patient Orientation: Person, Place and Situation Level of Consciousness: Awake and Appropriate Patient Behavior: Guarded and Passive Mood Description: Withdrawn Affect Description: Constricted Patient Cognition Impaired: Yes Ability to Follow Directions: Good Speech Pattern: Clear Hallucinations: None Delusions: Not Present Thought Process: Distracted and Linear Thought Content: positive for [place] and positive for Circumstantial Judgement: Fair DS: Summary Hospital Course Hospital Course: The patient is a 78-year-old female, , with a past history of bipolar disorder very well known by the team since she had been admitted several times into the hospital for mood symptoms with suicidality. She had episodes of anxiety that were compatible with panic attacks. The patient was brought to the emergency room due to suicidal thoughts she was assessed by crisis and transferring to this facility for psychiatric stabilization. Apparently she had being noncompliant with medications. Please see the HPI of the admission note for further details. On admission we addressed her noncompliance and she agreed to restart her olanzapine that was prescribed in the past with good mood stabilization. We titrated slowly up to 15 mg p.o. q.h.s. with for tolerability. The patient's anxiety and panic attacks resolved after a few days of treatment. The patient was seen in the community, attending to groups cooperative pleasant with future oriented thought process. We discussed discharge options, we explored the possibility of assisted living facility or rest home but no suitable options were possible due to financial constraints. She is currently still , she is filing for divorce and she is struggling with financial constraints that does not allow her to get a better housing option. Since the patient did not have any safety concerns discharge planning was discussed she is able to contract for safety and she looks safe to be discharged in the community. Regular aftercare was arranged. Time spent discussing smoking cessation with patient: 3 to 10 minutes Status at Discharge Cognitive/behavioral status at discharge: At baseline Functional status at discharge: independent ambulation Overall status at discharge: patient is back to baseline Time Spent with Patient Time attestation: Total time managing care of this patient today __20__ minutes. Time spent: Less than 30 minutes Discharge Plan Discharge Anticipated Discharge Date/Time: 09/03/23 11:20 Patient Disposition: Home, Self-Care Discharge Diagnosis: Bipolar disorder Referrals: Manuel Tamayo - [employer] [Other] - 1 Week (Services will resume upon discharge. ) Billy Bee [Other] - 09/04/23 9:00 am (Telehealth Mental Health Therapist ) Gage Amado APRN [Registered Nurse] - 09/23/23 3:45 pm (This is a virtual appointment. ) Jorge Mora MD [Primary Care Provider] - 1 Week Discharge Medications: New olanzapine 7.5 mg Tablet 15 mg PO BEDTIME Qty: 30 0RF acetaminophen 325 mg Tablet 650 mg PO Q6H PRN (Reason: Headache/Pain Mild Scale (1-3)) 30 Days Qty: 60 0RF hydroxyzine HCl 25 mg Tablet 25 mg PO Q6H PRN (Reason: Anxiety) Qty: 90 0RF trazodone 50 mg Tablet 50 mg PO BEDTIME PRN (Reason: Insomnia) 30 Days Qty: 30 0RF melatonin 3 mg Tablet 9 mg PO BEDTIME 30 Days Qty: 90 0RF Continued clonidine HCl 0.1 mg Tablet 0.1 mg PO BID PRN (Reason: panic attack) 30 Days Qty: 60 0RF Protocol: Hold for SBP< HOLD for SBP < : 90 lidocaine [Lidocaine Pain Relief] 4 % Adhesive Patch,Medicated 1 patch transdermal DAILY 30 Days Qty: 30 0RF Protocol: Apply to: Apply to: lower back atorvastatin 10 mg Tablet 10 mg PO DAILY 30 Days Qty: 30 0RF omeprazole 40 mg Capsule,Delayed Release(Dr/Ec) 40 mg PO BID@0630,1630 30 Days Qty: 60 0RF metoprolol succinate [Toprol XL] 25 mg tablet extended release 24 hr 12.5 mg PO DAILY Qty: 7 0RF nicotine 21 mg transdermal 1XD 30 Days Qty: 30 0RF Rx Instructions: Remove old nicotine patch daily in the am. Discontinued acetaminophen 325 mg Tablet 650 mg PO Q6H PRN (Reason: Headache/Pain Mild Scale (1-3)) Qty: 0 0RF hydroxyzine HCl 25 mg Tablet 25 mg PO Q6H PRN (Reason: Anxiety) Qty: 14 0RF olanzapine 10 mg Tablet 10 mg PO BEDTIME Qty: 7 0RF lamotrigine 25 mg Tablet 25 mg PO BID Qty: 14 0RF ibuprofen 200 mg Tablet 200 mg PO Q8H Qty: 0 0RF meclizine 25 mg tablet 25 mg PO BID PRN (Reason: dizziness) Qty: 14 0RF cefuroxime axetil 250 mg tablet 250 mg PO BID 7 Days Qty: 14 0RF clonazepam [Klonopin] 0.5 mg tablet 0.5 mg PO BID PRN (Reason: anxiety attack) clonazepam 0.5 mg Tablet 0.5 mg PO BID Discharge Orders: Discharge Order (Routine); Ordered 09/03/23 Ordered By: James Garcia Diet: Advance to usual diet Activity on Discharge: As tolerated Stand Alone Forms: Patient Portal Discharge page Care Plan Goals: Care plan goals achieved in this admission no suicidality. Health Concerns: Continue with outpatient providers Plan of Treatment: Continue psychiatric treatment provided by outpatient psychiatrist services. Assessment: Elderly female with a long history of bipolar disorder who was readmitted for noncompliance and exacerbation of anxiety depression and suicidality, she had a panic attack and she had been using clonidine with for improvement. We restart her medications and titrated up Zyprexa to 15 mg p.o. q.h.s. with for improvement. At this moment no safety concerns ready to be discharged to the community.
== END 2023-09-03 11:57 | disposition home or self-care (01) | DRG 885 ==
PROVIDERS: Admitting Provider Social Worker; PCP Internal Medicine; Visit Provider Social Worker
DX: F31.9 Bipolar disorder, unspecified (principal); R45.851 Suicidal ideations; F43.10 Post-traumatic stress disorder, unspecified; R73.03 Prediabetes; J44.9 Chronic obstructive pulmonary disease, unspecified; E89.2 Postprocedural hypoparathyroidism; E78.5 Hyperlipidemia, unspecified; Z95.0 Presence of cardiac pacemaker; F17.210 Nicotine dependence, cigarettes, uncomplicated; Z71.6 Tobacco abuse counseling; Z91.148 Patient's other noncompliance with medication regimen for other reason; Z79.899 Other long term (current) drug therapy
CPT/HCPCS: 36415; 80053; 80061; 82607; 84443

== ENCOUNTER → 2023-08-26 15:10 | Outpatient (BNV) | payer MEDICARE, SELFPAY | PROVIDERS: Admitting Provider Social Worker; PCP Internal Medicine; Visit Provider Nurse Practitioner Acute Care | DX: Z02.2 Encounter for examination for admission to residential institution (principal) | CPT/HCPCS: 99429 ==

== ENCOUNTER → 2023-08-26 15:10 | Outpatient (BNV) | payer MEDICARE, SELFPAY | PROVIDERS: Admitting Provider Social Worker; PCP Internal Medicine; Visit Provider Psychiatry & Neurology Psychiatry | DX: F31.13 Bipolar disorder, current episode manic without psychotic features, severe (principal) | CPT/HCPCS: 90792; 99231; 99232; 99238 ==

== ENCOUNTER 2023-11-05 21:37 | Emergency (ER) | payer MEDICARE, SELFPAY ==
[2023-11-05 21:56] VITALS: BP 131/71; PULSE 101; RESP 18; TEMP 36.9; O2SAT 95; BMI 22.4
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
[2023-11-05 23:03] LABS: MANUAL DIFF FLAG NO
[2023-11-05 23:04] LABS: Basophils Absolute Auto 0.1 X10*3/uL (0.0-0.2); Eosinophils Absolute Auto 0.1 X10*3/uL (0.0-0.4); Eosinophils Percent Auto 1.6 % (0-4); Hematocrit 43.1 % (37.0-47.0); Hemoglobin 15.4 g/dl (12.0-16.0); Imm Gran Abs Auto 0.01 X10*3/uL (0.00-0.03); Imm Gran Pct Auto 0.1 % (0.0-0.4); Lymphocytes Absolute Auto 1.9 X10*3/uL (1.2-4.9); Mean Corpuscular HGB Conc 35.7 g/dl (31.0-35.0); Mean Corpuscular Hemoglobin 31.3 pg (27.0-33.0); Mean Corpuscular Volume 87.6 fL (80.0-98.0); Mean Platelet Volume 10.3 fL (9.4-12.3); Monocytes Absolute Auto 0.5 X10*3/uL (0.1-1.2); Monocytes Percent Auto 6.7 % (2-11); Neutrophils Absolute Auto 4.2 x10*3/uL (2.0-8.3); Neutrophils Percent Auto 62.6 % (45-73); Platelet Count 228 X10*3/uL (160-400); Red Blood Count 4.92 X10*6/uL (4.20-5.50); Red Cell Distribution Width 13.8 % (11.0-16.0); White Blood Count 6.7 X10*3/uL (4.8-10.8)
[2023-11-05 23:05] LABS: Appearance Urine Clear; Color Urine Yellow; Glucose Urine UA Negative (Negative); Leukocyte Esterase Urine Large (3+) (Negative); Nitrite Urine Negative (Negative); Specific Gravity - Urine 1.015 (1.005-1.025); UMIC TRIGGER UACC YES; Urine Blood Negative (Negative); Urine Ketones Negative (Negative); Urine Protein Trace mg/dL (Neg-Trace)
[2023-11-05 23:08] LABS: Bacteria Urine None Seen (None Seen); Hyaline Casts Urine 0-2 /LPF (0-2); RBC Urine 0-2 /HPF (0-2); UACC Culture Trigger YES; WBC Urine >50 /HPF (0-5)
[2023-11-05 23:21] LABS: Amphetamine Screen Urine Not Detected (Not Detect); Barbiturates, Urine Not Detected (Not Detect); Benzodiazepines Screen Urine Not Detected (Not Detect); Buprenorphine Scr Not Detected (Not Detect); Cannabinoid Screen Urine Not Detected (Not Detect); Cocaine Screen Urine Not Detected (Not Detect); Fentanyl, urine Not Detected (Not Detect); Methadone Screen, Urine Not Detected (Not Detect); Opiate Screen Urine Not Detected (Not Detect); Oxycodone Screen Urine Not Detected (Not Detect); Phencyclidine Screen Urine Not Detected (Not Detect)
[2023-11-05 23:36] LABS: Alanine Aminotransferase 11 U/L (0-31); Alkaline Phosphatase 69 U/L (39-117); Anion Gap 16 (12-20); Aspartate Amino Transferase 20 U/L (5-31); Bilirubin Direct 0.2 mg/dL (0.0-0.5); Bilirubin Total 0.5 mg/dL (0.0-1.0); Blood Urea Nitrogen 10 mg/dL (9-16); Calcium 9.7 mg/dL (8.4-10.2); Carbon Dioxide 21 mmol/L (22-29); Chloride 104 mmol/L (96-108); Creatinine Clr Calc Pharmacy 66.8; Estimated Glomerular Filt Rate > 60; Ethanol < 10 mg/dL; Glucose Random 155 mg/dL (60-115); Potassium 3.4 mmol/L (3.3-5.1); Sodium 138 mmol/L (135-145); Total Protein 7.1 g/dL (6.5-8.0)
--- NOTE | 2023-11-06 | ECG_ITS ---
Test Reason : check qt interval Blood Pressure : / mmHG Vent. Rate : 086 BPM Atrial Rate : 088 BPM P-R Int : 150 ms QRS Dur : 126 ms QT Int : 422 ms P-R-T Axes : -18 039 082 degrees QTc Int : 504 ms Sinus rhythm with occasional Premature ventricular complexes Left bundle branch block Abnormal ECG When compared with ECG of 21-JUL-2023 15:21, Premature ventricular complexes are now Present Vent. rate has increased BY 30 BPM Referred By: Isadora Lui Electronically Signed By:BROOKE AGUILAR
[2023-11-06] MEDS: clonazePAM 0.5 MG TABLET PO (02:28)
[2023-11-06 02:37] VITALS: BP 158/88; PULSE 99; RESP 17; TEMP 36.6; O2SAT 98
[2023-11-06 07:23] VITALS: BP 134/72; PULSE 88; RESP 18; TEMP 36.2; O2SAT 97
--- NOTE | 2023-11-06 07:36 | PC.NURSE ---
Assumed care of patient at 0645, patient appears to be in no apparent distress, ate breakfast and now sitting in the milieu offering no complaints. Continue plan of care for inpt bedsearch
[2023-11-06] MEDS: cloNIDine HCL 0.2 MG TABLET PO (12:54)
[2023-11-06 14:24] VITALS: RESP 16
--- NOTE | 2023-11-06 17:38 | PC.NURSE ---
Patient's day uneventful thus far, patient moved to [facility] have bed, sleeping at this time, respirations even and unlabored, no apparent distress noted. Continue plan of care for admission in tomorrow
--- NOTE | 2023-11-06 19:57 | PC.NURSE ---
patient seated in communal area and watching jeopardy, mildly interacts with staff periodically patient appears in no distress.
[2023-11-06 20:03] VITALS: BP 105/64; PULSE 75; RESP 16; TEMP 36.6; O2SAT 97
--- NOTE | 2023-11-07 01:15 | PC.NURSE ---
patient approached nurses station and requested to dc home maybe i dont need the bed t/w stated i would relate this to clinical staff in am.
[2023-11-07 04:56] VITALS: BP 121/78; PULSE 94; RESP 16; TEMP 36.6; O2SAT 94
[2023-11-07] MEDS: cloNIDine HCL 0.2 MG TABLET PO ×2 (04:57→12:05)
--- NOTE | 2023-11-07 07:15 | PC.NURSE ---
PT IS SLEEPING RESP EVEN AND UNLABORED. WILL CONTINUE TO MONITOR.
--- NOTE | 2023-11-07 08:01 | PC.NURSE ---
PT A/O, AMB (I) GAIT STEADY TO COMMON AREA AND BTB. PT IS EATING BREAKFAST.
[2023-11-07 08:25] VITALS: BP 106/69; PULSE 78; RESP 16; TEMP 36.6; O2SAT 97
--- NOTE | 2023-11-07 09:50 | PC.NURSE ---
PT IS REQUESTING TO GO HOME. PT DENIES ANY SI/HI/HALLUCINATION. PT STATED THAT SHE FINE/WELL ENOUGH TO BE D/C'D HOME. WILL FOLLOW UP WITH CARE TEAM. WILL CONTINUE TO MONITOR.
[2023-11-07] MEDS: cefuroxime axetiL 250 MG TABLET PO (10:01)
--- NOTE | 2023-11-07 12:06 | PC.NURSE ---
Pt asking for medication for her anxiety, she was medicated as charted, she is aware of her prn meds and schedule.
[2023-11-07 14:48] VITALS: BP 95/63; PULSE 65; RESP 16; TEMP 36.6; O2SAT 98
== END 2023-11-07 14:50 | disposition home or self-care (01) ==
PROVIDERS: Emergency Provider Emergency Medicine; PCP Internal Medicine
DX: F43.9 Reaction to severe stress, unspecified (principal); I10 Essential (primary) hypertension; J44.9 Chronic obstructive pulmonary disease, unspecified; Z86.73 Personal history of transient ischemic attack (TIA), and cerebral infarction without residual deficits
CPT/HCPCS: 36415; 80048; 80076; 80307; 81001; 85025; 87086; 93005; 99285; S9485

== ENCOUNTER → 2023-11-06 09:23 | Outpatient (BNV) | payer MEDICARE, SELFPAY | PROVIDERS: Emergency Provider Emergency Medicine; PCP Internal Medicine; Visit Provider Internal Medicine | DX: I44.7 Left bundle-branch block, unspecified (principal); I49.3 Ventricular premature depolarization | CPT/HCPCS: 93010 ==

== ENCOUNTER 2023-11-27 12:13 | Emergency (ER) | payer MEDICARE, SELFPAY ==
--- NOTE | ~2023-11-27 | CT_ITS ---
EXAMINATION: CT ANGIOGRAM NECK AND HEAD CLINICAL INFORMATION: Abnormal noncontrast CT of the head. Question of aneurysm. COMPARISON: Correlation made with CT abdomen performed on the same day. TECHNIQUE: The degree of stenosis determined by NASCET criteria. This CT examination was performed using dose optimization techniques as appropriate, variously including the following: *Automated exposure control *Adjustment of mA and/or kV according to patient size (this includes techniques or standardized protocols for targeted exams where dose is matched to indication/reason for exam; i.e. extremities or head) *Use of iterative reconstruction technique DLP: 1470 mGy-cm FINDINGS: ANGIOGRAM NECK: There is mixed atherosclerotic plaque of the aortic arch. A three-vessel branching pattern off the aortic arch is noted. There is atherosclerotic plaque at the origin of the aortic arch vessels without significant narrowing. The common carotid artery is patent. There is calcific plaque at the carotid bifurcation with close to 50% narrowing proximal right internal carotid artery. There is less than 50% narrowing left proximal internal carotid artery. The remaining internal carotid artery is patent. The vertebral arteries are codominant and both patent. ANGIOGRAM NECK: There is atherosclerotic plaque of the intracranial internal carotid arteries with mild ectasia of the intracranial internal carotid arteries. The bilateral middle and anterior cerebral arteries are patent. There is atherosclerotic plaque of the distal vertebral arteries. The basilar artery and branches as well as posterior cerebral arteries are patent. No aneurysm is identified. CT/CT angio head neck IMPRESSION: 1. No aneurysm identified. 2. Atherosclerotic plaque of the carotid bifurcations with close to 50% narrowing of the proximal right internal carotid artery and less than 50% narrowing of the proximal left internal carotid artery.
--- NOTE | ~2023-11-27 | CT_ITS ---
EXAMINATION: CT HEAD WITHOUT CONTRAST CLINICAL INFORMATION: Episode of aphasia yesterday. COMPARISON: CT head dated 05/19/2023. TECHNIQUE: Contiguous axial imaging was performed from the skull base to vertex without intravenous administration of contrast. This CT examination was performed using dose optimization techniques as appropriate, variously including the following: *Automated exposure control *Adjustment of mA and/or kV according to patient size (this includes techniques or standardized protocols for targeted exams where dose is matched to indication/reason for exam; i.e. extremities or head) *Use of iterative reconstruction technique DLP: 586 mGy-cm FINDINGS: There is no acute intracranial hemorrhage or evidence of territorial infarction. No abnormal mass effect or midline shift is seen. Melissa to white matter differentiation is well preserved. There is no abnormal attenuation within the brain parenchyma. The ventricles are normal in size. No extra-axial fluid collections are identified. The calvarium and scalp soft tissues are normal. There are atherosclerotic calcifications of the skull base vasculature. A heavily calcified aneurysm is questioned in the vicinity of the left A1 segment and the anterior communicating artery (4:22). The middle ear cavity and mastoid air cells are clear. The visualized paranasal sinuses are clear. CT/CT head/brain wo IV con IMPRESSION: 1. No acute intracranial finding is noted. 2. A small peripherally calcified aneurysm is questioned in the vicinity of the left A1 segment and anterior communicating artery. If relevant to patient management, this could be further evaluated with an elective CTA of the brain.
[2023-11-27 12:28] VITALS: BP 128/74; PULSE 92; O2SAT 97
--- NOTE | 2023-11-27 12:29 | ED.PSYCH ---
HPI - Psych General Chief Complaint: Psychiatric Symptoms Stated Complaint: Crisis, hx of ptsd and depression, per ems Time Seen by Provider: 11/27/23 12:20 Source: patient, EMS and RN notes reviewed Mode of arrival: EMS Limitations: no limitations History of Present Illness ED Provider: Lorenzo May NP HPI Narrative: Patient is a 78-year-old female with history of bipolar disorder, MDD, PTSD, COPD, parathyroidectomy, HTN presenting to the emergency department with complaint of feeling depressed and traumatized after an interaction with her neighbor over the weekend. She reports that she had agreed to make dinner for her upstairs neighbor who she describes as intellectually disabled. She reports that she reminded him multiple times, but on Saturday night after preparing a full meal, he never arrived to dinner. She then saw him yesterday and made a snide comment and he proceeded to scream fuck you at her over and over. This caused her to feel traumatized per her own report. Denies suicidal or homicidal ideation. Denies auditory or visual hallucinations. Temp on arrival noted to be 99.9, patient reports that she recently finished course of antibiotics for urinary tract infection. She reports that she took all of her medication as prescribed. complaint: feels depressed and anxiety Onset (ago): day(s) Duration: constant History of same: Yes Related Data Home Medications ?Medication ?Instructions ?Recorded ?Confirmed clonazepam 0.5 mg tablet 0.5 mg PO BID PRN anxiety attack 11/06/23 11/27/23 clonidine HCl 0.2 mg tablet 0.2 mg PO BID PRN Panic Attack(S) 11/06/23 11/27/23 quetiapine 100 mg tablet 100 - 200 mg PO BEDTIME 11/27/23 11/27/23 Allergies Allergy/AdvReac Type Severity Reaction Status Date / Time adhesive AdvReac Unknown Verified 11/27/23 12:45 aspirin AdvReac Unknown Verified 11/27/23 12:45 epinephrine AdvReac Unknown Verified 11/27/23 12:45 Review of Systems Review of Systems: As per HPI. Yes all other systems are reviewed and are negative Constitutional: Constitutional: Reports as per HPI PMFSH Past Medical History Medical History Pacemaker FH: cholecystectomy Lung nodule Syncope Osteopenia Hyperparathyroidism Bipolar disorder C. difficile diarrhea Mitral valve prolapse Tobacco abuse TIA (transient ischemic attack) Prediabetes Hyperlipidemia Depression PTSD (post-traumatic stress disorder) Essential hypertension COPD (chronic obstructive pulmonary disease) Surgical History History of appendectomy History of parathyroidectomy History of colectomy Social History Social History Household Members: None Household Members Other:: lives with self Housing: Apartment Do you presently have visiting nurse or other home services: No Alcohol intake: never Comment: Fall risk wristband. Patient Tobacco Use Status: Current everyday Tobacco user Tobacco use type: Cigarette Cigarette Packs Per Day: 3 Cigarettes Per Day: 4 Years Smoked: >30 years Smoked in Last 30 Days: Yes e-Cigarette/Vaping Use: Never Used Second Hand Smoke Exposure: No Use of substances other than those prescribed or required for medical reasons: No Substance Use Type: Prescription Drugs and Caffiene Advance Directives: Yes Advance Directives on File: Yes Advance Directives Date on File: 02/08/22 Do you have a plan to hurt others: No Plan service: No Sexual orientation: Straight/Heterosexual Physical Exam Vital Signs: Vital Signs: Last Vital Signs Temp 98.2 F 11/28/23 02:28 Pulse 86 11/28/23 02:28 Resp 16 11/28/23 02:28 BP 110/86 11/28/23 02:28 Pulse Ox 98 11/28/23 02:28 O2 Del Method Room Air 11/28/23 02:28 BMI result Body Mass Index 21.8 Vital signs have been reviewed and appear to be correct. Blood pressure normal. Heart rate normal. Respiratory rate normal. Temperature normal. Oxygen saturation normal. Const: General: cooperative, healthy appearing and no acute distress Orientation/consciousness: oriented to person, oriented to place, oriented to time and patient oriented x3 Limitations: no limitations HEENT: Head: Yes normocephalic and Yes atraumatic Ears: external ears normal General nose exam: Normal external nose present Face and sinus: Yes face symmetric Mouth: oropharynx normal and moist mucous membranes Throat: Yes uvula midline Eyes: Pupils: Equal, round and reactive pupils present Neck: Neck: Yes normal visual inspection and Yes supple Resp: Effort & Inspection: normal respiratory effort and able to speak in complete sentences Auscultation: clear to auscultation bilaterally Cardio: Rate: regular rate Rhythm: regular rhythm Heart sounds: S1 normal heart sound present and S2 normal heart sound present GI: Palpation (GI): Soft to palpation and nontender Auscultation: normoactive bowel sounds : General: Yes no CVA tenderness Back/Spine/Pelvis: Back: no CVA tenderness Skin: General skin exam: elasticity normal and turgor normal Neuro: General: oriented to person, oriented to place, oriented to time, patient oriented x3, moves all extremities, no focal motor deficits and CN's II-XI intact bilaterally Cranial nerves: Yes Equal, round and reactive pupils present Cognition (Neuro): normal cognition Extrem: General: Yes full ROM, Yes no pedal edema and Yes no calf tenderness Psych: Appearance: grossly normal Mental Status: mental status grossly normal Affect: Sad affect present Thought process: Normal thought process present Thought content: suicidality, no homicidality, no hallucinations and Depressive thoughts present Insight: Fair insight present (Psych) Judgement: Fair judgement present (Psych) NIH Stroke Scale Internal: Initial- Upon Arrival Time: 15:32 Level of Consciousness: Alert Level of Consciousness Questions: Answers both questions correctly Level of Consciousness Commands: Performs both tasks correctly Best Gaze: Normal Visual: No visual loss Facial Palsy: Normal Motor Arm (Right): No drift Motor Arm (Left): No drift Motor Leg (Right): No drift Motor Leg (Left): No drift Limb Ataxia: Absent Sensory: Normal Best Language: No aphasia Dysarthia: Normal Extinction and Inattention: No abnormality Score: 0 Course Reevaluation(s) Reevaluation #1: Patient was given to me via signed out pending urinalysis and CT head. Urinalysis is contaminated however does appear to be infected with large leuk esterases, wbc's, trace blood and 1+ bacteria. Of note CT head revealing A small peripherally calcified aneurysm is questioned in the vicinity of the left A1 segment and anterior communicating artery. If relevant to patient management, this could be further evaluated with an elective CTA of the brain. I discussed this finding with patient. She states that over the last couple of months she has had periods of aphasia. She states that she will have times where an individual be talking to her and she has the inability to understand and speak. She states that she has been seen previously at [facility] for similar symptoms and was diagnosed with aphasia and was advised to follow-up with neurology which she has not been able to do so. She states that her last episode of aphasia occurred 3 days ago. She states that while she was at a convenience store to worm picker her usual cigarettes she approached the counter and was unable to speak, unable to asked the banking services clerk for a package of cigarettes. She states that this lasted for several hours. She did not seek medical attention after this occurred. I discussed findings with patient of the head CT and she is agreeable to a CT a of the brain. I discussed this with my attending physician, Dr. Lui, who is in agreement with this plan. Urine does appear to be infected, patient will be medicated with cefuroxime 250 b.i.d. x7 days. Time: 23:06 Reevaluation #2: CTA revealing no aneurysm. Atherosclerotic plaque of the carotid bifurcations with close to 50% narrowing of the proximal right internal carotid artery and less than 50% narrowing of the proximal left internal carotid artery. Discussed with my attending, no urgent intervention needed at this time. I discussed this finding with patient, who was aware of the plaque. Patient given vascular consult for outpatient follow-up. At this point, patient is medically cleared pending care team evaluation. Time: 02:09 Reevaluation #3: Physician observation continued. VS stable, no acute events overnight. CARE team follow up. 11/28/23 7am Additional Reevaluation(s): observation care revealed that the patient does not meet psychiatric necessity for hospitalization. final disposition discussed with the patient. The patient completed observation care at 9am. Total time in observation care was 7 hours. Medications Administered Generic Name Dose Route Start Last Admin Trade Name Freq PRN Reason Stop Dose Admin Cefuroxime Axetil 250 mg 11/28/23 09:00 11/28/23 08:27 Cefuroxime Axetil 250 Mg Tablet PO 250 mg BID HAJA Administration Discontinued Medications Generic Name Dose Route Start Last Admin Trade Name Freq PRN Reason Stop Dose Admin Iohexol 75 ml 11/28/23 00:00 11/28/23 00:01 Iohexol 350 Mg/Ml 100 Ml Infus..Btl IV 11/28/23 00:01 75 ml ONCE ONE Administration Medical Decision Making Medical Decision Making MDM Narrative: Patient is a 78-year-old female with history of bipolar disorder, MDD, PTSD, COPD, parathyroidectomy, HTN presenting to the emergency department with complaint of feeling depressed and traumatized after an interaction with her neighbor over the weekend. On exam patient is awake, A+Ox3, VS WNL, afebrile, normal neurological exam without focal deficits, physical exam findings as above. Given reported symptoms and physical exam findings, initial differential includes anxiety, depression, recurrent UTI. Viral serology negative. Labs unremarkable. 15:25 Notified by Janeth from CARE team that patient reported a two hour period of aphasia yesterday to her during assessment. Patient did not mention this during initial assessment and did not have any focal deficits at that time. NIHSS 0. Will obtain CT head. Patient signed out to BRANDI Valdes pending UA and CT head. 11/27/2023, 18:21 hours, Dr. Hernandes's Note Start physician observation The patient was seen by the care team who felt the patient can be discharged however the daughter disagreed with this disposition and wants the patient to be admitted. Care team states the patient has been admitted 9 times since the patient's . Care team is requesting that we obtain a psychiatric consult to determine disposition on this patient, therefore I ordered a psychiatric consult. Therefore the patient will be placed in physician observation until disposition can be determined. Differential Diagnosis Differential Diagnoses: The differential diagnosis associated with the presentation includes As per [facility] Admission/Observation Consideration of admission/observation: Escalation of care including admission/observation considered Consult Healthcare Provider Management of the patient was discussed with: Behavioral Health Provider Lab Data [facility] Lab Attestation statement: I reviewed the patient's lab results. As per [facility] 11/27/23 12:51 11/27/23 12:51 Labs: Lab Results 11/27/23 11/27/23 Range/Units 12:51 22:48 WBC 10.8 (4.8-10.8) X10*3/uL RBC 4.28 (4.20-5.50) X10*6/uL Hgb 13.6 (12.0-16.0) g/dl Hct 38.4 (37.0-47.0) % MCV 89.7 (80.0-98.0) fL MCH 31.8 (27.0-33.0) pg MCHC 35.4 H (31.0-35.0) g/dl RDW 14.4 (11.0-16.0) % Plt Count 228 (160-400) X10*3/uL MPV 10.4 (9.4-12.3) fL Immature Gran % (Auto) 0.5 H (0.0-0.4) % Neut % (Auto) 77.1 H (45-73) % Lymph % (Auto) 13.0 L (20-40) % Marinette % (Auto) 7.6 (2-11) % Eos % (Auto) 1.2 (0-4) % Baso % (Auto) 0.6 (0-2) % Lymph # (Auto) 1.4 (1.2-4.9) X10*3/uL Marinette # (Auto) 0.8 (0.1-1.2) X10*3/uL Eos # (Auto) 0.1 (0.0-0.4) X10*3/uL Baso # (Auto) 0.1 (0.0-0.2) X10*3/uL Abs Immat Gran (auto) 0.05 H (0.00-0.03) X10*3/uL Absolute Neuts (auto) 8.3 (2.0-8.3) x10*3/uL Absolute Nucleated RBC 0.000 (0.0-0.012) X10*3/uL Nucleated RBC % (auto) 0.0 (0.0-0.2) /100WBC Sodium 137 (135-145) mmol/L Potassium 4.0 (3.3-5.1) mmol/L Chloride 104 (96-108) mmol/L Carbon Dioxide 22 (22-29) mmol/L Anion Gap 15 (12-20) BUN 11 (9-16) mg/dL Creatinine 0.74 (0.5-1.4) mg/dL Estim Creat Clear Calc 59.6 Estimated GFR > 60 Random Glucose 110 (60-115) mg/dL Calcium 9.9 (8.4-10.2) mg/dL Total Bilirubin 0.4 (0.0-1.0) mg/dL AST 15 (5-31) U/L ALT 12 (0-31) U/L Alkaline Phosphatase 78 (39-117) U/L Total Protein 7.4 (6.5-8.0) g/dL Albumin 3.9 (3.5-5.0) g/dL Urine Color Yellow Urine Appearance Cloudy Urine pH 6.5 (5.0-9.0) Ur Specific Aurelia 1.015 (1.005-1.025) Urine Protein Trace (Neg-Trace) mg/dL Urine Glucose (UA) Negative (Negative) mg/dL Urine Ketones Negative (Negative) mg/dL Urine Blood Trace H (Negative) Urine Nitrite Negative (Negative) Ur Leukocyte Esterase Large (3+) H (Negative) Urine RBC 3-5 H (0-2) /HPF Urine WBC >50 H (0-5) /HPF Ur Squamous Epith Cells 3-5 (0-2) /HPF Urine Bacteria 1+ (None Seen) Hyaline Casts 0-2 (0-2) /LPF Urine Opiates Screen Not Detected (Not Detect) Ur Buprenorphine Scrn Not Detected (Not Detect) ng/mL Ur Oxycodone Screen Not Detected (Not Detect) ng/mL Urine Methadone Screen Not Detected (Not Detect) ng/mL Urine Fentanyl Screen Not Detected (Not Detect) Ur Barbiturates Screen Not Detected (Not Detect) Ur Phencyclidine Scrn Not Detected (Not Detect) Ur Amphetamines Screen Not Detected (Not Detect) U Benzodiazepines Scrn Not Detected (Not Detect) Urine Cocaine Screen Not Detected (Not Detect) U Marijuana (THC) Screen Not Detected (Not Detect) Ethyl Alcohol < 10 mg/dL Influenza Type A (PCR) NEGATIVE (Negative) Influenza Type B (PCR) NEGATIVE (Negative) RSV RNA Qual (PCR) NEGATIVE (Negative) SARS-CoV-2 RNA (RT-PCR) NEGATIVE (Negative) Radiology Impression Discussion of test interpretation with radiology: I have reviewed the radiologist's reading. Radiologist Impression: CT/CT head/brain wo IV con IMPRESSION: 1. No acute intracranial finding is noted. 2. A small peripherally calcified aneurysm is questioned in the vicinity of the left A1 segment and anterior communicating artery. If relevant to patient management, this could be further evaluated with an elective CTA of the brain. Dictated By: Grabiel Gallardo MD CT/CT angio head neck IMPRESSION: 1. No aneurysm identified. 2. Atherosclerotic plaque of the carotid bifurcations with close to 50% narrowing of the proximal right internal carotid artery and less than 50% narrowing of the proximal left internal carotid artery. Dictated By: Marcos Rand External Record Review External record reviewed: Inpatient record, Office record and Outpatient record Critical Care Time Critical Care Time Critical Care Time: Yes Total Critical Care Time: 40 Attestation: I have personally provided critical care time exclusive of time spent on separately billable procedures. Time includes review of lab data, radiology results, discussion with consultants, and monitoring for potential decompensation. Intervention performed as documented. Discharge Plan Discharge Clinical Impression: Anxiety, Acute UTI Depression Qualifiers: Depression Type: unspecified Qualified Code(s): F32.A - Depression, unspecified Patient Disposition: Home, Self-Care Instructions: Anxiety (ED), Depression (ED), Urinary Tract Infection in Women (ED) Additional Instructions: return for worsening symptoms, fevers, pain, thoughts of self harm or any other concerns. you have disease in your carotid artery that needs to be followed by a vascular surgeon this is not an aneursym but plaques you should be taking 81mg aspirin daily unless you have a contraindication to it. please call and schedule and appointment with Dr. Valladares our vascular surgeon his number is listed below. CT/CT angio head neck IMPRESSION: 1. No aneurysm identified. 2. Atherosclerotic plaque of the carotid bifurcations with close to 50% narrowing of the proximal right internal carotid artery and less than 50% narrowing of the proximal left internal carotid artery. Prescriptions: No Action clonazepam 0.5 mg tablet 0.5 mg PO BID PRN (Reason: anxiety attack) clonidine HCl 0.2 mg tablet 0.2 mg PO BID MDD 0.4mg PRN (Reason: Panic Attack(S)) quetiapine 100 mg tablet 100 - 200 mg PO BEDTIME Referrals: [facility] [[place] Group] Interventions: Willacy-Suicide Risk Severity Scale Last Done: 11/27/23 12:48 Print Language: Serbian
[2023-11-27 12:33] VITALS: BP 129/77; PULSE 87; RESP 18; TEMP 37.7; O2SAT 96; BMI 21.8
[2023-11-27 12:46] VITALS: BP 129/77; PULSE 87; RESP 18; TEMP 37.7; O2SAT 96
[2023-11-27 12:56] LABS: MANUAL DIFF FLAG NO
[2023-11-27 13:05] LABS: Basophils Absolute Auto 0.1 X10*3/uL (0.0-0.2); Basophils Percent Auto 0.6 % (0-2); Eosinophils Absolute Auto 0.1 X10*3/uL (0.0-0.4); Eosinophils Percent Auto 1.2 % (0-4); Hematocrit 38.4 % (37.0-47.0); Hemoglobin 13.6 g/dl (12.0-16.0); Imm Gran Abs Auto 0.05 X10*3/uL (0.00-0.03); Imm Gran Pct Auto 0.5 % (0.0-0.4); Lymphocytes Absolute Auto 1.4 X10*3/uL (1.2-4.9); Mean Corpuscular HGB Conc 35.4 g/dl (31.0-35.0); Mean Corpuscular Hemoglobin 31.8 pg (27.0-33.0); Mean Corpuscular Volume 89.7 fL (80.0-98.0); Mean Platelet Volume 10.4 fL (9.4-12.3); Monocytes Absolute Auto 0.8 X10*3/uL (0.1-1.2); Monocytes Percent Auto 7.6 % (2-11); Neutrophils Absolute Auto 8.3 x10*3/uL (2.0-8.3); Neutrophils Percent Auto 77.1 % (45-73); Platelet Count 228 X10*3/uL (160-400); Red Blood Count 4.28 X10*6/uL (4.20-5.50); Red Cell Distribution Width 14.4 % (11.0-16.0); White Blood Count 10.8 X10*3/uL (4.8-10.8)
[2023-11-27 13:21] LABS: Alanine Aminotransferase 12 U/L (0-31); Albumin Level 3.9 g/dL (3.5-5.0); Alkaline Phosphatase 78 U/L (39-117); Anion Gap 15 (12-20); Aspartate Amino Transferase 15 U/L (5-31); Bilirubin Total 0.4 mg/dL (0.0-1.0); Blood Urea Nitrogen 11 mg/dL (9-16); Calcium 9.9 mg/dL (8.4-10.2); Carbon Dioxide 22 mmol/L (22-29); Chloride 104 mmol/L (96-108); Creatinine Clr Calc Pharmacy 59.6; Estimated Glomerular Filt Rate > 60; Ethanol < 10 mg/dL; Glucose Random 110 mg/dL (60-115); Sodium 137 mmol/L (135-145); Total Protein 7.4 g/dL (6.5-8.0)
[2023-11-27 13:44] LABS: Influenza A PCR NEGATIVE (Negative); Influenza B PCR NEGATIVE (Negative); Resp Syncy Virus RNA Qual PCR NEGATIVE (Negative); SARS COV2 PCR INHOUSE NEGATIVE (Negative)
--- NOTE | 2023-11-27 17:53 | MHC.CARE ---
Patient evaluated by the CARE Team, disposition is reassess in the morning. ED provider, Leia May NP in agreement with plan.
[2023-11-27 22:55] LABS: Appearance Urine Cloudy; Color Urine Yellow; Glucose Urine UA Negative (Negative); Leukocyte Esterase Urine Large (3+) (Negative); Nitrite Urine Negative (Negative); PH 6.5 (5.0-9.0); Specific Gravity - Urine 1.015 (1.005-1.025); UMIC TRIGGER UACC YES; Urine Blood Trace (Negative); Urine Ketones Negative (Negative); Urine Protein Trace mg/dL (Neg-Trace)
[2023-11-27 22:58] LABS: Bacteria Urine 1+ (None Seen); Hyaline Casts Urine 0-2 /LPF (0-2); UACC Culture Trigger YES; WBC Urine >50 /HPF (0-5)
[2023-11-27 23:05] LABS: Amphetamine Screen Urine Not Detected (Not Detect); Barbiturates, Urine Not Detected (Not Detect); Benzodiazepines Screen Urine Not Detected (Not Detect); Buprenorphine Scr Not Detected (Not Detect); Cannabinoid Screen Urine Not Detected (Not Detect); Cocaine Screen Urine Not Detected (Not Detect); Fentanyl, urine Not Detected (Not Detect); Methadone Screen, Urine Not Detected (Not Detect); Opiate Screen Urine Not Detected (Not Detect); Oxycodone Screen Urine Not Detected (Not Detect); Phencyclidine Screen Urine Not Detected (Not Detect)
[2023-11-28] MEDS: iohexoL 350 MG/ML 100 ML INFUS..BTL 75 ML IV (00:01)
[2023-11-28 02:28] VITALS: BP 110/86; PULSE 86; RESP 16; TEMP 36.8; O2SAT 98
--- NOTE | 2023-11-28 06:52 | PC.NURSE ---
Patient slept intermittently, no distress observed/reported, med rec completed/pending approval, patient + for UTI initiated with Ceftin 250 mg tablet BID, patient was assessed by care team disposition [facility] follow up, VSS, will continue to monitor
[2023-11-28] MEDS: cefuroxime axetiL 250 MG TABLET PO (08:27)
--- NOTE | 2023-11-28 09:32 | PC.NURSE ---
Assumed care of patient at 0645, patient ambulating around BH pod, offering no complaints to this RN, respirations even and unlabored, skin pwd. patient calm and cooperative, understanding of plan of care. Awaiting psych consult for d/c
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
[2023-11-28 11:04] VITALS: BP 112/76; PULSE 75; RESP 14; TEMP 37.1; O2SAT 98
--- NOTE | 2023-11-28 16:25 | MHC.CARE ---
Pt was referred to [facility] for three day follow up as N reported they do not do follow up unless they assess the pt. [facility] received referral and it was activated, spoke with Christina@ [facility].
== END 2023-11-28 11:04 | disposition home or self-care (01) ==
PROVIDERS: Registered Nurse Emergency; Emergency Provider Emergency Medicine
DX: F32.A Depression, unspecified (principal); F41.9 Anxiety disorder, unspecified; N39.0 Urinary tract infection, site not specified; F43.10 Post-traumatic stress disorder, unspecified; I10 Essential (primary) hypertension; J44.9 Chronic obstructive pulmonary disease, unspecified; E78.5 Hyperlipidemia, unspecified; F17.210 Nicotine dependence, cigarettes, uncomplicated; Z95.0 Presence of cardiac pacemaker; Z86.73 Personal history of transient ischemic attack (TIA), and cerebral infarction without residual deficits; Z79.899 Other long term (current) drug therapy; Z03.818 Encounter for observation for suspected exposure to other biological agents ruled out
CPT/HCPCS: 0241U; 70450; 70496; 70498; 80053; 80307; 81001; 81003; 85025; 87086; 99284; 99285; Q9967; S9485

== ENCOUNTER → 2023-11-27 12:49 | Outpatient (BNV) | payer MEDICARE, SELFPAY | PROVIDERS: Emergency Provider Emergency Medicine; Visit Provider Social Worker | DX: F31.9 Bipolar disorder, unspecified (principal) | CPT/HCPCS: 99285 ==

== ENCOUNTER 2023-12-18 16:29 | Emergency (ER) | payer MEDICARE, SELFPAY ==
--- NOTE | ~2023-12-18 | XR_ITS ---
EXAMINATION: XR CHEST CLINICAL INFORMATION: Dizziness COMPARISON: Previous chest x-ray most recent May 2023 TECHNIQUE: 2 views of the chest were obtained. FINDINGS: Left subclavian dual-chamber pacemaker with leads projecting over the right atrium and right ventricle. The cardiac silhouette is enlarged but stable. The lungs are clear. No pleural effusion or pneumothorax. Bony structures are unremarkable. XR/XR chest 2V IMPRESSION: Stable enlargement of the cardiac silhouette. No evidence for acute disease in the chest.
--- NOTE | 2023-12-18 16:56 | ED_ITS ---
HPI - General Adult General Chief complaint: Weakness Stated complaint: felling faint, dizzy, weak Time Seen by Provider: 12/18/23 16:54 History of Present Illness ED Provider: Dr. Cooper HPI narrative: 78 y/o F patient; PMH bipolar disorder, MDD, PTSD, COPD, parathyroidectomy, HTN; presents from home reporting generalized weakness and fatigue. Patient previously seen in this hospital multiple times recently for psychiatric concerns. She is requesting admission to in-patient psychiatric unit but denies suicidal or homicidal ideation. She was treated for a UTI on 11/27/2023, 11/05/2023, 07/21/2023. However each urine culture has been negative for organism growth. She denies: nausea/vomiting, diarrhea, chest pain, SOB, cough/congestion, syncope, dysuria/frequency. Related Data Home Medications ?Medication ?Instructions ?Recorded ?Confirmed clonazepam 0.5 mg tablet 0.5 mg PO BID PRN anxiety attack 11/06/23 11/27/23 clonidine HCl 0.2 mg tablet 0.2 mg PO BID PRN Panic Attack(S) 11/06/23 11/27/23 quetiapine 100 mg tablet 100 - 200 mg PO BEDTIME 11/27/23 11/27/23 Previous Rx's ?Medication ?Instructions ?Recorded cefuroxime axetil 250 mg tablet 250 mg PO BID 7 days #14 tabs 11/28/23 Allergies Allergy/AdvReac Type Severity Reaction Status Date / Time adhesive AdvReac Unknown Verified 12/18/23 17:21 aspirin AdvReac Unknown Verified 12/18/23 17:21 epinephrine AdvReac Unknown Verified 12/18/23 17:21 Review of Systems 2 Review of Systems: Yes all other systems are reviewed and are negative Neurologic: Denies Abnormal speech present and Denies Sensory deficit (Neuro) [facility] Past Medical History Attestation statement: The following information was validated with the patient. Source: old records reviewed Medical History Pacemaker FH: cholecystectomy Lung nodule Syncope Osteopenia Hyperparathyroidism Bipolar disorder C. difficile diarrhea Mitral valve prolapse Tobacco abuse TIA (transient ischemic attack) Prediabetes Hyperlipidemia Depression PTSD (post-traumatic stress disorder) Essential hypertension COPD (chronic obstructive pulmonary disease) Surgical History History of appendectomy History of parathyroidectomy History of colectomy Social History Social History Household Members: None Household Members Other:: lives with self Housing: Apartment Do you presently have visiting nurse or other home services: No Alcohol intake: never Comment: Fall risk wristband. Patient Tobacco Use Status: Current everyday Tobacco user Tobacco use type: Cigarette Cigarette Packs Per Day: 3 Cigarettes Per Day: 4 Years Smoked: >30 years Smoked in Last 30 Days: Yes e-Cigarette/Vaping Use: Never Used Second Hand Smoke Exposure: No Use of substances other than those prescribed or required for medical reasons: No Substance Use Type: Prescription Drugs and Caffiene Advance Directives: Yes Advance Directives Information Provided: No Advance Directives on File: No Advance Directives Date on File: 02/08/22 service: No Sexual orientation: Straight/Heterosexual Physical Exam ED Vital Signs: Vital Signs - 24 hr 12/18/23 16:58 12/18/23 17:30 12/18/23 19:58 Temperature 98.0 F 98.3 F Pulse Rate 65 71 67 Respiratory Rate 18 20 16 Blood Pressure 105/54 L 102/57 L Pulse Oximetry 95 95 92 Oxygen Delivery Method Room Air Room Air Room Air BMI result Body Mass Index 19.9 Patient is afebrile and hemodynamically stable. Const Other: Tearful General: cooperative Orientation/consciousness: patient oriented x3 HENMT Head: Yes normal to inspection and Yes atraumatic Eyes General: appearance normal, both eyes and all related structures Pupils: Equal, round and reactive pupils present EOM: EOMs intact bilaterally Neck Neck: Yes normal visual inspection, Yes full ROM, Yes supple and No tender Chest Chest palpation & inspection: normal inspection of the chest and normal palpation of entire chest wall Resp Effort & Inspection: normal respiratory effort, able to speak in complete sentences, no cough and no respiratory distress Auscultation: clear to auscultation bilaterally Cardio Rate: regular rate Rhythm: regular rhythm Peripheral pulses: Peripheral pulses 2+ throughout GI Inspection: Yes normal to inspection, No Abdominal wall edema and No distended Palpation (GI): Soft to palpation, not firm, nontender, no guarding and not rigid Auscultation: normal bowel sounds Neuro General: patient oriented x3, gait normal and moves all extremities Cranial nerves: Yes Equal, round and reactive pupils present Speech: No Abnormal speech present Motor exam (neuro): 5/5 motor strength present throughout Sensory Exam: No Sensory deficit (Neuro) Coordination: [id number] test normal and [id number] test normal Course Course Course Narrative: Patient is afebrile and hemodynamically stable. Do not believe patient meets criteria for in-patient psychiatric care at this time. Patient currently follows with a therapist but was frustrated that she tried to call him yesterday and he did not answer. Will obtain screening labs, EKG, CXR to assess for etiology of dizziness/lightheadedness. Reevaluation(s) Reevaluation #1: Laboratory studies reviewed. Unremarkable other than very mild hyponatremia. Troponin 13.3, repeat troponin ordered. Repeat troponin flat. CXR unremarkable. Ordered for care consult. Plan: Sign out pending care consult, re-evaluation, and disposition to Dr. Wilson Condition: stable Medical Decision Making Lab Data 12/18/23 18:02 12/18/23 18:02 Labs: Lab Results 12/18/23 12/18/23 Range/Units 18:02 20:05 WBC 5.8 (4.8-10.8) X10*3/uL RBC 3.91 L (4.20-5.50) X10*6/uL Hgb 12.3 (12.0-16.0) g/dl Hct 34.3 L (37.0-47.0) % MCV 87.7 (80.0-98.0) fL MCH 31.5 (27.0-33.0) pg MCHC 35.9 H (31.0-35.0) g/dl RDW 14.4 (11.0-16.0) % Plt Count 199 (160-400) X10*3/uL MPV 10.7 (9.4-12.3) fL Immature Gran % (Auto) 0.7 H (0.0-0.4) % Neut % (Auto) 56.8 (45-73) % Lymph % (Auto) 29.7 (20-40) % [place] % (Auto) 8.8 (2-11) % Eos % (Auto) 3.1 (0-4) % Baso % (Auto) 0.9 (0-2) % Lymph # (Auto) 1.7 (1.2-4.9) X10*3/uL [place] # (Auto) 0.5 (0.1-1.2) X10*3/uL Eos # (Auto) 0.2 (0.0-0.4) X10*3/uL Baso # (Auto) 0.1 (0.0-0.2) X10*3/uL Abs Immat Gran (auto) 0.04 H (0.00-0.03) X10*3/uL Absolute Neuts (auto) 3.3 (2.0-8.3) x10*3/uL Absolute Nucleated RBC 0.000 (0.0-0.012) X10*3/uL Nucleated RBC % (auto) 0.0 (0.0-0.2) /100WBC Sodium 134 L (135-145) mmol/L Potassium 3.9 (3.3-5.1) mmol/L Chloride 104 (96-108) mmol/L Carbon Dioxide 25 (22-29) mmol/L Anion Gap 9 L (12-20) BUN 12 (9-16) mg/dL Creatinine 0.73 (0.5-1.4) mg/dL Estim Creat Clear Calc 60.6 Estimated GFR > 60 Random Glucose 114 (60-115) mg/dL Calcium 9.4 (8.4-10.2) mg/dL Total Bilirubin 0.3 (0.0-1.0) mg/dL Direct Bilirubin 0.1 (0.0-0.5) mg/dL AST 15 (5-31) U/L ALT 13 (0-31) U/L Alkaline Phosphatase 62 (39-117) U/L Troponin I High Sens 13.3 D 12.7 (<3.5-17.0) ng/L Total Protein 6.1 L (6.5-8.0) g/dL Albumin 3.4 L (3.5-5.0) g/dL Lipase 24 (8-78) U/L Discharge Plan Discharge Clinical Impression: MDD (major depressive disorder), recurrent episode, moderate Patient Disposition: Still a Patient Prescriptions: No Action clonazepam 0.5 mg tablet 0.5 mg PO BID PRN (Reason: anxiety attack) clonidine HCl 0.2 mg tablet 0.2 mg PO BID MDD 0.4mg PRN (Reason: Panic Attack(S)) quetiapine 100 mg tablet 100 - 200 mg PO BEDTIME cefuroxime axetil 250 mg tablet 250 mg PO BID 7 Days Qty: 14 0RF Print Language: Danish
[2023-12-18 16:58] VITALS: BP 105/54; BP 106/58; PULSE 65; PULSE 68; RESP 18; TEMP 36.7; O2SAT 95; O2SAT 97; BMI 19.9
--- NOTE | 2023-12-18 17:26 | ECG_ITS ---
Test Reason : SCREENING Blood Pressure : / mmHG Vent. Rate : 065 BPM Atrial Rate : 050 BPM P-R Int : 000 ms QRS Dur : 172 ms QT Int : 534 ms P-R-T Axes : 000 -83 091 degrees QTc Int : 555 ms Ventricular-paced rhythm Abnormal ECG When compared with ECG of 06-NOV-2023 09:23, Electronic ventricular pacemaker has replaced Sinus rhythm Referred By: May Cooper Electronically Signed By:BROOKE AGUILAR
[2023-12-18 17:30] VITALS: PULSE 71; RESP 20; O2SAT 95
[2023-12-18 18:08] LABS: MANUAL DIFF FLAG NO
--- NOTE | 2023-12-18 18:17 | PC.NURSE ---
Pt presents to ED BIBA reporting generalized weakness and fatigue, denies pain or discomfort or SOB or dizziness. States feeling down and depressed but denies SI or HI. Speaking full sentences.
[2023-12-18 18:22] LABS: Basophils Absolute Auto 0.1 X10*3/uL (0.0-0.2); Basophils Percent Auto 0.9 % (0-2); Eosinophils Absolute Auto 0.2 X10*3/uL (0.0-0.4); Eosinophils Percent Auto 3.1 % (0-4); Hematocrit 34.3 % (37.0-47.0); Hemoglobin 12.3 g/dl (12.0-16.0); Imm Gran Abs Auto 0.04 X10*3/uL (0.00-0.03); Imm Gran Pct Auto 0.7 % (0.0-0.4); Lymphocytes Absolute Auto 1.7 X10*3/uL (1.2-4.9); Lymphocytes Percent Auto 29.7 % (20-40); Mean Corpuscular HGB Conc 35.9 g/dl (31.0-35.0); Mean Corpuscular Hemoglobin 31.5 pg (27.0-33.0); Mean Corpuscular Volume 87.7 fL (80.0-98.0); Mean Platelet Volume 10.7 fL (9.4-12.3); Monocytes Absolute Auto 0.5 X10*3/uL (0.1-1.2); Monocytes Percent Auto 8.8 % (2-11); Neutrophils Absolute Auto 3.3 x10*3/uL (2.0-8.3); Neutrophils Percent Auto 56.8 % (45-73); Platelet Count 199 X10*3/uL (160-400); Red Blood Count 3.91 X10*6/uL (4.20-5.50); Red Cell Distribution Width 14.4 % (11.0-16.0); White Blood Count 5.8 X10*3/uL (4.8-10.8)
[2023-12-18 18:34] LABS: Alanine Aminotransferase 13 U/L (0-31); Albumin Level 3.4 g/dL (3.5-5.0); Alkaline Phosphatase 62 U/L (39-117); Anion Gap 9 (12-20); Aspartate Amino Transferase 15 U/L (5-31); Bilirubin Direct 0.1 mg/dL (0.0-0.5); Bilirubin Total 0.3 mg/dL (0.0-1.0); Blood Urea Nitrogen 12 mg/dL (9-16); Calcium 9.4 mg/dL (8.4-10.2); Carbon Dioxide 25 mmol/L (22-29); Chloride 104 mmol/L (96-108); Creatinine Clr Calc Pharmacy 60.6; Estimated Glomerular Filt Rate > 60; Glucose Random 114 mg/dL (60-115); Lipase 24 U/L (8-78); Potassium 3.9 mmol/L (3.3-5.1); Sodium 134 mmol/L (135-145); Total Protein 6.1 g/dL (6.5-8.0)
[2023-12-18 18:41] LABS: Troponin-I High Sensitivity 13.3 ng/L (<3.5-17.0)
--- NOTE | 2023-12-18 19:34 | PC.NURSE ---
Assumed care of pt. Pt lying on stretcher, no acute distress at this time. Pt endorsing depression with recent life stressors, denies SI/HI at this time. REquested CARE eval with ED provider, ordered.
[2023-12-18 19:58] VITALS: BP 102/57; PULSE 67; RESP 16; TEMP 36.8; O2SAT 92
[2023-12-18 20:31] LABS: Troponin-I High Sensitivity 12.7 ng/L (<3.5-17.0)
[2023-12-18 21:51] VITALS: BP 108/70; PULSE 70; RESP 16; TEMP 36.4; O2SAT 92
--- NOTE | 2023-12-19 00:46 | PC.NURSE ---
Pt personl medications obtained from pt, secured per protocol, handed to [facility] d/t pharmacy closed at this time. All other belongings bagged and documented. Pt transfered to Pod.
[2023-12-19 06:11] VITALS: BP 123/78; PULSE 80; RESP 17; TEMP 36.1; O2SAT 91
--- NOTE | 2023-12-19 07:15 | PC.NURSE ---
Assumed care of patient at 0645. Patient is observed resting quietly in their bed. Breathing is even and unlabored with no signs of distress observed. Will continue plan of care.
[2023-12-19] MEDS: Dabigatran Etexilate Mesylate 150 MG CAPSULE PO ×2 (10:33→21:37)
[2023-12-19 15:30] VITALS: BP 123/81; PULSE 79; RESP 20; TEMP 36.9; O2SAT 96
--- NOTE | 2023-12-19 19:14 | PC.NURSE ---
Assumed care of patient at 1900, patient appears to be sleeping, respirations even and unlabored, no apparent distress at this time
[2023-12-19] MEDS: clonazePAM 0.5 MG TABLET PO (19:36)
[2023-12-19] MEDS: QUEtiapine Fumarate 100 MG TABLET PO (21:37)
[2023-12-19 21:45] VITALS: BP 128/77; PULSE 72; RESP 20; TEMP 36.1; O2SAT 95
--- NOTE | 2023-12-20 06:04 | PC.NURSE ---
Patient slept intermittently, no distress observed/reported, VSS, denied SI/HI/AVH, disposition per care team is section 12 inpatient [facility]eroy-bed search, psych consult ordered for medication review, will continue to monitor.
[2023-12-20 06:47] VITALS: BP 102/81; PULSE 78; TEMP 36.4; O2SAT 95
[2023-12-20 08:21] LABS: Appearance Urine Clear; Color Urine Yellow; Glucose Urine UA Negative (Negative); Leukocyte Esterase Urine Large (3+) (Negative); Nitrite Urine Negative (Negative); UMIC TRIGGER UACC YES; Urine Blood Negative (Negative); Urine Ketones Negative (Negative); Urine Protein Negative (Neg-Trace)
[2023-12-20 08:26] LABS: Bacteria Urine None Seen (None Seen); Hyaline Casts Urine 0-2 /LPF (0-2); RBC Urine 0-2 /HPF (0-2); Squamous Epithelial Cell Urine 0-2 /HPF (0-2); UACC Culture Trigger YES
[2023-12-20 08:32] LABS: Amphetamine Screen Urine Not Detected (Not Detect); Barbiturates, Urine Not Detected (Not Detect); Benzodiazepines Screen Urine Not Detected (Not Detect); Buprenorphine Scr Not Detected (Not Detect); Cannabinoid Screen Urine Not Detected (Not Detect); Cocaine Screen Urine Not Detected (Not Detect); Fentanyl, urine Not Detected (Not Detect); Methadone Screen, Urine Not Detected (Not Detect); Opiate Screen Urine Not Detected (Not Detect); Oxycodone Screen Urine Not Detected (Not Detect); Phencyclidine Screen Urine Not Detected (Not Detect)
[2023-12-20] MEDS: Dabigatran Etexilate Mesylate 150 MG CAPSULE PO (09:36)
[2023-12-20 12:29] VITALS: BP 127/83; PULSE 84; RESP 16; TEMP 36.9; O2SAT 97
[2023-12-20] MEDS: clonazePAM 0.5 MG TABLET PO (12:35)
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
[2023-12-20 15:16] VITALS: BP 126/78; PULSE 82; RESP 16; TEMP 36.1; O2SAT 95
[2023-12-20 15:55] VITALS: BP 126/78; PULSE 82; RESP 16; TEMP 36.1; O2SAT 95
== END 2023-12-20 16:25 | disposition home or self-care (01) ==
PROVIDERS: Emergency Medicine; Emergency Provider Emergency Medicine
DX: F33.1 Major depressive disorder, recurrent, moderate (principal); E87.1 Hypo-osmolality and hyponatremia; F31.9 Bipolar disorder, unspecified; F43.10 Post-traumatic stress disorder, unspecified; R53.1 Weakness; R42 Dizziness and giddiness; E11.9 Type 2 diabetes mellitus without complications; I10 Essential (primary) hypertension; E78.5 Hyperlipidemia, unspecified; J44.9 Chronic obstructive pulmonary disease, unspecified; F17.210 Nicotine dependence, cigarettes, uncomplicated; Z95.0 Presence of cardiac pacemaker; Z86.73 Personal history of transient ischemic attack (TIA), and cerebral infarction without residual deficits; Z79.899 Other long term (current) drug therapy
CPT/HCPCS: 36415; 71046; 80048; 80076; 80307; 81001; 83690; 84484; 85025; 87086; 93005; 99285; S9485

== ENCOUNTER → 2023-12-18 17:26 | Outpatient (BNV) | payer MEDICARE, SELFPAY | PROVIDERS: Emergency Provider Emergency Medicine; Visit Provider Internal Medicine | DX: R94.31 Abnormal electrocardiogram [ECG] [EKG] (principal) | CPT/HCPCS: 93010 ==

== ENCOUNTER → 2023-12-18 18:16 | Outpatient (BNV) | payer MEDICARE, SELFPAY | PROVIDERS: Emergency Provider Emergency Medicine; Visit Provider Psychiatry & Neurology Psychiatry | DX: F31.9 Bipolar disorder, unspecified (principal); J44.9 Chronic obstructive pulmonary disease, unspecified; F43.10 Post-traumatic stress disorder, unspecified | CPT/HCPCS: 99283 ==

== ENCOUNTER 2023-12-26 10:01 | Inpatient (IN) | payer MEDICARE, SELFPAY ==
--- NOTE | 2023-12-26 | ECG_ITS ---
Test Reason : PROLONGED QTC Blood Pressure : / mmHG Vent. Rate : 069 BPM Atrial Rate : 064 BPM P-R Int : 000 ms QRS Dur : 178 ms QT Int : 536 ms P-R-T Axes : 000 -82 095 degrees QTc Int : 574 ms Ventricular-paced rhythm alternating with sinus rhythm Abnormal ECG When compared with ECG of 18-DEC-2023 17:48, Vent. rate has increased BY 4 BPM Referred By: Tanvi Villalba Electronically Signed By:Mati Emmanuel
[2023-12-26 10:13] VITALS: BP 108/66; BP 90/56; PULSE 65; PULSE 78; RESP 16; TEMP 36.6; O2SAT 92; O2SAT 98; BMI 30.1
[2023-12-26 10:21] VITALS: RESP 16
--- NOTE | 2023-12-26 10:31 | ED.PSYCH ---
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 She has no SI/HI and takes her medications. MD complaint: feels depressed Onset (ago): year(s) Duration: getting worse History of same: Yes Relieving factors: none Exacerbating factors: other Context: significant life stressor Associated psychiatric symptoms: depression Associated symptoms: denies other symptoms Treatments prior to arrival: none Related Data Home Medications ?Medication ?Instructions ?Recorded ?Confirmed clonazepam 0.5 mg tablet 0.5 mg PO BID PRN anxiety attack 11/06/23 12/26/23 clonidine HCl 0.2 mg tablet 0.2 mg PO BID PRN Panic Attack(S) 11/06/23 12/26/23 quetiapine 100 mg tablet 100 - 200 mg PO BEDTIME 11/27/23 12/26/23 dabigatran etexilate 150 mg capsule 150 mg PO BID 12/19/23 12/26/23 Allergies Allergy/AdvReac Type Severity Reaction Status Date / Time adhesive AdvReac Unknown Verified 12/26/23 10:15 aspirin AdvReac Unknown Verified 12/26/23 10:15 epinephrine AdvReac Unknown Verified 12/26/23 10:15 Review of Systems Review of Systems: Constitutional : No Fever, No Chills ENT/Mouth : No Ear Pain, No Nasal Congestion, No sore throat Eyes: No Eye Pain, No Swelling, No Redness Cardiovascular : No Chest Pain, No SOB Respiratory : No Cough, No Sputum, No Dyspnea Gastrointestinal : No Nausea, No Vomiting, No Diarrhea, No Hematochezia, No Melena Genitourinary : No Dysuria, No Urinary Frequency, No Hematuria Musculoskeletal : No Myalgias Skin : No Skin Lesions, No rash Neuro : No Weakness, No Numbness, No Paresthesias, No Dizziness, No Headache Psych : positive Anxiety, positive Depression, no SI/HI Heme/Lymph: No Lymphadenopathy Endocrine : No Polyuria, No Polydipsia All other systems reviewed and are negative [facility] Past Medical History Attestation statement: The following information was validated with the patient. Source: old records reviewed Medical History Pacemaker FH: cholecystectomy Lung nodule Syncope Osteopenia Hyperparathyroidism Bipolar disorder C. difficile diarrhea Mitral valve prolapse Tobacco abuse TIA (transient ischemic attack) Prediabetes Hyperlipidemia Depression PTSD (post-traumatic stress disorder) Essential hypertension COPD (chronic obstructive pulmonary disease) Surgical History History of appendectomy History of parathyroidectomy History of colectomy Social History Social History Household Members: None Household Members Other:: lives with self Housing: Apartment Do you presently have visiting nurse or other home services: No Alcohol intake: never Comment: Fall risk wristband. Patient Tobacco Use Status: Current everyday Tobacco user Tobacco use type: Cigarette Cigarette Packs Per Day: 3 Cigarettes Per Day: 4 Years Smoked: >30 years Smoked in Last 30 Days: Yes e-Cigarette/Vaping Use: Never Used Second Hand Smoke Exposure: No Use of substances other than those prescribed or required for medical reasons: No Substance Use Type: Prescription Drugs and Caffiene Advance Directives: Yes Advance Directives on File: Yes Advance Directives Date on File: 02/08/22 Do you have a plan to hurt others: No Plan service: No Sexual orientation: Straight/Heterosexual Physical Exam Vital Signs: Vital Signs: Last Vital Signs Temp 97.9 F 12/26/23 10:13 Pulse 66 12/26/23 10:45 Resp 16 12/26/23 10:45 BP 100/64 12/26/23 10:45 Pulse Ox 97 12/26/23 10:45 O2 Del Method Room Air 12/26/23 10:45 BMI result Body Mass Index 30.1 Appearance: Alert. Oriented X3. No acute distress. anxious Eyes: Pupils equal, round and reactive to light. ENT: Pharynx normal. Neck: Normal inspection. Neck supple. CVS: Normal heart rate and rhythm. Pulses normal. Respiratory: No respiratory distress. Breath sounds normal. Abdomen: Soft and non-tender. Skin: Skin warm and dry. Normal skin color. Normal skin turgor. Extremities: No lower extremity edema. Neuro: Oriented X 3. No motor deficit. No sensory deficit. CN2-12 intact Course Course Course Narrative: acute UTI ceftin started Reevaluation(s) Reevaluation #1: observation care revealed that the patient does meet psychiatric necessity for hospitalization. final disposition discussed with the patient. The patient completed observation care at 3pm. Total time in observation care was 4 hours. Medications Administered Generic Name Dose Route Start Last Admin Trade Name Freq PRN Reason Stop Dose Admin Cefuroxime Axetil 250 mg 12/26/23 12:15 12/26/23 12:52 Cefuroxime Axetil 250 Mg Tablet PO 01/02/24 12:14 250 mg BID HAJA Administration Medical Decision Making Medical Decision Making MDM Narrative: 78 yo female with PMH of COPD, depression, HLD, DM, depression, PTSD here with c/o worsening depression but no SI/HI has similar complaints in the past at this time will need labs, CARE team consult. Differential Diagnosis Differential Diagnoses: The differential diagnosis associated with the presentation includes chronic depression, poor social support Admission/Observation Consideration of admission/observation: Escalation of care including admission/observation considered physician observation started at 1035am pending CARE team Consult Healthcare Provider Management of the patient was discussed with: Behavioral Health Provider Lab Data [facility] Lab Attestation statement: I reviewed the patient's lab results. 12/26/23 10:37 12/26/23 10:37 Labs: Lab Results 12/26/23 12/26/23 12/26/23 Range/Units 10:37 10:38 11:36 WBC 5.1 (4.8-10.8) X10*3/uL RBC 4.06 L (4.20-5.50) X10*6/uL Hgb 12.7 (12.0-16.0) g/dl Hct 35.4 L (37.0-47.0) % MCV 87.2 (80.0-98.0) fL MCH 31.3 (27.0-33.0) pg MCHC 35.9 H (31.0-35.0) g/dl RDW 14.4 (11.0-16.0) % Plt Count 181 (160-400) X10*3/uL MPV 10.7 (9.4-12.3) fL Immature Gran % (Auto) 0.2 (0.0-0.4) % Neut % (Auto) 54.2 (45-73) % Lymph % (Auto) 29.4 (20-40) % [place] % (Auto) 12.2 H (2-11) % Eos % (Auto) 3.2 (0-4) % Baso % (Auto) 0.8 (0-2) % Lymph # (Auto) 1.5 (1.2-4.9) X10*3/uL [place] # (Auto) 0.6 (0.1-1.2) X10*3/uL Eos # (Auto) 0.2 (0.0-0.4) X10*3/uL Baso # (Auto) 0.0 (0.0-0.2) X10*3/uL Abs Immat Gran (auto) 0.01 (0.00-0.03) X10*3/uL Absolute Neuts (auto) 2.8 (2.0-8.3) x10*3/uL Absolute Nucleated RBC 0.000 (0.0-0.012) X10*3/uL Nucleated RBC % (auto) 0.0 (0.0-0.2) /100WBC PT 14.2 H (11.1-13.3) SEC INR 1.2 H (0.9-1.1) Sodium 132 L (135-145) mmol/L Potassium 4.0 (3.3-5.1) mmol/L Chloride 102 (96-108) mmol/L Carbon Dioxide 25 (22-29) mmol/L Anion Gap 9 L (12-20) BUN 10 (9-16) mg/dL Creatinine 0.66 (0.5-1.4) mg/dL Estim Creat Clear Calc 70.1 Estimated GFR > 60 Random Glucose 123 H (60-115) mg/dL Calcium 9.5 (8.4-10.2) mg/dL Total Bilirubin 0.3 (0.0-1.0) mg/dL AST 19 (5-31) U/L ALT 16 (0-31) U/L Alkaline Phosphatase 64 (39-117) U/L Total Protein 6.3 L (6.5-8.0) g/dL Albumin 3.5 (3.5-5.0) g/dL Urine Color Yellow Urine Appearance Clear Urine pH 7.0 (5.0-9.0) Ur Specific [place] <= 1.005 (1.005-1.025) Urine Protein Negative (Neg-Trace) mg/dL Urine Glucose (UA) Negative (Negative) mg/dL Urine Ketones Negative (Negative) mg/dL Urine Blood Trace H (Negative) Urine Nitrite Positive H (Negative) Ur Leukocyte Esterase Large (3+) H (Negative) Urine RBC 0-2 (0-2) /HPF Urine WBC 21-50 H (0-5) /HPF Ur Squamous Epith Cells 0-2 (0-2) /HPF Urine Bacteria 4+ (None Seen) Hyaline Casts 0-2 (0-2) /LPF Urine Opiates Screen Not Detected (Not Detect) Ur Buprenorphine Scrn Not Detected (Not Detect) ng/mL Ur Oxycodone Screen Not Detected (Not Detect) ng/mL Urine Methadone Screen Not Detected (Not Detect) ng/mL Urine Fentanyl Screen Not Detected (Not Detect) Ur Barbiturates Screen Not Detected (Not Detect) Ur Phencyclidine Scrn Not Detected (Not Detect) Ur Amphetamines Screen Not Detected (Not Detect) U Benzodiazepines Scrn Not Detected (Not Detect) Urine Cocaine Screen Not Detected (Not Detect) U Marijuana (THC) Screen Not Detected (Not Detect) Ethyl Alcohol < 10 mg/dL Independent Historian Clinical information obtained from an independent historian. History obtained from or confirmed by: EMS External Record Review External record reviewed: Inpatient record Discharge Plan Discharge Clinical Impression: Acute UTI Depression Qualifiers: Depression Type: unspecified Qualified Code(s): F32.A - Depression, unspecified Patient Disposition: Admitted As Inpatient Interventions: [place]-Suicide Risk Severity Scale Last Done: 12/26/23 10:16
[2023-12-26 10:42] LABS: MANUAL DIFF FLAG NO
--- NOTE | 2023-12-26 10:43 | PC.NURSE ---
Katheryn comes to the ED today requesting help due to increased depression. She reports no SI/HI, just increasing stress that is causing her depression. She does appear depressed on first encounter which is baseline as patient is seen regularly in the ED here. Patient aware of process for sales and service change leader, medical clearance and CARE team eval. No apparent distress noted at this time. Continue plan of care for med clearance and CARE eval
[2023-12-26 10:45] VITALS: BP 100/64; PULSE 66; RESP 16; O2SAT 97
[2023-12-26 10:46] LABS: Basophils Percent Auto 0.8 % (0-2); Eosinophils Absolute Auto 0.2 X10*3/uL (0.0-0.4); Eosinophils Percent Auto 3.2 % (0-4); Hematocrit 35.4 % (37.0-47.0); Hemoglobin 12.7 g/dl (12.0-16.0); Imm Gran Abs Auto 0.01 X10*3/uL (0.00-0.03); Imm Gran Pct Auto 0.2 % (0.0-0.4); Lymphocytes Absolute Auto 1.5 X10*3/uL (1.2-4.9); Lymphocytes Percent Auto 29.4 % (20-40); Mean Corpuscular HGB Conc 35.9 g/dl (31.0-35.0); Mean Corpuscular Hemoglobin 31.3 pg (27.0-33.0); Mean Corpuscular Volume 87.2 fL (80.0-98.0); Mean Platelet Volume 10.7 fL (9.4-12.3); Monocytes Absolute Auto 0.6 X10*3/uL (0.1-1.2); Monocytes Percent Auto 12.2 % (2-11); Neutrophils Absolute Auto 2.8 x10*3/uL (2.0-8.3); Neutrophils Percent Auto 54.2 % (45-73); Platelet Count 181 X10*3/uL (160-400); Red Blood Count 4.06 X10*6/uL (4.20-5.50); Red Cell Distribution Width 14.4 % (11.0-16.0); White Blood Count 5.1 X10*3/uL (4.8-10.8)
[2023-12-26 10:59] LABS: Alanine Aminotransferase 16 U/L (0-31); Albumin Level 3.5 g/dL (3.5-5.0); Alkaline Phosphatase 64 U/L (39-117); Anion Gap 9 (12-20); Aspartate Amino Transferase 19 U/L (5-31); Bilirubin Total 0.3 mg/dL (0.0-1.0); Blood Urea Nitrogen 10 mg/dL (9-16); Calcium 9.5 mg/dL (8.4-10.2); Carbon Dioxide 25 mmol/L (22-29); Chloride 102 mmol/L (96-108); Creatinine Clr Calc Pharmacy 70.1; Estimated Glomerular Filt Rate > 60; Ethanol < 10 mg/dL; Glucose Random 123 mg/dL (60-115); Sodium 132 mmol/L (135-145); Total Protein 6.3 g/dL (6.5-8.0)
[2023-12-26 11:06] LABS: INTERNATIONAL NORM RATIO 1.2 (0.9-1.1); Prothrombin Time 14.2 SEC (11.1-13.3)
[2023-12-26 11:44] LABS: Appearance Urine Clear; Color Urine Yellow; Glucose Urine UA Negative (Negative); Leukocyte Esterase Urine Large (3+) (Negative); Nitrite Urine Positive (Negative); Specific Gravity - Urine <= 1.005 (1.005-1.025); UMIC TRIGGER UACC YES; Urine Blood Trace (Negative); Urine Ketones Negative (Negative); Urine Protein Negative (Neg-Trace)
[2023-12-26 11:49] LABS: Bacteria Urine 4+ (None Seen); Hyaline Casts Urine 0-2 /LPF (0-2); RBC Urine 0-2 /HPF (0-2); Squamous Epithelial Cell Urine 0-2 /HPF (0-2); UACC Culture Trigger YES; WBC Urine 21-50 /HPF (0-5)
[2023-12-26 11:52] LABS: Amphetamine Screen Urine Not Detected (Not Detect); Barbiturates, Urine Not Detected (Not Detect); Benzodiazepines Screen Urine Not Detected (Not Detect); Buprenorphine Scr Not Detected (Not Detect); Cannabinoid Screen Urine Not Detected (Not Detect); Cocaine Screen Urine Not Detected (Not Detect); Fentanyl, urine Not Detected (Not Detect); Methadone Screen, Urine Not Detected (Not Detect); Opiate Screen Urine Not Detected (Not Detect); Oxycodone Screen Urine Not Detected (Not Detect); Phencyclidine Screen Urine Not Detected (Not Detect)
[2023-12-26] MEDS: cefuroxime axetiL 250 MG TABLET PO ×2 (12:52→20:29)
[2023-12-26 15:15] VITALS: BP 123/59; PULSE 68; RESP 20; TEMP 36; O2SAT 98; BMI 23.0
--- NOTE | 2023-12-26 16:14 | PC.ADMIT ---
Addendum entered and electronically signed by Rosalina Garsia RN 12/26/23 17:28: Does not want visits from daughter, Lindsey Cali. Original Note: This is one of multiple admissions for this 78 y.o. women to [facility]. Arrived on unit at 1459 and placed on 5min safety checks, unlocked bathroom. Referred by [facility] Care Team with diagnosis of Major Depressive Disorder, recurrent, moderate, PTSD. Nurse to nurse done with [facility] ED pod prior to admission. Med reconciliation done by ED staff. Admission orders received from Shahida Azevedo. Pt signed Conditional Voluntary with rishi Arreguinpt prescriber.Agitation noted during admission process when speaking of recent and past life events and frustration with prescribers, family members, neighbors past and present. Apologized for agitation, stating she does know how she is supposed to act. Precipitants to admission: pt called 911 reporting increased depression. Rates depression and anxiety #10 on scale 1-10(10 worse). Denies SI/HI, denies AH/VH. Denies substance issues, tox screen negative in ED. 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 Started on Ceftin in ED for UTI, recently started on Dabigatran for brain aneurysm/carotid artery buildup per pt. Pt reports hx petechiae lower legs and petechiae appearance noted bilateral lower legs presently. Pt reports poor appetite with 30 lb wt loss since last admission. Pt states she drinks ensure or boost 2-3 x daily and usually eats piece of cheese. Tearful/sad during admission process. Reports recent stressors as loss of of 62 years in 2021 and letting a homeless man live with her 4 weeks ago. Homeless man no longer lives with her, but she does feel unsafe re: this man. Reports smoking 3 packs cigarettes daily and does not want NRT. Alert and oriented x4.
[2023-12-26 19:27] LABS: Osmolality Urine 122 mosm/kg (373-1093)
[2023-12-26 20:00] VITALS: BP 119/80; PULSE 85; RESP 16; TEMP 37.3; O2SAT 99
[2023-12-26] MEDS: Dabigatran Etexilate Mesylate 150 MG CAPSULE PO (20:29)
[2023-12-26] MEDS: traZODone HCL 50 MG TABLET PO (20:29)
[2023-12-26] MEDS: clonazePAM 0.5 MG TABLET PO (21:34)
[2023-12-27 08:00] VITALS: PULSE 72; RESP 18; TEMP 36.3; O2SAT 96
[2023-12-27] MEDS: Dabigatran Etexilate Mesylate 150 MG CAPSULE PO ×2 (08:00→20:14)
[2023-12-27] MEDS: cefuroxime axetiL 250 MG TABLET PO ×2 (08:00→20:17)
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
[2023-12-27 09:51] LABS: Estimated Average Glucose 126 mg/dL; Hemoglobin A1C 152.4001 umol/L
[2023-12-27 10:03] LABS: Alanine Aminotransferase 18 U/L (0-31); Albumin Level 3.8 g/dL (3.5-5.0); Alkaline Phosphatase 74 U/L (39-117); Anion Gap 12 (12-20); Aspartate Amino Transferase 20 U/L (5-31); Bilirubin Total 0.3 mg/dL (0.0-1.0); Blood Urea Nitrogen 11 mg/dL (9-16); Calcium 9.8 mg/dL (8.4-10.2); Carbon Dioxide 27 mmol/L (22-29); Chloride 101 mmol/L (96-108); Cholesterol 204 mg/dL (<200); Creatinine Clr Calc Pharmacy 54.8; Estimated Glomerular Filt Rate > 60; Glucose Fasting 106 mg/dL (60-99); HDL Cholesterol 44 mg/dL (>40); LDL Cholesterol Calculated 136 mg/dL (<100); Potassium 4.4 mmol/L (3.3-5.1); Sodium 136 mmol/L (135-145); Triglycerides 123 mg/dL (<150)
[2023-12-27 10:17] LABS: Thyroid Stimulating Hormone 0.76 uIU/mL (0.32-4.0)
[2023-12-27 10:46] LABS: Vitamin B12 472 pg/mL (200-900)
[2023-12-27 11:40] VITALS: BP 132/70
[2023-12-27] MEDS: guaiFENesin LA 600 MG TAB.ER.12H PO ×2 (11:40→20:14)
[2023-12-27] MEDS: cloNIDine HCL 0.1 MG TABLET PO (11:40)
[2023-12-27] MEDS: Brexpiprazole 1 MG TABLET PO (11:40)
--- NOTE | 2023-12-27 12:24 | MHC.CLN ---
NUTRITION CONSULT FOR POOR APPETITE. VISITED WITH PATIENT IN HER ROOM. ATE 100% OF BREAKFAST TODAY. TAKES ENSURE (VANILLA) AT HOME. ORDERED ENSURE TID. PROVIDES 1050 KCALS, 60 G PROTEIN. STATED THAT OPYRET=328# LAST TIME HERE . REVIEW OF WEIGHT HX SHOWS NO SIGNIFICANT WEIGHT LOSS X ONE YEAR. WEIGHT LOSS ONE MONTH=-3.6%; WEIGHT LOSS X 14 MONTHS=-5.1%. WEIGHT LOSS 2 YEARS=-21%. DOES NOT APPEAR TO BE MALNOURISHED. RD TO MONITOR INTAKE WEEKLY.
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
[2023-12-27 15:01] VITALS: BP 134/65
[2023-12-27] MEDS: Prazosin HCL 1 MG CAPSULE PO ×2 (15:01→20:14)
[2023-12-27 20:00] VITALS: BP 142/74; PULSE 96; TEMP 37.1; O2SAT 94
[2023-12-27 20:14] VITALS: BP 172/97
[2023-12-27] MEDS: OLANZapine 2.5 MG TABLET 7.5 MG PO (20:17)
[2023-12-27] MEDS: lamoTRIgine 25 MG TABLET PO (20:17)
[2023-12-27] MEDS: clonazePAM 0.5 MG TABLET PO (20:17)
[2023-12-27] MEDS: traZODone HCL 50 MG TABLET PO (20:17)
[2023-12-28 08:21] VITALS: BP 116/63; PULSE 79; RESP 18; TEMP 36.6; O2SAT 94
[2023-12-28 08:22] VITALS: BP 116/63
[2023-12-28] MEDS: clonazePAM 0.5 MG TABLET PO ×2 (08:22→20:31)
[2023-12-28] MEDS: Prazosin HCL 1 MG CAPSULE PO ×3 (08:22→20:30)
[2023-12-28] MEDS: Dabigatran Etexilate Mesylate 150 MG CAPSULE PO ×2 (08:22→20:31)
[2023-12-28] MEDS: cefuroxime axetiL 250 MG TABLET PO ×2 (08:22→20:30)
[2023-12-28] MEDS: lamoTRIgine 25 MG TABLET PO ×2 (08:23→20:30)
[2023-12-28] MEDS: guaiFENesin LA 600 MG TAB.ER.12H PO ×2 (08:23→20:31)
[2023-12-28 14:35] VITALS: BP 127/70
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
[2023-12-28 20:00] VITALS: BP 178/63; PULSE 98; RESP 16; TEMP 36.2; O2SAT 96
[2023-12-28 20:30] VITALS: BP 178/63
[2023-12-28] MEDS: traZODone HCL 50 MG TABLET PO (20:30)
[2023-12-28] MEDS: OLANZapine 2.5 MG TABLET 7.5 MG PO (20:31)
[2023-12-29 07:55] VITALS: BP 128/92; PULSE 92; RESP 18; TEMP 36.4; O2SAT 99
[2023-12-29 08:00] VITALS: BP 128/92
[2023-12-29] MEDS: Dabigatran Etexilate Mesylate 150 MG CAPSULE PO ×2 (08:00→21:31)
[2023-12-29] MEDS: Prazosin HCL 1 MG CAPSULE PO ×3 (08:00→21:31)
[2023-12-29] MEDS: guaiFENesin LA 600 MG TAB.ER.12H PO ×2 (08:01→21:32)
[2023-12-29] MEDS: cefuroxime axetiL 250 MG TABLET PO ×2 (08:01→21:32)
[2023-12-29] MEDS: clonazePAM 0.5 MG TABLET PO ×2 (08:01→21:32)
[2023-12-29] MEDS: lamoTRIgine 25 MG TABLET PO ×2 (08:01→21:31)
[2023-12-29 15:24] VITALS: BP 120/79
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
[2023-12-29 20:00] VITALS: BP 151/91; PULSE 80; RESP 18; TEMP 37.1; O2SAT 96
[2023-12-29 21:31] VITALS: BP 151/91
[2023-12-29] MEDS: OLANZapine 2.5 MG TABLET 7.5 MG PO (21:31)
[2023-12-29] MEDS: traZODone HCL 50 MG TABLET PO (21:32)
[2023-12-30] MEDS: traZODone HCL 50 MG TABLET PO ×2 (00:30→20:41)
[2023-12-30 08:18] VITALS: BP 135/80; PULSE 96; RESP 20; TEMP 36.6; O2SAT 95
[2023-12-30 08:23] VITALS: BP 135/80
[2023-12-30] MEDS: clonazePAM 0.5 MG TABLET PO ×2 (08:23→20:41)
[2023-12-30] MEDS: cefuroxime axetiL 250 MG TABLET PO ×2 (08:23→20:40)
[2023-12-30] MEDS: guaiFENesin LA 600 MG TAB.ER.12H PO ×2 (08:23→20:41)
[2023-12-30] MEDS: Dabigatran Etexilate Mesylate 150 MG CAPSULE PO ×2 (08:23→20:41)
[2023-12-30] MEDS: Prazosin HCL 1 MG CAPSULE PO ×2 (08:23→16:22)
[2023-12-30] MEDS: lamoTRIgine 25 MG TABLET PO ×2 (08:23→20:41)
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
[2023-12-30 16:16] VITALS: BP 148/80
[2023-12-30 16:22] VITALS: BP 148/80
[2023-12-30 20:00] VITALS: BP 127/70; PULSE 90; RESP 18; TEMP 36.7; O2SAT 95
[2023-12-30 20:41] VITALS: BP 127/70
[2023-12-30] MEDS: Prazosin HCL 1 MG CAPSULE 2 MG PO (20:41)
[2023-12-30] MEDS: OLANZapine 10 MG TABLET PO (20:41)
[2023-12-31 08:27] VITALS: BP 125/68; PULSE 90; RESP 18; TEMP 36.8; O2SAT 97
[2023-12-31 08:31] VITALS: BP 125/68
[2023-12-31] MEDS: guaiFENesin LA 600 MG TAB.ER.12H PO ×2 (08:31→21:05)
[2023-12-31] MEDS: Prazosin HCL 1 MG CAPSULE 2 MG PO ×3 (08:31→21:05)
[2023-12-31] MEDS: Dabigatran Etexilate Mesylate 150 MG CAPSULE PO ×2 (08:31→21:05)
[2023-12-31] MEDS: clonazePAM 0.5 MG TABLET PO ×2 (08:31→21:06)
[2023-12-31] MEDS: cefuroxime axetiL 250 MG TABLET PO ×2 (08:31→21:05)
[2023-12-31] MEDS: lamoTRIgine 25 MG TABLET PO ×2 (08:31→21:06)
[2023-12-31 15:56] VITALS: BP 134/86; PULSE 94
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
[2023-12-31 20:00] VITALS: BP 115/60; PULSE 102; TEMP 36.6; O2SAT 96
[2023-12-31 21:05] VITALS: BP 115/60
[2023-12-31] MEDS: traZODone HCL 50 MG TABLET PO (21:05)
[2023-12-31] MEDS: OLANZapine 10 MG TABLET PO (21:06)
[2024-01-01] MEDS: Dabigatran Etexilate Mesylate 150 MG CAPSULE PO ×2 (07:54→20:24)
[2024-01-01 07:55] VITALS: BP 120/79
[2024-01-01] MEDS: Prazosin HCL 1 MG CAPSULE 2 MG PO ×3 (07:55→20:23)
[2024-01-01 07:57] VITALS: BP 120/79; PULSE 96; RESP 18; TEMP 36.7; O2SAT 96
[2024-01-01] MEDS: guaiFENesin LA 600 MG TAB.ER.12H PO ×2 (07:57→20:24)
[2024-01-01] MEDS: cefuroxime axetiL 250 MG TABLET PO ×2 (07:57→20:24)
[2024-01-01] MEDS: lamoTRIgine 25 MG TABLET PO ×2 (07:57→20:24)
[2024-01-01] MEDS: clonazePAM 0.5 MG TABLET PO ×2 (07:57→20:24)
[2024-01-01 14:13] VITALS: BP 130/62; PULSE 107
[2024-01-01 14:15] VITALS: BP 130/62
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
--- NOTE | 2024-01-01 17:03 | MHC.SLORD ---
Speech Language Pathology Order Status: Pt seen by BALLAST CLEANING OPERATOR for evaluation on 12/30 d/t reported globus sensation. BALLAST CLEANING OPERATOR deemed oral and pharyngeal phases of swallow WFL based on bedside evaluation and recommended upper GI series. Per RN, hospitalist is aware of BALLAST CLEANING OPERATOR's assessment and recommendation. RN reports pt complained of pain while swallowing on this date. Pt may benefit from evaluation of reflux.
[2024-01-01 20:00] VITALS: BP 126/60; PULSE 73; RESP 18; TEMP 36.2; O2SAT 94
[2024-01-01 20:23] VITALS: BP 123/60
[2024-01-01] MEDS: OLANZapine 10 MG TABLET PO (20:24)
[2024-01-02 07:00] VITALS: BMI 23.9
[2024-01-02 08:00] VITALS: BP 135/73; PULSE 84; RESP 18; TEMP 36.2; O2SAT 98
[2024-01-02] MEDS: Prazosin HCL 1 MG CAPSULE 2 MG PO ×3 (08:20→20:08)
[2024-01-02] MEDS: Dabigatran Etexilate Mesylate 150 MG CAPSULE PO ×2 (08:21→20:08)
[2024-01-02] MEDS: guaiFENesin LA 600 MG TAB.ER.12H PO ×2 (08:21→20:09)
[2024-01-02] MEDS: cefuroxime axetiL 250 MG TABLET PO (08:21)
[2024-01-02] MEDS: lamoTRIgine 25 MG TABLET PO ×2 (08:22→20:09)
[2024-01-02] MEDS: clonazePAM 0.5 MG TABLET PO ×2 (08:22→20:09)
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
--- NOTE | 2024-01-02 13:58 | MHC.SL.SWA ---
Speech Pathologist Impression: Risk of Aspiration Due to: Dysphasia Diet Status: Recommend continue on Regular Diet with thin liquids, pills whole with liquid. Patient is at baseline and on least restrictive diet and tolerating well. D/C speech therapy at this time. Liquid Consistency and Strategies for Safe Swallow: Liquid Intake Recommendation: Thin Liquid Intake Strategies: Small Sips Solid Food Consistency: Dietary Recommendations: Regular Additional Modifications to Solid Foods: Oral Medication Intake: Whole with Liquid Please contact the pharmacy regarding appropriate crushable or liquid drug formulations that are available whenever modified delivery is recommended. Compensatory Strategies and Precautions to be Taken for Safe Swallow: Sitting Upright (90 deg) Small Bites and Sips Supervision While Eating and Drinking for Safe Swallow: None Needed Foods to Avoid: Swallowing Recommended Treatments: Compens. Strategy Educat. Recommendation for Speech: Further Testing Needed Comment: Patient seen for initial evaluation on 12/31/23, with findings mostly WFL, placed on Regular Diet with Thin Liquids, pills whole with liquid, which is her baseline and least restrictive diet. Patient was observed today at lunch eating a regular meal including chicken, sweet potato and steamed broccoli. Patient evidenced no difficulty managing these textures, taking small bites, producing timely oral and pharyngeal phases of swallow with no clinical signs of aspiration. Patient further was observed drinking coffee that came with meal and soda with straw, again all WFL. REFUELING RAMPMAN at evaluation 12/30 had recommended GI consult for patient complaint of reflux/occasional globus sensation after swallow. Patient has not been recommended for swallow study with speech, which was noted in MD note of 12/31, as need for this is not indicated. As patient is on least restrictive diet and tolerating well, REFUELING RAMPMAN to discharge patient at this time. RN advised, by secure text. Frequency/Duration: Date Range for Service Req: Timeline to reassess: PRN Business Services Officer Clinican/Clinical Fellow: No Supervisory Statement: I have reviewed and agree with the student/clinical fellow's documentation: N/A Speech Language Pathologist: Bonita Hannah M.A., [facility]
[2024-01-02 14:22] VITALS: BP 107/61; PULSE 92
[2024-01-02 20:00] VITALS: BP 133/70; PULSE 81; RESP 16; TEMP 36.4; O2SAT 95
[2024-01-02 20:08] VITALS: BP 133/70
[2024-01-02] MEDS: OLANZapine 10 MG TABLET PO (20:09)
[2024-01-03 08:00] VITALS: BP 136/81; PULSE 84; RESP 18; TEMP 36.4; O2SAT 96
[2024-01-03] MEDS: Dabigatran Etexilate Mesylate 150 MG CAPSULE PO (08:24)
[2024-01-03] MEDS: clonazePAM 0.5 MG TABLET PO (08:24)
[2024-01-03] MEDS: Prazosin HCL 1 MG CAPSULE 2 MG PO (08:25)
[2024-01-03] MEDS: lamoTRIgine 25 MG TABLET PO (08:25)
[2024-01-03] MEDS: guaiFENesin LA 600 MG TAB.ER.12H PO (08:25)
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
== END 2024-01-03 10:50 | disposition home or self-care (01) | DRG 885 ==
LOC: HO.ED 10:36 → HO.PGERI 14:50
PROVIDERS: Admitting Provider Social Worker; Emergency Provider Emergency Medicine; Visit Provider Social Worker
DX: F31.60 Bipolar disorder, current episode mixed, unspecified (principal); N39.0 Urinary tract infection, site not specified; F41.9 Anxiety disorder, unspecified; E89.2 Postprocedural hypoparathyroidism; Z95.0 Presence of cardiac pacemaker; F43.10 Post-traumatic stress disorder, unspecified; J44.9 Chronic obstructive pulmonary disease, unspecified; E78.5 Hyperlipidemia, unspecified; E11.9 Type 2 diabetes mellitus without complications; F17.210 Nicotine dependence, cigarettes, uncomplicated; Z71.6 Tobacco abuse counseling; Z62.810 Personal history of physical and sexual abuse in childhood; Z91.148 Patient's other noncompliance with medication regimen for other reason; Z79.899 Other long term (current) drug therapy
CPT/HCPCS: 36415; 80053; 80061; 80307; 81001; 82607; 82746; 83036; 83935; 84443; 85025; 85610; 87086; 87088; 87186; 92507; 92610; 93005; 99285; S9485

== ENCOUNTER → 2023-12-26 12:51 | Outpatient (BNV) | payer MEDICARE, SELFPAY | PROVIDERS: Admitting Provider Social Worker; Emergency Provider Emergency Medicine; Visit Provider Internal Medicine Cardiovascular Disease | DX: R94.31 Abnormal electrocardiogram [ECG] [EKG] (principal) | CPT/HCPCS: 93010 ==

== ENCOUNTER → 2023-12-26 14:33 | Outpatient (BNV) | payer MEDICARE, SELFPAY | PROVIDERS: Admitting Provider Social Worker; Emergency Provider Emergency Medicine; Visit Provider Psychiatry & Neurology Psychiatry | DX: F31.4 Bipolar disorder, current episode depressed, severe, without psychotic features (principal); F43.11 Post-traumatic stress disorder, acute | CPT/HCPCS: 90792; 99231; 99232; 99238 ==

== ENCOUNTER 2024-01-15 14:09 | Inpatient (IN) | payer MEDICARE, SELFPAY ==
[2024-01-15 14:23] VITALS: BP 110/69; PULSE 65; O2SAT 94; BMI 20.2
--- NOTE | 2024-01-15 14:28 | ED_ITS ---
HPI - Psych General Chief Complaint: Psychiatric Symptoms Stated Complaint: FEELS FAINT,MANIC PER EMS Time Seen by Provider: 01/15/24 14:22 Source: patient, EMS and RN notes reviewed Mode of arrival: EMS Limitations: altered mental status History of Present Illness ED Provider: nickie HPI Narrative: Patient is a 78-year-old female with history of bipolar disorder, MDD, COPD, HLD, PTSD, HTN presenting to the ED via EMS after going over to her neighbor's house and expressing vague suicidal ideation. Neighbor was concerned about patient's behavior and statements. Patient stating that she's having extreme panic about dying. Pressured speech. Complains of nausea, reports history of frequent UTIs but unable to state if she is currently being treated for a UTI. Patient seen in this ED multiple times for similar complaints. Hostile and unwilling to answer many questions. MD complaint: suicidal ideation, feels depressed and anxiety History of same: Yes Associated psychiatric symptoms: depression, suicidal ideation and racing thoughts Associated symptoms: nausea Treatments prior to arrival: none If self harm: admits thoughts of self harm and has plan Related Data Previous Rx's ?Medication ?Instructions ?Recorded clonazepam 0.5 mg tablet 0.5 mg PO BID PRN anxiety attack 01/03/24 30 days #60 tabs dabigatran etexilate 150 mg 150 mg PO BID #60 caps 01/03/24 capsule (Pradaxa) guaifenesin 600 mg tablet, 600 mg PO BID 30 days #60 tabs 01/03/24 extended release 12 hr (Mucinex) lamotrigine 25 mg tablet 25 mg PO BID 30 days #60 tabs 01/03/24 olanzapine 10 mg tablet 10 mg PO BEDTIME #30 tabs 01/03/24 prazosin 1 mg capsule 2 mg PO TID 30 days #180 caps 01/03/24 trazodone 50 mg tablet 50 mg PO BEDTIME MRX1 PRN Insomnia 01/03/24 30 days #30 tabs Allergies Allergy/AdvReac Type Severity Reaction Status Date / Time adhesive AdvReac Unknown Verified 01/15/24 14:28 aspirin AdvReac Unknown Verified 01/15/24 14:28 epinephrine AdvReac Unknown Verified 01/15/24 14:28 Review of Systems 2 Review of Systems: As per HPI. Yes all other systems are reviewed and are negative Constitutional: Constitutional: Reports as per HPI [facility] Past Medical History Medical History Pacemaker FH: cholecystectomy Lung nodule Syncope Osteopenia Hyperparathyroidism Bipolar disorder C. difficile diarrhea Mitral valve prolapse Tobacco abuse TIA (transient ischemic attack) Prediabetes Hyperlipidemia Depression PTSD (post-traumatic stress disorder) Essential hypertension COPD (chronic obstructive pulmonary disease) Surgical History History of appendectomy History of parathyroidectomy History of colectomy Social History Social History Household Members: None Household Members Other:: lives with self Housing: Apartment Do you presently have visiting nurse or other home services: No Alcohol intake: never Comment: Fall risk wristband. Patient Tobacco Use Status: Current everyday Tobacco user Tobacco use type: Cigarette Cigarette Packs Per Day: 3 Cigarettes Per Day: 60.0 Years Smoked: >30 years Smoked in Last 30 Days: Yes e-Cigarette/Vaping Use: Never Used Second Hand Smoke Exposure: Yes (around others that smoke) Use of substances other than those prescribed or required for medical reasons: No Substance Use Type: Prescription Drugs and Caffiene Advance Directives: Yes Advance Directives on File: Yes Advance Directives Date on File: 02/08/22 service: No Sexual orientation: Straight/Heterosexual Physical Exam 2 Vital Signs: Vital Signs: Last Vital Signs Temp 97.5 F 01/15/24 15:42 Pulse 65 01/15/24 15:42 Resp 16 01/15/24 15:42 BP 102/64 01/15/24 15:42 Pulse Ox 95 01/15/24 15:42 O2 Del Method Room Air 01/15/24 15:42 BMI result Body Mass Index 20.2 Const: General: no acute distress Orientation/consciousness: oriented to person, oriented to place, oriented to time and patient oriented x3 L imitations: no limitations HEENT: Head: Yes normocephalic and Yes atraumatic Ears: external ears normal General nose exam: Normal external nose present Face and sinus: Yes face symmetric Mouth: oropharynx normal and moist mucous membranes Throat: Yes uvula midline Eyes: Pupils: Equal, round and reactive pupils present Neck: Neck: Yes normal visual inspection and Yes supple Resp: Effort & Inspection: normal respiratory effort and able to speak in complete sentences Auscultation: clear to auscultation bilaterally Cardio: Rate: regular rate Rhythm: regular rhythm Heart sounds: S1 normal heart sound present and S2 normal heart sound present GI: Palpation (GI): Soft to palpation and nontender Auscultation: n ormoactive bowel sounds : General: Yes no CVA tenderness Back/Spine/Pelvis: Back: no CVA tenderness Skin: General skin exam: elasticity normal and turgor normal Neuro: General: oriented to person, oriented to place, oriented to time, patient oriented x3, moves all extremities, no focal motor deficits and CN's II- XI intact bilaterally Cranial nerves: Yes Equal, round and reactive pupils present Cognition (Neuro): normal cognition Extrem: General: Yes full ROM, Yes no pedal edema and Yes no calf tenderness Psych: Appearance: grossly normal Speech and movement: Pressured speech present, Psychomotor agitation in speech present and Restless speech present Affect: Labile affect present and Anxious affect present Attitude: Guarded attititude/behavior present Thought process: Flight of ideas present T hought content: Suicidality present, no homicidality, no hallucinations and Depressive thoughts present Insight: Limited insight present (Psych) J udgement: Limited judgement present (Psych) Medications Administered Discontinued Medications Generic Name Dose Route Start Last Admin Trade Name Freq PRN Reason Stop Dose Admin Lorazepam 2 mg 01/15/24 14:57 01/15/24 15:03 Lorazepam 1 Mg Tablet PO 01/15/24 14:58 2 mg ONCE ONE Administration Medical Decision Making Medical Decision Making [facility] Narrative: Patient is a 78-year-old female with history of bipolar disorder, MDD, COPD, HLD, PTSD, HTN presenting to the ED via EMS after going over to her neighbor's house and expressing vague suicidal ideation. On exam patient is awake, A+Ox3, VS WNL, afebrile, physical exam findings as above. Given reported symptoms and physical exam findings, initial differential includes anxiety, depression, bipolar disorder. Labs unremarkable. Viral swabs negative. Will clear patient at this time for CARE team eval and place on physician observation at 15:56. Differential Diagnosis Differential Diagnoses: The differential diagnosis associated with the presentation includes As per [facility] Admission/Observation Consideration of admission/observation: Escalation of care including admission/observation considered Consult Healthcare Provider Management of the patient was discussed with: Behavioral Health Provider Lab Data [facility] Lab Attestation statement: I reviewed the patient's lab results. As per MDM 01/15/24 15:12 01/15/24 15:12 Labs: Lab Results 01/15/24 Range/Units 15:12 WBC 6.6 (4.8-10.8) X10*3/uL RBC 3.80 L (4.20-5.50) X10*6/uL Hgb 12.0 (12.0-16.0) g/dl Hct 33.7 L (37.0-47.0) % MCV 88.7 (80.0-98.0) fL MCH 31.6 (27.0-33.0) pg MCHC 35.6 H (31.0-35.0) g/dl RDW 14.7 (11.0-16.0) % Plt Count 228 D (160-400) X10*3/uL MPV 10.1 (9.4-12.3) fL Immature Gran % (Auto) 0.2 (0.0-0.4) % Neut % (Auto) 59.3 (45-73) % Lymph % (Auto) 27.3 (20-40) % [place] % (Auto) 9.2 (2-11) % Eos % (Auto) 3.1 (0-4) % Baso % (Auto) 0.9 (0-2) % Lymph # (Auto) 1.8 (1.2-4.9) X10*3/uL [place] # (Auto) 0.6 (0.1-1.2) X10*3/uL Eos # (Auto) 0.2 (0.0-0.4) X10*3/uL Baso # (Auto) 0.1 (0.0-0.2) X10*3/uL Abs Immat Gran (auto) 0.01 (0.00-0.03) X10*3/uL Absolute Neuts (auto) 3.9 (2.0-8.3) x10*3/uL Absolute Nucleated RBC 0.000 (0.0-0.012) X10*3/uL Nucleated RBC % (auto) 0.0 (0.0-0.2) /100WBC Sodium 134 L (135-145) mmol/L Potassium 4.2 (3.3-5.1) mmol/L Chloride 103 (96-108) mmol/L Carbon Dioxide 21 L (22-29) mmol/L Anion Gap 14 (12-20) BUN 13 (9-16) mg/dL Creatinine 0.79 (0.5-1.4) mg/dL Estim Creat Clear Calc 56.6 Estimated GFR > 60 Random Glucose 122 H (60-115) mg/dL Calcium 9.7 (8.4-10.2) mg/dL AST 27 (5-31) U/L ALT 21 (0-31) U/L Alkaline Phosphatase 72 (39-117) U/L Total Protein 6.6 (6.5-8.0) g/dL Albumin 3.8 (3.5-5.0) g/dL Ethyl Alcohol < 10 mg/dL Influenza Type A (PCR) NEGATIVE (Negative) Influenza Type B (PCR) NEGATIVE (Negative) RSV RNA Qual (PCR) NEGATIVE (Negative) SARS-CoV-2 RNA (RT-PCR) NEGATIVE (Negative) External Record Review External record reviewed: Inpatient record, Office record and Outpatient record Prescription Management I considered prescription management with: Other Discharge Plan Discharge Clinical Impression: Bipolar disorder Patient Disposition: Still a Patient Prescriptions: No Action prazosin 1 mg Capsule 2 mg PO TID 30 Days Qty: 180 0RF Protocol: Hold for SBP< HOLD for SBP < : 90 olanzapine 10 mg Tablet 10 mg PO BEDTIME Qty: 30 0RF lamotrigine 25 mg Tablet 25 mg PO BID 30 Days Qty: 60 0RF trazodone 50 mg Tablet 50 mg PO BEDTIME MRX1 PRN (Reason: Insomnia) 30 Days Qty: 30 0RF guaifenesin [Mucinex] 600 mg Tablet Extended Release 12hr 600 mg PO BID 30 Days Qty: 60 0RF clonazepam 0.5 mg tablet 0.5 mg PO BID PRN (Reason: anxiety attack) 30 Days Qty: 60 0RF dabigatran etexilate [Pradaxa] 150 mg Capsule 150 mg PO BID Qty: 60 0RF Interventions: [place]-Suicide Risk Severity Scale Last Done: 01/15/24 15:42 Print Language: Kazakh
[2024-01-15] MEDS: LORazepam 1 MG TABLET 2 MG PO (15:03)
[2024-01-15 15:22] LABS: MANUAL DIFF FLAG NO
[2024-01-15 15:32] LABS: Basophils Absolute Auto 0.1 X10*3/uL (0.0-0.2); Basophils Percent Auto 0.9 % (0-2); Eosinophils Absolute Auto 0.2 X10*3/uL (0.0-0.4); Eosinophils Percent Auto 3.1 % (0-4); Hematocrit 33.7 % (37.0-47.0); Imm Gran Abs Auto 0.01 X10*3/uL (0.00-0.03); Imm Gran Pct Auto 0.2 % (0.0-0.4); Lymphocytes Absolute Auto 1.8 X10*3/uL (1.2-4.9); Lymphocytes Percent Auto 27.3 % (20-40); Mean Corpuscular HGB Conc 35.6 g/dl (31.0-35.0); Mean Corpuscular Hemoglobin 31.6 pg (27.0-33.0); Mean Corpuscular Volume 88.7 fL (80.0-98.0); Mean Platelet Volume 10.1 fL (9.4-12.3); Monocytes Absolute Auto 0.6 X10*3/uL (0.1-1.2); Monocytes Percent Auto 9.2 % (2-11); Neutrophils Absolute Auto 3.9 x10*3/uL (2.0-8.3); Neutrophils Percent Auto 59.3 % (45-73); Platelet Count 228 X10*3/uL (160-400); Red Cell Distribution Width 14.7 % (11.0-16.0); White Blood Count 6.6 X10*3/uL (4.8-10.8)
[2024-01-15 15:42] VITALS: BP 102/64; PULSE 65; RESP 16; TEMP 36.4; O2SAT 95
[2024-01-15 15:42] LABS: Alanine Aminotransferase 21 U/L (0-31); Albumin Level 3.8 g/dL (3.5-5.0); Alkaline Phosphatase 72 U/L (39-117); Anion Gap 14 (12-20); Aspartate Amino Transferase 27 U/L (5-31); Blood Urea Nitrogen 13 mg/dL (9-16); Calcium 9.7 mg/dL (8.4-10.2); Carbon Dioxide 21 mmol/L (22-29); Chloride 103 mmol/L (96-108); Creatinine Clr Calc Pharmacy 56.6; Estimated Glomerular Filt Rate > 60; Ethanol < 10 mg/dL; Glucose Random 122 mg/dL (60-115); Potassium 4.2 mmol/L (3.3-5.1); Sodium 134 mmol/L (135-145); Total Protein 6.6 g/dL (6.5-8.0)
[2024-01-15 16:00] LABS: Influenza A PCR NEGATIVE (Negative); Influenza B PCR NEGATIVE (Negative); Resp Syncy Virus RNA Qual PCR NEGATIVE (Negative); SARS COV2 PCR INHOUSE NEGATIVE (Negative)
[2024-01-15 16:16] LABS: Bilirubin Total < 0.5 mg/dL (0.0-1.0)
[2024-01-15 18:18] LABS: Appearance Urine Clear; Color Urine Yellow; Glucose Urine UA Negative (Negative); Leukocyte Esterase Urine Large (3+) (Negative); Nitrite Urine Negative (Negative); Specific Gravity - Urine <= 1.005 (1.005-1.025); UMIC TRIGGER UACC YES; Urine Blood Negative (Negative); Urine Ketones Negative (Negative); Urine Protein Negative (Neg-Trace)
[2024-01-15 18:23] LABS: Bacteria Urine None Seen (None Seen); Hyaline Casts Urine 0-2 /LPF (0-2); RBC Urine 0-2 /HPF (0-2); Squamous Epithelial Cell Urine 0-2 /HPF (0-2); UACC Culture Trigger YES; WBC Urine 21-50 /HPF (0-5)
[2024-01-15 18:27] LABS: Amphetamine Screen Urine Not Detected (Not Detect); Barbiturates, Urine Not Detected (Not Detect); Benzodiazepines Screen Urine Not Detected (Not Detect); Buprenorphine Scr Not Detected (Not Detect); Cannabinoid Screen Urine Not Detected (Not Detect); Cocaine Screen Urine Not Detected (Not Detect); Fentanyl, urine Not Detected (Not Detect); Methadone Screen, Urine Not Detected (Not Detect); Opiate Screen Urine Not Detected (Not Detect); Oxycodone Screen Urine Not Detected (Not Detect); Phencyclidine Screen Urine Not Detected (Not Detect)
--- NOTE | 2024-01-15 20:06 | PC.NURSE ---
Late entry: Katheryn comes in from home today reporting extreme depression , expressing her fear of but wanting to . She reports to this RN that she has nothing to live for anymoe . Initially patient is verbally aggressive with staff, yelling that she is not able to go on anymore, no one cares about her. This RN spoke with patient regarding the situation and offered medications to help her calm down. Patient accepted Ativan PO without issue. Patient became tired shortly after and fell asleep in common area chair. Patient evaled by CARE team and was deemed to be an inpatient bedsearch
[2024-01-15] MEDS: Prazosin HCL 1 MG CAPSULE 2 MG PO (21:14)
[2024-01-15] MEDS: OLANZapine 10 MG TABLET PO (21:14)
[2024-01-15] MEDS: lamoTRIgine 25 MG TABLET PO (21:14)
[2024-01-15 21:22] VITALS: BP 123/84; PULSE 68; RESP 18; TEMP 36.1; O2SAT 95
[2024-01-15] MEDS: Dabigatran Etexilate Mesylate 150 MG CAPSULE PO (21:52)
--- NOTE | 2024-01-15 22:25 | MHC.CARE ---
RAD Team conducted a bed search for this pt. Bed search is exhausted for tonight and will resume tomorrow. Assessment faxed to PAT Concepcion, Rhona and Jake
[2024-01-16] VITALS (8 sets, daily range): BP systolic 85–163; BP diastolic 57–79; PULSE 65–97; RESP 16–20; TEMP 36.2–36.6; O2SAT 94–97
[2024-01-16] MEDS: Acetaminophen 325 MG TABLET 975 MG PO (05:00)
--- NOTE | 2024-01-16 06:39 | PC.NURSE ---
RN made aware of low BP readings on the dinomap, manual BPs reveal her to have a BP of 86/44. She is awake, alert, conversing in full/complete sentences without acute distress noted. She is conversing in great detail regarding the events of the day prior and leading up to her presenting to the ED. RN spoke with and presented this information to MD Wallace who is currently recommending that staff encourage fluids, provide food and reassess the patient's BP in 2-4 hours. The pt has been made aware, adding I've been drinking like a fish! however she is agreeable to plan and fluids provided.
[2024-01-16] MEDS: Dabigatran Etexilate Mesylate 150 MG CAPSULE PO ×2 (10:20→20:30)
[2024-01-16] MEDS: lamoTRIgine 25 MG TABLET PO ×2 (10:20→20:29)
[2024-01-16] MEDS: clonazePAM 0.5 MG TABLET PO ×2 (11:26→20:30)
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
[2024-01-16] MEDS: Prazosin HCL 1 MG CAPSULE 2 MG PO ×2 (15:49→20:27)
--- NOTE | 2024-01-16 16:34 | PC.ADMIT ---
Addendum entered and electronically signed by Rosalina Garsia RN 01/16/24 18:16: Daughter, Sara Guidry, notified of admission per pt request. changeover operator of clothing/skin check performed by 2 female nursing staff. Original Note: Addendum entered and electronically signed by Rosalina Garsia RN 01/16/24 17:03: Pt reports use of walker for long distances at home. Walker provided for ambulation, gait steady with walker. Original Note: This is one of multiple admissions for this 78 y.o. woman to [facility] Behavioral Health units. Referred by [facility] Care Team with diagnosis of Bipolar D/O unspecified, PTSD unspecified. Nurse to nurse done prior to admission. Arrived on unit at 1425 with Sect 12A legal status. Conditional Voluntary signed after reviewing with Dr Garcia. Admission orders received from Dr Garcia, placed on 5 min safety checks, unlocked bathroom. Precipitating events to admission. Pt arrived at [facility] ED via ambulance on 01/15/24 after reporting vague SI to neighbor. Neighbor was concerned and called EMS. Medical issues: pacemaker placement 2017, colon/intestinal surgery due to Cancer 2017, frequent UTI's. Urine C&S pending at present time for possible UTI. Pt denies symptoms of UTI. Denies substance use, tox screen negative, etoh <10. Denies depression and anxiety. Reports being manic at present time. Disorganized, hyperverbal and tangential during admission process. 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 Stated although she was aware that this was a non-smoking facility, she wanted someone to bring her out to the street to smoke. Reports smoking 3 packs of cigarettes daily. Declined NRT. Continues to report difficulties with loss of 05/15/22. Meds verified in [facility] ED. Pt reported to staff in ED that she thought she was experiencing TIA's. Reported left grasp was weaker than right and drooping left eye lid. Neuros done in ED, evaluated by Dr Soni per nurse to nurse report. No findings of TIA's. Dr Garcia notified of this by pt and this bond underwriter. VS stable at time of admission. Pt has 9 rings on fingers that she is unable/unwilling to remove. Clinical coordinator has stated that rings can remain on fingers. Pt aware and accepting of responsibility of own rings if lost or stolen.
[2024-01-16] MEDS: OLANZapine 7.5 MG TABLET 15 MG PO (20:29)
[2024-01-16] MEDS: traZODone HCL 50 MG TABLET PO (20:30)
[2024-01-17] MEDS: hydrOXYzine HCL 25 MG TABLET PO (00:55)
[2024-01-17] MEDS: traZODone HCL 50 MG TABLET PO (00:55)
[2024-01-17 08:04] VITALS: BP 131/68; PULSE 87; RESP 20; TEMP 36.8; O2SAT 97
[2024-01-17] MEDS: Dabigatran Etexilate Mesylate 150 MG CAPSULE PO ×2 (08:05→20:03)
[2024-01-17 08:06] VITALS: BP 131/68
[2024-01-17] MEDS: lamoTRIgine 25 MG TABLET PO ×2 (08:06→20:04)
[2024-01-17] MEDS: Prazosin HCL 1 MG CAPSULE 2 MG PO ×3 (08:06→20:03)
[2024-01-17 08:33] LABS: Alanine Aminotransferase 20 U/L (0-31); Alkaline Phosphatase 77 U/L (39-117); Anion Gap 14 (12-20); Aspartate Amino Transferase 24 U/L (5-31); Bilirubin Total 0.3 mg/dL (0.0-1.0); Blood Urea Nitrogen 12 mg/dL (9-16); Carbon Dioxide 26 mmol/L (22-29); Chloride 103 mmol/L (96-108); Cholesterol 208 mg/dL (<200); Creatinine Clr Calc Pharmacy 59.2; Estimated Glomerular Filt Rate > 60; Glucose Fasting 134 mg/dL (60-99); HDL Cholesterol 52 mg/dL (>40); LDL Cholesterol Calculated 138 mg/dL (<100); Potassium 5.2 mmol/L (3.3-5.1); Sodium 138 mmol/L (135-145); Total Protein 7.3 g/dL (6.5-8.0); Triglycerides 91 mg/dL (<150)
--- NOTE | 2024-01-17 12:07 | MHC.CLN ---
NUTRITION CONSULT FOR REPORTED WEIGHT LOSS AND POOR PO. PATIENT KNOWN FROM PRIOR ADMISSION. REVIEW OF WEIGHT HX SHOWS NO SIGNIFICANT WEIGHT LOSS X ONE YEAR. WEIGHT LOSS X 6 MONTHS=-5.8%. WEIGHT STABLE X ONE MONTH. USUAL BODY WEIGHT IN ABOUT 74 KG. WEIGHT LOSS X 2-3 YEARS -20%, 31#. TAKES ENSURE (VANILLA) AT HOME. ORDERED ENSURE TID. PROVIDES [address], [address] TO MONITOR INTAKE WEEKLY.
[2024-01-17 14:55] VITALS: BP 144/84; PULSE 104; RESP 20; TEMP 37; O2SAT 98
[2024-01-17 14:56] VITALS: BP 144/84
--- NOTE | 2024-01-17 15:14 | P.PNPSI_ITS ---
Subjective Subjective Date of Service: 01/17/24 Reason For Visit: Mood Disorder Subjective Notes: Conditional Voluntary and 3 Day Interim History: The nursing staff report that the patient had been compliant with treatment, she slept poorly last night. On interview, the patient reported that she wants to live today, she signed a 3 day notice. She stated that she is doing fine I explained her that I can not discharge her at this moment. We recently increased her Zyprexa last night. Mental Status Exam Mental Status Exam Patient Appearance: Appropriate Patient Orientation: Person and Situation Level of Consciousness: Awake Patient Behavior: Cooperative and Passive Mood Description: Withdrawn Affect Description: Constricted Patient Cognition Impaired: Yes Ability to Follow Directions: Fair Speech Pattern: Clear Hallucinations: None Delusions: Not Present Thought Process: Distracted and Slowed Thinking Thought Content: positive for [place] and positive for Poverty of Content Judgement: Poor Diagnostics Vital Signs (24Hr): Vital Signs - 24 hr 01/16/24 15:49 01/16/24 15:49 01/16/24 20:00 Temperature 97.4 F Pulse Rate 76 97 Respiratory Rate 18 Blood Pressure 163/74 H 163/74 H 131/79 Pulse Oximetry 97 Oxygen Delivery Method Room Air 01/16/24 20:27 01/17/24 08:04 01/17/24 08:06 Temperature 98.3 F Pulse Rate 87 Respiratory Rate 20 Blood Pressure 131/79 131/68 131/68 Pulse Oximetry 97 Oxygen Delivery Method Room Air 01/17/24 14:55 01/17/24 14:56 Temperature 98.6 F Pulse Rate 104 H Respiratory Rate 20 Blood Pressure 144/84 H 144/84 H Pulse Oximetry 98 Oxygen Delivery Method Room Air BMI result Body Mass Index 20.0 Labs 01/15/24 15:12 01/17/24 08:12 Labs: Laboratory Results - last 48 hr 01/15/24 01/15/24 01/17/24 15:12 18:10 08:12 WBC 6.6 RBC 3.80 L Hgb 12.0 Hct 33.7 L MCV 88.7 MCH 31.6 MCHC 35.6 H RDW 14.7 Plt Count 228 D MPV 10.1 Immature Gran % (Auto) 0.2 Neut % (Auto) 59.3 Lymph % (Auto) 27.3 [place] % (Auto) 9.2 Eos % (Auto) 3.1 Baso % (Auto) 0.9 Lymph # (Auto) 1.8 [place] # (Auto) 0.6 Eos # (Auto) 0.2 Baso # (Auto) 0.1 Abs Immat Gran (auto) 0.01 Absolute Neuts (auto) 3.9 Absolute Nucleated RBC 0.000 Nucleated RBC % (auto) 0.0 Sodium 134 L 138 Potassium 4.2 5.2 H D Chloride 103 103 Carbon Dioxide 21 L 26 Anion Gap 14 14 BUN 13 12 Creatinine 0.79 0.75 Estim Creat Clear Calc 56.6 59.2 Estimated GFR > 60 > 60 Random Glucose 122 H Fasting Glucose 134 H Calcium 9.7 10.0 Total Bilirubin < 0.5 0.3 AST 27 24 ALT 21 20 Alkaline Phosphatase 72 77 Total Protein 6.6 7.3 Albumin 3.8 4.0 Triglycerides 91 Cholesterol 208 H LDL Cholesterol, Calc 138 H HDL Cholesterol 52 Urine Color Yellow Urine Appearance Clear Urine pH 7.0 Ur Specific [place] <= 1.005 Urine Protein Negative Urine Glucose (UA) Negative Urine Ketones Negative Urine Blood Negative Urine Nitrite Negative Ur Leukocyte Esterase Large (3+) H Urine RBC 0-2 Urine WBC 21-50 H Ur Squamous Epith Cells 0-2 Urine Bacteria None Seen Hyaline Casts 0-2 Urine Opiates Screen Not Detected Ur Buprenorphine Scrn Not Detected Ur Oxycodone Screen Not Detected Urine Methadone Screen Not Detected Urine Fentanyl Screen Not Detected Ur Barbiturates Screen Not Detected Ur Phencyclidine Scrn Not Detected Ur Amphetamines Screen Not Detected U Benzodiazepines Scrn Not Detected Urine Cocaine Screen Not Detected U Marijuana (THC) Screen Not Detected Ethyl Alcohol < 10 Influenza Type A (PCR) NEGATIVE Influenza Type B (PCR) NEGATIVE RSV RNA Qual (PCR) NEGATIVE SARS-CoV-2 RNA (RT-PCR) NEGATIVE Medications Medications Current Medications Acetaminophen (Acetaminophen 325 Mg Tablet) 650 mg PO Q6H PRN PRN Reason: Headache/Pain Mild Scale (1-3) Al Hydroxide/Mg Hydroxide (Magnesium Hydrox/Alum Hydrox 30 Ml Oral.Susp) 30 ml PO Q6H PRN PRN Reason: Heartburn/Nausea Clonazepam (Clonazepam 0.5 Mg Tablet) 0.5 mg PO BID PRN PRN Reason: anxiety attack Last Admin: 01/16/24 20:30 Dose: 0.5 mg Dabigatran (Dabigatran Etexilate Mesylate 150 Mg Capsule) 150 mg PO BID [facility] Last Admin: 01/17/24 08:05 Dose: 150 mg Hydroxyzine HCl (Hydroxyzine Hcl 25 Mg Tablet) 25 mg PO Q6H PRN PRN Reason: Anxiety Last Admin: 01/17/24 00:55 Dose: 25 mg Lamotrigine (Lamotrigine 25 Mg Tablet) 25 mg PO BID [facility] Last Admin: 01/17/24 08:06 Dose: 25 mg Magnesium Hydroxide (Milk Of Magnesia 30 Ml Oral.Susp) 30 ml PO DAILY PRN PRN Reason: Constipation Olanzapine (Olanzapine 7.5 Mg Tablet) 15 mg PO BEDTIME [facility]JA Last Admin: 01/16/24 20:29 Dose: 15 mg Prazosin HCl (Prazosin Hcl 1 Mg Capsule) 2 mg PO TID [facility]; Protocol Last Admin: 01/17/24 14:56 Dose: 2 mg Trazodone HCl (Trazodone Hcl 50 Mg Tablet) 50 mg PO BEDTIME MRX1 PRN PRN Reason: Insomnia Last Admin: 01/17/24 00:55 Dose: 50 mg Trazodone HCl (Trazodone Hcl 50 Mg Tablet) 50 mg PO BEDTIME MRX1 PRN PRN Reason: Insomnia Allergies Allergies Allergy/AdvReac Type Severity Reaction Status Date / Time adhesive AdvReac Unknown Verified 01/15/24 14:28 aspirin AdvReac Unknown Verified 01/15/24 14:28 epinephrine AdvReac Unknown Verified 01/15/24 14:28 Assessment & Plan Assessment & Plan (1) Bipolar disorder: Status: Acute Code(s): F31.9 - Bipolar disorder, unspecified Plan The patient is a 78-year-old female with a past history of bipolar disorder, very well known by this team since she had been admitted several times recently discharged 2 weeks ago. She came back, with mixed symptoms. Plan 1. Gather collateral information. 2. The patient signed conditional voluntary. 3. We will change her level of observation to 5 minutes check. 4. We discussed at length risks, benefits, side-effects and alternatives and since the patient stated that she had been fully compliant with with poor sleep, we are going to increase Zyprexa to 15 mg p.o. q.h.s.. 5. Continue with medical workout. 6. Reassessment with results. Reason for continued inpatient stay Substantial Risk for: inability to function, rapid decompensation and med/psych decompensation Time Spent With Patient Time: Total time managing care of this patient today __20__ minutes.
[2024-01-17 20:01] VITALS: BP 156/76; PULSE 101; RESP 16; TEMP 36.4; O2SAT 95
[2024-01-17 20:03] VITALS: BP 156/76
[2024-01-17] MEDS: OLANZapine 7.5 MG TABLET 15 MG PO (20:03)
[2024-01-17] MEDS: clonazePAM 0.5 MG TABLET PO (23:58)
[2024-01-18 08:32] VITALS: BP 118/65; PULSE 102; RESP 20; TEMP 36.6; O2SAT 95
[2024-01-18] MEDS: lamoTRIgine 25 MG TABLET PO ×2 (08:46→20:15)
[2024-01-18] MEDS: hydrOXYzine HCL 25 MG TABLET PO (08:46)
[2024-01-18] MEDS: clonazePAM 0.5 MG TABLET PO (08:46)
[2024-01-18] MEDS: Dabigatran Etexilate Mesylate 150 MG CAPSULE PO ×2 (08:46→20:15)
[2024-01-18] MEDS: Prazosin HCL 1 MG CAPSULE 2 MG PO ×3 (08:46→20:15)
--- NOTE | 2024-01-18 10:08 | HO.PSYCHPN ---
Subjective Subjective Date of Service: 01/18/24 Reason For Visit: Mood Disorder Subjective Notes: Conditional Voluntary Interim History: Pt anxious not sleeping racing thoughts mood instability Mental Status Exam Mental Status Exam Patient Appearance: Appropriate Patient Orientation: Person, Place and Situation Level of Consciousness: Awake Patient Behavior: Cooperative Mood Description: Withdrawn, Anxious and Apprehensive Affect Description: Constricted Patient Cognition Impaired: Yes Ability to Follow Directions: Fair Speech Pattern: Clear Memory Description: Intact Hallucinations: None Delusions: Not Present Thought Process: Racing, Distracted and Rumination Thought Content: positive for [place] and positive for Poverty of Content Judgement: Poor Diagnostics Vital Signs (24Hr): Vital Signs - 24 hr 01/17/24 14:55 01/17/24 14:56 01/17/24 20:01 Temperature 98.6 F 97.5 F Pulse Rate 104 H 101 H Respiratory Rate 20 16 Blood Pressure 144/84 H 144/84 H 156/76 H Pulse Oximetry 98 95 Oxygen Delivery Method Room Air Room Air 01/17/24 20:03 01/18/24 08:32 Temperature 98 F Pulse Rate 102 H Respiratory Rate 20 Blood Pressure 156/76 H 118/65 Pulse Oximetry 95 Oxygen Delivery Method Room Air BMI result Body Mass Index 20.0 Labs 01/15/24 15:12 01/17/24 08:12 Labs: Laboratory Results - last 48 hr 01/17/24 08:12 Sodium 138 Potassium 5.2 H D Chloride 103 Carbon Dioxide 26 Anion Gap 14 BUN 12 Creatinine 0.75 Estim Creat Clear Calc 59.2 Estimated GFR > 60 Fasting Glucose 134 H Calcium 10.0 Total Bilirubin 0.3 AST 24 ALT 20 Alkaline Phosphatase 77 Total Protein 7.3 Albumin 4.0 Triglycerides 91 Cholesterol 208 H LDL Cholesterol, Calc 138 H HDL Cholesterol 52 Medications Medications Current Medications Acetaminophen (Acetaminophen 325 Mg Tablet) 650 mg PO Q6H PRN PRN Reason: Headache/Pain Mild Scale (1-3) Al Hydroxide/Mg Hydroxide (Magnesium Hydrox/Alum Hydrox 30 Ml Oral.Susp) 30 ml PO Q6H PRN PRN Reason: Heartburn/Nausea Clonazepam (Clonazepam 0.5 Mg Tablet) 0.5 mg PO BID PRN PRN Reason: anxiety attack Last Admin: 01/18/24 08:46 Dose: 0.5 mg Dabigatran (Dabigatran Etexilate Mesylate 150 Mg Capsule) 150 mg PO BID [facility] Last Admin: 01/18/24 08:46 Dose: 150 mg Hydroxyzine HCl (Hydroxyzine Hcl 25 Mg Tablet) 25 mg PO Q6H PRN PRN Reason: Anxiety Last Admin: 01/18/24 08:46 Dose: 25 mg Lamotrigine (Lamotrigine 25 Mg Tablet) 25 mg PO BID [facility] Last Admin: 01/18/24 08:46 Dose: 25 mg Magnesium Hydroxide (Milk Of Magnesia 30 Ml Oral.Susp) 30 ml PO DAILY PRN PRN Reason: Constipation Olanzapine (Olanzapine 7.5 Mg Tablet) 15 mg PO BEDTIME [facility] Last Admin: 01/17/24 20:03 Dose: 15 mg Prazosin HCl (Prazosin Hcl 1 Mg Capsule) 2 mg PO TID [facility]; Protocol Last Admin: 01/18/24 08:46 Dose: 2 mg Trazodone HCl (Trazodone Hcl 50 Mg Tablet) 50 mg PO BEDTIME MRX1 PRN PRN Reason: Insomnia Last Admin: 01/17/24 00:55 Dose: 50 mg Trazodone HCl (Trazodone Hcl 50 Mg Tablet) 50 mg PO BEDTIME MRX1 PRN PRN Reason: Insomnia Allergies Allergies Allergy/AdvReac Type Severity Reaction Status Date / Time adhesive AdvReac Unknown Verified 01/15/24 14:28 aspirin AdvReac Unknown Verified 01/15/24 14:28 epinephrine AdvReac Unknown Verified 01/15/24 14:28 Assessment & Plan Assessment & Plan (1) Bipolar disorder: Status: Acute Code(s): F31.9 - Bipolar disorder, unspecified Plan The patient is a 78-year-old female with a past history of bipolar disorder, very well known by this team since she had been admitted several times recently discharged 2 weeks ago. She came back, with mixed symptoms. Plan 1. Gather collateral information. 2. The patient signed conditional voluntary. 3. We will change her level of observation to 5 minutes check. 4. We discussed at length risks, benefits, side-effects and alternatives and since the patient stated that she had been fully compliant with with poor sleep, we are going to increase Zyprexa to 15 mg p.o. q.h.s.. 5. Continue with medical workout. 6. Reassessment with results. 01/18/24 Pt seen in f/u mood anxious mixed state zyprexa hs was inc limited insight Patient educated on: diagnosis and medication risk/benefits Informed Consent: further education needed Reason for continued inpatient stay Substantial Risk for: harm to self and rapid decompensation Time Spent With Patient Time: Total time managing care of this patient today _30___ minutes.
[2024-01-18 14:36] VITALS: BP 124/71; PULSE 99
[2024-01-18 20:00] VITALS: BP 152/76; PULSE 100; RESP 18; TEMP 36.6; O2SAT 96
[2024-01-18 20:15] VITALS: BP 152/76
[2024-01-18] MEDS: OLANZapine 7.5 MG TABLET 15 MG PO (20:15)
[2024-01-18] MEDS: traZODone HCL 50 MG TABLET PO (20:15)
[2024-01-19 08:09] VITALS: BP 178/84; PULSE 103; RESP 20; TEMP 36.3; O2SAT 97
[2024-01-19] MEDS: lamoTRIgine 25 MG TABLET PO ×2 (08:10→20:56)
[2024-01-19] MEDS: Prazosin HCL 1 MG CAPSULE 2 MG PO ×3 (08:10→20:56)
[2024-01-19] MEDS: Dabigatran Etexilate Mesylate 150 MG CAPSULE PO ×2 (08:11→20:55)
--- NOTE | 2024-01-19 11:12 | P.PNPSI_ITS ---
Subjective Subjective Date of Service: 01/19/24 Reason For Visit: Mood Disorder Subjective Notes: Conditional Voluntary Interim History: Patient seems to have some difficulty with processing her outpatient medication which was post beyond. Accepting of treatment with Lamictal and olanzapine. Less labile somewhat pressured no SI denies any current acute CVA symptoms Mental Status Exam Mental Status Exam Patient Appearance: Appropriate Patient Orientation: Person, Place and Situation Level of Consciousness: Awake Patient Behavior: Cooperative Mood Description: Withdrawn, Anxious and Apprehensive Affect Description: Constricted Patient Cognition Impaired: Yes Ability to Follow Directions: Fair Speech Pattern: Clear Memory Description: Intact Hallucinations: None Delusions: Not Present Thought Process: Racing, Distracted and Rumination Thought Content: positive for [place] and positive for Poverty of Content Judgement: Poor Diagnostics Vital Signs (24Hr): Vital Signs - 24 hr 01/18/24 14:36 01/18/24 20:00 01/18/24 20:15 Temperature 98 F Pulse Rate 99 100 Respiratory Rate 18 Blood Pressure 124/71 152/76 H 152/76 H Pulse Oximetry 96 Oxygen Delivery Method Room Air 01/19/24 08:09 Temperature 97.4 F Pulse Rate 103 H Respiratory Rate 20 Blood Pressure 178/84 H Pulse Oximetry 97 Oxygen Delivery Method Room Air BMI result Body Mass Index 20.0 Labs 01/15/24 15:12 01/17/24 08:12 Medications Medications Current Medications Acetaminophen (Acetaminophen 325 Mg Tablet) 650 mg PO Q6H PRN PRN Reason: Headache/Pain Mild Scale (1-3) Al Hydroxide/Mg Hydroxide (Magnesium Hydrox/Alum Hydrox 30 Ml Oral.Susp) 30 ml PO Q6H PRN PRN Reason: Heartburn/Nausea Clonazepam (Clonazepam 0.5 Mg Tablet) 0.5 mg PO BID PRN PRN Reason: anxiety attack Last Admin: 01/18/24 08:46 Dose: 0.5 mg Dabigatran (Dabigatran Etexilate Mesylate 150 Mg Capsule) 150 mg PO BID [facility] Last Admin: 01/19/24 08:11 Dose: 150 mg Hydroxyzine HCl (Hydroxyzine Hcl 25 Mg Tablet) 25 mg PO Q6H PRN PRN Reason: Anxiety Last Admin: 01/18/24 08:46 Dose: 25 mg Lamotrigine (Lamotrigine 25 Mg Tablet) 25 mg PO BID [facility] Last Admin: 01/19/24 08:10 Dose: 25 mg Magnesium Hydroxide (Milk Of Magnesia 30 Ml Oral.Susp) 30 ml PO DAILY PRN PRN Reason: Constipation Olanzapine (Olanzapine 7.5 Mg Tablet) 15 mg PO BEDTIME [facility] Last Admin: 01/18/24 20:15 Dose: 15 mg Prazosin HCl (Prazosin Hcl 1 Mg Capsule) 2 mg PO TID [facility]; Protocol Last Admin: 01/19/24 08:10 Dose: 2 mg Trazodone HCl (Trazodone Hcl 50 Mg Tablet) 50 mg PO BEDTIME MRX1 PRN PRN Reason: Insomnia Last Admin: 01/18/24 20:15 Dose: 50 mg Trazodone HCl (Trazodone Hcl 50 Mg Tablet) 50 mg PO BEDTIME MRX1 PRN PRN Reason: Insomnia Allergies Allergies Allergy/AdvReac Type Severity Reaction Status Date / Time adhesive AdvReac Unknown Verified 01/15/24 14:28 aspirin AdvReac Unknown Verified 01/15/24 14:28 epinephrine AdvReac Unknown Verified 01/15/24 14:28 Assessment & Plan Assessment & Plan (1) Bipolar disorder: Status: Acute Code(s): F31.9 - Bipolar disorder, unspecified Plan The patient is a 78-year-old female with a past history of bipolar disorder, very well known by this team since she had been admitted several times recently discharged 2 weeks ago. She came back, with mixed symptoms. Plan 1. Gather collateral information. 2. The patient signed conditional voluntary. 3. We will change her level of observation to 5 minutes check. 4. We discussed at length risks, benefits, side-effects and alternatives and since the patient stated that she had been fully compliant with with poor sleep, we are going to increase Zyprexa to 15 mg p.o. q.h.s.. 5. Continue with medical workout. 6. Reassessment with results. 01/18/24 Pt seen in f/u mood anxious mixed state zyprexa hs was inc limited insight 01/19/2024 On Lamictal and olanzapine Reason for continued inpatient stay Substantial Risk for: harm to self and rapid decompensation Time Spent With Patient Time: Total time managing care of this patient today ____ minutes.
[2024-01-19 15:38] VITALS: BP 106/62
[2024-01-19 20:00] VITALS: BP 115/57; PULSE 105; RESP 16; TEMP 36.8; O2SAT 94
[2024-01-19 20:56] VITALS: BP 115/57
[2024-01-19] MEDS: OLANZapine 7.5 MG TABLET 15 MG PO (20:56)
[2024-01-20 08:00] VITALS: BP 115/62; PULSE 99; RESP 18; TEMP 36.7; O2SAT 96
[2024-01-20] MEDS: lamoTRIgine 25 MG TABLET PO ×2 (08:51→19:54)
[2024-01-20] MEDS: Prazosin HCL 1 MG CAPSULE 2 MG PO ×2 (08:51→19:54)
[2024-01-20] MEDS: Dabigatran Etexilate Mesylate 150 MG CAPSULE PO ×2 (08:51→19:55)
--- NOTE | 2024-01-20 10:53 | HO.PSYCHPN ---
Subjective Subjective Date of Service: 01/20/24 Reason For Visit: Mood Disorder Interim History: Patient reports she feels good; she reports no SI. She says sheis happy and wants to return home; She says she gets help at home from [facility]. Accepting of treatment with Lamictal and olanzapine. Less labile somewhat pressured no SI denies any current acute CVA symptoms Medication Compliance: Yes Side effects from medications: No Attending Groups: Yes Review of Systems Acute medical concerns: No Medical Review of Systems: unchanged Review of Systems Review of Systems As per HPI. Yes all other systems are reviewed and are negative Constitutional: Reports as per HPI Mental Status Exam Mental Status Exam Patient Appearance: Appropriate Patient Orientation: Person, Place and Situation Level of Consciousness: Awake Patient Behavior: Cooperative Mood Description: Withdrawn, Anxious and Apprehensive Affect Description: Constricted Patient Cognition Impaired: Yes Ability to Follow Directions: Fair Speech Pattern: Clear Memory Description: Intact Thought Process: Intact Thought Content: positive for Loose Associations Judgement: Fair Diagnostics Vital Signs (24Hr): Vital Signs - 24 hr 01/19/24 15:38 01/19/24 20:00 01/19/24 20:56 Temperature 98.3 F Pulse Rate 105 H Respiratory Rate 16 Blood Pressure 106/62 115/57 L 115/57 L Pulse Oximetry 94 Oxygen Delivery Method Room Air 01/20/24 08:00 Temperature 98.1 F Pulse Rate 99 Respiratory Rate 18 Blood Pressure 115/62 Pulse Oximetry 96 Oxygen Delivery Method Room Air BMI result Body Mass Index 20.0 Labs 01/15/24 15:12 01/17/24 08:12 Medications Medications Current Medications Acetaminophen (Acetaminophen 325 Mg Tablet) 650 mg PO Q6H PRN PRN Reason: Headache/Pain Mild Scale (1-3) Al Hydroxide/Mg Hydroxide (Magnesium Hydrox/Alum Hydrox 30 Ml Oral.Susp) 30 ml PO Q6H PRN PRN Reason: Heartburn/Nausea Clonazepam (Clonazepam 0.5 Mg Tablet) 0.5 mg PO BID PRN PRN Reason: anxiety attack Last Admin: 01/18/24 08:46 Dose: 0.5 mg Dabigatran (Dabigatran Etexilate Mesylate 150 Mg Capsule) 150 mg PO BID [facility] Last Admin: 01/20/24 08:51 Dose: 150 mg Hydroxyzine HCl (Hydroxyzine Hcl 25 Mg Tablet) 25 mg PO Q6H PRN PRN Reason: Anxiety Last Admin: 01/18/24 08:46 Dose: 25 mg Lamotrigine (Lamotrigine 25 Mg Tablet) 25 mg PO BID [facility] Last Admin: 01/20/24 08:51 Dose: 25 mg Magnesium Hydroxide (Milk Of Magnesia 30 Ml Oral.Susp) 30 ml PO DAILY PRN PRN Reason: Constipation Olanzapine (Olanzapine 7.5 Mg Tablet) 15 mg PO BEDTIME [facility] Last Admin: 01/19/24 20:56 Dose: 15 mg Prazosin HCl (Prazosin Hcl 1 Mg Capsule) 2 mg PO TID [facility]; Protocol Last Admin: 01/20/24 08:51 Dose: 2 mg Allergies Allergies Allergy/AdvReac Type Severity Reaction Status Date / Time adhesive AdvReac Unknown Verified 01/15/24 14:28 aspirin AdvReac Unknown Verified 01/15/24 14:28 epinephrine AdvReac Unknown Verified 01/15/24 14:28 Assessment & Plan Assessment & Plan (1) Bipolar disorder: Status: Acute Code(s): F31.9 - Bipolar disorder, unspecified Plan The patient is a 78-year-old female with a past history of bipolar disorder, very well known by this team since she had been admitted several times recently discharged 2 weeks ago. She came back, with mixed symptoms. Plan 1. Gather collateral information. 2. The patient signed conditional voluntary. 3. We will change her level of observation to 5 minutes check. 4. We discussed at length risks, benefits, side-effects and alternatives and since the patient stated that she had been fully compliant with with poor sleep, we are going to increase Zyprexa to 15 mg p.o. q.h.s.. 5. Continue with medical workout. 6. Reassessment with results. 01/18/24 Pt seen in f/u mood anxious mixed state zyprexa hs was inc limited insight 01/19/2024 On Lamictal and olanzapine 01/19 no changes; continue tx plan Patient educated on: diagnosis, medication risk/benefits and therapeutic strategies Reason for continued inpatient stay Substantial Risk for: inability to function and rapid decompensation Time Spent With Patient Time: Total time managing care of this patient today ____ minutes.
[2024-01-20 14:13] VITALS: BP 98/54
[2024-01-20] MEDS: clonazePAM 0.5 MG TABLET PO (18:47)
[2024-01-20 19:54] VITALS: BP 124/59
[2024-01-20] MEDS: OLANZapine 7.5 MG TABLET 15 MG PO (19:55)
[2024-01-20 20:00] VITALS: BP 124/59; PULSE 68; RESP 18; TEMP 36.4; O2SAT 95
[2024-01-21 08:00] VITALS: BP 130/61; PULSE 88; RESP 18; TEMP 36.1; O2SAT 95
[2024-01-21] MEDS: lamoTRIgine 25 MG TABLET PO ×2 (08:21→20:12)
[2024-01-21] MEDS: Prazosin HCL 1 MG CAPSULE 2 MG PO ×3 (08:21→20:12)
[2024-01-21] MEDS: Dabigatran Etexilate Mesylate 150 MG CAPSULE PO ×2 (08:21→20:12)
[2024-01-21 15:36] VITALS: BP 141/86
[2024-01-21] MEDS: clonazePAM 0.5 MG TABLET PO (17:02)
--- NOTE | 2024-01-21 17:21 | P.PNPSI_ITS ---
Subjective Subjective Date of Service: 01/21/24 Reason For Visit: Mood Disorder Subjective Notes: Conditional Voluntary Interim History: Pt gradually improving less mildly expansive difficulty accepting help as outpt no si not overly impulsive lack of insight at times Mental Status Exam Mental Status Exam Patient Appearance: Appropriate Patient Orientation: Person, Place and Situation Level of Consciousness: Awake Patient Behavior: Cooperative Mood Description: Elated (mildly) and Apprehensive Affect Description: Labile and Expansive Patient Cognition Impaired: Yes Ability to Follow Directions: Fair Speech Pattern: Clear Memory Description: Intact Thought Process: Intact Thought Content: positive for Loose Associations Judgement: Fair Diagnostics Vital Signs (24Hr): Vital Signs - 24 hr 01/20/24 19:54 01/20/24 20:00 01/21/24 08:00 Temperature 97.5 F 97 F Pulse Rate 68 88 Respiratory Rate 18 18 Blood Pressure 124/59 L 124/59 L 130/61 Pulse Oximetry 95 95 Oxygen Delivery Method Room Air Room Air 01/21/24 15:36 Temperature Pulse Rate Respiratory Rate Blood Pressure 141/86 H Pulse Oximetry Oxygen Delivery Method BMI result Body Mass Index 20.0 Labs 01/15/24 15:12 01/17/24 08:12 Medications Medications Current Medications Acetaminophen (Acetaminophen 325 Mg Tablet) 650 mg PO Q6H PRN PRN Reason: Headache/Pain Mild Scale (1-3) Al Hydroxide/Mg Hydroxide (Magnesium Hydrox/Alum Hydrox 30 Ml Oral.Susp) 30 ml PO Q6H PRN PRN Reason: Heartburn/Nausea Clonazepam (Clonazepam 0.5 Mg Tablet) 0.5 mg PO BID PRN PRN Reason: anxiety attack Last Admin: 01/21/24 17:02 Dose: 0.5 mg Dabigatran (Dabigatran Etexilate Mesylate 150 Mg Capsule) 150 mg PO BID [facility]PLACED [facility] Last Admin: 01/21/24 08:21 Dose: 150 mg Hydroxyzine HCl (Hydroxyzine Hcl 25 Mg Tablet) 25 mg PO Q6H PRN PRN Reason: Anxiety Last Admin: 01/18/24 08:46 Dose: 25 mg Lamotrigine (Lamotrigine 25 Mg Tablet) 25 mg PO BID [facility]PL[facility] Last Admin: 01/21/24 08:21 Dose: 25 mg Magnesium Hydroxide (Milk Of Magnesia 30 Ml Oral.Susp) 30 ml PO DAILY PRN PRN Reason: Constipation Olanzapine (Olanzapine 7.5 Mg Tablet) 15 mg PO BEDTIME [facility] Last Admin: 01/20/24 19:55 Dose: 15 mg Prazosin HCl (Prazosin Hcl 1 Mg Capsule) 2 mg PO TID [facility]; Protocol Last Admin: 01/21/24 15:36 Dose: 2 mg Allergies Allergies Allergy/AdvReac Type Severity Reaction Status Date / Time adhesive AdvReac Unknown Verified 01/15/24 14:28 aspirin AdvReac Unknown Verified 01/15/24 14:28 epinephrine AdvReac Unknown Verified 01/15/24 14:28 Assessment & Plan Assessment & Plan (1) Bipolar disorder: Status: Acute Code(s): F31.9 - Bipolar disorder, unspecified Plan The patient is a 78-year-old female with a past history of bipolar disorder, very well known by this team since she had been admitted several times recently discharged 2 weeks ago. She came back, with mixed symptoms. Plan 1. Gather collateral information. 2. The patient signed conditional voluntary. 3. We will change her level of observation to 5 minutes check. 4. We discussed at length risks, benefits, side-effects and alternatives and since the patient stated that she had been fully compliant with with poor sleep, we are going to increase Zyprexa to 15 mg p.o. q.h.s.. 5. Continue with medical workout. 6. Reassessment with results. 01/18/24 Pt seen in f/u mood anxious mixed state zyprexa hs was inc limited insight 01/19/2024 On Lamictal and olanzapine 01/19 no changes; continue tx plan 01/21/24 gradualy improving on olanzapine 15 lamictal Reason for continued inpatient stay Substantial Risk for: inability to function and rapid decompensation Time Spent With Patient Time: Total time managing care of this patient today ____ minutes.
[2024-01-21 19:41] VITALS: BP 108/55; PULSE 93; RESP 16; TEMP 36.7; O2SAT 94
[2024-01-21] MEDS: OLANZapine 7.5 MG TABLET 15 MG PO (20:12)
[2024-01-22] MEDS: clonazePAM 0.5 MG TABLET PO (00:53)
[2024-01-22 08:00] VITALS: BP 154/75; PULSE 90; RESP 18; TEMP 36.3; O2SAT 96
[2024-01-22] MEDS: Dabigatran Etexilate Mesylate 150 MG CAPSULE PO (08:19)
[2024-01-22] MEDS: lamoTRIgine 25 MG TABLET PO (08:19)
[2024-01-22] MEDS: Prazosin HCL 1 MG CAPSULE 2 MG PO (08:19)
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
== END 2024-01-22 13:04 | disposition home health service (06) | DRG 885 ==
LOC: HO.ED 15:57 → HO.PGERI 01-16 13:54
PROVIDERS: Registered Nurse Emergency; Admitting Provider Psychiatry & Neurology Psychiatry; Emergency Provider Emergency Medicine; Visit Provider Psychiatry & Neurology Psychiatry
DX: F31.9 Bipolar disorder, unspecified (principal); F43.10 Post-traumatic stress disorder, unspecified; Z95.0 Presence of cardiac pacemaker; F17.210 Nicotine dependence, cigarettes, uncomplicated; Z71.6 Tobacco abuse counseling; Z20.822 Contact with and (suspected) exposure to COVID-19; Z91.51 Personal history of suicidal behavior; Z79.899 Other long term (current) drug therapy
CPT/HCPCS: 0241U; 36415; 80053; 80061; 80307; 81001; 85025; 87086; 99285; S9485

== ENCOUNTER → 2024-01-16 13:50 | Outpatient (BNV) | payer MEDICARE, SELFPAY | PROVIDERS: Admitting Provider Psychiatry & Neurology Psychiatry; Emergency Provider Emergency Medicine; Visit Provider Psychiatry & Neurology Psychiatry | DX: F31.63 Bipolar disorder, current episode mixed, severe, without psychotic features (principal) | CPT/HCPCS: 90792; 99231; 99232 ==

== ENCOUNTER → 2024-01-16 13:50 | Outpatient (BNV) | payer MEDICARE, SELFPAY | PROVIDERS: Admitting Provider Psychiatry & Neurology Psychiatry; Emergency Provider Emergency Medicine; Visit Provider Psychiatry & Neurology Psychiatry | DX: F31.63 Bipolar disorder, current episode mixed, severe, without psychotic features (principal) | CPT/HCPCS: 99231; 99232; 99239 ==

== ENCOUNTER 2024-02-24 14:51 | Emergency (ER) | payer MEDICARE, SELFPAY ==
[2024-02-24 15:02] VITALS: BP 132/77; BP 174/94; PULSE 90; PULSE 94; RESP 14; TEMP 36.1; O2SAT 95; O2SAT 96; BMI 20.5
[2024-02-24 15:06] VITALS: RESP 16
[2024-02-24 15:22] LABS: Appearance Urine Clear; Color Urine Yellow; Glucose Urine UA Negative (Negative); Leukocyte Esterase Urine Moderate (2+) (Negative); Nitrite Urine Negative (Negative); Specific Gravity - Urine <= 1.005 (1.005-1.025); UMIC TRIGGER UACC YES; Urine Blood Negative (Negative); Urine Ketones Negative (Negative); Urine Protein Negative (Neg-Trace)
[2024-02-24 15:27] LABS: Bacteria Urine None Seen (None Seen); Hyaline Casts Urine 0-2 /LPF (0-2); RBC Urine 0-2 /HPF (0-2); Squamous Epithelial Cell Urine 0-2 /HPF (0-2); UACC Culture Trigger YES
--- NOTE | 2024-02-24 15:28 | ED.GENADULT ---
HPI - General Adult General Chief complaint: Psychiatric Symptoms Stated complaint: CRISIS EVAL PER EMS Time Seen by Provider: 02/24/24 15:03 Source: patient and EMS History of Present Illness ED Provider: Anisha HPI narrative: 78-year-old female with past medical history depression, bipolar disorder, COPD, hyperlipidemia, PTSD, hypertension presenting for mood disorder. Patient states that her phone is not work and she tried making a call to crisis hotline to discuss how she had been feeling lately however due to a phone outward and she was unable to get in touch with them. She subsequently walked him managers office who contacted her daughter and her daughter subsequently called 911. Patient denies SI/HI however is feeling depressed and would like to talk to Behavioral Health. Patient is also complaining of dysuria and thinks that she might have UTI Related Data Home Medications ?Medication ?Instructions ?Recorded ?Confirmed clonidine HCl 0.2 mg tablet 0.2 mg PO BID PRN panic attack 02/24/24 02/24/24 Previous Rx's ?Medication ?Instructions ?Recorded clonazepam 0.5 mg tablet 0.5 mg PO BID PRN anxiety attack 01/22/24 15 days #30 tabs dabigatran etexilate 150 mg 150 mg PO BID #60 caps 01/22/24 capsule (Pradaxa) lamotrigine 25 mg tablet 25 mg PO DIRECTED 30 days #90 01/22/24 tabs olanzapine 15 mg tablet 15 mg PO BEDTIME #30 tabs 01/22/24 cephalexin 500 mg capsule 500 mg PO TID UTI 7 days #21 caps 02/24/24 Allergies Allergy/AdvReac Type Severity Reaction Status Date / Time adhesive AdvReac Unknown Verified 02/24/24 15:05 aspirin AdvReac Unknown Verified 02/24/24 15:05 epinephrine AdvReac Unknown Verified 02/24/24 15:05 Review of Systems Review of Systems: Patient endorses depressed mood and dysuria however denies head pain, neck pain, chest pain, shortness of breath, abdominal pain Yes all other systems are reviewed and are negative [facility] Past Medical History Attestation statement: The following information was validated with the patient. [facility] Narrative: Bipolar disorder, depression, COPD, tobacco use, hyperlipidemia, PTSD Source: old records reviewed Medical History Pacemaker FH: cholecystectomy Lung nodule Syncope Osteopenia Hyperparathyroidism Bipolar disorder C. difficile diarrhea Mitral valve prolapse Tobacco abuse TIA (transient ischemic attack) Prediabetes Hyperlipidemia Depression PTSD (post-traumatic stress disorder) Essential hypertension COPD (chronic obstructive pulmonary disease) Surgical History History of appendectomy History of parathyroidectomy History of colectomy Social History Social History Household Members: None Household Members Other:: lives with self Housing: Apartment Do you presently have visiting nurse or other home services: Yes (VNA to start per pt) Alcohol intake: never Comment: 5 min safety checks. Patient Tobacco Use Status: Current everyday Tobacco user Tobacco use type: Cigarette Cigarette Packs Per Day: 3 Cigarettes Per Day: 60.0 Years Smoked: 20 Smoked in Last 30 Days: Yes e-Cigarette/Vaping Use: Never Used Second Hand Smoke Exposure: Yes (people that she smokes with) Use of substances other than those prescribed or required for medical reasons: No Substance Use Type: Prescription Drugs and Caffiene Advance Directives: Yes Advance Directives on File: Yes Advance Directives Date on File: 02/08/22 Do you have a plan to hurt others: No Plan service: No Sexual orientation: Straight/Heterosexual Physical Exam ED Vital Signs: Vital Signs - 24 hr 02/24/24 15:02 02/24/24 15:06 Temperature 97.0 F Pulse Rate 90 Respiratory Rate 14 16 Blood Pressure 174/94 H Pulse Oximetry 96 Oxygen Delivery Method Room Air BMI result Body Mass Index 20.5 Head normocephalic atraumatic, lungs clear to auscultation bilaterally, normal S1-S2 regular rhythm, abdomen is soft nontender nondistended, no lower extremity edema appreciated Medications Administered Generic Name Dose Route Start Last Admin Trade Name Freq PRN Reason Stop Dose Admin Clonidine HCl 0.2 mg 02/24/24 16:21 02/24/24 16:26 Clonidine Hcl 0.2 Mg Tablet PO 0.2 mg BID PRN Administration panic attack Protocol Medical Decision Making Medical Decision Making MDM Narrative: I am concerned for the following; UTI, psychiatric illness At this time there is no concern for suicide ideation or homicidal ideation I placed consult order to care team Pt was evlauted by care team who felt she was safe for discharge. It was confirmed that patient has followup with her providers and she has an upcoming appt. She will also be receiving a new phone. Pt is agreeable with plan. Pt's UA mildly concerning for UTI; I ordered keflex and sent prescription to her pharmacy I gave patient return precautions and outpatient follow up instructions Differential Diagnosis Differential Diagnoses: The differential diagnosis associated with the presentation includes UTI, psychiatric illness Consult Healthcare Provider Management of the patient was discussed with: Behavioral Health Provider Lab Data [facility] Lab Attestation statement: I reviewed the patient's lab results. WBCs and UA 02/24/24 15:32 02/24/24 15:32 Labs: Lab Results 02/24/24 02/24/24 Range/Units 15:15 15:32 WBC 7.2 (4.8-10.8) X10*3/uL RBC 4.48 (4.20-5.50) X10*6/uL Hgb 14.1 (12.0-16.0) g/dl Hct 40.2 (37.0-47.0) % MCV 89.7 (80.0-98.0) fL MCH 31.5 (27.0-33.0) pg MCHC 35.1 H (31.0-35.0) g/dl RDW 14.1 (11.0-16.0) % Plt Count 215 (160-400) X10*3/uL MPV 9.4 (9.4-12.3) fL Immature Gran % (Auto) 0.4 (0.0-0.4) % Neut % (Auto) 64.6 (45-73) % Lymph % (Auto) 22.5 (20-40) % [place] % (Auto) 8.8 (2-11) % Eos % (Auto) 2.9 (0-4) % Baso % (Auto) 0.8 (0-2) % Lymph # (Auto) 1.6 (1.2-4.9) X10*3/uL [place] # (Auto) 0.6 (0.1-1.2) X10*3/uL Eos # (Auto) 0.2 (0.0-0.4) X10*3/uL Baso # (Auto) 0.1 (0.0-0.2) X10*3/uL Abs Immat Gran (auto) 0.03 (0.00-0.03) X10*3/uL Absolute Neuts (auto) 4.6 (2.0-8.3) x10*3/uL Absolute Nucleated RBC 0.000 (0.0-0.012) X10*3/uL Nucleated RBC % (auto) 0.0 (0.0-0.2) /100WBC Sodium 141 (135-145) mmol/L Potassium 3.8 D (3.3-5.1) mmol/L Chloride 107 (96-108) mmol/L Carbon Dioxide 25 (22-29) mmol/L Anion Gap 13 (12-20) BUN 11 (9-16) mg/dL Creatinine 0.81 (0.5-1.4) mg/dL Estim Creat Clear Calc 56.2 Estimated GFR > 60 Random Glucose 111 (60-115) mg/dL Calcium 9.8 (8.4-10.2) mg/dL Total Bilirubin 0.3 (0.0-1.0) mg/dL AST 17 (5-31) U/L ALT 11 (0-31) U/L Alkaline Phosphatase 73 (39-117) U/L Total Protein 7.3 (6.5-8.0) g/dL Albumin 4.0 (3.5-5.0) g/dL Urine Color Yellow Urine Appearance Clear Urine pH 6.0 (5.0-9.0) Ur Specific [place] <= 1.005 (1.005-1.025) Urine Protein Negative (Neg-Trace) mg/dL Urine Glucose (UA) Negative (Negative) mg/dL Urine Ketones Negative (Negative) mg/dL Urine Blood Negative (Negative) Urine Nitrite Negative (Negative) Ur Leukocyte Esterase Moderate (2+) H (Negative) Urine RBC 0-2 (0-2) /HPF Urine WBC 6-10 H (0-5) /HPF Ur Squamous Epith Cells 0-2 (0-2) /HPF Urine Bacteria None Seen (None Seen) Hyaline Casts 0-2 (0-2) /LPF Urine Opiates Screen Not Detected (Not Detect) Ur Buprenorphine Scrn Not Detected (Not Detect) ng/mL Ur Oxycodone Screen Not Detected (Not Detect) ng/mL Urine Methadone Screen Not Detected (Not Detect) ng/mL Urine Fentanyl Screen Not Detected (Not Detect) Ur Barbiturates Screen Not Detected (Not Detect) Ur Phencyclidine Scrn Not Detected (Not Detect) Ur Amphetamines Screen Not Detected (Not Detect) U Benzodiazepines Scrn Not Detected (Not Detect) Urine Cocaine Screen Not Detected (Not Detect) U Marijuana (THC) Screen Not Detected (Not Detect) Ethyl Alcohol < 10 mg/dL Discharge Plan Discharge Clinical Impression: Mood disorder, UTI symptoms Patient Disposition: Home, Self-Care Additional Instructions: Please cigar 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 If you develop any new or worsening symptoms please seek immediate medical attention returns to the emergency department. Please follow-up with your outpatient providers in 24:48 hours Prescriptions: New cephalexin 500 mg capsule 500 mg PO TID 7 Days Qty: 21 0RF No Action lamotrigine 25 mg Tablet 25 mg PO DIRECTED 30 Days Qty: 90 0RF Rx Instructions: 1 tablet in the am 2 tablets at bedtime clonazepam 0.5 mg tablet 0.5 mg PO BID PRN (Reason: anxiety attack) 15 Days Qty: 30 0RF dabigatran etexilate [Pradaxa] 150 mg Capsule 150 mg PO BID Qty: 60 0RF olanzapine 15 mg tablet 15 mg PO BEDTIME Qty: 30 0RF clonidine HCl 0.2 mg tablet 0.2 mg PO BID PRN (Reason: panic attack) Interventions: Schulter-Suicide Risk Severity Scale Last Done: 02/24/24 15:06 Print Language: Beninese
[2024-02-24 15:32] LABS: Amphetamine Screen Urine Not Detected (Not Detect); Barbiturates, Urine Not Detected (Not Detect); Benzodiazepines Screen Urine Not Detected (Not Detect); Buprenorphine Scr Not Detected (Not Detect); Cannabinoid Screen Urine Not Detected (Not Detect); Cocaine Screen Urine Not Detected (Not Detect); Fentanyl, urine Not Detected (Not Detect); Methadone Screen, Urine Not Detected (Not Detect); Opiate Screen Urine Not Detected (Not Detect); Oxycodone Screen Urine Not Detected (Not Detect); Phencyclidine Screen Urine Not Detected (Not Detect)
[2024-02-24 15:36] LABS: MANUAL DIFF FLAG NO
[2024-02-24 15:38] LABS: Basophils Absolute Auto 0.1 X10*3/uL (0.0-0.2); Basophils Percent Auto 0.8 % (0-2); Eosinophils Absolute Auto 0.2 X10*3/uL (0.0-0.4); Eosinophils Percent Auto 2.9 % (0-4); Hematocrit 40.2 % (37.0-47.0); Hemoglobin 14.1 g/dl (12.0-16.0); Imm Gran Abs Auto 0.03 X10*3/uL (0.00-0.03); Imm Gran Pct Auto 0.4 % (0.0-0.4); Lymphocytes Absolute Auto 1.6 X10*3/uL (1.2-4.9); Lymphocytes Percent Auto 22.5 % (20-40); Mean Corpuscular HGB Conc 35.1 g/dl (31.0-35.0); Mean Corpuscular Hemoglobin 31.5 pg (27.0-33.0); Mean Corpuscular Volume 89.7 fL (80.0-98.0); Mean Platelet Volume 9.4 fL (9.4-12.3); Monocytes Absolute Auto 0.6 X10*3/uL (0.1-1.2); Monocytes Percent Auto 8.8 % (2-11); Neutrophils Absolute Auto 4.6 x10*3/uL (2.0-8.3); Neutrophils Percent Auto 64.6 % (45-73); Platelet Count 215 X10*3/uL (160-400); Red Blood Count 4.48 X10*6/uL (4.20-5.50); Red Cell Distribution Width 14.1 % (11.0-16.0); White Blood Count 7.2 X10*3/uL (4.8-10.8)
[2024-02-24 15:58] LABS: Alanine Aminotransferase 11 U/L (0-31); Alkaline Phosphatase 73 U/L (39-117); Anion Gap 13 (12-20); Aspartate Amino Transferase 17 U/L (5-31); Bilirubin Total 0.3 mg/dL (0.0-1.0); Blood Urea Nitrogen 11 mg/dL (9-16); Calcium 9.8 mg/dL (8.4-10.2); Carbon Dioxide 25 mmol/L (22-29); Chloride 107 mmol/L (96-108); Creatinine Clr Calc Pharmacy 56.2; Estimated Glomerular Filt Rate > 60; Ethanol < 10 mg/dL; Glucose Random 111 mg/dL (60-115); Potassium 3.8 mmol/L (3.3-5.1); Sodium 141 mmol/L (135-145); Total Protein 7.3 g/dL (6.5-8.0)
[2024-02-24] MEDS: cloNIDine HCL 0.2 MG TABLET PO (16:26)
[2024-02-24] MEDS: cephALEXin 500 MG CAPSULE PO (18:34)
[2024-02-24 18:37] VITALS: BP 154/69; PULSE 86; RESP 14; TEMP 36.2; O2SAT 97
== END 2024-02-24 18:40 | disposition home or self-care (01) ==
PROVIDERS: Emergency Provider Student in an Organized Health Care Education/Training Program
DX: F32.9 Major depressive disorder, single episode, unspecified (principal); N39.0 Urinary tract infection, site not specified; F43.10 Post-traumatic stress disorder, unspecified; E11.9 Type 2 diabetes mellitus without complications; I10 Essential (primary) hypertension; E78.5 Hyperlipidemia, unspecified; J44.9 Chronic obstructive pulmonary disease, unspecified; F17.210 Nicotine dependence, cigarettes, uncomplicated; Z95.0 Presence of cardiac pacemaker; Z79.899 Other long term (current) drug therapy
CPT/HCPCS: 36415; 80053; 80307; 81001; 85025; 87086; 99285; S9485

== ENCOUNTER 2024-03-26 10:08 | Inpatient (IN) | payer MEDICARE, SELFPAY ==
--- NOTE | 2024-03-26 10:12 | ECG_ITS ---
Test Reason : QTC PROLONGATION Blood Pressure : / mmHG Vent. Rate : 065 BPM Atrial Rate : 065 BPM P-R Int : 000 ms QRS Dur : 170 ms QT Int : 534 ms P-R-T Axes : 000 -78 092 degrees QTc Int : 555 ms Ventricular-paced rhythm Abnormal ECG When compared with ECG of 26-DEC-2023 12:51, Vent. rate has decreased BY 4 BPM Referred By: Tanvi Villalba Electronically Signed By:ZACH CRAIG
[2024-03-26 10:14] VITALS: BP 112/78; PULSE 65; O2SAT 98
--- NOTE | 2024-03-26 10:14 | ED.PSYCH ---
HPI - Psych General Chief Complaint: Psychiatric Symptoms Stated Complaint: SI,FEELS SHE IS A HARM TO HERSELF PER EMS Time Seen by Provider: 03/26/24 10:09 Source: patient, EMS and old records reviewed Mode of arrival: EMS Limitations: other (poor historian) History of Present Illness ED Provider: JHONY HPI Narrative: 78 yo female with PMH of COPD, depression, HLD, DM, depression, PTSD, bipolar, on pradaxa but I don't see a hx other than TIAs here with depression and SI states she wants to hurt herself but has not. Hx of same in past. Denies any attempts. She is taking her medications as prescribed. MD complaint: suicidal ideation and feels depressed Onset (ago): day(s) (few) Duration: constant History of same: Yes Relieving factors: none Exacerbating factors: other Context: significant life stressor Associated psychiatric symptoms: depression and suicidal ideation Associated symptoms: denies other symptoms Treatments prior to arrival: none If self harm: admits thoughts of self harm Related Data Home Medications ?Medication ?Instructions ?Recorded ?Confirmed clonidine HCl 0.2 mg tablet 0.2 mg PO BID PRN panic attack 02/24/24 02/24/24 Previous Rx's ?Medication ?Instructions ?Recorded clonazepam 0.5 mg tablet 0.5 mg PO BID PRN anxiety attack 01/22/24 15 days #30 tabs dabigatran etexilate 150 mg 150 mg PO BID #60 caps 01/22/24 capsule (Pradaxa) lamotrigine 25 mg tablet 25 mg PO DIRECTED 30 days #90 01/22/24 tabs olanzapine 15 mg tablet 15 mg PO BEDTIME #30 tabs 01/22/24 cephalexin 500 mg capsule 500 mg PO TID UTI 7 days #21 caps 02/24/24 Allergies Allergy/AdvReac Type Severity Reaction Status Date / Time adhesive AdvReac Unknown Verified 03/26/24 10:29 aspirin AdvReac Unknown Verified 03/26/24 10:29 epinephrine AdvReac Unknown Verified 03/26/24 10:29 Review of Systems Review of Systems: Constitutional : No Fever, No Chills ENT/Mouth : No Ear Pain, No Nasal Congestion, No sore throat Eyes: No Eye Pain, No Swelling, No Redness Cardiovascular : No Chest Pain, No SOB Respiratory : No Cough, No Sputum, No Dyspnea Gastrointestinal : No Nausea, No Vomiting, No Diarrhea, No Hematochezia, No Melena Genitourinary : No Dysuria, No Urinary Frequency, No Hematuria Musculoskeletal : No Myalgias Skin : No Skin Lesions, No rash Neuro : No Weakness, No Numbness, No Paresthesias, No Dizziness, No Headache Psych : positive Anxiety, positive Depression, positive SI no HI Heme/Lymph: No Lymphadenopathy Endocrine : No Polyuria, No Polydipsia All other systems reviewed and are negative [facility] Past Medical History Attestation statement: The following information was validated with the patient. Source: old records reviewed Medical History Pacemaker FH: cholecystectomy Lung nodule Syncope Osteopenia Hyperparathyroidism Bipolar disorder C. difficile diarrhea Mitral valve prolapse Tobacco abuse TIA (transient ischemic attack) Prediabetes Hyperlipidemia Depression PTSD (post-traumatic stress disorder) Essential hypertension COPD (chronic obstructive pulmonary disease) Surgical History History of appendectomy History of parathyroidectomy History of colectomy Social History Social History Household Members: None Household Members Other:: lives with self Housing: Apartment Do you presently have visiting nurse or other home services: Yes ([facility] to start per pt) Alcohol intake: never Comment: 5 min safety checks. Patient Tobacco Use Status: Current everyday Tobacco user Tobacco use type: Cigarette Cigarette Packs Per Day: 3 Cigarettes Per Day: 60.0 Years Smoked: 20 e-Cigarette/Vaping Use: Never Used Second Hand Smoke Exposure: Yes (people that she smokes with) Substance Use Type: Prescription Drugs and Caffiene Advance Directives: Yes Advance Directives on File: Yes Advance Directives Date on File: 02/08/22 Do you have a plan to hurt others: No Plan service: No Sexual orientation: Straight/Heterosexual Physical Exam Vital Signs: Vital Signs: Last Vital Signs Temp 98.2 F 03/26/24 10:28 Pulse 65 03/26/24 10:28 Resp 18 03/26/24 10:28 BP 110/47 L 03/26/24 10:28 Pulse Ox 96 03/26/24 10:28 O2 Del Method Room Air 03/26/24 10:28 BMI result Body Mass Index 22.6 Appearance: Alert. Oriented X3. No acute distress. Disheveled crying Eyes: Pupils equal, round and reactive to light. ENT: Pharynx normal. Neck: Normal inspection. Neck supple. CVS: Normal heart rate and rhythm. Pulses normal. Respiratory: No respiratory distress. Breath sounds normal. Abdomen: Soft and nontender. Skin: Skin warm and dry. Normal skin color. Normal skin turgor. Extremities: No lower extremity edema. No calf ttp Neuro: Oriented X 3. No motor deficit. No sensory deficit. CN2-12 intact Course Course Course Narrative: inpatient bed search per CARE team Medical Decision Making Medical Decision Making MDM Narrative: 78 yo female with PMH of COPD, depression, HLD, DM, depression, PTSD here with c/o depression and SI hx of frequent visits in past at this time labs and UA ordered hx of UTI in past. Will refer to CARE team Differential Diagnosis Differential Diagnoses: The differential diagnosis associated with the presentation includes depression, SI, bipolar Admission/Observation Consideration of admission/observation: Escalation of care including admission/observation considered physician observation started at 1035am pending CARE team Consult Healthcare Provider Management of the patient was discussed with: Behavioral Health Provider Lab Data [facility] Lab Attestation statement: I reviewed the patient's lab results. + UTI ceftin started 03/26/24 11:21 03/26/24 11:21 Labs: Lab Results 03/26/24 03/26/24 Range/Units 11:20 11:21 WBC 5.6 (4.8-10.8) X10*3/uL RBC 3.86 L (4.20-5.50) X10*6/uL Hgb 12.3 (12.0-16.0) g/dl Hct 34.2 L (37.0-47.0) % MCV 88.6 (80.0-98.0) fL MCH 31.9 (27.0-33.0) pg MCHC 36.0 H (31.0-35.0) g/dl RDW 13.4 (11.0-16.0) % Plt Count 195 (160-400) X10*3/uL MPV 9.8 (9.4-12.3) fL Immature Gran % (Auto) 0.4 (0.0-0.4) % Neut % (Auto) 62.4 (45-73) % Lymph % (Auto) 28.5 (20-40) % [place] % (Auto) 6.1 (2-11) % Eos % (Auto) 2.1 (0-4) % Baso % (Auto) 0.5 (0-2) % Lymph # (Auto) 1.6 (1.2-4.9) X10*3/uL [place] # (Auto) 0.3 (0.1-1.2) X10*3/uL Eos # (Auto) 0.1 (0.0-0.4) X10*3/uL Baso # (Auto) 0.0 (0.0-0.2) X10*3/uL Abs Immat Gran (auto) 0.02 (0.00-0.03) X10*3/uL Absolute Neuts (auto) 3.5 (2.0-8.3) x10*3/uL Absolute Nucleated RBC 0.000 (0.0-0.012) X10*3/uL Nucleated RBC % (auto) 0.0 (0.0-0.2) /100WBC Sodium 133 L (135-145) mmol/L Potassium 3.7 (3.3-5.1) mmol/L Chloride 102 (96-108) mmol/L Carbon Dioxide 27 (22-29) mmol/L Anion Gap 8 L (12-20) BUN 12 (9-16) mg/dL Creatinine 0.68 (0.5-1.4) mg/dL Estim Creat Clear Calc 64.9 Estimated GFR > 60 Random Glucose 107 (60-115) mg/dL Calcium 8.8 D (8.4-10.2) mg/dL Magnesium 1.7 (1.6-2.6) mg/dL Total Bilirubin 0.4 (0.0-1.0) mg/dL Direct Bilirubin 0.1 (0.0-0.5) mg/dL AST 18 (5-31) U/L ALT 10 (0-31) U/L Alkaline Phosphatase 57 (39-117) U/L Total Protein 6.3 L (6.5-8.0) g/dL Albumin 3.5 (3.5-5.0) g/dL Lipase 23 (8-78) U/L Urine Color Yellow Urine Appearance Clear Urine pH 6.5 (5.0-9.0) Ur Specific [place] 1.010 (1.005-1.025) Urine Protein Negative (Neg-Trace) mg/dL Urine Glucose (UA) Negative (Negative) mg/dL Urine Ketones Negative (Negative) mg/dL Urine Blood Negative (Negative) Urine Nitrite Negative (Negative) Ur Leukocyte Esterase Large (3+) H (Negative) Urine RBC 0-2 (0-2) /HPF Urine WBC 11-20 H (0-5) /HPF Ur Squamous Epith Cells 3-5 (0-2) /HPF Urine Bacteria Trace (None Seen) Hyaline Casts 0-2 (0-2) /LPF Urine Opiates Screen Not Detected (Not Detect) Ur Buprenorphine Scrn Not Detected (Not Detect) ng/mL Ur Oxycodone Screen Not Detected (Not Detect) ng/mL Urine Methadone Screen Not Detected (Not Detect) ng/mL Urine Fentanyl Screen Not Detected (Not Detect) Ur Barbiturates Screen Not Detected (Not Detect) Ur Phencyclidine Scrn Not Detected (Not Detect) Ur Amphetamines Screen Not Detected (Not Detect) U Benzodiazepines Scrn Not Detected (Not Detect) Urine Cocaine Screen Not Detected (Not Detect) U Marijuana (THC) Screen Not Detected (Not Detect) Ethyl Alcohol < 10 mg/dL Independent Interpretation I performed an independent interpretation of an: EKG Interpretation: Rate: 65 Rhythm: V paced [place]: left wide QRS complex. ST T wave : no SARI inverted t waves aVL, V1, V2, no SARI qTC: 555 prior studies: no sig change from priors The study has been interpreted contemporaneously by me. . Independent Historian Clinical information obtained from an independent historian. History obtained from or confirmed by: EMS External Record Review External record reviewed: Inpatient record Discharge Plan Discharge Clinical Impression: Suicidal ideation, Acute UTI Patient Disposition: Still a Patient Prescriptions: No Action lamotrigine 25 mg Tablet 25 mg PO DIRECTED 30 Days Qty: 90 0RF Rx Instructions: 1 tablet in the am 2 tablets at bedtime clonazepam 0.5 mg tablet 0.5 mg PO BID PRN (Reason: anxiety attack) 15 Days Qty: 30 0RF dabigatran etexilate [Pradaxa] 150 mg Capsule 150 mg PO BID Qty: 60 0RF olanzapine 15 mg tablet 15 mg PO BEDTIME Qty: 30 0RF clonidine HCl 0.2 mg tablet 0.2 mg PO BID PRN (Reason: panic attack) cephalexin 500 mg capsule 500 mg PO TID 7 Days Qty: 21 0RF Print Language: Arabic
[2024-03-26 10:28] VITALS: BP 110/47; PULSE 65; RESP 18; TEMP 36.8; O2SAT 96; BMI 22.6
--- NOTE | 2024-03-26 11:10 | MHC.EDTECH ---
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
[2024-03-26 11:26] LABS: MANUAL DIFF FLAG NO
[2024-03-26 11:28] LABS: Basophils Percent Auto 0.5 % (0-2); Eosinophils Absolute Auto 0.1 X10*3/uL (0.0-0.4); Eosinophils Percent Auto 2.1 % (0-4); Hematocrit 34.2 % (37.0-47.0); Hemoglobin 12.3 g/dl (12.0-16.0); Imm Gran Abs Auto 0.02 X10*3/uL (0.00-0.03); Imm Gran Pct Auto 0.4 % (0.0-0.4); Lymphocytes Absolute Auto 1.6 X10*3/uL (1.2-4.9); Lymphocytes Percent Auto 28.5 % (20-40); Mean Corpuscular Hemoglobin 31.9 pg (27.0-33.0); Mean Corpuscular Volume 88.6 fL (80.0-98.0); Mean Platelet Volume 9.8 fL (9.4-12.3); Monocytes Absolute Auto 0.3 X10*3/uL (0.1-1.2); Monocytes Percent Auto 6.1 % (2-11); Neutrophils Absolute Auto 3.5 x10*3/uL (2.0-8.3); Neutrophils Percent Auto 62.4 % (45-73); Platelet Count 195 X10*3/uL (160-400); Red Blood Count 3.86 X10*6/uL (4.20-5.50); Red Cell Distribution Width 13.4 % (11.0-16.0); White Blood Count 5.6 X10*3/uL (4.8-10.8)
[2024-03-26 11:28] LABS: Appearance Urine Clear; Color Urine Yellow; Glucose Urine UA Negative (Negative); Leukocyte Esterase Urine Large (3+) (Negative); Nitrite Urine Negative (Negative); PH 6.5 (5.0-9.0); UMIC TRIGGER UACC YES; Urine Blood Negative (Negative); Urine Ketones Negative (Negative); Urine Protein Negative (Neg-Trace)
--- NOTE | 2024-03-26 11:34 | HO.SUDE ---
Pt seen by [facility] in the community and found IPLOC.
[2024-03-26 11:37] LABS: Bacteria Urine Trace (None Seen); Hyaline Casts Urine 0-2 /LPF (0-2); RBC Urine 0-2 /HPF (0-2); UACC Culture Trigger YES
[2024-03-26 11:39] LABS: Amphetamine Screen Urine Not Detected (Not Detect); Barbiturates, Urine Not Detected (Not Detect); Benzodiazepines Screen Urine Not Detected (Not Detect); Buprenorphine Scr Not Detected (Not Detect); Cannabinoid Screen Urine Not Detected (Not Detect); Cocaine Screen Urine Not Detected (Not Detect); Fentanyl, urine Not Detected (Not Detect); Methadone Screen, Urine Not Detected (Not Detect); Opiate Screen Urine Not Detected (Not Detect); Oxycodone Screen Urine Not Detected (Not Detect); Phencyclidine Screen Urine Not Detected (Not Detect)
[2024-03-26 11:48] LABS: Alanine Aminotransferase 10 U/L (0-31); Albumin Level 3.5 g/dL (3.5-5.0); Alkaline Phosphatase 57 U/L (39-117); Anion Gap 8 (12-20); Aspartate Amino Transferase 18 U/L (5-31); Bilirubin Direct 0.1 mg/dL (0.0-0.5); Bilirubin Total 0.4 mg/dL (0.0-1.0); Blood Urea Nitrogen 12 mg/dL (9-16); Calcium 8.8 mg/dL (8.4-10.2); Carbon Dioxide 27 mmol/L (22-29); Chloride 102 mmol/L (96-108); Creatinine Clr Calc Pharmacy 64.9; Estimated Glomerular Filt Rate > 60; Glucose Random 107 mg/dL (60-115); Lipase 23 U/L (8-78); Magnesium 1.7 mg/dL (1.6-2.6); Potassium 3.7 mmol/L (3.3-5.1); Sodium 133 mmol/L (135-145); Total Protein 6.3 g/dL (6.5-8.0)
[2024-03-26 11:51] LABS: Ethanol < 10 mg/dL
[2024-03-26 12:00] LABS: Acetaminophen LAB < 3 mcg/mL (<30); Salicylate < 5.0 mg/dL (15-30)
[2024-03-26] MEDS: cefuroxime axetiL 250 MG TABLET PO ×2 (12:04→20:18)
[2024-03-26 14:00] VITALS: BP 117/51; PULSE 63; RESP 16; TEMP 36.8; O2SAT 96
[2024-03-26 18:48] VITALS: BP 110/57; PULSE 72; RESP 20; TEMP 36.7; O2SAT 93
--- NOTE | 2024-03-26 18:50 | PC.NURSE ---
report received from Vannessa RICHARDSON, assume care of pt at this time
--- NOTE | 2024-03-26 19:44 | PC.NURSE ---
pt walked the hallway by herself, pt is steady on her feet, no assistance needed
--- NOTE | 2024-03-26 19:57 | MHC.EDTECH ---
Patient came to pod at 1945 pm ,Patient belongings are locked up in pod locker # 2 .
[2024-03-26] MEDS: OLANZapine 7.5 MG TABLET 15 MG PO (22:54)
[2024-03-26] MEDS: clonazePAM 0.5 MG TABLET PO (22:55)
[2024-03-26] MEDS: Dabigatran Etexilate Mesylate 150 MG CAPSULE PO (22:55)
[2024-03-27 06:02] VITALS: BP 129/78; PULSE 73; RESP 16; TEMP 36.6; O2SAT 97
--- NOTE | 2024-03-27 06:40 | PC.NURSE ---
Patient slept through the night, meds and meals compliant, no distress observed/reported, disosition per care team is section 12 inpatient bed [facility], WILL CONTINUE TO MONITOR
--- NOTE | 2024-03-27 08:15 | PC.NURSE ---
Assumed care of patient at 0645, patient appears to be in no apparent distress this am, calm and cooperative, not participating in conversation with staff but remaining courteous and polite. Pt aware of plan of care for inpatient bedsearch
[2024-03-27] MEDS: cefuroxime axetiL 250 MG TABLET PO ×2 (09:11→20:43)
[2024-03-27] MEDS: lamoTRIgine 25 MG TABLET PO (09:11)
--- NOTE | 2024-03-27 09:21 | PHA.MEDREC ---
Addendum entered by Kyle Collier 03/27/24 09:45: Reviewed by [facility] Original Note: Pharmacy Consult ? Medication Reconciliation Pharmacy has reviewed the medication reconciliation done by nurse. Spoke to patient to confirm med list.
[2024-03-27] MEDS: Dabigatran Etexilate Mesylate 150 MG CAPSULE PO ×2 (10:05→20:43)
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
[2024-03-27 19:06] VITALS: BP 134/80; PULSE 84; RESP 16; TEMP 36.6; O2SAT 97; BMI 22.6
[2024-03-27 20:00] VITALS: BP 106/55; PULSE 77; RESP 16; TEMP 36.4; O2SAT 95
[2024-03-27] MEDS: OLANZapine 7.5 MG TABLET 15 MG PO (20:42)
[2024-03-27] MEDS: lamoTRIgine 25 MG TABLET 50 MG PO (21:07)
[2024-03-28] MEDS: Acetaminophen 325 MG TABLET 650 MG PO (01:37)
[2024-03-28 08:26] VITALS: BP 141/66; PULSE 77; TEMP 36.4; O2SAT 96
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
[2024-03-28] MEDS: cefuroxime axetiL 250 MG TABLET PO ×2 (09:16→21:19)
[2024-03-28] MEDS: Dabigatran Etexilate Mesylate 150 MG CAPSULE PO ×2 (09:16→21:19)
[2024-03-28] MEDS: lamoTRIgine 25 MG TABLET PO (09:16)
[2024-03-28 09:46] LABS: Estimated Average Glucose 117 mg/dL; Hemoglobin A1c % 5.7 % (<6.0); Total Hemoglobin (HGBA1C) 3668.3289 umol/L
[2024-03-28 09:58] LABS: Alanine Aminotransferase 12 U/L (0-31); Albumin Level 4.2 g/dL (3.5-5.0); Alkaline Phosphatase 68 U/L (39-117); Anion Gap 14 (12-20); Aspartate Amino Transferase 17 U/L (5-31); Bilirubin Total 0.4 mg/dL (0.0-1.0); Blood Urea Nitrogen 16 mg/dL (9-16); Calcium 9.7 mg/dL (8.4-10.2); Carbon Dioxide 29 mmol/L (22-29); Chloride 103 mmol/L (96-108); Cholesterol 233 mg/dL (<200); Creatinine Clr Calc Pharmacy 52.4; Estimated Glomerular Filt Rate > 60; Glucose Fasting 107 mg/dL (60-99); HDL Cholesterol 55 mg/dL (>40); LDL Cholesterol Calculated 158 mg/dL (<100); Sodium 141 mmol/L (135-145); Total Protein 7.6 g/dL (6.5-8.0); Triglycerides 104 mg/dL (<150)
[2024-03-28 10:11] LABS: TSH reflex Free T4 0.91 uIU/mL (0.32-4.0)
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
[2024-03-28 20:00] VITALS: BP 154/72; PULSE 98; RESP 16; TEMP 36.2; O2SAT 99
[2024-03-28] MEDS: OLANZapine 7.5 MG TABLET 15 MG PO (21:19)
[2024-03-28] MEDS: lamoTRIgine 25 MG TABLET 50 MG PO (21:19)
[2024-03-29] MEDS: clonazePAM 0.5 MG TABLET PO (01:07)
[2024-03-29] MEDS: traZODone HCL 50 MG TABLET PO ×2 (01:07→20:39)
--- NOTE | 2024-03-29 02:01 | PC.NURSE ---
Patient medicated with Clonazepam and Trazadone at 0107 for complaints of anxiety and insomnia. will continue to monitor.
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
[2024-03-29] MEDS: lamoTRIgine 25 MG TABLET PO (09:33)
[2024-03-29] MEDS: cefuroxime axetiL 250 MG TABLET PO ×2 (09:34→20:38)
[2024-03-29] MEDS: Dabigatran Etexilate Mesylate 150 MG CAPSULE PO ×2 (09:34→20:38)
[2024-03-29 09:42] VITALS: BP 126/60; PULSE 73; TEMP 36.3; O2SAT 95
[2024-03-29 20:00] VITALS: BP 164/78; PULSE 88; RESP 16; TEMP 36.1; O2SAT 98
[2024-03-29] MEDS: OLANZapine 7.5 MG TABLET 15 MG PO (20:37)
[2024-03-29] MEDS: lamoTRIgine 25 MG TABLET 50 MG PO (20:38)
--- NOTE | 2024-03-30 01:38 | PC.NURSE ---
Patient is listed as a low pneumonia risk. Since the patient is mobile, this advertising copywriter did not ambulate or perform ROM on the patient.
[2024-03-30 07:55] VITALS: BP 145/68; PULSE 73; TEMP 36.4; O2SAT 94
[2024-03-30] MEDS: cefuroxime axetiL 250 MG TABLET PO ×2 (08:37→21:05)
[2024-03-30] MEDS: Dabigatran Etexilate Mesylate 150 MG CAPSULE PO ×2 (08:37→21:05)
[2024-03-30] MEDS: lamoTRIgine 25 MG TABLET PO (08:37)
[2024-03-30 10:34] VITALS: BP 152/84; O2SAT 94
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
--- NOTE | 2024-03-30 15:00 | MHC.CLN ---
RE: CONSULT HT 66 WT 63.6KG, 140# IBW 130#+/-10% BMI 22.6 WNL PT IS 108% IBW RANGE INDICATES ADEQUATE WT FOR HT CURRENT WT 63.6KG (03/27/24) PREVIOUS WT 63KG (11/05/23) PREVIOUS X1 YR 66.8KG (04/24/23) PT WITH ONLY 5% NONSIGNIFICANT WT LOSS X1 YEAR REVIEWED LABS-UNREMARKABLE REGULAR DIET CONTINUE CURRENT CARE PLAN PT IS LOW NUTRITION RISK
[2024-03-30 19:46] VITALS: BP 142/88; PULSE 95; RESP 16; TEMP 36.1; O2SAT 94
[2024-03-30] MEDS: lamoTRIgine 25 MG TABLET 50 MG PO (21:05)
[2024-03-30] MEDS: OLANZapine 7.5 MG TABLET 15 MG PO (21:05)
[2024-03-30] MEDS: traZODone HCL 25 MG HALFTAB 75 MG PO (21:05)
[2024-03-30] MEDS: Magnesium Hydrox/Alum Hydrox 30 ML ORAL.SUSP PO (21:50)
[2024-03-31 00:48] VITALS: BP 136/75
[2024-03-31] MEDS: cloNIDine HCL 0.2 MG TABLET PO (00:48)
[2024-03-31 09:00] VITALS: BP 133/66; PULSE 70; TEMP 35.7; O2SAT 95
[2024-03-31] MEDS: lamoTRIgine 25 MG TABLET PO (09:00)
[2024-03-31] MEDS: Dabigatran Etexilate Mesylate 150 MG CAPSULE PO ×2 (09:00→20:49)
[2024-03-31] MEDS: cefuroxime axetiL 250 MG TABLET PO ×2 (09:00→20:52)
[2024-03-31] MEDS: Magnesium Hydrox/Alum Hydrox 30 ML ORAL.SUSP PO (14:51)
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
[2024-03-31 20:00] VITALS: BP 135/70; PULSE 89; RESP 16; TEMP 36.5; O2SAT 95
[2024-03-31] MEDS: OLANZapine 7.5 MG TABLET 15 MG PO (20:49)
[2024-03-31] MEDS: traZODone HCL 25 MG HALFTAB 75 MG PO (20:50)
[2024-03-31] MEDS: lamoTRIgine 25 MG TABLET 50 MG PO (20:51)
[2024-04-01 08:00] VITALS: BP 134/63; PULSE 68; TEMP 35.9; O2SAT 96
[2024-04-01] MEDS: lamoTRIgine 25 MG TABLET PO (08:26)
[2024-04-01] MEDS: cefuroxime axetiL 250 MG TABLET PO ×2 (08:26→21:33)
[2024-04-01] MEDS: Dabigatran Etexilate Mesylate 150 MG CAPSULE PO ×2 (08:26→21:32)
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
[2024-04-01 20:00] VITALS: BP 143/77; PULSE 82; TEMP 36.2; O2SAT 96
[2024-04-01] MEDS: OLANZapine 7.5 MG TABLET 15 MG PO (21:32)
[2024-04-01] MEDS: lamoTRIgine 25 MG TABLET 50 MG PO (21:32)
[2024-04-01] MEDS: traZODone HCL 25 MG HALFTAB 75 MG PO (21:33)
[2024-04-01] MEDS: clonazePAM 0.5 MG TABLET PO (21:33)
[2024-04-01] MEDS: traZODone HCL 50 MG TABLET PO (23:52)
[2024-04-02 08:24] VITALS: BP 135/69; PULSE 81; RESP 16; TEMP 36.3; O2SAT 94
[2024-04-02] MEDS: Dabigatran Etexilate Mesylate 150 MG CAPSULE PO (08:45)
[2024-04-02] MEDS: lamoTRIgine 25 MG TABLET PO (08:45)
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
== END 2024-04-02 11:29 | disposition home or self-care (01) | DRG 885 ==
LOC: HO.ED 19:38 → HO.PM5 03-27 15:15
PROVIDERS: Admitting Provider Psychiatry & Neurology Psychiatry; Emergency Provider Emergency Medicine; Visit Provider Psychiatry & Neurology Psychiatry
DX: F31.63 Bipolar disorder, current episode mixed, severe, without psychotic features (principal); R45.851 Suicidal ideations; F17.210 Nicotine dependence, cigarettes, uncomplicated; F43.10 Post-traumatic stress disorder, unspecified; Z63.4 Disappearance and death of family member; J44.9 Chronic obstructive pulmonary disease, unspecified; Z71.6 Tobacco abuse counseling; Z91.148 Patient's other noncompliance with medication regimen for other reason; Z62.819 Personal history of unspecified abuse in childhood; Z79.899 Other long term (current) drug therapy
CPT/HCPCS: 36415; 80048; 80053; 80061; 80076; 80143; 80179; 80307; 81001; 83036; 83690; 83735; 84443; 85025; 87086; 87088; 87186; 93005; 99285; S9485

== ENCOUNTER → 2024-03-27 14:55 | Outpatient (BNV) | payer MEDICARE, SELFPAY | PROVIDERS: Admitting Provider Psychiatry & Neurology Psychiatry; Emergency Provider Emergency Medicine; Visit Provider Psychiatry & Neurology Psychiatry | DX: F31.4 Bipolar disorder, current episode depressed, severe, without psychotic features (principal); F43.11 Post-traumatic stress disorder, acute; J44.9 Chronic obstructive pulmonary disease, unspecified | CPT/HCPCS: 90792; 99231; 99232; 99238 ==

== ENCOUNTER 2024-04-13 23:27 | Inpatient (IN) | payer MEDICARE, SELFPAY ==
--- NOTE | 2024-04-13 | ECG_ITS ---
Test Reason : OVERDOSE Blood Pressure : / mmHG Vent. Rate : 077 BPM Atrial Rate : 077 BPM P-R Int : 186 ms QRS Dur : 136 ms QT Int : 446 ms P-R-T Axes : -04 055 -31 degrees QTc Int : 504 ms Normal sinus rhythm with sinus arrhythmia Left bundle branch block Abnormal ECG When compared with ECG of 26-MAR-2024 10:47, Sinus rhythm has replaced Electronic ventricular pacemaker Referred By: Isadora Lui Electronically Signed By:CEDRIC ZHANG MD
--- NOTE | ~2024-04-13 | XR_ITS ---
EXAMINATION: XR SHOULDER, LEFT CLINICAL INFORMATION: Status post fall . Left shoulder pain. COMPARISON: None available. TECHNIQUE: AP external rotation, Grashey, scapular Y, and axillary views of the left shoulder. FINDINGS: Acromioclavicular and glenohumeral joint alignments are maintained. There is no evidence of acute fracture or dislocation. Mild changes of arthropathy are noted at acromioclavicular articulation. No significant degenerative or arthritic changes are noted at the glenohumeral articulation. Visualized left hemithorax is grossly unremarkable. Left-sided bipolar pacemaker is noted. XR/XR shoulder LT min 2V IMPRESSION: No evidence of acute fracture or dislocation in the left shoulder. Mild changes of arthropathy at the left acromioclavicular articulation. Electronically signed by: Josi Vizcarra MD 04/23/2024 04:57 PM EDT
--- NOTE | ~2024-04-13 | CT_ITS ---
EXAMINATION: CT HEAD WITHOUT CONTRAST CLINICAL INFORMATION: Fall. COMPARISON: CT angiography head and neck 11/27/2023. TECHNIQUE: Contiguous axial imaging was performed from the skull base to vertex without intravenous administration of contrast. This CT examination was performed using dose optimization techniques as appropriate, variously including the following: *Automated exposure control *Adjustment of mA and/or kV according to patient size (this includes techniques or standardized protocols for targeted exams where dose is matched to indication/reason for exam; i.e. extremities or head) *Use of iterative reconstruction technique DLP: 639 mGy-cm FINDINGS: No intracranial hemorrhage, tumors or acute infarcts identified. Mild diffuse symmetric prominence of ventricles and sulci. Mild scattered subcortical and periventricular white matter patchy hypodensities. Dense segmental calcific atherosclerosis of the cavernous portions of the internal carotid arteries. Focal calcific plaques of the intradural segments of the vertebral arteries. Normal appearance of the orbits and globes. No extra cranial soft tissue inflammatory changes. No significant opacification of the visualized paranasal sinuses, mastoid air cells and middle ear cavities. CT/CT head/brain wo IV con IMPRESSION: 1. No acute intracranial abnormalities. 2. Mild chronic microangiopathic ischemic changes of the brain. 3. Intracranial atherosclerosis. Electronically signed by: Dean Ambrosio MD 04/17/2024 06:53 AM EDT
[2024-04-13 23:41] VITALS: BP 157/70; BP 163/59; PULSE 76; PULSE 78; RESP 19; TEMP 36.7; O2SAT 94; O2SAT 97; BMI 24.2
--- NOTE | 2024-04-13 23:48 | PC.NURSE ---
call to poison control, recommeds ekg every 2 hours 3x looking for prolonged qtc, keep mag>3 and potassium >4, labs cmp cbc mag ethanol salycilate and tylenol. benzos as needed for serotonin sx. MD aware. if +bowel sounds to give dose of charcoal.
[2024-04-14] VITALS (7 sets, daily range): BP systolic 130–160; BP diastolic 53–83; PULSE 70–88; RESP 12–19; TEMP 36.6–36.9; O2SAT 88–95; BMI 21.4
[2024-04-14] MEDS: Prochlorperazine Edisylate 10 MG/2 ML VIAL IVPUSH (00:02)
[2024-04-14] MEDS: Activated charcoaL 50 GM/240 ML ORAL.SUSP PO (00:02)
--- NOTE | 2024-04-14 00:10 | ED_ITS ---
HPI - Overdose General Chief Complaint: Overdose Stated Complaint: SI Time Seen by Provider: 04/13/24 23:44 Source: patient and EMS Mode of arrival: EMS Limitations: no limitations History of Present Illness ED Provider: Dr. Isadora Lui HPI Narrative: Patient comes to the emergency room after a suicide attempt. Patient took 14 tablets of trazodone which are prescribed to her. Patient states that she could not find the crisis number and therefore she decided to overdose with trazodone Related Data Previous Rx's ?Medication ?Instructions ?Recorded clonazepam 0.5 mg tablet 0.5 mg PO BID PRN anxiety attack 01/22/24 15 days #30 tabs clonidine HCl 0.2 mg tablet 0.2 mg PO BID PRN panic attack 30 04/02/24 days #60 tabs dabigatran etexilate 150 mg 150 mg PO BID 30 days #60 caps 04/02/24 capsule (Pradaxa) lamotrigine 25 mg tablet 25 mg PO DIRECTED 30 days #90 04/02/24 tabs olanzapine 15 mg tablet 15 mg PO BEDTIME 30 days #30 tabs 04/02/24 trazodone 50 mg tablet See Rx Instructions .Route 04/02/24 .COMPLEX PRN Insomnia 30 days #45 tabs Allergies Allergy/AdvReac Type Severity Reaction Status Date / Time adhesive AdvReac Unknown Verified 04/13/24 23:47 aspirin AdvReac Unknown Verified 04/13/24 23:47 epinephrine AdvReac Unknown Verified 04/13/24 23:47 Review of Systems 2 Review of Systems: Constitutional : No Weight loss, No Fever, No Chills, No Night Sweats, No Fatigue, No Malaise ENT/Mouth : No Hearing loss, No Ear Pain, No Nasal Congestion, No Sinus Pain, No Hoarseness, No sore throat, No Rhinorrhea, No Swallowing Difficulty Eyes: No Eye Pain, No Swelling, No Redness, No Foreign Body, No Discharge, No Vision Changes Cardiovascular : No Chest Pain, No SOB, No Dyspnea on Exertion, No Orthopnea, No Edema, No Palpitations Respiratory : No Cough, No Sputum, No Wheezing, No Smoke Exposure, No Dyspnea Gastrointestinal : No Nausea, No Vomiting, No Diarrhea, No Constipation, No abdominal Pain, No Hematochezia, No Melena Genitourinary : no irregular bleeding, No Dysuria, No Urinary Frequency, No Hematuria, No Urinary Incontinence, No Urgency, No Flank Pain, No Urinary Flow Changes, No Hesitancy Musculoskeletal : No joint pain, No Myalgias, No Joint Swelling Skin : No Skin Lesions, No rash Neuro : No Weakness, No Numbness, No Paresthesias, No Loss of Consciousness, No Dizziness, No Headache Psych : Complaining of anxiety, depression and suicide attempt Heme/Lymph: No Bruising, No Bleeding,No Lymphadenopathy Endocrine : No Polyuria, No Polydipsia, No Temperature Intolerance [facility] Past Medical History Medical History Bipolar 1 disorder Pacemaker FH: cholecystectomy Lung nodule Syncope Osteopenia Hyperparathyroidism C. difficile diarrhea Mitral valve prolapse Tobacco abuse TIA (transient ischemic attack) Prediabetes Hyperlipidemia Depression PTSD (post-traumatic stress disorder) Essential hypertension COPD (chronic obstructive pulmonary disease) Surgical History (Updated 04/10/24 @ 00:02 by Puneet Goodwin) History of appendectomy History of parathyroidectomy History of colectomy Social History Social History Household Members: None Household Members Other:: lives with self Housing: Apartment Do you presently have visiting nurse or other home services: No Alcohol intake: never Comment: 5 min safety checks. Patient Tobacco Use Status: Current everyday Tobacco user Tobacco use type: Cigarette Cigarette Packs Per Day: 4 Cigarettes Per Day: 80.0 Years Smoked: 20 Smoked in Last 30 Days: Yes e-Cigarette/Vaping Use: Never Used Second Hand Smoke Exposure: Yes Use of substances other than those prescribed or required for medical reasons: No Substance Use Type: Prescription Drugs and Caffiene Advance Directives: Yes Advance Directives on File: Yes Advance Directives Date on File: 02/08/22 service: No Sexual orientation: Straight/Heterosexual Physical Exam 2 Vital Signs: Vital Signs: Last Vital Signs Temp 98.1 F 04/13/24 23:41 Pulse 78 04/13/24 23:41 Resp 19 04/13/24 23:41 BP 163/59 H 04/13/24 23:41 Pulse Ox 97 04/13/24 23:41 O2 Del Method Room Air 04/13/24 23:41 BMI result Body Mass Index 24.2 Const: Other: Appearance: Alert. Oriented X3. No acute distress. Eyes: Pupils equal, round and reactive to light. ENT: Pharynx normal. Neck: Normal inspection. Neck supple. No lymph nodes noted. No crepitus CVS: Normal heart rate and rhythm. Pulses normal. Normal S1 and S2 Respiratory: No respiratory distress. Breath sounds normal. No Wheezing. No rales Abdomen: Soft and nontender. No rigidity. No distention. Skin: Skin warm and dry. Normal skin color. Normal skin turgor. Extremities: No lower extremity edema. No Lacerations. No Rash Neuro: Oriented X 3. No motor deficit. No sensory deficit. Moving all extremities. No slurred speech. CN 2 through 12 grossly intact Psych: calm, cooperative, normal affect Course Course Course Narrative: Poison control was called, recommendations: Activated charcoal, EKGs every 2 hours x3, keep potassium above 4.0, magnesium of 3.0. Benzodiazepines as needed for serotonin syndrome. -patient was given IV magnesium and p.o. potassium. -my interpretation of EKG 1. At 23:45: Normal sinus rhythm, heart rate 77, left bundle branch block, T-wave inversions in lead II, III, AVF, QTC 504 -EKG number 2 do at 01:45 and 3rd ekg at 03:45 -to fall, patient awake, alert and oriented x3, vitals are stable. Patient feeling nauseous, otherwise asymptomatic. -patient is on a one-to-one -patient is on a Section 12 Medications Administered Discontinued Medications Generic Name Dose Route Start Last Admin Trade Name Freq PRN Reason Stop Dose Admin Charcoal 50 gm 04/13/24 23:56 04/14/24 00:02 Activated Charcoal 50 Gm/240 Ml Oral.Susp PO 04/13/24 23:57 50 gm ONCE ONE Administration Magnesium Sulfate/Dextrose 1 gm in 100 mls @ 100 mls/hr 04/14/24 00:47 04/14/24 00:58 Magnesium Sulfate/D5w IV 04/14/24 01:46 100 mls/hr ONCE ONE Administration Potassium Chloride 40 meq 04/14/24 00:47 04/14/24 00:58 Potassium Chloride Er 20 Meq Tab.Er.Prt PO 04/14/24 00:48 40 meq ONCE ONE Administration Prochlorperazine Edisylate 10 mg 04/13/24 23:56 04/14/24 00:02 Prochlorperazine Edisylate 10 Mg/2 Ml Vial IVPUSH 04/13/24 23:57 10 mg ONCE ONE Administration Medical Decision Making Medical Decision Making [facility] Narrative: -my interpretation of EKG 1. At 23:45: Normal sinus rhythm, heart rate 77, left bundle branch block, T-wave inversions in lead II, III, AVF, QTC 504 My interpretation of labs: Hematology normal, chemistry within normal limits, potassium 3.8, magnesium 2.0 -per can control, we will try to keep him potassium level of 4.0 and magnesium 3.0. Patient's vitals stable, at this time, 01:00, no signs of serotonin syndrome Since my interpretation of EKG 2: Normal sinus rhythm, heart rate 80, left bundle branch block, QTC 520 -at 03:00, we will repeat patient's labs, poison control okay with the magnesium being 2.0 rather than 3.0, however, they are adamant that the potassium level should be at least 4 -345, the 3rd EKG to be repeated -patient remains on a Section 12 -care team consult pending -sign-out given to my colleague Dr. Nelson Differential Diagnosis Differential Diagnoses: The differential diagnosis associated with the presentation includes (Anxiety, depression, suicide attempt, bipolar disorder) Admission/Observation Consideration of admission/observation: Escalation of care including admission/observation considered (Patient is on a Section 12, care team consult pending) Lab Data [facility] Lab Attestation statement: I reviewed the patient's lab results. 04/14/24 00:07 04/14/24 00:07 Labs: Lab Results 04/14/24 Range/Units 00:07 WBC 6.9 (4.8-10.8) X10*3/uL RBC 4.42 (4.20-5.50) X10*6/uL Hgb 14.0 (12.0-16.0) g/dl Hct 39.2 (37.0-47.0) % MCV 88.7 (80.0-98.0) fL MCH 31.7 (27.0-33.0) pg MCHC 35.7 H (31.0-35.0) g/dl RDW 13.7 (11.0-16.0) % Plt Count 237 (160-400) X10*3/uL MPV 9.7 (9.4-12.3) fL Immature Gran % (Auto) 0.3 (0.0-0.4) % Neut % (Auto) 58.0 (45-73) % Lymph % (Auto) 29.6 (20-40) % [place] % (Auto) 7.4 (2-11) % Eos % (Auto) 3.8 (0-4) % Baso % (Auto) 0.9 (0-2) % Lymph # (Auto) 2.0 (1.2-4.9) X10*3/uL [place] # (Auto) 0.5 (0.1-1.2) X10*3/uL Eos # (Auto) 0.3 (0.0-0.4) X10*3/uL Baso # (Auto) 0.1 (0.0-0.2) X10*3/uL Abs Immat Gran (auto) 0.02 (0.00-0.03) X10*3/uL Absolute Neuts (auto) 4.0 (2.0-8.3) x10*3/uL Absolute Nucleated RBC 0.000 (0.0-0.012) X10*3/uL Nucleated RBC % (auto) 0.0 (0.0-0.2) /100WBC Sodium 138 (135-145) mmol/L Potassium 3.8 D (3.3-5.1) mmol/L Chloride 107 (96-108) mmol/L Carbon Dioxide 22 (22-29) mmol/L Anion Gap 13 (12-20) BUN 11 (9-16) mg/dL Creatinine 0.78 (0.5-1.4) mg/dL Estim Creat Clear Calc 56.5 Estimated GFR > 60 Random Glucose 126 H (60-115) mg/dL Calcium 9.5 (8.4-10.2) mg/dL Magnesium 2.0 (1.6-2.6) mg/dL Total Bilirubin 0.2 (0.0-1.0) mg/dL AST 16 (5-31) U/L ALT 12 (0-31) U/L Alkaline Phosphatase 76 (39-117) U/L Troponin I High Sens 13.5 (<3.5-17.0) ng/L Total Protein 7.1 (6.5-8.0) g/dL Albumin 3.9 (3.5-5.0) g/dL Salicylates < 5.0 L (15-30) mg/dL Acetaminophen < 3 (<30) mcg/mL Ethyl Alcohol < 10 mg/dL Independent Interpretation I performed an independent interpretation of an: EKG Critical Care Time Critical Care Time Critical Care Time: Yes Total Critical Care Time: 60 Attestation: I have personally provided critical care time. Time includes review of lab data, radiology results, discussion with consultants, and monitoring for potential decompensation. Intervention performed as documented. Discharge Plan Discharge Clinical Impression: Suicide attempt, Intentional overdose of drug in tablet form Patient Disposition: Still a Patient Prescriptions: No Action clonazepam 0.5 mg tablet 0.5 mg PO BID PRN (Reason: anxiety attack) 15 Days Qty: 30 0RF Rx Instructions: [facility] for 30d supply trazodone 50 mg Tablet See Rx Instructions .ROUTE .COMPLEX PRN (Reason: Insomnia) 30 Days Qty: 45 0RF Rx Instructions: take 1 or 1.5 tabs at bedtime as needed for insomnia lamotrigine 25 mg Tablet 25 mg PO DIRECTED 30 Days Qty: 90 0RF Rx Instructions: 1 tablet in the am 2 tablets at bedtime clonidine HCl 0.2 mg tablet 0.2 mg PO BID PRN (Reason: panic attack) 30 Days Qty: 60 0RF olanzapine 15 mg tablet 15 mg PO BEDTIME 30 Days Qty: 30 0RF dabigatran etexilate [Pradaxa] 150 mg Capsule 150 mg PO BID 30 Days Qty: 60 0RF Print Language: Malawian
--- NOTE | 2024-04-14 00:11 | MHC.EDTECH ---
Patient BIBA for overdose. patient to bed 19. patient changed over into hospital for special care gown and pants. patient jewelry and clothes secured in C-1 locker. patient belongings list will be documented. Patient EKG completed and patient placed on monitoring specialist
[2024-04-14 00:14] LABS: MANUAL DIFF FLAG NO
[2024-04-14 00:15] LABS: Basophils Absolute Auto 0.1 X10*3/uL (0.0-0.2); Basophils Percent Auto 0.9 % (0-2); Eosinophils Absolute Auto 0.3 X10*3/uL (0.0-0.4); Eosinophils Percent Auto 3.8 % (0-4); Hematocrit 39.2 % (37.0-47.0); Imm Gran Abs Auto 0.02 X10*3/uL (0.00-0.03); Imm Gran Pct Auto 0.3 % (0.0-0.4); Lymphocytes Percent Auto 29.6 % (20-40); Mean Corpuscular HGB Conc 35.7 g/dl (31.0-35.0); Mean Corpuscular Hemoglobin 31.7 pg (27.0-33.0); Mean Corpuscular Volume 88.7 fL (80.0-98.0); Mean Platelet Volume 9.7 fL (9.4-12.3); Monocytes Absolute Auto 0.5 X10*3/uL (0.1-1.2); Monocytes Percent Auto 7.4 % (2-11); Platelet Count 237 X10*3/uL (160-400); Red Blood Count 4.42 X10*6/uL (4.20-5.50); Red Cell Distribution Width 13.7 % (11.0-16.0); White Blood Count 6.9 X10*3/uL (4.8-10.8)
[2024-04-14 00:33] LABS: Alanine Aminotransferase 12 U/L (0-31); Albumin Level 3.9 g/dL (3.5-5.0); Alkaline Phosphatase 76 U/L (39-117); Anion Gap 13 (12-20); Aspartate Amino Transferase 16 U/L (5-31); Bilirubin Total 0.2 mg/dL (0.0-1.0); Blood Urea Nitrogen 11 mg/dL (9-16); Calcium 9.5 mg/dL (8.4-10.2); Carbon Dioxide 22 mmol/L (22-29); Chloride 107 mmol/L (96-108); Creatinine Clr Calc Pharmacy 56.5; Estimated Glomerular Filt Rate > 60; Ethanol < 10 mg/dL; Glucose Random 126 mg/dL (60-115); Potassium 3.8 mmol/L (3.3-5.1); Sodium 138 mmol/L (135-145); Total Protein 7.1 g/dL (6.5-8.0)
[2024-04-14 00:34] LABS: Troponin-I High Sensitivity 13.5 ng/L (<3.5-17.0)
[2024-04-14 00:39] LABS: Acetaminophen LAB < 3 mcg/mL (<30); Salicylate < 5.0 mg/dL (15-30)
[2024-04-14] MEDS: Magnesium Sulfate/D5W 1 GM/100 ML PIGGYBACK IV (00:58)
[2024-04-14] MEDS: Potassium Chloride ER 20 MEQ TAB.ER.PRT 40 MEQ PO (00:58)
--- NOTE | 2024-04-14 01:28 | PC.NURSE ---
pt biba from home, reporting taking trazodone approx 2200 in attempt of SI, refusing to answer why attempt to SI states its a long story. pt was not sure how many trazodone pills she took, bottle was filled 04/02/24 and states has taken 1 pill/night since filling, 20 pills in bottle brought by ems, approximated pt took 14 pills of 50mg tablets. pt is axox4 on arrival speaking full clear sentences. +BS x 4 quadrants. pt reported nausea. poison control notified as documented. pt changed over, on continuous cardiac, o2 and BP monitoring. 1:1 sitter at bedside.
--- NOTE | 2024-04-14 01:45 | ECG_ITS ---
Test Reason : repeat tox Blood Pressure : / mmHG Vent. Rate : 088 BPM Atrial Rate : 088 BPM P-R Int : 184 ms QRS Dur : 134 ms QT Int : 430 ms P-R-T Axes : -19 088 -34 degrees QTc Int : 520 ms Normal sinus rhythm Left bundle branch block Abnormal ECG When compared with ECG of 13-APR-2024 23:45, No significant changes seen Referred By: Isadora Lui Electronically Signed By:CEDRIC ZHANG MD
--- NOTE | 2024-04-14 01:45 | PC.NURSE ---
pt sleeping, easily arousable and axox4. denies sob. when sleeping sats 88-89%, hx copd does not use cpap/o2 at home. MD aware and pt placed on 1L NC per MD order.
--- NOTE | 2024-04-14 02:06 | MHC.EDTECH ---
Pt ekg done at this time. Pt placed on O2 at this time per poison control. Pt assisted with bed webb at this time.
[2024-04-14 03:20] LABS: Anion Gap 13 (12-20); Blood Urea Nitrogen 10 mg/dL (9-16); Calcium 9.3 mg/dL (8.4-10.2); Carbon Dioxide 23 mmol/L (22-29); Chloride 107 mmol/L (96-108); Creatinine Clr Calc Pharmacy 59.6; Estimated Glomerular Filt Rate > 60; Glucose Random 134 mg/dL (60-115); Magnesium 2.1 mg/dL (1.6-2.6); Potassium 4.5 mmol/L (3.3-5.1); Sodium 138 mmol/L (135-145)
--- NOTE | 2024-04-14 04:42 | PC.NURSE ---
pt attempt 3x to void and unable to, reports feeling pressure in bladder. bladder scan obtained >997mL urine. MD Nelson notified. verbal order to straight cath patient. pt is in agreement.
--- NOTE | 2024-04-14 04:57 | PC.NURSE ---
Addendum entered by Aj Weiss 04/14/24 04:57: per medically cleared. Original Note: pt tolerated cath well.
[2024-04-14 04:59] LABS: Appearance Urine Clear; Color Urine Yellow; Glucose Urine UA Negative (Negative); Leukocyte Esterase Urine Negative (Negative); Nitrite Urine Negative (Negative); PH 6.5 (5.0-9.0); Specific Gravity - Urine <= 1.005 (1.005-1.025); Urine Blood Negative (Negative); Urine Ketones Negative (Negative); Urine Protein Negative (Neg-Trace)
[2024-04-14 05:02] LABS: Bacteria Urine None Seen (None Seen); Hyaline Casts Urine 0-2 /LPF (0-2); RBC Urine 0-2 /HPF (0-2); Squamous Epithelial Cell Urine 0-2 /HPF (0-2); WBC Urine 0-5 /HPF (0-5)
[2024-04-14 05:16] LABS: Amphetamine Screen Urine Not Detected (Not Detect); Barbiturates, Urine Not Detected (Not Detect); Benzodiazepines Screen Urine Not Detected (Not Detect); Buprenorphine Scr Not Detected (Not Detect); Cannabinoid Screen Urine Not Detected (Not Detect); Cocaine Screen Urine Not Detected (Not Detect); Fentanyl, urine Not Detected (Not Detect); Methadone Screen, Urine Not Detected (Not Detect); Opiate Screen Urine Not Detected (Not Detect); Oxycodone Screen Urine Not Detected (Not Detect); Phencyclidine Screen Urine Not Detected (Not Detect)
--- NOTE | 2024-04-14 10:44 | MHC.CARE ---
Pt meets IPLOC at this time secondary to an intentional overdose and will remain in the ED on a Section 12a as a GIAN bedsearch. Pt's daughter Sara who is also her HCP did call the hospital back and she was informed of Pt's situation and dispositon.
[2024-04-14] MEDS: lamoTRIgine 25 MG TABLET PO (15:17)
[2024-04-14] MEDS: cloNIDine HCL 0.2 MG TABLET PO (15:21)
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
[2024-04-14] MEDS: OLANZapine 7.5 MG TABLET 15 MG PO (20:09)
[2024-04-14] MEDS: Dabigatran Etexilate Mesylate 150 MG CAPSULE PO (20:09)
[2024-04-14] MEDS: lamoTRIgine 25 MG TABLET 50 MG PO (20:10)
[2024-04-15 08:00] VITALS: BP 133/65; PULSE 67; RESP 16; TEMP 36.5; O2SAT 95
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
[2024-04-15 09:05] LABS: Alanine Aminotransferase 9 U/L (0-31); Albumin Level 3.6 g/dL (3.5-5.0); Alkaline Phosphatase 61 U/L (39-117); Anion Gap 11 (12-20); Aspartate Amino Transferase 16 U/L (5-31); Bilirubin Total 0.3 mg/dL (0.0-1.0); Blood Urea Nitrogen 10 mg/dL (9-16); Calcium 9.4 mg/dL (8.4-10.2); Carbon Dioxide 22 mmol/L (22-29); Chloride 109 mmol/L (96-108); Creatinine Clr Calc Pharmacy 61.2; Estimated Glomerular Filt Rate > 60; Glucose Fasting 125 mg/dL (60-99); Potassium 4.4 mmol/L (3.3-5.1); Sodium 138 mmol/L (135-145); Total Protein 6.6 g/dL (6.5-8.0)
[2024-04-15] MEDS: clonazePAM 0.5 MG TABLET PO ×2 (09:22→21:11)
[2024-04-15] MEDS: lamoTRIgine 25 MG TABLET PO (09:22)
[2024-04-15] MEDS: Dabigatran Etexilate Mesylate 150 MG CAPSULE PO ×2 (09:22→21:11)
[2024-04-15] MEDS: Acetaminophen 325 MG TABLET 650 MG PO (09:22)
[2024-04-15 14:08] VITALS: BP 124/66
[2024-04-15] MEDS: cloNIDine HCL 0.2 MG TABLET PO (14:08)
[2024-04-15 20:00] VITALS: BP 164/85; PULSE 88; RESP 14; O2SAT 96
[2024-04-15] MEDS: OLANZapine 7.5 MG TABLET 15 MG PO (21:11)
[2024-04-15] MEDS: lamoTRIgine 25 MG TABLET 50 MG PO (21:12)
[2024-04-16 07:00] VITALS: BMI 21.7
[2024-04-16 08:00] VITALS: BP 132/74; PULSE 76; RESP 16; TEMP 36.5; O2SAT 95
[2024-04-16] MEDS: lamoTRIgine 25 MG TABLET PO (08:36)
[2024-04-16] MEDS: Dabigatran Etexilate Mesylate 150 MG CAPSULE PO ×2 (08:36→20:47)
--- NOTE | 2024-04-16 09:53 | HO.PSYCHPN ---
Subjective Subjective Date of Service: 04/16/24 Reason For Visit: SA Interim History: met with pt; discussed with team; reviewed chart pt reports she was doing better but started to get sad again this weekend, does not know why. Over weekend, UA taken; reviewed labs of urine culture and no growth pt to be transferred to [facility]; discussed with patient Mental Status Exam Mental Status Exam Narrative: Pt is alert and oriented; behavior is cooperative, tearful, talkative; patient is not in distress; dressed in casual attire with adequate hygiene; mood is described as sad and affect congruent, downcast and tearful; eye contact appropriate; Speech is verbose but normal rate, volume and prosody and not pressured; no psychomotor retardation present; thought process is goal directed but quite circumstantial; Thought content is on life hx; otherwise pertinent to relevant topics and without any delusional content, paranoid ideations or grandiosity; denies any SI/HI. There is no evidence of perceptual disturbance. Patients insight and judgment impaired Diagnostics Vital Signs (24Hr): Vital Signs - 24 hr 04/15/24 14:08 04/15/24 20:00 04/16/24 08:00 Temperature 97.7 F Pulse Rate 88 76 Respiratory Rate 14 16 Blood Pressure 124/66 164/85 H 132/74 Pulse Oximetry 96 95 Oxygen Delivery Method Room Air Room Air BMI result Body Mass Index 21.4 Labs 04/14/24 00:07 04/15/24 08:29 Labs: Laboratory Results - last 48 hr 04/15/24 08:29 Sodium 138 Potassium 4.4 Chloride 109 H Carbon Dioxide 22 Anion Gap 11 L BUN 10 Creatinine 0.72 Estim Creat Clear Calc 61.2 Estimated GFR > 60 Fasting Glucose 125 H Calcium 9.4 Total Bilirubin 0.3 AST 16 ALT 9 Alkaline Phosphatase 61 Total Protein 6.6 Albumin 3.6 Medications Medications Current Medications Acetaminophen (Acetaminophen 325 Mg Tablet) 650 mg PO Q6H PRN PRN Reason: Headache/Pain Mild Scale (1-3) Last Admin: 04/15/24 09:22 Dose: 650 mg Al Hydroxide/Mg Hydroxide (Magnesium Hydrox/Alum Hydrox 30 Ml Oral.Susp) 30 ml PO Q6H PRN PRN Reason: Heartburn/Nausea Clonazepam (Clonazepam 0.5 Mg Tablet) 0.5 mg PO BID PRN PRN Reason: anxiety attack Last Admin: 04/15/24 21:11 Dose: 0.5 mg Clonidine HCl (Clonidine Hcl 0.2 Mg Tablet) 0.2 mg PO BID PRN; Protocol PRN Reason: panic attack Last Admin: 04/15/24 14:08 Dose: 0.2 mg Dabigatran (Dabigatran Etexilate Mesylate 150 Mg Capsule) 150 mg PO BID [facility] Last Admin: 04/16/24 08:36 Dose: 150 mg Lamotrigine (Lamotrigine 25 Mg Tablet) 25 mg PO DAILY [facility] Last Admin: 04/16/24 08:36 Dose: 25 mg Lamotrigine (Lamotrigine 25 Mg Tablet) 50 mg PO BEDTIME [facility] Last Admin: 04/15/24 21:12 Dose: 50 mg Magnesium Hydroxide (Milk Of Magnesia 30 Ml Oral.Susp) 30 ml PO DAILY PRN PRN Reason: Constipation Nicotine Polacrilex (Nicotine Polacrilex 2 Mg Gum) 4 mg BUCCAL Q2H PRN PRN Reason: Nicotine Cravings Olanzapine (Olanzapine 7.5 Mg Tablet) 15 mg PO BEDTIME [facility] Last Admin: 04/15/24 21:11 Dose: 15 mg Trazodone HCl (Trazodone Hcl 50 Mg Tablet) 50 mg PO BEDTIME MRX1 PRN PRN Reason: Insomnia Allergies Allergies Allergy/AdvReac Type Severity Reaction Status Date / Time adhesive AdvReac Unknown Verified 04/13/24 23:47 aspirin AdvReac Unknown Verified 04/13/24 23:47 epinephrine AdvReac Unknown Verified 04/13/24 23:47 Assessment & Plan Assessment & Plan (1) Bipolar 1 disorder: Status: Acute Code(s): F31.9 - Bipolar disorder, unspecified (2) PTSD (post-traumatic stress disorder): Status: Acute Code(s): F43.10 - Post-traumatic stress disorder, unspecified (3) COPD (chronic obstructive pulmonary disease): Status: Acute Code(s): J44.9 - Chronic obstructive pulmonary disease, unspecified (4) Intentional overdose of drug in tablet form: Status: Acute Code(s): T50.902A - Poisoning by unspecified drugs, medicaments and biological substances, intentional self-harm, initial encounter Plan The patient is a 78-year-old single female, who lives on her own, with history of bipolar disorder and PTSD, chronic SI, chronically prolonged QTC, COPD, pacemaker cholecystectomy, TIAs who was recently discharged from on 04/02 who presents now following suicide attempt by overdose on trazodone. Patient reports that when she was last discharged, she was doing well; she said she continued to take her medication without a problem. This past week however she started feeling sad for no clear reason; she reports she has stops sleeping well and had PTSD flashbacks and impulsively took an overdose of trazodone. Patient felt ill and wanted to call crisis for help however did not have her phone so she pressed her life Alert button and was brought to the hospital. Patient denies any substance abuse. Patient expressing regret over incident. PLAN: CV Q 15 minute checks Restart home meds Discussed safety at home with team, outpatient supports Clonazepam 0.5 mg b.i.d. p.r.n. Clonidine 0.2 mg b.i.d. p.r.n. Dabigartran 150mg BID Lamictal Zyprexa 15 mg q.h.s. Trazodone 50 mg with repeat Patient educated on: diagnosis Informed Consent: understands Reason for continued inpatient stay Substantial Risk for: rapid decompensation Time Spent With Patient Time: Total time managing care of this patient today ____ minutes.
[2024-04-16 15:18] VITALS: BP 154/78
[2024-04-16] MEDS: cloNIDine HCL 0.2 MG TABLET PO (15:18)
[2024-04-16 19:51] VITALS: BP 134/67; PULSE 74; RESP 14; TEMP 36.4; O2SAT 96
[2024-04-16] MEDS: OLANZapine 7.5 MG TABLET 15 MG PO (20:47)
[2024-04-16] MEDS: lamoTRIgine 25 MG TABLET 50 MG PO (20:48)
[2024-04-16] MEDS: clonazePAM 0.5 MG TABLET PO (20:56)
[2024-04-17 01:45] VITALS: BP 138/65; PULSE 80; RESP 15; TEMP 36.5; O2SAT 96
--- NOTE | 2024-04-17 01:52 | PM.EVENT ---
Event Note Date of Service: 04/17/24 Event Note: Patient had unwitnessed fall. States she did bump her head. Obtaining CT scan to further evaluate and delineate anatomy Time Spent With Patient Time: Total time managing care of this patient today ____ minutes.
--- NOTE | 2024-04-17 04:24 | MHC.EVENTN ---
At about 1:40 am staff heard a banging noise in patient's room. When staff rushed in, patient was found sitting on the floor by the bathroom door and her walker was by her legs. Pt was awake and alert, she stated that her legs gave up and she fell . She stated that she hit back of her head against the bathroom door, but added that It was not as bad as it sounded . With two staff assist patent got up and with proper use of waker went to the kitchen. Per had skin assessment no abnormalities were found. Vitals were WNL, pupils were equal and reactive to light. Pt complained of mild headache. Nursing supervisor scouring pads and hospitalist were notified. STAT CT scan was ordered and was done, results pending. Pt went back to bed after coming from CT scan.
[2024-04-17 08:00] VITALS: BP 161/77; PULSE 74; TEMP 36.1
--- NOTE | 2024-04-17 08:10 | P.PNPSI_ITS ---
Subjective Subjective Date of Service: 04/17/24 Reason For Visit: SA Subjective Notes: Conditional Voluntary and 3 Day Interim History: Patient's case reviewed in treatment planning chart reviewed patient seen. Patient had fall last night circumstances unclear Head CT scan did not show any changes patient does have a history of TIAs describes recent events in which she had someone living with her which turned out to be problematic a poor decision-making May recent impulsive suicide attempt appears still to be cycling with periods of euphoria to depression was unable to call for help did not know how to use her phone has had multiple repeated hospitalizations refusing to consider alternative living placement seems to do much better with structure Patient did have a clonazepam last night olanzapine 15 mg was given a walker 20 point drop in blood pressure noted on orthostatic blood pressure Mental Status Exam Mental Status Exam Narrative: Pt is alert and oriented; behavior is cooperative, she is using a walker; mood is described as anxious dysphoric and affect congruent, denies any consequences to fall; Speech is verbose but normal rate, volume and prosody and not pressured; thought process is goal directed circumstantial; Thought content is on recent incident, no paranoid ideations or grandiosity; denies any SI/HI. There is no evidence of perceptual disturbance no lateralizing symptoms no gross confusion or aphasia. Patients insight and judgment impaired were reflective regarding recent behavior taking in an unknown male into her apartment multiple hospitalizations with intermittent unsafe behavior worsening physical health agreeable to use walker Diagnostics Vital Signs (24Hr): Vital Signs - 24 hr 04/16/24 15:18 04/16/24 19:51 04/17/24 01:45 Temperature 97.6 F 97.7 F Pulse Rate 74 80 Respiratory Rate 14 15 Blood Pressure 154/78 H 134/67 138/65 Pulse Oximetry 96 96 BMI result Body Mass Index 21.7 Labs 04/14/24 00:07 04/15/24 08:29 Labs: Laboratory Results - last 48 hr 04/15/24 08:29 Sodium 138 Potassium 4.4 Chloride 109 H Carbon Dioxide 22 Anion Gap 11 L BUN 10 Creatinine 0.72 Estim Creat Clear Calc 61.2 Estimated GFR > 60 Fasting Glucose 125 H Calcium 9.4 Total Bilirubin 0.3 AST 16 ALT 9 Alkaline Phosphatase 61 Total Protein 6.6 Albumin 3.6 Imaging Radiology Impressions: ITS Impressions Head CT 04/17/24 02:34 IMPRESSION: 1. No acute intracranial abnormalities. 2. Mild chronic microangiopathic ischemic changes of the brain. 3. Intracranial atherosclerosis. Electronically signed by: Dean Ambrosio MD 04/17/2024 06:53 AM EDT Medications Medications Current Medications Acetaminophen (Acetaminophen 325 Mg Tablet) 650 mg PO Q6H PRN PRN Reason: Headache/Pain Mild Scale (1-3) Last Admin: 04/15/24 09:22 Dose: 650 mg Al Hydroxide/Mg Hydroxide (Magnesium Hydrox/Alum Hydrox 30 Ml Oral.Susp) 30 ml PO Q6H PRN PRN Reason: Heartburn/Nausea Clonazepam (Clonazepam 0.5 Mg Tablet) 0.5 mg PO BID PRN PRN Reason: anxiety attack Last Admin: 04/16/24 20:56 Dose: 0.5 mg Clonidine HCl (Clonidine Hcl 0.2 Mg Tablet) 0.2 mg PO BID PRN; Protocol PRN Reason: panic attack Last Admin: 04/16/24 15:18 Dose: 0.2 mg Dabigatran (Dabigatran Etexilate Mesylate 150 Mg Capsule) 150 mg PO BID [facility] Last Admin: 04/16/24 20:47 Dose: 150 mg Lamotrigine (Lamotrigine 25 Mg Tablet) 25 mg PO DAILY [facility] Last Admin: 04/16/24 08:36 Dose: 25 mg Lamotrigine (Lamotrigine 25 Mg Tablet) 50 mg PO BEDTIME [facility] Last Admin: 04/16/24 20:48 Dose: 50 mg Magnesium Hydroxide (Milk Of Magnesia 30 Ml Oral.Susp) 30 ml PO DAILY PRN PRN Reason: Constipation Nicotine Polacrilex (Nicotine Polacrilex 2 Mg Gum) 4 mg BUCCAL Q2H PRN PRN Reason: Nicotine Cravings Olanzapine (Olanzapine 7.5 Mg Tablet) 15 mg PO BEDTIME [facility] Last Admin: 04/16/24 20:47 Dose: 15 mg Trazodone HCl (Trazodone Hcl 50 Mg Tablet) 50 mg PO BEDTIME MRX1 PRN PRN Reason: Insomnia Allergies Allergies Allergy/AdvReac Type Severity Reaction Status Date / Time adhesive AdvReac Unknown Verified 04/13/24 23:47 aspirin AdvReac Unknown Verified 04/13/24 23:47 epinephrine AdvReac Unknown Verified 04/13/24 23:47 Assessment & Plan Assessment & Plan (1) Bipolar 1 disorder: Status: Acute Code(s): F31.9 - Bipolar disorder, unspecified (2) PTSD (post-traumatic stress disorder): Status: Acute Code(s): F43.10 - Post-traumatic stress disorder, unspecified (3) COPD (chronic obstructive pulmonary disease): Status: Acute Code(s): J44.9 - Chronic obstructive pulmonary disease, unspecified (4) Intentional overdose of drug in tablet form: Status: Acute Code(s): T50.902A - Poisoning by unspecified drugs, medicaments and biological substances, intentional self-harm, initial encounter Plan The patient is a 78-year-old single female, who lives on her own, with history of bipolar disorder and PTSD, chronic SI, chronically prolonged QTC, COPD, pacemaker cholecystectomy, TIAs who was recently discharged from on 04/02 who presents now following suicide attempt by overdose on trazodone. Patient reports that when she was last discharged, she was doing well; she said she continued to take her medication without a problem. This past week however she started feeling sad for no clear reason; she reports she has stops sleeping well and had PTSD flashbacks and impulsively took an overdose of trazodone. Patient felt ill and wanted to call crisis for help however did not have her phone so she pressed her life Alert button and was brought to the hospital. Patient denies any substance abuse. Patient expressing regret over incident. PLAN: CV Q 15 minute checks Restart home meds Discussed safety at home with team, outpatient supports Clonazepam 0.5 mg b.i.d. p.r.n. Clonidine 0.2 mg b.i.d. p.r.n. Dabigartran 150mg BID Lamictal Zyprexa 15 mg q.h.s. Trazodone 50 mg with repeat 04/17/2024 Patient is status post recent fall orthostatic changes noted will hold clonazepam lower olanzapine to 10 mg increase Lamictal as tolerated PT consult Head CT scan reviewed no acute changes or finding patient does have a history of TIAs was seen by hospitalist service last night. Patient would clearly benefit from assisted living or rest home setting has had ongoing multiple repeated hospitalizations in her current living situation worsening physical health neurological health psychiatric health with instability difficulty in accepting current difficulties with living totally independently which she has been trying to do since the and illness of her . Would trying get family encouragement for alternative living situation Reason for continued inpatient stay Substantial Risk for: harm to self, inability to function and rapid decompensation Time Spent With Patient Time: Total time managing care of this patient today ____ minutes.
[2024-04-17] MEDS: lamoTRIgine 25 MG TABLET PO (10:24)
[2024-04-17] MEDS: Dabigatran Etexilate Mesylate 150 MG CAPSULE PO ×2 (10:24→20:37)
[2024-04-17 11:37] VITALS: BP 167/82; PULSE 75
[2024-04-17 20:00] VITALS: BP 145/89; PULSE 93; RESP 16; TEMP 36.7; O2SAT 96
[2024-04-17] MEDS: lamoTRIgine 25 MG TABLET 50 MG PO (20:37)
[2024-04-17] MEDS: traZODone HCL 50 MG TABLET PO (20:37)
[2024-04-17] MEDS: OLANZapine 10 MG TABLET PO (20:37)
[2024-04-17 21:00] VITALS: BP 159/79; PULSE 76
[2024-04-18] MEDS: traZODone HCL 25 MG HALFTAB PO ×2 (00:42→20:38)
[2024-04-18 08:00] VITALS: BP 164/91; PULSE 76; RESP 16; TEMP 36.6; O2SAT 96
[2024-04-18] MEDS: lamoTRIgine 25 MG TABLET 50 MG PO ×2 (09:25→20:38)
[2024-04-18] MEDS: Dabigatran Etexilate Mesylate 150 MG CAPSULE PO ×2 (09:25→20:39)
--- NOTE | 2024-04-18 11:22 | HO.PSYCHPN ---
Subjective Subjective Date of Service: 04/18/24 Reason For Visit: SA Subjective Notes: Conditional Voluntary Interim History: Patient was seen and discussed in rounds today. Records and plans were reviewed. She had an unobserved fall yesterday with no injuries. She is being encouraged to use her walker. No complaints or side effects. Passive SI reported. No changes were made today Review of Systems Review of Systems Yes all other systems are reviewed and are negative Mental Status Exam Mental Status Exam Narrative: In today's visit she is alert, oriented and pleasant. Normal speech. Good eye contact. Appropriate affect. No signs of psychosis. Cognitively appears to be intact. No SI. No AVH. Judgment is intact Diagnostics Vital Signs (24Hr): Vital Signs - 24 hr 04/17/24 11:37 04/17/24 20:00 04/17/24 21:00 Temperature 98.1 F Pulse Rate 75 93 76 Respiratory Rate 16 Blood Pressure 167/82 H 145/89 H 159/79 H Pulse Oximetry 96 Oxygen Delivery Method Room Air BMI result Body Mass Index 21.7 Labs 04/14/24 00:07 04/15/24 08:29 Imaging Radiology Impressions: ITS Impressions Head CT 04/17/24 02:34 IMPRESSION: 1. No acute intracranial abnormalities. 2. Mild chronic microangiopathic ischemic changes of the brain. 3. Intracranial atherosclerosis. Electronically signed by: Dean Ambrosio MD 04/17/2024 06:53 AM EDT Medications Medications Current Medications Acetaminophen (Acetaminophen 325 Mg Tablet) 650 mg PO Q6H PRN PRN Reason: Headache/Pain Mild Scale (1-3) Last Admin: 04/15/24 09:22 Dose: 650 mg Al Hydroxide/Mg Hydroxide (Magnesium Hydrox/Alum Hydrox 30 Ml Oral.Susp) 30 ml PO Q6H PRN PRN Reason: Heartburn/Nausea Dabigatran (Dabigatran Etexilate Mesylate 150 Mg Capsule) 150 mg PO BID [facility] TO [facility] Last Admin: 04/18/24 09:25 Dose: 150 mg Lamotrigine (Lamotrigine 25 Mg Tablet) 50 mg PO BEDTIME [facility] Last Admin: 04/17/24 20:37 Dose: 50 mg Lamotrigine (Lamotrigine 25 Mg Tablet) 50 mg PO DAILY [facility] Last Admin: 04/18/24 09:25 Dose: 50 mg Magnesium Hydroxide (Milk Of Magnesia 30 Ml Oral.Susp) 30 ml PO DAILY PRN PRN Reason: Constipation Nicotine Polacrilex (Nicotine Polacrilex 2 Mg Gum) 4 mg BUCCAL Q2H PRN PRN Reason: Nicotine Cravings Olanzapine (Olanzapine 10 Mg Tablet) 10 mg PO BEDTIME [facility] Last Admin: 04/17/24 20:37 Dose: 10 mg Trazodone HCl (Trazodone Hcl 25 Mg Halftab) 25 mg PO BEDTIME MRX1 PRN PRN Reason: Insomnia Last Admin: 04/18/24 00:42 Dose: 25 mg Allergies Allergies Allergy/AdvReac Type Severity Reaction Status Date / Time adhesive AdvReac Unknown Verified 04/13/24 23:47 aspirin AdvReac Unknown Verified 04/13/24 23:47 epinephrine AdvReac Unknown Verified 04/13/24 23:47 Assessment & Plan Assessment & Plan (1) Bipolar 1 disorder: Status: Acute Code(s): F31.9 - Bipolar disorder, unspecified (2) PTSD (post-traumatic stress disorder): Status: Acute Code(s): F43.10 - Post-traumatic stress disorder, unspecified (3) COPD (chronic obstructive pulmonary disease): Status: Acute Code(s): J44.9 - Chronic obstructive pulmonary disease, unspecified (4) Intentional overdose of drug in tablet form: Status: Acute Code(s): T50.902A - Poisoning by unspecified drugs, medicaments and biological substances, intentional self-harm, initial encounter Plan The patient is a 78-year-old single female, who lives on her own, with history of bipolar disorder and PTSD, chronic SI, chronically prolonged QTC, COPD, pacemaker cholecystectomy, TIAs who was recently discharged from on 04/02 who presents now following suicide attempt by overdose on trazodone. Patient reports that when she was last discharged, she was doing well; she said she continued to take her medication without a problem. This past week however she started feeling sad for no clear reason; she reports she has stops sleeping well and had PTSD flashbacks and impulsively took an overdose of trazodone. Patient felt ill and wanted to call crisis for help however did not have her phone so she pressed her life Alert button and was brought to the hospital. Patient denies any substance abuse. Patient expressing regret over incident. PLAN: CV Q 15 minute checks Restart home meds Discussed safety at home with team, outpatient supports Clonazepam 0.5 mg b.i.d. p.r.n. Clonidine 0.2 mg b.i.d. p.r.n. Dabigartran 150mg BID Lamictal Zyprexa 15 mg q.h.s. Trazodone 50 mg with repeat 04/17/2024 Patient is status post recent fall orthostatic changes noted will hold clonazepam lower olanzapine to 10 mg increase Lamictal as tolerated PT consult Head CT scan reviewed no acute changes or finding patient does have a history of TIAs was seen by hospitalist service last night. Patient would clearly benefit from assisted living or rest home setting has had ongoing multiple repeated hospitalizations in her current living situation worsening physical health neurological health psychiatric health with instability difficulty in accepting current difficulties with living totally independently which she has been trying to do since the and illness of her . Would trying get family encouragement for alternative living situation Reason for continued inpatient stay Substantial Risk for: med/psych decompensation Time Spent With Patient Time: Total time managing care of this patient today ____ minutes.
[2024-04-18 11:53] VITALS: BP 152/76; PULSE 80
[2024-04-18 11:55] VITALS: BP 154/80; PULSE 76
[2024-04-18 20:00] VITALS: BP 155/77; PULSE 64; RESP 16; TEMP 37.1; O2SAT 96
[2024-04-18] MEDS: OLANZapine 10 MG TABLET PO (20:38)
[2024-04-18 23:29] VITALS: BP 130/66; PULSE 76
[2024-04-19] MEDS: traZODone HCL 25 MG HALFTAB PO ×2 (01:22→21:16)
[2024-04-19] MEDS: Magnesium Hydrox/Alum Hydrox 30 ML ORAL.SUSP PO (07:08)
[2024-04-19 08:00] VITALS: BP 128/64; PULSE 73; RESP 16; TEMP 36.6; O2SAT 96
[2024-04-19] MEDS: Dabigatran Etexilate Mesylate 150 MG CAPSULE PO ×2 (09:09→21:16)
[2024-04-19] MEDS: lamoTRIgine 25 MG TABLET 50 MG PO ×2 (09:10→21:16)
--- NOTE | 2024-04-19 10:25 | HO.PSYCHPN ---
Subjective Subjective Date of Service: 04/19/24 Reason For Visit: SA Subjective Notes: Conditional Voluntary Interim History: Patient was seen and discussed in rounds today. Records and plans were reviewed. She has been social and interactive. Passive SI reported. She feels that she is not able to empty her bladder fully denies any burning sensation but I did order the UA. No SI. No side effects. No changes were made today Review of Systems Review of Systems Yes all other systems are reviewed and are negative Mental Status Exam Mental Status Exam Narrative: In today's visit she is alert, oriented and pleasant. Normal speech. Good eye contact. Appropriate affect. No signs of psychosis. Cognitively appears to be intact. No SI. No AVH. Judgment is intact Diagnostics Vital Signs (24Hr): Vital Signs - 24 hr 04/18/24 11:53 04/18/24 11:55 04/18/24 20:00 Temperature 98.7 F Pulse Rate 80 76 64 Respiratory Rate 16 Blood Pressure 152/76 H 154/80 H 155/77 H Pulse Oximetry 96 Oxygen Delivery Method Room Air 04/18/24 23:29 04/19/24 08:00 Temperature 97.8 F Pulse Rate 76 73 Respiratory Rate 16 Blood Pressure 130/66 128/64 Pulse Oximetry 96 Oxygen Delivery Method Room Air BMI result Body Mass Index 21.7 Labs 04/14/24 00:07 04/15/24 08:29 Imaging Radiology Impressions: ITS Impressions Head CT 04/17/24 02:34 IMPRESSION: 1. No acute intracranial abnormalities. 2. Mild chronic microangiopathic ischemic changes of the brain. 3. Intracranial atherosclerosis. Electronically signed by: Dean Ambrosio MD 04/17/2024 06:53 AM EDT Medications Medications Current Medications Acetaminophen (Acetaminophen 325 Mg Tablet) 650 mg PO Q6H PRN PRN Reason: Headache/Pain Mild Scale (1-3) Last Admin: 04/15/24 09:22 Dose: 650 mg Al Hydroxide/Mg Hydroxide (Magnesium Hydrox/Alum Hydrox 30 Ml Oral.Susp) 30 ml PO Q6H PRN PRN Reason: Heartburn/Nausea Last Admin: 04/19/24 07:08 Dose: 30 ml Dabigatran (Dabigatran Etexilate Mesylate 150 Mg Capsule) 150 mg PO BID [facility] Last Admin: 04/19/24 09:09 Dose: 150 mg Lamotrigine (Lamotrigine 25 Mg Tablet) 50 mg PO BEDTIME [facility] Last Admin: 04/18/24 20:38 Dose: 50 mg Lamotrigine (Lamotrigine 25 Mg Tablet) 50 mg PO DAILY [facility] Last Admin: 04/19/24 09:10 Dose: 50 mg Magnesium Hydroxide (Milk Of Magnesia 30 Ml Oral.Susp) 30 ml PO DAILY PRN PRN Reason: Constipation Nicotine Polacrilex (Nicotine Polacrilex 2 Mg Gum) 4 mg BUCCAL Q2H PRN PRN Reason: Nicotine Cravings Olanzapine (Olanzapine 10 Mg Tablet) 10 mg PO BEDTIME [facility] Last Admin: 04/18/24 20:38 Dose: 10 mg Trazodone HCl (Trazodone Hcl 25 Mg Halftab) 25 mg PO BEDTIME MRX1 PRN PRN Reason: Insomnia Last Admin: 04/19/24 01:22 Dose: 25 mg Allergies Allergies Allergy/AdvReac Type Severity Reaction Status Date / Time adhesive AdvReac Unknown Verified 04/13/24 23:47 aspirin AdvReac Unknown Verified 04/13/24 23:47 epinephrine AdvReac Unknown Verified 04/13/24 23:47 Assessment & Plan Assessment & Plan (1) Bipolar 1 disorder: Status: Acute Code(s): F31.9 - Bipolar disorder, unspecified (2) PTSD (post-traumatic stress disorder): Status: Acute Code(s): F43.10 - Post-traumatic stress disorder, unspecified (3) COPD (chronic obstructive pulmonary disease): Status: Acute Code(s): J44.9 - Chronic obstructive pulmonary disease, unspecified (4) Intentional overdose of drug in tablet form: Status: Acute Code(s): T50.902A - Poisoning by unspecified drugs, medicaments and biological substances, intentional self-harm, initial encounter Plan The patient is a 78-year-old single female, who lives on her own, with history of bipolar disorder and PTSD, chronic SI, chronically prolonged QTC, COPD, pacemaker cholecystectomy, TIAs who was recently discharged from on 04/02 who presents now following suicide attempt by overdose on trazodone. Patient reports that when she was last discharged, she was doing well; she said she continued to take her medication without a problem. This past week however she started feeling sad for no clear reason; she reports she has stops sleeping well and had PTSD flashbacks and impulsively took an overdose of trazodone. Patient felt ill and wanted to call crisis for help however did not have her phone so she pressed her life Alert button and was brought to the hospital. Patient denies any substance abuse. Patient expressing regret over incident. PLAN: CV Q 15 minute checks Restart home meds Discussed safety at home with team, outpatient supports Clonazepam 0.5 mg b.i.d. p.r.n. Clonidine 0.2 mg b.i.d. p.r.n. Dabigartran 150mg BID Lamictal Zyprexa 15 mg q.h.s. Trazodone 50 mg with repeat 04/17/2024 Patient is status post recent fall orthostatic changes noted will hold clonazepam lower olanzapine to 10 mg increase Lamictal as tolerated PT consult Head CT scan reviewed no acute changes or finding patient does have a history of TIAs was seen by hospitalist service last night. Patient would clearly benefit from assisted living or rest home setting has had ongoing multiple repeated hospitalizations in her current living situation worsening physical health neurological health psychiatric health with instability difficulty in accepting current difficulties with living totally independently which she has been trying to do since the and illness of her . Would trying get family encouragement for alternative living situation 04/19: Continue current regimen and plans Reason for continued inpatient stay Substantial Risk for: rapid decompensation Time Spent With Patient Time: Total time managing care of this patient today ____ minutes.
[2024-04-19 14:07] LABS: Appearance Urine Clear; Color Urine Yellow; Glucose Urine UA Negative (Negative); Leukocyte Esterase Urine Moderate (2+) (Negative); Nitrite Urine Negative (Negative); UMIC TRIGGER UACC YES; Urine Blood Trace (Negative); Urine Ketones Negative (Negative); Urine Protein Negative (Neg-Trace)
[2024-04-19 14:12] LABS: Bacteria Urine None Seen (None Seen); Hyaline Casts Urine 0-2 /LPF (0-2); RBC Urine 0-2 /HPF (0-2); Squamous Epithelial Cell Urine 0-2 /HPF (0-2); UACC Culture Trigger YES
[2024-04-19 19:46] VITALS: BP 117/76; PULSE 95; RESP 16; TEMP 36.7; O2SAT 95
[2024-04-19] MEDS: OLANZapine 10 MG TABLET PO (21:16)
[2024-04-20 08:00] VITALS: BP 123/64; PULSE 72; RESP 16; TEMP 36.6; O2SAT 95
[2024-04-20] MEDS: lamoTRIgine 25 MG TABLET 50 MG PO ×2 (08:28→22:23)
[2024-04-20] MEDS: Dabigatran Etexilate Mesylate 150 MG CAPSULE PO ×2 (08:29→22:23)
--- NOTE | 2024-04-20 09:55 | P.PNPSI_ITS ---
Subjective Subjective Date of Service: 04/20/24 Reason For Visit: SA Subjective Notes: Conditional Voluntary Interim History: Patient was seen and discussed in rounds today. Records and plans were reviewed. She states that she is feeling a little more depressed today for no known reasons. No complaints of pain or discomfort today. Urinalysis showed 6- 10 white BCs and will see if a culture was done in a day or 2. No other complaints. No changes were made. No SI. Review of Systems Review of Systems Yes all other systems are reviewed and are negative Mental Status Exam Mental Status Exam Narrative: In today's visit she is alert, oriented and pleasant. Normal speech. Good eye contact. Appropriate affect. No signs of psychosis. Cognitively appears to be intact. No SI. No AVH. Judgment is intact Diagnostics Vital Signs (24Hr): Vital Signs - 24 hr 04/19/24 19:46 04/20/24 08:00 Temperature 98.0 F 97.8 F Pulse Rate 95 72 Respiratory Rate 16 16 Blood Pressure 117/76 123/64 Pulse Oximetry 95 95 Oxygen Delivery Method Room Air Room Air BMI result Body Mass Index 21.7 Labs 04/14/24 00:07 04/15/24 08:29 Labs: Laboratory Results - last 48 hr 04/19/24 Unknown Urine Color Yellow Urine Appearance Clear Urine pH 6.0 Ur Specific [place] 1.010 Urine Protein Negative Urine Glucose (UA) Negative Urine Ketones Negative Urine Blood Trace H Urine Nitrite Negative Ur Leukocyte Esterase Moderate (2+) H Urine RBC 0-2 Urine WBC 6-10 H Ur Squamous Epith Cells 0-2 Urine Bacteria None Seen Hyaline Casts 0-2 Imaging Radiology Impressions: ITS Impressions Head CT 04/17/24 02:34 IMPRESSION: 1. No acute intracranial abnormalities. 2. Mild chronic microangiopathic ischemic changes of the brain. 3. Intracranial atherosclerosis. Electronically signed by: Dean Ambrosio MD 04/17/2024 06:53 AM EDT Medications Medications Current Medications Acetaminophen (Acetaminophen 325 Mg Tablet) 650 mg PO Q6H PRN PRN Reason: Headache/Pain Mild Scale (1-3) Last Admin: 04/15/24 09:22 Dose: 650 mg Al Hydroxide/Mg Hydroxide (Magnesium Hydrox/Alum Hydrox 30 Ml Oral.Susp) 30 ml PO Q6H PRN PRN Reason: Heartburn/Nausea Last Admin: 04/19/24 07:08 Dose: 30 ml Dabigatran (Dabigatran Etexilate Mesylate 150 Mg Capsule) 150 mg PO BID [facility] Last Admin: 04/20/24 08:29 Dose: 150 mg Lamotrigine (Lamotrigine 25 Mg Tablet) 50 mg PO BEDTIME [facility] Last Admin: 04/19/24 21:16 Dose: 50 mg Lamotrigine (Lamotrigine 25 Mg Tablet) 50 mg PO DAILY [facility] Last Admin: 04/20/24 08:28 Dose: 50 mg Magnesium Hydroxide (Milk Of Magnesia 30 Ml Oral.Susp) 30 ml PO DAILY PRN PRN Reason: Constipation Nicotine Polacrilex (Nicotine Polacrilex 2 Mg Gum) 4 mg BUCCAL Q2H PRN PRN Reason: Nicotine Cravings Olanzapine (Olanzapine 10 Mg Tablet) 10 mg PO BEDTIME [facility] Last Admin: 04/19/24 21:16 Dose: 10 mg Trazodone HCl (Trazodone Hcl 25 Mg Halftab) 25 mg PO BEDTIME MRX1 PRN PRN Reason: Insomnia Last Admin: 04/19/24 21:16 Dose: 25 mg Allergies Allergies Allergy/AdvReac Type Severity Reaction Status Date / Time adhesive AdvReac Unknown Verified 04/13/24 23:47 aspirin AdvReac Unknown Verified 04/13/24 23:47 epinephrine AdvReac Unknown Verified 04/13/24 23:47 Assessment & Plan Assessment & Plan (1) Bipolar 1 disorder: Status: Acute Code(s): F31.9 - Bipolar disorder, unspecified (2) PTSD (post-traumatic stress disorder): Status: Acute Code(s): F43.10 - Post-traumatic stress disorder, unspecified (3) COPD (chronic obstructive pulmonary disease): Status: Acute Code(s): J44.9 - Chronic obstructive pulmonary disease, unspecified (4) Intentional overdose of drug in tablet form: Status: Acute Code(s): T50.902A - Poisoning by unspecified drugs, medicaments and biological substances, intentional self-harm, initial encounter Plan The patient is a 78-year-old single female, who lives on her own, with history of bipolar disorder and PTSD, chronic SI, chronically prolonged QTC, COPD, pacemaker cholecystectomy, TIAs who was recently discharged from on 04/02 who presents now following suicide attempt by overdose on trazodone. Patient reports that when she was last discharged, she was doing well; she said she continued to take her medication without a problem. This past week however she started feeling sad for no clear reason; she reports she has stops sleeping well and had PTSD flashbacks and impulsively took an overdose of trazodone. Patient felt ill and wanted to call crisis for help however did not have her phone so she pressed her life Alert button and was brought to the hospital. Patient denies any substance abuse. Patient expressing regret over incident. PLAN: CV Q 15 minute checks Restart home meds Discussed safety at home with team, outpatient supports Clonazepam 0.5 mg b.i.d. p.r.n. Clonidine 0.2 mg b.i.d. p.r.n. Dabigartran 150mg BID Lamictal Zyprexa 15 mg q.h.s. Trazodone 50 mg with repeat 04/17/2024 Patient is status post recent fall orthostatic changes noted will hold clonazepam lower olanzapine to 10 mg increase Lamictal as tolerated PT consult Head CT scan reviewed no acute changes or finding patient does have a history of TIAs was seen by hospitalist service last night. Patient would clearly benefit from assisted living or rest home setting has had ongoing multiple repeated hospitalizations in her current living situation worsening physical health neurological health psychiatric health with instability difficulty in accepting current difficulties with living totally independently which she has been trying to do since the and illness of her . Would trying get family encouragement for alternative living situation 04/19: Continue current regimen and plans 04/20: Continue current plans and regimen Reason for continued inpatient stay Substantial Risk for: med/psych decompensation Time Spent With Patient Time: Total time managing care of this patient today ____ minutes.
[2024-04-20 13:00] VITALS: BP 130/74; PULSE 88
[2024-04-20 15:00] VITALS: BP 138/80; PULSE 84
[2024-04-20 20:00] VITALS: BP 126/63; PULSE 77; RESP 16; TEMP 36.3; O2SAT 94
[2024-04-20] MEDS: OLANZapine 10 MG TABLET PO (22:24)
[2024-04-20] MEDS: traZODone HCL 25 MG HALFTAB PO (23:22)
[2024-04-21] MEDS: traZODone HCL 25 MG HALFTAB PO (02:15)
[2024-04-21 08:00] VITALS: BP 133/62; PULSE 98; TEMP 36.4; O2SAT 97
[2024-04-21] MEDS: Dabigatran Etexilate Mesylate 150 MG CAPSULE PO ×2 (09:31→20:25)
[2024-04-21] MEDS: lamoTRIgine 25 MG TABLET 50 MG PO ×2 (09:31→20:25)
[2024-04-21 14:47] VITALS: BP 119/82; PULSE 99; RESP 18; TEMP 36; O2SAT 96
--- NOTE | 2024-04-21 15:27 | PC.NURSE ---
Katheryn was transferred from to . She is on a CV, skin check done on arrival it appears intact and dry. Katheryn had a fall on 04/17/24 on , she is currently utilizing a walker. Katheryn is A/O X3, when asked how she felt stated Better now that I'm here. She reports endorsing anxiety and depression, when asked if she had any thoughts of wanting to hurt self stated No, verbalized to look for staff if thoughts occur. Katheryn had been discharged from on 04/02/24, she presented to [facility] on 04/13/24 after overdosing on Trazodone.
[2024-04-21 20:00] VITALS: BP 147/82; PULSE 93; RESP 18; TEMP 36.2; O2SAT 94
[2024-04-21] MEDS: OLANZapine 10 MG TABLET PO (20:25)
[2024-04-22 09:00] VITALS: BP 150/72; PULSE 93; RESP 20; TEMP 36.8; O2SAT 93
[2024-04-22] MEDS: lamoTRIgine 25 MG TABLET 50 MG PO ×2 (10:35→20:12)
[2024-04-22] MEDS: Dabigatran Etexilate Mesylate 150 MG CAPSULE PO ×2 (10:35→20:12)
--- NOTE | 2024-04-22 15:08 | P.PNPSI_ITS ---
Subjective Subjective Date of Service: 04/22/24 Reason For Visit: SA Subjective Notes: Conditional Voluntary Interim History: The nursing staff reported the patient had been cooperative with treatment, fully compliant with Zyprexa and Lamictal. Last April 17 she had a fall but no injuries. She was admitted for an overdose of trazodone. On interview the patient adamantly denies current suicidal ideation she is feeling much better. Mental Status Exam Mental Status Exam Patient Appearance: Well Grooomed and Appropriate Patient Orientation: Person and Situation Level of Consciousness: Awake and Appropriate Patient Behavior: Appropriate and Cooperative Mood Description: Calm Affect Description: Constricted Patient Cognition Impaired: Yes Ability to Follow Directions: Good Speech Pattern: Clear Hallucinations: None Delusions: Not Present Thought Process: Distracted and Slowed Thinking Thought Content: positive for [place] and positive for Poverty of Content Judgement: Fair Diagnostics Vital Signs (24Hr): Vital Signs - 24 hr 04/21/24 20:00 04/22/24 09:00 Temperature 97.1 F 98.3 F Pulse Rate 93 93 Respiratory Rate 18 20 Blood Pressure 147/82 H 150/72 H Pulse Oximetry 94 93 Oxygen Delivery Method Room Air Room Air BMI result Body Mass Index 21.7 Labs 04/14/24 00:07 04/15/24 08:29 Imaging Radiology Impressions: ITS Impressions Head CT 04/17/24 02:34 IMPRESSION: 1. No acute intracranial abnormalities. 2. Mild chronic microangiopathic ischemic changes of the brain. 3. Intracranial atherosclerosis. Electronically signed by: Dean Ambrosio MD 04/17/2024 06:53 AM EDT Medications Medications Current Medications Acetaminophen (Acetaminophen 325 Mg Tablet) 650 mg PO Q6H PRN PRN Reason: Headache/Pain Mild Scale (1-3) Last Admin: 04/15/24 09:22 Dose: 650 mg Al Hydroxide/Mg Hydroxide (Magnesium Hydrox/Alum Hydrox 30 Ml Oral.Susp) 30 ml PO Q6H PRN PRN Reason: Heartburn/Nausea Last Admin: 04/19/24 07:08 Dose: 30 ml Dabigatran (Dabigatran Etexilate Mesylate 150 Mg Capsule) 150 mg PO BID [facility] Last Admin: 04/22/24 10:35 Dose: 150 mg Lamotrigine (Lamotrigine 25 Mg Tablet) 50 mg PO BEDTIME [facility] Last Admin: 04/21/24 20:25 Dose: 50 mg Lamotrigine (Lamotrigine 25 Mg Tablet) 50 mg PO DAILY [facility] Last Admin: 04/22/24 10:35 Dose: 50 mg Magnesium Hydroxide (Milk Of Magnesia 30 Ml Oral.Susp) 30 ml PO DAILY PRN PRN Reason: Constipation Nicotine Polacrilex (Nicotine Polacrilex 2 Mg Gum) 4 mg BUCCAL Q2H PRN PRN Reason: Nicotine Cravings Olanzapine (Olanzapine 10 Mg Tablet) 10 mg PO BEDTIME [facility] Last Admin: 04/21/24 20:25 Dose: 10 mg Trazodone HCl (Trazodone Hcl 25 Mg Halftab) 25 mg PO BEDTIME MRX1 PRN PRN Reason: Insomnia Last Admin: 04/21/24 02:15 Dose: 25 mg Allergies Allergies Allergy/AdvReac Type Severity Reaction Status Date / Time adhesive AdvReac Unknown Verified 04/13/24 23:47 aspirin AdvReac Unknown Verified 04/13/24 23:47 epinephrine AdvReac Unknown Verified 04/13/24 23:47 Assessment & Plan Assessment & Plan (1) Bipolar 1 disorder: Status: Acute Code(s): F31.9 - Bipolar disorder, unspecified (2) PTSD (post-traumatic stress disorder): Status: Acute Code(s): F43.10 - Post-traumatic stress disorder, unspecified (3) COPD (chronic obstructive pulmonary disease): Status: Acute Code(s): J44.9 - Chronic obstructive pulmonary disease, unspecified (4) Intentional overdose of drug in tablet form: Status: Acute Code(s): T50.902A - Poisoning by unspecified drugs, medicaments and biological substances, intentional self-harm, initial encounter Plan The patient is a 78-year-old single female, who lives on her own, with history of bipolar disorder and PTSD, chronic SI, chronically prolonged QTC, COPD, pacemaker cholecystectomy, TIAs who was recently discharged from on 04/02 who presents now following suicide attempt by overdose on trazodone. Patient reports that when she was last discharged, she was doing well; she said she continued to take her medication without a problem. This past week however she started feeling sad for no clear reason; she reports she has stops sleeping well and had PTSD flashbacks and impulsively took an overdose of trazodone. Patient felt ill and wanted to call crisis for help however did not have her phone so she pressed her life Alert button and was brought to the hospital. Patient denies any substance abuse. Patient expressing regret over incident. PLAN: CV Q 15 minute checks Restart home meds Discussed safety at home with team, outpatient supports Clonazepam 0.5 mg b.i.d. p.r.n. Clonidine 0.2 mg b.i.d. p.r.n. Dabigartran 150mg BID Lamictal Zyprexa 15 mg q.h.s. Trazodone 50 mg with repeat Reason for continued inpatient stay Substantial Risk for: inability to function, rapid decompensation and med/psych decompensation Time Spent With Patient Time: Total time managing care of this patient today _20___ minutes.
[2024-04-22 20:00] VITALS: BP 133/74; PULSE 85; RESP 18; TEMP 37; O2SAT 95
[2024-04-22] MEDS: OLANZapine 10 MG TABLET PO (20:12)
[2024-04-23 07:00] VITALS: BMI 21.7
[2024-04-23 08:00] VITALS: BP 142/78; PULSE 81; RESP 18; TEMP 36; O2SAT 95
[2024-04-23] MEDS: Dabigatran Etexilate Mesylate 150 MG CAPSULE PO ×2 (08:36→20:05)
[2024-04-23] MEDS: lamoTRIgine 25 MG TABLET 50 MG PO ×2 (08:36→20:05)
--- NOTE | 2024-04-23 15:21 | P.PNPSI_ITS ---
Subjective Subjective Date of Service: 04/23/24 Reason For Visit: SA Subjective Notes: Conditional Voluntary Healthcare Proxy: Yes Interim History: The nursing staff reported the patient had been pleasant cooperative, she slept well last night. She reported that she is feeling ready to go back home. On team today we discussed that there is a constant cognitive deterioration for the last 2 year that we had been treating her. Today on interview we discussed and the patient was in agreement to start a low dose of Aricept to prevent more cognitive impairment. Mental Status Exam Mental Status Exam Patient Appearance: Well Grooomed and Appropriate Patient Orientation: Person and Situation Level of Consciousness: Awake and Appropriate Patient Behavior: Guarded and Passive Mood Description: Withdrawn Affect Description: Constricted Patient Cognition Impaired: Yes Ability to Follow Directions: Good Speech Pattern: Clear Hallucinations: None Delusions: Not Present Thought Process: Distracted and Slowed Thinking Thought Content: positive for [place] and positive for Poverty of Content Judgement: Fair Diagnostics Vital Signs (24Hr): Vital Signs - 24 hr 04/22/24 20:00 04/23/24 08:00 Temperature 98.6 F 96.8 F Pulse Rate 85 81 Respiratory Rate 18 18 Blood Pressure 133/74 142/78 H Pulse Oximetry 95 95 Oxygen Delivery Method Room Air Room Air BMI result Body Mass Index 21.7 Labs 04/14/24 00:07 04/15/24 08:29 Imaging Radiology Impressions: ITS Impressions Head CT 04/17/24 02:34 IMPRESSION: 1. No acute intracranial abnormalities. 2. Mild chronic microangiopathic ischemic changes of the brain. 3. Intracranial atherosclerosis. Electronically signed by: Dean Ambrosio MD 04/17/2024 06:53 AM EDT Medications Medications Current Medications Acetaminophen (Acetaminophen 325 Mg Tablet) 650 mg PO Q6H PRN PRN Reason: Headache/Pain Mild Scale (1-3) Last Admin: 04/15/24 09:22 Dose: 650 mg Al Hydroxide/Mg Hydroxide (Magnesium Hydrox/Alum Hydrox 30 Ml Oral.Susp) 30 ml PO Q6H PRN PRN Reason: Heartburn/Nausea Last Admin: 04/19/24 07:08 Dose: 30 ml Dabigatran (Dabigatran Etexilate Mesylate 150 Mg Capsule) 150 mg PO BID [facility] Last Admin: 04/23/24 08:36 Dose: 150 mg Lamotrigine (Lamotrigine 25 Mg Tablet) 50 mg PO BEDTIME [facility] Last Admin: 04/22/24 20:12 Dose: 50 mg Lamotrigine (Lamotrigine 25 Mg Tablet) 50 mg PO DAILY [facility] Last Admin: 04/23/24 08:36 Dose: 50 mg Magnesium Hydroxide (Milk Of Magnesia 30 Ml Oral.Susp) 30 ml PO DAILY PRN PRN Reason: Constipation Nicotine Polacrilex (Nicotine Polacrilex 2 Mg Gum) 4 mg BUCCAL Q2H PRN PRN Reason: Nicotine Cravings Olanzapine (Olanzapine 10 Mg Tablet) 10 mg PO BEDTIME [facility] Last Admin: 04/22/24 20:12 Dose: 10 mg Trazodone HCl (Trazodone Hcl 25 Mg Halftab) 25 mg PO BEDTIME MRX1 PRN PRN Reason: Insomnia Last Admin: 04/21/24 02:15 Dose: 25 mg Allergies Allergies Allergy/AdvReac Type Severity Reaction Status Date / Time adhesive AdvReac Unknown Verified 04/13/24 23:47 aspirin AdvReac Unknown Verified 04/13/24 23:47 epinephrine AdvReac Unknown Verified 04/13/24 23:47 Assessment & Plan Assessment & Plan (1) Bipolar 1 disorder: Status: Acute Code(s): F31.9 - Bipolar disorder, unspecified (2) PTSD (post-traumatic stress disorder): Status: Acute Code(s): F43.10 - Post-traumatic stress disorder, unspecified (3) COPD (chronic obstructive pulmonary disease): Status: Acute Code(s): J44.9 - Chronic obstructive pulmonary disease, unspecified (4) Intentional overdose of drug in tablet form: Status: Acute Code(s): T50.902A - Poisoning by unspecified drugs, medicaments and biological substances, intentional self-harm, initial encounter Plan The patient is a 78-year-old single female, who lives on her own, with history of bipolar disorder and PTSD, chronic SI, chronically prolonged QTC, COPD, pacemaker cholecystectomy, TIAs who was recently discharged from on 04/02 who presents now following suicide attempt by overdose on trazodone. Patient reports that when she was last discharged, she was doing well; she said she continued to take her medication without a problem. This past week however she started feeling sad for no clear reason; she reports she has stops sleeping well and had PTSD flashbacks and impulsively took an overdose of trazodone. Patient felt ill and wanted to call crisis for help however did not have her phone so she pressed her life Alert button and was brought to the hospital. Patient denies any substance abuse. Patient expressing regret over incident. PLAN: CV Q 15 minute checks Restart home meds Discussed safety at home with team, outpatient supports Clonazepam 0.5 mg b.i.d. p.r.n. Clonidine 0.2 mg b.i.d. p.r.n. Dabigartran 150mg BID Lamictal Zyprexa 15 mg q.h.s. Trazodone 50 mg with repeat Start Aricept 5 mg p.o. q.h.s. on April 23 Reason for continued inpatient stay Substantial Risk for: inability to function, rapid decompensation and med/psych decompensation Time Spent With Patient Time: Total time managing care of this patient today __20__ minutes.
[2024-04-23 20:00] VITALS: BP 151/70; PULSE 75; RESP 18; TEMP 36.9; O2SAT 96
[2024-04-23] MEDS: OLANZapine 10 MG TABLET PO (20:05)
[2024-04-24] MEDS: Acetaminophen 325 MG TABLET 650 MG PO ×2 (00:30→21:05)
[2024-04-24] MEDS: traZODone HCL 25 MG HALFTAB PO ×3 (00:30→21:06)
[2024-04-24 08:00] VITALS: BP 128/67; PULSE 99; RESP 18; TEMP 36.2; O2SAT 94
[2024-04-24] MEDS: lamoTRIgine 25 MG TABLET 50 MG PO ×2 (09:14→21:05)
[2024-04-24] MEDS: Dabigatran Etexilate Mesylate 150 MG CAPSULE PO ×2 (09:14→21:05)
--- NOTE | 2024-04-24 13:30 | P.PNPSI_ITS ---
Subjective Subjective Date of Service: 04/24/24 Reason For Visit: SA Subjective Notes: Conditional Voluntary Interim History: The nursing staff reported the patient had been cooperative pleasant, a little anxious in the evening. She slept only 4 hours. On interview the patient reports that she had poor sleep and she is in agreement increase Zyprexa to 50 mg p.o. q.h.s.. The social worker palliative care reported that we are going to discharge her next Saturday. Mental Status Exam Mental Status Exam Patient Appearance: Appropriate Patient Orientation: Person and Situation Level of Consciousness: Awake and Appropriate Patient Behavior: Guarded and Passive Mood Description: Withdrawn Affect Description: Constricted Patient Cognition Impaired: Yes Ability to Follow Directions: Good Speech Pattern: Clear Hallucinations: None Delusions: Not Present Thought Process: Distracted and Slowed Thinking Thought Content: positive for [place] and positive for Poverty of Content Judgement: Fair Diagnostics Vital Signs (24Hr): Vital Signs - 24 hr 04/23/24 20:00 04/24/24 08:00 Temperature 98.4 F 97.1 F Pulse Rate 75 99 Respiratory Rate 18 18 Blood Pressure 151/70 H 128/67 Pulse Oximetry 96 94 Oxygen Delivery Method Room Air Room Air BMI result Body Mass Index 21.7 Labs 04/14/24 00:07 04/15/24 08:29 Imaging Radiology Impressions: ITS Impressions Head CT 04/17/24 02:34 IMPRESSION: 1. No acute intracranial abnormalities. 2. Mild chronic microangiopathic ischemic changes of the brain. 3. Intracranial atherosclerosis. Electronically signed by: Dean Ambrosio MD 04/17/2024 06:53 AM EDT RP Shoulder X-Ray 04/23/24 10:04 IMPRESSION: No evidence of acute fracture or dislocation in the left shoulder. Mild changes of arthropathy at the left acromioclavicular articulation. Electronically signed by: Josi Vizcarra MD 04/23/2024 04:57 PM EDT RP Medications Medications Current Medications Acetaminophen (Acetaminophen 325 Mg Tablet) 650 mg PO Q6H PRN PRN Reason: Headache/Pain Mild Scale (1-3) Last Admin: 04/24/24 00:30 Dose: 650 mg Al Hydroxide/Mg Hydroxide (Magnesium Hydrox/Alum Hydrox 30 Ml Oral.Susp) 30 ml PO Q6H PRN PRN Reason: Heartburn/Nausea Last Admin: 04/19/24 07:08 Dose: 30 ml Dabigatran (Dabigatran Etexilate Mesylate 150 Mg Capsule) 150 mg PO BID [facility] Last Admin: 04/24/24 09:14 Dose: 150 mg Lamotrigine (Lamotrigine 25 Mg Tablet) 50 mg PO BEDTIME [facility] Last Admin: 04/23/24 20:05 Dose: 50 mg Lamotrigine (Lamotrigine 25 Mg Tablet) 50 mg PO DAILY [facility] Last Admin: 04/24/24 09:14 Dose: 50 mg Magnesium Hydroxide (Milk Of Magnesia 30 Ml Oral.Susp) 30 ml PO DAILY PRN PRN Reason: Constipation Nicotine Polacrilex (Nicotine Polacrilex 2 Mg Gum) 4 mg BUCCAL Q2H PRN PRN Reason: Nicotine Cravings Olanzapine (Olanzapine 10 Mg Tablet) 10 mg PO BEDTIME [facility] Last Admin: 04/23/24 20:05 Dose: 10 mg Trazodone HCl (Trazodone Hcl 25 Mg Halftab) 25 mg PO BEDTIME MRX1 PRN PRN Reason: Insomnia Last Admin: 04/24/24 02:53 Dose: 25 mg Allergies Allergies Allergy/AdvReac Type Severity Reaction Status Date / Time adhesive AdvReac Unknown Verified 04/13/24 23:47 aspirin AdvReac Unknown Verified 04/13/24 23:47 epinephrine AdvReac Unknown Verified 04/13/24 23:47 Assessment & Plan Assessment & Plan (1) Bipolar 1 disorder: Status: Acute Code(s): F31.9 - Bipolar disorder, unspecified (2) PTSD (post-traumatic stress disorder): Status: Acute Code(s): F43.10 - Post-traumatic stress disorder, unspecified (3) COPD (chronic obstructive pulmonary disease): Status: Acute Code(s): J44.9 - Chronic obstructive pulmonary disease, unspecified (4) Intentional overdose of drug in tablet form: Status: Acute Code(s): T50.902A - Poisoning by unspecified drugs, medicaments and biological substances, intentional self-harm, initial encounter Plan The patient is a 78-year-old single female, who lives on her own, with history of bipolar disorder and PTSD, chronic SI, chronically prolonged QTC, COPD, pacemaker cholecystectomy, TIAs who was recently discharged from on 09/26 who presents now following suicide attempt by overdose on trazodone. Patient reports that when she was last discharged, she was doing well; she said she continued to take her medication without a problem. This past week however she started feeling sad for no clear reason; she reports she has stops sleeping well and had PTSD flashbacks and impulsively took an overdose of trazodone. Patient felt ill and wanted to call crisis for help however did not have her phone so she pressed her life Alert button and was brought to the hospital. Patient denies any substance abuse. Patient expressing regret over incident. PLAN: CV Q 15 minute checks Restart home meds Discussed safety at home with team, outpatient supports Clonazepam 0.5 mg b.i.d. p.r.n. Clonidine 0.2 mg b.i.d. p.r.n. Dabigartran 150mg BID Lamictal Zyprexa 15 mg q.h.s. Trazodone 50 mg with repeat Start Aricept 5 mg p.o. q.h.s. on April 23 Reason for continued inpatient stay Substantial Risk for: inability to function, rapid decompensation and med/psych decompensation Time Spent With Patient Time: Total time managing care of this patient today _20___ minutes.
[2024-04-24 20:00] VITALS: BP 122/75; PULSE 74; RESP 20; TEMP 36; O2SAT 96
[2024-04-24] MEDS: OLANZapine 7.5 MG TABLET 15 MG PO (21:04)
[2024-04-25] MEDS: traZODone HCL 25 MG HALFTAB PO ×2 (00:17→20:49)
--- NOTE | 2024-04-25 06:42 | P.PNPSI_ITS ---
Subjective Subjective Date of Service: 04/25/24 Reason For Visit: SA Subjective Notes: Conditional Voluntary Interim History: The nursing staff reported the patient had been pleasant, compliant with medications. Yesterday we increase Zyprexa to 15 mg p.o. q.h.s. since she complained poor sleep. Today she reported mild sedation but overall she adamantly denies active suicidal ideation. She slept poorly last night and she agreed to keep on the same dose of Zyprexa to avoid over-sedation. Mental Status Exam Mental Status Exam Patient Appearance: Appropriate Patient Orientation: Person and Situation Level of Consciousness: Awake and Appropriate Patient Behavior: Guarded and Passive Mood Description: Withdrawn Affect Description: Constricted Patient Cognition Impaired: Yes Ability to Follow Directions: Good Speech Pattern: Clear Hallucinations: None Delusions: Not Present Thought Process: Distracted and Slowed Thinking Thought Content: positive for [place] and positive for Poverty of Content Judgement: Fair Diagnostics Vital Signs (24Hr): Vital Signs - 24 hr 04/24/24 08:00 04/24/24 20:00 Temperature 97.1 F 96.8 F Pulse Rate 99 74 Respiratory Rate 18 20 Blood Pressure 128/67 122/75 Pulse Oximetry 94 96 Oxygen Delivery Method Room Air Room Air BMI result Body Mass Index 21.7 Labs 04/14/24 00:07 04/15/24 08:29 Imaging Radiology Impressions: ITS Impressions Head CT 04/17/24 02:34 IMPRESSION: 1. No acute intracranial abnormalities. 2. Mild chronic microangiopathic ischemic changes of the brain. 3. Intracranial atherosclerosis. Electronically signed by: Dean Ambrosio MD 04/17/2024 06:53 AM EDT Shoulder X-Ray 04/23/24 10:04 IMPRESSION: No evidence of acute fracture or dislocation in the left shoulder. Mild changes of arthropathy at the left acromioclavicular articulation. Electronically signed by: Josi Vizcarra MD 04/23/2024 04:57 PM EDT Medications Medications Current Medications Acetaminophen (Acetaminophen 325 Mg Tablet) 650 mg PO Q6H PRN PRN Reason: Headache/Pain Mild Scale (1-3) Last Admin: 04/24/24 21:05 Dose: 650 mg Al Hydroxide/Mg Hydroxide (Magnesium Hydrox/Alum Hydrox 30 Ml Oral.Susp) 30 ml PO Q6H PRN PRN Reason: Heartburn/Nausea Last Admin: 04/19/24 07:08 Dose: 30 ml Dabigatran (Dabigatran Etexilate Mesylate 150 Mg Capsule) 150 mg PO BID [facility] Last Admin: 04/24/24 21:05 Dose: 150 mg Lamotrigine (Lamotrigine 25 Mg Tablet) 50 mg PO BEDTIME [facility] Last Admin: 04/24/24 21:05 Dose: 50 mg Lamotrigine (Lamotrigine 25 Mg Tablet) 50 mg PO DAILY [facility] Last Admin: 04/24/24 09:14 Dose: 50 mg Magnesium Hydroxide (Milk Of Magnesia 30 Ml Oral.Susp) 30 ml PO DAILY PRN PRN Reason: Constipation Nicotine Polacrilex (Nicotine Polacrilex 2 Mg Gum) 4 mg BUCCAL Q2H PRN PRN Reason: Nicotine Cravings Olanzapine (Olanzapine 7.5 Mg Tablet) 15 mg PO BEDTIME [facility] Last Admin: 04/24/24 21:04 Dose: 15 mg Trazodone HCl (Trazodone Hcl 25 Mg Halftab) 25 mg PO BEDTIME MRX1 PRN PRN Reason: Insomnia Last Admin: 04/25/24 00:17 Dose: 25 mg Allergies Allergies Allergy/AdvReac Type Severity Reaction Status Date / Time adhesive AdvReac Unknown Verified 04/13/24 23:47 aspirin AdvReac Unknown Verified 04/13/24 23:47 epinephrine AdvReac Unknown Verified 04/13/24 23:47 Assessment & Plan Assessment & Plan (1) Bipolar 1 disorder: Status: Acute Code(s): F31.9 - Bipolar disorder, unspecified (2) PTSD (post-traumatic stress disorder): Status: Acute Code(s): F43.10 - Post-traumatic stress disorder, unspecified (3) COPD (chronic obstructive pulmonary disease): Status: Acute Code(s): J44.9 - Chronic obstructive pulmonary disease, unspecified (4) Intentional overdose of drug in tablet form: Status: Acute Code(s): T50.902A - Poisoning by unspecified drugs, medicaments and biological substances, intentional self-harm, initial encounter Plan The patient is a 78-year-old single female, who lives on her own, with history of bipolar disorder and PTSD, chronic SI, chronically prolonged QTC, COPD, pacemaker cholecystectomy, TIAs who was recently discharged from on 04/02 who presents now following suicide attempt by overdose on trazodone. Patient reports that when she was last discharged, she was doing well; she said she continued to take her medication without a problem. This past week however she started feeling sad for no clear reason; she reports she has stops sleeping well and had PTSD flashbacks and impulsively took an overdose of trazodone. Patient felt ill and wanted to call crisis for help however did not have her phone so she pressed her life Alert button and was brought to the hospital. Patient denies any substance abuse. Patient expressing regret over incident. PLAN: CV Q 15 minute checks Restart home meds Discussed safety at home with team, outpatient supports Clonazepam 0.5 mg b.i.d. p.r.n. Clonidine 0.2 mg b.i.d. p.r.n. Dabigartran 150mg BID Lamictal Zyprexa 15 mg q.h.s. Trazodone 50 mg with repeat Start Aricept 5 mg p.o. q.h.s. on April 23 Informed Consent: understands Reason for continued inpatient stay Substantial Risk for: inability to function, rapid decompensation and med/psych decompensation Time Spent With Patient Time: Total time managing care of this patient today __20__ minutes.
[2024-04-25 08:00] VITALS: BP 124/60; PULSE 85; RESP 18; TEMP 36.4; O2SAT 94
[2024-04-25] MEDS: lamoTRIgine 25 MG TABLET 50 MG PO ×2 (08:38→20:47)
[2024-04-25] MEDS: Dabigatran Etexilate Mesylate 150 MG CAPSULE PO ×2 (08:38→20:47)
[2024-04-25] MEDS: clonazePAM 0.5 MG TABLET PO ×2 (13:10→20:48)
[2024-04-25 20:00] VITALS: BP 112/66; PULSE 78; RESP 18; TEMP 36.2; O2SAT 94
[2024-04-25] MEDS: OLANZapine 7.5 MG TABLET 15 MG PO (20:47)
[2024-04-25] MEDS: Acetaminophen 325 MG TABLET 650 MG PO (20:48)
--- NOTE | 2024-04-26 06:28 | P.PNPSI_ITS ---
Subjective Subjective Date of Service: 04/26/24 Reason For Visit: SA Subjective Notes: Conditional Voluntary Interim History: The nursing staff reported the patient had been anxious, slept poorly the day before but Zyprexa was increased. Last night was the 1st night that she slept more night long. On interview the patient denies suicidal thoughts, she feels better and she was pleased that for the 1st time she slept well. We are going to keep Zyprexa 15 mg p.o. q.h.s.. Mental Status Exam Mental Status Exam Patient Appearance: Appropriate Patient Orientation: Person, Place and Situation Level of Consciousness: Awake and Appropriate Patient Behavior: Guarded and Passive Mood Description: Calm Affect Description: Constricted Patient Cognition Impaired: Yes Ability to Follow Directions: Good Speech Pattern: Clear Hallucinations: None Delusions: Not Present Thought Process: Distracted and Slowed Thinking Thought Content: positive for [place] and positive for Poverty of Content Judgement: Fair Diagnostics Vital Signs (24Hr): Vital Signs - 24 hr 04/25/24 08:00 04/25/24 20:00 Temperature 97.5 F 97.1 F Pulse Rate 85 78 Respiratory Rate 18 18 Blood Pressure 124/60 112/66 Pulse Oximetry 94 94 Oxygen Delivery Method Room Air Room Air BMI result Body Mass Index 21.7 Labs 04/14/24 00:07 04/15/24 08:29 Imaging Radiology Impressions: ITS Impressions Head CT 04/17/24 02:34 IMPRESSION: 1. No acute intracranial abnormalities. 2. Mild chronic microangiopathic ischemic changes of the brain. 3. Intracranial atherosclerosis. Electronically signed by: Dean Ambrosio MD 04/17/2024 06:53 AM EDT Shoulder X-Ray 04/23/24 10:04 IMPRESSION: No evidence of acute fracture or dislocation in the left shoulder. Mild changes of arthropathy at the left acromioclavicular articulation. Electronically signed by: Josi Vizcarra MD 04/23/2024 04:57 PM EDT Medications Medications Current Medications Acetaminophen (Acetaminophen 325 Mg Tablet) 650 mg PO Q6H PRN PRN Reason: Headache/Pain Mild Scale (1-3) Last Admin: 04/25/24 20:48 Dose: 650 mg Al Hydroxide/Mg Hydroxide (Magnesium Hydrox/Alum Hydrox 30 Ml Oral.Susp) 30 ml PO Q6H PRN PRN Reason: Heartburn/Nausea Last Admin: 04/19/24 07:08 Dose: 30 ml Clonazepam (Clonazepam 0.5 Mg Tablet) 0.5 mg PO BID PRN PRN Reason: Anxiety Last Admin: 04/25/24 20:48 Dose: 0.5 mg Dabigatran (Dabigatran Etexilate Mesylate 150 Mg Capsule) 150 mg PO BID [facility] Last Admin: 04/25/24 20:47 Dose: 150 mg Lamotrigine (Lamotrigine 25 Mg Tablet) 50 mg PO BEDTIME [facility] Last Admin: 04/25/24 20:47 Dose: 50 mg Lamotrigine (Lamotrigine 25 Mg Tablet) 50 mg PO DAILY [facility] Last Admin: 04/25/24 08:38 Dose: 50 mg Magnesium Hydroxide (Milk Of Magnesia 30 Ml Oral.Susp) 30 ml PO DAILY PRN PRN Reason: Constipation Nicotine Polacrilex (Nicotine Polacrilex 2 Mg Gum) 4 mg BUCCAL Q2H PRN PRN Reason: Nicotine Cravings Olanzapine (Olanzapine 7.5 Mg Tablet) 15 mg PO BEDTIME [facility] Last Admin: 04/25/24 20:47 Dose: 15 mg Trazodone HCl (Trazodone Hcl 25 Mg Halftab) 25 mg PO BEDTIME MRX1 PRN PRN Reason: Insomnia Last Admin: 04/25/24 20:49 Dose: 25 mg Allergies Allergies Allergy/AdvReac Type Severity Reaction Status Date / Time adhesive AdvReac Unknown Verified 04/13/24 23:47 aspirin AdvReac Unknown Verified 04/13/24 23:47 epinephrine AdvReac Unknown Verified 04/13/24 23:47 Assessment & Plan Assessment & Plan (1) Bipolar 1 disorder: Status: Acute Code(s): F31.9 - Bipolar disorder, unspecified (2) PTSD (post-traumatic stress disorder): Status: Acute Code(s): F43.10 - Post-traumatic stress disorder, unspecified (3) COPD (chronic obstructive pulmonary disease): Status: Acute Code(s): J44.9 - Chronic obstructive pulmonary disease, unspecified (4) Intentional overdose of drug in tablet form: Status: Acute Code(s): T50.902A - Poisoning by unspecified drugs, medicaments and biological substances, intentional self-harm, initial encounter Plan The patient is a 78-year-old single female, who lives on her own, with history of bipolar disorder and PTSD, chronic SI, chronically prolonged QTC, COPD, pacemaker cholecystectomy, TIAs who was recently discharged from on 04/02 who presents now following suicide attempt by overdose on trazodone. Patient reports that when she was last discharged, she was doing well; she said she continued to take her medication without a problem. This past week however she started feeling sad for no clear reason; she reports she has stops sleeping well and had PTSD flashbacks and impulsively took an overdose of trazodone. Patient felt ill and wanted to call crisis for help however did not have her phone so she pressed her life Alert button and was brought to the hospital. Patient denies any substance abuse. Patient expressing regret over incident. PLAN: CV Q 15 minute checks Restart home meds Discussed safety at home with team, outpatient supports Clonazepam 0.5 mg b.i.d. p.r.n. Clonidine 0.2 mg b.i.d. p.r.n. Dabigartran 150mg BID Lamictal Zyprexa 15 mg q.h.s. Trazodone 50 mg with repeat Start Aricept 5 mg p.o. q.h.s. on April 23 Reason for continued inpatient stay Substantial Risk for: inability to function, rapid decompensation and med/psych decompensation Time Spent With Patient Time: Total time managing care of this patient today __20__ minutes.
[2024-04-26 08:43] VITALS: BP 124/68; PULSE 88; RESP 18; TEMP 36.8; O2SAT 95
[2024-04-26] MEDS: lamoTRIgine 25 MG TABLET 50 MG PO ×2 (08:48→20:45)
[2024-04-26] MEDS: Dabigatran Etexilate Mesylate 150 MG CAPSULE PO ×2 (08:48→20:45)
[2024-04-26 20:00] VITALS: BP 128/73; PULSE 77; RESP 18; TEMP 36; O2SAT 95
[2024-04-26] MEDS: OLANZapine 7.5 MG TABLET 15 MG PO (20:45)
[2024-04-26] MEDS: traZODone HCL 25 MG HALFTAB PO (20:45)
[2024-04-26] MEDS: clonazePAM 0.5 MG TABLET PO (20:45)
[2024-04-27 08:00] VITALS: BP 127/72; PULSE 88; RESP 16; TEMP 36.9; O2SAT 100
[2024-04-27] MEDS: lamoTRIgine 25 MG TABLET 50 MG PO (09:05)
[2024-04-27] MEDS: Dabigatran Etexilate Mesylate 150 MG CAPSULE PO (09:06)
--- NOTE | 2024-04-27 11:59 | P.DS_ITS ---
DS: Providers Provider Date of Service: 04/27/24 Date of admission: 04/14/24 12:07 Date of discharge: 04/27/24 Primary care physician: Unknown Physician DS: Diagnosis Discharge Diagnosis (1) Bipolar 1 disorder: Status: Acute (2) PTSD (post-traumatic stress disorder): Status: Acute (3) COPD (chronic obstructive pulmonary disease): Status: Acute (4) Intentional overdose of drug in tablet form: Status: Acute DS: Medications Discharge Medications Home Medications: Previous Rx's ?Medication ?Instructions ?Recorded clonazepam 0.5 mg tablet 0.5 mg PO BID PRN anxiety attack 01/22/24 15 days #30 tabs clonidine HCl 0.2 mg tablet 0.2 mg PO BID PRN panic attack 30 04/02/24 days #60 tabs dabigatran etexilate 150 mg 150 mg PO BID 30 days #60 caps 04/02/24 capsule (Pradaxa) lamotrigine 25 mg tablet 25 mg PO DIRECTED 30 days #90 04/02/24 tabs olanzapine 15 mg tablet 15 mg PO BEDTIME 30 days #30 tabs 04/02/24 trazodone 50 mg tablet See Rx Instructions .Route 04/02/24 .COMPLEX PRN Insomnia 30 days #45 tabs Mental Status Exam Mental Status Exam Patient Appearance: Well Grooomed and Appropriate Patient Orientation: Person and Situation Level of Consciousness: Awake and Appropriate Patient Behavior: Guarded and Passive Mood Description: Withdrawn Affect Description: Constricted Patient Cognition Impaired: Yes Ability to Follow Directions: Good Speech Pattern: Clear Hallucinations: None Delusions: Not Present Thought Process: Distracted Thought Content: positive for [place] and positive for Poverty of Content Judgement: Fair Data Data Completed and Pending Completed studies during hospitalization [Text1]: 04/19/24 Unknown Urine clean catch - Clean Catch Midstream Urine Culture - Final Imaging Diagnostic Imaging Impressions Head CT 04/17/24 02:34 IMPRESSION: 1. No acute intracranial abnormalities. 2. Mild chronic microangiopathic ischemic changes of the brain. 3. Intracranial atherosclerosis. Electronically signed by: Dean Ambrosio MD 04/17/2024 06:53 AM EDT Shoulder X-Ray 04/23/24 10:04 IMPRESSION: No evidence of acute fracture or dislocation in the left shoulder. Mild changes of arthropathy at the left acromioclavicular articulation. Electronically signed by: Josi Vizcarra MD 04/23/2024 04:57 PM EDT RP DS: Summary Hospital Course Hospital Course: The patient is a 78-year-old female with bipolar disorder very well known by this team since she had been admitted several times into the hospital for exacerbation of depression and suicidality. The current episode started a few weeks ago when she became noncompliant with medications should be relapse in her depression and she tried to commit suicide by overdosing on trazodone. She was rushed to the emergency room medically cleared and transferring to Psychiatry for psychiatric stabilization. Please see the HPI of the admission note for further details. On admission, we discussed risks, benefits, side-effects and alternatives and we kept her on Lamictal 50 mg p.o. b.i.d. and Zyprexa 10 mg p.o. q.h.s.. The patient reported no improvement of her sleep we started slow titration of Zyprexa to 15 mg p.o. q.h.s. with for tolerability and good sleep. The patient was able to contract for safety, she was able to participate in groups and she was future oriented. On this admission we review her previous [place] test and has seen a consistent d ecline in her cognition. She agreed to start Aricept 5 mg p.o. q.h.s. to target dementia. The patient was able to contract for safety and since she was willing to continue treatment as an outpatient discharge planning was discussed. Time spent discussing smoking cessation with patient: 3 to 10 minutes Status at Discharge Cognitive/behavioral status at discharge: At baseline Functional status at discharge: independent ambulation Overall status at discharge: patient is back to baseline Time Spent with Patient Time attestation: Total time managing care of this patient today _20___ minutes. Time spent: Less than 30 minutes Discharge Plan Discharge Anticipated Discharge Date/Time: 04/27/24 13:00 Patient Disposition: Home, Self-Care Discharge Diagnosis: Bipolar disorder type 1 most recent episode depressed severe. Referrals: Gage Amado APRN [Other] - 05/05/24 10:45 am [facility] [Other] - 04/30/24 11:00 am [facility] [Other] - 1 Week Jorge Mora MD [Physician] - 1 Week (We have contacted your providers office on your behalf and the office will contact you directly to schedule your follow up appointment. ) Discharge Medications: New lamotrigine 25 mg Tablet 50 mg PO BEDTIME 30 Days Qty: 60 0RF lamotrigine 25 mg Tablet 50 mg PO DAILY 30 Days Qty: 60 0RF Continued trazodone 50 mg Tablet See Rx Instructions .ROUTE .COMPLEX PRN (Reason: Insomnia) 30 Days Qty: 45 0RF Rx Instructions: take 1 or 1.5 tabs at bedtime as needed for insomnia clonazepam 0.5 mg tablet 0.5 mg PO BID PRN (Reason: anxiety attack) 15 Days Qty: 30 0RF Rx Instructions: [facility] states [facility]23 for 30d supply clonidine HCl 0.2 mg tablet 0.2 mg PO BID PRN (Reason: panic attack) 30 Days Qty: 60 0RF olanzapine 15 mg tablet 15 mg PO BEDTIME 30 Days Qty: 30 0RF dabigatran etexilate [Pradaxa] 150 mg Capsule 150 mg PO BID 30 Days Qty: 60 0RF Discontinued lamotrigine 25 mg Tablet 25 mg PO DIRECTED 30 Days Qty: 90 0RF Rx Instructions: 1 tablet in the am 2 tablets at bedtime Discharge Orders: Discharge Order (Routine); Ordered 04/27/24 Ordered By: James Garcia Diet: Advance to usual diet Activity on Discharge: As tolerated Stand Alone Forms: Patient Portal Discharge page Print Language: Citizen Of [place] Care Plan Goals: Care plan goals achieved in this admission Health Concerns: Continue treatment with primary care physician Plan of Treatment: Continue treatment with outpatient providers. Assessment: The patient is an elderly female with a past history of bipolar disorder with several prior admissions for exacerbation of mood symptoms. This episode started a few days ago after she had become noncompliant with medications and try to overdose of trazodone in a suicidal attempt. She was restarted on her medications with resolution of her symptoms able to be discharged to the community no safety concerns at this moment.
== END 2024-04-27 13:40 | disposition home or self-care (01) | DRG 885 ==
LOC: HO.ED 04-14 01:01 → HO.PM5 04-14 12:19 → HO.PGERI 04-21 14:23
PROVIDERS: Psychiatry & Neurology Psychiatry; Admitting Provider Psychiatry & Neurology Psychiatry; Emergency Provider Emergency Medicine; Visit Provider Psychiatry & Neurology Psychiatry
DX: F31.4 Bipolar disorder, current episode depressed, severe, without psychotic features (principal); R45.851 Suicidal ideations; F17.210 Nicotine dependence, cigarettes, uncomplicated; Z71.6 Tobacco abuse counseling; Z95.0 Presence of cardiac pacemaker; J44.9 Chronic obstructive pulmonary disease, unspecified; Z86.73 Personal history of transient ischemic attack (TIA), and cerebral infarction without residual deficits; Z91.51 Personal history of suicidal behavior; Z79.899 Other long term (current) drug therapy
CPT/HCPCS: 36415; 70450; 73030; 80048; 80053; 80143; 80179; 80307; 81001; 83735; 84484; 85025; 87086; 93005; 97161; 99285; J0737; J3475; S9485

== ENCOUNTER → 2024-04-13 23:45 | Outpatient (BNV) | payer MEDICARE, SELFPAY | PROVIDERS: Emergency Provider Emergency Medicine; Visit Provider Internal Medicine Cardiovascular Disease | DX: R94.31 Abnormal electrocardiogram [ECG] [EKG] (principal) | CPT/HCPCS: 93010 ==

== ENCOUNTER → 2024-04-14 01:45 | Outpatient (BNV) | payer MEDICARE, SELFPAY | PROVIDERS: Emergency Provider Emergency Medicine; Visit Provider Internal Medicine Cardiovascular Disease | DX: R94.31 Abnormal electrocardiogram [ECG] [EKG] (principal) | CPT/HCPCS: 93010 ==

== ENCOUNTER → 2024-04-14 12:07 | Outpatient (BNV) | payer MEDICARE, SELFPAY | PROVIDERS: Admitting Provider Psychiatry & Neurology Psychiatry; Emergency Provider Emergency Medicine; Visit Provider Psychiatry & Neurology Psychiatry | DX: F31.4 Bipolar disorder, current episode depressed, severe, without psychotic features (principal); T50.902A Poisoning by unspecified drugs, medicaments and biological substances, intentional self-harm, initial encounter; F43.11 Post-traumatic stress disorder, acute; J44.9 Chronic obstructive pulmonary disease, unspecified | CPT/HCPCS: 90792; 99231; 99232; 99238 ==

== ENCOUNTER → 2024-04-14 12:07 | Outpatient (BNV) | payer MEDICARE, SELFPAY | PROVIDERS: Admitting Provider Psychiatry & Neurology Psychiatry; Emergency Provider Emergency Medicine; Visit Provider Student in an Organized Health Care Education/Training Program | DX: F31.4 Bipolar disorder, current episode depressed, severe, without psychotic features (principal); W19.XXXA Unspecified fall, initial encounter | CPT/HCPCS: 99499 ==

== ENCOUNTER → 2024-04-14 12:07 | Outpatient (BNV) | payer MEDICARE, SELFPAY | PROVIDERS: Admitting Provider Psychiatry & Neurology Psychiatry; Emergency Provider Emergency Medicine; Visit Provider Psychiatry & Neurology Psychiatry | DX: F31.4 Bipolar disorder, current episode depressed, severe, without psychotic features (principal); T50.902A Poisoning by unspecified drugs, medicaments and biological substances, intentional self-harm, initial encounter; F43.11 Post-traumatic stress disorder, acute; J44.9 Chronic obstructive pulmonary disease, unspecified | CPT/HCPCS: 99232 ==

== ENCOUNTER 2024-08-07 18:46 | Emergency (ER) | payer MEDICARE, SELFPAY ==
--- NOTE | ~2024-08-07 | CT_ITS ---
CLINICAL HISTORY: trauma on thinners CT cervical spine without contrast Comparison: None Findings: Vertebral alignment is within normal limits. Multiple level degenerative disc, facet, and uncovertebral joint change. No acute fractures or dislocations. No acute findings on limited view of the intracranial contents. Soft tissues of the neck are normal. Lung apices are clear. IMPRESSION: No acute findings. This document has been electronically signed by: Herminio Medina MD on 08/07/2024 20:19:00
--- NOTE | ~2024-08-07 | CT_ITS ---
CLINICAL HISTORY: traum on thinners CT head without contrast Comparison: 04/17/2024 Findings: No new intra-axial mass, midline shift, hydrocephalus, or acute hemorrhage. There is moderate diffuse atrophy and white matter changes likely related to chronic microvascular ischemia.. The visualized paranasal sinuses and mastoid air cells are normal. The orbits are unremarkable. No skull fracture. IMPRESSION: 1. No acute intracranial findings. This document has been electronically signed by: Herminio Medina MD on 08/07/2024 20:20:24
[2024-08-07 18:54] VITALS: BP 147/71; PULSE 93; RESP 18; TEMP 37.1; O2SAT 96; BMI 24.2
[2024-08-07 19:04] VITALS: BP 152/81; PULSE 103; O2SAT 97
--- NOTE | 2024-08-07 19:44 | MHC.EDTECH ---
Pt assisted on/off bedpan by t/w and RN. Pt had a loose BM and Pt was cleaned and repositioned. Pt agreeable to purewick once return from ct scan.
--- NOTE | 2024-08-07 20:26 | PC.NURSE ---
multiple attempts for IV access. provider at bedside. pt states she would like to wait on the IV, her pain is tolerable and requested PO tylenol when scans are read. provider okayed, also okay to wait for labs
[2024-08-07 21:08] VITALS: BP 141/72; PULSE 82; RESP 18; TEMP 37; O2SAT 94
[2024-08-07] MEDS: Acetaminophen 325 MG TABLET 975 MG PO (21:10)
--- NOTE | 2024-08-07 21:42 | ED_ITS ---
HPI - Fall General Chief Complaint: Fall Stated Complaint: FALL W/ HEADSTRIKE, +THINNERS Time Seen by Provider: 08/07/24 19:23 Source: patient Limitations: no limitations History of Present Illness ED Provider: Gabriella Katz PA-C HPI Narrative: 79-year-old female with a history of bipolar disorder, depression, PTSD, COPD, hypertension, hyperlipidemia, who presents after fall. Patient states she was walking on a sidewalk, she missed the curb, she subsequently fell backwards striking her head. The patient did not lose consciousness she is not on blood thinners. Patient complains of neck pain and head pain where she struck the pavement, she states it is different than a headache. Denies dizziness, nausea, vomiting. Related Data Previous Rx's ?Medication ?Instructions ?Recorded clonazepam 0.5 mg tablet 0.5 mg PO BID PRN anxiety attack 04/27/24 15 days #30 tabs clonidine HCl 0.2 mg tablet 0.2 mg PO BID PRN panic attack 30 04/27/24 days #60 tabs dabigatran etexilate 150 mg 150 mg PO BID 30 days #60 caps 04/27/24 capsule (Pradaxa) lamotrigine 25 mg tablet 50 mg (2 x 25 mg) PO BEDTIME 30 04/27/24 days #60 tabs lamotrigine 25 mg tablet 50 mg (2 x 25 mg) PO DAILY 30 days 04/27/24 #60 tabs olanzapine 15 mg tablet 15 mg PO BEDTIME 30 days #30 tabs 04/27/24 trazodone 50 mg tablet See Rx Instructions .Route 04/27/24 .COMPLEX PRN Insomnia 30 days #45 tabs Allergies Allergy/AdvReac Type Severity Reaction Status Date / Time adhesive AdvReac Unknown Verified 08/07/24 18:56 aspirin AdvReac Unknown Verified 08/07/24 18:56 epinephrine AdvReac Unknown Verified 08/07/24 18:56 Review of Systems Review of Systems: Yes all other systems are reviewed and are negative Constitutional: Constitutional: Denies fatigue, Denies fever(s) and Reports headache(s) ENT: Denies dizziness, Reports headache(s) and Reports neck pain Cardiovascular: Cardiovascular: Denies chest pain, Denies palpitations and Denies dyspnea Respiratory: Respiratory: Denies dyspnea Gastrointestinal: Gastrointestinal: Denies nausea and Denies vomiting Musculoskeletal: Musculoskeletal: Reports neck pain Neurologic: Denies dizziness and Reports headache(s) Endocrine: Endocrine: Denies fatigue and Denies palpitations [facility] Past Medical History Attestation statement: The following information was validated with the patient. Medical History Bipolar 1 disorder Pacemaker FH: cholecystectomy Lung nodule Syncope Osteopenia Hyperparathyroidism C. difficile diarrhea Mitral valve prolapse Tobacco abuse TIA (transient ischemic attack) Prediabetes Hyperlipidemia Depression PTSD (post-traumatic stress disorder) Essential hypertension COPD (chronic obstructive pulmonary disease) Surgical History (Updated 05/05/24 @ 00:01 by Puneet Goodwin) History of appendectomy History of parathyroidectomy History of colectomy Social History Social History Household Members: None Household Members Other:: lives with self Housing: Apartment Do you presently have visiting nurse or other home services: No Alcohol intake: never Comment: 5 min safety checks. Patient Tobacco Use Status: Current everyday Tobacco user Tobacco use type: Cigarette Cigarette Packs Per Day: 4 Cigarettes Per Day: 80.0 Years Smoked: 20 e-Cigarette/Vaping Use: Never Used Second Hand Smoke Exposure: No Substance Use Type: Prescription Drugs and Caffiene Advance Directives: No Advance Directives Information Provided: No Advance Directives Date on File: 02/08/22 service: No Sexual orientation: Straight/Heterosexual Physical Exam Vital Signs: Vital Signs: Last Vital Signs Temp 98 F 08/07/24 22:31 Pulse 93 08/07/24 22:31 Resp 16 08/07/24 22:31 BP 116/52 L 08/07/24 22:31 Pulse Ox 94 08/07/24 22:31 O2 Del Method Room Air 08/07/24 22:31 BMI result Body Mass Index 24.2 Const: Other: Alert, no evidence of head trauma on exam Orientation/consciousness: patient oriented x3 Neck: Other: Full range of motion after collar removed Resp: Effort & Inspection: normal respiratory effort Cardio: Other: Normal peripheral perfusion Skin: Other: Warm dry no rash Neuro: General: patient oriented x3, no focal motor deficits and CN's II-XI intact bilaterally Psych: Other: Cooperative Medications Administered Discontinued Medications Generic Name Dose Route Start Last Admin Trade Name Freq PRN Reason Stop Dose Admin Acetaminophen 975 mg 08/07/24 20:59 08/07/24 21:10 Acetaminophen 325 Mg Tablet PO 08/07/24 21:00 975 mg ONCE ONE Administration Diazepam 2.5 mg 08/07/24 19:27 08/07/24 20:53 Diazepam 10 Mg/2 Ml Cartridge IVPUSH 08/07/24 19:28 Not Given STAT STA Acetaminophen 1,000 mg in 100 mls @ 400 mls/hr 08/07/24 19:27 08/07/24 20:53 Ofirmev IV 08/07/24 19:41 Not Given ONCE ONE Medical Decision Making Medical Decision Making MDM Narrative: 79-year-old female with a history of bipolar disorder, depression, PTSD, COPD, hypertension, hyperlipidemia, who presents after fall. Patient states she was walking on a sidewalk, she missed the curb, she subsequently fell backwards striking her head. The patient did not lose consciousness she is not on blood thinners. Patient complains of neck pain and head pain where she struck the pavement, she states it is different than a headache. Denies dizziness, nausea, vomiting. Problem: Psychiatric illness History: Per patient I have considered the following differential diagnoses: Intracranial hemorrhage, cervical spine injury, fracture, dislocation, contusion Plan: Patient has sustained a mechanical fall, we will be scanning her head and neck. I have low suspicion for intracranial hemorrhage given she is neurologically intact, she is not altered she is not actively vomiting. She is complaining of neck pain, and head pain since the fall, we will be giving Tylenol. Holding on obtaining screening labs, if she sustained an acute injury, we will do so then. I have independently reviewed the following tests: CT head:IMPRESSION: 1. No acute intracranial findings. This document has been electronically signed by: Herminio Medina MD on 08/07/2024 20:20:24 CT cervical spine:Findings: Vertebral alignment is within normal limits. Multiple level degenerative disc, facet, and uncovertebral joint change. No acute fractures or dislocations. No acute findings on limited view of the intracranial contents. Soft tissues of the neck are normal. Lung apices are clear. IMPRESSION: No acute findings. This document has been electronically signed by: Herminio Medina MD on 08/07/2024 20:19:00 Discharge Plan Discharge Clinical Impression: Fall, Contusion of head Patient Disposition: Home, Self-Care Instructions: Contusion in Adults (ED) Additional Instructions: CT scan of your brain and cervical spine were normal, you did not sustain an acute injury. You probably have a contusion. See home care instructions. You can use [id number] Tylenol 975 mg every 8 hours, for pain and headache. Follow up with your primary care provider as needed. Prescriptions: No Action lamotrigine 25 mg Tablet 50 mg PO BEDTIME 30 Days Qty: 60 0RF lamotrigine 25 mg Tablet 50 mg PO DAILY 30 Days Qty: 60 0RF trazodone 50 mg Tablet See Rx Instructions .ROUTE .COMPLEX PRN (Reason: Insomnia) 30 Days Qty: 45 0RF Rx Instructions: take 1 or 1.5 tabs at bedtime as needed for insomnia clonazepam 0.5 mg tablet 0.5 mg PO BID PRN (Reason: anxiety attack) 15 Days Qty: 30 0RF Rx Instructions: [facility] 30d supply clonidine HCl 0.2 mg tablet 0.2 mg PO BID PRN (Reason: panic attack) 30 Days Qty: 60 0RF olanzapine 15 mg tablet 15 mg PO BEDTIME 30 Days Qty: 30 0RF dabigatran etexilate [Pradaxa] 150 mg Capsule 150 mg PO BID 30 Days Qty: 60 0RF Interventions: ED Discharge Assessment Last Done: 08/07/24 22:31 Discharge Date/Time: 08/07/24 22:32 Print Language: Hungarian
[2024-08-07 22:12] VITALS: BP 116/52; PULSE 93; RESP 16; TEMP 36.6; O2SAT 94
--- NOTE | 2024-08-07 22:12 | PC.NURSE ---
erlin obtained for transport home.
[2024-08-07 22:31] VITALS: BP 116/52; PULSE 93; RESP 16; TEMP 36.6; O2SAT 94
== END 2024-08-07 22:32 | disposition home or self-care (01) ==
PROVIDERS: Emergency Provider Emergency Medicine; PCP Internal Medicine
DX: S00.93XA Contusion of unspecified part of head, initial encounter (principal); R51.9 Headache, unspecified; M54.2 Cervicalgia; W01.0XXA Fall on same level from slipping, tripping and stumbling without subsequent striking against object, initial encounter; Y93.01 Activity, walking, marching and hiking; Y92.480 Sidewalk as the place of occurrence of the external cause; Y99.8 Other external cause status
CPT/HCPCS: 70450; 72125; 99284

== ENCOUNTER → 2024-08-07 19:24 | Outpatient (BNV) | payer MEDICARE, SELFPAY | PROVIDERS: Emergency Provider Emergency Medicine; PCP Internal Medicine; Visit Provider Specialist | DX: S09.90XA Unspecified injury of head, initial encounter (principal) | CPT/HCPCS: 70450; 72125 ==

== ENCOUNTER 2024-10-27 14:01 | Inpatient (IN) | payer MEDICARE, MEDICAID, SELFPAY ==
--- NOTE | ~2024-10-27 | CT_ITS ---
CLINICAL HISTORY: left upper and lower abd pain after fall [address] abdomen and pelvis without contrast Comparison: None Findings: Lung bases clear. No acute bony abnormality. Degenerative change bilateral hip joints. Old posterior left rib fracture deformity. Liver and spleen within normal limits. Pancreas and right adrenal gland unremarkable. 2 cm benign left adrenal adenoma. Cholecystectomy. No bilateral renal stone or hydronephrosis. No focal renal abnormality or ureteral dilation. No evidence for aortic aneurysm. No free fluid or adenopathy in the pelvis. No diverticulitis. Appendix not identified. Status post partial colectomy. Uterus normal size. No adnexal abnormality. Impression: No acute processes This document has been electronically signed by: Michael Cassidy MD on 10/27/2024 19:16:44
--- NOTE | ~2024-10-27 | CT_ITS ---
CLINICAL HISTORY: heAD INJURY CT head without contrast Comparison: 08/07/2024 Findings: No intracranial mass, midline shift, hydrocephalus, or acute hemorrhage. Moderate chronic ischemic white matter disease with volume loss. No acute process in sinuses or mastoids. No acute bony abnormality. Impression: No acute intracranial process This document has been electronically signed by: Michael Cassidy MD on 10/27/2024 19:12:35
--- NOTE | ~2024-10-27 | CT_ITS ---
CLINICAL HISTORY: FALL ON [employer] CT cervical spine without contrast Comparison: 08/07/2024 Findings: No acute fracture or dislocation. Moderate degenerative change. Multilevel slight anterolisthesis. Alignment is unchanged. Pacemaker leads partially visualized. Impression: No acute processes This document has been electronically signed by: Michael Cassidy MD on 10/27/2024 19:11:45
--- NOTE | ~2024-10-27 | CT_ITS ---
CLINICAL HISTORY: fall on [employer] c o left rib pain CT chest without contrast Comparison: None Findings: Lung matias are clear without acute infiltrates. Emphysema with bilateral lower lobe scarring. No significant mediastinal adenopathy. No significant free pleural fluid. Cardiomegaly with coronary artery calcifications. Left chest pacemaker with right heart leads. Degenerative change in thoracic spine. Old posterior left eleventh and 12th rib fracture. No significant focal bony abnormalities. Impression: No acute processes This document has been electronically signed by: Michael Cassidy MD on 10/27/2024 19:20:09
[2024-10-27 14:15] VITALS: BP 153/81; BP 158/98; PULSE 77; PULSE 78; RESP 20; TEMP 36.6; O2SAT 96; O2SAT 97; BMI 23.3
[2024-10-27 16:02] VITALS: BP 138/79; PULSE 95; RESP 18; TEMP 36.5; O2SAT 96
--- NOTE | 2024-10-27 17:19 | ECG_ITS ---
Test Reason : fall Blood Pressure : */* mmHG Vent. Rate : 71 BPM Atrial Rate : 71 BPM P-R Int : 158 ms QRS Dur : 140 ms QT Int : 458 ms P-R-T Axes : -36 43 165 degrees QTcB Int : 497 ms Normal sinus rhythm Left bundle branch block Abnormal ECG When compared with ECG of 14-Apr-2024 03:44, No significant changes seen Referred By: Gilda Pan Electronically Signed By: BROOKE AGUILAR
--- NOTE | 2024-10-27 17:20 | ED.GENADULT ---
HPI - General Adult General Chief complaint: Altered Mental Status Stated complaint: Fall/headstrike/thinners ? 2 days ago, ?sec 12 AMS Time Seen by Provider: 10/27/24 16:24 History of Present Illness HPI narrative: Patient is a 79-year-old female with a history of falling while walking. Patient is on Eliquis. Hit her head. There is a question history of aneurysm. Patient had a CTA done in November of last year it did not show any acute evidence of aneurysm. Patient subsequently tripped over the curb. Hitting her head. Hitting the left rib area. Complaining of pain. Denies any nausea vomiting. Social work observed patient is more confused section patient for further evaluation. Patient is awake alert oriented answer questions appropriately. Has no focal distress. Moving all extremities. Related Data Previous Rx's ?Medication ?Instructions ?Recorded clonazepam 0.5 mg tablet 0.5 mg PO BID PRN anxiety attack 04/27/24 15 days #30 tabs clonidine HCl 0.2 mg tablet 0.2 mg PO BID PRN panic attack 30 04/27/24 days #60 tabs dabigatran etexilate 150 mg 150 mg PO BID 30 days #60 caps 04/27/24 capsule (Pradaxa) lamotrigine 25 mg tablet 50 mg (2 x 25 mg) PO BEDTIME 30 04/27/24 days #60 tabs lamotrigine 25 mg tablet 50 mg (2 x 25 mg) PO DAILY 30 days 04/27/24 #60 tabs olanzapine 15 mg tablet 15 mg PO BEDTIME 30 days #30 tabs 04/27/24 trazodone 50 mg tablet See Rx Instructions .Route 04/27/24 .COMPLEX PRN Insomnia 30 days #45 tabs Allergies Allergy/AdvReac Type Severity Reaction Status Date / Time adhesive AdvReac Unknown Verified 10/27/24 14:25 aspirin AdvReac Unknown Verified 10/27/24 14:25 epinephrine AdvReac Unknown Verified 10/27/24 14:25 Review of Systems Review of Systems: Positive head injury Positive injury to the left rib area Yes all other systems are reviewed and are negative [facility] Past Medical History Attestation statement: The following information was validated with the patient. Medical History Bipolar 1 disorder Pacemaker FH: cholecystectomy Lung nodule Syncope Osteopenia Hyperparathyroidism C. difficile diarrhea Mitral valve prolapse Tobacco abuse TIA (transient ischemic attack) Prediabetes Hyperlipidemia Depression PTSD (post-traumatic stress disorder) Essential hypertension COPD (chronic obstructive pulmonary disease) Surgical History History of appendectomy History of parathyroidectomy History of colectomy Social History Social History Household Members: None Household Members Other:: lives with self Housing: Apartment Do you presently have visiting nurse or other home services: No Alcohol intake: never Comment: 5 min safety checks. Patient Tobacco Use Status: Current everyday Tobacco user Tobacco use type: Cigarette Cigarette Packs Per Day: 4 Cigarettes Per Day: 80.0 Years Smoked: 20 e-Cigarette/Vaping Use: Never Used Second Hand Smoke Exposure: No Substance Use Type: Prescription Drugs and Caffiene Advance Directives: Yes Advance Directives on File: Yes Advance Directives Date on File: 02/08/22 service: No Sexual orientation: Straight/Heterosexual Physical Exam ED Vital Signs: Vital Signs - 24 hr 10/27/24 14:15 10/27/24 16:02 10/27/24 18:42 Temperature 97.8 F 97.7 F Pulse Rate 77 95 74 Respiratory Rate 20 18 14 Blood Pressure 153/81 H 138/79 139/70 Pulse Oximetry 97 96 95 Oxygen Delivery Method Room Air Room Air Room Air 10/27/24 20:22 Temperature 98.2 F Pulse Rate 71 Respiratory Rate 18 Blood Pressure 151/76 H Pulse Oximetry 97 Oxygen Delivery Method Room Air BMI result Body Mass Index 23.3 Appearance: Alert. Oriented X3. No acute distress. Eyes: Pupils equal, round and reactive to light. ENT: Pharynx normal. Neck: Normal inspection. Neck supple. No lymph nodes noted. No crepitus. There is no cervical spine tenderness elicited on palpation CVS: Normal heart rate and rhythm. Pulses normal. Normal S1 and S2 Respiratory: No respiratory distress. Breath sounds normal. No Wheezing. No rales. There is no chest wall tenderness. There is no crepitus on palpation of the chest. Abdomen: Soft and nontender. No rigidity. No distention. good BS x4 Skin: Skin warm and dry. Normal skin color. Normal skin turgor. Extremities: No lower extremity edema. Neurovascular intact to all extremities. No Lacerations. No Rash Neuro: Oriented X 3. No motor deficit. No sensory deficit. Moving all extermities. No slurred speech Medications Administered Discontinued Medications Generic Name Dose Route Start Last Admin Trade Name Ryland PRN Reason Stop Dose Admin Ceftriaxone Sodium 1 gm 10/27/24 18:31 10/27/24 19:53 Ceftriaxone Sodium 1 Gm Vial IVPUSH 10/27/24 18:32 1 gm ONCE ONE Administration Medical Decision Making Medical Decision Making [facility] Narrative: Patient is 79 years old presented today with having light-headedness dizziness then fell. Might have hit her head a few days ago. Also complaining of pain to the left rib worse with movement. A CT scan of the head was done my interpretation the CT head was negative for bleed no fracture I reviewed radiology's reading of the CT head CT C-spine CT chest abdomen pelvis. No traumatic injury was noted. Patient's urine showed a urinary tract infection. Lactate is normal there is no signs of severe sepsis. Antibiotic was started after previous culture was reviewed. Patient was given a dose of Rocephin. Patient's EKG by my interpretation showed a sinus pattern heart rate was 70 with a left bundle branch block. This is old. Patient has had elevated troponin. The 1st 1 was in the 70s the 2nd 1 was in the 90s. Will require admission for further monitoring. Hospitalist team was consulted. Patient's hemoglobin is baseline there is no signs of anemia. No signs of bleed. Patient's electrolytes are unremarkable. Ammonia is level is negative at 47 no signs of hepatic encephalopathy. Patient was noted by EMS/visiting nurse to have an unkept home not a safe environment. Question change in mental status. We actually have the care team evaluate patient felt patient is actually awake alert oriented. Cleared from the psych perspective Differential Diagnosis Differential Diagnoses: The differential diagnosis associated with the presentation includes Near-syncope, head injury, fall Admission/Observation Consideration of admission/observation: Escalation of care including admission/observation considered Consult Healthcare Provider Management of the patient was discussed with: Hospitalist Lab Data [facility] Lab Attestation statement: I reviewed the patient's lab results. 10/27/24 17:52 10/27/24 17:52 Labs: Lab Results 10/27/24 10/27/24 10/27/24 Range/Units 17:52 17:54 18:55 WBC 7.3 (4.8-10.8) X10*3/uL RBC 4.05 L (4.20-5.50) X10*6/uL Hgb 12.9 (12.0-16.0) g/dl Hct 35.5 L (37.0-47.0) % MCV 87.7 (80.0-98.0) fL MCH 31.9 (27.0-33.0) pg MCHC 36.3 H (31.0-35.0) g/dl RDW 13.1 (11.0-16.0) % Plt Count 216 (160-400) X10*3/uL MPV 10.1 (9.4-12.3) fL Immature Gran % (Auto) 0.4 (0.0-0.4) % Neut % (Auto) 69.3 (45-73) % Lymph % (Auto) 18.1 L (20-40) % [place] % (Auto) 9.7 (2-11) % Eos % (Auto) 1.8 (0-4) % Baso % (Auto) 0.7 (0-2) % Lymph # (Auto) 1.3 (1.2-4.9) X10*3/uL [place] # (Auto) 0.7 (0.1-1.2) X10*3/uL Eos # (Auto) 0.1 (0.0-0.4) X10*3/uL Baso # (Auto) 0.1 (0.0-0.2) X10*3/uL Abs Immat Gran (auto) 0.03 (0.00-0.03) X10*3/uL Absolute Neuts (auto) 5.1 (2.0-8.3) x10*3/uL Absolute Nucleated RBC 0.000 (0.0-0.012) X10*3/uL Nucleated RBC % (auto) 0.0 (0.0-0.2) /100WBC Sodium 131 L (135-145) mmol/L Potassium 3.7 (3.3-5.1) mmol/L Chloride 99 (96-108) mmol/L Carbon Dioxide 22 (22-29) mmol/L Anion Gap 14 (12-20) BUN 10 (9-16) mg/dL Creatinine 0.59 (0.5-1.4) mg/dL Estim Creat Clear Calc 67.8 Estimated GFR > 60 Random Glucose 105 (60-115) mg/dL Lactic Acid 1.0 (0.5-2.0) mmol/L Calcium 9.2 (8.4-10.2) mg/dL Total Bilirubin 0.5 (0.0-1.0) mg/dL Direct Bilirubin 0.2 (0.0-0.5) mg/dL AST 27 (5-31) U/L ALT 16 (0-31) U/L Alkaline Phosphatase 60 (39-117) U/L Ammonia 47 (13-55) umol/L Troponin I High Sens 76.6 H* D (<3.5-17.0) ng/L Total Protein 7.0 (6.5-8.0) g/dL Albumin 4.0 (3.5-5.0) g/dL Urine Color Yellow Urine Appearance Clear Urine pH 7.5 (5.0-9.0) Ur Specific [place] <= 1.005 (1.005-1.025) Urine Protein Negative (Neg-Trace) mg/dL Urine Glucose (UA) Negative (Negative) mg/dL Urine Ketones Negative (Negative) mg/dL Urine Blood Trace H (Negative) Urine Nitrite Positive H (Negative) Ur Leukocyte Esterase Large (3+) H (Negative) Urine RBC 0-2 (0-2) /HPF Urine WBC >50 H (0-5) /HPF Ur Squamous Epith Cells 0-2 (0-2) /HPF Urine Bacteria 4+ (None Seen) Hyaline Casts 0-2 (0-2) /LPF 10/27/24 Range/Units 19:53 WBC (4.8-10.8) X10*3/uL RBC (4.20-5.50) X10*6/uL Hgb (12.0-16.0) g/dl Hct (37.0-47.0) % MCV (80.0-98.0) fL MCH (27.0-33.0) pg MCHC (31.0-35.0) g/dl RDW (11.0-16.0) % Plt Count (160-400) X10*3/uL MPV (9.4-12.3) fL Immature Gran % (Auto) (0.0-0.4) % Neut % (Auto) (45-73) % Lymph % (Auto) (20-40) % [place] % (Auto) (2-11) % Eos % (Auto) (0-4) % Baso % (Auto) (0-2) % Lymph # (Auto) (1.2-4.9) X10*3/uL [place] # (Auto) (0.1-1.2) X10*3/uL Eos # (Auto) (0.0-0.4) X10*3/uL Baso # (Auto) (0.0-0.2) X10*3/uL Abs Immat Gran (auto) (0.00-0.03) X10*3/uL Absolute Neuts (auto) (2.0-8.3) x10*3/uL Absolute Nucleated RBC (0.0-0.012) X10*3/uL Nucleated RBC % (auto) (0.0-0.2) /100WBC Sodium (135-145) mmol/L Potassium (3.3-5.1) mmol/L Chloride (96-108) mmol/L Carbon Dioxide (22-29) mmol/L Anion Gap (12-20) BUN (9-16) mg/dL Creatinine (0.5-1.4) mg/dL Estim Creat Clear Calc Estimated GFR Random Glucose (60-115) mg/dL Lactic Acid (0.5-2.0) mmol/L Calcium (8.4-10.2) mg/dL Total Bilirubin (0.0-1.0) mg/dL Direct Bilirubin (0.0-0.5) mg/dL AST (5-31) U/L ALT (0-31) U/L Alkaline Phosphatase (39-117) U/L Ammonia (13-55) umol/L Troponin I High Sens 92.5 H* (<3.5-17.0) ng/L Total Protein (6.5-8.0) g/dL Albumin (3.5-5.0) g/dL Urine Color Urine Appearance Urine pH (5.0-9.0) Ur Specific [place] (1.005-1.025) Urine Protein (Neg-Trace) mg/dL Urine Glucose (UA) (Negative) mg/dL Urine Ketones (Negative) mg/dL Urine Blood (Negative) Urine Nitrite (Negative) Ur Leukocyte Esterase (Negative) Urine RBC (0-2) /HPF Urine WBC (0-5) /HPF Ur Squamous Epith Cells (0-2) /HPF Urine Bacteria (None Seen) Hyaline Casts (0-2) /LPF Independent Interpretation I performed an independent interpretation of an: EKG (Please see EKG interpretation above) and CT Scan (CT head negative) Radiology Impression Discussion of test interpretation with radiology: I have reviewed the radiologist's reading. External Record Review External record reviewed: Inpatient record Chronic Conditions Patient?s care impacted by: Hypertension History of COPD history of TIA history of being on blood thinner Social Determinants Patient?s care significantly limited by Social Determinants of Health including: Problems related to primary support group Critical Care Time Critical Care Time Critical Care Time: Yes Total Critical Care Time: 40 Attestation: I have personally provided 40 minutes of critical care time exclusive of time spent on separately billable procedures. ?Time includes review of lab data, radiology results, discussion with consultants, and monitoring for potential decompensation. ?Interventions were performed as documented above Discharge Plan Discharge Clinical Impression: Urinary tract infection, Dizziness Patient Disposition: Admitted As Inpatient Prescriptions: No Action lamotrigine 25 mg Tablet 50 mg PO BEDTIME 30 Days Qty: 60 0RF lamotrigine 25 mg Tablet 50 mg PO DAILY 30 Days Qty: 60 0RF trazodone 50 mg Tablet See Rx Instructions .ROUTE .COMPLEX PRN (Reason: Insomnia) 30 Days Qty: 45 0RF Rx Instructions: take 1 or 1.5 tabs at bedtime as needed for insomnia clonazepam 0.5 mg tablet 0.5 mg PO BID PRN (Reason: anxiety attack) 15 Days Qty: 30 0RF Rx Instructions: [facility] for 30d supply clonidine HCl 0.2 mg tablet 0.2 mg PO BID PRN (Reason: panic attack) 30 Days Qty: 60 0RF olanzapine 15 mg tablet 15 mg PO BEDTIME 30 Days Qty: 30 0RF dabigatran etexilate [Pradaxa] 150 mg Capsule 150 mg PO BID 30 Days Qty: 60 0RF Print Language: Wallisian
[2024-10-27 18:00] LABS: MANUAL DIFF FLAG NO
[2024-10-27 18:01] LABS: Basophils Absolute Auto 0.1 X10*3/uL (0.0-0.2); Basophils Percent Auto 0.7 % (0-2); Eosinophils Absolute Auto 0.1 X10*3/uL (0.0-0.4); Eosinophils Percent Auto 1.8 % (0-4); Hematocrit 35.5 % (37.0-47.0); Hemoglobin 12.9 g/dl (12.0-16.0); Imm Gran Abs Auto 0.03 X10*3/uL (0.00-0.03); Imm Gran Pct Auto 0.4 % (0.0-0.4); Lymphocytes Absolute Auto 1.3 X10*3/uL (1.2-4.9); Lymphocytes Percent Auto 18.1 % (20-40); Mean Corpuscular HGB Conc 36.3 g/dl (31.0-35.0); Mean Corpuscular Hemoglobin 31.9 pg (27.0-33.0); Mean Corpuscular Volume 87.7 fL (80.0-98.0); Mean Platelet Volume 10.1 fL (9.4-12.3); Monocytes Absolute Auto 0.7 X10*3/uL (0.1-1.2); Monocytes Percent Auto 9.7 % (2-11); Neutrophils Absolute Auto 5.1 x10*3/uL (2.0-8.3); Neutrophils Percent Auto 69.3 % (45-73); Platelet Count 216 X10*3/uL (160-400); Red Blood Count 4.05 X10*6/uL (4.20-5.50); Red Cell Distribution Width 13.1 % (11.0-16.0); White Blood Count 7.3 X10*3/uL (4.8-10.8)
[2024-10-27 18:02] LABS: Appearance Urine Clear; Color Urine Yellow; Glucose Urine UA Negative (Negative); Leukocyte Esterase Urine Large (3+) (Negative); Nitrite Urine Positive (Negative); PH 7.5 (5.0-9.0); Specific Gravity - Urine <= 1.005 (1.005-1.025); UMIC TRIGGER UACC YES; Urine Blood Trace (Negative); Urine Ketones Negative (Negative); Urine Protein Negative (Neg-Trace)
[2024-10-27 18:07] LABS: Bacteria Urine 4+ (None Seen); Hyaline Casts Urine 0-2 /LPF (0-2); RBC Urine 0-2 /HPF (0-2); Squamous Epithelial Cell Urine 0-2 /HPF (0-2); UACC Culture Trigger YES; WBC Urine >50 /HPF (0-5)
[2024-10-27 18:20] LABS: Ammonia 47 umol/L (13-55)
[2024-10-27 18:33] LABS: Alanine Aminotransferase 16 U/L (0-31); Anion Gap 14 (12-20); Aspartate Amino Transferase 27 U/L (5-31); Bilirubin Direct 0.2 mg/dL (0.0-0.5); Bilirubin Total 0.5 mg/dL (0.0-1.0); Blood Urea Nitrogen 10 mg/dL (9-16); Calcium 9.2 mg/dL (8.4-10.2); Carbon Dioxide 22 mmol/L (22-29); Chloride 99 mmol/L (96-108); Creatinine Clr Calc Pharmacy 67.8; Estimated Glomerular Filt Rate > 60; Glucose Random 105 mg/dL (60-115); Potassium 3.7 mmol/L (3.3-5.1); Sodium 131 mmol/L (135-145)
[2024-10-27 18:42] VITALS: BP 139/70; PULSE 74; RESP 14; O2SAT 95
[2024-10-27 19:25] LABS: Alkaline Phosphatase 60 U/L (39-117)
--- NOTE | 2024-10-27 19:48 | PC.NURSE ---
approached this RN to update POC/ Pt scans clean, care team cleared pt at this time. Section 12 is not being kept by this hospital. Pt receiving one dose of IV antibiotics for UTI, as long as trops remain negative pt will be okay'd to be DC home at this time. IV being placed by oncoming shift to received IV antibiotics.
[2024-10-27] MEDS: cefTRIAXone sodium 1 GM VIAL IVPUSH (19:53)
--- NOTE | 2024-10-27 19:54 | PC.NURSE ---
Took over care from DEBRA Storey, Iv placed and pt medicated per sep.
[2024-10-27 20:22] VITALS: BP 151/76; PULSE 71; RESP 18; TEMP 36.8; O2SAT 97
[2024-10-27 20:26] LABS: Troponin-I High Sensitivity 92.5 ng/L (<3.5-17.0)
[2024-10-27 21:33] LABS: Troponin-I High Sensitivity 76.6 ng/L (<3.5-17.0)
[2024-10-27 22:07] VITALS: BP 137/68; PULSE 69; RESP 16; TEMP 36.7; O2SAT 96
--- NOTE | 2024-10-27 22:16 | MHC.EDTECH ---
PATIENT WAS AMBULATED.PATIENT USED WALKER FOR ASSISTANCE.PATIENT HAD STEADY GATE AND INDICATED FEELING LESS DIZZY.
[2024-10-27 22:18] LABS: Troponin-I High Sensitivity 86.9 ng/L (<3.5-17.0)
--- NOTE | 2024-10-27 22:24 | PC.NURSE ---
pt is alert cooperative, resting in stretcher. no sign of distress.
--- NOTE | 2024-10-27 22:31 | PC.NURSE ---
critical trop of 86.9, reported to Dr. Caruso
--- NOTE | 2024-10-27 22:41 | P.HPHOSP_ITS ---
History of Present Illness Date of Service: 10/27/24 Chief Complaint: Fall: 79-year-old female with a past medical history of HTN, HLD, COPD, PTSD, anxiety, depression, history of cardiac pacemaker, TIA, mitral valve prolapse, hyperparathyroidism, osteopenia, pulmonary nodule, history of syncope; presented to the hospital today with a chief complaint of fall. Patient reports that she was walking on the side of a with her walker, suddenly tripped and fell. Denies any loss of consciousness. Patient denied any head strike to me. But reported head strike to the ER physician. Denies any chest pain or palpitations. Denies any nausea or vomiting. After she came home she was speaking to her psychologist over the phone-who suggested to go to the ER for further evaluation. Patient denies any numbness tingling or focal weakness. Denies any urinary symptoms. Reports having chills. Review of all other systems is negative except mentioned above ER course: Per ER team, patient exam was grossly nonfocal; CT head and CT C-spine showed no acute findings; patient has elevated troponins-plateaued; EKG nonischemic. UA abnormal consistent with UTI. Given ceftriaxone. ON LICENSE OF [facility] Medical History Bipolar 1 disorder Pacemaker FH: cholecystectomy Lung nodule Syncope Osteopenia Hyperparathyroidism C. difficile diarrhea Mitral valve prolapse Tobacco abuse TIA (transient ischemic attack) Prediabetes Hyperlipidemia Depression PTSD (post-traumatic stress disorder) Essential hypertension COPD (chronic obstructive pulmonary disease) Surgical History History of appendectomy History of parathyroidectomy History of colectomy Social History Household Members: None Household Members Other:: lives with self Housing: Apartment Housing Other:: [facility] Do you presently have visiting nurse or other home services: Yes ([facility] 2x/wk) Alcohol intake: never Comment: 5 min safety checks. Patient Tobacco Use Status: Current everyday Tobacco user Tobacco use type: Cigarette Cigarette Packs Per Day: 4 Cigarettes Per Day: 2 Years Smoked: 20 Smoked in Last 30 Days: Yes e-Cigarette/Vaping Use: Never Used Patient Interested in Nicotine Replacement: No Second Hand Smoke Exposure: No Use of substances other than those prescribed or required for medical reasons: No Substance Use Type: Prescription Drugs and Caffiene [employer] Healthcare Practices: [facility] Advance Directives: Yes Advance Directives on File: Yes Advance Directives Date on File: 02/08/22 Recently lost weight without trying: Yes How much weight loss: 24-33 pounds Eating poorly because of decreased appetite: Yes Nutrition screen score: 6 Nutrition Risks: No Nutritional Risk Patient : No service: No Sexual orientation: Straight/Heterosexual Meds Allergies Allergy/AdvReac Type Severity Reaction Status Date / Time adhesive AdvReac Unknown Verified 10/27/24 14:25 aspirin AdvReac Unknown Verified 10/27/24 14:25 epinephrine AdvReac Unknown Verified 10/27/24 14:25 Active Medications: Current Medications Acetaminophen (Acetaminophen 325 Mg Tablet) 650 mg PO Q6H PRN PRN Reason: Pain, Mild 1-3,fever,headache Calcium Carbonate (Calcium Carbonate 750 Mg Tab.Chew) 750 mg PO Q4H PRN PRN Reason: Heartburn Clonidine HCl (Clonidine Hcl 0.1 Mg Tablet) 0.1 mg PO BID PRN; Protocol PRN Reason: Anxiety Dabigatran (Dabigatran Etexilate Mesylate 150 Mg Capsule) 150 mg PO BID HAJA Lamotrigine (Lamotrigine 25 Mg Tablet) 50 mg PO DAILY HAJA Lamotrigine (Lamotrigine 25 Mg Tablet) 50 mg PO BEDTIME HAJA Magnesium Hydroxide (Milk Of Magnesia 30 Ml Oral.Susp) 30 ml PO DAILY PRN PRN Reason: Constipation Melatonin (Melatonin 3 Mg Tablet) 6 mg PO BEDTIME PRN PRN Reason: Insomnia Olanzapine (Olanzapine 7.5 Mg Tablet) 15 mg PO BEDTIME HAJA Sodium Chloride (0.9 % Sodium Chloride Flush 3 Ml Syringe) 3 ml IVFLUSH QSHIFT HAJA Physical Exam 2 Vital Signs and Narrative: Vital Signs: Last Vital Signs Temp 98.0 F 10/27/24 22:07 Pulse 69 10/27/24 22:07 Resp 16 10/27/24 22:07 BP 137/68 10/27/24 22:07 Pulse Ox 96 10/27/24 22:07 O2 Del Method Room Air 10/27/24 22:07 BMI result Body Mass Index 23.3 Gen: Appears be in no acute distress HEENT: NCAT, Moist mucosa. Pulmonary: Vesicular breath sounds, fair air entry CVS: Normal S1-S2 Abdomen: BS+, Soft, Nontender Extremities: Warm well perfused Neuro: Alert and awake. Results Labs 10/27/24 17:52 10/27/24 17:52 Labs: Laboratory Results - last 24 hr 10/27/24 10/27/24 10/27/24 17:52 17:54 18:55 MCV 87.7 MCH 31.9 MCHC 36.3 H RDW 13.1 Plt Count 216 MPV 10.1 Immature Gran % (Auto) 0.4 Neut % (Auto) 69.3 Lymph % (Auto) 18.1 L [place] % (Auto) 9.7 Eos % (Auto) 1.8 Baso % (Auto) 0.7 Lymph # (Auto) 1.3 [place] # (Auto) 0.7 Eos # (Auto) 0.1 Baso # (Auto) 0.1 Abs Immat Gran (auto) 0.03 Absolute Neuts (auto) 5.1 Absolute Nucleated RBC 0.000 Nucleated RBC % (auto) 0.0 Anion Gap 14 Estim Creat Clear Calc 67.8 Estimated GFR > 60 Random Glucose 105 Lactic Acid 1.0 Calcium 9.2 Total Bilirubin 0.5 Direct Bilirubin 0.2 AST 27 ALT 16 Alkaline Phosphatase 60 Ammonia 47 Total Protein 7.0 Albumin 4.0 Urine Color Yellow Urine Appearance Clear Urine pH 7.5 Ur Specific [place] <= 1.005 Urine Protein Negative Urine Glucose (UA) Negative Urine Ketones Negative Urine Blood Trace H Urine Nitrite Positive H Ur Leukocyte Esterase Large (3+) H Urine RBC 0-2 Urine WBC >50 H Ur Squamous Epith Cells 0-2 Urine Bacteria 4+ Hyaline Casts 0-2 Assessment and Plan (1) Urinary tract infection: Qualifiers: Urinary tract infection type: site unspecified Hematuria presence: w [facility] hematuria Qualified Code(s): N39.0 - Urinary tract infection, site not specified Status: Acute Plan 79-year-old female with a past medical history of HTN, HLD, COPD, PTSD, anxiety, depression, history of cardiac pacemaker, TIA, mitral valve prolapse, hyperparathyroidism, osteopenia, pulmonary nodule, history of syncope; presented to the hospital today with a chief complaint of fall. Fall/near syncope: Patient reports having an episode of dizziness and had a fall. Denies any dizziness at the time of my interview. Exam grossly nonfocal Denies any loss of consciousness. CT head and CT C-spine showed no acute findings Troponins elevated-plateaued. Plan: Fall precautions Orthostatic vitals Gentle IV fluids Echocardiogram Telemetry Cardiology consult PT/OT when ready for discharge UTI: Continue ceftriaxone. Follow up cultures. HX TIA: Patient on Pradaxa. Will continue HX anxiety/depression: Patient has history of SI and Psychiatry unit admission in the past. Continue home medications DVT prophylaxis: Patient on Pradaxa Code status: Full code Quality Stroke Does the patient have a stroke diagnosis?: No VTE Prior VTE?: No VTE Risk Level:: Medical - moderate - high VTE Device Contraindication: Treatment Not Indicated VTE Drug Contraindication: N/A - Med Ordered
--- NOTE | 2024-10-27 23:20 | MHC.EDTECH ---
this tech assumed care of pt @[id number]
--- NOTE | 2024-10-27 23:50 | PC.NURSE ---
No sign of distress, pt sleeping at this time.
[2024-10-28] VITALS (8 sets, daily range): BP systolic 99–161; BP diastolic 54–70; PULSE 70–76; RESP 12–20; TEMP 36.3–37.3; O2SAT 95–98; BMI 22.4
[2024-10-28] MEDS: 0.9 % Sodium Chloride Flush 3 ML SYRINGE IVFLUSH ×4 (01:15→20:03)
--- NOTE | 2024-10-28 01:54 | PC.NURSE ---
report given and pt transferred to receiving unit
--- NOTE | 2024-10-28 07:00 | CA_ITS ---
Transthoracic Echocardiogram Patient (Last, First, Middle): Katheryn Hutson N Gender: Female Date of : 1945 Age: 79 Procedure Date: 10/28/2024 Procedure Type: Transthoracic Echocardiogram Location: [facility] Height: 162.56 cm Weight: 58.97 kg BSA: 1.63 m2 Heart Rate: 76 bpm BP: 136 / 63 mmHg Digital Account Executive: Referring MD: Hayder Gifford MD Symptoms: elevated troponins Study Quality: Adequate ECG Rhythm: Sinus Conclusions: - The left ventricular systolic function is severely decreased. The calculated ejection fraction is 27% by biplane method. - There is mild to moderate aortic valve stenosis. Findings Left Ventricle Normal left ventricular cavity size. There is moderately increased left ventricular wall thickness. The left ventricular systolic function is severely decreased. The calculated ejection fraction is 27% by biplane method. There is severe global hypokinesis. There is paradoxical septal motion consistent with a left bundle branch block. Evidence suggests grade I (mild) diastolic dysfunction. Right Ventricle Normal right ventricular cavity size and systolic function. There is a pacemaker wire seen in the right ventricle. Atria The left atrium is moderately dilated. The right atrium is normal in size. Aortic Valve The aortic valve was not well visualized. There is mild calcification of the aortic valve. There is mild to moderate aortic valve stenosis. There is no aortic valve regurgitation. Mitral Valve The mitral valve appears normal. There is mild mitral annular calcification. There is mild mitral valve regurgitation. There is no mitral valve stenosis. Pulmonic Valve The pulmonic valve is likely normal. Tricuspid Valve There is mild tricuspid valve regurgitation. There is no evidence of pulmonary hypertension. Great Vessels The sinuses of valsalva is normal in size. Venous The inferior vena cava is normal in size and collapses greater than 50% with inspiration. Pericardium/Pleural There is a trivial pericardial effusion. Prior Study Comparison No prior study available for comparison. Measurements 2D Linear Measurements IVSd: 1.31 0.6-0.9/0.6-1.0 cm LVIDd: 4.83 3.9-5.3/4.2-5.9 cm LVIDd Index: 2.96 2.4-3.2/2.2-3.1 cm/m2 LVIDs: 4.23 2.0-3.6 cm LVPWd: 1.28 0.7-1.1 cm LA Diam: 3.50 2.7-3.8/3.0-4.0 cm LAIDs Index: 2.15 1.5-2.3 cm/m2 LV Mass: 307.67 67-162/88-224 g LV Mass Index: 188.76 43-95/49-115 g/m2 LVOT Diam: 2.00 3.0+(-)1.3 cm 2D Systolic Function EF 4C: 27.70 >55% EF 2C: 29.70 >55% EF BiP: 27.00 >55% Mitral Valve MV VTI: 0.43 MV Pk Demario: 1.61 MV Mn Demario: 0.96 MV Pk Grad: 10.00 MV Mn Grad: 4.00 MV Pk E: 1.04 MV PK A: 1.30 MV Decel Time: 232.00 E/A: 0.80 E'Lateral: 3.05 E'Medial: 3.37 E/E' Med: 30.90 E/E' Lat: 34.10 PHT: 68.00 MVA PHT: 3.24 MVA Continuity: 1.36 Decel [place]: 4.47 Aortic Valve AoV Pk Demario: 2.60 AoV Mn Demario: 1.80 AoV VTI: 0.48 AoV Pk Grad: 27.00 Aov Mn Grad: 15.00 CALOS Cont.VTI: 1.21 LVOT LVOT Pk Demario: 0.83 LVOT Mn Demario: 0.55 LVOT VTI: 0.18 LVOT Pk Grad: 3.00 LVOT Mn Grad: 2.00 LVOT Diam: 2.00 LVOT Area: 3.14 Diastolic Function MV Pk E: 1.04 MV Pk A: 1.30 E/A: 0.80 E'Medial: 3.37 E/E' Med: 30.90 E' Laterial: 3.05 E/E' Lat: 34.10 Right Ventricle TAPSE (mm): 26.20 TVS' Demario: 13.10 Tricuspid Valve TR Pk Demario: 2.78 TR Pk Grad: 31.00 RA Press: 3.00 RVSP: 34.00 Great Vessels Aorta Sinus of Valsalva: 3.00 2.0-3.5 cm Ao Asc: 3.30 2.1-3.4 cm Pulmonary Valve PV Pk Demario: 1.17 Peak PV Grad: 5.00 Updated in Other Vendor System with Status of Final Lee Hubbard MD electronically signed on 10/28/2024 10:41:50 AM with status of Final
[2024-10-28 07:01] LABS: Hemoglobin 13.1 g/dl (12.0-16.0); Mean Corpuscular HGB Conc 36.4 g/dl (31.0-35.0); Mean Corpuscular Volume 87.8 fL (80.0-98.0); Mean Platelet Volume 10.6 fL (9.4-12.3); Platelet Count 212 X10*3/uL (160-400); White Blood Count 7.6 X10*3/uL (4.8-10.8)
[2024-10-28 07:05] LABS: Anion Gap 12 (12-20); Blood Urea Nitrogen 11 mg/dL (9-16); Calcium 8.7 mg/dL (8.4-10.2); Carbon Dioxide 21 mmol/L (22-29); Chloride 104 mmol/L (96-108); Creatinine Clr Calc Pharmacy 67.8; Estimated Glomerular Filt Rate > 60; Glucose Random 139 mg/dL (60-115); Potassium 3.5 mmol/L (3.3-5.1); Sodium 133 mmol/L (135-145)
--- NOTE | 2024-10-28 07:36 | HO.PM.IMPN ---
Subjective Subjective Date of Service: 10/28/24 Interval History: f/u on fall, ? syncope, no arrythmia noted and Physical Exam Vital Signs: Vital Signs: Last Vital Signs Temp 97.7 F 10/28/24 03:38 Pulse 73 10/28/24 03:38 Resp 18 10/28/24 03:38 BP 136/63 10/28/24 03:38 Pulse Ox 97 10/28/24 03:38 O2 Del Method Room Air 10/28/24 03:38 BMI result Body Mass Index 22.4 Objective Data Active Medications Acetaminophen (Acetaminophen 325 Mg Tablet) 650 mg PO Q6H PRN PRN Reason: Pain, Mild 1-3,fever,headache Calcium Carbonate (Calcium Carbonate 750 Mg Tab.Chew) 750 mg PO Q4H PRN PRN Reason: Heartburn Ceftriaxone Sodium (Ceftriaxone Sodium 1 Gm Vial) 1 gm IVPUSH Q24H HAJA Clonidine HCl (Clonidine Hcl 0.1 Mg Tablet) 0.1 mg PO BID PRN; Protocol PRN Reason: Anxiety Dabigatran (Dabigatran Etexilate Mesylate 150 Mg Capsule) 150 mg PO BID HAJA Lamotrigine (Lamotrigine 25 Mg Tablet) 50 mg PO DAILY HAJA Lamotrigine (Lamotrigine 25 Mg Tablet) 50 mg PO BEDTIME HAJA Magnesium Hydroxide (Milk Of Magnesia 30 Ml Oral.Susp) 30 ml PO DAILY PRN PRN Reason: Constipation Melatonin (Melatonin 3 Mg Tablet) 6 mg PO BEDTIME PRN PRN Reason: Insomnia Olanzapine (Olanzapine 7.5 Mg Tablet) 15 mg PO BEDTIME [facility] Sodium Chloride (0.9 % Sodium Chloride Flush 3 Ml Syringe) 3 ml IVFLUSH QSHIFT [facility] Last Admin: 10/28/24 01:15 Dose: 3 ml Documented By: ALINE Labs 10/28/24 06:15 10/28/24 06:15 Labs: Laboratory Results - last 24 hr 10/27/24 10/27/24 10/27/24 17:52 17:54 18:55 MCV 87.7 MCH 31.9 MCHC 36.3 H RDW 13.1 Plt Count 216 MPV 10.1 Immature Gran % (Auto) 0.4 Neut % (Auto) 69.3 Lymph % (Auto) 18.1 L [place] % (Auto) 9.7 Eos % (Auto) 1.8 Baso % (Auto) 0.7 Lymph # (Auto) 1.3 [place] # (Auto) 0.7 Eos # (Auto) 0.1 Baso # (Auto) 0.1 Abs Immat Gran (auto) 0.03 Absolute Neuts (auto) 5.1 Absolute Nucleated RBC 0.000 Nucleated RBC % (auto) 0.0 Anion Gap 14 Estim Creat Clear Calc 67.8 Estimated GFR > 60 Random Glucose 105 Lactic Acid 1.0 Calcium 9.2 Total Bilirubin 0.5 Direct Bilirubin 0.2 AST 27 ALT 16 Alkaline Phosphatase 60 Ammonia 47 Total Protein 7.0 Albumin 4.0 Urine Color Yellow Urine Appearance Clear Urine pH 7.5 Ur Specific [place] <= 1.005 Urine Protein Negative Urine Glucose (UA) Negative Urine Ketones Negative Urine Blood Trace H Urine Nitrite Positive H Ur Leukocyte Esterase Large (3+) H Urine RBC 0-2 Urine WBC >50 H Ur Squamous Epith Cells 0-2 Urine Bacteria 4+ Hyaline Casts 0-2 10/28/24 06:15 MCV 87.8 MCH 32.0 MCHC 36.4 H RDW 13.0 Plt Count 212 MPV 10.6 Immature Gran % (Auto) Neut % (Auto) Lymph % (Auto) [place] % (Auto) Eos % (Auto) Baso % (Auto) Lymph # (Auto) [place] # (Auto) Eos # (Auto) Baso # (Auto) Abs Immat Gran (auto) Absolute Neuts (auto) Absolute Nucleated RBC 0.000 Nucleated RBC % (auto) 0.0 Anion Gap 12 Estim Creat Clear Calc 67.8 Estimated GFR > 60 Random Glucose 139 H Lactic Acid Calcium 8.7 Total Bilirubin Direct Bilirubin AST ALT Alkaline Phosphatase Ammonia Total Protein Albumin Urine Color Urine Appearance Urine pH Ur Specific [place] Urine Protein Urine Glucose (UA) Urine Ketones Urine Blood Urine Nitrite Ur Leukocyte Esterase Urine RBC Urine WBC Ur Squamous Epith Cells Urine Bacteria Hyaline Casts Assessment and Plan (1) Dizziness: Status: Acute Plan 79-year-old female with a past medical history of HTN, HLD, COPD, PTSD, anxiety, depression, history of cardiac pacemaker, TIA, mitral valve prolapse, hyperparathyroidism, osteopenia, pulmonary nodule, history of syncope; presented to the hospital today with a chief complaint of fall. Fall/near syncope, no LOC, no acute finding on CT, sounds mechanical, possibly related to UTI, but also concern about a pace maker that needed replacement 1 year ago Troponins elevated but flat. hydrated with IVF, fall precaution Seen by cardiology and he may she may need to be transfered to [facility] for pacemaker replacement UTI: Continue ceftriaxone. Follow up cultures. H/ TIA: On Pradaxa, continue HX anxiety/depression: Patient has history of SI and Psychiatry unit admission in the past. Continue home medications DVT prophylaxis: Patient on Pradaxa Code status: Full code Quality Stroke Does the patient have a stroke diagnosis?: No VTE Prior VTE?: No VTE Risk Level:: Medical - moderate - high VTE Device Contraindication: Treatment Not Indicated VTE Drug Contraindication: N/A - Med Ordered
--- NOTE | 2024-10-28 09:28 | P.CONCA_ITS ---
History of Present Illness History of Present Illness Date of Service: 10/28/24 Chief complaint: UTI Narrative: This is a cardiology consultation regarding question of syncope. Patient with many comorbidities as listed including hypertension, high lipids, COPD, PTSD, anxiety, depression, pacemaker among others. Apparently, she is walking with a walker and all of a sudden tripped and fell. No clear loss of consciousness at that time. Then apparently she was speaking to her own psychologist over phone and patient states that she had some speech issue at that time although not mentioned in the initial H&P. Any case, that led to the ER visit. Patient states that she has had a pacemaker placed many years ago but no active follow- up it seems. She has seen Dr. Vidales at [facility] and prior to that, Dr. Dutta. Otherwise, denies any clear history of coronary disease or anything else along those lines. Seem to have a lot of psychiatric issues at baseline. Per recent cardiology consultation from June, , she took unknown amounts of various psychiatric pills and in that instance patient had severe LV dysfunction and got seen by Cardiology. Otherwise, patient states that she is frequently dizzy but she rather describes vertigo type picture. She states this can happen any time and she is lying down, sitting, standing, walking extra. Difficult to say what it is. Otherwise, no clear-cut symptoms like angina. Review of Systems 2 Review of Systems: Yes all other systems are reviewed and are negative Constitutional: Constitutional: Reports as per HPI and Reports no additional constitutional complaints Eyes: Eyes: Reports as per HPI and Denies no additional eye complaints ENT: Denies system reviewed and no additional complaints, except as documented, Reports as per HPI and Reports dizziness Cardiovascular: Cardiovascular: Reports as per HPI, Reports no additional cardiovascular complaints, Denies acrocyanosis, Denies cool extremities, Denies chest pain, Denies leg edema, Denies lightheadedness, Denies palpitations and Denies dyspnea Respiratory: Respiratory: Reports as per HPI, Denies no additional respiratory complaints and Denies dyspnea Gastrointestinal: Gastrointestinal: Reports as per HPI and Denies no additional gastrointestinal complaints Genitourinary: Genitourinary: Reports as per HPI Musculoskeletal: Musculoskeletal: Reports no additional musculoskeletal complaints and Reports as per HPI Integumentary/Breasts: Skin/Breast: Reports system reviewed and no additional complaints, except as docu Neurologic: Reports system reviewed and no additional complaints, except as documented, Reports as per HPI and Reports dizziness Psychiatric: Psychiatric: Reports no additional psychiatric complaints and Reports as per HPI Endocrine: Endocrine: Reports no additional endocrine complaints, Reports as per HPI and Denies palpitations Hematologic/Lymphatic: Hematologic/Lymphatic: Reports no additional hematologic/lymphatic complaints and Reports as per HPI Allergic/Immunologic: Allergic/Immunologic: Reports no additional allergic/immunologic complaints and Reports as per HPI PMFSH Past Medical History Medical History Bipolar 1 disorder Pacemaker FH: cholecystectomy Lung nodule Syncope Osteopenia Hyperparathyroidism C. difficile diarrhea Mitral valve prolapse Tobacco abuse TIA (transient ischemic attack) Prediabetes Hyperlipidemia Depression PTSD (post-traumatic stress disorder) Essential hypertension COPD (chronic obstructive pulmonary disease) Family History Pertinent family history: No pertinent family history Surgical History Surgical History History of appendectomy History of parathyroidectomy History of colectomy Social History Social History Household Members: None Household Members Other:: lives with self Housing: Apartment Housing Other:: [facility] [facility] Do you presently have visiting nurse or other home services: Yes ([facility]NA 2x/wk) Alcohol intake: never Comment: 5 min safety checks. Patient Tobacco Use Status: Current everyday Tobacco user Tobacco use type: Cigarette Cigarette Packs Per Day: 4 Cigarettes Per Day: 2 Years Smoked: 20 Smoked in Last 30 Days: Yes e-Cigarette/Vaping Use: Never Used Patient Interested in Nicotine Replacement: No Second Hand Smoke Exposure: No Use of substances other than those prescribed or required for medical reasons: No Substance Use Type: Prescription Drugs and Caffiene Spiritism Healthcare Practices: Mandaeism Advance Directives: Yes Advance Directives on File: Yes Advance Directives Date on File: 02/08/22 Recently lost weight without trying: Yes How much weight loss: 24-33 pounds Eating poorly because of decreased appetite: Yes Nutrition screen score: 6 Nutrition Risks: No Nutritional Risk Patient : No service: No Sexual orientation: Straight/Heterosexual Meds Allergies Allergy/AdvReac Type Severity Reaction Status Date / Time adhesive AdvReac Unknown Verified 10/27/24 14:25 aspirin AdvReac Unknown Verified 10/27/24 14:25 epinephrine AdvReac Unknown Verified 10/27/24 14:25 Active Medications: Current Medications Acetaminophen (Acetaminophen 325 Mg Tablet) 650 mg PO Q6H PRN PRN Reason: Pain, Mild 1-3,fever,headache Calcium Carbonate (Calcium Carbonate 750 Mg Tab.Chew) 750 mg PO Q4H PRN PRN Reason: Heartburn Ceftriaxone Sodium (Ceftriaxone Sodium 1 Gm Vial) 1 gm IVPUSH Q24H HAJA Clonidine HCl (Clonidine Hcl 0.1 Mg Tablet) 0.1 mg PO BID PRN; Protocol PRN Reason: Anxiety Dabigatran (Dabigatran Etexilate Mesylate 150 Mg Capsule) 150 mg PO BID HAJA Lamotrigine (Lamotrigine 25 Mg Tablet) 50 mg PO DAILY HAJA Lamotrigine (Lamotrigine 25 Mg Tablet) 50 mg PO BEDTIME HAJA Magnesium Hydroxide (Milk Of Magnesia 30 Ml Oral.Susp) 30 ml PO DAILY PRN PRN Reason: Constipation Melatonin (Melatonin 3 Mg Tablet) 6 mg PO BEDTIME PRN PRN Reason: Insomnia Olanzapine (Olanzapine 7.5 Mg Tablet) 15 mg PO BEDTIME [facility] Sodium Chloride (0.9 % Sodium Chloride Flush 3 Ml Syringe) 3 ml IVFLUSH [facility] Last Admin: 10/28/24 01:15 Dose: 3 ml Home Medications ?Medication ?Instructions ?Recorded ?Confirmed ?Last Taken ?Type aripiprazole 10 mg tablet 10 mg PO DAILY 10/28/24 Unknown History atorvastatin 10 mg tablet 10 mg PO BEDTIME 10/28/24 Unknown History clonidine HCl 0.1 mg tablet 0.1 mg PO BID PRN anxiety 10/28/24 Unknown History divalproex 250 mg tablet,extended 250 mg PO DAILY 10/28/24 Unknown History release 24 hr divalproex 500 mg tablet,extended 500 mg PO BEDTIME 10/28/24 Unknown History release 24 hr hydroxyzine HCl 25 mg tablet 25 mg PO DAILY PRN anxiety 10/28/24 Unknown History lamotrigine 100 mg tablet 50 mg PO BID 10/28/24 Unknown History pantoprazole 40 mg tablet,delayed 40 mg PO QAM 10/28/24 Unknown History release Physical Exam 2 Vital Signs: Vital Signs: Last Vital Signs Temp 97.4 F 10/28/24 07:47 Pulse 70 10/28/24 07:47 Resp 18 10/28/24 07:47 BP 136/67 10/28/24 07:47 Pulse Ox 96 10/28/24 07:47 O2 Del Method Room Air 10/28/24 07:47 BMI result Body Mass Index 22.4 Const: General: comfortable and no acute distress O rientation/consciousness: patient oriented x3 HEENT: Other: Unremarkable Head: Yes normal to inspection Neck: Neck: Yes normal visual inspection Chest: Chest palpation & inspection: normal inspection of the chest Resp: Auscultation: clear to auscultation bilaterally Cardio: Palpation: normal PMI Heart sounds: S1 normal heart sound present, S2 normal heart sound present, no gallops, Murmur heart sound present systolic II/ and at the right sternal border and no rubs GI: Palpation (GI): Soft to palpation Back/Spine/Pelvis: Other: unremarkable Skin: General skin exam: no rashes or lesions noted Neuro: General: patient oriented x3 Extrem: General: Yes normal to inspection Psych: Mental Status: mental status grossly normal Objective Labs and Meds 10/28/24 06:15 10/28/24 06:15 Lab results: Laboratory Results - last 24 hr 10/27/24 10/27/24 10/27/24 17:52 17:54 18:55 WBC 7.3 RBC 4.05 L Hgb 12.9 Hct 35.5 L MCV 87.7 MCH 31.9 MCHC 36.3 H RDW 13.1 Plt Count 216 MPV 10.1 Immature Gran % (Auto) 0.4 Neut % (Auto) 69.3 Lymph % (Auto) 18.1 L [place] % (Auto) 9.7 Eos % (Auto) 1.8 Baso % (Auto) 0.7 Lymph # (Auto) 1.3 [place] # (Auto) 0.7 Eos # (Auto) 0.1 Baso # (Auto) 0.1 Abs Immat Gran (auto) 0.03 Absolute Neuts (auto) 5.1 Absolute Nucleated RBC 0.000 Nucleated RBC % (auto) 0.0 Sodium 131 L Potassium 3.7 Chloride 99 Carbon Dioxide 22 Anion Gap 14 BUN 10 Creatinine 0.59 Estim Creat Clear Calc 67.8 Estimated GFR > 60 Random Glucose 105 Lactic Acid 1.0 Calcium 9.2 Total Bilirubin 0.5 Direct Bilirubin 0.2 AST 27 ALT 16 Alkaline Phosphatase 60 Ammonia 47 Troponin I High Sens 76.6 H* D Total Protein 7.0 Albumin 4.0 Urine Color Yellow Urine Appearance Clear Urine pH 7.5 Ur Specific [place] <= 1.005 Urine Protein Negative Urine Glucose (UA) Negative Urine Ketones Negative Urine Blood Trace H Urine Nitrite Positive H Ur Leukocyte Esterase Large (3+) H Urine RBC 0-2 Urine WBC >50 H Ur Squamous Epith Cells 0-2 Urine Bacteria 4+ Hyaline Casts 0-2 10/27/24 10/27/24 10/28/24 19:53 21:49 06:15 WBC 7.6 RBC 4.10 L Hgb 13.1 Hct 36.0 L MCV 87.8 MCH 32.0 MCHC 36.4 H RDW 13.0 Plt Count 212 MPV 10.6 Immature Gran % (Auto) Neut % (Auto) Lymph % (Auto) [place] % (Auto) Eos % (Auto) Baso % (Auto) Lymph # (Auto) [place] # (Auto) Eos # (Auto) Baso # (Auto) Abs Immat Gran (auto) Absolute Neuts (auto) Absolute Nucleated RBC 0.000 Nucleated RBC % (auto) 0.0 Sodium 133 L Potassium 3.5 Chloride 104 Carbon Dioxide 21 L Anion Gap 12 BUN 11 Creatinine 0.59 Estim Creat Clear Calc 67.8 Estimated GFR > 60 Random Glucose 139 H Lactic Acid Calcium 8.7 Total Bilirubin Direct Bilirubin AST ALT Alkaline Phosphatase Ammonia Troponin I High Sens 92.5 H* 86.9 H* Total Protein Albumin Urine Color Urine Appearance Urine pH Ur Specific [place] Urine Protein Urine Glucose (UA) Urine Ketones Urine Blood Urine Nitrite Ur Leukocyte Esterase Urine RBC Urine WBC Ur Squamous Epith Cells Urine Bacteria Hyaline Casts ECG Interpretation: EKG with sinus rhythm and left bundle-branch block pattern. Similar to prior. Assessment and Plan (1) Fall: Status: Acute (2) Dizziness: Status: Acute (3) Elevated troponin: Status: Acute Plan Per patient description, fall seems mechanical and not true syncope. Otherwise, she describes rather vertigo than anything truly cardiogenic. There is slight elevation troponins but flat. That could be demand related. Underlying CAD possible at her age. However, she has got no overt angina. Telemetry is unremarkable. We will review the echocardiogram once completed. Otherwise, no specific cardiac interventions at this time and she will need to establish care with [facility] in [place] for future cardiology care. Procedures Date of Service Date of Service: 10/28/24
[2024-10-28] MEDS: Dabigatran Etexilate Mesylate 150 MG CAPSULE PO ×2 (10:45→20:03)
[2024-10-28] MEDS: lamoTRIgine 25 MG TABLET 50 MG PO ×2 (10:45→20:03)
[2024-10-28] MEDS: cloNIDine HCL 0.1 MG TABLET PO (10:46)
--- NOTE | 2024-10-28 10:48 | MHC.CM.PN ---
IMM 10/28/24, Pt lives alone in elderly housing complex. She has a nurse from [facility] that comes 2 times a week. She does not use home health aid, is independent with ADL's. For DME, she uses a wheeled walker, and has grab bars in bathroom. PCP confirmed: Morgan Ochoa, HCP on file lists: Herminio and [facility], pt. said this is an old HCP and she now has a new one, naming her dtr: Sara Guidry, copy requested. Pt. will need assistance with transport home at [place]. DCP: home, resume VNA services. Cm to follow for DC needs.
--- NOTE | 2024-10-28 12:39 | PHA.MEDREC ---
Addendum entered by Darrin Acevedo RP 10/28/24 13:40: Med rec was reviewed by [facility]. Addendum entered by Bolivar Mendez 10/28/24 13:30: We got a call back from [facility] and spoke with Van head marketing program manager of the VNA's over there, who had a list they used to confirm the patient is taking Olanzapine 5mg at bedtime and Pantoprazole 40mg tabs once in the morning. They did not have any claims for Lamotrigine, Clonazepam or Hydroxyzine at their facility; I took off the Lamotrigine and Hydroxyzine and kept the Clonazepam since the patient confirmed she still takes that. Addendum entered by Darrin Acevedo [facility] 10/28/24 12:46: Med rec was reviewed by [facility]. Original Note: Pharmacy Consult ? Medication Reconciliation Pharmacy has completed the medication reconciliation. Spoke with patient and she was able to confirm most of her medications. Patient did not remember if she was taking Lamotrigine, Olanzapine and Pantoprazole. Patient confirmed she has a nurse, Mayda from [facility]; I called and left them a voicemail to call us back. I also called the patients daughter, Sara and left a voicemail to see if she knows her moms medications. Will have PM team follow up with patients daughter or [facility].
--- NOTE | 2024-10-28 13:55 | MHC.CM.PN ---
Pt to transfer to [facility] for acute care treatment there.
--- NOTE | 2024-10-28 17:18 | P.PNIM_ITS ---
Subjective Subjective Date of Service: 10/28/24 Interval History: seen in f/u for near syncope, fall. H as an pace maker No bradycardia noted Physical Exam 2 Vital Signs: Vital Signs: Last Vital Signs Temp 99.1 F 10/28/24 16:00 Pulse 72 10/28/24 16:00 Resp 18 10/28/24 16:00 BP 136/65 10/28/24 16:00 Pulse Ox 96 10/28/24 16:00 O2 Del Method Room Air 10/28/24 16:00 BMI result Body Mass Index 22.4 General: AO X 3, no acute distress Resp: CTA bilateral CVS: S1,S2,RRR GI: +BS, NT, no distention Skin: No rash Neuro: motor grossly intact Psych: appropriate affect Objective Data Active Medications Acetaminophen (Acetaminophen 325 Mg Tablet) 650 mg PO Q6H PRN PRN Reason: Pain, Mild 1-3,fever,headache Calcium Carbonate (Calcium Carbonate 750 Mg Tab.Chew) 750 mg PO Q4H PRN PRN Reason: Heartburn Ceftriaxone Sodium (Ceftriaxone Sodium 1 Gm Vial) 1 gm IVPUSH Q24H [facility]JA Clonidine HCl (Clonidine Hcl 0.1 Mg Tablet) 0.1 mg PO BID PRN; Protocol PRN Reason: Anxiety Last Admin: 10/28/24 10:46 Dose: 0.1 mg Documented By: CHRISTOPH Dabigatran (Dabigatran Etexilate Mesylate 150 Mg Capsule) 150 mg PO BID [facility] Last Admin: 10/28/24 10:45 Dose: 150 mg Documented By: CHRISTOPH Lamotrigine (Lamotrigine 25 Mg Tablet) 50 mg PO DAILY [facility] Last Admin: 10/28/24 10:45 Dose: 50 mg Documented By: CHRISTOPH Lamotrigine (Lamotrigine 25 Mg Tablet) 50 mg PO BEDTIME [facility] Magnesium Hydroxide (Milk Of Magnesia 30 Ml Oral.Susp) 30 ml PO DAILY PRN PRN Reason: Constipation Melatonin (Melatonin 3 Mg Tablet) 6 mg PO BEDTIME PRN PRN Reason: Insomnia Olanzapine (Olanzapine 7.5 Mg Tablet) 15 mg PO BEDTIME [facility] Sodium Chloride (0.9 % Sodium Chloride Flush 3 Ml Syringe) 3 ml IVFLUSH QSHIFT [facility] Last Admin: 10/28/24 10:50 Dose: 3 ml Documented By: CHRISTOPH Labs 10/28/24 06:15 10/28/24 06:15 Labs: Laboratory Results - last 24 hr 10/27/24 10/27/24 10/27/24 17:52 17:54 18:55 MCV 87.7 MCH 31.9 MCHC 36.3 H RDW 13.1 Plt Count 216 MPV 10.1 Immature Gran % (Auto) 0.4 Neut % (Auto) 69.3 Lymph % (Auto) 18.1 L [place] % (Auto) 9.7 Eos % (Auto) 1.8 Baso % (Auto) 0.7 Lymph # (Auto) 1.3 [place] # (Auto) 0.7 Eos # (Auto) 0.1 Baso # (Auto) 0.1 Abs Immat Gran (auto) 0.03 Absolute Neuts (auto) 5.1 Absolute Nucleated RBC 0.000 Nucleated RBC % (auto) 0.0 Anion Gap 14 Estim Creat Clear Calc 67.8 Estimated GFR > 60 Random Glucose 105 Lactic Acid 1.0 Calcium 9.2 Total Bilirubin 0.5 Direct Bilirubin 0.2 AST 27 ALT 16 Alkaline Phosphatase 60 Ammonia 47 Total Protein 7.0 Albumin 4.0 Urine Color Yellow Urine Appearance Clear Urine pH 7.5 Ur Specific [place] <= 1.005 Urine Protein Negative Urine Glucose (UA) Negative Urine Ketones Negative Urine Blood Trace H Urine Nitrite Positive H Ur Leukocyte Esterase Large (3+) H Urine RBC 0-2 Urine WBC >50 H Ur Squamous Epith Cells 0-2 Urine Bacteria 4+ Hyaline Casts 0-2 10/28/24 06:15 MCV 87.8 MCH 32.0 MCHC 36.4 H RDW 13.0 Plt Count 212 MPV 10.6 Immature Gran % (Auto) Neut % (Auto) Lymph % (Auto) [place] % (Auto) Eos % (Auto) Baso % (Auto) Lymph # (Auto) [place] # (Auto) Eos # (Auto) Baso # (Auto) Abs Immat Gran (auto) Absolute Neuts (auto) Absolute Nucleated RBC 0.000 Nucleated RBC % (auto) 0.0 Anion Gap 12 Estim Creat Clear Calc 67.8 Estimated GFR > 60 Random Glucose 139 H Lactic Acid Calcium 8.7 Total Bilirubin Direct Bilirubin AST ALT Alkaline Phosphatase Ammonia Total Protein Albumin Urine Color Urine Appearance Urine pH Ur Specific [place] Urine Protein Urine Glucose (UA) Urine Ketones Urine Blood Urine Nitrite Ur Leukocyte Esterase Urine RBC Urine WBC Ur Squamous Epith Cells Urine Bacteria Hyaline Casts Microbiology Microbiology Results: Microbiology 10/27/24 Unknown Urine Culture - Preliminary Urine clean catch - Clean Catch Midstream Gram negative caryn Assessment and Plan (1) Acute UTI: Status: Acute (2) Fall: Status: Acute Plan The patient was admitted overnight with no evidence of arrhythmia. Troponin I levels were mildly elevated but flat, at 92 and 96, suggesting no acute ischemic event. She received IV fluids for hydration. No bradycardia noted here Cardiology was consulted, and pacemaker interrogation was performed with the following findings and recommendations: * Echocardiogram shows severe left ventricular dysfunction with LVEF of 27% and [id number] aortic stenosis. * Pacemaker reached Elective Replacement Indicator (SANJAY) approximately one year ago. There is no clear evidence of an asystolic event to explain her symptoms. * EP (Electrophysiology) evaluation is recommended for device replacement, with consideration for upgrading to a biventricular device due to severe LV dysfunction. * Ischemic evaluation is also indicated. For further management, she will be transferred to [facility] for EP and ischemic workup. For UTI, treated with ceftriaxone and dc with Ceftin 250 mg bid for 5 days, culture not yet available Awaiting for transfer bed Quality Stroke Does the patient have a stroke diagnosis?: No VTE Prior VTE?: No VTE Risk Level:: Medical - moderate - high VTE Device Contraindication: Treatment Not Indicated VTE Drug Contraindication: N/A - Med Ordered
[2024-10-28] MEDS: cefTRIAXone sodium 1 GM VIAL IVPUSH (17:41)
[2024-10-28] MEDS: OLANZapine 7.5 MG TABLET 15 MG PO (20:03)
[2024-10-29] VITALS: BP 127/60; PULSE 66; RESP 16; TEMP 36.2; O2SAT 94
[2024-10-29 04:00] VITALS: BP 113/62; PULSE 87; RESP 16; TEMP 36.3; O2SAT 95
[2024-10-29 07:47] VITALS: BP 131/74; PULSE 71; RESP 17; TEMP 36.6; O2SAT 95
[2024-10-29] MEDS: Dabigatran Etexilate Mesylate 150 MG CAPSULE PO (08:21)
[2024-10-29] MEDS: 0.9 % Sodium Chloride Flush 3 ML SYRINGE IVFLUSH ×2 (08:21→15:22)
[2024-10-29] MEDS: lamoTRIgine 25 MG TABLET 50 MG PO (08:21)
[2024-10-29 09:37] VITALS: BP 131/74
[2024-10-29] MEDS: cloNIDine HCL 0.1 MG TABLET PO (09:37)
--- NOTE | 2024-10-29 09:54 | PM.PNCARD ---
Subjective Subjective Date of Service: 10/29/24 Interval history: Patient states she feels okay. No new cardiac concerns. Review of Systems Review of Systems Yes all other systems are reviewed and are negative Constitutional: Reports as per HPI and Reports no additional constitutional complaints Eyes: Reports as per HPI and Denies no additional eye complaints Denies system reviewed and no additional complaints, except as documented and Reports as per HPI Cardiovascular: Reports as per HPI, Reports no additional cardiovascular complaints, Denies acrocyanosis, Denies cool extremities, Denies chest pain, Denies leg edema, Denies lightheadedness, Denies palpitations and Denies dyspnea Respiratory: Reports as per HPI, Denies no additional respiratory complaints and Denies dyspnea Gastrointestinal: Reports as per HPI and Denies no additional gastrointestinal complaints Genitourinary: Reports as per HPI Musculoskeletal: Reports no additional musculoskeletal complaints and Reports as per HPI Skin/Breast: Reports system reviewed and no additional complaints, except as docu Reports system reviewed and no additional complaints, except as documented and Reports as per HPI Psychiatric: Reports no additional psychiatric complaints and Reports as per HPI Endocrine: Reports no additional endocrine complaints, Reports as per HPI and Denies palpitations Hematologic/Lymphatic: Reports no additional hematologic/lymphatic complaints and Reports as per HPI Allergic/Immunologic: Reports no additional allergic/immunologic complaints and Reports as per HPI Physical Exam Vital Signs: Last Vital Signs Temp 97.9 F 10/29/24 07:47 Pulse 71 10/29/24 07:47 Resp 17 10/29/24 07:47 BP 131/74 10/29/24 09:37 Pulse Ox 95 10/29/24 07:47 O2 Del Method Room Air 10/29/24 07:47 BMI result Body Mass Index 22.4 Const General: comfortable and no acute distress Orientation/consciousness: patient oriented x3 HEENT Other: Unremarkable Head: Yes normal to inspection Neck Neck: Yes normal visual inspection Chest Chest palpation & inspection: normal inspection of the chest Resp Auscultation: clear to auscultation bilaterally Cardio Palpation: normal PMI Heart sounds: S1 normal heart sound present, S2 normal heart sound present, no gallops, no murmurs and no rubs GI Palpation (GI): Soft to palpation Back/Spine/Pelvis Other: unremarkable Skin General skin exam: no rashes or lesions noted Neuro General: patient oriented x3 Extrem General: Yes normal to inspection Psych Mental Status: mental status grossly normal Objective Labs and Meds 10/28/24 06:15 10/28/24 06:15 Progress Note: A&P Assessment and plan (1) Cardiomyopathy: Status: Acute Assessment and Plan: Echocardiogram yesterday with LVEF of 27%. This is somewhat similar to a prior echocardiogram from [facility] in June. Clinically, she has no overt heart failure symptoms or signs. Low-grade troponins are likely from demand. She has no clear evidence of ACS otherwise. She needs ischemic evaluation. May need a diagnostic catheterization. Beyond that, GDMT as outpt. (2) Pacemaker generator end of life: Status: Acute Assessment and Plan: Device was checked yesterday and it appears that the replacement date was reached in November 2023. This needs to be addressed by EP. Due to severe LV dysfunction, she may need rather biventricular ICD. EP to see and decide. Plan Requested [facility] bed for transfer as today. Still pending. Time Spent With Patient Time: Total time managing care of this patient today ____ minutes. Progress Note: Quality Stroke Does the patient have a stroke diagnosis?: No Procedures Date of Service Date of Service: 10/29/24
[2024-10-29 12:00] VITALS: BP 107/64; PULSE 64; RESP 18; TEMP 36.7; O2SAT 94
--- NOTE | 2024-10-29 12:07 | HO.PM.IMPN ---
Subjective Subjective Date of Service: 10/29/24 Interval History: seen and evalauted feels stable, no reported overnight events plan to transfer to [facility] when be available Review of Systems Review of Systems: Yes all other systems are reviewed and are negative Physical Exam Vital Signs: Vital Signs: Last Vital Signs Temp 98.1 F 10/29/24 12:00 Pulse 64 10/29/24 12:00 Resp 18 10/29/24 12:00 BP 107/64 10/29/24 12:00 Pulse Ox 94 10/29/24 12:00 O2 Del Method Room Air 10/29/24 12:00 BMI result Body Mass Index 22.4 Const: Other: Constitutional : interactive, not in distress Cardiovascular : no JVP, no lower extremity edema, PPM in place Respiratory : bilateral chest movement, not in resp distress Gastrointestinal: soft, lax, Non tender Skin : Warm, Dry Neurological : Alert & oriented , No focal deficit Objective Data Active Medications Acetaminophen (Acetaminophen 325 Mg Tablet) 650 mg PO Q6H PRN PRN Reason: Pain, Mild 1-3,fever,headache Calcium Carbonate (Calcium Carbonate 750 Mg Tab.Chew) 750 mg PO Q4H PRN PRN Reason: Heartburn Ceftriaxone Sodium (Ceftriaxone Sodium 1 Gm Vial) 1 gm IVPUSH Q24H [facility] Last Admin: 10/28/24 17:41 Dose: 1 gm Documented By: MEAGHAN Clonidine HCl (Clonidine Hcl 0.1 Mg Tablet) 0.1 mg PO BID PRN; Protocol PRN Reason: Anxiety Last Admin: 10/29/24 09:37 Dose: 0.1 mg Documented By: MATTHEW Dabigatran (Dabigatran Etexilate Mesylate 150 Mg Capsule) 150 mg PO BID [facility] Last Admin: 10/29/24 08:21 Dose: 150 mg Documented By: CORKY Lamotrigine (Lamotrigine 25 Mg Tablet) 50 mg PO DAILY [facility] Last Admin: 10/29/24 08:21 Dose: 50 mg Documented By: CORKY Lamotrigine (Lamotrigine 25 Mg Tablet) 50 mg PO BEDTIME [facility] Last Admin: 10/28/24 20:03 Dose: 50 mg Documented By: HERBER Magnesium Hydroxide (Milk Of Magnesia 30 Ml Oral.Susp) 30 ml PO DAILY PRN PRN Reason: Constipation Melatonin (Melatonin 3 Mg Tablet) 6 mg PO BEDTIME PRN PRN Reason: Insomnia Olanzapine (Olanzapine 7.5 Mg Tablet) 15 mg PO BEDTIME [facility] Last Admin: 10/28/24 20:03 Dose: 15 mg Documented By: ANDDENVER Sodium Chloride (0.9 % Sodium Chloride Flush 3 Ml Syringe) 3 ml IVFLUSH QSHIFT [facility] Last Admin: 10/29/24 08:21 Dose: 3 ml Documented By: RIOSCEL Labs 10/28/24 06:15 10/28/24 06:15 Microbiology Microbiology Results: Microbiology 10/27/24 Unknown Urine Culture - Final Urine clean catch - Clean Catch Midstream Klebsiella pneumoniae 10/27/24 18:56 Blood Culture - Preliminary Blood - Venous No growth after 24 hours. 10/27/24 18:55 Blood Culture - Preliminary Blood - Venous No growth after 24 hours. Assessment and Plan (1) Pacemaker generator end of life: Status: Acute (2) Cardiomyopathy: Status: Acute (3) Fall: Status: Acute Plan The patient was admitted overnight with no evidence of arrhythmia. Troponin I levels were mildly elevated but flat, at 92 and 96, suggesting no acute ischemic event. She received IV fluids for hydration. No bradycardia noted here Cardiology was consulted, and pacemaker interrogation was performed with the following findings and recommendations: Echocardiogram shows severe left ventricular dysfunction with LVEF of 27% and [id number] aortic stenosis. Pacemaker reached Elective Replacement Indicator (SANJAY) approximately one year ago. There is no clear evidence of an asystolic event to explain her symptoms. EP (Electrophysiology) evaluation is recommended for device replacement, with consideration for upgrading to a biventricular device due to severe LV dysfunction. Ischemic evaluation is also indicated. For further management, she will be transferred to [facility] for EP and ischemic workup. For UTI, treated with ceftriaxone and dc with Ceftin 250 mg bid for 5 days, culture not yet available Awaiting for transfer bed Quality Stroke Does the patient have a stroke diagnosis?: No VTE Prior VTE?: No VTE Risk Level:: Medical - moderate - high VTE Device Contraindication: Treatment Not Indicated VTE Drug Contraindication: N/A - Med Ordered
--- NOTE | 2024-10-29 13:17 | PM.DS ---
DS: Providers Provider Date of Service: 10/29/24 Date of admission: 10/27/24 22:36 Date of discharge: 10/29/24 Primary care physician: Josiah Mora MD Consults: 10/27/24 17:19 ED CARE Team Crisis Consult Stat Comment: Reason for consultation: Patient got section for unsafe at home confusion Has provider been notified: No 10/28/24 05:42 Consult to Cardiology Routine Consulting Provider: [facility] Reason for consultation: elevated troponins DS: Diagnosis Discharge Diagnosis (1) Dizziness: Status: Acute DS: Summary Hospital Course Hospital Course: Chief Complaint: Fall: 79-year-old female with a past medical history of HTN, HLD, COPD, PTSD, anxiety, depression, history of cardiac pacemaker, TIA, mitral valve prolapse, hyperparathyroidism, osteopenia, pulmonary nodule, history of syncope; history of dual chamber pacemaker on left side that is due for replacement. She presented to the hospital today with a chief complaint of fall. Patient reports that she was walking on the side of a with her walker, suddenly tripped and fell. Denies any loss of consciousness. Patient denied any head strike to me. But reported head strike to the ER physician. Denies any chest pain or palpitations. Denies any nausea or vomiting. After she came home she was speaking to her psychologist over the phone-who suggested to go to the ER for further evaluation. Patient denies any numbness tingling or focal weakness. Denies any urinary symptoms. Reports having chills. Hospital course: The patient was admitted overnight with no evidence of arrhythmia. Troponin I levels were mildly elevated but flat, at 92 and 96, suggesting no acute ischemic event. She received IV fluids for hydration. Cardiology was consulted, and pacemaker interrogation was performed with the following findings and recommendations: Echocardiogram shows severe left ventricular dysfunction with LVEF of 27% and [id number] aortic stenosis. Pacemaker reached Elective Replacement Indicator (SANJAY) approximately one year ago. There is no clear evidence of an asystolic event to explain her symptoms. EP (Electrophysiology) evaluation is recommended for device replacement, with consideration for upgrading to a biventricular device due to severe LV dysfunction. Ischemic evaluation is also indicated. For further management, she will be transferred to [facility] for EP and ischemic workup. For UTI, treated with ceftriaxone and dc with Ceftin 250 mg bid for 5 days, culture not yet available Time Attestation Discharge Coordination Time (in mins): 40 Quality: Safe Use of Opioids Does Pt have an Active Cancer Diagnosis on the Problem List?: No Quality: Stroke Does the patient have a stroke diagnosis?: No Physical Exam Vital Signs: Vital Signs: Selected Entries 10/29/24 15:42 Temperature 98.4 F Pulse Rate 67 Respiratory Rate 17 Blood Pressure 133/74 Pulse Oximetry 95 DS: Data Data Completed and Pending Completed studies during hospitalization [Text1]: Procedures Isolation (11/24/21) Labs on day of discharge: Laboratory Results - last 24 hr 10/27/24 10/27/24 10/27/24 17:52 17:54 18:55 WBC 7.3 RBC 4.05 L Hgb 12.9 Hct 35.5 L MCV 87.7 MCH 31.9 MCHC 36.3 H RDW 13.1 Plt Count 216 MPV 10.1 Immature Gran % (Auto) 0.4 Neut % (Auto) 69.3 Lymph % (Auto) 18.1 L [place] % (Auto) 9.7 Eos % (Auto) 1.8 Baso % (Auto) 0.7 Lymph # (Auto) 1.3 [place] # (Auto) 0.7 Eos # (Auto) 0.1 Baso # (Auto) 0.1 Abs Immat Gran (auto) 0.03 Absolute Neuts (auto) 5.1 Absolute Nucleated RBC 0.000 Nucleated RBC % (auto) 0.0 Sodium 131 L Potassium 3.7 Chloride 99 Carbon Dioxide 22 Anion Gap 14 BUN 10 Creatinine 0.59 Estim Creat Clear Calc 67.8 Estimated GFR > 60 Random Glucose 105 Lactic Acid 1.0 Calcium 9.2 Total Bilirubin 0.5 Direct Bilirubin 0.2 AST 27 ALT 16 Alkaline Phosphatase 60 Ammonia 47 Troponin I High Sens 76.6 H* D Total Protein 7.0 Albumin 4.0 Urine Color Yellow Urine Appearance Clear Urine pH 7.5 Ur Specific [place] <= 1.005 Urine Protein Negative Urine Glucose (UA) Negative Urine Ketones Negative Urine Blood Trace H Urine Nitrite Positive H Ur Leukocyte Esterase Large (3+) H Urine RBC 0-2 Urine WBC >50 H Ur Squamous Epith Cells 0-2 Urine Bacteria 4+ Hyaline Casts 0-2 10/27/24 10/27/24 10/28/24 19:53 21:49 06:15 WBC 7.6 RBC 4.10 L Hgb 13.1 Hct 36.0 L MCV 87.8 MCH 32.0 MCHC 36.4 H RDW 13.0 Plt Count 212 MPV 10.6 Immature Gran % (Auto) Neut % (Auto) Lymph % (Auto) [place] % (Auto) Eos % (Auto) Baso % (Auto) Lymph # (Auto) [place] # (Auto) Eos # (Auto) Baso # (Auto) Abs Immat Gran (auto) Absolute Neuts (auto) Absolute Nucleated RBC 0.000 Nucleated RBC % (auto) 0.0 Sodium 133 L Potassium 3.5 Chloride 104 Carbon Dioxide 21 L Anion Gap 12 BUN 11 Creatinine 0.59 Estim Creat Clear Calc 67.8 Estimated GFR > 60 Random Glucose 139 H Lactic Acid Calcium 8.7 Total Bilirubin Direct Bilirubin AST ALT Alkaline Phosphatase Ammonia Troponin I High Sens 92.5 H* 86.9 H* Total Protein Albumin Urine Color Urine Appearance Urine pH Ur Specific [place] Urine Protein Urine Glucose (UA) Urine Ketones Urine Blood Urine Nitrite Ur Leukocyte Esterase Urine RBC Urine WBC Ur Squamous Epith Cells Urine Bacteria Hyaline Casts Preliminary micro results at discharge 10/27/24 Unknown Urine Culture - Preliminary Urine clean catch - Clean Catch Midstream Gram negative caryn Discharge Plan Discharge Anticipated Discharge Date/Time: 10/28/24 13:19 Patient Disposition: Xfer Acute Care Hospital Discharge Diagnosis: UTI, Pre syncope Referrals: Jorge Mora MD [Primary Care Provider] - 1 Week Discharge Medications: New cefuroxime axetil 250 mg tablet 250 mg PO BID 5 Days Qty: 10 0RF Continued clonazepam 0.5 mg tablet 0.5 mg PO BID PRN (Reason: anxiety attack) 15 Days Qty: 30 0RF Rx Instructions: [facility] states she has not [facility] since 11/22/23 for 30d supply dabigatran etexilate [Pradaxa] 150 mg Capsule 150 mg PO BID 30 Days Qty: 60 0RF clonidine HCl 0.1 mg tablet 0.1 mg PO BID PRN (Reason: anxiety) atorvastatin 10 mg tablet 10 mg PO BEDTIME pantoprazole 40 mg tablet,delayed release (DR/EC) 40 mg PO DAILY@0630 divalproex 500 mg tablet extended release 24 hr 500 mg PO BEDTIME aripiprazole 10 mg tablet 10 mg PO DAILY divalproex 250 mg tablet extended release 24 hr 250 mg PO DAILY olanzapine 5 mg tablet 5 mg PO BEDTIME Discharge Orders: Discharge Order (Routine); Ordered 10/28/24 Ordered By: Balta Kern Diet: Advance to usual diet Activity on Discharge: As tolerated Stand Alone Forms: Patient Portal Discharge page Print Language: Danish Care Plan Goals: To [facility] for assessment for pace maker replacment in light of near syncope and fall with pace maker Health Concerns: Near syncope Plan of Treatment: Transfer to [facility] for pace maker replacement Assessment: see above Discharge Date/Time: 10/29/24 18:09
[2024-10-29] MEDS: ALPRAZolam 0.25 MG TABLET 0.125 MG PO (15:22)
[2024-10-29 15:42] VITALS: BP 133/74; PULSE 67; RESP 17; TEMP 36.9; O2SAT 95
[2024-10-29] MEDS: cefTRIAXone sodium 1 GM VIAL IVPUSH (17:11)
== END 2024-10-29 18:09 | disposition short-term general hospital (02) | DRG 690 ==
LOC: HO.ED 21:50 → HO.EDOVER 22:43 → HO.IMC 10-28 00:53
PROVIDERS: Admitting Provider Hospitalist; Emergency Provider Emergency Medicine Emergency Medical Services; PCP Internal Medicine; Visit Provider Student in an Organized Health Care Education/Training Program
DX: N39.0 Urinary tract infection, site not specified (principal); E21.3 Hyperparathyroidism, unspecified; I35.0 Nonrheumatic aortic (valve) stenosis; Z86.73 Personal history of transient ischemic attack (TIA), and cerebral infarction without residual deficits; W19.XXXA Unspecified fall, initial encounter; F17.210 Nicotine dependence, cigarettes, uncomplicated; Z45.02 Encounter for adjustment and management of automatic implantable cardiac defibrillator; Z71.6 Tobacco abuse counseling; Z79.01 Long term (current) use of anticoagulants; Z79.899 Other long term (current) drug therapy
CPT/HCPCS: 36415; 70450; 71250; 72125; 74176; 80048; 80076; 81001; 82140; 83605; 84484; 85025; 85027; 87040; 87086; 87088; 87186; 93005; 93306; 97161; 99285; J0696; Q9957; S9485

== ENCOUNTER → 2024-10-27 17:17 | Outpatient (BNV) | payer MEDICARE, MEDICAID, SELFPAY | PROVIDERS: Emergency Provider Emergency Medicine Emergency Medical Services; PCP Internal Medicine; Visit Provider Radiology Diagnostic Radiology | DX: R10.9 Unspecified abdominal pain (principal); R07.89 Other chest pain; M54.2 Cervicalgia | CPT/HCPCS: 70450; 71250; 72125; 74176 ==

== ENCOUNTER 2024-10-27 22:36 | Outpatient (BNV) | payer MEDICARE, MEDICAID, SELFPAY | END 2024-10-28 07:00 | PROVIDERS: Admitting Provider Hospitalist; Emergency Provider Emergency Medicine Emergency Medical Services; PCP Internal Medicine; Visit Provider Internal Medicine | DX: I50.32 Chronic diastolic (congestive) heart failure (principal) | CPT/HCPCS: 93306 ==

== ENCOUNTER → 2024-10-27 22:36 | Outpatient (BNV) | payer MEDICARE, MEDICAID, SELFPAY | PROVIDERS: Admitting Provider Hospitalist; Emergency Provider Emergency Medicine Emergency Medical Services; PCP Internal Medicine; Visit Provider Internal Medicine | DX: R42 Dizziness and giddiness (principal); W19.XXXA Unspecified fall, initial encounter; R79.89 Other specified abnormal findings of blood chemistry | CPT/HCPCS: 93010; 99223 ==

== ENCOUNTER → 2024-10-27 22:36 | Outpatient (BNV) | payer MEDICARE, MEDICAID, SELFPAY | PROVIDERS: Admitting Provider Hospitalist; Emergency Provider Emergency Medicine Emergency Medical Services; PCP Internal Medicine; Visit Provider Internal Medicine | DX: N39.0 Urinary tract infection, site not specified (principal); I42.9 Cardiomyopathy, unspecified; W19.XXXA Unspecified fall, initial encounter; Z45.010 Encounter for checking and testing of cardiac pacemaker pulse generator [battery] | CPT/HCPCS: 99223; 99232; 99239; 99499 ==

== ENCOUNTER → 2024-12-25 13:14 | Outpatient (BNV) | payer MEDICARE, MEDICAID, SELFPAY | PROVIDERS: Admitting Provider Clinical Nurse Specialist Psychiatric/Mental Health, Adult; Emergency Provider Emergency Medicine; PCP Internal Medicine; Visit Provider Internal Medicine Cardiovascular Disease | DX: R94.31 Abnormal electrocardiogram [ECG] [EKG] (principal); Z95.0 Presence of cardiac pacemaker | CPT/HCPCS: 93010 ==

== ENCOUNTER 2024-12-25 13:31 | Outpatient (BNV) | payer MEDICARE, MEDICAID, SELFPAY | END 2024-12-30 18:47 | PROVIDERS: Admitting Provider Clinical Nurse Specialist Psychiatric/Mental Health, Adult; Emergency Provider Emergency Medicine; PCP Internal Medicine; Visit Provider Radiology Diagnostic Radiology | DX: R90.82 White matter disease, unspecified (principal) | CPT/HCPCS: 70450 ==

== ENCOUNTER 2024-12-25 13:31 | Outpatient (BNV) | payer MEDICARE, MEDICAID, SELFPAY | END 2025-03-05 17:00 | PROVIDERS: Admitting Provider Clinical Nurse Specialist Psychiatric/Mental Health, Adult; Emergency Provider Emergency Medicine; PCP Internal Medicine; Visit Provider Internal Medicine | DX: I35.0 Nonrheumatic aortic (valve) stenosis (principal) | CPT/HCPCS: 93306 ==

== ENCOUNTER 2024-12-25 13:31 | Outpatient (BNV) | payer MEDICARE, MEDICAID, SELFPAY | END 2025-01-18 11:12 | PROVIDERS: Admitting Provider Clinical Nurse Specialist Psychiatric/Mental Health, Adult; Emergency Provider Emergency Medicine; PCP Internal Medicine; Visit Provider Radiology Diagnostic Radiology | DX: G31.9 Degenerative disease of nervous system, unspecified (principal) | CPT/HCPCS: 70450 ==

== ENCOUNTER 2024-12-25 13:31 | Outpatient (BNV) | payer MEDICARE, SELFPAY | END 2025-06-24 15:28 | PROVIDERS: Admitting Provider Clinical Nurse Specialist Psychiatric/Mental Health, Adult; Emergency Provider Emergency Medicine; PCP Internal Medicine; Visit Provider Radiology Diagnostic Radiology | DX: M50.30 Other cervical disc degeneration, unspecified cervical region (principal) | CPT/HCPCS: 72050 ==

== ENCOUNTER → 2024-12-25 13:31 | Outpatient (BNV) | payer MEDICARE, MEDICAID, SELFPAY | PROVIDERS: Admitting Provider Clinical Nurse Specialist Psychiatric/Mental Health, Adult; Emergency Provider Emergency Medicine; PCP Internal Medicine; Visit Provider Nurse Practitioner Family | DX: I42.9 Cardiomyopathy, unspecified (principal) | CPT/HCPCS: 99222 ==

== ENCOUNTER → 2024-12-25 13:31 | Outpatient (BNV) | payer MEDICARE, MEDICAID, SELFPAY | PROVIDERS: Admitting Provider Clinical Nurse Specialist Psychiatric/Mental Health, Adult; Emergency Provider Emergency Medicine; PCP Internal Medicine; Visit Provider Internal Medicine | DX: Z01.810 Encounter for preprocedural cardiovascular examination (principal); Z45.018 Encounter for adjustment and management of other part of cardiac pacemaker; I35.0 Nonrheumatic aortic (valve) stenosis; I25.10 Atherosclerotic heart disease of native coronary artery without angina pectoris; I42.8 Other cardiomyopathies | CPT/HCPCS: 99223; 99499 ==

== ENCOUNTER → 2024-12-25 13:31 | Outpatient (BNV) | payer MEDICARE, MEDICAID, SELFPAY | PROVIDERS: Admitting Provider Clinical Nurse Specialist Psychiatric/Mental Health, Adult; Emergency Provider Emergency Medicine; PCP Internal Medicine; Visit Provider Psychiatry & Neurology Psychiatry | DX: F31.9 Bipolar disorder, unspecified (principal); F43.10 Post-traumatic stress disorder, unspecified; I42.9 Cardiomyopathy, unspecified | CPT/HCPCS: 99232 ==

== ENCOUNTER → 2024-12-25 13:31 | Outpatient (BNV) | payer MEDICARE, MEDICAID, SELFPAY | PROVIDERS: Admitting Provider Clinical Nurse Specialist Psychiatric/Mental Health, Adult; Emergency Provider Emergency Medicine; PCP Internal Medicine; Visit Provider Clinical Nurse Specialist Psychiatric/Mental Health, Adult | DX: F31.4 Bipolar disorder, current episode depressed, severe, without psychotic features (principal); R45.851 Suicidal ideations; F43.11 Post-traumatic stress disorder, acute | CPT/HCPCS: 90792; 99231; 99232 ==